=== PATIENT | female | born 1950 | race Caucasian/White ===

== ENCOUNTER 2023-06-01 16:39 | Emergency (ER) | payer MEDICARE, SELFPAY ==
[2023-06-01 16:40] VITALS: BP 101/60; PULSE 58; RESP 16; TEMP 36.3; O2SAT 100; BMI 22.3
[2023-06-01] MEDS: 0.9% Normal Saline (1000mL) 1,000 ML 1000 ML IV (17:50)
[2023-06-01] MEDS: Ondansetron 4 MG/2 ML Vial IV (17:50)
[2023-06-01 17:52] LABS: Absolute Lymphocyte Count 0.53 X10^3/uL (0.83-4.51); Absolute Neutrophil Count 3.1 X10^3/uL (2.0-7.7); Basophil# 0.01 X10^3/uL; Basophil% 0.2 % (0-1); Hematocrit 34.2 % (37-47); Hemoglobin 10.6 g/dL (12.0-15.0); Lymphocyte # 0.53 X10^3/ul (0.83-4.51); Lymphocyte % 12.7 % (19-41); Mean Corpuscular Hgb 27.1 pg (27.0-32.0); Mean Corpuscular Volume 87.5 fL (81-99); Mean Platelet Vol. 10.2 fl (6.2-12.0); Monocyte# 0.51 X10^3/uL; Monocyte% 12.2 % (0-10); NRBC Flagged by Analyzer 0 % (0-5); Neutrophil # 3.11 X10^3/uL (2.7-7.7); Neutrophil % 74.4 % (47-70); POSITIVE DIFFERENTIAL YES; Platelet Count 150 K/mm3 (150-450); RBC Distribution Width CV 15.6 % (11.6-14.6); RBC Distribution Width SD 49.9 fl (35.1-43.9); Red Blood Count 3.91 M/mm3 (4.2-5.4); White Blood Count 4.2 K/mm3 (4.4-11.0)
[2023-06-01 18:02] LABS: Differential Indicated SCAN CRITERIA MET
--- NOTE | 2023-06-01 18:07 | EX.ED.DYSGE1 ---
HPI History of Present Illness Chief Complaint: General Illness Narrative Narrative: Patient presents with nausea vomiting and some epigastric discomfort. This patient does have a history of metastatic ovarian cancer. He was diagnosed and surgery done about 4 years ago. She was on chemotherapy and then maintenance therapy. When the maintenance was stopped the cancer came back about a year later. She has now been on chemotherapy again and the last was about 3 weeks ago. She has not had a history of nausea and vomiting with chemo. She was feeling well until about 11:00 this afternoon. She ate some lunch. She then vomited. Initially it was some food since then she has vomited about 4 more times it has just been liquid. No blood. No diarrhea. She has some epigastric discomfort with this. She had an episode of this about a week or so ago but it was only 1 episode. Her and her also state that she occasionally gets things like this where she will get epigastric discomfort which she describes as indigestion she will vomit once and then symptoms go away. The difference is that she has vomited multiple times with this. She has not had any fever and that something that they check and watch for. She has no chest pain or trouble breathing. She has no urinary symptoms. No back or flank pain. No history of pancreatitis.. Patient has had total hysterectomy but has not had appendectomy or cholecystectomy by history. [facility] Medical History Breast cancer Ovarian cancer Home Medications atorvastatin 10 mg tablet 10 mg PO DAILY 06/01/23 [History Last Taken Unknown] ramipril 10 mg capsule 10 mg PO DAILY 06/01/23 [History Last Taken Unknown] Allergy/AdvReac Type Severity Reaction Status Date / Time Penicillins Allergy Mild Hives Verified 06/01/23 16:43 Sulfa (Sulfonamide Allergy Mild Hives Verified 06/01/23 16:43 Antibiotics) Family History Mother Cancer Father Rheumatoid arthritis Surgical History H/O mastectomy History of radical hysterectomy Social History household members: spouse housing: house Smoking Status: Never smoker ROS ROS ED ROS Narrative A complete review of systems was performed and is negative except as documented in the history of present illness. Some specific details below. Constitutional: No recent fevers or chills. She does not overall feel ill. EYE: No visual complaints or pain. ENT: No difficulty swallowing. No swelling. No pain. She is not having GERD symptoms. CV: No chest pain or palpitations. Respiratory: No dyspnea. No hemoptysis. No difficulty taking breaths. GI: Please see history of present illness. : No frequency dysuria or hematuria. Musculoskeletal: No recent trauma. No pains. Skin: No rash. Nondiaphoretic. Neuro: No weakness or numbness. Endocrine: No polyuria or polydipsia. EXAM Physical Exam Narrative Exam Narrative: CONSTITUTIONAL: Patient is nontoxic in appearance. The patient looks comfortable. HEENT: No notable trauma. Mucous membranes are minimally dry. No thrush. EYES: No conjunctival injection. No proptosis. No icterus. CARDIOVASCULAR: Regular rate. Regular rhythm. No notable murmur. No JVD. RESPIRATORY: No respiratory distress. Breathing is unlabored. No wheezes. No rhonchi. No rales. No pain with a deep breath. GASTROINTESTINAL: Question just mildly distended. Bowel sounds are normal. Very mild epigastric tenderness. Little bit of tenderness in the lower abdomen and possible fullness but she states it hurts a little bit more pressing in the upper abdomen. No guarding. No rebound. No palpable mass. No bruit. GENITOURINARY: No tenderness over the bladder. No CVA tenderness. MUSCULOSKELETAL: Atraumatic. No peripheral edema. No cord. No tenderness along the deep venous system. No asymmetry. NEUROLOGICAL: Patient is alert and appropriate. No focal deficit noted. SKIN: No noted rashes. No diaphoresis. PSYCHIATRIC: Patient is calm. Mood is appropriate. Const Vital Signs: 06/01/23 16:40 06/01/23 17:03 06/01/23 20:51 Temperature 97.3 F L Temperature Source Temporal Pulse Rate 58 L 75 Respiratory Rate 16 16 Respiratory Pattern Normal Blood Pressure 101/60 Blood Pressure Mean 73 Pulse Ox 100 97 Oxygen Delivery Method Room Air Room Air MDM MDM MDM Narrative Medical decision making narrative: My independent interpretation CT of her abdomen shows distended stomach and what looks to be volvulus. This is consistent with final read. Patient has NG placed. She is given Zosyn. Since his CBC shows mildly low white count hemoglobin but normal platelets. Electrolytes show slight high BUN and creatinine. She is given IV fluids here. Glucose is minimally up at 120. Liver function test showed just slight elevations of ALT and alkaline phosphatas. lipase is normal. Urinalysis shows no sign of infection. Our surgeon came down talk with the patient. Patient would prefer to go to [facility] where her surgeons and care have been. I was able to talk to Dr. Rivera on for colorectal surgeon who is excepted the patient. We did discuss the need to somewhat expedite this. Otherwise if we cannot get her up there soon we may have to do surgery here. I went to call them again and we had just gotten a bed for the patient. We are checking to see how long and transport will be. New My independent interpretation of the patient's x-ray done after NG tube shows good placement and final reading is similar. Lab Data Attestation: I reviewed the patient's lab results. Labs: Laboratory Results - last 24 hr 06/01/23 06/01/23 17:43 19:04 WBC 4.2 L RBC 3.91 L Hgb 10.6 L Hct 34.2 L MCV 87.5 MCH 27.1 MCHC 31.0 L RDW Std Deviation 49.9 H RDW Coeff of [place]y 15.6 H Plt Count 150 MPV 10.2 Immature Gran % (Auto) 0.500 Neut % (Auto) 74.4 H Lymph % (Auto) 12.7 L [place] % (Auto) 12.2 H Eos % (Auto) 0.0 Baso % (Auto) 0.2 Absolute Neuts (auto) 3.1 Absolute Lymphs (auto) 0.53 L Nucleated RBC % 0 Differential Comment SEE COMMENT Diff Path Review May foll Platelet Estimate ADEQUATE RBC Morphology N CHROM Anisocytosis RARE Ovalocytes RARE Sodium 137 Potassium 4.3 Chloride 107 Carbon Dioxide 23.0 Anion Gap 7 BUN 37 H Creatinine 1.08 H Estim Creat Clear Calc 39.46 Est GFR (MDRD) Af Amer 64 Est GFR (MDRD) Non-Af 53 L BUN/Creatinine Ratio 34.3 H Glucose 120 H Calcium 9.6 Total Bilirubin 0.60 AST 33 ALT 166 H Alkaline Phosphatase 135 H Total Protein 7.9 Albumin 3.9 Globulin 4.0 Albumin/Globulin Ratio 1.0 Lipase 30 Urine Color Yellow Urine Clarity Sl. Cloudy Urine pH 5.0 Ur Specific [place] 1.020 Urine Protein 30 H Urine Glucose (UA) Normal Urine Ketones 50 H Urine Occult Blood Negative Urine Nitrite Negative Urine Bilirubin 1 H Urine Urobilinogen Normal Ur Leukocyte Esterase 25 H Urine RBC 0 SEEN Urine WBC 0-5 SEEN Ur Squamous Epith Cells 0 SEEN Urine Bacteria 0 SEEN Hyaline Casts 10-25 SEEN Urine Mucus 0 SEEN Radiography Diagnostic Testing: Clinical Impression(s) from Imaging Studies Abdomen/Pelvis CT 06/01/23 18:30 IMPRESSION: Cecal volvulus. Surgical consultation recommended. Electronically Signed: Dwight Wolfe MD at 19:13 EST Reading Location ID and State: [address] [place] [address] Tel , Service support , ADDENDUM: 06/01/231951 IMPRESSION: Cecal volvulus. Surgical consultation recommended. N.B. : The above Results were Read Back by Dwight Wolfe MD to Ryan Rodriguez MD, and understanding confirmed on 06/01/2023 19:45:42 (ET). Electronically Signed: Dwight Wolfe MD at 19:13 EST Reading Location ID and State: [address] [place] [address] Tel , Service support , KUB X-Ray 06/01/23 20:23 IMPRESSION: Enteric tube in the stomach. Electronically Signed: Dwight Wolfe MD at 20:52 EST Reading Location ID and State: [address] [place] [address] Tel , Service support , Discharge Plan Triage Chief Complaint: General Illness ED Provider: Ryan Rodriguez Dx/Rx/DC Orders Clinical Impression: Cecal volvulus, Hx of ovarian cancer, Nausea & vomiting Prescriptions: No Action ramipril 10 mg capsule 10 mg PO DAILY atorvastatin 10 mg tablet 10 mg PO DAILY Primary Care Provider: Shay Cardoza Referrals: Shay Cardoza MD [Primary Care Provider] - Disposition Disposition: Acute Care Hospital Discharge Location: [facility]
[2023-06-01 18:08] LABS: AST(SGOT) 33 U/L (15-37); Alanine Aminotransfer ALT/SGPT 166 U/L (13-56); Albumin, Serum 3.9 g/dL (3.2-5.0); Alkaline Phosphatase 135 U/L (45-117); Anion Gap 7 (5-15); BUN 37 mg/dL (7-18); BUN/Creat Ratio 34.3 RATIO (10-20); Calcium,Total 9.6 mg/dL (8.5-10.1); Chloride 107 mmol/L (98-107); Creatinine, Serum 1.08 mg/dL (0.55-1.02); EST Glomerular Filtration Rate 53 mL/min (>60); Est Glom Filt Rate - Afr Amer 64 mL/min (>60); Estimated Creatinine Clearance 39.46 ml/min; Glucose 120 mg/dL (74-106); Lipase 30 U/L (13-75); Potassium 4.3 mmol/L (3.5-5.1); Protein, Total 7.9 g/dL (6.4-8.2); Sodium Level 137 mmol/L (136-145)
[2023-06-01 18:28] LABS: Anisocytosis RARE; Ovalocyte RARE; Platelet Estimate ADEQUATE (ADEQ); Red Cell Morphology N CHROM NORMAL (NORM C&C)
--- NOTE | 2023-06-01 18:30 | CT_ITS ---
We are attempting to reach an attending provider to discuss findings. An addendum with communication details will be sent when the communication is complete. STUDY: CT ABDOMEN AND PELVIS WITH CONTRAST REASON FOR EXAM: Female, 73 years old. pain, ovarian cancer Hx RADIATION DOSAGE (If Supplied By Facility): CTDIvol = ( 8.82 ) mGy, DLP = ( 412.75 ) mGycm TECHNIQUE: Transaxial images were obtained from the dome of the diaphragm to the symphysis pubis without oral contrast. IV 100mL Isovue-300 was administered. Sagittal and coronal images were reconstructed. Individualized dose optimization techniques were used for this CT. COMPARISON: None. FINDINGS: The visualized lung bases are unremarkable. The visualized portions of the heart are within normal limits. Normal liver. Gallbladder appears distended. No radiodense gallstones are gallbladder wall thickening. Normal spleen. Normal pancreas. Normal bilateral adrenal glands. Normal right kidney. Normal left kidney. Normal visualized stomach. Normal small intestine. Cecal volvulus. Marked distention of the cecum measuring 8.3 cm in diameter. Appendix is not identified. Normal abdominal aorta. Normal inferior vena cava. Normal retroperitoneum. Normal urinary bladder. Normal abdominal wall. Grade 1 spondylolisthesis L4-5. Vacuum disc phenomena L5-S1. CT/Abdomen/Pelvis W IV Cont ONLY IMPRESSION: Cecal volvulus. Surgical consultation recommended. Electronically Signed: Dwight Wolfe MD at 19:13 EST ,
[2023-06-01 19:09] LABS: Bacteria 0 SEEN /hpf (None Seen); Mucous, Urine 0 SEEN /hpf (<or=2+); Red Blood Cells-Urine 0 SEEN /hpf (0-5); Squamous Epithelial Cells - UA 0 SEEN /hpf (5-10)
[2023-06-01 19:10] LABS: Color, Urine Yellow (Yellow); Glucose, Dipstick Normal (Normal); Ketone-Dipstick 50 mg/dl (Negative); Leukocyte Esterase-Dipstick 25 /ul (Negative); Nitrite-Dipstick Negative (Negative); Occult Blood-Urine Negative /ul (Negative); Protein-Dipstick 30 mg/dl (Negative); Urine Clarity Sl. Cloudy (Clear); Urine Urobilinogen Normal (Normal)
[2023-06-01] MEDS: Morphine 4 MG/ML Syringe IV (19:12)
[2023-06-01 19:13] LABS: Urine Bilirubin Dipstick 1 mg/dL (Negative)
[2023-06-01 19:21] LABS: Hyaline Cast 10-25 SEEN /lpf (0-5); White Blood Cells 0-5 SEEN /hpf (0-5)
[2023-06-01] MEDS: Oxymetazoline 0.05% 1 SPRAY SPRAY.BTL 2 SPRAY NASAL (20:14)
--- NOTE | 2023-06-01 20:14 | CON.PCM.SX_ITS ---
Assessment & Plan Assessment/Plan (1) Cecal volvulus: PLAN: I saw and examined the patient. CT scan revealed a cecal volvulus. The patient has very complicated as she is currently undergoing chemotherapy for recurrent ovarian cancer. She was told she will be on chemotherapy the rest of her life. The patient does have a distended stomach on CT scan and they are placing an NG tube and starting antibiotics. I am attempting to transfer her back to [facility] where she has the rest of her care. She would be a difficult surgery especially if there were adhesions to the pelvis. I also explained that I would unlikely reconnect her as she is actively getting chemotherapy and she may require an ileostomy bag. I also explained that she would be at increased risk of wound complication and infection due to her im munosuppression. Patient is requesting transfer to [facility] and I concur. I will try to arrange for ER to ER transfer but I did explain that she would have to have surgical removal of this area. Patient understands and all questions were answered. If transfer is not able to be done in a timely fashion I would have to take her for exploratory laparotomy with right hemicolectomy here. I explained that I would likely place retention sutures and perform ileostomy due to her immunosuppression. Evan Maradiaga MD Pager: [facility] [address] [place] [address], [address] [place] [address] Office: HPI Consult Data Date of Consult: 06/01/23 HPI Narrative HPI Narrative: ROB HOGUE, is a 73 F who presents with right lower quadrant pain. Patient s tarted vomiting this morning and has had several episodes of vomiting. The patient's pain is reported on the right side. The patient is currently undergoing chemotherapy for recurrent ovarian cancer. Her last treatment was 3 weeks ago. She sees her oncologist on and her surgeon on Wednesday of this week at [facility]. [facility] Medical History Breast cancer Ovarian cancer Home Medications atorvastatin 10 mg tablet 10 mg PO DAILY 06/01/23 [History Last Taken Unknown] ramipril 10 mg capsule 10 mg PO DAILY 06/01/23 [History Last Taken Unknown] Allergy/AdvReac Type Severity Reaction Status Date / Time Penicillins Allergy Mild Hives Verified 06/01/23 16:43 Sulfa (Sulfonamide Allergy Mild Hives Verified 06/01/23 16:43 Antibiotics) Family History Mother Cancer Father Rheumatoid arthritis Surgical History H/O mastectomy History of radical hysterectomy Social History household members: spouse housing: house Smoking Status: Never smoker ROS Constitutional Constitutional: Reports anorexia; Denies chills or fatigue Eyes Eyes: Denies change in vision ENT HEENT: Denies abnormal hearing Cardiovascular Cardiovascular: Denies chest pain Respiratory/Chest Respiratory/Chest: Denies cough or dyspnea Gastrointestinal Gastrointestinal: Reports abdominal pain, nausea and vomiting; Denies coffee ground emesis or rectal bleeding Genitourinary Genitourinary: Denies change in urinary stream Musculoskeletal Musculoskeletal: Denies abnormal gait Integumentary Integumentary: Denies new lesions Neurologic Neurologic: Denies abnormal gait Psychiatric Psychiatric: Denies anxiety Endocrine Endocrinology: Denies heat intolerance Physical Exam Const alert and oriented x3 HEENT normocephalic Eyes PERRL Lymph Lymphatic: no lymphadenopathy noted Resp normal respiratory effort Cardio Rate: regular rate Rhythm: regular rhythm GI soft to palpation Inspection: abdominal distention Palpation: tender RLQ and RUQ Extremity normal to inspection Lab / Micro Data 06/01/23 17:43 06/01/23 17:43 Labs: Laboratory Results - last 24 hr 06/01/23 17:43: WBC 4.2 L, RBC 3.91 L, Hgb 10.6 L, Hct 34.2 L, MCV 87.5, MCH 27.1, MCHC 31.0 L, RDW Std Deviation 49.9 H, RDW Coeff of Corky 15.6 H, Plt Count 150, MPV 10.2, Immature Gran % (Auto) 0.500, Neut % (Auto) 74.4 H, Lymph % (Auto) 12.7 L, [place] % (Auto) 12.2 H, Eos % (Auto) 0.0, Baso % (Auto) 0.2, Absolute Neuts (auto) 3.1, Absolute Lymphs (auto) 0.53 L, Nucleated RBC % 0, Differential Comment SEE COMMENT, Diff Path Review May foll, Platelet Estimate ADEQUATE, RBC Morphology N CHROM, Anisocytosis RARE, Ovalocytes RARE, Sodium 137, Potassium 4.3, Chloride 107, Carbon Dioxide 23.0, Anion Gap 7, BUN 37 H, Creatinine 1.08 H, Estim Creat Clear Calc 39.46, Est GFR (MDRD) Af Amer 64, Est GFR (MDRD) Non-Af 53 L, BUN/Creatinine Ratio 34.3 H, Glucose 120 H, Calcium 9.6, Total Bilirubin 0.60, AST 33, ALT 166 H, Alkaline Phosphatase 135 H, Total Protein 7.9, Albumin 3.9, Globulin 4.0, Albumin/Globulin Ratio 1.0, Lipase 30 06/01/23 19:04: Urine Color Yellow, Urine Clarity Sl. Cloudy, Urine pH 5.0, Ur Specific [place] 1.020, Urine Protein 30 H, Urine Glucose (UA) Normal, Urine Ketones 50 H, Urine Occult Blood Negative, Urine Nitrite Negative, Urine Bilirubin 1 H, Urine Urobilinogen Normal, Ur Leukocyte Esterase 25 H, Urine RBC 0 SEEN, Urine WBC 0-5 SEEN, Ur Squamous Epith Cells 0 SEEN, Urine Bacteria 0 SEEN, Hyaline Casts 10-25 SEEN, Urine Mucus 0 SEEN Imagaing Radiology Impression Abdomen/Pelvis CT 06/01/23 18:30 IMPRESSION: Cecal volvulus. Surgical consultation recommended. Electronically Signed: Dwight Wolfe MD at 19:13 EST Reading Location ID and State: [facility] / [place] Tel , Service support , ADDENDUM: 06/01/231951 IMPRESSION: Cecal volvulus. Surgical consultation recommended. N.B. : The above Results were Read Back by Dwight Wolfe MD to Ryan Rodriguez MD, and understanding confirmed on 06/01/2023 19:45:42 (ET). Electronically Signed: Dwight Wolfe MD at 19:13 EST ,
--- NOTE | 2023-06-01 20:23 | RAD_ITS ---
STUDY: X-RAY - ABDOMEN/PELVIS REASON FOR EXAM: Female, 73 years old. ng tube -- KUB with both diaphragms for NG/OG Verification TECHNIQUE: Single AP view of the abdomen / pelvis. COMPARISON: None. FINDINGS: Normal visualized lung bases. Gas-filled loops of bowel. Lower abdomen not included within the [id number]. No free air. Tube in the stomach. The visualized liver, spleen and kidneys are grossly normal in size and morphology. Normal soft tissue structures. Normal visualized osseous structures. RAD/Abdomen Single View (Portable) IMPRESSION: Enteric tube in the stomach. Electronically Signed: Dwight Wolfe MD at 20:52 EST ,
[2023-06-01] MEDS: Piperacil/Tazobactam 4.5 GM in 0.9% Normal Saline (100mL MB+) 100 ML IV (20:50)
[2023-06-01 20:51] VITALS: PULSE 75; RESP 16; O2SAT 97
[2023-06-01 22:00] VITALS: PULSE 65; RESP 12; O2SAT 98
[2023-06-02 01:26] VITALS: BP 135/86; PULSE 72; RESP 17; O2SAT 99
--- NOTE | 2023-06-02 02:14 | NURSING ---
ORIGINALLY SET UP TRANSPORT WITH [facility] AND THEY OUTSOURCED THE RIDE TO [facility] WITH A 2AM ETA P/U. AT 0205 [facility] CALLED AND STATED THEY HAD TO CANCEL OUR TRIP DUE TO ISSUES WITH ONE OF THEIR EMT'S. I CALLED [facility] BACK AND SET UP TRANSPORT AND WAS GIVEN A 7AM ETA FOR [facility].
[2023-06-02 02:26] VITALS: BP 126/78; PULSE 67; RESP 15; O2SAT 96
[2023-06-02 06:00] VITALS: BP 125/68; PULSE 71; RESP 15; O2SAT 95
[2023-06-02 07:24] VITALS: BP 125/68; PULSE 71; RESP 15; TEMP 36.6; O2SAT 95
[2023-06-03 08:45] LABS: Pathologist Review Reviewed
== END 2023-06-02 07:52 | disposition short-term general hospital (02) ==
PROVIDERS: Emergency Provider Emergency Medicine; PCP Family Medicine; Visit Provider Emergency Medicine
DX: K56.2 Volvulus (principal); C56.9 Malignant neoplasm of unspecified ovary; R11.2 Nausea with vomiting, unspecified; Z79.899 Other long term (current) drug therapy
CPT/HCPCS: 36591; 74018; 74177; 80053; 81001; 83690; 85025; 96361; 96365; 96375; 99283; J7030; J7050; Q9967; A4216; J2405

== ENCOUNTER 2024-11-03 09:17 | Outpatient (CLI) | payer MEDICARE, OTHER, SELFPAY ==
[2024-11-03 09:45] VITALS: BP 106/57; PULSE 69; RESP 16; TEMP 36.5; O2SAT 100; BMI 18.1
[2024-11-03 10:15] VITALS: BP 107/54; PULSE 65; RESP 16; TEMP 36.8
[2024-11-03 11:19] VITALS: BP 107/59; PULSE 65; RESP 16; TEMP 36.6; O2SAT 100
== END 2024-11-03 23:59 | disposition home or self-care (01) ==
PROVIDERS: PCP Family Medicine; Referring Provider Internal Medicine Hematology & Oncology; Visit Provider Internal Medicine Hematology & Oncology
DX: D50.0 Iron deficiency anemia secondary to blood loss (chronic) (principal)
CPT/HCPCS: 36430; 86850; 86900; 86901; 86920; 86922; P9016; A4216

== ENCOUNTER 2024-11-28 11:03 | Outpatient (CLI) | payer MEDICARE, OTHER, SELFPAY ==
[2024-11-28 11:29] VITALS: BP 115/60; PULSE 74; RESP 16; TEMP 36.1; O2SAT 100; BMI 18.1
[2024-11-28 11:53] VITALS: BP 107/67; PULSE 65; RESP 16; TEMP 36.2; O2SAT 99
[2024-11-28 12:53] VITALS: BP 111/57; PULSE 61; RESP 16; TEMP 36.1; O2SAT 98
[2024-11-28 13:40] VITALS: BP 115/59; PULSE 65; RESP 16; TEMP 36.1; O2SAT 98
== END 2024-11-28 23:59 | disposition home or self-care (01) ==
PROVIDERS: PCP Family Medicine; Referring Provider Internal Medicine Hematology & Oncology; Visit Provider Internal Medicine Hematology & Oncology
DX: D50.0 Iron deficiency anemia secondary to blood loss (chronic) (principal)
CPT/HCPCS: 36430; 86850; 86900; 86901; P9016

== ENCOUNTER 2025-01-07 15:10 | Emergency (ER) | payer MEDICARE, OTHER, SELFPAY ==
[2025-01-07 15:11] VITALS: BP 123/54; PULSE 56; RESP 16; TEMP 36; O2SAT 100; BMI 18.8
--- NOTE | 2025-01-07 15:20 | CT_ITS ---
PROCEDURE: ABDOMEN/PELVIS W IV CONT ONLY 01/07/2025 REASON FOR EXAM: ABDOMINAL PAIN AND VOMITING TECHNIQUE: ABDOMEN/PELVIS W IV CONT ONLY Coronal and Sagittal reconstruction series were provided. CONTRAST: Isovue 370 VOLUME: 75 mL One or more dose reduction techniques were used (e.g., Automated exposure control, adjustment of the mA and/or kV according to patient size, use of iterative reconstruction technique. RADIATION DOSE SUMMARY: CTDlvol: 6.4 mGy DLP: 331 mGycm COMPARISON: CT abdomen and pelvis 06/01/2023 FINDINGS: Lung bases: Unremarkable Liver: Unremarkable Gallbladder: No radiodense stones. There is trace pericholecystic fluid. Spleen: Unremarkable Pancreas: Normal size without evidence of mass surrounding inflammation or ductal dilation. Adrenals: Bilateral thickening without discrete nodularity Kidneys: No hydronephrosis or stone. Subcentimeter hypodensities in both kidneys are too small to characterize. Bladder: Circumferential wall thickening Reproductive Organs: Prior hysterectomy. Adnexal regions are unremarkable. Bowel: Postoperative changes of the colon. There are loops of bowel in the lower abdomen measuring up to 4.0 cm in diameter and containing fecalized contents, favored to represent small bowel loops. There is wall thickening of the near entirety of the collapsed bowel loops. Lymph nodes: No suspicious lymph node enlargement. Vasculature: Moderate diffuse atherosclerotic calcifications are noted. Peritoneum / Retroperitoneum: No definite extraluminal or free air. Free fluid is present throughout the abdomen and pelvis Bones: Grade 1 anterolisthesis of L4 on L5, unchanged. Multilevel degenerative changes of the spine. Soft tissues: Postoperative changes of the midline abdominal wall CT/Abdomen/Pelvis W IV Cont ONLY IMPRESSION: 1. Dilated loops of bowel in the lower abdomen, favored to represent small bow el, and worrisome for small bowel obstruction. Recommend Surgical consultation. 2. Free fluid throughout the abdomen and pelvis, which may be reactive and/or malignant. 3. Trace pericholecystic fluid is likely related to extension of ascites as th ere are no radiodense stones or significant gallbladder wall thickening. The critical information above was relayed directly by me by telephone to Ben Hayes on 01/07/2025 at 5:17 pm with readback verification. Reading Location: [id number]
--- NOTE | 2025-01-07 15:21 | EKG12_ITS ---
Test Reason : GENERAL Blood Pressure : */* mmHG Vent. Rate : 75 BPM Atrial Rate : 75 BPM P-R Int : 112 ms QRS Dur : 78 ms QT Int : 386 ms P-R-T Axes : -19 47 63 degrees QTcB Int : 431 ms Normal sinus rhythm Normal ECG Confirmed by Pablo Fong ([id number]), book or script editor BRANDON ESPANA ([id number]) on 01/09/2025 1:12:42 PM Referred By: Ben Hayes Confirmed By: Pablo Fong
--- NOTE | 2025-01-07 15:22 | EDS_ITS ---
HPI History of Present Illness Chief Complaint: Nausea/Vomiting Detail of Chief Complaint: Abdominal pain and vomiting Informant: patient and spouse/S.O. Narrative Narrative: Patient presents with abdominal pain in the epigastric region that started this morning. Patient's had 4 episodes of emesis that was green to yellow in color. She denies any blood in the emesis. She denies blood in her stool or black tarry stool. Patient currently being treated for colon cancer with daily oral chemotherapy. Patient has history a year ago of a bowel obstruction that really resolved with conservative measures and did not require any surgical intervention. Patient states that she has not had any type of surgical intervention for her colon cancer. She denies urinary symptoms. She denies fever. Patient also with prior history of ovarian cancer and history of breast cancer [facility] Medical History Breast cancer Ovarian cancer Home Medications ?Medication ?Instructions ?Recorded ?Last Taken ?Type olaparib 150 mg tablet (Lynparza) 300 mg PO BID Unknown History sennosides 8.6 mg-docusate sodium 2 tab-cap PO QDAY MI N constipation 11/03/24 Unknown History 50 mg tablet (Senexon-S) omeprazole 40 mg capsule,delayed 40 mg PO DAILY Unknown History release Allergy/AdvReac Type Severity Reaction Status Date / Time Penicillins Allergy Mild Hives Verified 11/28/24 11:28 Sulfa (Sulfonamide Allergy Mild Hives Verified 11/28/24 11:28 Antibiotics) Family History Mother Cancer Father Rheumatoid arthritis Surgical History H/O mastectomy History of radical hysterectomy Social History household members: spouse housing: house Smoking Status: Never smoker ROS ROS ED Review of Systems ROS Unobtainable: other Constitutional Constitutional ED: Reports lethargy; Denies chills, fever(s), sweats or weight loss Eyes Eyes: Denies blurry vision, change in vision or diplopia ENT ENT ED: Denies rhinorrhea or sore throat Cardiovascular Cardiovascular: Denies chest pain, orthopnea or racing heartbeat Respiratory/Chest Respiratory/Chest: Denies cough, dyspnea, dyspnea on exertion, orthopnea or sputum Gastrointestinal Gastrointestinal: Reports abdominal pain, nausea and vomiting; Denies diarrhea Genitourinary Genitourinary ED: Denies dysuria, hematuria or urinary frequency Musculoskeletal Musculoskeletal: Denies arthralgias, back pain, myalgias or neck pain Integumentary Denies abscess, Abrasions or rash Neurologic Neurologic: Denies headache(s) or weakness Psychiatric Psychiatric: Denies anxiety, depression or suicidal thoughts Endocrine Endocrinology: Denies polydipsia, polyphagia or polyuria Hematologic/Lymphatic Hematologic/Lymphatic: Denies easy bleeding, easy bruising or lymphadenopathy Allergic/Immunologic Allergic/Immunologic ED: Denies mouth swelling, tongue swelling or urticaria EXAM Physical Exam Const Vital Signs: 01/07/25 15:11 Temperature 96.8 F L Temperature Source Temporal Pulse Rate 56 L Respiratory Rate 16 Blood Pressure 123/54 H Blood Pressure Mean 77 Pulse Ox 100 Oxygen Delivery Method Room Air Positive well nourished and well developed General Appearance ED: well developed and NAD HEENT Reports TM's clear and moist mucous membranes normocephalic and atraumatic; Negative for trauma or tenderness Tympanic Membrane ED: Yes TM's clear Eyes PERRL and EOMs intact bilaterally General Eye ED: Negative for pale conjunctiva or scleral icterus Neck no lymphadenopathy, supple and no JVD General: Negative for tenderness Chest Wall inspection of chest normal and palpation of chest normal Chest: Negative for tenderness Resp normal respiratory effort and clear to auscultation bilaterally Effort and Inspection: Negative for respiratory distress or pain with movement Auscultation: Negative for rhonchi, wheezes or diminished lung sounds Cardio regular rate, regular rhythm, S1 normal heart sound, S2 normal heart sound and no murmurs Peripheral Pulses: pulses 2+ throughout GI soft to palpation, non-distended and no masses; Negative for normal to inspection, nondistended, normoactive bowel sounds GI Narrative: Tenderness to palpation over the epigastric region with some guarding. There is no rebound or rigidity. Slightly diminished bowel sounds Back/Spine no CVA tenderness and no thoracic nor lumbar tenderness Extremity normal to inspection General Extremety ED: Negative for edema General Extremity: Negative for edema Neuro oriented x3, CN's II-XII intact bilaterally, no sensory deficits noted and gait normal Sensorium / Orientation: awake, alert, oriented to person, oriented to place and oriented to time Motor Exam: strength 5/5 throughout and strength abnormal Psych mental status grossly normal Skin no rashes or lesions noted and no wounds MDM MDM MDM Narrative Medical decision making narrative: Patient presents with abdominal pain and vomiting. 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 Patient states that a few months ago she was admitted to [facility] with a small bowel obstruction that resolved with conservative measures. IV line established. Patient was medicated with Zofran. She did not want thing for pain initially. EKG obtained on arrival showed a sinus rhythm with rate of 75 bpm with no acute ST segment changes. CBC with differential shows a white count of 6.3 with hemoglobin 11.2 and platelet count of 128. Chemistry is unremarkable. She had a lactate of less than 1. AST was 34 and ALT 36 with alk phos of 119. Urinalysis unremarkable. CT scan of the abdomen pelvis with IV contrast showed a small bowel obstruction with dilated loops of bowel in the lower abdomen. There was free fluid throughout the abdomen. This may be reactive or malignant. Patient also had trace pericholecystic fluid likely related to extension of ascites as there is no radiodense stones or significant gallbladder wall thickening. I discussed results with patient and her and they would like to be transferred to [facility]. I discussed case with [facility] general surgery who accepted transfer of patient to their facility. They are not sure when they will have a bed available. They were in agreement with placing an NG tube which was done to low intermittent suction. I also spoke with Dr. Cardozo who is on-call for general surgery for our facility. He was made aware of patient's presence in the emergency department and that her requested that she be transferred to [facility] and she has been accepted. It is unclear when they will have a bed available. If she should decompensate or need admission here until transfer to tertiary care center that he would be aware. Lab Data Attestation: I reviewed the patient's lab results. Labs: Laboratory Results - last 24 hr 01/07/25 01/07/25 15:31 15:39 WBC 6.3 RBC 3.77 L Hgb 11.2 L Hct 35.1 L MCV 93.1 MCH 29.7 MCHC 31.9 L RDW Std Deviation 64.5 H RDW Coeff of Corky 18.8 H Plt Count 128 L MPV 10.2 Immature Gran % (Auto) 0.500 Neut % (Auto) 83.7 H Lymph % (Auto) 9.8 L Harlan % (Auto) 5.5 Eos % (Auto) 0.2 Baso % (Auto) 0.3 Absolute Neuts (auto) 5.3 Absolute Lymphs (auto) 0.62 L Nucleated RBC % 0 Sodium 139 Potassium 3.9 Chloride 104 Carbon Dioxide 23.4 Anion Gap 11 BUN 22 H Creatinine 0.70 Estim Creat Clear Calc 47.77 L Est GFR (MDRD) Non-Af 90 BUN/Creatinine Ratio 31.2 H Glucose 120 H Lactic Acid < 1.0 Calcium 9.4 Total Bilirubin 0.55 AST 34 H ALT 36 H Alkaline Phosphatase 119 H Troponin T High Sens 12 Total Protein 7.2 Albumin 4.0 Globulin 3.2 Albumin/Globulin Ratio 1.3 Lipase 23 Urine Color Yellow Urine Clarity Clear Urine pH 7.0 Ur Specific [place] 1.010 Urine Protein 15 H Urine Glucose (UA) Normal Urine Ketones Negative Urine Occult Blood Negative Urine Nitrite Negative Urine Bilirubin Negative Urine Urobilinogen Normal Ur Leukocyte Esterase Negative Urine RBC 0 SEEN Urine WBC 0-5 SEEN Ur Squamous Epith Cells 0-5 SEEN Urine Bacteria 0 SEEN Hyaline Casts 0-5 SEEN Urine Mucus 1+ Radiography Diagnostic Testing: Clinical Impression(s) from Imaging Studies Abdomen/Pelvis CT 01/07/25 15:20 IMPRESSION: 1. Dilated loops of bowel in the lower abdomen, favored to represent small bowel, and worrisome for small bowel obstruction. Recommend Surgical consultation. 2. Free fluid throughout the abdomen and pelvis, which may be reactive and/or malignant. 3. Trace pericholecystic fluid is likely related to extension of ascites as there are no radiodense stones or significant gallbladder wall thickening. The critical information above was relayed directly by me by telephone to Ben Hayes on 01/07/2025 at 5:17 pm with readback verification. Reading Location: [id number] Discharge Plan Triage Chief Complaint: Nausea/Vomiting ED Provider: Ben Hayes Dx/Rx/DC Orders Clinical Impression: Abdominal pain, Small bowel obstruction Prescriptions: No Action sennosides-docusate sodium [Senexon-S] 8.6-50 mg tablet 2 tab-cap PO QDAY PRN (Reason: constipation) Lynparza 150 mg tablet 300 mg PO BID omeprazole 40 mg capsule,delayed release(DR/EC) 40 mg PO DAILY Primary Care Provider: Shay Cardoza Referrals: Shay Cardoza MD [Primary Care Provider] - Print Language: Portuguese Disposition Disposition: DC/Tx to Another Type of HCF
[2025-01-07] MEDS: 0.9% Normal Saline (1000mL) 1,000 ML 125 ML IV (15:38)
[2025-01-07 15:46] LABS: Hematocrit 35.1 % (37-47); Hemoglobin 11.2 g/dL (12.0-15.0); Immature Granulocytes Count 0.030 X10^3/uL (0.0-0.0); Mean Corp Hgb Conc 31.9 g/dL (32-36); Mean Corpuscular Volume 93.1 fL (81-99); Mean Platelet Vol. 10.2 fl (6.2-12.0); NRBC Flagged by Analyzer 0 % (0-5); Platelet Count 128 K/mm3 (150-450); RBC Distribution Width CV 18.8 % (11.6-14.6); RBC Distribution Width SD 64.5 fl (35.1-43.9); Red Blood Count 3.77 M/mm3 (4.2-5.4); White Blood Count 6.3 K/mm3 (4.4-11.0)
--- OUTSIDE RECORDS SUMMARY | 2025-01-07 16:01 | XMS RPT_ITS | CCD ---
Author Organization [facility] Care Team Providers Care Larriman Name Role Phone Shay Cardoza MD Primary Care Provider Justus SOSA, Doreen Unavailable Unavailable Shay Cardoza MD Primary Care Provider Justus SOSA, Doreen Unavailable Unavailable Laura Alfonso RN Unavailable Js Cruz DO Unavailable Fang Cote MD Unavailable Justus SOSA, Doreen Unavailable Unavailable Laura Alfonso RN Unavailable Dr. Shay Cardoza Primary Care Provider Dr. Cristofer Rodriguez Emergency Provider Dr. Saqib Maradiaga Attending Provider Shay Cardoza MD Primary Care Provider Champ Nichols Unavailable Shay Cardoza MD Primary Care Provider Vesna Decker RN Unavailable Unavailaniceto Ravi APRN.Karishma AMAYA Unavailable Bianca Duncan PA-C Unavailable Prachi Cline RN Unavailable Prachi Cline RN Unavailable KAREN VICENTE Admitting Unavailable KAREN VICENTE Attending Unavailable SHAY CARDOZA Primary Care Unavailable ALBERTO COBOS Attending Unavailable WU MOE Referring Unavailable SHAY CARDOZA Primary Care Unavailable MAIK AC Admitting Unavailable MAIK AC Attending Unavailable NANI, SHAY A Primary Care Unavailable YOUNG, CORINNE A Admitting Unavailable YOUNG, CORINNE A Attending Unavailable NANI, SHAY A Primary Care Unavailable YOUNG, CORINNE A Admitting Unavailable YOUNG, CORINNE A Attending Unavailable NANI, SHAY A Primary Care Unavailable YOUNG, CORINNE A Admitting Unavailable YOUNG, CORINNE A Attending Unavailable NANI, SHAY A Primary Care Unavailable NITZ, KAREN Admitting Unavailable NITZ, KAREN Attending Unavailable NANI, SHAY A Primary Care Unavailable NANI, SHAY A Primary Care Unavailable ANTHONY MCLAIN Attending Unavailable NITZ, KAREN Admitting Unavailable NITZ, KAREN Attending Unavailable NANI, SHAY A Primary Care Unavailable Rocael MAYFIELD, Fang Huff Unavailable Raffy SOSA, Marian Unavailable CRISTOFER GUEVARA Attending Unavailable ANUP RAE Admitting Unavailable NANI, SHAY A Primary Care Unavailable FANG COTE Attending Unavailable FANG COTE Consulting Unavailable NANI, SHAY A Primary Care Unavailable SAQIB TAPIA Admitting Unavailable FANG COTE Attending Unavailable NANI, SHAY A Primary Care Unavailable Nani MAYFIELD, Dr. Day Primary Care Provider Eve TERAN, Dr. Benitez Attending Provider Eve TERAN, Dr. Benitez Referring Provider Raffy SOSA, Marian Unavailable Hamidaoble CERTIFIED ORTHOTIST/PEDORTHIST.JOSE LUIS, Karishma Unavailable Bianca Duncan PA-C Unavailable Breonna CERTIFIED ORTHOTIST/PEDORTHIST.JOSE LUIS, Karishma Unavailable Dakota BOUCHER Bianca Unavailable Js Cruz Attending Unavailable Js Cruz Referring Unavailable Shay Cardoza Primary Care Unavailable Js Cruz Referring Unavailable Shay Cardoza Primary Care Unavailable Js Cruz Attending Unavailable SHAY CARDOZA A Primary Care Unavailable MODESTO LAIRD Referring Unavailabl e NANI, SHAY A Primary Care Unavailable MODESTO LAIRD Referring Unavailabl e NANI, SHAY A Primary Care Unavailable MASCI, JS A Attending Unavailable NANI, SHAY A Primary Care Unavailable NANI, SHAY A Primary Care Unavailable MASCI, JS A Referring Unavailable NANI, SHAY A Primary Care Unavailable MASCI, JS A Referring Unavailable NANI, SHAY A Primary Care Unavailable NANI, SHAY A Attending Unavailable NANI, SHAY A Primary Care Unavailable MASCI, JS A Referring Unavailable NANI, SHAY A Primary Care Unavailable MASCI, JS A Referring Unavailable NANI, SHAY A Primary Care Unavailable NANI, SHAY A Primary Care Unavailable MASCI, JS A Referring Unavailable NANI, SHAY A Primary Care Unavailable MASCI, JS A Referring Unavailable NANI, SHAY A Primary Care Unavailable MASCI, JS A Referring Unavailable NANI, SHAY A Primary Care Unavailable MASCI, JS A Referring Unavailable MASCI, JS A Attending Unavailable NANI, SHAY A Primary Care Unavailable MASCI, JS A Referring Unavailable NANI, SHAY A Primary Care Unavailable MASCI, JS A Referring Unavailable NANI, SHAY A Primary Care Unavailable MASCI, JS A Referring Unavailable NANI, SHAY A Primary Care Unavailable MASCI, JS A Referring Unavailable NANI, SHAY A Primary Care Unavailable MASCI, JS A Referring Unavailable NANI, SHAY A Primary Care Unavailable MASCI, JS A Referring Unavailable NANI, SHAY A Primary Care Unavailable KARISHMA FRANZ Referring Unavailable NANI, SHAY A Primary Care Unavailable MASCI, JS A Referring Unavailable MASCI, JS A Attending Unavailable NANI, SHAY A Primary Care Unavailable MASCI, JS A Referring Unavailable NANI, SHAY A Primary Care Unavailable MASCI, JS A Referring Unavailable NANI, SHAY A Primary Care Unavailable MASCI, JS A Referring Unavailable NANI, SHAY A Primary Care Unavailable MASCI, JS A Referring Unavailable NANI, SHAY A Primary Care Unavailable MASCI, JS A Referring Unavailable NANI, SHAY A Primary Care Unavailable MASCI, JS A Referring Unavailable NANI, SHAY A Primary Care Unavailable MASCI, JS A Referring Unavailable NANI, SHAY A Primary Care Unavailable MASCI, JS A Referring Unavailable AMY HERNANDEZ Attending Unavailable NANI, SHAY A Primary Care Unavailable MASCI, JS A Referring Unavailable NANI, SHAY A Primary Care Unavailable MASCI, JS A Referring Unavailable MASCI, JS A Attending Unavailable NANI, SHAY A Primary Care Unavailable MASCI, JS A Referring Unavailable NANI, SHAY A Primary Care Unavailable MASCI, JS A Referring Unavailable NANI, SHAY A Primary Care Unavailable MASCI, JS A Referring Unavailable NANI, SHAY A Primary Care Unavailable MASCI, JS A Referring Unavailable WU MOE Attending Unavailable NANI, SHAY A Primary Care Unavailable NANI, SHAY A Primary Care Unavailable NANI, SHAY A Primary Care Unavailable NANI, SHAY A Primary Care Unavailable NANI, SHAY A Primary Care Unavailable NANI, SHAY A Primary Care Unavailable FANG COTE Referring Unavailable FANG COTE Attending Unavailable NANI, SHAY A Primary Care Unavailable MASCI, JS A Referring Unavailable NANI, SHAY A Primary Care Unavailable MASCI, JS A Referring Unavailable NANI, SHAY A Primary Care Unavailable MASCI, JS A Referring Unavailable KASI WELCH Attending Unavailable MASCI, JS A Referring Unavailable NANI, SHAY A Primary Care Unavailable MASCI, JS A Referring Unavailable NANI, SHAY A Primary Care Unavailable NANI, SHAY A Primary Care Unavailable MASCI, JS A Referring Unavailable NANI, SHAY A Primary Care Unavailable MASCI, JS A Referring Unavailable NANI, SHAY A Primary Care Unavailable MASCI, JS A Referring Unavailable NANI, SHAY A Primary Care Unavailable NANI, SHAY A Primary Care Unavailable NANI, SHAY A Primary Care Unavailable KASI WELCH Referring Unavailable NANI, SHAY A Primary Care Unavailable KASI WELCH Referring Unavailable NANI, SHAY A Primary Care Unavailable MASCI, JS A Referring Unavailable NANI, SHAY A Primary Care Unavailable MASCI, JS A Referring Unavailable NANI, SHAY A Primary Care Unavailable MASCI, JS A Referring Unavailable NANI, SHAY A Primary Care Unavailable MASCI, JS A Referring Unavailable MASCI, JS A Attending Unavailable NANI, SHAY A Primary Care Unavailable MASCI, JS A Referring Unavailable MASCI, JS A Attending Unavailable NANI, SHAY A Primary Care Unavailable NANI, SHAY A Attending Unavailable NANI, SHAY A Primary Care Unavailable MASCI, JS A Referring Unavailable NANI, SHAY A Primary Care Unavailable MASCI, JS A Referring Unavailable NANI, SHAY A Primary Care Unavailable NANI, SHAY A Primary Care Unavailable NANI, SHAY A Primary Care Unavailable NANI, SHAY A Primary Care Unavailable MASCI, JS A Referring Unavailable NANI, SHAY A Primary Care Unavailable MASCI, JS A Referring Unavailable NANI, SHAY A Primary Care Unavailable MASCI, JS A Referring Unavailable NANI, SHAY A Primary Care Unavailable MASCI, JS A Referring Unavailable NANI, SHAY A Primary Care Unavailable MASCI, JS A Referring Unavailable NANI, SHAY A Primary Care Unavailable FANG COTE Attending Unavailable NANI, SHAY A Primary Care Unavailable KASI WELCH Referring Unavailable NANI, SHAY A Primary Care Unavailable MASCI, JS A Referring Unavailable NANI, SHAY A Primary Care Unavailable MASCI, JS A Referring Unavailable MASCI, JS A Attending Unavailable NANI, SHAY A Primary Care Unavailable MASCI, JS A Referring Unavailable NANI, SHAY A Primary Care Unavailable MASCI, JS A Referring Unavailable NANI, SHAY A Primary Care Unavailable MASCI, JS A Referring Unavailable NANI, SHAY A Primary Care Unavailable MASCI, JS A Referring Unavailable MASCI, JS A Attending Unavailable NANI, SHAY A Primary Care Unavailable MASCI, JS A Referring Unavailable NANI, SHAY A Primary Care Unavailable MASCI, JS A Referring Unavailable NANI, SHAY A Primary Care Unavailable MASCI, JS A Referring Unavailable NANI, SHAY A Primary Care Unavailable MASCI, JS A Referring Unavailable NANI, SHAY A Primary Care Unavailable MASCI, JS A Referring Unavailable WU MOE Attending Unavailable NANI, SHAY A Primary Care Unavailable MASCI, JS A Referring Unavailable NANI, SHAY A Primary Care Unavailable MASCI, JS A Referring Unavailable NANI, SHAY A Primary Care Unavailable MASCI, JS A Attending Unavailable NANI, SHAY A Primary Care Unavailable MASCI, JS A Referring Unavailable NANI, SHAY A Primary Care Unavailable MASCI, JS A Referring Unavailable Allergies Allergy Classification Reported Allergen(s) Allergy Type Date of Onset Reaction(s) Facility Penicillins (antibiotic) (3 sources) Penicillins Drug Allergy 5 [facility] Work Phone: Sulfonamides (antibiotic) (3 sources) Sulfonamides (Antibiotic) Drug Allergy 5 [facility] (20 sources) Penicillins; Translations: [PENICILLINS] Drug Allergy 5 [facility] Work Phone: (20 sources) Sulfonamides (Antibiotic); Translations: [SULFA (SULFONAMIDE ANTIBIOTICS)] Drug Allergy [address] [facility] Work Phone: (20 sources) Penicillins Drug Allergy [address] [facility] Work Phone: (4 sources) Penicillins Allergy to substance 3 [facility] (4 sources) Sulfonamides (Antibiotic) Allergy to substance 3 [facility] (20 sources) Penicillins Drug Allergy 5 [facility] Work Phone: (1 source) Penicillins Drug allergy (disorder) 5 [facility] (1 source) Sulfonamides (Antibiotic) Drug allergy (disorder) 5 [facility] Medications Current Medications Medication Drug Class(es) Dates Sig (Normalized) Sig (Original) betamethasone 0.5 mg/ml / clotrimazole 10 mg/ml topical cream (2 sources) Azole Antifungal, Corticosteroid Start: 10-01-2021 End: 10-31-2021 clotrimazole-betam ethasone (LOTRISONE) cream Indications: Vulvar itching Apply 1 application to affected area once daily. Apply to affected area once daily. After about a week, please decrease use to 2-3 times/week and then eventually once a week. 15 g 0 10/01/2021 10/31/2021 Active Comment on above: Apply 1 application to affected area once daily. Apply to affected area once daily. After about a week, please decrease use to 2-3 times/week and then eventually once a week. bisacodyl 10 mg rectal suppository (20 sources) Stimulant Laxative Start: 10-14-2024 bisacodyl (DULCOLAX) 10 mg supp 1 suppository by RECTAL route once daily as needed for constipation. 5 suppository 2 10/14/2024 Active ciprofloxacin 500 mg oral tablet (5 sources) Quinolone Antimicrobial Start: 12-03-2022 End: 12-10-2022 take 1 tablet by mouth twice daily ciprofloxacin HCl (CIPRO) 500 mg tablet Indications: Suprapubic pain, acute , Abnormal finding on urinalysis Take 1 tablet by mouth twice daily for 7 days. 14 tablet 0 12/03/2022 12/10/2022 Active Comment on above: Take 1 tablet by casey th twice daily for 7 days. docusate sodium 50 mg / sennosides, intermediate 8.6 mg oral tablet (20 sources) Start: 11-03-2024 Sennosides-Docusat e Sodium (Senexon-S) 8.6-50 mg tablet Active 2 NMA PO daily as needed for constipation November 03, 2024 12:00am Start: 08-14-2024 End: 10-14-2024 take 1 tablet by mouth twice daily senna-docusate (SENNA-S) 8.6-50 mg per tablet Take 1 tablet by mouth two times a day. 180 tablet 08/14/2024 10/14/2024 Discontinued take 1 tablet by casey th once daily as needed for constipation senna-docusate (SENNA-S) 8.6-50 mg per tablet Take 1 tablet by mouth once daily as needed for constipation. 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) , Carcinomatosis (HCC) , Malignant ascites (HCC) For CT ABD/PEL W IVCON Routine order Administer, As Directed One Time Only, via Oral, Rectal, both Oral and Rectal, Enteric Tube, Stoma or Indwelling Catheter, Enteric Contrast as designated per enteric contrast guidelines 1 each 11/23/2024 Active Start: 08-28-2024 End: 08-29-2024 enteric contrast (will be pr ovided with radiology test) 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) , Malignant neoplasm of both ovaries (HCC) For CT CHESTABD/PEL W IVCON Routine order Administer, As Directed One Time Only, via Oral, Rectal, both Oral and Rectal, Enteric Tube, Stoma or Indwelling Catheter, Enteric Contrast as designated per enteric contrast guidelines 1 Each 08/28/2024 08/29/2024 Active Start: 07-26-2024 End: 07-27-2024 enteric contrast (will be pr ovided with radiology test) Indications: Malignant neoplasm of both ovaries (HCC) , 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) For CT CHESTABD/PEL W IVCON Routine order Administer, As Directed One Time Only, via Oral, Rectal, both Oral and Rectal, Enteric Tube, Stoma or Indwelling Catheter, Enteric Contrast as designated per enteric contrast guidelines 1 Each 07/26/2024 07/27/2024 Start: 06-07-2024 End: 06-08-2024 enteric contrast (will be pr ovided with radiology test) Indications: Malignant neoplasm of both ovaries (HCC) , Carcinomatosis (HCC) For CT CHESTABD/PEL W IVCON Routine order Administer, As Directed One Time Only, via Oral, Rectal, both Oral and Rectal, Enteric Tube, Stoma or Indwelling Catheter, Enteric Contrast as designated per enteric contrast guidelines 1 Each 06/07/2024 06/08/2024 Active Start: 02-29-2024 End: 03-01-2024 enteric contrast (will be pr ovided with radiology test) 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) , Malignant neoplasm of both ovaries (HCC) For CT CHESTABD/PEL W IVCON Routine order Administer, As Directed One Time Only, via Oral, Rectal, both Oral and Rectal, Enteric Tube, Stoma or Indwelling Catheter, Enteric Contrast as designated per enteric contrast guidelines 1 Each 02/29/2024 03/01/2024 Start: 02-29-2024 End: 03-01-2024 enteric contrast (will be pr ovided with radiology test) 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) , Malignant neoplasm of both ovaries (HCC) For CT CHESTABD/PEL W IVCON Routine order Administer, As Directed One Time Only, via Oral, Rectal, both Oral and Rectal, Enteric Tube, Stoma or Indwelling Catheter, Enteric Contrast as designated per enteric contrast guidelines 1 Each 02/29/2024 03/01/2024 Active Start: 01-17-2024 End: 01-18-2024 enteric contrast (will be pr ovided with radiology test) Indications: Malignant neoplasm of both ovaries (HCC) , 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) For CT CHESTABD/PEL W IVCON Routine order Administer, As Directed One Time Only, via Oral, Rectal, both Oral and Rectal, Enteric Tube, Stoma or Indwelling Catheter, Enteric Contrast as designated per enteric contrast guidelines 1 Each 0 01/17/2024 01/18/2024 Active Start: 11-12-2023 End: 02-24-2024 enteric contrast (will be pr ovided with radiology test) Indications: Malignant neoplasm of both ovaries (HCC) , 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) , Carcinomatosis (HCC) For CT ABD/PEL W IVCON Routine order Administer, As Directed One Time Only, via Oral, Rectal, both Oral and Rectal, Enteric Tube, Stoma or Indwelling Catheter, Enteric Contrast as designated per enteric contrast guidelines 1 Each 11/12/2023 02/24/2024 Discontinued (Course of therapy completed) Start: 11-12-[address] (will be provided with radiology test) Indications: Malignant neoplasm of both ovaries (HCC) , 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) , Carcinomatosis (HCC) For CT ABD/PEL W IVCON Routine order Administer, As Directed One Time Only, via Oral, Rectal, both Oral and Rectal, Enteric Tube, Stoma or Indwelling Catheter, Enteric Contrast as designated per enteric contrast guidelines 1 Each 11/12/2023 Active Start: 11-12-[address] (will be provided with radiology test) Indications: Malignant neoplasm of both ovaries (HCC) , 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) , Carcinomatosis (HCC) For CT ABD/PEL W IVCON Routine order Administer, As Directed One Time Only, via Oral, Rectal, both Oral and Rectal, Enteric Tube, Stoma or Indwelling Catheter, Enteric Contrast as designated per enteric contrast guidelines 1 Each 0 11/12/2023 Active Start: 09-08-2023 End: 09-09-2023 enteric contrast (will be pr ovided with radiology test) Indications: Malignant neoplasm of both ovaries (HCC) , Carcinomatosis (HCC) For CT CHESTABD/PEL W IVCON Routine order Administer, As Directed One Time Only, via Oral, Rectal, both Oral and Rectal, Enteric Tube, Stoma or Indwelling Catheter, Enteric Contrast as designated per enteric contrast guidelines 1 Each 0 09/08/2023 09/09/2023 Start: 09-08-2023 End: 09-09-2023 enteric contrast (will be pr ovided with radiology test) Indications: Malignant neoplasm of both ovaries (HCC) , Carcinomatosis (HCC) For CT CHESTABD/PEL W IVCON Routine order Administer, As Directed One Time Only, via Oral, Rectal, both Oral and Rectal, Enteric Tube, Stoma or Indwelling Catheter, Enteric Contrast as designated per enteric contrast guidelines 1 Each 0 09/08/2023 09/09/2023 Active Start: 05-07-2023 End: 09-08-2023 enteric contrast (will be pr ovided with radiology test) Indications: Malignant neoplasm of both ovaries (HCC) , 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) For CT ABD/PEL W IVCON Routine order Administer, As Directed One Time Only, via Oral, Rectal, both Oral and Rectal, Enteric Tube, Stoma or Indwelling Catheter, Enteric Contrast as designated per enteric contrast guidelines 1 Each 0 05/07/2023 09/08/2023 Discontinued Start: 05-07-[address] (will be provided with radiology test) Indications: Malignant neoplasm of both ovaries (HCC) , 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) For CT ABD/PEL W IVCON Routine order Administer, As Directed One Time Only, via Oral, Rectal, both Oral and Rectal, Enteric Tube, Stoma or Indwelling Catheter, Enteric Contrast as designated per enteric contrast guidelines 1 Each 0 05/07/2023 Active Start: 09-18-2022 End: 09-19-2022 enteric contrast (will be pr ovided with radiology test) Indications: Malignant neoplasm of both ovaries (HCC) For CT CHESTABD/PEL W IVCON Routine order Administer, As Directed One Time Only, via Oral, Rectal, both Oral and Rectal, Enteric Tube, Stoma or Indwelling Catheter, Enteric Contrast as designated per enteric contrast guidelines 1 Each 0 09/18/2022 09/19/2022 Start: 09-18-2022 End: 09-19-2022 enteric contrast (will be pr ovided with radiology test) Indications: Malignant neoplasm of both ovaries (HCC) For CT CHESTABD/PEL W IVCON Routine order Administer, As Directed One Time Only, via Oral, Rectal, both Oral and Rectal, Enteric Tube, Stoma or Indwelling Catheter, Enteric Contrast as designated per enteric contrast guidelines 1 Each 0 09/18/2022 09/19/2022 Active Start: 08-04-2022 End: 08-05-2022 enteric contrast (will be pr ovided with radiology test) Indications: Malignant neoplasm of both ovaries (HCC) , Omental metastasis (HCC) For CT CHESTABD/PEL W IVCON Routine order Administer, As Directed One Time Only, via Oral, Rectal, both Oral and Rectal, Enteric Tube, Stoma or Indwelling Catheter, Enteric Contrast as designated per enteric contrast guidelines 1 Each 0 08/04/2022 08/05/2022 Start: 08-04-2022 End: 08-05-2022 enteric contrast (will be pr ovided with radiology test) Indications: Malignant neoplasm of both ovaries (HCC) , Omental metastasis (HCC) For CT CHESTABD/PEL W IVCON Routine order Administer, As Directed One Time Only, via Oral, Rectal, both Oral and Rectal, Enteric Tube, Stoma or Indwelling Catheter, Enteric Contrast as designated per enteric contrast guidelines 1 Each 0 08/04/2022 08/05/2022 Active Start: 06-26-2022 End: 02-12-2023 enteric contrast (will be pr ovided with radiology test) Indications: Fallopian tube carcinoma, left (HCC) For CT CHESTABD/PEL W IVCON Routine order Administer, As Directed One Time Only, via Oral, Rectal, both Oral and Rectal, Enteric Tube, Stoma or Indwelling Catheter, Enteric Contrast as designated per enteric contrast guidelines 1 Each 0 06/26/2022 02/12/2023 Discontinued Start: 06-26-[address] (will be provided with radiology test) Indications: Fallopian tube carcinoma, left (HCC) For CT CHESTABD/PEL W IVCON Routine order Administer, As Directed One Time Only, via Oral, Rectal, both Oral and Rectal, Enteric Tube, Stoma or Indwelling Catheter, Enteric Contrast as designated per enteric contrast guidelines 1 Each 0 06/26/2022 Active Start: 04-15-2022 End: 02-12-2023 enteric contrast (will be pr ovided with radiology test) Indications: Malignant neoplasm of both ovaries (HCC) , Suprapubic pain, acute For CT CHESTABD/PEL W IVCON Routine order Administer, As Directed One Time Only, via Oral, Rectal, both Oral and Rectal, Enteric Tube, Stoma or Indwelling Catheter, Enteric Contrast as designated per enteric contrast guidelines 1 Each 0 04/15/2022 02/12/2023 Discontinued Start: 04-15-[address] (will be provided with radiology test) Indications: Malignant neoplasm of both ovaries (HCC) , Suprapubic pain, acute For CT CHESTABD/PEL W IVCON Routine order Administer, As Directed One Time Only, via Oral, Rectal, both Oral and Rectal, Enteric Tube, Stoma or Indwelling Catheter, Enteric Contrast as designated per enteric contrast guidelines 1 Each 0 04/15/2022 Active Start: 03-27-2021 End: 01-29-2022 enteric contrast (will be pr ovided with radiology test) Indications: Malignant neoplasm of uterine adnexa (HCC) For CT CHESTABD/PEL W IVCON Routine order Administer, As Directed One Time Only, via Oral, Rectal, both Oral and Rectal, Enteric Tube, Stoma or Indwelling Catheter, Enteric Contrast as designated per enteric contrast guidelines 1 Each 0 03/27/2021 01/29/2022 Discontinued (Course of therapy completed) Start: 03-27-[address] (will be provided with radiology test) Indications: Malignant neoplasm of uterine adnexa (HCC) For CT CHESTABD/PEL W IVCON Routine order Administer, As Directed One Time Only, via Oral, Rectal, both Oral and Rectal, Enteric Tube, Stoma or Indwelling Catheter, Enteric Contrast as designated per enteric contrast guidelines 1 Each 0 03/27/2021 Active Start: 12-18-2020 End: 01-29-2022 enteric contrast (will be pr ovided with radiology test) For CT CHESTABD/PEL W IVCON Routine order Administer, As Directed One Time Only, via Oral, Rectal, both Oral and Rectal, Enteric Tube, Stoma or Indwelling Catheter, Enteric Contrast as designated per enteric contrast guidelines 1 Each 0 12/18/2020 01/29/2022 Discontinued (Course of therapy completed) Start: 12-18-[address] (will be provided with radiology test) For CT CHESTABD/PEL W IVCON Routine order Administer, As Directed One Time Only, via Oral, Rectal, both Oral and Rectal, Enteric Tube, Stoma or Indwelling Catheter, Enteric Contrast as designated per enteric contrast guidelines 1 Each 0 12/18/2020 Active Comment on above: For CT CHESTABD/PEL W IVCON Routine order Administer, As Directed One Time Only, via Oral, Rectal, both Oral and Rectal, Enteric Tube, Stoma or Indwelling Catheter, Enteric Contrast as designated per enteric contrast guidelines For CT ABD/PEL W IVC ON Routine order Administer, As Directed One Time Only, via Oral, Rectal, both Oral and Rectal, Enteric Tube, Stoma or Indwelling Catheter, Enteric Contrast as designated per enteric contrast guidelines iv contrast (will be provided with radiology test) (20 sources) Start: 11-23-2024 iv contrast (will be provided with radiology test) Indications: Malignant neoplasm of both ovaries (HCC) , 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 Discontinue saline lock post exam. If Pt. has a central line or IVAD, may access for administration according to line specific nursing protocol. Once exam is complete flush line and de-access according to line specific nursing protocol in the CT contrast administration guidelines link. 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 Discontinue saline lock post exam. If Pt. has a central line or IVAD, may access for administration according to line specific nursing protocol. Once exam is complete flush line and de-access according to line specific nursing protocol in the CT contrast administration guidelines link. 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 Discontinue saline lock post exam. If Pt. has a central line or IVAD, may access for administration according to line specific nursing protocol. Once exam is complete flush line and de-access according to line specific nursing protocol in the CT contrast administration guidelines link. 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 Discontinue saline lock post exam. If Pt. has a central line or IVAD, may access for administration according to line specific nursing protocol. Once exam is complete flush line and de-access according to line specific nursing protocol in the CT contrast administration guidelines link. 1 Each 07/26/2024 07/27/2024 Start: 06-07-2024 End: 06-08-2024 iv contrast (will be provide d with radiology test) Indications: Malignant neoplasm of both ovaries (HCC) , Carcinomatosis (HCC) CT Chest ABD/PEL-Inject, intravenously, once for 1 dose.No IV access, insert saline lock prior to the beginning of sedation, infusion, injection of imaging exam. Discontinue saline lock post exam. If Pt. has a central line or IVAD, may access for administration according to line specific nursing protocol. Once exam is complete flush line and de-access according to line specific nursing protocol in the CT contrast administration guidelines link. 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 Discontinue saline lock post exam. If Pt. has a central line or IVAD, may access for administration according to line specific nursing protocol. Once exam is complete flush line and de-access according to line specific nursing protocol in the CT contrast administration guidelines link. 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 Discontinue saline lock post exam. If Pt. has a central line or IVAD, may access for administration according to line specific nursing protocol. Once exam is complete flush line and de-access according to line specific nursing protocol in the CT contrast administration guidelines link. 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 Discontinue saline lock post exam. If Pt. has a central line or IVAD, may access for administration according to line specific nursing protocol. Once exam is complete flush line and de-access according to line specific nursing protocol in the CT contrast administration guidelines link. 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 Discontinue saline lock post exam. If Pt. has a central line or IVAD, may access for administration according to line specific nursing protocol. Once exam is complete flush line and de-access according to line specific nursing protocol in the CT contrast administration guidelines link. 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 Discontinue saline lock post exam. If Pt. has a central line or IVAD, may access for administration according to line specific nursing protocol. Once exam is complete flush line and de-access according to line specific nursing protocol in the CT contrast administration guidelines link. 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 Discontinue saline lock post exam. If Pt. has a central line or IVAD, may access for administration according to line specific nursing protocol. Once exam is complete flush line and de-access according to line specific nursing protocol in the CT contrast administration guidelines link. 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 Discontinue saline lock post exam. If Pt. has a central line or IVAD, may access for administration according to line specific nursing protocol. Once exam is complete flush line and de-access according to line specific nursing protocol in the CT contrast administration guidelines link. 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 Discontinue saline lock post exam. If Pt. has a central line or IVAD, may access for administration according to line specific nursing protocol. Once exam is complete flush line and de-access according to line specific nursing protocol in the CT contrast administration guidelines link. 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 Discontinue saline lock post exam. If Pt. has a central line or IVAD, may access for administration according to line specific nursing protocol. Once exam is complete flush line and de-access according to line specific nursing protocol in the CT contrast administration guidelines link. 1 Each 0 11/12/2023 Active Start: 09-08-2023 End: 09-09-2023 iv contrast (will be provide d with radiology test) Indications: Malignant neoplasm of both ovaries (HCC) , Carcinomatosis (HCC) CT Chest ABD/PEL-Inject, intravenously, once for 1 dose.No IV access, insert saline lock prior to the beginning of sedation, infusion, injection of imaging exam. Discontinue saline lock post exam. If Pt. has a central line or IVAD, may access for administration according to line specific nursing protocol. Once exam is complete flush line and de-access according to line specific nursing protocol in the CT contrast administration guidelines link. 1 Each 0 09/08/2023 09/09/2023 Start: 09-08-2023 End: 09-09-2023 iv contrast (will be provide d with radiology test) Indications: Malignant neoplasm of both ovaries (HCC) , Carcinomatosis (HCC) CT Chest ABD/PEL-Inject, intravenously, once for 1 dose.No IV access, insert saline lock prior to the beginning of sedation, infusion, injection of imaging exam. Discontinue saline lock post exam. If Pt. has a central line or IVAD, may access for administration according to line specific nursing protocol. Once exam is complete flush line and de-access according to line specific nursing protocol in the CT contrast administration guidelines link. 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 Discontinue saline lock post exam. If Pt. has a central line or IVAD, may access for administration according to line specific nursing protocol. Once exam is complete flush line and de-access according to line specific nursing protocol in the CT contrast administration guidelines link. 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 Discontinue saline lock post exam. If Pt. has a central line or IVAD, may access for administration according to line specific nursing protocol. Once exam is complete flush line and de-access according to line specific nursing protocol in the CT contrast administration guidelines link. 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 Discontinue saline lock post exam. If Pt. has a central line or IVAD, may access for administration according to line specific nursing protocol. Once exam is complete flush line and de-access according to line specific nursing protocol in the CT contrast administration guidelines link. 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 Discontinue saline lock post exam. If Pt. has a central line or IVAD, may access for administration according to line specific nursing protocol. Once exam is complete flush line and de-access according to line specific nursing protocol in the CT contrast administration guidelines link. 1 Each 0 05/07/2023 Active Start: 09-18-2022 End: 09-19-2022 iv contrast (will be provide d with radiology test) Indications: Malignant neoplasm of both ovaries (HCC) CT Chest ABD/PEL-Inject, intravenously, once for 1 dose.No IV access, insert saline lock prior to the beginning of sedation, infusion, injection of imaging exam. Discontinue saline lock post exam. If Pt. has a central line or IVAD, may access for administration according to line specific nursing protocol. Once exam is complete flush line and de-access according to line specific nursing protocol in the CT contrast administration guidelines link. 1 Each 0 09/18/2022 09/19/2022 Start: 09-18-2022 End: 09-19-2022 iv contrast (will be provide d with radiology test) Indications: Malignant neoplasm of both ovaries (HCC) CT Chest ABD/PEL-Inject, intravenously, once for 1 dose.No IV access, insert saline lock prior to the beginning of sedation, infusion, injection of imaging exam. Discontinue saline lock post exam. If Pt. has a central line or IVAD, may access for administration according to line specific nursing protocol. Once exam is complete flush line and de-access according to line specific nursing protocol in the CT contrast administration guidelines link. 1 Each 0 09/18/2022 09/19/2022 Active Start: 08-04-2022 End: 08-05-2022 iv contrast (will be provide d with radiology test) Indications: Malignant neoplasm of both ovaries (HCC) , Omental metastasis (HCC) CT Chest ABD/PEL-Inject, intravenously, once for 1 dose.No IV access, insert saline lock prior to the beginning of sedation, infusion, injection of imaging exam. Discontinue saline lock post exam. If Pt. has a central line or IVAD, may access for administration according to line specific nursing protocol. Once exam is complete flush line and de-access according to line specific nursing protocol in the CT contrast administration guidelines link. 1 Each 0 08/04/2022 08/05/2022 Start: 08-04-2022 End: 08-05-2022 iv contrast (will be provide d with radiology test) Indications: Malignant neoplasm of both ovaries (HCC) , Omental metastasis (HCC) CT Chest ABD/PEL-Inject, intravenously, once for 1 dose.No IV access, insert saline lock prior to the beginning of sedation, infusion, injection of imaging exam. Discontinue saline lock post exam. If Pt. has a central line or IVAD, may access for administration according to line specific nursing protocol. Once exam is complete flush line and de-access according to line specific nursing protocol in the CT contrast administration guidelines link. 1 Each 0 08/04/2022 08/05/2022 Active Start: 07-01-2022 End: 07-02-2022 iv contrast (will be provide d with radiology test) MRI Female Pelvis Inject, intravenously, once for 1 dose. No IV access, insert saline lock prior to the beginning of sedation, infusion, injection of imaging exam. Discontinue saline lock post exam. If Pt has a central line or IVAD, may access for administration according to line specific nursing protocol. Once exam is complete flush line and de-access according to line specific nursing protocol in the MR contrast administration guidelines link. 1 Each 0 07/01/2022 07/02/2022 Start: 07-01-2022 End: 07-02-2022 iv contrast (will be provide d with radiology test) MRI Female Pelvis Inject, intravenously, once for 1 dose. No IV access, insert saline lock prior to the beginning of sedation, infusion, injection of imaging exam. Discontinue saline lock post exam. If Pt has a central line or IVAD, may access for administration according to line specific nursing protocol. Once exam is complete flush line and de-access according to line specific nursing protocol in the MR contrast administration guidelines link. 1 Each 0 07/01/2022 07/02/2022 Active Start: 06-26-2022 End: 02-12-2023 iv contrast (will be provide d with radiology test) Indications: Fallopian tube carcinoma, left (HCC) CT Chest ABD/PEL-Inject, intravenously, once for 1 dose.No IV access, insert saline lock prior to the beginning of sedation, infusion, injection of imaging exam. Discontinue saline lock post exam. If Pt. has a central line or IVAD, may access for administration according to line specific nursing protocol. Once exam is complete flush line and de-access according to line specific nursing protocol in the CT contrast administration guidelines link. 1 Each 0 06/26/2022 02/12/2023 Discontinued Start: 06-26-2022 iv contrast (w ill be provided with radiology test) Indications: Fallopian tube carcinoma, left (HCC) CT Chest ABD/PEL-Inject, intravenously, once for 1 dose.No IV access, insert saline lock prior to the beginning of sedation, infusion, injection of imaging exam. Discontinue saline lock post exam. If Pt. has a central line or IVAD, may access for administration according to line specific nursing protocol. Once exam is complete flush line and de-access according to line specific nursing protocol in the CT contrast administration guidelines link. 1 Each 0 06/26/2022 Active Start: 04-15-2022 End: 02-12-2023 iv contrast (will be provide d with radiology test) Indications: Malignant neoplasm of both ovaries (HCC) , Suprapubic pain, acute CT Chest ABD/PEL-Inject, intravenously, once for 1 dose.No IV access, insert saline lock prior to the beginning of sedation, infusion, injection of imaging exam. Discontinue saline lock post exam. If Pt. has a central line or IVAD, may access for administration according to line specific nursing protocol. Once exam is complete flush line and de-access according to line specific nursing protocol in the CT contrast administration guidelines link. 1 Each 0 04/15/2022 02/12/2023 Discontinued Start: 04-15-2022 iv contrast (w ill be provided with radiology test) Indications: Malignant neoplasm of both ovaries (HCC) , Suprapubic pain, acute CT Chest ABD/PEL-Inject, intravenously, once for 1 dose.No IV access, insert saline lock prior to the beginning of sedation, infusion, injection of imaging exam. Discontinue saline lock post exam. If Pt. has a central line or IVAD, may access for administration according to line specific nursing protocol. Once exam is complete flush line and de-access according to line specific nursing protocol in the CT contrast administration guidelines link. 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 Discontinue saline lock post exam. If Pt. has a central line or IVAD, may access for administration according to line specific nursing protocol. Once exam is complete flush line and de-access according to line specific nursing protocol in the CT contrast administration guidelines link. 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 Discontinue saline lock post exam. If Pt. has a central line or IVAD, may access for administration according to line specific nursing protocol. Once exam is complete flush line and de-access according to line specific nursing protocol in the CT contrast administration guidelines link. 1 Each 0 03/27/2021 Active Start: 12-18-2020 End: 01-29-2022 iv contrast (will be provide d with radiology test) CT Chest ABD/PEL-Inject, intravenously, once for 1 dose.No IV access, insert saline lock prior to the beginning of sedation, infusion, injection of imaging exam. Discontinue saline lock post exam. If Pt. has a central line or IVAD, may access for administration according to line specific nursing protocol. Once exam is complete flush line and de-access according to line specific nursing protocol in the CT contrast administration guidelines link. 1 Each 0 12/18/2020 01/29/2022 Discontinued (Course of therapy completed) Start: 12-18-2020 iv contrast (w ill be provided with radiology test) CT Chest ABD/PEL-Inject, intravenously, once for 1 dose.No IV access, insert saline lock prior to the beginning of sedation, infusion, injection of imaging exam. Discontinue saline lock post exam. If Pt. has a central line or IVAD, may access for administration according to line specific nursing protocol. Once exam is complete flush line and de-access according to line specific nursing protocol in the CT contrast administration guidelines link. 1 Each 0 12/18/2020 Active Comment on above: CT Chest ABD/PEL-Inj ect, intravenously, once for 1 dose.No IV access, insert saline lock prior to the beginning of sedation, infusion, injection of imaging exam. Discontinue saline lock post exam. If Pt. has a central line or IVAD, may access for administration according to line specific nursing protocol. Once exam is complete flush line and de-access according to line specific nursing protocol in the CT contrast administration guidelines link. MRI Female Pelvis In ject, intravenously, once for 1 dose. No IV access, insert saline lock prior to the beginning of sedation, infusion, injection of imaging exam. Discontinue saline lock post exam. If Pt has a central line or IVAD, may access for administration according to line specific nursing protocol. Once exam is complete flush line and de-access according to line specific nursing protocol in the MR contrast administration guidelines link. CT ABD/PEL -Inject, intravenously, once for 1 dose.No IV access, insert saline lock prior to the beginning of sedation, infusion, injection of imaging exam. Discontinue saline lock post exam. If Pt. has a central line or IVAD, may access for administration according to line specific nursing protocol. Once exam is complete flush line and de-access according to line specific nursing protocol in the CT contrast administration guidelines link. CT Chest W -Inject, intravenously, once for 1 dose.No IV access, insert saline lock prior to the beginning of sedation, infusion, injection of imaging exam. Discontinue saline lock post exam. If Pt. has a central line or IVAD, may access for administration according to line specific nursing protocol. Once exam is complete flush line and de-access according to line specific nursing protocol in the CT contrast administration guidelines link. lidocaine 25 mg/ml / prilocaine 25 mg/ml topical cream (3 sources) Antiarrhythmic, Amide Local Anesthetic Start: 5 End: lidocaine-priloca ine (EMLA) 2.5-2.5 % cream Apply to affected area two times a day as needed (rectal pain) for up to 7 days. 5 g 08/14/2024 08/21/2024 Active olaparib 150 mg oral tablet (20 sources) Poly(ADP-Ribose) Polymerase Inhibitor Start: take 2 tablets by mouth once daily olaparib (LYNPARZA) 150 mg tablet Indications: Fallopian tube carcinoma, left (HCC) , BRCA2 gene mutation positive Take 2 tablets (300 mg) by mouth once daily. 60 tablet 11/30/2024 Active Start: 11-03-2024 take 1 tablet by casey th twice daily Olaparib (Lynparza) 150 mg tablet Active 300 mg PO TWICE A DAY November 03, 2024 12:00am Start: 08-01-2024 End: 08-01-2025 take 2 tablets by mouth twice daily olaparib (LYNPARZA) 150 mg tablet Indications: Fallopian tube carcinoma, left (HCC) , BRCA2 gene mutation positive Take 2 tablets (300 mg) by mouth two times a day. 120 tablet 11 08/01/2024 11/30/2024 Discontinued (Adjust Sig - Block E-Cancel) omeprazole 40 mg delayed release oral capsule (20 sources) Proton Pump Inhibitor Start: 11-09-2024 take 1 capsule by mouth once daily omeprazole (PRILOSEC) 40 mg capsule Indications: GERD without esophagitis Take 1 capsule by mouth once daily. 30 capsule 5 11/09/2024 Active Start: 07-20-2024 End: 10-13-2024 take 1 capsule by mouth once daily omeprazole (PRILOSEC) 40 mg capsule Take 1 capsule by mouth once daily. 30 capsule 5 07/20/2024 10/13/2024 Discontinued oxyCODONE hydrochloride 5 mg oral tablet (2 sources) Opioid Agonist Start: 07-20-2023 End: 07-27-2023 take 1 tablet by mouth every four hours as needed for pain oxyCODONE IR (ROXICODONE) 5 mg immediate release tablet Indications: Post-op pain Take 1 tablet by mouth every 4 hours as needed for pain for up to 10 doses. 10 tablet 0 07/20/2023 07/27/2023 Active Comment on above: Take 1 tablet by casey th every 4 hours as needed for pain for up to 10 doses. 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 30 tablet 2 08/29/2024 Active Simethicone (19 sources) simethicone (GAS -X ORAL) Take 1 capsule by mouth as needed. Active 125 ml sodium chloride 9 mg/ml prefilled syringe (20 sources) Start: 12-11-2022 End: 05-13-2024 sodium chloride 0.9 % (flush) 10 mL (BD POSIFLUSH) Completed/Discontinued Medications Medication Drug Class(es) Dates Sig (Normalized) Sig (Original) acetaminophen 325 mg oral tablet (20 sources) Start: 12-07-2023 End: 12-07-2023 acetaminophen 650 mg tab(s) (TYLENOL) Start: 11-17-2023 End: 11-17-2023 acetaminophen 650 mg tab(s) (TYLENOL) Start: 10-26-2023 End: 10-26-2023 acetaminophen 650 mg tab(s) (TYLENOL) Start: 07-20-2023 take 2 tablets by mo ut every eight hours acetaminophen (TYLENOL) 500 mg tablet Take 2 tablets by mouth every 8 hours. 30 tablet 07/20/2023 Active Comment on above: Take 2 tablets by mo ut every 8 hours. acetaminophen 325 mg / HYDROcodone bitartrate 5 mg oral tablet (20 sources) Opioid Agonist Start: 07-23-19 End: 07-28-19 take 1-2 tablets by mouth every six hours as needed for pain HYDROcodone-acetaminop hen (NORCO) 5-325 mg per tablet Indications: Carcinomatosis (HCC) , Malignant neoplasm of both ovaries (HCC) Take 1-2 tablets by mouth every 6 hours as needed for pain for up to 5 days. 40 tablet 0 07/23/2022 07/28/2022 Comment on above: Take 1-2 tablets by mouth every 6 hours as needed for pain for up to 5 days. Take 1-2 tablets by mouth every 6 hours as needed for pain. apixaban 2.5 mg oral tablet (5 sources) Factor Xa Inhibitor Start: 07-20-19 End: 08-11-19 take 1 tablet by mouth twice daily apixaban (ELIQUIS) 2.5 mg tab(s) Take 1 tablet by mouth two times a day for 22 days. 44 tablet 0 07/20/2023 07/30/2023 Discontinued Comment on above: Take 1 tablet by casey two times a day for 22 days. atorvastatin 10 mg oral tablet (20 sources) HMG-CoA Reductase Inhibitor Start: 07-31-19 End: 11-04-19 take 1 tablet by mouth once daily Atorvastatin 10 mg tablet Discontinued 10 mg PO DAILY June 01, 2023 1:00am November 03, 2024 9:36am Comment on above: Take 1 tablet by casey once daily. bevacizumab-awwb 576 mg in NaCl 0.9% 133.04 mL (MVASI) (9 sources) Start: 07-20-19 End: 07-20-19 576 mg (10 mg/kg/dose 57.6 kg Treatment plan Recorded weight), INTRAVENOUS, Administer over 30 Minutes, ONCE, 1 dose, On Wed07/20/24 at 1130, Approx Total Volume: Exp: 07/21/24 @ 11:15 (room temp) - DO NOT SHAKE Refrigerate Start: 07-06-2024 End: 07-06-2024 576 mg (10 mg/kg/dose 57.6 k g Treatment plan Recorded weight), INTRAVENOUS, Administer over 30 Minutes, ONCE, 1 dose, On Wed07/06/24 at 1000, Approx Total Volume: exp 1800 07/06/24 (room temp) - DO NOT SHAKE Refrigerate Start: 06-23-2024 End: 06-23-2024 576 mg (10 mg/kg/dose 57.6 k g Treatment plan Recorded weight), INTRAVENOUS, Administer over 30 Minutes, ONCE, 1 dose, On Wed06/23/24 at 0900, Approx Total Volume: . exp immediate use (room temp) -- DO NOT SHAKE Refrigerate Start: 06-08-2024 End: 06-08-2024 576 mg (10 mg/kg/dose 57.6 k g Treatment plan Recorded weight), INTRAVENOUS, Administer over 30 Minutes, ONCE, 1 dose, On Wed06/08/24 at 0900, Approx Total Volume - IMMEDIATE USE at room [facility] - DO NOT SHAKE Refrigerate Start: 05-25-2024 End: 05-25-2024 576 mg (10 mg/kg/dose 57.6 k g Treatment plan Recorded weight), INTRAVENOUS, Administer over 30 Minutes, ONCE, 1 dose, On Wed05/25/24 at 1330, Approx Total Volume - IMMEDIATE USE at room [facility] -- DO NOT SHAKE Refrigerate Start: 05-10-2024 End: 05-10-2024 576 mg (10 mg/kg/dose 57.6 k g Treatment plan Recorded weight), INTRAVENOUS, Administer over 30 Minutes, ONCE, 1 dose, On Wed05/10/24 at 1100, Approx Total Volume - IMMEDIATE USE at room [facility] - DO NOT SHAKE Refrigerate Start: 04-20-2024 End: 04-20-2024 576 mg (10 mg/kg/dose 57.6 k g Treatment plan Recorded weight), INTRAVENOUS, Administer over 30 Minutes, ONCE, 1 dose, On Wed04/20/24 at 1000, Approx Total Volume: exp 1800 04/20/24 (room temp) -- DO NOT SHAKE Refrigerate Start: 03-30-2024 End: 03-30-2024 576 mg (10 mg/kg/dose 57.6 k g Treatment plan Recorded weight), INTRAVENOUS, Administer over 30 Minutes, ONCE, 1 dose, On Wed03/30/24 at 0830, Approx Total Volume: exp 1400 04/08/24 (refrigerated) -- DO NOT SHAKE Refrigerate Start: 03-16-2024 End: 03-16-2024 576 mg (10 mg/kg/dose 57.6 k g Treatment plan Recorded weight), INTRAVENOUS, Administer over 30 Minutes, ONCE, 1 dose, On Wed03/16/24 at 1400, Approx Total Volume: exp 2200 03/16/24 (room temp) -- DO NOT SHAKE Refrigerate bevacizumab-bvzr 576 mg in N aCl 0.9% 133.04 mL (ZIRABEV) (3 sources) Start: 03-02-2024 End: 03-02-2024 576 mg (10 mg/kg/dose 57.6 k g Treatment plan Recorded weight), INTRAVENOUS, Administer over 30 Minutes, ONCE, 1 dose, On Wed03/02/24 at 1400, Approx Total Volume - IMMEDIATE USE at room temp - Do Not Shake Refrigerate - EXP: (8 HR) Start: 02-16-2024 End: 02-16-2024 576 mg (10 mg/kg/dose 57.6 k g Treatment plan Recorded weight), INTRAVENOUS, Administer over 30 Minutes, ONCE, 1 dose, On Wed02/16/24 at 1000, Approx Total Volume - IMMEDIATE USE at room temp - Do Not Shake Refrigerate - EXP: (8 HR) Start: 02-04-2024 End: 02-04-2024 bevacizumab-bvzr 576 mg in N aCl 0.9% 133.04 mL (ZIRABEV) carboxymethyl/glycerin/poly8 0 (REFRESH DIGITAL OPHTHALMIC) (20 sources) End: 03-01-2024 carboxymethyl/glycerin/poly8 0 (REFRESH DIGITAL OPHTHALMIC) Use 1 Drop in eyes as needed. 03/01/2024 Discontinued carboxymethyl/gl ycerin/poly80 (REFRESH DIGITAL OPHTHALMIC) Use 1 Drop in eyes as needed. Active carboxymethyl/gl ycerin/poly80 (REFRESH DIGITAL OPHTHALMIC) Use 1 Drop in eyes as needed. 0 Active celecoxib 200 mg oral capsule (20 sources) Nonsteroidal Anti-inflammatory Drug Start: 11-13-2022 End: 02-12-2023 take 1 capsule by mouth once daily celecoxib (CELEBREX) 200 mg capsule Take 1 capsule by mouth once daily. 14 capsule 0 11/13/2022 02/12/2023 Discontinued Comment on above: Take 1 capsule by [facility] once daily. cephalexin 500 mg oral capsule (4 sources) Cephalosporin Antibacterial End: 03-01-2024 take 1 capsule by mouth three times daily cephALEXin (KEFLEX) 500 mg capsule Take 500 mg by mouth three times a day. 03/01/2024 dexamethasone 4 mg oral tablet (20 sources) Corticosteroid Start: 07-10-2022 End: 08-28-2022 dexAMETHasone (DECADRON) 4 mg tablet Take 5 tablets 12 and 6 hours prior to chemotherapy treatment. 10 tablet 5 07/10/2022 08/28/2022 Discontinued Comment on above: Take 5 tablets 12 an d 6 hours prior to chemotherapy treatment. dexAMETHasone 10 mg in NaCl 0.9% 50 mL (DECADRON) (3 sources) Start: 12-07-2023 End: 12-07-2023 dexAMETHasone 10 mg in NaCl 0.9% 50 mL (DECADRON) Start: 11-17-2023 End: 11-17-2023 dexAMETHasone 10 mg in NaCl 0.9% 50 mL (DECADRON) Start: 10-26-2023 End: 10-26-2023 dexAMETHasone 10 mg in NaCl 0.9% 50 mL (DECADRON) dicyclomine hydrochloride 10 mg oral capsule (7 sources) Anticholinergic Start: 02-08-2024 End: 03-01-2024 take 1 capsule by mouth three times daily dicyclomine (BENTYL) 10 mg capsule Take 1 capsule by mouth three times a day. 90 capsule 2 02/08/2024 03/01/2024 Discontinued difluprednate 0.5 mg/ml ophthalmic suspension (20 sources) Start: 11-01-2023 End: 03-01-2024 take 1 drop(s) into the eye(s) four times daily difluprednate (DUREZOL) 0.05 % ophthalmic suspension INSTILL 1 DROP INTO EACH EYE 4 TIMES DAILY 11/01/2023 03/01/2024 Discontinued diphenhydrAMINE (4 sources) Histamine-1 Receptor Antagonist Start: 12-07-2023 End: 12-07-2023 diphenhydrAMINE 50 mg injection (BENADRYL) Start: 11-17-2023 End: 11-17-2023 diphenhydrAMINE 50 mg inject ion (BENADRYL) Start: 11-17-2023 End: 11-17-2023 diphenhydrAMINE 50 mg inject ion (BENADRYL) Start: 10-26-2023 End: 10-26-2023 diphenhydrAMINE 50 mg inject ion (BENADRYL) iphjwocehzCGHME-ikxxcm-qyenc bridget (BMX 1:1:1) 1:1:1 liqd (20 sources) Start: 02-02-2023 End: 09-27-2023 take 10 mL by mouth every four hours as needed leupbzsabnUPAVX-yeztzs-lpqpmlxht (BMX 1:1:1) 1:1:1 liqd Take 10 mL by mouth every 4 hours as needed. 300 mL 5 02/02/2023 09/27/2023 Discontinued Start: 02-02-2023 take 10 mL by mouth every four hours as needed qpbnmxhxfjAJOYQ-lemtxd-sbkrzdzba (BMX 1: 1:1) 1:1:1 liqd Take 10 mL by mouth every 4 hours as needed. 300 mL 5 02/02/2023 Active Comment on above: Take 10 mL by mouth every 4 hours as needed. Docusate (20 sources) docusate sodium (COLACE ORAL) Take by mouth. Suspended docusate sodium (COLACE ORAL) Take by mouth. Active take 1 tablet by casey th once daily as needed docusate sodium (COLACE ORAL) Take 1 tablet by mouth once daily as needed. Active take 1 tablet by casey th once daily as needed docusate sodium (COLACE ORAL) Take 1 tablet by mouth once daily as needed. 0 Active take 1 tablet by mouth once martin y docusate sodium (COLACE ORAL) Take 1 tablet by mouth once daily. 0 Active Comment on above: Take 1 tablet by casey th once daily. Take 1 tablet by casey th once daily as needed. DULoxetine 30 mg delayed release oral capsule (20 sources) Serotonin and Norepinephrine Reuptake Inhibitor Start: take 1 capsule by mouth once daily DULoxetine (CYMBALTA) 30 mg capsule Take 1 capsule by mouth once daily. 30 capsule 2 05/07/2023 Active Start: 10-09-2022 End: 02-12-2023 take 1 capsule by mouth once daily DULoxetine (CYMBALTA) 30 mg capsule TAKE 1 CAPSULE BY MOUTH ONCE DAILY 30 capsule 2 11/03/2022 02/12/2023 Discontinued Comment on above: Take 1 capsule by mo [facility] once daily. TAKE 1 CAPSULE BY [facility] ONCE DAILY erythromycin 0.005 mg/mg ophthalmic ointment (20 sources) Macrolide, Macrolide Antimicrobial Start: 10-15-2023 End: 03-01-2024 erythromycin (ROMYCIN) 5 mg/gram (0.5 %) ophthalmic ointment Use 1 application in both eyes daily at bedtime. 10/15/2023 03/01/2024 Discontinued Start: 10-15-2023 erythromycin ( ROMYCIN) 5 mg/gram (0.5 %) ophthalmic ointment daily at bedtime. 0 10/15/2023 Active gemcitabine 1,540 mg in NaCl 0.9% 315.502 mL (GEMZAR) (2 sources) Start: 08-10-2024 End: 08-10-2024 1,540 mg (1,000 mg/m2 1.54 m 2 Treatment Plan BSA from Recorded weight), INTRAVENOUS, Administer over 30 Minutes, ONCE, 1 dose, On Tiffany 08/10/24 at 1030, exp 1600 08/11/24 (room temp) Hazardous Chemotherapy Drug: Use appropriate PPE. Antineoplastic Irritant. Start: 08-03-2024 End: 08-03-2024 1,540 mg (1,000 mg/m2 1.54 m 2 Treatment Plan BSA from Recorded weight), INTRAVENOUS, Administer over 30 Minutes, ONCE, 1 dose, On Tiffany 08/03/24 at 0900, exp 1500 08/04/24 (room temp) Hazardous Chemotherapy Drug: Use appropriate PPE. Antineoplastic Irritant. heparin (20 sources) Unfractionated Heparin, Anti-coagulant Start: 07-02-2022 End: 04-09-2023 heparin 100 unit/mL injectio n NURSING USE ONLY: USE FOR IMPLANTED VASCULAR ACCESS DEVICE (IVAD) FLUSH. AMBULATORY/OUTPATIENT: PLEASE REORDER UPON HOSPITAL DISCHARGE May access implanted vascular access device (IVAD) as needed for treatment. Before de-accessing port, flush with 10-20ml normal saline and follow with 5 mL heparin (100 units/mL) (if no heparin allergy). De-access port on treatment completion. 5 mL 0 07/02/2022 04/09/2023 Discontinued Start: 07-02-2022 heparin 100 un it/mL injection NURSING USE ONLY: USE FOR IMPLANTED VASCULAR ACCESS DEVICE (IVAD) FLUSH. AMBULATORY/OUTPATIENT: PLEASE REORDER UPON HOSPITAL DISCHARGE May access implanted vascular access device (IVAD) as needed for treatment. Before de-accessing port, flush with 10-20ml normal saline and follow with 5 mL heparin (100 units/mL) (if no heparin allergy). De-access port on treatment completion. 5 mL 0 07/02/2022 Active Start: 12-15-2019 End: 01-29-2022 heparin 100 unit/mL injectio n NURSING USE ONLY: USE FOR IMPLANTED VASCULAR ACCESS DEVICE (IVAD) FLUSH. AMBULATORY/OUTPATIENT: PLEASE REORDER UPON HOSPITAL DISCHARGE May access implanted vascular access device (IVAD) as needed for treatment. Before de-accessing port, flush with 10-20ml normal saline and follow with 5 mL heparin (100 units/mL) (if no heparin allergy). De-access port on treatment completion. 5 mL 11 12/15/2019 01/29/2022 Discontinued Start: 12-15-2019 heparin 100 un it/mL injection NURSING USE ONLY: USE FOR IMPLANTED VASCULAR ACCESS DEVICE (IVAD) FLUSH. AMBULATORY/OUTPATIENT: PLEASE REORDER UPON HOSPITAL DISCHARGE May access implanted vascular access device (IVAD) as needed for treatment. Before de-accessing port, flush with 10-20ml normal saline and follow with 5 mL heparin (100 units/mL) (if no heparin allergy). De-access port on treatment completion. 5 mL 11 12/15/2019 Active Comment on above: NURSING USE ONLY: USE FOR IMPLANTED VASCULAR ACCESS DEVICE (IVAD) FLUSH. AMBULATORY/OUTPATIENT: PLEASE REORDER UPON HOSPITAL DISCHARGE May access implanted vascular access device (IVAD) as needed for treatment. Before de-accessing port, flush with 10-20ml normal saline and follow with 5 mL heparin (100 units/mL) (if no heparin allergy). De-access port on treatment completion. 10 ml iron sucrose 20 mg/ml injection (3 sources) Parenteral Iron Replacement Start: 11-14-2024 End: 11-14-2024 200 mg, INTRAVENOUS, ONCE, 1 dose, On Wed11/14/24 at 1000, Please conduct a 30 minute post dose observation. Start: 11-02-2024 End: 11-02-2024 200 mg, INTRAVENOUS, ONCE, 1 dose, On Tiffany 11/02/24 at 1100, Please conduct a 30 minute post dose observation. Start: 10-31-2024 End: 10-31-2024 200 mg, INTRAVENOUS, ONCE, 1 dose, On 10/31/24 at 1000, Please conduct a 30 minute post dose observation. LORazepam 0.5 mg oral tablet (10 sources) Benzodiazepine Start: 08-31-2022 End: 09-30-2022 take 1 tablet by mouth twice daily as needed for anxiety LORazepam (ATIVAN) 0.5 mg Indications: Malignant neoplasm of both ovaries (HCC) , Omental metastasis , Carcinomatosis (HCC) Take 1 tablet by mouth twice daily as needed for up to 30 days. for anxiety. 60 tablet 0 08/31/2022 09/30/2022 Comment on above: Take 1 tablet by mouth twice daily as ne eded for up to 30 days. for anxiety. Mineral Oil (20 sources) Start: 10-14-2024 End: 11-23-2024 take 15 mL by mouth once daily as needed for constipation mineral oil liquid Take 15 mL by mouth once daily as needed for constipation. 473 mL 10/14/2024 11/23/2024 Discontinued Start: 10-14-2024 take 15 mL by mouth once daily as needed for constipation mineral oil liquid Take 15 mL by mouth once daily as needed for constipation. 473 mL 10/14/2024 Active mirvetuximab soravtansine-gy nx 326.4 mg in D5W 315 mL (ELAHERE) (3 sources) Start: 12-07-2023 End: 12-07-2023 mirvetuximab soravtansine-gy nx 326.4 mg in D5W 315 mL (ELAHERE) Start: 11-17-2023 End: 11-17-2023 mirvetuximab soravtansine-gy nx 326.4 mg in D5W 315 mL (ELAHERE) Start: 10-26-2023 End: 10-26-2023 mirvetuximab soravtansine-gy nx 326.4 mg in D5W 315 mL (ELAHERE) 2 ml ondansetron 2 mg/ml injection (20 sources) Serotonin-3 Receptor Antagonist Start: 08-10-2024 End: 08-10-2024 8 mg, INTRAVENOUS, ONCE, 1 dose, On Wed08/10/24 at 1000 Start: 08-03-2024 End: 08-03-2024 8 mg, INTRAVENOUS, ONCE, 1 d ose, On Wed08/03/24 at 0830 Start: 07-20-2024 End: 07-20-2024 8 mg, INTRAVENOUS, ONCE, 1 d ose, On Wed07/20/24 at 1130 Start: 07-06-2024 End: 07-06-2024 8 mg, INTRAVENOUS, ONCE, 1 d ose, On Wed07/06/24 at 1000 Start: 06-23-2024 End: 06-23-2024 8 mg, INTRAVENOUS, ONCE, 1 d ose, On Wed06/23/24 at 0900 Start: 06-08-2024 End: 06-08-2024 8 mg, INTRAVENOUS, ONCE, 1 d ose, On Wed06/08/24 at 0900 Start: 05-25-2024 End: 05-25-2024 8 mg, INTRAVENOUS, ONCE, 1 d ose, On Wed05/25/24 at 1330 Start: 05-10-2024 End: 05-10-2024 8 mg, INTRAVENOUS, ONCE, 1 d ose, On Wed05/10/24 at 1100 Start: 04-26-2024 End: 04-26-2024 8 mg, INTRAVENOUS, ONCE, 1 d ose, On Wed04/26/24 at 1130 Start: 04-20-2024 End: 04-20-2024 8 mg, INTRAVENOUS, ONCE, 1 d ose, On Wed04/20/24 at 1000 Start: 04-06-2024 End: 04-06-2024 8 mg, INTRAVENOUS, ONCE, 1 d ose, On Wed04/06/24 at 0830 Start: 03-30-2024 End: 03-30-2024 8 mg, INTRAVENOUS, ONCE, 1 d ose, On Wed03/30/24 at 0830 Start: 03-16-2024 End: 03-16-2024 8 mg, INTRAVENOUS, ONCE, 1 d ose, On Wed03/16/24 at 1400 Start: 03-09-2024 End: 03-09-2024 8 mg, INTRAVENOUS, ONCE, 1 d ose, On Wed03/09/24 at 1330 Start: 03-02-2024 End: 03-02-2024 8 mg, INTRAVENOUS, ONCE, 1 d ose, On Wed03/02/24 at 1400 Start: 02-16-2024 End: 02-16-2024 8 mg, INTRAVENOUS, ONCE, 1 d ose, On Wed02/16/24 at 1000 Start: 02-10-2024 End: 02-10-2024 8 mg, INTRAVENOUS, ONCE, 1 d ose, On Wed02/10/24 at 1330 Start: 02-04-2024 End: 02-04-2024 ondansetron (PF) 8 mg inject ion (ZOFRAN) Start: 01-31-2024 take 1 tablet by casey th every eight hours as needed ondansetron (ZOFRAN) 8 mg tablet Take 1 tablet by mouth every 8 hours as needed for nausea/vomiting. 30 tablet 2 01/31/2024 Active 5 ml palonosetron 0.05 mg/ml injection (3 sources) Serotonin-3 Receptor Antagonist Start: 12-07-2023 End: 12-07-2023 palonosetron 0.25 mg injection (ALOXI) Start: 11-17-2023 End: 11-17-2023 palonosetron 0.25 mg injecti on (ALOXI) Start: 10-26-2023 End: 10-26-2023 palonosetron 0.25 mg injecti on (ALOXI) phenol 14 mg/ml mucosal spray (20 sources) Start: 10-13-2024 End: 11-23-2024 phenol (CHLORASEPTIC THROAT SPRAY) 1.4% spray Use 1 spray as instructed every 2 hours as needed. 177 mL 2 10/13/2024 11/23/2024 Discontinued polyethylene glycol 3350 90063 mg powder for oral solution (5 sources) Osmotic Laxative Start: 07-20-2023 End: 07-30-2023 polyethylene glycol 3350 17 gram packet Take 1 Packet by mouth once daily as needed for constipation. Dissolve dose in 4 - 8 ounces of liquid and take as directed. 10 Each 0 07/20/2023 07/30/2023 Discontinued Comment on above: Take 1 Packet by casey th once daily as needed for constipation. Dissolve dose in 4 - 8 ounces of liquid and take as directed. polyethylene glycol 3350 [id number] mg / potassium chloride 2970 mg / sodium bicarbonate 6740 mg / sodium chloride 5860 mg / sodium sulfate 59455 mg powder for oral solution (1 source) Osmotic Laxative Start: 07-26-2024 End: 07-26-2024 peg 3350-Electrolytes (GOLYTELY) 236-22.74-6.74 -5.86 gram suspension Indications: Hemorrhoids, unspecified hemorrhoid type , Rectal bleeding , Dysphagia, unspecified type Take 4,000 mL by mouth one time only for 1 dose. Refer to printed prep instructions from your provider. 4000 mL 07/26/2024 07/26/2024 polyethylene glycol 400 4 mg/ml / propylene glycol 3 mg/ml ophthalmic solution (20 sources) Start: 09-09-2023 End: 12-27-2023 PEG 400-propylene glycol (SYSTANE) 0.4-0.3 % ophthalmic solution Use 1-2 Drops in both eyes as directed. Instill 10 min after steroid drops, 1-2 drops in each eye at least four times daily and as needed for dry eyes for the duration of therapy and for 30 days after the last dose of mirvetuximab. 30 mL 5 09/09/2023 12/27/2023 Discontinued Comment on above: Use 1-2 Drops in bot h eyes as directed. Instill 10 min after steroid drops, 1-2 drops in each eye at least four times daily and as needed for dry eyes for the duration of therapy and for 30 days after the last dose of mirvetuximab. Potassium (3 sources) Start: 11-03-2024 End: 11-28-2024 take 1 tablet by mouth once daily Potassium 20 mg tablet,chewable Discontinued 20 mg PO DAILY November 03, 2024 12:00am November 28, 2024 11:28am Start: 11-03-2024 take 1 tablet by casey once daily Potassium 20 mg tablet,chewable Active 20 mg PO DAILY November 03, 2024 12:00am potassium chloride 10 meq extended release oral tablet (20 sources) Start: 10-23-2024 End: 11-23-2024 take 1 tablet by mouth once daily potassium chloride (K-TAB) 10 mEq tablet Indications: Malignant neoplasm of both ovaries (HCC) Take 1 tablet by mouth once daily. 30 tablet 2 11/09/2024 11/23/2024 Discontinued prednisoLONE acetate 10 mg/ml ophthalmic suspension (18 sources) Corticosteroid Start: 10-15-2023 End: 12-27-2023 prednisoLONE acetate (PRED FORTE) 1 % ophthalmic suspension INSTILL 1 DROP INTO BOTH EYES 4 TIMES DAILY EXCEPT DAY BEFORE CHEMO START 6 DROPS DAILY FOR 8 DAYS, THEN RESUME 4 TIMES DAILY AFTER. 0 10/15/2023 12/27/2023 Discontinued promethazine hydrochloride 25 mg oral tablet (20 sources) Phenothiazine Start: 07-15-2022 End: 08-26-2023 take 1 tablet by mouth every six hours as needed promethazine (PHENERGAN) 25 mg tablet Take 1 tablet by mouth every 6 hours as needed. FOR NAUSEA 30 tablet 2 07/15/2022 08/26/2023 Discontinued (Course of therapy completed) Comment on above: Take 1 tablet by [facility] every 6 hours as needed. FOR NAUSEA ramipril 10 mg oral capsule (20 sources) Angiotensin Converting Enzyme Inhibitor Start: 07-31-2021 End: 11-03-2024 take 1 capsule by mouth once daily Ramipril 10 mg capsule Discontinued 10 mg PO DAILY June 01, 2023 1:00am November 03, 2024 9:36am Comment on above: Take 1 capsule by mo [facility] once daily. Surgical Lubricant Jelly gel (20 sources) Start: 07-01-2022 End: 12-27-2023 Surgical Lubricant Jelly gel For MRI Female Pelvis, MRI department to provide. Administer intra-vaginal Surgilube immediately prior the MRI procedure (total amount to patient toleranace). 5 g 0 07/01/2022 12/27/2023 Discontinued Start: 07-01-2022 Surgical Lubri cant Jelly gel For MRI Female Pelvis, MRI department to provide. Administer intra-vaginal Surgilube immediately prior the MRI procedure (total amount to patient toleranace). 5 g 0 07/01/2022 Active Comment on above: For MRI Female Pelvi s, MRI department to provide. Administer intra-vaginal Surgilube immediately prior the MRI procedure (total amount to patient toleranace). topotecan 4 mg in NaCl 0.9% 62 mL (HYCAMTIN) (2 sources) Start: 04-26-2024 End: 04-26-2024 4 mg (rounded from 4.025 mg = 2.5 mg/m2 1.61 m2 Treatment Plan BSA from Recorded weight), INTRAVENOUS, Administer over 30 Minutes, ONCE, 1 dose, On 04/26/24 at 1130, Approx Total Volume - Expires: 04/27/24 @ 1130 Hazardous Chemotherapy Drug: Use appropriate PPE. Antineoplastic Irritant. Protect from Light. Start: 04-20-2024 End: 04-20-2024 4 mg (rounded from 4.025 mg = 2.5 mg/m2 1.61 m2 Treatment Plan BSA from Recorded weight), INTRAVENOUS, Administer over 30 Minutes, ONCE, 1 dose, On Tiffany 04/20/24 at 1000, Approx Total Volume: exp 1000 04/21/24 (room temp) Hazardous Chemotherapy Drug: Use appropriate PPE. Antineoplastic Irritant. Protect from Light. topotecan 4.83 mg in NaCl 0. 9% 62.83 mL (HYCAMTIN) (11 sources) Start: 07-20-2024 End: 07-20-2024 4.83 mg (3 mg/m2 1.61 m2 Treatment Plan BSA from Recorded weight), INTRAVENOUS, Administer over 30 Minutes, ONCE, 1 dose, On Tiffany 07/20/24 at 1130, Approx Total Volume: exp 1100 07/21/24 (room temp) Hazardous Chemotherapy Drug: Use appropriate PPE. Antineoplastic Irritant. Protect from Light. Start: 07-06-2024 End: 07-06-2024 4.83 mg (3 mg/m2 1.61 m2 Calixto atment Plan BSA from Recorded weight), INTRAVENOUS, Administer over 30 Minutes, ONCE, 1 dose, On Tiffany 07/06/24 at 1000, Approx Total Volume: exp 1000 07/07/24 (room temp) Hazardous Chemotherapy Drug: Use appropriate PPE. Antineoplastic Irritant. Protect from Light. Start: 06-23-2024 End: 06-23-2024 4.83 mg (3 mg/m2 1.61 m2 Calixto atment Plan BSA from Recorded weight), INTRAVENOUS, Administer over 30 Minutes, ONCE, 1 dose, On Wed06/23/24 at 0900, Approx Total Volume: exp 1600 06/23/24 (room temp) Hazardous Chemotherapy Drug: Use appropriate PPE. Antineoplastic Irritant. Protect from Light. Start: 06-08-2024 End: 06-08-2024 4.83 mg (3 mg/m2 1.61 m2 Calixto atment Plan BSA from Recorded weight), INTRAVENOUS, Administer over 30 Minutes, ONCE, 1 dose, On Tiffany 06/08/24 at 0900, Approx Total Volume - Expires: 06/09/24 @ 0900 Hazardous Chemotherapy Drug: Use appropriate PPE. Antineoplastic Irritant. Protect from Light. Start: 05-25-2024 End: 05-25-2024 4.83 mg (3 mg/m2 1.61 m2 Calixto atment Plan BSA from Recorded weight), INTRAVENOUS, Administer over 30 Minutes, ONCE, 1 dose, On Tiffany 05/25/24 at 1330, Approx Total Volume - Expires: 05/26/24 @ 1340 Hazardous Chemotherapy Drug: Use appropriate PPE. Antineoplastic Irritant. Protect from Light. Start: 05-10-2024 End: 05-10-2024 4.83 mg (3 mg/m2 1.61 m2 Calixto atment Plan BSA from Recorded weight), INTRAVENOUS, Administer over 30 Minutes, ONCE, 1 dose, On 05/10/24 at 1100, Approx Total Volume - Expires: 05/11/24 @ 1100 Hazardous Chemotherapy Drug: Use appropriate PPE. Antineoplastic Irritant. Protect from Light. Start: 04-06-2024 End: 04-06-2024 4.83 mg (3 mg/m2 1.61 m2 Calixto atment Plan BSA from Recorded weight), INTRAVENOUS, Administer over 30 Minutes, ONCE, 1 dose, On Tiffany 04/06/24 at 0830, Approx Total Volume: exp 0900 04/07/24 (room temp) Hazardous Chemotherapy Drug: Use appropriate PPE. Antineoplastic Irritant. Protect from Light. Start: 03-30-2024 End: 03-30-2024 4.83 mg (3 mg/m2 1.61 m2 Calixto atment Plan BSA from Recorded weight), INTRAVENOUS, Administer over 30 Minutes, ONCE, 1 dose, On Tiffany 03/30/24 at 0830, Approx Total Volume:exp 03/30/24 @ (room temp) Hazardous Chemotherapy Drug: Use appropriate PPE. Antineoplastic Irritant. Protect from Light. Start: 03-16-2024 End: 03-16-2024 4.83 mg (3 mg/m2 1.61 m2 Calixto atment Plan BSA from Recorded weight), INTRAVENOUS, Administer over 30 Minutes, ONCE, 1 dose, On Tiffany 03/16/24 at 1400, Approx Total Volume: exp 1400 03/17/24 (refrigerated) Hazardous Chemotherapy Drug: Use appropriate PPE. Antineoplastic Irritant. Protect from Light. Start: 03-09-2024 End: 03-09-2024 4.83 mg (3 mg/m2 1.61 m2 Calixto atment Plan BSA from Recorded weight), INTRAVENOUS, Administer over 30 Minutes, ONCE, 1 dose, On Tiffany 03/09/24 at 1330, Approx Total Volume:exp 1400 03/10/24 (refrigerated) Hazardous Chemotherapy Drug: Use appropriate PPE. Antineoplastic Irritant. Protect from Light. Start: 03-02-2024 End: 03-02-2024 4.83 mg (3 mg/m2 1.61 m2 Calixto atment Plan BSA from Recorded weight), INTRAVENOUS, Administer over 30 Minutes, ONCE, 1 dose, On Tiffany 03/02/24 at 1400, Approx Total Volume - Expires: 03/03/24 @ 1355 Hazardous Chemotherapy Drug: Use appropriate PPE. Antineoplastic Irritant. Protect from Light. topotecan 6.44 mg in NaCl 0. 9% 64.44 mL (HYCAMTIN) (3 sources) Start: 02-16-2024 End: 02-16-2024 6.44 mg (4 mg/m2 1.61 m2 Treatment Plan BSA from Recorded weight), INTRAVENOUS, Administer over 30 Minutes, ONCE, 1 dose, On Wed02/16/24 at 1000, Approx Total Volume - Expires: 02/17/24 @ 1000 Hazardous Chemotherapy Drug: Use appropriate PPE. Antineoplastic Irritant. Protect from Light. Start: 02-10-2024 End: 02-10-2024 6.44 mg (4 mg/m2 1.61 m2 Calixto atment Plan BSA from Recorded weight), INTRAVENOUS, Administer over 30 Minutes, ONCE, 1 dose, On Tiffany 02/10/24 at 1330, Approx Total Volume: exp 1400 02/11/24 (refrigerated) Hazardous Chemotherapy Drug: Use appropriate PPE. Antineoplastic Irritant. Protect from Light. Start: 02-04-2024 End: 02-04-2024 topotecan 6.44 mg in NaCl 0. 9% 64.44 mL (HYCAMTIN) triamcinolone acetonide 1 mg/ml topical lotion (20 sources) Corticosteroid Start: 02-05-2023 End: 02-03-2024 triamcinolone (KENALOG) 0.1 % lotion Indications: Malignant neoplasm of both ovaries (HCC) , Hand foot syndrome Apply to affected area twice daily. 60 mL 2 02/05/2023 09/27/2023 Discontinued Comment on above: Apply to affected ar ea twice daily. Problems Active Problems Problem Classification Problem Date Documented Da te Episodic/Chronic Abdominal pain (10 sources) Suprapubic pain; Translations: [Pelvic and perineal pain] Episodic Acute and unspecified renal failure (9 sources) Acute renal failure syndrome; Translations: [Acute kidney failure, unspecified] Onset: 4 07-16-2023 Episodic Anxiety disorders (20 sources) Panic attack; Translations: [Panic disorder [episodic paroxysmal anxiety]] Onset: 3 09-18-2014 Chronic Biliary tract disease (1 source) Other specified diseases of gallbladder; Translations: [Thickening of wall of gallbladder with pericholecystic fluid] Onset: 5 Episodic Cancer of breast (20 sources) Malignant neoplasm of upper-outer quadrant of female breast; Translations: [Malignant neoplasm of upper-outer quadrant of unspecified female breast] Onset: 8 06-16-2021 Chronic Cancer of breast (1 source) History of malignant neoplasm of breast; Translations: [Personal history of malignant neoplasm of breast] Episodic Cancer of other female genital organs (20 sources) Carcinoma of fallopian tube ; 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] Onset: 4 Chronic Cancer of ovary (20 sources) Malignant tumor of ovary; Translations: [Malignant neoplasm of both ovaries] Onset: 9 01-05-2019 Chronic Cancer of ovary (5 sources) History of malignant neoplasm of ovary; Translations: [Personal history of malignant neoplasm of ovary] Episodic Cancer of prostate (2 sources) Malignant tumor of prostate; Translations: [Malignant neoplasm of prostate] Chronic Complications of surgical procedures or medical care (1 source) Drug-induced hypotension; Translations: [Hypotension due to drugs] 07-30-2023 Episodic Deficiency and other anemia (20 sources) Iron deficiency anemia due to blood loss; Translations: [Iron deficiency anemia secondary to blood loss (chronic)] Onset: 4 09-02-2023 Chronic Deficiency and other anemia (3 sources) Iron deficiency anemia secondary to blood loss (chronic); Translations: [Iron deficiency anemia due to chronic blood loss] Onset: 4 Chronic Deficiency and other anemia (6 sources) Microcytic anemia; Translations: [Iron deficiency anemia, unspecified] 09-08-2024 Episodic Deficiency and other anemia (1 source) Iron deficiency anemia, unspecified; Translations: [Microcytic anemia] Onset: 5 Episodic Diseases of white blood cells (1 source) Decreased white blood cell count, unspecified; Translations: [Leukopenia, unspecified type] Onset: 5 Chronic Disorders of lipid metabolism (20 sources) Mixed hyperlipidemia; Translations: [Mixed hyperlipidemia] Onset: 5 04-04-2015 Chronic Disorders of teeth and jaw (1 source) Jaw pain; Translations: [Jaw pain] Episodic Esophageal disorders (20 sources) Gastroesophageal reflux disease without esophagitis; Translations: [Gastro-esophageal reflux disease without esophagitis] Onset: 1 07-24-2020 Chronic Essential hypertension (20 sources) Essential hypertension; Translations: [Essential (primary) hypertension] Onset: 5 04-04-2015 Chronic Fluid and electrolyte disorders (9 sources) Hyponatremia; Translations: [Hypo-osmolality and hyponatremia] Onset: 4 07-16-2023 Episodic Gastrointestinal hemorrhage (18 sources) Blood-tinged feces; Translations: [Melena] Onset: 4 07-16-2023 Episodic Genitourinary symptoms and ill-defined conditions (4 sources) Urge incontinence of urine; Translations: [Urge incontinence] Chronic Genitourinary symptoms and ill-defined conditions (2 sources) Finding of sensation of bladder; Translations: [Other symptoms and signs involving the genitourinary system] Episodic Inflammation; infection of eye (except that caused by tuberculosis or sexually transmitteddisease) (3 sources) Keratitis; Translations: [Unspecified keratitis] 10-20-2023 Episodic Intestinal obstruction without hernia (20 sources) Cecal volvulus; Translations: [Volvulus] Onset: 3 Resolved: 5 06-01-2023 Episodic Malaise and fatigue (7 sources) Fatigue due to chemotherapy; Translations: [Other fatigue] Onset: 5 Episodic Malignant neoplasm without specification of site (20 sources) Carcinomatosis; Translations: [Disseminated malignant neoplasm, unspecified] Onset: 9 01-05-2019 Chronic Menopausal disorders (1 source) Menopausal and postmenopausal disorders; Translations: [Unspecified menopausal and perimenopausal disorder] Chronic Miscellaneous mental health disorders (20 sources) Primary insomnia; Translations: [Primary insomnia] Onset: 2 Chronic Neoplasms of unspecified nature or uncertain behavior (7 sources) Neoplasm of fallopian tube; Translations: [Neoplasm of unspecified behavior of other genitourinary organ] Episodic Nonmalignant breast conditions (1 source) Fibrocystic change of right breast; Translations: [Diffuse cystic mastopathy of right breast] Chronic Nutritional deficiencies (20 sources) Vitamin D deficiency; Translations: [Vitamin D deficiency, unspecified] Onset: 5 Chronic Osteoarthritis (20 sources) Arthritis of right knee; Translations: [Unilateral primary osteoarthritis, right knee] Onset: 2 07-23-2016 Chronic Other aftercare (4 sources) History of malignant neoplasm of female genital organ; Translations: [Encounter for follow-up examination after completed treatment for malignant neoplasm] Episodic Other aftercare (1 source) H/O: malignant neoplasm; Translations: [Encounter for follow-up examination after completed treatment for malignant neoplasm] Episodic Other aftercare (2 sources) Drug therapy finding; Translations: [Encounter for therapeutic drug level monitoring] 05-07-2023 Episodic Other aftercare (1 source) Postoperative visit; Translations: [Encounter for other specified surgical aftercare] 08-23-2023 Episodic Other connective tissue disease (1 source) Swelling of lower limb; Translations: [Other specified soft tissue disorders] 07-30-2023 Episodic Other diseases of kidney and ureters (20 sources) Hydronephrosis; Translations: [Unspecified hydronephrosis] Onset: 5 10-06-2024 Episodic Other female genital disorders (1 source) Pruritus of vagina; Translations: [Other specified noninflammatory disorders of vagina] 09-07-2023 Episodic Other gastrointestinal disorders (20 sources) Malabsorption - iron; Translations: [Intestinal malabsorption, unspecified] Onset: 4 09-02-2023 Chronic Other gastrointestinal disorders (1 source) Intestinal malabsorption, unspecified; Translations: [Iron malabsorption (HCC)] Onset: 4 Chronic Other gastrointestinal disorders (2 sources) Ascites; Translations: [Other ascites] 06-30-2024 Episodic Other gastrointestinal disorders (7 sources) Dysphagia; Translations: [Dysphagia, unspecified] 07-30-2024 Episodic Other gastrointestinal disorders (1 source) Dysphagia, unspecified; Translations: [Dysphagia, unspecified type] Onset: 5 Episodic Other inflammatory condition of skin (1 source) Pruritus of vulva; Translations: [Pruritus vulvae] Episodic Other lower respiratory disease (3 sources) Pneumonitis; Translations: [Other disorders of lung] 12-10-2023 Episodic Other nervous system disorders (20 sources) Neuropathy caused by chemical substance; Translations: [Drug-induced polyneuropathy] Onset: 0 01-08-2020 Chronic Other nervous system disorders (2 sources) Drug-induced polyneuropathy; 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)] Onset: 0 Chronic Other non-traumatic joint disorders (2 sources) Pain in right knee; Translations: [Other acute pain] Episodic Other nutritional; endocrine; and metabolic disorders (20 sources) Metabolic syndrome X; Translations: [Metabolic syndrome] Onset: 8 09-18-2014 Chronic Other upper respiratory disease (2 sources) Bleeding from nose; Translations: [Epistaxis] Episodic Residual codes; unclassified (17 sources) BRCA2 gene mutation positive; Translations: [Genetic susceptibility to malignant neoplasm of breast] Episodic Residual codes; unclassified (1 source) Family history of breast cancer; Translations: [Family history of malignant neoplasm of breast] Episodic Residual codes; unclassified (1 source) Early satiety; Translations: [Early satiety] 07-15-2024 Episodic Residual codes; unclassified (1 source) Bilateral lower limb edema; Translations: [Localized edema] 10-23-2024 Episodic Residual codes; unclassified (1 source) Genetic susceptibility to malignant neoplasm of breast; Translations: [BRCA2 gene mutation positive] Onset: 5 Episodic Residual codes; unclassified (1 source) Genetic susceptibility to other malignant neoplasm; Translations: [BRCA2 gene mutation positive] Onset: 5 Episodic Residual codes; unclassified (1 source) Localized edema; Translations: [Bilateral lower extremity edema] Onset: 5 Episodic Secondary malignancies (20 sources) Secondary malignant neoplasm of omentum; Translations: [Secondary malignant neoplasm of retroperitoneum and peritoneum] Onset: 9 01-05-2019 Chronic Secondary malignancies (20 sources) Malignant ascites; Translations: [Malignant ascites] Onset: 5 06-28-2024 Chronic Secondary malignancies (2 sources) Secondary malignant neoplasm of retroperitoneum and peritoneum; 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)] Onset: 3 Chronic Secondary malignancies (3 sources) Malignant ascites; Translations: [Malignant ascites] Onset: 5 Chronic Unclassified (20 sources) Active living will ; Translations: [Living will on file] Onset: 2 01-29-2022 Unclassified (2 sources) Malignant neoplasm of both ovaries (HCC); Translations: [Malignant neoplasm of both ovaries (HCC)] Onset: 3 Past or Other Problems Problem Classification Problem Date Documented Da te Episodic/Chronic Administrative/social admission (20 sources) Advance directive discussed with patient; Translations: [Other specified counseling] Onset: 3 Episodic Coagulation and hemorrhagic disorders (20 sources) Platelet count below reference range; Translations: [Thrombocytopenia, unspecified] Onset: 2 Resolved: 4 Chronic Deficiency and other anemia (20 sources) Anemia; Translations: [Anemia, unspecified] Onset: 9 01-05-2019 Episodic Deficiency and other anemia (2 sources) Anemia, unspecified; Translations: [Chronic anemia] Onset: 9 Episodic Diabetes mellitus without complication (20 sources) Impaired fasting glycemia; Translations: [Impaired fasting glucose] Onset: 8 Resolved: 5 09-18-2014 Episodic E Codes: Adverse effects of medical drugs (3 sources) Adverse effect of antineoplastic and immunosuppressive drugs, initial encounter; 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)] Onset: 0 Episodic Hemorrhoids (20 sources) Internal hemorrhoids; Translations: [Other hemorrhoids] Onset: 5 09-18-2014 Episodic Immunizations and screening for infectious disease (20 sources) Anti-nuclear factor positive; Translations: [Other specified abnormal immunological findings in serum] Onset: 7 07-01-2017 Episodic Nausea and vomiting (20 sources) Nausea and vomiting; Translations: [Nausea with vomiting, unspecified] Onset: 5 Resolved: 5 06-01-2023 Episodic Noninfectious gastroenteritis (20 sources) Stercoral colitis; Translations: [Other specified noninfective gastroenteritis and colitis] Onset: 5 Resolved: 5 08-14-2024 Episodic Other aftercare (20 sources) Patient encounter status; Translations: [Other program/music director (current) drug therapy] Onset: 1 07-24-2020 Episodic Other bone disease and musculoskeletal deformities (20 sources) Osteopenia; Translations: [Other specified disorders of bone density and structure, unspecified site] Onset: 3 07-23-2016 Episodic Other circulatory disease (20 sources) Non-neoplastic nevus; Translations: [Nevus, non-neoplastic] Onset: 7 07-23-2016 Episodic Other connective tissue disease (20 sources) Cramp in lower limb; Translations: [Cramp and spasm] Onset: 0 01-08-2020 Episodic Other connective tissue disease (20 sources) Triggering of digit; Translations: [Trigger finger, left ring finger] Onset: 1 01-27-2021 Episodic Other connective tissue disease (20 sources) Swelling of upper arm ; Translations: [Other specified soft tissue disorders] Onset: 4 Resolved: 4 07-15-2023 Episodic Other gastrointestinal disorders (20 sources) Constipation; Translations: [Constipation, unspecified] Onset: 5 Resolved: 5 04-04-2015 Episodic Other gastrointestinal disorders (1 source) Constipation, unspecified; Translations: [Constipation, unspecified constipation type] Onset: 5 Episodic Other nervous system disorders (20 sources) Numbness of hand; Translations: [Anesthesia of skin] Onset: 0 01-08-2020 Episodic Other screening for suspected conditions (not mental disorders or infectious disease) (20 sources) Mammography abnormal; Translations: [Other abnormal and inconclusive findings on diagnostic imaging of breast] Onset: 8 Resolved: 5 09-18-2014 Episodic Other skin disorders (20 sources) Disorder of skin pigmentation; Translations: [Disorder of pigmentation, unspecified] Onset: 7 09-18-2014 Episodic Other skin disorders (20 sources) Seborrheic keratosis; Translations: [Other seborrheic keratosis] Onset: 7 07-23-2016 Episodic Other skin disorders (20 sources) Actinic keratosis; Translations: [Actinic keratosis] Onset: 7 07-23-2016 Episodic Other skin disorders (20 sources) Acne; Translations: [Other acne] Onset: 8 Resolved: 5 07-23-2016 Episodic Residual codes; unclassified (20 sources) History of left mastectomy; Translations: [Acquired absence of left breast and nipple] Onset: 8 07-07-2018 Episodic Residual codes; unclassified (20 sources) Flushing; Translations: [Flushing] Onset: 0 01-08-2020 Episodic Residual codes; unclassified (12 sources) Active living will ; Translations: [Other specified health status] Onset: 2 07-31-2021 Episodic Residual codes; unclassified (20 sources) Postoperative state; Translations: [Other specified postprocedural states] Onset: 4 Resolved: 4 07-15-2023 Episodic Residual codes; unclassified (20 sources) History of colectomy; Translations: [Acquired absence of other specified parts of digestive tract] Onset: 4 08-06-2023 Episodic Residual codes; unclassified (20 sources) At risk of delirium; Translations: [Other specified personal risk factors, not elsewhere classified] Onset: 5 Resolved: 5 08-14-2024 Episodic Residual codes; unclassified (1 source) Acquired absence of other specified parts of digestive tract; Translations: [S/P colectomy] Onset: 4 Episodic Screening and history of mental health and substance abuse codes (1 source) Encounter for screening for depression; Translations: [Screening for depression] Onset: 5 Episodic Results Test Name Value Interpretation Reference Range Facility CA 125on 01-01-2025 Cancer Ag 125 Qn 111 [arb'U]/mL High NINF - 39 U/mL [facility] Comment on above: CA 125 test methodol ogy used is the Electrochemiluminescence Immunoassay by [facility]. Results obtained with different methods or kits cannot be used interchangeably. The reference interval is based on the 95th percentile of 240 apparently healthy premenopausal and postmenopausal women. At a cutoff value of 65 U/mL, the test sensitivity to distinguish ovarian carcinoma (FIGO stage I to IV) versus benign gynecological disease is 79%, with a specificity of 82%. Reference: Cancer Antigen 125 (CA 125 II) [package insert V 1.0 [place]]. [facility], [place], [place] (March 2015) CBC W Auto Differential pane l (Bld)on 01-01-2025 Basophils (Bld) [#/Vol] [facility] Basophils/100 WBC (Bld) 0.4 % [facility] Differential cell count method Nom (Bld) Auto [facility] Eosinophils (Bld) [#/Vol] 0.07 10*3/uL [facility] Eosinophils/100 WBC (Bld) 1.4 % [facility] Erythrocyte distribution width (RBC) [Ratio] 20.2 % High 11.5 - 15.0 % [facility] Hematocrit (Bld) [Volume fraction] 34.2 % Low 36.0 - 46.0 % [facility] Hemoglobin (Bld) [Mass/Vol] 10.8 g/dL Low 11.5 - 15.5 g/dL [facility] Immature granulocytes (Bld) [#/Vol] [facility] Immature granulocytes/100 WBC (Bld) 0.4 % [facility] Interpretation and review of laboratory results Abnormal [facility] Lymphocytes (Bld) [#/Vol] 1.24 10*3/uL [facility] Lymphocytes/100 WBC (Bld) 24.5 % [facility] MCH (RBC) [Entitic mass] 29.6 pg 26.0 - 34.[address] [facility] MCHC (RBC) [Mass/Vol] 31.6 g/dL 30.5 - 36.0 g/dL [facility] MCV (RBC) [Entitic vol] 93.7 fL 80.0 - 100.[address] [facility] Monocytes (Bld) [#/Vol] 0.44 10*3/uL [facility] Monocytes/100 WBC (Bld) 8.7 % [facility] Neutrophils (Bld) [#/Vol] 3.28 10*3/uL [facility] Neutrophils/100 WBC (Bld) 64.6 % [facility] Nucleated RBC (Bld) [#/Vol] [facility] Nucleated RBC/100 WBC (Bld) [Ratio] 0 % /[address] [facility] Platelet mean volume (Bld) [Entitic vol] 9.6 fL 9.0 - 12.[address] [facility] Platelets (Bld) [#/Vol] 120 10*3/uL Low [facility] RBC (Bld) [#/Vol] 3.65 10*6/uL Low 3.90 - 5.2 0 m/uL [facility] WBC (Bld) [#/Vol] 5.07 10*3/uL [facility] Cancer Ag 125 Qnon Interpretation and review of laboratory results Abnormal [facility] CBC W Auto Differential pane l (Bld)on 12-25-2024 Basophils (Bld) [#/Vol] 0.03 10*3/uL [facility] Basophils/100 WBC (Bld) 0.4 % [facility] Differential cell count method Nom (Bld) Auto [facility] Eosinophils (Bld) [#/Vol] 0.06 10*3/uL [facility] Eosinophils/100 WBC (Bld) 0.9 % [facility] Erythrocyte distribution width (RBC) [Ratio] 22.1 % High 11.5 - 15.0 % [facility] Hematocrit (Bld) [Volume fraction] 31.4 % Low 36.0 - 46.0 % [facility] Hemoglobin (Bld) [Mass/Vol] 10 g/dL Low 11.5 - 15.5 g/dL [facility] Immature granulocytes (Bld) [#/Vol] 0.06 10*3/uL [facility] Immature granulocytes/100 WBC (Bld) 0.9 % [facility] Interpretation and review of laboratory results Abnormal [facility] Lymphocytes (Bld) [#/Vol] 1.32 10*3/uL [facility] Lymphocytes/100 WBC (Bld) 18.9 % [facility] MCH (RBC) [Entitic mass] 29.3 pg 26.0 - 34.[address] [facility] MCHC (RBC) [Mass/Vol] 31.8 g/dL 30.5 - 36.0 g/dL [facility] MCV (RBC) [Entitic vol] 92.1 fL 80.0 - 100.[address] [facility] Monocytes (Bld) [#/Vol] 0.51 10*3/uL [facility] Monocytes/100 WBC (Bld) 7.3 % [facility] Neutrophils (Bld) [#/Vol] 4.99 10*3/uL [facility] Neutrophils/100 WBC (Bld) 71.6 % [facility] Nucleated RBC (Bld) [#/Vol] [facility] Nucleated RBC/100 WBC (Bld) [Ratio] 0 % /[address] [facility] Platelet mean volume (Bld) [Entitic vol] 9.5 fL 9.0 - 12.[address] [facility] Platelets (Bld) [#/Vol] 103 10*3/uL Low [facility] RBC (Bld) [#/Vol] 3.41 10*6/uL Low 3.90 - 5.2 0 m/uL [facility] WBC (Bld) [#/Vol] 6.97 10*3/uL [facility] CBC W Auto Differential pane l (Bld)on 12-18-2024 Basophils (Bld) [#/Vol] [facility] Basophils/100 WBC (Bld) 0.4 % [facility] Differential cell count method Nom (Bld) Auto [facility] Eosinophils (Bld) [#/Vol] 0.04 10*3/uL [facility] Eosinophils/100 WBC (Bld) 0.8 % [facility] Erythrocyte distribution width (RBC) [Ratio] 23.7 % High 11.5 - 15.0 % [facility] Hematocrit (Bld) [Volume fraction] 33.2 % Low 36.0 - 46.0 % [facility] Hemoglobin (Bld) [Mass/Vol] 10.3 g/dL Low 11.5 - 15.5 g/dL [facility] Immature granulocytes (Bld) [#/Vol] 0.04 10*3/[facility] Immature granulocytes/100 WBC (Bld) 0.8 % [facility] Interpretation and review of laboratory results Abnormal [facility] Lymphocytes (Bld) [#/Vol] 1.24 10*3/uL [facility] Lymphocytes/100 WBC (Bld) 23.3 % [facility] MCH (RBC) [Entitic mass] 29 pg 26.0 - 34.[address] [facility] MCHC (RBC) [Mass/Vol] 31 g/dL 30.5 - 36.0 g/dL [facility] MCV (RBC) [Entitic vol] 93.5 fL 80.0 - 100.[address] [facility] Monocytes (Bld) [#/Vol] 0.49 10*3/uL [facility] Monocytes/100 WBC (Bld) 9.2 % [facility] Neutrophils (Bld) [#/Vol] 3.49 10*3/uL [facility] Neutrophils/100 WBC (Bld) 65.5 % [facility] Nucleated RBC (Bld) [#/Vol] [facility] Nucleated RBC/100 WBC (Bld) [Ratio] [facility] Platelet mean volume (Bld) [Entitic vol] 10.1 fL 9.0 - 12.[address] [facility] Platelets (Bld) [#/Vol] 154 10*3/uL [facility] RBC (Bld) [#/Vol] 3.55 10*6/uL Low 3.90 - 5.2 0 m/uL [facility] WBC (Bld) [#/Vol] 5.32 10*3/uL [facility] CBC W Auto Differential pane l (Bld)on 12-14-2024 Basophils (Bld) [#/Vol] NINF [facility] Basophils/100 WBC (Bld) 0.4 % [facility] Differential cell count method Nom (Bld) Auto [facility] Eosinophils (Bld) [#/Vol] 0.03 10*3/uL [facility] Eosinophils/100 WBC (Bld) 0.6 % [facility] Erythrocyte distribution width (RBC) [Ratio] 24.7 % High 11.5 - 15.0 % [facility] Hematocrit (Bld) [Volume fraction] 31.1 % Low 36.0 - 46.0 % [facility] Hemoglobin (Bld) [Mass/Vol] 10.1 g/dL Low 11.5 - 15.5 g/dL [facility] Immature granulocytes (Bld) [#/Vol] 0.05 10*3/uL [facility] Immature granulocytes/100 WBC (Bld) 0.9 % [facility] Interpretation and review of laboratory results Abnormal [facility] Lymphocytes (Bld) [#/Vol] 1.18 10*3/uL [facility] Lymphocytes/100 WBC (Bld) 22.1 % [facility] MCH (RBC) [Entitic mass] 29.3 pg 26.0 - 34.[address] [facility] MCHC (RBC) [Mass/Vol] 32.5 g/dL 30.5 - 36.0 g/dL [facility] MCV (RBC) [Entitic vol] 90.1 fL 80.0 - 100.[address] [facility] Monocytes (Bld) [#/Vol] 0.54 10*3/uL [facility] Monocytes/100 WBC (Bld) 10.1 % [facility] Neutrophils (Bld) [#/Vol] 3.52 10*3/uL [facility] Neutrophils/100 WBC (Bld) 65.9 % [facility] Nucleated RBC (Bld) [#/Vol] [facility] Nucleated RBC/100 WBC (Bld) [Ratio] 0 % /[address] [facility] Platelet mean volume (Bld) [Entitic vol] 9.7 fL 9.0 - 12.[address] [facility] Platelets (Bld) [#/Vol] 151 10*3/uL [facility] RBC (Bld) [#/Vol] 3.45 10*6/uL Low 3.90 - 5.2 0 m/uL [facility] WBC (Bld) [#/Vol] 5.34 10*3/uL [facility] CBC W Auto Differential pane l (Bld)on 12-11-2024 Basophils (Bld) [#/Vol] 0.05 10*3/uL [facility] Basophils/100 WBC (Bld) 0.9 % [facility] Differential cell count method Nom (Bld) Auto [facility] Eosinophils (Bld) [#/Vol] 0.06 10*3/uL [facility] Eosinophils/100 WBC (Bld) 1.1 % [facility] Erythrocyte distribution width (RBC) [Ratio] 24.9 % High 11.5 - 15.0 % [facility] Hematocrit (Bld) [Volume fraction] 31.6 % Low 36.0 - 46.0 % [facility] Hemoglobin (Bld) [Mass/Vol] 10 g/dL Low 11.5 - 15.5 g/dL [facility] Immature granulocytes (Bld) [#/Vol] 0.04 10*3/uL [facility] Immature granulocytes/100 WBC (Bld) 0.7 % [facility] Interpretation and review of laboratory results Abnormal [facility] Lymphocytes (Bld) [#/Vol] 1.14 10*3/uL [facility] Lymphocytes/100 WBC (Bld) 20.6 % [facility] MCH (RBC) [Entitic mass] 28.7 pg 26.0 - 34.[address] [facility] MCHC (RBC) [Mass/Vol] 31.6 g/dL 30.5 - 36.0 g/dL [facility] MCV (RBC) [Entitic vol] 90.5 fL 80.0 - 100.[address] [facility] Monocytes (Bld) [#/Vol] 0.45 10*3/uL [facility] Monocytes/100 WBC (Bld) 8.1 % [facility] Neutrophils (Bld) [#/Vol] 3.79 10*3/uL [facility] Neutrophils/100 WBC (Bld) 68.6 % [facility] Nucleated RBC (Bld) [#/Vol] [facility] Nucleated RBC/100 WBC (Bld) [Ratio] 0 % /[address] [facility] Platelet mean volume (Bld) [Entitic vol] 9.7 fL 9.0 - 12.[address] [facility] Platelets (Bld) [#/Vol] 169 10*3/uL [facility] RBC (Bld) [#/Vol] 3.49 10*6/uL Low 3.90 - 5.2 0 m/uL [facility] WBC (Bld) [#/Vol] 5.53 10*3/uL [facility] CBC W Auto Differential pane l (Bld)on 12-04-2024 Basophils (Bld) [#/Vol] 0.03 10*3/uL [facility] Basophils/100 WBC (Bld) 0.9 % [facility] Differential cell count method Nom (Bld) Auto [facility] Eosinophils (Bld) [#/Vol] 0.04 10*3/uL [facility] Eosinophils/100 WBC (Bld) 1.1 % [facility] Erythrocyte distribution width (RBC) [Ratio] 24.7 % High 11.5 - 15.0 % [facility] Hematocrit (Bld) [Volume fraction] 29.1 % Low 36.0 - 46.0 % [facility] Hemoglobin (Bld) [Mass/Vol] 9.4 g/dL Low 11.5 - 15.5 g/dL [facility] Immature granulocytes (Bld) [#/Vol] 0.05 10*3/uL [facility] Immature granulocytes/100 WBC (Bld) 1.4 % [facility] Interpretation and review of laboratory results Abnormal [facility] Lymphocytes (Bld) [#/Vol] 1.07 10*3/uL [facility] Lymphocytes/100 WBC (Bld) 30.7 % [facility] MCH (RBC) [Entitic mass] 28.7 pg 26.0 - 34.[address] [facility] MCHC (RBC) [Mass/Vol] 32.3 g/dL 30.5 - 36.0 g/dL [facility] MCV (RBC) [Entitic vol] 88.7 fL 80.0 - 100.[address] [facility] Monocytes (Bld) [#/Vol] 0.47 10*3/uL [facility] Monocytes/100 WBC (Bld) 13.5 % [facility] Neutrophils (Bld) [#/Vol] 1.82 10*3/uL [facility] Neutrophils/100 WBC (Bld) 52.4 % [facility] Nucleated RBC (Bld) [#/Vol] [facility] Nucleated RBC/100 WBC (Bld) [Ratio] 0 % /[address] [facility] Platelet mean volume (Bld) [Entitic vol] 9.2 fL 9.0 - 12.[address] [facility] Platelets (Bld) [#/Vol] 139 10*3/uL Low [facility] RBC (Bld) [#/Vol] 3.28 10*6/uL Low 3.90 - 5.2 0 m/uL [facility] WBC (Bld) [#/Vol] 3.48 10*3/uL Low [facility] CBC W Auto Differential pane l (Bld)on 11-30-2024 Anisocytosis Ql (Bld) [facility] Basophils (Bld) [#/Vol] 0.04 10*3/uL [facility] Basophils/100 WBC (Bld) 2 % [facility] Dacrocytes LM Ql (Bld) Few Cl [facility] Differential cell count method Nom (Bld) Manual [facility] Eosinophils (Bld) [#/Vol] 0 10*3/uL [facility] Eosinophils/100 WBC (Bld) 0 % [facility] Erythrocyte distribution width (RBC) [Ratio] 23.9 % High 11.5 - 15.0 % [facility] Hematocrit (Bld) [Volume fraction] 28 % Low 36.0 - 46.0 % [facility] Hemoglobin (Bld) [Mass/Vol] 9 g/dL Low 11.5 - 15.5 g/dL [facility] Interpretation and review of laboratory results Abnormal [facility] Lymphocytes (Bld) [#/Vol] 0.82 10*3/uL Low [facility] Lymphocytes/100 WBC (Bld) 42 % [facility] MCH (RBC) [Entitic mass] 27.8 pg 26.0 - 34.[address] [facility] MCHC (RBC) [Mass/Vol] 32.1 g/dL 30.5 - 36.0 g/dL [facility] MCV (RBC) [Entitic vol] 86.4 fL 80.0 - 100.[address] [facility] Monocytes (Bld) [#/Vol] 0.25 10*3/uL [facility] Monocytes/100 WBC (Bld) 13 % [facility] Neutrophils (Bld) [#/Vol] 0.84 10*3/uL Low [facility] Neutrophils/100 WBC (Bld) 43 % [facility] Nucleated RBC (Bld) [#/Vol] 0.02 10*3/uL High NINF [facility] Nucleated RBC/100 WBC (Bld) [Ratio] 1 % /[address] [facility] Ovalocytes LM Ql (Bld) Few Cl [facility] Platelet mean volume (Bld) [Entitic vol] 9.9 fL 9.0 - 12.[address] [facility] Platelets (Bld) [#/Vol] 120 10*3/uL Low [facility] Platelets Estimate (Bld) [#/Vol] Decreased [facility] RBC (Bld) [#/Vol] 3.24 10*6/uL Low 3.90 - 5.2 0 m/uL [facility] RBC Fragments Few Abnormal None Seen [facility] Red Cell Morph Reviewed: see result s of individual morphologies [facility] WBC (Bld) [#/Vol] 1.96 10*3/uL Low [facility] Comment on above: No clot detected. This is an appended report. These results have been appended to a previously verified report. [facility] BRCon 11-27-2024 Normal [facility] Comment on above: Result Comment: [id number] OP RC TRANSFUSED 11/28/24 1129 Performed By: #### B , BTS #### [facility] [address] [place], [place], [id number] [place] 125on 11-27-2024 Cancer Ag 125 Qn 202 [arb'U]/mL High NINF - 39 U/mL [facility] Comment on above: [place] 125 test methodol ogy used is the Electrochemiluminescence Immunoassay by [employer]. Results obtained with different methods or kits cannot be used interchangeably. The reference interval is based on the 95th percentile of 240 apparently healthy premenopausal and postmenopausal women. At a cutoff value of 65 U/mL, the test sensitivity to distinguish ovarian carcinoma (FIGO stage I to IV) versus benign gynecological disease is 79%, with a specificity of 82%. Reference: Cancer Antigen 125 (CA 125 II) [package insert V 1.0 [place]]. [employer], [place], [place] (March 2015) CBC W Auto Differential pane l (Bld)on 11-27-2024 Basophils (Bld) [#/Vol] [facility] Basophils/100 WBC (Bld) 0.3 % [facility] Differential cell count method Nom (Bld) Auto [facility] Eosinophils (Bld) [#/Vol] 0.03 10*3/uL [facility] Eosinophils/100 WBC (Bld) 1 % [facility] Erythrocyte distribution width (RBC) [Ratio] 25.1 % High 11.5 - 15.0 % [facility] Hematocrit (Bld) [Volume fraction] 23.6 % Low 36.0 - 46.0 % [facility] Hemoglobin (Bld) [Mass/Vol] 7.4 g/dL Low 11.5 - 15.5 g/dL [facility] Immature granulocytes (Bld) [#/Vol] [facility] Immature granulocytes/100 WBC (Bld) 0.7 % [facility] Interpretation and review of laboratory results Abnormal [facility] Lymphocytes (Bld) [#/Vol] 0.75 10*3/uL Low [facility] Lymphocytes/100 WBC (Bld) 25 % [facility] MCH (RBC) [Entitic mass] 26.7 pg 26.0 - 34.[address] [facility] MCHC (RBC) [Mass/Vol] 31.4 g/dL 30.5 - 36.0 g/dL [facility] MCV (RBC) [Entitic vol] 85.2 fL 80.0 - 100.[address] [facility] Monocytes (Bld) [#/Vol] 0.19 10*3/uL [facility] Monocytes/100 WBC (Bld) 6.3 % [facility] Neutrophils (Bld) [#/Vol] 2 10*3/uL [facility] Neutrophils/100 WBC (Bld) 66.7 % [facility] Nucleated RBC (Bld) [#/Vol] [facility] Nucleated RBC/100 WBC (Bld) [Ratio] 0 % /[address] [facility] Platelet mean volume (Bld) [Entitic vol] 9.6 fL 9.0 - 12.[address] [facility] Platelets (Bld) [#/Vol] 100 10*3/uL Low [facility] Comment on above: No clot detected. RBC (Bld) [#/Vol] 2.77 10*6/uL Low 3.90 - 5.2 0 m/uL [facility] WBC (Bld) [#/Vol] 3 10*3/uL Low [facility] Cancer Ag 125 Qnon Interpretation and review of laboratory results Abnormal [facility] Type AND Screenon 11-27-2024 ABO and Rh group Nom (Bld) Blood group O Rh(D) positive Normal [facility] Comment on above: Order Comment: PRETR ANSFUSION HGB = 7.4 HCT = 23.6 PERFORMED AT [facility] N [id number] N Y A Performed By: #### B , BTS #### [facility] [address] [place], [place], [id number] CBC W Auto Differential pane l (Bld)on 11-23-2024 Basophils (Bld) [#/Vol] 0.03 10*3/uL [facility] Basophils/100 WBC (Bld) 1.2 % [facility] Differential cell count method Nom (Bld) Auto [facility] Eosinophils (Bld) [#/Vol] [facility] Eosinophils/100 WBC (Bld) 0.4 % [facility] Erythrocyte distribution width (RBC) [Ratio] 24.7 % High 11.5 - 15.0 % [facility] Hematocrit (Bld) [Volume fraction] 23.8 % Low 36.0 - 46.0 % [facility] Hemoglobin (Bld) [Mass/Vol] 7.6 g/dL Low 11.5 - 15.5 g/dL [facility] Immature granulocytes (Bld) [#/Vol] 0.03 10*3/uL [facility] Immature granulocytes/100 WBC (Bld) 1.2 % [facility] Interpretation and review of laboratory results Abnormal [facility] Lymphocytes (Bld) [#/Vol] 0.66 10*3/uL Low [facility] Lymphocytes/100 WBC (Bld) 26.6 % [facility] MCH (RBC) [Entitic mass] 27.3 pg 26.0 - 34.[address] [facility] MCHC (RBC) [Mass/Vol] 31.9 g/dL 30.5 - 36.0 g/dL [facility] MCV (RBC) [Entitic vol] 85.6 fL 80.0 - 100.[address] [facility] Monocytes (Bld) [#/Vol] 0.13 10*3/uL [facility] Monocytes/100 WBC (Bld) 5.2 % [facility] Neutrophils (Bld) [#/Vol] 1.62 10*3/uL [facility] Neutrophils/100 WBC (Bld) 65.4 % [facility] Nucleated RBC (Bld) [#/Vol] [facility] Nucleated RBC/100 WBC (Bld) [Ratio] 0 % /[address] [facility] Platelet mean volume (Bld) [Entitic vol] 8.5 fL Low 9.0 - 12.[address] [facility] Platelets (Bld) [#/Vol] 114 10*3/uL Low [facility] RBC (Bld) [#/Vol] 2.78 10*6/uL Low 3.90 - 5.2 0 m/uL [facility] WBC (Bld) [#/Vol] 2.48 10*3/uL Low [facility] CBC W Auto Differential pane l (Bld)on 11-16-2024 Basophils (Bld) [#/Vol] 0.03 10*3/uL [facility] Basophils/100 WBC (Bld) 0.6 % [facility] Differential cell count method Nom (Bld) Auto [facility] Eosinophils (Bld) [#/Vol] 0.03 10*3/uL [facility] Eosinophils/100 WBC (Bld) 0.6 % [facility] Erythrocyte distribution width (RBC) [Ratio] 24.7 % High 11.5 - 15.0 % [facility] Hematocrit (Bld) [Volume fraction] 27.1 % Low 36.0 - 46.0 % [facility] Hemoglobin (Bld) [Mass/Vol] 8.6 g/dL Low 11.5 - 15.5 g/dL [facility] Immature granulocytes (Bld) [#/Vol] 0.03 10*3/uL [facility] Immature granulocytes/100 WBC (Bld) 0.6 % [facility] Interpretation and review of laboratory results Abnormal [facility] Lymphocytes (Bld) [#/Vol] 0.94 10*3/uL Low [facility] Lymphocytes/100 WBC (Bld) 18.6 % [facility] MCH (RBC) [Entitic mass] 27 pg 26.0 - 34.[address] [facility] MCHC (RBC) [Mass/Vol] 31.7 g/dL 30.5 - 36.0 g/dL [facility] MCV (RBC) [Entitic vol] 85 fL 80.0 - 100.[address] [facility] Monocytes (Bld) [#/Vol] 0.55 10*3/uL NINF [facility] Monocytes/100 WBC (Bld) 10.9 % [facility] Neutrophils (Bld) [#/Vol] 3.47 10*3/uL [facility] Neutrophils/100 WBC (Bld) 68.7 % [facility] Nucleated RBC (Bld) [#/Vol] NINF [facility] Nucleated RBC/100 WBC (Bld) [Ratio] 0 % /[address] [facility] Platelet mean volume (Bld) [Entitic vol] 9.2 fL 9.0 - 12.[address] [facility] Platelets (Bld) [#/Vol] 179 10*3/uL [facility] RBC (Bld) [#/Vol] 3.19 10*6/uL Low 3.90 - 5.2 0 m/uL [facility] WBC (Bld) [#/Vol] 5.05 10*3/uL [facility] Comprehensive metabolic 2000 panelOrdered By: Tiffany Caceres on 11-16-2024 Albumin [Mass/Vol] 3.6 g/dL Low 3.9 - 4.9 g/dL [facility] ALP [Catalytic activity/Vol] 70 U/L 34 - 123 U/L [facility] ALT [Catalytic activity/Vol] 9 U/L 7 - 38 U/L [facility] Anion gap [Moles/Vol] 12 mmol/L 8 - 15 mmol/L [facility] AST [Catalytic activity/Vol] 15 U/L 13 - 35 U/L [facility] Bilirubin [Mass/Vol] 0.5 mg/dL 0.2 - 1 .3 mg/dL [facility] Calcium [Mass/Vol] 8.9 mg/dL 8.5 - 10. 2 mg/dL [facility] Chloride [Moles/Vol] 101 mmol/L 98 - 10 7 mmol/L [facility] CO2 [Moles/Vol] 22 mmol/L 22 - 30 mmol/L [facility] Creatinine [Mass/Vol] 0.7 mg/dL 0.58 - 0.96 mg/dL [facility] GFR/1.73 sq M.predicted among non-blacks MDRD (S/P/Bld) [Vol rate/Area] 90 mL/min/{1.73_m2} - PINF [facility] Comment on above: Estimated Glomerular Filtration Rate (eGFR) is calculated using the 2020 CKD-EPI creatinine equation. This equation utilizes serum creatinine, sex, and age as parameters. The creatinine assay has traceable calibration to isotope dilution-mass spectrometry. Refer to KDIGO guidelines for clinical interpretation. In patients with unstable renal function, e.g. those with acute kidney injury, the eGFR may not accurately reflect actual GFR. Glucose [Mass/Vol] 121 mg/dL High 74 - 99 mg/dL [facility] Comment on above: The [place] [employer] (ADA) provides guidance for cutoff values for fasting glucose and random glucose. The ADA defines fasting as no caloric intake for at least 8 hours. Fasting plasma glucose results between 100 to 125 mg/dL indicate increased risk for diabetes (prediabetes). Fasting plasma glucose results greater than or equal to 126 mg/dL meet the criteria for diagnosis of diabetes. In the absence of unequivocal hyperglycemia, results should be confirmed by repeat testing. In a patient with classic symptoms of hyperglycemia or hyperglycemic crisis, random plasma glucose results greater than or equal to 200 mg/dL meet the criteria for diagnosis of diabetes. Reference: Standards of Medical Care in Diabetes 2016, [place] [employer]. Diabetes Care. 2016.39(Suppl 1). Interpretation and review of laboratory results Abnormal [facility] Potassium [Moles/Vol] 3.8 mmol/L 3.7 - 5.1 mmol/L [facility] Protein [Mass/Vol] 6.6 g/dL 6.3 - 8.0 g/dL [facility] Sodium [Moles/Vol] 135 mmol/L Low 136 - 144 mmol/L [facility] Urea nitrogen [Mass/Vol] 16 mg/dL 7 - 21 mg/dL [facility] CBC W Auto Differential pane l (Bld)on 11-06-2024 Basophils (Bld) [#/Vol] NINF [facility] Basophils/100 WBC (Bld) 0.6 % [facility] Differential cell count method Nom (Bld) Auto [facility] Eosinophils (Bld) [#/Vol] 0.06 10*3/uL [facility] Eosinophils/100 WBC (Bld) 1.8 % [facility] Erythrocyte distribution width (RBC) [Ratio] 22.6 % High 11.5 - 15.0 % [facility] Hematocrit (Bld) [Volume fraction] 27.9 % Low 36.0 - 46.0 % [facility] Hemoglobin (Bld) [Mass/Vol] 8.8 g/dL Low 11.5 - 15.5 g/dL [facility] Immature granulocytes (Bld) [#/Vol] [facility] Immature granulocytes/100 WBC (Bld) 0.3 % [facility] Interpretation and review of laboratory results Abnormal [facility] Lymphocytes (Bld) [#/Vol] 1 10*3/uL [facility] Lymphocytes/100 WBC (Bld) 29.2 % [facility] MCH (RBC) [Entitic mass] 26 pg 26.0 - 34.[address] [facility] MCHC (RBC) [Mass/Vol] 31.5 g/dL 30.5 - 36.0 g/dL [facility] MCV (RBC) [Entitic vol] 82.5 fL 80.0 - 100.[address] [facility] Monocytes (Bld) [#/Vol] 0.27 10*3/uL [facility] Monocytes/100 WBC (Bld) 7.9 % [facility] Neutrophils (Bld) [#/Vol] 2.06 10*3/uL [facility] Neutrophils/100 WBC (Bld) 60.2 % [facility] Nucleated RBC (Bld) [#/Vol] [facility] Nucleated RBC/100 WBC (Bld) [Ratio] 0 % /[address] [facility] Platelet mean volume (Bld) [Entitic vol] 9 fL 9.0 - 12.[address] [facility] Platelets (Bld) [#/Vol] 139 10*3/uL Low [facility] RBC (Bld) [#/Vol] 3.38 10*6/uL Low 3.90 - 5.2 0 m/uL [facility] WBC (Bld) [#/Vol] 3.42 10*3/uL Low [facility] BRCon 11-02-2024 RC Normal [facility] Comment on above: Result Comment: [id number] OP RC TRANSFUSED 11/03/24 0949 Performed By: #### B , [facility] #### [facility] [address] [place], [address] CBC W Auto Differential pane l (Bld)on 11-02-2024 Basophils (Bld) [#/Vol] [facility] Basophils/100 WBC (Bld) 0.6 % [facility] Differential cell count method Nom (Bld) Auto [facility] Eosinophils (Bld) [#/Vol] 0.04 10*3/uL [facility] Eosinophils/100 WBC (Bld) 1.3 % [facility] Erythrocyte distribution width (RBC) [Ratio] 22.6 % High 11.5 - 15.0 % [facility] Hematocrit (Bld) [Volume fraction] 22.9 % Low 36.0 - 46.0 % [facility] Hemoglobin (Bld) [Mass/Vol] 7 g/dL Low 11.5 - 15.5 g/dL [facility] Immature granulocytes (Bld) [#/Vol] [facility] Immature granulocytes/100 WBC (Bld) 0.6 % [facility] Interpretation and review of laboratory results Abnormal [facility] Lymphocytes (Bld) [#/Vol] 0.75 10*3/uL Low [facility] Lymphocytes/100 WBC (Bld) 24.4 % [facility] MCH (RBC) [Entitic mass] 24.9 pg Low 26.0 - 34.[address] [facility] MCHC (RBC) [Mass/Vol] 30.6 g/dL 30.5 - 36.0 g/dL [facility] MCV (RBC) [Entitic vol] 81.5 fL 80.0 - 100.[address] [facility] Monocytes (Bld) [#/Vol] 0.22 10*3/uL [facility] Monocytes/100 WBC (Bld) 7.1 % [facility] Neutrophils (Bld) [#/Vol] 2.03 10*3/uL [facility] Neutrophils/100 WBC (Bld) 66 % [facility] Nucleated RBC (Bld) [#/Vol] [facility] Nucleated RBC/100 WBC (Bld) [Ratio] 0 % /[address] [facility] Platelet mean volume (Bld) [Entitic vol] 10.1 fL 9.0 - 12.[address] [facility] Platelets (Bld) [#/Vol] 170 10*3/uL [facility] RBC (Bld) [#/Vol] 2.81 10*6/uL Low 3.90 - 5.2 0 m/uL [facility] WBC (Bld) [#/Vol] 3.08 10*3/uL Low [facility] Type AND Screenon 11-02-2024 Ab SCREEN GEL Negative Normal [facility] Comment on above: Order Comment: PRETR ANSFUSION HGB = 7.0 HCT = 22.9 PERFORMED AT [facility] N 11/03/2024 @0930 N Y A Performed By: #### B , [facility] #### [facility] [address] [place], [address] [facility]WENCES[facility] Heather) -- JORGESAVANA ([id number]) 1950 F Date Time Provider Department 10/31/24 [place]ANG [facility]OTE During your visit today, we recorded the following information about you: Godwin Mirza, SHEILA 10/31/2024 10:42 AM Signed Attempted to call Savana, regarding population health navigation outreach telephone encounter. Per Alexa Laird CNP, Savana does not need an appointment unless she desires one. No answer, left message to return call if she feels she needs to schedule. Godwin Mirza RN Allergies As of Date: 10/31/2024 Noted Allergy Reaction PENICILLINS 06/08/2005 2 - Rash SULFA (SULFONAMIDE ANTIBIOTICS) 06/08/2005 16 - Unknown Date Reviewed: 10/27/2024 Reviewed by: Brandon Sutherland MA - Fully Assessed Reason for Visit: Appointment [[id number]] Prescriptions as of 10/31/2024 - potassium chloride (K-TAB) 10 mEq tablet Take 1 tablet by mouth once daily. - bisacodyl (DULCOLAX) 10 mg supp 1 suppository by RECTAL route once daily as needed for constipation. - mineral oil liquid Take 15 mL by mouth once daily as needed for constipation. - phenol (CHLORASEPTIC THROAT SPRAY) 1.4% spray Use 1 spray as instructed every 2 hours as needed. - prochlorperazine (COMPAZINE) 10 mg tablet Take 1 tablet by mouth every 6 hours as needed (For chemotherapy induced nausea and vomiting.). - olaparib (LYNPARZA) 150 mg tablet Take 2 tablets (300 mg) by mouth two times a day. - ondansetron (ZOFRAN) 8 mg tablet Take 1 tablet by mouth every 8 hours as needed for nausea/vomiting. - acetaminophen (TYLENOL) 500 mg tablet Take 2 tablets by mouth every 8 hours. Facility-Administered Medications as of 10/31/2024 - NaCl 0.9% iv infusion - diphenhydrAMINE 50 mg injection (BENADRYL) - hydrocortisone sodium succinate (PF) 100 mg injection (Solu-CORTEF) - EPINEPHrine HCl (PF) 1 mg/mL (1 mL) 0.3 mg injection Problem List As Of Date 10/31/2024 Noted Resolved Internal hemorrhoids without mention of complic* SOLAR LENGINES///DYSCHROMIA OTHER [L81.9] 02/18/2007 Other seborrheic keratosis [L82.1] 02/18/2007 [place] ANGIOMA///NEVUS, NON-NEOPLASTIC [I78.1] 02/18/2007 Actinic keratosis [L57.0] 04/12/2007 Abnormal mammogram, unspecified [R92.8] 10/25/2007 09/18/2014 BREAST CANCER UPPER OUTER(Left, 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] 11/01/2007 Impaired fasting glucose [R73.01] 11/21/2007 10/06/2024 Dysmetabolic syndrome X [E88.810] 12/28/2007 Other acne [L70.8] 05/29/2008 10/06/2024 Arthritis of knee, right [M17.11] 06/16/2012 Panic attacks [F41.0] 07/18/2012 Osteopenia [M85.80] 12/28/2012 Visit for routine employee relations consultant exam [Z01.419] 04/04/2015 10/06/2024 Essential hypertension [I10] 04/04/2015 Mixed hyperlipidemia [E78.2] 04/04/2015 Constipation [K59.00] 04/04/2015 10/06/2024 Well adult exam [Z00.00] 12/13/2015 07/13/2019 DEANDRE positive [R76.8] 07/25/2016 Osteoarthritis of multiple joints [M15.9] 07/27/2016 Medicare annual wellness visit, subsequent [Z00*07/01/2017 History of left mastectomy [Z90.12] 05/05/2018 Carcinomatosis (HCC) [C80.0] 10/06/2018 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]10/26/2018 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 Anemia [D64.9] 11/07/2018 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] 07/14/2023 Post-operative state [Z98.890] 07/15/2023 03/01/2024 Swelling of upper arm [M79.89] 07/15/2023 03/01/2024 S/P colectomy [Z90.49] 08/06/2023 Iron deficiency anemia due to chronic blood los*09/02/2023 Iron malabsorption [K90.9] 09/02/2023 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 Differential cell count method Nom (Bld) Auto [facility] Eosinophils (Bld) [#/Vol] [facility] Eosinophils/100 WBC (Bld) 0.4 % [facility] Erythrocyte distribution width (RBC) [Ratio] 21.8 % High 11.5 - 15.0 % [facility] Hematocrit (Bld) [Volume fraction] 24.5 % Low 36.0 - 46.0 % [facility] Hemoglobin (Bld) [Mass/Vol] 7.6 g/dL Low 11.5 - 15.5 g/dL [facility] Immature granulocytes (Bld) [#/Vol] [facility] Immature granulocytes/100 WBC (Bld) 0.4 % [facility] Interpretation and review of laboratory results Abnormal [facility] Lymphocytes (Bld) [#/Vol] 0.89 10*3/uL Low [facility] Lymphocytes/100 WBC (Bld) 19.3 % [facility] MCH (RBC) [Entitic mass] 24.8 pg Low 26.0 - 34.[address] [facility] MCHC (RBC) [Mass/Vol] 31 g/dL 30.5 - 36.0 g/dL [facility] MCV (RBC) [Entitic vol] 79.8 fL Low 80.0 - 100.[address] [facility] Monocytes (Bld) [#/Vol] 0.36 10*3/uL NINF [facility] Monocytes/100 WBC (Bld) 7.8 % [facility] Neutrophils (Bld) [#/Vol] 3.3 10*3/uL [facility] Neutrophils/100 WBC (Bld) 71.7 % [facility] Nucleated RBC (Bld) [#/Vol] NINF [facility] Nucleated RBC/100 WBC (Bld) [Ratio] 0 % /[address] [facility] Platelet mean volume (Bld) [Entitic vol] 9.8 fL 9.0 - 12.[address] [facility] Platelets (Bld) [#/Vol] 202 10*3/uL [facility] RBC (Bld) [#/Vol] 3.07 10*6/uL Low 3.90 - 5.2 0 m/uL [facility] WBC (Bld) [#/Vol] 4.61 10*3/uL [facility] Comprehensive metabolic 2000 panelOrdered By: Janet Vick on 10-27-2024 Albumin [Mass/Vol] 3.1 g/dL Low 3.9 - 4.9 g/dL [facility] ALP [Catalytic activity/Vol] 63 U/L 34 - 123 U/L [facility] ALT [Catalytic activity/Vol] 9 U/L 7 - 38 U/L [facility] Anion gap [Moles/Vol] 9 mmol/L 8 - 15 mmol/L [facility] AST [Catalytic activity/Vol] 15 U/L 13 - 35 U/L [facility] Bilirubin [Mass/Vol] 0.5 mg/dL 0.2 - 1 .3 mg/dL [facility] Calcium [Mass/Vol] 9 mg/dL 8.5 - 10. 2 mg/dL [facility] Chloride [Moles/Vol] 101 mmol/L 98 - 10 7 mmol/L [facility] CO2 [Moles/Vol] 24 mmol/L 22 - 30 mmol/L [facility] Creatinine [Mass/Vol] 0.73 mg/dL 0.58 - 0.96 mg/dL [facility] GFR/1.73 sq M.predicted among non-blacks MDRD (S/P/Bld) [Vol rate/Area] 86 mL/min/{1.73_m2} - PINF [facility] Comment on above: Estimated Glomerular Filtration Rate (eGFR) is calculated using the 2020 CKD-EPI creatinine equation. This equation utilizes serum creatinine, sex, and age as parameters. The creatinine assay has traceable calibration to isotope dilution-mass spectrometry. Refer to KDIGO guidelines for clinical interpretation. In patients with unstable renal function, e.g. those with acute kidney injury, the eGFR may not accurately reflect actual GFR. Glucose [Mass/Vol] 109 mg/dL High 74 - 99 mg/dL [facility] Comment on above: The [place] Di[employer] Association (ADA) provides guidance for cutoff values for fasting glucose and random glucose. The ADA defines fasting as no caloric intake for at least 8 hours. Fasting plasma glucose results between 100 to 125 mg/dL indicate increased risk for diabetes (prediabetes). Fasting plasma glucose results greater than or equal to 126 mg/dL meet the criteria for diagnosis of diabetes. In the absence of unequivocal hyperglycemia, results should be confirmed by repeat testing. In a patient with classic symptoms of hyperglycemia or hyperglycemic crisis, random plasma glucose results greater than or equal to 200 mg/dL meet the criteria for diagnosis of diabetes. Reference: Standards of Medical Care in Diabetes 2016, [place] [employer]. Diabetes Care. 2016.39(Suppl 1). Interpretation and review of laboratory results Abnormal [facility] Potassium [Moles/Vol] 4.1 mmol/L 3.7 - 5.1 mmol/L [facility] Protein [Mass/Vol] 6.3 g/dL 6.3 - 8.0 g/dL [facility] Sodium [Moles/Vol] 134 mmol/L Low 136 - 144 mmol/L [facility] Urea nitrogen [Mass/Vol] 13 mg/dL 7 - 21 mg/dL [facility] MAGNESIUMon 10-27-2024 Magnesium [Mass/Vol] 1.7 mg/dL 1.7 - 2 .3 mg/dL [facility] Magnesium [Mass/Vol]on 10-27 Interpretation and review of laboratory results Normal [facility] No Panel Informationon 10-27 [facility] US Lower extremity vein - bi lateralon 10-24-2024 IMPRESSION: Negative study for proximal DVT in the left and right lower extremities. Negative study for calf DVT in the left and right lower extremities. Negative study for superficial thrombophlebitis in the imaged segments of the left and right lower extremities. Security Ambassador: PSCB Transcribe Date/Time: Oct 24 2024 5:49A Dictated by : TITUS RAMIREZ MD This examination was interpreted and the report reviewed and electronically signed by: TITUS RAMIREZ MD on Oct 24 2024 5:50AM [facility] DIVISION OF RADIOLOGY * * *Final Report* * * DATE OF EXAM: Oct 23 2024 12:32PM WRU 1005 - US DVT LOWER OLGA / PROCEDURE REASON: multiple diagnoses * * * * Physician Interpretation * * * * EXAMINATION: RIGHT AND LEFT LOWER EXTREMITY DEEP VENOUS ULTRASOUND WITH DOPPLER IMAGING CLINICAL HISTORY: Lower extremity edema TECHNIQUE: Grayscale with compression maneuvers, color Doppler and spectral Doppler imaging of the right and left proximal deep veins was performed. Grayscale with compression maneuvers of the right and left peroneal and posterior tibial veins was performed. The right and left great and small saphenous veins were evaluated at their insertion to the deep system. Images were obtained and stored in a permanent archive and interpreted remotely. MQ: USLEB_1 COMPARISON: None RESULT: RIGHT LOWER EXTREMITY PROXIMAL DEEP VEINS Distal External Iliac, Common Femoral and Proximal Profunda Veins: Compression: Normal Doppler: Normal, spontaneous respirophasic flow. Normal response to augmentation. Femoral vein: Compression: Normal Doppler: Normal, spontaneous respirophasic flow. Normal response to augmentation. Popliteal vein: Compression: Normal Doppler: Normal, spontaneous respirophasic flow. Normal response to augmentation. CALF DEEP VEINS Peroneal veins: Normal compression. Posterior tibial veins: Normal compression. Gastrocnemius and Soleal veins: Not imaged. SUPERFICIAL VEINS Great saphenous: Patent and compressible at insertion into common femoral vein; not otherwise assessed. Small Saphenous: Patent and compressible in the proximal calf, not otherwise assessed. LEFT LOWER EXTREMITY PROXIMAL DEEP VEINS Distal External Iliac, Common Femoral and Proximal Profunda Veins: Compression: Normal Doppler: Normal, spontaneous respirophasic flow. Normal response to augmentation. Femoral vein: Compression: Normal Doppler: Normal, spontaneous respirophasic flow. Normal response to augmentation. Popliteal vein: Compression: Normal Doppler: Normal, spontaneous respirophasic flow. Normal response to augmentation. CALF DEEP VEINS Peroneal veins: Normal compression. Posterior tibial veins: Normal compression. Gastrocnemius and Soleal veins: Not imaged. SUPERFICIAL VEINS Great saphenous: Patent and compressible at insertion into common femoral vein; not otherwise assessed. Small Saphenous: Patent and compressible in the proximal calf, not otherwise assessed. DIVISION OF RADIOLOGY Provider, [facility] - 10/24/2024 * * *Final Report* * * DATE OF EXAM: Oct 23 2024 12:32PM WRU 1005 - US DVT LOWER OLGA / PROCEDURE REASON: multiple diagnoses * * * * Physician Interpretation * * * * EXAMINATION: RIGHT AND LEFT LOWER EXTREMITY DEEP VENOUS ULTRASOUND WITH DOPPLER IMAGING CLINICAL HISTORY: Lower extremity edema TECHNIQUE: Grayscale with compression maneuvers, color Doppler and spectral Doppler imaging of the right and left proximal deep veins was performed. Grayscale with compression maneuvers of the right and left peroneal and posterior tibial veins was performed. The right and left great and small saphenous veins were evaluated at their insertion to the deep system. Images were obtained and stored in a permanent archive and interpreted remotely. MQ: USLEB_1 COMPARISON: None RESULT: RIGHT LOWER EXTREMITY PROXIMAL DEEP VEINS Distal External Iliac, Common Femoral and Proximal Profunda Veins: Compression: Normal Doppler: Normal, spontaneous respirophasic flow. Normal response to augmentation. Femoral vein: Compression: Normal Doppler: Normal, spontaneous respirophasic flow. Normal response to augmentation. Popliteal vein: Compression: Normal Doppler: Normal, spontaneous respirophasic flow. Normal response to augmentation. CALF DEEP VEINS Peroneal veins: Normal compression. Posterior tibial veins: Normal compression. Gastrocnemius and Soleal veins: Not imaged. SUPERFICIAL VEINS Great saphenous: Patent and compressible at insertion into common femoral vein; not otherwise assessed. Small Saphenous: Patent and compressible in the proximal calf, not otherwise assessed. LEFT LOWER EXTREMITY PROXIMAL DEEP VEINS Distal External Iliac, Common Femoral and Proximal Profunda Veins: Compression: Normal Doppler: Normal, spontaneous respirophasic flow. Normal response to augmentation. Femoral vein: Compression: Normal Doppler: Normal, spontaneous respirophasic flow. Normal response to augmentation. Popliteal vein: Compression: Normal Doppler: Normal, spontaneous respirophasic flow. Normal response to augmentation. CALF DEEP VEINS Peroneal veins: Normal compression. Posterior tibial veins: Normal compression. Gastrocnemius and Soleal veins: Not imaged. SUPERFICIAL VEINS Great saphenous: Patent and compressible at insertion into common femoral vein; not otherwise assessed. Small Saphenous: Patent and compressible in the proximal calf, not otherwise assessed. IMPRESSION IMPRESSION: Negative study for proximal DVT in the left and right lower extremities. Negative study for calf DVT in the left and right lower extremities. Negative study for superficial thrombophlebitis in the imaged segments of the left and right lower extremities. Security Ambassador: SUMMER Transcribe Date/Time: Oct 24 2024 5:49A Dictated by : TITUS RAMIREZ MD This examination was interpreted and the report reviewed and electronically signed by: TITUS RAMIREZ MD on Oct 24 2024 5:50AM EST [facility] US Lower extremity vein - bi lateralOrdered By: Stanislaw Provider on 10-24-2024 [facility] Comprehensive metabolic 2000 panelOrdered By: Tiffany Caceres on 10-23-2024 Albumin [Mass/Vol] 3 g/dL Low 3.9 - 4.9 g/dL [facility] ALP [Catalytic activity/Vol] 66 U/L 34 - 123 U/L [facility] ALT [Catalytic activity/Vol] 10 U/L 7 - 38 U/L [facility] Anion gap [Moles/Vol] 8 mmol/L 8 - 15 mmol/L [facility] AST [Catalytic activity/Vol] 14 U/L 13 - 35 U/L [facility] Bilirubin [Mass/Vol] 0.4 mg/dL 0.2 - 1 .3 mg/dL [facility] Calcium [Mass/Vol] 8.6 mg/dL 8.5 - 10. 2 mg/dL [facility] Chloride [Moles/Vol] 102 mmol/L 98 - 10 7 mmol/L [facility] CO2 [Moles/Vol] 24 mmol/L 22 - 30 mmol/L [facility] Creatinine [Mass/Vol] 0.57 mg/dL Low 0.58 - 0.96 mg/dL [facility] GFR/1.73 sq M.predicted among non-blacks MDRD (S/P/Bld) [Vol rate/Area] 95 mL/min/{1.73_m2} - PINF [facility] Comment on above: Estimated Glomerular Filtration Rate (eGFR) is calculated using the 2020 CKD-EPI creatinine equation. This equation utilizes serum creatinine, sex, and age as parameters. The creatinine assay has traceable calibration to isotope dilution-mass spectrometry. Refer to KDIGO guidelines for clinical interpretation. In patients with unstable renal function, e.g. those with acute kidney injury, the eGFR may not accurately reflect actual GFR. Glucose [Mass/Vol] 118 mg/dL High 74 - 99 mg/dL [facility] Comment on above: The [place] Diab[employer] Association (ADA) provides guidance for cutoff values for fasting glucose and random glucose. The ADA defines fasting as no caloric intake for at least 8 hours. Fasting plasma glucose results between 100 to 125 mg/dL indicate increased risk for diabetes (prediabetes). Fasting plasma glucose results greater than or equal to 126 mg/dL meet the criteria for diagnosis of diabetes. In the absence of unequivocal hyperglycemia, results should be confirmed by repeat testing. In a patient with classic symptoms of hyperglycemia or hyperglycemic crisis, random plasma glucose results greater than or equal to 200 mg/dL meet the criteria for diagnosis of diabetes. Reference: Standards of Medical Care in Diabetes 2016, [place] [employer]. Diabetes Care. 2016.39(Suppl 1). Interpretation and review of laboratory results Abnormal [facility] Potassium [Moles/Vol] 3.5 mmol/L Low 3.7 - 5.1 mmol/L [facility] Protein [Mass/Vol] 6.1 g/dL Low 6.3 - 8.0 g/dL [facility] Sodium [Moles/Vol] 134 mmol/L Low 136 - 144 mmol/L [facility] Urea nitrogen [Mass/Vol] 11 mg/dL 7 - 21 mg/dL [facility] US Lower extremity vein - bi lateralon 10-23-2024 Radiology Study observation (narrative) [facility] Brittani 10-20-2024 TANESHA Telephone (LOGAN Romero) -- SAVANA PATEL ([id number]) 1950 F Date Time Provider Department 10/20/24 FANG COTE During your visit today, we recorded the following information about you: Godwin Mirza RN 10/20/2024 4:12 PM Signed Called and spoke with Savana, reviewed DVT US scheduled at [facility] on Monday 10/23 at 11:30 am. Savana verbalized understanding, repeated back date, time and location. Encouraged her to call office with any further questions or concerns. Godwin Mirza RN Allergies As of Date: 10/20/2024 Noted Allergy Reaction PENICILLINS 06/08/2005 2 - Rash SULFA (SULFONAMIDE ANTIBIOTICS) 06/08/2005 16 - Unknown Date Reviewed: 10/13/2024 Reviewed by: Marian Marks, SHEILA - Fully Assessed Reason for Visit: Appointment [186] Prescriptions as of 10/20/2024 - bisacodyl (DULCOLAX) 10 mg supp 1 suppository by RECTAL route once daily as needed for constipation. - mineral oil liquid Take 15 mL by mouth once daily as needed for constipation. - phenol (CHLORASEPTIC THROAT SPRAY) 1.4% spray Use 1 spray as instructed every 2 hours as needed. - prochlorperazine (COMPAZINE) 10 mg tablet Take 1 tablet by mouth every 6 hours as needed (For chemotherapy induced nausea and vomiting.). - olaparib (LYNPARZA) 150 mg tablet Take 2 tablets (300 mg) by mouth two times a day. - ondansetron (ZOFRAN) 8 mg tablet Take 1 tablet by mouth every 8 hours as needed for nausea/vomiting. - acetaminophen (TYLENOL) 500 mg tablet Take 2 tablets by mouth every 8 hours. 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] 11/01/2007 Impaired fasting glucose [R73.01] 11/21/2007 10/06/2024 Dysmetabolic syndrome X [E88.810] 12/28/2007 Other acne [L70.8] 05/29/2008 10/06/2024 Arthritis of knee, right [M17.11] 06/16/2012 Panic attacks [F41.0] 07/18/2012 Osteopenia [M85.80] 12/28/2012 Visit for routine employee relations consultant exam [Z01.419] 04/04/2015 10/06/2024 Essential hypertension [I10] 04/04/2015 Mixed hyperlipidemia [E78.2] 04/04/2015 Constipation [K59.00] 04/04/2015 10/06/2024 Well adult exam [Z00.00] 12/13/2015 07/13/2019 DEANDRE positive [R76.8] 07/25/2016 Osteoarthritis of multiple joints [M15.9] 07/27/2016 Medicare annual wellness visit, subsequent [Z00*07/01/2017 History of left mastectomy [Z90.12] 05/05/2018 Carcinomatosis (HCC) [C80.0] 10/06/2018 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]10/26/2018 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 Anemia [D64.9] 11/07/2018 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] 07/14/2023 Post-operative state [Z98.890] 07/15/2023 03/01/2024 Swelling of upper arm [M79.89] 07/15/2023 03/01/2024 S/P colectomy [Z90.49] 08/06/2023 Iron deficiency anemia due to chronic blood los*09/02/2023 Iron malabsorption [K90.9] 09/02/2023 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] 08/14/2024 08/14/2024 At risk for delirium [Z91.89] 08/14/2024 08/14/2024 SBO (small bowel obstruction) (HCC) [K56.609] 10/06/2024 10/14/2024 Nausea AND vomiting [R11.2] 10/06/2024 10/14/2024 Small bowel obstruction (HCC) [K56.609] 10/06/2024 Hydronephrosis [N13.30] 10/06/2024 Severe protein-calorie malnutrition (HCC) [E43] 10/06/2024 Malignant ascites (HCC) [R18.0] 10/14/2024 Encounter Status:Closed by GODWIN MIRZA on 10/20/24 Normal [facility] Basic metabolic 2000 panelon 10-14-2024 Anion gap [Moles/Vol] 10 mmol/L [facility] Comment on above: Order Comment: Speci men Type: BLOOD SPECIMENOrdering Facility: [facility] Address: [address] [place] [address] Performed By: #### 2 4321-2, 68867-2 ####[facility] LABORATORYCLIA [id number] [place] [address] [place] Calcium [Mass/Vol] 9.1 mg/dL Normal 8.5-10.2 [facility] Comment on above: Order Comment: Speci men Type: BLOOD SPECIMENOrdering Facility: [facility] Address: [address] [place] [address] Performed By: #### 2 4321-2, ####[facility] LABORATORYCLIA [id number] [place] [address] [place] Chloride [Moles/Vol] 102 mmol/L Normal 98-107 [facility] Comment on above: Order Comment: Speci men Type: BLOOD SPECIMENOrdering Facility: [facility] Address: [address] [place] [address] Performed By: #### 2 432-2, ####[facility] LABORATORYCLIA [id number] [address] STATES OF [facility] CO2 [Moles/Vol] 25 mmol/L Normal 22-30 [facility] Comment on above: Order Comment: Speci men Type: BLOOD SPECIMENOrdering Facility: [facility] Address: [address] [place] [address] Performed By: #### 2 4322, ####[facility] LABORATORYCLIA [id number] [address] [place] Creatinine [Mass/Vol] 0.62 mg/dL Normal 0.58-0.96 [facility] Comment on above: Order Comment: Speci men Type: BLOOD SPECIMENOrdering Facility: [facility] Address: [address] [place] [address] Performed By: #### 2 432-2, ####[facility] LABORATORYCLIA [id number] [address] Creatinine and Glomerular filtration rate.predicted panel (S/P/Bld) 93 mL/min/1.73m??? Normal >=60 [facility] Comment on above: Order Comment: Speci men Type: BLOOD SPECIMENOrdering Facility: [facility] Address: [address] [place] [address] Result Comment: Myranda mated Glomerular Filtration Rate (eGFR) is calculated using the 2020 CKD-EPI creatinine equation. This equation utilizes serum creatinine, sex, and age as parameters. The creatinine assay has traceable calibration to isotope dilution-mass spectrometry. Refer to KDIGO guidelines for clinical interpretation. In patients with unstable renal function, e.g. those with acute kidney injury, the eGFR may not accurately reflect actual GFR. Performed By: #### 2 432-, ####[facility] LABORATORYCLIA [id number] [place] [address] [place] Glucose [Mass/Vol] 78 mg/dL Normal 74-99 [facility] Comment on above: Order Comment: Pete tilley Type: BLOOD SPECIMENOrdering Facility: [facility] Address: [address] [place] [address] Result Comment: The [place] [employer] Association (ADA) provides guidance for cutoff values for fasting glucose and random glucose. The ADA defines fasting as no caloric intake for at least 8 hours. Fasting plasma glucose results between 100 to 125 mg/dL indicate increased risk for diabetes (prediabetes). Fasting plasma glucose results greater than or equal to 126 mg/dL meet the criteria for diagnosis of diabetes. In the absence of unequivocal hyperglycemia, results should be confirmed by repeat testing. In a patient with classic symptoms of hyperglycemia or hyperglycemic crisis, random plasma glucose results greater than or equal to 200 mg/dL meet the criteria for diagnosis of diabetes. Reference: Standards of Medical Care in Diabetes 2016, [place] [employer]. Diabetes Care. 2016.39(Suppl 1). Performed By: #### 2 432-, ####[facility] LABORATORYCLIA [id number] [place] [id number] [place] Potassium [Moles/Vol] 3.8 mmol/L Normal 3.7-5.1 [facility] Comment on above: Order Comment: Pete tilley Type: BLOOD SPECIMENOrdering Facility: [facility] Address: [address] [id number] Performed By: #### 2 4320-2, ####[facility] LABORATORYCLIA [id number] [place] [address] [place] Sodium [Moles/Vol] 137 mmol/L Normal 136-144 [facility] Comment on above: Order Comment: Speci men Type: BLOOD SPECIMENOrdering Facility: [facility] Address: [address] [place] [address] Performed By: #### 2 4322, ####[facility] LABORATORYCLIA [id number] [place] [id number] [place] Urea nitrogen [Mass/Vol] 18 mg/dL Normal 7-21 [facility] Comment on above: Order Comment: Speci men Type: BLOOD SPECIMENOrdering Facility: [facility] Address: [address] [place] [address] Performed By: #### 2 2, ####[facility] LABORATORYCLIA [id number] [address] STATES OF [facility] CBC panel Auto (Bld)on 10-14 Erythrocyte distribution width (RBC) [Ratio] 21.9 % High 11.5-15.0 [facility] Comment on above: Order Comment: Speci men Type: BLOOD SPECIMENOrdering Facility: [facility] Address: [address] [place] [address] Performed By: #### 5 8410-2 ####[facility] LABORATORYCLIA [id number] [address] [place] Hematocrit (Bld) [Volume fraction] 26.3 % Low 36.0-46.0 [facility] Comment on above: Order Comment: Speci men Type: BLOOD SPECIMENOrdering Facility: [facility] Address: [address] [place] [address] Performed By: #### 5 8410-2 ####[facility] LABORATORYCLIA [id number] [address] [place] Hemoglobin (Bld) [Mass/Vol] 8.2 g/dL Low 11.5-15.5 [facility] Comment on above: Order Comment: Speci men Type: BLOOD SPECIMENOrdering Facility: [facility] Address: [address] [place] [address] Performed By: #### 5 8410-2 ####[facility] LABORATORYCLIA [id number] [address] MCH (RBC) [Entitic mass] 25.6 pg Low 26.0-34.0 [facility] Comment on above: Order Comment: Speci men Type: BLOOD SPECIMENOrdering Facility: [facility] Address: [address] [place] [address] Performed By: #### 5 8410-2 ####[facility] LABORATORYCLIA [id number] [address] MCHC (RBC) [Mass/Vol] 31.2 g/dL Normal 30.5-36.0 [facility] Comment on above: Order Comment: Speci men Type: BLOOD SPECIMENOrdering Facility: [facility] Address: [address] [place] [address] Performed By: #### 5 8410-2 ####[facility]ORATORYCLIA [id number] [address] MCV (RBC) [Entitic vol] 82.2 fL Normal 80.0-100.0 [facility] Comment on above: Order Comment: Speci men Type: BLOOD SPECIMENOrdering Facility: [facility] Address: [address] [place] [address] Performed By: #### 5 8410-2 ####[facility] LABORATORYCLIA [id number] [address] Nucleated RBC (Bld) [#/Vol] 10*3/uL Normal <0.01 [facility] Comment on above: Order Comment: Speci men Type: BLOOD SPECIMENOrdering Facility: [facility] Address: [address] [place] [address] Performed By: #### 5 8410-2 ####[facility] LABORATORYCLIA [id number] [address] [place] Platelet mean volume (Bld) [Entitic vol] 10.3 fL Normal 9.0-12.7 [facility] Comment on above: Order Comment: Speci men Type: BLOOD SPECIMENOrdering Facility: [facility] Address: [address] [place] [address] Performed By: #### 5 8410-2 ####[facility]ORATORYCLIA [id number] [address] [place] Platelets (Bld) [#/Vol] 192 10*3/uL Normal 150-400 [facility] Comment on above: Order Comment: Speci men Type: BLOOD SPECIMENOrdering Facility: [facility] Address: [address] [place] [address] Performed By: #### 5 8410-2 ####[facility] LABORATORYCLIA [id number] [address] STATES [facility] RBC (Bld) [#/Vol] 3.20 10*6/uL Low 3.90-5.20 [facility] Comment on above: Order Comment: Speci men Type: BLOOD SPECIMENOrdering Facility: [facility] Address: [address] [place] [address] Performed By: #### 5 8410-2 ####[facility] LABORATORYCLIA [id number] [address] [place] WBC (Bld) [#/Vol] 6.48 10*3/uL Normal 3.70-11.00 [facility] Comment on above: Order Comment: Speci men Type: BLOOD SPECIMENOrdering Facility: [facility] Address: [address] [place] [address] Performed By: #### 5 8410-2 ####[facility] LABORATORYCLIA [id number] [address] CNDSon 10-14-2024 CNDS HNO ID: [id number] Author: FANG COTE MD Service: Gynecology Oncology Author Type: Resident Type: Discharge Summary Filed: 10/14/2024 11:56 Note Text: -- Attestation signed by Fang Cote MD at 10/14/2024 11:56 AM I evaluated the patient and personally participated in the braun components. I agree with the resident's findings and plan as documented and have discussed the case and management of the patient's care with the resident. Signature: Fang Cote MD Service Date: 10/14/2024 Service Time: 11:56 AM -- DISCHARGE SUMMARY PATIENT NAME: Savana Patel ADMISSION DATE: 10/05/2024 DISCHARGE DATE: 10/14/2024 ATTENDING PHYSICIAN: Fang Cote MD Code Status: DNR-CCA, DNI Highest Readmission Risk Score: 18 The 30 day readmissions risk score is derived from an internally validated risk model which evaluates patient level characteristics, utilization history, medication orders and lab results up until the day of discharge. Patients with a score of 39 or above are considered highest risk for readmission. Specific patient level drivers will be listed at the bottom of the summary. CONSULTING TEAMS DURING HOSPITALIZATION: Nutrition Treatment Team: Attending Provider: Fang Cote MD REASON FOR HOSPITALIZATION: Malignant small bowel obstruction DIAGNOSIS: Principal Problem: Small bowel obstruction (HCC) (POA: Yes) Active Problems: Carcinoma of fallopian tube, unspecified laterality (HCC) (POA: Yes) Hydronephrosis (POA: Yes) Severe protein-calorie malnutrition (HCC) (POA: Yes) Resolved Problems: SBO (small bowel obstruction) (HCC) (POA: Yes) Nausea AND vomiting (POA: Yes) OPERATIONS DURING HOSPITALIZATION: None PROCEDURES DURING HOSPITALIZATION: No procedures performed HOSPITAL COURSE: Savana Patel is a 74 year old with 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 The patient was having increasing nausea and emesis and was managed medically. She started a course of Decadron on 10/11 which significantly improved her symptoms and her diet was then slowly advanced. She did not require an NG tube during her admission. The patient's symptoms improved and she was able to tolerate a regular diet by the time of discharge. Nutrition was consulted during her admission as well. She was discharged home on 10/14 with plans for outpatient follow up with Dr. Cote. She will restart her Lynparza after cleared in the office to do so after discharge. Transitions of Care Critical Issues: SPECIALIST FOLLOW-UP: [facility] LABS AND PROCEDURES PENDING AT DISCHARGE: No pending results. PATIENT CONDITION AT DISCHARGE: Stable DISCHARGE DISPOSITION: Pending, Home with Self Alf with Self Care WOUND/SURGICAL SITE CARE: None DIET: Mechanical soft diet: Includes liquids and minced and soft consistency solids ACTIVITY: Resume pre-hospital activity ALLERGIES Allergen Reactions Penicillins Rash Sulfa (Sulfonamide * Unknown DISCHARGE MEDICATION: Medication List START taking these medications bisacodyl 10 mg Supp Commonly known as: DULCOLAX 1 suppository by RECTAL route once daily as needed for constipation. mineral oil liquid Take 15 mL by mouth once daily as needed for constipation. phenol 1.4 % Spra Commonly known as: CHLORASEPTIC Use 1 spray as instructed every 2 hours as needed. CONTINUE taking these medications acetaminophen 500 mg tablet Commonly known as: TYLENOL Take 2 tablets by mouth every 8 hours. olaparib 150 mg tablet Commonly known as: LYNPARZA Take 2 tablets (300 mg) by mouth two times a day. ondansetron 8 mg tablet Commonly known as: ZOFRAN Take 1 tablet by mouth every 8 hours as needed for nausea/vomiting. prochlorperazine 10 mg tablet Commonly known as: COMPAZINE Take 1 tablet by mouth every 6 hours as needed (For chemotherapy induced nausea and vomiting.). STOP taking these medications COLACE ORAL omeprazole 40 mg capsule Commonly known as: PriLOSEC senna-docusate 8.6-50 mg per tablet Commonly known as: SENNA-S Where to Get Your Medications These medications were sent to [facility] [address] [place] [address] - [address] [place] [address] - [phone] [place] [address] bisacodyl 10 mg Supp mineral oil liquid phenol 1.4 % Spra FUTURE APPOINTMENTS: Future Appointments Date Time Provider Department Center 2025 7:20 AM Shay Cardoza MD [facility] The patient's risk for 30-day readmission is determined using the following contributing factors: Predictive Model Details 12% (Low) Factor Value Calculated 10/14/2024 05:19 20% Hospital [facility] [place] 54[facility] ONCOLOGY [facility] RE (more content not included)... Normal [facility] Magnesium SerPl-mCncon 10-14 Magnesium [Mass/Vol] 1.9 mg/dL Normal 1.7-2.3 [facility] Comment on above: Order Comment: Speci men Type: BLOOD SPECIMENOrdering Facility: [facility] Address: [address] [place] [address] Performed By: #### 2 4321-2, ####[facility] LABORATORYCLIA [id number] [place] [address] [place] Basic metabolic 2000 panelon 10-13-2024 Anion gap [Moles/Vol] 11 mmol/L Normal 8-15 [facility] Comment on above: Order Comment: Speci men Type: BLOOD SPECIMENOrdering Facility: [facility] Address: [address] [place] [address] Performed By: #### 2 4321-2, ####[facility]ORATORYCLIA [id number] [place] [address] [place] Calcium [Mass/Vol] 9.1 mg/dL Normal 8.5-10.2 [facility] Comment on above: Order Comment: Speci men Type: BLOOD SPECIMENOrdering Facility: [facility] Address: [address] [place] [address] Performed By: #### 2 4321-2, ####[facility]ORATORYCLIA [id number] [place] [address] [place] Chloride [Moles/Vol] 103 mmol/L Normal 98-107 [facility] Comment on above: Order Comment: Speci men Type: BLOOD SPECIMENOrdering Facility: [facility] Address: [address] [place] [address] Performed By: #### 2 4320-07, ####[facility] LABORATORYCLIA [id number] [place] [id number] [facility] CO2 [Moles/Vol] 25 mmol/L Normal 22-30 [facility] Comment on above: Order Comment: Speci men Type: BLOOD SPECIMENOrdering Facility: [facility] Address: [address] [place] [address] Performed By: #### 2 4320-07, ####[facility]ORATORYCLIA [id number] [address] Creatinine [Mass/Vol] 0.62 mg/dL Normal 0.58-0.96 [facility] Comment on above: Order Comment: Speci men Type: BLOOD SPECIMENOrdering Facility: [facility] Address: [address] [place] [address] Performed By: #### 2 4320-07, ####[facility]ORATORYCLIA [id number] [address] Creatinine and Glomerular filtration rate.predicted panel (S/P/Bld) 93 mL/min/1.73m??? Normal >=60 [facility] Comment on above: Order Comment: Speci men Type: BLOOD SPECIMENOrdering Facility: [facility] Address: [address] [place] [address] Result Comment: Myranda mated Glomerular Filtration Rate (eGFR) is calculated using the 2020 CKD-EPI creatinine equation. This equation utilizes serum creatinine, sex, and age as parameters. The creatinine assay has traceable calibration to isotope dilution-mass spectrometry. Refer to KDIGO guidelines for clinical interpretation. In patients with unstable renal function, e.g. those with acute kidney injury, the eGFR may not accurately reflect actual GFR. Performed By: #### 2 43206-22, ####[facility]ORATORYCLIA [id number] [place] [address] [place] Glucose [Mass/Vol] 99 mg/dL Normal 74-99 [facility] Comment on above: Order Comment: Speci men Type: BLOOD SPECIMENOrdering Facility: [facility] Address: [address] [place] [address] Result Comment: The [place] Diabetes Association (ADA) provides guidance for cutoff values for fasting glucose and random glucose. The ADA defines fasting as no caloric intake for at least 8 hours. Fasting plasma glucose results between 100 to 125 mg/dL indicate increased risk for diabetes (prediabetes). Fasting plasma glucose results greater than or equal to 126 mg/dL meet the criteria for diagnosis of diabetes. In the absence of unequivocal hyperglycemia, results should be confirmed by repeat testing. In a patient with classic symptoms of hyperglycemia or hyperglycemic crisis, random plasma glucose results greater than or equal to 200 mg/dL meet the criteria for diagnosis of diabetes. Reference: Standards of Medical Care in Diabetes 2016, [place] [employer]. Diabetes Care. 2016.39(Suppl 1). Performed By: #### 2 4320-07, ####[facility] LABORATORYCLIA [id number] [place] [address] [place] Potassium [Moles/Vol] 4.1 mmol/L Normal 3.7-5.1 [facility] Comment on above: Order Comment: Speci men Type: BLOOD SPECIMENOrdering Facility: [facility] Address: [address] [place] [address] Performed By: #### 2 4320-07, ####[facility] LABORATORYCLIA [id number] [place] [id number] [place] Sodium [Moles/Vol] 139 mmol/L Normal 136-144 [facility] Comment on above: Order Comment: Speci men Type: BLOOD SPECIMENOrdering Facility: [facility] Address: [address] [place] [address] Performed By: #### 2 4320-07, 80565-4 ####[facility] LABORATORYCLIA [id number] [place] [id number] [place] Urea nitrogen [Mass/Vol] 22 mg/dL High 7-21 [facility] Comment on above: Order Comment: Speci men Type: BLOOD SPECIMENOrdering Facility: [facility] Address: [address] [place] [address] Performed By: #### 2 4321-2, ####[facility] LABORATORYCLIA [id number] [place] [id number] [place] CBC panel Auto (Bld)on 10-13 Erythrocyte distribution width (RBC) [Ratio] 21.4 % High 11.5-15.0 [facility] Comment on above: Order Comment: Speci men Type: BLOOD SPECIMENOrdering Facility: [facility] Address: [address] [place] [address] Performed By: #### 5 8410-2 ####[facility] LABORATORYCLIA [id number] [address] [place] Hematocrit (Bld) [Volume fraction] 23.7 % Low 36.0-46.0 [facility] Comment on above: Order Comment: Speci men Type: BLOOD SPECIMENOrdering Facility: [facility] Address: [address] [place] [address] Performed By: #### 5 8410-2 ####[facility] LABORATORYCLIA [id number] [address] [place] Hemoglobin (Bld) [Mass/Vol] 7.2 g/dL Low 11.5-15.5 [facility] Comment on above: Order Comment: Speci men Type: BLOOD SPECIMENOrdering Facility: [facility] Address: [address] [place] [address] Performed By: #### 5 8410-2 ####[facility] LABORATORYCLIA [id number] [address] [place] MCH (RBC) [Entitic mass] 25.7 pg Low 26.0-34.0 [facility] Comment on above: Order Comment: Speci men Type: BLOOD SPECIMENOrdering Facility: [facility] Address: [address] [place] [address] Performed By: #### 5 8410-2 ####[facility] LABORATORYCLIA [id number] [address] STATES OF [facility] MCHC (RBC) [Mass/Vol] 30.4 g/dL Low 30.5-36.0 [facility] Comment on above: Order Comment: Speci men Type: BLOOD SPECIMENOrdering Facility: [facility] Address: [address] [place] [address] Performed By: #### 5 8410-2 ####[facility] LABORATORYCLIA [id number] [address] [place] MCV (RBC) [Entitic vol] 84.6 fL Normal 80.0-100.0 [facility] Comment on above: Order Comment: Speci men Type: BLOOD SPECIMENOrdering Facility: [facility] Address: [address] [place] [address] Performed By: #### 5 8410-2 ####[facility] LABORATORYCLIA [id number] [address] STATES [facility] Nucleated RBC (Bld) [#/Vol] 10*3/uL Normal <0.01 [facility] Comment on above: Order Comment: Speci men Type: BLOOD SPECIMENOrdering Facility: [facility] Address: [address] [place] [address] Performed By: #### 5 8410-2 ####[facility] LABORATORYCLIA [id number] [address] [place] Platelet mean volume (Bld) [Entitic vol] 10.1 fL Normal 9.0-12.7 [facility] Comment on above: Order Comment: Speci men Type: BLOOD SPECIMENOrdering Facility: [facility] Address: [address] [place] [address] Performed By: #### 5 8410-2 ####[facility] LABORATORYCLIA [id number] [address] [place] Platelets (Bld) [#/Vol] 172 10*3/uL Normal 150-400 [facility] Comment on above: Order Comment: Speci men Type: BLOOD SPECIMENOrdering Facility: [facility] Address: [address] [place] [address] Performed By: #### 5 8410-2 ####[facility] LABORATORYCLIA [id number] [place] [address] [place] RBC (Bld) [#/Vol] 2.80 10*6/uL Low 3.90-5.20 [facility] Comment on above: Order Comment: Speci men Type: BLOOD SPECIMENOrdering Facility: [facility] Address: [address] [place] [address] Performed By: #### 5 8410-2 ####[facility] LABORATORYCLIA [id number] [address] WBC (Bld) [#/Vol] 6.17 10*3/uL Normal 3.70-11.00 [facility] Comment on above: Order Comment: Speci men Type: BLOOD SPECIMENOrdering Facility: [facility] Address: [address] [place] [address] Performed By: #### 5 8410-2 ####[facility] LABORATORYCLIA [id number] [address] [place] Magnesium SerPl-mCncon 10-13 Magnesium [Mass/Vol] 1.6 mg/dL Low 1.7-2.3 [facility] Comment on above: Order Comment: Speci men Type: BLOOD SPECIMENOrdering Facility: [facility] Address: [address] [place] [address] Performed By: #### 2 4321-2, 83814-5 ####[facility] LABORATORYCLIA [id number] [address] [place] NURSING PROGon 10-13-2024 NURSING PROG HNO ID: [id number] Author: MARIAN MARKS, RN Service: Nursing Author Type: Registered Nurse Type: Nursing Progress Note Filed: 10/13/2024 13:31 Note Text: Patient tolerated Full Liquid diet. She was supposed to receive Gastro Intestinal diet. Dr. Cote here to visit patient and her . No complaints of abdominal pain or nausea at this time. Written by Marian Marks RN [facility] NUTRITIONon 10-13-2024 NUTRITION HNO ID: [id number] Author: AISHWARYA DAILEY RD Service: Nutrition Therapy Author Type: Registered Dietitian Type: Nutrition Filed: 10/13/2024 11:29 Note Text: NUTRITION THERAPY PROGRESS NOTE SERVICE DATE: 10/13/2024 SERVICE TIME: Start Time: 1014 Nutrition Assessment: Recommended Malnutrition Diagnosis: Severe Protein-Calorie Malnutrition (10/06/24 1046 : Snehal Duarte RD) Care Plan: Follow for diet advancement to goal Supplements: Ensure Clear (continue), [employer] [place] 1.0 (upon diet advancement to FLD) Monitor and Evaluation: Meet greater than 75% of estimated needs, Monitor bowel function, Monitor labs, I/Os, vital signs, weight Interval History: LOS day 7. Having soft BMs now, endorses gas. Tolerating clear liquids. Intake History: Current Nutrition Intake: Less than 50% estimated energy needs Current Intake Over time: Greater than or equal to 7 days Dosing Weight: 51.3 kg (113 lb 1.5 oz) Dosing Weight Type: Current weight Estimated kilocalorie needs: 9548-4416 Calorie Calculation Method: (35-40 kcal/kg) Estimated protein needs (grams): 67-87 Grams protein determined by: 1.3 - 1.7 g/kg Diet Orders (From admission, onward) Start Ordered 10/12/24 1545 DIET LIQUID START NOW Question: Liquid Diet Answer: CLEAR LIQUID 10/12/24 1533 10/10/24 1400 DIET SUPPLEMENTS START NOW Question Answer Comment Supplement 1 ENSURE CLEAR APPLE Supplement 1 Frequency BREAKFAST Supplement 1 Frequency DINNER Supplement 2 ENSURE CLEAR MIXED PHELPS Supplement 2 Frequency LUNCH 10/10/24 1358 Anthropometrics: Height: 162.6 cm (5' 4.02) Weight: 51.3 kg (113 lb) Body mass index is 19.39 kg/m?. Lines, Drains, and Airways None MNT Billing: $ Reassessment: 1 unit Time Spent (mins): 9 SIGNATURE: Aishwarya Dailey RD PATIENT NAME: Savana Patel DATE: October 13, 2024 TIME: 10:14 AM Normal [facility] Basic metabolic 2000 panelon 10-12-2024 Anion gap [Moles/Vol] 13 mmol/L Normal 8-15 [facility] Comment on above: Order Comment: Speci men Type: BLOOD SPECIMENOrdering Facility: [facility] Address: [address] [place] [address] Performed By: #### 1 9123-9, 74318-0 ####[facility] LABORATORYCLIA [id number] [place] [address] [place] Calcium [Mass/Vol] 9.1 mg/dL Normal 8.5-10.2 [facility] Comment on above: Order Comment: Speci men Type: BLOOD SPECIMENOrdering Facility: [facility] Address: [address] [place] [address] Performed By: #### 1 9123-9, 47641-7 ####[facility] LABORATORYCLIA [id number] [place] [address] [place] Chloride [Moles/Vol] 102 mmol/L Normal 98-107 [facility] Comment on above: Order Comment: Speci men Type: BLOOD SPECIMENOrdering Facility: [facility] Address: [address] [place] [address] Performed By: #### 1 9123-9, 32133-1 ####[facility] LABORATORYCLIA [id number] [place] [address] [place] CO2 [Moles/Vol] 24 mmol/L Normal 22-30 [facility] Comment on above: Order Comment: Speci men Type: BLOOD SPECIMENOrdering Facility: [facility] Address: [address] [place] [address] Performed By: #### 1 9123-9, 08715-7 ####[facility] LABORATORYCLIA [id number] [place] [address] [place] Creatinine [Mass/Vol] 0.64 mg/dL Normal 0.58-0.96 [facility] Comment on above: Order Comment: Pete tilley Type: BLOOD SPECIMENOrdering Facility: [facility] Address: [address] [place] [address] Performed By: #### 1 9123-9, 58635-5 ####[facility] LABORATORYCLIA [id number] [address] [place] Creatinine and Glomerular filtration rate.predicted panel (S/P/Bld) 92 mL/min/1.73m??? Normal >=60 [facility] Comment on above: Order Comment: Pete tilley Type: BLOOD SPECIMENOrdering Facility: [facility] Address: [address] [place] [address] Result Comment: Myranda mated Glomerular Filtration Rate (eGFR) is calculated using the 2020 CKD-EPI creatinine equation. This equation utilizes serum creatinine, sex, and age as parameters. The creatinine assay has traceable calibration to isotope dilution-mass spectrometry. Refer to KDIGO guidelines for clinical interpretation. In patients with unstable renal function, e.g. those with acute kidney injury, the eGFR may not accurately reflect actual GFR. Performed By: #### 1 9123-9, 66172-6 ####[facility] LABORATORYCLIA [id number] [place] [address] [place] Glucose [Mass/Vol] 117 mg/dL High 74-99 [facility] Comment on above: Order Comment: Pete tilley Type: BLOOD SPECIMENOrdering Facility: [facility] Address: [address] [place] [address] Result Comment: The [place] Diabetes [employer] (ADA) provides guidance for cutoff values for fasting glucose and random glucose. The ADA defines fasting as no caloric intake for at least 8 hours. Fasting plasma glucose results between 100 to 125 mg/dL indicate increased risk for diabetes (prediabetes). Fasting plasma glucose results greater than or equal to 126 mg/dL meet the criteria for diagnosis of diabetes. In the absence of unequivocal hyperglycemia, results should be confirmed by repeat testing. In a patient with classic symptoms of hyperglycemia or hyperglycemic crisis, random plasma glucose results greater than or equal to 200 mg/dL meet the criteria for diagnosis of diabetes. Reference: Standards of Medical Care in Diabetes 2016, [place] [employer]. Diabetes Care. 2016.39(Suppl 1). Performed By: #### 1 9123-9, 31016-8 ####[facility] LABORATORYCLIA [id number] [address] STATES OF [facility] Potassium [Moles/Vol] 4.0 mmol/L Normal 3.7-5.1 [facility] Comment on above: Order Comment: Speci men Type: BLOOD SPECIMENOrdering Facility: [facility] Address: [address] [place] [address] Performed By: #### 1 9123-9, 30607-4 ####[facility]ORATORYCLIA [id number] [address] STATES OF [facility] Sodium [Moles/Vol] 139 mmol/L Normal 136-144 [facility] Comment on above: Order Comment: Speci men Type: BLOOD SPECIMENOrdering Facility: [facility] Address: [address] [place] [address] Performed By: #### 1 9123-9, 31307-6 ####[facility] LABORATORYCLIA [id number] [address] STATES [facility] Urea nitrogen [Mass/Vol] 22 mg/dL High 7-21 [facility] Comment on above: Order Comment: Speci men Type: BLOOD SPECIMENOrdering Facility: [facility] Address: [address] [place] [address] Performed By: #### 1 9123-9, 00413-9 ####[facility] LABORATORYCLIA [id number] [address] [place] CBC panel Auto (Bld)on 10-12 Erythrocyte distribution width (RBC) [Ratio] 22.0 % High 11.5-15.0 [facility] Comment on above: Order Comment: Speci men Type: BLOOD SPECIMENOrdering Facility: [facility] Address: [address] [place] [address] Performed By: #### 5 8410-2 ####[facility] LABORATORYCLIA [id number] [place] [address] Hematocrit (Bld) [Volume fraction] 24.8 % Low 36.0-46.0 [facility] Comment on above: Order Comment: Speci men Type: BLOOD SPECIMENOrdering Facility: [facility] Address: [address] [place] [address] Performed By: #### 5 8410-2 ####[facility] LABORATORYCLIA [id number] [address] STATES OF [facility] Hemoglobin (Bld) [Mass/Vol] 7.7 g/dL Low 11.5-15.5 [facility] Comment on above: Order Comment: Speci men Type: BLOOD SPECIMENOrdering Facility: [facility] Address: [address] [place] [address] Performed By: #### 5 8410-2 ####[facility] LABORATORYCLIA [id number] [address] STATES [place] [facility] MCH (RBC) [Entitic mass] 25.8 pg Low 26.0-34.0 [facility] Comment on above: Order Comment: Speci men Type: BLOOD SPECIMENOrdering Facility: [facility] Address: [address] [place] [address] Performed By: #### 5 8410-2 ####[facility] LABORATORYCLIA [id number] [address] [place] MCHC (RBC) [Mass/Vol] 31.0 g/dL Normal 30.5-36.0 [facility] Comment on above: Order Comment: Speci men Type: BLOOD SPECIMENOrdering Facility: [facility] Address: [address] [place] [address] Performed By: #### 5 8410-2 ####[facility] LABORATORYCLIA [id number] [address] MCV (RBC) [Entitic vol] 83.2 fL Normal 80.0-100.0 [facility] Comment on above: Order Comment: Speci men Type: BLOOD SPECIMENOrdering Facility: [facility] Address: [address] [place] [address] Performed By: #### 5 8410-2 ####[facility] LABORATORYCLIA [id number] [place] [address] [place] Nucleated RBC (Bld) [#/Vol] 10*3/uL Normal <0.01 [facility] Comment on above: Order Comment: Speci men Type: BLOOD SPECIMENOrdering Facility: [facility] Address: [address] [place] [address] Performed By: #### 5 8410-2 ####[facility]ORATORYCLIA [id number] [address] [place] Platelet mean volume (Bld) [Entitic vol] 10.7 fL Normal 9.0-12.7 [facility] Comment on above: Order Comment: Speci men Type: BLOOD SPECIMENOrdering Facility: [facility] Address: [address] [place] [address] Performed By: #### 5 8410-2 ####[facility]ORATORYCLIA [id number] [address] [place] Platelets (Bld) [#/Vol] 159 10*3/uL Normal 150-400 [facility] Comment on above: Order Comment: Speci men Type: BLOOD SPECIMENOrdering Facility: [facility] Address: [address] [place] [address] Performed By: #### 5 8410-2 ####[facility]ORATORYCLIA [id number] [address] [place] RBC (Bld) [#/Vol] 2.98 10*6/uL Low 3.90-5.20 [facility] Comment on above: Order Comment: Speci men Type: BLOOD SPECIMENOrdering Facility: [facility] Address: [address] [place] [address] Performed By: #### 5 8410-2 ####[facility]ORATORYCLIA [id number] [place] [address] [place] WBC (Bld) [#/Vol] 6.32 10*3/uL Normal 3.70-11.00 [facility] Comment on above: Order Comment: Speci men Type: BLOOD SPECIMENOrdering Facility: [facility] Address: [address] [place] [address] Performed By: #### 5 8410-2 ####[facility]ORATORYCLIA [id number] [address] [place] Magnesium SerPl-mCncon 10-12 Magnesium [Mass/Vol] 1.8 mg/dL Normal 1.7-2.3 [facility] Comment on above: Order Comment: Speci men Type: BLOOD SPECIMENOrdering Facility: [facility] Address: [address] [place] [address] Performed By: #### 1 9123-9, 65251-7 ####[facility] LABORATORYCLIA [id number] [address] [place] XR ABDOMEN 1V SUPINEon 10-12 XR ABDOMEN 1V SUPINE * * *Final Report* * * DATE OF EXAM: Oct 12 2024 2:28PM [id number] [id number] - XR ABDOMEN 1V SUPINE / PROCEDURE REASON: Bowel obstruction suspected * * * * Physician Interpretation * * * * XR ABDOMEN 1V SUPINE10/12/2024 2:28 PM CLINICAL HISTORY: Bowel obstruction suspected COMPARISON: Small bowel series 10/10/2024 TECHNIQUE: XR ABDOMEN 1V SUPINE RESULT: Contrast seen within the colon and rectum, progressed from prior exam. Multiple gas-filled loops of bowel present. Degenerative change. IMPRESSION: Contrast in the colon and rectum. Multiple gas loops in the pelvis without definitive dilation. Security Ambassador: PSCB Transcribe Date/Time: Oct 12 2024 3:23P Dictated by : JOSE BARNHART MD This examination was interpreted and the report reviewed and electronically signed by: JOSE BARNHART MD on Oct 12 2024 3:27PM EST [id number] Normal [facility] Basic metabolic 2000 panelon 10-11-2024 Anion gap [Moles/Vol] 19 mmol/L High 8-15 [facility] Comment on above: Order Comment: Speci men Type: BLOOD SPECIMENOrdering Facility: [facility] Address: [address] [place] [address] Performed By: #### 1 91239, 12457-9 ####[facility] LABORATORYCLIA [id number] [place] [address] [place] Calcium [Mass/Vol] 9.4 mg/dL Normal 8.5-10.2 [facility] Comment on above: Order Comment: Speci men Type: BLOOD SPECIMENOrdering Facility: [facility] Address: [address] [place] [address] Performed By: #### 1 91239, ####[facility] LABORATORYCLIA [id number] [place] [address] [place] Chloride [Moles/Vol] 94 mmol/L Low 98-107 [facility] Comment on above: Order Comment: Speci men Type: BLOOD SPECIMENOrdering Facility: [facility] Address: [address] [place] [address] Performed By: #### 1 9123-02, ####[facility]ORATORYCLIA [id number] [address] [place] CO2 [Moles/Vol] 25 mmol/L Normal 22-30 [facility] Comment on above: Order Comment: Speci men Type: BLOOD SPECIMENOrdering Facility: [facility] Address: [address] [place] [address] Performed By: #### 1 239, ####[facility] LABORATORYCLIA [id number] [address] [place] Creatinine [Mass/Vol] 0.69 mg/dL Normal 0.58-0.96 [facility] Comment on above: Order Comment: Speci men Type: BLOOD SPECIMENOrdering Facility: [facility] Address: [address] [place] [address] Performed By: #### 1 91239, 86429-3 ####[facility] LABORATORYCLIA [id number] [address] [place] Creatinine and Glomerular filtration rate.predicted panel (S/P/Bld) 91 mL/min/1.73m??? Normal >=60 [facility] Comment on above: Order Comment: Pete tilley Type: BLOOD SPECIMENOrdering Facility: [facility] Address: [address] [place] [address] Result Comment: Myranda mated Glomerular Filtration Rate (eGFR) is calculated using the 2020 CKD-EPI creatinine equation. This equation utilizes serum creatinine, sex, and age as parameters. The creatinine assay has traceable calibration to isotope dilution-mass spectrometry. Refer to KDIGO guidelines for clinical interpretation. In patients with unstable renal function, e.g. those with acute kidney injury, the eGFR may not accurately reflect actual GFR. Performed By: #### 1 9123-9, 42848-9 ####[facility]ORATORYCLIA [id number] [place] [address] [place] Glucose [Mass/Vol] 122 mg/dL High 74-99 [facility] Comment on above: Order Comment: Pete tilley Type: BLOOD SPECIMENOrdering Facility: [facility] Address: [address] [place] [address] Result Comment: The [place] [employer] (ADA) provides guidance for cutoff values for fasting glucose and random glucose. The ADA defines fasting as no caloric intake for at least 8 hours. Fasting plasma glucose results between 100 to 125 mg/dL indicate increased risk for diabetes (prediabetes). Fasting plasma glucose results greater than or equal to 126 mg/dL meet the criteria for diagnosis of diabetes. In the absence of unequivocal hyperglycemia, results should be confirmed by repeat testing. In a patient with classic symptoms of hyperglycemia or hyperglycemic crisis, random plasma glucose results greater than or equal to 200 mg/dL meet the criteria for diagnosis of diabetes. Reference: Standards of Medical Care in Diabetes 2016, [place] [employer]. Diabetes Care. 2016.39(Suppl 1). Performed By: #### 1 9123-9, 66252-7 ####[facility] LABORATORYCLIA [id number] [place] [address] [place] Potassium [Moles/Vol] 3.7 mmol/L Normal 3.7-5.1 [facility] Comment on above: Order Comment: Pete tilley Type: BLOOD SPECIMENOrdering Facility: [facility] Address: [address] [place] [address] Performed By: #### 1 9123-9, 92777-4 ####[facility] LABORATORYCLIA [id number] [address] Sodium [Moles/Vol] 138 mmol/L Normal 136-144 [facility] Comment on above: Order Comment: Speci men Type: BLOOD SPECIMENOrdering Facility: [facility] Address: [address] [place] [address] Performed By: #### 1 9123-9, 00745-2 ####[facility] LABORATORYCLIA [id number] [address] Urea nitrogen [Mass/Vol] 21 mg/dL Normal 7-21 [facility] Comment on above: Order Comment: Speci men Type: BLOOD SPECIMENOrdering Facility: [facility] Address: [address] [place] [address] Performed By: #### 1 9123-9, ####[facility] LABORATORYCLIA [id number] [address] CBC panel Auto (Bld)on 10-11 Erythrocyte distribution width (RBC) [Ratio] 22.4 % High 11.5-15.0 [facility] Comment on above: Order Comment: Speci men Type: BLOOD SPECIMENOrdering Facility: [facility] Address: [address] [place] [address] Performed By: #### 5 8410-2 ####[facility] LABORATORYCLIA [id number] [address] Hematocrit (Bld) [Volume fraction] 27.3 % Low 36.0-46.0 [facility] Comment on above: Order Comment: Speci men Type: BLOOD SPECIMENOrdering Facility: [facility] Address: [address] [place] [address] Performed By: #### 5 8410-2 ####[facility] LABORATORYCLIA [id number] [address] Hemoglobin (Bld) [Mass/Vol] 8.5 g/dL Low 11.5-15.5 [facility] Comment on above: Order Comment: Speci men Type: BLOOD SPECIMENOrdering Facility: [facility] Address: [address] [place] [address] Performed By: #### 5 8410-2 ####[facility] LABORATORYCLIA [id number] [address] MCH (RBC) [Entitic mass] 26.2 pg Normal 26.0-34.0 [facility] Comment on above: Order Comment: Speci men Type: BLOOD SPECIMENOrdering Facility: [facility] Address: [address] [place] [address] Performed By: #### 5 8410-2 ####[facility] LABORATORYCLIA [id number] [address] MCHC (RBC) [Mass/Vol] 31.1 g/dL Normal 30.5-36.0 [facility] Comment on above: Order Comment: Speci men Type: BLOOD SPECIMENOrdering Facility: [facility] Address: [address] [place] [address] Performed By: #### 5 8410-2 ####[facility] LABORATORYCLIA [id number] [address] MCV (RBC) [Entitic vol] 84.3 fL Normal 80.0-100.0 [facility] Comment on above: Order Comment: Speci men Type: BLOOD SPECIMENOrdering Facility: [facility] Address: [address] [place] [address] Performed By: #### 5 8410-2 ####[facility] LABORATORYCLIA [id number] [address] Nucleated RBC (Bld) [#/Vol] 10*3/uL Normal <0.01 [facility] Comment on above: Order Comment: Speci men Type: BLOOD SPECIMENOrdering Facility: [facility] Address: [address] [place] [address] Performed By: #### 5 8410-2 ####[facility] LABORATORYCLIA [id number] [address] [place] [facility] Platelet mean volume (Bld) [Entitic vol] 10.1 fL Normal 9.0-12.7 [facility] Comment on above: Order Comment: Speci men Type: BLOOD SPECIMENOrdering Facility: [facility] Address: [address] [place] [address] Performed By: #### 5 8410-2 ####[facility] LABORATORYCLIA [id number] [address] [place] Platelets (Bld) [#/Vol] 190 10*3/uL Normal 150-400 [facility] Comment on above: Order Comment: Speci men Type: BLOOD SPECIMENOrdering Facility: [facility] Address: [address] [place] [address] Performed By: #### 5 8410-2 ####[facility] LABORATORYCLIA [id number] [address] [place] RBC (Bld) [#/Vol] 3.24 10*6/uL Low 3.90-5.20 [facility] Comment on above: Order Comment: Speci men Type: BLOOD SPECIMENOrdering Facility: [facility] Address: [address] [place] [address] Performed By: #### 5 8410-2 ####[facility] LABORATORYCLIA [id number] [address] [place] WBC (Bld) [#/Vol] 7.47 10*3/uL Normal 3.70-11.00 [facility] Comment on above: Order Comment: Speci men Type: BLOOD SPECIMENOrdering Facility: [facility] Address: [address] [place] [address] Performed By: #### 5 8410-2 ####[facility] LABORATORYCLIA [id number] [address] [place] Magnesium [facility] Magnesium [Mass/Vol] 1.8 mg/dL Normal 1.7-2.3 [facility] Comment on above: Order Comment: Pete tilley Type: BLOOD SPECIMENOrdering Facility: [facility] Address: [address] [place] [id number] Performed By: #### 1 9123-9, 32485-0 ####[facility] LABORATORYCLIA [id number] [place] [address] [place] NURSING PROGon 10-11-2024 NURSING PROG HNO ID: [id number] Author: MARIAN FUENTES, SHEILA Service: Nursing Author Type: Registered Nurse Type: Nursing Progress Note Filed: 10/11/2024 19:35 Note Text: -- Summary: transfer to 5400 -- Pt came to 5400 from 5200 at 1915 pt safe and oriented to her room. Normal [facility] Basic metabolic 2000 panelon 10-10-2024 Anion gap [Moles/Vol] 13 mmol/L Normal 8-15 [facility] Comment on above: Order Comment: Pete tilley Type: BLOOD SPECIMENOrdering Facility: [facility] Address: [address] [place] [id number] Performed By: #### 2 4321-2, 48655-1 ####[facility] LABORATORYCLIA [id number] [place] [id number] [place] Calcium [Mass/Vol] 8.6 mg/dL Normal 8.5-10.2 [facility] Comment on above: Order Comment: Speci men Type: BLOOD SPECIMENOrdering Facility: [facility] Address: [address] [place] [address] Performed By: #### 2 4321-2, ####[facility] LABORATORYCLIA [id number] [place] [address] [place] Chloride [Moles/Vol] 99 mmol/L Normal 98-107 [facility] Comment on above: Order Comment: Speci men Type: BLOOD SPECIMENOrdering Facility: [facility] Address: [address] [place] [address] Performed By: #### 2 4321-2, ####[facility] LABORATORYCLIA [id number] [place] [address] [place] CO2 [Moles/Vol] 24 mmol/L Normal 22-30 [facility] Comment on above: Order Comment: Speci men Type: BLOOD SPECIMENOrdering Facility: [facility] Address: [address] [place] [address] Performed By: #### 2 4322, ####[facility] LABORATORYCLIA [id number] [address] STATES OF [facility] Creatinine [Mass/Vol] 0.69 mg/dL Normal 0.58-0.96 [facility] Comment on above: Order Comment: Speci men Type: BLOOD SPECIMENOrdering Facility: [facility] Address: [address] [place] [address] Performed By: #### 2 2, ####[facility] LABORATORYCLIA [id number] [address] Creatinine and Glomerular filtration rate.predicted panel (S/P/Bld) 91 mL/min/1.73m??? Normal >=60 [facility] Comment on above: Order Comment: Speci men Type: BLOOD SPECIMENOrdering Facility: [facility] Address: [address] [place] [address] Result Comment: Myranda mated Glomerular Filtration Rate (eGFR) is calculated using the 2021 CKD-EPI creatinine equation. This equation utilizes serum creatinine, sex, and age as parameters. The creatinine assay has traceable calibration to isotope dilution-mass spectrometry. Refer to KDIGO guidelines for clinical interpretation. In patients with unstable renal function, e.g. those with acute kidney injury, the eGFR may not accurately reflect actual GFR. Performed By: #### 2 43206-22, ####[facility] LABORATORYCLIA [id number] [place] [address] [place] Glucose [Mass/Vol] 73 mg/dL Low 74-99 [facility] Comment on above: Order Comment: Pete tilley Type: BLOOD SPECIMENOrdering Facility: [facility] Address: [address] [place] [address] Result Comment: The [place] [employer] (ADA) provides guidance for cutoff values for fasting glucose and random glucose. The ADA defines fasting as no caloric intake for at least 8 hours. Fasting plasma glucose results between 100 to 125 mg/dL indicate increased risk for diabetes (prediabetes). Fasting plasma glucose results greater than or equal to 126 mg/dL meet the criteria for diagnosis of diabetes. In the absence of unequivocal hyperglycemia, results should be confirmed by repeat testing. In a patient with classic symptoms of hyperglycemia or hyperglycemic crisis, random plasma glucose results greater than or equal to 200 mg/dL meet the criteria for diagnosis of diabetes. Reference: Standards of Medical Care in Diabetes 2016, [place] [employer]. Diabetes Care. 2016.39(Suppl 1). Performed By: #### 2 4320-07, ####[facility] LABORATORYCLIA [id number] [place] [id number] [place] [place] Potassium [Moles/Vol] 3.8 mmol/L Normal 3.7-5.1 [facility] Comment on above: Order Comment: Pete tilley Type: BLOOD SPECIMENOrdering Facility: [facility] Address: [address] [place] [address] Performed By: #### 2 4320-07, ####[facility] LABORATORYCLIA [id number] [place] [address] [place] Sodium [Moles/Vol] 136 mmol/L Normal 136-144 [facility] Comment on above: Order Comment: Speci men Type: BLOOD SPECIMENOrdering Facility: [facility] Address: [address] [place] [address] Performed By: #### 2 4321-2, ####[facility] LABORATORYCLIA [id number] [address] STATES OF [facility] Urea nitrogen [Mass/Vol] 21 mg/dL Normal 7-21 [facility] Comment on above: Order Comment: Speci men Type: BLOOD SPECIMENOrdering Facility: [facility] Address: [address] [place] [address] Performed By: #### 2 4321-2, ####[facility] LABORATORYCLIA [id number] [address] CBC panel Auto (Bld)on 10-10 Erythrocyte distribution width (RBC) [Ratio] 22.2 % High 11.5-15.0 [facility] Comment on above: Order Comment: Speci men Type: BLOOD SPECIMENOrdering Facility: [facility] Address: [address] [place] [address] Performed By: #### 5 8410-2 ####[facility] LABORATORYCLIA [id number] [address] [place] [facility] Hematocrit (Bld) [Volume fraction] 24.9 % Low 36.0-46.0 [facility] Comment on above: Order Comment: Speci men Type: BLOOD SPECIMENOrdering Facility: [facility] Address: [address] [place] [address] Performed By: #### 5 8410-2 ####[facility] LABORATORYCLIA [id number] [address] [place] [facility] Hemoglobin (Bld) [Mass/Vol] 7.5 g/dL Low 11.5-15.5 [facility] Comment on above: Order Comment: Speci men Type: BLOOD SPECIMENOrdering Facility: [facility] Address: [address] [place] [address] Performed By: #### 5 8410-2 ####[facility] LABORATORYCLIA [id number] [address] MCH (RBC) [Entitic mass] 25.7 pg Low 26.0-34.0 [facility] Comment on above: Order Comment: Speci men Type: BLOOD SPECIMENOrdering Facility: [facility] Address: [address] [place] [address] Performed By: #### 5 8410-2 ####[facility] LABORATORYCLIA [id number] [address] MCHC (RBC) [Mass/Vol] 30.1 g/dL Low 30.5-36.0 [facility] Comment on above: Order Comment: Speci men Type: BLOOD SPECIMENOrdering Facility: [facility] Address: [address] [place] [address] Performed By: #### 5 8410-2 ####[facility] LABORATORYCLIA [id number] [address] MCV (RBC) [Entitic vol] 85.3 fL Normal 80.0-100.0 [facility] Comment on above: Order Comment: Speci men Type: BLOOD SPECIMENOrdering Facility: [facility] Address: [address] [place] [address] Performed By: #### 5 8410-2 ####[facility] LABORATORYCLIA [id number] [address] Nucleated RBC (Bld) [#/Vol] 10*3/uL Normal <0.01 [facility] Comment on above: Order Comment: Speci men Type: BLOOD SPECIMENOrdering Facility: [facility] Address: [address] [place] [address] Performed By: #### 5 8410-2 ####[facility] LABORATORYCLIA [id number] [address] Platelet mean volume (Bld) [Entitic vol] 9.7 fL Normal 9.0-12.7 [facility] Comment on above: Order Comment: Speci men Type: BLOOD SPECIMENOrdering Facility: [facility] Address: [address] [place] [address] Performed By: #### 5 8410-2 ####[facility] LABORATORYCLIA [id number] [address] [place] [facility] Platelets (Bld) [#/Vol] 141 10*3/uL Low 150-400 [facility] Comment on above: Order Comment: Speci men Type: BLOOD SPECIMENOrdering Facility: [facility] Address: [address] [place] [address] Performed By: #### 5 8410-2 ####[facility] LABORATORYCLIA [id number] [place] [address] [place] RBC (Bld) [#/Vol] 2.92 10*6/uL Low 3.90-5.20 [facility] Comment on above: Order Comment: Speci men Type: BLOOD SPECIMENOrdering Facility: [facility] Address: [address] [place] [address] Performed By: #### 5 8410-2 ####[facility] LABORATORYCLIA [id number] [address] [place] WBC (Bld) [#/Vol] 5.64 10*3/uL Normal 3.70-11.00 [facility] Comment on above: Order Comment: Speci men Type: BLOOD SPECIMENOrdering Facility: [facility] Address: [address] [place] [address] Performed By: #### 5 8410-2 ####[facility] LABORATORYCLIA [id number] [address] [place] Magnesium SerPl-mCncon 10-10 Magnesium [Mass/Vol] 1.7 mg/dL Normal 1.7-2.3 [facility] Comment on above: Order Comment: Speci men Type: BLOOD SPECIMENOrdering Facility: [facility] Address: [address] [place] [address] Performed By: #### 2 4321-2, 01911-6 ####[facility] LABORATORYCLIA [id number] [address] [place] NUTRITIONon 10-10-2024 NUTRITION HNO ID: [id number] Author: SNEHAL DUARTE RD Service: Nutrition Therapy Author Type: Registered Dietitian Type: Nutrition Filed: 10/10/2024 13:56 Note Text: NUTRITION THERAPY PROGRESS NOTE SERVICE DATE: 10/10/2024 SERVICE TIME: Start Time: 1032 Nutrition Assessment: Recommended Malnutrition Diagnosis: Severe Protein-Calorie Malnutrition (10/06/24 1046 : Snehal Duarte RD) Care Plan: Follow for diet advancement to goal (started on clear liquids for lunch today) Supplements: Ensure Clear (TID, when diet advances wants [employer] [place] or vanilla) Medications: Anti-emetics, Appetite stimulants, Laxative Orders written and provider collaborated with: fang cote MD (regarding prolonged NPO status and possible need for PN if unable to advance diet) Monitor and Evaluation: Meet greater than 75% of estimated needs, Monitor fluid/electrolyte balance, Monitor bowel function, Monitor labs, I/Os, vital signs, weight Interval History: patient LOS day 4, 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 She is still not passing gas or having bowel movements. Has only had 1 meal of clear liquid on 10/09, otherwise has been NPO. On LR at 75 ml/hr. Possible small bowel follow through today. GI Symptoms: Vomiting, Nausea, Anorexia Stool Amount: Decreased (no BM or gas x 5 days) Intake History: Current Nutrition Intake: 0-25% estimated energy needs (NPO x 5 days, had 1 meals of clear liquid on 10/08. she had a few sips of proth and a frozen ice and threw up after.) Dosing Weight: 51.3 kg (113 lb 1.5 oz) Dosing Weight Type: Current weight Estimated kilocalorie needs: 5222-5217 Calorie Calculation Method: (35-40 kcal/kg) Estimated protein needs (grams): 67-87 Grams protein determined by: 1.3 - 1.7 g/kg Diet Orders (From admission, onward) Start Ordered 10/09/24 0700 DIET NPO START NOW 10/09/24 0654 Anthropometrics: Height: 162.6 cm (5' 4.02) Weight: 51.3 kg (113 lb) Body mass index is 19.39 kg/m?. MNT Billing: $ Routine Care : 1 unit Time Spent (mins): 3 SIGNATURE: Snehal Duarte RD PATIENT NAME: Savana Patel DATE: October 10, 2024 TIME: 1032AM Normal [facility] XR SMALL BOWEL SERIESon 09-20 XR SMALL BOWEL SERIES * * *Final Report* * * DATE OF EXAM: Oct 10 2024 6:48PM [id number] - XR SMALL BOWEL SERIES / PROCEDURE REASON: Ileus vs Obstruction * * * * Physician Interpretation * * * * SMALL BOWEL SERIES HISTORY: Vomiting TECHNIQUE: Small bowel series was performed with sequential overhead films after approximately 300 mL Omnipaque 300 COMPARISON: 10/08/2024 RESULT: Tunnel Heading Inspector image shows dilated small bowel loops up to 4.8 cm. Surgical clips within the right pelvis. Osseous degenerative changes. Transit time to the colon was approximately 90 minutes. By 4 hours, contrast is seen within the rectum. There are dilated small bowel loops up to 4.6 cm. There is some clumping of small bowel loops within the lower abdomen/pelvis. IMPRESSION: Contrast reaches the colon by 90 minutes and is present within the rectum by 4 hours. Dilated small bowel loops, consider partial obstruction Security Ambassador: SUMMER Transcribe Date/Time: Oct 11 2024 8:14A Dictated by : LEV NEGRON MD This examination was interpreted and the report reviewed and electronically signed by: LEV NEGRON MD on Oct 11 2024 8:18AM EST [id number] Normal [facility] Basic metabolic 2000 panelon 10-09-2024 Anion gap [Moles/Vol] 14 mmol/L Normal 8-15 [facility] Comment on above: Order Comment: Speci men Type: BLOOD SPECIMENOrdering Facility: [facility] Address: [address] [place] [address] Performed By: #### 2 4321-2, 65340-8 ####[facility] LABORATORYCLIA [id number] [place] [address] [place] Calcium [Mass/Vol] 9.6 mg/dL Normal 8.5-10.2 [facility] Comment on above: Order Comment: Speci men Type: BLOOD SPECIMENOrdering Facility: [facility] Address: [address] [place] [address] Performed By: #### 2 4321-2, ####[facility] LABORATORYCLIA [id number] [place] [address] [place] Chloride [Moles/Vol] 95 mmol/L Low 98-107 [facility] Comment on above: Order Comment: Speci men Type: BLOOD SPECIMENOrdering Facility: [facility] Address: [address] [place] [address] Performed By: #### 2 4321-2, ####[facility] LABORATORYCLIA [id number] [address] [place] CO2 [Moles/Vol] 26 mmol/L Normal 22-30 [facility] Comment on above: Order Comment: Speci men Type: BLOOD SPECIMENOrdering Facility: [facility] Address: [address] [place] [address] Performed By: #### 2 432-2, ####[facility] LABORATORYCLIA [id number] [address] [place] Creatinine [Mass/Vol] 0.70 mg/dL Normal 0.58-0.96 [facility] Comment on above: Order Comment: Speci men Type: BLOOD SPECIMENOrdering Facility: [facility] Address: [address] [place] [address] Performed By: #### 2 4321-2, ####[facility] LABORATORYCLIA [id number] [address] Creatinine and Glomerular filtration rate.predicted panel (S/P/Bld) 90 mL/min/1.73m??? Normal >=60 [facility] Comment on above: Order Comment: Speci men Type: BLOOD SPECIMENOrdering Facility: [facility] Address: [address] [place] [address] Result Comment: Myranda mated Glomerular Filtration Rate (eGFR) is calculated using the 2020 CKD-EPI creatinine equation. This equation utilizes serum creatinine, sex, and age as parameters. The creatinine assay has traceable calibration to isotope dilution-mass spectrometry. Refer to KDIGO guidelines for clinical interpretation. In patients with unstable renal function, e.g. those with acute kidney injury, the eGFR may not accurately reflect actual GFR. Performed By: #### 2 432-, ####[facility] LABORATORYCLIA [id number] [place] [address] [place] Glucose [Mass/Vol] 104 mg/dL High 74-99 [facility] Comment on above: Order Comment: Pete tilley Type: BLOOD SPECIMENOrdering Facility: [facility] Address: [address] [place] [address] Result Comment: The [place] [employer] (ADA) provides guidance for cutoff values for fasting glucose and random glucose. The ADA defines fasting as no caloric intake for at least 8 hours. Fasting plasma glucose results between 100 to 125 mg/dL indicate increased risk for diabetes (prediabetes). Fasting plasma glucose results greater than or equal to 126 mg/dL meet the criteria for diagnosis of diabetes. In the absence of unequivocal hyperglycemia, results should be confirmed by repeat testing. In a patient with classic symptoms of hyperglycemia or hyperglycemic crisis, random plasma glucose results greater than or equal to 200 mg/dL meet the criteria for diagnosis of diabetes. Reference: Standards of Medical Care in Diabetes 2016, [place] [employer]. Diabetes Care. 2016.39(Suppl 1). Performed By: #### 2 4320-07, ####[facility] LABORATORYIA [id number] [place] [address] [place] Potassium [Moles/Vol] 4.0 mmol/L Normal 3.7-5.1 [facility] Comment on above: Order Comment: Pete tilley Type: BLOOD SPECIMENOrdering Facility: [facility] Address: [address] [place] [id number] Performed By: #### 2 432-, ####[facility] LABORATORYCLIA [id number] [place] [address] [place] Sodium [Moles/Vol] 135 mmol/L Low 136-144 [facility] Comment on above: Order Comment: Speci men Type: BLOOD SPECIMENOrdering Facility: [facility] Address: [address] [place] [address] Performed By: #### 2 4321-2, 11629-2 ####[facility] LABORATORYCLIA [id number] [place] [address] [place] Urea nitrogen [Mass/Vol] 21 mg/dL Normal 01-08 [facility] Comment on above: Order Comment: Speci men Type: BLOOD SPECIMENOrdering Facility: [facility] Address: [address] [place] [address] Performed By: #### 2 4321-2, ####[facility] LABORATORYCLIA [id number] [address] [place] CBC panel Auto (Bld)on 10-09 Erythrocyte distribution width (RBC) [Ratio] 22.2 % High 11.5-15.0 [facility] Comment on above: Order Comment: Speci men Type: BLOOD SPECIMENOrdering Facility: [facility] Address: [address] [place] [address] Performed By: #### 5 8410-2 ####[facility] LABORATORYCLIA [id number] [address] [place] Hematocrit (Bld) [Volume fraction] 28.7 % Low 36.0-46.0 [facility] Comment on above: Order Comment: Speci men Type: BLOOD SPECIMENOrdering Facility: [facility] Address: [address] [place] [address] Performed By: #### 5 8410-2 ####[facility] LABORATORYCLIA [id number] [address] [place] Hemoglobin (Bld) [Mass/Vol] 8.9 g/dL Low 11.5-15.5 [facility] Comment on above: Order Comment: Speci men Type: BLOOD SPECIMENOrdering Facility: [facility] Address: [address] [place] [address] Performed By: #### 5 8410-2 ####[facility] LABORATORYCLIA [id number] [address] MCH (RBC) [Entitic mass] 25.9 pg Low 26.0-34.0 [facility] Comment on above: Order Comment: Speci men Type: BLOOD SPECIMENOrdering Facility: [facility] Address: [address] [place] [address] Performed By: #### 5 8410-2 ####[facility] LABORATORYCLIA [id number] [address] MCHC (RBC) [Mass/Vol] 31.0 g/dL Normal 30.5-36.0 [facility] Comment on above: Order Comment: Speci men Type: BLOOD SPECIMENOrdering Facility: [facility] Address: [address] [place] [address] Performed By: #### 5 8410-2 ####[facility] LABORATORYCLIA [id number] [address] MCV (RBC) [Entitic vol] 83.4 fL Normal 80.0-100.0 [facility] Comment on above: Order Comment: Speci men Type: BLOOD SPECIMENOrdering Facility: [facility] Address: [address] [place] [address] Performed By: #### 5 8410-2 ####[facility] LABORATORYCLIA [id number] [address] Nucleated RBC (Bld) [#/Vol] 10*3/uL Normal <0.01 [facility] Comment on above: Order Comment: Speci men Type: BLOOD SPECIMENOrdering Facility: [facility] Address: [address] [place] [address] Performed By: #### 5 8410-2 ####[facility] LABORATORYCLIA [id number] [address] [place] Platelet mean volume (Bld) [Entitic vol] 10.5 fL Normal 9.0-12.7 [facility] Comment on above: Order Comment: Speci men Type: BLOOD SPECIMENOrdering Facility: [facility] Address: [address] [place] [address] Performed By: #### 5 8410-2 ####[facility] LABORATORYCLIA [id number] [address] [place] Platelets (Bld) [#/Vol] 220 10*3/uL Normal 150-400 [facility] Comment on above: Order Comment: Speci men Type: BLOOD SPECIMENOrdering Facility: [facility] Address: [address] [place] [address] Performed By: #### 5 8410-2 ####[facility] LABORATORYCLIA [id number] [place] [address] [place] RBC (Bld) [#/Vol] 3.44 10*6/uL Low 3.90-5.20 [facility] Comment on above: Order Comment: Speci men Type: BLOOD SPECIMENOrdering Facility: [facility] Address: [address] [place] [address] Performed By: #### 5 8410-2 ####[facility] LABORATORYCLIA [id number] [address] [place] WBC (Bld) [#/Vol] 5.64 10*3/uL Normal 3.70-11.00 [facility] Comment on above: Order Comment: Speci men Type: BLOOD SPECIMENOrdering Facility: [facility] Address: [address] [place] [address] Performed By: #### 5 8410-2 ####[facility] LABORATORYCLIA [id number] [address] [place] Magnesium SerPl-mCncon 10-09 Magnesium [Mass/Vol] 1.7 mg/dL Normal 1.7-2.3 [facility] Comment on above: Order Comment: Speci men Type: BLOOD SPECIMENOrdering Facility: [facility] Address: [address] [place] [address] Performed By: #### 2 4320-2, ####[facility] LABORATORYCLIA [id number] [place] [address] [place] Basic metabolic 2000 panelon 10-08-2024 Anion gap [Moles/Vol] 15 mmol/L Normal 8-15 [facility] Comment on above: Order Comment: Speci men Type: BLOOD SPECIMENOrdering Facility: [facility] Address: [address] [place] [address] Performed By: #### 2 4320-2, ####[facility] LABORATORYCLIA [id number] [place] [address] [place] Calcium [Mass/Vol] 9.4 mg/dL Normal 8.5-10.2 [facility] Comment on above: Order Comment: Speci men Type: BLOOD SPECIMENOrdering Facility: [facility] Address: [address] [place] [address] Performed By: #### 2 4320-07, ####[facility] LABORATORYCLIA [id number] [place] [address] [place] Chloride [Moles/Vol] 95 mmol/L Low 98-107 [facility] Comment on above: Order Comment: Speci men Type: BLOOD SPECIMENOrdering Facility: [facility] Address: [address] [place] [address] Performed By: #### 2 2, ####[facility] LABORATORYCLIA [id number] [place] [address] [place] CO2 [Moles/Vol] 23 mmol/L Normal 22-30 [facility] Comment on above: Order Comment: Speci men Type: BLOOD SPECIMENOrdering Facility: [facility] Address: [address] [place] [address] Performed By: #### 2 2, ####[facility] LABORATORYCLIA [id number] [place] [address] [place] Creatinine [Mass/Vol] 0.76 mg/dL Normal 0.58-0.96 [facility] Comment on above: Order Comment: Pete tilley Type: BLOOD SPECIMENOrdering Facility: [facility] Address: [address] [place] [address] Performed By: #### 2 4321-2, ####[facility] FOR[facility] WAYNECLIA [id number] [place] [id number] [place] Creatinine and Glomerular filtration rate.predicted panel (S/P/Bld) 82 mL/min/1.73m??? Normal >=60 [facility] Comment on above: Order Comment: Pete tilley Type: BLOOD SPECIMENOrdering Facility: [facility] Address: [address] [place] [address] Result Comment: Myranda mated Glomerular Filtration Rate (eGFR) is calculated using the 2020 CKD-EPI creatinine equation. This equation utilizes serum creatinine, sex, and age as parameters. The creatinine assay has traceable calibration to isotope dilution-mass spectrometry. Refer to KDIGO guidelines for clinical interpretation. In patients with unstable renal function, e.g. those with acute kidney injury, the eGFR may not accurately reflect actual GFR. Performed By: #### 2 4321-2, 95286-7 ####[facility] LABORATORYIA [id number] [place] [address] [place] Glucose [Mass/Vol] 78 mg/dL Normal 74-99 [facility] Comment on above: Order Comment: Pete tilley Type: BLOOD SPECIMENOrdering Facility: [facility] Address: [address] [place] [address] Result Comment: The [place] [employer] (ADA) provides guidance for cutoff values for fasting glucose and random glucose. The ADA defines fasting as no caloric intake for at least 8 hours. Fasting plasma glucose results between 100 to 125 mg/dL indicate increased risk for diabetes (prediabetes). Fasting plasma glucose results greater than or equal to 126 mg/dL meet the criteria for diagnosis of diabetes. In the absence of unequivocal hyperglycemia, results should be confirmed by repeat testing. In a patient with classic symptoms of hyperglycemia or hyperglycemic crisis, random plasma glucose results greater than or equal to 200 mg/dL meet the criteria for diagnosis of diabetes. Reference: Standards of Medical Care in Diabetes 2016, [place] [employer]. Diabetes Care. 2016.39(Suppl 1). Performed By: #### 2 4321-2, ####[facility] LABORATORYCLIA [id number] [address] STATES OF [facility] Potassium [Moles/Vol] 4.0 mmol/L Normal 3.7-5.1 [facility] Comment on above: Order Comment: Speci men Type: BLOOD SPECIMENOrdering Facility: [facility] Address: [address] [place] [address] Performed By: #### 2 432-2, ####[facility] LABORATORYCLIA [id number] [address] STATES OF [facility] Sodium [Moles/Vol] 133 mmol/L Low 136-144 [facility] Comment on above: Order Comment: Speci men Type: BLOOD SPECIMENOrdering Facility: [facility] Address: [address] [place] [address] Performed By: #### 2 2, ####[facility] LABORATORYCLIA [id number] [address] STATES [facility] Urea nitrogen [Mass/Vol] 17 mg/dL Normal 7-21 [facility] Comment on above: Order Comment: Speci men Type: BLOOD SPECIMENOrdering Facility: [facility] Address: [address] [place] [address] Performed By: #### 2 4320-2, ####[facility] LABORATORYCLIA [id number] [address] CBC panel Auto (Bld)on 10-08 Erythrocyte distribution width (RBC) [Ratio] 22.4 % High 11.5-15.0 [facility] Comment on above: Order Comment: Speci men Type: BLOOD SPECIMENOrdering Facility: [facility] Address: [address] [place] [address] Performed By: #### 5 8410-2 ####[facility] LABORATORYCLIA [id number] [address] [address] Hematocrit (Bld) [Volume fraction] 26.7 % Low 36.0-46.0 [facility] Comment on above: Order Comment: Speci men Type: BLOOD SPECIMENOrdering Facility: [facility] Address: [address] [place] [address] Performed By: #### 5 8410-2 ####[facility] LABORATORYCLIA [id number] [address] STATES OF [facility] Hemoglobin (Bld) [Mass/Vol] 8.4 g/dL Low 11.5-15.5 [facility] Comment on above: Order Comment: Speci men Type: BLOOD SPECIMENOrdering Facility: [facility] Address: [address] [place] [address] Performed By: #### 5 8410-2 ####[facility] LABORATORYCLIA [id number] [address] STATES OF [facility] MCH (RBC) [Entitic mass] 26.4 pg Normal 26.0-34.0 [facility] Comment on above: Order Comment: Speci men Type: BLOOD SPECIMENOrdering Facility: [facility] Address: [address] [place] [address] Performed By: #### 5 8410-2 ####[facility] LABORATORYCLIA [id number] [address] OF [facility] MCHC (RBC) [Mass/Vol] 31.5 g/dL Normal 30.5-36.0 [facility] Comment on above: Order Comment: Speci men Type: BLOOD SPECIMENOrdering Facility: [facility] Address: [address] [place] [address] Performed By: #### 5 8410-2 ####[facility] LABORATORYCLIA [id number] [address] STATES [facility] MCV (RBC) [Entitic vol] 84.0 fL Normal 80.0-100.0 [facility] Comment on above: Order Comment: Speci men Type: BLOOD SPECIMENOrdering Facility: [facility] Address: [address] [place] [address] Performed By: #### 5 8410-2 ####[facility] LABORATORYCLIA [id number] [place] [address] [place] Nucleated RBC (Bld) [#/Vol] 10*3/uL Normal <0.01 [facility] Comment on above: Order Comment: Speci men Type: BLOOD SPECIMENOrdering Facility: [facility] Address: [address] [place] [address] Performed By: #### 5 8410-2 ####[facility] LABORATORYCLIA [id number] [address] [place] Platelet mean volume (Bld) [Entitic vol] 9.8 fL Normal 9.0-12.7 [facility] Comment on above: Order Comment: Speci men Type: BLOOD SPECIMENOrdering Facility: [facility] Address: [address] [place] [address] Performed By: #### 5 8410-2 ####[facility] LABORATORYCLIA [id number] [address] [place] Platelets (Bld) [#/Vol] 166 10*3/uL Normal 150-400 [facility] Comment on above: Order Comment: Speci men Type: BLOOD SPECIMENOrdering Facility: [facility] Address: [address] [place] [address] Performed By: #### 5 8410-2 ####[facility] LABORATORYCLIA [id number] [place] [address] [place] RBC (Bld) [#/Vol] 3.18 10*6/uL Low 3.90-5.20 [facility] Comment on above: Order Comment: Speci men Type: BLOOD SPECIMENOrdering Facility: [facility] Address: [address] [place] [address] Performed By: #### 5 8410-2 ####[facility] LABORATORYCLIA [id number] [address] [place] WBC (Bld) [#/Vol] 6.09 10*3/uL Normal 3.70-11.00 [facility] Comment on above: Order Comment: Speci men Type: BLOOD SPECIMENOrdering Facility: [facility] Address: [address] [place] [address] Performed By: #### 5 8410-2 ####[facility] LABORATORYCLIA [id number] [place] [address] [place] Magnesium SerPl-mCncon 10-08 Magnesium [Mass/Vol] 1.7 mg/dL Normal 1.7-2.3 [facility] Comment on above: Order Comment: Speci men Type: BLOOD SPECIMENOrdering Facility: [facility] Address: [address] [place] [address] Performed By: #### 2 4321-2, 46769-3 ####[facility] LABORATORYCLIA [id number] [address] [place] XR ABDOMEN 1V SUPINEon 10-08 XR ABDOMEN 1V SUPINE * * *Final Report* * * DATE OF EXAM: Oct 08 2024 11:20AM AKX [id number] - XR ABDOMEN 1V SUPINE / PROCEDURE REASON: Bowel obstruction suspected * * * * Physician Interpretation * * * * EXAM TITLE: XR ABDOMEN 1V SUPINE DATE: 10/08/2024 COMPARISON: 11/08/2018, CT study dated 10/05/2024 CLINICAL INDICATION/HISTORY: Abdominal pain, nausea, history of serous fallopian tube carcinoma TECHNIQUE: KUB FINDINGS: No bowel dilatation. Difficult to evaluate for free air on this supine exam. There are surgical clips and jessica within the pelvis. No obvious masses or unusual calcifications are present. No acute bony abnormality. IMPRESSION:Nonspecific abdomen. Security Ambassador: SUMMER Transcribe Date/Time: Oct 08 2024 11:30A Dictated by : LUBNA MAYER MD This examination was interpreted and the report reviewed and electronically signed by: LUBNA MAYER MD on Oct 08 2024 11:36AM EST [id number] Normal [facility] Basic metabolic 2000 panelon 10-07-2024 Anion gap [Moles/Vol] 14 mmol/L Normal 8-15 [facility] Comment on above: Order Comment: Speci men Type: BLOOD SPECIMENOrdering Facility: [facility] Address: [address] [place] [address] Performed By: #### 2 4320-2, ####[facility]ORATORYCLIA [id number] [place] [address] [place] Calcium [Mass/Vol] 9.6 mg/dL Normal 8.5-10.2 [facility] Comment on above: Order Comment: Speci men Type: BLOOD SPECIMENOrdering Facility: [facility] Address: [address] [place] [address] Performed By: #### 2 2, ####[facility] LABORATORYCLIA [id number] [place] [address] [place] Chloride [Moles/Vol] 96 mmol/L Low 98-107 [facility] Comment on above: Order Comment: Speci men Type: BLOOD SPECIMENOrdering Facility: [facility] Address: [address] [place] [address] Performed By: #### 2 4320-07, ####[facility] LABORATORYCLIA [id number] [place] [address] [place] CO2 [Moles/Vol] 24 mmol/L Normal 22-30 [facility] Comment on above: Order Comment: Speci men Type: BLOOD SPECIMENOrdering Facility: [facility] Address: [address] [place] [address] Performed By: #### 2 2, ####[facility] LABORATORYCLIA [id number] [address] [place] Creatinine [Mass/Vol] 0.76 mg/dL Normal 0.58-0.96 [facility] Comment on above: Order Comment: Speci men Type: BLOOD SPECIMENOrdering Facility: [facility] Address: [address] [place] [address] Performed By: #### 2 2, ####[facility] LABORATORYCLIA [id number] [address] [place] Creatinine and Glomerular filtration rate.predicted panel (S/P/Bld) 82 mL/min/1.73m??? Normal >=60 [facility] Comment on above: Order Comment: Pete tilley Type: BLOOD SPECIMENOrdering Facility: [facility] Address: [address] [place] [address] Result Comment: Myranda mated Glomerular Filtration Rate (eGFR) is calculated using the 2020 CKD-EPI creatinine equation. This equation utilizes serum creatinine, sex, and age as parameters. The creatinine assay has traceable calibration to isotope dilution-mass spectrometry. Refer to KDIGO guidelines for clinical interpretation. In patients with unstable renal function, e.g. those with acute kidney injury, the eGFR may not accurately reflect actual GFR. Performed By: #### 2 4321-2, 29899-5 ####[facility] LABORATORYCLIA [id number] [place] [address] [place] Glucose [Mass/Vol] 84 mg/dL Normal 74-99 [facility] Comment on above: Order Comment: Pete tilley Type: BLOOD SPECIMENOrdering Facility: [facility] Address: [address] [place] [address] Result Comment: The [place] [employer] (ADA) provides guidance for cutoff values for fasting glucose and random glucose. The ADA defines fasting as no caloric intake for at least 8 hours. Fasting plasma glucose results between 100 to 125 mg/dL indicate increased risk for diabetes (prediabetes). Fasting plasma glucose results greater than or equal to 126 mg/dL meet the criteria for diagnosis of diabetes. In the absence of unequivocal hyperglycemia, results should be confirmed by repeat testing. In a patient with classic symptoms of hyperglycemia or hyperglycemic crisis, random plasma glucose results greater than or equal to 200 mg/dL meet the criteria for diagnosis of diabetes. Reference: Standards of Medical Care in Diabetes 2016, [place] [employer]. Diabetes Care. 2016.39(Suppl 1). Performed By: #### 2 4321-2, 43002-1 ####[facility] LABORATORYCLIA [id number] [place] [address] [place] Potassium [Moles/Vol] 3.9 mmol/L Normal 3.7-5.1 [facility] Comment on above: Order Comment: Pete tilley Type: BLOOD SPECIMENOrdering Facility: [facility] Address: [address] [place] [address] Performed By: #### 2 4321-2, ####[facility] LABORATORYCLIA [id number] [address] Sodium [Moles/Vol] 134 mmol/L Low 136-144 [facility] Comment on above: Order Comment: Speci men Type: BLOOD SPECIMENOrdering Facility: [facility] Address: [address] [place] [address] Performed By: #### 2 432-2, ####[facility] LABORATORYCLIA [id number] [address] Urea nitrogen [Mass/Vol] 13 mg/dL Normal 7-21 [facility] Comment on above: Order Comment: Speci men Type: BLOOD SPECIMENOrdering Facility: [facility] Address: [address] [place] [address] Performed By: #### 2 4320-2, ####[facility] LABORATORYCLIA [id number] [address] CBC panel Auto (Bld)on 10-07 Erythrocyte distribution width (RBC) [Ratio] 22.4 % High 11.5-15.0 [facility] Comment on above: Order Comment: Speci men Type: BLOOD SPECIMENOrdering Facility: [facility] Address: [address] [place] [address] Performed By: #### 5 8410-2 ####[facility] LABORATORYCLIA [id number] [address] Hematocrit (Bld) [Volume fraction] 25.7 % Low 36.0-46.0 [facility] Comment on above: Order Comment: Speci men Type: BLOOD SPECIMENOrdering Facility: [facility] Address: [address] [place] [address] Performed By: #### 5 8410-2 ####[facility] LABORATORYCLIA [id number] [address] Hemoglobin (Bld) [Mass/Vol] 8.0 g/dL Low 11.5-15.5 [facility] Comment on above: Order Comment: Speci men Type: BLOOD SPECIMENOrdering Facility: [facility] Address: [address] [place] [address] Performed By: #### 5 8410-2 ####[facility] LABORATORYCLIA [id number] [address] MCH (RBC) [Entitic mass] 25.9 pg Low 26.0-34.0 [facility] Comment on above: Order Comment: Speci men Type: BLOOD SPECIMENOrdering Facility: [facility] Address: [address] [place] [address] Performed By: #### 5 8410-2 ####[facility] LABORATORYCLIA [id number] [address] MCHC (RBC) [Mass/Vol] 31.1 g/dL Normal 30.5-36.0 [facility] Comment on above: Order Comment: Speci men Type: BLOOD SPECIMENOrdering Facility: [facility] Address: [address] [place] [address] Performed By: #### 5 8410-2 ####[facility] LABORATORYCLIA [id number] [address] MCV (RBC) [Entitic vol] 83.2 fL Normal 80.0-100.0 [facility] Comment on above: Order Comment: Speci men Type: BLOOD SPECIMENOrdering Facility: [facility] Address: [address] [place] [address] Performed By: #### 5 8410-2 ####[facility] LABORATORYCLIA [id number] [address] Nucleated RBC (Bld) [#/Vol] 10*3/uL Normal <0.01 [facility] Comment on above: Order Comment: Speci men Type: BLOOD SPECIMENOrdering Facility: [facility] Address: [address] [place] [address] Performed By: #### 5 8410-2 ####[facility] LABORATORYCLIA [id number] [address] [place] Platelet mean volume (Bld) [Entitic vol] 10.2 fL Normal 9.0-12.7 [facility] Comment on above: Order Comment: Speci men Type: BLOOD SPECIMENOrdering Facility: [facility] Address: [address] [place] [address] Performed By: #### 5 8410-2 ####[facility] LABORATORYCLIA [id number] [address] [place] Platelets (Bld) [#/Vol] 160 10*3/uL Normal 150-400 [facility] Comment on above: Order Comment: Speci men Type: BLOOD SPECIMENOrdering Facility: [facility] Address: [address] [place] [address] Performed By: #### 5 8410-2 ####[facility] LABORATORYCLIA [id number] [place] [address] [place] RBC (Bld) [#/Vol] 3.09 10*6/uL Low 3.90-5.20 [facility] Comment on above: Order Comment: Speci men Type: BLOOD SPECIMENOrdering Facility: [facility] Address: [address] [place] [address] Performed By: #### 5 8410-2 ####[facility] LABORATORYCLIA [id number] [place] [address] [place] WBC (Bld) [#/Vol] 4.86 10*3/uL Normal 3.70-11.00 [facility] Comment on above: Order Comment: Speci men Type: BLOOD SPECIMENOrdering Facility: [facility] Address: [address] [place] [address] Performed By: #### 5 8410-2 ####[facility] LABORATORYCLIA [id number] [address] [place] Magnesium [facility] Magnesium [Mass/Vol] 1.7 mg/dL Normal 1.7-2.3 [facility] Comment on above: Order Comment: Speci men Type: BLOOD SPECIMENOrdering Facility: [facility] Address: [address] [place] [address] Performed By: #### 2 432-2, ####[facility] LABORATORYCLIA [id number] [place] [address] [place] ALLIED HEALTHon 10-06-2024 ALLIED HEALTH HNO ID: [id number] Author: OCRINA DORMAN Chaplain Service: Spiritual Care Author Type: Supervisor Telephone Answering Service Type: Allied Health Filed: 10/06/2024 20:46 Note Text: SPIRITUAL CARE PROGRESS NOTE SERVICE DATE: 10/06/2024 SERVICE TIME: 8:00 PM 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 PT was sleeping at the time of arrival. To contact the Spiritual Care Department: Please call [phone]. SIGNATURE: Chaplain Waleska PATIENT NAME: Savana Patel DATE: October 06, 2024 TIME: 8:46 PM PAGER/CONTACT #: [phone] Normal [facility] Basic metabolic 2000 panelon 10-06-2024 Anion gap [Moles/Vol] 13 mmol/L Normal 8-15 [facility] Comment on above: Order Comment: Speci men Type: BLOOD SPECIMENOrdering Facility: [facility] Address: [address] [place] [address] Performed By: #### 2 4320-07, ####[facility] LABORATORYCLIA [id number] [place] [id number] [place] Calcium [Mass/Vol] 9.6 mg/dL Normal 8.5-10.2 [facility] Comment on above: Order Comment: Speci men Type: BLOOD SPECIMENOrdering Facility: [facility] Address: [address] [place], [place] [address] Performed By: #### 2 432-, ####[facility] LABORATORYCLIA [id number] [place] [address] [place] Chloride [Moles/Vol] 98 mmol/L Normal 98-107 [facility] Comment on above: Order Comment: Speci men Type: BLOOD SPECIMENOrdering Facility: [facility] Address: [address] [place] [address] Performed By: #### 2 4322, ####[facility] LABORATORYCLIA [id number] [address] OF [facility] CO2 [Moles/Vol] 24 mmol/L Normal 22-30 [facility] Comment on above: Order Comment: Speci men Type: BLOOD SPECIMENOrdering Facility: [facility] Address: [address] [place] [address] Performed By: #### 2 43206-22, ####[facility] LABORATORYCLIA [id number] [address] Creatinine [Mass/Vol] 0.74 mg/dL Normal 0.58-0.96 [facility] Comment on above: Order Comment: Speci men Type: BLOOD SPECIMENOrdering Facility: [facility] Address: [address] [place] [address] Performed By: #### 2 4320-07, ####[facility] LABORATORYCLIA [id number] [address] Creatinine and Glomerular filtration rate.predicted panel (S/P/Bld) 84 mL/min/1.73m??? Normal >=60 [facility] Comment on above: Order Comment: Speci men Type: BLOOD SPECIMENOrdering Facility: [facility] Address: [address] [place] [address] Result Comment: Myranda mated Glomerular Filtration Rate (eGFR) is calculated using the 2020 CKD-EPI creatinine equation. This equation utilizes serum creatinine, sex, and age as parameters. The creatinine assay has traceable calibration to isotope dilution-mass spectrometry. Refer to KDIGO guidelines for clinical interpretation. In patients with unstable renal function, e.g. those with acute kidney injury, the eGFR may not accurately reflect actual GFR. Performed By: #### 2 4321 ####[facility] LABORATORYCLIA [id number] [place] [address] [place] Glucose [Mass/Vol] 103 mg/dL High 74-99 [facility] Comment on above: Order Comment: Pete tilley Type: BLOOD SPECIMENOrdering Facility: [facility] Address: [address] [place] [address] Result Comment: The [place] Diabetes [employer] (ADA) provides guidance for cutoff values for fasting glucose and random glucose. The ADA defines fasting as no caloric intake for at least 8 hours. Fasting plasma glucose results between 100 to 125 mg/dL indicate increased risk for diabetes (prediabetes). Fasting plasma glucose results greater than or equal to 126 mg/dL meet the criteria for diagnosis of diabetes. In the absence of unequivocal hyperglycemia, results should be confirmed by repeat testing. In a patient with classic symptoms of hyperglycemia or hyperglycemic crisis, random plasma glucose results greater than or equal to 200 mg/dL meet the criteria for diagnosis of diabetes. Reference: Standards of Medical Care in Diabetes 2016, [place] [employer]. Diabetes Care. 2016.39(Suppl 1). Performed By: #### 2 ####[facility] LABORATORYCLIA [id number] [place] [address] [place] Potassium [Moles/Vol] 4.0 mmol/L Normal 3.7-5.1 [facility] Comment on above: Order Comment: Pete tilley Type: BLOOD SPECIMENOrdering Facility: [facility] Address: [address] [place] [address] Performed By: #### 2 ####[facility] LABORATORYCLIA [id number] [place] [id number] [place] Sodium [Moles/Vol] 135 mmol/L Low 136-144 [facility] Comment on above: Order Comment: Pete tilley Type: BLOOD SPECIMENOrdering Facility: [facility] Address: [address] [place], [place] [address] Performed By: #### 2 ####[facility] LABORATORYCLIA [id number] [place] [address] [place] Urea nitrogen [Mass/Vol] 13 mg/dL Normal 7-21 [facility] Comment on above: Order Comment: Speci men Type: BLOOD SPECIMENOrdering Facility: [facility] Address: [address] [place] [address] Performed By: #### 2 4321-2, 83694-4 ####[facility] LABORATORYCLIA [id number] [place] [address] [place] CBC W Auto Differential pane l (Bld)on 10-06-2024 Basophils (Bld) [#/Vol] 10*3/uL Normal <0.11 [facility] Comment on above: Order Comment: Speci men Type: BLOOD SPECIMENOrdering Facility: [facility] Address: [address] [place] [address] Performed By: #### 5 7021-8 ####[facility] LABORATORYCLIA [id number] [address] [place] Basophils/100 WBC (Bld) 0.4 % Normal [facility] Comment on above: Order Comment: Speci men Type: BLOOD SPECIMENOrdering Facility: [facility] Address: [address] [place] [address] Performed By: #### 5 7021-8 ####[facility] LABORATORYCLIA [id number] [address] STATES [facility] Differential cell count method Nom (Bld) Auto Normal [facility] Comment on above: Order Comment: Speci men Type: BLOOD SPECIMENOrdering Facility: [facility] Address: [address] [place] [address] Performed By: #### 5 7021-8 ####[facility] LABORATORYCLIA [id number] [place] [address] [place] Eosinophils (Bld) [#/Vol] 10*3/uL Normal <0.46 [facility] Comment on above: Order Comment: Speci men Type: BLOOD SPECIMENOrdering Facility: [facility] Address: [address] [place] [address] Performed By: #### 5 7021-8 ####[facility]ORATORYCLIA [id number] [address] [place] Eosinophils/100 WBC (Bld) 0.4 % Normal [facility] Comment on above: Order Comment: Speci men Type: BLOOD SPECIMENOrdering Facility: [facility] Address: [address] [place] [address] Performed By: #### 5 7021-8 ####[facility]ORATORYCLIA [id number] [address] [place] Erythrocyte distribution width (RBC) [Ratio] 22.1 % High 11.5-15.0 [facility] Comment on above: Order Comment: Speci men Type: BLOOD SPECIMENOrdering Facility: [facility] Address: [address] [place] [address] Performed By: #### 5 7021-8 ####[facility] LABORATORYCLIA [id number] [address] [place] Hematocrit (Bld) [Volume fraction] 26.9 % Low 36.0-46.0 [facility] Comment on above: Order Comment: Speci men Type: BLOOD SPECIMENOrdering Facility: [facility] Address: [address] [place] [address] Performed By: #### 5 7021-8 ####[facility] LABORATORYCLIA [id number] [address] [place] Hemoglobin (Bld) [Mass/Vol] 8.3 g/dL Low 11.5-15.5 [facility] Comment on above: Order Comment: Speci men Type: BLOOD SPECIMENOrdering Facility: [facility] Address: [address] [place] [address] Performed By: #### 5 7021-8 ####[facility] LABORATORYCLIA [id number] [address] Immature granulocytes (Bld) [#/Vol] 10*3/uL Normal <0.10 [facility] Comment on above: Order Comment: Speci men Type: BLOOD SPECIMENOrdering Facility: [facility] Address: [address] [place] [address] Performed By: #### 5 7021-8 ####[facility] LABORATORYCLIA [id number] [address] Immature granulocytes/100 WBC (Bld) 0.4 % Normal [facility] Comment on above: Order Comment: Speci men Type: BLOOD SPECIMENOrdering Facility: [facility] Address: [address] [place] [address] Performed By: #### 5 7021-8 ####[facility] LABORATORYCLIA [id number] [address] [place] Lymphocytes (Bld) [#/Vol] 0.57 10*3/uL Low 1.00-4.00 [facility] Comment on above: Order Comment: Speci men Type: BLOOD SPECIMENOrdering Facility: [facility] Address: [address] [place] [address] Performed By: #### 5 7021-8 ####[facility] LABORATORYCLIA [id number] [address] Lymphocytes/100 WBC (Bld) 11.4 % Normal [facility] Comment on above: Order Comment: Speci men Type: BLOOD SPECIMENOrdering Facility: [facility] Address: [address] [place] [address] Performed By: #### 5 7021-8 ####[facility] LABORATORYCLIA [id number] [address] [place] MCH (RBC) [Entitic mass] 25.9 pg Low 26.0-34.0 [facility] Comment on above: Order Comment: Speci men Type: BLOOD SPECIMENOrdering Facility: [facility] Address: [address] [place] [address] Performed By: #### 5 7021-8 ####[facility] LABORATORYCLIA [id number] [address] [place] MCHC (RBC) [Mass/Vol] 30.9 g/dL Normal 30.5-36.0 [facility] Comment on above: Order Comment: Speci men Type: BLOOD SPECIMENOrdering Facility: [facility] Address: [address] [place] [address] Performed By: #### 5 7021-8 ####[facility] LABORATORYCLIA [id number] [address] [place] MCV (RBC) [Entitic vol] 84.1 fL Normal 80.0-100.0 [facility] Comment on above: Order Comment: Speci men Type: BLOOD SPECIMENOrdering Facility: [facility] Address: [address] [place] [address] Performed By: #### 5 7021-8 ####[facility] LABORATORYCLIA [id number] [address] [place] Monocytes (Bld) [#/Vol] 0.39 10*3/uL Normal <0.87 [facility] Comment on above: Order Comment: Speci men Type: BLOOD SPECIMENOrdering Facility: [facility] Address: [address] [place] [address] Performed By: #### 5 7021-8 ####[facility] LABORATORYCLIA [id number] [address] Monocytes/100 WBC (Bld) 7.8 % Normal [facility] Comment on above: Order Comment: Speci men Type: BLOOD SPECIMENOrdering Facility: [facility] Address: [address] [place] [address] Performed By: #### 5 7021-8 ####[facility] LABORATORYCLIA [id number] [place] [address] [place] Neutrophils (Bld) [#/Vol] 3.97 10*3/uL Normal 1.45-7.50 [facility] Comment on above: Order Comment: Speci men Type: BLOOD SPECIMENOrdering Facility: [facility] Address: [address] [place] [address] Performed By: #### 5 7021-8 ####[facility] LABORATORYCLIA [id number] [address] [place] Neutrophils/100 WBC (Bld) 79.6 % Normal [facility] Comment on above: Order Comment: Speci men Type: BLOOD SPECIMENOrdering Facility: [facility] Address: [address] [place] [address] Performed By: #### 5 7021-8 ####[facility] LABORATORYCLIA [id number] [address] [place] Nucleated RBC (Bld) [#/Vol] 10*3/uL Normal <0.01 [facility] Comment on above: Order Comment: Speci men Type: BLOOD SPECIMENOrdering Facility: [facility] Address: [address] [place] [address] Performed By: #### 5 7021-8 ####[facility] LABORATORYCLIA [id number] [address] Nucleated RBC/100 WBC (Bld) [Ratio] 0.0 /100 WBC Normal [facility] Comment on above: Order Comment: Speci men Type: BLOOD SPECIMENOrdering Facility: [facility] Address: [address] [place] [address] Performed By: #### 5 7021-8 ####[facility] LABORATORYCLIA [id number] [address] Platelet mean volume (Bld) [Entitic vol] 9.6 fL Normal 9.0-12.7 [facility] Comment on above: Order Comment: Speci men Type: BLOOD SPECIMENOrdering Facility: [facility] Address: [address] [place] [address] Performed By: #### 5 7021-8 ####[facility] LABORATORYCLIA [id number] [address] [place] Platelets (Bld) [#/Vol] 159 10*3/uL Normal 150-400 [facility] Comment on above: Order Comment: Speci men Type: BLOOD SPECIMENOrdering Facility: [facility] Address: [address] [place] [address] Performed By: #### 5 7021-8 ####[facility] LABORATORYCLIA [id number] [address] [place] RBC (Bld) [#/Vol] 3.20 10*6/uL Low 3.90-5.20 [facility] Comment on above: Order Comment: Speci men Type: BLOOD SPECIMENOrdering Facility: [facility] Address: [address] [place] [address] Performed By: #### 5 7021-8 ####[facility] LABORATORYCLIA [id number] [address] STATES OF [facility] WBC (Bld) [#/Vol] 4.99 10*3/uL Normal 3.70-11.00 [facility] Comment on above: Order Comment: Speci men Type: BLOOD SPECIMENOrdering Facility: [facility] Address: [address] [place] [address] Performed By: #### 5 7021-8 ####[facility] LABORATORYCLIA [id number] [address] CBC panel Auto (Bld)on 10-06 Erythrocyte distribution width (RBC) [Ratio] 22.2 % High 11.5-15.0 [facility] Comment on above: Order Comment: Speci men Type: BLOOD SPECIMENOrdering Facility: [facility] Address: [address] [place] [address] Performed By: #### 5 8410-2 ####[facility] LABORATORYCLIA [id number] [address] [place] Hematocrit (Bld) [Volume fraction] 26.3 % Low 36.0-46.0 [facility] Comment on above: Order Comment: Speci men Type: BLOOD SPECIMENOrdering Facility: [facility] Address: [address] [place] [address] Performed By: #### 5 8410-2 ####[facility] LABORATORYCLIA [id number] [address] Hemoglobin (Bld) [Mass/Vol] 8.1 g/dL Low 11.5-15.5 [facility] Comment on above: Order Comment: Speci men Type: BLOOD SPECIMENOrdering Facility: [facility] Address: [address] [place] [address] Performed By: #### 5 8410-2 ####[facility] LABORATORYCLIA [id number] [address] MCH (RBC) [Entitic mass] 26.5 pg Normal 26.0-34.0 [facility] Comment on above: Order Comment: Speci men Type: BLOOD SPECIMENOrdering Facility: [facility] Address: [address] [place] [address] Performed By: #### 5 8410-2 ####[facility] LABORATORYCLIA [id number] [address] MCHC (RBC) [Mass/Vol] 30.8 g/dL Normal 30.5-36.0 [facility] Comment on above: Order Comment: Speci men Type: BLOOD SPECIMENOrdering Facility: [facility] Address: [address] [place] [address] Performed By: #### 5 8410-2 ####[facility] LABORATORYCLIA [id number] [address] MCV (RBC) [Entitic vol] 85.9 fL Normal 80.0-100.0 [facility] Comment on above: Order Comment: Speci men Type: BLOOD SPECIMENOrdering Facility: [facility] Address: [address] [place] [address] Performed By: #### 5 8410-2 ####[facility] LABORATORYCLIA [id number] [address] Nucleated RBC (Bld) [#/Vol] 10*3/uL Normal <0.01 [facility] Comment on above: Order Comment: Speci men Type: BLOOD SPECIMENOrdering Facility: [facility] Address: [address] [place] [address] Performed By: #### 5 8410-2 ####[facility] LABORATORYCLIA [id number] [address] Platelet mean volume (Bld) [Entitic vol] 9.6 fL Normal 9.0-12.7 [facility] Comment on above: Order Comment: Speci men Type: BLOOD SPECIMENOrdering Facility: [facility] Address: [address] [place] [address] Performed By: #### 5 8410-2 ####[facility] LABORATORYCLIA [id number] [address] [place] Platelets (Bld) [#/Vol] 157 10*3/uL Normal 150-400 [facility] Comment on above: Order Comment: Speci men Type: BLOOD SPECIMENOrdering Facility: [facility] Address: [address] [place] [address] Performed By: #### 5 8410-2 ####[facility] LABORATORYCLIA [id number] [address] STATES [facility] RBC (Bld) [#/Vol] 3.06 10*6/uL Low 3.90-5.20 [facility] Comment on above: Order Comment: Speci men Type: BLOOD SPECIMENOrdering Facility: [facility] Address: [address] [place] [address] Performed By: #### 5 8410-2 ####[facility] LABORATORYCLIA [id number] [address] [place] WBC (Bld) [#/Vol] 4.99 10*3/uL Normal 3.70-11.00 [facility] Comment on above: Order Comment: Speci men Type: BLOOD SPECIMENOrdering Facility: [facility] Address: [address] [place] [address] Performed By: #### 5 8410-2 ####[facility] LABORATORYCLIA [id number] [address] HISTORY PHYSICALon HISTORY PHYSICAL HNO ID: [id number] Author: CORINNE NEWTON MD Service: Gynecology Oncology Author Type: Physician Type: H&P Filed: 10/06/2024 10:27 Note Text: GYNECOLOGY ONCOCOLOGY HISTORY AND PHYSICAL SERVICE DATE: 10/06/2024 SERVICE TIME: 1:12 AM Subjective HISTORY OF THE PRESENT ILLNESS Ms. 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 Savana reports new onset epigastric pain that began the morning of 10/05. The pain stayed in the same area and was associated with sudden onset vomiting which continued intermittently throughout the day. She was told by her hematology oncology provider to present to ED as there was concern for possible GB disease. She was found to have a likely small bowel obstruction on CT. Since admission Savana reports she has not had an episode of vomiting since about midnight today. She reports the pain is currently a 3/10 but she is unsure whether it is just pain or if she is just very hungry. She reports an increase in belching during this time as well. The last time she passed gas was the prior evening and had a bowel movement earlier this evening. The last she ate was around 2 pm the afternoon of and had just a piece of toast but was unable to keep that down. She denies urinary symptoms or difficulty with urination. She lives at home with her currently. ONCOLOGIC HISTORY: 10/06/2018: Exploratory laparotomy, total abdominal hysterectomy, bilateral salpingooophorectomy, and bladder and posterior culdesac peritoneum resected en bloc, omentectomy 11/11/2018 - 02/03/2019: PACLITAXEL 80 D1,8,15 CARBOPLATIN 6 D1 - Q21D s/p 4 cycles. *neutropenia/thrombocytope ben causing treatment delay. Neulasta OnPro added; switch to Q21D dosing of Taxol with cycles 5 AND 6 02/23/2019 - 03/17/2019: PACLITAXEL 135 D1 CARBOPLATIN 6 D1 - Q21D s/p 2 cycles. 06/30/2019 - 06/20/2021: olaparib (LYNPARZA) 150 mg tablet; 300 mg BID. 07/20/2022- 3Carboplatin/Taxo l and filgrastim x6 cycles Avastin given with C3 12/17/2022- 05/10/2023: Doxil, x6 cycles (12/17/2022- 05/10/2023) Decreased to 30mg/m2 with C3 due to PPE 07/14/2023 Exploratory laparotomy, tumor debulking of abdominal lesion is less than 5 cm, right ureterolysis. 06/28/2024: Recurrent fallopian tube cancer with current regimen being topotecan and bevacizumab. Completed 6 cycles of therapy. 09/05/2024: Recurrent fall tube cancer. [place] refractory. Currently had begun treatment with Olaparib. She had previously tolerated this well and had a progression free interval of approximately 1 year. She has not had any durable responses with doxil, mirvetuximab, topotecan with bevacizumab and most recently gemcitabine. She is requiring paracentesis, 2 or 3 times a month. HISTORY: PAST MEDICAL HISTORY Diagnosis Date Actinic keratosis 04/12/2007 Advance directive discussed with patient 08/24/2022 Discussed 08/2022: Up to date DEANDRE positive 07/25/2016 Rheum felt just Arthritis. 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 B[place]ON ANGIOMA///NEVUS, NON-NEOPLASTIC 02/18/2007 Constipation 04/04/2015 Dysmetabolic syndrome X 12/28/2007 Essential hypertension 04/04/2015 GERD without esophagitis 07/24/2020 Hemorrhage of gastrointestinal tract, unspecified History of left mastectomy 05/05/2018 Impaired fasting glucose 11/21/2007 Internal hemorrhoids without mention of complication Iron deficiency anemia due to chronic blood loss 09/02/2023 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 Leg cramps 01/08/2020 Living will on file 07/31/2021 DPA: Javier ( ) Malignant neoplasm of both ovaries (HCC) 10/26/2018 Mixed hyperlipidemia 04/04/2015 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 multiple joints 07/27/2016 Osteopenia 12/28/2012 Other acne 05/29/2008 Other seborrheic keratosis 02/18/2007 Panic attacks 07/18/2012 Primary insomnia 01/29/2022 S/P colectomy 08/06/2023 SOLAR LENGINES///DYSCHROMIA OTHER 02/18/2007 Thrombocytopenia 01/29/2022 chronic Trigger ring finger of left hand 07/24/2020 Trigger ring finger of right hand 07/24/2020 PAST SURGICAL HISTORY Procedure Laterality Date BX BREAST PERC VACUUM/ROTN 10/26/2007 LEFT COLONOSCOPY FLX DX W/COLLJ SPEC WHEN PFRMD 07/20/2005 COLONOSCOPY FLX DX W/COLLJ SPEC WHEN PFRMD 05/01/2016 normal - 10 year follow up LAPAROSCOPIC HEMICOLECTOMY Right 06/2023 LIG/TRNSXJ FLP TUBE ABDL/VAG APPR UNI/BI Tubal ligation MAST RAD W/PECTORAL MUSCLES AXILLARY LYMPH NODES 11/2007 Left PAST SURGICAL HISTORY OF BACK SURGERY PAST SURGICAL HISTORY OF (more content not included)... Normal [facility] Magnesium SerPl-mCncon 10-06 Magnesium [Mass/Vol] 1.8 mg/dL Normal 1.7-2.3 [facility] Comment on above: Order Comment: Speci men Type: BLOOD SPECIMENOrdering Facility: [facility] Address: [address] [place] [address] Performed By: #### 2 4321-2, 89678-9 ####[facility] LABORATORYCLIA [id number] [address] STATES OF [facility] NUTRITIONon 10-06-2024 NUTRITION HNO ID: [id number] Author: SNEHAL DUARTE RD Service: Nutrition Therapy Author Type: Registered Dietitian Type: Nutrition Filed: 10/06/2024 14:19 Note Text: INITIAL ASSESSMENT SERVICE DATE: 10/06/2024 SERVICE TIME: Start Time: 1046 Nutrition Assessment: Recommended Malnutrition Diagnosis: Severe Protein-Calorie Malnutrition In the context of: Acute Illness or Injury Based on: Insufficient Energy Intake, Subcutaneous Fat Loss, Muscle Loss Nutrition Diagnosis: Problem: Increased nutrient needs Related to: Catabolic illness As evidenced by: Weight loss, Depletion of fat/muscle stores, Patient/family self-report Care Plan: Follow for diet advancement to goal Supplements: [employer] 1.4 (shelby/vanilla BID once diet advances.) Medications: Anti-emetics Monitor and Evaluation: Meet greater than 75% of estimated needs, Monitor fluid/electrolyte balance, Monitor bowel function, Monitor labs, I/Os, vital signs, weight HPI: patient is a 74 y/o female, LOS <1, with PMH of stage III serous fallopian tube carcinoma, and admitted with small bowel obstruction and hydronephrosis, started on IVF, possible NG if N/V worsen. Currently is NPO Intake History: Nutrition Intake Prior to Admission: Less than 75% estimated energy needs (r/t chemo and GERD) greater than or equal to 1 month Current Nutrition Intake: NPO Current Intake Over time: (1 day) Dosing Weight: 51.3 kg (113 lb 1.5 oz) Dosing Weight Type: Current weight Estimated kilocalorie needs: 1479-6555 Calorie Calculation Method: (35-40 kcal/kg) Estimated protein needs (grams): 67-87 Grams protein determined by: 1.3 - 1.7 g/kg Diet Orders (From admission, onward) Start Ordered 10/06/24214 DIET NPO START NOW Question: NPO Restrictions Answer: EXCEPT MEDS 10/06/24 0204 Anthropometrics: Height: 162.6 cm (5' 4.02) Weight: 51.3 kg (113 lb) Usual Weight: (120-125 lbs) Usual Weight Obtained From: Chart Review Body mass index is 19.39 kg/m?. Weight change percentage over time: 5% x 3 months, 8.8% x 6 months Weight Change: Potentially clinically significant but does not meet criteria to support malnutrition diagnosis Date: Wt: 10/05/2024 51.3 kg (113 lb) 09/20/2024 51.3 kg (113 lb) 09/08/2024 51.5 kg (113 lb 8 oz) 09/08/2024 51.3 kg (113 lb) 08/03/2024 53.8 kg (118 lb 8 oz) 08/01/2024 52.4 kg (115 lb 8 oz) 08/01/2024 52.4 kg (115 lb 8 oz) 07/20/2024 55.1 kg (121 lb 8 oz) 07/07/2024 54 kg (119 lb) 07/04/2024 54.2 kg (119 lb 8 oz) 07/04/2024 54.2 kg (119 lb 8 oz) 06/28/2024 55.8 kg (123 lb) 06/28/2024 56.2 kg (123 lb 14.4 oz) 06/23/2024 57.2 kg (126 lb) 05/03/2024 56.7 kg (125 lb) 04/26/2024 55.8 kg (123 lb) 04/20/2024 56.2 kg (124 lb) 04/13/2024 56.2 kg (124 lb) 03/29/2024 56.2 kg (124 lb) 03/29/2024 56.2 kg (124 lb) 03/16/2024 57.4 kg (126 lb 8 oz) 03/09/2024 57.4 kg (126 lb 8 oz) 12/06/2023 55.1 kg (121 lb 8 oz) 12/06/2023 55.1 kg (121 lb 8 oz) 11/17/2023 56.5 kg (124 lb 8 oz) 11/12/2023 54.9 kg (121 lb) 11/12/2023 54.9 kg (121 lb) 10/20/2023 54.9 kg (121 lb) 09/29/2023 55.1 kg (121 lb 8 oz)] Physical Exam: Subcutaneous fat loss: Subcutaneous Fat Loss Assessed Orbital: Sightly dark circles, somewhat hollow look (Mild) Upper Arm (Triceps): Some depth to pinch, not ample fat (Mod) Muscle loss: Muscle Loss Assessed Clavicle: More prominent bone, less prominent muscle (Mod) Acromion: Acromion process slightly protrudes (Mod) Interosseous (Hand): Slight depression of muscle (Mild) Edema/Ascites: Lower extremities Lower Extremity: Non-pitting GI Symptoms: Anorexia, Nausea Functional Status: Regressed Potential Signs of Inflammation: Chronic condition, Hyperglycemia cancer, HTN, HLD MNT Billing: $ Routine Care : 1 unit Time Spent (mins): 6 SIGNATURE: Snehal Duarte RD PATIENT NAME: aSvana Patel DATE: October 06, 2024 TIME: 1046 AM Normal [facility] ALLIED HEALTHon 10-05-2024 ALLIED HEALTH HNO ID: [id number] Author: IMAN JOHN Tech Service: Radiology Author Type: Automation Sales Manager Type: Allied Health Filed: 10/05/2024 19:26 Note Text: Radiology Service Progress Note DATE OF SERVICE: October 05, 2024 TIME: 7:26 PM PATIENT IDENTITY VERIFICATION COMPLETED USING TWO (2) STANDARD IDENTIFIERS: Name and Date of confirmed by patient verbally and Name and Date of confirmed by identification band. FALL SCREENING: Has the patient had 2 falls in the last year or 1 fall with injury or currently using an Ambulatory Assistive Device (Walker, Cane, Wheelchair, Crutches, etc.)? Emergency Room Patient: Screened in ED PATIENT GENDER DATA: Assigned female at . status: : No status: NO. PATIENT RELEVANT IMPLANT DATA REVIEWED: Not Applicable PATIENT PRESENTS WITH AN IMPLANTABLE OR ATTACHED FRETTED STRING INSTRUMENT REPAIRER: No ALLERGIES: Reviewed and unchanged CONTRAST ALLERGY: NO. EXAM: CT -CONTRAST INDUCED NEPHROPATHY RISK FACTORS: Patient age > 60 years CREATININE: Creatinine Date Value Ref Range Status 10/05/2024 0.79 0.58 - 0.96 mg/dL Final 09/29/2024 0.84 0.58 - 0.96 mg/dL Final 09/22/2024 0.91 0.58 - 0.96 mg/dL Final Estimated Glomerular Filtration Rate Date Value Ref Range Status 10/05/2024 78 >=60 mL/min/1.73m? Final Comment: Estimated Glomerular Filtration Rate (eGFR) is calculated using the 2020 CKD-EPI creatinine equation. This equation utilizes serum creatinine, sex, and age as parameters. The creatinine assay has traceable calibration to isotope dilution-mass spectrometry. Refer to KDIGO guidelines for clinical interpretation. In patients with unstable renal function, e.g. those with acute kidney injury, the eGFR may not accurately reflect actual GFR. eGFR- Date Value Ref Range Status 07/07/2021 Test reordered by [facility]. Corrected Comment: SEE LOLIS [id number] Account Credited 07/07/2021 >60 Final P.O.C.T. RESULTS: POC done: Yes, See Lab Tab October 05, 2024 TREATMENT: N/A PERIPHERAL IV DATA: Inpatient - refer to LDA documentation RADIOLOGY DEPARTMENT: CT; Exam(s) Completed: Abdomen/Pelvis SIGNATURE: Pradip Kidd PATIENT NAME: Savana Patel DATE: October 05, 2024 TIME: 7:26 PM Normal [facility] CBC panel Auto (Bld)on 10-05 Erythrocyte distribution width (RBC) [Ratio] 22.8 % High 11.5-15.0 [facility] Comment on above: Order Comment: Speci men Type: BLOOD SPECIMENOrdering Facility: [facility] Address: [address] [place] [address] Performed By: #### 5 8410-2 ####[facility] LABORATORYCLIA [id number] [address] Hematocrit (Bld) [Volume fraction] 40.4 % Normal 36.0-46.0 [facility] Comment on above: Order Comment: Speci men Type: BLOOD SPECIMENOrdering Facility: [facility] Address: [address] [place] [address] Performed By: #### 5 8410-2 ####[facility] LABORATORYCLIA [id number] [address] Hemoglobin (Bld) [Mass/Vol] 12.6 g/dL Normal 11.5-15.5 [facility] Comment on above: Order Comment: Speci men Type: BLOOD SPECIMENOrdering Facility: [facility] Address: [address] [place] [address] Performed By: #### 5 8410-2 ####[facility] LABORATORYCLIA [id number] [address] STATES OF [facility] MCH (RBC) [Entitic mass] 25.7 pg Low 26.0-34.0 [facility] Comment on above: Order Comment: Speci men Type: BLOOD SPECIMENOrdering Facility: [facility] Address: [address] [place] [address] Performed By: #### 5 8410-2 ####[facility] LABORATORYCLIA [id number] [address] MCHC (RBC) [Mass/Vol] 31.2 g/dL Normal 30.5-36.0 [facility] Comment on above: Order Comment: Speci men Type: BLOOD SPECIMENOrdering Facility: [facility] Address: [address] [place] [address] Performed By: #### 5 8410-2 ####[facility] LABORATORYCLIA [id number] [address] MCV (RBC) [Entitic vol] 82.4 fL Normal 80.0-100.0 [facility] Comment on above: Order Comment: Speci men Type: BLOOD SPECIMENOrdering Facility: [facility] Address: [address] [place] [address] Performed By: #### 5 8410-2 ####[facility] LABORATORYCLIA [id number] [address] Nucleated RBC (Bld) [#/Vol] 10*3/uL Normal <0.01 [facility] Comment on above: Order Comment: Speci men Type: BLOOD SPECIMENOrdering Facility: [facility] Address: [address] [place] [address] Performed By: #### 5 8410-2 ####[facility] LABORATORYCLIA [id number] [address] Platelet mean volume (Bld) [Entitic vol] 10.5 fL Normal 9.0-12.7 [facility] Comment on above: Order Comment: Speci men Type: BLOOD SPECIMENOrdering Facility: [facility] Address: [address] [place] [address] Performed By: #### 5 8410-2 ####[facility] LABORATORYCLIA [id number] [address] Platelets (Bld) [#/Vol] 123 10*3/uL Low 150-400 [facility] Comment on above: Order Comment: Speci men Type: BLOOD SPECIMENOrdering Facility: [facility] Address: [address] [place] [address] Performed By: #### 5 8410-2 ####[facility] LABORATORYCLIA [id number] [address] [place] RBC (Bld) [#/Vol] 4.90 10*6/uL Normal 3.90-5.20 [facility] Comment on above: Order Comment: Speci men Type: BLOOD SPECIMENOrdering Facility: [facility] Address: [address] [place] [address] Performed By: #### 5 8410-2 ####[facility] LABORATORYCLIA [id number] [place] [address] [place] WBC (Bld) [#/Vol] 3.11 10*3/uL Low 3.70-11.00 [facility] Comment on above: Order Comment: Speci men Type: BLOOD SPECIMENOrdering Facility: [facility] Address: [address] [place] [address] Performed By: #### 5 8410-2 ####[facility] LABORATORYCLIA [id number] [place] [address] [place] CT ABD/PEL W IVCONon 025 CT ABD/PEL W IVCON * * *Final Report* * * DATE OF EXAM: Oct 05 2024 7:30PM [facility] 0530 - CT ABD/PEL W IVCON / PROCEDURE REASON: Abdominal pain, acute, nonlocalized * * * * Physician Interpretation * * * * EXAMINATION: CT ABDOMEN AND PELVIS WITH IV CONTRAST CLINICAL HISTORY: Abdominal pain nausea vomiting TECHNIQUE: CT of the abdomen and pelvis was performed using standard technique, scanning from just above the dome of the diaphragm to the symphysis pubis. MQ: CTAP_3 Contrast: IV: 100 ml of Omnipaque 350 : ml of CT Radiation dose: Integrated Dose-length product (DLP) for this visit = 256 mGy*cm. CT Dose Reduction Employed: Automated exposure control(AEC) and iterative recon COMPARISON: CT abdomen pelvis 08/30/2024 RESULT: Liver: No mass. Biliary: No bile duct dilation. Gallbladder is unremarkable. Spleen: No mass. No splenomegaly. Pancreas: No mass or duct dilation. Adrenals: No mass. Kidneys: Bilateral hydronephrosis. Renal cysts. GI tract: The bowel loops are clumped in the pelvis. There are multiple dilated small bowel loops up to 3.5 cm diameter. Lymph nodes: No abdominal or pelvic lymphadenopathy. Mesentery/Peritoneum: Mild ascites. There is again enhancement of the ascites. Patient has history of peritoneal carcinomatosis. Retroperitoneum: No mass. Vasculature: Aorta is nonaneurysmal. Pelvis: No mass, ascites or fluid collection. Bones/Soft Tissues: No acute osseous findings. Lower thorax: Noncontributory. Localizer images: No additional findings. IMPRESSION: Early small bowel obstruction suspected. Multiple clumped bowel loops in the pelvis which could also be causing bilateral hydronephrosis. Mild ascites. Security Ambassador: PSCB Transcribe Date/Time: Oct 05 2024 8:21P Dictated by : SNEHAL THORNE MD This examination was interpreted and the report reviewed and electronically signed by: SNEHAL THORNE MD on Oct 05 2024 8:44PM EST [id number] Normal [facility] Comprehensive metabolic 2000 panelon 10-05-2024 Albumin [Mass/Vol] 3.9 g/dL Normal 3.9-4.9 [facility] Comment on above: Order Comment: Speci men Type: BLOOD SPECIMENOrdering Facility: [facility] Address: [address] [place] [address] Performed By: #### 2 4323-8, 3040-3 ####[facility] LABORATORYCLIA [id number] [place] [address] [place] ALP [Catalytic activity/Vol] 75 U/L Normal 34-123 [facility] Comment on above: Order Comment: Speci men Type: BLOOD SPECIMENOrdering Facility: [facility] Address: [address] [place] [address] Performed By: #### 2 4323-8, 0-3 ####[facility] LABORATORYCLIA [id number] [address] [place] ALT With P-5'-P [Catalytic activity/Vol] 9 U/L Normal 7-38 [facility] Comment on above: Order Comment: Speci men Type: BLOOD SPECIMENOrdering Facility: [facility] Address: [address] [place] [address] Performed By: #### 2 4323-8, 3040-3 ####[facility] LABORATORYCLIA [id number] [place] [address] [place] Anion gap [Moles/Vol] 13 mmol/L Normal 8-15 [facility] Comment on above: Order Comment: Speci men Type: BLOOD SPECIMENOrdering Facility: [facility] Address: [address] [place] [address] Performed By: #### 2 4323-8, 3040-3 ####[facility] LABORATORYCLIA [id number] [place] [id number] [place] AST With P-5'-P [Catalytic activity/Vol] 22 U/L Normal 13-35 [facility] Comment on above: Order Comment: Speci men Type: BLOOD SPECIMENOrdering Facility: [facility] Address: [address] [place] [address] Performed By: #### 2 4323-8, 0-3 ####[facility] LABORATORYCLIA [id number] [place] [address] [place] Bilirubin [Mass/Vol] 0.5 mg/dL Normal 0.2-1.3 [facility] Comment on above: Order Comment: Speci men Type: BLOOD SPECIMENOrdering Facility: [facility] Address: [address] [place] [address] Performed By: #### 2 4323-8, 3040-3 ####[facility] LABORATORYCLIA [id number] [place] [address] [place] Calcium [Mass/Vol] 9.8 mg/dL Normal 8.5-10.2 [facility] Comment on above: Order Comment: Speci men Type: BLOOD SPECIMENOrdering Facility: [facility] Address: [address] [place] [address] Performed By: #### 2 4323-8, 3040-3 ####[facility] LABORATORYCLIA [id number] [place] [address] [place] Chloride [Moles/Vol] 101 mmol/L Normal 98-107 [facility] Comment on above: Order Comment: Speci men Type: BLOOD SPECIMENOrdering Facility: [facility] Address: [address] [place] [address] Performed By: #### 2 4323-8, 0-3 ####[facility] LABORATORYCLIA [id number] [address] STATES OF [facility] CO2 [Moles/Vol] 23 mmol/L Normal 22-30 [facility] Comment on above: Order Comment: Speci men Type: BLOOD SPECIMENOrdering Facility: [facility] Address: [address] [place] [address] Performed By: #### 2 4323-8, 3039-3 ####[facility] LABORATORYCLIA [id number] [address] OF [facility] Creatinine [Mass/Vol] 0.79 mg/dL Normal 0.58-0.96 [facility] Comment on above: Order Comment: Speci men Type: BLOOD SPECIMENOrdering Facility: [facility] Address: [address] [place] [address] Performed By: #### 2 4323-8, 3 ####[facility] LABORATORYCLIA [id number] [address] Creatinine and Glomerular filtration rate.predicted panel (S/P/Bld) 78 mL/min/1.73m??? Normal >=60 [facility] Comment on above: Order Comment: Speci men Type: BLOOD SPECIMENOrdering Facility: [facility] Address: [address] [place] [address] Result Comment: Myranda mated Glomerular Filtration Rate (eGFR) is calculated using the 2020 CKD-EPI creatinine equation. This equation utilizes serum creatinine, sex, and age as parameters. The creatinine assay has traceable calibration to isotope dilution-mass spectrometry. Refer to KDIGO guidelines for clinical interpretation. In patients with unstable renal function, e.g. those with acute kidney injury, the eGFR may not accurately reflect actual GFR. Performed By: #### 2 4323-8, 0-3 ####[facility] LABORATORYCLIA [id number] [place] [id number] [place] Glucose [Mass/Vol] 104 mg/dL High 74-99 [facility] Comment on above: Order Comment: Speci men Type: BLOOD SPECIMENOrdering Facility: [facility] Address: [address] [place] [address] Result Comment: The [place] Diabetes Association (ADA) provides guidance for cutoff values for fasting glucose and random glucose. The ADA defines fasting as no caloric intake for at least 8 hours. Fasting plasma glucose results between 100 to 125 mg/dL indicate increased risk for diabetes (prediabetes). Fasting plasma glucose results greater than or equal to 126 mg/dL meet the criteria for diagnosis of diabetes. In the absence of unequivocal hyperglycemia, results should be confirmed by repeat testing. In a patient with classic symptoms of hyperglycemia or hyperglycemic crisis, random plasma glucose results greater than or equal to 200 mg/dL meet the criteria for diagnosis of diabetes. Reference: Standards of Medical Care in Diabetes 2016, [place] [employer] Association. Diabetes Care. 2016.39(Suppl 1). Performed By: #### 2 4323-8, 0-3 ####[facility] LABORATORYCLIA [id number] [place] [address] [place] Potassium [Moles/Vol] 4.1 mmol/L Normal 3.7-5.1 [facility] Comment on above: Order Comment: Pete treva Type: BLOOD SPECIMENOrdering Facility: [facility] Address: [address] [place] [address] Performed By: #### 2 4323-8, 0-3 ####[facility] LABORATORYCLIA [id number] [place] [address] [place] Protein [Mass/Vol] 7.2 g/dL Normal 6.3-8.0 [facility] Comment on above: Order Comment: Christianoi treva Type: BLOOD SPECIMENOrdering Facility: [facility] Address: [address] [place] [address] Performed By: #### 2 4323-8, 3040-3 ####[facility] LABORATORYCLIA [id number] [place] [address] [place] Sodium [Moles/Vol] 137 mmol/L Normal 136-144 [facility] Comment on above: Order Comment: Speci men Type: BLOOD SPECIMENOrdering Facility: [facility] Address: [address] [place], [place] [id number] Performed By: #### 2 4323-8, 3040-3 ####[facility] LABORATORYCLIA [id number] [place] [address] [facility] Urea nitrogen [Mass/Vol] 17 mg/dL Normal 7-21 [facility] Comment on above: Order Comment: Speci men Type: BLOOD SPECIMENOrdering Facility: [facility] Address: [address] [place] [address] Performed By: #### 2 4323-8, 3040-3 ####[facility] LABORATORYCLIA [id number] [place] [id number] [facility] ECG COMPLETEon 10-05-2024 ECG COMPLETE Ventricular Rate : 6 6 BPM Atrial Rate : 66 BPM P-R Interval : 116 ms QRS Duration : 80 ms Q-T Interval : 422 ms QTC Calculation(Bazett) : 442 ms Calculated P [place] : 47 degrees Calculated R [place] : 62 degrees Calculated T [place] : 70 degrees NORMAL SINUS RHYTHM NORMAL ECG NO PREVIOUS ECGS AVAILABLE Confirmed by IMAN BOUDREAUX MD ([id number]) on 10/12/2024 4:50:00 PM NAME : SAVANA PATEL PID : [id number] : 1950 Gender : Female Race : ORD : [id number] Procedure Date : Oct 05 2024 17:44:52 Edit Date : Oct 12 2024 16:50:04 Diagnosis: NORMAL SINUS RHYTHM NORMAL ECG NO PREVIOUS ECGS AVAILABLE Confirmed by IMAN BOUDREAUX MD ([id number]) on 10/12/2024 4:50:00 PM Test Reason : Chest Pain Location : 4 : AKED EM Overread By : IMAN BOUDREAUX MD Edited By : IMAN BOUDREAUX MD Referred By : , Acquired by : VENTURA HODGSON [facility] ED NOTEon 10-05-2024 ED NOTE HNO ID: [id number] Author: VENTURA HODGSON, RN Service: Emergency Medicine Author Type: Registered Nurse Type: ED Notes Filed: 10/05/2024 17:16 Note Text: CT notified Normal [facility] ED NOTE HNO ID: [id number] Author: VENTURA HODGSON, SHEILA Service: Emergency Medicine Author Type: Registered Nurse Type: ED Notes Filed: 10/05/2024 16:49 Note Text: US at bedside Normal [facility] ED NOTE HNO ID: [id number] Author: VENTURA HODGSON RN Service: Emergency Medicine Author Type: Registered Nurse Type: ED Notes Filed: 10/05/2024 16:44 Note Text: US notified Normal [facility] ED NOTE HNO ID: [id number] Author: ROLANDO MADDOX RN Service: ? Author Type: Registered Nurse Type: ED Notes Filed: 10/05/2024 15:28 Note Text: Bed: 21-ED Expected date: Expected time: Means of arrival: Comments: Triage when clean [facility] ED PROV NOTEon 10-05-2024 ED PROV NOTE HNO ID: [id number] Author: IMAN MERINO MD Service: Emergency Medicine Author Type: Physician Type: ED Provider Notes Filed: 10/05/2024 17:46 Note Text: Attending Physician Attestation Note: Braun findings confirmed. I saw the patient in coordination with the resident physician. I personally interviewed and examined the patient. I discussed the patient with the resident physician. I reviewed the resident physician's note. I was present for braun portions of and personally supervised any/all procedures. I agree with the resident physician's findings and medical decision making unless otherwise documented. Patient is a 74-year-old female who has has history significant for DCIS, left mastectomy in 2007, history of hyperlipidemia, hypertension, osteoarthritis currently undergoing oral chemotherapy for metastatic ovarian cancer referred to the emergency department for assessment by her oncologist for upper abdominal pain History provided by patient, family member at the bedside. Reports acute onset of abdominal pain today. States that she woke up this morning had severe epigastric pain which she describes as cramping, similar to sharp gas pains. Had severe nausea, episodes of nonbloody emesis. Was unable to tolerate p.o. due to severity of pain and nausea. Did have a bowel movement this morning that was soft, formed. Still passing gas No fevers or chills. No chest pain cough or shortness of breath. Is on oral chemotherapy and there was concern that maybe this agent was causing biliary issues so she was referred here for ED assessment 10 point review of systems completed with pertinent positives and negatives as per history of present illness, otherwise negative. Physical exam Patient is chronically ill but not acutely toxic. Vital signs are stable and she is afebrile hemodynamically stable and afebrile Heart RRR w/o murmurs; Distal pulses intact Lungs CTAB Abd soft, ND. TTP to epigatric and RUQ. Noted also to LUQ, less severe. No rebound or guarding. No peritoneal signs. No CVA TTP Patient moves all 4 extremities spontaneously and without deficit MDM Patient is a 74-year-old female with history as above presenting with complaints of abdominal pain. History and exam as above. Medical record reviewed. Additional encounters reviewed: Phone encounter with oncology from earlier today, last heme-onc visit from September 08, 2024 HPI obtained from patient, family member at the bedside, medical Triage EKG was obtained and reviewed by myself. Sinus rhythm noted, ventricular 66 bpm. Intervals within normal limits. No acute ST or T wave changes indicative of ischemia, no significant dysrhythmia Triage Vitals reviewed: Triage vitals are stable blood pressure 159/72 on triage, heart rate of 67. Afebrile temp of 36.6 DDx considered : This time for possible gastritis, GERD, biliary colic, possible acute cholecystitis but also consider possible pancreatitis. Did consider possible side effect of her oral chemotherapy agent. Will check basic lab assessment, ultrasound right upper quadrant as well as CT imaging as she does have known metastatic ovarian cancer with metastases to the omentum. Treated symptomatically in the emergency department with morphine, Zofran Iman Merino MD This note was created using [employer] dictation software. Every attempt was made to proofread, however you may find errors regardless of how insignificant they may be. They are purely unintentional and if there are any concerns regarding this dictation, please do not hesitate to call the dictating provider for clarification. IMAN MERINO 10/05/24 7331 Normal [facility] ED PROV NOTE HNO ID: [id number] Author: IMAN MERINO MD Service: Emergency Medicine Author Type: Resident Type: ED Provider Notes Filed: 10/09/2024 07:44 Note Text: -- Attestation signed by Iman Merino MD at 10/09/2024 7:44 AM Attending Physician Attestation Note: Braun findings confirmed. I saw the patient in coordination with the resident physician. I personally interviewed and examined the patient. I discussed the patient with the resident physician. I reviewed the resident physician's note. I was present for braun portions of and personally supervised any/all procedures. I agree with the resident physician's findings and medical decision making unless otherwise documented. Iman Merino MD Signature: Iman Merino MD Date: 10/09/2024 Time: 7:44 AM -- ED Provider Note Patient Name: Savana Patel : 1950 SERVICE DATE: 10/05/24 History Patient presents with: Sent By Md: Pt sent by oncologist for evaluation of epigastric pain +nANDv -sob Patient is a 74-year-old female presenting to the emergency department for upper abdominal pain. Patient has a past medical history of breast cancer status post right mastectomy, ovarian cancer, carcinomatosis, GERD, anemia on oral chemotherapy. Patient states she has never had radiation but did have IV chemotherapy about 2 months ago. She states that this morning around 5 AM she developed sudden onset upper abdominal pain. She reports nausea with multiple episodes of nonbloody emesis. Denies any fevers or chills. Denies chest pain or shortness of breath. Denies any change in her bowels. States she had a normal bowel movement this morning. Denies any dysuria or hematuria. Her oncologist recommended that she come in to be evaluated for possible gallbladder problem. PAST MEDICAL HISTORY Diagnosis Date Advance directive discussed with patient 08/24/2022 Discussed 08/2022: Up to date DEANDRE positive 07/25/2016 Rheum felt just Arthritis. 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, NON-NEOPLASTIC 02/18/2007 Constipation 04/04/2015 Dysmetabolic syndrome X 12/28/2007 Essential hypertension 04/04/2015 GERD without esophagitis 07/24/2020 Hemorrhage of gastrointestinal tract, unspecified History of left mastectomy 05/05/2018 Internal hemorrhoids without mention of complication Iron deficiency anemia due to chronic blood loss 09/02/2023 Iron malabsorption (HCC) 09/02/2023 Leg cramps 01/08/2020 Living will on file 07/31/2021 DPA: Javier ( ) Malignant neoplasm of both ovaries (HCC) 10/26/2018 Mixed hyperlipidemia 04/04/2015 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 multiple joints 07/27/2016 Osteopenia 12/28/2012 Other seborrheic keratosis 02/18/2007 Panic attacks 07/18/2012 Primary insomnia 01/29/2022 S/P colectomy 08/06/2023 SOLAR LENGINES///DYSCHROMIA OTHER 02/18/2007 Thrombocytopenia 01/29/2022 chronic Trigger ring finger of left hand 07/24/2020 Trigger ring finger of right hand 07/24/2020 PAST SURGICAL HISTORY Procedure Laterality Date BX BREAST PERC VACUUM/ROTN 10/26/2007 LEFT COLONOSCOPY FLX DX W/COLLJ SPEC WHEN PFRMD 07/20/2005 COLONOSCOPY FLX DX W/COLLJ SPEC WHEN PFRMD 05/01/2016 normal - 10 year follow up LAPAROSCOPIC HEMICOLECTOMY Right 06/2023 LIG/TRNSXJ FLP TUBE ABDL/VAG APPR UNI/BI Tubal ligation MAST RAD W/PECTORAL MUSCLES AXILLARY LYMPH NODES 11/2007 Left PAST SURGICAL HISTORY OF BACK SURGERY PAST SURGICAL HISTORY OF 10/06/2018 Exploratory laparotomy, total abdominal hysterectomy, bilateral salpingooophorectomy, and bladder and posterior culdesac peritoneum resected en bloc, omentectomy PLCMT LOCALZTN CLIP,PERC,DURING BREAST BX 10/26/2007 LEFT S PORT-A-CATH 21-1501 11/09/2018 TONSILLECTOMY PRIMARY/SECONDARY Tonsillectomy FAMILY HISTORY Problem Relation Age of Onset Ovarian cancer Mother dx 50s Arthritis Father No Known Problems Maternal Grandmother No Known Problems Maternal Grandfather No Known Problems Paternal Grandmother No Known Problems Paternal Grandfather Cancer Maternal Aunt 7 aunts with breast or ovarian cancer. details unknown Social History Tobacco Use Smoking status: Never Passive exposure: Never Smokeless tobacco: Never Vaping Use Vaping status: Never Used Substance and Sexual Activity Alcohol use: Never Drug use: Never Sexual activity: Not Currently Partners: Male ALLERGIES Aller (more content not included)... [facility] ED Triage Noteon 10-05-2024 ED Triage Note HNO ID: [id number] Author: KAIDEN ANDREA APRN.CNP Service: Emergency Medicine Author Type: Nurse Practitioner Type: ED Triage Notes Filed: 10/05/2024 15:27 Note Text: ED TRIAGE PROVIDER NOTE Patient Name: Savana Patel Service Date: 10/05/24 BRIEF HPI: This is a 74 year old female who presents to the ED with: Midepigastric to right upper abdominal pain. Started this morning. Patient is a active oncology patient last IV chemo was approximately 2 months ago. Has been started on a new oral chemo pill 1 month ago. Doctor has high concern for her gallbladder they are unsure if this is a possible side effect of her oral agent as she has been asked multiple times if she has issues with her gallbladder or any pain. After waking up this morning raised and alert. Nausea but no vomiting. Does not change when eating or drinking. No fever or chills. No chest pain or shortness of breath. BRIEF EXAM: NAD Awake and Alert Non labored breathing Midepigastric abdominal tenderness INITIAL WORKUP AND DECISION MAKING: Orders Placed This Encounter No orders of the defined types were placed in this encounter. SIGNATURE: Kaiden Andrea APRN.REGIONAL WILDLIFE AGENT [facility] HIGH SENSITIVITY TROPONIN To n 10-05-2024 Troponin T.cardiac High sensitivity method [Mass/Vol] 16 ng/L High <12 [facility] Comment on above: Order Comment: Speci men Type: BLOOD SPECIMENOrdering Facility: [facility] Address: [address] [place] [address] Performed By: #### H STNT ####[facility] LABORATORYCLIA [id number] [address] HIGH SENSITIVITY TROPONIN T (INITIAL)on 10-05-2024 Troponin T.cardiac High sensitivity method [Mass/Vol] 17 ng/L High <12 [facility] Comment on above: Order Comment: Speci men Type: BLOOD SPECIMENOrdering Facility: [facility] Address: [address] [place] [address] Performed By: #### L [id number] ####[facility] LABORATORYCLIA [id number] [address] HIGH SENSITIVITY TROPONIN T (SECOND)on 10-05-2024 Troponin T.cardiac High sensitivity method [Mass/Vol] 17 ng/L High <12 [facility] Comment on above: Order Comment: Speci men Type: BLOOD SPECIMENOrdering Facility: [facility] Address: [address] [place] [address] Performed By: #### L [id number] ####[facility] LABORATORYCLIA [id number] [address] [place] Lipase SerPl-cCncon 10-06-19 25 Lipase [Catalytic activity/Vol] 21 U/L Normal 16-61 [facility] Comment on above: Order Comment: Speci men Type: BLOOD SPECIMENOrdering Facility: [facility] Address: [address] [place] [address] Performed By: #### 2 4323-8, 3040-3 ####[facility] LABORATORYCLIA [id number] [place] [address] [place] US ABD RIGHT UPPER QUADRANTo n 10-05-2024 US ABD RIGHT UPPER QUADRANT * * *Final Report* * * DATE OF EXAM: Oct 05 2024 5:50PM [facility] 1032 - US ABD RIGHT UPPER QUADRANT / PROCEDURE REASON: Cholelithiasis * * * * Physician Interpretation * * * * EXAMINATION: RIGHT UPPER QUADRANT and Spleen ULTRASOUND CLINICAL HISTORY: Cholelithiasis right upper quadrant pain TECHNIQUE: Sonography of the right upper quadrant was performed. Images were obtained and stored in a permanent archive. MQ: URUQ_2 COMPARISON: CT abdomen pelvis 08/30/2024 RESULT: Pancreas: Normal sonographic appearance. Portions obscured: Body and tail Liver: Echotexture: Normal, homogeneous. Echogenicity: Normal Surface contour: Smooth Lesions: None. Biliary: No intrahepatic biliary duct dilation. CBD: 0.4 at the hilum. Gallbladder: Wall is 5 mm. Krause's sign is negative. Gallbladder sludge. Mild bilateral hydronephrosis. Ascites: Mild. Spleen: 10 cm in length. IMPRESSION: Gallbladder wall thickening with negative Krause sign. Findings may be related to fluid overload/cirrhosis. Correlate clinically for cholecystitis. Bilateral mild hydronephrosis. Consider follow-up CT abdomen pelvis. Security Ambassador: SUMMER Transcribe Date/Time: Oct 05 2024 6:20P Dictated by : SNEHAL THORNE MD This examination was interpreted and the report reviewed and electronically signed by: SNEHAL THORNE MD on Oct 05 2024 6:26PM EST [id number] Normal [facility] US ABD SPLEEN -NBon 10-06-19 US ABD SPLEEN -NB * * *Final Report* * * DATE OF EXAM: Oct 05 2024 5:50PM [facility] 1232 - US ABD SPLEEN -NB / PROCEDURE REASON: Cholelithiasis * * * * Physician Interpretation * * * * EXAMINATION: RIGHT UPPER QUADRANT and Spleen ULTRASOUND CLINICAL HISTORY: Cholelithiasis right upper quadrant pain TECHNIQUE: Sonography of the right upper quadrant was performed. Images were obtained and stored in a permanent archive. MQ: URUQ_2 COMPARISON: CT abdomen pelvis 08/30/2024 RESULT: Pancreas: Normal sonographic appearance. Portions obscured: Body and tail Liver: Echotexture: Normal, homogeneous. Echogenicity: Normal Surface contour: Smooth Lesions: None. Biliary: No intrahepatic biliary duct dilation. CBD: 0.4 at the hilum. Gallbladder: Wall is 5 mm. Krause's sign is negative. Gallbladder sludge. Mild bilateral hydronephrosis. Ascites: Mild. Spleen: 10 cm in length. IMPRESSION: Gallbladder wall thickening with negative Krause sign. Findings may be related to fluid overload/cirrhosis. Correlate clinically for cholecystitis. Bilateral mild hydronephrosis. Consider follow-up CT abdomen pelvis. Security Ambassador: SUMMER Transcribe Date/Time: Oct 05 2024 6:20P Dictated by : SNEHAL THORNE MD This examination was interpreted and the report reviewed and electronically signed by: SNEHAL THORNE MD on Oct 05 2024 6:26PM EST [id number] Normal [facility] Urinalysis complete panel (U )on 10-05-2024 Bilirubin Ql (U) Negative Normal Negative [facility] Comment on above: Order Comment: Speci men Type: URINE SPECIMENOrdering Facility: [facility] Address: [address] [place] [address] Performed By: #### 2 4356-8 ####[facility] LABORATORYCLIA [id number] [address] [place] Clarity (Unsp spec) Clear Normal Clear [facility] Comment on above: Order Comment: Speci men Type: URINE SPECIMENOrdering Facility: [facility] Address: [address] [place] [address] Performed By: #### 2 4356-8 ####[facility] LABORATORYCLIA [id number] [place] [address] [place] Color (U) Yellow Normal yellow [facility] Comment on above: Order Comment: Speci men Type: URINE SPECIMENOrdering Facility: [facility] Address: [address] [place] [address] Performed By: #### 2 4356-8 ####[facility] LABORATORYCLIA [id number] [place] [address] [place] Epithelial cells LM.HPF (Urine sed) [#/Area] Few Normal [facility] Comment on above: Order Comment: Speci men Type: URINE SPECIMENOrdering Facility: [facility] Address: [address] [place] [address] Result Comment: Few Performed By: #### 2 4356-8 ####[facility] LABORATORYCLIA [id number] [address] Glucose Test strip (U) [Mass/Vol] Negative Normal Trace, Negative [facility] Comment on above: Order Comment: Speci men Type: URINE SPECIMENOrdering Facility: [facility] Address: [address] [place] [address] Performed By: #### 2 4356-8 ####[facility] LABORATORYCLIA [id number] [address] [place] [facility] Hemoglobin Ql (U) Negative Normal Negative, Trace [facility] Comment on above: Order Comment: Speci men Type: URINE SPECIMENOrdering Facility: [facility] Address: [address] [place] [address] Performed By: #### 2 4356-8 ####[facility] LABORATORYCLIA [id number] [address] OF [facility] Hyaline casts (Urine sed) [#/Area] 4-10 /LPF Abnormal 0 /LPF [facility] Comment on above: Order Comment: Speci men Type: URINE SPECIMENOrdering Facility: [facility] Address: [address] [place] [address] Performed By: #### 2 4356-8 ####[facility] LABORATORYCLIA [id number] [address] OF [facility] Ketones Ql (U) 1+ Abnormal Negative, Trace [facility] Comment on above: Order Comment: Speci men Type: URINE SPECIMENOrdering Facility: [facility] Address: [address] [place] [address] Performed By: #### 2 4356-8 ####[facility] LABORATORYCLIA [id number] [address] Leukocyte esterase Test strip Ql (U) Negative Normal Negative, 25 Yury/uL [facility] Comment on above: Order Comment: Speci men Type: URINE SPECIMENOrdering Facility: [facility] Address: [address] [place] [address] Performed By: #### 2 4356-8 ####[facility] LABORATORYCLIA [id number] [place] [address] [place] [facility] Nitrite Ql (U) Negative Normal Negative [facility] Comment on above: Order Comment: Speci men Type: URINE SPECIMENOrdering Facility: [facility] Address: [address] [place] [address] Performed By: #### 2 4356-8 ####[facility] LABORATORYCLIA [id number] [address] [place] pH (U) 6.0 [pH] Normal 5.0-8.0 [facility] Comment on above: Order Comment: Speci men Type: URINE SPECIMENOrdering Facility: [facility] Address: [address] [place] [address] Performed By: #### 2 4356-8 ####[facility] LABORATORYCLIA [id number] [address] [place] Protein (U) [Mass/Vol] 1+ Abnormal Trace , Negative [facility] Comment on above: Order Comment: Speci men Type: URINE SPECIMENOrdering Facility: [facility] Address: [address] [place] [address] Performed By: #### 2 4356-8 ####[facility] LABORATORYCLIA [id number] [address] [place] RBC LM.HPF (Urine sed) [#/Area] 0-3 /HPF Normal 0-3 /HPF [facility] Comment on above: Order Comment: Speci men Type: URINE SPECIMENOrdering Facility: [facility] Address: [address] [place] [address] Performed By: #### 2 4356-8 ####[facility] LABORATORYCLIA [id number] [address] [place] Specific gravity (U) [Rel density] 1.025 Normal 1.005-1.030 [facility] Comment on above: Order Comment: Speci men Type: URINE SPECIMENOrdering Facility: [facility] Address: [address] [place] [address] Performed By: #### 2 4356-8 ####[facility] LABORATORYCLIA [id number] [place] [id number] [place] [facility] Urobilinogen Ql (U) Normal Normal Normal [facility] Comment on above: Order Comment: Speci men Type: URINE SPECIMENOrdering Facility: [facility] Address: [address] [place] [address] Performed By: #### 2 4356-8 ####[facility] LABORATORYCLIA [id number] [place] [id number] [place] WBC LM.HPF (Urine sed) [#/Area] 0-5 /HPF Normal 0-5 /HPF [facility] Comment on above: Order Comment: Speci men Type: URINE SPECIMENOrdering Facility: [facility] Address: [address] [place] [address] Performed By: #### 2 4356-8 ####[facility] LABORATORYCLIA [id number] [address] [place] US ASCITES SURVEYon 10-05-19 US ASCITES SURVEY * * *Final Report* * * DATE OF EXAM: Oct 04 2024 9:31AM [facility] 1016 - US ASCITES SURVEY / PROCEDURE REASON: multiple diagnoses * * * * Physician Interpretation * * * * Ultrasound US ASCITES SURVEY HISTORY: 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 Comparison: None RESULT: Findings: Very minimal fluid is noted in the abdomen and pelvis IMPRESSION: Minimal fluid noted in the abdomen and pelvis. Therefore no paracentesis was performed Security Ambassador: PSCB Transcribe Date/Time: Oct 05 2024 4:58P Dictated by : GINA ACOSTA DO This examination was interpreted and the report reviewed and electronically signed by: GINA ACOSTA DO on Oct 05 2024 4:59PM EST [id number] [facility] CBC W Auto Differential pane l (Bld)on 09-29-2024 Basophils (Bld) [#/Vol] [facility] Basophils/100 WBC (Bld) 0.5 % [facility] Differential cell count method Nom (Bld) Auto [facility] Eosinophils (Bld) [#/Vol] 0.05 10*3/uL [facility] Eosinophils/100 WBC (Bld) 1.3 % [facility] Erythrocyte distribution width (RBC) [Ratio] 21.1 % High 11.5 - 15.0 % [facility] Hematocrit (Bld) [Volume fraction] 25.6 % Low 36.0 - 46.0 % [facility] Hemoglobin (Bld) [Mass/Vol] 8.1 g/dL Low 11.5 - 15.5 g/dL [facility] Immature granulocytes (Bld) [#/Vol] [facility] Immature granulocytes/100 WBC (Bld) 0.3 % [facility] Interpretation and review of laboratory results Abnormal [facility] Lymphocytes (Bld) [#/Vol] 0.87 10*3/uL Low [facility] Lymphocytes/100 WBC (Bld) 22.5 % [facility] MCH (RBC) [Entitic mass] 25.5 pg Low 26.0 - 34.[address] [facility] MCHC (RBC) [Mass/Vol] 31.6 g/dL 30.5 - 36.0 g/dL [facility] MCV (RBC) [Entitic vol] 80.5 fL 80.0 - 100.[address] [facility] Monocytes (Bld) [#/Vol] 0.31 10*3/uL [facility] Monocytes/100 WBC (Bld) 8 % [facility] Neutrophils (Bld) [#/Vol] 2.61 10*3/uL [facility] Neutrophils/100 WBC (Bld) 67.4 % [facility] Nucleated RBC (Bld) [#/Vol] [facility] Nucleated RBC/100 WBC (Bld) [Ratio] 0 % /[address] [facility] Platelet mean volume (Bld) [Entitic vol] 9.4 fL 9.0 - 12.[address] [facility] Platelets (Bld) [#/Vol] 161 10*3/uL [facility] RBC (Bld) [#/Vol] 3.18 10*6/uL Low 3.90 - 5.2 0 m/uL [facility] WBC (Bld) [#/Vol] 3.87 10*3/uL [facility] Comprehensive metabolic 2000 panelOrdered By: Tiffany Caceres on 09-29-2024 Albumin [Mass/Vol] 3.8 g/dL Low 3.9 - 4.9 g/dL [facility] ALP [Catalytic activity/Vol] 81 U/L 34 - 123 U/L [facility] ALT [Catalytic activity/Vol] 9 U/L 7 - 38 U/L [facility] Anion gap [Moles/Vol] 7 mmol/L Low 8 - 15 mmol/L [facility] AST [Catalytic activity/Vol] 18 U/L 13 - 35 U/L [facility] Bilirubin [Mass/Vol] 0.4 mg/dL 0.2 - 1 .3 mg/dL [facility] Calcium [Mass/Vol] 9.6 mg/dL 8.5 - 10. 2 mg/dL [facility] Chloride [Moles/Vol] 103 mmol/L 98 - 10 7 mmol/L [facility] CO2 [Moles/Vol] 26 mmol/L 22 - 30 mmol/L [facility] Creatinine [Mass/Vol] 0.84 mg/dL 0.58 - 0.96 mg/dL [facility] GFR/1.73 sq M.predicted among non-blacks MDRD (S/P/Bld) [Vol rate/Area] 73 mL/min/{1.73_m2} - PINF [facility] Comment on above: Estimated Glomerular Filtration Rate (eGFR) is calculated using the 2020 CKD-EPI creatinine equation. This equation utilizes serum creatinine, sex, and age as parameters. The creatinine assay has traceable calibration to isotope dilution-mass spectrometry. Refer to KDIGO guidelines for clinical interpretation. In patients with unstable renal function, e.g. those with acute kidney injury, the eGFR may not accurately reflect actual GFR. Glucose [Mass/Vol] 96 mg/dL 74 - 99 mg/dL [facility] Comment on above: The [place] Diab[employer] s Association (ADA) provides guidance for cutoff values for fasting glucose and random glucose. The ADA defines fasting as no caloric intake for at least 8 hours. Fasting plasma glucose results between 100 to 125 mg/dL indicate increased risk for diabetes (prediabetes). Fasting plasma glucose results greater than or equal to 126 mg/dL meet the criteria for diagnosis of diabetes. In the absence of unequivocal hyperglycemia, results should be confirmed by repeat testing. In a patient with classic symptoms of hyperglycemia or hyperglycemic crisis, random plasma glucose results greater than or equal to 200 mg/dL meet the criteria for diagnosis of diabetes. Reference: Standards of Medical Care in Diabetes 2016, [place] [employer]. Diabetes Care. 2016.39(Suppl 1). Interpretation and review of laboratory results Abnormal [facility] Potassium [Moles/Vol] 4.2 mmol/L 3.7 - 5.1 mmol/L [facility] Protein [Mass/Vol] 7.1 g/dL 6.3 - 8.0 g/dL [facility] Sodium [Moles/Vol] 136 mmol/L 136 - 144 mmol/L [facility] Urea nitrogen [Mass/Vol] 17 mg/dL 7 - 21 mg/dL [facility] CA 125on 09-22-2024 Cancer Ag 125 Qn 2861 [arb'U]/mL High NINF - 3 9 U/mL [facility] Comment on above: CA 125 test methodol ogy used is the Electrochemiluminescence Immunoassay by [employer]. Results obtained with different methods or kits cannot be used interchangeably. The reference interval is based on the 95th percentile of 240 apparently healthy premenopausal and postmenopausal women. At a cutoff value of 65 U/mL, the test sensitivity to distinguish ovarian carcinoma (FIGO stage I to IV) versus benign gynecological disease is 79%, with a specificity of 82%. Reference: Cancer Antigen 125 (CA 125 II) [package insert V 1.0 [place]]. [employer] [facility], [place], [place] (March 2015) CBC W Auto Differential pane l (Bld)on 09-22-2024 Basophils (Bld) [#/Vol] 0.03 10*3/uL [facility] Basophils/100 WBC (Bld) 0.6 % [facility] Differential cell count method Nom (Bld) Auto [facility] Eosinophils (Bld) [#/Vol] 0.06 10*3/uL [facility] Eosinophils/100 WBC (Bld) 1.3 % [facility] Erythrocyte distribution width (RBC) [Ratio] 20.1 % High 11.5 - 15.0 % [facility] Hematocrit (Bld) [Volume fraction] 27.8 % Low 36.0 - 46.0 % [facility] Hemoglobin (Bld) [Mass/Vol] 8.7 g/dL Low 11.5 - 15.5 g/dL [facility] Immature granulocytes (Bld) [#/Vol] NINF [facility] Immature granulocytes/100 WBC (Bld) 0.2 % [facility] Interpretation and review of laboratory results Abnormal [facility] Lymphocytes (Bld) [#/Vol] 0.96 10*3/uL Low [facility] Lymphocytes/100 WBC (Bld) 20.1 % [facility] MCH (RBC) [Entitic mass] 25 pg Low 26.0 - 34.[address] [facility] MCHC (RBC) [Mass/Vol] 31.3 g/dL 30.5 - 36.0 g/dL [facility] MCV (RBC) [Entitic vol] 79.9 fL Low 80.0 - 100.[address] [facility] Monocytes (Bld) [#/Vol] 0.33 10*3/uL NINF [facility] Monocytes/100 WBC (Bld) 6.9 % [facility] Neutrophils (Bld) [#/Vol] 3.39 10*3/uL [facility] Neutrophils/100 WBC (Bld) 70.9 % [facility] Nucleated RBC (Bld) [#/Vol] [facility] Nucleated RBC/100 WBC (Bld) [Ratio] 0 % /[address] [facility] Platelet mean volume (Bld) [Entitic vol] 9.8 fL 9.0 - 12.[address] [facility] Platelets (Bld) [#/Vol] 170 10*3/uL [facility] RBC (Bld) [#/Vol] 3.48 10*6/uL Low 3.90 - 5.2 0 m/uL [facility] WBC (Bld) [#/Vol] 4.78 10*3/uL [facility] Cancer Ag 125 Qnon Interpretation and review of laboratory results Abnormal [facility] Comprehensive metabolic 2000 panelOrdered By: Janet Vick on 09-22-2024 Albumin [Mass/Vol] 3.9 g/dL 3.9 - 4.9 g/dL [facility] ALP [Catalytic activity/Vol] 91 U/L 34 - 123 U/L [facility] ALT [Catalytic activity/Vol] 11 U/L 7 - 38 U/L [facility] Anion gap [Moles/Vol] 8 mmol/L 8 - 15 mmol/L [facility] AST [Catalytic activity/Vol] 22 U/L 13 - 35 U/L [facility] Bilirubin [Mass/Vol] 0.5 mg/dL 0.2 - 1 .3 mg/dL [facility] Calcium [Mass/Vol] 9.7 mg/dL 8.5 - 10. 2 mg/dL [facility] Chloride [Moles/Vol] 102 mmol/L 98 - 10 7 mmol/L [facility] CO2 [Moles/Vol] 26 mmol/L 22 - 30 mmol/L [facility] Creatinine [Mass/Vol] 0.91 mg/dL 0.58 - 0.96 mg/dL [facility] GFR/1.73 sq M.predicted among non-blacks MDRD (S/P/Bld) [Vol rate/Area] 66 mL/min/{1.73_m2} - PINF [facility] Comment on above: Estimated Glomerular Filtration Rate (eGFR) is calculated using the 2020 CKD-EPI creatinine equation. This equation utilizes serum creatinine, sex, and age as parameters. The creatinine assay has traceable calibration to isotope dilution-mass spectrometry. Refer to KDIGO guidelines for clinical interpretation. In patients with unstable renal function, e.g. those with acute kidney injury, the eGFR may not accurately reflect actual GFR. Glucose [Mass/Vol] 108 mg/dL High 74 - 99 mg/dL [facility] Comment on above: The [place] Diab[employer] Association (ADA) provides guidance for cutoff values for fasting glucose and random glucose. The ADA defines fasting as no caloric intake for at least 8 hours. Fasting plasma glucose results between 100 to 125 mg/dL indicate increased risk for diabetes (prediabetes). Fasting plasma glucose results greater than or equal to 126 mg/dL meet the criteria for diagnosis of diabetes. In the absence of unequivocal hyperglycemia, results should be confirmed by repeat testing. In a patient with classic symptoms of hyperglycemia or hyperglycemic crisis, random plasma glucose results greater than or equal to 200 mg/dL meet the criteria for diagnosis of diabetes. Reference: Standards of Medical Care in Diabetes 2016, [place] [employer]. Diabetes Care. 2016.39(Suppl 1). Interpretation and review of laboratory results Abnormal [facility] Potassium [Moles/Vol] 4.1 mmol/L 3.7 - 5.1 mmol/L [facility] Protein [Mass/Vol] 7.4 g/dL 6.3 - 8.0 g/dL [facility] Sodium [Moles/Vol] 136 mmol/L 136 - 144 mmol/L 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 Images were stored in a permanent archive. RESULT: There is moderate amount of fluid within the right lower quadrant. No significant amount of fluid noted in the remaining quadrants. IMPRESSION: There is moderate amount of fluid within the right lower quadrant. No significant amount of fluid noted in the remaining quadrants. Security Ambassador: PSCB Transcribe Date/Time: Sep 22 2024 6:25A Dictated by : VLADISLAV SALAZAR MD This examination was interpreted and the report reviewed and electronically signed by: VLADISLAV SALAZAR MD on Sep 22 2024 6:26AM EST [id number] [facility] CBC W Auto Differential pane l (Bld)on 09-15-2024 Basophils (Bld) [#/Vol] 0.03 10*3/uL [facility] Basophils/100 WBC (Bld) 0.5 % [facility] Differential cell count method Nom (Bld) Auto [facility] Eosinophils (Bld) [#/Vol] 0.06 10*3/uL [facility] Eosinophils/100 WBC (Bld) 1 % [facility] Erythrocyte distribution width (RBC) [Ratio] 19.4 % High 11.5 - 15.0 % [facility] Hematocrit (Bld) [Volume fraction] 27.9 % Low 36.0 - 46.0 % [facility] Hemoglobin (Bld) [Mass/Vol] 8.7 g/dL Low 11.5 - 15.5 g/dL [facility] Immature granulocytes (Bld) [#/Vol] NINF [facility] Immature granulocytes/100 WBC (Bld) 0.3 % [facility] Interpretation and review of laboratory results Abnormal [facility] Lymphocytes (Bld) [#/Vol] 0.88 10*3/uL Low [facility] Lymphocytes/100 WBC (Bld) 15.1 % [facility] MCH (RBC) [Entitic mass] 25.1 pg Low 26.0 - 34.[address] [facility] MCHC (RBC) [Mass/Vol] 31.2 g/dL 30.5 - 36.0 g/dL [facility] MCV (RBC) [Entitic vol] 80.6 fL 80.0 - 100.[address] [facility] Monocytes (Bld) [#/Vol] 0.38 10*3/uL NINF [facility] Monocytes/100 WBC (Bld) 6.5 % [facility] Neutrophils (Bld) [#/Vol] 4.46 10*3/uL [facility] Neutrophils/100 WBC (Bld) 76.6 % [facility] Nucleated RBC (Bld) [#/Vol] NINF [facility] Nucleated RBC/100 WBC (Bld) [Ratio] 0 % /[address] [facility] Platelet mean volume (Bld) [Entitic vol] 9.8 fL 9.0 - 12.[address] [facility] Platelets (Bld) [#/Vol] 173 10*3/uL [facility] RBC (Bld) [#/Vol] 3.46 10*6/uL Low 3.90 - 5.2 0 m/uL [facility] WBC (Bld) [#/Vol] 5.83 10*3/uL [facility] Comprehensive metabolic 2000 panelOrdered By: Janet Vick on 09-15-2024 Albumin [Mass/Vol] 3.6 g/dL Low 3.9 - 4.9 g/dL [facility] ALP [Catalytic activity/Vol] 84 U/L 34 - 123 U/L [facility] ALT [Catalytic activity/Vol] 9 U/L 7 - 38 U/L [facility] Anion gap [Moles/Vol] 10 mmol/L 8 - 15 mmol/L [facility] AST [Catalytic activity/Vol] 21 U/L 13 - 35 U/L [facility] Bilirubin [Mass/Vol] 0.4 mg/dL 0.2 - 1 .3 mg/dL [facility] Calcium [Mass/Vol] 9.6 mg/dL 8.5 - 10. 2 mg/dL [facility] Chloride [Moles/Vol] 101 mmol/L 98 - 10 7 mmol/L [facility] CO2 [Moles/Vol] 24 mmol/L 22 - 30 mmol/L [facility] Creatinine [Mass/Vol] 0.79 mg/dL 0.58 - 0.96 mg/dL [facility] GFR/1.73 sq M.predicted among non-blacks MDRD (S/P/Bld) [Vol rate/Area] 78 mL/min/{1.73_m2} - PINF [facility] Comment on above: Estimated Glomerular Filtration Rate (eGFR) is calculated using the 2020 CKD-EPI creatinine equation. This equation utilizes serum creatinine, sex, and age as parameters. The creatinine assay has traceable calibration to isotope dilution-mass spectrometry. Refer to KDIGO guidelines for clinical interpretation. In patients with unstable renal function, e.g. those with acute kidney injury, the eGFR may not accurately reflect actual GFR. Glucose [Mass/Vol] 97 mg/dL 74 - 99 mg/dL [facility] Comment on above: The [place] Diab[employer] s Association (ADA) provides guidance for cutoff values for fasting glucose and random glucose. The ADA defines fasting as no caloric intake for at least 8 hours. Fasting plasma glucose results between 100 to 125 mg/dL indicate increased risk for diabetes (prediabetes). Fasting plasma glucose results greater than or equal to 126 mg/dL meet the criteria for diagnosis of diabetes. In the absence of unequivocal hyperglycemia, results should be confirmed by repeat testing. In a patient with classic symptoms of hyperglycemia or hyperglycemic crisis, random plasma glucose results greater than or equal to 200 mg/dL meet the criteria for diagnosis of diabetes. Reference: Standards of Medical Care in Diabetes 2016, [place] [employer]. Diabetes Care. 2016.39(Suppl 1). Interpretation and review of laboratory results Abnormal [facility] Potassium [Moles/Vol] 4.1 mmol/L 3.7 - 5.1 mmol/L [facility] Protein [Mass/Vol] 7.2 g/dL 6.3 - 8.0 g/dL [facility] Sodium [Moles/Vol] 135 mmol/L Low 136 - 144 mmol/L [facility] Urea nitrogen [Mass/Vol] 16 mg/dL 7 - 21 mg/dL [facility] Brittani 09-09-2024 JOSE LUISN Telephone (NICHOLE) -- JORGESAVANA Kolb ([id number]) 1950 F Date Time Provider Department 09/09/24 JS CRUZ During your visit today, we recorded the following information about you: Js Cruz DO 09/09/2024 12:30 PM Signed Add lab filed under this encounter to be drawn when next here. DO Sudheer Galdamez Brandy 09/10/2024 9:29 AM Signed Labs have been added to lab appt for this week 09/15 Rosa Willard Pss Allergies As of Date: 09/09/2024 Noted Allergy Reaction PENICILLINS 06/08/2005 2 - Rash SULFA (SULFONAMIDE ANTIBIOTICS) 06/08/2005 16 - Unknown Date Reviewed: 09/08/2024 Reviewed by: Js Cruz DO - Fully Assessed Reason for Visit: Follow Up [171] Primary Visit Diagnosis:Microcytic anemia [D50.9] Order(s):SOLUBLE TRANS RECEPTOR [SQSTRANS] Order #: [id number] FUTURE Prescriptions as of 09/10/2024 - prochlorperazine (COMPAZINE) 10 mg tablet Take 1 tablet by mouth every 6 hours as needed (For chemotherapy induced nausea and vomiting.). - senna-docusate (SENNA-S) 8.6-50 mg per tablet Take 1 tablet by mouth two times a day. - olaparib (LYNPARZA) 150 mg tablet Take 2 tablets (300 mg) by mouth two times a day. - omeprazole (PRILOSEC) 40 mg capsule Take 1 capsule by mouth once daily. - ondansetron (ZOFRAN) 8 mg tablet Take 1 tablet by mouth every 8 hours as needed for nausea/vomiting. - acetaminophen (TYLENOL) 500 mg tablet Take 2 tablets by mouth every 8 hours. 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] 11/01/2007 Impaired fasting glucose [R73.01] 11/21/2007 Dysmetabolic syndrome X [E88.810] 12/28/2007 Other acne [L70.8] 05/29/2008 Arthritis of knee, right [M17.11] 06/16/2012 Panic attacks [F41.0] 07/18/2012 Osteopenia [M85.80] 12/28/2012 Visit for routine employee relations consultant exam [Z01.419] 04/04/2015 Essential hypertension [I10] 04/04/2015 Mixed hyperlipidemia [E78.2] 04/04/2015 Constipation [K59.00] 04/04/2015 Well adult exam [Z00.00] 12/13/2015 07/13/2019 DEANDRE positive [R76.8] 07/25/2016 Osteoarthritis of multiple joints [M15.9] 07/27/2016 Medicare annual wellness visit, subsequent [Z00*07/01/2017 History of left mastectomy [Z90.12] 05/05/2018 Carcinomatosis (HCC) [C80.0] 10/06/2018 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]10/26/2018 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 Anemia [D64.9] 11/07/2018 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, 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 Leg cramps [R25.2] 01/08/2020 Hot flashes [R23.2] 01/08/2020 Bilateral hand numbness [R20.0] 01/08/2020 Trigger ring finger of left hand [M65.342] 07/24/2020 Trigger middle finger of right hand [M65.331] 07/24/2020 GERD without esophagitis [K21.9] 07/24/2020 Medication management [Z79.899] 07/24/2020 Living will on file [CKW5180] 07/31/2021 Thrombocytopenia (HCC) [D69.6] 01/29/2022 07/30/2023 Primary insomnia [F51.01] 01/29/2022 Advance directive discussed with patient [Z71.8*08/24/2022 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] 06/02/2023 08/26/2023 Carcinoma of fallopian tube, 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 Differential cell count method Nom (Bld) Auto [facility] Eosinophils (Bld) [#/Vol] 0.04 10*3/uL [facility] Eosinophils/100 WBC (Bld) 0.7 % [facility] Erythrocyte distribution width (RBC) [Ratio] 18.9 % High 11.5 - 15.0 % [facility] Hematocrit (Bld) [Volume fraction] 30.3 % Low 36.0 - 46.0 % [facility] Hemoglobin (Bld) [Mass/Vol] 9.3 g/dL Low 11.5 - 15.5 g/dL [facility] Immature granulocytes (Bld) [#/Vol] NINF [facility] Immature granulocytes/100 WBC (Bld) 0.4 % [facility] Interpretation and review of laboratory results Abnormal [facility] Lymphocytes (Bld) [#/Vol] 0.94 10*3/uL Low [facility] Lymphocytes/100 WBC (Bld) 16.8 % [facility] MCH (RBC) [Entitic mass] 24.9 pg Low 26.0 - 34.[address] [facility] MCHC (RBC) [Mass/Vol] 30.7 g/dL 30.5 - 36.0 g/dL [facility] MCV (RBC) [Entitic vol] 81 fL 80.0 - 100.[address] [facility] Monocytes (Bld) [#/Vol] 0.41 10*3/uL NINF [facility] Monocytes/100 WBC (Bld) 7.3 % [facility] Neutrophils (Bld) [#/Vol] 4.17 10*3/uL [facility] Neutrophils/100 WBC (Bld) 74.4 % [facility] Nucleated RBC (Bld) [#/Vol] NINF [facility] Nucleated RBC/100 WBC (Bld) [Ratio] 0 % /[address] [facility] Platelet mean volume (Bld) [Entitic vol] 9.9 fL 9.0 - 12.[address] [facility] Platelets (Bld) [#/Vol] 180 10*3/uL [facility] RBC (Bld) [#/Vol] 3.74 10*6/uL Low 3.90 - 5.2 0 m/uL [facility] WBC (Bld) [#/Vol] 5.6 10*3/uL [facility] Comprehensive metabolic 2000 panelon 09-08-2024 Albumin [Mass/Vol] 3.7 g/dL Low 3.9 - 4.9 g/dL [facility] ALP [Catalytic activity/Vol] 80 U/L 34 - 123 U/L [facility] ALT [Catalytic activity/Vol] 9 U/L 7 - 38 U/L [facility] Anion gap [Moles/Vol] 10 mmol/L 8 - 15 mmol/L [facility] AST [Catalytic activity/Vol] 21 U/L 13 - 35 U/L [facility] Bilirubin [Mass/Vol] 0.4 mg/dL 0.2 - 1 .3 mg/dL [facility] Calcium [Mass/Vol] 9.3 mg/dL 8.5 - 10. 2 mg/dL [facility] Chloride [Moles/Vol] 100 mmol/L 98 - 10 7 mmol/L [facility] CO2 [Moles/Vol] 25 mmol/L 22 - 30 mmol/L [facility] Creatinine [Mass/Vol] 0.9 mg/dL 0.58 - 0.96 mg/dL [facility] GFR/1.73 sq M.predicted among non-blacks MDRD (S/P/Bld) [Vol rate/Area] 67 mL/min/{1.73_m2} - PINF [facility] Comment on above: Estimated Glomerular Filtration Rate (eGFR) is calculated using the 2020 CKD-EPI creatinine equation. This equation utilizes serum creatinine, sex, and age as parameters. The creatinine assay has traceable calibration to isotope dilution-mass spectrometry. Refer to KDIGO guidelines for clinical interpretation. In patients with unstable renal function, e.g. those with acute kidney injury, the eGFR may not accurately reflect actual GFR. Glucose [Mass/Vol] 115 mg/dL High 74 - 99 mg/dL [facility] Comment on above: The [place] Di[employer] Association (ADA) provides guidance for cutoff values for fasting glucose and random glucose. The ADA defines fasting as no caloric intake for at least 8 hours. Fasting plasma glucose results between 100 to 125 mg/dL indicate increased risk for diabetes (prediabetes). Fasting plasma glucose results greater than or equal to 126 mg/dL meet the criteria for diagnosis of diabetes. In the absence of unequivocal hyperglycemia, results should be confirmed by repeat testing. In a patient with classic symptoms of hyperglycemia or hyperglycemic crisis, random plasma glucose results greater than or equal to 200 mg/dL meet the criteria for diagnosis of diabetes. Reference: Standards of Medical Care in Diabetes 2016, [place] [employer]. Diabetes Care. 2016.39(Suppl 1). Interpretation and review of laboratory results Abnormal [facility] Potassium [Moles/Vol] 3.9 mmol/L 3.7 - 5.1 mmol/L [facility] Protein [Mass/Vol] 7.1 g/dL 6.3 - 8.0 g/dL [facility] Sodium [Moles/Vol] 135 mmol/L Low 136 - 144 mmol/L [facility] Urea nitrogen [Mass/Vol] 22 mg/dL High 7 - 21 mg/dL [facility] PT panel Coag (PPP)on 2024 INR Coag (PPP) [Relative time] 1.1 {INR} Normal 0.9-1.3 [facility] Comment on above: Order Comment: Pete tilley Type: BLOOD SPECIMENOrdering Facility: [facility] Address: [address] [id number] Result Comment: Ivanna min K Antagonist (VKA) Therapeutic Range: INR 2 to 3 (Target INR of 2.5) Note: For patients treated with VKA drugs, such as warfarin, the [place] [employer] 2012 Guideline recommends a therapeutic INR range of 2 to 3 (target INR of 2.5). This recommendation includes high-risk patients with antiphospholipid syndrome with previous arterial or venous thromboembolism, current-generation mechanical or bioprosthetic aortic heart valve replacement. Note: Patients with mechanical aortic valve replacement and additional risk factors for thromboembolic events (atrial fibrillation, previous thromboembolism, LV dysfunction, hypercoagulable conditions) or an older generation mechanical AVR (i.e., ball in-Cage) or any mechanical MVR should have a INR therapeutic range of 2.5 to 3.5 (target INR of 3). Karthik BAHENA, et al. Chest 2012, 141:7S-47S Leigh RA, et al. [facility] 2017, 70: 252-289 Performed By: #### 3 4528-0 ####[facility]ORATORYCLIA [id number] [place] [address] [place] PT Coag (PPP) [Time] 11.5 s Normal 9.7-13.0 [facility] Comment on above: Order Comment: Pete tilley Type: BLOOD SPECIMENOrdering Facility: [facility] Address: [address] [place] [address] Performed By: #### 3 4528-0 ####[facility]ORATORYCLIA [id number] [place] [address] [place] US ASCITES SURVEYon 09-07-19 US ASCITES SURVEY * * *Final Report* * * DATE OF EXAM: Sep 06 2024 11:04AM CÉSAR 1016 - US ASCITES SURVEY / PROCEDURE REASON: Appointment * * * * Physician Interpretation * * * * HISTORY: 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 COMPARISON: 08/30/2024 RESULT: As above IMPRESSION: As detailed Security Ambassador: [facility] Transcribe Date/Time: Sep 06 2024 1:12P Dictated by : MAIK AC MD This examination was interpreted and the report reviewed and electronically signed by: MAIK AC MD on Sep 06 2024 1:14PM EST [id number] [facility] CBC W Auto Differential pane l (Bld)on 08-30-2024 Basophils (Bld) [#/Vol] 0.03 10*3/uL [facility] Basophils/100 WBC (Bld) 0.6 % [facility] Differential cell count method Nom (Bld) Auto [facility] Eosinophils (Bld) [#/Vol] 0.04 10*3/uL [facility] Eosinophils/100 WBC (Bld) 0.9 % [facility] Erythrocyte distribution width (RBC) [Ratio] 19.5 % High 11.5 - 15.0 % [facility] Hematocrit (Bld) [Volume fraction] 31.6 % Low 36.0 - 46.0 % [facility] Hemoglobin (Bld) [Mass/Vol] 9.5 g/dL Low 11.5 - 15.5 g/dL [facility] Immature granulocytes (Bld) [#/Vol] [facility] Immature granulocytes/100 WBC (Bld) 0.4 % [facility] Interpretation and review of laboratory results Abnormal [facility] Lymphocytes (Bld) [#/Vol] 1.25 10*3/uL [facility] Lymphocytes/100 WBC (Bld) 26.7 % [facility] MCH (RBC) [Entitic mass] 24.8 pg Low 26.0 - 34.[address] [facility] MCHC (RBC) [Mass/Vol] 30.1 g/dL Low 30.5 - 36.0 g/dL [facility] MCV (RBC) [Entitic vol] 82.5 fL 80.0 - 100.[address] [facility] Monocytes (Bld) [#/Vol] 0.59 10*3/uL NINF [facility] Monocytes/100 WBC (Bld) 12.6 % [facility] Neutrophils (Bld) [#/Vol] 2.76 10*3/uL [facility] Neutrophils/100 WBC (Bld) 58.8 % [facility] Nucleated RBC (Bld) [#/Vol] NINF [facility] Nucleated RBC/100 WBC (Bld) [Ratio] 0 % /[address] [facility] Platelet mean volume (Bld) [Entitic vol] 9 fL 9.0 - 12.[address] [facility] Platelets (Bld) [#/Vol] 294 10*3/uL [facility] RBC (Bld) [#/Vol] 3.83 10*6/uL Low 3.90 - 5.2 0 m/uL [facility] WBC (Bld) [#/Vol] 4.69 10*3/uL [facility] CT Abdomen and Pelvis W cont rast Chiquis 08-30-2024 IMPRESSION: 1. Interval decrease in stone burden in the rectosigmoid colon though moderate stool burden persists. 2. Stable top normal in caliber loops of proximal small bowel. 3. No substantial interval change in the moderate volume abdominal ascites with peritoneal enhancement most compatible with peritoneal carcinomatosis. 4. No substantial interval change in mildly prominent mesenteric lymph nodes. Security Ambassador: [facility] Transcribe Date/Time: Aug 30 2024 12:37P Dictated by : TITUS RAMIREZ MD This examination was interpreted and the report reviewed and electronically signed by: TITUS RAMIREZ MD on Aug 30 2024 12:45PM [facility] DIVISION OF RADIOLOGY * * *Final Report* * * DATE OF EXAM: Aug 30 2024 12:14PM [facility] 0530 - CT ABD/PEL W IVCON / PROCEDURE REASON: multiple diagnoses * * * * Physician Interpretation * * * * EXAMINATION: CT ABDOMEN AND PELVIS WITH IV CONTRAST CLINICAL HISTORY: Head peritoneal carcinomatosis presenting for follow-up evaluation. TECHNIQUE: CT of the abdomen and pelvis was performed using standard technique, scanning from just above the dome of the diaphragm to the symphysis pubis. MQ: CTAP_3 Contrast: Central IV: 100 ml of Omnipaque 350 Oral: 10 ml of Omni 240 10-25ml diluted with water CT Radiation dose: Integrated Dose-length product (DLP) for this visit = 527 mGy*cm. CT Dose Reduction Employed: Automated exposure control(AEC) and iterative recon COMPARISON: CT abdomen pelvis dated 08/13/2024 RESULT: Liver: No mass. Biliary: Gallbladder present without evidence of radiopaque stones. Stable pericholecystic free fluid versus mild gallbladder wall edema. Spleen: No mass. No splenomegaly. Pancreas: No mass or duct dilation. Adrenals: No mass. Kidneys: Symmetric nephrograms with no evidence of hydronephrosis. A couple of stable subcentimeter hypodense bilateral too small to characterize renal lesions. GI tract: Stable top normal in caliber proximal small bowel loops. Status post right hemicolectomy. Persistent moderate stool burden in the rectosigmoid colon though slightly decreased when compared with prior study. Lymph nodes: At no substantial interval change in mildly enlarged mesenteric lymph nodes. Mesentery/Peritoneum: After no significant interval change in moderate volume ascites with associated peritoneal enhancement most compatible with peritoneal carcinomatosis. Retroperitoneum: No mass. Vasculature: Abdominal aorta normal in caliber with scattered atherosclerotic calcifications Pelvis: The bladder incompletely distended. Status post hysterectomy. No CT evidence of suspicious adnexal mass. Bones/Soft Tissues: Degenerative changes. No CT evidence of destructive osseous lesion. Lower thorax: A chest CT performed will be reported separately. Localizer images: No additional findings. DIVISION OF RADIOLOGY Provider, [facility] - 08/30/2024 * * *Final Report* * * DATE OF EXAM: Aug 30 2024 12:14PM [facility] 0530 - CT ABD/PEL W IVCON / PROCEDURE REASON: multiple diagnoses * * * * Physician Interpretation * * * * EXAMINATION: CT ABDOMEN AND PELVIS WITH IV CONTRAST CLINICAL HISTORY: Head peritoneal carcinomatosis presenting for follow-up evaluation. TECHNIQUE: CT of the abdomen and pelvis was performed using standard technique, scanning from just above the dome of the diaphragm to the symphysis pubis. MQ: CTAP_3 Contrast: Central IV: 100 ml of Omnipaque 350 Oral: 10 ml of Omni 240 10-25ml diluted with water CT Radiation dose: Integrated Dose-length product (DLP) for this visit = 527 mGy*cm. CT Dose Reduction Employed: Automated exposure control(AEC) and iterative recon COMPARISON: CT abdomen pelvis dated 08/13/2024 RESULT: Liver: No mass. Biliary: Gallbladder present without evidence of radiopaque stones. Stable pericholecystic free fluid versus mild gallbladder wall edema. Spleen: No mass. No splenomegaly. Pancreas: No mass or duct dilation. Adrenals: No mass. Kidneys: Symmetric nephrograms with no evidence of hydronephrosis. A couple of stable subcentimeter hypodense bilateral too small to characterize renal lesions. GI tract: Stable top normal in caliber proximal small bowel loops. Status post right hemicolectomy. Persistent moderate stool burden in the rectosigmoid colon though slightly decreased when compared with prior study. Lymph nodes: At no substantial interval change in mildly enlarged mesenteric lymph nodes. Mesentery/Peritoneum: After no significant interval change in moderate volume ascites with associated peritoneal enhancement most compatible with peritoneal carcinomatosis. Retroperitoneum: No mass. Vasculature: Abdominal aorta normal in caliber with scattered atherosclerotic calcifications Pelvis: The bladder incompletely distended. Status post hysterectomy. No CT evidence of suspicious adnexal mass. Bones/Soft Tissues: Degenerative changes. No CT evidence of destructive osseous lesion. Lower thorax: A chest CT performed will be reported separately. Localizer images: No additional findings. IMPRESSION IMPRESSION: 1. Interval decrease in stone burden in the rectosigmoid colon though moderate stool burden persists. 2. Stable top normal in caliber loops of proximal small bowel. 3. No substantial interval change in the moderate volume abdominal ascites with peritoneal enhancement most compatible with peritoneal carcinomatosis. 4. No substantial interval change in mildly prominent mesenteric lymph nodes. Security Ambassador: [facility] Transcribe Date/Time: Aug 30 2024 12:37P Dictated by : TITUS RAMIREZ MD This examination was interpreted and the report reviewed and electronically signed by: TITUS RAMIREZ MD on Aug 30 2024 12:45PM EST [facility] Radiology Study observation (narrative) [facility] CT Abdomen and Pelvis W cont rast IVOrdered By: [facility] Provider on 08-30-[address] [facility] CT Chest W contrast Chiquis IMPRESSION: 1. Since 07/28/2024, stable appearance of the chest. 2. Stable right upper lobe/right apical reticulonodular changes with associated groundglass opacities. 3. Stable subcentimeter pulmonary nodules. No new or enlarging pulmonary nodules. 4. No suspect intrathoracic lymphadenopathy. Security Ambassador: [facility] Transcribe Date/Time: Aug 30 2024 12:28P Dictated by : TITUS RAMIREZ MD This examination was interpreted and the report reviewed and electronically signed by: TITUS RAMIREZ MD on Aug 30 2024 12:37PM [facility] DIVISION OF RADIOLOGY * * *Final Report* * * DATE OF EXAM: Aug 30 2024 12:14PM [facility] 0539 - CT CHEST W IVCON / PROCEDURE REASON: multiple diagnoses * * * * Physician Interpretation * * * * EXAMINATION: CHEST CT WITH CONTRAST CLINICAL HISTORY: History of peritoneal carcinomatosis. Technique: Spiral CT acquisition of the chest from the thoracic inlet to the upper abdomen following IV contrast. MQ: CTCW_6 Contrast: 100 mL Omnipaque [address] Radiation dose: Integrated Dose-length product (DLP) for this visit = 527 mGy*cm CT Dose Reduction Employed: Automated exposure control(AEC) and iterative recon Comparison: chest CT dated 07/28/2024 RESULT: Limitations: None. Lines, tubes, and devices: Right chest port terminates at the superior cavoatrial junction. Lung parenchyma and airways: There has been no appreciable interval change in the appearance of the lungs. Specifically, there are stable reticulonodular changes with associated mild groundglass opacities in the right apex and subpleural right upper lobe. There is stable mild left apical pleural parenchymal scarring. There are stable less than 6 mm scattered pulmonary nodules within both lungs with insurance claims representative measurements of follicles. Stable 3 mm left fissural-based nodule (10, 54). Stable additional nodular opacities measuring up to 3 mm along the left major fissure (for example series 10, image 66). Stable right nodular fissural based opacity measuring 4 mm (10, 97). Minimal dependent atelectasis. No new or enlarging suspicious pulmonary nodule. Pleural space: No pleural effusion. No pleural thickening. Lower neck, lymph nodes, and mediastinum: The imaged thyroid gland is normal. No lymphadenopathy in the supraclavicular, axillary, mediastinal, or hilar regions. Heart, pericardium, and thoracic vessels: The thoracic aorta and main pulmonary artery are normal in caliber. The cardiac chambers are stable in size. Coronary artery atherosclerotic calcifications are noted, although the study is not optimized for coronary assessment. No pericardial effusion or thickening. Bones and soft tissues: Status post left mastectomy. Abdomen degenerative changes. No CT evidence of destructive osseous lesion. Upper abdomen: See separate dictation of concurrently performed CT of abdomen which will be reported under a separate cover. Localizer images: No additional findings. DIVISION OF RADIOLOGY Provider, [facility] - 08/30/2024 * * *Final Report* * * DATE OF EXAM: Aug 30 2024 12:14PM [facility] 0539 - CT CHEST W IVCON / PROCEDURE REASON: multiple diagnoses * * * * Physician Interpretation * * * * EXAMINATION: CHEST CT WITH CONTRAST CLINICAL HISTORY: History of peritoneal carcinomatosis. Technique: Spiral CT acquisition of the chest from the thoracic inlet to the upper abdomen following IV contrast. MQ: CTCW_6 Contrast: 100 mL Omnipaque [address] Radiation dose: Integrated Dose-length product (DLP) for this visit = 527 mGy*cm CT Dose Reduction Employed: Automated exposure control(AEC) and iterative recon Comparison: chest CT dated 07/28/2024 RESULT: Limitations: None. Lines, tubes, and devices: Right chest port terminates at the superior cavoatrial junction. Lung parenchyma and airways: There has been no appreciable interval change in the appearance of the lungs. Specifically, there are stable reticulonodular changes with associated mild groundglass opacities in the right apex and subpleural right upper lobe. There is stable mild left apical pleural parenchymal scarring. There are stable less than 6 mm scattered pulmonary nodules within both lungs with insurance claims representative measurements of follicles. Stable 3 mm left fissural-based nodule (10, 54). Stable additional nodular opacities measuring up to 3 mm along the left major fissure (for example series 10, image 66). Stable right nodular fissural based opacity measuring 4 mm (10, 97). Minimal dependent atelectasis. No new or enlarging suspicious pulmonary nodule. Pleural space: No pleural effusion. No pleural thickening. Lower neck, lymph nodes, and mediastinum: The imaged thyroid gland is normal. No lymphadenopathy in the supraclavicular, axillary, mediastinal, or hilar regions. Heart, pericardium, and thoracic vessels: The thoracic aorta and main pulmonary artery are normal in caliber. The cardiac chambers are stable in size. Coronary artery atherosclerotic calcifications are noted, although the study is not optimized for coronary assessment. No pericardial effusion or thickening. Bones and soft tissues: Status post left mastectomy. Abdomen degenerative changes. No CT evidence of destructive osseous lesion. Upper abdomen: See separate dictation of concurrently performed CT of abdomen which will be reported under a separate cover. Localizer images: No additional findings. IMPRESSION IMPRESSION: 1. Since 07/28/2024, stable appearance of the chest. 2. Stable right upper lobe/right apical reticulonodular changes with associated groundglass opacities. 3. Stable subcentimeter pulmonary nodules. No new or enlarging pulmonary nodules. 4. No suspect intrathoracic lymphadenopathy. Security Ambassador: SUMMER Transcribe Date/Time: Aug 30 2024 12:28P Dictated by : TITUS RAMIREZ MD This examination was interpreted and the report reviewed and electronically signed by: TITUS RAMIREZ MD on Aug 30 2024 12:37PM EST [facility] Radiology Study observation (narrative) [facility] Comprehensive metabolic 2000 panelOrdered By: Jaent Vick on 08-30-2024 Albumin [Mass/Vol] 3.6 g/dL Low 3.9 - 4.9 g/dL [facility] ALP [Catalytic activity/Vol] 74 U/L 34 - 123 U/L [facility] ALT [Catalytic activity/Vol] 9 U/L 7 - 38 U/L [facility] Anion gap [Moles/Vol] 8 mmol/L 8 - 15 mmol/L [facility] AST [Catalytic activity/Vol] 20 U/L 13 - 35 U/L [facility] Bilirubin [Mass/Vol] 0.4 mg/dL 0.2 - 1 .3 mg/dL [facility] Calcium [Mass/Vol] 9.4 mg/dL 8.5 - 10. 2 mg/dL [facility] Chloride [Moles/Vol] 104 mmol/L 98 - 10 7 mmol/L [facility] CO2 [Moles/Vol] 23 mmol/L 22 - 30 mmol/L [facility] Creatinine [Mass/Vol] 0.78 mg/dL 0.58 - 0.96 mg/dL [facility] GFR/1.73 sq M.predicted among non-blacks MDRD (S/P/Bld) [Vol rate/Area] 79 mL/min/{1.73_m2} - PINF [facility] Comment on above: Estimated Glomerular Filtration Rate (eGFR) is calculated using the 2020 CKD-EPI creatinine equation. This equation utilizes serum creatinine, sex, and age as parameters. The creatinine assay has traceable calibration to isotope dilution-mass spectrometry. Refer to KDIGO guidelines for clinical interpretation. In patients with unstable renal function, e.g. those with acute kidney injury, the eGFR may not accurately reflect actual GFR. Glucose [Mass/Vol] 96 mg/dL 74 - 99 mg/dL [facility] Comment on above: The [place] Diabete s Association (ADA) provides guidance for cutoff values for fasting glucose and random glucose. The ADA defines fasting as no caloric intake for at least 8 hours. Fasting plasma glucose results between 100 to 125 mg/dL indicate increased risk for diabetes (prediabetes). Fasting plasma glucose results greater than or equal to 126 mg/dL meet the criteria for diagnosis of diabetes. In the absence of unequivocal hyperglycemia, results should be confirmed by repeat testing. In a patient with classic symptoms of hyperglycemia or hyperglycemic crisis, random plasma glucose results greater than or equal to 200 mg/dL meet the criteria for diagnosis of diabetes. Reference: Standards of Medical Care in Diabetes 2016, [place] Diabetes Association. Diabetes Care. 2016.39(Suppl 1). Interpretation and review of laboratory results Abnormal [facility] Potassium [Moles/Vol] 4.2 mmol/L 3.7 - 5.1 mmol/L [facility] Protein [Mass/Vol] 7 g/dL 6.3 - 8.0 g/dL [facility] Sodium [Moles/Vol] 135 mmol/L Low 136 - 144 mmol/L [facility] Urea nitrogen [Mass/Vol] 19 mg/dL 7 - 21 mg/dL [facility] BRIEF OP NOTon 08-25-2024 BRIEF OP NOT HNO ID: [id number] Author: CORINNE TEMPLETON APRN.REGIONAL WILDLIFE AGENT Service: Interventional Radiology Author Type: Nurse Practitioner Type: Brief Op Note Filed: 08/25/2024 08:55 Note Text: BRIEF OP NOTE LOG ID: [id number] Surgery/Procedure Date: 08/25/2024 Incision/Procedure Start Time: 8:44 AM Incision Close/Procedure End Time: 8:48 AM Surgeon(s)/Proceduralist(s ) and Loan Associate(s): Corinne Templeton APRN.CNP Procedure(s): paracentesis Anesthesia: local 5 ml lidocaine Findings: RLQ 1300 ml clear yellow fluid; Albumin ordered No Estimated Blood Loss: <3 ml Specimens: No Complications: none Pre-Op/Pre-Procedure Diagnosis: ascites Post-Op/Post-Procedure Diagnosis: same SIGNATURE: Corinne Templeton APRN.CNP PATIENT NAME: Savana Patel DATE: August 25, 2024 TIME: 8:54 AM PAGER/CONTACT #: [facility] ASCITES SURVEYon 08-26-19 US ASCITES SURVEY * * *Final Report* * * DATE OF EXAM: Aug 25 2024 9:04AM CÉSAR 1016 - US ASCITES SURVEY / PROCEDURE REASON: multiple diagnoses * * * * Physician Interpretation * * * * PROCEDURE: US ASCITES SURVEY INDICATION: Ascites TECHNIQUE: Multiple sonographic images of the abdomen/pelvis were obtained and stored in a permanent archive. IMPRESSION: Moderate sized ascites, most prominent in the right upper and lower quadrants Security Ambassador: [facility] Transcribe Date/Time: Aug 25 2024 9:12A Dictated by : ADAMARIS KAERS MD This examination was interpreted and the report reviewed and electronically signed by: ADAMARIS AKERS MD on Aug 25 2024 9:13AM EST [id number] [facility] US PARACENTESIS BIon 025 US PARACENTESIS BI * * *Final Report* * * DATE OF EXAM: Aug 25 2024 9:04AM [facility] 2039 - US PARACENTESIS BI / PROCEDURE REASON: multiple diagnoses * * * * Physician Interpretation * * * * EXAM TITLE: ULTRASOUND GUIDED PARACENTESIS CLINICAL HISTORY: Ascites PROCEDURE DATE: 08/25/2024 COMPARISON: Ascites survey dated 08/25/2024 Procedure Start Time and Sign In Time: 8:44 AM Procedure End Time and Sign Out Time: 8:48 AM TECHNIQUE: Informed consent was obtained from the patient. The patient was placed in a supine position and with ultrasound guidance an appropriate skin entry site in the right abdomen was identified, prepped, and anesthetized. With ultrasound guidance a 5-Albanian Yuey needle and sheath was passed into the peritoneal space and 1300 cc of clear yellow fluid was withdrawn. No specimens were sent for laboratory evaluation. There were no apparent complications. RESULT: Ultrasound revealed a generous amount of ascites containing no debris. IMPRESSION: Technically successful ultrasound guided paracentesis yielded 1300 cc of clear yellow fluid. Security Ambassador: [employer] Transcribe Date/Time: Aug 25 2024 9:18A Dictated by : CORINNE TEMPLETON CNP This examination was interpreted and the report reviewed and electronically signed by: CORINNE TEMPLETON CNP on Aug 25 2024 9:18AM EST [id number] [facility] Basic metabolic 2000 panelon 08-14-2024 Anion gap [Moles/Vol] 10 mmol/L Normal 8-15 [facility] Comment on above: Order Comment: Speci men Type: BLOOD SPECIMENOrdering Facility: [facility] Address: [address] [place] [address] Performed By: #### 2 4321-2 ####[facility] LABORATORYCLIA [id number] [place] [address] [place] Calcium [Mass/Vol] 8.6 mg/dL Normal 8.5-10.2 [facility] Comment on above: Order Comment: Speci men Type: BLOOD SPECIMENOrdering Facility: [facility] Address: [address] [place] [address] Performed By: #### 2 4321-2 ####[facility] LABORATORYCLIA [id number] [place] [address] [place] Chloride [Moles/Vol] 103 mmol/L Normal 98-107 [facility] Comment on above: Order Comment: Speci men Type: BLOOD SPECIMENOrdering Facility: [facility] Address: [address] [place] [address] Performed By: #### 2 4321-2 ####[facility] LABORATORYCLIA [id number] [place] [address] [place] CO2 [Moles/Vol] 21 mmol/L Low 22-30 [facility] Comment on above: Order Comment: Speci men Type: BLOOD SPECIMENOrdering Facility: [facility] Address: [address] [place] [address] Performed By: #### 2 4321-2 ####[facility] WAYNECLIA [id number] [address] Creatinine [Mass/Vol] 0.67 mg/dL Normal 0.58-0.96 [facility] Comment on above: Order Comment: Speci men Type: BLOOD SPECIMENOrdering Facility: [facility] Address: [address] [place] [address] Performed By: #### 2 4321-2 ####[facility] WAYNECLIA [id number] [address] Creatinine and Glomerular filtration rate.predicted panel (S/P/Bld) 91 mL/min/1.73m??? Normal >=60 [facility] Comment on above: Order Comment: Speci men Type: BLOOD SPECIMENOrdering Facility: [facility] Address: [address] [place] [address] Result Comment: Myranda mated Glomerular Filtration Rate (eGFR) is calculated using the 2020 CKD-EPI creatinine equation. This equation utilizes serum creatinine, sex, and age as parameters. The creatinine assay has traceable calibration to isotope dilution-mass spectrometry. Refer to KDIGO guidelines for clinical interpretation. In patients with unstable renal function, e.g. those with acute kidney injury, the eGFR may not accurately reflect actual GFR. Performed By: #### 2 4321-2 ####[facility] LABORATORYCLIA [id number] [address] Glucose [Mass/Vol] 88 mg/dL Normal 74-99 [facility] Comment on above: Order Comment: Speci treva Type: BLOOD SPECIMENOrdering Facility: [facility] Address: [address] [place] [address] Result Comment: The [place] Diabetes Association (ADA) provides guidance for cutoff values for fasting glucose and random glucose. The ADA defines fasting as no caloric intake for at least 8 hours. Fasting plasma glucose results between 100 to 125 mg/dL indicate increased risk for diabetes (prediabetes). Fasting plasma glucose results greater than or equal to 126 mg/dL meet the criteria for diagnosis of diabetes. In the absence of unequivocal hyperglycemia, results should be confirmed by repeat testing. In a patient with classic symptoms of hyperglycemia or hyperglycemic crisis, random plasma glucose results greater than or equal to 200 mg/dL meet the criteria for diagnosis of diabetes. Reference: Standards of Medical Care in Diabetes 2016, [place] Diabetes Association. Diabetes Care. 2016.39(Suppl 1). Performed By: #### 2 4321-2 ####[facility] LABORATORYCLIA [id number] [address] Potassium [Moles/Vol] 3.9 mmol/L Normal 3.7-5.1 [facility] Comment on above: Order Comment: Pete tilley Type: BLOOD SPECIMENOrdering Facility: [facility] Address: [address] [place] [address] Performed By: #### 2 4321-2 ####[facility] LABORATORYCLIA [id number] [address] Sodium [Moles/Vol] 134 mmol/L Low 136-144 [facility] Comment on above: Order Comment: Pete tilley Type: BLOOD SPECIMENOrdering Facility: [facility] Address: [address] [place] [address] Performed By: #### 2 4321-2 ####[facility] LABORATORYCLIA [id number] [address] Urea nitrogen [Mass/Vol] 12 mg/dL Normal 7-21 [facility] Comment on above: Order Comment: Pete tilley Type: BLOOD SPECIMENOrdering Facility: [facility] Address: [address] [place] [address] Performed By: #### 2 4321-2 ####[facility] LABORATORYCLIA [id number] [address] CBC panel Auto (Bld)on 08-14 Erythrocyte distribution width (RBC) [Ratio] 18.1 % High 11.5-15.0 [facility] Comment on above: Order Comment: Pete tilley Type: BLOOD SPECIMENOrdering Facility: [facility] Address: [address] [place] [address] Performed By: #### 5 8410-2 ####[facility] LABORATORYCLIA [id number] [address] Hematocrit (Bld) [Volume fraction] 28.0 % Low 36.0-46.0 [facility] Comment on above: Order Comment: Speci men Type: BLOOD SPECIMENOrdering Facility: [facility] Address: [address] [place] [address] Performed By: #### 5 8410-2 ####[facility] LABORATORYCLIA [id number] [address] [facility] Hemoglobin (Bld) [Mass/Vol] 8.4 g/dL Low 11.5-15.5 [facility] Comment on above: Order Comment: Speci men Type: BLOOD SPECIMENOrdering Facility: [facility] Address: [address] [place] [address] Performed By: #### 5 8410-2 ####[facility] LABORATORYCLIA [id number] [address] MCH (RBC) [Entitic mass] 25.1 pg Low 26.0-34.0 [facility] Comment on above: Order Comment: Speci men Type: BLOOD SPECIMENOrdering Facility: [facility] Address: [address] [place] [address] Performed By: #### 5 8410-2 ####[facility] LABORATORYCLIA [id number] [address] [place] MCHC (RBC) [Mass/Vol] 30.0 g/dL Low 30.5-36.0 [facility] Comment on above: Order Comment: Speci men Type: BLOOD SPECIMENOrdering Facility: [facility] Address: [address] [place] [address] Performed By: #### 5 8410-2 ####[facility] LABORATORYCLIA [id number] [address] MCV (RBC) [Entitic vol] 83.6 fL Normal 80.0-100.0 [facility] Comment on above: Order Comment: Speci men Type: BLOOD SPECIMENOrdering Facility: [facility] Address: [address] [place] [address] Performed By: #### 5 8410-2 ####[facility] LABORATORYCLIA [id number] [address] [place] Nucleated RBC (Bld) [#/Vol] 10*3/uL Normal <0.01 [facility] Comment on above: Order Comment: Speci men Type: BLOOD SPECIMENOrdering Facility: [facility] Address: [address] [place] [address] Performed By: #### 5 8410-2 ####[facility] LABORATORYCLIA [id number] [address] [place] Platelet mean volume (Bld) [Entitic vol] 9.8 fL Normal 9.0-12.7 [facility] Comment on above: Order Comment: Speci men Type: BLOOD SPECIMENOrdering Facility: [facility] Address: [address] [place] [address] Performed By: #### 5 8410-2 ####[facility] LABORATORYCLIA [id number] [address] [place] Platelets (Bld) [#/Vol] 128 10*3/uL Low 150-400 [facility] Comment on above: Order Comment: Speci men Type: BLOOD SPECIMENOrdering Facility: [facility] Address: [address] [place] [address] Performed By: #### 5 8410-2 ####[facility] LABORATORYCLIA [id number] [place] [address] [place] RBC (Bld) [#/Vol] 3.35 10*6/uL Low 3.90-5.20 [facility] Comment on above: Order Comment: Speci men Type: BLOOD SPECIMENOrdering Facility: [facility] Address: [address] [place] [address] Performed By: #### 5 8410-2 ####[facility] LABORATORYCLIA [id number] [place] [address] [facility] WBC (Bld) [#/Vol] 3.96 10*3/uL Normal 3.70-11.00 [facility] Comment on above: Order Comment: Pete tilley Type: BLOOD SPECIMENOrdering Facility: [facility] Address: [facility] [place] [address] Performed By: #### 5 8410-2 ####[facility] LABORATORYCLIA [id number] [place] [address] [facility] CNDSon 08-14-2024 CN HNO ID: [id number] Author: CRISTOFER GUEVARA MD Service: Hospital Medicine Author Type: Resident Type: Discharge Summary Filed: 08/14/2024 17:29 Note Text: -- Attestation signed by Cristofer Guevara MD at 08/14/2024 5:29 PM I saw and evaluated the patient. Discussed with the resident and agree with resident's findings and plan as documented in the resident's note. DC time greater than 30 min -- DISCHARGE SUMMARY PATIENT NAME: Savana Patel ADMISSION DATE: 08/13/2024 DISCHARGE DATE: 08/14/2024 ATTENDING PHYSICIAN: Cristofer Guevara MD Code Status: DNR-CCA, DNI Highest Readmission Risk Score: 14 The 30 day readmissions risk score is derived from an internally validated risk model which evaluates patient level characteristics, utilization history, medication orders and lab results up until the day of discharge. Patients with a score of 39 or above are considered highest risk for readmission. Specific patient level drivers will be listed at the bottom of the summary. CONSULTING TEAMS DURING HOSPITALIZATION: General Surgery Treatment Team: Attending Provider: Cristofer Guevara MD Primary Service: Kalia Han REASON FOR HOSPITALIZATION: Pneumonia DIAGNOSIS: Principal Problem (Resolved): Stercoral colitis (POA: Yes) Active Problems: * No active hospital problems. * Resolved Problems: At risk for delirium (POA: Yes) OPERATIONS DURING HOSPITALIZATION: None PROCEDURES DURING HOSPITALIZATION: CT scan HOSPITAL COURSE: Patient presented from home to [facility] on 08/13/2024, with a chief complaint of constipation. Patient reported being constipated since 08/10/2024 following her new chemotherapy regimen. She reported taking senna 4 times daily as needed without relief. Patient developed nausea, and had 1 episode of emesis, during which she called urbano doctor who recommended ED. Patient had no leukocytosis, was afebrile and hemodynamically stable. Imaging of CT ABD was remarkable for stercoral proctitis and ascites. Patient received 1L NS, and general surgery was consulted; no recommendations for surgical intervention. Following mineral oil enema, patient had large bowel movement. Treatment continued with Fleet enema, senna S twice daily. Following morning, the patient's nausea, vomiting was resolved and she has a healthy appetite. Bedside education provided regarding prevention of constipation with lifestyle changes, gkch-zrh-kaooyce medications and fiber supplementation. Transitions of Care Critical Issues: SPECIALIST FOLLOW-UP: Follow up with PCP regarding constipation, Heme/Onc BRAUN MEDICATION CHANGES: Senna-S increased to BID LABS AND PROCEDURES PENDING AT DISCHARGE: No pending results. PATIENT CONDITION AT DISCHARGE: Stable DISCHARGE DISPOSITION: Home with Self Care INFORMATION PROVIDED TO PATIENT: Written materials regarding lifestyle interventions for prevention of constipation, tewn-kwr-pxnmgen medication recommendations. WOUND/SURGICAL SITE CARE: None DIET: Resume pre-hospital diet Discussed increased water intake, fiber intake ACTIVITY: Resume pre-hospital activity ALLERGIES Allergen Reactions Penicillins Rash Sulfa (Sulfonamide * Unknown DISCHARGE MEDICATION: Medication List START taking these medications lidocaine-prilocaine 2.5-2.5 % cream Commonly known as: EMLA Apply to affected area two times a day as needed (rectal pain) for up to 7 days. CHANGE how you take these medications senna-docusate 8.6-50 mg per tablet Commonly known as: SENNA-S Take 1 tablet by mouth two times a day. What changed: when to take this reasons to take this CONTINUE taking these medications acetaminophen 500 mg tablet Commonly known as: TYLENOL Take 2 tablets by mouth every 8 hours. olaparib 150 mg tablet Commonly known as: LYNPARZA Take 2 tablets (300 mg) by mouth two times a day. omeprazole 40 mg capsule Commonly known as: PriLOSEC Take 1 capsule by mouth once daily. ondansetron 8 mg tablet Commonly known as: ZOFRAN Take 1 tablet by mouth every 8 hours as needed for nausea/vomiting. STOP taking these medications COLACE ORAL Where to Get Your Medications These medications were sent to [facility] [address] [place], [place] [id number] - [address] [place] [phone] [place], [place] [id number] lidocaine-prilocaine 2.5-2.5 % cream senna-docusate 8.6-50 mg per tablet FUTURE APPOINTMENTS: Future Appointments Date Time Provider Department Center 08/17/2024 9:00 AM [facility] [place] 08/30/2024 7:45 AM Wstr, Lab/[place] [facility] [place] 08/30/2024 8:00 AM Kasi Welch APRN.REGIONAL WILDLIFE AGENT [facility] [place] 08/31/2024 8:00 AM [facility] [place] 09/05/2024 8:40 AM Shay Cardoza MD [facility] (more content not included)... [facility] ED NOTEon 08-14-2024 ED NOTE HNO ID: [id number] Author: TAMMIE TINAJERO RN Service: ? Author Type: Registered Nurse Type: ED Notes Filed: 08/14/2024 13:13 Note Text: Patient given food tray [facility] ED NOTE HNO ID: [id number] Author: TAMMIE TINAJERO RN Service: ? Author Type: Registered Nurse Type: ED Notes Filed: 08/14/2024 11:48 Note Text: Patient able to get up and use the bedside commode without difficulty, has small bowel movement [facility] ED NOTE HNO ID: [id number] Author: TAMMIE TINAJERO RN Service: ? Author Type: Registered Nurse Type: ED Notes Filed: 08/14/2024 11:42 Note Text: Spoke with House Resident, Attending to come see patient and discharge. 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 Pt also requesting water and an update on if she is being Discharged. Rn informed [facility] ED NOTE HNO ID: [id number] Author: ALCIDES RAMIREZ Tech Service: Emergency Medicine Author Type: Automation Sales Manager Type: ED Notes Filed: 08/14/2024 09:31 Note Text: [facility] ED NOTE HNO ID: [id number] Author: TAMMIE TINAJERO RN Service: ? Author Type: Registered Nurse Type: ED Notes Filed: 08/14/2024 09:30 Note Text: Patient given food [facility] ED NOTE HNO ID: [id number] Author: TAMMIE TINAJERO RN Service: ? Author Type: Registered Nurse Type: ED Notes Filed: 08/14/2024 08:28 Note Text: Admitting MD at bedside [facility] ED NOTE HNO ID: [id number] Author: TAMMIE TINAJERO RN Service: ? Author Type: Registered Nurse Type: ED Notes Filed: 08/14/2024 07:30 Note Text: Report received from previous RN. Pt on security monitor, pulse ox AND NIBP. [facility] ED NOTE HNO ID: [id number] Author: RAJ HUTCHISON RN Service: ? Author Type: Registered Nurse Type: ED Notes Filed: 08/14/2024 06:12 Note Text: pt had no significant amount of stool output after the enema [facility] ED NOTE HNO ID: [id number] Author: RAJ HUTCHISON, SHEILA Service: ? Author Type: Registered Nurse Type: ED Notes Filed: 08/14/2024 04:50 Note Text: Administration of second enema delayed due to patient feeling nauseous, she requested to wait a little while before the second. [facility] ED NOTE HNO ID: [id number] Author: RAJ HUTCHISON RN Service: ? Author Type: Registered Nurse Type: ED Notes Filed: 08/14/2024 03:16 Note Text: Pt given enema, assisted to bedside commode. Pt had medium sized formed bowel movement. Pt assisted back into bed, states she feels some relief [facility] ED NOTE HNO ID: [id number] Author: MARK OAKES RN Service: ? Author Type: Registered Nurse Type: ED Notes Filed: 08/14/2024 02:04 Note Text: Bed: 17-ED Expected date: Expected time: Means of arrival: Comments: [place] [facility] HISTORY PHYSICALon HISTORY PHYSICAL HNO ID: [id number] Author: ANUP RAE MD Service: Hospital Medicine Author Type: Resident Type: H&P Filed: 08/14/2024 08:35 Note Text: -- Attestation signed by Anup Rae MD at 08/14/2024 8:35 AM Patient was staffed with me overnight but not seen. Please see follow-up documentation for attending assuming care on following day of service. Anup Rae MD -- HMS HANDP PATIENT NAME: Savana Patel DATE OF ADMISSION: August 14, 2024 ADMITTED FOR: Stercoral colitis Subjective HPI Ms. 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 Patient reported being constipated since 08/10/2024 following her new chemotherapy regimen. They reported taking senna 4 times daily as needed without relief. Patient developed nausea, and had 1 episode of brown vomiting at 9 AM, during which they called their doctor who recommended ED. Denied chest pain, shortness of breath, diaphoresis, nausea, vomiting, palpitations, dizziness, lightheadedness, syncope, headache, heartburn, fever, chills, abdominal pain, dark stool, blood per rectum, anxiety, or changes in bowel/urinary habits. ED course: On arrival to the emergency department patient is noted to be afebrile, hemodynamically stable and in no acute distress saturating well on RA. Patient had no leukocytosis, with chronic anemia (8.6). Imaging of CT ABD was remarkable for stercoral proctitis and ascites. RUQ US with indeterminate findings of cholecystitis. Patient received 1L NS, and general surgery was consulted, who recommended aggressive bowel regimen. Review of Systems Constitutional: Positive for unexpected weight change (Weight loss). Negative for appetite change, chills, fatigue and fever. Respiratory: Negative for cough and shortness of breath. Cardiovascular: Negative for chest pain, palpitations and leg swelling. Gastrointestinal: Positive for constipation, nausea and vomiting. Negative for blood in stool, diarrhea and rectal pain. Endocrine: Negative for polydipsia and polyuria. Genitourinary: Negative for difficulty urinating and urgency. Musculoskeletal: Negative for back pain. PAST MEDICAL HISTORY Diagnosis Date Actinic keratosis 04/12/2007 Advance directive discussed with patient 08/24/2022 Discussed 08/2022: Up to date DEANDRE positive 07/25/2016 Rheum felt just Arthritis. 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 [place] ANGIOMA///NEVUS, NON-NEOPLASTIC 02/18/2007 Constipation 04/04/2015 Dysmetabolic syndrome X 12/28/2007 Essential hypertension 04/04/2015 GERD without esophagitis 07/24/2020 Hemorrhage of gastrointestinal tract, unspecified History of left mastectomy 05/05/2018 Impaired fasting glucose 11/21/2007 Internal hemorrhoids without mention of complication Iron deficiency anemia due to chronic blood loss 09/02/2023 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 Leg cramps 01/08/2020 Living will on file 07/31/2021 DPA: Javier ( ) Malignant neoplasm of both ovaries (HCC) 10/26/2018 Mixed hyperlipidemia 04/04/2015 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 multiple joints 07/27/2016 Osteopenia 12/28/2012 Other acne 05/29/2008 Other seborrheic keratosis 02/18/2007 Panic attacks 07/18/2012 Primary insomnia 01/29/2022 S/P colectomy 08/06/2023 SOLAR LENGINES///DYSCHROMIA OTHER 02/18/2007 Thrombocytopenia (HCC) 01/29/2022 chronic Trigger ring finger of left hand 07/24/2020 Trigger ring finger of right hand 07/24/2020 PAST SURGICAL HISTORY Procedure Laterality Date BX BREAST PERC VACUUM/ROTN 10/26/2007 LEFT COLONOSCOPY FLX DX W/COLLJ SPEC WHEN PFRMD 07/20/2005 COLONOSCOPY FLX DX W/COLLJ SPEC WHEN PFRMD 05/01/2016 normal - 10 year follow up LAPAROSCOPIC HEMICOLECTOMY Right 06/2023 LIG/TRNSXJ FLP TUBE ABDL/VAG APPR UNI/BI Tubal ligation MAST RAD W/PECTORAL MUSCLES AXILLARY LYMPH NODES 11/2007 Left PAST SURGICAL HISTORY OF BACK SURGERY PAST SURGICAL HISTORY OF 10/06/2018 Exploratory l (more content not included)... Normal [facility] ALLIED HEALTHon 08-13-2024 ALLIED HEALTH HNO ID: [id number] Author: EDIL CASTELLON Tech Service: Radiology Author Type: Technologist Type: Allied Health Filed: 08/13/2024 18:37 Note Text: Radiology Service Progress Note DATE OF SERVICE: August 13, 2024 TIME: 6:37 PM PATIENT IDENTITY VERIFICATION COMPLETED USING TWO (2) STANDARD IDENTIFIERS: Name and Date of confirmed by patient verbally and Name and Date of confirmed by identification band. FALL SCREENING: Has the patient had 2 falls in the last year or 1 fall with injury or currently using an Ambulatory Assistive Device (Walker, Cane, Wheelchair, Crutches, etc.)? Emergency Room Patient: Screened in ED PATIENT GENDER DATA: Assigned female at . status: : No status: NO. PATIENT RELEVANT IMPLANT DATA REVIEWED: Yes PATIENT PRESENTS WITH AN IMPLANTABLE OR ATTACHED FRETTED STRING INSTRUMENT REPAIRER: No ALLERGIES: Reviewed and unchanged CONTRAST ALLERGY: NO. EXAM: CT -CONTRAST INDUCED NEPHROPATHY RISK FACTORS: Patient age > 60 years CREATININE: Creatinine Date Value Ref Range Status 08/13/2024 0.63 0.58 - 0.96 mg/dL Final 08/01/2024 0.78 0.58 - 0.96 mg/dL Final 07/07/2024 0.86 0.58 - 0.96 mg/dL Final Estimated Glomerular Filtration Rate Date Value Ref Range Status 08/13/2024 93 >=60 mL/min/1.73m? Final Comment: Estimated Glomerular Filtration Rate (eGFR) is calculated using the 2020 CKD-EPI creatinine equation. This equation utilizes serum creatinine, sex, and age as parameters. The creatinine assay has traceable calibration to isotope dilution-mass spectrometry. Refer to KDIGO guidelines for clinical interpretation. In patients with unstable renal function, e.g. those with acute kidney injury, the eGFR may not accurately reflect actual GFR. eGFR- Date Value Ref Range Status 07/07/2021 Test reordered by [facility]. Corrected Comment: SEE LOLIS [id number] Account Credited 07/07/2021 >60 Final P.O.C.T. RESULTS: POC done: Yes, See Lab Tab August 13, 2024 TREATMENT: N/A and No Hydration needed. PERIPHERAL IV DATA: Inpatient - refer to [facility] documentation RADIOLOGY DEPARTMENT: CT; Exam(s) Completed: Abdomen/Pelvis SIGNATURE: Pradip Gamble PATIENT NAME: Savana Patel DATE: August 13, 2024 TIME: 6:37 PM Normal [facility] CBC W Auto Differential pane l (Bld)on 08-13-2024 Basophils (Bld) [#/Vol] 10*3/uL Normal <0.11 [facility] Comment on above: Order Comment: Speci men Type: BLOOD SPECIMENOrdering Facility: [facility] Address: [address] [place] [address] Performed By: #### 5 7021-8 ####[facility] LABORATORYCLIA [id number] [place] [address] [place] Basophils/100 WBC (Bld) 0.2 % Normal [facility] Comment on above: Order Comment: Speci men Type: BLOOD SPECIMENOrdering Facility: [facility] Address: [address] [place] [address] Performed By: #### 5 7021-8 ####[facility] LABORATORYCLIA [id number] [place] [address] [place] Differential cell count method Nom (Bld) Auto Normal [facility] Comment on above: Order Comment: Speci men Type: BLOOD SPECIMENOrdering Facility: [facility] Address: [address] [place] [address] Performed By: #### 5 7021-8 ####[facility] LABORATORYCLIA [id number] [place] [address] [place] Eosinophils (Bld) [#/Vol] 10*3/uL Normal <0.46 [facility] Comment on above: Order Comment: Speci men Type: BLOOD SPECIMENOrdering Facility: [facility] Address: [address] [place] [address] Performed By: #### 5 7021-8 ####[facility] LABORATORYCLIA [id number] [address] [place] Eosinophils/100 WBC (Bld) 0.0 % Normal [facility] Comment on above: Order Comment: Speci men Type: BLOOD SPECIMENOrdering Facility: [facility] Address: [address] [place] [address] Performed By: #### 5 7021-8 ####[facility] LABORATORYCLIA [id number] [address] [place] Erythrocyte distribution width (RBC) [Ratio] 17.8 % High 11.5-15.0 [facility] Comment on above: Order Comment: Speci men Type: BLOOD SPECIMENOrdering Facility: [facility] Address: [address] [place] [address] Performed By: #### 5 7021-8 ####[facility] LABORATORYCLIA [id number] [address] [place] Hematocrit (Bld) [Volume fraction] 28.2 % Low 36.0-46.0 [facility] Comment on above: Order Comment: Speci men Type: BLOOD SPECIMENOrdering Facility: [facility] Address: [address] [place] [address] Performed By: #### 5 7021-8 ####[facility] LABORATORYCLIA [id number] [address] [place] Hemoglobin (Bld) [Mass/Vol] 8.6 g/dL Low 11.5-15.5 [facility] Comment on above: Order Comment: Speci men Type: BLOOD SPECIMENOrdering Facility: [facility] Address: [address] [place] [address] Performed By: #### 5 7021-8 ####[facility] LABORATORYCLIA [id number] [address] [place] Immature granulocytes (Bld) [#/Vol] 10*3/uL Normal <0.10 [facility] Comment on above: Order Comment: Speci men Type: BLOOD SPECIMENOrdering Facility: [facility] Address: [address] [place] [address] Performed By: #### 5 7021-8 ####[facility] LABORATORYCLIA [id number] [address] Immature granulocytes/100 WBC (Bld) 0.4 % Normal [facility] Comment on above: Order Comment: Speci men Type: BLOOD SPECIMENOrdering Facility: [facility] Address: [address] [place] [address] Performed By: #### 5 7021-8 ####[facility] LABORATORYCLIA [id number] [address] [place] Lymphocytes (Bld) [#/Vol] 0.46 10*3/uL Low 1.00-4.00 [facility] Comment on above: Order Comment: Speci men Type: BLOOD SPECIMENOrdering Facility: [facility] Address: [address] [place] [address] Performed By: #### 5 7021-8 ####[facility] LABORATORYCLIA [id number] [address] Lymphocytes/100 WBC (Bld) 8.9 % Normal [facility] Comment on above: Order Comment: Speci men Type: BLOOD SPECIMENOrdering Facility: [facility] Address: [address] [place] [address] Performed By: #### 5 7021-8 ####[facility] LABORATORYCLIA [id number] [address] [place] MCH (RBC) [Entitic mass] 25.3 pg Low 26.0-34.0 [facility] Comment on above: Order Comment: Speci men Type: BLOOD SPECIMENOrdering Facility: [facility] Address: [address] [place] [address] Performed By: #### 5 7021-8 ####[facility] LABORATORYCLIA [id number] [address] OF [facility] MCHC (RBC) [Mass/Vol] 30.5 g/dL Normal 30.5-36.0 [facility] Comment on above: Order Comment: Speci men Type: BLOOD SPECIMENOrdering Facility: [facility] Address: [address] [place] [address] Performed By: #### 5 7021-8 ####[facility] LABORATORYCLIA [id number] [address] [place] MCV (RBC) [Entitic vol] 82.9 fL Normal 80.0-100.0 [facility] Comment on above: Order Comment: Speci men Type: BLOOD SPECIMENOrdering Facility: [facility] Address: [address] [place] [address] Performed By: #### 5 7021-8 ####[facility] LABORATORYCLIA [id number] [address] [place] Monocytes (Bld) [#/Vol] 0.07 10*3/uL Normal <0.87 [facility] Comment on above: Order Comment: Speci men Type: BLOOD SPECIMENOrdering Facility: [facility] Address: [address] [place] [address] Performed By: #### 5 7021-8 ####[facility] LABORATORYCLIA [id number] [address] [place] Monocytes/100 WBC (Bld) 1.4 % Normal [facility] Comment on above: Order Comment: Speci men Type: BLOOD SPECIMENOrdering Facility: [facility] Address: [address] [place] [address] Performed By: #### 5 7021-8 ####[facility] LABORATORYCLIA [id number] [address] [place] Neutrophils (Bld) [#/Vol] 4.62 10*3/uL Normal 1.45-7.50 [facility] Comment on above: Order Comment: Speci men Type: BLOOD SPECIMENOrdering Facility: [facility] Address: [address] [place] [address] Performed By: #### 5 7021-8 ####[facility] LABORATORYCLIA [id number] [address] [place] Neutrophils/100 WBC (Bld) 89.1 % Normal [facility] Comment on above: Order Comment: Speci men Type: BLOOD SPECIMENOrdering Facility: [facility] Address: [address] [place] [address] Performed By: #### 5 7021-8 ####[facility]ORATORYCLIA [id number] [address] [place] Nucleated RBC (Bld) [#/Vol] 10*3/uL Normal <0.01 [facility] Comment on above: Order Comment: Speci men Type: BLOOD SPECIMENOrdering Facility: [facility] Address: [address] [place] [address] Performed By: #### 5 7021-8 ####[facility] LABORATORYCLIA [id number] [address] [place] Nucleated RBC/100 WBC (Bld) [Ratio] 0.0 /100 WBC Normal [facility] Comment on above: Order Comment: Speci men Type: BLOOD SPECIMENOrdering Facility: [facility] Address: [address] [place] [address] Performed By: #### 5 7021-8 ####[facility] LABORATORYCLIA [id number] [address] [place] Platelet mean volume (Bld) [Entitic vol] 10.2 fL Normal 9.0-12.7 [facility] Comment on above: Order Comment: Speci men Type: BLOOD SPECIMENOrdering Facility: [facility] Address: [address] [place] [address] Performed By: #### 5 7021-8 ####[facility] LABORATORYCLIA [id number] [address] [place] Platelets (Bld) [#/Vol] 142 10*3/uL Low 150-400 [facility] Comment on above: Order Comment: Speci men Type: BLOOD SPECIMENOrdering Facility: [facility] Address: [address] [place] [address] Performed By: #### 5 7021-8 ####[facility]ORATORYCLIA [id number] [address] OF [facility] RBC (Bld) [#/Vol] 3.40 10*6/uL Low 3.90-5.20 [facility] Comment on above: Order Comment: Pete tilley Type: BLOOD SPECIMENOrdering Facility: [facility] Address: [address] [place] [address] Performed By: #### 5 7021-8 ####[facility] LABORATORYCLIA [id number] [address] WBC (Bld) [#/Vol] 5.18 10*3/uL Normal 3.70-11.00 [facility] Comment on above: Order Comment: Pete tilley Type: BLOOD SPECIMENOrdering Facility: [facility] Address: [address] [place] [address] Performed By: #### 5 7021-8 ####[facility] LABORATORYCLIA [id number] [address] CONSULTon 08-13-2024 CONSULT HNO ID: [id number] Author: ALBERTO ASHLEY MD Service: General Surgery Author Type: Resident Type: Consults Filed: 08/29/2024 00:40 Note Text: -- Attestation signed by Alberto Ashley MD at 08/29/2024 12:40 AM Attending Note I evaluated the patient and personally participated in the branu components on 08/14/2024 I agree with the resident's findings and plan as documented and have discussed the case and management of the patient's care with the resident. 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 She is currently undergoing chemotherapy (topotecan with bevacizumab, last session 08/10). She is followed by Dr. Js Cruz, Hematology/Oncology. She presents for constipation that started since her last chemotherapy session on 08/10. She reports decreased stool output. Initially she had passage of a few small, hard balls of stool, but after administering an enema earlier today, she has had output of yellowish liquid stool. After administering the enema, she also had an episode of emesis that was dark brown in appearance, but she has otherwise not had nausea or vomiting. She has been tolerating PO intake without issue. She denies abdominal pain at rest or post-prandial pain. She denies fevers, chills, sweats, SOB, chest pain/pressure, palpitations. She had a colonoscopy two weeks ago with a successful prep that was normal. FUNCTIONAL STATUS: Independent PAST MEDICAL HISTORY Diagnosis Date Actinic keratosis 04/12/2007 Advance directive discussed with patient 08/24/2022 Discussed 08/2022: Up to date DEANDRE positive 07/25/2016 Rheum felt just Arthritis. 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 B[place] ANGIOMA///NEVUS, NON-NEOPLASTIC 02/18/2007 Constipation 04/04/2015 Dysmetabolic syndrome X 12/28/2007 Essential hypertension 04/04/2015 GERD without esophagitis 07/24/2020 Hemorrhage of gastrointestinal tract, unspecified History of left mastectomy 05/05/2018 Impaired fasting glucose 11/21/2007 Internal hemorrhoids without mention of complication Iron deficiency anemia due to chronic blood loss 09/02/2023 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 Leg cramps 01/08/2020 Living will on file 07/31/2021 DPA: Javier ( ) Malignant neoplasm of both ovaries (HCC) 10/26/2018 Mixed hyperlipidemia 04/04/2015 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 multiple joints 07/27/2016 Osteopenia 12/28/2012 Other acne 05/29/2008 Other seborrheic keratosis 02/18/2007 Panic attacks 07/18/2012 Primary insomnia 01/29/2022 S/P colectomy 08/06/2023 SOLAR LENGINES///DYSCHROMIA OTHER 02/18/2007 Thrombocytopenia (HCC) 01/29/2022 chronic Trigger ring finger of left hand 07/24/2020 Trigger ring finger of right hand 07/24/2020 PAST SURGICAL HISTORY Procedure Laterality Date BX BREAST PERC VACUUM/ROTN 10/26/2007 LEFT COLONOSCOPY FLX DX W/COLLJ SPEC WHEN PFRMD 07/20/2005 COLONOSCOPY FLX DX W/COLLJ SPEC WHEN PFRMD 05/01/2016 normal - 10 year follow up LAPAROSCOPIC HEMICOLECTOMY Right 06/2023 LIG/TRNSXJ FLP TUBE ABDL/VAG APPR UNI/BI Tubal ligation MAST RAD W/PECTORAL MUSCLES AXILLARY LYMPH NODES 11/2007 Left PAST SURGICAL HISTORY OF BACK SURGERY PAST SURGICAL HISTORY OF 10/06/2018 Exploratory laparotomy, total abdominal hysterectomy, bilateral salpingooophorectomy, and bladder and posterior culdesac peritoneum resected en bloc, omentectomy PLCMT LOCALZTN CLIP,PERC,DURING BREAST BX 10/26/2007 LEFT S PORT-A-CATH [id number] 11/09/2018 TONSILLECTOMY PRIMARY/SECONDARY Tonsillectomy FAMILY HISTORY Problem Relation Age of Onset Ovarian cancer Mother dx 50s Arthritis Father No Known Problems Maternal Grandmother No Known Problems Maternal Grandfather No Known Problems Paternal Grandmother No Known Problems Paternal Grandfather Cancer Maternal Aunt 7 aunts with breast or ovarian cancer. details unknown Social History Tobacco Use Smoking status: Never Passive exposure: Never Smokeless tobacco: Never Va (more content not included)... Normal [facility] CT ABD/PEL W IVCONon 025 CT ABD/PEL W IVCON * * *Final Report* * * DATE OF EXAM: Aug 13 2024 6:40PM [facility] 0530 - CT ABD/PEL W IVCON / PROCEDURE REASON: Bowel obstruction suspected * * * * Physician Interpretation * * * * EXAMINATION: CT ABDOMEN AND PELVIS WITH IV CONTRAST CLINICAL HISTORY: Vomiting; history of breast cancer with metastases; abdominal pain TECHNIQUE: CT of the abdomen and pelvis was performed using standard technique, scanning from just above the dome of the diaphragm to the symphysis pubis. MQ: CTAP_3 Contrast: IV: 100 ml of Omnipaque 350 CT Radiation dose: Integrated Dose-length product (DLP) for this visit = 298 mGy*cm. CT Dose Reduction Employed: Automated exposure control(AEC) and iterative recon COMPARISON: 07/28/2024. RESULT: Liver: No mass. Biliary: No bile duct dilation. Pericholecystic fluid an/or concentric gallbladder wall thickening.. Spleen: No mass. No splenomegaly. Pancreas: No mass or duct dilation. Adrenals: Thickening, likely hyperplasia. No nodules. Kidneys: Subcentimeter lesions that are too small to characterize but likely benign. GI tract: No dilation or wall thickening. Prominent rectal stool ball with rectal wall thickening. Postsurgical changes proximal ascending colon. Metallic clips in the anatomic pelvis. Lymph nodes: No abdominal or pelvic lymphadenopathy. Mesentery/Peritoneum: Similar small to moderate volume intraperitoneal ascites.. Retroperitoneum: No mass. Structure described as a left retroperitoneal mass on most recent prior study is not confidently appreciated on the current examination and may have reflected a collapsed small bowel loop on the prior examination. Vasculature: - Abdominal aorta and iliac arteries: Atherosclerotic calcifications without aneurysm. - Celiac and SMA: Patent without stenosis. - Portal venous system (SMV, splenic vein, portal vein and branches): Patent. - Hepatic veins: Patent. Pelvis: No mass, ascites or fluid collection. Unremarkable CT appearance of the urinary bladder. Bones/Soft Tissues: Lumbar spine degenerative changes. Lower thorax: Unremarkable. Localizer images: No additional findings. IMPRESSION: 1. Stercoral proctitis. 2. Similar small to moderate volume intraperitoneal ascites. 3. Pericholecystic fluid and/or gallbladder wall thickening. 4. Structure described as left retroperitoneal mass on most recent prior study is not confidently appreciated and may have reflected a collapsed small bowel loop on the prior examination. Security Ambassador: SUMMER Transcribe Date/Time: Aug 13 2024 8:25P Dictated by : CHIO MORALES MD This examination was interpreted and the report reviewed and electronically signed by: CHIO MORALES MD on Aug 13 2024 8:34PM EST [id number] Normal [facility] Comprehensive metabolic 2000 panelon 08-13-2024 Albumin [Mass/Vol] 3.3 g/dL Low 3.9-4.9 [facility] Comment on above: Order Comment: Speci men Type: BLOOD SPECIMENOrdering Facility: [facility] Address: [address] [place] [address] Performed By: #### 3 040-3, 23060-9 ####[facility] LABORATORYCLIA [id number] [address] [place] ALP [Catalytic activity/Vol] 83 U/L Normal 34-123 [facility] Comment on above: Order Comment: Speci men Type: BLOOD SPECIMENOrdering Facility: [facility] Address: [address] [place] [address] Performed By: #### 3 040-3, 27788-7 ####[facility] LABORATORYCLIA [id number] [place] [address] [place] ALT With P-5'-P [Catalytic activity/Vol] 17 U/L Normal 7-38 [facility] Comment on above: Order Comment: Speci men Type: BLOOD SPECIMENOrdering Facility: [facility] Address: [address] [place] [address] Performed By: #### 3 040-3, 78039-0 ####[facility] LABORATORYCLIA [id number] [address] [place] Anion gap [Moles/Vol] 13 mmol/L Normal 8-15 [facility] Comment on above: Order Comment: Speci men Type: BLOOD SPECIMENOrdering Facility: [facility] Address: [address] [place] [address] Performed By: #### 3 -3, ####[facility] LABORATORYCLIA [id number] [place] [address] [place] AST With P-5'-P [Catalytic activity/Vol] 29 U/L Normal 13-35 [facility] Comment on above: Order Comment: Speci men Type: BLOOD SPECIMENOrdering Facility: [facility] Address: [address] [place] [address] Performed By: #### 3 , ####[facility] LABORATORYCLIA [id number] [place] [address] [place] Bilirubin [Mass/Vol] 0.9 mg/dL Normal 0.2-1.3 [facility] Comment on above: Order Comment: Speci men Type: BLOOD SPECIMENOrdering Facility: [facility] Address: [address] [place] [address] Performed By: #### 3 -, ####[facility] LABORATORYCLIA [id number] [place] [address] [place] Calcium [Mass/Vol] 8.8 mg/dL Normal 8.5-10.2 [facility] Comment on above: Order Comment: Speci men Type: BLOOD SPECIMENOrdering Facility: [facility] Address: [address] [place] [address] Performed By: #### 3 -3, ####[facility] LABORATORYCLIA [id number] [place] [address] [place] Chloride [Moles/Vol] 101 mmol/L Normal 98-107 [facility] Comment on above: Order Comment: Speci men Type: BLOOD SPECIMENOrdering Facility: [facility] Address: [address] [place] [address] Performed By: #### 3 -3, 34687-3 ####[facility] LABORATORYCLIA [id number] [place] [address] [place] [facility] CO2 [Moles/Vol] 22 mmol/L Normal 22-30 [facility] Comment on above: Order Comment: Speci men Type: BLOOD SPECIMENOrdering Facility: [facility] Address: [address] [place] [address] Performed By: #### 3 040-3, 14826-7 ####[facility] LABORATORYCLIA [id number] [address] STATES OF [facility] Creatinine [Mass/Vol] 0.63 mg/dL Normal 0.58-0.96 [facility] Comment on above: Order Comment: Speci men Type: BLOOD SPECIMENOrdering Facility: [facility] Address: [address] [place] [address] Performed By: #### 3 040-3, 04629-9 ####[facility] HOSPITALIA [id number] [address] Creatinine and Glomerular filtration rate.predicted panel (S/P/Bld) 93 mL/min/1.73m??? Normal >=60 [facility] Comment on above: Order Comment: Speci men Type: BLOOD SPECIMENOrdering Facility: [facility] Address: [address] [place] [address] Result Comment: Myranda mated Glomerular Filtration Rate (eGFR) is calculated using the 2020 CKD-EPI creatinine equation. This equation utilizes serum creatinine, sex, and age as parameters. The creatinine assay has traceable calibration to isotope dilution-mass spectrometry. Refer to KDIGO guidelines for clinical interpretation. In patients with unstable renal function, e.g. those with acute kidney injury, the eGFR may not accurately reflect actual GFR. Performed By: #### 3 040-3, 18927-3 ####[facility] LABORATORYCLIA [id number] [address] STATES OF [facility] Glucose [Mass/Vol] 109 mg/dL High 74-99 [facility] Comment on above: Order Comment: Speci men Type: BLOOD SPECIMENOrdering Facility: [facility] Address: [address] [place] [address] Result Comment: The [place] [employer] Association (ADA) provides guidance for cutoff values for fasting glucose and random glucose. The ADA defines fasting as no caloric intake for at least 8 hours. Fasting plasma glucose results between 100 to 125 mg/dL indicate increased risk for diabetes (prediabetes). Fasting plasma glucose results greater than or equal to 126 mg/dL meet the criteria for diagnosis of diabetes. In the absence of unequivocal hyperglycemia, results should be confirmed by repeat testing. In a patient with classic symptoms of hyperglycemia or hyperglycemic crisis, random plasma glucose results greater than or equal to 200 mg/dL meet the criteria for diagnosis of diabetes. Reference: Standards of Medical Care in Diabetes 2016, [place] [employer]. Diabetes Care. 2016.39(Suppl 1). Performed By: #### 3 -, ####[facility] LABORATORYCLIA [id number] [place] [address] [place] Potassium [Moles/Vol] 4.1 mmol/L Normal 3.7-5.1 [facility] Comment on above: Order Comment: Speci men Type: BLOOD SPECIMENOrdering Facility: [facility] Address: [address] [place] [address] Performed By: #### 3 , ####[facility] LABORATORYCLIA [id number] [place] [address] [place] Protein [Mass/Vol] 6.8 g/dL Normal 6.3-8.0 [facility] Comment on above: Order Comment: Speci men Type: BLOOD SPECIMENOrdering Facility: [facility] Address: [address] [place] [address] Performed By: #### 3 , 30165-7 ####[facility] LABORATORYCLIA [id number] [place] [address] [place] Sodium [Moles/Vol] 136 mmol/L Normal 136-144 [facility] Comment on above: Order Comment: Speci men Type: BLOOD SPECIMENOrdering Facility: [facility] Address: [address] [place] [address] Performed By: #### 3 , 10089-8 ####[facility] LABORATORYCLIA [id number] [place] [address] [place] [facility] Urea nitrogen [Mass/Vol] 17 mg/dL Normal 7- [facility] Comment on above: Order Comment: Speci men Type: BLOOD SPECIMENOrdering Facility: [facility] Address: [address] [place] [address] [place] [address] Performed By: #### 3 040-3, 78945-3 ####[facility] LABORATORYCLIA [id number] [place] [id number] [facility] ED NOTEon 08-13-2024 ED NOTE HNO ID: [id number] Author: RAJ HUTCHISON RN Service: ? Author Type: Registered Nurse Type: ED Notes Filed: 08/13/2024 21:16 Note Text: US notified [facility] ED NOTE HNO ID: [id number] Author: RAJ HUTCHISON RN Service: ? Author Type: Registered Nurse Type: ED Notes Filed: 08/13/2024 20:27 Note Text: Pt's brief, bed pad, and gown changed [facility] ED NOTE HNO ID: [id number] Author: RAJ HUTCHISON RN Service: ? Author Type: Registered Nurse Type: ED Notes Filed: 08/13/2024 18:27 Note Text: Pt having stool incontinence. Clean brief put on and bed pad changed. [facility] ED NOTE HNO ID: [id number] Author: RAJ HUTCHISON RN Service: ? Author Type: Registered Nurse Type: ED Notes Filed: 08/13/2024 18:13 Note Text: Clean brief placed on patient [facility] ED NOTE HNO ID: [id number] Author: SALBADOR LEE Tech Service: Emergency Medicine Author Type: Automation Sales Manager Type: ED Notes Filed: 08/13/2024 17:20 Note Text: Pt cleaned/changed, incontinent of stool [facility] ED NOTE HNO ID: [id number] Author: RAJ HUTCHISON RN Service: ? Author Type: Registered Nurse Type: ED Notes Filed: 08/13/2024 16:23 Note Text: CT notified [facility] ED PROV NOTEon 08-13-2024 ED PROV NOTE HNO ID: [id number] Author: HARITHA ROMERO MD Service: Emergency Medicine Author Type: Physician Type: ED Provider Notes Filed: 08/15/2024 22:29 Note Text: ED Provider Note Patient Name: Savana Patel : 1950 SERVICE DATE: 08/13/24 History Patient presents with: Hematemesis: Patient arrives ambulatory to triage with complaint of vomiting dark vomit. Patient has history or breast cancer with mets. +abdominal pain. Per patient last bowel movement was on Wednesday. Last chemo was 74-year-old female with past medical history of metastatic breast cancer (with spread to ovaries, colon s/p partial colectomy) presenting for concerns of nausea, vomiting. Had an isolated episode of nausea, vomiting this morning at 9 AM. States the emesis was brown in color. Called her doctor, who recommended emergency department evaluation. Has additionally been constipated since 08/10/2024. States she gets constipated after her chemotherapy, which was completed on 08/10/2024. Has tried senna S, enema witho associated diffuse abdominal pain which she relates to gas pain. Denies melena, hematochezia. Receives chemo through a port in the right chest, started gemcitabine 2 weeks ago. Denies fever, chills. Denies urinary symptoms. Does a history of cecal volvulus, frequent paracentesis for malignant ascites (last procedure 08/08/2024). Recent history of EGD and colonoscopy as well (last history 07/31/2024). PAST MEDICAL HISTORY Diagnosis Date Actinic keratosis 04/12/2007 Advance directive discussed with patient 08/24/2022 Discussed 08/2022: Up to date DEANDRE positive 07/25/2016 Rheum felt just Arthritis. 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 BOSTON ANGIOMA///NEVUS, NON-NEOPLASTIC 02/18/2007 Constipation 04/04/2015 Dysmetabolic syndrome X 12/28/2007 Essential hypertension 04/04/2015 GERD without esophagitis 07/24/2020 Hemorrhage of gastrointestinal tract, unspecified History of left mastectomy 05/05/2018 Impaired fasting glucose 11/21/2007 Internal hemorrhoids without mention of complication Iron deficiency anemia due to chronic blood loss 09/02/2023 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 Leg cramps 01/08/2020 Living will on file 07/31/2021 DPA: Javier ( ) Malignant neoplasm of both ovaries (HCC) 10/26/2018 Mixed hyperlipidemia 04/04/2015 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 multiple joints 07/27/2016 Osteopenia 12/28/2012 Other acne 05/29/2008 Other seborrheic keratosis 02/18/2007 Panic attacks 07/18/2012 Primary insomnia 01/29/2022 S/P colectomy 08/06/2023 SOLAR LENGINES///DYSCHROMIA OTHER 02/18/2007 Thrombocytopenia (HCC) 01/29/2022 chronic Trigger ring finger of left hand 07/24/2020 Trigger ring finger of right hand 07/24/2020 PAST SURGICAL HISTORY Procedure Laterality Date BX BREAST PERC VACUUM/ROTN 10/26/2007 LEFT COLONOSCOPY FLX DX W/COLLJ SPEC WHEN PFRMD 07/20/2005 COLONOSCOPY FLX DX W/COLLJ SPEC WHEN PFRMD 05/01/2016 normal - 10 year follow up LAPAROSCOPIC HEMICOLECTOMY Right 06/2023 LIG/TRNSXJ FLP TUBE ABDL/VAG APPR UNI/BI Tubal ligation MAST RAD W/PECTORAL MUSCLES AXILLARY LYMPH NODES 11/2007 Left PAST SURGICAL HISTORY OF BACK SURGERY PAST SURGICAL HISTORY OF 10/06/2018 Exploratory laparotomy, total abdominal hysterectomy, bilateral salpingooophorectomy, and bladder and posterior culdesac peritoneum resected en bloc, omentectomy PLCMT LOCALZTN CLIP,PERC,DURING BREAST BX 10/26/2007 LEFT S PORT-A-CATH 21-1501 11/09/2018 TONSILLECTOMY PRIMARY/SECONDARY Tonsillectomy FAMILY HISTORY Problem Relation Age of Onset Ovarian cancer Mother dx 50s Arthritis Father No Known Problems Maternal Grandmother No Known Problems Maternal Grandfather No Known Problems Paternal Grandmother No Known Problems Paternal Grandfather Cancer Maternal Aunt 7 aunts with breast or ovarian cancer. details unknown Social History Tobacco Use Smoking status: Never Passive exposure: Never Smokeless tobacco: Never Vaping Use Vaping status: Never Used Substance and Sexual Activity Alcohol use: Never Drug use: Never Sexual activity: Not Currently Partners: Male ALLERGIES Allergen Reactions Penicillins Rash Sulfa (Sulfonamide * Unknown Review of Systems Constitutional: Negative for chills and fever. Respiratory: Negative for shortness of breath. Cardiovascular: Negative for chest pain. Gastrointestinal: Positive for abdominal pain, nausea and vomiting. Negative for blood in stool. Genitourinary: Negative for decreased urine volume, dysuria and urg (more content not included)... [facility] ED Triage Noteon 08-13-2024 ED Triage Note HNO ID: [id number] Author: VANESSA MOODY PA-C Service: Emergency Medicine Author Type: Physician Loan Associate Type: ED Triage Notes Filed: 08/13/2024 12:58 Note Text: ED TRIAGE PROVIDER NOTE Patient Name: Savana Patel Service Date: 08/13/24 Provider in triage As provider in triage my care is limited to quick assessment and initiation of any orders able to be performed during triage. BRIEF HPI: This is a 74 year old female who presents to the ED sent from physician. Patient with history of breast, ovarian and colon cancer. Currently undergoing chemo with last being on . Having difficulties with constipation and now with vomiting. She denies any abdominal pain. Sent in for concerns with obstruction BRIEF EXAM: Constitutional: NAD HEENT: Normocephalic, atraumatic. Respiratory: No distress Cardiac: RRR, heart sounds normal. Abdomen: No tenderness Musculoskeltal: MCGILL x4. Patient ambulating in triage without difficulty. Neuro: AANDOx3. Skin: Warm and dry. INITIAL WORKUP AND DECISION MAKING: Orders Placed This Encounter CT ABD/PEL W IVCON CBC + DIFF COMP METABOLIC PANEL LIPASE BLD LACTIC ACID,POC(AK) Urinalysis w Microscopic, reflex Culture iv contrast (radiology procedure) SIGNATURE: Vanessa Moody PA-C [facility] Lipase SerPl-cCncon 08-13-19 25 Lipase [Catalytic activity/Vol] 18 U/L Normal 16-61 [facility] Comment on above: Order Comment: Speci men Type: BLOOD SPECIMENOrdering Facility: [facility] Address: [address] [place], [place] [address] [id number] Performed By: #### 3 040-3, 20600-0 ####[facility] LABORATORYCLIA [id number] [place] [address] [place] US ABD RIGHT UPPER QUADRANTo n 08-13-2024 US ABD RIGHT UPPER QUADRANT * * *Final Report* * * DATE OF EXAM: Aug 13 2024 10:30PM [place] 1032 - US ABD RIGHT UPPER QUADRANT / PROCEDURE REASON: Biliary obstruction suspected * * * * Physician Interpretation * * * * EXAMINATION: RIGHT UPPER QUADRANT ULTRASOUND CLINICAL HISTORY: Gallbladder wall thickening seen on prior CT. Biliary obstruction suspected TECHNIQUE: Sonography of the right upper quadrant was performed. Images were obtained and stored in a permanent archive. MQ: [id number] COMPARISON: CT abdomen and pelvis earlier today. RESULT: Pancreas: Unremarkable to the extent visualized Portions obscured: tail Liver: Patent portal vein with hepatopetal flow Echotexture: Coarse Echogenicity: Normal Surface contour: Slight nodular appearance Lesions: None. Biliary: No intrahepatic biliary duct dilation. CBD: 0.4 cm at the hilum. Gallbladder: Normal caliber -Contents: Gallbladder contains stones and sludge. -Wall: Thickened up to 4 mm -Other: There is pericholecystic fluid present. Sonographic Krause sign was reported as negative. Right Kidney: Mild hydronephrosis Ascites: There is ascites present.. IMPRESSION: Gallbladder contains stones and sludge and there is gallbladder wall thickening. There is pericholecystic fluid present although there is ascites present elsewhere in the abdomen and pelvis. Sonographic Krause sign was reported as negative. Findings are indeterminate for cholecystitis. Consider further evaluation with a nuclear medicine hepatobiliary exam. Mild RIGHT hydronephrosis. Coarse liver echogenicity with slight nodular surface contour. There is ascites present. Correlate for possible cirrhosis. Security Ambassador: SUMMER Transcribe Date/Time: Aug 14 2024 1:04A Dictated by : GERA WEBB MD This examination was interpreted and the report reviewed and electronically signed by: GERA WEBB MD on Aug 14 2024 1:14AM EST [id number] [facility] CBC W Auto Differential pane l (Bld)on 08-10-2024 Basophils (Bld) [#/Vol] [facility] Basophils/100 WBC (Bld) 0.3 % [facility] Differential cell count method Nom (Bld) Auto [facility] Eosinophils (Bld) [#/Vol] [facility] Eosinophils/100 WBC (Bld) 0.3 % [facility] Erythrocyte distribution width (RBC) [Ratio] 17.9 % High 11.5 - 15.0 % [facility] Hematocrit (Bld) [Volume fraction] 29.9 % Low 36.0 - 46.0 % [facility] Hemoglobin (Bld) [Mass/Vol] 9.1 g/dL Low 11.5 - 15.5 g/dL [facility] Immature granulocytes (Bld) [#/Vol] [facility] Immature granulocytes/100 WBC (Bld) 0 % [facility] Interpretation and review of laboratory results Abnormal [facility] Lymphocytes (Bld) [#/Vol] 1.04 10*3/uL [facility] Lymphocytes/100 WBC (Bld) 35 % [facility] MCH (RBC) [Entitic mass] 24.9 pg Low 26.0 - 34.[address] [facility] MCHC (RBC) [Mass/Vol] 30.4 g/dL Low 30.5 - 36.0 g/dL [facility] MCV (RBC) [Entitic vol] 81.9 fL 80.0 - 100.[address] [facility] Monocytes (Bld) [#/Vol] 0.47 10*3/uL [facility] Monocytes/100 WBC (Bld) 15.8 % [facility] Neutrophils (Bld) [#/Vol] 1.44 10*3/uL Low [facility] Neutrophils/100 WBC (Bld) 48.6 % [facility] Nucleated RBC (Bld) [#/Vol] [facility] Nucleated RBC/100 WBC (Bld) [Ratio] 0 % /[address] [facility] Platelet mean volume (Bld) [Entitic vol] 9.1 fL 9.0 - 12.[address] [facility] Platelets (Bld) [#/Vol] 151 10*3/uL [facility] RBC (Bld) [#/Vol] 3.65 10*6/uL Low 3.90 - 5.2 0 m/uL [facility] WBC (Bld) [#/Vol] 2.97 10*3/uL Low [facility] BRIEF OP NOTon 08-08-2024 BRIEF OP NOT HNO ID: [id number] Author: CORINNE TEMPLETON APRN.CNP Service: Interventional Radiology Author Type: Nurse Practitioner Type: Brief Op Note Filed: 08/08/2024 10:51 Note Text: BRIEF OP NOTE LOG ID: [id number] Surgery/Procedure Date: 08/08/2024 Incision/Procedure Start Time: 10:39 AM Incision Close/Procedure End Time: 10:42 AM Surgeon(s)/Proceduralist(s ) and Loan Associate(s): Corinne Templeton APRN.CNP Procedure(s): paracentesis Anesthesia: local 5 ml lidocaine Findings: RLQ 1400 ml clear yellow fluid Estimated Blood Loss: <3 ml Specimens: No Complications: none Pre-Op/Pre-Procedure Diagnosis: ascites Post-Op/Post-Procedure Diagnosis: same SIGNATURE: Corinne Templeton APRN.CNP PATIENT NAME: Savana Patel DATE: August 08, 2024 TIME: 10:51 AM PAGER/CONTACT #: [facility] PT panel Coag (PPP)on 2024 INR Coag (PPP) [Relative time] 1.0 {INR} Normal 0.9-1.3 [facility] Comment on above: Order Comment: Speci men Type: BLOOD SPECIMENOrdering Facility: [facility] Address: [address] [place] [address] Result Comment: Ivanna min K Antagonist (VKA) Therapeutic Range: INR 2 to 3 (Target INR of 2.5) Note: For patients treated with VKA drugs, such as warfarin, the [place] [employer] 2012 Guideline recommends a therapeutic INR range of 2 to 3 (target INR of 2.5). This recommendation includes high-risk patients with antiphospholipid syndrome with previous arterial or venous thromboembolism, current-generation mechanical or bioprosthetic aortic heart valve replacement. Note: Patients with mechanical aortic valve replacement and additional risk factors for thromboembolic events (atrial fibrillation, previous thromboembolism, LV dysfunction, hypercoagulable conditions) or an older generation mechanical AVR (i.e., ball in-Cage) or any mechanical MVR should have a INR therapeutic range of 2.5 to 3.5 (target INR of 3). Karthik BAHENA, et al. Chest 2012, 141:7S-47S Leigh PORTILLO, et al. [facility] 2017, 70: 252-289 Performed By: #### 3 4528-0 ####[facility]ORATORYCLIA [id number] [place] [id number] [place] PT Coag (PPP) [Time] 11.0 s Normal 9.7-13.0 [facility] Comment on above: Order Comment: Speci men Type: BLOOD SPECIMENOrdering Facility: [facility] Address: [address] [place] [address] Performed By: #### 3 4528-0 ####[facility]ORATORYCLIA [id number] [place] [address] [place] US ASCITES SURVEYon 08-08-19 25 US ASCITES SURVEY * * *Final Report* * * DATE OF EXAM: Aug 08 2024 11:03AM CÉSAR 1016 - US ASCITES SURVEY / PROCEDURE REASON: Follow Up * * * * Physician Interpretation * * * * HISTORY: Follow Up ascites, abdominal distention and discomfort TECHNIQUE: Four-quadrant abdominal pelvic ultrasound with permanent recorded images COMPARISON: 07/25/2024 RESULT: Images demonstrate mild to moderate generalized ascites. IMPRESSION: Ascites Security Ambassador: PSCB Transcribe Date/Time: Aug 08 2024 11:06A Dictated by : MAIK AC MD This examination was interpreted and the report reviewed and electronically signed by: MAIK AC MD on Aug 08 2024 11:07AM EST [id number] [facility] US PARACENTESIS BIon 025 US PARACENTESIS BI * * *Final Report* * * DATE OF EXAM: Aug 08 2024 11:03AM CÉSAR 203 - US PARACENTESIS BI / PROCEDURE REASON: Follow Up * * * * Physician Interpretation * * * * EXAM TITLE: ULTRASOUND GUIDED PARACENTESIS CLINICAL HISTORY: Ascites PROCEDURE DATE: 08/08/2024 COMPARISON: Ascites survey dated 08/08/2024 Procedure Start Time and Sign In Time: 10:39 AM Procedure End Time and Sign Out Time: 10:42 AM TECHNIQUE: Informed consent was obtained from the patient. The patient was placed in a supine position and with ultrasound guidance an appropriate skin entry site in the right abdomen was identified, prepped, and anesthetized. With ultrasound guidance a 5-Albanian Yuey needle and sheath was passed into the peritoneal space and 1400 cc of clear yellow fluid was withdrawn. No specimens were sent for laboratory evaluation. There were no apparent complications. RESULT: Ultrasound revealed a generous amount of ascites containing no debris. IMPRESSION: Technically successful ultrasound guided paracentesis yielded 1400 cc of clear yellow fluid. Security Ambassador[facility] Transcribe Date/Time: Aug 08 2024 11:06A Dictated by : CORINNE TEMPLETON CNP This examination was interpreted and the report reviewed and electronically signed by: CORINNE TEMPLETON CNP on Aug 08 2024 11:06AM EST [id number] [facility] CBC W Auto Differential pane l (Bld)on 08-01-2024 Basophils (Bld) [#/Vol] [facility] Basophils/100 WBC (Bld) 0.3 % [facility] Differential cell count method Nom (Bld) Auto [facility] Eosinophils (Bld) [#/Vol] 0.03 10*3/uL [facility] Eosinophils/100 WBC (Bld) 0.9 % [facility] Erythrocyte distribution width (RBC) [Ratio] 17.3 % High 11.5 - 15.0 % [facility] Hematocrit (Bld) [Volume fraction] 30.7 % Low 36.0 - 46.0 % [facility] Hemoglobin (Bld) [Mass/Vol] 9.3 g/dL Low 11.5 - 15.5 g/dL [facility] Immature granulocytes (Bld) [#/Vol] [facility] Immature granulocytes/100 WBC (Bld) 0.3 % [facility] Interpretation and review of laboratory results Abnormal [facility] Lymphocytes (Bld) [#/Vol] 0.74 10*3/uL Low [facility] Lymphocytes/100 WBC (Bld) 21.8 % [facility] MCH (RBC) [Entitic mass] 24.8 pg Low 26.0 - 34.[address] [facility] MCHC (RBC) [Mass/Vol] 30.3 g/dL Low 30.5 - 36.0 g/dL [facility] MCV (RBC) [Entitic vol] 81.9 fL 80.0 - 100.[address] [facility] Monocytes (Bld) [#/Vol] 0.31 10*3/uL NINF [facility] Monocytes/100 WBC (Bld) 9.1 % [facility] Neutrophils (Bld) [#/Vol] 2.3 10*3/uL [facility] Neutrophils/100 WBC (Bld) 67.6 % [facility] Nucleated RBC (Bld) [#/Vol] NINF [facility] Nucleated RBC/100 WBC (Bld) [Ratio] 0 % /[address] [facility] Platelet mean volume (Bld) [Entitic vol] 9.3 fL 9.0 - 12.[address] [facility] Platelets (Bld) [#/Vol] 140 10*3/uL Low [facility] RBC (Bld) [#/Vol] 3.75 10*6/uL Low 3.90 - 5.2 0 m/uL [facility] WBC (Bld) [#/Vol] 3.4 10*3/uL Low [facility] Comprehensive metabolic 2000 panelOrdered By: Janet Vick on 08-01-2024 Albumin [Mass/Vol] 3.8 g/dL Low 3.9 - 4.9 g/dL [facility] ALP [Catalytic activity/Vol] 70 U/L 34 - 123 U/L [facility] ALT [Catalytic activity/Vol] 12 U/L 7 - 38 U/L [facility] Anion gap [Moles/Vol] 10 mmol/L 8 - 15 mmol/L [facility] AST [Catalytic activity/Vol] 31 U/L 13 - 35 U/L [facility] Bilirubin [Mass/Vol] 0.4 mg/dL 0.2 - 1 .3 mg/[facility] Calcium [Mass/Vol] 9.5 mg/dL 8.5 - 10. 2 mg/dL [facility] Chloride [Moles/Vol] 102 mmol/L 98 - 10 7 mmol/L [facility] CO2 [Moles/Vol] 27 mmol/L 22 - 30 mmol/L [facility] Creatinine [Mass/Vol] 0.78 mg/dL 0.58 - 0.96 mg/dL [facility] GFR/1.73 sq M.predicted among non-blacks MDRD (S/P/Bld) [Vol rate/Area] 79 mL/min/{1.73_m2} - PINF [facility] Comment on above: Estimated Glomerular Filtration Rate (eGFR) is calculated using the 2020 CKD-EPI creatinine equation. This equation utilizes serum creatinine, sex, and age as parameters. The creatinine assay has traceable calibration to isotope dilution-mass spectrometry. Refer to KDIGO guidelines for clinical interpretation. In patients with unstable renal function, e.g. those with acute kidney injury, the eGFR may not accurately reflect actual GFR. Glucose [Mass/Vol] 101 mg/dL High 74 - 99 mg/dL [facility] Comment on above: The [place] [employer] (ADA) provides guidance for cutoff values for fasting glucose and random glucose. The ADA defines fasting as no caloric intake for at least 8 hours. Fasting plasma glucose results between 100 to 125 mg/dL indicate increased risk for diabetes (prediabetes). Fasting plasma glucose results greater than or equal to 126 mg/dL meet the criteria for diagnosis of diabetes. In the absence of unequivocal hyperglycemia, results should be confirmed by repeat testing. In a patient with classic symptoms of hyperglycemia or hyperglycemic crisis, random plasma glucose results greater than or equal to 200 mg/dL meet the criteria for diagnosis of diabetes. Reference: Standards of Medical Care in Diabetes 2016, [place] [employer]. Diabetes Care. 2016.39(Suppl 1). Interpretation and review of laboratory results Abnormal [facility] Potassium [Moles/Vol] 3.8 mmol/L 3.7 - 5.1 mmol/L [facility] Protein [Mass/Vol] 7 g/dL 6.3 - 8.0 g/dL [facility] Sodium [Moles/Vol] 139 mmol/L 136 - 144 mmol/L [facility] Urea nitrogen [Mass/Vol] 19 mg/dL 7 - 21 mg/dL [facility] ANES POSTPROC EVALon 025 ANES POSTPROC EVAL HNO ID: [id number] Author: ALBERTO COBOS DO Service: Anesthesiology Author Type: Anesthesiologist Type: Anesthesia Postprocedure Evaluation Filed: 07/31/2024 17:28 Note Text: POST ANESTHESIA EVALUATION NOTE : 1950 Procedure Summary Date: 07/31/24 Room / Location: [facility] Anesthesia Start: 1402 Anesthesia Stop: 1443 Procedures: EGD DIAGNOSTIC COLONOSCOPY DIAGNOSTIC Diagnosis: Hemorrhoids, unspecified hemorrhoid type Rectal bleeding Dysphagia, unspecified type (Suspected esophageal reflux) (Hematochezia) Scheduled Providers: Wu Moe MD; Sloan Howe APRN.CRNA; Alberto Cobos DO Responsible Provider: Alberto Cobos DO Anesthesia Type: MAC ASA Status: 3 Anesthesia Type: MAC Last Vitals Vitals Value Taken Time BP 132/66 07/31/24 1500 Temp 07/31/24 1728 Pulse 67 07/31/24 1500 Resp 12 07/31/24 1440 SpO2 99 % 07/31/24 1500 Post Anesthesia Patient Status Patient Evaluation: PACU. PACU/ICU Patient Condition: stable. Anticipated Disposition: phase 2 then home. Neurological Status: aware and responsive. Pulmonary Status: breathing comfortably on room air Airway Control: returned to baseline unsupported. Cardiovascular Status: stable. Pain Management: clinically adequate Postoperative Hydration: acceptable. Intraoperative Events: no significant anesthesia events Post Operative Nausea/Vomiting Status: no significant post operative nausea or vomiting Recommendation: continue current plan of care and further care per PACU/ICU/floor team. Anesthesia Observations No Documentation SIGNATURE: Alberto Cobos DO PATIENT NAME: Savana Patel DATE: July 31, 2024 TIME: 5:28 PM CSN: [id number] [facility] ANES PRE-OPon 07-31-2024 ANES PRE-OP HNO ID: [id number] Author: ALBERTO COBOS DO Service: Anesthesiology Author Type: Anesthesiologist Type: Anesthesia Preprocedure Evaluation Filed: 07/31/2024 12:29 Note Text: ANESTHESIOLOGY DAY OF SURGERY NOTE : 1950 Procedure Information Date/Time: 07/31/24 1400 Scheduled providers: Wu Moe MD; Sloan Howe APRN.CRNA; Alberto Cobos DO Procedures: EGD DIAGNOSTIC COLONOSCOPY DIAGNOSTIC Location: [facility] Estimated body mass index is 20.77 kg/m? as calculated from the following: Height as of 07/26/24: 162.6 cm (5' 4). Weight as of 07/26/24: 54.9 kg (121 lb). Most recent hematocrit and potassium results: Hematocrit 29.9 07/20/2024 Potassium 4.4 07/07/2024 Relevant Problems CARDIO (+) Essential hypertension (+) Hot flashes (+) Internal hemorrhoids without mention of complication GI (+) GERD without esophagitis Other (+) Arthritis of knee, right I - PHYSICAL EVALUATION AIRWAY Patient intubated: No. Tracheostomy tube not present Mallampati: II. TM distance: >3 FB. Neck ROM: full ROM without neurological symptoms. Mouth opening: adequate. Short neck: no. Thick neck: no DENTAL Dental findings: teeth intact. II - ANESTHESIA PLAN ASA Score: 3 Anesthetic Plan: MAC NPO Status: adequate Beta Juan Miguel Monitoring Plan Monitoring plan: standard ASA. Post Procedure Analgesic Plan Postoperative analgesic plan: parenteral or oral opioids. Informed Consent Anesthetic risks, benefits, alternatives, personnel and consent discussed: yes. Patient / Responsible Republican agrees to proceed: yes Patient / Surrogate agrees to blood products: Yes DNR status not reviewed with patient and/or family prior to surgery. Significant changes in the patient condition since the History and Physical, not otherwise documented in primary service progress note: no. Potential Anesthesia issues that may suggest increased risk of complications or contraindication to planned procedure: none. No vitals data found for the desired time range. Outpatient Medications as of 07/31/2024 Medication Sig senna-docusate (SENNA-S) 8.6-50 mg per tablet Take 1 tablet by mouth once daily as needed for constipation. omeprazole (PRILOSEC) 40 mg capsule Take 1 capsule by mouth once daily. ondansetron (ZOFRAN) 8 mg tablet Take 1 tablet by mouth every 8 hours as needed for nausea/vomiting. acetaminophen (TYLENOL) 500 mg tablet Take 2 tablets by mouth every 8 hours. docusate sodium (COLACE ORAL) Take 1 tablet by mouth once daily as needed. No current facility-administered medications on file as of 07/31/2024. I have interviewed and examined the patient. I have reviewed the medical record and/or the pre-anesthesia evaluation, pertinent labs, and test results. This contains updated information obtained within 48 hours of Surgery/Procedure. SIGNATURE: Alberto Cobos DO PATIENT NAME: Savana Patel DATE: July 31, 2024 TIME: 12:27 PM CSN: [id number] [facility] CT Abdomen and Pelvis W cont rast Chiquis 07-31-2024 * * *Final Report* * * DATE OF EXAM: Jul 28 2024 3:08PM [facility] 0530 - CT ABD/PEL W IVCON / PROCEDURE REASON: multiple diagnoses * * * * Physician Interpretation * * * * EXAMINATION: CT CHEST, ABDOMEN AND PELVIS WITH IV CONTRAST CLINICAL HISTORY: Ovarian cancer follow-up TECHNIQUE: CT of the chest, abdomen and pelvis was performed using standard technique, scanning from lower neck to the upper thighs. Contrast: Central IV: 100 ml of Omnipaque 350 Oral: 10 ml of Omni 240 10-25ml diluted with water CT Radiation dose: Integrated Dose-length product (DLP) for this visit = 588 mGy*cm. CT Dose Reduction Employed: Automated exposure control(AEC) and iterative recon COMPARISON: CT chest abdomen and pelvis 06/15/2024 FINDINGS: CHEST LOWER NECK: No significant abnormality. A 6 mm left supraclavicular lymph node (7:19) is unchanged. CHEST WALL SOFT TISSUES: No axillary/subpectoral adenopathy or other gross imaging abnormality seen. Postsurgical changes from prior left mastectomy again noted. The tip of a right chest port terminates at the SVC-atrial junction. MEDIASTINUM AND CORINE: No mediastinal or hilar adenopathy. The esophagus is normal in course and caliber. HEART AND MAJOR VASCULAR STRUCTURES: The aorta and great vessels are normal in caliber, and patent. The central pulmonary arteries are clear. Cardiac chambers grossly within normal limits. LARGE AIRWAYS: Patent. LUNGS: Subpleural reticular and nodular opacities at the lateral periphery of the right upper lobe are again demonstrated and are grossly unchanged from prior exam. Few subcentimeter nodular densities along the posterior pleural surfaces are stable and may reflect subpleural lymph nodes. A small cluster of nodular consolidations along the posterior periphery of the left upper lobe (10:57) is unchanged. A 2 mm of the left upper lobe abutting the major fissure (10:62) is stable, as is a small focal consolidation seen more laterally along the left major fissure (10:74). No suspicious nodule otherwise seen. PLEURA: No visible pleural abnormality. BONY THORACIC STRUCTURES: No suspicious osseous lesion. ABDOMEN HEPATOBILIARY: The liver and gallbladder are normal in appearance with no focal mass seen. No biliary ductal dilatation. SPLEEN, PANCREAS, ADRENAL GLANDS: Within normal limits. KIDNEYS, URETERS, BLADDER: Symmetric parenchymal enhancement with no hydronephrosis. Scattered low-density lesions throughout the kidneys are too small to accurately characterize by CT. No gross abnormality seen along the expected course of the ureters. The bladder is not well seen. UTERUS, ADNEXA: There has been prior hysterectomy and salpingo-oophorectomy. No convincing adnexal mass seen. BOWEL: Postsurgical changes from prior right hemicolectomy again noted . No rk evidence of obstruction is seen, however, few scattered upper abdominal small bowel loops are dilated to 3 cm. These eventually taper down to compressed loops of bowel in the deep pelvis (8:107), however, no rk transition point seen. PERITONEAL/EXTRAPERITONEAL SPACE: Ascites persists, though mildly decreased in volume compared to prior exam. A masslike soft tissue structure within the left retroperitoneum (8:90) appears new from prior exam. This finding is intimate with a few small bowel loops inferiorly, and few foci of gas are noted at the anterior aspect of its superior portion. Soft tissue deposits within the peritoneum have increased in size. For example: --A 12 mm deposited along Gerota's fascia on the right (8:78) previously seen measured 7 mm --Subtle nodularity and enhancement along the left paracolic gutter (8:61) is increased LYMPH NODES: Multiple prominent mesenteric lymph nodes are again noted, some of which are mildly increased in size. For example: --A central mesenteric node (8:44) measures 11 x 8 mm (previously 8 x 7 mm) --An adjacent node more superiorly measures 6 mm in short axis dimension (previously 4 mm) --Another adjacent node more inferiorly and to the left measures 12 x 5 mm (previously 11 x 4 mm) VASCULAR: Grossly unremarkable. ABDOMINAL WALL: Small fat-containing left inguinal hernia. MUSCULOSKELETAL: No suspicious osseous lesion. Grade 1 spondylolisthesis of L4 and L5. DIVISION OF RADIOLOGY Provider, Stanislaw Ring [facility] - 07/31/2024 * * *Final Report* * * DATE OF EXAM: Jul 28 2024 3:08PM [facility] 0530 - CT ABD/PEL W IVCON / PROCEDURE REASON: multiple diagnoses * * * * Physician Interpretation * * * * EXAMINATION: CT CHEST, ABDOMEN AND PELVIS WITH IV CONTRAST CLINICAL HISTORY: Ovarian cancer follow-up TECHNIQUE: CT of the chest, abdomen and pelvis was performed using standard technique, scanning from lower neck to the upper thighs. Contrast: Central IV: 100 ml of Omnipaque 350 Oral: 10 ml of Omni 240 10-25ml diluted with water CT Radiation dose: Integrated Dose-length product (DLP) for this visit = 588 mGy*cm. CT Dose Reduction Employed: Automated exposure control(AEC) and iterative recon COMPARISON: CT chest abdomen and pelvis 06/15/2024 FINDINGS: CHEST LOWER NECK: No significant abnormality. A 6 mm left supraclavicular lymph node (7:19) is unchanged. CHEST WALL SOFT TISSUES: No axillary/subpectoral adenopathy or other gross imaging abnormality seen. Postsurgical changes from prior left mastectomy again noted. The tip of a right chest port terminates at the SVC-atrial junction. MEDIASTINUM AND CORINE: No mediastinal or hilar adenopathy. The esophagus is normal in course and caliber. HEART AND MAJOR VASCULAR STRUCTURES: The aorta and great vessels are normal in caliber, and patent. The central pulmonary arteries are clear. Cardiac chambers grossly within normal limits. LARGE AIRWAYS: Patent. LUNGS: Subpleural reticular and nodular opacities at the lateral periphery of the right upper lobe are again demonstrated and are grossly unchanged from prior exam. Few subcentimeter nodular densities along the posterior pleural surfaces are stable and may reflect subpleural lymph nodes. A small cluster of nodular consolidations along the posterior periphery of the left upper lobe (10:57) is unchanged. A 2 mm of the left upper lobe abutting the major fissure (10:62) is stable, as is a small focal consolidation seen more laterally along the left major fissure (10:74). No suspicious nodule otherwise seen. PLEURA: No visible pleural abnormality. BONY THORACIC STRUCTURES: No suspicious osseous lesion. ABDOMEN HEPATOBILIARY: The liver and gallbladder are normal in appearance with no focal mass seen. No biliary ductal dilatation. SPLEEN, PANCREAS, ADRENAL GLANDS: Within normal limits. KIDNEYS, URETERS, BLADDER: Symmetric parenchymal enhancement with no hydronephrosis. Scattered low-density lesions throughout the kidneys are too small to accurately characterize by CT. No gross abnormality seen along the expected course of the ureters. The bladder is not well seen. UTERUS, ADNEXA: There has been prior hysterectomy and salpingo-oophorectomy. No convincing adnexal mass seen. BOWEL: Postsurgical changes from prior right hemicolectomy again noted . No rk evidence of obstruction is seen, however, few scattered upper abdominal small bowel loops are dilated to 3 cm. These eventually taper down to compressed loops of bowel in the deep pelvis (8:107), however, no rk transition point seen. PERITONEAL/EXTRAPERITONEAL SPACE: Ascites persists, though mildly decreased in volume compared to prior exam. A masslike soft tissue structure within the left retroperitoneum (8:90) appears new from prior exam. This finding is intimate with a few small bowel loops inferiorly, and few foci of gas are noted at the anterior aspect of its superior portion. Soft tissue deposits within the peritoneum have increased in size. For example: --A 12 mm deposited along Gerota's fascia on the right (8:78) previously seen measured 7 mm --Subtle nodularity and enhancement along the left paracolic gutter (8:61) is increased LYMPH NODES: Multiple prominent mesenteric lymph nodes are again noted, some of which are mildly increased in size. For example: --A central mesenteric node (8:44) measures 11 x 8 mm (previously 8 x 7 mm) --An adjacent node more superiorly measures 6 mm in short axis dimension (previously 4 mm) --Another adjacent node more inferiorly and to the left measures 12 x 5 mm (previously 11 x 4 mm) VASCULAR: Grossly unremarkable. ABDOMINAL WALL: Small fat-containing left inguinal hernia. MUSCULOSKELETAL: No suspicious osseous lesion. Grade 1 spondylolisthesis of L4 and L5. IMPRESSION IMPRESSION: 1. There is persistent ascites throughout the abdomen and pelvis, that is mildly decreased in volume compared to prior exam. However, a masslike soft tissue structure within the left retroperitoneum appears new from prior exam. The inferior portion of this finding is intimate with adjacent small bowel loops, and as such, may reflect collapsed bowel. However, the appearan (more content not included)... [facility] CT Chest W contrast Chiquis * * *Final Report* * * DATE OF EXAM: Jul 28 2024 3:08PM [facility] 0539 - CT CHEST W IVCON / PROCEDURE REASON: multiple diagnoses * * * * Physician Interpretation * * * * EXAMINATION: CT CHEST, ABDOMEN AND PELVIS WITH IV CONTRAST CLINICAL HISTORY: Ovarian cancer follow-up TECHNIQUE: CT of the chest, abdomen and pelvis was performed using standard technique, scanning from lower neck to the upper thighs. Contrast: Central IV: 100 ml of Omnipaque 350 Oral: 10 ml of Omni 240 10-25ml diluted with water CT Radiation dose: Integrated Dose-length product (DLP) for this visit = 588 mGy*cm. CT Dose Reduction Employed: Automated exposure control(AEC) and iterative recon COMPARISON: CT chest abdomen and pelvis 06/15/2024 FINDINGS: CHEST LOWER NECK: No significant abnormality. A 6 mm left supraclavicular lymph node (7:19) is unchanged. CHEST WALL SOFT TISSUES: No axillary/subpectoral adenopathy or other gross imaging abnormality seen. Postsurgical changes from prior left mastectomy again noted. The tip of a right chest port terminates at the SVC-atrial junction. MEDIASTINUM AND CORINE: No mediastinal or hilar adenopathy. The esophagus is normal in course and caliber. HEART AND MAJOR VASCULAR STRUCTURES: The aorta and great vessels are normal in caliber, and patent. The central pulmonary arteries are clear. Cardiac chambers grossly within normal limits. LARGE AIRWAYS: Patent. LUNGS: Subpleural reticular and nodular opacities at the lateral periphery of the right upper lobe are again demonstrated and are grossly unchanged from prior exam. Few subcentimeter nodular densities along the posterior pleural surfaces are stable and may reflect subpleural lymph nodes. A small cluster of nodular consolidations along the posterior periphery of the left upper lobe (10:57) is unchanged. A 2 mm of the left upper lobe abutting the major fissure (10:62) is stable, as is a small focal consolidation seen more laterally along the left major fissure (10:74). No suspicious nodule otherwise seen. PLEURA: No visible pleural abnormality. BONY THORACIC STRUCTURES: No suspicious osseous lesion. ABDOMEN HEPATOBILIARY: The liver and gallbladder are normal in appearance with no focal mass seen. No biliary ductal dilatation. SPLEEN, PANCREAS, ADRENAL GLANDS: Within normal limits. KIDNEYS, URETERS, BLADDER: Symmetric parenchymal enhancement with no hydronephrosis. Scattered low-density lesions throughout the kidneys are too small to accurately characterize by CT. No gross abnormality seen along the expected course of the ureters. The bladder is not well seen. UTERUS, ADNEXA: There has been prior hysterectomy and salpingo-oophorectomy. No convincing adnexal mass seen. BOWEL: Postsurgical changes from prior right hemicolectomy again noted . No rk evidence of obstruction is seen, however, few scattered upper abdominal small bowel loops are dilated to 3 cm. These eventually taper down to compressed loops of bowel in the deep pelvis (8:107), however, no rk transition point seen. PERITONEAL/EXTRAPERITONEAL SPACE: Ascites persists, though mildly decreased in volume compared to prior exam. A masslike soft tissue structure within the left retroperitoneum (8:90) appears new from prior exam. This finding is intimate with a few small bowel loops inferiorly, and few foci of gas are noted at the anterior aspect of its superior portion. Soft tissue deposits within the peritoneum have increased in size. For example: --A 12 mm deposited along Gerota's fascia on the right (8:78) previously seen measured 7 mm --Subtle nodularity and enhancement along the left paracolic gutter (8:61) is increased LYMPH NODES: Multiple prominent mesenteric lymph nodes are again noted, some of which are mildly increased in size. For example: --A central mesenteric node (8:44) measures 11 x 8 mm (previously 8 x 7 mm) --An adjacent node more superiorly measures 6 mm in short axis dimension (previously 4 mm) --Another adjacent node more inferiorly and to the left measures 12 x 5 mm (previously 11 x 4 mm) VASCULAR: Grossly unremarkable. ABDOMINAL WALL: Small fat-containing left inguinal hernia. MUSCULOSKELETAL: No suspicious osseous lesion. Grade 1 spondylolisthesis of L4 and L5. DIVISION OF RADIOLOGY Provider, [facility] - 07/31/2024 * * *Final Report* * * DATE OF EXAM: Jul 28 2024 3:08PM [facility] 0539 - CT CHEST W IVCON / PROCEDURE REASON: multiple diagnoses * * * * Physician Interpretation * * * * EXAMINATION: CT CHEST, ABDOMEN AND PELVIS WITH IV CONTRAST CLINICAL HISTORY: Ovarian cancer follow-up TECHNIQUE: CT of the chest, abdomen and pelvis was performed using standard technique, scanning from lower neck to the upper thighs. Contrast: Central IV: 100 ml of Omnipaque 350 Oral: 10 ml of Omni 240 10-25ml diluted with water CT Radiation dose: Integrated Dose-length product (DLP) for this visit = 588 mGy*cm. CT Dose Reduction Employed: Automated exposure control(AEC) and iterative recon COMPARISON: CT chest abdomen and pelvis 06/15/2024 FINDINGS: CHEST LOWER NECK: No significant abnormality. A 6 mm left supraclavicular lymph node (7:19) is unchanged. CHEST WALL SOFT TISSUES: No axillary/subpectoral adenopathy or other gross imaging abnormality seen. Postsurgical changes from prior left mastectomy again noted. The tip of a right chest port terminates at the SVC-atrial junction. MEDIASTINUM AND CORINE: No mediastinal or hilar adenopathy. The esophagus is normal in course and caliber. HEART AND MAJOR VASCULAR STRUCTURES: The aorta and great vessels are normal in caliber, and patent. The central pulmonary arteries are clear. Cardiac chambers grossly within normal limits. LARGE AIRWAYS: Patent. LUNGS: Subpleural reticular and nodular opacities at the lateral periphery of the right upper lobe are again demonstrated and are grossly unchanged from prior exam. Few subcentimeter nodular densities along the posterior pleural surfaces are stable and may reflect subpleural lymph nodes. A small cluster of nodular consolidations along the posterior periphery of the left upper lobe (10:57) is unchanged. A 2 mm of the left upper lobe abutting the major fissure (10:62) is stable, as is a small focal consolidation seen more laterally along the left major fissure (10:74). No suspicious nodule otherwise seen. PLEURA: No visible pleural abnormality. BONY THORACIC STRUCTURES: No suspicious osseous lesion. ABDOMEN HEPATOBILIARY: The liver and gallbladder are normal in appearance with no focal mass seen. No biliary ductal dilatation. SPLEEN, PANCREAS, ADRENAL GLANDS: Within normal limits. KIDNEYS, URETERS, BLADDER: Symmetric parenchymal enhancement with no hydronephrosis. Scattered low-density lesions throughout the kidneys are too small to accurately characterize by CT. No gross abnormality seen along the expected course of the ureters. The bladder is not well seen. UTERUS, ADNEXA: There has been prior hysterectomy and salpingo-oophorectomy. No convincing adnexal mass seen. BOWEL: Postsurgical changes from prior right hemicolectomy again noted . No rk evidence of obstruction is seen, however, few scattered upper abdominal small bowel loops are dilated to 3 cm. These eventually taper down to compressed loops of bowel in the deep pelvis (8:107), however, no rk transition point seen. PERITONEAL/EXTRAPERITONEAL SPACE: Ascites persists, though mildly decreased in volume compared to prior exam. A masslike soft tissue structure within the left retroperitoneum (8:90) appears new from prior exam. This finding is intimate with a few small bowel loops inferiorly, and few foci of gas are noted at the anterior aspect of its superior portion. Soft tissue deposits within the peritoneum have increased in size. For example: --A 12 mm deposited along Gerota's fascia on the right (8:78) previously seen measured 7 mm --Subtle nodularity and enhancement along the left paracolic gutter (8:61) is increased LYMPH NODES: Multiple prominent mesenteric lymph nodes are again noted, some of which are mildly increased in size. For example: --A central mesenteric node (8:44) measures 11 x 8 mm (previously 8 x 7 mm) --An adjacent node more superiorly measures 6 mm in short axis dimension (previously 4 mm) --Another adjacent node more inferiorly and to the left measures 12 x 5 mm (previously 11 x 4 mm) VASCULAR: Grossly unremarkable. ABDOMINAL WALL: Small fat-containing left inguinal hernia. MUSCULOSKELETAL: No suspicious osseous lesion. Grade 1 spondylolisthesis of L4 and L5. IMPRESSION IMPRESSION: 1. There is persistent ascites throughout the abdomen and pelvis, that is mildly decreased in volume compared to prior exam. However, a masslike soft tissue structure within the left retroperitoneum appears new from prior exam. The inferior portion of this finding is intimate with adjacent small bowel loops, and as such, may reflect collapsed bowel. However, the appearance (more content not included)... [facility] Colonoscopyon 07-31-2024 [facility] Patient Name: Savana Patel Procedure Date: 07/31/2024 2:19 PM Date of : 1950 Admit Type: Outpatient Age: 74 Room: [facility] Gender: Female Note Status: Finalized Attending MD: Wu Moe MD, [id number] Procedure: Colonoscopy Indications: Hematochezia Providers: Wu Moe MD Patient Profile: This is a 74 year old female. Refer to note in patient chart for documentation of history and physical. Last Colonoscopy: date unknown. Unable to locate last colonoscopy report. Referring Physician: Wu Moe MD (Referring MD) Medicines: Monitored Anesthesia Care Complications: No immediate complications. Requesting Provider: Procedure: Pre-Anesthesia Assessment: - Prior to the procedure, a History and Physical was performed, and patient medications and allergies were reviewed. The patient is competent. The risks and benefits of the procedure and the sedation options and risks were discussed with the patient. All questions were answered and informed consent was obtained. Patient identification and proposed procedure were verified by the physician, the nurse and the equal opportunity officer in the procedure room. Prophylactic Antibiotics: The patient does not require prophylactic antibiotics. Prior Anticoagulants: The patient has taken no anticoagulant or antiplatelet agents. ASA Grade Assessment: III - A patient with severe systemic disease. After reviewing the risks and benefits, the patient was deemed in satisfactory condition to undergo the procedure. The anesthesia plan was to use monitored anesthesia care (MAC). Immediately prior to administration of medications, the patient was re-assessed for adequacy to receive sedatives. The heart rate, respiratory rate, oxygen saturations, blood pressure, adequacy of pulmonary ventilation, and response to care were monitored throughout the procedure. The physical status of the patient was re-assessed after the procedure. After I obtained informed consent, the scope was passed under direct vision. Throughout the procedure, the patient's blood pressure, pulse, and oxygen saturations were monitored continuously. The Colonoscope was introduced through the anus and advanced to the ileocolonic anastomosis. The colonoscopy was performed without difficulty. The patient tolerated the procedure well. The terminal ileum and the rectum were photographed. The quality of the bowel preparation was good. Scope Withdrawal Time: 0 hours 5 minutes 5 seconds Moderate Sedation: MAC anesthesia was administered by the anesthesia team. Total Procedure Duration: 0 hours 9 minutes 14 seconds Findings: The perianal and digital rectal examinations were normal. There was evidence of a prior end-to-side ileo-colonic anastomosis in the proximal ascending colon. This was patent and was characterized by healthy appearing mucosa. The anastomosis was traversed. The terminal ileum appeared normal. The colon (entire examined portion) appeared normal. Hemorrhoids were found during retroflexion. The hemorrhoids were moderate. Impression: - Patent end-to-side ileo-colonic anastomosis, characterized by healthy appearing mucosa. - The examined portion of the ileum was normal. - The entire examined colon is normal. - Hemorrhoids. - No specimens collected. Recommendation: - Discharge patient to home. - Resume previous diet. - Continue present medications. - Repeat colonoscopy. - Telephone my office for pathology results in 1 week. - Patient has a contact number available for emergencies. The signs and symptoms of potential delayed complications were discussed with the patient. Return to normal activities tomorrow. Written discharge instructions were provided to the patient. Procedure Code(s): --- Professional --- 22627, Colonoscopy, flexible; diagnostic, including collection of specimen(s) by brushing or washing, when performed (separate procedure) CPT copyright 2020 [employer]. All rights reserved. The codes documented in this report are preliminary and upon medical doctor md review may be revised to meet current compliance requirements. Attending Participation: I personally performed the entire procedure. Scope In: 2:20:20 PM Scope Out: 2:29:34 PM MD Wu Arcos MD 07/31/2024 2:42:34 PM This report has been signed electronically by Wu Moe MD Number of Addenda: 0 Note Initiated On: 07/31/2024 2:19 PM Estimated Blood Loss: Estimated blood loss: none. [facility] EGD Study observation Bi yates 07-31-2024 [facility] Patient Name: Savana Patel Procedure Date: 07/31/2024 1:51 PM Date of : 1950 Admit Type: Outpatient Age: 74 Room: [facility] Gender: Female Note Status: Finalized Attending MD: Wu Moe MD, [id number] Procedure: Upper GI endoscopy Indications: Suspected esophageal reflux Providers: Wu Moe MD Patient Profile: This is a 74 year old female. Refer to note in patient chart for documentation of history and physical. Referring Physician: Wu Moe MD (Referring MD) Medicines: Monitored Anesthesia Care Complications: No immediate complications. Requesting Provider: Procedure: Pre-Anesthesia Assessment: - Prior to the procedure, a History and Physical was performed, and patient medications and allergies were reviewed. The patient is competent. The risks and benefits of the procedure and the sedation options and risks were discussed with the patient. All questions were answered and informed consent was obtained. Patient identification and proposed procedure were verified by the physician, the nurse and the equal opportunity officer in the procedure room. Prophylactic Antibiotics: The patient does not require prophylactic antibiotics. Prior Anticoagulants: The patient has taken no anticoagulant or antiplatelet agents. ASA Grade Assessment: III - A patient with severe systemic disease. After reviewing the risks and benefits, the patient was deemed in satisfactory condition to undergo the procedure. The anesthesia plan was to use monitored anesthesia care (MAC). Immediately prior to administration of medications, the patient was re-assessed for adequacy to receive sedatives. The heart rate, respiratory rate, oxygen saturations, blood pressure, adequacy of pulmonary ventilation, and response to care were monitored throughout the procedure. The physical status of the patient was re-assessed after the procedure. After obtaining informed consent, the endoscope was passed under direct vision. Throughout the procedure, the patient's blood pressure, pulse, and oxygen saturations were monitored continuously. The Endoscope was introduced through the mouth, and advanced to the jejunum. The upper GI endoscopy was accomplished without difficulty. The patient tolerated the procedure well. Moderate Sedation: MAC anesthesia was administered by the anesthesia team. Total Procedure Duration: 0 hours 5 minutes 20 seconds Findings: The examined jejunum was normal. The examined duodenum was normal. Scattered mild inflammation characterized by erosions and erythema was found in the entire examined stomach. A small hiatal hernia was present. Moderate esophagitis with no bleeding was found in the lower third of the esophagus. Biopsies were taken with a cold forceps for histology. Impression: - Normal examined jejunum. - Normal examined duodenum. - Gastritis, characterized by erosions and erythema. - Small hiatal hernia. - Moderate reflux esophagitis with no bleeding. Biopsied. Recommendation: - Discharge patient to home. - Resume previous diet. - Continue present medications. - Telephone my office for pathology results in 1 week. Procedure Code(s): --- Professional --- 23202, Esophagogastroduodenoscopy , flexible, transoral; with biopsy, single or multiple CPT copyright 2020 [employer]. All rights reserved. The codes documented in this report are preliminary and upon medical doctor md review may be revised to meet current compliance requirements. Attending Participation: I personally performed the entire procedure. Scope In: 2:11:06 PM Scope Out: 2:16:26 PM MD Wu Arcos MD 07/31/2024 2:35:56 PM Thi (more content not included)... [facility] Radiology Study observation (narrative) [facility] Flexible sigmoidoscopy study on 07-31-2024 [facility] Patient Name: Savana Patel Procedure Date: 07/31/2024 2:19 PM Date of : 1950 Admit Type: Outpatient Age: 74 Room: [facility] Gender: Female Note Status: Finalized Attending MD: Wu Moe MD, [id number] Procedure: Colonoscopy Indications: Hematochezia Providers: Wu Moe MD Patient Profile: This is a 74 year old female. Refer to note in patient chart for documentation of history and physical. Last Colonoscopy: date unknown. Unable to locate last colonoscopy report. Referring Physician: Wu Moe MD (Referring MD) Medicines: Monitored Anesthesia Care Complications: No immediate complications. Requesting Provider: Procedure: Pre-Anesthesia Assessment: - Prior to the procedure, a History and Physical was performed, and patient medications and allergies were reviewed. The patient is competent. The risks and benefits of the procedure and the sedation options and risks were discussed with the patient. All questions were answered and informed consent was obtained. Patient identification and proposed procedure were verified by the physician, the nurse and the equal opportunity officer in the procedure room. Prophylactic Antibiotics: The patient does not require prophylactic antibiotics. Prior Anticoagulants: The patient has taken no anticoagulant or antiplatelet agents. ASA Grade Assessment: III - A patient with severe systemic disease. After reviewing the risks and benefits, the patient was deemed in satisfactory condition to undergo the procedure. The anesthesia plan was to use monitored anesthesia care (MAC). Immediately prior to administration of medications, the patient was re-assessed for adequacy to receive sedatives. The heart rate, respiratory rate, oxygen saturations, blood pressure, adequacy of pulmonary ventilation, and response to care were monitored throughout the procedure. The physical status of the patient was re-assessed after the procedure. After I obtained informed consent, the scope was passed under direct vision. Throughout the procedure, the patient's blood pressure, pulse, and oxygen saturations were monitored continuously. The Colonoscope was introduced through the anus and advanced to the ileocolonic anastomosis. The colonoscopy was performed without difficulty. The patient tolerated the procedure well. The terminal ileum and the rectum were photographed. The quality of the bowel preparation was good. Scope Withdrawal Time: 0 hours 5 minutes 5 seconds Moderate Sedation: MAC anesthesia was administered by the anesthesia team. Total Procedure Duration: 0 hours 9 minutes 14 seconds Findings: The perianal and digital rectal examinations were normal. There was evidence of a prior end-to-side ileo-colonic anastomosis in the proximal ascending colon. This was patent and was characterized by healthy appearing mucosa. The anastomosis was traversed. The terminal ileum appeared normal. The colon (entire examined portion) appeared normal. Hemorrhoids were found during retroflexion. The hemorrhoids were moderate. Impression: - Patent end-to-side ileo-colonic anastomosis, characterized by healthy appearing mucosa. - The examined portion of the ileum was normal. - The entire examined colon is normal. - Hemorrhoids. - No specimens collected. Recommendation: - Discharge patient to home. - Resume previous diet. - Continue present medications. - Repeat colonoscopy. - Telephone my office for pathology results in 1 week. - Patient has a contact number available for emergencies. The signs and symptoms of potential (more content not included)... [facility] Radiology Study observation (narrative) [facility] HISTORY PHYSICALon HISTORY PHYSICAL HNO ID: [id number] Author: WU MOE MD Service: General Surgery Author Type: Physician Type: H&P Filed: 07/31/2024 13:51 Note Text: HISTORY AND PHYSICAL Savana Patel 1950 REFERRING PHYSICIAN: Js Cruz DO CHIEF COMPLAINT: Consult HPI: The patient is a 74 year old female referred for endoscopy. Savana notes rectal bleeding for 2 days duration following a paracentesis. The patient receives paracentesis regularly had approximately 1 L of fluid withdrawn. The patient then noted bright red blood per rectum following those movements. She denies melena. The patient has been doing well since that time. [facility]. The patient notes reflux symptoms which worsen as her ascites builds and is improved after paracentesis Savana has undergone prior endoscopy. 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 She then underwent an open right hemicolectomy for cecal volvulus on July 14, 2023. Dr. Craft was able to free up the volvulized cecum and resect a few loops of ileum which were felt to be involved in the malignant process. He performed a stapled reanastomosis. Dr. Cote performed tumor debulking and right ureter tumor lysis at the same procedure. Pathology from that procedure returned as: FINAL DIAGNOSIS A. 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 B. 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 C. 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 - Background small bowel with acute serositis, possibly procedure-related. - Appendix with fibrous obliteration. - Thirteen lymph nodes, negative for malignancy (0/13). D. Fascia, anterior abdominal wall, excision: - Fat necrosis with associated dystrophic calcification, negative for malignancy. The patient is being seen by me today at the request of Dr. Cruz for my opinion and advice regarding rectal bleeding and reflux. PAST MEDICAL HISTORY PAST MEDICAL HISTORY Diagnosis Date Actinic keratosis 04/12/2007 Advance directive discussed with patient 08/24/2022 Discussed 08/2022: Up to date DEANDRE positive 07/25/2016 Rheum felt just Arthritis. 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 Constipation 04/04/2015 Dysmetabolic syndrome X 12/28/2007 Essential hypertension 04/04/2015 GERD without esophagitis 07/24/2020 Hemorrhage of gastrointestinal tract, unspecified History of left mastectomy 05/05/2018 Impaired fasting glucose 11/21/2007 Internal hemorrhoids without mention of complication Iron deficiency anemia due to chronic blood loss 09/02/2023 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 Leg cramps 01/08/2020 Living will on file 07/31/2021 DPA: Javier ( ) Malignant neoplasm of both ovaries (HCC) 10/26/2018 Mixed hyperlipidemia 04/04/2015 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 multiple joints 07/27/2016 Osteopenia 12/28/2012 Other acne 05/29/2008 Other seborrheic keratosis 02/18/2007 Panic attacks 07/18/2012 Primary insomnia 01/29/2022 S/P colectomy 08/06/2023 SOLAR LENGINES///DYSCHROMIA OTHER 02/18/2007 Thrombocytopenia (HCC) 01/29/2022 chronic Trigger ring finger of left hand 07/24/2020 Trigger ring finger of right hand 07/24/2020 PAST SURGICAL HISTORY PAST SURGICAL HISTORY Procedure Laterality Date BX BREAST PERC VACUUM/ROTN 10/26/2007 LEFT COLONOSCOPY FLX DX W/COLLJ SPEC WHEN PFRMD 07/20/2005 COLONOSCOPY FLX DX W/COLLJ SPEC WHEN PFRMD 05/01/2016 normal - 10 year follow up LAPAROSCOPIC HEMICOLECTOMY Right 06/2023 LIG/TRNSXJ FLP TUBE ABDL/VAG APPR UNI/BI Tubal ligation MAST RAD W/PECTORAL MUSCLES AXILLARY LYMPH NODES 11/2007 Left PAST SURGICAL HISTORY OF BACK SURGERY PAST SURGICAL HISTORY OF 10/06/2018 Exploratory laparotomy, total abdominal hysterectomy, bilateral salpingooophorectomy, and bladder and posterior culdesac peritoneum resected en bloc, omentectomy PLCMT LOCALZTN CLIP,PERC,DURING BREAST BX 10/26/2007 LEFT S PORT-A-CATH [id number] 11/09/2018 TONSILLECTOMY PRIMARY/SECONDARY Tonsillectomy CURRENT MEDICATIONS Current Outpatient Medications Medication Sig ondansetron (ZOFRAN) 8 mg tablet Take 1 tablet by mouth every 8 hours as needed for nausea/vomiting. acetaminophen (TYL (more content not included)... [facility] No Panel Informationon 07-31 IMPRESSION: 1. There is persistent ascites throughout the abdomen and pelvis, that is mildly decreased in volume compared to prior exam. However, a masslike soft tissue structure within the left retroperitoneum appears new from prior exam. The inferior portion of this finding is intimate with adjacent small bowel loops, and as such, may reflect collapsed bowel. However, the appearance is more concerning for additional metastatic carcinomatosis. This, along with few soft tissue deposits of the peritoneum that are mildly increased in size, and mild increase in size of multiple mesenteric lymph nodes, as detailed above, is concerning for disease progression. 2. Few scattered upper abdominal small bowel loops are dilated to 3 cm. These eventually taper down to compress loops of bowel into the pelvis. However, no rk transition point is seen. Findings may be artifactual, however, a low-grade obstruction is not excluded. 3. No evidence of metastatic disease in the chest. However, the previously seen subpleural reticular and nodular opacities at the lateral periphery of the right upper lobe are again demonstrated and grossly unchanged from prior exam. These findings remain indeterminate and attention on follow-up imaging is recommended. Security Ambassador: SUMMER Transcribe Date/Time: Jul 31 2024 11:27A Dictated by : JUANITA DICK MD This examination was interpreted and the report reviewed and electronically signed by: JUANITA DICK MD on Jul 31 2024 12:41PM EST DIVISION OF RADIOLOGY No Panel InformationOrdered By: Ccf Provider on 07-31-2024 [facility] Pathology biopsy report Jalil (Tiss)on 07-31-2024 CASE REPORT [facility] Comment on above: Order Comment: Pete tilley Type: TISSUE SPECIMENOrdering Facility: [facility] Address: [address] [place] [address] Result Comment: [facility]urg [facility] Pathology Report Case: [id number] Authorizing Provider: Wu Moe MD Collected: 07/31/2024 02:13 PM [facility] Received: 07/31/2024 02:55 PM Pathologist: James Milian MD Specimens: A) - Stomach, Antrum, Biopsy B) - Esophagus, Distal, Biopsy Performed By: #### 6 [id number] ####[facility] [id number] [address] FINAL DIAGNOSIS [facility] Comment on above: Order Comment: Pete tilley Type: TISSUE SPECIMENOrdering Facility: [facility] Address: [address] [place] [address] Result Comment: A. G astric antrum, biopsy: - Oxyntic and antral mucosa with no significant diagnostic alteration. - No morphologic evidence of Helicobacter pylori organisms. B. Distal esophagus, biopsy: - Reactive squamous mucosa with no significant inflammation. - No evidence of eosinophilia. at 1632 EST Performed By: #### 6 [id number] ####[facility] LABIA [id number] [address] OF [facility] FINAL PERFORMING LAB [facility] Comment on above: Order Comment: Speci men Type: TISSUE SPECIMENOrdering Facility: [facility] Address: [address] [place] [address] Result Comment: Diag nostic interpretation performed at: [facility], [address] [place] [address] CLIA# [id number] Gum Worker: Vladimir Almaguer MD Performed By: #### 6 [id number] ####[facility] LABCLIA [id number] [address] [place] [facility] [facility] Comment on above: Order Comment: Speci men Type: TISSUE SPECIMENOrdering Facility: [facility] Address: [address] [place] [address] Result Comment: A. S tomach, Antrum, Biopsy Received in formalin are two pieces of garcia garcia-white soft tissue aggregating to 0.4 x 0.3 x 0.1 cm. Totally submitted in one cassette. B. Esophagus, Distal, Biopsy Received in formalin are two pieces of garcia-white soft tissue aggregating to 0.5 x 0.3 x 0.1 cm. Totally submitted in one cassette. [facility] July 31, 2024 9:55 PM [place] [address] Performed By: #### 6 6121-5 ####[facility] LABCLIA [id number] [place] [address] [place] Upper GI endoscopy 025 Upper GI endoscopy [facility] Patient Name: Savana Patel Procedure Date: 07/31/2024 1:51 PM Date of : 1950 Admit Type: Outpatient Age: 74 Room: [facility] Gender: Female Note Status: Finalized Attending MD: Wu Moe MD, [id number] Procedure: Upper GI endoscopy Indications: Suspected esophageal reflux Providers: Wu Moe MD Patient Profile: This is a 74 year old female. Refer to note in patient chart for documentation of history and physical. Referring Physician: Wu Moe MD (Referring MD) Medicines: Monitored Anesthesia Care Complications: No immediate complications. Requesting Provider: Procedure: Pre-Anesthesia Assessment: - Prior to the procedure, a History and Physical was performed, and patient medications and allergies were reviewed. The patient is competent. The risks and benefits of the procedure and the sedation options and risks were discussed with the patient. All questions were answered and informed consent was obtained. Patient identification and proposed procedure were verified by the physician, the nurse and the equal opportunity officer in the procedure room. Prophylactic Antibiotics: The patient does not require prophylactic antibiotics. Prior Anticoagulants: The patient has taken no anticoagulant or antiplatelet agents. ASA Grade Assessment: III - A patient with severe systemic disease. After reviewing the risks and benefits, the patient was deemed in satisfactory condition to undergo the procedure. The anesthesia plan was to use monitored anesthesia care (MAC). Immediately prior to administration of medications, the patient was re-assessed for adequacy to receive sedatives. The heart rate, respiratory rate, oxygen saturations, blood pressure, adequacy of pulmonary ventilation, and response to care were monitored throughout the procedure. The physical status of the patient was re-assessed after the procedure. After obtaining informed consent, the endoscope was passed under direct vision. Throughout the procedure, the patient's blood pressure, pulse, and oxygen saturations were monitored continuously. The Endoscope was introduced through the mouth, and advanced to the jejunum. The upper GI endoscopy was accomplished without difficulty. The patient tolerated the procedure well. Moderate Sedation: MAC anesthesia was administered by the anesthesia team. Total Procedure Duration: 0 hours 5 minutes 20 seconds Findings: The examined jejunum was normal. The examined duodenum was normal. Scattered mild inflammation characterized by erosions and erythema was found in the entire examined stomach. A small hiatal hernia was present. Moderate esophagitis with no bleeding was found in the lower third of the esophagus. Biopsies were taken with a cold forceps for histology. Impression: - Normal examined jejunum. - Normal examined duodenum. - Gastritis, characterized by erosions and erythema. - Small hiatal hernia. - Moderate reflux esophagitis with no bleeding. Biopsied. Recommendation: - Discharge patient to home. - Resume previous diet. - Continue present medications. - Telephone my office for pathology results in 1 week. Procedure Code(s): --- Professional --- 18700, Esophagogastroduodenoscopy , flexible, transoral; with biopsy, single or multiple CPT copyright 2020 [employer]. All rights reserved. The codes documented in this report are preliminary and upon medical doctor md review may be revised to meet current compliance requirements. Attending Participation: I personally performed the entire procedure. Scope In: 2:11:06 PM Scope Out: 2:16:26 PM MD Wu Arcos MD 07/31/2024 2:35:56 PM This report has been signed electronically by Wu Moe MD Number of Addenda: 0 Note Initiated On: 07/31/2024 1:51 PM Estimated Blood Loss: Estimated blood loss: none. [facility] CT Abdomen and Pelvis W cont rast Chiquis 07-28-2024 Radiology Study observation (narrative) [facility] CT Chest W contrast Chiquis Radiology Study observation (narrative) [facility] BRIEF OP NOTon 07-25-2024 BRIEF OP NOT HNO ID: [id number] Author: CORINNE TEMPLETON APRN.CNP Service: Interventional Radiology Author Type: Nurse Practitioner Type: Brief Op Note Filed: 07/25/2024 10:25 Note Text: BRIEF OP NOTE LOG ID: [id number] Surgery/Procedure Date: 07/25/2024 Incision/Procedure Start Time: 10:14 AM Incision Close/Procedure End Time: 10:20 AM Surgeon(s)/Proceduralist(s ) and Loan Associate(s): Corinne Templeton APRN.CNP Procedure(s): paracentesis Anesthesia: local 5 ml lidocaine Findings: RLQ 1500 ml clear yellow fluid Estimated Blood Loss: <3 ml Specimens: No Complications: none Pre-Op/Pre-Procedure Diagnosis: ascites Post-Op/Post-Procedure Diagnosis: same SIGNATURE: Corinne Templeton APRN.CNP PATIENT NAME: Savana Patel DATE: July 25, 2024 TIME: 10:25 AM PAGER/CONTACT #: [facility] US ASCITES SURVEYon 07-25-19 US ASCITES SURVEY * * *Final Report* * * DATE OF EXAM: Jul 25 2024 10:35AM CÉSAR 1016 - US ASCITES SURVEY / PROCEDURE REASON: Established Patient * * * * Physician Interpretation * * * * PROCEDURE: US ASCITES SURVEY INDICATION: Ascites TECHNIQUE: Multiple sonographic images of the abdomen/pelvis were obtained and stored in a permanent archive. IMPRESSION: Large volume ascites throughout the abdomen and pelvis Security Ambassador: [facility] Transcribe Date/Time: Jul 25 2024 3:33P Dictated by : ADAMARIS AKERS MD This examination was interpreted and the report reviewed and electronically signed by: ADAMARIS AKERS MD on Jul 25 2024 3:33PM EST [id number] [facility] US PARACENTESIS BIon 025 US PARACENTESIS BI * * *Final Report* * * DATE OF EXAM: Jul 25 2024 10:35AM MDU 2038 - US PARACENTESIS BI / PROCEDURE REASON: Established Patient * * * * Physician Interpretation * * * * EXAM TITLE: ULTRASOUND GUIDED PARACENTESIS CLINICAL HISTORY: Ascites PROCEDURE DATE: 07/25/2024 COMPARISON: Ascites survey dated 07/25/2024 Procedure Start Time and Sign In Time: 10:14 AM Procedure End Time and Sign Out Time: 10:20 AM TECHNIQUE: Informed consent was obtained from the patient. The patient was placed in a supine position and with ultrasound guidance an appropriate skin entry site in the right abdomen was identified, prepped, and anesthetized. With ultrasound guidance a 5-Albanian Yuey needle and sheath was passed into the peritoneal space and 1500 cc of clear yellow fluid was withdrawn. No specimens were sent for laboratory evaluation. There were no apparent complications. RESULT: Ultrasound revealed a generous amount of ascites containing no debris. IMPRESSION: Technically successful ultrasound guided paracentesis yielded 1500 cc of clear yellow fluid. Security Ambassador: [facility] Transcribe Date/Time: Jul 25 2024 10:42A Dictated by : CORINNE TEMPLETON CNP This examination was interpreted and the report reviewed and electronically signed by: CORINNE TEMPLETON CNP on Jul 25 2024 10:42AM EST [id number] [facility] CBC W Auto Differential pane l (Bld)on 07-20-2024 Basophils (Bld) [#/Vol] NINF [facility] Basophils/100 WBC (Bld) 0.5 % [facility] Differential cell count method Nom (Bld) Auto [facility] Eosinophils (Bld) [#/Vol] NINF [facility] Eosinophils/100 WBC (Bld) 0.5 % [facility] Erythrocyte distribution width (RBC) [Ratio] 17.4 % High 11.5 - 15.0 % [facility] Hematocrit (Bld) [Volume fraction] 29.9 % Low 36.0 - 46.0 % [facility] Hemoglobin (Bld) [Mass/Vol] 9.3 g/dL Low 11.5 - 15.5 g/dL [facility] Immature granulocytes (Bld) [#/Vol] NINF [facility] Immature granulocytes/100 WBC (Bld) 0.2 % [facility] Interpretation and review of laboratory results Abnormal [facility] Lymphocytes (Bld) [#/Vol] 1.15 10*3/uL [facility] Lymphocytes/100 WBC (Bld) 25.9 % [facility] MCH (RBC) [Entitic mass] 25.6 pg Low 26.0 - 34.[address] [facility] MCHC (RBC) [Mass/Vol] 31.1 g/dL 30.5 - 36.0 g/dL [facility] MCV (RBC) [Entitic vol] 82.4 fL 80.0 - 100.[address] [facility] Monocytes (Bld) [#/Vol] 0.42 10*3/uL [facility] Monocytes/100 WBC (Bld) 9.5 % [facility] Neutrophils (Bld) [#/Vol] 2.82 10*3/uL [facility] Neutrophils/100 WBC (Bld) 63.4 % [facility] Nucleated RBC (Bld) [#/Vol] NINF [facility] Nucleated RBC/100 WBC (Bld) [Ratio] 0.0 % /[address] [facility] Platelet mean volume (Bld) [Entitic vol] 10.3 fL 9.0 - 12.[address] [facility] Platelets (Bld) [#/Vol] 189 10*3/uL [facility] RBC (Bld) [#/Vol] 3.63 10*6/uL Low 3.90 - 5.2 0 m/uL [facility] WBC (Bld) [#/Vol] 4.44 10*3/uL [facility] CBC W Auto Differential pane l (Bld)on 07-07-2024 Basophils (Bld) [#/Vol] 10*3/uL Normal <0.11 [facility] Comment on above: Order Comment: Speci men Type: BLOOD SPECIMENOrdering Facility: [facility] Address: [address] [place] [address] Performed By: #### 5 7021-8 ####GOMEZ LABORATORYCLIA [id number] [place] [address] [place] Basophils/100 WBC (Bld) 0.2 % [facility] Comment on above: Order Comment: Speci men Type: BLOOD SPECIMENOrdering Facility: [facility] Address: [address] [place] [address] Performed By: #### 5 7021-8 ####GOMEZ LABORATORYCLIA [id number] [place] [address] [place] Differential cell count method Nom (Bld) Auto [facility] Comment on above: Order Comment: Speci men Type: BLOOD SPECIMENOrdering Facility: [facility] Address: [address] [place] [address] Performed By: #### 5 7021-8 ####GOMEZ LABORATORYCLIA [id number] [place] [address] [place] Eosinophils (Bld) [#/Vol] 10*3/uL Normal <0.46 [facility] Comment on above: Order Comment: Speci men Type: BLOOD SPECIMENOrdering Facility: [facility] Address: [address] [place] [address] Performed By: #### 5 7021-8 ####GOMEZ LABORATORYCLIA [id number] [place] [address] [place] Eosinophils/100 WBC (Bld) 0.5 % [facility] Comment on above: Order Comment: Speci men Type: BLOOD SPECIMENOrdering Facility: [facility] Address: [address] [place] [address] Performed By: #### 5 7021-8 ####GOMEZ LABORATORYCLIA [id number] [place] [address] [place] Erythrocyte distribution width (RBC) [Ratio] 17.1 % High 11.5-15.0 [facility] Comment on above: Order Comment: Speci men Type: BLOOD SPECIMENOrdering Facility: [facility] Address: [address] [place] [address] Performed By: #### 5 7021-8 ####GOMEZ LABORATORYCLIA [id number] [place] [address] [place] Hematocrit (Bld) [Volume fraction] 29.6 % Low 36.0-46.0 [facility] Comment on above: Order Comment: Speci men Type: BLOOD SPECIMENOrdering Facility: [facility] Address: [address] [place] [address] Performed By: #### 5 7021-8 ####GOMEZ LABORATORYCLIA [id number] [place] [address] [place] Hemoglobin (Bld) [Mass/Vol] 9.1 g/dL Low 11.5-15.5 [facility] Comment on above: Order Comment: Speci men Type: BLOOD SPECIMENOrdering Facility: [facility] Address: [address] [place] [address] Performed By: #### 5 7021-8 ####GOMEZ LABORATORYCLIA [id number] [place] [address] [place] Immature granulocytes (Bld) [#/Vol] 10*3/uL Normal <0.10 [facility] Comment on above: Order Comment: Speci men Type: BLOOD SPECIMENOrdering Facility: [facility] Address: [address] [place] [address] Performed By: #### 5 7021-8 ####GOMEZ LABORATORYCLIA [id number] [place] [address] [place] Immature granulocytes/100 WBC (Bld) 0.2 % [facility] Comment on above: Order Comment: Speci men Type: BLOOD SPECIMENOrdering Facility: [facility] Address: [address] [place] [address] Performed By: #### 5 7021-8 ####GOMEZ LABORATORYCLIA [id number] [place] [address] [place] Lymphocytes (Bld) [#/Vol] 0.91 10*3/uL Low 1.00-4.00 [facility] Comment on above: Order Comment: Speci men Type: BLOOD SPECIMENOrdering Facility: [facility] Address: [address] [place] [address] Performed By: #### 5 7021-8 ####GOMEZ LABORATORYCLIA [id number] [address] Lymphocytes/100 WBC (Bld) 22.2 % [facility] Comment on above: Order Comment: Speci men Type: BLOOD SPECIMENOrdering Facility: [facility] Address: [address] [place] [address] Performed By: #### 5 7021-8 ####GOMEZ LABORATORYCLIA [id number] [address] [place] MCH (RBC) [Entitic mass] 26.0 pg Normal 26.0-34.0 [facility] Comment on above: Order Comment: Speci men Type: BLOOD SPECIMENOrdering Facility: [facility] Address: [address] [place] [address] Performed By: #### 5 7021-8 ####GOMEZ LABORATORYCLIA [id number] [address] [place] MCHC (RBC) [Mass/Vol] 30.7 g/dL Normal 30.5-36.0 [facility] Comment on above: Order Comment: Speci men Type: BLOOD SPECIMENOrdering Facility: [facility] Address: [address] [place] [address] Performed By: #### 5 7021-8 ####GOMEZ LABORATORYCLIA [id number] [address] MCV (RBC) [Entitic vol] 84.6 fL Normal 80.0-100.0 [facility] Comment on above: Order Comment: Speci men Type: BLOOD SPECIMENOrdering Facility: [facility] Address: [address] [place] [address] Performed By: #### 5 7021-8 ####GOMEZ LABORATORYCLIA [id number] [address] Monocytes (Bld) [#/Vol] 0.35 10*3/uL Normal <0.87 [facility] Comment on above: Order Comment: Speci men Type: BLOOD SPECIMENOrdering Facility: [facility] Address: [address] [place] [address] Performed By: #### 5 7021-8 ####GOMEZ LABORATORYCLIA [id number] [place] [address] [place] Monocytes/100 WBC (Bld) 8.5 % [facility] Comment on above: Order Comment: Speci men Type: BLOOD SPECIMENOrdering Facility: [facility] Address: [address] [place] [address] Performed By: #### 5 7021-8 ####GOMEZ LABORATORYCLIA [id number] [place] [address] [place] Neutrophils (Bld) [#/Vol] 2.80 10*3/uL Normal 1.45-7.50 [facility] Comment on above: Order Comment: Speci men Type: BLOOD SPECIMENOrdering Facility: [facility] Address: [address] [place] [address] Performed By: #### 5 7021-8 ####GOMEZ LABORATORYCLIA [id number] [place] [address] [place] Neutrophils/100 WBC (Bld) 68.4 % [facility] Comment on above: Order Comment: Speci men Type: BLOOD SPECIMENOrdering Facility: [facility] Address: [address] [place] [address] Performed By: #### 5 7021-8 ####GOMEZ LABORATORYCLIA [id number] [place] [address] [place] Nucleated RBC (Bld) [#/Vol] 10*3/uL Normal <0.01 [facility] Comment on above: Order Comment: Speci men Type: BLOOD SPECIMENOrdering Facility: [facility] Address: [address] [place] [address] Performed By: #### 5 7021-8 ####GOMEZ LABORATORYCLIA [id number] [place] [address] [place] Nucleated RBC/100 WBC (Bld) [Ratio] 0.0 /100 WBC [facility] Comment on above: Order Comment: Speci men Type: BLOOD SPECIMENOrdering Facility: [facility] Address: [facility] [place] [address] Performed By: #### 5 7021-8 ####GOMEZ LABORATORYCLIA [id number] [address] Platelet mean volume (Bld) [Entitic vol] 10.0 fL Normal 9.0-12.7 [facility] Comment on above: Order Comment: Speci men Type: BLOOD SPECIMENOrdering Facility: [facility] Address: [address] [place] [address] Performed By: #### 5 7021-8 ####GOMEZ LABORATORYCLIA [id number] [address] [place] Platelets (Bld) [#/Vol] 166 10*3/uL Normal 150-400 [facility] Comment on above: Order Comment: Speci men Type: BLOOD SPECIMENOrdering Facility: [facility] Address: [address] [place] [address] Performed By: #### 5 7021-8 ####GOMEZ LABORATORYCLIA [id number] [address] [place] RBC (Bld) [#/Vol] 3.50 10*6/uL Low 3.90-5.20 [facility] Comment on above: Order Comment: Speci men Type: BLOOD SPECIMENOrdering Facility: [facility] Address: [facility] [place] [address] Performed By: #### 5 7021-8 ####GOMEZ LABORATORYCLIA [id number] [address] WBC (Bld) [#/Vol] 4.10 10*3/uL Normal 3.70-11.00 [facility] Comment on above: Order Comment: Speci men Type: BLOOD SPECIMENOrdering Facility: [facility] Address: [address] [place] [address] [place] [address] Performed By: #### 5 7021-8 ####GOMEZ LABORATORYCLIA [id number] [address] Comprehensive metabolic 2000 panelon 07-07-2024 Albumin [Mass/Vol] 3.7 g/dL Low 3.9-4.9 [facility] Comment on above: Order Comment: Speci men Type: BLOOD SPECIMENOrdering Facility: [facility] Address: [address] [place] [address] Performed By: #### 3 040-3, 08108-3 ####GOMEZ LABORATORYCLIA [id number] [address] [place] [facility] ALP [Catalytic activity/Vol] 80 U/L Normal 34-123 [facility] Comment on above: Order Comment: Speci men Type: BLOOD SPECIMENOrdering Facility: [facility] Address: [address] [place] [address] [place] [address] Performed By: #### 3 040-3, ####GOMEZ LABORATORYCLIA [id number] [address] ALT [Catalytic activity/Vol] 13 U/L Normal 7-38 [facility] Comment on above: Order Comment: Speci men Type: BLOOD SPECIMENOrdering Facility: [facility] Address: [address] [place] [address] [place] [address] Performed By: #### 3 040-3, 93698-7 ####GOMEZ LABORATORYCLIA [id number] [address] [place] [facility] Anion gap [Moles/Vol] 11 mmol/L Normal 8-15 [facility] Comment on above: Order Comment: Speci men Type: BLOOD SPECIMENOrdering Facility: [facility] Address: [address] [place] [address] [place] [address] Performed By: #### 3 040-3, 28900-0 ####GOMEZ LABORATORYCLIA [id number] [address] [place] AST [Catalytic activity/Vol] 24 U/L Normal 13-35 [facility] Comment on above: Order Comment: Speci men Type: BLOOD SPECIMENOrdering Facility: [facility] Address: [address] [place] [address] Performed By: #### 3 040-3, 83565-4 ####GOMEZ LABORATORYCLIA [id number] [place] [address] [place] Bilirubin [Mass/Vol] 0.5 mg/dL Normal 0.2-1.3 [facility] Comment on above: Order Comment: Speci men Type: BLOOD SPECIMENOrdering Facility: [facility] Address: [address] [place] [address] Performed By: #### 3 040-3, ####GOMEZ LABORATORYCLIA [id number] [place] [address] [place] Calcium [Mass/Vol] 9.3 mg/dL Normal 8.5-10.2 [facility] Comment on above: Order Comment: Speci men Type: BLOOD SPECIMENOrdering Facility: [facility] Address: [facility] [place] [address] Performed By: #### 3 3, ####GOMEZ LABORATORYCLIA [id number] [place] [address] [place] Chloride [Moles/Vol] 103 mmol/L Normal 98-107 [facility] Comment on above: Order Comment: Speci men Type: BLOOD SPECIMENOrdering Facility: [facility] Address: [address] [place] [address] Performed By: #### 3 3, ####GOMEZ LABORATORYCLIA [id number] [place] [address] [place] CO2 [Moles/Vol] 24 mmol/L Normal 22-30 [facility] Comment on above: Order Comment: Speci men Type: BLOOD SPECIMENOrdering Facility: [facility] Address: [address] [place] [address] Performed By: #### 3 040-3, ####GOMEZ LABORATORYCLIA [id number] [place] [address] [place] Creatinine [Mass/Vol] 0.86 mg/dL Normal 0.58-0.96 [facility] Comment on above: Order Comment: Speci men Type: BLOOD SPECIMENOrdering Facility: [facility] Address: [address] [place] [address] Performed By: #### 3 -3, 55779-3 ####GOMEZ LABORATORYCLIA [id number] [place] [id number] [place] Creatinine and Glomerular filtration rate.predicted panel (S/P/Bld) 71 mL/min/1.73m??? Normal >=60 [facility] Comment on above: Order Comment: Pete tilley Type: BLOOD SPECIMENOrdering Facility: [facility] Address: [address] [place] [address] Result Comment: Myranda mated Glomerular Filtration Rate (eGFR) is calculated using the 2020 CKD-EPI creatinine equation. This equation utilizes serum creatinine, sex, and age as parameters. The creatinine assay has traceable calibration to isotope dilution-mass spectrometry. Refer to KDIGO guidelines for clinical interpretation. In patients with unstable renal function, e.g. those with acute kidney injury, the eGFR may not accurately reflect actual GFR. Performed By: #### 3 040-3, 86606-7 ####GOMEZ LABORATORYCLIA [id number] [place] [id number] [place] Glucose [Mass/Vol] 83 mg/dL Normal 74-99 [facility] Comment on above: Order Comment: Pete tilley Type: BLOOD SPECIMENOrdering Facility: [facility] Address: [address] [place] [address] Result Comment: The [place] [employer] (ADA) provides guidance for cutoff values for fasting glucose and random glucose. The ADA defines fasting as no caloric intake for at least 8 hours. Fasting plasma glucose results between 100 to 125 mg/dL indicate increased risk for diabetes (prediabetes). Fasting plasma glucose results greater than or equal to 126 mg/dL meet the criteria for diagnosis of diabetes. In the absence of unequivocal hyperglycemia, results should be confirmed by repeat testing. In a patient with classic symptoms of hyperglycemia or hyperglycemic crisis, random plasma glucose results greater than or equal to 200 mg/dL meet the criteria for diagnosis of diabetes. Reference: Standards of Medical Care in Diabetes 2016, [place] [employer]. Diabetes Care. 2016.39(Suppl 1). Performed By: #### 3 040-3, 60928-6 ####GOMEZ LABORATORYCLIA [id number] [place] [address] [place] Potassium [Moles/Vol] 4.4 mmol/L Normal 3.7-5.1 [facility] Comment on above: Order Comment: Speci men Type: BLOOD SPECIMENOrdering Facility: [facility] Address: [address] [place] [address] Performed By: #### 3 040-3, 16182-8 ####GOMEZ LABORATORYCLIA [id number] [address] [place] [facility] Protein [Mass/Vol] 7.0 g/dL Normal 6.3-8.0 [facility] Comment on above: Order Comment: Speci men Type: BLOOD SPECIMENOrdering Facility: [facility] Address: [address] [place] [address] Performed By: #### 3 040-3, 93150-9 ####GOMEZ LABORATORYCLIA [id number] [address] Sodium [Moles/Vol] 138 mmol/L Normal 136-144 [facility] Comment on above: Order Comment: Speci men Type: BLOOD SPECIMENOrdering Facility: [facility] Address: [address] [place] [address] Performed By: #### 3 040-3, 29577-6 ####GOMEZ LABORATORYCLIA [id number] [address] [facility] Urea nitrogen [Mass/Vol] 21 mg/dL Normal 7-21 [facility] Comment on above: Order Comment: Speci men Type: BLOOD SPECIMENOrdering Facility: [facility] Address: [address] [place] [address] Performed By: #### 3 040-3, 97190-4 ####GOMEZ LABORATORYCLIA [id number] [place] [id number] [facility] [place] ED NOTEon 07-07-2024 ED NOTE HNO ID: [id number] Author: JAIME MANCUSO RN Service: ? Author Type: Registered Nurse Type: ED Notes Filed: 07/07/2024 12:28 Note Text: The patient verbalizes understanding of discharge instructions. No additional questions or concerns at this time. Patient Vital signs stable, no acute distress noted. Patient ambulatory out of ED. Prescription(S) x 0 given. [facility] ED NOTE HNO ID: [id number] Author: PATSY ZENDEJAS, SHEILA Service: Nursing Author Type: Registered Nurse Type: ED Notes Filed: 07/07/2024 10:41 Note Text: Assumed care of patient at this time. [facility] ED PROV NOTEon 07-07-2024 ED PROV NOTE HNO ID: [id number] Author: ANTHONY MCLAIN MD Service: ? Author Type: Physician Type: ED Provider Notes Filed: 07/07/2024 12:04 Note Text: ED Provider Note Patient Name: Savana Patel : 1950 SERVICE DATE: 07/07/24 History Patient presents with: Rectal Bleeding: BRBPR, x 2 days. Had Paracentesis on Wednesday. Patient presenting for evaluation secondary to rectal bleeding. Patient has a underlying history of multiple different types of cancer, is currently receiving chemotherapy received chemotherapy yesterday as well as a paracentesis were little over 1 L of was withdrawn from her abdomen. Patient states that she had a couple episodes of bright red bleeding with having bowel movements. She reports that she had a moderate amount of blood 1 time when she had a bowel movement, the next time she had a bowel movement she let go some blood and then had normal stool. She denies that she has melena. She denies any pain. She does have a history of hemorrhoids that are nontender. She is not anticoagulated. She had a normal bowel movement this morning without any bleeding. PAST MEDICAL HISTORY Diagnosis Date Actinic keratosis 04/12/2007 Advance directive discussed with patient 08/24/2022 Discussed 08/2022: Up to date DEANDRE positive 07/25/2016 Rheum felt just Arthritis. 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) 07/13/2019 [place] ANGIOMA///NEVUS, NON-NEOPLASTIC 02/18/2007 Constipation 04/04/2015 Dysmetabolic syndrome X 12/28/2007 Essential hypertension 04/04/2015 GERD without esophagitis 07/24/2020 Hemorrhage of gastrointestinal tract, unspecified History of left mastectomy 05/05/2018 Impaired fasting glucose 11/21/2007 Internal hemorrhoids without mention of complication Iron deficiency anemia due to chronic blood loss 09/02/2023 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 Leg cramps 01/08/2020 Living will on file 07/31/2021 DPA: Javier ( ) Malignant neoplasm of both ovaries (HCC) 10/26/2018 Mixed hyperlipidemia 04/04/2015 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 multiple joints 07/27/2016 Osteopenia 12/28/2012 Other acne 05/29/2008 Other seborrheic keratosis 02/18/2007 Panic attacks 07/18/2012 Primary insomnia 01/29/2022 S/P colectomy 08/06/2023 SOLAR LENGINES///DYSCHROMIA OTHER 02/18/2007 Thrombocytopenia (HCC) 01/29/2022 chronic Trigger ring finger of left hand 07/24/2020 Trigger ring finger of right hand 07/24/2020 PAST SURGICAL HISTORY Procedure Laterality Date BX BREAST PERC VACUUM/ROTN 10/26/2007 LEFT COLONOSCOPY FLX DX W/COLLJ SPEC WHEN PFRMD 07/20/2005 COLONOSCOPY FLX DX W/COLLJ SPEC WHEN PFRMD 05/01/2016 normal - 10 year follow up LAPAROSCOPIC HEMICOLECTOMY Right 06/2023 LIG/TRNSXJ FLP TUBE ABDL/VAG APPR UNI/BI Tubal ligation MAST RAD W/PECTORAL MUSCLES AXILLARY LYMPH NODES 11/2007 Left PAST SURGICAL HISTORY OF BACK SURGERY PAST SURGICAL HISTORY OF 10/06/2018 Exploratory laparotomy, total abdominal hysterectomy, bilateral salpingooophorectomy, and bladder and posterior culdesac peritoneum resected en bloc, omentectomy PLCMT LOCALZTN CLIP,PERC,DURING BREAST BX 10/26/2007 LEFT S PORT-A-CATH [id number] 11/09/2018 TONSILLECTOMY PRIMARY/SECONDARY Tonsillectomy FAMILY HISTORY Problem Relation Age of Onset Ovarian cancer Mother dx 50s Arthritis Father Cancer Maternal Aunt 7 aunts with breast or ovarian cancer. details unknown Social History Tobacco Use Smoking status: Never Passive exposure: Never Smokeless tobacco: Never Vaping Use Vaping status: Never Used Substance and Sexual Activity Alcohol use: Never Drug use: Never Sexual activity: Not Currently Partners: Male ALLERGIES Allergen Reactions Penicillins Rash Sulfa (Sulfonamide * Unknown Review of Systems Respiratory: Negative for shortness of breath. Gastrointestinal: Positive for blood in stool. Negative for abdominal pain and rectal pain. Neurological: Negative for syncope and light-headedness. Physical Exam Vitals [07/07/24 1033] BP Pulse Temp Temp src Resp SpO2 Weight Height 129/60 69 36.5 ?C (97.7 ?F) Temporal 16 98 % 54 kg (119 lb) -- Physical Exam Vitals and nursing note reviewed. Exam conducted with a machinery mover present. Constitutional: General: She is not in acute distress. Appearance: Normal appearance. She is well-developed. HENT: Head: Normocephalic and atraumatic. Nose: Nose normal. Mouth/Throat: Mouth: Mucous membranes are moist. Eyes: Conjunctiva/sclera: Conjunctivae normal. Pupils: Pupils are equal, round, and reactive to light. Cardiovascular: (more content not included)... [facility] Lipase SerPl-cCncon 07-07-19 25 Lipase [Catalytic activity/Vol] 32 U/L Normal 16-61 [facility] Comment on above: Order Comment: Speci men Type: BLOOD SPECIMENOrdering Facility: [facility] Address: [address] [place] [address] Performed By: #### 3 040-3, 50752-9 ####[facility] LABORATORYCLIA [id number] [place] [address] [place] OCCULT BLD EXAM-DIAGon 07-07 OCCULT BLD EXAM-DIAG Positive Abnormal [facility] Comment on above: Performed By: #### O BDX ####[facility]ORATORYCLIA [id number] [place] [address] [place] PT panel Coag (PPP)on 2024 INR Coag (PPP) [Relative time] 1.0 {INR} Normal 0.9-1.3 [facility] Comment on above: Order Comment: Speci men Type: BLOOD SPECIMENOrdering Facility: [facility] Address: [address] [place] [address] Result Comment: Ivanna min K Antagonist (VKA) Therapeutic Range: INR 2 to 3 (Target INR of 2.5) Note: For patients treated with VKA drugs, such as warfarin, the [place] [employer] 2012 Guideline recommends a therapeutic INR range of 2 to 3 (target INR of 2.5). This recommendation includes high-risk patients with antiphospholipid syndrome with previous arterial or venous thromboembolism, current-generation mechanical or bioprosthetic aortic heart valve replacement. Note: Patients with mechanical aortic valve replacement and additional risk factors for thromboembolic events (atrial fibrillation, previous thromboembolism, LV dysfunction, hypercoagulable conditions) or an older generation mechanical AVR (i.e., ball in-Cage) or any mechanical MVR should have a INR therapeutic range of 2.5 to 3.5 (target INR of 3). Karthik GH, et al. Chest 2012, 141:7S-47S Leigh PORTILLO et al. [facility] 2017, 70: 252-289 Performed By: #### 3 4528-0 ####[facility]ORATORYCLIA [id number] [place] [address] [place] PT Coag (PPP) [Time] 10.5 s Normal 9.7-13.0 [facility] Comment on above: Order Comment: Speci men Type: BLOOD SPECIMENOrdering Facility: [facility] Address: [address] [place] [address] Performed By: #### 3 4528-0 ####[facility]ORATORYCLIA [id number] [address] [place] CBC W Auto Differential pane l (Bld)on 07-04-2024 Basophils (Bld) [#/Vol] [facility] Basophils/100 WBC (Bld) 0.3 % [facility] Differential cell count method Nom (Bld) Auto [facility] Eosinophils (Bld) [#/Vol] 0.03 10*3/uL [facility] Eosinophils/100 WBC (Bld) 0.8 % [facility] Erythrocyte distribution width (RBC) [Ratio] 16.9 % High 11.5 - 15.0 % [facility] Hematocrit (Bld) [Volume fraction] 31.7 % Low 36.0 - 46.0 % [facility] Hemoglobin (Bld) [Mass/Vol] 9.9 g/dL Low 11.5 - 15.5 g/dL [facility] Immature granulocytes (Bld) [#/Vol] NINF [facility] Immature granulocytes/100 WBC (Bld) 0.6 % [facility] Interpretation and review of laboratory results Abnormal [facility] Lymphocytes (Bld) [#/Vol] 0.91 10*3/uL Low [facility] Lymphocytes/100 WBC (Bld) 25.4 % [facility] MCH (RBC) [Entitic mass] 26.2 pg 26.0 - 34.[address] [facility] MCHC (RBC) [Mass/Vol] 31.2 g/dL 30.5 - 36.0 g/dL [facility] MCV (RBC) [Entitic vol] 83.9 fL 80.0 - 100.[address] [facility] Monocytes (Bld) [#/Vol] 0.49 10*3/uL [facility] Monocytes/100 WBC (Bld) 13.7 % [facility] Neutrophils (Bld) [#/Vol] 2.12 10*3/uL [facility] Neutrophils/100 WBC (Bld) 59.2 % [facility] Nucleated RBC (Bld) [#/Vol] NINF [facility] Nucleated RBC/100 WBC (Bld) [Ratio] 0.0 % /[address] [facility] Platelet mean volume (Bld) [Entitic vol] 9.4 fL 9.0 - 12.[address] [facility] Platelets (Bld) [#/Vol] 118 10*3/uL Low [facility] RBC (Bld) [#/Vol] 3.78 10*6/uL Low 3.90 - 5.2 0 m/uL [facility] WBC (Bld) [#/Vol] 3.58 10*3/uL Low [facility] Comprehensive metabolic 2000 panelOrdered By: Janet Vick on 07-04-2024 Albumin [Mass/Vol] 3.8 g/dL Low 3.9 - 4.9 g/dL [facility] ALP [Catalytic activity/Vol] 81 U/L 34 - 123 U/L [facility] ALT [Catalytic activity/Vol] 9 U/L 7 - 38 U/L [facility] Anion gap [Moles/Vol] 9 mmol/L 8 - 15 mmol/L [facility] AST [Catalytic activity/Vol] 19 U/L 13 - 35 U/L [facility] Bilirubin [Mass/Vol] 0.4 mg/dL 0.2 - 1 .3 mg/dL [facility] Calcium [Mass/Vol] 9.5 mg/dL 8.5 - 10. 2 mg/dL [facility] Chloride [Moles/Vol] 101 mmol/L 98 - 10 7 mmol/L [facility] CO2 [Moles/Vol] 26 mmol/L 22 - 30 mmol/L [facility] Creatinine [Mass/Vol] 0.87 mg/dL 0.58 - 0.96 mg/dL [facility] GFR/1.73 sq M.predicted among non-blacks MDRD (S/P/Bld) [Vol rate/Area] 70 mL/min/{1.73_m2} - PINF [facility] Comment on above: Estimated Glomerular Filtration Rate (eGFR) is calculated using the 2020 CKD-EPI creatinine equation. This equation utilizes serum creatinine, sex, and age as parameters. The creatinine assay has traceable calibration to isotope dilution-mass spectrometry. Refer to KDIGO guidelines for clinical interpretation. In patients with unstable renal function, e.g. those with acute kidney injury, the eGFR may not accurately reflect actual GFR. Glucose [Mass/Vol] 112 mg/dL High 74 - 99 mg/dL [facility] Comment on above: The [place] Diab[employer] s Association (ADA) provides guidance for cutoff values for fasting glucose and random glucose. The ADA defines fasting as no caloric intake for at least 8 hours. Fasting plasma glucose results between 100 to 125 mg/dL indicate increased risk for diabetes (prediabetes). Fasting plasma glucose results greater than or equal to 126 mg/dL meet the criteria for diagnosis of diabetes. In the absence of unequivocal hyperglycemia, results should be confirmed by repeat testing. In a patient with classic symptoms of hyperglycemia or hyperglycemic crisis, random plasma glucose results greater than or equal to 200 mg/dL meet the criteria for diagnosis of diabetes. Reference: Standards of Medical Care in Diabetes 2016, [place] [employer]. Diabetes Care. 2016.39(Suppl 1). Interpretation and review of laboratory results Abnormal [facility] Potassium [Moles/Vol] 4.3 mmol/L 3.7 - 5.1 mmol/L [facility] Protein [Mass/Vol] 7.2 g/dL 6.3 - 8.0 g/dL [facility] Sodium [Moles/Vol] 136 mmol/L 136 - 144 mmol/L [facility] Urea nitrogen [Mass/Vol] 22 mg/dL High 7 - 21 mg/dL [facility] Guidance for paracentesis of Peritoneumon 07-03-2024 IMPRESSION: 1.6 L of fluid was removed. Security Ambassador: SUMMER Transcribe Date/Time: Jul 03 2024 12:59P Dictated by : MAIK AC MD This examination was interpreted and the report reviewed and electronically signed by: MAIK AC MD on Jul 03 2024 1:00PM [facility] * * *Final Report* * * DATE OF EXAM: Jul 03 2024 9:39AM [facility] [place] [facility] 2038 - US PARACENTESIS BI / PROCEDURE REASON: Follow Up * * * * Physician Interpretation * * * * HISTORY: Malignant ascites TECHNIQUE: Pre-procedure Sign-in: Safety Checklist Performed: Yes. The team confirmed the correct patient, correct site, site marking, correct procedure, and correct position. Timeout Time: 900 Sign-out: Communication performed: Yes. 10 mL 1% lidocaine was infused for local anesthesia. COMPARISON: 06/15/2024 CT abdomen pelvis RESULT: Fluid was tapped in the mid right flank under ultrasound guidance with a HomeSphereesis catheter. 1.6 L of clear straw-colored fluid was removed. Real-time scanning afterwards showed little remaining fluid [facility] Provider, Stanislaw beckham [place] - 07/03/2024 * * *Final Report* * * DATE OF EXAM: Jul 03 2024 9:39AM [facility] [place] - US PARACENTESIS BI / PROCEDURE REASON: Follow Up * * * * Physician Interpretation * * * * HISTORY: Malignant ascites TECHNIQUE: Pre-procedure Sign-in: Safety Checklist Performed: Yes. The team confirmed the correct patient, correct site, site marking, correct procedure, and correct position. Timeout Time: 900 Sign-out: Communication performed: Yes. 10 mL 1% lidocaine was infused for local anesthesia. COMPARISON: 06/15/2024 CT abdomen pelvis RESULT: Fluid was tapped in the mid right flank under ultrasound guidance with a HomeSphereesis catheter. 1.6 L of clear straw-colored fluid was removed. Real-time scanning afterwards showed little remaining fluid IMPRESSION IMPRESSION: 1.6 L of fluid was removed. Security Ambassador: [facility] Transcribe Date/Time: Jul 03 2024 12:59P Dictated by : MAIK AC MD This examination was interpreted and the report reviewed and electronically signed by: MAIK AC MD on Jul 03 2024 1:00PM EST [facility] Radiology Study observation (narrative) [facility] Guidance for paracentesis of PeritoneumOrdered By: Ccf Provider on 07-03-2024 [facility] US ASCITES SURVEYon 07-03-19 25 US ASCITES SURVEY * * *Final Report* * * DATE OF EXAM: Jul 03 2024 9:39AM [facility] 1016 - ASCITES SURVEY / PROCEDURE REASON: Follow Up * * * * Physician Interpretation * * * * HISTORY: Ascites, carcinoma of the ovary TECHNIQUE: Four-quadrant abdominal pelvic ultrasound with permanent recorded images COMPARISON: 06/15/2024 CT abdomen pelvis RESULT: Images demonstrate moderate generalized ascites. IMPRESSION: Ascites Security Ambassador: [facility] Transcribe Date/Time: Jul 03 2024 10:32A Dictated by : MAIK AC MD This examination was interpreted and the report reviewed and electronically signed by: MAIK AC MD on Jul 03 2024 10:33AM EST [id number] [facility] US Abdomenon 07-03-2024 IMPRESSION: Ascites Security Ambassador: [facility] Transcribe Date/Time: Jul 03 2024 10:32A Dictated by : MAIK AC MD This examination was interpreted and the report reviewed and electronically signed by: MAIK AC MD on Jul 03 2024 10:33AM EST [facility] * * *Final Report* * * DATE OF EXAM: Jul 03 2024 9:39AM [facility] - ASCITES SURVEY / PROCEDURE REASON: Follow Up * * * * Physician Interpretation * * * * HISTORY: Ascites, carcinoma of the ovary TECHNIQUE: Four-quadrant abdominal pelvic ultrasound with permanent recorded images COMPARISON: 06/15/2024 CT abdomen pelvis RESULT: Images demonstrate moderate generalized ascites. [facility] Provider, Stanislaw [facility] - 07/03/2024 * * *Final Report* * * DATE OF EXAM: Jul 03 2024 9:39AM [facility] - US ASCITES SURVEY / PROCEDURE REASON: Follow Up * * * * Physician Interpretation * * * * HISTORY: Ascites, carcinoma of the ovary TECHNIQUE: Four-quadrant abdominal pelvic ultrasound with permanent recorded images COMPARISON: 06/15/2024 CT abdomen pelvis RESULT: Images demonstrate moderate generalized ascites. IMPRESSION IMPRESSION: Ascites Security Ambassador: [facility] Transcribe Date/Time: Jul 03 2024 10:32A Dictated by : MAIK CA MD This examination was interpreted and the report reviewed and electronically signed by: MAIK AC MD on Jul 03 2024 10:33AM EST [facility] Radiology Study observation (narrative) [facility] US PARACENTESIS BIon 025 US PARACENTESIS BI * * *Final Report* * * DATE OF EXAM: Jul 03 2024 9:39AM [facility] 2038 - US PARACENTESIS BI / PROCEDURE REASON: Follow Up * * * * Physician Interpretation * * * * HISTORY: Malignant ascites TECHNIQUE: Pre-procedure Sign-in: Safety Checklist Performed: Yes. The team confirmed the correct patient, correct site, site marking, correct procedure, and correct position. Timeout Time: 900 Sign-out: Communication performed: Yes. 10 mL 1% lidocaine was infused for local anesthesia. COMPARISON: 06/15/2024 CT abdomen pelvis RESULT: Fluid was tapped in the mid right flank under ultrasound guidance with a [employer] [place] centesis catheter. 1.6 L of clear straw-colored fluid was removed. Real-time scanning afterwards showed little remaining fluid IMPRESSION: 1.6 L of fluid was removed. Security Ambassador: [facility] Transcribe Date/Time: Jul 03 2024 12:59P Dictated by : MAIK AC MD This examination was interpreted and the report reviewed and electronically signed by: MAIK AC MD on Jul 03 2024 1:00PM EST [id number] [facility] REFERRAL FOR ADDITIONAL BIOM ARKER AND MOLECULAR TESTINGOrdered By: Latoya Keyes on 06-30-[address] [facility] Comment on above: Request has been rec eived for evaluation and the results will be issued separately. [facility] CBC panel Auto (Bld)on 06-28 Erythrocyte distribution width (RBC) [Ratio] 16.9 % High 11.5 - 15.0 % [facility] Hematocrit (Bld) [Volume fraction] 28.2 % Low 36.0 - 46.0 % [facility] Hemoglobin (Bld) [Mass/Vol] 8.9 g/dL Low 11.5 - 15.5 g/dL [facility] Interpretation and review of laboratory results Abnormal [facility] MCH (RBC) [Entitic mass] 26.9 pg 26.0 - 34.[address] [facility] MCHC (RBC) [Mass/Vol] 31.6 g/dL 30.5 - 36.0 g/dL [facility] MCV (RBC) [Entitic vol] 85.2 fL 80.0 - 100.[address] [facility] Nucleated RBC (Bld) [#/Vol] NINF [facility] Platelet mean volume (Bld) [Entitic vol] 9.5 fL 9.0 - 12.[address] [facility] Platelets (Bld) [#/Vol] 182 10*3/uL [facility] RBC (Bld) [#/Vol] 3.31 10*6/uL Low 3.90 - 5.2 0 m/uL [facility] WBC (Bld) [#/Vol] 3.74 10*3/uL [facility] CNPNon 06-28-2024 JOSE LUISN Telephone (MEXR) -- SAVANA PATEL ([id number]) 1950 F Date Time Provider Department 06/28/24 REI TEJEDA During your visit today, we recorded the following information about you: Allergies As of Date: 06/28/2024 Noted Allergy Reaction PENICILLINS 06/08/2005 2 - Rash SULFA (SULFONAMIDE ANTIBIOTICS) 06/08/2005 16 - Unknown Date Reviewed: 06/28/2024 Reviewed by: Jennifer Patel OCCA - Fully Assessed Prescriptions as of 06/28/2024 - ondansetron (ZOFRAN) 8 mg tablet Take 1 tablet by mouth every 8 hours as needed for nausea/vomiting. - acetaminophen (TYLENOL) 500 mg tablet Take 2 tablets by mouth every 8 hours. - docusate sodium (COLACE ORAL) Take 1 tablet by mouth once daily as needed. Problem List As Of Date 06/28/2024 Noted Resolved Internal hemorrhoids without mention of complic* SOLAR LENGINES///DYSCHROMIA OTHER [L81.9] 02/18/2007 Other seborrheic keratosis [L82.1] 02/18/2007 [place] ANGIOMA///NEVUS, NON-NEOPLASTIC [I78.1] 02/18/2007 Actinic keratosis [L57.0] 04/12/2007 Abnormal mammogram, unspecified [R92.8] 10/25/2007 09/18/2014 BREAST CANCER UPPER OUTER(Left, 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] 11/01/2007 Impaired fasting glucose [R73.01] 11/21/2007 Dysmetabolic syndrome X [E88.810] 12/28/2007 Other acne [L70.8] 05/29/2008 Arthritis of knee, right [M17.11] 06/16/2012 Panic attacks [F41.0] 07/18/2012 Osteopenia [M85.80] 12/28/2012 Visit for routine employee relations consultant exam [Z01.419] 04/04/2015 Essential hypertension [I10] 04/04/2015 Mixed hyperlipidemia [E78.2] 04/04/2015 Constipation [K59.00] 04/04/2015 Well adult exam [Z00.00] 12/13/2015 07/13/2019 DEANDRE positive [R76.8] 07/25/2016 Osteoarthritis of multiple joints [M15.9] 07/27/2016 Medicare annual wellness visit, subsequent [Z00*07/01/2017 History of left mastectomy [Z90.12] 05/05/2018 Carcinomatosis (HCC) [C80.0] 10/06/2018 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]10/26/2018 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 Anemia [D64.9] 11/07/2018 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, 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 Leg cramps [R25.2] 01/08/2020 Hot flashes [R23.2] 01/08/2020 Bilateral hand numbness [R20.0] 01/08/2020 Trigger ring finger of left hand [M65.342] 07/24/2020 Trigger middle finger of right hand [M65.331] 07/24/2020 GERD without esophagitis [K21.9] 07/24/2020 Medication management [Z79.899] 07/24/2020 Living will on file [APY6039] 07/31/2021 Thrombocytopenia (HCC) [D69.6] 01/29/2022 07/30/2023 Primary insomnia [F51.01] 01/29/2022 Advance directive discussed with patient [Z71.8*08/24/2022 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 Comment on above: Vitamin K Antagonist (VKA) Therapeutic Range: INR 2 to 3 (Target INR of 2.5) Note: For patients treated with VKA drugs, such as warfarin, the [place] [employer] 2012 Guideline recommends a therapeutic INR range of 2 to 3 (target INR of 2.5). This recommendation includes high-risk patients with antiphospholipid syndrome with previous arterial or venous thromboembolism, current-generation mechanical or bioprosthetic aortic heart valve replacement. Note: Patients with mechanical aortic valve replacement and additional risk factors for thromboembolic events (atrial fibrillation, previous thromboembolism, LV dysfunction, hypercoagulable conditions) or an older generation mechanical AVR (i.e., ball in-Cage) or any mechanical MVR should have a INR therapeutic range of 2.5 to 3.5 (target INR of 3). Karthik BAHENA, et al. Chest 2012, 141:7S-47S Leigh PORTILLO et al. [facility] 2017, 70: 252-289 Interpretation and review of laboratory results Normal [facility] PT Coag (PPP) [Time] 10.2 s [facility] CBC W Auto Differential pane l (Bld)on 06-23-2024 Basophils (Bld) [#/Vol] [facility] Basophils/100 WBC (Bld) 0.2 % [facility] Differential cell count method Nom (Bld) Auto [facility] Eosinophils (Bld) [#/Vol] 0.04 10*3/uL [facility] Eosinophils/100 WBC (Bld) 0.9 % [facility] Erythrocyte distribution width (RBC) [Ratio] 17.4 % High 11.5 - 15.0 % [facility] Hematocrit (Bld) [Volume fraction] 31.4 % Low 36.0 - 46.0 % [facility] Hemoglobin (Bld) [Mass/Vol] 9.6 g/dL Low 11.5 - 15.5 g/dL [facility] Immature granulocytes (Bld) [#/Vol] [facility] Immature granulocytes/100 WBC (Bld) 0.2 % [facility] Interpretation and review of laboratory results Abnormal [facility] Lymphocytes (Bld) [#/Vol] 1.10 10*3/uL [facility] Lymphocytes/100 WBC (Bld) 24.5 % [facility] MCH (RBC) [Entitic mass] 26.0 pg 26.0 - 34.[address] [facility] MCHC (RBC) [Mass/Vol] 30.6 g/dL 30.5 - 36.0 g/dL [facility] MCV (RBC) [Entitic vol] 85.1 fL 80.0 - 100.[address] [facility] Monocytes (Bld) [#/Vol] 0.40 10*3/uL [facility] Monocytes/100 WBC (Bld) 8.9 % [facility] Neutrophils (Bld) [#/Vol] 2.93 10*3/uL [facility] Neutrophils/100 WBC (Bld) 65.3 % [facility] Nucleated RBC (Bld) [#/Vol] NINF [facility] Nucleated RBC/100 WBC (Bld) [Ratio] 0.0 % /[address] [facility] Platelet mean volume (Bld) [Entitic vol] 10.5 fL 9.0 - 12.[address] [facility] Platelets (Bld) [#/Vol] 176 10*3/uL [facility] RBC (Bld) [#/Vol] 3.69 10*6/uL Low 3.90 - 5.2 0 m/uL [facility] WBC (Bld) [#/Vol] 4.49 10*3/uL [facility] UA DIP, URINE (POC)on 2024 BILIRUBIN UA (POCT) Negative Negative [facility] CLARITY UA (POCT) [facility] COLOR UA (POCT) Yellow [facility] GLUCOSE UA (POCT) Negative Negative mg/dL [facility] Hemoglobin Ql (U) Negative Negative [facility] Interpretation and review of laboratory results Abnormal [facility] KETONE UA (POCT) Negative Negative mg/dL [facility] LEUKOCYTES UA (POCT) Negative Negative [facility] NITRITE UA (POCT) Negative Negative [facility] PH UA (POCT) 6.0 4.5 - 8.0 [facility] Protein Ql (U) 30 mg/dL Abnormal Negative [facility] SPECIFIC GRAVITY UA (POCT) 1.025 1.005 - 1.030 [facility] UROBILINOGEN UA (POCT) 0.2 Delmis l E.U./dL [facility] Location:[facility], [address] , [place], [address] [facility] POINT OF CARE [facility] UA DIP, URINE (POC)on 2023 BILIRUBIN UA (POCT) Negative Negative [facility] CLARITY UA (POCT) [facility] COLOR UA (POCT) Yellow [facility] GLUCOSE UA (POCT) Negative Negative mg/dL [facility] Hemoglobin Ql (U) Negative Negative [facility] Interpretation and review of laboratory results Abnormal [facility] KETONE UA (POCT) Trace Negative mg/dL [facility] LEUKOCYTES UA (POCT) Negative Negative [facility] NITRITE [facility]A (POCT) Negative Negative [facility] PH UA (POCT) 6.0 4.5 - 8.0 [facility] Protein Ql (U) 30 mg/dL Abnormal Negative [facility] SPECIFIC GRAVITY UA (POCT) 1.025 1.005 - 1.030 [facility] UROBILINOGEN UA (POCT) 0.2 Delmis l E.U./dL [facility] Location:[facility], [address] [facility], [place], [place], [id number] [place] [address] [facility] CBC W Auto Differential pane l (Bld)on 06-07-2024 Basophils (Bld) [#/Vol] [facility] Basophils/100 WBC (Bld) 0.5 % [facility] Differential cell count method Nom (Bld) Auto [facility] Eosinophils (Bld) [#/Vol] 0.04 10*3/uL [facility] Eosinophils/100 WBC (Bld) 1.0 % [facility] Erythrocyte distribution width (RBC) [Ratio] 17.5 % High 11.5 - 15.0 % [facility] Hematocrit (Bld) [Volume fraction] 29.8 % Low 36.0 - 46.0 % [facility] Hemoglobin (Bld) [Mass/Vol] 9.2 g/dL Low 11.5 - 15.5 g/dL [facility] Immature granulocytes (Bld) [#/Vol] [facility] Immature granulocytes/100 WBC (Bld) 0.3 % [facility] Interpretation and review of laboratory results Abnormal [facility] Lymphocytes (Bld) [#/Vol] 0.97 10*3/uL Low [facility] Lymphocytes/100 WBC (Bld) 24.6 % [facility] MCH (RBC) [Entitic mass] 26.4 pg 26.0 - 34.[address] [facility] MCHC (RBC) [Mass/Vol] 30.9 g/dL 30.5 - 36.0 g/dL [facility] MCV (RBC) [Entitic vol] 85.6 fL 80.0 - 100.[address] [facility] Monocytes (Bld) [#/Vol] 0.37 10*3/uL NINF [facility] Monocytes/100 WBC (Bld) 9.4 % [facility] Neutrophils (Bld) [#/Vol] 2.54 10*3/uL [facility] Neutrophils/100 WBC (Bld) 64.2 % [facility] Nucleated RBC (Bld) [#/Vol] NINF [facility] Nucleated RBC/100 WBC (Bld) [Ratio] 0.0 % /[address] [facility] Platelet mean volume (Bld) [Entitic vol] 10.2 fL 9.0 - 12.[address] [facility] Platelets (Bld) [#/Vol] 135 10*3/uL Low [facility] RBC (Bld) [#/Vol] 3.48 10*6/uL Low 3.90 - 5.2 0 m/uL [facility] WBC (Bld) [#/Vol] 3.95 10*3/uL [facility] Comprehensive metabolic 2000 panelOrdered By: Janet Vick on 06-07-2024 Albumin [Mass/Vol] 4.2 g/dL 3.9 - 4.9 g/dL [facility] ALP [Catalytic activity/Vol] 89 U/L 34 - 123 U/L [facility] ALT [Catalytic activity/Vol] 12 U/L 7 - 38 U/L [facility] Anion gap [Moles/Vol] 8 mmol/L 8 - 15 mmol/L [facility] AST [Catalytic activity/Vol] 22 U/L 13 - 35 U/L [facility] Bilirubin [Mass/Vol] 0.3 mg/dL 0.2 - 1 .3 mg/dL [facility] Calcium [Mass/Vol] 9.6 mg/dL 8.5 - 10. 2 mg/dL [facility] Chloride [Moles/Vol] 103 mmol/L 98 - 10 7 mmol/L [facility] CO2 [Moles/Vol] 26 mmol/L 22 - 30 mmol/L [facility] Creatinine [Mass/Vol] 0.73 mg/dL 0.58 - 0.96 mg/dL [facility] GFR/1.73 sq M.predicted among non-blacks MDRD (S/P/Bld) [Vol rate/Area] 86 mL/min/{1.73_m2} [facility] Comment on above: Estimated Glomerular Filtration Rate (eGFR) is calculated using the 2020 CKD-EPI creatinine equation. This equation utilizes serum creatinine, sex, and age as parameters. The creatinine assay has traceable calibration to isotope dilution-mass spectrometry. Refer to KDIGO guidelines for clinical interpretation. In patients with unstable renal function, e.g. those with acute kidney injury, the eGFR may not accurately reflect actual GFR. Glucose [Mass/Vol] 94 mg/dL 74 - 99 mg/dL [facility] Comment on above: The [place] [employer] (ADA) provides guidance for cutoff values for fasting glucose and random glucose. The ADA defines fasting as no caloric intake for at least 8 hours. Fasting plasma glucose results between 100 to 125 mg/dL indicate increased risk for diabetes (prediabetes). Fasting plasma glucose results greater than or equal to 126 mg/dL meet the criteria for diagnosis of diabetes. In the absence of unequivocal hyperglycemia, results should be confirmed by repeat testing. In a patient with classic symptoms of hyperglycemia or hyperglycemic crisis, random plasma glucose results greater than or equal to 200 mg/dL meet the criteria for diagnosis of diabetes. Reference: Standards of Medical Care in Diabetes 2016, [place] [employer]. Diabetes Care. 2016.39(Suppl 1). Interpretation and review of laboratory results Normal [facility] Potassium [Moles/Vol] 4.3 mmol/L 3.7 - 5.1 mmol/L [facility] Protein [Mass/Vol] 7.4 g/dL 6.3 - 8.0 g/dL [facility] Sodium [Moles/Vol] 137 mmol/L 136 - 144 mmol/L [facility] Urea nitrogen [Mass/Vol] 18 mg/dL 7 - 21 mg/dL [facility] CBC W Auto Differential pane l (Bld)on 05-25-2024 Basophils (Bld) [#/Vol] [facility] Basophils/100 WBC (Bld) 0.4 % [facility] Differential cell count method Nom (Bld) Auto [facility] Eosinophils (Bld) [#/Vol] 0.03 10*3/uL [facility] Eosinophils/100 WBC (Bld) 0.6 % [facility] Erythrocyte distribution width (RBC) [Ratio] 18.4 % High 11.5 - 15.0 % [facility] Hematocrit (Bld) [Volume fraction] 29.1 % Low 36.0 - 46.0 % [facility] Hemoglobin (Bld) [Mass/Vol] 9.0 g/dL Low 11.5 - 15.5 g/dL [facility] Immature granulocytes (Bld) [#/Vol] NINF [facility] Immature granulocytes/100 WBC (Bld) 0.0 % [facility] Interpretation and review of laboratory results Abnormal [facility] Lymphocytes (Bld) [#/Vol] 1.24 10*3/uL [facility] Lymphocytes/100 WBC (Bld) 25.7 % [facility] MCH (RBC) [Entitic mass] 26.5 pg 26.0 - 34.[address] [facility] MCHC (RBC) [Mass/Vol] 30.9 g/dL 30.5 - 36.0 g/dL [facility] MCV (RBC) [Entitic vol] 85.8 fL 80.0 - 100.[address] [facility] Monocytes (Bld) [#/Vol] 0.51 10*3/uL NINF [facility] Monocytes/100 WBC (Bld) 10.6 % [facility] Neutrophils (Bld) [#/Vol] 3.03 10*3/uL [facility] Neutrophils/100 WBC (Bld) 62.7 % [facility] Nucleated RBC (Bld) [#/Vol] NINF [facility] Nucleated RBC/100 WBC (Bld) [Ratio] 0.0 % /[address] [facility] Platelet mean volume (Bld) [Entitic vol] 10.9 fL 9.0 - 12.[address] [facility] Platelets (Bld) [#/Vol] 163 10*3/uL [facility] RBC (Bld) [#/Vol] 3.39 10*6/uL Low 3.90 - 5.2 0 m/uL [facility] WBC (Bld) [#/Vol] 4.83 10*3/uL [facility] UA DIP, URINE (POC)on 2023 BILIRUBIN UA (POCT) Negative Negative [facility] CLARITY UA (POCT) Clear [facility] COLOR UA (POCT) Yellow [facility] GLUCOSE UA (POCT) Negative Negative mg/dL [facility] Hemoglobin Ql (U) Negative Negative [facility] Interpretation and review of laboratory results Abnormal [facility] KETONE UA (POCT) 15 mg/dL Abnormal Negative [facility] LEUKOCYTES UA (POCT) Negative Negative [facility] NITRITE [facility]A (POCT) [facility] PH UA (POCT) 6.0 4.5 - 8.0 [facility] Protein Ql (U) 30 mg/dL Abnormal Negative [facility] SPECIFIC GRAVITY UA (POCT) 1.025 1.005 - 1.030 [facility] UROBILINOGEN UA (POCT) 0.2 Delmis l E.U./dL [facility] Location:[facility], [address] [facility], [place], [place], [id number] [place] [address] [facility] CBC W Auto Differential pane l (Bld)on 05-09-2024 Basophils (Bld) [#/Vol] [facility] Basophils/100 WBC (Bld) 0.3 % [facility] Differential cell count method Nom (Bld) Auto [facility] Eosinophils (Bld) [#/Vol] 0.03 10*3/uL [facility] Eosinophils/100 WBC (Bld) 0.8 % [facility] Erythrocyte distribution width (RBC) [Ratio] 18.7 % High 11.5 - 15.0 % [facility] Hematocrit (Bld) [Volume fraction] 30.4 % Low 36.0 - 46.0 % [facility] Hemoglobin (Bld) [Mass/Vol] 9.4 g/dL Low 11.5 - 15.5 g/dL [facility] Immature granulocytes (Bld) [#/Vol] [facility] Immature granulocytes/100 WBC (Bld) 0.3 % [facility] Interpretation and review of laboratory results Abnormal [facility] Lymphocytes (Bld) [#/Vol] 1.09 10*3/uL [facility] Lymphocytes/100 WBC (Bld) 28.8 % [facility] MCH (RBC) [Entitic mass] 26.6 pg 26.0 - 34.[address] [facility] MCHC (RBC) [Mass/Vol] 30.9 g/dL 30.5 - 36.0 g/dL [facility] MCV (RBC) [Entitic vol] 86.1 fL 80.0 - 100.[address] [facility] Monocytes (Bld) [#/Vol] 0.46 10*3/uL [facility] Monocytes/100 WBC (Bld) 12.2 % [facility] Neutrophils (Bld) [#/Vol] 2.18 10*3/uL [facility] Neutrophils/100 WBC (Bld) 57.6 % [facility] Nucleated RBC (Bld) [#/Vol] NINF [facility] Nucleated RBC/100 WBC (Bld) [Ratio] 0.0 % /[address] [facility] Platelet mean volume (Bld) [Entitic vol] 10.5 fL 9.0 - 12.[address] [facility] Platelets (Bld) [#/Vol] 151 10*3/uL [facility] RBC (Bld) [#/Vol] 3.53 10*6/uL Low 3.90 - 5.2 0 m/uL [facility] WBC (Bld) [#/Vol] 3.78 10*3/uL [facility] Comprehensive metabolic 2000 panelOrdered By: Janet Vick on 05-09-2024 Albumin [Mass/Vol] 4.2 g/dL 3.9 - 4.9 g/dL [facility] ALP [Catalytic activity/Vol] 84 U/L 34 - 123 U/L [facility] ALT [Catalytic activity/Vol] 13 U/L 7 - 38 U/L [facility] Anion gap [Moles/Vol] 10 mmol/L 8 - 15 mmol/L [facility] AST [Catalytic activity/Vol] 23 U/L 13 - 35 U/L [facility] Bilirubin [Mass/Vol] 0.5 mg/dL 0.2 - 1 .3 mg/dL [facility] Calcium [Mass/Vol] 9.8 mg/dL 8.5 - 10. 2 mg/dL [facility] Chloride [Moles/Vol] 104 mmol/L 98 - 10 7 mmol/L [facility] CO2 [Moles/Vol] 24 mmol/L 22 - 30 mmol/L [facility] Creatinine [Mass/Vol] 0.86 mg/dL 0.58 - 0.96 mg/dL [facility] GFR/1.73 sq M.predicted among non-blacks MDRD (S/P/Bld) [Vol rate/Area] 71 mL/min/{1.73_m2} - PINF [facility] Comment on above: Estimated Glomerular Filtration Rate (eGFR) is calculated using the 2020 CKD-EPI creatinine equation. This equation utilizes serum creatinine, sex, and age as parameters. The creatinine assay has traceable calibration to isotope dilution-mass spectrometry. Refer to KDIGO guidelines for clinical interpretation. In patients with unstable renal function, e.g. those with acute kidney injury, the eGFR may not accurately reflect actual GFR. Glucose [Mass/Vol] 94 mg/dL 74 - 99 mg/dL [facility] Comment on above: The [place] [employer] (ADA) provides guidance for cutoff values for fasting glucose and random glucose. The ADA defines fasting as no caloric intake for at least 8 hours. Fasting plasma glucose results between 100 to 125 mg/dL indicate increased risk for diabetes (prediabetes). Fasting plasma glucose results greater than or equal to 126 mg/dL meet the criteria for diagnosis of diabetes. In the absence of unequivocal hyperglycemia, results should be confirmed by repeat testing. In a patient with classic symptoms of hyperglycemia or hyperglycemic crisis, random plasma glucose results greater than or equal to 200 mg/dL meet the criteria for diagnosis of diabetes. Reference: Standards of Medical Care in Diabetes 2016, [place] [employer]. Diabetes Care. 2016.39(Suppl 1). Interpretation and review of laboratory results Abnormal [facility] Potassium [Moles/Vol] 4.3 mmol/L 3.7 - 5.1 mmol/L [facility] Protein [Mass/Vol] 7.5 g/dL 6.3 - 8.0 g/dL [facility] Sodium [Moles/Vol] 138 mmol/L 136 - 144 mmol/L [facility] Urea nitrogen [Mass/Vol] 25 mg/dL High 7 - 21 mg/dL [facility] CBC W Auto Differential pane l (Bld)on 05-03-2024 Basophils (Bld) [#/Vol] [facility] Basophils/100 WBC (Bld) 0.6 % [facility] Differential cell count method Nom (Bld) Auto [facility] Eosinophils (Bld) [#/Vol] [facility] Eosinophils/100 WBC (Bld) 0.6 % [facility] Erythrocyte distribution width (RBC) [Ratio] 18.0 % High 11.5 - 15.0 % [facility] Hematocrit (Bld) [Volume fraction] 28.5 % Low 36.0 - 46.0 % [facility] Hemoglobin (Bld) [Mass/Vol] 8.9 g/dL Low 11.5 - 15.5 g/dL [facility] Immature granulocytes (Bld) [#/Vol] [facility] Immature granulocytes/100 WBC (Bld) 0.3 % [facility] Interpretation and review of laboratory results Abnormal [facility] Lymphocytes (Bld) [#/Vol] 1.13 10*3/uL [facility] Lymphocytes/100 WBC (Bld) 34.2 % [facility] MCH (RBC) [Entitic mass] 26.6 pg 26.0 - 34.[address] [facility] MCHC (RBC) [Mass/Vol] 31.2 g/dL 30.5 - 36.0 g/dL [facility] MCV (RBC) [Entitic vol] 85.3 fL 80.0 - 100.[address] [facility] Monocytes (Bld) [#/Vol] 0.28 10*3/uL [facility] Monocytes/100 WBC (Bld) 8.5 % [facility] Neutrophils (Bld) [#/Vol] 1.84 10*3/uL [facility] Neutrophils/100 WBC (Bld) 55.8 % [facility] Nucleated RBC (Bld) [#/Vol] [facility] Nucleated RBC/100 WBC (Bld) [Ratio] 0.0 % /[address] [facility] Platelet mean volume (Bld) [Entitic vol] 9.4 fL 9.0 - 12.[address] [facility] Platelets (Bld) [#/Vol] 77 10*3/uL Low [facility] Comment on above: No clot detected. RBC (Bld) [#/Vol] 3.34 10*6/uL Low 3.90 - 5.2 0 m/uL [facility] WBC (Bld) [#/Vol] 3.30 10*3/uL Low [facility] CBC W Auto Differential pane l (Bld)on 04-26-2024 Basophils (Bld) [#/Vol] [facility] Basophils/100 WBC (Bld) 0.7 % [facility] Differential cell count method Nom (Bld) Auto [facility] Eosinophils (Bld) [#/Vol] 0.05 10*3/uL [facility] Eosinophils/100 WBC (Bld) 1.8 % [facility] Erythrocyte distribution width (RBC) [Ratio] 17.9 % High 11.5 - 15.0 % [facility] Hematocrit (Bld) [Volume fraction] 30.3 % Low 36.0 - 46.0 % [facility] Hemoglobin (Bld) [Mass/Vol] 9.5 g/dL Low 11.5 - 15.5 g/dL [facility] Immature granulocytes (Bld) [#/Vol] NINF [facility] Immature granulocytes/100 WBC (Bld) 0.4 % [facility] Interpretation and review of laboratory results Abnormal [facility] Lymphocytes (Bld) [#/Vol] 1.14 10*3/uL [facility] Lymphocytes/100 WBC (Bld) 40.7 % [facility] MCH (RBC) [Entitic mass] 26.8 pg 26.0 - 34.[address] [facility] MCHC (RBC) [Mass/Vol] 31.4 g/dL 30.5 - 36.0 g/dL [facility] MCV (RBC) [Entitic vol] 85.6 fL 80.0 - 100.[address] [facility] Monocytes (Bld) [#/Vol] 0.34 10*3/uL NINF [facility] Monocytes/100 WBC (Bld) 12.1 % [facility] Neutrophils (Bld) [#/Vol] 1.24 10*3/uL Low [facility] Neutrophils/100 WBC (Bld) 44.3 % [facility] Nucleated RBC (Bld) [#/Vol] NINF [facility] Nucleated RBC/100 WBC (Bld) [Ratio] 0.0 % /[address] [facility] Platelet mean volume (Bld) [Entitic vol] 9.6 fL 9.0 - 12.[address] [facility] Platelets (Bld) [#/Vol] 175 10*3/uL [facility] RBC (Bld) [#/Vol] 3.54 10*6/uL Low 3.90 - 5.2 0 m/uL [facility] WBC (Bld) [#/Vol] 2.80 10*3/uL Low [facility] Comprehensive metabolic 2000 panelOrdered By: Janet Vick on 04-26-2024 Albumin [Mass/Vol] 4.1 g/dL 3.9 - 4.9 g/dL [facility] ALP [Catalytic activity/Vol] 83 U/L 34 - 123 U/L [facility] ALT [Catalytic activity/Vol] 11 U/L 7 - 38 U/L [facility] Anion gap [Moles/Vol] 10 mmol/L 8 - 15 mmol/L [facility] AST [Catalytic activity/Vol] 22 U/L 13 - 35 U/L [facility] Bilirubin [Mass/Vol] 0.5 mg/dL 0.2 - 1 .3 mg/dL [facility] Calcium [Mass/Vol] 9.5 mg/dL 8.5 - 10. 2 mg/dL [facility] Chloride [Moles/Vol] 103 mmol/L 98 - 10 7 mmol/L [facility] CO2 [Moles/Vol] 25 mmol/L 22 - 30 mmol/L [facility] Creatinine [Mass/Vol] 0.81 mg/dL 0.58 - 0.96 mg/dL [facility] GFR/1.73 sq M.predicted among non-blacks MDRD (S/P/Bld) [Vol rate/Area] 76 mL/min/{1.73_m2} - PINF [facility] Comment on above: Estimated Glomerular Filtration Rate (eGFR) is calculated using the 2020 CKD-EPI creatinine equation. This equation utilizes serum creatinine, sex, and age as parameters. The creatinine assay has traceable calibration to isotope dilution-mass spectrometry. Refer to KDIGO guidelines for clinical interpretation. In patients with unstable renal function, e.g. those with acute kidney injury, the eGFR may not accurately reflect actual GFR. Glucose [Mass/Vol] 117 mg/dL High 74 - 99 mg/dL [facility] Comment on above: The [place] [employer] (ADA) provides guidance for cutoff values for fasting glucose and random glucose. The ADA defines fasting as no caloric intake for at least 8 hours. Fasting plasma glucose results between 100 to 125 mg/dL indicate increased risk for diabetes (prediabetes). Fasting plasma glucose results greater than or equal to 126 mg/dL meet the criteria for diagnosis of diabetes. In the absence of unequivocal hyperglycemia, results should be confirmed by repeat testing. In a patient with classic symptoms of hyperglycemia or hyperglycemic crisis, random plasma glucose results greater than or equal to 200 mg/dL meet the criteria for diagnosis of diabetes. Reference: Standards of Medical Care in Diabetes 2016, [place] [employer]. Diabetes Care. 2016.39(Suppl 1). Interpretation and review of laboratory results Abnormal [facility] Potassium [Moles/Vol] 4.3 mmol/L 3.7 - 5.1 mmol/L [facility] Protein [Mass/Vol] 7.3 g/dL 6.3 - 8.0 g/dL [facility] Sodium [Moles/Vol] 138 mmol/L 136 - 144 mmol/L [facility] Urea nitrogen [Mass/Vol] 19 mg/dL 7 - 21 mg/dL [facility] UA DIP, URINE (POC)on 2023 BILIRUBIN UA (POCT) Small Abnormal Negative [facility] CLARITY UA (POCT) Clear [facility] COLOR UA (POCT) Yellow [facility] GLUCOSE UA (POCT) Negative Negative mg/dL [facility] Hem[facility]l (U) [facility] Interpretation and review of laboratory results Abnormal [facility] KETONE UA (POCT) Trace Negative mg/dL [facility] LEUKOCYTES UA (POCT) Negative Negative [facility] NITRITE UA (POCT) Negative Negative [facility] PH UA (POCT) 6.0 4.5 - 8.0 [facility] Protein Ql (U) 100 mg/dL Abnormal Negative [facility] SPECIFIC GRAVITY UA (POCT) 1.020 1.005 - 1.030 [facility] UROBILINOGEN UA (POCT) 0.2 Delmis l E.U./dL [facility] Location:[facility], [address] [facility], [place], [place], [id number] [place] [address] [facility] CBC W Auto Differential pane l (Bld)on 04-20-2024 Basophils (Bld) [#/Vol] [facility] Basophils/100 WBC (Bld) 0.4 % [facility] Differential cell count method Nom (Bld) Auto [facility] Eosinophils (Bld) [#/Vol] 0.04 10*3/uL [facility] Eosinophils/100 WBC (Bld) 0.9 % [facility] Erythrocyte distribution width (RBC) [Ratio] 18.8 % High 11.5 - 15.0 % [facility] Hematocrit (Bld) [Volume fraction] 32.2 % Low 36.0 - 46.0 % [facility] Hemoglobin (Bld) [Mass/Vol] 10.0 g/dL Low 11.5 - 15.5 g/dL [facility] Immature granulocytes (Bld) [#/Vol] NINF [facility] Immature granulocytes/100 WBC (Bld) 0.2 % [facility] Interpretation and review of laboratory results Abnormal [facility] Lymphocytes (Bld) [#/Vol] 1.07 10*3/uL [facility] Lymphocytes/100 WBC (Bld) 23.6 % [facility] MCH (RBC) [Entitic mass] 26.5 pg 26.0 - 34.[address] [facility] MCHC (RBC) [Mass/Vol] 31.1 g/dL 30.5 - 36.0 g/dL [facility] MCV (RBC) [Entitic vol] 85.4 fL 80.0 - 100.[address] [facility] Monocytes (Bld) [#/Vol] 0.45 10*3/uL [facility] Monocytes/100 WBC (Bld) 9.9 % [facility] Neutrophils (Bld) [#/Vol] 2.95 10*3/uL [facility] Neutrophils/100 WBC (Bld) 65.0 % [facility] Nucleated RBC (Bld) [#/Vol] NINF [facility] Nucleated RBC/100 WBC (Bld) [Ratio] 0.0 % /[address] [facility] Platelet mean volume (Bld) [Entitic vol] 9.8 fL 9.0 - 12.[address] [facility] Platelets (Bld) [#/Vol] 165 10*3/uL [facility] RBC (Bld) [#/Vol] 3.77 10*6/uL Low 3.90 - 5.2 0 m/uL [facility] WBC (Bld) [#/Vol] 4.54 10*3/uL [facility] Comprehensive metabolic 2000 panelOrdered By: Janet Vick on 04-20-2024 Albumin [Mass/Vol] 4.1 g/dL 3.9 - 4.9 g/dL [facility] ALP [Catalytic activity/Vol] 85 U/L 34 - 123 U/L [facility] ALT [Catalytic activity/Vol] 16 U/L 7 - 38 U/L [facility] Anion gap [Moles/Vol] 13 mmol/L 8 - 15 mmol/L [facility] AST [Catalytic activity/Vol] 23 U/L 13 - 35 U/L [facility] Bilirubin [Mass/Vol] 0.5 mg/dL 0.2 - 1 .3 mg/dL [facility] Calcium [Mass/Vol] 9.5 mg/dL 8.5 - 10. 2 mg/dL [facility] Chloride [Moles/Vol] 103 mmol/L 98 - 10 7 mmol/L [facility] CO2 [Moles/Vol] 24 mmol/L 22 - 30 mmol/L [facility] Creatinine [Mass/Vol] 0.75 mg/dL 0.58 - 0.96 mg/dL [facility] GFR/1.73 sq M.predicted among non-blacks MDRD (S/P/Bld) [Vol rate/Area] 83 mL/min/{1.73_m2} - PINF [facility] Comment on above: Estimated Glomerular Filtration Rate (eGFR) is calculated using the 2020 CKD-EPI creatinine equation. This equation utilizes serum creatinine, sex, and age as parameters. The creatinine assay has traceable calibration to isotope dilution-mass spectrometry. Refer to KDIGO guidelines for clinical interpretation. In patients with unstable renal function, e.g. those with acute kidney injury, the eGFR may not accurately reflect actual GFR. Glucose [Mass/Vol] 99 mg/dL 74 - 99 mg/dL [facility] Comment on above: The [place] [employer] (ADA) provides guidance for cutoff values for fasting glucose and random glucose. The ADA defines fasting as no caloric intake for at least 8 hours. Fasting plasma glucose results between 100 to 125 mg/dL indicate increased risk for diabetes (prediabetes). Fasting plasma glucose results greater than or equal to 126 mg/dL meet the criteria for diagnosis of diabetes. In the absence of unequivocal hyperglycemia, results should be confirmed by repeat testing. In a patient with classic symptoms of hyperglycemia or hyperglycemic crisis, random plasma glucose results greater than or equal to 200 mg/dL meet the criteria for diagnosis of diabetes. Reference: Standards of Medical Care in Diabetes 2016, [place] [employer]. Diabetes Care. 2016.39(Suppl 1). Interpretation and review of laboratory results Abnormal [facility] Potassium [Moles/Vol] 4.3 mmol/L 3.7 - 5.1 mmol/L [facility] Protein [Mass/Vol] 7.3 g/dL 6.3 - 8.0 g/dL [facility] Sodium [Moles/Vol] 140 mmol/L 136 - 144 mmol/L [facility] Urea nitrogen [Mass/Vol] 23 mg/dL High 7 - 21 mg/dL [facility] CBC W Auto Differential pane l (Bld)on 04-06-2024 Basophils (Bld) [#/Vol] [facility] Basophils/100 WBC (Bld) 0.5 % [facility] Differential cell count method Nom (Bld) Auto [facility] Eosinophils (Bld) [#/Vol] 0.07 10*3/uL [facility] Eosinophils/100 WBC (Bld) 1.7 % [facility] Erythrocyte distribution width (RBC) [Ratio] 17.4 % High 11.5 - 15.0 % [facility] Hematocrit (Bld) [Volume fraction] 30.1 % Low 36.0 - 46.0 % [facility] Hemoglobin (Bld) [Mass/Vol] 9.6 g/dL Low 11.5 - 15.5 g/dL [facility] Immature granulocytes (Bld) [#/Vol] 0.03 10*3/uL [facility] Immature granulocytes/100 WBC (Bld) 0.7 % [facility] Interpretation and review of laboratory results Abnormal [facility] Lymphocytes (Bld) [#/Vol] 1.29 10*3/uL [facility] Lymphocytes/100 WBC (Bld) 32.0 % [facility] MCH (RBC) [Entitic mass] 26.7 pg 26.0 - 34.[address] [facility] MCHC (RBC) [Mass/Vol] 31.9 g/dL 30.5 - 36.0 g/dL [facility] MCV (RBC) [Entitic vol] 83.6 fL 80.0 - 100.[address] [facility] Monocytes (Bld) [#/Vol] 0.46 10*3/uL [facility] Monocytes/100 WBC (Bld) 11.4 % [facility] Neutrophils (Bld) [#/Vol] 2.16 10*3/uL [facility] Neutrophils/100 WBC (Bld) 53.7 % [facility] Nucleated RBC (Bld) [#/Vol] [facility] Nucleated RBC/100 WBC (Bld) [Ratio] 0.0 % /[address] [facility] Platelet mean volume (Bld) [Entitic vol] 9.2 fL 9.0 - 12.[address] [facility] Platelets (Bld) [#/Vol] 180 10*3/uL [facility] RBC (Bld) [#/Vol] 3.60 10*6/uL Low 3.90 - 5.2 0 m/uL [facility] WBC (Bld) [#/Vol] 4.03 10*3/uL [facility] UA DIP, URINE (POC)on 2023 BILIRUBIN UA (POCT) Negative Negative [facility] CLARITY UA (POCT) Clear [facility] COLOR UA (POCT) Yellow [facility] GLUCOSE UA (POCT) Negative Negative mg/dL [facility] Hemoglobin Ql (U) Negative Negative [facility] Interpretation and review of laboratory results Abnormal [facility] KETONE UA (POCT) Negative Negative mg/dL [facility] LEUKOCYTES UA (POCT) Trace Abnormal Negative [facility] NITRITE UA (POCT) Negative Negative [facility] PH UA (POCT) 6.0 4.5 - 8.0 [facility] Protein Ql (U) Trace Abnormal Negative mg/dL [facility] SPECIFIC GRAVITY UA (POCT) >=1.030 1.005 - 1.030 [facility] UROBILINOGEN UA (POCT) 0.2 Delmis l E.U./dL [facility] Location:[facility], [address] [facility], [place], [place], [id number] [place] [address] [facility] CBC W Auto Differential pane l (Bld)on 03-29-2024 Basophils (Bld) [#/Vol] NINF [facility] Basophils/100 WBC (Bld) 0.2 % [facility] Differential cell count method Nom (Bld) Auto [facility] Eosinophils (Bld) [#/Vol] 0.05 10*3/uL NINF [facility] Eosinophils/100 WBC (Bld) 1.2 % [facility] Erythrocyte distribution width (RBC) [Ratio] 18.1 % High 11.5 - 15.0 % [facility] Hematocrit (Bld) [Volume fraction] 31.4 % Low 36.0 - 46.0 % [facility] Hemoglobin (Bld) [Mass/Vol] 10.0 g/dL Low 11.5 - 15.5 g/dL [facility] Immature granulocytes (Bld) [#/Vol] NINF [facility] Immature granulocytes/100 WBC (Bld) 0.2 % [facility] Interpretation and review of laboratory results Abnormal [facility] Lymphocytes (Bld) [#/Vol] 1.22 10*3/uL [facility] Lymphocytes/100 WBC (Bld) 28.4 % [facility] MCH (RBC) [Entitic mass] 26.5 pg 26.0 - 34.[address] [facility] MCHC (RBC) [Mass/Vol] 31.8 g/dL 30.5 - 36.0 g/dL [facility] MCV (RBC) [Entitic vol] 83.1 fL 80.0 - 100.[address] [facility] Monocytes (Bld) [#/Vol] 0.54 10*3/uL [facility] Monocytes/100 WBC (Bld) 12.6 % [facility] Neutrophils (Bld) [#/Vol] 2.47 10*3/uL [facility] Neutrophils/100 WBC (Bld) 57.4 % [facility] Nucleated RBC (Bld) [#/Vol] NINF [facility] Nucleated RBC/100 WBC (Bld) [Ratio] 0.0 % /[address] [facility] Platelet mean volume (Bld) [Entitic vol] 9.7 fL 9.0 - 12.[address] [facility] Platelets (Bld) [#/Vol] 175 10*3/uL [facility] RBC (Bld) [#/Vol] 3.78 10*6/uL Low 3.90 - 5.2 0 m/uL [facility] WBC (Bld) [#/Vol] 4.30 10*3/uL [facility] Comprehensive metabolic 2000 panelOrdered By: Rafia Webber on 03-29-2024 Albumin [Mass/Vol] 4.3 g/dL 3.9 - 4.9 g/dL [facility] ALP [Catalytic activity/Vol] 82 U/L 34 - 123 U/L [facility] ALT [Catalytic activity/Vol] 12 U/L 7 - 38 U/L [facility] Anion gap [Moles/Vol] 11 mmol/L 8 - 15 mmol/L [facility] AST [Catalytic activity/Vol] 22 U/L 13 - 35 U/L [facility] Bilirubin [Mass/Vol] 0.5 mg/dL 0.2 - 1 .3 mg/dL [facility] Calcium [Mass/Vol] 9.8 mg/dL 8.5 - 10. 2 mg/dL [facility] Chloride [Moles/Vol] 104 mmol/L 98 - 10 7 mmol/L [facility] CO2 [Moles/Vol] 24 mmol/L 22 - 30 mmol/L [facility] Creatinine [Mass/Vol] 0.90 mg/dL 0.58 - 0.96 mg/dL [facility] GFR/1.73 sq M.predicted among non-blacks MDRD (S/P/Bld) [Vol rate/Area] 67 mL/min/{1.73_m2} - PINF [facility] Comment on above: Estimated Glomerular Filtration Rate (eGFR) is calculated using the 2020 CKD-EPI creatinine equation. This equation utilizes serum creatinine, sex, and age as parameters. The creatinine assay has traceable calibration to isotope dilution-mass spectrometry. Refer to KDIGO guidelines for clinical interpretation. In patients with unstable renal function, e.g. those with acute kidney injury, the eGFR may not accurately reflect actual GFR. Glucose [Mass/Vol] 93 mg/dL 74 - 99 mg/dL [facility] Comment on above: The [place] [employer] (ADA) provides guidance for cutoff values for fasting glucose and random glucose. The ADA defines fasting as no caloric intake for at least 8 hours. Fasting plasma glucose results between 100 to 125 mg/dL indicate increased risk for diabetes (prediabetes). Fasting plasma glucose results greater than or equal to 126 mg/dL meet the criteria for diagnosis of diabetes. In the absence of unequivocal hyperglycemia, results should be confirmed by repeat testing. In a patient with classic symptoms of hyperglycemia or hyperglycemic crisis, random plasma glucose results greater than or equal to 200 mg/dL meet the criteria for diagnosis of diabetes. Reference: Standards of Medical Care in Diabetes 2016, [place] [employer]. Diabetes Care. 2016.39(Suppl 1). Interpretation and review of laboratory results Abnormal [facility] Potassium [Moles/Vol] 4.3 mmol/L 3.7 - 5.1 mmol/L [facility] Protein [Mass/Vol] 7.5 g/dL 6.3 - 8.0 g/dL [facility] Sodium [Moles/Vol] 139 mmol/L 136 - 144 mmol/L [facility] Urea nitrogen [Mass/Vol] 25 mg/dL High 7 - 21 mg/dL [facility] CBC W Auto Differential pane l (Bld)on 03-16-2024 Basophils (Bld) [#/Vol] [facility] Basophils/100 WBC (Bld) 0.5 % [facility] Differential cell count method Nom (Bld) Auto [facility] Eosinophils (Bld) [#/Vol] 0.03 10*3/uL [facility] Eosinophils/100 WBC (Bld) 0.8 % [facility] Erythrocyte distribution width (RBC) [Ratio] 16.2 % High 11.5 - 15.0 % [facility] Hematocrit (Bld) [Volume fraction] 28.7 % Low 36.0 - 46.0 % [facility] Hemoglobin (Bld) [Mass/Vol] 9.2 g/dL Low 11.5 - 15.5 g/dL [facility] Immature granulocytes (Bld) [#/Vol] 0.05 10*3/uL [facility] Immature granulocytes/100 WBC (Bld) 1.3 % [facility] Interpretation and review of laboratory results Abnormal [facility] Lymphocytes (Bld) [#/Vol] 1.10 10*3/uL [facility] Lymphocytes/100 WBC (Bld) 27.6 % [facility] MCH (RBC) [Entitic mass] 26.4 pg 26.0 - 34.[address] [facility] MCHC (RBC) [Mass/Vol] 32.1 g/dL 30.5 - 36.0 g/dL [facility] MCV (RBC) [Entitic vol] 82.5 fL 80.0 - 100.[address] [facility] Monocytes (Bld) [#/Vol] 0.36 10*3/uL [facility] Monocytes/100 WBC (Bld) 9.0 % [facility] Neutrophils (Bld) [#/Vol] 2.43 10*3/uL [facility] Neutrophils/100 WBC (Bld) 60.8 % [facility] Nucleated RBC (Bld) [#/Vol] [facility] Nucleated RBC/100 WBC (Bld) [Ratio] 0.0 % /[address] [facility] Platelet mean volume (Bld) [Entitic vol] 10.6 fL 9.0 - 12.[address] [facility] Platelets (Bld) [#/Vol] 102 10*3/uL Low [facility] RBC (Bld) [#/Vol] 3.48 10*6/uL Low 3.90 - 5.2 0 m/uL [facility] WBC (Bld) [#/Vol] 3.99 10*3/uL [facility] CBC W Auto Differential pane l (Bld)on 03-09-2024 Basophils (Bld) [#/Vol] [facility] Basophils/100 WBC (Bld) 0.6 % [facility] Differential cell count method Nom (Bld) Auto [facility] Eosinophils (Bld) [#/Vol] [facility] Eosinophils/100 WBC (Bld) 0.6 % [facility] Erythrocyte distribution width (RBC) [Ratio] 15.7 % High 11.5 - 15.0 % [facility] Hematocrit (Bld) [Volume fraction] 29.8 % Low 36.0 - 46.0 % [facility] Hemoglobin (Bld) [Mass/Vol] 9.4 g/dL Low 11.5 - 15.5 g/dL [facility] Immature granulocytes (Bld) [#/Vol] 0.03 10*3/uL [facility] Immature granulocytes/100 WBC (Bld) 0.8 % [facility] Interpretation and review of laboratory results Abnormal [facility] Lymphocytes (Bld) [#/Vol] 1.34 10*3/uL [facility] Lymphocytes/100 WBC (Bld) 37.3 % [facility] MCH (RBC) [Entitic mass] 26.3 pg 26.0 - 34.[address] [facility] MCHC (RBC) [Mass/Vol] 31.5 g/dL 30.5 - 36.0 g/dL [facility] MCV (RBC) [Entitic vol] 83.2 fL 80.0 - 100.[address] [facility] Monocytes (Bld) [#/Vol] 0.44 10*3/uL [facility] Monocytes/100 WBC (Bld) 12.3 % [facility] Neutrophils (Bld) [#/Vol] 1.74 10*3/uL [facility] Neutrophils/100 WBC (Bld) 48.4 % [facility] Nucleated RBC (Bld) [#/Vol] [facility] Nucleated RBC/100 WBC (Bld) [Ratio] 0.0 % /[address] [facility] Platelet mean volume (Bld) [Entitic vol] 9.3 fL 9.0 - 12.[address] [facility] Platelets (Bld) [#/Vol] 230 10*3/uL [facility] RBC (Bld) [#/Vol] 3.58 10*6/uL Low 3.90 - 5.2 0 m/uL [facility] WBC (Bld) [#/Vol] 3.59 10*3/uL [facility] CBC W Auto Differential pane l (Bld)on 03-02-2024 Basophils (Bld) [#/Vol] [facility] Basophils/100 WBC (Bld) 0.3 % [facility] Differential cell count method Nom (Bld) Auto [facility] Eosinophils (Bld) [#/Vol] [facility] Eosinophils/100 WBC (Bld) 0.7 % [facility] Erythrocyte distribution width (RBC) [Ratio] 15.7 % High 11.5 - 15.0 % [facility] Hematocrit (Bld) [Volume fraction] 29.5 % Low 36.0 - 46.0 % [facility] Hemoglobin (Bld) [Mass/Vol] 9.4 g/dL Low 11.5 - 15.5 g/dL [facility] Immature granulocytes (Bld) [#/Vol] 0.03 10*3/uL [facility] Immature granulocytes/100 WBC (Bld) 1.0 % [facility] Interpretation and review of laboratory results Abnormal [facility] Lymphocytes (Bld) [#/Vol] 1.18 10*3/uL [facility] Lymphocytes/100 WBC (Bld) 38.8 % [facility] MCH (RBC) [Entitic mass] 26.2 pg 26.0 - 34.[address] [facility] MCHC (RBC) [Mass/Vol] 31.9 g/dL 30.5 - 36.0 g/dL [facility] MCV (RBC) [Entitic vol] 82.2 fL 80.0 - 100.[address] [facility] Monocytes (Bld) [#/Vol] 0.52 10*3/uL [facility] Monocytes/100 WBC (Bld) 17.1 % [facility] Neutrophils (Bld) [#/Vol] 1.28 10*3/uL Low [facility] Neutrophils/100 WBC (Bld) 42.1 % [facility] Nucleated RBC (Bld) [#/Vol] [facility] Nucleated RBC/100 WBC (Bld) [Ratio] 0.0 % /[address] [facility] Platelet mean volume (Bld) [Entitic vol] 9.0 fL 9.0 - 12.[address] [facility] Platelets (Bld) [#/Vol] 310 10*3/uL [facility] RBC (Bld) [#/Vol] 3.59 10*6/uL Low 3.90 - 5.2 0 m/uL [facility] WBC (Bld) [#/Vol] 3.04 10*3/uL Low [facility] CA 125 BLDon 02-29-2024 Cancer Ag 125 Qn 4551 [arb'U]/mL High [facility] - 3 9 U/mL [facility] Comment on above: CA 125 test methodol ogy used is the Electrochemiluminescence Immunoassay by [employer]. Results obtained with different methods or kits cannot be used interchangeably. The reference interval is based on the 95th percentile of 240 apparently healthy premenopausal and postmenopausal women. At a cutoff value of 65 U/mL, the test sensitivity to distinguish ovarian carcinoma (FIGO stage I to IV) versus benign gynecological disease is 79%, with a specificity of 82%. Reference: Cancer Antigen 125 (CA 125 II) [package insert V 1.0 [place]]. [employer], [place], [place] (March 2015) CBC W Auto Differential pane l (Bld)on 02-29-2024 Basophils (Bld) [#/Vol] [facility] Basophils/100 WBC (Bld) 0.4 % [facility] Differential cell count method Nom (Bld) Auto [facility] Eosinophils (Bld) [#/Vol] 0.03 10*3/uL [facility] Eosinophils/100 WBC (Bld) 1.1 % [facility] Erythrocyte distribution width (RBC) [Ratio] 15.3 % High 11.5 - 15.0 % [facility] Hematocrit (Bld) [Volume fraction] 30.2 % Low 36.0 - 46.0 % [facility] Hemoglobin (Bld) [Mass/Vol] 9.8 g/dL Low 11.5 - 15.5 g/dL [facility] Immature granulocytes (Bld) [#/Vol] NINF [facility] Immature granulocytes/100 WBC (Bld) 0.7 % [facility] Interpretation and review of laboratory results Abnormal [facility] Lymphocytes (Bld) [#/Vol] 1.17 10*3/uL [facility] Lymphocytes/100 WBC (Bld) 41.8 % [facility] MCH (RBC) [Entitic mass] 26.8 pg 26.0 - 34.[address] [facility] MCHC (RBC) [Mass/Vol] 32.5 g/dL 30.5 - 36.0 g/dL [facility] MCV (RBC) [Entitic vol] 82.5 fL 80.0 - 100.[address] [facility] Monocytes (Bld) [#/Vol] 0.53 10*3/uL NINF [facility] Monocytes/100 WBC (Bld) 18.9 % [facility] Neutrophils (Bld) [#/Vol] 1.04 10*3/uL Low [facility] Neutrophils/100 WBC (Bld) 37.1 % [facility] Nucleated RBC (Bld) [#/Vol] NINF [facility] Nucleated RBC/100 WBC (Bld) [Ratio] 0.0 % /[address] [facility] Platelet mean volume (Bld) [Entitic vol] 9.3 fL 9.0 - 12.[address] [facility] Platelets (Bld) [#/Vol] 260 10*3/uL [facility] RBC (Bld) [#/Vol] 3.66 10*6/uL Low 3.90 - 5.2 0 m/uL [facility] WBC (Bld) [#/Vol] 2.80 10*3/uL Low [facility] Cancer Ag 125 Qnon 4 Interpretation and review of laboratory results Abnormal [facility] Comprehensive metabolic 2000 panelOrdered By: Janet Vick on 02-29-2024 Albumin [Mass/Vol] 4.0 g/dL 3.9 - 4.9 g/dL [facility] ALP [Catalytic activity/Vol] 88 U/L 34 - 123 U/L [facility] ALT [Catalytic activity/Vol] 13 U/L 7 - 38 U/L [facility] Anion gap [Moles/Vol] 12 mmol/L 8 - 15 mmol/L [facility] AST [Catalytic activity/Vol] 24 U/L 13 - 35 U/L [facility] Bilirubin [Mass/Vol] 0.3 mg/dL 0.2 - 1 .3 mg/dL [facility] Calcium [Mass/Vol] 9.5 mg/dL 8.5 - 10. 2 mg/dL [facility] Chloride [Moles/Vol] 104 mmol/L 98 - 10 7 mmol/L [facility] CO2 [Moles/Vol] 20 mmol/L Low 22 - 30 mmol/L [facility] Creatinine [Mass/Vol] 0.73 mg/dL 0.58 - 0.96 mg/dL [facility] GFR/1.73 sq M.predicted among non-blacks MDRD (S/P/Bld) [Vol rate/Area] 86 mL/min/{1.73_m2} - PINF [facility] Comment on above: Estimated Glomerular Filtration Rate (eGFR) is calculated using the 2020 CKD-EPI creatinine equation. This equation utilizes serum creatinine, sex, and age as parameters. The creatinine assay has traceable calibration to isotope dilution-mass spectrometry. Refer to KDIGO guidelines for clinical interpretation. In patients with unstable renal function, e.g. those with acute kidney injury, the eGFR may not accurately reflect actual GFR. Glucose [Mass/Vol] 91 mg/dL 74 - 99 mg/dL [facility] Comment on above: The [place] [employer] (ADA) provides guidance for cutoff values for fasting glucose and random glucose. The ADA defines fasting as no caloric intake for at least 8 hours. Fasting plasma glucose results between 100 to 125 mg/dL indicate increased risk for diabetes (prediabetes). Fasting plasma glucose results greater than or equal to 126 mg/dL meet the criteria for diagnosis of diabetes. In the absence of unequivocal hyperglycemia, results should be confirmed by repeat testing. In a patient with classic symptoms of hyperglycemia or hyperglycemic crisis, random plasma glucose results greater than or equal to 200 mg/dL meet the criteria for diagnosis of diabetes. Reference: Standards of Medical Care in Diabetes 2016, [place] [employer]. Diabetes Care. 2016.39(Suppl 1). Interpretation and review of laboratory results Abnormal [facility] Potassium [Moles/Vol] 4.3 mmol/L 3.7 - 5.1 mmol/L [facility] Protein [Mass/Vol] 7.1 g/dL 6.3 - 8.0 g/dL [facility] Sodium [Moles/Vol] 136 mmol/L 136 - 144 mmol/L [facility] Urea nitrogen [Mass/Vol] 19 mg/dL 7 - 21 mg/dL [facility] UA DIP, URINE (POC)on 2023 BILIRUBIN UA (POCT) Negative Negative [facility] CLARITY [facility]POCT) [facility] COLOR UA (POCT) Yellow [facility] GLUCOSE UA (POCT) Negative Negative mg/dL [facility] Hemoglobin Ql (U) Negative Negative [facility] Interpretation and review of laboratory results Abnormal [facility] KETONE UA (POCT) Negative Negative mg/dL [facility] LEUKOCYTES UA (POCT) Negative Negative [facility] NIT[facility]ITE UA (POCT) Negative Negative [facility] PH UA (POCT) 6.5 4.5 - 8.0 [facility] Protein Ql (U) Trace Abnormal Negative mg/dL [facility] SPECIFIC GRAVITY UA (POCT) 1.020 1.005 - 1.030 [facility] UROBILINOGEN UA (POCT) 0.2 Delmis l E.U./dL [facility] Location:[facility], [address], [place], [id number] [place] [address] [facility] CBC W Auto Differential pane l (Bld)on 02-16-2024 Basophils (Bld) [#/Vol] NINF [facility] Basophils/100 WBC (Bld) 0.5 % [facility] Differential cell count method Nom (Bld) Auto [facility] Eosinophils (Bld) [#/Vol] NINF [facility] Eosinophils/100 WBC (Bld) 0.5 % [facility] Erythrocyte distribution width (RBC) [Ratio] 14.2 % 11.5 - 15.0 % [facility] Hematocrit (Bld) [Volume fraction] 30.8 % Low 36.0 - 46.0 % [facility] Hemoglobin (Bld) [Mass/Vol] 9.9 g/dL Low 11.5 - 15.5 g/dL [facility] Immature granulocytes (Bld) [#/Vol] [facility] Immature granulocytes/100 WBC (Bld) 0.5 % [facility] Interpretation and review of laboratory results Abnormal [facility] Lymphocytes (Bld) [#/Vol] 0.84 10*3/uL Low [facility] Lymphocytes/100 WBC (Bld) 40.4 % [facility] MCH (RBC) [Entitic mass] 27.0 pg 26.0 - 34.[address] [facility] MCHC (RBC) [Mass/Vol] 32.1 g/dL 30.5 - 36.0 g/dL [facility] MCV (RBC) [Entitic vol] 83.9 fL 80.0 - 100.[address] [facility] Monocytes (Bld) [#/Vol] 0.07 10*3/uL [facility] Monocytes/100 WBC (Bld) 3.4 % [facility] Neutrophils (Bld) [#/Vol] 1.14 10*3/uL Low [facility] Neutrophils/100 WBC (Bld) 54.7 % [facility] Nucleated RBC (Bld) [#/Vol] [facility] Nucleated RBC/100 WBC (Bld) [Ratio] 0.0 % /[address] [facility] Platelet mean volume (Bld) [Entitic vol] 9.2 fL 9.0 - 12.[address] [facility] Platelets (Bld) [#/Vol] 75 10*3/uL Low [facility] Comment on above: No clot detected. RBC (Bld) [#/Vol] 3.67 10*6/uL Low 3.90 - 5.2 0 m/uL [facility] WBC (Bld) [#/Vol] 2.08 10*3/uL Low [facility] CBC W Auto Differential pane l (Bld)on 02-10-2024 Basophils (Bld) [#/Vol] [facility] Basophils/100 WBC (Bld) 0.3 % [facility] Differential cell count method Nom (Bld) Auto [facility] Eosinophils (Bld) [#/Vol] 0.03 10*3/uL [facility] Eosinophils/100 WBC (Bld) 0.9 % [facility] Erythrocyte distribution width (RBC) [Ratio] 14.5 % 11.5 - 15.0 % [facility] Hematocrit (Bld) [Volume fraction] 32.4 % Low 36.0 - 46.0 % [facility] Hemoglobin (Bld) [Mass/Vol] 10.2 g/dL Low 11.5 - 15.5 g/dL [facility] Immature granulocytes (Bld) [#/Vol] NINF [facility] Immature granulocytes/100 WBC (Bld) 0.3 % [facility] Interpretation and review of laboratory results Abnormal [facility] Lymphocytes (Bld) [#/Vol] 0.90 10*3/uL Low [facility] Lymphocytes/100 WBC (Bld) 26.6 % [facility] MCH (RBC) [Entitic mass] 26.4 pg 26.0 - 34.[address] [facility] MCHC (RBC) [Mass/Vol] 31.5 g/dL 30.5 - 36.0 g/dL [facility] MCV (RBC) [Entitic vol] 83.9 fL 80.0 - 100.[address] [facility] Monocytes (Bld) [#/Vol] 0.30 10*3/uL [facility] Monocytes/100 WBC (Bld) 8.9 % [facility] Neutrophils (Bld) [#/Vol] 2.13 10*3/uL [facility] Neutrophils/100 WBC (Bld) 63.0 % [facility] Nucleated RBC (Bld) [#/Vol] [facility] Nucleated RBC/100 WBC (Bld) [Ratio] 0.0 % /[address] [facility] Platelet mean volume (Bld) [Entitic vol] 8.6 fL Low 9.0 - 12.[address] [facility] Platelets (Bld) [#/Vol] 120 10*3/uL Low [facility] RBC (Bld) [#/Vol] 3.86 10*6/uL Low 3.90 - 5.2 0 m/uL [facility] WBC (Bld) [#/Vol] 3.38 10*3/uL Low [facility] CBC W Auto Differential pane l (Bld)on 02-04-2024 Basophils (Bld) [#/Vol] [facility] Basophils/100 WBC (Bld) 0.4 % [facility] Differential cell count method Nom (Bld) Auto [facility] Eosinophils (Bld) [#/Vol] 0.03 10*3/uL [facility] Eosinophils/100 WBC (Bld) 0.5 % [facility] Erythrocyte distribution width (RBC) [Ratio] 15.2 % High 11.5 - 15.0 % [facility] Hematocrit (Bld) [Volume fraction] 36.7 % 36.0 - 46.0 % [facility] Hemoglobin (Bld) [Mass/Vol] 11.7 g/dL 11.5 - 15.5 g/dL [facility] Immature granulocytes (Bld) [#/Vol] 0.03 10*3/uL [facility] Immature granulocytes/100 WBC (Bld) 0.5 % [facility] Interpretation and review of laboratory results Abnormal [facility] Lymphocytes (Bld) [#/Vol] 0.98 10*3/uL Low [facility] Lymphocytes/100 WBC (Bld) 17.7 % [facility] MCH (RBC) [Entitic mass] 26.9 pg 26.0 - 34.[address] [facility] MCHC (RBC) [Mass/Vol] 31.9 g/dL 30.5 - 36.0 g/dL [facility] MCV (RBC) [Entitic vol] 84.4 fL 80.0 - 100.[address] [facility] Monocytes (Bld) [#/Vol] 0.56 10*3/uL [facility] Monocytes/100 WBC (Bld) 10.1 % [facility] Neutrophils (Bld) [#/Vol] 3.93 10*3/uL [facility] Neutrophils/100 WBC (Bld) 70.8 % [facility] Nucleated RBC (Bld) [#/Vol] [facility] Nucleated RBC/100 WBC (Bld) [Ratio] 0.0 % /[address] [facility] Platelet mean volume (Bld) [Entitic vol] 9.1 fL 9.0 - 12.[address] [facility] Platelets (Bld) [#/Vol] 157 10*3/uL [facility] RBC (Bld) [#/Vol] 4.35 10*6/uL 3.90 - 5.2 0 m/uL [facility] WBC (Bld) [#/Vol] 5.55 10*3/uL [facility] Comprehensive metabolic 2000 panelOrdered By: Tiffany Caceres on 02-04-2024 Albumin [Mass/Vol] 3.9 g/dL 3.9 - 4.9 g/dL [facility] ALP [Catalytic activity/Vol] 89 U/L 34 - 123 U/L [facility] ALT [Catalytic activity/Vol] 32 U/L 7 - 38 U/L [facility] Anion gap [Moles/Vol] 8 mmol/L 8 - 15 mmol/L [facility] AST [Catalytic activity/Vol] 40 U/L High 13 - 35 U/L [facility] Bilirubin [Mass/Vol] 0.5 mg/dL 0.2 - 1 .3 mg/dL [facility] Calcium [Mass/Vol] 9.6 mg/dL 8.5 - 10. 2 mg/dL [facility] Chloride [Moles/Vol] 105 mmol/L 98 - 10 7 mmol/L [facility] CO2 [Moles/Vol] 24 mmol/L 22 - 30 mmol/L [facility] Creatinine [Mass/Vol] 0.67 mg/dL 0.58 - 0.96 mg/dL [facility] GFR/1.73 sq M.predicted among non-blacks MDRD (S/P/Bld) [Vol rate/Area] 92 mL/min/{1.73_m2} - PINF [facility] Comment on above: Estimated Glomerular Filtration Rate (eGFR) is calculated using the 2020 CKD-EPI creatinine equation. This equation utilizes serum creatinine, sex, and age as parameters. The creatinine assay has traceable calibration to isotope dilution-mass spectrometry. Refer to KDIGO guidelines for clinical interpretation. In patients with unstable renal function, e.g. those with acute kidney injury, the eGFR may not accurately reflect actual GFR. Glucose [Mass/Vol] 98 mg/dL 74 - 99 mg/dL [facility] Comment on above: The [place] [employer] (ADA) provides guidance for cutoff values for fasting glucose and random glucose. The ADA defines fasting as no caloric intake for at least 8 hours. Fasting plasma glucose results between 100 to 125 mg/dL indicate increased risk for diabetes (prediabetes). Fasting plasma glucose results greater than or equal to 126 mg/dL meet the criteria for diagnosis of diabetes. In the absence of unequivocal hyperglycemia, results should be confirmed by repeat testing. In a patient with classic symptoms of hyperglycemia or hyperglycemic crisis, random plasma glucose results greater than or equal to 200 mg/dL meet the criteria for diagnosis of diabetes. Reference: Standards of Medical Care in Diabetes 2016, [place] [employer]. Diabetes Care. 2016.39(Suppl 1). Interpretation and review of laboratory results Abnormal [facility] Potassium [Moles/Vol] 4.1 mmol/L 3.7 - 5.1 mmol/L [facility] Protein [Mass/Vol] 6.9 g/dL 6.3 - 8.0 g/dL [facility] Sodium [Moles/Vol] 137 mmol/L 136 - 144 mmol/L [facility] Urea nitrogen [Mass/Vol] 20 mg/dL 7 - 21 mg/dL [facility] UA DIP, URINE (POC)on 2023 BILIRUBIN UA (POCT) Negative Negative [facility] CLARITY UA (POCT) Clear [facility] COLOR UA (POCT) Yellow [facility] GLUCOSE UA (POCT) Negative Negative mg/dL [facility] Hemoglobin Ql (U) Trace-intact Abnormal Negative [facility] Interpretation and review of laboratory results Abnormal [facility] KETONE UA (POCT) Negative Negative mg/dL [facility] LEUKOCYTES UA (POCT) [facility] NITRITE UA (POCT) Negative Negative [facility] PH UA (POCT) 5.0 4.5 - 8.0 [facility] Protein Ql (U) Negative Negative mg/dL [facility] SPECIFIC GRAVITY UA (POCT) 1.025 1.005 - 1.030 [facility] UROBILINOGEN UA (POCT) 0.2 Delmis l E.U./dL [facility] Location:[facility], [address] [facility], [place], [place], [id number] [place] [address] [facility] CBC W Auto Differential pane l (Bld)on 01-24-2024 Basophils (Bld) [#/Vol] 0.03 10*3/uL [facility] Basophils/100 WBC (Bld) 0.5 % [facility] Differential cell count method Nom (Bld) Auto [facility] Eosinophils (Bld) [#/Vol] 0.06 10*3/[facility] Eosinophils/100 WBC (Bld) 1.1 % [facility] Erythrocyte distribution width (RBC) [Ratio] 15.6 % High 11.5 - 15.0 % [facility] Hematocrit (Bld) [Volume fraction] 40.0 % 36.0 - 46.0 % [facility] Hemoglobin (Bld) [Mass/Vol] 12.7 g/dL 11.5 - 15.5 g/dL [facility] Immature granulocytes (Bld) [#/Vol] NINF [facility] Immature granulocytes/100 WBC (Bld) 0.4 % [facility] Interpretation and review of laboratory results Abnormal [facility] Lymphocytes (Bld) [#/Vol] 1.28 10*3/uL [facility] Lymphocytes/100 WBC (Bld) 22.7 % [facility] MCH (RBC) [Entitic mass] 26.5 pg 26.0 - 34.[address] [facility] MCHC (RBC) [Mass/Vol] 31.8 g/dL 30.5 - 36.0 g/dL [facility] MCV (RBC) [Entitic vol] 83.3 fL 80.0 - 100.[address] [facility] Monocytes (Bld) [#/Vol] 0.43 10*3/uL [facility] Monocytes/100 WBC (Bld) 7.6 % [facility] Neutrophils (Bld) [#/Vol] 3.81 10*3/uL [facility] Neutrophils/100 WBC (Bld) 67.7 % [facility] Nucleated RBC (Bld) [#/Vol] [facility] Nucleated RBC/100 WBC (Bld) [Ratio] 0.0 % /[address] [facility] Platelet mean volume (Bld) [Entitic vol] 9.3 fL 9.0 - 12.[address] [facility] Platelets (Bld) [#/Vol] 144 10*3/uL Low [facility] RBC (Bld) [#/Vol] 4.80 10*6/uL 3.90 - 5.2 0 m/uL [facility] WBC (Bld) [#/Vol] 5.63 10*3/uL [facility] Comprehensive metabolic 2000 panelOrdered By: Janet Vick on 01-24-2024 Albumin [Mass/Vol] 4.4 g/dL 3.9 - 4.9 g/dL [facility] ALP [Catalytic activity/Vol] 87 U/L 34 - 123 U/L [facility] ALT [Catalytic activity/Vol] 27 U/L 7 - 38 U/L [facility] Anion gap [Moles/Vol] 10 mmol/L 8 - 15 mmol/L [facility] AST [Catalytic activity/Vol] 34 U/L 13 - 35 U/L [facility] Bilirubin [Mass/Vol] 0.9 mg/dL 0.2 - 1 .3 mg/dL [facility] Calcium [Mass/Vol] 9.9 mg/dL 8.5 - 10. 2 mg/dL [facility] Chloride [Moles/Vol] 103 mmol/L 98 - 10 7 mmol/L [facility] CO2 [Moles/Vol] 25 mmol/L 22 - 30 mmol/L [facility] Creatinine [Mass/Vol] 0.70 mg/dL 0.58 - 0.96 mg/dL [facility] GFR/1.73 sq M.predicted among non-blacks MDRD (S/P/Bld) [Vol rate/Area] 91 mL/min/{1.73_m2} - PINF [facility] Comment on above: Estimated Glomerular Filtration Rate (eGFR) is calculated using the 2020 CKD-EPI creatinine equation. This equation utilizes serum creatinine, sex, and age as parameters. The creatinine assay has traceable calibration to isotope dilution-mass spectrometry. Refer to KDIGO guidelines for clinical interpretation. In patients with unstable renal function, e.g. those with acute kidney injury, the eGFR may not accurately reflect actual GFR. Glucose [Mass/Vol] 89 mg/dL 74 - 99 mg/dL [facility] Comment on above: The [place] [employer] (ADA) provides guidance for cutoff values for fasting glucose and random glucose. The ADA defines fasting as no caloric intake for at least 8 hours. Fasting plasma glucose results between 100 to 125 mg/dL indicate increased risk for diabetes (prediabetes). Fasting plasma glucose results greater than or equal to 126 mg/dL meet the criteria for diagnosis of diabetes. In the absence of unequivocal hyperglycemia, results should be confirmed by repeat testing. In a patient with classic symptoms of hyperglycemia or hyperglycemic crisis, random plasma glucose results greater than or equal to 200 mg/dL meet the criteria for diagnosis of diabetes. Reference: Standards of Medical Care in Diabetes 2016, [place] [employer]. Diabetes Care. 2016.39(Suppl 1). Interpretation and review of laboratory results Abnormal [facility] Potassium [Moles/Vol] 4.3 mmol/L 3.7 - 5.1 mmol/L [facility] Protein [Mass/Vol] 7.2 g/dL 6.3 - 8.0 g/dL [facility] Sodium [Moles/Vol] 138 mmol/L 136 - 144 mmol/L [facility] Urea nitrogen [Mass/Vol] 22 mg/dL High 7 - 21 mg/dL [facility] CBC W Auto Differential pane l (Bld)on 01-17-2024 Basophils (Bld) [#/Vol] 0.03 10*3/uL [facility] Basophils/100 WBC (Bld) 0.5 % [facility] Differential cell count method Nom (Bld) Auto [facility] Eosinophils (Bld) [#/Vol] 0.07 10*3/uL [facility] Eosinophils/100 WBC (Bld) 1.2 % [facility] Erythrocyte distribution width (RBC) [Ratio] 15.6 % High 11.5 - 15.0 % [facility] Hematocrit (Bld) [Volume fraction] 40.4 % 36.0 - 46.0 % [facility] Hemoglobin (Bld) [Mass/Vol] 13.1 g/dL 11.5 - 15.5 g/dL [facility] Immature granulocytes (Bld) [#/Vol] [facility] Immature granulocytes/100 WBC (Bld) 0.3 % [facility] Interpretation and review of laboratory results Abnormal [facility] Lymphocytes (Bld) [#/Vol] 1.27 10*3/uL [facility] Lymphocytes/100 WBC (Bld) 22.0 % [facility] MCH (RBC) [Entitic mass] 26.7 pg 26.0 - 34.[address] [facility] MCHC (RBC) [Mass/Vol] 32.4 g/dL 30.5 - 36.0 g/dL [facility] MCV (RBC) [Entitic vol] 82.3 fL 80.0 - 100.[address] [facility] Monocytes (Bld) [#/Vol] 0.43 10*3/uL [facility] Monocytes/100 WBC (Bld) 7.5 % [facility] Neutrophils (Bld) [#/Vol] 3.94 10*3/uL [facility] Neutrophils/100 WBC (Bld) 68.5 % [facility] Nucleated RBC (Bld) [#/Vol] NINF [facility] Nucleated RBC/100 WBC (Bld) [Ratio] 0.0 % /[address] [facility] Platelet mean volume (Bld) [Entitic vol] 9.0 fL 9.0 - 12.[address] [facility] Platelets (Bld) [#/Vol] 141 10*3/uL Low [facility] RBC (Bld) [#/Vol] 4.91 10*6/uL 3.90 - 5.2 0 m/uL [facility] WBC (Bld) [#/Vol] 5.76 10*3/uL [facility] Comprehensive metabolic 2000 panelOrdered By: Janet Vick on 01-17-2024 Albumin [Mass/Vol] 3.9 g/dL 3.9 - 4.9 g/dL [facility] ALP [Catalytic activity/Vol] 88 U/L 34 - 123 U/L [facility] ALT [Catalytic activity/Vol] 25 U/L 7 - 38 U/L [facility] Anion gap [Moles/Vol] 11 mmol/L 8 - 15 mmol/L [facility] AST [Catalytic activity/Vol] 33 U/L 13 - 35 U/L [facility] Bilirubin [Mass/Vol] 1.2 mg/dL 0.2 - 1 .3 mg/dL [facility] Calcium [Mass/Vol] 9.1 mg/dL 8.5 - 10. 2 mg/dL [facility] Chloride [Moles/Vol] 101 mmol/L 98 - 10 7 mmol/L [facility] CO2 [Moles/Vol] 28 mmol/L 22 - 30 mmol/L [facility] Creatinine [Mass/Vol] 0.80 mg/dL 0.58 - 0.96 mg/dL [facility] GFR/1.73 sq M.predicted among non-blacks MDRD (S/P/Bld) [Vol rate/Area] 77 mL/min/{1.73_m2} - PINF [facility] Comment on above: Estimated Glomerular Filtration Rate (eGFR) is calculated using the 2020 CKD-EPI creatinine equation. This equation utilizes serum creatinine, sex, and age as parameters. The creatinine assay has traceable calibration to isotope dilution-mass spectrometry. Refer to KDIGO guidelines for clinical interpretation. In patients with unstable renal function, e.g. those with acute kidney injury, the eGFR may not accurately reflect actual GFR. Glucose [Mass/Vol] 100 mg/dL High 74 - 99 mg/dL [facility] Comment on above: The [place] [employer] (ADA) provides guidance for cutoff values for fasting glucose and random glucose. The ADA defines fasting as no caloric intake for at least 8 hours. Fasting plasma glucose results between 100 to 125 mg/dL indicate increased risk for diabetes (prediabetes). Fasting plasma glucose results greater than or equal to 126 mg/dL meet the criteria for diagnosis of diabetes. In the absence of unequivocal hyperglycemia, results should be confirmed by repeat testing. In a patient with classic symptoms of hyperglycemia or hyperglycemic crisis, random plasma glucose results greater than or equal to 200 mg/dL meet the criteria for diagnosis of diabetes. Reference: Standards of Medical Care in Diabetes 2016, [place] [employer]. Diabetes Care. 2016.39(Suppl 1). Interpretation and review of laboratory results Abnormal [facility] Potassium [Moles/Vol] 4.1 mmol/L 3.7 - 5.1 mmol/L [facility] Protein [Mass/Vol] 7.3 g/dL 6.3 - 8.0 g/dL [facility] Sodium [Moles/Vol] 140 mmol/L 136 - 144 mmol/L [facility] Urea nitrogen [Mass/Vol] 26 mg/dL High 7 - 21 mg/dL [facility] CBC W Auto Differential pane l (Bld)on 12-27-2023 Basophils (Bld) [#/Vol] [facility] Basophils/100 WBC (Bld) 0.4 % [facility] Differential cell count method Nom (Bld) Auto [facility] Eosinophils (Bld) [#/Vol] 0.16 10*3/uL [facility] Eosinophils/100 WBC (Bld) 3.2 % [facility] Erythrocyte distribution width (RBC) [Ratio] 16.4 % High 11.5 - 15.0 % [facility] Hematocrit (Bld) [Volume fraction] 39.9 % 36.0 - 46.0 % [facility] Hemoglobin (Bld) [Mass/Vol] 12.9 g/dL 11.5 - 15.5 g/dL [facility] Immature granulocytes (Bld) [#/Vol] [facility] Immature granulocytes/100 WBC (Bld) 0.4 % [facility] Interpretation and review of laboratory results Abnormal [facility] Lymphocytes (Bld) [#/Vol] 1.10 10*3/uL [facility] Lymphocytes/100 WBC (Bld) 22.1 % [facility] MCH (RBC) [Entitic mass] 26.4 pg 26.0 - 34.[address] [facility] MCHC (RBC) [Mass/Vol] 32.3 g/dL 30.5 - 36.0 g/dL [facility] MCV (RBC) [Entitic vol] 81.8 fL 80.0 - 100.[address] [facility] Monocytes (Bld) [#/Vol] 0.47 10*3/uL NINF [facility] Monocytes/100 WBC (Bld) 9.5 % [facility] Neutrophils (Bld) [#/Vol] 3.20 10*3/uL [facility] Neutrophils/100 WBC (Bld) 64.4 % [facility] Nucleated RBC (Bld) [#/Vol] NINF [facility] Nucleated RBC/100 WBC (Bld) [Ratio] 0.0 % /[address] [facility] Platelet mean volume (Bld) [Entitic vol] 9.2 fL 9.0 - 12.[address] [facility] Platelets (Bld) [#/Vol] 137 10*3/uL Low [facility] RBC (Bld) [#/Vol] 4.88 10*6/uL 3.90 - 5.2 0 m/uL [facility] WBC (Bld) [#/Vol] 4.97 10*3/uL [facility] Comprehensive metabolic 2000 panelOrdered By: Janet Vick on 12-27-2023 Albumin [Mass/Vol] 4.2 g/dL 3.9 - 4.9 g/dL [facility] ALP [Catalytic activity/Vol] 93 U/L 34 - 123 U/L [facility] ALT [Catalytic activity/Vol] 26 U/L 7 - 38 U/L [facility] Anion gap [Moles/Vol] 10 mmol/L 8 - 15 mmol/L [facility] AST [Catalytic activity/Vol] 32 U/L 13 - 35 U/L [facility] Bilirubin [Mass/Vol] 0.4 mg/dL 0.2 - 1 .3 mg/dL [facility] Calcium [Mass/Vol] 9.9 mg/dL 8.5 - 10. 2 mg/dL [facility] Chloride [Moles/Vol] 103 mmol/L 98 - 10 7 mmol/L [facility] CO2 [Moles/Vol] 27 mmol/L 22 - 30 mmol/L [facility] Creatinine [Mass/Vol] 0.91 mg/dL 0.58 - 0.96 mg/dL [facility] GFR/1.73 sq M.predicted among non-blacks MDRD (S/P/Bld) [Vol rate/Area] 66 mL/min/{1.73_m2} - PINF [facility] Comment on above: Estimated Glomerular Filtration Rate (eGFR) is calculated using the 2020 CKD-EPI creatinine equation. This equation utilizes serum creatinine, sex, and age as parameters. The creatinine assay has traceable calibration to isotope dilution-mass spectrometry. Refer to KDIGO guidelines for clinical interpretation. In patients with unstable renal function, e.g. those with acute kidney injury, the eGFR may not accurately reflect actual GFR. Glucose [Mass/Vol] 97 mg/dL 74 - 99 mg/dL [facility] Comment on above: The [place] [employer] (ADA) provides guidance for cutoff values for fasting glucose and random glucose. The ADA defines fasting as no caloric intake for at least 8 hours. Fasting plasma glucose results between 100 to 125 mg/dL indicate increased risk for diabetes (prediabetes). Fasting plasma glucose results greater than or equal to 126 mg/dL meet the criteria for diagnosis of diabetes. In the absence of unequivocal hyperglycemia, results should be confirmed by repeat testing. In a patient with classic symptoms of hyperglycemia or hyperglycemic crisis, random plasma glucose results greater than or equal to 200 mg/dL meet the criteria for diagnosis of diabetes. Reference: Standards of Medical Care in Diabetes 2016, [place] [employer]. Diabetes Care. 2016.39(Suppl 1). Interpretation and review of laboratory results Abnormal [facility] Potassium [Moles/Vol] 4.0 mmol/L 3.7 - 5.1 mmol/L [facility] Protein [Mass/Vol] 7.3 g/dL 6.3 - 8.0 g/dL [facility] Sodium [Moles/Vol] 140 mmol/L 136 - 144 mmol/L [facility] Urea nitrogen [Mass/Vol] 22 mg/dL High 7 - 21 mg/dL [facility] CT Chest WO contraston 12-20 IMPRESSION: Interval worsening of nodular groundglass opacities in the bilateral lungs. No thoracic lymphadenopathy. Security Ambassador: PSCB Transcribe Date/Time: Dec 21 2023 10:02A Dictated by : FAUSTINA MOSQUERA MD This examination was interpreted and the report reviewed and electronically signed by: FAUSTINA MOSQUERA MD on Dec 21 2023 10:20AM [facility] DIVISION OF RADIOLOGY * * *Final Report* * * DATE OF EXAM: Dec 21 2023 9:12AM [id number] - CT CHEST WO IVCON / PROCEDURE REASON: multiple diagnoses * * * * Physician Interpretation * * * * EXAMINATION: CHEST CT WITHOUT CONTRAST CLINICAL HISTORY: Pneumonia. Technique: Spiral CT acquisition of the chest from the thoracic inlet to the upper abdomen without contrast. MQ: CTCWO_6 CT Radiation dose: Integrated Dose-length product (DLP) for this visit = 149 mGy*cm CT Dose Reduction Employed: Automated exposure control(AEC) and iterative recon Comparison: CT chest on 12/02/2023 RESULT: Limitations: None. Lines, tubes, and devices: Interval retraction of right chest port catheter, with tip extending into the superior SVC. Lung parenchyma and airways: The central airways are patent. Noted is interval worsening of nodular groundglass opacities in the right lung. Similar lesions are visualized along the posterior aspect of the left upper lobe and left lower lobe. There are foci of atelectasis in the bilateral lungs. No mass lesion identified. Pleural space: No pleural effusions or pneumothorax. Lower neck, lymph nodes, and mediastinum: The imaged thyroid gland is normal. No lymphadenopathy in the supraclavicular, axillary, mediastinal, or hilar regions. Heart, pericardium, and thoracic vessels: Stable cardiac chambers, thoracic aorta and central pulmonary arteries. There are punctate calcifications in the coronary circulations. No pericardial effusion/thickening. Bones and soft tissues: The left breast is absent. There are degenerative changes in the spine. No destructive bone lesions appreciated. Upper abdomen: Limited study through the upper abdomen demonstrates no interval changes. Localizer images: No additional findings. DIVISION OF RADIOLOGY Provider, Psychiatric María Elena Hurd - 12/21/2023 * * *Final Report* * * DATE OF EXAM: Dec 21 2023 9:12AM [facility] [id number] - CT CHEST WO IVCON / PROCEDURE REASON: multiple diagnoses * * * * Physician Interpretation * * * * EXAMINATION: CHEST CT WITHOUT CONTRAST CLINICAL HISTORY: Pneumonia. Technique: Spiral CT acquisition of the chest from the thoracic inlet to the upper abdomen without contrast. MQ: CTCWO_6 CT Radiation dose: Integrated Dose-length product (DLP) for this visit = 149 mGy*cm CT Dose Reduction Employed: Automated exposure control(AEC) and iterative recon Comparison: CT chest on 12/02/2023 RESULT: Limitations: None. Lines, tubes, and devices: Interval retraction of right chest port catheter, with tip extending into the superior SVC. Lung parenchyma and airways: The central airways are patent. Noted is interval worsening of nodular groundglass opacities in the right lung. Similar lesions are visualized along the posterior aspect of the left upper lobe and left lower lobe. There are foci of atelectasis in the bilateral lungs. No mass lesion identified. Pleural space: No pleural effusions or pneumothorax. Lower neck, lymph nodes, and mediastinum: The imaged thyroid gland is normal. No lymphadenopathy in the supraclavicular, axillary, mediastinal, or hilar regions. Heart, pericardium, and thoracic vessels: Stable cardiac chambers, thoracic aorta and central pulmonary arteries. There are punctate calcifications in the coronary circulations. No pericardial effusion/thickening. Bones and soft tissues: The left breast is absent. There are degenerative changes in the spine. No destructive bone lesions appreciated. Upper abdomen: Limited study through the upper abdomen demonstrates no interval changes. Localizer images: No additional findings. IMPRESSION IMPRESSION: Interval worsening of nodular groundglass opacities in the bilateral lungs. No thoracic lymphadenopathy. Security Ambassador: PSCB Transcribe Date/Time: Dec 21 2023 10:02A Dictated by : FAUSTINA MOSQUERA MD This examination was interpreted and the report reviewed and electronically signed by: FAUSTINA MOSQUERA MD on Dec 21 2023 10:20AM EST [facility] Radiology Study observation (narrative) [facility] CT Chest WO contrastOrdered By: [facility] Provider on 12-21-2023 [facility] CA 125 BLDon 12-06-2023 Cancer Ag 125 Qn 22 [arb'U]/mL NINF - 39 U/mL [facility] Comment on above: CA 125 test methodol ogy used is the Electrochemiluminescence Immunoassay by [employer] 71lbs. Results obtained with different methods or kits cannot be used interchangeably. The reference interval is based on the 95th percentile of 240 apparently healthy premenopausal and postmenopausal women. At a cutoff value of 65 U/mL, the test sensitivity to distinguish ovarian carcinoma (FIGO stage I to IV) versus benign gynecological disease is 79%, with a specificity of 82%. Reference: Cancer Antigen 125 (CA 125 II) [package insert V 1.0 [place]]. Effie 70lbs, [place], [place] (March 2015) CBC W Auto Differential pane l (Bld)on 12-06-2023 Basophils (Bld) [#/Vol] 0.03 10*3/[facility]L [facility] Basophils/100 WBC (Bld) 0.6 % [facility] Differential cell count method Nom (Bld) Auto [facility] Eosinophils (Bld) [#/Vol] 0.17 10*3/uL [facility] Eosinophils/100 WBC (Bld) 3.2 % [facility] Erythrocyte distribution width (RBC) [Ratio] 17.0 % High 11.5 - 15.0 % [facility] Hematocrit (Bld) [Volume fraction] 42.5 % 36.0 - 46.0 % [facility] Hemoglobin (Bld) [Mass/Vol] 13.6 g/dL 11.5 - 15.5 g/dL [facility] Immature granulocytes (Bld) [#/Vol] [facility] Immature granulocytes/100 WBC (Bld) 0.4 % [facility] Interpretation and review of laboratory results Abnormal [facility] Lymphocytes (Bld) [#/Vol] 1.22 10*3/uL [facility] Lymphocytes/100 WBC (Bld) 23.2 % [facility] MCH (RBC) [Entitic mass] 26.3 pg 26.0 - 34.[address] [facility] MCHC (RBC) [Mass/Vol] 32.0 g/dL 30.5 - 36.0 g/dL [facility] MCV (RBC) [Entitic vol] 82.2 fL 80.0 - 100.[address] [facility] Monocytes (Bld) [#/Vol] 0.51 10*3/uL [facility] Monocytes/100 WBC (Bld) 9.7 % [facility] Neutrophils (Bld) [#/Vol] 3.31 10*3/uL [facility] Neutrophils/100 WBC (Bld) 62.9 % [facility] Nucleated RBC (Bld) [#/Vol] NINF [facility] Nucleated RBC/100 WBC (Bld) [Ratio] 0.0 % /[address] [facility] Platelet mean volume (Bld) [Entitic vol] 9.1 fL 9.0 - 12.[address] [facility] Platelets (Bld) [#/Vol] 129 10*3/uL Low [facility] RBC (Bld) [#/Vol] 5.17 10*6/uL 3.90 - 5.2 0 m/uL [facility] WBC (Bld) [#/Vol] 5.26 10*3/uL [facility] Cancer Ag 125 Qnon 4 Interpretation and review of laboratory results Normal [facility] Comprehensive metabolic 2000 panelOrdered By: Janet Vick on 12-06-2023 Albumin [Mass/Vol] 4.2 g/dL 3.9 - 4.9 g/dL [facility] ALP [Catalytic activity/Vol] 89 U/L 34 - 123 U/L [facility] ALT [Catalytic activity/Vol] 29 U/L 7 - 38 U/L [facility] Anion gap [Moles/Vol] 10 mmol/L 8 - 15 mmol/L [facility] AST [Catalytic activity/Vol] 33 U/L 13 - 35 U/L [facility] Bilirubin [Mass/Vol] 0.3 mg/dL 0.2 - 1 .3 mg/dL [facility] Calcium [Mass/Vol] 9.8 mg/dL 8.5 - 10. 2 mg/dL [facility] Chloride [Moles/Vol] 103 mmol/L 98 - 10 7 mmol/L [facility] CO2 [Moles/Vol] 26 mmol/L 22 - 30 mmol/L [facility] Creatinine [Mass/Vol] 0.80 mg/dL 0.58 - 0.96 mg/dL [facility] GFR/1.73 sq M.predicted among non-blacks MDRD (S/P/Bld) [Vol rate/Area] 77 mL/min/{1.73_m2} - PINF [facility] Comment on above: Estimated Glomerular Filtration Rate (eGFR) is calculated using the 2020 CKD-EPI creatinine equation. This equation utilizes serum creatinine, sex, and age as parameters. The creatinine assay has traceable calibration to isotope dilution-mass spectrometry. Refer to KDIGO guidelines for clinical interpretation. In patients with unstable renal function, e.g. those with acute kidney injury, the eGFR may not accurately reflect actual GFR. Glucose [Mass/Vol] 97 mg/dL 74 - 99 mg/dL [facility] Comment on above: The [place] [employer] (ADA) provides guidance for cutoff values for fasting glucose and random glucose. The ADA defines fasting as no caloric intake for at least 8 hours. Fasting plasma glucose results between 100 to 125 mg/dL indicate increased risk for diabetes (prediabetes). Fasting plasma glucose results greater than or equal to 126 mg/dL meet the criteria for diagnosis of diabetes. In the absence of unequivocal hyperglycemia, results should be confirmed by repeat testing. In a patient with classic symptoms of hyperglycemia or hyperglycemic crisis, random plasma glucose results greater than or equal to 200 mg/dL meet the criteria for diagnosis of diabetes. Reference: Standards of Medical Care in Diabetes 2016, [place] [employer]. Diabetes Care. 2016.39(Suppl 1). Interpretation and review of laboratory results Abnormal [facility] Potassium [Moles/Vol] 4.3 mmol/L 3.7 - 5.1 mmol/L [facility] Protein [Mass/Vol] 7.4 g/dL 6.3 - 8.0 g/dL [facility] Sodium [Moles/Vol] 139 mmol/L 136 - 144 mmol/L [facility] Urea nitrogen [Mass/Vol] 23 mg/dL High 7 - 21 mg/dL [facility] CBC W Auto Differential pane l (Bld)on 11-17-2023 Basophils (Bld) [#/Vol] 0.03 10*3/uL [facility] Basophils/100 WBC (Bld) 0.6 % [facility] Differential cell count method Nom (Bld) Auto [facility] Eosinophils (Bld) [#/Vol] 0.06 10*3/uL [facility] Eosinophils/100 WBC (Bld) 1.2 % [facility] Erythrocyte distribution width (RBC) [Ratio] 17.2 % High 11.5 - 15.0 % [facility] Hematocrit (Bld) [Volume fraction] 42.2 % 36.0 - 46.0 % [facility] Hemoglobin (Bld) [Mass/Vol] 13.4 g/dL 11.5 - 15.5 g/dL [facility] Immature granulocytes (Bld) [#/Vol] NINF [facility] Immature granulocytes/100 WBC (Bld) 0.2 % [facility] Interpretation and review of laboratory results Abnormal [facility] Lymphocytes (Bld) [#/Vol] 1.30 10*3/uL [facility] Lymphocytes/100 WBC (Bld) 25.1 % [facility] MCH (RBC) [Entitic mass] 26.4 pg 26.0 - 34.[address] [facility] MCHC (RBC) [Mass/Vol] 31.8 g/dL 30.5 - 36.0 g/dL [facility] MCV (RBC) [Entitic vol] 83.1 fL 80.0 - 100.[address] [facility] Monocytes (Bld) [#/Vol] 0.42 10*3/uL [facility] Monocytes/100 WBC (Bld) 8.1 % [facility] Neutrophils (Bld) [#/Vol] 3.35 10*3/uL [facility] Neutrophils/100 WBC (Bld) 64.8 % [facility] Nucleated RBC (Bld) [#/Vol] NINF [facility] Nucleated RBC/100 WBC (Bld) [Ratio] 0.0 % /[address] [facility] Platelet mean volume (Bld) [Entitic vol] 9.7 fL 9.0 - 12.[address] [facility] Platelets (Bld) [#/Vol] 144 10*3/uL Low [facility] RBC (Bld) [#/Vol] 5.08 10*6/uL 3.90 - 5.2 0 m/uL [facility] WBC (Bld) [#/Vol] 5.17 10*3/uL [facility] Comprehensive metabolic 2000 panelOrdered By: Tiffany Caceres on 11-17-2023 Albumin [Mass/Vol] 4.5 g/dL 3.9 - 4.9 g/dL [facility] ALP [Catalytic activity/Vol] 92 U/L 34 - 123 U/L [facility] ALT [Catalytic activity/Vol] 29 U/L 7 - 38 U/L [facility] Anion gap [Moles/Vol] 8 mmol/L Low 9 - 18 mmol/L [facility] AST [Catalytic activity/Vol] 30 U/L 13 - 35 U/L [facility] Bilirubin [Mass/Vol] 0.4 mg/dL 0.2 - 1 .3 mg/dL [facility] Calcium [Mass/Vol] 10.3 mg/dL High 8.5 - 10. 2 mg/dL [facility] Chloride [Moles/Vol] 102 mmol/L 97 - 10 5 mmol/L [facility] CO2 [Moles/Vol] 29 mmol/L 22 - 30 mmol/L [facility] Creatinine [Mass/Vol] 0.84 mg/dL 0.58 - 0.96 mg/dL [facility] GFR/1.73 sq M.predicted among non-blacks MDRD (S/P/Bld) [Vol rate/Area] 73 mL/min/{1.73_m2} - PINF [facility] Comment on above: Estimated Glomerular Filtration Rate (eGFR) is calculated using the 2020 CKD-EPI creatinine equation. This equation utilizes serum creatinine, sex, and age as parameters. The creatinine assay has traceable calibration to isotope dilution-mass spectrometry. Refer to KDIGO guidelines for clinical interpretation. In patients with unstable renal function, e.g. those with acute kidney injury, the eGFR may not accurately reflect actual GFR. Glucose [Mass/Vol] 118 mg/dL High 74 - 99 mg/dL [facility] Comment on above: The [place] [employer] (ADA) provides guidance for cutoff values for fasting glucose and random glucose. The ADA defines fasting as no caloric intake for at least 8 hours. Fasting plasma glucose results between 100 to 125 mg/dL indicate increased risk for diabetes (prediabetes). Fasting plasma glucose results greater than or equal to 126 mg/dL meet the criteria for diagnosis of diabetes. In the absence of unequivocal hyperglycemia, results should be confirmed by repeat testing. In a patient with classic symptoms of hyperglycemia or hyperglycemic crisis, random plasma glucose results greater than or equal to 200 mg/dL meet the criteria for diagnosis of diabetes. Reference: Standards of Medical Care in Diabetes 2016, [place] [employer]. Diabetes Care. 2016.39(Suppl 1). Interpretation and review of laboratory results Abnormal [facility] Potassium [Moles/Vol] 4.0 mmol/L 3.7 - 5.1 mmol/L [facility] Protein [Mass/Vol] 7.7 g/dL 6.3 - 8.0 g/dL [facility] Sodium [Moles/Vol] 139 mmol/L 136 - 144 mmol/L [facility] Urea nitrogen [Mass/Vol] 21 mg/dL 7 - 21 mg/dL [facility] CBC W Auto Differential pane l (Bld)on 11-12-2023 Basophils (Bld) [#/Vol] [facility] Basophils/100 WBC (Bld) 0.4 % [facility] Differential cell count method Nom (Bld) Auto [facility] Eosinophils (Bld) [#/Vol] 0.06 10*3/uL [facility] Eosinophils/100 WBC (Bld) 1.1 % [facility] Erythrocyte distribution width (RBC) [Ratio] 17.0 % High 11.5 - 15.0 % [facility] Hematocrit (Bld) [Volume fraction] 40.8 % 36.0 - 46.0 % [facility] Hemoglobin (Bld) [Mass/Vol] 12.9 g/dL 11.5 - 15.5 g/dL [facility] Immature granulocytes (Bld) [#/Vol] [facility] Immature granulocytes/100 WBC (Bld) 0.2 % [facility] Interpretation and review of laboratory results Abnormal [facility] Lymphocytes (Bld) [#/Vol] 1.48 10*3/uL [facility] Lymphocytes/100 WBC (Bld) 27.9 % [facility] MCH (RBC) [Entitic mass] 26.4 pg 26.0 - 34.[address] [facility] MCHC (RBC) [Mass/Vol] 31.6 g/dL 30.5 - 36.0 g/dL [facility] MCV (RBC) [Entitic vol] 83.6 fL 80.0 - 100.[address] [facility] Monocytes (Bld) [#/Vol] 0.48 10*3/uL [facility] Monocytes/100 WBC (Bld) 9.1 % [facility] Neutrophils (Bld) [#/Vol] 3.25 10*3/uL [facility] Neutrophils/100 WBC (Bld) 61.3 % [facility] Nucleated RBC (Bld) [#/Vol] [facility] Nucleated RBC/100 WBC (Bld) [Ratio] 0.0 % /[address] [facility] Platelet mean volume (Bld) [Entitic vol] 9.3 fL 9.0 - 12.[address] [facility] Platelets (Bld) [#/Vol] 131 10*3/uL Low [facility] RBC (Bld) [#/Vol] 4.88 10*6/uL 3.90 - 5.2 0 m/uL [facility] WBC (Bld) [#/Vol] 5.30 10*3/uL [facility] Comprehensive metabolic 2000 panelOrdered By: Rafia Webber on 11-12-2023 Albumin [Mass/Vol] 4.3 g/dL 3.9 - 4.9 g/dL [facility] ALP [Catalytic activity/Vol] 91 U/L 34 - 123 U/L [facility] ALT [Catalytic activity/Vol] 32 U/L 7 - 38 U/L [facility] Anion gap [Moles/Vol] 7 mmol/L Low 9 - 18 mmol/L [facility] AST [Catalytic activity/Vol] 33 U/L 13 - 35 U/L [facility] Bilirubin [Mass/Vol] 0.4 mg/dL 0.2 - 1 .3 mg/dL [facility] Calcium [Mass/Vol] 10.3 mg/dL High 8.5 - 10. 2 mg/dL [facility] Chloride [Moles/Vol] 103 mmol/L 97 - 10 5 mmol/L [facility] CO2 [Moles/Vol] 29 mmol/L 22 - 30 mmol/L [facility] Creatinine [Mass/Vol] 0.94 mg/dL 0.58 - 0.96 mg/dL [facility] GFR/1.73 sq M.predicted among non-blacks MDRD (S/P/Bld) [Vol rate/Area] 64 mL/min/{1.73_m2} - PINF [facility] Comment on above: Estimated Glomerular Filtration Rate (eGFR) is calculated using the 2020 CKD-EPI creatinine equation. This equation utilizes serum creatinine, sex, and age as parameters. The creatinine assay has traceable calibration to isotope dilution-mass spectrometry. Refer to KDIGO guidelines for clinical interpretation. In patients with unstable renal function, e.g. those with acute kidney injury, the eGFR may not accurately reflect actual GFR. Glucose [Mass/Vol] 97 mg/dL 74 - 99 mg/dL [facility] Comment on above: The [place] [employer] (ADA) provides guidance for cutoff values for fasting glucose and random glucose. The ADA defines fasting as no caloric intake for at least 8 hours. Fasting plasma glucose results between 100 to 125 mg/dL indicate increased risk for diabetes (prediabetes). Fasting plasma glucose results greater than or equal to 126 mg/dL meet the criteria for diagnosis of diabetes. In the absence of unequivocal hyperglycemia, results should be confirmed by repeat testing. In a patient with classic symptoms of hyperglycemia or hyperglycemic crisis, random plasma glucose results greater than or equal to 200 mg/dL meet the criteria for diagnosis of diabetes. Reference: Standards of Medical Care in Diabetes 2016, [place] [employer]. Diabetes Care. 2016.39(Suppl 1). Interpretation and review of laboratory results Abnormal [facility] Potassium [Moles/Vol] 4.0 mmol/L 3.7 - 5.1 mmol/L [facility] Protein [Mass/Vol] 7.4 g/dL 6.3 - 8.0 g/dL [facility] Sodium [Moles/Vol] 139 mmol/L 136 - 144 mmol/L [facility] Urea nitrogen [Mass/Vol] 28 mg/dL High 7 - 21 mg/dL [facility] CBC W Auto Differential pane l (Bld)on 10-26-2023 Basophils (Bld) [#/Vol] [facility] Basophils/100 WBC (Bld) 0.2 % [facility] Differential cell count method Nom (Bld) Auto [facility] Eosinophils (Bld) [#/Vol] [facility] Eosinophils/100 WBC (Bld) 0.4 % [facility] Erythrocyte distribution width (RBC) [Ratio] 17.0 % High 11.5 - 15.0 % [facility] Hematocrit (Bld) [Volume fraction] 40.2 % 36.0 - 46.0 % [facility] Hemoglobin (Bld) [Mass/Vol] 12.5 g/dL 11.5 - 15.5 g/dL [facility] Immature granulocytes (Bld) [#/Vol] [facility] Immature granulocytes/100 WBC (Bld) 0.4 % [facility] Interpretation and review of laboratory results Abnormal [facility] Lymphocytes (Bld) [#/Vol] 1.24 10*3/uL [facility] Lymphocytes/100 WBC (Bld) 26.8 % [facility] MCH (RBC) [Entitic mass] 26.2 pg 26.0 - 34.[address] [facility] MCHC (RBC) [Mass/Vol] 31.1 g/dL 30.5 - 36.0 g/dL [facility] MCV (RBC) [Entitic vol] 84.3 fL 80.0 - 100.[address] [facility] Monocytes (Bld) [#/Vol] 0.34 10*3/uL [facility] Monocytes/100 WBC (Bld) 7.4 % [facility] Neutrophils (Bld) [#/Vol] 2.99 10*3/uL [facility] Neutrophils/100 WBC (Bld) 64.8 % [facility] Nucleated RBC (Bld) [#/Vol] [facility] Nucleated RBC/100 WBC (Bld) [Ratio] 0.0 % /[address] [facility] Platelet mean volume (Bld) [Entitic vol] 9.4 fL 9.0 - 12.[address] [facility] Platelets (Bld) [#/Vol] 128 10*3/uL Low [facility] RBC (Bld) [#/Vol] 4.77 10*6/uL 3.90 - 5.2 0 m/uL [facility] WBC (Bld) [#/Vol] 4.62 10*3/uL [facility] CBC W Auto Differential pane l (Bld)on 10-20-2023 Basophils (Bld) [#/Vol] [facility] Basophils/100 WBC (Bld) 0.5 % [facility] Differential cell count method Nom (Bld) Auto [facility] Eosinophils (Bld) [#/Vol] [facility] Eosinophils/100 WBC (Bld) 0.5 % [facility] Erythrocyte distribution width (RBC) [Ratio] 17.1 % High 11.5 - 15.0 % [facility] Hematocrit (Bld) [Volume fraction] 38.6 % 36.0 - 46.0 % [facility] Hemoglobin (Bld) [Mass/Vol] 12.0 g/dL 11.5 - 15.5 g/dL [facility] Immature granulocytes (Bld) [#/Vol] [facility] Immature granulocytes/100 WBC (Bld) 0.5 % [facility] Interpretation and review of laboratory results Abnormal [facility] Lymphocytes (Bld) [#/Vol] 1.20 10*3/uL [facility] Lymphocytes/100 WBC (Bld) 28.8 % [facility] MCH (RBC) [Entitic mass] 26.5 pg 26.0 - 34.[address] [facility] MCHC (RBC) [Mass/Vol] 31.1 g/dL 30.5 - 36.0 g/dL [facility] MCV (RBC) [Entitic vol] 85.2 fL 80.0 - 100.[address] [facility] Monocytes (Bld) [#/Vol] 0.42 10*3/uL NINF [facility] Monocytes/100 WBC (Bld) 10.1 % [facility] Neutrophils (Bld) [#/Vol] 2.49 10*3/uL [facility] Neutrophils/100 WBC (Bld) 59.6 % [facility] Nucleated RBC (Bld) [#/Vol] NINF [facility] Nucleated RBC/100 WBC (Bld) [Ratio] 0.0 % /[address] [facility] Platelet mean volume (Bld) [Entitic vol] 9.7 fL 9.0 - 12.[address] [facility] Platelets (Bld) [#/Vol] 131 10*3/uL Low [facility] RBC (Bld) [#/Vol] 4.53 10*6/uL 3.90 - 5.2 0 m/uL [facility] WBC (Bld) [#/Vol] 4.17 10*3/uL [facility] Comprehensive metabolic 2000 panelOrdered By: Tiffany Caceres on 10-20-2023 Albumin [Mass/Vol] 4.3 g/dL 3.9 - 4.9 g/dL [facility] ALP [Catalytic activity/Vol] 85 U/L 34 - 123 U/L [facility] ALT [Catalytic activity/Vol] 21 U/L 7 - 38 U/L [facility] Anion gap [Moles/Vol] 4 mmol/L Low 9 - 18 mmol/L [facility] AST [Catalytic activity/Vol] 22 U/L 13 - 35 U/L [facility] Bilirubin [Mass/Vol] 0.4 mg/dL 0.2 - 1 .3 mg/dL [facility] Calcium [Mass/Vol] 9.9 mg/dL 8.5 - 10. 2 mg/dL [facility] Chloride [Moles/Vol] 107 mmol/L High 97 - 10 5 mmol/L [facility] CO2 [Moles/Vol] 29 mmol/L 22 - 30 mmol/L [facility] Creatinine [Mass/Vol] 0.92 mg/dL 0.58 - 0.96 mg/dL [facility] GFR/1.73 sq M.predicted among non-blacks MDRD (S/P/Bld) [Vol rate/Area] 65 mL/min/{1.73_m2} - PINF [facility] Comment on above: Estimated Glomerular Filtration Rate (eGFR) is calculated using the 2020 CKD-EPI creatinine equation. This equation utilizes serum creatinine, sex, and age as parameters. The creatinine assay has traceable calibration to isotope dilution-mass spectrometry. Refer to KDIGO guidelines for clinical interpretation. In patients with unstable renal function, e.g. those with acute kidney injury, the eGFR may not accurately reflect actual GFR. Glucose [Mass/Vol] 91 mg/dL 74 - 99 mg/dL [facility] Comment on above: The [place] [employer] (ADA) provides guidance for cutoff values for fasting glucose and random glucose. The ADA defines fasting as no caloric intake for at least 8 hours. Fasting plasma glucose results between 100 to 125 mg/dL indicate increased risk for diabetes (prediabetes). Fasting plasma glucose results greater than or equal to 126 mg/dL meet the criteria for diagnosis of diabetes. In the absence of unequivocal hyperglycemia, results should be confirmed by repeat testing. In a patient with classic symptoms of hyperglycemia or hyperglycemic crisis, random plasma glucose results greater than or equal to 200 mg/dL meet the criteria for diagnosis of diabetes. Reference: Standards of Medical Care in Diabetes 2016, [place] [employer]. Diabetes Care. 2016.39(Suppl 1). Interpretation and review of laboratory results Abnormal [facility] Potassium [Moles/Vol] 4.1 mmol/L 3.7 - 5.1 mmol/L [facility] Protein [Mass/Vol] 7.1 g/dL 6.3 - 8.0 g/dL [facility] Sodium [Moles/Vol] 140 mmol/L 136 - 144 mmol/L [facility] Urea nitrogen [Mass/Vol] 22 mg/dL High 7 - 21 mg/dL [facility] CA 125 BLDon 09-23-2023 Cancer Ag 125 Qn 117 [arb'U]/mL High <39 [facility] CBC W Auto Differential pane l (Bld)on 09-23-2023 Basophils (Bld) [#/Vol] <0.11 k/uL [facility] Basophils/100 WBC (Bld) 0.5 % [facility] Differential cell count method Nom (Bld) Auto [facility] Eosinophils (Bld) [#/Vol] <0.46 k/uL [facility] Eosinophils/100 WBC (Bld) 0.5 % [facility] Erythrocyte distribution width (RBC) [Ratio] 16.1 % High 11.5 - 15.0 % [facility] Hematocrit (Bld) [Volume fraction] 32.7 % Low 36.0 - 46.0 % [facility] Hemoglobin (Bld) [Mass/Vol] 10.3 g/dL Low 11.5 - 15.5 g/dL [facility] Immature granulocytes (Bld) [#/Vol] <0.10 k/uL [facility] Immature granulocytes/100 WBC (Bld) 0.2 % [facility] Lymphocytes (Bld) [#/Vol] 1.08 10*3/uL 1.00 - 4.00 k/uL [facility] Lymphocytes/100 WBC (Bld) 24.3 % [facility] MCH (RBC) [Entitic mass] 26.4 pg 26.0 - 34.[address] [facility] MCHC (RBC) [Mass/Vol] 31.5 g/dL 30.5 - 36.0 g/dL [facility] MCV (RBC) [Entitic vol] 83.8 fL 80.0 - 100.[address] [facility] Monocytes (Bld) [#/Vol] 0.35 10*3/uL <0.87 k/uL [facility] Monocytes/100 WBC (Bld) 7.9 % [facility] Neutrophils (Bld) [#/Vol] 2.96 10*3/uL 1.45 - 7.50 k/uL [facility] Neutrophils/100 WBC (Bld) 66.6 % [facility] Nucleated RBC (Bld) [#/Vol] <0.01 k/uL [facility] Nucleated RBC/100 WBC (Bld) [Ratio] 0.0 /[address] [facility] Platelet mean volume (Bld) [Entitic vol] 10.4 fL 9.0 - 12.[address] [facility] Platelets (Bld) [#/Vol] 163 10*3/uL 150 - 400 k/uL [facility] RBC (Bld) [#/Vol] 3.90 10*6/uL 3.90 - 5.2 0 m/uL [facility] WBC (Bld) [#/Vol] 4.44 10*3/uL 3.70 - 11.00 k/uL [facility] Comprehensive metabolic 2000 panelon 09-23-2023 Albumin [Mass/Vol] 4.4 g/dL 3.9 - 4.9 g/dL [facility] ALP [Catalytic activity/Vol] 73 U/L 34 - 123 U/L [facility] ALT [Catalytic activity/Vol] 14 U/L 7 - 38 U/L [facility] Anion gap [Moles/Vol] 8 mmol/L Low 9 - 18 mmol/L [facility] AST [Catalytic activity/Vol] 21 U/L 13 - 35 U/L [facility] Bilirubin [Mass/Vol] 0.5 mg/dL 0.2 - 1 .3 mg/dL [facility] Calcium [Mass/Vol] 10.0 mg/dL 8.5 - 10. 2 mg/dL [facility] Chloride [Moles/Vol] 105 mmol/L 97 - 10 5 mmol/L [facility] CO2 [Moles/Vol] 28 mmol/L 22 - 30 mmol/L [facility] Creatinine [Mass/Vol] 0.82 mg/dL 0.58 - 0.96 mg/dL [facility] Estimated Glomerular Filtration Rate 75 mL/min/1.73m >=60 mL/min/1.[address] [facility] Glucose [Mass/Vol] 105 mg/dL High 74 - 99 mg/dL [facility] Potassium [Moles/Vol] 4.1 mmol/L 3.7 - 5.1 mmol/L [facility] Protein [Mass/Vol] 7.2 g/dL 6.3 - 8.0 g/dL [facility] Sodium [Moles/Vol] 141 mmol/L 136 - 144 mmol/L [facility] Urea nitrogen [Mass/Vol] 21 mg/dL 7 - 21 mg/dL [facility] FERRITIN BLDon 09-23-2023 Ferritin [Mass/Vol] 561.0 ng/mL High 14.7 - 205.1 ng/mL [facility] Iron and Iron binding capaci ty panelon 09-23-2023 Iron [Mass/Vol] 61 ug/dL 41 - 186 ug/dL [facility] Iron binding capacity [Mass/Vol] 320 ug/dL 232 - 386 ug/dL [facility] Iron/TIBC [Molar ratio] 19.1 % 15.0 - 57.0 % [facility] RETIC COUNTon 09-23-2023 Reticulocytes (Bld) [#/Vol] 0.65346 10*3/uL 0.018 - 0.100 M/uL [facility] Reticulocytes (Bld) [#/Vol]o n 09-23-2023 Reticulocytes/100 RBC (Bld) 1.6 % 0.4 - 2.0 % [facility] Direct antiglobulin test.nalini y specific reagent Ql (RBC)on 09-01-2023 DAGT, Polyspecific AHG Negative Cl [facility] FERRITIN BLDon 09-01-2023 Ferritin [Mass/Vol] 33.5 ng/mL 14.7 - 205.1 ng/mL [facility] FOLATE SERUMon 09-01-2023 Folate [Mass/Vol] 6.9 ng/mL >4.7 ng/mL [facility] HAPTOGLOBIN BLDon 09-01-2023 Haptoglobin [Mass/Vol] 92 mg/dL 31 - 238 mg/dL [facility] Iron and Iron binding capaci ty panelon 09-01-2023 Iron [Mass/Vol] 29 ug/dL Low 41 - 186 ug/dL [facility] Iron binding capacity [Mass/Vol] 370 ug/dL 232 - 386 ug/dL [facility] Iron/TIBC [Molar ratio] 7.8 % Low 15.0 - 57.0 % [facility] LD LACTATE DEHYDROon 024 LDH [Catalytic activity/Vol] 182 U/L 135 - 214 U/L [facility] RETIC COUNTon 09-01-2023 Reticulocytes (Bld) [#/Vol] 0.52041 10*3/uL 0.018 - 0.100 M/uL [facility] Reticulocytes (Bld) [#/Vol]o n 09-01-2023 Reticulocytes/100 RBC (Bld) 1.9 % 0.4 - 2.0 % [facility] VITAMIN B12 BLOODon 09-01-19 Cobalamin (Vitamin B12) [Mass/Vol] 375 pg/mL 232 - 1,245 pg/mL [facility] CA 125 BLDon 08-26-2023 Cancer Ag 125 Qn 49 [arb'U]/mL High <39 U/mL [facility] CBC W Auto Differential pane l (Bld)on 08-26-2023 Basophils (Bld) [#/Vol] <0.11 k/uL [facility] Basophils/100 WBC (Bld) 0.2 % [facility] Differential cell count method Nom (Bld) Auto [facility] Eosinophils (Bld) [#/Vol] 0.05 10*3/uL <0.46 k/uL [facility] Eosinophils/100 WBC (Bld) 1.2 % [facility] Erythrocyte distribution width (RBC) [Ratio] 15.0 % 11.5 - 15.0 % [facility] Hematocrit (Bld) [Volume fraction] 27.8 % Low 36.0 - 46.0 % [facility] Hemoglobin (Bld) [Mass/Vol] 8.6 g/dL Low 11.5 - 15.5 g/dL [facility] Immature granulocytes (Bld) [#/Vol] <0.10 k/uL [facility] Immature granulocytes/100 WBC (Bld) 0.2 % [facility] Lymphocytes (Bld) [#/Vol] 1.23 10*3/uL 1.00 - 4.00 k/uL [facility] Lymphocytes/100 WBC (Bld) 29.9 % [facility] MCH (RBC) [Entitic mass] 26.7 pg 26.0 - 34.[address] [facility] MCHC (RBC) [Mass/Vol] 30.9 g/dL 30.5 - 36.0 g/dL [facility] MCV (RBC) [Entitic vol] 86.3 fL 80.0 - 100.[address] [facility] Monocytes (Bld) [#/Vol] 0.32 10*3/uL <0.87 k/uL [facility] Monocytes/100 WBC (Bld) 7.8 % [facility] Neutrophils (Bld) [#/Vol] 2.49 10*3/uL 1.45 - 7.50 k/uL [facility] Neutrophils/100 WBC (Bld) 60.7 % [facility] Nucleated RBC (Bld) [#/Vol] <0.01 k/uL [facility] Nucleated RBC/100 WBC (Bld) [Ratio] 0.0 /[address] [facility] Platelet mean volume (Bld) [Entitic vol] 10.2 fL 9.0 - 12.[address] [facility] Platelets (Bld) [#/Vol] 163 10*3/uL 150 - 400 k/uL [facility] RBC (Bld) [#/Vol] 3.22 10*6/uL Low 3.90 - 5.2 0 m/uL [facility] WBC (Bld) [#/Vol] 4.11 10*3/uL 3.70 - 11.00 k/uL [facility] Comprehensive metabolic 2000 panelon 08-26-2023 Albumin [Mass/Vol] 4.4 g/dL 3.9 - 4.9 g/dL [facility] ALP [Catalytic activity/Vol] 65 U/L 34 - 123 U/L [facility] ALT [Catalytic activity/Vol] 14 U/L 7 - 38 U/L [facility] Anion gap [Moles/Vol] 8 mmol/L Low 9 - 18 mmol/L [facility] AST [Catalytic activity/Vol] 20 U/L 13 - 35 U/L [facility] Bilirubin [Mass/Vol] 0.7 mg/dL 0.2 - 1 .3 mg/dL [facility] Calcium [Mass/Vol] 9.6 mg/dL 8.5 - 10. 2 mg/dL [facility] Chloride [Moles/Vol] 107 mmol/L High 97 - 10 5 mmol/L [facility] CO2 [Moles/Vol] 24 mmol/L 22 - 30 mmol/L [facility] Creatinine [Mass/Vol] 0.82 mg/dL 0.58 - 0.96 mg/dL [facility] Estimated Glomerular Filtration Rate 75 mL/min/1.73m >=60 mL/min/1.[address] [facility] Glucose [Mass/Vol] 91 mg/dL 74 - 99 mg/dL [facility] Potassium [Moles/Vol] 4.2 mmol/L 3.7 - 5.1 mmol/L [facility] Protein [Mass/Vol] 7.1 g/dL 6.3 - 8.0 g/dL [facility] Sodium [Moles/Vol] 139 mmol/L 136 - 144 mmol/L [facility] Urea nitrogen [Mass/Vol] 21 mg/dL 7 - 21 mg/dL [facility] HbA1c (Bld)on 08-26-2023 Average glucose Estimated from glycated hemoglobin (Bld) [Mass/Vol] 82 mg/dL [facility] HbA1c (Bld) [Mass fraction] 4.5 % 4.3 - 5.6 % [facility] Laboratory - Chemistry and C hemistry - challengeon 08-26-2023 Cholesterol [Mass/Vol] 169 mg/dL <200 mg/dL [facility] No Panel Informationon 08-25 HDL Cholesterol, Nonfasting 46 mg/dL >39 mg/dL [facility] LDL Cholesterol, Nonfasting 100 mg/dL High <100 mg/dL [facility] LDL/HDL Ratio, Nonfasting 2.17 mg/dL <2.54 mg/dL [facility] Non HDL Cholesterol, Nonfasting 123 mg/dL <130 mg/dL [facility] Total Chol/HDL Ratio, Nonfasting 3.67 mg/dL <5.10 mg/dL [facility] Triglycerides, Nonfasting 113 mg/dL <150 mg/dL [facility] VLDL Cholesterol, Nonfasting 23 mg/dL <30 mg/dL [facility] Urinalysis complete panel (U )on 08-26-2023 Bacteria LM.HPF (Urine sed) [#/Area] Negative Negative /HPF [facility] Bilirubin Ql (U) Negative Negative [facility] Clarity (Unsp spec) Clear Clear [facility] Color (U) Yellow Yellow [facility] Epithelial cells LM.HPF (Urine sed) [#/Area] None Seen [facility] Glucose Test strip (U) [Mass/Vol] Negative Negative [facility] Hemoglobin Ql (U) Negative Negative [facility] Hyaline casts (Urine sed) [#/Area] 0 /[LPF] 0 /LPF [facility] Ketones Ql (U) Negative Negative [facility] Leukocyte esterase Test strip Ql (U) Trace Abnormal Negative [facility] Nitrite Ql (U) Negative Negative [facility] pH (U) 6.5 [pH] [facility] Protein (U) [Mass/Vol] Trace Abnormal Negative [facility] RBC LM.HPF (Urine sed) [#/Area] 0-2 /HPF 0-2 /HPF [facility] Specific gravity (U) [Rel density] 1.023 1.005 - 1.030 [facility] Urobilinogen Ql (U) 1.0 EU/dL 0.2-1.0 EU/dL [facility] WBC LM.HPF (Urine sed) [#/Area] 0-5 /HPF 0-5 /HPF [facility] CBC W Auto Differential pane l (Bld)on 07-30-2023 Basophils (Bld) [#/Vol] <0.11 k/uL [facility] Basophils/100 WBC (Bld) 0.5 % [facility] Differential cell count method Nom (Bld) Auto [facility] Eosinophils (Bld) [#/Vol] <0.46 k/uL [facility] Eosinophils/100 WBC (Bld) 0.5 % [facility] Erythrocyte distribution width (RBC) [Ratio] 15.2 % High 11.5 - 15.0 % [facility] Hematocrit (Bld) [Volume fraction] 28.3 % Low 36.0 - 46.0 % [facility] Hemoglobin (Bld) [Mass/Vol] 9.1 g/dL Low 11.5 - 15.5 g/dL [facility] Immature granulocytes (Bld) [#/Vol] 0.03 10*3/uL <0.10 k/uL [facility] Immature granulocytes/100 WBC (Bld) 0.7 % [facility] Lymphocytes (Bld) [#/Vol] 0.72 10*3/uL Low 1.00 - 4.00 k/uL [facility] Lymphocytes/100 WBC (Bld) 16.4 % [facility] MCH (RBC) [Entitic mass] 28.3 pg 26.0 - 34.[address] [facility] MCHC (RBC) [Mass/Vol] 32.2 g/dL 30.5 - 36.0 g/dL [facility] MCV (RBC) [Entitic vol] 88.2 fL 80.0 - 100.[address] [facility] Monocytes (Bld) [#/Vol] 0.43 10*3/uL <0.87 k/uL [facility] Monocytes/100 WBC (Bld) 9.8 % [facility] Neutrophils (Bld) [#/Vol] 3.16 10*3/uL 1.45 - 7.50 k/uL [facility] Neutrophils/100 WBC (Bld) 72.1 % [facility] Nucleated RBC (Bld) [#/Vol] <0.01 k/uL [facility] Nucleated RBC/100 WBC (Bld) [Ratio] 0.0 /[address] [facility] Platelet mean volume (Bld) [Entitic vol] 9.3 fL 9.0 - 12.[address] [facility] Platelets (Bld) [#/Vol] 233 10*3/uL 150 - 400 k/uL [facility] RBC (Bld) [#/Vol] 3.21 10*6/uL Low 3.90 - 5.2 0 m/uL [facility] WBC (Bld) [#/Vol] 4.38 10*3/uL 3.70 - 11.00 k/uL [facility] Comprehensive metabolic 2000 panelon 07-30-2023 Albumin [Mass/Vol] 3.8 g/dL Low 3.9 - 4.9 g/dL [facility] ALP [Catalytic activity/Vol] 73 U/L 34 - 123 U/L [facility] ALT [Catalytic activity/Vol] 15 U/L 7 - 38 U/L [facility] Anion gap [Moles/Vol] 10 mmol/L 9 - 18 mmol/L [facility] AST [Catalytic activity/Vol] 17 U/L 13 - 35 U/L [facility] Bilirubin [Mass/Vol] 0.4 mg/dL 0.2 - 1 .3 mg/dL [facility] Calcium [Mass/Vol] 9.4 mg/dL 8.5 - 10. 2 mg/dL [facility] Chloride [Moles/Vol] 101 mmol/L 97 - 10 5 mmol/L [facility] CO2 [Moles/Vol] 24 mmol/L 22 - 30 mmol/L [facility] Creatinine [Mass/Vol] 0.90 mg/dL 0.58 - 0.96 mg/dL [facility] Estimated Glomerular Filtration Rate 67 mL/min/1.73m >=60 mL/min/1.[address] [facility] Glucose [Mass/Vol] 112 mg/dL High 74 - 99 mg/dL [facility] Potassium [Moles/Vol] 4.1 mmol/L 3.7 - 5.1 mmol/L [facility] Protein [Mass/Vol] 6.4 g/dL 6.3 - 8.0 g/dL [facility] Sodium [Moles/Vol] 135 mmol/L Low 136 - 144 mmol/L [facility] Urea nitrogen [Mass/Vol] 21 mg/dL 7 - 21 mg/dL [facility] US Lower extremity veinon [facility] Absolute lymphocyte countOrd ered By: Cristofer Rodriguez on 06-01-2023 Lymphocytes Auto (Unsp spec) [#/Vol] 0.53 10*3/uL 0.83-4.51 [facility] Basophil percentageOrdered B y: Cristofer Rodriguez on 06-01-2023 Basophil percentage 0-5 SEEN /hpf 0-5 [facility] Basophils/100 WBC (Bld) 0.2 % 0-1 [facility] Bilirubin [Mass/Vol] 0.60 mg/dL 0.20-1.00 [facility] Comment on above: For patients on eltr ombopag therapy, use of Dimension [place] TBIL is not recommended. Chloride [Moles/Vol] 107 mmol/L 98-107 [facility] Eosinophils/100 WBC (Bld) 0.0 % 0-5 [facility] Glucose [Mass/Vol] 120 mg/dL 74-106 [facility] Comment on above: Fasting Glucose resu lt from 100 to 125 mg/dL suggests IMPAIRED HOMEOSTASIS per A.D.A. criteria. Neutrophils (Bld) [#/Vol] 3.1 10*3/uL 2.0-7.7 [facility] Neutrophils/100 WBC (Bld) 74.4 % 47-70 [facility] Potassium [Moles/Vol] 4.3 mmol/L 3.5-5.1 [facility] Protein [Mass/Vol] 7.9 g/dL 6.4-8.2 [facility] Sodium [Moles/Vol] 137 mmol/L 136-145 [facility] WBC (Bld) [#/Vol] 4.2 10*3/uL 4.4-11.0 [facility] Bilirubin Test strip Ql (U)O rdered By: Cristofer Rodriguez on 06-01-2023 Bilirubin Ql (U) 1 mg/dL Negative [facility] Comment on above: COLOR OF URINE MAY A FFECT DIPSTICK RESULTS. Blood erythrocytes count (nu mber/volume)Ordered By: Cristofer Rodriguez on 06-01-2023 RBC (Bld) [#/Vol] 3.91 10*6/uL 4.2-5.4 [facility] Blood hemoglobin measurement (mass/volume)Ordered By: Cristofer Rodriguez on 06-01-2023 Hemoglobin (Bld) [Mass/Vol] 10.6 g/dL 12.0-15.0 [facility] Blood lymphocytes/100 leukoc ytesOrdered By: Cristofer Rodriguez on 06-01-2023 Lymphocytes/100 WBC (Bld) 12.7 % 19-41 [facility] Blood manual differential co mment interpretation (narrative result)Ordered By: Cristofer Rodriguez on 06-01-2023 Manual differential comment Jalil (Bld) [Interp] SEE COMMENT [facility] Comment on above: LYMPHOPENIA NOTED Blood monocytes/100 leukocyt esOrdered By: Cristofer Rodriguez on 06-01-2023 Monocytes/100 WBC (Bld) 12.2 % 0-10 [facility] Blood platelet adequacy dete ction by light microscopyOrdered By: Cristofer Rodriguez on 06-01-2023 Platelets LM Ql (Bld) ADEQUATE ADEQ [facility] Blood platelet mean volumeOr dered By: Cristofer Rodriguez on 06-01-2023 Platelet mean volume (Bld) [Entitic vol] 10.2 fL 6.2-12.0 [facility] Determination of erythrocyte mean corpuscular volume (MCV)Ordered By: Cristofer Rodriguez on 06-01-2023 MCV (RBC) [Entitic vol] 87.5 fL 81-99 [facility] Hematocrit Auto (Bld) [Volum e fraction]Ordered By: Cristofer Rodriguez on 06-01-2023 Hematocrit (Bld) [Volume fraction] 34.2 % 37-47 [facility] Hyaline casts LM.LPF (Urine sed) [#/Area]Ordered By: Cristofer Rodriguez on 06-01-2023 Hyaline casts (Urine sed) [#/Area] 10 /[LPF] 0-5 [facility] Ketones Test strip Ql (U)Ord ered By: Cristofer Rodriguez on 06-01-2023 Ketones Ql (U) 50 mg/dl Negative [facility] Laboratory - Chemistry and C hemistry - challengeOrdered By: Cristofer Rodriguez on 06-01-2023 ALP [Catalytic activity/Vol] 135 U/L 45-117 [facility] ALT [Catalytic activity/Vol] 166 U/L 13-56 [facility] CO2 [Moles/Vol] 23.0 mmol/L 21.0-32.0 [facility] Globulin (S) [Mass/Vol] 4.0 g/dL 2.2-4.2 [facility] Lipase [Catalytic activity/Vol] 30 U/L 13-75 [facility] Comment on above: Please note:LIPASE r evised reference range effective 22. New Lipase methodology. Expected to produce lower values than the previous assay method. NEW Reference Range: 13 - 75 U/L Urea nitrogen/Creatinine [Mass ratio] 34.3 mg/mg 10-20 [facility] - Hematology and Cell countsOrdered By: Cristofer Rodriguez on 06-01-2023 Anisocytosis Ql (Bld) RARE [facility] Erythrocyte distribution width (RBC) [Entitic vol] 49.9 fL 35.1-43.9 [facility] Erythrocyte distribution width (RBC) [Ratio] 15.6 % 11.6-14.6 [facility] Immature granulocytes/100 WBC (Bld) 0.500 % 0.0-0.9 [facility] Comment on above: IG% - Immature Granu locytes (promyelocytes, myelocytes and metamyelocytes) > 1% indicates that a LEFT SHIFT is Present. MCH (RBC) [Entitic mass] 27.1 pg 27.0-32.0 [facility] Nucleated RBC/100 WBC (Bld) [Ratio] 0 % 0-5 [facility] MCHC Auto (RBC) [Mass/Vol]Or dered By: Cristofer Rodriguez on 06-01-2023 MCHC (RBC) [Mass/Vol] 31.0 g/dL 32-36 [facility] Mucus LM Ql (Urine sed)Order ed By: Cristofer Rodriguez on 06-01-2023 Mucus Ql (Urine sed) 0 SEEN /hpf [facility] Nitrite Test strip Ql (U)Ord ered By: Cristofer Rodriguez on 06-01-2023 Nitrite Ql (U) Negative Negative [facility] No Panel InformationOrdered By: Cristofer Rodriguez on 06-01-2023 Estimated Creatinine Clearance Calc 39.46 ml/min [facility] Estimated GFR (MDRD) Amer 64 mL/min >60 [facility] Comment on above: GFR Calc Estimated GFR (MDRD) Non-Af Amer 53 mL/min >60 [facility] Comment on above: Non- GFR Calc Ovalocyte detectionOrdered B y: Cristofer Rodriguez on 06-01-2023 Ovalocytes LM Ql (Bld) RARE [facility] Platelets bldOrdered By: Pet er Michael on 06-01-2023 Platelets (Bld) [#/Vol] 150 10*3/uL 150-450 [facility] Protein Test strip Ql (U)Ord ered By: Cristofer Rodriguez on 06-01-2023 Protein Ql (U) 30 mg/dl Negative [facility] RBC morphologyOrdered By: Kermit Kennedy on 06-01-2023 RBC morphology finding Nom (Bld) N CHROM NORMAL NORM C&C [facility] Review by pathologistOrdered By: Cristofer Rodriguez on 06-01-2023 Pathologist review Jalil (Unsp spec) [Interp] May foll [facility] Serum or plasma albumin suzanne urement (mass/volume)Ordered By: Cristofer Rodriguez on 06-01-2023 Albumin [Mass/Vol] 3.9 g/dL 3.2-5.0 [facility] Serum or plasma albumin/glob ulin mass ratioOrdered By: Cristofer Rodriguez on 06-01-2023 Albumin/Globulin [Mass ratio] 1.0 {ratio} 0.9-2.4 [facility] Serum or plasma calcium suzanne urement (mass/volume)Ordered By: Cristofer Rodriguez on 06-01-2023 Calcium [Mass/Vol] 9.6 mg/dL 8.5-10.1 [facility] Serum or plasma creatinine m easurement (mass/volume)Ordered By: Cristofer Rodriguez on 06-01-2023 Creatinine [Mass/Vol] 1.08 mg/dL 0.55-1.02 [facility] Comment on above: The validity of the calculated GFR & GFRAA in patients over 70 years has not been determined. Clinical correlation is essential. Serum or plasma urea nitroge n measurement (mass/volume)Ordered By: Cristofer Rodriguez on 06-01-2023 Urea nitrogen [Mass/Vol] 37 mg/dL 7-18 [facility] Squamous epithelial cells de tection in urine sediment by light microscopyOrdered By: Cristofer Rodriguez on 06-01-2023 Epithelial cells.squamous LM Ql (Urine sed) 0 SEEN /hpf 5-10 [facility] Thin prep Papanicolaou smear with manual screeningOrdered By: Cristofer Rodriguez on 06-01-2023 Thin prep Papanicolaou smear with manual screening 33 U/L 15-37 [facility] Thin prep Papanicolaou smear with manual screening 7 5-15 [facility] Urine blood detectionOrdered By: Cristofer Rodriguez on 06-01-2023 RBC Ql (U) Negative Negative [facility] RBC Ql (U) 0 SEEN /hpf 0-5 [facility] Urine clarityOrdered By: Bonifacio Rodriguez on 06-01-2023 Clarity (U) Sl. Cloudy Clear [facility] Urine color determinationOrd ered By: Cristofer Rodriguez on 06-01-2023 Color (U) Yellow Yellow [facility] Urine glucose detectionOrder ed By: Cristofer Rodriguez on 06-01-2023 Glucose Ql (U) Normal mg/dl Normal [facility] Urine leukocyte esterase det ection by dipstickOrdered By: Cristofer Rodriguez on 06-01-2023 Leukocyte esterase Test strip Ql (U) 25 /ul Negative [facility] Urine pHOrdered By: Cristofer baltazar on 06-01-2023 pH (U) 5.0 [pH] 5.0 - 8.0 [facility] Urine sediment bacteria coun t by microscopy (number/high power field)Ordered By: Cristofer Rodriguez on 06-01-2023 Bacteria LM.HPF (Urine sed) [#/Area] 0 /[HPF] None Seen [facility] Urine specific gravity measu rementOrdered By: Cristofer Rodriguez on 06-01-2023 Specific gravity (U) [Rel density] 1.020 1.002-1.030 [facility] Urobilinogen Auto test strip Ql (U)Ordered By: Cristofer Rodriguez on 06-01-2023 Urobilinogen Ql (U) Normal mg/dl Normal [facility] ECHOon 05-11-2023 [facility] CBC W Auto Differential pane l (Bld)on 05-10-2023 Basophils (Bld) [#/Vol] <0.11 k/uL [facility] Basophils/100 WBC (Bld) 0.4 % [facility] Differential cell count method Nom (Bld) Auto [facility] Eosinophils (Bld) [#/Vol] <0.46 k/uL [facility] Eosinophils/100 WBC (Bld) 0.4 % [facility] Erythrocyte distribution width (RBC) [Ratio] 15.6 % High 11.5 - 15.0 % [facility] Hematocrit (Bld) [Volume fraction] 32.5 % Low 36.0 - 46.0 % [facility] Hemoglobin (Bld) [Mass/Vol] 10.4 g/dL Low 11.5 - 15.5 g/dL [facility] Immature granulocytes (Bld) [#/Vol] <0.10 k/uL [facility] Immature granulocytes/100 WBC (Bld) 0.4 % [facility] Lymphocytes (Bld) [#/Vol] 0.82 10*3/uL Low 1.00 - 4.00 k/uL [facility] Lymphocytes/100 WBC (Bld) 17.8 % [facility] MCH (RBC) [Entitic mass] 27.7 pg 26.0 - 34.[address] [facility] MCHC (RBC) [Mass/Vol] 32.0 g/dL 30.5 - 36.0 g/dL [facility] MCV (RBC) [Entitic vol] 86.4 fL 80.0 - 100.[address] [facility] Monocytes (Bld) [#/Vol] 0.54 10*3/uL <0.87 k/uL [facility] Monocytes/100 WBC (Bld) 11.7 % [facility] Neutrophils (Bld) [#/Vol] 3.18 10*3/uL 1.45 - 7.50 k/uL [facility] Neutrophils/100 WBC (Bld) 69.3 % [facility] Nucleated RBC (Bld) [#/Vol] <0.01 k/uL [facility] Nucleated RBC/100 WBC (Bld) [Ratio] 0.0 /[address] [facility] Platelet mean volume (Bld) [Entitic vol] 9.4 fL 9.0 - 12.[address] [facility] Platelets (Bld) [#/Vol] 128 10*3/uL Low 150 - 400 k/uL [facility] RBC (Bld) [#/Vol] 3.76 10*6/uL Low 3.90 - 5.2 0 m/uL [facility] WBC (Bld) [#/Vol] 4.60 10*3/uL 3.70 - 11.00 k/uL [facility] CBC W Auto Differential pane l (Bld)on 05-07-2023 Basophils (Bld) [#/Vol] <0.11 k/uL [facility] Basophils/100 WBC (Bld) 0.7 % [facility] Differential cell count method Nom (Bld) Auto [facility] Eosinophils (Bld) [#/Vol] 0.03 10*3/uL <0.46 k/uL [facility] Eosinophils/100 WBC (Bld) 1.0 % [facility] Erythrocyte distribution width (RBC) [Ratio] 15.5 % High 11.5 - 15.0 % [facility] Hematocrit (Bld) [Volume fraction] 32.2 % Low 36.0 - 46.0 % [facility] Hemoglobin (Bld) [Mass/Vol] 10.3 g/dL Low 11.5 - 15.5 g/dL [facility] Immature granulocytes (Bld) [#/Vol] <0.10 k/uL [facility] Immature granulocytes/100 WBC (Bld) 0.3 % [facility] Lymphocytes (Bld) [#/Vol] 0.98 10*3/uL Low 1.00 - 4.00 k/uL [facility] Lymphocytes/100 WBC (Bld) 34.0 % [facility] MCH (RBC) [Entitic mass] 27.6 pg 26.0 - 34.[address] [facility] MCHC (RBC) [Mass/Vol] 32.0 g/dL 30.5 - 36.0 g/dL [facility] MCV (RBC) [Entitic vol] 86.3 fL 80.0 - 100.[address] [facility] Monocytes (Bld) [#/Vol] 0.43 10*3/uL <0.87 k/uL [facility] Monocytes/100 WBC (Bld) 14.9 % [facility] Neutrophils (Bld) [#/Vol] 1.41 10*3/uL Low 1.45 - 7.50 k/uL [facility] Neutrophils/100 WBC (Bld) 49.1 % [facility] Nucleated RBC (Bld) [#/Vol] <0.01 k/uL [facility] Nucleated RBC/100 WBC (Bld) [Ratio] 0.0 /[address] [facility] Platelet mean volume (Bld) [Entitic vol] 10.2 fL 9.0 - 12.[address] [facility] Platelets (Bld) [#/Vol] 134 10*3/uL Low 150 - 400 k/uL [facility] RBC (Bld) [#/Vol] 3.73 10*6/uL Low 3.90 - 5.2 0 m/uL [facility] WBC (Bld) [#/Vol] 2.88 10*3/uL Low 3.70 - 11.00 k/uL [facility] Comprehensive metabolic 2000 panelon 05-07-2023 Albumin [Mass/Vol] 4.4 g/dL 3.9 - 4.9 g/dL [facility] ALP [Catalytic activity/Vol] 75 U/L 34 - 123 U/L [facility] ALT [Catalytic activity/Vol] 20 U/L 7 - 38 U/L [facility] Anion gap [Moles/Vol] 9 mmol/L 9 - 18 mmol/L [facility] AST [Catalytic activity/Vol] 21 U/L 13 - 35 U/L [facility] Bilirubin [Mass/Vol] 0.4 mg/dL 0.2 - 1 .3 mg/dL [facility] Calcium [Mass/Vol] 9.7 mg/dL 8.5 - 10. 2 mg/dL [facility] Chloride [Moles/Vol] 102 mmol/L 97 - 10 5 mmol/L [facility] CO2 [Moles/Vol] 27 mmol/L 22 - 30 mmol/L [facility] Creatinine [Mass/Vol] 0.83 mg/dL 0.58 - 0.96 mg/dL [facility] Estimated Glomerular Filtration Rate 74 mL/min/1.73m >=60 mL/min/1.[address] [facility] Glucose [Mass/Vol] 97 mg/dL 74 - 99 mg/dL [facility] Potassium [Moles/Vol] 4.2 mmol/L 3.7 - 5.1 mmol/L [facility] Protein [Mass/Vol] 7.2 g/dL 6.3 - 8.0 g/dL [facility] Sodium [Moles/Vol] 138 mmol/L 136 - 144 mmol/L [facility] Urea nitrogen [Mass/Vol] 28 mg/dL High 7 - 21 mg/dL [facility] MAGNESIUM BLDon 05-07-2023 Magnesium [Mass/Vol] 2.1 mg/dL 1.7 - 2 .3 mg/dL [facility] CBC W Auto Differential pane l (Bld)on 04-09-2023 Basophils (Bld) [#/Vol] <0.11 k/uL [facility] Basophils/100 WBC (Bld) 0.6 % [facility] Differential cell count method Nom (Bld) Auto [facility] Eosinophils (Bld) [#/Vol] <0.46 k/uL [facility] Eosinophils/100 WBC (Bld) 0.6 % [facility] Erythrocyte distribution width (RBC) [Ratio] 16.7 % High 11.5 - 15.0 % [facility] Hematocrit (Bld) [Volume fraction] 31.8 % Low 36.0 - 46.0 % [facility] Hemoglobin (Bld) [Mass/Vol] 10.0 g/dL Low 11.5 - 15.5 g/dL [facility] Immature granulocytes (Bld) [#/Vol] <0.10 k/uL [facility] Immature granulocytes/100 WBC (Bld) 0.3 % [facility] Lymphocytes (Bld) [#/Vol] 1.09 10*3/uL 1.00 - 4.00 k/uL [facility] Lymphocytes/100 WBC (Bld) 31.0 % [facility] MCH (RBC) [Entitic mass] 27.2 pg 26.0 - 34.[address] [facility] MCHC (RBC) [Mass/Vol] 31.4 g/dL 30.5 - 36.0 g/dL [facility] MCV (RBC) [Entitic vol] 86.4 fL 80.0 - 100.[address] [facility] Monocytes (Bld) [#/Vol] 0.57 10*3/uL <0.87 k/uL [facility] Monocytes/100 WBC (Bld) 16.2 % [facility] Neutrophils (Bld) [#/Vol] 1.81 10*3/uL 1.45 - 7.50 k/uL [facility] Neutrophils/100 WBC (Bld) 51.3 % [facility] Nucleated RBC (Bld) [#/Vol] <0.01 k/uL [facility] Nucleated RBC/100 WBC (Bld) [Ratio] 0.0 /[address] [facility] Platelet mean volume (Bld) [Entitic vol] 10.0 fL 9.0 - 12.[address] [facility] Platelets (Bld) [#/Vol] 140 10*3/uL Low 150 - 400 k/uL [facility] RBC (Bld) [#/Vol] 3.68 10*6/uL Low 3.90 - 5.2 0 m/uL [facility] WBC (Bld) [#/Vol] 3.52 10*3/uL Low 3.70 - 11.00 k/uL [facility] Comprehensive metabolic 2000 panelon 04-09-2023 Albumin [Mass/Vol] 4.3 g/dL 3.9 - 4.9 g/dL [facility] ALP [Catalytic activity/Vol] 70 U/L 34 - 123 U/L [facility] ALT [Catalytic activity/Vol] 17 U/L 7 - 38 U/L [facility] Anion gap [Moles/Vol] 9 mmol/L 9 - 18 mmol/L [facility] AST [Catalytic activity/Vol] 21 U/L 13 - 35 U/L [facility] Bilirubin [Mass/Vol] 0.4 mg/dL 0.2 - 1 .3 mg/dL [facility] Calcium [Mass/Vol] 9.3 mg/dL 8.5 - 10. 2 mg/dL [facility] Chloride [Moles/Vol] 103 mmol/L 97 - 10 5 mmol/L [facility] CO2 [Moles/Vol] 23 mmol/L 22 - 30 mmol/L [facility] Creatinine [Mass/Vol] 0.79 mg/dL 0.58 - 0.96 mg/dL [facility] Estimated Glomerular Filtration Rate 79 mL/min/1.73m >=60 mL/min/1.[address] [facility] Glucose [Mass/Vol] 99 mg/dL 74 - 99 mg/dL [facility] Potassium [Moles/Vol] 4.3 mmol/L 3.7 - 5.1 mmol/L [facility] Protein [Mass/Vol] 6.6 g/dL 6.3 - 8.0 g/dL [facility] Sodium [Moles/Vol] 135 mmol/L Low 136 - 144 mmol/L [facility] Urea nitrogen [Mass/Vol] 23 mg/dL High 7 - 21 mg/dL [facility] MAGNESIUM BLDon 04-09-2023 Magnesium [Mass/Vol] 2.1 mg/dL 1.7 - 2 .3 mg/dL [facility] CBC W Auto Differential pane l (Bld)on 03-12-2023 Basophils (Bld) [#/Vol] 0.03 10*3/uL <0.11 k/uL [facility] Basophils/100 WBC (Bld) 0.7 % [facility] Differential cell count method Nom (Bld) Auto [facility] Eosinophils (Bld) [#/Vol] 0.03 10*3/uL <0.46 k/uL [facility] Eosinophils/100 WBC (Bld) 0.7 % [facility] Erythrocyte distribution width (RBC) [Ratio] 17.2 % High 11.5 - 15.0 % [facility] Hematocrit (Bld) [Volume fraction] 32.5 % Low 36.0 - 46.0 % [facility] Hemoglobin (Bld) [Mass/Vol] 10.5 g/dL Low 11.5 - 15.5 g/dL [facility] Immature granulocytes (Bld) [#/Vol] <0.10 k/uL [facility] Immature granulocytes/100 WBC (Bld) 0.5 % [facility] Lymphocytes (Bld) [#/Vol] 1.00 10*3/uL 1.00 - 4.00 k/uL [facility] Lymphocytes/100 WBC (Bld) 22.9 % [facility] MCH (RBC) [Entitic mass] 27.1 pg 26.0 - 34.[address] [facility] MCHC (RBC) [Mass/Vol] 32.3 g/dL 30.5 - 36.0 g/dL [facility] MCV (RBC) [Entitic vol] 83.8 fL 80.0 - 100.[address] [facility] Monocytes (Bld) [#/Vol] 0.46 10*3/uL <0.87 k/uL [facility] Monocytes/100 WBC (Bld) 10.5 % [facility] Neutrophils (Bld) [#/Vol] 2.83 10*3/uL 1.45 - 7.50 k/uL [facility] Neutrophils/100 WBC (Bld) 64.7 % [facility] Nucleated RBC (Bld) [#/Vol] <0.01 k/uL [facility] Nucleated RBC/100 WBC (Bld) [Ratio] 0.0 /[address] [facility] Platelet mean volume (Bld) [Entitic vol] 9.8 fL 9.0 - 12.[address] [facility] Platelets (Bld) [#/Vol] 154 10*3/uL 150 - 400 k/uL [facility] RBC (Bld) [#/Vol] 3.88 10*6/uL Low 3.90 - 5.2 0 m/uL [facility] WBC (Bld) [#/Vol] 4.37 10*3/uL 3.70 - 11.00 k/uL [facility] Comprehensive metabolic 2000 panelon 03-12-2023 Albumin [Mass/Vol] 4.3 g/dL 3.9 - 4.9 g/dL [facility] ALP [Catalytic activity/Vol] 70 U/L 34 - 123 U/L [facility] ALT [Catalytic activity/Vol] 19 U/L 7 - 38 U/L [facility] Anion gap [Moles/Vol] 10 mmol/L 9 - 18 mmol/L [facility] AST [Catalytic activity/Vol] 21 U/L 13 - 35 U/L [facility] Bilirubin [Mass/Vol] 0.3 mg/dL 0.2 - 1 .3 mg/dL [facility] Calcium [Mass/Vol] 9.5 mg/dL 8.5 - 10. 2 mg/dL [facility] Chloride [Moles/Vol] 103 mmol/L 97 - 10 5 mmol/L [facility] CO2 [Moles/Vol] 26 mmol/L 22 - 30 mmol/L [facility] Creatinine [Mass/Vol] 0.78 mg/dL 0.58 - 0.96 mg/dL [facility] Estimated Glomerular Filtration Rate 80 mL/min/1.73m >=60 mL/min/1.[address] [facility] Glucose [Mass/Vol] 99 mg/dL 74 - 99 mg/dL [facility] Potassium [Moles/Vol] 4.4 mmol/L 3.7 - 5.1 mmol/L [facility] Protein [Mass/Vol] 7.2 g/dL 6.3 - 8.0 g/dL [facility] Sodium [Moles/Vol] 139 mmol/L 136 - 144 mmol/L [facility] Urea nitrogen [Mass/Vol] 26 mg/dL High 7 - 21 mg/dL [facility] MAGNESIUM BLDon 03-12-2023 Magnesium [Mass/Vol] 2.1 mg/dL 1.7 - 2 .3 mg/dL [facility] Comprehensive metabolic 2000 panelon 03-04-2023 Albumin [Mass/Vol] 4.1 g/dL 3.9 - 4.9 g/dL [facility] ALP [Catalytic activity/Vol] 74 U/L 34 - 123 U/L [facility] ALT [Catalytic activity/Vol] 17 U/L 7 - 38 U/L [facility] Anion gap [Moles/Vol] 11 mmol/L 9 - 18 mmol/L [facility] AST [Catalytic activity/Vol] 18 U/L 13 - 35 U/L [facility] Bilirubin [Mass/Vol] 0.5 mg/dL 0.2 - 1 .3 mg/dL [facility] Calcium [Mass/Vol] 9.3 mg/dL 8.5 - 10. 2 mg/dL [facility] Chloride [Moles/Vol] 101 mmol/L 97 - 10 5 mmol/L [facility] CO2 [Moles/Vol] 23 mmol/L 22 - 30 mmol/L [facility] Creatinine [Mass/Vol] 0.76 mg/dL 0.58 - 0.96 mg/dL [facility] Estimated Glomerular Filtration Rate 83 mL/min/1.73m >=60 mL/min/1.[address] [facility] Glucose [Mass/Vol] 85 mg/dL 74 - 99 mg/dL [facility] Potassium [Moles/Vol] 4.6 mmol/L 3.7 - 5.1 mmol/L [facility] Protein [Mass/Vol] 7.2 g/dL 6.3 - 8.0 g/dL [facility] Sodium [Moles/Vol] 135 mmol/L Low 136 - 144 mmol/L [facility] Urea nitrogen [Mass/Vol] 21 mg/dL 7 - 21 mg/dL [facility] No Panel Informationon 03-04 [facility] CBC W Auto Differential pane l (Bld)on 02-12-2023 Basophils (Bld) [#/Vol] 0.03 10*3/uL <0.11 k/uL [facility] Basophils/100 WBC (Bld) 0.8 % [facility] Differential cell count method Nom (Bld) Auto [facility] Eosinophils (Bld) [#/Vol] <0.46 k/uL [facility] Eosinophils/100 WBC (Bld) 0.6 % [facility] Erythrocyte distribution width (RBC) [Ratio] 16.0 % High 11.5 - 15.0 % [facility] Hematocrit (Bld) [Volume fraction] 32.9 % Low 36.0 - 46.0 % [facility] Hemoglobin (Bld) [Mass/Vol] 10.5 g/dL Low 11.5 - 15.5 g/dL [facility] Immature granulocytes (Bld) [#/Vol] <0.10 k/uL [facility] Immature granulocytes/100 WBC (Bld) 0.6 % [facility] Lymphocytes (Bld) [#/Vol] 1.10 10*3/uL 1.00 - 4.00 k/uL [facility] Lymphocytes/100 WBC (Bld) 30.6 % [facility] MCH (RBC) [Entitic mass] 26.6 pg 26.0 - 34.[address] [facility] MCHC (RBC) [Mass/Vol] 31.9 g/dL 30.5 - 36.0 g/dL [facility] MCV (RBC) [Entitic vol] 83.5 fL 80.0 - 100.[address] [facility] Monocytes (Bld) [#/Vol] 0.57 10*3/uL <0.87 k/uL [facility] Monocytes/100 WBC (Bld) 15.8 % [facility] Neutrophils (Bld) [#/Vol] 1.86 10*3/uL 1.45 - 7.50 k/uL [facility] Neutrophils/100 WBC (Bld) 51.6 % [facility] Nucleated RBC (Bld) [#/Vol] <0.01 k/uL [facility] Nucleated RBC/100 WBC (Bld) [Ratio] 0.0 /[address] [facility] Platelet mean volume (Bld) [Entitic vol] 9.3 fL 9.0 - 12.[address] [facility] Platelets (Bld) [#/Vol] 142 10*3/uL Low 150 - 400 k/uL [facility] RBC (Bld) [#/Vol] 3.94 10*6/uL 3.90 - 5.2 0 m/uL [facility] WBC (Bld) [#/Vol] 3.60 10*3/uL Low 3.70 - 11.00 k/uL [facility] Comprehensive metabolic 2000 panelon 02-12-2023 Albumin [Mass/Vol] 4.6 g/dL 3.9 - 4.9 g/dL [facility] ALP [Catalytic activity/Vol] 66 U/L 34 - 123 U/L [facility] ALT [Catalytic activity/Vol] 18 U/L 7 - 38 U/L [facility] Anion gap [Moles/Vol] 11 mmol/L 9 - 18 mmol/L [facility] AST [Catalytic activity/Vol] 21 U/L 13 - 35 U/L [facility] Bilirubin [Mass/Vol] 0.4 mg/dL 0.2 - 1 .3 mg/dL [facility] Calcium [Mass/Vol] 10.1 mg/dL 8.5 - 10. 2 mg/dL [facility] Chloride [Moles/Vol] 102 mmol/L 97 - 10 5 mmol/L [facility] CO2 [Moles/Vol] 26 mmol/L 22 - 30 mmol/L [facility] Creatinine [Mass/Vol] 0.85 mg/dL 0.58 - 0.96 mg/dL [facility] Estimated Glomerular Filtration Rate 72 mL/min/1.73m >=60 mL/min/1.[address] [facility] Glucose [Mass/Vol] 101 mg/dL High 74 - 99 mg/dL [facility] Potassium [Moles/Vol] 4.4 mmol/L 3.7 - 5.1 mmol/L [facility] Protein [Mass/Vol] 7.6 g/dL 6.3 - 8.0 g/dL [facility] Sodium [Moles/Vol] 139 mmol/L 136 - 144 mmol/L [facility] Urea nitrogen [Mass/Vol] 29 mg/dL High 7 - 21 mg/dL [facility] MAGNESIUM BLDon 02-12-2023 Magnesium [Mass/Vol] 2.2 mg/dL 1.7 - 2 .3 mg/dL [facility] CBC W Auto Differential pane l (Bld)on 01-14-2023 Basophils (Bld) [#/Vol] <0.11 k/uL [facility] Basophils/100 WBC (Bld) 0.5 % [facility] Differential cell count method Nom (Bld) Auto [facility] Eosinophils (Bld) [#/Vol] <0.46 k/uL [facility] Eosinophils/100 WBC (Bld) 0.3 % [facility] Erythrocyte distribution width (RBC) [Ratio] 15.0 % 11.5 - 15.0 % [facility] Hematocrit (Bld) [Volume fraction] 33.2 % Low 36.0 - 46.0 % [facility] Hemoglobin (Bld) [Mass/Vol] 10.4 g/dL Low 11.5 - 15.5 g/dL [facility] Immature granulocytes (Bld) [#/Vol] <0.10 k/uL [facility] Immature granulocytes/100 WBC (Bld) 0.5 % [facility] Lymphocytes (Bld) [#/Vol] 1.57 10*3/uL 1.00 - 4.00 k/uL [facility] Lymphocytes/100 WBC (Bld) 41.9 % [facility] MCH (RBC) [Entitic mass] 26.7 pg 26.0 - 34.[address] [facility] MCHC (RBC) [Mass/Vol] 31.3 g/dL 30.5 - 36.0 g/dL [facility] MCV (RBC) [Entitic vol] 85.3 fL 80.0 - 100.[address] [facility] Monocytes (Bld) [#/Vol] 0.56 10*3/uL <0.87 k/uL [facility] Monocytes/100 WBC (Bld) 14.9 % [facility] Neutrophils (Bld) [#/Vol] 1.57 10*3/uL 1.45 - 7.50 k/uL [facility] Neutrophils/100 WBC (Bld) 41.9 % [facility] Nucleated RBC (Bld) [#/Vol] <0.01 k/uL [facility] Nucleated RBC/100 WBC (Bld) [Ratio] 0.0 /[address] [facility] Platelet mean volume (Bld) [Entitic vol] 9.3 fL 9.0 - 12.[address] [facility] Platelets (Bld) [#/Vol] 179 10*3/uL 150 - 400 k/uL [facility] RBC (Bld) [#/Vol] 3.89 10*6/uL Low 3.90 - 5.2 0 m/uL [facility] WBC (Bld) [#/Vol] 3.75 10*3/uL 3.70 - 11.00 k/uL [facility] Comprehensive metabolic 2000 panelon 01-14-2023 Albumin [Mass/Vol] 4.5 g/dL 3.9 - 4.9 g/dL [facility] ALP [Catalytic activity/Vol] 77 U/L 34 - 123 U/L [facility] ALT [Catalytic activity/Vol] 15 U/L 7 - 38 U/L [facility] Anion gap [Moles/Vol] 11 mmol/L 9 - 18 mmol/L [facility] AST [Catalytic activity/Vol] 19 U/L 13 - 35 U/L [facility] Bilirubin [Mass/Vol] 0.3 mg/dL 0.2 - 1 .3 mg/dL [facility] Calcium [Mass/Vol] 9.7 mg/dL 8.5 - 10. 2 mg/dL [facility] Chloride [Moles/Vol] 103 mmol/L 97 - 10 5 mmol/L [facility] CO2 [Moles/Vol] 22 mmol/L 22 - 30 mmol/L [facility] Creatinine [Mass/Vol] 0.78 mg/dL 0.58 - 0.96 mg/dL [facility] Estimated Glomerular Filtration Rate 80 mL/min/1.73m >=60 mL/min/1.[address] [facility] Glucose [Mass/Vol] 115 mg/dL High 74 - 99 mg/dL [facility] Potassium [Moles/Vol] 4.5 mmol/L 3.7 - 5.1 mmol/L [facility] Protein [Mass/Vol] 7.7 g/dL 6.3 - 8.0 g/dL [facility] Sodium [Moles/Vol] 136 mmol/L 136 - 144 mmol/L [facility] Urea nitrogen [Mass/Vol] 28 mg/dL High 7 - 21 mg/dL [facility] MAGNESIUM [facility] 01-14-2023 Magnesium [Mass/Vol] 2.0 mg/dL 1.7 - 2 .3 mg/dL [facility] CA 125 [facility] 11-23-2022 Cancer Ag 125 Qn 11 [arb'U]/mL <39 U/mL [facility] CBC W Auto Differential pane l (Bld)on 11-23-2022 Basophils (Bld) [#/Vol] 0.03 10*3/uL <0.11 k/uL [facility] Basophils/100 WBC (Bld) 0.4 % [facility] Differential cell count method Nom (Bld) Auto [facility] Eosinophils (Bld) [#/Vol] 0.06 10*3/uL <0.46 k/uL [facility] Eosinophils/100 WBC (Bld) 0.8 % [facility] Erythrocyte distribution width (RBC) [Ratio] 15.9 % High 11.5 - 15.0 % [facility] Hematocrit (Bld) [Volume fraction] 33.8 % Low 36.0 - 46.0 % [facility] Hemoglobin (Bld) [Mass/Vol] 10.7 g/dL Low 11.5 - 15.5 g/dL [facility] Immature granulocytes (Bld) [#/Vol] <0.10 k/uL [facility] Immature granulocytes/100 WBC (Bld) 0.3 % [facility] Lymphocytes (Bld) [#/Vol] 1.28 10*3/uL 1.00 - 4.00 k/uL [facility] Lymphocytes/100 WBC (Bld) 18.0 % [facility] MCH (RBC) [Entitic mass] 27.2 pg 26.0 - 34.[address] [facility] MCHC (RBC) [Mass/Vol] 31.7 g/dL 30.5 - 36.0 g/dL [facility] MCV (RBC) [Entitic vol] 85.8 fL 80.0 - 100.[address] [facility] Monocytes (Bld) [#/Vol] 0.64 10*3/uL <0.87 k/uL [facility] Monocytes/100 WBC (Bld) 9.0 % [facility] Neutrophils (Bld) [#/Vol] 5.07 10*3/uL 1.45 - 7.50 k/uL [facility] Neutrophils/100 WBC (Bld) 71.5 % [facility] Nucleated RBC (Bld) [#/Vol] <0.01 k/uL [facility] Nucleated RBC/100 WBC (Bld) [Ratio] 0.0 /[address] [facility] Platelet mean volume (Bld) [Entitic vol] 9.5 fL 9.0 - 12.[address] [facility] Platelets (Bld) [#/Vol] 148 10*3/uL Low 150 - 400 k/uL [facility] RBC (Bld) [#/Vol] 3.94 10*6/uL 3.90 - 5.2 0 m/uL [facility] WBC (Bld) [#/Vol] 7.10 10*3/uL 3.70 - 11.00 k/uL [facility] Comprehensive metabolic 2000 panelon 11-23-2022 Albumin [Mass/Vol] 4.3 g/dL 3.9 - 4.9 g/dL [facility] ALP [Catalytic activity/Vol] 95 U/L 34 - 123 U/L [facility] ALT [Catalytic activity/Vol] 14 U/L 7 - 38 U/L [facility] Anion gap [Moles/Vol] 8 mmol/L Low 9 - 18 mmol/L [facility] AST [Catalytic activity/Vol] 18 U/L 13 - 35 U/L [facility] Bilirubin [Mass/Vol] 0.2 mg/dL 0.2 - 1 .3 mg/dL [facility] Calcium [Mass/Vol] 9.5 mg/dL 8.5 - 10. 2 mg/dL [facility] Chloride [Moles/Vol] 105 mmol/L 97 - 10 5 mmol/L [facility] CO2 [Moles/Vol] 24 mmol/L 22 - 30 mmol/L [facility] Creatinine [Mass/Vol] 0.74 mg/dL 0.58 - 0.96 mg/dL [facility] Estimated Glomerular Filtration Rate 86 mL/min/1.73m >=60 mL/min/1.[address] [facility] Glucose [Mass/Vol] 94 mg/dL 74 - 99 mg/dL [facility] Potassium [Moles/Vol] 4.4 mmol/L 3.7 - 5.1 mmol/L [facility] Protein [Mass/Vol] 7.5 g/dL 6.3 - 8.0 g/dL [facility] Sodium [Moles/Vol] 137 mmol/L 136 - 144 mmol/L [facility] Urea nitrogen [Mass/Vol] 23 mg/dL High 7 - 21 mg/dL [facility] MAGNESIUM BLDon 11-23-2022 Magnesium [Mass/Vol] 2.2 mg/dL 1.7 - 2 .3 mg/dL [facility] No Panel Informationon 11-23 [facility] CBC W Auto Differential pane l (Bld)on 11-17-2022 Basophils (Bld) [#/Vol] 0.03 10*3/uL <0.11 k/uL [facility] Basophils/100 WBC (Bld) 0.3 % [facility] Differential cell count method Nom (Bld) Auto [facility] Eosinophils (Bld) [#/Vol] 0.06 10*3/uL <0.46 k/uL [facility] Eosinophils/100 WBC (Bld) 0.5 % [facility] Erythrocyte distribution width (RBC) [Ratio] 16.0 % High 11.5 - 15.0 % [facility] Hematocrit (Bld) [Volume fraction] 33.1 % Low 36.0 - 46.0 % [facility] Hemoglobin (Bld) [Mass/Vol] 10.5 g/dL Low 11.5 - 15.5 g/dL [facility] Immature granulocytes (Bld) [#/Vol] 0.05 10*3/uL <0.10 k/uL [facility] Immature granulocytes/100 WBC (Bld) 0.5 % [facility] Lymphocytes (Bld) [#/Vol] 1.55 10*3/uL 1.00 - 4.00 k/uL [facility] Lymphocytes/100 WBC (Bld) 14.0 % [facility] MCH (RBC) [Entitic mass] 27.0 pg 26.0 - 34.[address] [facility] MCHC (RBC) [Mass/Vol] 31.7 g/dL 30.5 - 36.0 g/dL [facility] MCV (RBC) [Entitic vol] 85.1 fL 80.0 - 100.[address] [facility] Monocytes (Bld) [#/Vol] 0.91 10*3/uL High <0.87 k/uL [facility] Monocytes/100 WBC (Bld) 8.2 % [facility] Neutrophils (Bld) [#/Vol] 8.50 10*3/uL High 1.45 - 7.50 k/uL [facility] Neutrophils/100 WBC (Bld) 76.5 % [facility] Nucleated RBC (Bld) [#/Vol] <0.01 k/uL [facility] Nucleated RBC/100 WBC (Bld) [Ratio] 0.0 /[address] [facility] Platelet mean volume (Bld) [Entitic vol] 10.0 fL 9.0 - 12.[address] [facility] Platelets (Bld) [#/Vol] 146 10*3/uL Low 150 - 400 k/uL [facility] RBC (Bld) [#/Vol] 3.89 10*6/uL Low 3.90 - 5.2 0 m/uL [facility] WBC (Bld) [#/Vol] 11.10 10*3/uL High 3.70 - 11.00 k/uL [facility] CBC W Auto Differential pane l (Bld)on 10-30-2022 Basophils (Bld) [#/Vol] 0.06 10*3/uL <0.11 k/uL [facility] Basophils/100 WBC (Bld) 0.6 % [facility] Differential cell count method Nom (Bld) Auto [facility] Eosinophils (Bld) [#/Vol] 0.04 10*3/uL <0.46 k/uL [facility] Eosinophils/100 WBC (Bld) 0.4 % [facility] Erythrocyte distribution width (RBC) [Ratio] 17.3 % High 11.5 - 15.0 % [facility] Hematocrit (Bld) [Volume fraction] 33.5 % Low 36.0 - 46.0 % [facility] Hemoglobin (Bld) [Mass/Vol] 10.9 g/dL Low 11.5 - 15.5 g/dL [facility] Immature granulocytes (Bld) [#/Vol] 0.04 10*3/uL <0.10 k/uL [facility] Immature granulocytes/100 WBC (Bld) 0.4 % [facility] Lymphocytes (Bld) [#/Vol] 1.42 10*3/uL 1.00 - 4.00 k/uL [facility] Lymphocytes/100 WBC (Bld) 13.6 % [facility] MCH (RBC) [Entitic mass] 27.5 pg 26.0 - 34.[address] [facility] MCHC (RBC) [Mass/Vol] 32.5 g/dL 30.5 - 36.0 g/dL [facility] MCV (RBC) [Entitic vol] 84.6 fL 80.0 - 100.[address] [facility] Monocytes (Bld) [#/Vol] 1.05 10*3/uL High <0.87 k/uL [facility] Monocytes/100 WBC (Bld) 10.1 % [facility] Neutrophils (Bld) [#/Vol] 7.80 10*3/uL High 1.45 - 7.50 k/uL [facility] Neutrophils/100 WBC (Bld) 74.9 % [facility] Nucleated RBC (Bld) [#/Vol] <0.01 k/uL [facility] Nucleated RBC/100 WBC (Bld) [Ratio] 0.0 /[address] [facility] Platelet mean volume (Bld) [Entitic vol] 10.0 fL 9.0 - 12.[address] [facility] Platelets (Bld) [#/Vol] 132 10*3/uL Low 150 - 400 k/uL [facility] RBC (Bld) [#/Vol] 3.96 10*6/uL 3.90 - 5.2 0 m/uL [facility] WBC (Bld) [#/Vol] 10.41 10*3/uL 3.70 - 11.00 k/uL [facility] Comprehensive metabolic 2000 panelon 10-30-2022 Albumin [Mass/Vol] 4.5 g/dL 3.9 - 4.9 g/dL [facility] ALP [Catalytic activity/Vol] 121 U/L 34 - 123 U/L [facility] ALT [Catalytic activity/Vol] 17 U/L 7 - 38 U/L [facility] Anion gap [Moles/Vol] 9 mmol/L 9 - 18 mmol/L [facility] AST [Catalytic activity/Vol] 20 U/L 13 - 35 U/L [facility] Bilirubin [Mass/Vol] 0.3 mg/dL 0.2 - 1 .3 mg/dL [facility] Calcium [Mass/Vol] 9.2 mg/dL 8.5 - 10. 2 mg/dL [facility] Chloride [Moles/Vol] 102 mmol/L 97 - 10 5 mmol/L [facility] CO2 [Moles/Vol] 26 mmol/L 22 - 30 mmol/L [facility] Creatinine [Mass/Vol] 0.80 mg/dL 0.58 - 0.96 mg/dL [facility] Estimated Glomerular Filtration Rate 78 mL/min/1.73m >=60 mL/min/1.[address] [facility] Glucose [Mass/Vol] 110 mg/dL High 74 - 99 mg/dL [facility] Potassium [Moles/Vol] 4.5 mmol/L 3.7 - 5.1 mmol/L [facility] Protein [Mass/Vol] 7.6 g/dL 6.3 - 8.0 g/dL [facility] Sodium [Moles/Vol] 137 mmol/L 136 - 144 mmol/L [facility] Urea nitrogen [Mass/Vol] 33 mg/dL High 7 - 21 mg/dL [facility] MAGNESIUM BLDon 10-30-2022 Magnesium [Mass/Vol] 2.1 mg/dL 1.7 - 2 .3 mg/dL [facility] CBC W Auto Differential pane l (Bld)on 10-09-2022 Basophils (Bld) [#/Vol] 0.04 10*3/uL <0.11 k/uL [facility] Basophils/100 WBC (Bld) 0.5 % [facility] Differential cell count method Nom (Bld) Auto [facility] Eosinophils (Bld) [#/Vol] 0.06 10*3/uL <0.46 k/uL [facility] Eosinophils/100 WBC (Bld) 0.7 % [facility] Erythrocyte distribution width (RBC) [Ratio] 18.0 % High 11.5 - 15.0 % [facility] Hematocrit (Bld) [Volume fraction] 35.8 % Low 36.0 - 46.0 % [facility] Hemoglobin (Bld) [Mass/Vol] 11.6 g/dL 11.5 - 15.5 g/dL [facility] Immature granulocytes (Bld) [#/Vol] 0.03 10*3/uL <0.10 k/uL [facility] Immature granulocytes/100 WBC (Bld) 0.4 % [facility] Lymphocytes (Bld) [#/Vol] 1.16 10*3/uL 1.00 - 4.00 k/uL [facility] Lymphocytes/100 WBC (Bld) 13.9 % [facility] MCH (RBC) [Entitic mass] 27.2 pg 26.0 - 34.[address] [facility] MCHC (RBC) [Mass/Vol] 32.4 g/dL 30.5 - 36.0 g/dL [facility] MCV (RBC) [Entitic vol] 83.8 fL 80.0 - 100.[address] [facility] Monocytes (Bld) [#/Vol] 0.96 10*3/uL High <0.87 k/uL [facility] Monocytes/100 WBC (Bld) 11.5 % [facility] Neutrophils (Bld) [#/Vol] 6.08 10*3/uL 1.45 - 7.50 k/uL [facility] Neutrophils/100 WBC (Bld) 73.0 % [facility] Nucleated RBC (Bld) [#/Vol] <0.01 k/uL [facility] Nucleated RBC/100 WBC (Bld) [Ratio] 0.0 /[address] [facility] Platelet mean volume (Bld) [Entitic vol] 10.5 fL 9.0 - 12.[address] [facility] Platelets (Bld) [#/Vol] 154 10*3/uL 150 - 400 k/uL [facility] RBC (Bld) [#/Vol] 4.27 10*6/uL 3.90 - 5.2 0 m/uL [facility] WBC (Bld) [#/Vol] 8.33 10*3/uL 3.70 - 11.00 k/uL [facility] Comprehensive metabolic 2000 panelon 10-09-2022 Albumin [Mass/Vol] 4.3 g/dL 3.9 - 4.9 g/dL [facility] ALP [Catalytic activity/Vol] 112 U/L 34 - 123 U/L [facility] ALT [Catalytic activity/Vol] 20 U/L 7 - 38 U/L [facility] Anion gap [Moles/Vol] 11 mmol/L 9 - 18 mmol/L [facility] AST [Catalytic activity/Vol] 20 U/L 13 - 35 U/L [facility] Bilirubin [Mass/Vol] 0.4 mg/dL 0.2 - 1 .3 mg/dL [facility] Calcium [Mass/Vol] 9.7 mg/dL 8.5 - 10. 2 mg/dL [facility] Chloride [Moles/Vol] 103 mmol/L 97 - 10 5 mmol/L [facility] CO2 [Moles/Vol] 27 mmol/L 22 - 30 mmol/L [facility] Creatinine [Mass/Vol] 0.86 mg/dL 0.58 - 0.96 mg/dL [facility] Estimated Glomerular Filtration Rate 71 mL/min/1.73m >=60 mL/min/1.[address] [facility] Glucose [Mass/Vol] 100 mg/dL High 74 - 99 mg/dL [facility] Potassium [Moles/Vol] 4.7 mmol/L 3.7 - 5.1 mmol/L [facility] Protein [Mass/Vol] 7.6 g/dL 6.3 - 8.0 g/dL [facility] Sodium [Moles/Vol] 141 mmol/L 136 - 144 mmol/L [facility] Urea nitrogen [Mass/Vol] 25 mg/dL High 7 - 21 mg/dL [facility] MAGNESIUM BLDon 10-09-2022 Magnesium [Mass/Vol] 2.1 mg/dL 1.7 - 2 .3 mg/dL [facility] No Panel Informationon 10-01 [facility] XR KNEE LIMITED 2V AP/LAT LE FTon 09-18-2022 [facility] XR KNEE LIMITED 2V AP/LAT RI GHTon 09-18-2022 [facility] CBC W Auto Differential pane l (Bld)on 08-28-2022 Basophils (Bld) [#/Vol] 0.03 10*3/uL <0.11 k/uL [facility] Basophils/100 WBC (Bld) 0.4 % [facility] Differential cell count method Nom (Bld) Auto [facility] Eosinophils (Bld) [#/Vol] 0.04 10*3/uL <0.46 k/uL [facility] Eosinophils/100 WBC (Bld) 0.5 % [facility] Erythrocyte distribution width (RBC) [Ratio] 17.1 % High 11.5 - 15.0 % [facility] Hematocrit (Bld) [Volume fraction] 34.8 % Low 36.0 - 46.0 % [facility] Hemoglobin (Bld) [Mass/Vol] 11.5 g/dL 11.5 - 15.5 g/dL [facility] Immature granulocytes (Bld) [#/Vol] 0.05 10*3/uL <0.10 k/uL [facility] Immature granulocytes/100 WBC (Bld) 0.6 % [facility] Lymphocytes (Bld) [#/Vol] 1.10 10*3/uL 1.00 - 4.00 k/uL [facility] Lymphocytes/100 WBC (Bld) 13.8 % [facility] [facility] MCH (RBC) [Entitic mass] 27.3 pg 26.0 - 34.[address] [facility] MCHC (RBC) [Mass/Vol] 33.0 g/dL 30.5 - 36.0 g/dL [facility] MCV (RBC) [Entitic vol] 82.5 fL 80.0 - 100.[address] [facility] Monocytes (Bld) [#/Vol] 0.63 10*3/uL <0.87 k/uL [facility] Monocytes/100 WBC (Bld) 7.9 % [facility] Neutrophils (Bld) [#/Vol] 6.12 10*3/uL 1.45 - 7.50 k/uL [facility] Neutrophils/100 WBC (Bld) 76.8 % [facility] Nucleated RBC (Bld) [#/Vol] <0.01 k/uL [facility] Nucleated RBC/100 WBC (Bld) [Ratio] 0.0 /[address] [facility] Platelet mean volume (Bld) [Entitic vol] 9.7 fL 9.0 - 12.[address] [facility] Platelets (Bld) [#/Vol] 138 10*3/uL Low 150 - 400 k/uL [facility] RBC (Bld) [#/Vol] 4.22 10*6/uL 3.90 - 5.2 0 m/uL [facility] WBC (Bld) [#/Vol] 7.97 10*3/uL 3.70 - 11.00 k/uL [facility] Comprehensive metabolic 2000 panelon 08-28-2022 Albumin [Mass/Vol] 4.3 g/dL 3.9 - 4.9 g/dL [facility] ALP [Catalytic activity/Vol] 114 U/L 34 - 123 U/L [facility] ALT [Catalytic activity/Vol] 15 U/L 7 - 38 U/L [facility] Anion gap [Moles/Vol] 7 mmol/L Low 9 - 18 mmol/L [facility] AST [Catalytic activity/Vol] 18 U/L 13 - 35 U/L [facility] Bilirubin [Mass/Vol] 0.4 mg/dL 0.2 - 1 .3 mg/dL [facility] Calcium [Mass/Vol] 9.9 mg/dL 8.5 - 10. 2 mg/dL [facility] Chloride [Moles/Vol] 104 mmol/L 97 - 10 5 mmol/L [facility] CO2 [Moles/Vol] 28 mmol/L 22 - 30 mmol/L [facility] Creatinine [Mass/Vol] 0.74 mg/dL 0.58 - 0.96 mg/dL [facility] Estimated Glomerular Filtration Rate 86 mL/min/1.73m >=60 mL/min/1.[address] [facility] Glucose [Mass/Vol] 106 mg/dL High 74 - 99 mg/dL [facility] Potassium [Moles/Vol] 4.2 mmol/L 3.7 - 5.1 mmol/L [facility] Protein [Mass/Vol] 7.1 g/dL 6.3 - 8.0 g/dL [facility] Sodium [Moles/Vol] 139 mmol/L 136 - 144 mmol/L [facility] Urea nitrogen [Mass/Vol] 26 mg/dL High 7 - 21 mg/dL [facility] MAGNESIUM BLDon 08-28-2022 Magnesium [Mass/Vol] 2.1 mg/dL 1.7 - 2 .3 mg/dL [facility] YAYO SCREENING W TOMOon 08-[address] [facility] [address] ABD/PEL W IVCONon 023 [facility] CBC W Auto Differential pane l (Bld)on 08-04-2022 Basophils (Bld) [#/Vol] 0.07 10*3/uL <0.11 k/uL [facility] Basophils/100 WBC (Bld) 0.6 % [facility] Differential cell count method Nom (Bld) Auto [facility] Eosinophils (Bld) [#/Vol] 0.03 10*3/uL <0.46 k/uL [facility] Eosinophils/100 WBC (Bld) 0.3 % [facility] Erythrocyte distribution width (RBC) [Ratio] 15.4 % High 11.5 - 15.0 % [facility] Hematocrit (Bld) [Volume fraction] 34.9 % Low 36.0 - 46.0 % [facility] Hemoglobin (Bld) [Mass/Vol] 11.4 g/dL Low 11.5 - 15.5 g/dL [facility] Immature granulocytes (Bld) [#/Vol] 0.11 10*3/uL High <0.10 k/uL [facility] Immature granulocytes/100 WBC (Bld) 1.0 % [facility] Lymphocytes (Bld) [#/Vol] 1.45 10*3/uL 1.00 - 4.00 k/uL [facility] Lymphocytes/100 WBC (Bld) 13.0 % [facility] MCH (RBC) [Entitic mass] 26.4 pg 26.0 - 34.[address] [facility] MCHC (RBC) [Mass/Vol] 32.7 g/dL 30.5 - 36.0 g/dL [facility] MCV (RBC) [Entitic vol] 80.8 fL 80.0 - 100.[address] [facility] Monocytes (Bld) [#/Vol] 1.08 10*3/uL High <0.87 k/uL [facility] Monocytes/100 WBC (Bld) 9.7 % [facility] Neutrophils (Bld) [#/Vol] 8.45 10*3/uL High 1.45 - 7.50 k/uL [facility] Neutrophils/100 WBC (Bld) 75.4 % [facility] Nucleated RBC (Bld) [#/Vol] <0.01 k/uL [facility] Nucleated RBC/100 WBC (Bld) [Ratio] 0.0 /[address] [facility] Platelet mean volume (Bld) [Entitic vol] 9.9 fL 9.0 - 12.[address] [facility] Platelets (Bld) [#/Vol] 191 10*3/uL 150 - 400 k/uL [facility] RBC (Bld) [#/Vol] 4.32 10*6/uL 3.90 - 5.2 0 m/uL [facility] WBC (Bld) [#/Vol] 11.19 10*3/uL High 3.70 - 11.00 k/uL [facility] Comprehensive metabolic 2000 panelon 08-04-2022 Albumin [Mass/Vol] 4.3 g/dL 3.9 - 4.9 g/dL [facility] ALP [Catalytic activity/Vol] 93 U/L 34 - 123 U/L [facility] ALT [Catalytic activity/Vol] 11 U/L 7 - 38 U/L [facility] Anion gap [Moles/Vol] 11 mmol/L 9 - 18 mmol/L [facility] AST [Catalytic activity/Vol] 18 U/L 13 - 35 U/L [facility] Bilirubin [Mass/Vol] 0.4 mg/dL 0.2 - 1 .3 mg/dL [facility] Calcium [Mass/Vol] 9.0 mg/dL 8.5 - 10. 2 mg/dL [facility] Chloride [Moles/Vol] 102 mmol/L 97 - 10 5 mmol/L [facility] CO2 [Moles/Vol] 24 mmol/L 22 - 30 mmol/L [facility] Creatinine [Mass/Vol] 0.71 mg/dL 0.58 - 0.96 mg/dL [facility] Estimated Glomerular Filtration Rate 90 mL/min/1.73m >=60 mL/min/1.[address] [facility] Glucose [Mass/Vol] 115 mg/dL High 74 - 99 mg/dL [facility] Potassium [Moles/Vol] 4.4 mmol/L 3.7 - 5.1 mmol/L [facility] Protein [Mass/Vol] 7.0 g/dL 6.3 - 8.0 g/dL [facility] Sodium [Moles/Vol] 137 mmol/L 136 - 144 mmol/L [facility] Urea nitrogen [Mass/Vol] 23 mg/dL High 7 - 21 mg/dL [facility] MAGNESIUM [facility] 08-04-2022 Magnesium [Mass/Vol] 2.0 mg/dL 1.7 - 2 .3 mg/dL [facility] CA 125 [facility] 07-20-2022 Cancer Ag 125 Qn 483 [arb'U]/mL High <39 U/mL [facility] CBC W Auto Differential pane l (Bld)on 07-20-2022 Basophils (Bld) [#/Vol] <0.11 k/uL [facility] Basophils/100 WBC (Bld) 0.0 % [facility] Differential cell count method Nom (Bld) Auto [facility] Eosinophils (Bld) [#/Vol] <0.46 k/uL [facility] Eosinophils/100 WBC (Bld) 0.0 % [facility] Erythrocyte distribution width (RBC) [Ratio] 14.5 % 11.5 - 15.0 % [facility] Hematocrit (Bld) [Volume fraction] 36.4 % 36.0 - 46.0 % [facility] Hemoglobin (Bld) [Mass/Vol] 12.1 g/dL 11.5 - 15.5 g/dL [facility] Immature granulocytes (Bld) [#/Vol] <0.10 k/uL [facility] Immature granulocytes/100 WBC (Bld) 0.2 % [facility] Lymphocytes (Bld) [#/Vol] 0.60 10*3/uL Low 1.00 - 4.00 k/uL [facility] Lymphocytes/100 WBC (Bld) 11.1 % [facility] MCH (RBC) [Entitic mass] 26.7 pg 26.0 - 34.[address] [facility] MCHC (RBC) [Mass/Vol] 33.2 g/dL 30.5 - 36.0 g/dL [facility] MCV (RBC) [Entitic vol] 80.2 fL 80.0 - 100.[address] [facility] Monocytes (Bld) [#/Vol] <0.87 k/uL [facility] Monocytes/100 WBC (Bld) 0.4 % [facility] Neutrophils (Bld) [#/Vol] 4.77 10*3/uL 1.45 - 7.50 k/uL [facility] Neutrophils/100 WBC (Bld) 88.3 % [facility] Nucleated RBC (Bld) [#/Vol] <0.01 k/uL [facility] Nucleated RBC/100 WBC (Bld) [Ratio] 0.0 /[address] [facility] Platelet mean volume (Bld) [Entitic vol] 9.4 fL 9.0 - 12.[address] [facility] Platelets (Bld) [#/Vol] 148 10*3/uL Low 150 - 400 k/uL [facility] RBC (Bld) [#/Vol] 4.54 10*6/uL 3.90 - 5.2 0 m/uL [facility] WBC (Bld) [#/Vol] 5.40 10*3/uL 3.70 - 11.00 k/uL [facility] Comprehensive metabolic 2000 panelon 07-20-2022 Albumin [Mass/Vol] 4.6 g/dL 3.9 - 4.9 g/dL [facility] ALP [Catalytic activity/Vol] 83 U/L 34 - 123 U/L [facility] ALT [Catalytic activity/Vol] 14 U/L 7 - 38 U/L [facility] Anion gap [Moles/Vol] 12 mmol/L 9 - 18 mmol/L [facility] AST [Catalytic activity/Vol] 22 U/L 13 - 35 U/L [facility] Bilirubin [Mass/Vol] 0.6 mg/dL 0.2 - 1 .3 mg/dL [facility] Calcium [Mass/Vol] 9.4 mg/dL 8.5 - 10. 2 mg/dL [facility] Chloride [Moles/Vol] 101 mmol/L 97 - 10 5 mmol/L [facility] CO2 [Moles/Vol] 23 mmol/L 22 - 30 mmol/L [facility] Creatinine [Mass/Vol] 0.73 mg/dL 0.58 - 0.96 mg/dL [facility] Estimated Glomerular Filtration Rate 87 mL/min/1.73m >=60 mL/min/1.[address] [facility] Glucose [Mass/Vol] 216 mg/dL High 74 - 99 mg/dL [facility] Potassium [Moles/Vol] 4.2 mmol/L 3.7 - 5.1 mmol/L [facility] Protein [Mass/Vol] 7.6 g/dL 6.3 - 8.0 g/dL [facility] Sodium [Moles/Vol] 136 mmol/L 136 - 144 mmol/L [facility] Urea nitrogen [Mass/Vol] 34 mg/dL High 7 - 21 mg/dL [facility] MAGNESIUM Don 07-20-2022 Magnesium [Mass/Vol] 2.2 mg/dL 1.7 - 2 .3 mg/dL [facility] CREATININE Don 06-29-2022 Creatinine [Mass/Vol] 0.77 mg/dL 0.58 - 0.96 mg/dL [facility] Estimated Glomerular Filtration Rate 82 mL/min/1.73m >=60 mL/min/1.[address] [facility] No Panel Informationon 06-[address] [facility] [address] ABD/PEL W IVCONon 022 [facility] CBC W Auto Differential pane l (Bld)on 04-13-2022 Basophils (Bld) [#/Vol] <0.11 k/uL [facility] Basophils/100 WBC (Bld) 0.3 % [facility] Differential cell count method Nom (Bld) Auto [facility] Eosinophils (Bld) [#/Vol] 0.04 10*3/uL <0.46 k/uL [facility] Eosinophils/100 WBC (Bld) 0.7 % [facility] Erythrocyte distribution width (RBC) [Ratio] 14.7 % 11.5 - 15.0 % [facility] Hematocrit (Bld) [Volume fraction] 37.6 % 36.0 - 46.0 % [facility] Hemoglobin (Bld) [Mass/Vol] 12.0 g/dL 11.5 - 15.5 g/dL [facility] Immature granulocytes (Bld) [#/Vol] <0.10 k/uL [facility] Immature granulocytes/100 WBC (Bld) 0.2 % [facility] Lymphocytes (Bld) [#/Vol] 1.44 10*3/uL 1.00 - 4.00 k/uL [facility] Lymphocytes/100 WBC (Bld) 24.9 % [facility] MCH (RBC) [Entitic mass] 26.8 pg 26.0 - 34.[address] [facility] MCHC (RBC) [Mass/Vol] 31.9 g/dL 30.5 - 36.0 g/dL [facility] MCV (RBC) [Entitic vol] 84.1 fL 80.0 - 100.[address] [facility] Monocytes (Bld) [#/Vol] 0.56 10*3/uL <0.87 k/uL [facility] Monocytes/100 WBC (Bld) 9.7 % [facility] Neutrophils (Bld) [#/Vol] 3.71 10*3/uL 1.45 - 7.50 k/uL [facility] Neutrophils/100 WBC (Bld) 64.2 % [facility] Nucleated RBC (Bld) [#/Vol] <0.01 k/uL [facility] Nucleated RBC/100 WBC (Bld) [Ratio] 0.0 /[address] [facility] Platelet mean volume (Bld) [Entitic vol] 9.9 fL 9.0 - 12.[address] [facility] Platelets (Bld) [#/Vol] 143 10*3/uL Low 150 - 400 k/uL [facility] RBC (Bld) [#/Vol] 4.47 10*6/uL 3.90 - 5.2 0 m/uL [facility] WBC (Bld) [#/Vol] 5.78 10*3/uL 3.70 - 11.00 k/uL [facility] Comprehensive metabolic 2000 panelon 04-13-2022 Albumin [Mass/Vol] 4.7 g/dL 3.9 - 4.9 g/dL [facility] ALP [Catalytic activity/Vol] 87 U/L 34 - 123 U/L [facility] ALT [Catalytic activity/Vol] 14 U/L 7 - 38 U/L [facility] Anion gap [Moles/Vol] 9 mmol/L 9 - 18 mmol/L [facility] AST [Catalytic activity/Vol] 19 U/L 13 - 35 U/L [facility] Bilirubin [Mass/Vol] 0.5 mg/dL 0.2 - 1 .3 mg/dL [facility] Calcium [Mass/Vol] 9.8 mg/dL 8.5 - 10. 2 mg/dL [facility] Chloride [Moles/Vol] 103 mmol/L 97 - 10 5 mmol/L [facility] CO2 [Moles/Vol] 26 mmol/L 22 - 30 mmol/L [facility] Creatinine [Mass/Vol] 0.79 mg/dL 0.58 - 0.96 mg/dL [facility] Estimated Glomerular Filtration Rate 79 mL/min/1.73m >=60 mL/min/1.[address] [facility] Glucose [Mass/Vol] 103 mg/dL High 74 - 99 mg/dL [facility] Potassium [Moles/Vol] 4.2 mmol/L 3.7 - 5.1 mmol/L [facility] Protein [Mass/Vol] 7.2 g/dL 6.3 - 8.0 g/dL [facility] Sodium [Moles/Vol] 138 mmol/L 136 - 144 mmol/L [facility] Urea nitrogen [Mass/Vol] 27 mg/dL High 7 - 21 mg/dL [facility] CBC W Auto Differential pane l (Bld)on 03-23-2022 Abs Immature Gran <0.10 k/uL [facility] Basophils (Bld) [#/Vol] <0.11 k/uL [facility] Basophils/100 WBC (Bld) 0.3 % [facility] Differential cell count method Nom (Bld) Auto [facility] Eosinophils (Bld) [#/Vol] 0.04 10*3/uL <0.46 k/uL [facility] Eosinophils/100 WBC (Bld) 0.7 % [facility] Erythrocyte distribution width (RBC) [Ratio] 14.5 % 11.5 - 15.0 % [facility] Hematocrit (Bld) [Volume fraction] 38.2 % 36.0 - 46.0 % [facility] Hemoglobin (Bld) [Mass/Vol] 12.4 g/dL 11.5 - 15.5 g/dL [facility] Immature Gran % 0.3 % [facility] Lymphocytes (Bld) [#/Vol] 1.42 10*3/uL 1.00 - 4.00 k/uL [facility] Lymphocytes/100 WBC (Bld) 23.8 % [facility] MCH (RBC) [Entitic mass] 27.2 pg 26.0 - 34.[address] [facility] MCHC (RBC) [Mass/Vol] 32.5 g/dL 30.5 - 36.0 g/dL [facility] MCV (RBC) [Entitic vol] 83.8 fL 80.0 - 100.[address] [facility] Monocytes (Bld) [#/Vol] 0.55 10*3/uL <0.87 k/uL [facility] Monocytes/100 WBC (Bld) 9.2 % [facility] Neutrophils (Bld) [#/Vol] 3.92 10*3/uL 1.45 - 7.50 k/uL [facility] Neutrophils/100 WBC (Bld) 65.7 % [facility] Nucleated RBC (Bld) [#/Vol] <0.01 k/uL [facility] Nucleated RBC/100 WBC (Bld) [Ratio] 0.0 /[address] [facility] Platelet mean volume (Bld) [Entitic vol] 9.6 fL 9.0 - 12.[address] [facility] Platelets (Bld) [#/Vol] 139 10*3/uL Low 150 - 400 k/uL [facility] RBC (Bld) [#/Vol] 4.56 10*6/uL 3.90 - 5.2 0 m/uL [facility] WBC (Bld) [#/Vol] 5.97 10*3/uL 3.70 - 11.00 k/uL [facility] CBC W Auto Differential pane l (Bld)on 02-24-2022 Abs Immature Gran 0.03 k/uL <0.10 k/uL [facility] Basophils (Bld) [#/Vol] <0.11 k/uL [facility] Basophils/100 WBC (Bld) 0.3 % [facility] Differential cell count method Nom (Bld) Auto [facility] Eosinophils (Bld) [#/Vol] 0.05 10*3/uL <0.46 k/uL [facility] Eosinophils/100 WBC (Bld) 0.9 % [facility] Erythrocyte distribution width (RBC) [Ratio] 14.9 % 11.5 - 15.0 % [facility] Hematocrit (Bld) [Volume fraction] 37.8 % 36.0 - 46.0 % [facility] Hemoglobin (Bld) [Mass/Vol] 12.2 g/dL 11.5 - 15.5 g/dL [facility] Immature Gran % 0.5 % [facility] Lymphocytes (Bld) [#/Vol] 1.51 10*3/uL 1.00 - 4.00 k/uL [facility] Lymphocytes/100 WBC (Bld) 26.2 % [facility] MCH (RBC) [Entitic mass] 26.9 pg 26.0 - 34.[address] [facility] MCHC (RBC) [Mass/Vol] 32.3 g/dL 30.5 - 36.0 g/dL [facility] MCV (RBC) [Entitic vol] 83.4 fL 80.0 - 100.[address] [facility] Monocytes (Bld) [#/Vol] 0.59 10*3/uL <0.87 k/uL [facility] Monocytes/100 WBC (Bld) 10.2 % [facility] Neutrophils (Bld) [#/Vol] 3.56 10*3/uL 1.45 - 7.50 k/uL [facility] Neutrophils/100 WBC (Bld) 61.9 % [facility] Nucleated RBC (Bld) [#/Vol] <0.01 k/uL [facility] Nucleated RBC/100 WBC (Bld) [Ratio] 0.0 /[address] [facility] Platelet mean volume (Bld) [Entitic vol] 10.0 fL 9.0 - 12.[address] [facility] Platelets (Bld) [#/Vol] 139 10*3/uL Low 150 - 400 k/uL [facility] RBC (Bld) [#/Vol] 4.53 10*6/uL 3.90 - 5.2 0 m/uL [facility] WBC (Bld) [#/Vol] 5.76 10*3/uL 3.70 - 11.00 k/uL [facility] CBC W Auto Differential pane l (Bld)on 01-19-2022 Abs Immature Gran <0.03 <0.10 k/[facility]L [facility] Basophils (Bld) [#/Vol] 0.03 10*3/uL <0.11 k/uL [facility] Basophils/100 WBC (Bld) 0.6 % [facility] Differential cell count method Nom (Bld) Auto [facility] Eosinophils (Bld) [#/Vol] 0.05 10*3/uL <0.46 k/uL [facility] Eosinophils/100 WBC (Bld) 0.9 % [facility] Erythrocyte distribution width (RBC) [Ratio] 15.1 % High 11.5 - 15.0 % [facility] Hematocrit (Bld) [Volume fraction] 37.7 % 36.0 - 46.0 % [facility] Hemoglobin (Bld) [Mass/Vol] 12.1 g/dL 11.5 - 15.5 g/dL [facility] Immature Gran % 0.2 % [facility] Lymphocytes (Bld) [#/Vol] 1.35 10*3/uL 1.00 - 4.00 k/uL [facility] Lymphocytes/100 WBC (Bld) 25.1 % [facility] MCH (RBC) [Entitic mass] 26.8 pg 26.0 - 34.[address] [facility] MCHC (RBC) [Mass/Vol] 32.1 g/dL 30.5 - 36.0 g/dL [facility] MCV (RBC) [Entitic vol] 83.6 fL 80.0 - 100.[address] [facility] Monocytes (Bld) [#/Vol] 0.52 10*3/uL <0.87 k/uL [facility] Monocytes/100 WBC (Bld) 9.7 % [facility] Neutrophils (Bld) [#/Vol] 3.41 10*3/uL 1.45 - 7.50 k/uL [facility] Neutrophils/100 WBC (Bld) 63.5 % [facility] Nucleated RBC (Bld) [#/Vol] 10*3/uL <0.01 k/uL [facility] Nucleated RBC/100 WBC (Bld) [Ratio] 0.0 /[address] [facility] Platelet mean volume (Bld) [Entitic vol] 10.0 fL 9.0 - 12.[address] [facility] Platelets (Bld) [#/Vol] 137 10*3/uL Low 150 - 400 k/uL [facility] RBC (Bld) [#/Vol] 4.51 10*6/uL 3.90 - 5.2 0 m/uL [facility] WBC (Bld) [#/Vol] 5.37 10*3/uL 3.70 - 11.00 k/uL [facility] Comprehensive metabolic 2000 panelon 01-19-2022 Albumin [Mass/Vol] 4.6 g/dL 3.9 - 4.9 g/dL [facility] ALP [Catalytic activity/Vol] 83 U/L 34 - 123 U/L [facility] ALT [Catalytic activity/Vol] 11 U/L 7 - 38 U/L [facility] Anion gap [Moles/Vol] 12 mmol/L 9 - 18 mmol/L [facility] AST [Catalytic activity/Vol] 20 U/L 13 - 35 U/L [facility] Bilirubin [Mass/Vol] 0.8 mg/dL 0.2 - 1 .3 mg/dL [facility] Calcium [Mass/Vol] 9.4 mg/dL 8.5 - 10. 2 mg/dL [facility] Chloride [Moles/Vol] 101 mmol/L 97 - 10 5 mmol/L [facility] CO2 [Moles/Vol] 24 mmol/L 22 - 30 mmol/L [facility] Creatinine [Mass/Vol] 0.76 mg/dL 0.58 - 0.96 mg/dL [facility] Estimated Glomerular Filtration Rate 83 mL/min/1.73m >=60 mL/min/1.[address] [facility] Glucose [Mass/Vol] 89 mg/dL 74 - 99 mg/dL [facility] Potassium [Moles/Vol] 4.3 mmol/L 3.7 - 5.1 mmol/L [facility] Protein [Mass/Vol] 7.3 g/dL 6.3 - 8.0 g/dL [facility] Sodium [Moles/Vol] 137 mmol/L 136 - 144 mmol/L [facility] Urea nitrogen [Mass/Vol] 26 mg/dL High 7 - 21 mg/dL [facility] MRI BREAST WO/W IVCON BILATo n 12-31-2021 [facility] CBC W Auto Differential pane l (Bld)on 11-24-2021 Abs Immature Gran <0.03 <0.10 k/uL [facility] Basophils (Bld) [#/Vol] 10*3/uL <0.11 k/uL [facility] Basophils/100 WBC (Bld) 0.2 % [facility] Differential cell count method Nom (Bld) Auto [facility] Eosinophils (Bld) [#/Vol] 0.05 10*3/uL <0.46 k/uL [facility] Eosinophils/100 WBC (Bld) 1.0 % [facility] Erythrocyte distribution width (RBC) [Ratio] 15.7 % High 11.5 - 15.0 % [facility] Hematocrit (Bld) [Volume fraction] 37.3 % 36.0 - 46.0 % [facility] Hemoglobin (Bld) [Mass/Vol] 12.0 g/dL 11.5 - 15.5 g/dL [facility] Immature Gran % 0.2 % [facility] Lymphocytes (Bld) [#/Vol] 1.47 10*3/uL 1.00 - 4.00 k/uL [facility] Lymphocytes/100 WBC (Bld) 30.2 % [facility] MCH (RBC) [Entitic mass] 26.6 pg 26.0 - 34.[address] [facility] MCHC (RBC) [Mass/Vol] 32.2 g/dL 30.5 - 36.0 g/dL [facility] MCV (RBC) [Entitic vol] 82.7 fL 80.0 - 100.[address] [facility] Monocytes (Bld) [#/Vol] 0.48 10*3/uL <0.87 k/uL [facility] Monocytes/100 WBC (Bld) 9.9 % [facility] Neutrophils (Bld) [#/Vol] 2.85 10*3/uL 1.45 - 7.50 k/uL [facility] Neutrophils/100 WBC (Bld) 58.5 % [facility] Nucleated RBC (Bld) [#/Vol] 10*3/uL <0.01 k/uL [facility] Nucleated RBC/100 WBC (Bld) [Ratio] 0.0 /[address] [facility] Platelet mean volume (Bld) [Entitic vol] 9.9 fL 9.0 - 12.[address] [facility] Platelets (Bld) [#/Vol] 132 10*3/uL Low 150 - 400 k/uL [facility] RBC (Bld) [#/Vol] 4.51 10*6/uL 3.90 - 5.2 0 m/uL [facility] WBC (Bld) [#/Vol] 4.87 10*3/uL 3.70 - 11.00 k/uL [facility] CBC W Auto Differential pane l (Bld)on 10-27-2021 Abs Immature Gran <0.03 <0.10 k/uL [facility] Basophils (Bld) [#/Vol] 0.03 10*3/uL <0.11 k/uL [facility] Basophils/100 WBC (Bld) 0.5 % [facility] Differential cell count method Nom (Bld) Auto [facility] Eosinophils (Bld) [#/Vol] 0.04 10*3/uL <0.46 k/uL [facility] Eosinophils/100 WBC (Bld) 0.7 % [facility] Erythrocyte distribution width (RBC) [Ratio] 14.9 % 11.5 - 15.0 % [facility] Hematocrit (Bld) [Volume fraction] 39.0 % 36.0 - 46.0 % [facility] Hemoglobin (Bld) [Mass/Vol] 12.4 g/dL 11.5 - 15.5 g/dL [facility] Immature Gran % 0.4 % [facility] Lymphocytes (Bld) [#/Vol] 1.67 10*3/uL 1.00 - 4.00 k/uL [facility] Lymphocytes/100 WBC (Bld) 29.5 % [facility] MCH (RBC) [Entitic mass] 26.8 pg 26.0 - 34.[address] [facility] MCHC (RBC) [Mass/Vol] 31.8 g/dL 30.5 - 36.0 g/dL [facility] MCV (RBC) [Entitic vol] 84.4 fL 80.0 - 100.[address] [facility] Monocytes (Bld) [#/Vol] 0.62 10*3/uL <0.87 k/uL [facility] Monocytes/100 WBC (Bld) 11.0 % [facility] Neutrophils (Bld) [#/Vol] 3.28 10*3/uL 1.45 - 7.50 k/uL [facility] Neutrophils/100 WBC (Bld) 57.9 % [facility] Nucleated RBC (Bld) [#/Vol] 10*3/uL <0.01 k/uL [facility] Nucleated RBC/100 WBC (Bld) [Ratio] 0.0 /[address] [facility] Platelet mean volume (Bld) [Entitic vol] 9.8 fL 9.0 - 12.[address] [facility] Platelets (Bld) [#/Vol] 139 10*3/uL Low 150 - 400 k/uL [facility] RBC (Bld) [#/Vol] 4.62 10*6/uL 3.90 - 5.2 0 m/uL [facility] WBC (Bld) [#/Vol] 5.66 10*3/uL 3.70 - 11.00 k/uL [facility] CBC W Auto Differential pane l (Bld)on 09-29-2021 Abs Immature Gran <0.03 <0.10 k/uL [facility] Basophils (Bld) [#/Vol] 10*3/uL <0.11 k/uL [facility] Basophils/100 WBC (Bld) 0.4 % [facility] Differential cell count method Nom (Bld) Auto [facility] Eosinophils (Bld) [#/Vol] 0.03 10*3/uL <0.46 k/uL [facility] Eosinophils/100 WBC (Bld) 0.6 % [facility] Erythrocyte distribution width (RBC) [Ratio] 14.2 % 11.5 - 15.0 % [facility] Hematocrit (Bld) [Volume fraction] 37.7 % 36.0 - 46.0 % [facility] Hemoglobin (Bld) [Mass/Vol] 12.1 g/dL 11.5 - 15.5 g/dL [facility] Immature Gran % 0.4 % [facility] Lymphocytes (Bld) [#/Vol] 1.44 10*3/uL 1.00 - 4.00 k/uL [facility] Lymphocytes/100 WBC (Bld) 27.1 % [facility] MCH (RBC) [Entitic mass] 28.1 pg 26.0 - 34.[address] [facility] MCHC (RBC) [Mass/Vol] 32.1 g/dL 30.5 - 36.0 g/dL [facility] MCV (RBC) [Entitic vol] 87.7 fL 80.0 - 100.[address] [facility] Monocytes (Bld) [#/Vol] 0.50 10*3/uL <0.87 k/uL [facility] Monocytes/100 WBC (Bld) 9.4 % [facility] Neutrophils (Bld) [#/Vol] 3.30 10*3/uL 1.45 - 7.50 k/uL [facility] Neutrophils/100 WBC (Bld) 62.1 % [facility] Nucleated RBC (Bld) [#/Vol] 10*3/uL <0.01 k/uL [facility] Nucleated RBC/100 WBC (Bld) [Ratio] 0.0 /[address] [facility] Platelet mean volume (Bld) [Entitic vol] 9.9 fL 9.0 - 12.[address] [facility] Platelets (Bld) [#/Vol] 129 10*3/uL Low 150 - 400 k/uL [facility] RBC (Bld) [#/Vol] 4.30 10*6/uL 3.90 - 5.2 0 m/uL [facility] WBC (Bld) [#/Vol] 5.31 10*3/uL 3.70 - 11.00 k/uL [facility] CNPNon 01-02-2020 CNPN Telephone (GENSF) -- SAVANA PATEL ([id number]) 1950 F Date Time Provider Department 01/02/20 DON FONG) FREDI During your visit today, we recorded the following information about you: Don Fong RN 01/03/2020 4:19 PM Signed Spoke to pt re: MRI was negative. Pt verbalized understanding. Allergies As of Date: 01/02/2020 Noted Allergy Reaction PENICILLINS 06/08/2005 2 - Rash SULFA (SULFONAMIDE ANTIBIOTICS) 06/08/2005 16 - Unknown Date Reviewed: 01/01/2020 Reviewed by: Rita ([facility]) Pradip Braden - Fully Assessed Reason for Visit: Results [95] Prescriptions as of 01/02/2020 Sig: HEPARIN, PORCINE (PF) 100 UNI* NURSING USE ONLY: USE FOR I* SODIUM CHLORIDE 0.9% FLUSH NURSING USE ONLY: USED FOR * HEPARIN, PORCINE (PF) 100 UNI* NURSING USE ONLY: USE FOR I* PANTOPRAZOLE 20 MG TABLET,DEL* Take 1 tablet by mouth once d* IV CONTRAST (RADIOLOGY PROCED* CT Chest ABD/PEL-Inject, intr* ENTERIC CONTRAST (RADIOLOGY P* For CT CHESTABD/PEL W IVCON R* ATORVASTATIN 10 MG TABLET Take 1 tablet by mouth once d* RAMIPRIL 10 MG CAPSULE Take 1 capsule by mouth once * ONDANSETRON HCL 8 MG TABLET Take 1 tablet by mouth every * Patient not taking: Reported on 01/01/2020 DOCUSATE SODIUM 100 MG CAPSULE Take 1 capsule by mouth once * OLAPARIB 150 MG TABLET TAKE 2 TABLETS (300 MG) BY MO* Problem List As Of Date 01/02/2020 Noted Resolved Internal hemorrhoids without mention of complic* SOLAR LENGINES///DYSCHROMIA OTHER [L81.9] 02/18/2007 Other seborrheic keratosis [L82.1] 02/18/2007 [place] ANGIOMA///NEVUS, NON-NEOPLASTIC [I78.1] 02/18/2007 Actinic keratosis [L57.0] 04/12/2007 Abnormal mammogram, unspecified [R92.8] 10/25/2007 09/18/2014 BREAST CANCER UPPER OUTER(Left, 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 Impaired fasting glucose [R73.01] 11/21/2007 Dysmetabolic syndrome X [E88.81] 12/28/2007 Other acne [L70.8] 05/29/2008 Arthritis of knee, right [M17.11] 06/16/2012 Panic attacks [F41.0] 07/18/2012 Osteopenia [M85.80] 12/28/2012 Visit for routine employee relations consultant exam [Z01.419] 04/04/2015 More... Essential hypertension [I10] 04/04/2015 More... Mixed hyperlipidemia [E78.2] 04/04/2015 More... Constipation [K59.00] 04/04/2015 More... Well adult exam [Z00.00] 12/13/2015 07/13/2019 More... DEANDRE positive [R76.8] 07/25/2016 More... Osteoarthritis of multiple joints [M15.9] 07/27/2016 More... Medicare annual wellness visit, subsequent [Z00*07/01/2017 More... 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 Shay Cardoza MD Work Phone: [facility] 11-28-2024 13:40-0400 Diastolic blood pressure 59 mm[Hg] Dr. Shay Cardoza MD Work Phone: [facility] 11-28-2024 13:40-0400 Heart rate 65 /min Dr. Shay Cardoza MD Work Phone: [facility] 11-28-2024 13:40-0400 Respiratory rate 16 /min Dr. Shay Cardoza MD Work Phone: [facility] 11-28-2024 13:40-0400 SaO2% (BldA) [Mass fraction] 98 % Dr. Shay Cardoza MD Work Phone: [facility] 11-28-2024 13:40-0400 Systolic blood pressure 115 mm[Hg] Dr. Shay Cardoza MD Work Phone: [facility] 11-28-2024 11:29-0400 Body height 162.[address] Shay Cardoza MD Work Phone: [facility] 11-28-2024 11:29-0400 Body mass index (BMI) [Ratio] 18.1 kg/m2 Dr. Shay Cardoza MD Work Phone: [facility] 11-28-2024 11:29-0400 Body weight 48.[address] Shay Cardoza MD Work Phone: [facility] 11-23-2024 11:05-0400 Body mass index (BMI) [Ratio] 18.19 kg/m2 Js Masci DO Work Phone: [facility] 11-23-2024 11:05-0400 Body temperature 98.1 [degF] Js Masci DO Work Phone: [facility] 11-23-2024 11:05-0400 Body weight 48.1 kg Js Masci DO Work Phone: [facility] 11-23-2024 11:05-0400 Diastolic blood pressure 77 mm[Hg] Js Masci DO Work Phone: [facility] 11-23-2024 11:05-0400 Heart rate 67 /min Js Masci DO Work Phone: [facility] 11-23-2024 11:05-0400 SaO2% (BldA) [Mass fraction] 100 % Js Masci DO Work Phone: [facility] 11-23-2024 11:05-0400 Systolic blood pressure 119 mm[Hg] Js Masci DO Work Phone: [facility] 11-14-2024 09:00-0400 Body temperature 98.6 [degF] Treatment Wstr Work Phone: [facility] 11-14-2024 09:00-0400 Diastolic blood pressure 63 mm[Hg] Treatment Wstr Work Phone: [facility] 11-14-2024 09:00-0400 Heart rate 64 /min Treatment Wstr Work Phone: [facility] 11-14-2024 09:00-0400 SaO2% (BldA) [Mass fraction] 99 % Treatment Wstr Work Phone: [facility] 11-14-2024 09:00-0400 Systolic blood pressure 144 mm[Hg] Treatment Wstr Work Phone: 4(066)674-121292 [place] [address] 11-03-2024 11:19-0400 Body temperature 98 [degF] Dr. Shay Cardoza MD Work Phone: 4(451)431-372319 [place] [address] 11-03-2024 11:19-0400 Diastolic blood pressure 59 mm[Hg] Dr. Shay Cardoza MD Work Phone: 8(975)954-204919 [place] [address] 11-03-2024 11:19-0400 Heart rate 65 /min Dr. Shay Cardoza MD Work Phone: 1(433)981-016519 [place] [address] 11-03-2024 11:19-0400 Respiratory rate 16 /min Dr. Shay Cardoza MD Work Phone: 7(409)448-380219 [place] [address] 11-03-2024 11:19-0400 SaO2% (BldA) [Mass fraction] 100 % Dr. Shay Cardoza MD Work Phone: 6(222)812-953719 [place] [address] 11-03-2024 11:19-0400 Systolic blood pressure 107 mm[Hg] Dr. Shay Cardoza MD Work Phone: 0(051)382-829719 [place] [address] 11-03-2024 09:45-0400 Body height 162.[address] Shay Cardoza MD Work Phone: 1(811)604-409719 [place] [address] 11-03-2024 09:45-0400 Body mass index (BMI) [Ratio] 18.1 kg/m2 Dr. Shay Cardoza MD Work Phone: 2(533)646-966219 [place] [address] 11-03-2024 09:45-0400 Body weight 48.[address] Shay Cardoza MD Work Phone: [facility] 11-02-2024 10:47-0400 Body temperature 98.49 [degF] Treatment Wstr Work Phone: [facility] 11-02-2024 10:47-0400 Diastolic blood pressure 68 mm[Hg] Treatment Wstr Work Phone: [facility] 11-02-2024 10:47-0400 Heart rate 68 /min Treatment Wstr Work Phone: [facility] 11-02-2024 10:47-0400 SaO2% (BldA) [Mass fraction] 99 % Treatment Wstr Work Phone: [facility] 11-02-2024 10:47-0400 Systolic blood pressure 112 mm[Hg] Treatment Wstr Work Phone: [facility] 10-31-2024 09:55-0400 Body temperature 98.91 [degF] Treatment Wstr Work Phone: [facility] 10-31-2024 09:55-0400 Diastolic blood pressure 72 mm[Hg] Treatment Wstr Work Phone: [facility] 10-31-2024 09:55-0400 Heart rate 74 /min Treatment Wstr Work Phone: [facility] 10-31-2024 09:55-0400 SaO2% (BldA) [Mass fraction] 96 % Treatment Wstr Work Phone: [facility] 10-31-2024 09:55-0400 Systolic blood pressure 116 mm[Hg] Treatment Wstr Work Phone: [facility] 10-27-2024 10:26-0400 Body mass index (BMI) [Ratio] 18.19 kg/m2 Js Cruz DO Work Phone: [facility] 10-27-2024 10:26-0400 Body temperature 98.91 [degF] Js Cruz DO Work Phone: [facility] 10-27-2024 10:26-0400 Body weight 48.08 kg Js Masci DO Work Phone: [facility] 10-27-2024 [id number] Diastolic blood pressure 57 mm[Hg] Js Masci DO Work Phone: [facility] 10-27-2024 [id number] Heart rate 82 /min Js Masci DO Work Phone: [facility] 10-27-2024 10:26040 SaO2% (BldA) [Mass fraction] 100 % Js Masci DO Work Phone: [facility] 10-27-2024 [id number]:[id number] Systolic blood pressure 106 mm[Hg] Js Masci DO Work Phone: [facility] 10-27-2024 10:13-0400 Body mass index (BMI) [Ratio] 18.19 kg/m2 [facility] Work Phone: [facility] 10-27-2024 [id number]:[id number] Body weight 48.08 kg [facility] Work Phone: [facility] 09-08-2024 11:07-0400 Body mass index (BMI) [Ratio] 19.1 kg/m2 Js Masci DO Work Phone: [facility] 09-08-2024 11:[id number] Body temperature 97.11 [degF] Js Masci DO Work Phone: [facility] 09-08-2024 [id number] Body weight 51.26 kg Js Masci DO Work Phone: [facility] 09-08-2024 11:07-0400 Diastolic blood pressure 67 mm[Hg] Js Masci DO Work Phone: [facility] 09-08-2024 11:07-0400 Heart rate 64 /min Js Masci DO Work Phone: [facility] 09-08-2024 11:07-0400 SaO2% (BldA) [Mass fraction] 100 % Js Masci DO Work Phone: [facility] 09-08-2024 11:07-0400 Systolic blood pressure 123 mm[Hg] Js Crzu DO Work Phone: [facility] 09-08-2024 10:57-0400 Body mass index (BMI) [Ratio] 19.18 kg/m2 [facility] Work Phone: [facility] 09-08-2024 10:57-0400 Body weight 51.48 kg [facility] Work Phone: [facility] 09-05-2024 09:10-0400 Diastolic blood pressure 64 mm[Hg] Shay Cardoza MD Work Phone: [facility] 09-05-2024 09:10-0400 Systolic blood pressure 126 mm[Hg] Shay Cardoza MD Work Phone: [facility] 09-05-2024 08:36-0400 Body height 163.8 cm Shay Cardoza MD Work Phone: [facility] 09-05-2024 08:36-0400 Body mass index (BMI) [Ratio] 19.27 kg/m2 Shay Cardoza MD Work Phone: [facility] 09-05-2024 08:36-0400 Body weight 51.71 kg Shay Cardoza MD Work Phone: [facility] 09-05-2024 08:36-0400 Heart rate 70 /min Shay Cardoza MD Work Phone: [facility] 09-05-2024 08:36-0400 Respiratory rate 18 /min Shay Cardoza MD Work Phone: [facility] 08-10-2024 09:36-0500 Body mass index (BMI) [Ratio] 19.74 kg/m2 Treatment Wstr Work Phone: [facility] 08-10-2024 09:36-0500 Body temperature 97.7 [degF] Treatment Wstr Work Phone: [facility] 08-10-2024 09:36-0500 Body weight 52.16 kg Treatment Wstr Work Phone: [facility] 08-10-2024 09:36-0500 Diastolic blood pressure 65 mm[Hg] Treatment Wstr Work Phone: [facility] 08-10-2024 09:36-0500 Heart rate 70 /min Treatment Wstr Work Phone: [facility] 08-10-2024 09:36-0500 SaO2% (BldA) [Mass fraction] 100 % Treatment Wstr Work Phone: [facility] 08-10-2024 09:36-0500 Systolic blood pressure 121 mm[Hg] Treatment Wstr Work Phone: [facility] 08-03-2024 08:10-0500 Body mass index (BMI) [Ratio] 20.34 kg/m2 Treatment Wstr Work Phone: [facility] 08-03-2024 08:10-0500 Body temperature 97.7 [degF] Treatment Wstr Work Phone: [facility] 08-03-2024 08:10-0500 Body weight 53.75 kg Treatment Wstr Work Phone: [facility] 08-03-2024 08:10-0500 Diastolic blood pressure 73 mm[Hg] Treatment Wstr Work Phone: [facility] 08-03-2024 08:10-0500 Heart rate 65 /min Treatment Wstr Work Phone: [facility] 08-03-2024 08:10-0500 SaO2% (BldA) [Mass fraction] 98 % Treatment Wstr Work Phone: [facility] 08-03-2024 08:10-0500 Systolic blood pressure 129 mm[Hg] Treatment Wstr Work Phone: [facility] 08-01-2024 09:04-0500 Body mass index (BMI) [Ratio] 19.83 kg/m2 Js Cruz DO Work Phone: [facility] 08-01-2024 09:04-0500 Body temperature 97.5 [degF] Js Cruz DO Work Phone: [facility] 08-01-2024 09:04-0500 Body weight 52.39 kg Js Stephaniei DO Work Phone: [facility] 08-01-2024 09:04-0500 Diastolic blood pressure 72 mm[Hg] Js Masci DO Work Phone: [facility] 08-01-2024 09:04-0500 Heart rate 67 /min Js Masci DO Work Phone: [facility] 08-01-2024 09:04-0500 SaO2% (BldA) [Mass fraction] 99 % Js Browni DO Work Phone: [facility] 08-01-2024 09:04-0500 Systolic blood pressure 123 mm[Hg] Js Browni DO Work Phone: [facility] 08-01-2024 08:54-0500 Body mass index (BMI) [Ratio] 19.83 kg/m2 [facility] Work Phone: [facility] 08-01-2024 08:54-0500 Body weight 52.39 kg [facility] Work Phone: [facility] 07-31-2024 15:00-0500 Diastolic blood pressure 66 mm[Hg] Wu Moe MD Work Phone: [facility] 07-31-2024 15:00-0500 Heart rate 67 /min Wu Moe MD Work Phone: [facility] 07-31-2024 15:00-0500 SaO2% (BldA) [Mass fraction] 99 % Wu Moe MD Work Phone: [facility] 07-31-2024 15:00-0500 Systolic blood pressure 132 mm[Hg] Wu Moe MD Work Phone: [facility] 07-31-2024 14:40-0500 Respiratory rate 12 /min Wu Moe MD Work Phone: [facility] 07-31-2024 12:49-0500 Body height 162.6 cm Wu Moe MD Work Phone: [facility] 07-31-2024 12:49-0500 Body mass index (BMI) [Ratio] 20.77 kg/m2 Wu Moe MD Work Phone: [facility] 07-31-2024 12:49-0500 Body temperature 97.7 [degF] Wu Moe MD Work Phone: [facility] 07-31-2024 12:49-0500 Body weight 54.88 kg Wu Moe MD Work Phone: [facility] 07-26-2024 13:42-0500 Body height 162.6 cm Wu Moe MD Work Phone: [facility] 07-26-2024 13:42-0500 Body mass index (BMI) [Ratio] 20.77 kg/m2 Wu Moe MD Work Phone: [facility] 07-26-2024 13:42-0500 Body weight 54.88 kg Wu Moe MD Work Phone: [facility] 07-26-2024 13:42-0500 Diastolic blood pressure 84 mm[Hg] Wu Moe MD Work Phone: [facility] 07-26-2024 13:42-0500 Heart rate 72 /min Wu Moe MD Work Phone: [facility] 07-26-2024 13:42-0500 Respiratory rate 14 /min Wu Moe MD Work Phone: [facility] 07-26-2024 13:42-0500 SaO2% (BldA) [Mass fraction] 100 % Wu Moe MD Work Phone: [facility] 07-26-2024 13:42-0500 Systolic blood pressure 126 mm[Hg] Wu Moe MD Work Phone: [facility] 07-20-2024 10:47-0500 Body mass index (BMI) [Ratio] 20.86 kg/m2 Treatment Wstr Work Phone: [facility] 07-20-2024 10:47-0500 Body temperature 98.29 [degF] Treatment Wstr Work Phone: [facility] 07-20-2024 10:47-0500 Body weight 55.11 kg Treatment Wstr Work Phone: [facility] 07-20-2024 10:47-0500 Diastolic blood pressure 76 mm[Hg] Treatment Wstr Work Phone: [facility] 07-20-2024 10:47-0500 Heart rate 64 /min Treatment Wstr Work Phone: [facility] 07-20-2024 10:47-0500 SaO2% (BldA) [Mass fraction] 98 % Treatment Wstr Work Phone: [facility] 07-20-2024 10:47-0500 Systolic blood pressure 134 mm[Hg] Treatment Wstr Work Phone: [facility] 07-06-2024 09:48-0500 Body temperature 98.6 [degF] Treatment Wstr Work Phone: [facility] 07-06-2024 09:48-0500 Diastolic blood pressure 66 mm[Hg] Treatment Wstr Work Phone: [facility] 07-06-2024 09:48-0500 Heart rate 72 /min Treatment Wstr Work Phone: [facility] 07-06-2024 09:48-0500 Respiratory rate 22 /min Treatment Wstr Work Phone: [facility] 07-06-2024 09:48-0500 SaO2% (BldA) [Mass fraction] 98 % Treatment Wstr Work Phone: [facility] 07-06-2024 09:48-0500 Systolic blood pressure 127 mm[Hg] Treatment Wstr Work Phone: [facility] 07-04-2024 09:10-0500 Body mass index (BMI) [Ratio] 20.51 kg/m2 [facility] Work Phone: [facility] 07-04-2024 09:10-0500 Body temperature 98.8 [degF] Js Cruz DO Work Phone: [facility] 07-04-2024 09:10-0500 Body weight 54.2 kg [facility] Work Phone: [facility] 07-04-2024 09:10-0500 Diastolic blood pressure 70 mm[Hg] Js Masci DO Work Phone: [facility] 07-04-2024 09:10-0500 Heart rate 73 /min Js Masci DO Work Phone: [facility] 07-04-2024 09:10-0500 SaO2% (BldA) [Mass fraction] 99 % Js Masci DO Work Phone: [facility] 07-04-2024 09:10-0500 Systolic blood pressure 125 mm[Hg] Js Masci DO Work Phone: [facility] 06-28-2024 09:51-0500 Body height 163.8 cm Fang Cote MD Work Phone: [facility] 06-28-2024 09:51-0500 Body mass index (BMI) [Ratio] 20.94 kg/m2 Fang Cote MD Work Phone: [facility] 06-28-2024 09:51-0500 Body temperature 99.5 [degF] Fang Cote MD Work Phone: [facility] 06-28-2024 09:51-0500 Body weight 56.2 kg Fang Cote MD Work Phone: [facility] 06-28-2024 09:51-0500 Diastolic blood pressure 55 mm[Hg] Fang Cote MD Work Phone: [facility] 06-28-2024 09:51-0500 Heart rate 70 /min Fang Cote MD Work Phone: [facility] 06-28-2024 09:51-0500 SaO2% (BldA) [Mass fraction] 100 % Fang Cote MD Work Phone: [facility] 06-28-2024 09:51-0500 Systolic blood pressure 132 mm[Hg] Fang Cote MD Work Phone: [facility] 06-23-2024 08:21-0500 Body mass index (BMI) [Ratio] 21.25 kg/m2 Treatment Wstr Work Phone: [facility] 06-23-2024 08:21-0500 Body temperature 97.11 [degF] Treatment Wstr Work Phone: [facility] 06-23-2024 08:21-0500 Body weight 57.15 kg Treatment Wstr Work Phone: [facility] 06-23-2024 08:21-0500 Diastolic blood pressure 80 mm[Hg] Treatment Wstr Work Phone: [facility] 06-23-2024 08:21-0500 Heart rate 74 /min Treatment Wstr Work Phone: [facility] 06-23-2024 08:21-0500 Systolic blood pressure 146 mm[Hg] Treatment Wstr Work Phone: [facility] 06-08-2024 08:00-0500 Body mass index (BMI) [Ratio] 20.91 kg/m2 Treatment Wstr Work Phone: [facility] 06-08-2024 08:00-0500 Body temperature 97.7 [degF] Treatment Wstr Work Phone: [facility] 06-08-2024 08:00-0500 Body weight 56.25 kg Treatment Wstr Work Phone: [facility] 06-08-2024 08:00-0500 Diastolic blood pressure 67 mm[Hg] Treatment Wstr Work Phone: [facility] 06-08-2024 08:00-0500 Heart rate 71 /min Treatment Wstr Work Phone: [facility] 06-08-2024 08:00-0500 Respiratory rate 18 /min Treatment Wstr Work Phone: [facility] 06-08-2024 08:00-0500 SaO2% (BldA) [Mass fraction] 100 % Treatment Wstr Work Phone: [facility] 06-08-2024 08:00-0500 Systolic blood pressure 133 mm[Hg] Treatment Wstr Work Phone: [facility] 06-07-2024 08:41-0500 Body mass index (BMI) [Ratio] 20.88 kg/m2 [place] Welch CERTIFIED ORTHOTIST/PEDORTHIST.REGIONAL WILDLIFE AGENT Work Phone: [facility] 06-07-2024 08:41-0500 Body temperature 98.8 [degF] Kasi Welch CERTIFIED ORTHOTIST/PEDORTHIST.REGIONAL WILDLIFE AGENT Work Phone: [facility] 06-07-2024 08:41-0500 Body weight 56.16 kg Kasi Welch CERTIFIED ORTHOTIST/PEDORTHIST.REGIONAL WILDLIFE AGENT Work Phone: [facility] 06-07-2024 08:41-0500 Diastolic blood pressure 79 mm[Hg] Kasi Welch CERTIFIED ORTHOTIST/PEDORTHIST.REGIONAL WILDLIFE AGENT Work Phone: [facility] 06-07-2024 08:41-0500 Heart rate 62 /min Kasi Welch CERTIFIED ORTHOTIST/PEDORTHIST.REGIONAL WILDLIFE AGENT Work Phone: [facility] 06-07-2024 08:41-0500 SaO2% (BldA) [Mass fraction] 99 % Kasi Welch CERTIFIED ORTHOTIST/PEDORTHIST.REGIONAL WILDLIFE AGENT Work Phone: [facility] 06-07-2024 08:41-0500 Systolic blood pressure 151 mm[Hg] Kasi Welch CERTIFIED ORTHOTIST/PEDORTHIST.REGIONAL WILDLIFE AGENT Work Phone: [facility] 06-07-2024 08:12-0500 Body mass index (BMI) [Ratio] 20.83 kg/m2 [facility] Work Phone: [facility] 06-07-2024 08:12-0500 Body weight 56.02 kg [facility] Work Phone: [facility] 05-25-2024 13:03-0500 Body mass index (BMI) [Ratio] 20.74 kg/m2 Treatment Wstr Work Phone: [facility] 05-25-2024 13:03-0500 Body temperature 98.49 [degF] Treatment Wstr Work Phone: [facility] 05-25-2024 13:03-0500 Body weight 55.79 kg Treatment Wstr Work Phone: [facility] 05-25-2024 13:03-0500 Diastolic blood pressure 80 mm[Hg] Treatment Wstr Work Phone: [facility] 05-25-2024 13:03-0500 Heart rate 66 /min Treatment Wstr Work Phone: [facility] 05-25-2024 13:03-0500 Respiratory rate 18 /min Treatment Wstr Work Phone: [facility] 05-25-2024 13:03-0500 SaO2% (BldA) [Mass fraction] 99 % Treatment Wstr Work Phone: [facility] 05-25-2024 13:03-0500 Systolic blood pressure 134 mm[Hg] Treatment Wstr Work Phone: [facility] 05-10-2024 10:54-0500 Body temperature 97.39 [degF] Treatment Wstr Work Phone: [facility] 05-10-2024 10:54-0500 Diastolic blood pressure 78 mm[Hg] Treatment Wstr Work Phone: [facility] 05-10-2024 10:54-0500 Heart rate 66 /min Treatment Wstr Work Phone: [facility] 05-10-2024 10:54-0500 SaO2% (BldA) [Mass fraction] 99 % Treatment Wstr Work Phone: [facility] 05-10-2024 10:54-0500 Systolic blood pressure 129 mm[Hg] Treatment Wstr Work Phone: [facility] 05-09-2024 08:12-0500 Body mass index (BMI) [Ratio] 20.58 kg/m2 Amy Hernandez Work Phone: [facility] 05-09-2024 08:12-0500 Body temperature 97.5 [degF] Amy Hernandez Work Phone: [facility] 05-09-2024 08:12-0500 Body weight 55.34 kg Amy Hernandez Work Phone: [facility] 05-09-2024 08:12-0500 Diastolic blood pressure 76 mm[Hg] Amy Hernandez Work Phone: [facility] 05-09-2024 08:12-0500 Heart rate 64 /min Amyradha Hernandez Work Phone: [facility] 05-09-2024 08:12-0500 SaO2% (BldA) [Mass fraction] 100 % Amy Hernandez Work Phone: [facility] 05-09-2024 08:12-0500 Systolic blood pressure 121 mm[Hg] Amy Hernandez Work Phone: [facility] 05-09-2024 08:05-0500 Body mass index (BMI) [Ratio] 20.58 kg/m2 Lab[facility] Work Phone: [facility] 05-09-2024 08:05-0500 Body weight 55.34 kg Lab[facility] Work Phone: [facility] 05-03-2024 09:10-0500 Body mass index (BMI) [Ratio] 21.08 kg/m2 Treatment Wstr Work Phone: [facility] 05-03-2024 09:10-0500 Body temperature 97 [degF] Treatment Wstr Work Phone: [facility] 05-03-2024 09:10-0500 Body weight 56.7 kg Treatment Wstr Work Phone: [facility] 05-03-2024 09:10-0500 Diastolic blood pressure 73 mm[Hg] Treatment Wstr Work Phone: [facility] 05-03-2024 09:10-0500 Heart rate 62 /min Treatment Wstr Work Phone: [facility] 05-03-2024 09:10-0500 Respiratory rate 22 /min Treatment Wstr Work Phone: [facility] 05-03-2024 09:10-0500 Systolic blood pressure 164 mm[Hg] Treatment Wstr Work Phone: [facility] 04-26-2024 10:32-0500 Body mass index (BMI) [Ratio] 20.74 kg/m2 Treatment Wstr Work Phone: [facility] 04-26-2024 10:32-0500 Body temperature 97.5 [degF] Treatment Wstr Work Phone: [facility] 04-26-2024 10:32-0500 Body weight 55.79 kg Treatment Wstr Work Phone: [facility] 04-26-2024 10:32-0500 Diastolic blood pressure 71 mm[Hg] Treatment Wstr Work Phone: [facility] 04-26-2024 10:32-0500 Heart rate 67 /min Treatment Wstr Work Phone: [facility] 04-26-2024 10:32-0500 SaO2% (BldA) [Mass fraction] 99 % Treatment Wstr Work Phone: [facility] 04-26-2024 10:32-0500 Systolic blood pressure 128 mm[Hg] Treatment Wstr Work Phone: [facility] 04-20-2024 10:00-0400 Body mass index (BMI) [Ratio] 20.91 kg/m2 Treatment Wstr Work Phone: [facility] 04-20-2024 10:00-0400 Body weight 56.25 kg Treatment Wstr Work Phone: [facility] 04-20-2024 10:00-0400 Diastolic blood pressure 57 mm[Hg] Treatment Wstr Work Phone: [facility] 04-20-2024 10:00-0400 Heart rate 64 /min Treatment Wstr Work Phone: [facility] 04-20-2024 10:00-0400 Respiratory rate 20 /min Treatment Wstr Work Phone: [facility] 04-20-2024 10:00-0400 SaO2% (BldA) [Mass fraction] 98 % Treatment Wstr Work Phone: [facility] 04-20-2024 10:00-0400 Systolic blood pressure 151 mm[Hg] Treatment Wstr Work Phone: [facility] 04-06-2024 08:00-0400 Body temperature 97.81 [degF] Treatment Wstr Work Phone: [facility] 04-06-2024 08:00-0400 Diastolic blood pressure 81 mm[Hg] Treatment Wstr Work Phone: [facility] 04-06-2024 08:00-0400 Heart rate 66 /min Treatment Wstr Work Phone: [facility] 04-06-2024 08:00-0400 Systolic blood pressure 144 mm[Hg] Treatment Wstr Work Phone: [facility] 03-30-2024 08:02-0400 Body temperature 97.2 [degF] Treatment Wstr Work Phone: [facility] 03-30-2024 08:02-0400 Diastolic blood pressure 75 mm[Hg] Treatment Wstr Work Phone: [facility] 03-30-2024 08:02-0400 Heart rate 67 /min Treatment Wstr Work Phone: [facility] 03-30-2024 08:02-0400 SaO2% (BldA) [Mass fraction] 94 % Treatment Wstr Work Phone: [facility] 03-30-2024 08:02-0400 Systolic blood pressure 137 mm[Hg] Treatment Wstr Work Phone: [facility] 03-29-2024 10:20-0400 Body mass index (BMI) [Ratio] 20.91 kg/m2 Lab/Port Wstr Work Phone: [facility] 03-29-2024 10:20-0400 Body temperature 97.7 [degF] Js Masci DO Work Phone: [facility] 03-29-2024 10:20-0400 Body weight 56.25 kg Lab/Port Wstr Work Phone: [facility] 03-29-2024 10:20-0400 Diastolic blood pressure 59 mm[Hg] Js Browni DO Work Phone: [facility] 03-29-2024 10:20-0400 Heart rate 73 /min Js Browni DO Work Phone: [facility] 03-29-2024 10:20-0400 SaO2% (BldA) [Mass fraction] 99 % Js Browni DO Work Phone: [facility] 03-29-2024 10:20-0400 Systolic blood pressure 142 mm[Hg] Js Browni DO Work Phone: [facility] 03-16-2024 13:12-0400 Body mass index (BMI) [Ratio] 21.33 kg/m2 Treatment Wstr Work Phone: [facility] 03-16-2024 13:12-0400 Body temperature 97.59 [degF] Treatment Wstr Work Phone: [facility] 03-16-2024 13:12-0400 Body weight 57.38 kg Treatment Wstr Work Phone: [facility] 03-16-2024 13:12-0400 Diastolic blood pressure 70 mm[Hg] Treatment Wstr Work Phone: [facility] 03-16-2024 13:12-0400 Heart rate 72 /min Treatment Wstr Work Phone: [facility] 03-16-2024 13:12-0400 Respiratory rate 22 /min Treatment Wstr Work Phone: [facility] 03-16-2024 13:12-0400 Systolic blood pressure 125 mm[Hg] Treatment Wstr Work Phone: [facility] 03-09-2024 13:05-0400 Body mass index (BMI) [Ratio] 21.33 kg/m2 Treatment Wstr Work Phone: [facility] 03-09-2024 13:05-0400 Body temperature 98.2 [degF] Treatment Wstr Work Phone: [facility] 03-09-2024 13:05-0400 Body weight 57.38 kg Treatment Wstr Work Phone: [facility] 03-09-2024 13:05-0400 Diastolic blood pressure 69 mm[Hg] Treatment Wstr Work Phone: [facility] 03-09-2024 13:05-0400 Heart rate 65 /min Treatment Wstr Work Phone: [facility] 03-09-2024 13:05-0400 Respiratory rate 18 /min Treatment Wstr Work Phone: [facility] 03-09-2024 13:05-0400 SaO2% (BldA) [Mass fraction] 98 % Treatment Wstr Work Phone: [facility] 03-09-2024 13:05-0400 Systolic blood pressure 121 mm[Hg] Treatment Wstr Work Phone: [facility] 03-02-2024 13:10-0400 Body temperature 97.81 [degF] Treatment Wstr Work Phone: [facility] 03-02-2024 13:10-0400 Diastolic blood pressure 72 mm[Hg] Treatment Wstr Work Phone: [facility] 03-02-2024 13:10-0400 Heart rate 65 /min Treatment Wstr Work Phone: [facility] 03-02-2024 13:10-0400 Respiratory rate 18 /min Treatment Wstr Work Phone: [facility] 03-02-2024 13:10-0400 SaO2% (BldA) [Mass fraction] 98 % Treatment Wstr Work Phone: [facility] 03-02-2024 13:10-0400 Systolic blood pressure 128 mm[Hg] Treatment Wstr Work Phone: [facility] 03-01-2024 09:32-0400 Body mass index (BMI) [Ratio] 21.25 kg/m2 Shay Cardoza MD Work Phone: [facility] 03-01-2024 09:32-0400 Body temperature 97.7 [degF] Shay Cardoza MD Work Phone: [facility] 03-01-2024 09:32-0400 Body weight 57.15 kg Shay Cardoza MD Work Phone: [facility] 03-01-2024 09:32-0400 Diastolic blood pressure 62 mm[Hg] Shay Cardoza MD Work Phone: [facility] 03-01-2024 09:32-0400 Heart rate 60 /min Shay Cardoza MD Work Phone: [facility] 03-01-2024 09:32-0400 Respiratory rate 18 /min Shay Cardoza MD Work Phone: [facility] 03-01-2024 09:32-0400 SaO2% (BldA) [Mass fraction] 100 % Shay Cardoza MD Work Phone: [facility] 03-01-2024 09:32-0400 Systolic blood pressure 130 mm[Hg] Shay Cardoza MD Work Phone: [facility] 02-29-2024 11:21-0400 Body mass index (BMI) [Ratio] 20.91 kg/m2 Js Masci DO Work Phone: [facility] 02-29-2024 11:21-0400 Body temperature 97.9 [degF] Js Masci DO Work Phone: [facility] 02-29-2024 11:21-0400 Body weight 56.25 kg Js Masci DO Work Phone: [facility] 02-29-2024 11:21-0400 Diastolic blood pressure 75 mm[Hg] Js Masci DO Work Phone: [facility] 02-29-2024 11:21-0400 Heart rate 59 /min Js Masci DO Work Phone: [facility] 02-29-2024 11:21-0400 SaO2% (BldA) [Mass fraction] 98 % Js Cruz DO Work Phone: [facility] 02-29-2024 11:21-0400 Systolic blood pressure 130 mm[Hg] Js Cruz DO Work Phone: [facility] 02-16-2024 09:04-0400 Body mass index (BMI) [Ratio] 21.33 kg/m2 Treatment Wstr Work Phone: [facility] 02-16-2024 09:04-0400 Body temperature 98.29 [degF] Treatment Wstr Work Phone: [facility] 02-16-2024 09:04-0400 Body weight 57.38 kg Treatment Wstr Work Phone: [facility] 02-16-2024 09:04-0400 Diastolic blood pressure 68 mm[Hg] Treatment Wstr Work Phone: [facility] 02-16-2024 09:04-0400 Heart rate 63 /min Treatment Wstr Work Phone: [facility] 02-16-2024 09:04-0400 SaO2% (BldA) [Mass fraction] 99 % Treatment Wstr Work Phone: [facility] 02-16-2024 09:04-0400 Systolic blood pressure 127 mm[Hg] Treatment Wstr Work Phone: [facility] 02-10-2024 13:08-0400 Body mass index (BMI) [Ratio] 21.5 kg/m2 Treatment Wstr Work Phone: [facility] 02-10-2024 13:08-0400 Body temperature 97.39 [degF] Treatment Wstr Work Phone: [facility] 02-10-2024 13:08-0400 Body weight 57.83 kg Treatment Wstr Work Phone: [facility] 02-10-2024 13:08-0400 Diastolic blood pressure 65 mm[Hg] Treatment Wstr Work Phone: [facility] 02-10-2024 13:08-0400 Heart rate 74 /min Treatment Wstr Work Phone: [facility] 02-10-2024 13:08-0400 Respiratory rate 20 /min Treatment Wstr Work Phone: [facility] 02-10-2024 13:08-0400 Systolic blood pressure 113 mm[Hg] Treatment Wstr Work Phone: [facility] 02-04-2024 07:52-0400 Body height 164 cm Treatment Wstr Work Phone: [facility] 02-04-2024 07:52-0400 Body mass index (BMI) [Ratio] 21.92 kg/m2 Treatment Wstr Work Phone: [facility] 02-04-2024 07:52-0400 Body temperature 97.5 [degF] Treatment Wstr Work Phone: [facility] 02-04-2024 07:52-0400 Body weight 58.97 kg Treatment Wstr Work Phone: [facility] 02-04-2024 07:52-0400 Diastolic blood pressure 70 mm[Hg] Treatment Wstr Work Phone: [facility] 02-04-2024 07:52-0400 Heart rate 65 /min Treatment Wstr Work Phone: [facility] 02-04-2024 07:52-0400 Respiratory rate 18 /min Treatment Wstr Work Phone: [facility] 02-04-2024 07:52-0400 Systolic blood pressure 127 mm[Hg] Treatment Wstr Work Phone: [facility] 01-28-2024 14:49-0400 Body mass index (BMI) [Ratio] 21.8 kg/m2 Js Cruz DO Work Phone: [facility] 01-28-2024 14:49-0400 Body temperature 97.7 [degF] Js Cruz DO Work Phone: [facility] 01-28-2024 14:49-0400 Body weight 57.61 kg Js Masci DO Work Phone: [facility] 01-28-2024 14:49-0400 Diastolic blood pressure 68 mm[Hg] Js Masci DO Work Phone: [facility] 01-28-2024 14:49-0400 Heart rate 66 /min Js Masci DO Work Phone: [facility] 01-28-2024 14:49-0400 SaO2% (BldA) [Mass fraction] 98 % Js Masci DO Work Phone: [facility] 01-28-2024 14:49-0400 Systolic blood pressure 116 mm[Hg] Js Masci DO Work Phone: [facility] 01-17-2024 09:11-0400 Body mass index (BMI) [Ratio] 21.37 kg/m2 Js Masci DO Work Phone: [facility] 01-17-2024 09:11-0400 Body temperature 97.7 [degF] Js Masci DO Work Phone: [facility] 01-17-2024 09:11-0400 Body weight 56.47 kg Js Masci DO Work Phone: [facility] 01-17-2024 09:11-0400 Diastolic blood pressure 63 mm[Hg] Js Masci DO Work Phone: [facility] 01-17-2024 09:11-0400 Heart rate 70 /min Js Masci DO Work Phone: [facility] 01-17-2024 09:11-0400 SaO2% (BldA) [Mass fraction] 98 % Js Masci DO Work Phone: [facility] 01-17-2024 09:11-0400 Systolic blood pressure 106 mm[Hg] Js Masci DO Work Phone: [facility] 12-27-2023 08:21-0400 Body mass index (BMI) [Ratio] 20.98 kg/m2 Kasi Welch APRN.[employer] Work Phone: [facility] 12-27-2023 08:21-0400 Body temperature 97.3 [degF] Kasi Marquezenter CERTIFIED ORTHOTIST/PEDORTHIST.[employer] Work Phone: [facility] 12-27-2023 08:21-0400 Body weight 55.43 kg Kasi Marquezenter CERTIFIED ORTHOTIST/PEDORTHIST.[employer] Work Phone: [facility] 12-27-2023 08:21-0400 Diastolic blood pressure 70 mm[Hg] Kasi Welch CERTIFIED ORTHOTIST/PEDORTHIST.[employer] Work Phone: [facility] 12-27-2023 08:21-0400 Heart rate 65 /min Kasi Marquezenter CERTIFIED ORTHOTIST/PEDORTHIST.[employer] Work Phone: [facility] 12-27-2023 08:21-0400 SaO2% (BldA) [Mass fraction] 97 % Kasi Marquezenter CERTIFIED ORTHOTIST/PEDORTHIST.[employer] Work Phone: [facility] 12-27-2023 08:21-0400 Systolic blood pressure 124 mm[Hg] Kasi Marquezenter CERTIFIED ORTHOTIST/PEDORTHIST.[employer] Work Phone: [facility] 12-27-2023 08:08-0400 Body mass index (BMI) [Ratio] 21.03 kg/m2 Lab/Port Wstr Work Phone: [facility] 12-27-2023 08:08-0400 Body weight 55.57 kg Lab/Port Wstr Work Phone: [facility] 12-09-2023 09:19-0400 Body height 162.6 cm Fang Cote MD Work Phone: [facility] 12-09-2023 09:19-0400 Body mass index (BMI) [Ratio] 21.1 kg/m2 Fang Cote MD Work Phone: [facility] 12-09-2023 09:19-0400 Body temperature 97.59 [degF] Fang Cote MD Work Phone: [facility] 12-09-2023 09:19-0400 Body weight 55.75 kg Fang Cote MD Work Phone: [facility] 12-09-2023 09:19-0400 Diastolic blood pressure 69 mm[Hg] Fang Cote MD Work Phone: [facility] 12-09-2023 09:19-0400 Heart rate 65 /min Fang Cote MD Work Phone: [facility] 12-09-2023 09:19-0400 SaO2% (BldA) [Mass fraction] 98 % Fang Cote MD Work Phone: [facility] 12-09-2023 09:19-0400 Systolic blood pressure 138 mm[Hg] Fang Cote MD Work Phone: [facility] 12-07-2023 08:39-0400 Body temperature 97.59 [degF] Treatment Wstr Work Phone: [facility] 12-07-2023 08:39-0400 Diastolic blood pressure 70 mm[Hg] Treatment Wstr Work Phone: [facility] 12-07-2023 08:39-0400 Heart rate 65 /min Treatment Wstr Work Phone: [facility] 12-07-2023 08:39-0400 Respiratory rate 16 /min Treatment Wstr Work Phone: [facility] 12-07-2023 08:39-0400 SaO2% (BldA) [Mass fraction] 97 % Treatment Wstr Work Phone: [facility] 12-07-2023 08:39-0400 Systolic blood pressure 125 mm[Hg] Treatment Wstr Work Phone: [facility] 12-06-2023 10:44-0400 Body mass index (BMI) [Ratio] 20.86 kg/m2 Js Cruz DO Work Phone: [facility] 12-06-2023 10:44-0400 Body temperature 98.49 [degF] Js Cruz DO Work Phone: [facility] 12-06-2023 10:44-0400 Body weight 55.11 kg Js Browni DO Work Phone: [facility] 12-06-2023 10:44-0400 Diastolic blood pressure 64 mm[Hg] Js Browni DO Work Phone: [facility] 12-06-2023 10:44-0400 Heart rate 83 /min Js Browni DO Work Phone: [facility] 12-06-2023 10:44-0400 SaO2% (BldA) [Mass fraction] 97 % Js Stephaniei DO Work Phone: [facility] 12-06-2023 10:44-0400 Systolic blood pressure 95 mm[Hg] Js Browni DO Work Phone: [facility] 12-06-2023 10:39-0400 Body mass index (BMI) [Ratio] 20.86 kg/m2 Lab/Port Wstr Work Phone: [facility] 12-06-2023 10:39-0400 Body weight 55.11 kg Lab/Port Wstr Work Phone: [facility] 11-17-2023 13:23-0400 Diastolic blood pressure 60 mm[Hg] Treatment Wstr Work Phone: [facility] 11-17-2023 13:23-0400 Heart rate 64 /min Treatment Wstr Work Phone: [facility] 11-17-2023 13:23-0400 Respiratory rate 16 /min Treatment Wstr Work Phone: [facility] 11-17-2023 13:23-0400 SaO2% (BldA) [Mass fraction] 100 % Treatment Wstr Work Phone: [facility] 11-17-2023 13:23-0400 Systolic blood pressure 120 mm[Hg] Treatment Wstr Work Phone: [facility] 11-17-2023 10:45-0400 Body mass index (BMI) [Ratio] 21.37 kg/m2 Treatment Wstr Work Phone: [facility] 11-17-2023 10:45-0400 Body temperature 98.4 [degF] Treatment Wstr Work Phone: [facility] 11-17-2023 10:45-0400 Body weight 56.47 kg Treatment Wstr Work Phone: [facility] 11-12-2023 09:12-0400 Body mass index (BMI) [Ratio] 20.77 kg/m2 Lab/Port Wstr Work Phone: [facility] 11-12-2023 09:12-0400 Body temperature 98.01 [degF] Js Masci DO Work Phone: [facility] 11-12-2023 09:12-0400 Body weight 54.88 kg Lab/Port Wstr Work Phone: [facility] 11-12-2023 09:12-0400 Diastolic blood pressure 69 mm[Hg] Js Masci DO Work Phone: [facility] 11-12-2023 09:12-0400 Heart rate 70 /min Js Masci DO Work Phone: [facility] 11-12-2023 09:12-0400 SaO2% (BldA) [Mass fraction] 98 % Js Masci DO Work Phone: [facility] 11-12-2023 09:12-0400 Systolic blood pressure 124 mm[Hg] Js Masci DO Work Phone: [facility] 10-26-2023 09:41-0400 Body temperature 97.3 [degF] Treatment Wstr Work Phone: [facility] 10-26-2023 09:41-0400 Diastolic blood pressure 74 mm[Hg] Treatment Wstr Work Phone: [facility] 10-26-2023 09:41-0400 Heart rate 69 /min Treatment Wstr Work Phone: [facility] 10-26-2023 09:41-0400 SaO2% (BldA) [Mass fraction] 100 % Treatment Wstr Work Phone: [facility] 10-26-2023 09:41-0400 Systolic blood pressure 105 mm[Hg] Treatment Wstr Work Phone: [facility] 10-20-2023 08:54-0400 Body mass index (BMI) [Ratio] 20.77 kg/m2 Js Browni DO Work Phone: [facility] 10-20-2023 08:54-0400 Body temperature 97.59 [degF] Js Browni DO Work Phone: [facility] 10-20-2023 08:54-0400 Body weight 54.88 kg Js Browni DO Work Phone: [facility] 10-20-2023 08:54-0400 Diastolic blood pressure 71 mm[Hg] Js Browni DO Work Phone: [facility] 10-20-2023 08:54-0400 Heart rate 66 /min Js Browni DO Work Phone: [facility] 10-20-2023 08:54-0400 SaO2% (BldA) [Mass fraction] 100 % Js Cruz DO Work Phone: [facility] 10-20-2023 08:54-0400 Systolic blood pressure 128 mm[Hg] Js Browni DO Work Phone: [facility] 09-29-2023 08:49-0400 Body temperature 97.81 [degF] Treatment Wstr Work Phone: [facility] 09-29-2023 08:49-0400 Body weight 55.11 kg Treatment Wstr Work Phone: [facility] 09-29-2023 08:49-0400 Diastolic blood pressure 62 mm[Hg] Treatment Wstr Work Phone: [facility] 09-29-2023 08:49-0400 Heart rate 63 /min Treatment Wstr Work Phone: [facility] 09-29-2023 08:49-0400 SaO2% (BldA) [Mass fraction] 99 % Treatment Wstr Work Phone: [facility] 09-29-2023 08:49-0400 Systolic blood pressure 119 mm[Hg] Treatment Wstr Work Phone: [facility] 09-27-2023 14:29-0400 Body temperature 98.4 [degF] Js Cruz DO Work Phone: [facility] 09-27-2023 14:29-0400 Body weight 55.57 kg Js Browni DO Work Phone: [facility] 09-27-2023 14:29-0400 Diastolic blood pressure 73 mm[Hg] Js Browni DO Work Phone: [facility] 09-27-2023 14:29-0400 Heart rate 68 /min Js Browni DO Work Phone: [facility] 09-27-2023 14:29-0400 SaO2% (BldA) [Mass fraction] 99 % Js Cruz DO Work Phone: [facility] 09-27-2023 14:29-0400 Systolic blood pressure 118 mm[Hg] Js Cruz DO Work Phone: [facility] 09-23-2023 09:44-0400 Body temperature 97.59 [degF] Treatment Wstr Work Phone: [facility] 09-23-2023 09:44-0400 Diastolic blood pressure 76 mm[Hg] Treatment Wstr Work Phone: [facility] 09-23-2023 09:44-0400 Heart rate 72 /min Treatment Wstr Work Phone: [facility] 09-23-2023 09:44-0400 Respiratory rate 16 /min Treatment Wstr Work Phone: [facility] 09-23-2023 09:44-0400 SaO2% (BldA) [Mass fraction] 98 % Treatment Wstr Work Phone: [facility] 09-23-2023 09:44-0400 Systolic blood pressure 133 mm[Hg] Treatment Wstr Work Phone: [facility] 09-21-2023 13:00-0400 Body temperature 98.1 [degF] Treatment Wstr Work Phone: [facility] 09-21-2023 13:00-0400 Diastolic blood pressure 63 mm[Hg] Treatment Wstr Work Phone: [facility] 09-21-2023 13:00-0400 Heart rate 69 /min Treatment Wstr Work Phone: [facility] 09-21-2023 13:00-0400 SaO2% (BldA) [Mass fraction] 99 % Treatment Wstr Work Phone: [facility] 09-21-2023 13:00-0400 Systolic blood pressure 133 mm[Hg] Treatment Wstr Work Phone: [facility] 09-13-2023 08:00-0400 Body temperature 98.49 [degF] Treatment Wstr Work Phone: [facility] 09-13-2023 08:00-0400 Diastolic blood pressure 68 mm[Hg] Treatment Wstr Work Phone: [facility] 09-13-2023 08:00-0400 Heart rate 69 /min Treatment Wstr Work Phone: [facility] 09-13-2023 08:00-0400 SaO2% (BldA) [Mass fraction] 100 % Treatment Wstr Work Phone: [facility] 09-13-2023 08:00-0400 Systolic blood pressure 120 mm[Hg] Treatment Wstr Work Phone: [facility] 09-10-2023 13:02-0400 Body temperature 98.4 [degF] Treatment Wstr Work Phone: [facility] 09-10-2023 13:02-0400 Diastolic blood pressure 97 mm[Hg] Treatment Wstr Work Phone: [facility] 09-10-2023 13:02-0400 Heart rate 67 /min Treatment Wstr Work Phone: [facility] 09-10-2023 13:02-0400 SaO2% (BldA) [Mass fraction] 100 % Treatment Wstr Work Phone: [facility] 09-10-2023 13:02-0400 Systolic blood pressure 120 mm[Hg] Treatment Wstr Work Phone: [facility] 09-08-2023 11:29-0400 Body temperature 98.4 [degF] Js Stephaniei DO Work Phone: [facility] 09-08-2023 11:29-0400 Body weight 54.43 kg Js Masci DO Work Phone: [facility] 09-08-2023 11:29-0400 Diastolic blood pressure 67 mm[Hg] Js Masci DO Work Phone: [facility] 09-08-2023 11:29-0400 Heart rate 70 /min Js Stephaniei DO Work Phone: [facility] 09-08-2023 11:29-0400 SaO2% (BldA) [Mass fraction] 100 % Js Stephaniei DO Work Phone: [facility] 09-08-2023 11:29-0400 Systolic blood pressure 109 mm[Hg] Js Masci DO Work Phone: [facility] 08-26-2023 09:18-0500 Body height 162.6 cm Shay Cardoza MD Work Phone: [facility] 08-26-2023 09:18-0500 Body weight 54.43 kg Shay Cardoza MD Work Phone: [facility] 08-26-2023 09:18-0500 Diastolic blood pressure 64 mm[Hg] Shay Cardoza MD Work Phone: [facility] 08-26-2023 09:18-0500 Heart rate 63 /min Shay Cardoza MD Work Phone: [facility] 08-26-2023 09:18-0500 SaO2% (BldA) [Mass fraction] 99 % Shay Cardoza MD Work Phone: [facility] 08-26-2023 09:18-0500 Systolic blood pressure 122 mm[Hg] Shay Cardoza MD Work Phone: [facility] 08-13-2023 13:13-0500 Body height 162.6 cm Fang Cote MD Work Phone: [facility] 08-13-2023 13:13-0500 Body temperature 98.91 [degF] Fang Cote MD Work Phone: [facility] 08-13-2023 13:13-0500 Body weight 55.02 kg Fang Cote MD Work Phone: [facility] 08-13-2023 13:13-0500 Diastolic blood pressure 67 mm[Hg] Fang Cote MD Work Phone: [facility] 08-13-2023 13:13-0500 Heart rate 74 /min Fang Cote MD Work Phone: [facility] 08-13-2023 13:13-0500 SaO2% (BldA) [Mass fraction] 99 % Fang Cote MD Work Phone: [facility] 08-13-2023 13:13-0500 Systolic blood pressure 107 mm[Hg] Fang Cote MD Work Phone: [facility] 08-11-2023 13:36-0500 Body height 162.6 cm Felix Craft MD Work Phone: [facility] 08-11-2023 13:36-0500 Body weight 53.98 kg Felix Craft MD Work Phone: [facility] 07-30-2023 09:23-0500 Body temperature 98.4 [degF] Js Cruz DO Work Phone: [facility] 07-30-2023 09:23-0500 Body weight 55.57 kg Js Cruz DO Work Phone: [facility] 07-30-2023 09:23-0500 Diastolic blood pressure 59 mm[Hg] sJ Cruz DO Work Phone: [facility] 07-30-2023 09:23-0500 Heart rate 78 /min Js Cruz DO Work Phone: [facility] 07-30-2023 09:23-0500 SaO2% (BldA) [Mass fraction] 97 % Js Cruz DO Work Phone: [facility] 07-30-2023 09:23-0500 Systolic blood pressure 96 mm[Hg] Js Cruz DO Work Phone: [facility] 07-02-2023 08:29-0500 Body height 162.6 cm Fang Cote MD Work Phone: [facility] 07-02-2023 08:29-0500 Body temperature 98.91 [degF] Fang Cote MD Work Phone: [facility] 07-02-2023 08:29-0500 Body weight 59.38 kg Fang Cote MD Work Phone: [facility] 07-02-2023 08:29-0500 Diastolic blood pressure 54 mm[Hg] Fang Cote MD Work Phone: [facility] 07-02-2023 08:29-0500 Heart rate 63 /min Fang Cote MD Work Phone: [facility] 07-02-2023 08:29-0500 SaO2% (BldA) [Mass fraction] 98 % Fang Cote MD Work Phone: [facility] 07-02-2023 08:29-0500 Systolic blood pressure 108 mm[Hg] Fang Cote MD Work Phone: [facility] 06-02-2023 07:24-0500 Body temperature 97.9 [degF] Dr. Shay Cardoza Work Phone: [facility] 06-02-2023 07:24-0500 Diastolic blood pressure 68 mm[Hg] Dr. Shay Cardoza Work Phone: [facility] 06-02-2023 07:24-0500 Heart rate 71 /min Dr. Shay Cardoza Work Phone: [facility] 06-02-2023 07:24-0500 Respiratory rate 15 /min Dr. Shay Cardoza Work Phone: [facility] 06-02-2023 07:24-0500 SaO2% (BldA) [Mass fraction] 95 % Dr. Shay Cardoza Work Phone: [facility] 06-02-2023 07:24-0500 Systolic blood pressure 125 mm[Hg] Dr. Shay Cardoza Work Phone: [facility] 06-01-2023 16:40-0500 Body height 162.[address] Shay Cardoza Work Phone: [facility] 06-01-2023 16:40-0500 Body mass index (BMI) [Ratio] 22.3 kg/m2 Dr. Shay Cardoza Work Phone: [facility] 06-01-2023 16:40-0500 Body weight 58.[address] Shay Cardoza Work Phone: [facility] 05-10-2023 08:56-0500 Body temperature 97.9 [degF] Treatment Wstr Work Phone: [facility] 05-10-2023 08:56-0500 Diastolic blood pressure 70 mm[Hg] Treatment Wstr Work Phone: [facility] 05-10-2023 08:56-0500 Heart rate 53 /min Treatment Wstr Work Phone: [facility] 05-10-2023 08:56-0500 Systolic blood pressure 119 mm[Hg] Treatment Wstr Work Phone: [facility] 05-07-2023 09:01-0500 Body temperature 97.2 [degF] Js Cruz DO Work Phone: [facility] 05-07-2023 09:01-0500 Body weight 61.01 kg Js Cruz DO Work Phone: [facility] 05-07-2023 09:01-0500 Diastolic blood pressure 66 mm[Hg] Js Masci DO Work Phone: [facility] 05-07-2023 09:01-0500 Heart rate 74 /min Js Masci DO Work Phone: [facility] 05-07-2023 09:01-0500 SaO2% (BldA) [Mass fraction] 99 % Js Masci DO Work Phone: [facility] 05-07-2023 09:01-0500 Systolic blood pressure 113 mm[Hg] Js Masci DO Work Phone: [facility] 05-07-2023 08:41-0500 Body weight 61.01 kg Lab/Port Wstr Work Phone: [facility] 04-12-2023 08:37-0400 Body temperature 98.4 [degF] Treatment Wstr Work Phone: [facility] 04-12-2023 08:37-0400 Diastolic blood pressure 69 mm[Hg] Treatment Wstr Work Phone: [facility] 04-12-2023 08:37-0400 Heart rate 64 /min Treatment Wstr Work Phone: [facility] 04-12-2023 08:37-0400 Respiratory rate 22 /min Treatment Wstr Work Phone: [facility] 04-12-2023 08:37-0400 Systolic blood pressure 122 mm[Hg] Treatment Wstr Work Phone: [facility] 03-12-2023 08:55-0400 Body temperature 97 [degF] Js Masci DO Work Phone: [facility] 03-12-2023 08:55-0400 Body weight 61.01 kg Lab/Port Wstr Work Phone: [facility] 03-12-2023 08:55-0400 Diastolic blood pressure 61 mm[Hg] Js Masci DO Work Phone: [facility] 03-12-2023 08:55-0400 Heart rate 65 /min Js Masci DO Work Phone: [facility] 03-12-2023 08:55-0400 SaO2% (BldA) [Mass fraction] 99 % Js Cruz DO Work Phone: [facility] 03-12-2023 08:55-0400 Systolic blood pressure 103 mm[Hg] Js Cruz DO Work Phone: [facility] 03-04-2023 09:00-0400 Body height 162.6 cm Lab/Port Wstr Work Phone: [facility] 03-04-2023 09:00-0400 Body weight 60.78 kg Lab/Port Wstr Work Phone: [facility] 02-24-2023 08:45-0400 Body weight 59.88 kg Shay Cardoza MD Work Phone: [facility] 02-24-2023 08:45-0400 Diastolic blood pressure 64 mm[Hg] Shay Cardoza MD Work Phone: [facility] 02-24-2023 08:45-0400 Heart rate 64 /min Shay Cardoza MD Work Phone: [facility] 02-24-2023 08:45-0400 Respiratory rate 16 /min Shay Cardoza MD Work Phone: [facility] 02-24-2023 08:45-0400 Systolic blood pressure 114 mm[Hg] Shay Cardoza MD Work Phone: [facility] 02-15-2023 08:40-0400 Body temperature 97.9 [degF] Treatment Wstr Work Phone: [facility] 02-15-2023 08:40-0400 Diastolic blood pressure 67 mm[Hg] Treatment Wstr Work Phone: [facility] 02-15-2023 08:40-0400 Heart rate 94 /min Treatment Wstr Work Phone: [facility] 02-15-2023 08:40-0400 Respiratory rate 16 /min Treatment Wstr Work Phone: [facility] 02-15-2023 08:40-0400 SaO2% (BldA) [Mass fraction] 98 % Treatment Wstr Work Phone: [facility] 02-15-2023 08:40-0400 Systolic blood pressure 129 mm[Hg] Treatment Wstr Work Phone: [facility] 02-12-2023 09:06-0400 Body weight 60.55 kg Lab/Port Wstr Work Phone: [facility] 01-15-2023 13:01-0400 Body temperature 97.11 [degF] Treatment Wstr Work Phone: [facility] 01-15-2023 13:01-0400 Diastolic blood pressure 66 mm[Hg] Treatment Wstr Work Phone: [facility] 01-15-2023 13:01-0400 Heart rate 68 /min Treatment Wstr Work Phone: [facility] 01-15-2023 13:01-0400 Systolic blood pressure 121 mm[Hg] Treatment Wstr Work Phone: [facility] 01-14-2023 11:25-0400 Body temperature 97.2 [degF] Js Masci DO Work Phone: [facility] 01-14-2023 11:25-0400 Body weight 60.33 kg Js Masci DO Work Phone: [facility] 01-14-2023 11:25-0400 Diastolic blood pressure 72 mm[Hg] Js Masci DO Work Phone: [facility] 01-14-2023 11:25-0400 Heart rate 69 /min Js Masci DO Work Phone: [facility] 01-14-2023 11:25-0400 SaO2% (BldA) [Mass fraction] 98 % Js Masci DO Work Phone: [facility] 01-14-2023 11:25-0400 Systolic blood pressure 116 mm[Hg] Js Masci DO Work Phone: [facility] 12-17-2022 07:41-0400 Body temperature 97.2 [degF] Treatment Wstr Work Phone: [facility] 12-17-2022 07:41-0400 Diastolic blood pressure 63 mm[Hg] Treatment Wstr Work Phone: [facility] 12-17-2022 07:41-0400 Heart rate 64 /min Treatment Wstr Work Phone: [facility] 12-17-2022 07:41-0400 Systolic blood pressure 127 mm[Hg] Treatment Wstr Work Phone: [facility] 12-07-2022 14:17-0400 Body height 162.6 cm Js Masci DO Work Phone: [facility] 12-07-2022 14:17-0400 Body temperature 97.2 [degF] Js Masci DO Work Phone: [facility] 12-07-2022 14:17-0400 Body weight 60.69 kg Js Masci DO Work Phone: [facility] 12-07-2022 14:17-0400 Diastolic blood pressure 62 mm[Hg] Js Masci DO Work Phone: [facility] 12-07-2022 14:17-0400 Heart rate 70 /min Js Masci DO Work Phone: [facility] 12-07-2022 14:17-0400 Respiratory rate 14 /min Js Masci DO Work Phone: [facility] 12-07-2022 14:17-0400 SaO2% (BldA) [Mass fraction] 97 % Js Masci DO Work Phone: [facility] 12-07-2022 14:17-0400 Systolic blood pressure 118 mm[Hg] Js Masci DO Work Phone: [facility] 11-27-2022 13:48-0400 Body weight 59.88 kg Fang Cote MD Work Phone: [facility] 11-27-2022 13:48-0400 Diastolic blood pressure 62 mm[Hg] Fang Cote MD Work Phone: [facility] 11-27-2022 13:48-0400 Heart rate 69 /min Fang Cote MD Work Phone: [facility] 11-27-2022 13:48-0400 SaO2% (BldA) [Mass fraction] 99 % Fang Cote MD Work Phone: [facility] 11-27-2022 13:48-0400 Systolic blood pressure 132 mm[Hg] Fang Cote MD Work Phone: [facility] 11-13-2022 15:34-0400 Body temperature 99.5 [degF] Shay Cardoza MD Work Phone: [facility] 11-13-2022 15:34-0400 Body weight 60.33 kg Shay Cardoza MD Work Phone: [facility] 11-13-2022 15:34-0400 Diastolic blood pressure 64 mm[Hg] Shay Cardoza MD Work Phone: [facility] 11-13-2022 15:34-0400 Heart rate 96 /min Shay Cardoza MD Work Phone: [facility] 11-13-2022 15:34-0400 Respiratory rate 18 /min Shay Cardoza MD Work Phone: [facility] 11-13-2022 15:34-0400 SaO2% (BldA) [Mass fraction] 97 % Shay Cardoza MD Work Phone: [facility] 11-13-2022 15:34-0400 Systolic blood pressure 118 mm[Hg] Shay Cardoza MD Work Phone: [facility] 11-03-2022 13:57-0400 Body temperature 97.5 [degF] Injection Wstr Work Phone: [facility] 11-03-2022 13:57-0400 Body weight 62.14 kg Injection Wstr Work Phone: [facility] 11-03-2022 13:57-0400 Diastolic blood pressure 58 mm[Hg] Injection Wstr Work Phone: [facility] 11-03-2022 13:57-0400 Heart rate 76 /min Injection Wstr Work Phone: [facility] 11-03-2022 13:57-0400 Systolic blood pressure 118 mm[Hg] Injection Wstr Work Phone: [facility] 11-02-2022 07:00-0400 Body temperature 97.59 [degF] Treatment Wstr Work Phone: [facility] 11-02-2022 07:00-0400 Diastolic blood pressure 68 mm[Hg] Treatment Wstr Work Phone: [facility] 11-02-2022 07:00-0400 Heart rate 73 /min Treatment Wstr Work Phone: [facility] 11-02-2022 07:00-0400 Systolic blood pressure 99 mm[Hg] Treatment Wstr Work Phone: [facility] 10-30-2022 09:33-0400 Body weight 60.33 kg Lab/Port Wstr Work Phone: [facility] 10-13-2022 14:14-0400 Body temperature 99.19 [degF] Injection Wstr Work Phone: [facility] 10-13-2022 14:14-0400 Body weight 62.14 kg Injection Wstr Work Phone: [facility] 10-13-2022 14:14-0400 Diastolic blood pressure 63 mm[Hg] Injection Wstr Work Phone: [facility] 10-13-2022 14:14-0400 Heart rate 69 /min Injection Wstr Work Phone: [facility] 10-13-2022 14:14-0400 Systolic blood pressure 115 mm[Hg] Injection Wstr Work Phone: [facility] 10-12-2022 08:07-0400 Body temperature 99.19 [degF] Treatment Wstr Work Phone: [facility] 10-12-2022 08:07-0400 Diastolic blood pressure 63 mm[Hg] Treatment Wstr Work Phone: [facility] 10-12-2022 08:07-0400 Heart rate 68 /min Treatment Wstr Work Phone: [facility] 10-12-2022 08:07-0400 Respiratory rate 22 /min Treatment Wstr Work Phone: [facility] 10-12-2022 08:07-0400 Systolic blood pressure 127 mm[Hg] Treatment Wstr Work Phone: [facility] 10-09-2022 09:49-0400 Body temperature 98.2 [degF] Js Masci DO Work Phone: [facility] 10-09-2022 09:49-0400 Body weight 60.55 kg Js Masci DO Work Phone: [facility] 10-09-2022 09:49-0400 Diastolic blood pressure 66 mm[Hg] Js Masci DO Work Phone: [facility] 10-09-2022 09:49-0400 Heart rate 75 /min Js Masci DO Work Phone: [facility] 10-09-2022 09:49-0400 Systolic blood pressure 118 mm[Hg] Js Masci DO Work Phone: [facility] 09-22-2022 13:59-0400 Body temperature 97.39 [degF] Injection Wstr Work Phone: [facility] 09-22-2022 13:59-0400 Body weight 62.14 kg Injection Wstr Work Phone: [facility] 09-22-2022 13:59-0400 Diastolic blood pressure 59 mm[Hg] Injection Wstr Work Phone: [facility] 09-22-2022 13:59-0400 Heart rate 75 /min Injection Wstr Work Phone: [facility] 09-22-2022 13:59-0400 Systolic blood pressure 109 mm[Hg] Injection Wstr Work Phone: [facility] 09-18-2022 09:31-0400 Body temperature 98.4 [degF] Js Masci DO Work Phone: [facility] 09-18-2022 09:31-0400 Body weight 61.69 kg Js Masci DO Work Phone: [facility] 09-18-2022 09:31-0400 Diastolic blood pressure 64 mm[Hg] Js Masci DO Work Phone: [facility] 09-18-2022 09:31-0400 Heart rate 70 /min Js Masci DO Work Phone: [facility] 09-18-2022 09:31-0400 Systolic blood pressure 132 mm[Hg] Js Masci DO Work Phone: [facility] 08-31-2022 12:38-0400 Diastolic blood pressure 57 mm[Hg] Treatment Wstr Work Phone: [facility] 08-31-2022 12:38-0400 Heart rate 79 /min Treatment Wstr Work Phone: [facility] 08-31-2022 12:38-0400 Systolic blood pressure 117 mm[Hg] Treatment Wstr Work Phone: [facility] 08-31-2022 07:48-0400 Body temperature 96.69 [degF] Treatment Wstr Work Phone: [facility] 08-28-2022 08:09-0500 Body temperature 99.1 [degF] Js Masci DO Work Phone: [facility] 08-28-2022 08:09-0500 Body weight 61.24 kg Js Masci DO Work Phone: [facility] 08-28-2022 08:09-0500 Diastolic blood pressure 63 mm[Hg] Js Masci DO Work Phone: [facility] 08-28-2022 08:09-0500 Heart rate 70 /min Js Masci DO Work Phone: [facility] 08-28-2022 08:09-0500 SaO2% (BldA) [Mass fraction] 95 % Js Cruz DO Work Phone: [facility] 08-28-2022 08:09-0500 Systolic blood pressure 108 mm[Hg] Js Cruz DO Work Phone: [facility] 08-28-2022 07:59-0500 Body weight 61.24 kg Lab/Port Wstr Work Phone: [facility] 08-25-2022 14:36-0500 Body height 162.6 cm Fang Cote MD Work Phone: [facility] 08-25-2022 14:36-0500 Body temperature 99.1 [degF] Fang Cote MD Work Phone: [facility] 08-25-2022 14:36-0500 Body weight 61.6 kg Fang Cote MD Work Phone: [facility] 08-25-2022 14:36-0500 Diastolic blood pressure 75 mm[Hg] Fang Cote MD Work Phone: [facility] 08-25-2022 14:36-0500 Heart rate 81 /min Fang Cote MD Work Phone: [facility] 08-25-2022 14:36-0500 SaO2% (BldA) [Mass fraction] 97 % Fang Cote MD Work Phone: [facility] 08-25-2022 14:36-0500 Systolic blood pressure 125 mm[Hg] Fang Cote MD Work Phone: [facility] 08-24-2022 14:48-0500 Body height 162.6 cm Shay Cardoza MD Work Phone: [facility] 08-24-2022 14:48-0500 Body weight 60.33 kg Shay Cardoza MD Work Phone: [facility] 08-24-2022 14:48-0500 Diastolic blood pressure 70 mm[Hg] Shay Cardoza MD Work Phone: [facility] 08-24-2022 14:48-0500 Heart rate 76 /min Shay Cardoza MD Work Phone: [facility] 08-24-2022 14:48-0500 Respiratory rate 18 /min Shay Cardoza MD Work Phone: [facility] 08-24-2022 14:48-0500 Systolic blood pressure 136 mm[Hg] Shay Cardoza MD Work Phone: [facility] 08-11-2022 15:11-0500 Body temperature 98.4 [degF] Injection Wstr Work Phone: [facility] 08-11-2022 15:11-0500 Body weight 62.14 kg Injection Wstr Work Phone: [facility] 08-11-2022 15:11-0500 Diastolic blood pressure 65 mm[Hg] Injection Wstr Work Phone: [facility] 08-11-2022 15:11-0500 Heart rate 70 /min Injection Wstr Work Phone: [facility] 08-11-2022 15:11-0500 Systolic blood pressure 122 mm[Hg] Injection Wstr Work Phone: [facility] 08-10-2022 09:40-0500 Body temperature 98.2 [degF] Treatment Wstr Work Phone: [facility] 08-10-2022 09:40-0500 Diastolic blood pressure 71 mm[Hg] Treatment Wstr Work Phone: [facility] 08-10-2022 09:40-0500 Heart rate 70 /min Treatment Wstr Work Phone: [facility] 08-10-2022 09:40-0500 Respiratory rate 20 /min Treatment Wstr Work Phone: [facility] 08-10-2022 09:40-0500 Systolic blood pressure 123 mm[Hg] Treatment Wstr Work Phone: [facility] 08-04-2022 09:23-0500 Body temperature 98.1 [degF] Kasi Welch CERTIFIED ORTHOTIST/PEDORTHIST.REGIONAL [employer]ILDLIFE AGENT Work Phone: [facility] 08-04-2022 09:23-0500 Body weight 60.78 kg Lab/Port Wstr Work Phone: [facility] 08-04-2022 09:23-0500 Diastolic blood pressure 62 mm[Hg] Kasi Welch CERTIFIED ORTHOTIST/PEDORTHIST.[employer]ION[employer]IL[employer] AGENT Work Phone: [facility] 08-04-2022 09:23-0500 Heart rate 70 /min Kasi Welch CERTIFIED ORTHOTIST/PEDORTHIST.[employer]IL[employer] AGENT Work Phone: [facility] 08-04-2022 09:23-0500 SaO2% (BldA) [Mass fraction] 98 % Kasi Welch CERTIFIED ORTHOTIST/PEDORTHIST.[employer]IL[employer] AGENT Work Phone: [facility] 08-04-2022 09:23-0500 Systolic blood pressure 101 mm[Hg] Kasi Welch CERTIFIED ORTHOTIST/PEDORTHIST.[employer]IL[employer]IFE AGENT Work Phone: [facility] 07-21-2022 14:56-0500 Body temperature 97.5 [degF] Injection Wstr Work Phone: [facility] 07-20-2022 07:45-0500 Body temperature 96.8 [degF] Treatment Wstr Work Phone: [facility] 07-20-2022 07:45-0500 Body weight 61.92 kg Treatment Wstr Work Phone: [facility] 07-20-2022 07:45-0500 Diastolic blood pressure 54 mm[Hg] Treatment Wstr Work Phone: [facility] 07-20-2022 07:45-0500 Heart rate 82 /min Treatment Wstr Work Phone: [facility] 07-20-2022 07:45-0500 Systolic blood pressure 124 mm[Hg] Treatment Wstr Work Phone: [facility] 07-10-2022 10:12-0500 Body height 163 cm Js Cruz DO Work Phone: [facility] 07-10-2022 10:12-0500 Body temperature 97.5 [degF] Js Cruz DO Work Phone: [facility] 07-10-2022 10:12-0500 Body weight 61.92 kg Js Masci DO Work Phone: [facility] 07-10-2022 10:12-0500 Diastolic blood pressure 66 mm[Hg] Js Masci DO Work Phone: [facility] 07-10-2022 10:12-0500 Heart rate 56 /min Js Masci DO Work Phone: [facility] 07-10-2022 10:12-0500 Systolic blood pressure 122 mm[Hg] Js Masci DO Work Phone: [facility] 06-26-2022 10:57-0500 Body temperature 97.81 [degF] Fang Cote MD Work Phone: [facility] 06-26-2022 10:57-0500 Body weight 60.78 kg Fang Cote MD Work Phone: [facility] 06-26-2022 10:57-0500 Diastolic blood pressure 66 mm[Hg] Fang Cote MD Work Phone: [facility] 06-26-2022 10:57-0500 Heart rate 70 /min Fang Cote MD Work Phone: [facility] 06-26-2022 10:57-0500 SaO2% (BldA) [Mass fraction] 98 % Fang Cote MD Work Phone: [facility] 06-26-2022 10:57-0500 Systolic blood pressure 116 mm[Hg] Fang Cote MD Work Phone: [facility] 03-25-2022 10:06-0400 Body temperature 97.39 [degF] Fang Cote MD Work Phone: [facility] 03-25-2022 10:06-0400 Body weight 60.33 kg Fang Cote MD Work Phone: [facility] 03-25-2022 10:06-0400 Diastolic blood pressure 64 mm[Hg] Fang Cote MD Work Phone: [facility] 03-25-2022 10:06-0400 Heart rate 64 /min Fang Cote MD Work Phone: [facility] 03-25-2022 10:06-0400 SaO2% (BldA) [Mass fraction] 98 % Fang Cote MD Work Phone: [facility] 03-25-2022 10:06-0400 Systolic blood pressure 121 mm[Hg] Fagn Cote MD Work Phone: [facility] 01-29-2022 08:43-0400 Body weight 60.33 kg Shay Cardoza MD Work Phone: [facility] 01-29-2022 08:43-0400 Diastolic blood pressure 70 mm[Hg] Shay Cardoza MD Work Phone: [facility] 01-29-2022 08:43-0400 Heart rate 60 /min Shay Cardoza MD Work Phone: [facility] 01-29-2022 08:43-0400 Respiratory rate 16 /min Shay Cardoza MD Work Phone: [facility] 01-29-2022 08:43-0400 Systolic blood pressure 116 mm[Hg] Shay Cardoza MD Work Phone: [facility] 12-31-2021 10:19-0400 Body temperature 97.11 [degF] Karishma Franz APRN.[employer] AGENT Work Phone: [facility] 12-31-2021 10:19-0400 Body weight 61.24 kg Karishma Franz APRN.[employer] AGENT Work Phone: [facility] 12-31-2021 10:19-0400 Diastolic blood pressure 54 mm[Hg] Karishma Franz APRN.REGION[employer]DL[employer] AGENT Work Phone: [facility] 12-31-2021 10:19-0400 Heart rate 58 /min Karishma Franz APRN.REGION[employer]DL[employer] AGENT Work Phone: [facility] 12-31-2021 10:19-0400 SaO2% (BldA) [Mass fraction] 100 % Karishma Franz APRN.REGION[employer]DL[employer] AGENT Work Phone: [facility] 12-31-2021 10:19-0400 Systolic blood pressure 109 mm[Hg] Karishma Franz APRN.REGION[employer]ILDL[employer] AGENT Work Phone: [facility] 10-01-2021 11:14-0400 Body height 165.1 cm Fang Cote MD Work Phone: [facility] 10-01-2021 11:14-0400 Body temperature 96.8 [degF] Fang Cote MD Work Phone: [facility] 10-01-2021 11:14-0400 Body weight 61.69 kg Fang Cote MD Work Phone: [facility] 10-01-2021 11:14-0400 Diastolic blood pressure 54 mm[Hg] Fang Cote MD Work Phone: [facility] 10-01-2021 11:14-0400 Heart rate 59 /min Fang Cote MD Work Phone: [facility] 10-01-2021 11:14-0400 SaO2% (BldA) [Mass fraction] 99 % Fang Cote MD Work Phone: [facility] 10-01-2021 11:14-0400 Systolic blood pressure 115 mm[Hg] Fang Cote MD Work Phone: [facility] Encounters Encounter Date Encounter Type Care Provider Facility Start: 01-03-2025 End: 01-03-2025 ambulatory Lab/Port [facility] Work Phone: Hematology/Oncology Comment on above: Malignant neoplasm o f both ovaries (HCC) (Primary Dx) Start: 01-03-2025 End: 01-03-2025 Subsequent hospital visit by physician Ct [facility] Cat Scan Comment on above: Malignant neoplasm o f both ovaries (HCC) [C56.3] Start: 01-02-2025 End: 01-02-2025 Telephone encounter Js Cruz DO Work Phone: Hematology/Oncology Comment on above: Patient Question Start: 01-01-2025 End: 01-01-2025 ambulatory 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); Carcinomatosis (HCC); Anemia, unspecified type Start: 12-06-2024 End: 12-06-2024 Chart abstracting Shay Cardoza MD Work Phone: [facility] Comment on above: Outside Diabetic Eye Exam Start: 12-04-2024 End: 12-04-2024 Telephone encounter Js Cruz DO Work Phone: Hematology/Oncology Comment on above: Results Start: 12-04-2024 End: 12-04-2024 ambulatory Lab/Port [facility] Work Phone: Hematology/Oncology Comment on above: Malignant neoplasm o f both ovaries (HCC); 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 Shay Cardoza MD Work Phone: [facility] Work Phone: Start: 11-28-2024 End: 11-28-[address] Js Cruz DO -Medical Out Work Phone: Start: 11-27-2024 End: 11-27-2024 Telephone encounter Js Cruz DO Work Phone: Hematology/Oncology Comment on above: Transfusion Start: 11-27-2024 End: 11-27-[address] Shay Cardoza MD Work Phone: [facility] Work Phone: Start: 11-27-2024 End: 11-27-[address] 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); Carcinomatosis (HCC); Malignant ascites (HCC); Anemia, unspecified type Start: 11-23-2024 End: 11-23-2024 ambulatory Lab/Port [facility] Work Phone: Hematology/Oncology Comment on above: Malignant neoplasm o f both ovaries (HCC); Carcinomatosis (HCC); Chemotherapy-induced neuropathy (HCC); 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); Anemia, unspecified type Start: 11-17-2024 End: 11-17-2024 Telephone encounter Regla RAMEY Hematology/Oncology Comment on above: Social Work Services Patient Question Start: 11-16-2024 End: 11-16-2024 ambulatory Lab/Port [facility] Work Phone: Hematology/Oncology Comment on above: Malignant neoplasm o f both ovaries (HCC); 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); Carcinomatosis (HCC); Anemia, unspecified type Start: 11-14-2024 End: 11-14-2024 ambulatory Treatment Rm 17 [facility] Work Phone: Hematology/Oncology Comment on above: Iron deficiency anem ia due to chronic blood loss (Primary Dx); Iron malabsorption (HCC) Start: 11-09-2024 End: 11-09-2024 ambulatory JS CRUZ Facility:[facility] Start: 11-07-2024 End: 11-07-2024 ambulatory JS CRUZ Facility:[facility] Start: 11-06-2024 End: 11-06-2024 ambulatory Lab/Port [facility] Work Phone: Hematology/Oncology Comment on above: Malignant neoplasm o f both ovaries (HCC); 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 Js Cruz DO -Medical Out Work Phone: Start: 11-03-2024 End: 11-03-[address] 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); Carcinomatosis (HCC); Anemia, unspecified type Start: 10-31-2024 End: 10-31-2024 Telephone encounter Fang Cote MD Work Phone: [facility] Gynecology Oncology Comment on above: Appointment Start: 10-31-2024 End: 10-31-2024 ambulatory Treatment Rm 17 Zain [facility] Work Phone: Hematology/Oncology Comment on above: Iron deficiency anem ia due to chronic blood loss (Primary Dx); Iron malabsorption (HCC) Start: 10-30-2024 End: 10-30-2024 ambulatory Marian Akbar RN Work Phone: Pipe Supervisor Management Start: 10-30-2024 End: 10-30-2024 Telephone encounter Js Cruz DO Work Phone: Hematology/Oncology Comment on above: Medication Question Bi-weekly phone cont act (Recurring) for Transitional Care Management Start: 10-29-2024 End: 10-30-2024 Telephone encounter Js Cruz DO Work Phone: Hematology/Oncology Comment on above: Results Start: 10-27-2024 End: 10-27-2024 Telephone encounter Js Cruz DO Work Phone: Hematology/Oncology Comment on above: Results; Follow Up Start: 10-27-2024 End: 10-27-2024 Office outpatient visit 25 minutes Js Cruz DO Work Phone: Hematology/Oncology Comment on above: Malignant neoplasm o f both ovaries (HCC) (Primary Dx); Carcinomatosis (HCC); Malignant ascites (HCC); Anemia, unspecified type Start: 10-27-2024 End: 10-27-2024 ambulatory Lab/Port [facility] Work Phone: Hematology/Oncology Comment on above: Malignant neoplasm o f both ovaries (HCC); 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); Carcinomatosis (HCC); Chemotherapy-induced neuropathy (HCC); Malignant ascites (HCC); Microcytic anemia Start: 10-26-2024 End: 10-26-2024 Orders Only Js Cruz DO Work Phone: Hematology/Oncology Comment on above: Malignant neoplasm o f both ovaries (HCC) (Primary Dx); 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); Carcinomatosis (HCC); Malignant ascites (HCC); Microcytic anemia Start: 10-24-2024 End: 12-24-2024 Follow-up encounter Modesto Laird APRN.CNP Work Phone: [facility] Start: 10-23-2024 End: 10-24-2024 Telephone encounter Js Cruz DO Work Phone: Hematology/Oncology Comment on above: Results Patient Question Start: 10-23-2024 End: 10-23-2024 Subsequent hospital visit by physician [facility] Work Phone: Radiology Comment on above: Bilateral lower extr emity edema [R60.0] Start: 10-23-2024 End: 10-23-2024 ambulatory Lab/Port [facility] Work Phone: Hematology/Oncology Comment on above: Malignant neoplasm o f both ovaries (HCC); 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); Carcinomatosis (HCC) Start: 10-20-2024 End: 10-20-2024 Telephone encounter Fang Cote MD Work Phone: [facility] Comment on above: Appointment Start: 10-17-2024 End: 10-20-2024 Telephone encounter Doreen Jerome RN Hematology/Oncology Comment on above: 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 (Hospital Discharge ) Patient Update Start: 10-16-2024 End: 10-16-2024 ambulatory Codi Avalos RN Work Phone: Pipe Supervisor Management Comment on above: Primary Care Coordin ator- Other (Chart Review ) Start: 10-10-2024 End: 10-10-2024 Telephone encounter Doreen Jerome RN Hematology/Oncology Comment on above: Appointment (Hospita l Admission ) Start: 10-06-2024 End: 10-06-2024 ambulatory Sharee Funes RN NURSE IMPERSONATOR CHARACTER Comment on above: Information; Patient Update Transition Of Care ( Hospital reach in call) Start: 10-05-2024 End: 10-14-2024 Evaluation and management of inpatient FANG COTE Facility:[facility] Start: 10-05-2024 End: 10-06-2024 Telephone encounter Js Cruz DO Work Phone: Hematology/Oncology Comment on above: Patient Update Start: 10-04-2024 End: 10-04-2024 ambulatory KAREN VICENTE [facility] Start: 09-29-2024 End: 09-29-2024 Telephone encounter Js Cruz DO Work Phone: Hematology/Oncology Comment on above: Results Start: 09-29-2024 End: 09-29-2024 ambulatory Lab/Port [facility] Work Phone: Hematology/Oncology Comment on above: Malignant neoplasm o f both ovaries (HCC); 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); Carcinomatosis (HCC) Start: 09-22-2024 End: 09-25-2024 Telephone encounter Js Cruz DO Work Phone: Hematology/Oncology Comment on above: Results Start: 09-22-2024 End: 09-22-2024 ambulatory Lab/Port [facility] Work Phone: Hematology/Oncology Comment on above: Malignant neoplasm o f both ovaries (HCC) (Primary Dx); 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); Carcinomatosis (HCC); Essential hypertension; Mixed hyperlipidemia; Chemotherapy-induced neuropathy (HCC) Start: 09-21-2024 End: 09-21-2024 Telephone encounter Doreen Jerome RN Hematology/Oncology Comment on above: 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 (Symptoms ) Start: 09-20-2024 End: 09-20-2024 ambulatory KAREN [facility] Facility[facility] Start: 09-15-2024 End: 09-15-2024 ambulatory Lab/Port [facility] Work Phone: Hematology/Oncology Comment on above: Malignant neoplasm o f both ovaries (HCC); 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); Carcinomatosis (HCC); Chemotherapy-induced neuropathy (HCC); Microcytic anemia Start: 09-11-2024 End: 09-11-2024 Telephone encounter Doreen Jerome RN Hematology/Oncology Comment on above: 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 (Oral Anti-Cancer Agents Follow-up ) Start: 09-09-2024 End: 09-10-2024 Telephone encounter Js Cruz DO Work Phone: NE Provider Adult Comment on above: Follow Up Start: 09-08-2024 End: 09-08-2024 Office outpatient visit 25 minutes Js Cruz DO Work Phone: Hematology/Oncology Comment on above: Malignant neoplasm o f both ovaries (HCC) (Primary Dx); 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); Carcinomatosis (HCC); Malignant ascites; Chemotherapy-induced neuropathy (HCC); Microcytic anemia Start: 09-08-2024 End: 09-08-2024 ambulatory Lab/Port [facility] Work Phone: Hematology/Oncology Comment on above: Malignant neoplasm o f both ovaries (HCC); 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); Carcinomatosis (HCC); Microcytic anemia Start: 09-07-2024 End: 09-08-2024 Patient Outreach Beatrice Francis RN Pipe Supervisor Management Comment on above: Weekly phone contact (Recurring) for Transitional Care Management 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 (Symptoms ) Start: 09-06-2024 End: 09-06-2024 ambulatory KAREN NITJatin [facility] Start: 09-05-2024 End: 11-20-2024 Telephone encounter Shay Cardoza MD Work Phone: [facility] Comment on above: Orders Start: 09-05-2024 End: 09-05-2024 Telemedicine consultation with patient Fang Cote MD Work Phone: [facility] Gynecology Oncology Start: 09-05-2024 End: 09-05-2024 ambulatory Fang Cote MD Work Phone: [facility] Gynecology Oncology Comment on above: Malignant ascites (P rimary Dx); Chemotherapy-induced neuropathy (HCC); BRCA2 gene mutation positive; Chemotherapy-induced fatigue; 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) Start: 09-05-2024 End: 09-05-2024 Patient encounter procedure Shay Cardoza MD Work Phone: [facility] Comment on above: Medicare annual [facility] [place] [facility] visit, subsequent (Primary Dx); Essential hypertension; Mixed hyperlipidemia; Impaired fasting glucose; GERD without esophagitis; Iron deficiency anemia due to chronic blood loss; Iron malabsorption; Panic attacks; Anemia, unspecified type; Malignant neoplasm of upper-outer quadrant of right breast in female, estrogen receptor positive (HCC); Carcinoma of fallopian tube, unspecified laterality (HCC); Carcinomatosis (HCC); Chemotherapy-induced neuropathy (HCC); 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); Malignant neoplasm of both ovaries (HCC); Primary insomnia; Constipation, unspecified constipation type; Advance directive discussed with patient; Screening for depression Start: 08-31-2024 End: 08-31-2024 ambulatory Prachi Cline RN Work Phone: Pipe Supervisor Management Start: 08-31-2024 End: 09-01-2024 Telephone encounter Doreen Jerome RN Hematology/Oncology Comment on above: 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 (Received lynparza ) Start: 08-31-2024 End: 08-31-2024 Telephone follow-up Prachi Cline RN Work Phone: Pipe Supervisor Management Comment on above: Transition Of Care ( TCM follow up) Weekly phone contact (Recurring) for Transitional Care Management Start: 08-30-2024 End: 08-30-2024 ambulatory Lab/Port [facility] Work Phone: Hematology/Oncology Comment on above: Malignant neoplasm o f both ovaries (HCC); 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); Carcinomatosis (HCC); Impaired fasting glucose; Essential hypertension; Mixed hyperlipidemia; Chemotherapy-induced neuropathy (HCC) Start: 08-30-2024 End: 08-30-2024 Subsequent hospital visit by physician Christi [facility] (I-Stat) Work Phone: Cat Scan Comment on above: Malignant neoplasm m etastatic to omentum (HCC) [C78.6] Start: 08-29-2024 End: 08-29-2024 Telephone encounter Doreen Jerome RN Hematology/Oncology Comment on above: 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 (Oral Anti-Cancer Agents ) Start: 08-25-2024 End: 09-04-2024 Telephone encounter Js Cruz DO Work Phone: Hematology/Oncology Comment on above: Appointment; Care Co ordinator - Other Start: 08-25-2024 End: 08-25-2024 ambulatory CORINNE TEMPLETON [facility] Start: 08-24-2024 End: 08-24-2024 ambulatory Prachi Cline RN Work Phone: Pipe Supervisor Management Start: 08-24-2024 End: 08-24-2024 Telephone follow-up Prachi Cline RN Work Phone: Pipe Supervisor Management Comment on above: Transition Of Care ( TCM follow up) Weekly phone contact (Recurring) for Transitional Care Management Start: 08-23-2024 End: 08-23-2024 Telephone encounter Regla RAMEY Hematology/Oncology Comment on above: Christiano Patient Ass majo Start: 08-16-2024 End: 08-16-2024 Telephone encounter Js Cruz DO Work Phone: Hematology/Oncology Comment on above: Medication Problem Start: 08-15-2024 End: 08-15-2024 Patient Outreach Prachi Cline RN Work Phone: Pipe Supervisor Management Comment on above: Transition Of Care ( TCM Initial Outreach) Initial phone contact for Transitional Care Management 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 (Hospital Discharge ) Start: 08-13-2024 End: 08-14-2024 Evaluation and management of inpatient CRISTOFER GUEVARA Facility:[facility] Start: 08-10-2024 End: 08-10-2024 ambulatory Treatment Rm 9 [facility] Work Phone: Hematology/Oncology Comment on above: Carcinomatosis (HCC) (Primary Dx); Malignant neoplasm of both ovaries (HCC); 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) Start: 08-09-2024 End: 08-09-2024 Admission to same day surgery center Wu Moe MD Work Phone: General Surgery Comment on above: Rectal bleeding (Hawa camren Dx); Dysphagia, unspecified type Start: 08-09-2024 End: 08-09-2024 ambulatory SHAY CARDOZA Facility:[facility] Start: 08-09-2024 End: 08-09-2024 Telemedicine consultation with patient Wu Moe MD Work Phone: General Surgery Start: 08-08-2024 End: 08-08-2024 Telephone encounter Js Cruz DO Work Phone: Hematology/Oncology Comment on above: Patient Question Start: 08-08-2024 End: 08-08-2024 ambulatory CORINNE TEMPLETON Facility[facility] Start: 08-04-2024 End: 08-04-2024 Telephone encounter Doreen Jerome RN Hematology/Oncology Comment on above: 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 (C1D1 Post Treatment Call (gemzar)) Start: 08-03-2024 End: 08-03-2024 ambulatory Treatment Rm 3 Zain [facility] Work Phone: Hematology/Oncology Comment on above: Carcinomatosis (HCC) (Primary Dx); 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); Malignant neoplasm of both ovaries (HCC) Start: 08-02-2024 End: 08-02-2024 ambulatory Gildardo Stevenson [facility] Start: 08-02-2024 End: 08-02-2024 [facility] Comment on above: SPP Oral Oncology/he matology - Treatment Referral (Lynparza 150 mg); Insurance Authorization ([place] Pending) Start: 08-02-2024 End: 08-02-2024 Telephone encounter Doreen Jerome RN Hematology/Oncology Comment on above: 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 (Chemotherapy Education ) Start: 08-01-2024 End: 08-01-2024 Telephone encounter Js Cruz DO Work Phone: Hematology/Oncology Comment on above: avs 08/01 Start: 08-01-2024 End: 08-01-2024 Office outpatient visit 25 minutes Js Cruz DO Work Phone: Hematology/Oncology Comment on above: Malignant neoplasm o f both ovaries (HCC) (Primary Dx); 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); Carcinomatosis (HCC); Malignant ascites; Chemotherapy-induced neuropathy (HCC); Fallopian tube carcinoma, left (HCC); BRCA2 gene mutation positive Start: 08-01-2024 End: 08-01-2024 ambulatory Lab/Port [facility] Work Phone: Hematology/Oncology Comment on above: Malignant neoplasm o f both ovaries (HCC); 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); Carcinomatosis (HCC); Chemotherapy-induced neuropathy (HCC) Start: 07-31-2024 ambulatory ALBERTO COBOS Facili [facility] Start: 07-31-2024 End: 07-31-2024 Subsequent hospital visit by physician Wu Moe MD Work Phone: [facility] Comment on above: Hemorrhoids, unspeci fied hemorrhoid type [K64.9] Start: 07-30-2024 End: 07-30-2024 ambulatory Tosha Story RN NURSE IMPERSONATOR CHARACTER Comment on above: Information Start: 07-30-2024 End: 07-30-2024 Patient encounter procedure Tosha Story RN NURSE IMPERSONATOR CHARACTER Comment on above: Clinical Update Start: 07-28-2024 End: 07-28-2024 ambulatory SHAY Aniceto NANI Facility:[facility] Start: 07-28-2024 End: 07-28-2024 Subsequent hospital visit by physician Christi [facility] (I-Stat) Work Phone: Cat Scan Comment on above: Malignant neoplasm o f both ovaries (HCC) [C56.3] Start: 07-28-2024 End: 07-28-2024 ambulatory Lab/Port [facility] Work Phone: Hematology/Oncology Comment on above: Encounter for immuno therapy (Primary Dx); Malignant neoplasm of both ovaries (HCC) Start: 07-26-2024 End: 07-26-2024 ambulatory SHAY CARDOZA Facility:[facility] Start: 07-26-2024 End: 07-26-2024 Patient encounter procedure Wu Moe MD Work Phone: General Surgery Comment on above: Rectal bleeding (Hawa carmen Dx); Hemorrhoids, unspecified hemorrhoid type; Dysphagia, unspecified type Start: 07-25-2024 End: 07-31-2024 Telephone encounter Js Cruz DO Work Phone: Hematology/Oncology Comment on above: Appointment Start: 07-25-2024 End: 07-25-2024 ambulatory CORINNE TEMPLETON Facility[facility] Start: 07-20-2024 End: 07-20-2024 Chart abstracting Lala Maldonado RN Hematology/Oncology Comment on above: Research ([id number] Consent) Start: 07-20-2024 End: 07-20-2024 Telephone encounter Js Cruz DO Work Phone: Hematology/Oncology Comment on above: Patient Update Start: 07-20-2024 End: 07-20-2024 ambulatory Treatment Rm 6 Z[facility] Work Phone: Hematology/Oncology Comment on above: Carcinomatosis (HCC) (Primary Dx); Malignant neoplasm of both ovaries (HCC); 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) Start: 07-18-2024 End: 07-18-2024 ambulatory Kaylyn Peguero RN [facility] Comment on above: You are scheduled fo r a paracentesis at [facility] on Wednesday07/25/24 at 10:00 am Start: 07-18-2024 End: 07-18-2024 E-mail encounter from caregiver Kaylyn Peguero RN [facility] Start: 07-07-2024 End: 07-07-2024 Telephone encounter Js Cruz DO Work Phone: Hematology/Oncology Comment on above: Patient Update Start: 07-07-2024 End: 07-07-2024 Emergency department patient visit SHAY CARDOZA Facility[facility] Start: 07-06-2024 End: 07-06-2024 Telephone encounter Doreen Jerome RN Hematology/Oncology Comment on above: 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 (Results ) Start: 07-06-2024 End: 07-06-2024 ambulatory Treatment Rm 9 Z[facility] Work Phone: Hematology/Oncology Comment on above: Carcinomatosis (HCC) (Primary Dx); 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); Malignant neoplasm of both ovaries (HCC) Start: 07-04-2024 End: 07-05-2024 Telephone encounter Js Cruz DO Work Phone: Hematology/Oncology Comment on above: avs 07/04 Start: 07-04-2024 End: 07-04-2024 Office outpatient visit 25 minutes Js Cruz DO Work Phone: Hematology/Oncology Comment on above: Malignant neoplasm o f both ovaries (HCC) (Primary Dx); 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); Carcinomatosis (HCC); Chemotherapy-induced neuropathy (HCC); Other ascites; Malignant ascites Start: 07-04-2024 End: 07-04-2024 ambulatory Lab/Port [facility] Work Phone: Hematology/Oncology Comment on above: Malignant neoplasm o f both ovaries (HCC); 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); Carcinomatosis (HCC); Chemotherapy-induced neuropathy (HCC) Start: 07-03-2024 End: 07-03-2024 ambulatory MAIK AC [facility] Start: 06-30-2024 End: 06-30-2024 Telephone encounter Js Cruz DO Work Phone: Hematology/Oncology Comment on above: Follow Up Start: 06-28-2024 End: 06-28-2024 Telephone encounter Rei Tejeda RN [facility] Comment on above: Neoplasm of fallopia n tube (Primary Dx) Start: 06-28-2024 End: 06-28-2024 ambulatory Lab/Port [facility] Work Phone: Hematology/Oncology Comment on above: Malignant ascites Malignant ascites (P rimary Dx); Malignant neoplasm of both ovaries (HCC); Chemotherapy-induced neuropathy (HCC); Early satiety Start: 06-28-2024 End: 06-28-2024 Patient encounter procedure Fang Cote MD Work Phone: Gynecology Oncology Start: 06-23-2024 End: 06-23-2024 ambulatory Treatment Rm 5 Zain [facility] Work Phone: Hematology/Oncology Comment on above: Carcinomatosis (HCC) (Primary Dx); Malignant neoplasm of both ovaries (HCC); 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) Start: 06-22-2024 End: 06-22-2024 Telephone encounter Js Cruz DO Work Phone: Hematology/Oncology Comment on above: Results Start: 06-15-2024 End: 06-15-2024 Subsequent hospital visit by physician Ct Prep [facility] Cat Scan Comment on above: Malignant neoplasm o f both ovaries (HCC) [C56.3] Start: 06-15-2024 End: 06-15-2024 ambulatory Lab/Port [facility] Work Phone: Hematology/Oncology Comment on above: Carcinomatosis (HCC) (Primary Dx) Start: 06-08-2024 End: 06-08-2024 ambulatory Treatment Rm 3 Zain [facility] Work Phone: Hematology/Oncology Comment on above: Carcinomatosis (HCC) (Primary Dx); 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); Malignant neoplasm of both ovaries (HCC) Start: 06-07-2024 End: 06-07-2024 Patient encounter procedure Kasi Welch REGIONAL WILDLIFE AGENT Work Phone: Hematology/Oncology Start: 06-07-2024 End: 06-07-2024 ambulatory Lab/Port [facility] Work Phone: Hematology/Oncology Comment on above: Malignant neoplasm o f both ovaries (HCC); 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); Carcinomatosis (HCC); Chemotherapy-induced neuropathy (HCC) Malignant neoplasm o f both ovaries (HCC) (Primary Dx); Carcinomatosis (HCC) Start: 05-25-2024 End: 05-25-2024 ambulatory Treatment Rm 8 [facility] Work Phone: Hematology/Oncology Comment on above: Carcinomatosis (HCC) (Primary Dx); Malignant neoplasm of both ovaries (HCC); 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 Hannon er Start: 05-16-2024 End: 05-16-2024 Telephone encounter Doreen Jerome RN Hematology/Oncology Comment on above: 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 (Schedule ) Start: 05-12-2024 End: 05-12-2024 Chart abstracting Shay Cardoza MD Work Phone: [facility] Comment on above: Outside Diabetic Eye Exam Start: 05-11-2024 End: 05-11-2024 ambulatory aFng Cote MD Work Phone: Gynecology Oncology Comment on above: BRCA2 gene mutation positive (Primary Dx); Neoplasm of fallopian tube; Chemotherapy-induced neuropathy (HCC) Start: 05-11-2024 End: 05-11-2024 Telemedicine consultation with patient Fang Cote MD Work Phone: Gynecology Oncology Start: 05-11-2024 End: 05-11-2024 ambulatory SHAY CARDOZA Facility:[facility] Start: 05-10-2024 End: 05-10-2024 ambulatory Treatment Rm 6 Zain [facility] [employer] Work Phone: Hematology/Oncology Comment on above: Carcinomatosis (HCC) (Primary Dx); 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); Malignant neoplasm of both ovaries (HCC) Start: 05-09-2024 End: 05-09-2024 Patient encounter procedure Amy Hernandez Work Phone: Hematology/Oncology Start: 05-09-2024 End: 05-09-2024 ambulatory Lab/Port [facility] [employer] Work Phone: Hematology/Oncology Comment on above: Malignant neoplasm o f both ovaries (HCC); 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); Carcinomatosis (HCC) Malignant neoplasm o f both ovaries (HCC) (Primary Dx); Carcinomatosis (HCC) Start: 05-03-2024 End: 05-03-2024 ambulatory Treatment Rm 8 [facility] [employer] Work Phone: Hematology/Oncology Comment on above: Malignant neoplasm o f both ovaries (HCC); 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); Carcinomatosis (HCC) Start: 04-27-2024 End: 04-27-2024 Telephone encounter Fang Cote MD Work Phone: Gynecology Oncology Comment on above: Appointment Start: 04-26-2024 End: 04-26-2024 ambulatory Treatment Rm 12 Zain [facility] [employer] Work Phone: Hematology/Oncology Comment on above: Carcinomatosis (HCC) (Primary Dx); Malignant neoplasm of both ovaries (HCC); 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) Start: 04-25-2024 End: 04-25-2024 Telephone encounter Js Cruz DO Work Phone: Hematology/Oncology Comment on above: Patient Question Start: 04-20-2024 End: 04-20-2024 ambulatory Treatment Rm 2 Zain [facility] Work Phone: Hematology/Oncology Comment on above: Carcinomatosis (HCC) (Primary Dx); Malignant neoplasm of both ovaries (HCC); 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) Start: 04-13-2024 ambulatory SHAY Dougherty ty:[facility] Start: 04-06-2024 End: 04-06-2024 ambulatory Treatment Rm 4 Zain [facility] Work Phone: Hematology/Oncology Comment on above: Malignant neoplasm o f both ovaries (HCC) (Primary Dx); 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); Carcinomatosis (HCC) Start: 03-30-2024 End: 03-30-2024 ambulatory Treatment Rm 3 Zain [facility] Work Phone: Hematology/Oncology Comment on above: Carcinomatosis (HCC) (Primary Dx); 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); Malignant neoplasm of both ovaries (HCC) Start: 03-29-2024 End: 03-29-2024 Patient encounter procedure Js Cruz DO Work Phone: Hematology/Oncology Start: 03-29-2024 End: 03-29-2024 ambulatory Lab/Port [facility] Work Phone: Hematology/Oncology Comment on above: Malignant neoplasm m etastatic to omentum (HCC) (Primary Dx); Malignant neoplasm of both ovaries (HCC); Carcinomatosis (HCC) Malignant neoplasm o f both ovaries (HCC) (Primary Dx); Carcinomatosis (HCC); Chemotherapy-induced neuropathy (HCC) Start: 03-22-2024 End: 03-22-2024 ambulatory Lab/Port [facility] Work Phone: Hematology/Oncology Comment on above: Malignant neoplasm o f both ovaries (HCC) (Primary Dx) Start: 03-22-2024 End: 03-22-2024 Subsequent hospital visit by physician Ct Prep [facility] Cat Scan Comment on above: Malignant neoplasm m etastatic to omentum (HCC) [C78.6] Start: 03-16-2024 End: 03-16-2024 ambulatory Treatment 3 [facility] [employer] Work Phone: Hematology/Oncology Comment on above: Carcinomatosis (HCC) (Primary Dx); Malignant neoplasm of both ovaries (HCC); 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) Start: 03-09-2024 End: 03-09-2024 ambulatory Treatment Rm 3 [facility] Work Phone: Hematology/Oncology Comment on above: Carcinomatosis (HCC) (Primary Dx); Malignant neoplasm of both ovaries (HCC); 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) Start: 03-02-2024 End: 03-02-2024 ambulatory Treatment 3 [facility] [employer] Work Phone: Hematology/Oncology Comment on above: Malignant neoplasm o f both ovaries (HCC) (Primary Dx); 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); Carcinomatosis (HCC) Start: 03-01-2024 End: 03-01-2024 ambulatory SHAY CARDOZA Facility:[facility] Start: 03-01-2024 End: 03-01-2024 Patient encounter procedure Shay Cardoza MD Work Phone: [facility] Comment on above: Essential hypertensi on (Primary Dx); Mixed hyperlipidemia; Impaired fasting glucose; GERD without esophagitis; Panic attacks Start: 02-29-2024 End: 02-29-2024 Patient encounter procedure Js Cruz DO Work Phone: Hematology/Oncology Start: 02-29-2024 End: 02-29-2024 ambulatory Lab/Port [facility] Work Phone: Hematology/Oncology Comment on above: Malignant neoplasm o f both ovaries (HCC); 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); Carcinomatosis (HCC) Malignant neoplasm m etastatic to omentum (HCC) (Primary Dx); Malignant neoplasm of both ovaries (HCC); Chemotherapy-induced neuropathy (HCC) Start: 02-24-2024 End: 02-24-2024 Telephone encounter Js Cruz DO Work Phone: Hematology/Oncology Comment on above: Medication Question Start: 02-16-2024 End: 02-16-2024 ambulatory Treatment Rm 8 [facility] [employer] Work Phone: Hematology/Oncology Comment on above: Carcinomatosis (HCC) (Primary Dx); Malignant neoplasm of both ovaries (HCC); 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) Start: 02-10-2024 End: 02-10-2024 ambulatory Treatment Rm 3 [facility] [employer] Work Phone: Hematology/Oncology Comment on above: Carcinomatosis (HCC) (Primary Dx); Malignant neoplasm of both ovaries (HCC); 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) Start: 02-07-2024 End: 02-09-2024 Telephone encounter Doreen Jerome RN Hematology/Oncology Comment on above: 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 (C1D1 Post Treatment Call (Avastin/Topotecan) ) Start: 02-04-2024 End: 02-04-2024 ambulatory Treatment Rm 2 [facility] [employer] Work Phone: Hematology/Oncology Comment on above: Carcinomatosis (HCC) (Primary Dx); Malignant neoplasm of both ovaries (HCC); 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) Start: 01-31-2024 Telephone encounter Js guzman DO Work Phone: Hematology/Oncology Comment on above: Patient Update Start: 01-28-2024 End: 01-28-2024 ambulatory Js Cruz DO Work Phone: Hematology/Oncology Comment on above: Malignant neoplasm o f both ovaries (HCC) (Primary Dx); Carcinomatosis (HCC); Chemotherapy-induced neuropathy (HCC) Start: 01-28-2024 End: 01-28-2024 Patient encounter procedure Js Cruz DO Work Phone: Hematology/Oncology Start: 01-28-2024 Telephone encounter Doreen Jerome RN He matology/Oncology Comment on above: 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 (Change in treatment ) Start: 01-24-2024 End: 01-24-2024 ambulatory Lab/Port [facility] [employer] Work Phone: Hematology/Oncology Comment on above: Malignant neoplasm o f both ovaries (HCC); 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); Carcinomatosis (HCC) Start: 01-24-2024 End: 01-24-2024 Subsequent hospital visit by physician Christi [facility] ([facility]) Work Phone: Cat Scan Comment on above: Malignant neoplasm o f both ovaries (HCC) [C56.3] Start: 01-20-2024 Telephone encounter Js guzman DO Work Phone: Hematology/Oncology Comment on above: Appointment Start: 01-17-2024 End: 01-17-2024 Patient encounter procedure Js Cruz DO Work Phone: Hematology/Oncology Start: 01-17-2024 End: 01-17-2024 ambulatory Lab/Port [facility] Work Phone: Hematology/Oncology Comment on above: Malignant neoplasm o f both ovaries (HCC); 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); Carcinomatosis (HCC) Malignant neoplasm o f both ovaries (HCC) (Primary Dx) Malignant neoplasm o f both ovaries (HCC) (Primary Dx); 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); Chemotherapy-induced neuropathy (HCC); Essential hypertension; Carcinomatosis (HCC); Keratitis Start: 01-13-2024 Chart abstracting Shay meehan MD Work Phone: [facility] Comment on above: Outside Diabetic Eye Exam Start: 01-02-2024 Telephone encounter Js guzman DO Work Phone: Hematology/Oncology Comment on above: Results Start: 12-27-2023 End: 12-27-2023 Patient encounter procedure Kasi Welch APRN.[employer] Work Phone: Hematology/Oncology Start: 12-27-2023 End: 12-27-2023 ambulatory Lab/[place] [facility] Work Phone: Hematology/Oncology Comment on above: Malignant neoplasm o f both ovaries (HCC); 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); Carcinomatosis (HCC) Malignant neoplasm o f both ovaries (HCC) (Primary Dx); 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); Carcinomatosis (HCC); Pneumonitis Start: 12-21-2023 End: 12-21-2023 Subsequent hospital visit by physician [facility] [employer] ([facility]) Work Phone: Cat Scan Comment on above: Pneumonitis [J98.4] Start: 12-09-2023 Telephone encounter Js guzman DO Work Phone: Hematology/Oncology Comment on above: Results Start: 12-09-2023 End: 12-09-2023 ambulatory Fang Cote MD Work Phone: Gynecology Oncology Comment on above: BRCA2 gene mutation positive (Primary Dx); Chemotherapy-induced neuropathy (HCC) ; Chemotherapy-induced fatigue; Neoplasm of fallopian tube Start: 12-09-2023 End: 12-09-2023 Patient encounter procedure Fang Cote MD Work Phone: Gynecology Oncology Start: 12-07-2023 End: 12-07-2023 ambulatory Treatment 8 [facility] [employer] Work Phone: Hematology/Oncology Comment on above: Carcinomatosis (HCC) (Primary Dx); Malignant neoplasm of both ovaries (HCC); 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) Start: 12-06-2023 End: 12-06-2023 Office outpatient visit 25 minutes Js Cruz DO Work Phone: Hematology/Oncology Comment on above: Malignant neoplasm o f both ovaries (HCC) (Primary Dx); 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); Carcinomatosis (HCC); Iron deficiency anemia due to chronic blood loss; Essential hypertension; Thrombocytopenia (HCC); Chemotherapy-induced neuropathy (HCC); Keratitis Start: 12-06-2023 End: 12-06-2023 ambulatory Lab/Port [facility] [employer] Work Phone: Hematology/Oncology Comment on above: Malignant neoplasm o f both ovaries (HCC); 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); Carcinomatosis (HCC) Start: 12-02-2023 End: 12-02-2023 ambulatory Lab/Port [facility] [employer] Work Phone: Hematology/Oncology Comment on above: Malignant neoplasm o f both ovaries (HCC) (Primary Dx) Start: 12-02-2023 End: 12-02-2023 Subsequent hospital visit by physician Ct Prep [facility] Cat Scan Comment on above: Malignant neoplasm o f both ovaries (HCC) [C56.3] Start: 11-17-2023 End: 11-17-2023 ambulatory Treatment Rm 6 [facility] Work Phone: Hematology/Oncology Comment on above: Carcinomatosis (HCC) (Primary Dx); Malignant neoplasm of both ovaries (HCC); 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) Start: 11-12-2023 End: 11-12-2023 Office outpatient visit 25 minutes Js Cruz DO Work Phone: Hematology/Oncology Comment on above: Malignant neoplasm o f both ovaries (HCC) (Primary Dx); 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); Carcinomatosis (HCC) Start: 11-12-2023 End: 11-12-2023 ambulatory Lab/Port [facility] Work Phone: Hematology/Oncology Comment on above: Malignant neoplasm o f both ovaries (HCC) (Primary Dx); 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); Carcinomatosis (HCC) Start: 11-01-2023 Telephone encounter Js guzman DO Work Phone: Hematology/Oncology Comment on above: Orders Start: 10-26-2023 Telephone encounter Doreen Jerome RN He matology/Oncology Start: 10-26-2023 End: 10-26-2023 ambulatory Treatment Rm 11 [facility] Work Phone: Hematology/Oncology Comment on above: Carcinomatosis (HCC) (Primary Dx); Malignant neoplasm of both ovaries (HCC); 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) Start: 10-20-2023 End: 10-20-2023 Office outpatient visit 25 minutes Js Cruz DO Work Phone: Hematology/Oncology Comment on above: Malignant neoplasm o f both ovaries (HCC) (Primary Dx); Carcinomatosis (HCC); Iron deficiency anemia due to chronic blood loss; Essential hypertension; Thrombocytopenia (HCC); Chemotherapy-induced neuropathy (HCC); Keratitis Start: 10-20-2023 End: 10-20-2023 ambulatory Lab/Port [facility] Work Phone: Hematology/Oncology Comment on above: Malignant neoplasm o f both ovaries (HCC); 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); Carcinomatosis (HCC) Start: 10-06-2023 Telephone encounter Doreen Jerome RN He matology/Oncology Comment on above: 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 (Toxicity Check) Start: 09-30-2023 Telephone encounter Doreen Jerome RN He matology/Oncology Comment on above: 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 (C1D1 Post Treatment Call (Elahere) ) Start: 09-29-2023 Telephone encounter Laura blevins RN Work Phone: Hematology/Oncology Comment on above: Care Coordination (F ollow Up Note ) Start: 09-29-2023 End: 09-29-2023 ambulatory Treatment Rm 10 [facility] Work Phone: Hematology/Oncology Comment on above: Malignant neoplasm o f both ovaries (HCC) (Primary Dx); 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); Carcinomatosis (HCC) Start: 09-27-2023 End: 09-27-2023 Patient encounter procedure Js Cruz DO Work Phone: [facility] Start: 09-27-2023 End: 09-27-2023 ambulatory Js Cruz DO Work Phone: Hematology/Oncology Comment on above: Malignant neoplasm o f both ovaries (HCC) (Primary Dx) Encounter for educat ion (Primary Dx); Malignant neoplasm of both ovaries (HCC) Start: 09-24-2023 Telephone encounter Js guzman DO Work Phone: Hematology/Oncology Comment on above: Appointment Start: 09-23-2023 Telephone encounter Laura blevins RN Work Phone: Hematology/Oncology Comment on above: Care Coordination (Q uestions) Start: 09-23-2023 End: 09-23-2023 ambulatory Treatment Rm 13 [facility] Work Phone: Hematology/Oncology Comment on above: Iron deficiency anem ia due to chronic blood loss (Primary Dx); Iron malabsorption; Malignant neoplasm of both ovaries (HCC); 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 neoplasm o f both ovaries (HCC) (Primary Dx); Iron deficiency anemia due to chronic blood loss; Iron malabsorption Start: 09-22-2023 End: 09-22-2023 Subsequent hospital visit by physician Ct Prep [facility] Cat Scan Comment on above: Malignant neoplasm o f both ovaries (HCC) [C56.3] Start: 09-21-2023 End: 09-21-2023 ambulatory Treatment 13 [facility] [employer] Work Phone: Hematology/Oncology Comment on above: Iron deficiency anem ia due to chronic blood loss (Primary Dx); Iron malabsorption Start: 09-16-2023 Telephone encounter Doreen Jerome RN He matology/Oncology Comment on above: Appointment (Chemo e ducation ) Start: 09-13-2023 End: 09-13-2023 ambulatory Treatment 13 [facility] [employer] Work Phone: Hematology/Oncology Comment on above: Iron deficiency anem ia due to chronic blood loss (Primary Dx); Iron malabsorption Start: 09-12-2023 Telephone encounter Js guzman DO Work Phone: Hematology/Oncology Comment on above: Results Start: 09-10-2023 End: 09-10-2023 ambulatory Treatment 13 [facility] [employer] Work Phone: Hematology/Oncology Comment on above: Iron deficiency anem ia due to chronic blood loss (Primary Dx); Iron malabsorption Start: 09-08-2023 Telephone encounter Doreen Lombardo matology/Oncology Comment on above: 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 (Change in treatment ) AVS 09/08/23, chemo s tart Start: 09-08-2023 End: 09-08-2023 ambulatory Js Cruz DO Work Phone: Hematology/Oncology Comment on above: Malignant neoplasm o f both ovaries (HCC) (Primary Dx); Carcinomatosis (HCC); Iron deficiency anemia due to chronic blood loss Start: 09-08-2023 End: 09-08-2023 Patient encounter procedure Js Cruz DO Work Phone: [facility] Start: 09-07-2023 Telephone encounter Kaley Melendez howard WORTHY Work Phone: Gynecology Oncology Comment on above: Patient Question; Re turning Patient's Call Start: 09-06-2023 Telephone encounter Js guzman DO Work Phone: Hematology/Oncology Comment on above: Appointment Start: 09-02-2023 End: 09-03-2023 ambulatory Fang Cote MD Work Phone: Gynecology Oncology Comment on above: 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 Start: 09-02-2023 Telephone encounter Js guzman DO Work Phone: Hematology/Oncology Start: 09-01-2023 End: 09-01-2023 ambulatory Lab/[place] [facility] Work Phone: Hematology/Oncology Comment on above: Anemia, unspecified type Start: 08-31-2023 Telephone encounter Js guzman DO Work Phone: Hematology/Oncology Comment on above: Results; Follow Up Start: 08-27-2023 Telephone encounter Shay Cardoza MD Work Phone: [facility] Comment on above: Results Start: 08-26-2023 End: 08-26-2023 ambulatory Lab/[place] [facility] Work Phone: Hematology/Oncology Comment on above: Malignant neoplasm o f both ovaries (HCC) (Primary Dx); 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); Carcinomatosis (HCC); Malignant neoplasm of both ovaries (HCC); Malignant neoplasm of upper-outer quadrant of right breast in female, estrogen receptor positive (HCC); Anemia, unspecified type; Carcinoma of fallopian tube, unspecified laterality (HCC); Advance directive discussed with patient Start: 08-20-2023 Telephone encounter Js guzman DO Work Phone: Hematology/Oncology Comment on above: Appointment Start: 08-13-2023 End: 08-14-2023 ambulatory Fang Cote MD Work Phone: Gynecology Oncology Comment on above: 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 Start: 08-11-2023 End: 08-11-2023 Patient encounter procedure Felix Craft MD Work Phone: Colorectal Surgery Comment on above: Cecal volvulus (HCC) (Primary Dx) Start: 08-04-2023 End: 08-04-[address] Work Phone: [facility] Start: 08-04-2023 End: 08-04-2023 Nutrition therapy Meme Arenas RD Work Phone: Nutrition Therapy Comment on above: Nutrition Telephone Start: 07-30-2023 End: 07-30-2023 Patient encounter procedure Js Cruz DO Work Phone: [facility] Start: 07-30-2023 End: 07-30-2023 ambulatory Lab/[place] [facility] Work Phone: Hematology/Oncology Comment on above: Malignant neoplasm o f both ovaries (HCC); 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); Carcinomatosis (HCC) Malignant neoplasm o f both ovaries (HCC) (Primary Dx); Leg swelling; Hypotension due to drugs Start: 07-29-2023 Orders Only Js Apple Work Phone: Hematology/Oncology Comment on above: Malignant neoplasm o f both ovaries (HCC) (Primary Dx); 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); Carcinomatosis (HCC) Start: 07-23-2023 Telephone encounter Js guzman DO Work Phone: Hematology/Oncology Comment on above: Appointment Start: 07-22-2023 Telephone encounter Rupa Murillo MD Work Phone: Gynecology Start: 07-02-2023 End: 07-02-2023 ambulatory Fang Cote MD Work Phone: Gynecology Oncology Comment on above: 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 Judd Cardoza Work Phone: [facility] Start: 06-01-2023 End: 06-02-2023 Emergency department patient visit Dr. Shay Cardoza Work Phone: [facility] Work Phone: Start: 06-01-2023 Telephone encounter Doreen Jerome RN He matology/Oncology Start: 05-27-2023 End: 05-27-2023 [facility] Work Phone: [facility]Oncology Comment on above: Malignant neoplasm o f both ovaries (HCC) (Primary Dx) Start: 05-27-2023 End: 05-27-2023 Subsequent hospital visit by physician Christi [facility] ([facility]) Work Phone: Cat Scan Comment on above: Malignant neoplasm o f both ovaries (HCC) [C56.3] Start: 05-19-2023 End: 05-19-2023 ambulatory Immunization Clinic Nurse Shine Work Phone: [facility] Start: 05-11-2023 End: 05-11-2023 Patient encounter procedure Echocardiogram [facility] Work Phone: Cardiology Comment on above: Malignant neoplasm o f both ovaries (HCC); Encounter for monitoring cardiotoxic drug therapy Start: 05-10-2023 End: 05-10-2023 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); Encounter for monitoring cardiotoxic drug therapy; Thrombocytopenia (HCC); Carcinomatosis (HCC); Chemotherapy-induced neuropathy (HCC) Start: 04-13-2023 Telephone encounter Shay Cardoza MD Work Phone: [facility] Comment on above: Patient Question Start: 04-12-2023 End: 04-12-2023 ambulatory Treatment Rm 9 [facility] Work Phone: Hematology/Oncology Comment on above: Malignant neoplasm o f both ovaries (HCC) (Primary Dx); 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); Carcinomatosis (HCC) Start: 04-09-2023 End: 04-09-2023 ambulatory Lab/[facility] Work Phone: Hematology/Oncology Comment on above: Malignant neoplasm o f both ovaries (HCC) Start: 03-12-2023 End: 03-12-2023 Patient encounter procedure Js Cruz DO Work Phone: [facility] Start: 03-12-2023 End: 03-12-2023 ambulatory Lab/[place] [facility] Work Phone: Hematology/Oncology Comment on above: Malignant neoplasm o f both ovaries (HCC) Malignant neoplasm o f both ovaries (HCC) (Primary Dx); 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); Carcinomatosis (HCC) Start: 03-04-2023 Telephone encounter Shay Cardoza MD Work Phone: [facility] Comment on above: Results Start: 03-04-2023 End: 03-04-2023 ambulatory Lab/[facility] Work Phone: Hematology/Oncology Comment on above: Essential hypertensi on; Mixed hyperlipidemia; Impaired fasting glucose Start: 03-04-2023 End: 03-04-2023 Subsequent hospital visit by physician [facility] ([facility]) Work Phone: Cat Scan Comment on above: Malignant neoplasm o f both ovaries (HCC) [C56.3] Start: 03-03-2023 Telephone encounter Js guzman DO Work Phone: Hematology/Oncology Comment on above: Patient Update Start: 02-24-2023 Telephone encounter Shay Cardoza MD Work Phone: [facility] Comment on above: Patient Update Start: 02-24-2023 End: 02-24-2023 Patient encounter procedure Shay Cardoza MD Work Phone: [facility] Comment on above: Essential hypertensi on (Primary Dx); Mixed hyperlipidemia; Impaired fasting glucose; GERD without esophagitis; Panic attacks; Anemia, unspecified type; Malignant neoplasm of upper-outer quadrant of right breast in female, estrogen receptor positive (HCC); Carcinomatosis (HCC); Chemotherapy-induced neuropathy (HCC); 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); Malignant neoplasm of both ovaries (HCC); Primary insomnia; Thrombocytopenia (HCC); Osteoarthritis of multiple joints, unspecified osteoarthritis type Start: 02-15-2023 End: 02-15-2023 ambulatory Treatment Rm 12 [facility] Work Phone: Hematology/Oncology Comment on above: Malignant neoplasm o f both ovaries (HCC) (Primary Dx); 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); Carcinomatosis (HCC) Start: 02-12-2023 End: 02-12-2023 ambulatory Lab/[facility] Work Phone: Hematology/Oncology Comment on above: Malignant neoplasm o f both ovaries (HCC) Start: 02-04-2023 Telephone encounter Js guzman DO Work Phone: Hematology/Oncology Comment on above: Patient Question Start: 01-26-2023 Refill Shay lopez MD Work Phone: [facility] Comment on above: Refill Request Start: 01-15-2023 End: 01-15-2023 ambulatory Treatment Rm 7 [facility] Work Phone: Hematology/Oncology Comment on above: Malignant neoplasm o f both ovaries (HCC) (Primary Dx); 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); Carcinomatosis (HCC) Start: 01-14-2023 End: 01-14-2023 Patient encounter procedure Js Cruz DO Work Phone: [facility] Start: 01-14-2023 End: 01-14-2023 ambulatory Lab/[facility] Work Phone: Hematology/Oncology Comment on above: Malignant neoplasm o f prostate (HCC) (Primary Dx); Malignant neoplasm of both ovaries (HCC) Malignant neoplasm o f both ovaries (HCC) (Primary Dx); Carcinomatosis (HCC); Chemotherapy-induced neuropathy (HCC) Start: 01-06-2023 Telephone encounter Js guzman DO Work Phone: Hematology/Oncology Comment on above: Patient Question Start: 01-01-2023 Telephone encounter Shay Cardoza MD Work Phone: [facility] Comment on above: Question Start: 12-21-2022 Telephone encounter Parish cervantes MD Work Phone: Hematology/Oncology Comment on above: Appointment Reschedu led Start: 12-18-2022 Telephone encounter Laura blevins RN Work Phone: Hematology/Oncology Comment on above: Care Coordination (C YCLE 1/DAY 1 POST TREATMENT CALL ) Start: 12-17-2022 End: 12-17-2022 ambulatory Treatment Rm 1 [facility] Work Phone: Hematology/Oncology Comment on above: Malignant neoplasm o f prostate (HCC) (Primary Dx); Malignant neoplasm of both ovaries (HCC); 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); Carcinomatosis (HCC) Start: 12-16-2022 End: 12-16-2022 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: Hematology/Oncology Comment on above: Encounter for educat ion (Primary Dx) Start: 12-11-2022 Telephone encounter Js guzman DO Work Phone: Hematology/Oncology Comment on above: Clinical Update Start: 12-11-2022 End: 12-12-2022 ambulatory Fang Cote MD Work Phone: Gynecology Oncology Comment on above: Neoplasm of fallopia n tube (Primary Dx); BRCA2 gene mutation positive; Chemotherapy-induced neuropathy (HCC); Chemotherapy-induced fatigue Start: 12-11-2022 End: 12-12-2022 Telemedicine consultation with patient Fang Cote MD Work Phone: 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); Carcinomatosis (HCC) Start: 12-07-2022 End: 12-07-2022 Patient encounter procedure Js Cruz DO Work Phone: [facility] Start: 12-07-2022 Chart abstracting Shay meehan MD Work Phone: [facility] [place] Comment on above: Consult (Opthalmolog y ) Start: 12-07-2022 Telephone encounter Js guzman DO Work Phone: Hematology/Oncology Comment on above: AVS 12/07/2022 Start: 12-03-2022 Orders Only Kaley Lambrini justine CERTIFIED ORTHOTIST/PEDORTHIST.REGIONAL WILDLIFE AGENT Work Phone: Gynecology Oncology Comment on above: Suprapubic pain, acu te (Primary Dx); Abnormal finding on urinalysis Results Start: 11-27-2022 End: 11-27-2022 ambulatory Fang Cote MD Work Phone: Gynecology Oncology Comment on above: Fallopian tube carci noma, left (HCC) (Primary Dx); Chemotherapy-induced neuropathy (HCC); BRCA2 gene mutation positive; Chemotherapy-induced fatigue; Urge incontinence of urine Start: 11-27-2022 End: 11-27-2022 Patient encounter procedure Fang Cote MD Work Phone: [facility] Start: 11-23-2022 End: 11-23-2022 Subsequent hospital visit by physician Ct [facility] (I-Stat) Work Phone: Cat Scan Comment on above: Malignant neoplasm o f both ovaries (HCC) [C56.3] Start: 11-23-2022 End: 11-23-2022 ambulatory Lab/Port Zain [facility] Work Phone: Hematology/Oncology Comment on above: Malignant neoplasm o f both ovaries (HCC) (Primary Dx); Carcinomatosis (HCC) Start: 11-19-2022 Orders Only Js Apple Work Phone: Hematology/Oncology Comment on above: Malignant neoplasm o f both ovaries (HCC) (Primary Dx); Carcinomatosis (HCC) Start: 11-17-2022 Telephone encounter Shay Cardoza MD Work Phone: [facility] Comment on above: Results Start: 11-17-2022 End: 11-17-2022 ambulatory Lab/Port Zain [facility] Work Phone: Hematology/Oncology Comment on above: Bleeding from the no se; Thrombocytopenia (HCC) Start: 11-13-2022 End: 11-13-2022 Patient encounter procedure Shay Cardoza MD Work Phone: [facility] Comment on above: Bleeding from the no se (Primary Dx); Jaw pain; Thrombocytopenia (HCC) Start: 11-03-2022 End: 11-03-2022 ambulatory Injection Zain [facility] Work Phone: Hematology/Oncology Comment on above: Malignant neoplasm o f both ovaries (HCC) (Primary Dx); 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); Carcinomatosis (HCC) Start: 11-02-2022 End: 11-02-2022 ambulatory Treatment Rm 2 Zain [facility] Work Phone: Hematology/Oncology Comment on above: Malignant neoplasm o f both ovaries (HCC) (Primary Dx); 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); Carcinomatosis (HCC) Start: 10-30-2022 End: 10-30-2022 ambulatory Lab/Port Z[facility] Work Phone: Hematology/Oncology Comment on above: Malignant neoplasm o f both ovaries (HCC) (Primary Dx); Impaired fasting glucose; Essential hypertension; Mixed hyperlipidemia Start: 10-13-2022 End: 10-13-2022 ambulatory Injection Zain [facility] Work Phone: Hematology/Oncology Comment on above: Malignant neoplasm o f both ovaries (HCC) (Primary Dx); 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); Carcinomatosis (HCC) Start: 10-12-2022 End: 10-12-2022 ambulatory Treatment Rm 3 Zain [facility] Work Phone: Hematology/Oncology Comment on above: Malignant neoplasm o f both ovaries (HCC) (Primary Dx); 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); Carcinomatosis (HCC) Start: 10-09-2022 End: 10-09-2022 Patient encounter procedure Js Cruz DO Work Phone: [facility] Start: 10-09-2022 End: 10-09-2022 ambulatory Lab/Port Z[facility] Work Phone: Hematology/Oncology Comment on above: Malignant neoplasm o f both ovaries (HCC) Malignant neoplasm o f both ovaries (HCC) (Primary Dx); Carcinomatosis (HCC); Chemotherapy-induced neuropathy (HCC) Start: 10-01-2022 End: 10-01-2022 ambulatory Lab/Port Zain [facility] Work Phone: Hematology/Oncology Comment on above: Malignant neoplasm o f both ovaries (HCC) (Primary Dx) Start: 10-01-2022 End: 10-01-2022 Subsequent hospital visit by physician Ct Prep [facility] Cat Scan Comment on above: Malignant neoplasm o f both ovaries (HCC) [C56.3] Start: 09-22-2022 End: 09-22-2022 ambulatory Injection Zain [facility] Work Phone: Hematology/Oncology Comment on above: Malignant neoplasm o f both ovaries (HCC) (Primary Dx); Omental metastasis; Carcinomatosis (HCC) Start: 09-18-2022 End: 09-18-2022 Subsequent hospital visit by physician Xr [facility] [place] [facility] Work Phone: Radiology Comment on above: Acute pain of both k nees [M25.561, M25.562] Start: 09-18-2022 End: 09-18-2022 ambulatory Js Cruz DO Work Phone: Hematology/Oncology Comment on above: Malignant neoplasm o f both ovaries (HCC) (Primary Dx); Acute pain of both knees Start: 09-18-2022 End: 09-18-2022 Patient encounter procedure Js Cruz DO Work Phone: [facility] Start: 09-17-2022 Telephone encounter Js guzman DO Work Phone: Hematology/Oncology Comment on above: Patient Question; Or ders Start: 09-08-2022 Telephone encounter Doreen Lombardo matology/Oncology Comment on above: 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 (Follow-up ) Start: 09-02-2022 End: 09-02-2022 ambulatory Fang Cote MD Work Phone: [facility] Gynecology Oncology Comment on above: Fallopian tube carci noma, left (HCC) (Primary Dx); BRCA2 gene mutation positive; Chemotherapy-induced neuropathy (HCC) Start: 09-02-2022 End: 09-02-2022 Telemedicine consultation with patient Fang Cote MD Work Phone: [facility] Start: 09-01-2022 End: 09-01-2022 ambulatory Injection [facility] Work Phone: Hematology/Oncology Comment on above: Malignant neoplasm o f both ovaries (HCC) (Primary Dx); Omental metastasis (HCC); Carcinomatosis (HCC) Start: 09-01-2022 Telephone encounter Doreen Lombardo matology/Oncology Comment on above: 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 (C1D1 Post Treatment Call (Avastin)) Start: 08-31-2022 Telephone encounter Corinne Santana RN Gynecology Oncology Comment on above: Returning Patient's Call Start: 08-31-2022 End: 08-31-2022 ambulatory Treatment Rm 1 [facility] Work Phone: Hematology/Oncology Comment on above: Malignant neoplasm o f both ovaries (HCC) (Primary Dx); Omental metastasis (HCC); Carcinomatosis (HCC) Start: 08-28-2022 Documentation procedure Mammography Coordinator [facility] Start: 08-28-2022 Letter encounter Mammography Coordin ator [facility] Start: 08-28-2022 End: 08-28-2022 Patient encounter procedure Js Cruz DO Work Phone: [facility] Start: 08-28-2022 End: 08-28-2022 ambulatory Lab/Port Z[facility] Work Phone: Hematology/Oncology Comment on above: Malignant neoplasm o f both ovaries (HCC) Malignant neoplasm o f both ovaries (HCC) (Primary Dx) Start: 08-28-2022 End: 08-28-2022 Subsequent hospital visit by physician Screen Mammo [facility] Mammogram Comment on above: Encounter for screen ing mammogram for malignant neoplasm of breast [Z12.31] Start: 08-25-2022 End: 08-25-2022 Follow-up encounter Fang Cote MD Work Phone: [facility] Gynecology Oncology Comment on above: Fallopian tube carci noma, left (HCC) (Primary Dx); BRCA2 gene mutation positive; Encounter for follow-up surveillance of cancer of female genital tract organ; Chemotherapy-induced neuropathy (HCC); Urge incontinence of urine Start: 08-25-2022 End: 08-25-2022 Patient encounter procedure Fang Cote MD Work Phone: [facility] Start: 08-24-2022 End: 08-24-2022 Patient encounter procedure Shay Cardoza MD Work Phone: [facility] [place] Comment on above: Medicare annual well ness visit, subsequent (Primary Dx); Essential hypertension; Mixed hyperlipidemia; GERD without esophagitis; Impaired fasting glucose; Panic attacks; Malignant neoplasm of upper-outer quadrant of right breast in female, estrogen receptor positive (HCC); Malignant neoplasm of both ovaries (HCC); Carcinomatosis (HCC); Omental metastasis (HCC); Anemia, unspecified type; Chemotherapy-induced neuropathy (HCC); Thrombocytopenia (HCC); Primary insomnia; Advance directive discussed with patient Start: 08-21-2022 End: 08-21-2022 ambulatory Lab/Port Z[facility] Work Phone: Hematology/Oncology Comment on above: Malignant neoplasm o f both ovaries (HCC) (Primary Dx) Start: 08-21-2022 End: 08-21-2022 Subsequent hospital visit by physician Ct [facility] (I-Stat) Work Phone: Cat Scan Comment on above: Malignant neoplasm o f both ovaries (HCC) [C56.3] Start: 08-14-2022 Telephone encounter Shay Cardoza MD Work Phone: [facility] [place] Comment on above: Patient Question; Pa tient Update Start: 08-11-2022 End: 08-11-2022 ambulatory Injection Zain [facility] Work Phone: Hematology/Oncology Comment on above: Malignant neoplasm o f both ovaries (HCC) (Primary Dx); Omental metastasis (HCC); Carcinomatosis (HCC) Start: 08-10-2022 End: 08-10-2022 ambulatory Treatment Rm 12 Zain [facility] Work Phone: Hematology/Oncology Comment on above: Malignant neoplasm o f both ovaries (HCC) (Primary Dx); Omental metastasis (HCC); Carcinomatosis (HCC) Start: 08-05-2022 Telephone encounter Js guzman DO Work Phone: Hematology/Oncology Comment on above: Medication Problem Start: 08-04-2022 End: 08-04-2022 Patient encounter procedure Kasi Welch CERTIFIED ORTHOTIST/PEDORTHIST.REGIONAL WILDLIFE AGENT Work Phone: [facility] [place] Start: 08-04-2022 End: 08-04-2022 ambulatory Lab/Port Z[facility] Work Phone: Hematology/Oncology Comment on above: Malignant neoplasm o f both ovaries (HCC) (Primary Dx); Essential hypertension; Mixed hyperlipidemia; Impaired fasting glucose Malignant neoplasm o f both ovaries (HCC) (Primary Dx); Omental metastasis (HCC) Start: 07-28-2022 Telephone encounter Laura blevins RN Work Phone: Hematology/Oncology Comment on above: Care Coordination (T oxicity Check) Patient Question Start: 07-23-2022 Refill Js Apple Work Phone: Hematology/Oncology Comment on above: Refill Request Patient Update (Hand /finger pain); Patient Question (Symptoms) Start: 07-21-2022 End: 07-21-2022 ambulatory Injection Zain [facility] Work Phone: Hematology/Oncology Comment on above: Malignant neoplasm o f both ovaries (HCC) (Primary Dx); Omental metastasis (HCC); Carcinomatosis (HCC) Start: 07-21-2022 Telephone encounter Laura blevins RN Work Phone: Hematology/Oncology Comment on above: Care Coordination (C YCLE 1/DAY 1 POST TREATMENT CALL ) Start: 07-20-2022 End: 07-20-2022 ambulatory Treatment Rm 1 Zain [facility] Work Phone: Hematology/Oncology Comment on above: Malignant neoplasm o f both ovaries (HCC) (Primary Dx); Omental metastasis (HCC); Carcinomatosis (HCC) Start: 07-15-2022 Telephone encounter Laura blevins RN Work Phone: Hematology/Oncology Comment on above: Medication Request ( Antiemetic ) Start: 07-15-2022 End: 07-15-2022 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: Hematology/Oncology Comment on above: Encounter for educat ion (Primary Dx); Fallopian tube carcinoma, left (HCC) Start: 07-10-2022 Telephone encounter Laura blevins RN Work Phone: Hematology/Oncology Comment on above: Care Coordination (C hange in Treatment ) Start: 07-10-2022 End: 07-10-2022 ambulatory Js Cruz DO Work Phone: Hematology/Oncology Comment on above: Vitamin D deficiency (Primary Dx); Encounter for screening mammogram for malignant neoplasm of breast Start: 07-10-2022 End: 07-10-2022 Patient encounter procedure Js Cruz DO Work Phone: [facility] Start: 07-08-2022 End: 07-08-2022 ambulatory Fang Cote MD Work Phone: [facility] Gynecology Oncology Comment on above: Fallopian tube carci noma, left (HCC) (Primary Dx); BRCA2 gene mutation positive Start: 07-08-2022 End: 07-08-2022 Telemedicine consultation with patient Fang Cote MD Work Phone: [facility] Start: 07-02-2022 End: 07-02-2022 Orders Only Earl Aniceto Dao DO Work Phone: [facility] Comment on above: Fallopian tube carci noma, 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] Start: 07-01-2022 End: 07-01-2022 Orders Only Kaley Junior CERTIFIED ORTHOTIST/PEDORTHIST.REGIONAL WILDLIFE AGENT Work Phone: Gynecology Oncology Comment on above: Fallopian tube carci noma, left (HCC) (Primary Dx); Suprapubic pain, acute Need for vaccination (Primary Dx) 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 Fallopian tube carci noma, left (HCC) (Primary Dx); BRCA2 gene mutation positive; Encounter for follow-up surveillance of cancer of female genital tract organ; Thrombocytopenia (HCC); Chemotherapy-induced neuropathy (HCC) Start: 06-30-2022 Telephone encounter Corinne Santana RN Gynecology Oncology Comment on above: Returning Patient's Call Start: 06-29-2022 Telephone encounter Kaley lawrence CERTIFIED ORTHOTIST/PEDORTHIST.REGIONAL WILDLIFE AGENT Work Phone: Gynecology Oncology Comment on above: Results Start: 06-29-2022 End: 06-29-2022 Subsequent hospital visit by physician Ct Prep [facility] Cat Scan Comment on above: Fallopian tube carci noma, 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] Start: 06-26-2022 End: 06-26-2022 ambulatory Fang Cote MD Work Phone: Gynecology Oncology Comment on above: Fallopian tube carci noma, left (HCC) (Primary Dx); BRCA2 gene mutation positive; Neoplasm of fallopian tube; Abdominal pain, suprapubic Start: 06-26-2022 End: 06-26-2022 Patient encounter procedure Fang Cote MD Work Phone: [facility] Start: 06-23-2022 Telephone encounter Kaley lawrence CERTIFIED ORTHOTIST/PEDORTHIST.REGIONAL WILDLIFE AGENT Work Phone: Gynecology Oncology Comment on above: Results Start: 05-25-2022 End: 05-25-2022 ambulatory Lab/Port Zain [facility] Work Phone: Hematology/Oncology Comment on above: Malignant neoplasm o f upper-outer quadrant of right breast in female, estrogen receptor positive (HCC) (Primary Dx) Start: 04-22-2022 End: 04-22-2022 Follow-up encounter Fang Cote MD Work Phone: [facility] Gynecology Oncology Comment on above: Encounter for follow -up surveillance of cancer of female genital tract organ (Primary Dx); BRCA2 gene mutation positive; Fallopian tube carcinoma, left (HCC); Suprapubic pain, acute Start: 04-22-2022 End: 04-22-2022 Telemedicine consultation with patient Fang Cote MD Work Phone: [facility] Start: 04-21-2022 End: 04-21-2022 ambulatory Lab/Port Z[facility] Work Phone: Hematology/Oncology Comment on above: Malignant neoplasm o f upper-outer quadrant of right breast in female, estrogen receptor positive (HCC) (Primary Dx) Start: 04-21-2022 End: 04-21-2022 Subsequent hospital visit by physician Ct Prep [facility] Cat Scan Comment on above: Malignant neoplasm o f both ovaries (HCC) [C56.3] Start: 04-15-2022 End: 04-15-2022 ambulatory Mi Nurse Work Phone: [facility] [place] Comment on above: Malignant neoplasm o f both ovaries (HCC) (Primary Dx); Suprapubic pain, acute Start: 04-13-2022 Telephone encounter Shay Cardoza MD Work Phone: [facility] [place] Comment on above: Vaccine question Start: 04-13-2022 End: 04-13-2022 ambulatory Lab/Port [facility] Work Phone: Hematology/Oncology Comment on above: Suprapubic pain, acu te; Malignant neoplasm of both ovaries (HCC) Start: 04-09-2022 Telephone encounter Kaley lawrence APRN.REGIONAL WILDLIFE AGENT Work Phone: Gynecology Oncology Comment on above: Lab Orders Start: 04-09-2022 End: 04-09-2022 ambulatory Kaley Junior CERTIFIED ORTHOTIST/PEDORTHIST.REGIONAL WILDLIFE AGENT Work Phone: Gynecology Oncology Comment on above: Malignant neoplasm o f both ovaries (HCC) (Primary Dx); Urge incontinence of urine; Suprapubic pain, acute Start: 04-09-2022 End: 04-09-2022 Telemedicine consultation with patient Kaley Junior APRN.REGIONAL WILDLIFE AGENT Work Phone: [facility] Start: 04-08-2022 Telephone encounter Corinne Santana RN Gynecology Oncology Comment on above: Returning Patient's Call Start: 04-06-2022 Telephone encounter Corinne Santana nuclear control room operator Oncology Comment on above: Returning Patient's Call Sensation of pressur e in bladder area (Primary Dx); Urge incontinence of urine Start: 03-25-2022 End: 03-25-2022 Follow-up encounter Fang Cote MD Work Phone: Gynecology Oncology Comment on above: Malignant neoplasm o f both ovaries (HCC) (Primary Dx); Encounter for follow-up surveillance of cancer of female genital tract organ Start: 03-25-2022 End: 03-25-2022 Patient encounter procedure Fang Cote MD Work Phone: [facility] Start: 03-23-2022 End: 03-23-2022 ambulatory Lab/Port Zain [facility] Work Phone: Hematology/Oncology Comment on above: Malignant neoplasm o f both ovaries (HCC) Start: 02-24-2022 End: 02-24-2022 ambulatory Lab/Port Z[facility] Work Phone: Hematology/Oncology Comment on above: Malignant neoplasm o f both ovaries (HCC) (Primary Dx) Start: 01-29-2022 End: 01-29-2022 Patient encounter procedure Shay Cardoza MD Work Phone: [facility] Comment on above: Essential hypertensi on (Primary Dx); Mixed hyperlipidemia; Impaired fasting glucose; GERD without esophagitis; Panic attacks; Living will on file; Anemia, unspecified type; Malignant neoplasm of upper-outer quadrant of right breast in female, estrogen receptor positive (HCC); Carcinomatosis (HCC); Chemotherapy-induced neuropathy (HCC); Malignant neoplasm of both ovaries (HCC); Omental metastasis (HCC); Thrombocytopenia (HCC); Primary insomnia; Hot flashes Start: 01-19-2022 End: 01-19-2022 ambulatory Lab/Port Zain [facility] Work Phone: Hematology/Oncology Comment on above: Malignant neoplasm o f both ovaries (HCC) (Primary Dx); Essential hypertension; Mixed hyperlipidemia; Impaired fasting glucose Start: 12-31-2021 End: 12-31-2021 Visit (SP) Office Karishma Franz APRN.REGIONAL WILDLIFE AGENT Work Phone: Gynecology Oncology Comment on above: History of ovarian c ancer (Primary Dx); Osteopenia, unspecified location; Unspecified menopausal and perimenopausal disorder ; Encounter for screening for osteoporosis Start: 12-31-2021 End: 12-31-2021 Subsequent hospital visit by physician Mri Main A10 (Large Bore/1.5t) Work Phone: MRI A10 Comment on above: Fibrocystic change o f breast, right [N60.11] Start: 11-24-2021 End: 11-24-2021 ambulatory Lab/Port Zain [facility] Work Phone: Hematology/Oncology Comment on above: Malignant neoplasm o f both ovaries (HCC) Start: 11-10-2021 Telephone encounter Shay Cardoza MD Work Phone: [facility] Comment on above: Patient Question Start: 10-27-2021 End: 10-27-2021 ambulatory Lab/Port Zain [facility] Work Phone: Hematology/Oncology Comment on above: Malignant neoplasm o f both ovaries (HCC) (Primary Dx) Start: 10-01-2021 End: 10-01-2021 Follow-up encounter Fang Cote MD Work Phone: Gynecology Oncology Comment on above: Malignant neoplasm o f both ovaries (HCC) (Primary Dx); Vulvar itching; Encounter for follow-up surveillance of cancer of female genital tract organ Start: 10-01-2021 End: 10-01-2021 Patient encounter procedure Fang Cote MD Work Phone: [facility] Start: 09-29-2021 End: 09-29-2021 ambulatory Lab/Port Zain [facility] Work Phone: Hematology/Oncology Comment on above: Malignant neoplasm o f both ovaries (HCC) Start: 09-26-2021 Orders Only Js Cruz D O Work Phone: Hematology/Oncology Start: 07-31-2021 Patient encounter procedure Js Stephaniei DO Work Phone: [facility] Work Phone: Start: 07-23-2016 Patient encounter status Js Stephaniei DO Work Phone: [facility] Work Phone: Start: 12-13-2015 End: 07-13-2019 Patient encounter status Lab/Port Wstr Work Phone: [facility] Work Phone: Start: 04-04-2015 End: 10-06-2024 Patient encounter status Sharee Funes RN [facility] Procedures Date Procedure Procedure Detail Performing Clinician Start: 01-01-2025 Blood count complete auto&auto difrntl wbc Js Moreland Masci DO Work Phone: Start: 01-01-2025 Immunoassay tumor antigen quantitative ca 125 Js A Masci DO Work Phone: Start: 12-25-2024 Blood count complete auto&auto difrntl wbc Js Moreland Masci DO Work Phone: Start: 12-18-2024 Blood count complete auto&auto difrntl wbc Js A Masci DO Work Phone: Start: 12-14-2024 Blood count complete auto&auto difrntl wbc Js Moreland Masci DO Work Phone: Start: 12-11-2024 Blood count complete auto&auto difrntl wbc Js A Masci DO Work Phone: Start: 12-04-2024 Blood count complete auto&auto difrntl wbc Js Moreland Masci DO Work Phone: Start: 11-30-2024 Blood count complete auto&auto difrntl wbc Js Moreland Masci DO Work Phone: Start: 11-27-2024 Blood count complete auto&auto difrntl wbc Js Moreland Masci DO Work Phone: Start: 11-27-2024 Immunoassay tumor antigen quantitative ca 125 Js Moreland Masci DO Work Phone: Start: 11-23-2024 Blood count complete auto&auto difrntl wbc Js Moreland Masci DO Work Phone: Start: 11-16-2024 Blood count complete auto&auto difrntl wbc Js Moreland Masci DO Work Phone: Start: 11-06-2024 Blood count complete auto&auto difrntl wbc Js Moreland Masci DO Work Phone: Start: 11-02-2024 Blood count complete auto&auto difrntl wbc Js Moreland Masci DO Work Phone: Start: 10-27-2024 Blood count complete auto&auto difrntl wbc Js Moreland Masci DO Work Phone: Start: 10-23-2024 Dup-scan xtr veins complete bilateral study Modesto Laird CERTIFIED ORTHOTIST/PEDORTHIST.REGIONAL WILDLIFE AGENT Work Phone: Start: 10-23-2024 Comprehensive metabolic panel Js Moreland Mas ci DO Work Phone: Start: 09-29-2024 Blood count complete auto&auto difrntl wbc Js Moreland Masci DO Work Phone: Start: 09-22-2024 Blood count complete auto&auto difrntl wbc Js Moreland Masci DO Work Phone: Start: 09-22-2024 Immunoassay tumor antigen quantitative ca 125 Js Moreland Masci DO Work Phone: Start: 09-15-2024 Blood count complete auto&auto difrntl wbc Js A Masci DO Work Phone: Start: 09-08-2024 Blood count complete auto&auto difrntl wbc Js Cruz DO Work Phone: Start: 09-05-2024 Adult depression screening assessment Shay Cardoza MD Work Phone: Start: 08-30-2024 Ct abdomen & pelvis w/contrast material Js Cruz DO Work Phone: Start: 08-30-2024 Ct thorax w/contrast material Js guzman DO Work Phone: Start: 08-30-2024 Blood count complete auto&auto difrntl wbc Js Cruz DO Work Phone: Start: 08-30-2024 Lipid 1996 panel - Serum or Plasma Ct (I -Stat) Work Phone: Start: 08-10-2024 Blood count complete auto&auto difrntl wbc Js Cruz DO Work Phone: Start: 08-01-2024 Blood count complete auto&auto difrntl wbc Js Cruz DO Work Phone: Start: 07-31-2024 Colonoscopy flx dx w/collj spec when pfrmd Wu Moe MD Work Phone: Start: 07-31-2024 Esophagogastroduodenoscopy transoral diagnostic Wu Moe MD Work Phone: Start: 07-31-2024 Colonoscopy Wu Moe MD Work Phone: Start: 07-20-2024 Blood count complete auto&auto difrntl wbc Js Cruz DO Work Phone: Start: 07-04-2024 Blood count complete auto&auto difrntl wbc Js Cruz DO Work Phone: Start: 07-03-2024 Abdom paracentesis dx/ther w/imaging guidance Karishma Franz APRN.CNP Work Phone: Start: 07-03-2024 Us abdominal real time w/image limited [facility] Start: 06-30-2024 Gen seq analys lennie org/hemtolmphoid basil 51/> gen Js Moreland Masci DO Work Phone: Start: 06-28-2024 Blood count complete automated Karishma Franz APRN.[employer]IONAL [employer]ILDLIFE AGENT Work Phone: Start: 06-23-2024 Urnls dip stick/tablet rgnt auto w/o microscopy Js Moreland Masci DO Work Phone: Start: 06-23-2024 Blood count complete auto&auto difrntl wbc Js Moreland Masci DO Work Phone: Start: 06-08-2024 Urnls dip stick/tablet rgnt auto w/o microscopy [facility] Start: 06-07-2024 Blood count complete auto&auto difrntl wbc Js Moreland Masci DO Work Phone: Start: 05-25-2024 Urnls dip stick/tablet rgnt auto w/o microscopy [facility] Start: 05-25-2024 Blood count complete auto&auto difrntl wbc Js Moreland Masci DO Work Phone: Start: 05-09-2024 Blood count complete auto&auto difrntl wbc Js Moreland Masci DO Work Phone: Start: 05-03-2024 Blood count complete auto&auto difrntl wbc Js Moreland Masci DO Work Phone: Start: 04-26-2024 Blood count complete auto&auto difrntl wbc Js Moreland Masci DO Work Phone: Start: 04-26-2024 Urnls dip stick/tablet rgnt auto w/o microscopy [facility] Start: 04-20-2024 Blood count complete auto&auto difrntl wbc Js Moreland Masci DO Work Phone: Start: 04-06-2024 Blood count complete auto&auto difrntl wbc Js Moreland Masci DO Work Phone: Start: 03-30-2024 Urnls dip stick/tablet rgnt auto w/o microscopy Js Moreland Masci DO Work Phone: Start: 03-29-2024 Blood count complete auto&auto difrntl wbc Js Moreland Masci DO Work Phone: Start: 03-16-2024 Blood count complete auto&auto difrntl wbc Js Moreland Masci DO Work Phone: Start: 03-09-2024 Blood count complete auto&auto difrntl wbc Js Moreland Masci DO Work Phone: Start: 03-02-2024 Blood count complete auto&auto difrntl wbc Js Moreland Masci DO Work Phone: Start: 02-29-2024 Urnls dip stick/tablet rgnt auto w/o microscopy Js Moreland Masci DO Work Phone: Start: 02-29-2024 Blood count complete auto&auto difrntl wbc Js Moreland Masci DO Work Phone: Start: 02-29-2024 Immunoassay tumor antigen quantitative ca 125 Js Moreland Masci DO Work Phone: Start: 02-16-2024 Blood count complete auto&auto difrntl wbc Js Moreland Masci DO Work Phone: Start: 02-10-2024 Blood count complete auto&auto difrntl wbc Js Moreland Masci DO Work Phone: Start: 02-04-2024 Blood count complete auto&auto difrntl wbc Js Moreland Masci DO Work Phone: Start: 02-04-2024 Urnls dip stick/tablet rgnt auto w/o microscopy [facility] Start: 01-24-2024 Blood count complete auto&auto difrntl wbc Js Moreland Masci DO Work Phone: Start: 01-17-2024 Blood count complete auto&auto difrntl wbc Js Moerland Masci DO Work Phone: Start: 12-27-2023 Blood count complete auto&auto difrntl wbc Js Moreland Masci DO Work Phone: Start: 12-21-2023 Ct thorax w/o contrast material Js Khoury asci DO Work Phone: Start: 12-06-2023 Blood count complete auto&auto difrntl wbc Js Moreland Masci DO Work Phone: Start: 12-06-2023 Immunoassay tumor antigen quantitative ca 125 Js Moreland Masci DO Work Phone: Start: 11-17-2023 Blood count complete auto&auto difrntl wbc Js Moreland Masci DO Work Phone: Start: 11-12-2023 Blood count complete auto&auto difrntl wbc Js Moreland Masci DO Work Phone: Start: 10-26-2023 Blood count complete auto&auto difrntl wbc Js Moreland Masci DO Work Phone: Start: 10-20-2023 Blood count complete auto&auto difrntl wbc Js Moreland Masci DO Work Phone: Start: 09-23-2023 Blood count complete auto&auto difrntl wbc Js Moreland Masci DO Work Phone: Start: 09-23-2023 Immunoassay tumor antigen quantitative ca 125 Js Moreland Masci DO Work Phone: Start: 09-01-2023 Antihuman globulin direct each antiserum Js Moreland Masci DO Work Phone: Start: 09-01-2023 Assay of ferritin Js Moreland Masci DO Work Phone: Start: 09-01-2023 PATHOLOGIST INTERPRETATION WITH CBC AND DIFF Js Moreland Masci DO Work Phone: Start: 08-26-2023 Blood count complete auto&auto difrntl wbc Js Moreland Masci DO Work Phone: Start: 08-26-2023 Immunoassay tumor antigen quantitative ca 125 Js Moreland Masci DO Work Phone: Start: 08-26-2023 Urnls dip stick/tablet reagent auto microscopy Shay Cardoza MD Work Phone: Start: 08-26-2023 Lipid 1996 panel - Serum or Plasma Lab/P ort Wstr Work Phone: Start: 07-30-2023 Blood count complete auto&auto difrntl wbc Js Moreland Masci DO Work Phone: Start: 07-07-2023 Colonoscopy Fang Cote MD Work Phone: Start: 06-01-2023 Plain X-ray abdomen Dr. Shay Cardoza Work Phone: Start: 06-01-2023 Computed tomography of abdomen and pelvis with intravenous contrast Dr. Shay Cardoza Work Phone: Start: 05-19-2023 PFIZER-BIONTECH COVID-19 VACCINE (2022- SEASON) AGE 12+ YR Cyrus Nance DO Work Phone: Start: 05-11-2023 Echo tthrc r-t 2d w/wom-mode compl spec&colr d Js Moreland Masci DO Work Phone: Start: 05-10-2023 Blood count complete auto&auto difrntl wbc Js Moreland Masci DO Work Phone: Start: 05-07-2023 Blood count complete auto&auto difrntl wbc Js Moreland Masci DO Work Phone: Start: 04-09-2023 Blood count complete auto&auto difrntl wbc Js Moreland Masci DO Work Phone: Start: 03-12-2023 Blood count complete auto&auto difrntl wbc Js Moreland Masci DO Work Phone: Start: 03-04-2023 Ct abdomen & pelvis w/contrast material [place] Welch CERTIFIED ORTHOTIST/PEDORTHIST.REGIONAL WILDLIFE AGENT Work Phone: Start: 03-04-2023 Ct thorax w/contrast material Kasi Carp john CERTIFIED ORTHOTIST/PEDORTHIST.REGIONAL WILDLIFE AGENT Work Phone: Start: 03-04-2023 Comprehensive metabolic panel Shay Cardoza MD Work Phone: Start: 03-04-2023 Lipid 1996 panel - Serum or Plasma Franky Cardoza MD Work Phone: Start: 02-12-2023 Blood count complete auto&auto difrntl wbc Js Moreland Masci DO Work Phone: Start: 01-14-2023 Blood count complete auto&auto difrntl wbc Js Moreland Masci DO Work Phone: Start: 11-23-2022 Ct abdomen & pelvis w/contrast material Js Moreland Masci DO Work Phone: Start: 11-23-2022 Ct thorax w/contrast material Js Cervantes ci DO Work Phone: Start: 11-23-2022 Blood count complete auto&auto difrntl wbc Js Moreland Masci DO Work Phone: Start: 11-23-2022 Immunoassay tumor antigen quantitative ca 125 Js Moreland Masci DO Work Phone: Start: 11-17-2022 Blood count complete auto&auto difrntl wbc Shay Cardoza MD Work Phone: Start: 10-30-2022 Blood count complete auto&auto difrntl wbc Js Moreland Masci DO Work Phone: Start: 10-30-2022 Comprehensive metabolic panel Js Cervantes ci DO Work Phone: Start: 10-09-2022 Blood count complete auto&auto difrntl wbc Js Moreland Masci DO Work Phone: Start: 10-01-2022 Ct abdomen & pelvis w/contrast material Js Moreland Masci DO Work Phone: Start: 10-01-2022 Ct thorax w/contrast material Js Cervantes ci DO Work Phone: Start: 09-18-2022 End: 09-18-2022 Radiologic examination knee 1/2 views Js Moreland Masci DO Work Phone: Start: 08-28-2022 Blood count complete auto&auto difrntl wbc Js Moreland Masci DO Work Phone: Start: 08-28-2022 YAYO SCREENING W SERAFIN Js Moreland Masci DO Work Phone: Start: 08-28-2022 Mammography Lab/Port Wstr Work Phone: Start: 08-21-2022 Ct abdomen & pelvis w/contrast material Kasi Welch CERTIFIED ORTHOTIST/PEDORTHIST.REGION[employer] WILDLIFE AGENT Work Phone: Start: 08-04-2022 Blood count complete auto&auto difrntl wbc Js Cruz DO Work Phone: Start: 08-04-2022 Lipid 1996 panel - Serum or Plasma Js Cruz DO Work Phone: Start: 07-20-2022 Blood count complete auto&auto difrntl wbc Js Cruz DO Work Phone: Start: 07-20-2022 Immunoassay tumor antigen quantitative ca 125 Js Cruz DO Work Phone: Start: 07-01-2022 PFIZER-BIONTTink COVID-19 BIVALENT BOOSTER VACCINE, AGE 12+ YR Shay Cardoza MD Work Phone: Start: 06-29-2022 Ct abdomen & pelvis w/contrast material Opal Hair MD Work Phone: Start: 06-29-2022 Ct thorax w/contrast material Opal osullivan MD Work Phone: Start: 04-21-2022 Ct abdomen & pelvis w/contrast material Kaley Lambrinides CERTIFIED ORTHOTIST/PEDORTHIST.REGIONAL WILDLIFE AGENT Work Phone: Start: 04-15-2022 INFLUENZA SEASONAL QUADRIVALENT HIGH DOSE AGE 65+ Bianca Duncan PA-C Work Phone: Start: 04-13-2022 Blood count complete auto&auto difrntl wbc Kaley Lambrinides CERTIFIED ORTHOTIST/PEDORTHIST.REGIONAL WILDLIFE AGENT Work Phone: Start: 03-23-2022 Blood count complete auto&auto difrntl wbc Sakina Juarez CERTIFIED ORTHOTIST/PEDORTHIST.REGIONAL WILDLIFE AGENT Work Phone: Start: 02-24-2022 Blood count complete auto&auto difrntl wbc Sakina Juarez CERTIFIED ORTHOTIST/PEDORTHIST.REGIONAL WILDLIFE AGENT Work Phone: Start: 01-19-2022 Blood count complete auto&auto difrntl wbc Karishma Franz CERTIFIED ORTHOTIST/PEDORTHIST.REGIONAL WILDLIFE AGENT Work Phone: Start: 12-31-2021 Mri breast without&with contrast w/cad bilateral Jose Costello PA-C Work Phone: Start: 11-24-2021 Blood count complete auto&auto difrntl wbc Sakina Khoury Larry CERTIFIED ORTHOTIST/PEDORTHIST.REGIONAL WILDLIFE AGENT Work Phone: Start: 10-27-2021 Blood count complete auto&auto difrntl wbc Sakina Khoury Larry CERTIFIED ORTHOTIST/PEDORTHIST.REGIONAL WILDLIFE AGENT Work Phone: Start: 09-29-2021 Blood count complete auto&auto difrntl wbc Sakina Khoury Larry CERTIFIED ORTHOTIST/PEDORTHIST.REGIONAL WILDLIFE AGENT Work Phone: Start: 07-04-2021 Mammography Js Brownriana TERAN Work Phone: Start: 05-01-2016 Colonoscopy Js Cruz Work Phone: Plan of Treatment Date Care Activity Detail Author Start: 07-31-2034 Screening for malignant neoplasm of colon [facility] Start: 07-07-2033 Screening for malignant neoplasm of colon [facility] Start: 08-30-2029 Lipid panel Lipid Screening [facility] Start: 08-25-2028 Lipid panel Lipid Screening [facility] Start: 03-04-2028 Lipid 1996 panel - Serum or Plasma Lipid Screening [facility] Start: 03-04-2028 Lipid panel Lipid Screening [facility] Start: 11-17-2027 Diabetes Screening Diabetes Screening [facility] Start: 10-28-2027 Diabetes Screening Diabetes Screening [facility] Start: 10-24-2027 Diabetes Screening Diabetes Screening [facility] Start: 10-15-2027 Diabetes Screening Diabetes Screening [facility] Start: 10-12-2027 Diabetes Screening Diabetes Screening [facility] Start: 10-07-2027 Diabetes Screening Diabetes Screening [facility] Start: 09-30-2027 Diabetes Screening Diabetes Screening [facility] Start: 09-23-2027 Diabetes Screening Diabetes Screening [facility] Start: 09-16-2027 Diabetes Screening Diabetes Screening [facility] Start: 09-09-2027 Diabetes Screening Diabetes Screening [facility] Start: 08-31-2027 Diabetes Screening Diabetes Screening [facility] Start: 08-14-2027 Diabetes Screening Diabetes Screening [facility] Start: 08-04-2027 Lipid 1996 panel - Serum or Plasma Lipid Screening [facility] Start: 08-04-2027 LIPID SCREEN LIPID SCREEN [facility] Start: 08-01-2027 Diabetes Screening Diabetes Screening [facility] Start: 07-07-2027 Diabetes Screening Diabetes Screening [facility] Start: 07-04-2027 Diabetes Screening Diabetes Screening [facility] Start: 06-07-2027 Diabetes Screening Diabetes Screening [facility] Start: 05-09-2027 Diabetes Screening Diabetes Screening [facility] Start: 04-26-2027 Diabetes Screening Diabetes Screening [facility] Start: 04-20-2027 Diabetes Screening Diabetes Screening [facility] Start: 03-29-2027 Diabetes Screening Diabetes Screening [facility] Start: 02-28-2027 Diabetes Screening Diabetes Screening [facility] Start: 02-03-2027 Diabetes Screening Diabetes Screening [facility] Start: 01-23-2027 Diabetes Screening Diabetes Screening [facility] Start: 01-19-2027 LIPID SCREEN LIPID SCREEN [facility] Start: 01-16-2027 Diabetes Screening Diabetes Screening [facility] Start: 12-26-2026 Diabetes Screening Diabetes Screening [facility] Start: 12-05-2026 Diabetes Screening Diabetes Screening [facility] Start: 11-16-2026 Diabetes Screening Diabetes Screening [facility] Start: 11-11-2026 Diabetes Screening Diabetes Screening [facility] Start: 10-19-2026 Diabetes Screening Diabetes Screening [facility] Start: 09-22-2026 Diabetes Screening Diabetes Screening [facility] Start: 08-25-2026 Diabetes Screening Diabetes Screening [facility] Start: 07-30-2026 Diabetes Screening Diabetes Screening [facility] Start: 07-19-2026 Diabetes Screening Diabetes Screening [facility] Start: 07-07-2026 LIPID SCREEN LIPID SCREEN [facility] Start: 07-02-2026 Diabetes Screening Diabetes Screening [facility] Start: 06-03-2026 Diabetes Screening Diabetes Screening [facility] Start: 05-07-2026 Diabetes Screening Diabetes Screening [facility] Start: 05-01-2026 Colonoscopy COLONOSCOPY [facility] Start: 05-01-2026 COLORECTAL CANCER SCREENING COLORECTAL CANCER SCREENING [facility] Start: 05-01-2026 Screening for malignant neoplasm of colon [facility] Start: 04-09-2026 Diabetes Screening Diabetes Screening [facility] Start: 03-12-2026 Diabetes Screening Diabetes Screening [facility] Start: 03-04-2026 Diabetes Screening Diabetes Screening [facility] Start: 02-12-2026 DIABETES SCREEN DIABETES SCREEN [facility] Start: 02-12-2026 Diabetes Screening Diabetes Screening [facility] Start: 01-14-2026 DIABETES SCREEN DIABETES SCREEN [facility] Start: 12-07-2025 DIABETES SCREEN DIABETES SCREEN [facility] Start: 11-23-2025 BP Controlled (<130/80) BP Controlled (<130/80) [facility] Start: 11-23-2025 DIABETES SCREEN DIABETES SCREEN [facility] Start: 10-30-2025 DIABETES SCREEN DIABETES SCREEN [facility] Start: 10-27-2025 BP Controlled (<130/80) BP Controlled (<130/80) [facility] Start: 10-09-2025 DIABETES SCREEN DIABETES SCREEN [facility] Start: 09-18-2025 DIABETES SCREEN DIABETES SCREEN [facility] Start: 09-08-2025 BP Controlled (<130/80) BP Controlled (<130/80) [facility] Start: 09-06-2025 Covid-19 Vaccine () Covid-19 Vaccine () [facility] Comment on above: Postponed from 02/20/2024 (Declined at t his time) Start: 09-05-2025 Annual PCP Team Chronic Disease Visit Annual PCP Team Chronic Disease Visit [facility] Start: 09-05-2025 BP Controlled (<130/80) BP Controlled (<130/80) [facility] in Start: 09-05-2025 Depression Screening Depression Screening [facility] Start: 09-05-2025 Medicare Annual Wellness Visit Medicare Annual Wellness Visit [facility] Start: 08-28-2025 DIABETES SCREEN DIABETES SCREEN [facility] Start: 08-04-2025 DIABETES SCREEN DIABETES SCREEN [facility] Start: 08-01-2025 BP Controlled (<130/80) BP Controlled (<130/80) [facility] Start: 07-20-2025 DIABETES SCREEN DIABETES SCREEN [facility] Start: 07-04-2025 BP Controlled (<130/80) BP Controlled (<130/80) [facility] Start: 05-09-2025 BP Controlled (<130/80) BP Controlled (<130/80) [facility] in Start: 04-13-2025 DIABETES SCREEN DIABETES SCREEN [facility] Start: 2025 End: 2025 Patient encounter procedure 2025 7:20 AM EDT Office Visit Family Kyle Levy [address] [place] [address] Shay Cardoza MD [address] [facility] [place] [address] 6 month follow up [facility] Kyle Levy Comment on above: 6 month follow up Start: 03-01-2025 Annual PCP Team Chronic Disease Visit Annual PCP Team Chronic Disease Visit [facility] Start: 01-27-2025 BP Controlled (<130/80) BP Controlled (<130/80) [facility] Start: 01-19-2025 DIABETES SCREEN DIABETES SCREEN [facility] Start: 01-16-2025 BP Controlled (<130/80) BP Controlled (<130/80) [facility] in Start: 01-16-2025 End: 01-16-2025 ambulatory Hematology/Oncology Comment on above: QMO(SO)CA 125(PORT)* OV/EARLY LABS Start: 01-11-2025 End: 01-11-2025 ambulatory 01/11/2025 10:00 AM [facility] Infusion Center Hematology/Oncology [address] [place] [address] Wstr, Lab/Port [facility] [address] [place] [address] QMON/THUR(SO)CBC(?TX)(POR T)*THUR APT Hematology/Oncology Comment on above: QMON/THUR(SO)CBC(?TX)(PORT)*THUR APT Start: 01-08-2025 End: 01-08-2025 ambulatory 01/08/2025 10:15 AM T Infusion Center Hematology/Oncology [address] [place] [address] Wstr, Lab/Port [facility] [address] [place] [address] QMON/THUR(SO)CBC(?TX)(POR T)*THUR APT Hematology/Oncology Comment on above: QMON/THUR(SO)CBC(?TX)(PORT)*THUR APT Start: 01-04-2025 End: 01-04-2025 ambulatory 01/04/2025 10:15 AM EDT Infusion Center Hematology/Oncology [address] [place] [address] Wstr, Lab/Port [facility] [address] [place] [address] QMON/THUR(SO)CBC(?TX)(POR T)*THUR APT Hematology/Oncology Comment on above: QMON/THUR(SO)CBC(?TX)(PORT)*THUR APT Start: 01-03-2025 End: 01-03-2025 ambulatory 01/03/2025 10:30 AM EDT Infusion Center Hematology/Oncology [address] [place] [address] Wstr, Lab/Port [facility] [address] [place] [address] PORT ACCESS FOR IMAGING Hematology/Oncology Comment on above: PORT ACCESS FOR IMAGING Start: 01-03-2025 End: 01-03-2025 Patient encounter procedure Cat Scan Comment on above: 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] Start: 01-01-2025 End: 01-01-2025 ambulatory 01/01/2025 10:00 AM EDT Infusion Center Hematology/Oncology [address] [place] [address] Wstr, Lab/Port [facility] [address] [place] [address] QMON/THUR(SO)CBC(?TX)(POR T)*THUR APT Hematology/Oncology Comment on above: QMON/THUR(SO)CBC(?TX)(PORT)*THUR APT Start: 12-28-2024 End: 12-28-2024 ambulatory 12/28/2024 10:45 AM EDT Infusion Center Hematology/Oncology [address] [place] [address] Wstr, Lab/Port [facility] [address] [place] [address] QMON/THUR(SO)CBC(?TX)(POR T)*THUR APT Hematology/Oncology Comment on above: QMON/THUR(SO)CBC(?TX)(PORT)*THUR APT Start: 12-26-2024 BP Controlled (<130/80) BP Controlled (<130/80) [facility] Start: 12-25-2024 End: 12-25-2024 ambulatory 12/25/2024 10:00 AM EDT Infusion Center Hematology/Oncology [address] [place] [address] Wstr, Lab/Port [facility] [address] [place] [address] QMON/THUR(SO)CBC(?TX)(POR T)*THUR APT Hematology/Oncology Comment on above: QMON/THUR(SO)CBC(?TX)(PORT)*THUR APT Start: 12-21-2024 End: 12-21-2024 ambulatory Hematology/Oncology Comment on above: QWK CBC(?TX)(PORT)* THUR APPT (SO)CBC(?TX)(PORT)* THUR APPT QMON/THUR(SO)CBC(?TX )(PORT)*THUR APT Start: 12-18-2024 End: 12-18-2024 ambulatory 12/18/2024 10:30 AM EDT Infusion Center Hematology/Oncology [address] [place] [address] Wstr, Lab/Port [facility] [address] [place] [address] QMON/THUR(SO)CBC(?TX)(POR T)*THUR APT Hematology/Oncology Comment on above: QMON/THUR(SO)CBC(?TX)(PORT)*THUR APT Start: 12-14-2024 End: 12-14-2024 ambulatory Hematology/Oncology Comment on above: QWK CBC(?TX)(PORT)* THUR APPT (SO)CBC(?TX)(PORT)* THUR APPT QMON/THUR(SO)CBC(?TX )(PORT)*THUR APT Start: 12-11-2024 End: 12-11-2024 ambulatory 12/11/2024 10:15 AM EDT Infusion Center Hematology/Oncology [address] [place] [address] Wstr, Lab/Port [facility] [address] [place] [address] QMON/THUR(SO)CBC(?TX)(POR T)*THUR APT Hematology/Oncology Comment on above: QMON/THUR(SO)CBC(?TX)(PORT)*THUR APT Start: 12-07-2024 End: 12-07-2024 ambulatory Hematology/Oncology Comment on above: QWK CBC(?TX)(PORT)* THUR APPT (SO)CBC(?TX)(PORT)* THUR APPT QMON/THUR(SO)CBC(?TX )(PORT)*THUR APT Start: 12-07-2024 End: 12-07-2024 ambulatory 12/07/2024 8:30 AM EDT Infusion Center Hematology/Oncology [address] [place] [address] (SO)CBC(PORT)/D15 GEMZAR/AUTH EXP ?* Hematology/Oncology Comment on above: (SO)CBC(PORT)/D15 GEMZAR/AUTH EXP ?* Start: 12-05-2024 BP Controlled (<130/80) BP Controlled (<130/80) [facility] Start: 12-04-2024 End: 12-04-2024 ambulatory 12/04/2024 10:15 AM EDT Infusion Center Hematology/Oncology [address] [place] [address] Wstr, Lab/Port [facility] [address] [place] [address] QMON/THUR(SO)CBC(?TX)(POR T)*THUR APT Hematology/Oncology Comment on above: QMON/THUR(SO)CBC(?TX)(PORT)*THUR APT Start: 11-30-2024 End: 11-30-2024 ambulatory Hematology/Oncology Comment on above: QWK CBC(?TX)(PORT)* THUR APPT (SO)CBC(?TX)(PORT)* THUR APPT QMON/THUR(SO)CBC(?TX )(PORT)*THUR APT Start: 11-30-2024 End: 11-30-2024 ambulatory 11/30/2024 8:30 AM EDT Infusion Center Hematology/Oncology [address] [place] [address] (SO)CBC(PORT)/D8 GEMZAR/AUTH EXP ?* Hematology/Oncology Comment on above: (SO)CBC(PORT)/D8 GEMZAR/AUTH EXP ?* Start: 11-28-2024 Administration of blood product [facility] Start: 11-28-2024 [facility] Start: 11-27-2024 End: 11-27-2024 ambulatory 11/27/2024 10:15 AM EDT Infusion Center Hematology/Oncology [address] [place] [address] Wstr, Lab/Port [facility] [address] [place] [address] QMON/THUR(SO)CBC(?TX)(POR T)*THUR APT Hematology/Oncology Comment on above: QMON/THUR(SO)CBC(?TX)(PORT)*THUR APT Start: 11-27-2024 Leukocyte reduced red blood cells [facility] Start: 11-27-2024 [facility] Start: 11-23-2024 End: 11-23-2024 ambulatory Hematology/Oncology Comment on above: QMO GEMZAR-D1(PORT)LAB&OV 11/22/AUTH EXP ? * QWK CBC(?TX)(PORT)* THUR APPT OV(PORT)/LABS 11/16* (SO)CBC(?TX)(PORT)* THUR APPT Start: 11-22-2024 End: 11-22-2024 ambulatory Hematology/Oncology Comment on above: (SO)CBC/CMP(S)/CA125(PORT)/OV TODAY* OV(PORT) LAB TODAY/C HEMO 6/* [facility] Start: 11-16-2024 End: 11-16-2024 ambulatory Hematology/Oncology Comment on above: QWK CBC(?TX)CMP/CA 125(PORT)* THUR APPT (SO)CBC(?TX)/CMP(S)/ CA 125(PORT)* THUR APPT Start: 11-14-2024 End: 11-14-2024 ambulatory 11/14/2024 10:00 AM EDT Infusion Center Hematology/Oncology [address] [place], [place] [id number] 2ND Hematology/Oncology Comment on above: 2ND Start: 11-11-2024 BP Controlled (<130/80) BP Controlled (<130/80) [facility] Start: 11-09-2024 End: 11-09-2024 ambulatory Hematology/Oncology Comment on above: (SO)CBC(PORT)/D15 GEMZAR/AUTH EXP ?* 2ND Start: 11-08-2024 End: 11-08-2024 ambulatory 11/08/2024 10:30 AM EDT [facility] Gynecology Oncology [address] [place], [place] [id number] Fang Cote MD [address] [place] [address] call patient/discuss plan [facility] Comment on above: call patient/discuss plan Start: 11-07-2024 End: 11-07-2024 ambulatory 11/07/2024 10:00 AM EDT Infusion Center Hematology/Oncology [address] [place], [place] [id number] 2ND Hematology/Oncology Comment on above: 2ND Start: 11-07-2024 End: 11-07-2024 Abdom paracentesis dx/ther w/imaging guidance ABDOMINAL PARACENTESIS W/ IMAGING GUIDANCE 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) 11/07/2024 9:00 AM EDT [facility] Start: 11-07-2024 End: 11-07-2024 Admission to same day surgery center 11/07/2024 9:00 AM EDT - 11/07/2024 10:00 AM EDT [facility] Radiology [address] [place] [address] Karen Vicente, HECTOR.REGIONAL WILDLIFE AGENT [address] [place], [place] [phone] ABDOMINAL PARACENTESIS W/ IMAGING GUIDANCE [facility] Comment on above: ABDOMINAL PARACENTESIS W/ IMAGING GUIDAN CE Start: 11-07-2024 Subsequent hospital visit by physician 11/07/2024 9:00 AM EDT Hospital Encounter [facility] [address] [place] [address] Karen Vicente, CERTIFIED ORTHOTIST/PEDORTHIST.REGIONAL WILDLIFE AGENT [address] [address], [place] [phone] 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], 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 [address] Wstr, Lab/Port [facility] [address] [place] [address] (SO)CBC(?TX)(PORT)* Hematology/Oncology Comment on above: (SO)CBC(?TX)(PORT)* Start: 11-03-2024 Administration of blood product [facility] Start: 11-03-2024 [facility] Start: 11-02-2024 End: 11-02-2024 ambulatory 11/02/2024 10:30 AM EDT Infusion Center Hematology/Oncology [address] [place] [address] Wstr, Lab/Port [facility] [address] [place] [address] CBC(?TX)PORT Hematology/Oncology Comment on above: CBC(?TX)PORT Start: 11-02-2024 End: 11-02-2024 ambulatory Hematology/Oncology Comment on above: (SO)CBC(PORT)/D8 GEMZAR/AUTH EXP ?* 2ND Start: 10-31-2024 End: 10-31-2024 ambulatory 10/31/2024 10:00 AM [facility] Infusion Center Hematology/Oncology [address] [place] [address] 2ND Hematology/Oncology Comment on above: 2ND Start: 10-27-2024 End: 01-26-2025 Comprehensive metabolic 2000 panel - Serum or Plasma COMPREHENSIVE METABOLIC PANEL Lab STAT 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 Comment on above: Expected: 10/27/2024, Expires: Start: 10-27-2024 End: 10-27-2024 ambulatory Hematology/Oncology Comment on above: CBC/CMP/Mg/CA125(PORT) OV/EARLY LABS(PORT) CBC/CMP(S)/Mg(S)/CA1 25(PORT) Start: 10-26-2024 End: 10-26-2024 ambulatory 10/26/2024 8:30 AM T Infusion Center Hematology/Oncology [address] [place] [address] QMO GEMZAR-D1(PORT)LAB&OV 10/25/AUTH EXP 11/01/24* Hematology/Oncology Comment on above: QMO GEMZAR-D1(PORT)LAB&OV 10/25/AUTH EXP * Start: 10-25-2024 End: 10-25-2024 ambulatory Hematology/Oncology Comment on above: (SO)CBC/CMP(S)/CA125(PORT)/OV TODAY* OV(PORT) LAB TODAY/C HEMO 10/26* MASCI Start: 10-23-2024 End: 10-23-2024 Patient encounter procedure 10/23/2024 11:30 AM EDT Appointment Radiology [address] [place] [address] Bilateral lower extremity edema [R60.0] Radiology Comment on above: Bilateral lower extremity edema [R60.0] Start: 10-19-2024 BP Controlled (<130/80) BP Controlled (<130/80) [facility] Start: 10-12-2024 End: 10-12-2024 ambulatory Hematology/Oncology Comment on above: (SO)CBC/D15 AVASTIN/HYCAMTIN(PORT)/MDCR* (SO)CBC(PORT)/D15 GE MZAR/AUTH EXP 11/01/24* Start: 10-10-2024 End: 10-10-2024 ambulatory 10/10/2024 9:50 AM EDT Visit (SP) Office Hematology/Oncology [address] [place] [address] Js Cruz DO [address] [place] [address] 1MO OV(PORT)/EARLY LABS* Hematology/Oncology Comment on above: 1MO OV(PORT)/EARLY LABS* Start: 10-10-2024 End: 10-10-2024 ambulatory 10/10/2024 8:45 AM EDT Infusion Center Hematology/Oncology [address] [place] [address] Wstr, Lab/Port [place] [address] [place] [address] (SO)CBC/CMP(S)/SOLUBLE TRANSFERRIN/CA 125(PORT)* Hematology/Oncology Comment on above: (SO)CBC/CMP(S)/SOLUBLE TRANSFERRIN/CA 12 5(PORT)* Start: 10-05-2024 End: 10-05-2024 ambulatory Hematology/Oncology Comment on above: (SO)CBC/CMP(S)CA 125(PORT)* 1MO OV/EARLY LABS* (SO)CBC/CMP(S)/SOLUB LE TRANSFERRIN/CA 125(PORT)* Start: 10-05-2024 End: 10-05-2024 ambulatory 10/05/2024 8:30 AM EDT Infusion Center Hematology/Oncology [address] [place], [place] [address] (SO)CBC(PORT)/D8 GEMZAR/AUTH EXP 11/01/24* Hematology/Oncology Comment on above: (SO)CBC(PORT)/D8 GEMZAR/AUTH EXP 11/01/24 * Start: 10-04-2024 End: 10-04-2024 Abdom paracentesis dx/ther w/imaging guidance ABDOMINAL PARACENTESIS W/ IMAGING GUIDANCE 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) 10/04/2024 9:00 AM EDT [facility] Start: 10-04-2024 End: 10-04-2024 Admission to same day surgery center 10/04/2024 9:00 AM EDT - 10/04/2024 10:00 AM EDT [facility] [address] [place] [address] Karen Vicente, CERTIFIED ORTHOTIST/PEDORTHIST.REGIONAL WILDLIFE AGENT [address], [place] [phone] ABDOMINAL PARACENTESIS W/ IMAGING GUIDANCE [facility] Comment on above: ABDOMINAL PARACENTESIS W/ IMAGING GUIDAN CE Start: 10-04-2024 Subsequent hospital visit by physician 10/04/2024 9:00 AM EDT Hospital Encounter [facility] [address] [place] [address] Karen Vicente, CERTIFIED ORTHOTIST/PEDORTHIST.REGIONAL WILDLIFE AGENT [address] [address], [place] [phone] 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] [facility] Comment on above: 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] Start: 09-29-2024 End: 12-29-2024 Transferrin receptor.soluble [Mass/volume] in Serum or Plasma SOLUBLE TRANS RECEPTOR Lab Routine Iron deficiency anemia due to chronic blood loss Expected: 09/29/2024, Expires: 12/29/2024 [facility] Work Phone: Comment on above: Expected: 09/29/2024, Expires: Start: 09-29-2024 End: 09-29-2024 ambulatory 09/29/2024 10:30 AM EDT Infusion Center Hematology/Oncology [address] [place], [place] [phone] Wstr, Lab/Port [place] [address] [place], [place] [phone] (SO)CBC/CMP(S)(PORT)* Hematology/Oncology Comment on above: (SO)CBC/CMP(S)(PORT)* Start: 09-28-2024 End: 09-28-2024 ambulatory Hematology/Oncology Comment on above: QMO AVASTIN/HYCAMTIN(PORT)/LAB & OV 09/26/ MDCR* QMO GEMZAR-D1(PORT)L AB&OV 09/27/AUTH EXP 11/01/24* Start: 09-27-2024 End: 09-27-2024 ambulatory Hematology/Oncology Comment on above: (SO)CBC/CMP(S)/CA125(PORT)/OV TODAY* OV(PORT) LAB TODAY/C HEMO 09/28* MASCI Start: 09-26-2024 BP Controlled (<130/80) BP Controlled (<130/80) [facility] Start: 09-26-2024 End: 09-26-2024 ambulatory Hematology/Oncology Comment on above: (SO)CBC/CMP(S)/CA125(PORT)/OV TODAY* OV(PORT)/LABS EARLY/ CHEMO 09/28* MASCI Start: 09-22-2024 End: 09-22-2024 ambulatory 09/22/2024 10:30 AM EDT Infusion Center Hematology/Oncology [address] [place] [address] Wstr, Lab/Port [facility] [address] [place] [address] (SO)CBC/CMP(S)(PORT)* Hematology/Oncology Comment on above: (SO)CBC/CMP(S)(PORT)* Start: 09-20-2024 End: 09-20-2024 Abdom paracentesis dx/ther w/imaging guidance ABDOMINAL PARACENTESIS W/ IMAGING GUIDANCE 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 Start: 09-20-2024 End: 09-20-2024 Admission to same day surgery center 09/20/2024 9:00 AM EDT - 09/20/2024 10:00 AM EDT [facility] [address] [place] [address] Karen Vicente, CERTIFIED ORTHOTIST/PEDORTHIST.REGIONAL WILDLIFE AGENT [address] [address], [place] [phone] ABDOMINAL PARACENTESIS W/ IMAGING GUIDANCE [facility] Comment on above: ABDOMINAL PARACENTESIS W/ IMAGING KIRSTENAN CARYL Start: 09-20-2024 Subsequent hospital visit by physician 09/20/2024 9:00 AM EDT Hospital Encounter [facility] [address] [place] [address] Karen Vicente, CERTIFIED ORTHOTIST/PEDORTHIST.REGIONAL WILDLIFE AGENT [address] [address], [place] [phone] 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], 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] [facility] Comment on above: 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], 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] Start: 09-15-2024 End: 09-15-2024 ambulatory Hematology/Oncology Comment on above: (SO)CBC/CMP(S)(PORT)* (SO)CBC/CMP(S)/SOLUB LE TRANS RECEPTOR(PORT)* Start: 09-14-2024 End: 09-14-2024 ambulatory Hematology/Oncology Comment on above: (SO)CBC/D15 AVASTIN/HYCAMTIN(PORT)/MDCR* CBC(PORT) Q28 DAY15 GEMCITABINE/AUTH EXP 11/01/24* CBC(PORT)D15 GEMZAR/ AUTH EXP 11/01/24* (SO)CBC(PORT)/D15 GE MZAR/AUTH EXP 11/01/24* Start: 09-13-2024 End: 09-13-2024 Follow-up encounter 09/13/2024 10:30 AM EDT Visit (SP) Office Gynecology Oncology [address] [place], [place] [phone] Fang Cote MD [address] [place], [place] [phone] Follow up visit Gynecology Oncology Comment on above: Follow up visit Start: 09-09-2024 End: 12-09-2024 Transferrin receptor.soluble [Mass/volume] in Serum or Plasma SOLUBLE TRANS RECEPTOR Lab Routine Microcytic anemia Expected: 09/09/2024, Expires: 12/09/2024 [facility] Work Phone: Comment on above: Expected: 09/09/2024, Expires: Start: 09-08-2024 End: 12-08-2024 Ferritin [Mass/volume] in Serum or Plasma [facility] Work Phone: Comment on above: Expected: 09/08/2024, Expires: Start: 09-08-2024 End: 12-08-2024 Iron and Iron binding capacity panel - Serum or Plasma [facility] Comment on above: Expected: 09/08/2024, Expires: Start: 09-08-2024 End: 09-08-2024 ambulatory Hematology/Oncology Comment on above: OV-CT scan & lab 08/30* OV(PORT)LAB EARLY/CT 08/30* Start: 09-08-2024 End: 09-08-2024 ambulatory Hematology/Oncology Comment on above: CBC(PORT)Q28 DAY8 GEMCITABINE (PORT) /AU TH EXP 11/01/24* CBC(PORT)D8 GEMZAR/A UTH EXP 11/01/24* (SO)CBC(PORT)/D8 GEM LAYNE/AUTH EXP 11/01/24* CBC/CMP(PORT)OV TODA Y* (SO)CBC/CMP(S)(PORT) OV TODAY* Start: 09-07-2024 BP Controlled (<130/80) BP Controlled (<130/80) [facility] Start: 09-07-2024 End: 09-07-2024 ambulatory 09/07/2024 8:00 AM EDT [facility] Hematology/Oncology [address], [place] [phone] (SO)CBC(PORT)/D8 GEMZAR/AUTH EXP 11/01/24* Hematology/Oncology Comment on above: (SO)CBC(PORT)/D8 GEMZAR/AUTH EXP 11/01/24 * Start: 09-06-2024 End: 09-06-2024 Abdom paracentesis dx/ther w/imaging guidance ABDOMINAL PARACENTESIS W/ IMAGING GUIDANCE 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 Start: 09-06-2024 End: 09-06-2024 Admission to same day surgery center 09/06/2024 9:00 AM EDT - 09/06/2024 10:00 AM EDT [facility] [address] [place] [address] Karen Vicente, CERTIFIED ORTHOTIST/PEDORTHIST.REGIONAL WILDLIFE AGENT [address] [place], [place] [phone] ABDOMINAL PARACENTESIS W/ IMAGING GUIDANCE [facility] Comment on above: ABDOMINAL PARACENTESIS W/ IMAGING GUIDAN CE Start: 09-06-2024 Subsequent hospital visit by physician 09/06/2024 9:00 AM EDT Hospital Encounter [facility] [address] [place] [address] Karen Vicente, CERTIFIED ORTHOTIST/PEDORTHIST.REGIONAL WILDLIFE AGENT [address] [address], [place] [phone] 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], 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] [facility] Comment on above: 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], 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] Start: 09-05-2024 End: 09-05-2024 ambulatory 09/05/2024 11:00 AM EDT [facility] Gynecology Oncology [address] [place] [address] Fang Cote MD [address] [place] [address] results/ call the pt [facility] Gynecology Oncology Comment on above: results/ call the pt Start: 09-05-2024 End: 09-05-2024 Patient encounter procedure [facility] Comment on above: medicare wellness Start: 08-31-2024 End: 08-31-2024 ambulatory Hematology/Oncology Comment on above: QMO AVASTIN/HYCAMTIN(PORT)/LAB & OV 08/29 /MDCR* Q28 D1 GEMCITABINE(P ORT)/AUTH EXP 11/01/24* QMO GEMZAR-D1(PORT)L AB&OV 08/30/AUTH EXP 11/01/24* Start: 08-30-2024 End: 08-30-2024 Patient encounter procedure Cat Scan Comment on above: 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 Start: 08-25-2024 BP Controlled (<130/80) BP Controlled (<130/80) [facility] Start: 08-25-2024 Covid-19 Vaccine () Covid-19 Vaccine ( season) [facility] Comment on above: Postponed from 07/14/2023 (Declined at t his time) Start: 08-25-2024 RSV Vaccine (1 - 1-dose 60+ series) RSV Vaccine (1 - 1-dose 60+ series) [facility] Comment on above: Postponed from 2009 (Insurance Cov erage) Start: 08-25-2024 RSV Vaccine (1 - 1-dose 75+ series) RSV Vaccine (1 - 1-dose 75+ series) [facility] Comment on above: Postponed from 2024 (Insurance Cov erage) Start: 08-25-2024 Shingrix Vaccine (1 of 2) Shingrix Vaccine (1 of 2) [facility] Comment on above: Postponed from 11/07/2013 (Insurance Cov erage) Start: 08-25-2024 Urine microalbumin profile DTaP,Tdap,Td Vaccine (2 - Td or Tdap) 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) 08/25/2024 8:30 AM EST [facility] IR Start: 08-25-2024 End: 08-25-2024 Admission to same day surgery center 08/25/2024 8:30 AM EST - 08/25/2024 9:30 AM EST [facility] Radiology [address] [place] [address] Corinne Templeton, CERTIFIED ORTHOTIST/PEDORTHIST.REGIONAL WILDLIFE AGENT [address] [place] [address] ABDOMINAL PARACENTESIS W/ IMAGING GUIDANCE [facility] Comment on above: ABDOMINAL PARACENTESIS W/ IMAGING BETTY HUTSON Start: 08-25-2024 Subsequent hospital visit by physician 08/25/2024 8:30 AM EST Hospital Encounter [facility] [address] [place] [address] Corinne Templeton, CERTIFIED ORTHOTIST/PEDORTHIST.REGIONAL WILDLIFE AGENT [address] [place] [address] 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], 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 Comment on above: Expected: 08/18/2024, Expires: Start: 08-18-2024 End: 11-17-2024 LIPID PANEL, NONFASTING LIPID PANEL, NONFASTING Lab Routine Essential hypertension Mixed hyperlipidemia Expected: 08/18/2024, Expires: 11/17/2024 [facility] Comment on above: Expected: 08/18/2024, Expires: Start: 08-18-2024 End: 11-17-2024 Urinalysis complete panel - Urine URINALYSIS, WITH MICROSCOPIC Lab Routine Essential hypertension Mixed hyperlipidemia Expected: 08/18/2024, Expires: 11/17/2024 [facility] Comment on above: Expected: 08/18/2024, Expires: Start: 08-17-2024 End: 08-17-2024 ambulatory Hematology/Oncology Comment on above: (SO)CBC/D15 AVASTIN/HYCAMTIN(PORT)/MDCR* CBC(PORT) Q28 DAY15 GEMCITABINE/AUTH EXP 11/01/24* CBC(PORT)D15 GEMZAR/ AUTH EXP 11/01/24* (SO)CBC(PORT)/D15 GE MZAR/AUTH EXP 11/01/24* Start: 08-13-2024 BP Controlled (<130/80) BP Controlled (<130/80) [facility] Start: 08-10-2024 End: 08-10-2024 ambulatory Hematology/Oncology Comment on above: CBC(PORT)Q28 DAY8 GEMCITABINE (PORT) /AU TH EXP 11/01/24* CBC(PORT)D8 GEMZAR / AUTH EXP 11/01/24* (SO)CBC(PORT)/D8 GEM LAYNE/AUTH EXP 11/01/24* Start: 08-09-2024 End: 08-09-2024 Patient encounter procedure 08/09/2024 10:45 AM EST Office Visit General Surgery [address] [place], [place] [phone] Wu Moe MD [address] [facility] [address] [place], [place] [phone] per [address] Moe Plebebax catheter come in at 1045 General Surgery Comment on above: per Dr Moe Plebebax catheter come in a t 1045 Start: 08-08-2024 End: 08-08-2024 Abdom paracentesis dx/ther w/imaging guidance [facility] Start: 08-08-2024 End: 08-08-2024 Admission to same day surgery center 08/08/2024 10:00 AM EST - 08/08/2024 11:00 AM EST [facility] [address] [place] [address] Corinne Templeton APRN.REGIONAL WILDLIFE AGENT [address] [address], [place] [phone] ABDOMINAL PARACENTESIS W/ IMAGING GUIDANCE [facility] Comment on above: ABDOMINAL PARACENTESIS W/ IMAGING BETTY HUTSON Start: 08-08-2024 Subsequent hospital visit by physician 08/08/2024 10:00 AM EST Hospital Encounter [facility] [address] [place] [address] Corinne Templeton APRN.REGIONAL WILDLIFE AGENT [address] [place] [address] 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] , 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] [facility] Comment on above: 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] , 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] Start: 08-03-2024 End: 08-03-2024 ambulatory Hematology/Oncology Comment on above: QMO AVASTIN/HYCAMTIN(PORT)/LAB & OV 08/01 /MDCR* CBC/CMP/CA-125(PORT) START Q28 D1 GEMCITABINE/AUTH EXP 11/01/24* CBC/CMP/CA-125(PORT) START Q28 D1 GEMZAR/AUTH EXP 11/01/24* (SO)CBC/CMP(S)/CA125 (PORT)/START Q28 D1 GEMZAR/AUTH EXP 11/01/24* Start: 08-01-2024 End: 08-01-2024 ambulatory Hematology/Oncology Comment on above: (SO)CBC/CMP(S)/CA125(PORT)/OV TODAY* OV(PORT)/LABS EARLY/ CHEMO 08/03* MASCI Start: 07-31-2024 End: 07-31-2024 Patient encounter procedure 07/31/2024 2:00 PM EST Appointment [facility] [address] [place] [address] Wu Moe MD [address] [facility] [place] [address] Vonda Pedersen MD [address] [place] [address] Sloan Howe APRN.ADVISORY INTERN [address] [place] [address] [facility] Start: 07-31-2024 Subsequent hospital visit by physician 07/31/2024 12:12 PM EST Hospital Encounter [facility] [address] [place] [address] Wu Moe MD [address] [facility] [place], [place] [id number] Sloan Howe APRN.ADVISORY INTERN [address] [place], [place] [phone] [place] [address] Hemorrhoids, unspecified hemorrhoid type [K64.9] [facility] Comment on above: Hemorrhoids, unspecified hemorrhoid type [K64.9] Start: 07-30-2024 BP Controlled (<130/80) BP Controlled (<130/80) [place] in Start: 07-28-2024 End: 07-28-2024 Anesthesia consultation 07/28/2024 11:59 PM EST Anesthesia Event [facility] [address] [place] [address] Sloan Howe, HECTOR.ADVISORY INTERN [address] [place] [address] [facility] Start: 07-26-2024 End: 07-26-2024 Patient encounter procedure 07/26/2024 1:45 PM EST Office Visit General Surgery [address] [place], [place] [phone] Wu Moe MD [address] [place], [place] [phone] Hemorrhoids, unspecified hemorrhoid type [K64.9] General Surgery Comment on above: Hemorrhoids, unspecified hemorrhoid type [K64.9] Start: 07-25-2024 End: 07-25-2024 Abdom paracentesis dx/ther w/imaging guidance ABDOMINAL PARACENTESIS W/ IMAGING GUIDANCE Malignant ascites 07/25/2024 10:00 AM EST [facility] IR Start: 07-25-2024 End: 07-25-2024 Admission to same day surgery center 07/25/2024 10:00 AM EST - 07/25/2024 11:00 AM EST [facility] [address] [place] [address] Corinne Templeton, CERTIFIED ORTHOTIST/PEDORTHIST.REGIONAL WILDLIFE AGENT [address], [place] [phone] ABDOMINAL PARACENTESIS W/ IMAGING GUIDANCE [facility] Comment on above: ABDOMINAL PARACENTESIS W/ IMAGING GUIDAN CE Start: 07-25-2024 Subsequent hospital visit by physician 07/25/2024 10:00 AM EST Hospital Encounter [facility] [address] [place] [address] Corinne Templeton, CERTIFIED ORTHOTIST/PEDORTHIST.REGIONAL WILDLIFE AGENT [address] [place] [address] Malignant ascites [R18.0] [facility] Comment on above: Malignant ascites [R18.0] Start: 07-20-2024 End: 07-20-2024 ambulatory 07/20/2024 11:00 AM [facility] Infusion Center Hematology/Oncology [address] [place] [address] (SO)CBC/D15 AVASTIN/HYCAMTIN(PORT)/ CR* Hematology/Oncology Comment on above: (SO)CBC/D15 AVASTIN/HYCAMTIN(PORT)/MDCR* Start: 07-13-2024 End: 07-13-2024 ambulatory 07/13/2024 8:30 AM EST Infusion Center Hematology/Oncology [address] [place] [address] (SO)CBC/D8 HYCAMTIN(PORT)/MDCR* Hematology/Oncology Comment on above: (SO)CBC/D8 HYCAMTIN(PORT)/MDCR* Start: 07-07-2024 DIABETES SCREEN DIABETES SCREEN [facility] Start: 07-06-2024 End: 07-06-2024 ambulatory 07/06/2024 10:00 AM EST Infusion Center Hematology/Oncology [address] [place] [address] QMO AVASTIN/HYCAMTIN(PORT)/LA B & OV 07/04/MDCR* Hematology/Oncology Comment on above: QMO AVASTIN/HYCAMTIN(PORT)/LAB & OV 07/04 /MDCR* Start: 07-04-2024 End: 07-04-2024 ambulatory Hematology/Oncology Comment on above: (SO)CBC/CMP(S)/CA125(PORT)/OV TODAY* OV(PORT)/LABS EARLY/ CHEMO 07/06* MASCI Start: 07-03-2024 End: 07-03-2024 Abdom paracentesis dx/ther w/imaging guidance ABDOMINAL PARACENTESIS W/ IMAGING GUIDANCE Malignant ascites 07/03/2024 9:00 AM EST [facility] IR Start: 07-03-2024 End: 07-03-2024 Admission to same day surgery center 07/03/2024 9:00 AM EST - 07/03/2024 10:00 AM [facility] [address] [place] [address] [place] [address], [place] [id number] ABDOMINAL PARACENTESIS W/ IMAGING GUIDANCE [facility] Comment on above: ABDOMINAL PARACENTESIS W/ IMAGING GUIDAN CE Start: 07-03-2024 Subsequent hospital visit by physician 07/03/2024 9:00 AM [facility] Hospital Encounter [facility] [address] [place] [address] [place] [id number], [address] [address] Malignant ascites [R18.0] [facility] Comment on above: Malignant ascites [R18.0] Start: 07-02-2024 BP Controlled (<130/80) BP Controlled (<130/80) [facility] in Start: 06-29-2024 End: 06-29-2024 ambulatory 06/29/2024 9:00 AM EST Infusion Center Hematology/Oncology [address] [place], [place] [address] (SO)CBC/D15 AVASTIN/HYCAMTIN(PORT)/ CR* Hematology/Oncology Comment on above: (SO)CBC/D15 AVASTIN/HYCAMTIN(PORT)/MDCR* Start: 06-28-2024 End: 06-28-2024 Follow-up encounter 06/28/2024 10:00 AM EST Visit (SP) Office Gynecology Oncology [address] [place] [address] Fang Cote MD [address] [place], [place] [id number] Follow up visit Gynecology Oncology Comment on above: Follow up visit Start: 06-23-2024 End: 06-23-2024 ambulatory 06/23/2024 9:00 AM EST Infusion Center Hematology/Oncology [address] [place], [place] [id number] (SO)CBC/D15 AVASTIN/HYCAMTIN(PORT)/ CR* Hematology/Oncology Comment on above: (SO)CBC/D15 AVASTIN/HYCAMTIN(PORT)/MDCR* Start: 06-22-2024 End: 06-22-2024 ambulatory 06/22/2024 9:00 AM EST [facility] Hematology/Oncology [address] [place], [place] [id number] (SO)CBC/D8 HYCAMTIN(PORT)/MDCR* Hematology/Oncology Comment on above: (SO)CBC/D8 HYCAMTIN(PORT)/MDCR* Start: 06-21-2024 Advance Directive Discussion Advance Directive Discussion [facility] Start: 06-16-2024 End: 06-16-2024 ambulatory Hematology/Oncology Comment on above: QMO AVASTIN/HYCAMTIN(PORT)/LAB & OV 05/22 6/MDCR* (SO)CBC/D8 HYCAMTIN( PORT)/MDCR* Start: 06-15-2024 End: 06-15-2024 ambulatory Hematology/Oncology Comment on above: (SO)CBC/CMP(S)/CA125(PORT)/OV TODAY* OV(PORT)/LABS EARLY/ CHEMO 06/16* [facility] Start: 06-15-2024 End: 06-15-2024 Patient encounter procedure Cat Scan Comment on above: CT ABD PELVIS CHEST Start: 06-08-2024 Annual PCP Team Chronic Disease Visit Annual PCP Team Chronic Disease Visit [facility] Start: 06-08-2024 End: 06-08-2024 ambulatory Hematology/Oncology Comment on above: (SO)CBC/D15 AVASTIN/HYCAMTIN(PORT)/MDCR* QMO AVASTIN/HYCAMTIN (PORT)/LAB & OV 06/07/MDCR* Start: 06-07-2024 End: 06-07-2024 ambulatory Hematology/Oncology Comment on above: (SO)CBC/CMP(S)/CA125(PORT)/OV TODAY* OV(PORT)/LABS EARLY/ CHEMO 06/08* [facility] Start: 06-01-2024 End: 06-01-2024 ambulatory Hematology/Oncology Comment on above: (SO)CBC/D8 HYCAMTIN(PORT)/MDCR* (SO)CBC/D15 AVASTIN/ HYCAMTIN(PORT)/MDCR* Start: 05-25-2024 End: 05-25-2024 ambulatory Hematology/Oncology Comment on above: QMO AVASTIN/HYCAMTIN(PORT)/LAB & OV 05/23 /MDCR* (SO)CBC/D8 HYCAMTIN( PORT)/MDCR* (SO)CBC/D15 AVASTIN/ HYCAMTIN(PORT)/MDCR* Start: 05-23-2024 End: 05-23-2024 ambulatory Hematology/Oncology Comment on above: (SO)CBC/CMP(S)/CA125(PORT)/OV TODAY* OV(PORT)/LABS EARLY/ CHEMO 05/25* [facility]CI Start: 05-19-2024 End: 05-19-2024 ambulatory 05/19/2024 9:00 AM [facility] Hematology/Oncology [address] [place] [address] (SO)CBC/D15 AVASTIN/HYCAMTIN(PORT)/MD CR* Hematology/Oncology Comment on above: (SO)CBC/D15 AVASTIN/HYCAMTIN(PORT)/MDCR* Start: 05-17-2024 End: 05-17-2024 ambulatory Hematology/Oncology Comment on above: QMO AVASTIN/HYCAMTIN(PORT)/LAB & OV 04/22 6/MDCR* (SO)CBC/D8 HYCAMTIN( PORT)/MDCR* Start: 05-16-2024 End: 05-16-2024 ambulatory Hematology/Oncology Comment on above: (SO)CBC/CMP(S)/CA125(PORT)/OV TODAY* OV(PORT)/LABS EARLY/ CHEMO 05/17* [facility]CI Start: 05-11-2024 End: 05-11-2024 Follow-up encounter 05/11/2024 2:30 PM [facility] Oncology [address] [place], [place] [id number] Fang Cote MD [address] [place] [address] Televisit - Follow up Gynecology Oncology Comment on above: Televisit - Follow up Start: 05-11-2024 End: 05-11-2024 ambulatory 05/11/2024 1:30 PM EST [facility]fusion [facility] Hematology/Oncology [address] [place] [address] (SO)CBC/D15 AVASTIN/HYCAMTIN(PORT)/ CR* Hematology/Oncology Comment on above: (SO)CBC/D15 AVASTIN/HYCAMTIN(PORT)/MDCR* Start: 05-10-2024 End: 05-10-2024 ambulatory 05/10/2024 11:00 AM EST [facility]fusion [facility] Hematology/Oncology [address] [place] [address] QMO AVASTIN/HYCAMTIN(PORT)/LA B & OV 05/09/MDCR* Hematology/Oncology Comment on above: QMO AVASTIN/HYCAMTIN(PORT)/LAB & OV 04/21 9/MDCR* Start: 05-09-2024 End: 05-09-2024 ambulatory Hematology/Oncology Comment on above: (SO)CBC/CMP(S)/CA125(PORT)/OV TODAY* OV(PORT)/LABS EARLY/ CHEMO 11/20* [facility] Start: 05-07-2024 BP Controlled (<130/80) BP Controlled (<130/80) [facility] in Start: 05-05-2024 End: 05-05-2024 ambulatory 05/05/2024 1:30 PM EST [facility]fusion [facility] Hematology/Oncology [address] [place] [address] (SO)CBC/D8 HYCAMTIN(PORT)/MDCR* Hematology/Oncology Comment on above: (SO)CBC/D8 HYCAMTIN(PORT)/MDCR* Start: 05-05-2024 End: 05-05-2024 ambulatory 05/05/2024 9:30 AM EST [facility]fusion [facility] Hematology/Oncology [address] [place] [address] (SO)CBC/D8 HYCAMTIN(PORT)/MDCR* Hematology/Oncology Comment on above: (SO)CBC/D8 HYCAMTIN(PORT)/MDCR* Start: 05-04-2024 End: 05-04-2024 Follow-up encounter 05/04/2024 11:10 AM EST Visit (SP) Office Gynecology Oncology [address] [place] [address] Fang Cote MD [address] [place], [place] [id number] FOLLOW UP - CT 12/01 Gynecology Oncology Comment on above: FOLLOW UP - CT 12/01 Start: 05-03-2024 End: 05-03-2024 ambulatory Hematology/Oncology Comment on above: QMO AVASTIN/HYCAMTIN(PORT)/LAB & OV 04/21 2/MDCR* (SO)CBC/D15 AVASTIN/ HYCAMTIN(PORT)/MDCR* Start: 05-02-2024 End: 05-02-2024 ambulatory Hematology/Oncology Comment on above: (SO)CBC/CMP(S)/CA125(PORT)/OV TODAY* OV(PORT)/LABS EARLY/ CHEMO 05/03* [facility] Start: 04-27-2024 End: 04-27-2024 ambulatory 04/27/2024 1:30 PM EST Infusion [facility] Hematology/Oncology [address] [place] [address] QMO AVASTIN/HYCAMTIN(PORT)/LA B & OV 04/25/MDCR* Hematology/Oncology Comment on above: QMO AVASTIN/HYCAMTIN(PORT)/LAB & OV 04/25 /MDCR* Start: 04-26-2024 End: 04-26-2024 ambulatory 04/26/2024 10:30 AM EST Infusion Center Hematology/Oncology [address] [place] [address] (SO)CBC/D8 HYCAMTIN(PORT)/MDCR* Hematology/Oncology Comment on above: (SO)CBC/D8 HYCAMTIN(PORT)/MDCR* Start: 04-25-2024 End: 04-25-2024 ambulatory Hematology/Oncology Comment on above: (SO)CBC/CMP(S)/CA125(PORT)/OV TODAY* OV(PORT)/LABS EARLY/ CHEMO 04/27* [facility] Start: 04-13-2024 End: 04-13-2024 ambulatory Hematology/Oncology Comment on above: CBC/D15 AVASTIN/HYCAMTIN(PORT)/MDCR* (SO)CBC/D15 AVASTIN/ HYCAMTIN(PORT)/MDCR* Start: 04-09-2024 BP Controlled (<130/80) BP Controlled (<130/80) [facility] Start: 04-06-2024 End: 04-06-2024 ambulatory Hematology/Oncology Comment on above: CBC/D8 HYCAMTIN(PORT)/MDCR* (SO)CBC/D8 HYCAMTIN( PORT)/MDCR* Start: 03-30-2024 End: 03-30-2024 ambulatory 03/30/2024 8:30 AM EDT Infusion Center Hematology/Oncology [address] [place] [address] QMO AVASTIN/HYCAMTIN(PORT)/LA B & OV 03/29/MDCR* Hematology/Oncology Comment on above: QMO AVASTIN/HYCAMTIN(PORT)/LAB & OV 03/29 /MDCR* Start: 03-29-2024 End: 03-29-2024 ambulatory Hematology/Oncology Comment on above: CBC/CMP/CA125(PORT)/OV TODAY* OV(PORT)/LABS EARLY/ CHEMO 03/30* [facility]CI (SO)CBC/CMP(S)/CA125 (PORT)/OV TODAY* Start: 03-22-2024 End: 03-22-2024 ambulatory 03/22/2024 8:30 AM EDT Infusion Center Hematology/Oncology [address] [place] [address] Wstr, Lab/Port [facility] [address] [place] [address]* Hematology/Oncology Comment on above: PORT ACCESS FOR CT* Start: 03-22-2024 End: 03-22-2024 Patient encounter procedure Cat Scan Comment on above: 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 Start: 03-12-2024 BP Controlled (<130/80) BP Controlled (<130/80) [facility] Start: 03-09-2024 End: 03-09-2024 ambulatory Hematology/Oncology Comment on above: CBC/D8 HYCAMTIN(PORT)/MDCR* (SO)CBC/D8 HYCAMTIN( PORT)/MDCR* Start: 03-02-2024 End: 03-02-2024 ambulatory 03/02/2024 1:30 PM EDT Infusion Center Hematology/Oncology [address] [place] [address] QMO AVASTIN/HYCAMTIN(PORT)/LA B & OV 02/28/MDCR* Hematology/Oncology Comment on above: QMO AVASTIN/HYCAMTIN(PORT)/LAB & OV 02/28 /MDCR* Start: 03-01-2024 End: 03-01-2024 Patient encounter procedure 03/01/2024 9:20 AM EDT Office Visit [facility] Kyle Shine [address] [place] [address] Shay Cardoza MD [address] [place] [address] 6 month follow up [facility] Shafferoster Comment on above: 6 month follow up Start: 02-29-2024 End: 02-29-2024 ambulatory Hematology/Oncology Comment on above: CBC/CMP/CA125(PORT)/OV TODAY* OV(PORT)/LABS EARLY/ CHEMO 03/02* [facility]CI (SO)CBC/CMP(S)/CA125 (PORT)/OV TODAY* Start: 02-28-2024 End: 02-28-2024 ambulatory Hematology/Oncology Comment on above: (SO)CBC/CMP(S)LABS(PORT)/OV TODAY* OV(PORT)/LABS&CHEMO TODAY* MASCI Q3WK ELAHERE(PORT)/L AB & OV EARLY/MDCR* - TX ON WED DUE TO TRANS (SO)CBC/CMP(S)/CA125 (PORT)/OV TODAY* Start: 02-25-2024 ANNUAL PCP TEAM CHRONIC DISEASE VISIT ANNUAL PCP TEAM CHRONIC DISEASE VISIT [facility] Start: 02-25-2024 BP CONTROLLED (<130/80) BP CONTROLLED (<130/80) [facility] Start: 02-20-2024 Covid-19 Vaccine ( season) Covid-19 Vaccine () [facility] Start: 02-20-2024 Covid-19 Vaccine ( season) Covid-19 Vaccine () [facility] Start: 02-16-2024 End: 02-16-2024 ambulatory Hematology/Oncology Comment on above: CBC/D15 AVASTIN/HYCAMTIN(PORT)/MDCR* (SO)CBC/D15 AVASTIN/ HYCAMTIN(PORT)/MDCR* Start: 02-13-2024 BP CONTROLLED (<130/80) BP CONTROLLED (<130/80) [facility] in Start: 02-10-2024 End: 02-10-2024 ambulatory Hematology/Oncology Comment on above: CBC/D8 HYCAMTIN(PORT)/MDCR* (SO)CBC/D8 HYCAMTIN( PORT)/MDCR* Start: 02-07-2024 End: 02-07-2024 ambulatory Hematology/Oncology Comment on above: CBC/?LABS(PORT)/OV TODAY* OV(PORT)/LABS&CHEMO TODAY* MASCI Q3WK ELAHERE(PORT)/L AB & OV EARLY/MDCR* - TX ON MON DUE TO TRANS (SO)CBC/CMP(S)LABS(P ORT)/OV TODAY* (SO)CBC/CMP(S)/CA125 (PORT)/OV TODAY* Start: 02-04-2024 End: 02-04-2024 ambulatory 02/04/2024 8:00 AM EDT Infusion Center Hematology/Oncology [address] [place] [address] CBC/CMP(S)/CA125/START QMO AVASTIN/HYCAMTIN(PORT)/MD CR* Hematology/Oncology Comment on above: CBC/CMP(S)/CA125/START QMO AVASTIN/HYCAM TIN(PORT)/MDCR* Start: 02-02-2024 End: 02-02-2024 ambulatory 02/02/2024 8:30 AM EDT Infusion Center Hematology/Oncology [address] [place] [address] Wstr, Lab/Port [facility] [address] [place] [address]* Hematology/Oncology Comment on above: PORT ACCESS FOR CT* Start: 02-02-2024 End: 02-02-2024 Patient encounter procedure Cat Scan Comment on above: 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]; 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] Start: 01-28-2024 End: 01-28-2024 ambulatory 01/28/2024 2:50 PM EDT Visit (SP) Office Hematology/Oncology [address] [place] [address] Js Cruz DO [address] [place] [address] OV(PORT)/LABS&CT 01/23* [facility] Hematology/Oncology Comment on above: OV(PORT)/LABS&CT 01/23* [facility] Start: 01-24-2024 End: 01-24-2024 ambulatory 01/24/2024 10:15 AM EDT Infusion Center Hematology/Oncology [address] [place] [address] Wstr, Lab/Port [facility] [address] [place] [address] (SO)CBC/CMP(S)/CA125(PORT )/KEEP ACCESSED FOR CT* Hematology/Oncology Comment on above: (SO)CBC/CMP(S)/CA125(PORT)/KEEP ACCESSED FOR CT* Start: 01-24-2024 End: 01-24-2024 Patient encounter procedure Cat Scan Comment on above: 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]; 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] Start: 01-17-2024 End: 01-17-2024 ambulatory Hematology/Oncology Comment on above: CBC/?LABS(PORT)/OV TODAY* OV(PORT)/LABS&CHEMO TODAY* MASCI Q3WK ELAHERE(PORT)/L AB & OV EARLY/MDCR* - TX ON WED DUE TO TRANS (SO)CBC/CMP(S)LABS(P ORT)/OV TODAY* Start: 01-15-2024 BP CONTROLLED (<130/80) BP CONTROLLED (<130/80) [facility] Start: 12-27-2023 End: 12-27-2023 ambulatory Hematology/Oncology Comment on above: CBC/?LABS(PORT)/OV TODAY* OV(PORT)/LABS EARLY/ CHEMO 12/06* - ok per pm Q3WK ELAHERE(PORT)/L AB & OV 11/30/MDCR* - TX ON MONDAYS - TRANSPORTATION OV(PORT)/LABS&CHEMO TODAY* MASCI Q3WK ELAHERE(PORT)/L AB & OV EARLY/MDCR* - TX ON WED DUE TO TRANS OV(PORT)/LABS&CHEMO TODAY/CT 12/20* [facility] Start: 12-21-2023 End: 12-21-2023 Patient encounter procedure 12/21/2023 8:40 AM EDT Appointment Cat Scan [address] [place] [address] Pneumonitis [J98.4]; Carcinoma of fallopian tube, 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]; 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] Cat Scan Comment on above: Pneumonitis [J98.4]; Carcinoma of fallop bi tube, 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]; 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] Start: 12-12-2023 BP CONTROLLED (<130/80) BP CONTROLLED (<130/80) [facility] in Start: 12-09-2023 End: 12-09-2023 Follow-up encounter 12/09/2023 9:40 AM EDT Visit (SP) Office Gynecology Oncology [address] [place] [address] Fang Cote MD [address] [place] [address] FOLLOW UP - CT 12/01 Gynecology Oncology Comment on above: FOLLOW UP - CT 12/01 Start: 12-08-2023 BP CONTROLLED (<130/80) BP CONTROLLED (<130/80) [facility] in Start: 12-07-2023 End: 12-07-2023 ambulatory Hematology/Oncology Comment on above: Q3WK ELAHERE(PORT)/LAB & OV 11/30/MDCR* - TX ON MONDAYS - TRANSPORTATION Q3WK ELAHERE(PORT)/L AB & OV 11/30/MDCR* - TX ON WED DUE TO TRANS Q3WK ELAHERE(PORT)/L AB & OV 12/05/MDCR* Start: 12-06-2023 End: 12-06-2023 ambulatory Hematology/Oncology Comment on above: CBC/?LABS(PORT)/OV TODAY* OV(PORT)/LABS EARLY/ CHEMO 12/06* - ok per pm Start: 12-02-2023 End: 12-02-2023 ambulatory 12/02/2023 8:15 AM EDT Infusion Center Hematology/Oncology [address] [place] [address] Wstr, Lab/Port [facility] [address] [place] [address]* Hematology/Oncology Comment on above: PORT ACCESS FOR CT* Start: 12-02-2023 End: 12-02-2023 Patient encounter procedure Cat Scan Comment on above: 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]; 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 Start: 11-14-2023 BP CONTROLLED (<130/80) BP CONTROLLED (<130/80) [facility] in Start: 11-12-2023 End: 11-12-2023 ambulatory Hematology/Oncology Comment on above: CBC/?LABS(PORT)/OV TODAY* OV(PORT)/LABS EARLY/ CHEMO 11/10*() Start: 10-31-2023 BP CONTROLLED (<130/80) BP CONTROLLED (<130/80) [facility] in Start: 10-26-2023 End: 10-26-2023 ambulatory 10/26/2023 10:00 AM EDT Infusion Center Hematology/Oncology [address] [place] [address] Q3WK ELAHERE(PORT)/LAB & OV 10/19/MDCR* Hematology/Oncology Comment on above: Q3WK ELAHERE(PORT)/LAB & OV 10/19/MDCR* Start: 10-10-2023 BP CONTROLLED (<130/80) BP CONTROLLED (<130/80) [facility] Start: 09-23-2023 End: 12-23-2023 CBC W Auto Differential panel - Blood CBC + DIFF Lab STAT Malignant neoplasm of both ovaries (HCC) Iron deficiency anemia due to chronic blood loss Iron malabsorption Expected: 09/23/2023, Expires: 12/23/2023 [facility] Work Phone: Comment on above: Expected: 09/23/2023, Expires: Start: 09-23-2023 End: 12-23-2023 Ferritin [Mass/volume] in Serum or Plasma FERRITIN BLD Lab Routine Malignant neoplasm of both ovaries (HCC) Iron deficiency anemia due to chronic blood loss Iron malabsorption Expected: 09/23/2023, Expires: 12/23/2023 [facility] Work Phone: Comment on above: Expected: 09/23/2023, Expires: Start: 09-23-2023 End: 12-23-2023 Iron and Iron binding capacity panel - Serum or Plasma IRON + TIBC Lab Routine Malignant neoplasm of both ovaries (HCC) Iron deficiency anemia due to chronic blood loss Iron malabsorption Expected: 09/23/2023, Expires: 12/23/2023 [facility] Work Phone: Comment on above: Expected: 09/23/2023, Expires: Start: 09-23-2023 End: 12-23-2023 RETIC COUNT RETIC COUNT Lab Routine Malignant neoplasm of both ovaries (HCC) Iron deficiency anemia due to chronic blood loss Iron malabsorption Expected: 09/23/2023, Expires: 12/23/2023 [facility] Work Phone: Comment on above: Expected: 09/23/2023, Expires: Start: 08-31-2023 End: 11-30-2023 CBC W Ordered Manual Differential panel - Blood PATHOLOGIST INTERPRETATION WITH CBC AND DIFF Lab Routine Anemia, unspecified type Expected: 08/31/2023, Expires: 11/30/2023 [facility] Work Phone: Comment on above: Expected: 08/31/2023, Expires: Start: 08-31-2023 End: 11-30-2023 Cobalamin (Vitamin B12) [Mass/volume] in Serum or Plasma VITAMIN B12 BLOOD Lab Routine Anemia, unspecified type Expected: 08/31/2023, Expires: 11/30/2023 [facility] Work Phone: Comment on above: Expected: 08/31/2023, Expires: Start: 08-31-2023 End: 11-30-2023 Direct antiglobulin test.poly specific reagent [Presence] on Red Blood Cells FLASH DIRECT Blood Bank Routine Anemia, unspecified type Expected: 08/31/2023, Expires: 11/30/2023 [facility] Work Phone: Comment on above: Expected: 08/31/2023, Expires: Start: 08-31-2023 End: 11-30-2023 Ferritin [Mass/volume] in Serum or Plasma FERRITIN BLD Lab Routine Anemia, unspecified type Expected: 08/31/2023, Expires: 11/30/2023 [facility] Work Phone: Comment on above: Expected: 08/31/2023, Expires: Start: 08-31-2023 End: 11-30-2023 Folate [Mass/volume] in Serum or Plasma FOLATE SERUM Lab Routine Anemia, unspecified type Expected: 08/31/2023, Expires: 11/30/2023 [facility] Work Phone: Comment on above: Expected: 08/31/2023, Expires: Start: 08-31-2023 End: 11-30-2023 Haptoglobin [Mass/volume] in Serum or Plasma HAPTOGLOBIN BLD Lab Routine Anemia, unspecified type Expected: 08/31/2023, Expires: 11/30/2023 [facility] Work Phone: Comment on above: Expected: 08/31/2023, Expires: Start: 08-31-2023 End: 11-30-2023 Iron and Iron binding capacity panel - Serum or Plasma IRON + TIBC Lab Routine Anemia, unspecified type Expected: 08/31/2023, Expires: 11/30/2023 [facility] Work Phone: Comment on above: Expected: 08/31/2023, Expires: 4 Start: 08-31-2023 End: 11-30-2023 Lactate dehydrogenase [Enzymatic activity/volume] in Serum or Plasma LD LACTATE DEHYDRO Lab Routine Anemia, unspecified type Expected: 08/31/2023, Expires: 11/30/2023 [facility] Work Phone: Comment on above: Expected: 08/31/2023, Expires: Start: 08-31-2023 End: 11-30-2023 RETIC COUNT RETIC COUNT Lab Routine Anemia, unspecified type Expected: 08/31/2023, Expires: 11/30/2023 [facility] Work Phone: Comment on above: Expected: 08/31/2023, Expires: 4 Start: 08-29-2023 BP CONTROLLED (<130/80) BP CONTROLLED (<130/80) [facility] Start: 08-29-[address] [facility] Start: 08-29-2023 Screening for malignant neoplasm of breast Mammogram Screening [facility] Start: 08-25-2023 ANNUAL PCP TEAM CHRONIC DISEASE VISIT ANNUAL PCP TEAM CHRONIC DISEASE VISIT [facility] Start: 08-25-2023 SHINGRIX VACCINE (1 of 2) SHINGRIX VACCINE (1 of 2) [facility] Comment on above: Postponed from 11/07/2013 (Declined at t his time) Start: 08-25-[address] [facility] Comment on above: Postponed from 11/29/2020 (Insurance Cov erage) Start: 08-13-2023 End: 11-12-2023 CARIS NH TUMOR SEEK HYBRID [facility] Work Phone: Comment on above: Expected: 08/13/2023, Expires: 4 Start: 08-04-2023 BP CONTROLLED (<130/80) BP CONTROLLED (<130/80) [facility] Start: 07-14-2023 Covid-19 Vaccine () Covid-19 Vaccine () [facility] Start: 07-10-2023 BP CONTROLLED (<130/80) BP CONTROLLED (<130/80) [facility] Start: 06-26-2023 BP CONTROLLED (<130/80) BP CONTROLLED (<130/80) [facility] Start: 06-21-2023 Advance Directive Discussion Advance Directive Discussion [facility] Start: 06-21-2023 Behavioral Health Screening Behavioral Health Screening [facility] Start: 06-21-2023 Depression Assessment Depression Assessment [facility] Start: 06-02-2023 [facility] Start: 03-25-2023 BP CONTROLLED (<130/80) BP CONTROLLED (<130/80) [facility] Start: 02-24-2023 End: 04-26-2023 Hemoglobin A1c in Blood HGB A1C Lab Routine Impaired fasting glucose Expected: 02/24/2023, Expires: 04/26/2023 [facility] Work Phone: Comment on above: Expected: 02/24/2023, Expires: 3 Start: 02-24-2023 End: 04-26-2023 LIPID PANEL, NONFASTING LIPID PANEL, NONFASTING Lab Routine Mixed hyperlipidemia Expected: 02/24/2023, Expires: 04/26/2023 [facility] Work Phone: Comment on above: Expected: 02/24/2023, Expires: 3 Start: 02-19-2023 Covid-19 Vaccine () Covid-19 Vaccine () [facility] Start: 02-12-2023 End: 04-14-2023 Comprehensive metabolic 2000 panel - Serum or Plasma COMP METABOLIC PANEL Lab Routine Essential hypertension Mixed hyperlipidemia Impaired fasting glucose Expected: 02/12/2023, Expires: 04/14/2023 [facility] Work Phone: Comment on above: Expected: 02/12/2023, Expires: 3 Start: 02-12-2023 End: 04-14-2023 Hemoglobin A1c in Blood HGB A1C Lab Routine Impaired fasting glucose Expected: 02/12/2023, Expires: 04/14/2023 [facility] Work Phone: Comment on above: Expected: 02/12/2023, Expires: 3 Start: 02-12-2023 End: 04-14-2023 LIPID PANEL, NONFASTING LIPID PANEL, NONFASTING Lab Routine Essential hypertension Mixed hyperlipidemia Expected: 02/12/2023, Expires: 04/14/2023 [facility] Work Phone: Comment on above: Expected: 02/12/2023, Expires: 3 Start: 01-29-2023 ANNUAL PCP TEAM CHRONIC DISEASE VISIT ANNUAL PCP TEAM CHRONIC DISEASE VISIT [facility] Start: 01-29-2023 BP CONTROLLED (<130/80) BP CONTROLLED (<130/80) [facility] Start: 12-31-2022 BP CONTROLLED (<130/80) BP CONTROLLED (<130/80) [facility] Start: 11-23-2022 End: 01-23-2023 CREATININE BLD CREATININE BLD Lab STAT Malignant neoplasm of both ovaries (HCC) Carcinomatosis (HCC) Expected: 11/23/2022, Expires: 01/23/2023 [facility] Work Phone: Comment on above: Expected: 11/23/2022, Expires: 3 Start: 11-13-2022 End: 01-13-2023 CBC W Auto Differential panel - Blood CBC + DIFF Lab STAT Bleeding from the nose Thrombocytopenia (HCC) Expected: 11/13/2022, Expires: 01/13/2023 [facility] Work Phone: Comment on above: Expected: 11/13/2022, Expires: 3 Start: 10-01-2022 BP CONTROLLED (<130/80) BP CONTROLLED (<130/80) [facility] Start: 08-26-2022 COVID-19 VACCINE (5 - Pfizer risk series) COVID-19 VACCINE (5 - Pfizer risk series) [facility] Start: 07-31-2022 ANNUAL PCP TEAM CHRONIC DISEASE VISIT ANNUAL PCP TEAM CHRONIC DISEASE VISIT [facility] Start: 07-31-2022 BP CONTROLLED (<130/80) BP CONTROLLED (<130/80) [facility] Start: 07-31-2022 SHINGRIX VACCINE (1 of 2) SHINGRIX VACCINE (1 of 2) [facility] Comment on above: Postponed from 11/07/2013 (Insurance Cov erage) Start: 07-31-2022 SHINGRIX VACCINE (2 of 3) SHINGRIX VACCINE (2 of 3) [facility] Comment on above: Postponed from 11/07/2013 (Insurance Cov erage) Start: 07-17-2022 End: 09-16-2022 Comprehensive metabolic 2000 panel - Serum or Plasma COMP METABOLIC PANEL Lab Routine Essential hypertension Mixed hyperlipidemia Impaired fasting glucose Expected: 07/17/2022, Expires: 09/16/2022 [facility] Work Phone: Comment on above: Expected: 07/17/2022, Expires: 3 Start: 07-17-2022 End: 09-16-2022 Hemoglobin A1c in Blood HGB A1C Lab Routine Impaired fasting glucose Expected: 07/17/2022, Expires: 09/16/2022 [facility] Work Phone: Comment on above: Expected: 07/17/2022, Expires: 3 Start: 07-17-2022 End: 09-16-2022 LIPID PANEL, NONFASTING LIPID PANEL, NONFASTING Lab Routine Essential hypertension Mixed hyperlipidemia Expected: 07/17/2022, Expires: 09/16/2022 [facility] Work Phone: Comment on above: Expected: 07/17/2022, Expires: 3 Start: 07-17-2022 End: 09-16-2022 Urinalysis complete panel - Urine URINALYSIS, WITH MICROSCOPIC Lab Routine Essential hypertension Mixed hyperlipidemia Expected: 07/17/2022, Expires: 09/16/2022 [facility] Work Phone: Comment on above: Expected: 07/17/2022, Expires: 3 Start: 07-10-2022 End: 09-09-2022 25-hydroxyvitamin D3 [Mass/volume] in Serum or Plasma [facility] Work Phone: Comment on above: Expected: 07/10/2022, Expires: Start: 07-04-[address] [facility] Start: 07-02-2022 End: 07-31-2023 Mri pelvis w/o & w/contrast material [facility] Work Phone: Comment on above: Expected: 07/02/2022 (Approximate), Expi res: 07/31/2023 1 Occurrences starti ng 07/02/2022 until 07/02/2022 Start: 06-25-2022 End: 08-25-2022 Cancer Ag 125 [Units/volume] in Serum or Plasma CA 125 BLD Lab Routine Malignant neoplasm of both ovaries (HCC) Expected: 06/25/2022 (Approximate), Expires: 08/25/2022 [facility] Work Phone: Comment on above: Expected: 06/25/2022 (Approximate), Expi res: 08/25/2022 Start: 06-21-2022 ADVANCE DIRECTIVE DISCUSSION ADVANCE DIRECTIVE DISCUSSION [facility] Start: 06-21-2022 DEPRESSION ASSESSMENT DEPRESSION ASSESSMENT [facility] Start: 04-15-2022 End: 05-16-2023 Ct abdomen & pelvis w/contrast material CT ABD/PEL W IVCON Radiology Routine Malignant neoplasm of both ovaries (HCC) Suprapubic pain, acute Expected: 04/15/2022 (Approximate), Expires: 05/16/2023 [facility] Work Phone: Comment on above: Expected: 04/15/2022 (Approximate), Expi res: 05/16/2023 Start: 04-09-2022 End: 06-09-2022 Cancer Ag 125 [Units/volume] in Serum or Plasma CA 125 BLD Lab Routine Malignant neoplasm of both ovaries (HCC) Expected: 04/09/2022 (Approximate), Expires: 06/09/2022 [facility] Work Phone: Comment on above: Expected: 04/09/2022 (Approximate), Expi res: 06/09/2022 Start: 04-09-2022 End: 06-09-2022 CBC W Auto Differential panel - Blood CBC + DIFF Lab Routine Suprapubic pain, acute Expected: 04/09/2022 (Approximate), Expires: 06/09/2022 [facility] Work Phone: Comment on above: Expected: 04/09/2022 (Approximate), Expi res: 06/09/2022 Start: 04-09-2022 End: 06-09-2022 Comprehensive metabolic 2000 panel - Serum or Plasma COMP METABOLIC PANEL Lab Routine Suprapubic pain, acute Expected: 04/09/2022 (Approximate), Expires: 06/09/2022 [facility] Work Phone: Comment on above: Expected: 04/09/2022 (Approximate), Expi res: 06/09/2022 Start: 04-06-2022 End: 06-06-2022 Bacteria identified in Urine by Culture URINE CULTURE Microbiology Routine Sensation of pressure in bladder area Urge incontinence of urine Expected: 04/06/2022 (Approximate), Expires: 06/06/2022 [facility] Work Phone: Comment on above: Expected: 04/06/2022 (Approximate), Expi res: 06/06/2022 Start: 04-06-2022 End: 06-06-2022 Urinalysis complete panel - Urine URINALYSIS, WITH MICROSCOPIC Lab Routine Sensation of pressure in bladder area Urge incontinence of urine Expected: 04/06/2022 (Approximate), Expires: 06/06/2022 [facility] Work Phone: Comment on above: Expected: 04/06/2022 (Approximate), Expi res: 06/06/2022 Start: 01-27-2022 Urine microalbumin profile DTAP,TDAP,TD (2 - Td or Tdap) [facility] Comment on above: Postponed from 11/29/2020 (Declined at t his time) Start: 12-29-2021 End: 02-28-2022 CA 125 BLD CA 125 BLD Lab Routine Malignant neoplasm of both ovaries (HCC) Expected: 12/29/2021 (Approximate), Expires: 02/28/2022 [facility] Work Phone: Comment on above: Expected: 12/29/2021 (Approximate), Expi res: 02/28/2022 Start: 11-12-2021 COVID-19 VACCINE (4 - Booster for Pfizer series) COVID-19 VACCINE (4 - Booster for Pfizer series) [facility] Start: 09-09-2021 COVID-19 VACCINE (4 - Booster for Pfizer series) COVID-19 VACCINE (4 - Booster for Pfizer series) [facility] Start: 06-21-2021 ADVANCE DIRECTIVE DISCUSSION ADVANCE DIRECTIVE DISCUSSION [facility] Start: 06-21-2021 DEPRESSION ASSESSMENT DEPRESSION ASSESSMENT [facility] Start: 11-29-[address] [facility] Start: 02-11-2018 Screening for malignant neoplasm of cervix Cervical Cancer Screening [facility] Start: 04-13-2017 FECAL OCCULT BLOOD FECAL OCCULT BLOOD [facility] Start: 04-13-2017 Screening for malignant neoplasm of colon Fecal Occult Blood [facility] Start: 11-07-2013 SHINGRIX VACCINE (1 of 2) SHINGRIX VACCINE (1 of 2) [facility] Start: 2009 RSV Vaccine (1 - 1-dose 60+ series) RSV Vaccine (1 - 1-dose 60+ series) [facility] Start: 1994 COLOGUARD (FIT-DNA) COLOGUARD (FIT-DNA) [facility] Start: [address] [facility] Start: 1994 Screening for malignant neoplasm of colon [facility] Start: [address] [facility] Start: 1967 BP CONTROLLED (<130/80) BP CONTROLLED (<130/80) [facility] in Start: 1967 Depression Screening Depression Screening [facility] CA 125 BLD CA 125 BLD Lab R outine Malignant neoplasm of both ovaries (HCC) 09/29/2021 8:04 AM EDT [facility] Work Phone: CA 125 BLD CA 125 BLD Lab R outine Malignant neoplasm of both ovaries (HCC) 10/27/2021 8:04 AM EDT [facility] Work Phone: CA 125 BLD CA 125 BLD Lab R outine Malignant neoplasm of both ovaries (HCC) 11/24/2021 8:[address] [facility] Work Phone: Cancer Ag 125 [Units/volume] in Serum or Plasma CA 125 BLD Lab Routine Malignant neoplasm of both ovaries (HCC) 01/19/2022 8:[address] [facility] Work Phone: Cancer Ag 125 [Units/volume] in Serum or Plasma CA 125 BLD Lab Routine Malignant neoplasm of both ovaries (HCC) 02/24/2022 8:[address] [facility] Work Phone: Cancer Ag 125 [Units/volume] in Serum or Plasma CA 125 BLD Lab Routine Malignant neoplasm of both ovaries (HCC) 03/23/2022 8:[address] [facility] Work Phone: Cancer Ag 125 [Units/volume] in Serum or Plasma CA 125 BLD Lab Routine Malignant neoplasm of both ovaries (HCC) 04/13/2022 10:[address] [facility] Work Phone: Cancer Ag 125 [Units/volume] in Serum or Plasma CA 125 BLD Lab Routine Malignant neoplasm of both ovaries (HCC) 08/04/2022 9:14 AM [facility] Work Phone: Cancer Ag 125 [Units/volume] in Serum or Plasma CA 125 BLD Lab Routine Malignant neoplasm of both ovaries (HCC) 08/28/2022 8:00 AM [facility] Work Phone: Cancer Ag 125 [Units/volume] in Serum or Plasma CA 125 BLD Lab Routine Malignant neoplasm of both ovaries (HCC) 10/09/2022 9:[address] [facility] Work Phone: Cancer Ag 125 [Units/volume] in Serum or Plasma CA 125 BLD Lab Routine Malignant neoplasm of both ovaries (HCC) 10/30/2022 10:[address] [facility] Work Phone: Cancer Ag 125 [Units/volume] in Serum or Plasma CA 125 BLD Lab Routine Malignant neoplasm of both ovaries (HCC) 01/14/2023 11:[address] [facility] Work Phone: Cancer Ag 125 [Units/volume] in Serum or Plasma CA 125 BLD Lab Routine Malignant neoplasm of both ovaries (HCC) 02/12/2023 9:[address] [facility] Work Phone: Cancer Ag 125 [Units/volume] in Serum or Plasma CA 125 BLD Lab Routine Malignant neoplasm of both ovaries (HCC) 03/12/2023 8:[address] [facility] Work Phone: Cancer Ag 125 [Units/volume] in Serum or Plasma CA 125 BLD Lab Routine Malignant neoplasm of both ovaries (HCC) 04/09/2023 10:[address] [facility] Work Phone: Cancer Ag 125 [Units/volume] in Serum or Plasma CA 125 BLD Lab Routine Malignant neoplasm of both ovaries (HCC) 05/07/2023 8:43 AM [facility] Work Phone: End: 07-28-2024 Cancer Ag 125 [Units/volume] in Serum or Plasma CA 125 BLD Lab Routine 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) 11/12/2023 8:[address] [facility] Work Phone: Cancer Ag 125 [Units/volume] in Serum or Plasma CA 125 BLD Lab Routine 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) 12/27/2023 8:[address] [facility] Work Phone: Cancer Ag 125 [Units/volume] in Serum or Plasma CA 125 BLD Lab Routine 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) 01/17/2024 9:[address] [facility] Work Phone: Cancer Ag 125 [Units/volume] in Serum or Plasma CA 125 BLD Lab Routine 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) 01/24/2024 9:[address] [facility] Work Phone: Cancer Ag 125 [Units/volume] in Serum or Plasma CA 125 BLD Lab Routine 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) 04/20/2024 9:[address] [facility] Work Phone: Cancer Ag 125 [Units/volume] in Serum or Plasma CA 125 Lab Routine 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) 05/09/2024 8:08 AM [facility] Work Phone: Cancer Ag 125 [Units/volume] in Serum or Plasma CA 125 Lab Routine Malignant neoplasm of both ovaries (HCC) Carcinomatosis (HCC) Chemotherapy-induced neuropathy (HCC) 06/07/2024 8:13 AM [employer] [facility] Work Phone: Cancer Ag 125 [Units/volume] in Serum or Plasma CA 125 Lab Routine Malignant neoplasm of both ovaries (HCC) Carcinomatosis (HCC) Chemotherapy-induced neuropathy (HCC) 07/04/2024 8:56 AM [facility] Work Phone: Cancer Ag 125 [Units/volume] in Serum or Plasma CA 125 Lab Routine Malignant neoplasm of both ovaries (HCC) Carcinomatosis (HCC) Chemotherapy-induced neuropathy (HCC) 08/01/2024 9:02 AM [facility] Work Phone: Cancer Ag 125 [Units/volume] in Serum or Plasma CA 125 Lab Routine Malignant neoplasm of both ovaries (HCC) Carcinomatosis (HCC) Chemotherapy-induced neuropathy (HCC) 08/30/2024 9:[address] [facility] Work Phone: Cancer Ag 125 [Units/volume] in Serum or Plasma CA 125 Lab Routine Malignant neoplasm of both ovaries (HCC) Carcinomatosis (HCC) Chemotherapy-induced neuropathy (HCC) 09/15/2024 10:[address] [facility] Work Phone: Cancer Ag 125 [Units/volume] in Serum or Plasma CA 125 Lab Routine Malignant neoplasm of both ovaries (HCC) Carcinomatosis (HCC) Chemotherapy-induced neuropathy (HCC) 10/27/2024 10:[address] [facility] Work Phone: Cancer Ag 125 [Units/volume] in Serum or Plasma CA 125 Lab Routine Malignant neoplasm of both ovaries (HCC) Carcinomatosis (HCC) Chemotherapy-induced neuropathy (HCC) 11/23/2024 10:[address] [facility] Work Phone: End: 07-28-2024 CBC W Auto Differential panel - Blood CBC + DIFF Lab STAT 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) Once per month for 12 Occurrences starting 07/29/2023 until 07/28/2024 [facility] Work Phone: Comment on above: Once per month for 12 Occurrences starti ng 07/29/2023 until 07/28/2024 CBC W Ordered Manual Differential panel - Blood PATHOLOGIST INTERPRETATION WITH CBC AND DIFF Lab Routine Anemia, unspecified type 09/01/2023 2:[address] [facility] Work Phone: Chronic hepatitis differentiation between hepatitis B and C virus panel - Serum or Plasma HEP REMOTE PANEL BL Lab Routine Malignant neoplasm of prostate (HCC) 12/17/2022 7:45 AM EDT [facility] Work Phone: End: 07-28-2024 Comprehensive metabolic 2000 panel - Serum or Plasma COMP METABOLIC PANEL Lab STAT 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) Once per month for 12 Occurrences starting 07/29/2023 until 07/28/2024 [facility] Work Phone: Comment on above: Once per month for 12 Occurrences starti ng 07/29/2023 until 07/28/2024 End: 09-03-2023 Ct abdomen & pelvis w/contrast material CT ABD/PEL W IVCON Radiology Routine 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 (HCC) 1 Occurrences starting 08/04/2022 until 09/03/2023 [facility] Work Phone: Comment on above: 1 Occurrences starting 08/04/2022 until 09/03/2023 End: 10-18-2023 Ct abdomen & pelvis w/contrast material CT ABD/PEL W IVCON Radiology Routine Malignant neoplasm of both ovaries (HCC) 1 Occurrences starting 09/18/2022 until 10/18/2023 [facility] Work Phone: Comment on above: 1 Occurrences starting 09/18/2022 until 10/18/2023 End: 06-06-2024 Ct abdomen & pelvis w/contrast material CT ABD/PEL W IVCON Radiology Routine 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) 1 Occurrences starting 05/07/2023 until 06/06/2024 [facility] Work Phone: Comment on above: 1 Occurrences starting 05/07/2023 until 06/06/2024 Ct abdomen & pelvis w/contrast material CT ABD/PEL W IVCON Radiology Routine 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) 05/27/2023 9:35 AM EST [facility] Work Phone: End: 10-07-2024 CT Abdomen and Pelvis W contrast IV CT ABD/PEL W IVCON Radiology Routine Malignant neoplasm of both ovaries (HCC) Carcinomatosis (HCC) 1 Occurrences starting 09/08/2023 until 10/07/2024 [facility] Work Phone: Comment on above: 1 Occurrences starting 09/08/2023 until 10/07/2024 CT Abdomen and Pelvi s W contrast IV CT ABD/PEL W IVCON Radiology Routine Malignant neoplasm of both ovaries (HCC) Carcinomatosis (HCC) 09/22/2023 9:[address] [facility] Work Phone: End: 12-12-2024 CT Abdomen and Pelvis W contrast IV CT ABD/PEL W IVCON Radiology Routine 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) 1 Occurrences starting 01/17/2024 until 02/15/2025 [facility] Work Phone: Comment on above: 1 Occurrences starting 01/17/2024 until 02/15/2025 CT Abdomen and Pelvi s W contrast IV CT ABD/PEL W IVCON Radiology Routine 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) 01/24/2024 11:[address] [facility] Work Phone: End: 03-30-2025 CT Abdomen and Pelvis W contrast IV CT ABD/PEL W IVCON Radiology Routine 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) 1 Occurrences starting 02/29/2024 until 03/30/2025 [facility] Work Phone: Comment on above: 1 Occurrences starting 02/29/2024 until 03/30/2025 CT Abdomen and Pelvi s W contrast IV CT ABD/PEL W IVCON Radiology Routine 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) 03/22/2024 10:19 AM EDT [facility] Work Phone: End: 07-07-2025 CT Abdomen and Pelvis W contrast IV CT ABD/PEL W IVCON Radiology Routine Malignant neoplasm of both ovaries (HCC) Carcinomatosis (HCC) 1 Occurrences starting 06/07/2024 until 07/07/2025 [facility] Work Phone: Comment on above: 1 Occurrences starting 06/07/2024 until 07/07/2025 CT Abdomen and Pelvi s W contrast IV CT ABD/PEL W IVCON Radiology Routine Malignant neoplasm of both ovaries (HCC) Carcinomatosis (HCC) 06/15/2024 10:16 AM EST [facility] Work Phone: CT Abdomen and Pelvi s W contrast IV CT ABD/PEL W IVCON Radiology Routine 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) 07/28/2024 3:08 PM EST [facility] Work Phone: End: 09-27-2025 CT Abdomen and Pelvis W contrast IV CT ABD/PEL W IVCON Radiology STAT 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) Malignant ascites (HCC) 01/03/2025 11:45 AM [facility] End: 10-07-2024 CT Chest W contrast IV CT CHEST W IVCON Radiology Routine Malignant neoplasm of both ovaries (HCC) Carcinomatosis (HCC) 1 Occurrences starting 09/08/2023 until 10/07/2024 [facility] Work Phone: Comment on above: 1 Occurrences starting 09/08/2023 until 10/07/2024 CT Chest W contrast IV CT CHEST W IVCON Radiology Routine Malignant neoplasm of both ovaries (HCC) Carcinomatosis (HCC) 09/22/2023 9:[address] [facility] Work Phone: End: 12-11-2024 CT Chest W contrast IV CT CHEST W IVCON Radiology Routine 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) 1 Occurrences starting 11/12/2023 until 12/11/2024 [facility] Work Phone: Comment on above: 1 Occurrences starting 11/12/2023 until 12/11/2024 CT Chest W contrast IV CT CHEST W IVCON Radiology Routine 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 End: 07-07-2025 CT Chest W contrast IV CT CHEST W IVCON Radiology Routine Malignant neoplasm of both ovaries (HCC) Carcinomatosis (HCC) 1 Occurrences starting 06/07/2024 until 07/07/2025 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) Malignant ascites (HCC) 01/03/2025 11:[address] [facility] Work Phone: End: 10-18-2023 CT CHEST W IVCON CT CHEST W IVCON Radiology Routine Malignant neoplasm of both ovaries (HCC) 1 Occurrences starting 09/18/2022 until 10/18/2023 [facility] Work Phone: Comment on above: 1 Occurrences starting 09/18/2022 until 10/18/2023 End: 06-05-2024 CT CHEST W IVCON CT CHEST W IVCON Radiology Routine 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) 1 Occurrences starting 05/07/2023 until 06/05/2024 [facility] Work Phone: Comment on above: 1 Occurrences starting 05/07/2023 until 06/05/2024 CT CHEST W IVCON CT CHEST W IVCO N Radiology Routine 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 Comment on above: Ordered: 06/30/2024 End: 01-30-2023 Dxa bone density study 1/> sites axial skel DXA-AXIAL SKELETON Radiology Routine Osteopenia, unspecified location Unspecified menopausal and perimenopausal disorder 1 Occurrences starting 12/31/2021 until 01/30/2023 [facility] Work Phone: Comment on above: 1 Occurrences starting 12/31/2021 until 01/30/2023 End: 05-07-2024 Echocardiography ECHO Cardiology Routine Malignant neoplasm of both ovaries (HCC) Encounter for monitoring cardiotoxic drug therapy 1 Occurrences starting 05/07/2023 until 05/07/2024 [facility] Work Phone: Comment on above: 1 Occurrences starting 05/07/2023 until 05/07/2024 End: 07-26-2025 EGD DIAGNOSTIC EGD DIAGNOSTIC Endoscopy Routine Hemorrhoids, unspecified hemorrhoid type Rectal bleeding Dysphagia, unspecified type 1 Occurrences starting 07/26/2024 until 07/26/2025 [facility] Work Phone: Comment on above: 1 Occurrences starting 07/26/2024 until 07/26/2025 End: 07-26-2025 Flexible sigmoidoscopy study COLONOSCOPY DIAGNOSTIC Endoscopy Routine Hemorrhoids, unspecified hemorrhoid type Rectal bleeding Dysphagia, unspecified type 1 Occurrences starting 07/26/2024 until 07/26/2025 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) Once per week for 52 Occurrences starting 07/26/2024 until 07/26/2025 [facility] Work Phone: Comment on above: Once per week for 52 Occurrences startin g 07/26/2024 until 07/26/2025 Guidance for paracen tesis of Peritoneum IMAGING GUIDED PARACENTESIS Radiology STAT Carcinoma of fallopian tube, 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 Comment on above: Once per week for 52 Occurrences startin g 07/27/2024 until 08/26/2025 Hemoglobin A1c in Blood HGB A1C Lab Routine Impaired fasting glucose 01/19/2022 8:[address] [facility] Work Phone: Hemoglobin A1c in Blood HGB A1C Lab Routine Impaired fasting glucose 08/04/2022 9:14 AM [facility] Work Phone: Hemoglobin A1c in Blood HGB A1C Lab Routine Impaired fasting glucose 03/04/2023 9:[address] [facility] Work Phone: Hemoglobin A1c in Blood HGB A1C Lab Routine Impaired fasting glucose 08/26/2023 10:27 AM [facility] Work Phone: Hemoglobin A1c in Blood HEMOGLOB IN A1C Lab Routine Impaired fasting glucose 08/30/2024 9:[address] [facility] Work Phone: Hepatitis B virus co re Ab [Presence] in Serum HEP B CORE AB TOTAL Lab Routine Malignant neoplasm of prostate (HCC) 12/17/2022 7:[address] [facility] Work Phone: Hepatitis B virus telles rface Ab [Presence] in Serum HEP B SURF AB Lab Routine Malignant neoplasm of prostate (HCC) 12/17/2022 7:[address] [facility] Work Phone: Hepatitis B virus telles rface Ag [Presence] in Serum HEP B SURF AG SCRN Lab Routine Malignant neoplasm of prostate (HCC) 12/17/2022 7:[address] [facility] Work Phone: Hepatitis C virus Ab [Presence] in Serum HEPATITIS C ANTIBODY IA WITH CONFIRMATION Lab Routine Malignant neoplasm of prostate (HCC) 12/17/2022 7:[address] [facility] Work Phone: LIPID PANEL, NONFASTING LIPID PA JASWINDER, NONFASTING Lab Routine Essential hypertension Mixed hyperlipidemia 01/19/2022 8:[address] [facility] Work Phone: LIPID PANEL, NONFASTING LIPID PA JASWINDER, NONFASTING Lab Routine Essential hypertension Mixed hyperlipidemia 08/04/2022 9:14 AM EST [facility] Work Phone: LIPID PANEL, NONFASTING LIPID PA JASWINDER, NONFASTING Lab Routine Mixed hyperlipidemia 03/04/2023 9:11 AM EDT [facility] Work Phone: LIPID PANEL, NONFASTING LIPID PA JASWINDER, NONFASTING Lab Routine Essential hypertension Mixed hyperlipidemia 08/30/2024 9:[address] [facility] End: 08-09-2023 YAYO SCREENING W SERAFIN YAYO SCREENING W SERAFIN Radiology Routine Encounter for screening mammogram for malignant neoplasm of breast 1 Occurrences starting 07/10/2022 until 08/09/2023 [facility] Work Phone: Comment on above: 1 Occurrences starting 07/10/2022 until 08/09/2023 OCCULT BLD EXAM-DIAG OCCULT BLD EXAM-DIAG Microbiology Routine Iron deficiency anemia due to chronic blood loss Ordered: 09/02/2023 [facility] Work Phone: Comment on above: Ordered: 09/02/2023 PATHOLOGIST INTERPRETATION CBC/DIFF PATHOLOGIST INTERPRETATION CBC/DIFF Lab Routine Anemia, unspecified type 09/01/2023 2:06 PM EDT [facility] Work Phone: Patient referral [facility] Work Phone: Protein [Mass/time] in 24 hour Urine PROTEIN, 24 HOUR URINE Lab Routine 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) Ordered: 05/25/2024 [facility] Work Phone: Comment on above: Ordered: 05/25/2024 End: 10-18-2023 XR KNEE LIMITED 2V AP/LAT LEFT XR KNEE LIMITED 2V AP/LAT LEFT Radiology Routine Acute pain of both knees 1 Occurrences starting 09/18/2022 until 10/18/2023 [facility] Work Phone: Comment on above: 1 Occurrences starting 09/18/2022 until 10/18/2023 XR KNEE LIMITED 2V A P/LAT LEFT XR KNEE LIMITED 2V AP/LAT LEFT Radiology Routine Acute pain of both knees 09/18/2022 11:11 AM EDT [facility] Work Phone: End: 10-18-2023 XR KNEE LIMITED 2V AP/LAT RIGHT XR KNEE LIMITED 2V AP/LAT RIGHT Radiology Routine Acute pain of both knees 1 Occurrences starting 09/18/2022 until 10/18/2023 [facility] Work Phone: Comment on above: 1 Occurrences starting 09/18/2022 until 10/18/2023 XR KNEE LIMITED 2V A P/LAT RIGHT XR KNEE LIMITED 2V AP/LAT RIGHT Radiology Routine Acute pain of both knees 09/18/2022 11:10 AM EDT [facility] Work Phone: [facility] Immunizations Immunization Date Immunization Notes Care Provider Christelle england 05-19-2023 COVID-19 vaccine, ag e 12+ yr, season (PFIZER-BIONTECH) Immunization [place] Work Phone: [facility] Work Phone: 04-24-2023 influenza (HD-IIV4) vaccine, age 65+ yr, high dose, quadrivalent, PF (FLUZONE HIGH-DOSE) [facility] Work Phone: 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 Work Phone: 04-15-2022 influenza, high-dose , quadrivalent vaccine (FLUZONE HIGH DOSE QUADRIVALENT) Mi Nurse Work Phone: [facility] Work Phone: 12-30-2017 pneumococcal polysaccharide vaccine, 23 valent Js Cruz DO Work Phone: [facility] 08-13-2016 pneumococcal conjuga te vaccine, 13 valent Js Cruz DO Work Phone: [facility] Work Phone: 09-12-2013 zoster vaccine, live Js elder DO Work Phone: [facility] Work Phone: 11-29-2010 tetanus toxoid, redu mariah diphtheria toxoid, and acellular pertussis vaccine, adsorbed Js Cruz DO Work Phone: [facility] Work Phone: 07-17-2002 tetanus and diphther ia toxoids, adsorbed, preservative free, for adult use (2 Lf of tetanus toxoid and 2 Lf of diphtheria toxoid) Js Cruz DO Work Phone: [facility] Payers Date Payer Category Payer Self-pay 2014 Medicare MEDICARE MEDICAR E A AND B [id number] 2014-Present [phone] [address] [address] [place] [address] Medicare [id number] 2014 Medicare [id number] 2014 Private Health Insurance [employer] A ETNA MEDICARE SUPPLEMENT [id number] 2014-Present [phone] [address] [address] [place] [address] Indemnity [id number] 2014 Private Health Insurance [id number] 2014 Medicare [id number] 2014 Private Health Insurance [facility] [id number] 2007 Unknown MMO/PRINCIPAL FI NANCIAL [facility] [id number] Unknown [id number] Unknown [id number] Social History Date Type Detail Facility Start: 01-29-2022 End: 07-02-2023 Tobacco smoking status NHIS Never smoked tobacco [facility] Start: 07-31-2021 End: 06-07-2024 Alcohol intake Current non-drinker of alcohol (finding) [facility] Start: 1950 Sex Assigned At Not on file [facility] Start: 08-22-2021 End: 04-21-2022 Exposure to SARS-CoV-2 (event) Not sure [facility] Start: 01-29-2022 End: 07-02-2023 Tobacco use and exposure Smokeless tobacco non-user [facility] Start: 03-30-2022 End: 04-09-2022 Exposure to SARS-CoV-2 (event) Unable to assess [facility] Start: 05-26-2020 End: 12-07-2022 History of Social function [facility] Work Phone: Start: 05-26-2020 End: 12-07-[address] [facility] Work Phone: Adult Depression Screening Assessment 0 [facility] Work Phone: Start: 06-01-2023 Tobacco smoking stat us NHIS Unknown if ever smoked [facility] Start: 1950 Sex Assigned At Female W [facility] (I/We) worried wheth er (my/our) food would run out before (I/we) got money to buy more. Never true [facility] Work Phone: In the past 12 month s, was there a time when you were not able to pay the mortgage or rent on time? No [facility] Work Phone: Start: 06-28-2024 End: 11-23-2024 Alcoholic beverage intake Lifetime non-drinker (finding) [facility] How hard is it for y ou to pay for the very basics like food, housing, medical care, and heating Somewhat hard [facility] Work Phone: How often to you hav e a drink containing alcohol? Never [facility] NEGATED: Highlighted rowStart: DIPAKF History of tobacco use Passive smoker [facility] Medical Equipment Procedure Code Equipment Code Equipment Origin al Text Equipment Identifier Dates Port [employer] M ri 8fr Plastic Polyurethane Implantable Infusion - [id number] Start: 11-09-2018 Functional Status Date Assessment Result Facility 10-14-2024 Are you deaf, or do you have serious difficulty hearing No 10/14/2024 11:36 AM Kaylyn Desouza RN No [facility] 10-14-2024 Are you blind, or do you have serious difficulty seeing, even when wearing glasses No 10/14/2024 11:36 AM Kaylyn Desouza RN [facility] 10-14-2024 Do you have serious difficulty walking or climbing stairs No 10/14/2024 11:36 AM Kaylyn Desouza RN [facility] 10-14-2024 Do you have difficul ty dressing or bathing No 10/14/2024 11:36 AM Kaylyn Desouza RN [facility] 10-14-2024 Because of a physica l, mental, or emotional condition, do you have difficulty doing errands alone such as visiting a physician's office or shopping No 10/14/2024 11:36 AM Kaylyn Desouza RN [facility] 09-05-2024 Total score [AUDIT-C] 0 09/06/19 8:28 AM Gladis Hilton MA [facility] 07-20-2023 Are you deaf, or do you have serious difficulty hearing No 07/20/2023 1:22 PM Alma Rosa Alonso, SHEILA No [facility] 07-20-2023 Are you blind, or do you have serious difficulty seeing, even when wearing glasses No 07/20/2023 1:22 PM Alma Rosa Alonso, SHEILA No [facility] 07-20-2023 Do you have serious difficulty walking or climbing stairs No 07/20/2023 1:22 PM Alma Rosa Alonso, SHEILA No [facility] 07-20-2023 Do you have difficul ty dressing or bathing No 07/20/2023 1:22 PM Alma Rosa Alonso, SHEILA No [facility] 07-20-2023 Because of a physica l, mental, or emotional condition, do you have difficulty doing errands alone such as visiting a physician's office or shopping No 07/20/2023 1:22 PM Alma Rosa Alonso, SHEILA No [facility] Mental Status Date Assessment Result Facility 11-03-2024 Cognitive function Voice/Name [facility] Work Phone: 10-14-2024 Because of a physica l, mental, or emotional condition, do you have serious difficulty concentrating, remembering, or making decisions No 10/14/2024 11:36 AM COLBYT Kaylyn Ordaz RN No [facility] 07-20-2023 Because of a physica l, mental, or emotional condition, do you have serious difficulty concentrating, remembering, or making decisions No 07/20/2023 1:22 PM Alma Rosa Alonso RN No [facility] 06-01-2023 Cognitive function Level Of Cons ciousness Awake;Alert;Appropriate;Fol lows Commands [facility] Work Phone: Clinical Notes 12-13-2015 to 01-03-2025 Reef Rita Bynum, (R) - 01/03/2025 11:00 AM Lilia Beach RN - 01/03/2025 10:14 AM EDTTelephone Johana - Kristan Marina LPN - 01/02/2025 9:36 AM EDTPatient Instructions Note Date & Type Note Facility 01-03-2025 History of Presen t illness Narrative Radiology Service Progress Note PATIENT NAME: Savana Patel DATE OF SERVICE: January 03, 2025 TIME: 2:57 PM PATIENT IDENTITY VERIFICATION COMPLETED USING TWO (2) IDENTIFIERS: Name and Date of confirmed by patient verbally. FALL SCREENING: Has the patient had 2 falls in the last year or 1 fall with injury or currently using an Ambulatory Assistive Device (Walker, Cane, Wheelchair, Crutches, etc.)? No PATIENT GENDER DATA: Assigned female at . status: : No status: NO. PATIENT RELEVANT IMPLANT DATA REVIEWED: Yes PATIENT PRESENTS WITH AN IMPLANTABLE OR ATTACHED FRETTED STRING INSTRUMENT REPAIRER: No RADIOLOGY DEPARTMENT: CT; Exam(s) Completed: Chest Abdomen Pelvis PERIPHERAL IV DATA: power port accessed by hemoc SIGNED BY: RT Laurie(R) January 03, 2025 2:57 PM documented in this encounter [facility] 01-03-2025 History of Presen t illness Narrative Patient is here for IVAD port flush per Nursing [facility] protocol. IVAD is located in right upper chest. Site cleansed with Chloraprep IVAD accessed with a #20 gauge 3/4 non-coring Gripper needle Blood Return: Good Flushed with: 20 ml Normal Saline AFter CT scan Non-coring needle removed. Paper tape applied to puncture site. Port site negative for redness, edema or tenderness. Patient tolerated procedure well. documented in this encounter [facility] 01-02-2025 Telephone encounter Note Spoke with pt. Informed yes she can take her Lynparza as directed before the ct. Kristan Marina LPN [facility] 01-02-2025 Miscellaneous Notes Spoke with pt. Informed yes she can take her Lynparza as directed before the ct. Kristan Marina LPN Patient called asking if she is able to take Lynparza while having CT tomorrow. Please advise patient. documented in this encounter [facility] 01-02-2025 Telephone encounter Note Patient called asking if she is able to take Lynparza while having CT tomorrow. Please advise patient. [facility] Work Phone: 12-19-2024 Telephone encounter Note Pt. Notified lab draws are reduced to once weekly, now every Wednesday only. Kristan Marina LPN [facility] 12-19-2024 Miscellaneous Notes Pt. Notified lab draws are reduced to once weekly, now every Wednesday only. Kristan Marina LPN Cancelled blood work going forward Rupal Marshall Yes, can change to once weekly going forward. Js Cruz DO Pt. States the last time her HGB was up she didn't need to have the 2nd draw on . Wondering if she can skip this week? Kristan Marina LPN documented in this encounter [facility] 12-19-2024 Telephone encounter Note Cancelled blood work going forward Rupal Marshall [facility] 12-19-2024 Telephone encounter Note Yes, can change to once weekly going forward. Js Cruz DO [facility] 12-19-2024 Telephone encounter Note Pt. States the last time her HGB was up she didn't need to have the 2nd draw on . Wondering if she can skip this week? Kristan Marina LPN [facility] 12-19-2024 Telephone encounter Note Pt. Notified to continue Lynparza as directed. Voiced understanding. Kristan Marina LPN [facility] 12-19-2024 Miscellaneous Notes Pt. Notified to continue Lynparza as directed. Voiced understanding. Kristan Marina LPN ----- Message from Js Cruz DO sent at 12/18/2024 5:20 PM EDT ----- Hemoglobin trending better. Continue current dose of Lynparza and recheck blood counts as scheduled. Hemoglobin trending better. Continue current dose of Lynparza and recheck blood counts as scheduled. documented in this encounter [facility] 12-19-2024 Telephone encounter Note ----- Message from Js Cruz DO sent at 12/18/2024 5:20 PM EDT ----- Hemoglobin trending better. Continue current dose of Lynparza and recheck blood counts as scheduled. [facility] 12-18-2024 Progress note Formatting of t his note might be different from the original. Hemoglobin trending better. Continue current dose of Lynparza and recheck blood counts as scheduled. [facility] 12-18-2024 History of Presen t illness Narrative Patient is here for IVAD port flush/blood draw per Nursing [facility] protocol. IVAD is located in right upper chest. Site cleansed with Chloraprep IVAD accessed with a #20 gauge 3/4 non-coring Gripper needle Flush with 5cc's Normal Saline. Blood Return: Good. 10 cc's blood aspirated and discarded. Blood drawn for CBC. Flushed with: 20 ml Normal Saline. Non-coring needle removed. Paper tape applied to puncture site. Site negative for redness, edema or tenderness. Patient tolerated procedure well. documented in this encounter [facility] 12-06-2024 History of Presen t illness Narrative Scan on 12/01/2024 3:26 PM by Provider, CITLALY Banerjee: Consultation - Ophthalmology documented in this encounter [facility] 12-04-2024 Telephone encounter Note Patient is aware and verbalized understanding. Beatrice Chu LPN [facility] 12-04-2024 Miscellaneous Notes Patient is aware and verbalized understanding. Beatrice Chu LPN Continue Lynparza 2 tablets once daily recheck CBC in a week. Js Cruz DO documented in this encounter [facility] 12-04-2024 Telephone encounter Note Continue Lynparza 2 tablets once daily recheck CBC in a week. Js Cruz DO [facility] 11-30-2024 Telephone encounter Note Pt. Notified to decrease her lynparza to 2 tablets once daily.recheck labs next week. Pt. Voiced understanding. Kristan Marina LPN [facility] 11-30-2024 Miscellaneous Notes Pt. Notified to decrease her lynparza to 2 tablets once daily.recheck labs next week. Pt. Voiced understanding. Kristan Marina LPN Can let her know anemia is better but WBC count lower. Decrease Lynparza to 2 tablets once daily and recheck CBC in a week. Js Cruz DO documented in this encounter [facility] 11-30-2024 Telephone encounter Note Can let her know anemia is better but WBC count lower. Decrease Lynparza to 2 tablets once daily and recheck CBC in a week. Js Cruz DO [facility] 11-27-2024 Telephone encounter Note Patient scheduled for 1 unit of PRBC 11/28/2024 @ 11:15, [facility]. Orders faxed. Patient and lab aware. She was also instructed to decrease her Lynparza to 2 tablets in the AM and 1 tablet in the PM. Beatrice Chu LPN [facility] 11-27-2024 Miscellaneous Notes Patient scheduled for 1 unit of PRBC 11/28/2024 @ 11:15, [facility]. Orders faxed. Patient and lab aware. She was also instructed to decrease her Lynparza to 2 tablets in the AM and 1 tablet in the PM. Beatrice Chu LPN documented in this encounter [facility] 11-27-2024 History of Presen t illness Narrative Patient is here for IVAD port flush/blood draw per Nursing [facility] protocol. IVAD is located in right upper chest. Site cleansed with Chloraprep IVAD accessed with a #20 gauge 3/4 non-coring Gripper needle Flush with 5cc's Normal Saline. Blood Return: Good. 10 cc's blood aspirated and discarded. Blood drawn for CBC and CMP. Flushed with: 20 ml Normal Saline. Non-coring needle removed. Paper tape applied to puncture site. Site negative for redness, edema or tenderness. Patient tolerated procedure well. documented in this encounter 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 Initially underwent pelvic ultrasound on 09/01/2018. Uterus appeared normal. The endometrial stripe was 2.3 mm. Right and left ovaries appeared normal. However there was a large amount of free fluid in the pelvic cul-de-sac. CT A/P 09/08/2018: Liver: No mass. Homogeneous texture. Biliary: No ductal dilatation is seen. Gallbladder is unremarkable. Spleen: Spleen is unremarkable. Pancreas: No mass or duct dilation. Adrenals: Adrenal glands are unremarkable. Kidneys: No mass, calculus or hydronephrosis is seen. GI tract: No bowel dilatation is seen. No evidence of obstruction. Lymph nodes: No evidence of adenopathy. Mesentery/Peritoneum: There is increased soft tissue density best seen in the coronal views extending from the lower abdomen into the pelvic area. This could represent peritoneal involvement with tumor. This is seen on coronal image 37 and axial images 99 through 122. It extends across the anterior aspect of the pelvic area seen on axial image 124. Vasculature: No evidence of dilatation of the abdominal aorta. CT PELVIS: Pelvis: There is a large amount of free fluid or loculated fluid in the pelvis suggesting that there could be an enhancing rim surrounding this fluid is seen on image 127 and measures 10.6 x 6.1 cm. Bones/Soft Tissues: No significant findings identified. Lower thorax: Unremarkable. CA125 was 1153 U/mL. Had employee relations consultant onc evaluation and CT chest unremarkable. Underwent exploratory laparotomy, optimal tumor bulking, total abdominal hysterectomy, bilateral salpingo-oophorectomy, resection of bladder cul-de-sac and pelvic peritoneal disease along with resection of omental caking with super colic omentectomy on 10/06/2018. Pathology: FINAL DIAGNOSIS 1. 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 2. 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 3. Uterus, cervix, bilateral ovaries and fallopian tubes, and bladder/pelvic peritoneum, hysterectomy and excision (C) Left fallopian tube - High grade serous carcinoma (see comment and synoptic report). Right fallopian tube - Positive for involvement by high grade serous carcinoma. Bilateral ovaries - Positive for involvement by high grade serous carcinoma. Uterine serosa - Positive for involvement by high grade serous carcinoma. Bladder/pelvic peritoneum - Positive for involvement by high grade serous carcinoma. Endometrium - Inactive endometrium. Myometrium - Negative for malignancy. Cervix - Negative for malignancy. SYNOPTIC REPORT OF BRAUN PATHOLOGIC FINDINGS UTERUS, CERVIX, BILATERAL TUBES AND OVARIES, BLADDER, AND PELVIC PERITONEUM: Procedure: Total hysterectomy and bilateral salpingo-oophorectomy Omentectomy Peritoneal biopsies Specimen Integrity: Left fallopian tube serosa intact Primary Tumor Site: Left fallopian tube Ovarian Surface Involvement: Present Specify laterality (if applicable): Bilateral Fallopian Tube Surface Involvement: Present Specify laterality (if applicable): Bilateral Tumor Size: Greatest dimension: 1.6 cm Histologic Type: Serous carcinoma Histologic Grade: Not applicable Two-tier grading System: High grade Implants: Not applicable/not sampled Involvement of other tissues/organs: Right ovary Left ovary Right fallopian tube Pelvic peritoneum Omentum Other organs/tissues (specify): Uterine serosa Largest extrapelvic peritoneal focus, macroscopic (greater than 2 cm) Peritoneal Ascitic Fluid, Not submitted/unknown Treatment Effect: No known presurgical therapy Regional Lymph Nodes: No nodes submitted or found Pathologic Stage Classification (pTNM, AJCC 8th ed) TNM Descriptors: Not applicable Primary Tumor (pT): pT3c: Macroscopic peritoneal metastasis beyond pelvis more than 2 cm in greatest dimension with or without metastasis to the retroperitoneal lymph nodes (includes extension to capsule of liver and spleen without parenchymal involvement of either organ) Regional Lymph Nodes (pN): pNX: Cannot be assessed Distant Metastasis (pM): Not applicable/Not confirmed pathologically in this case Previous therapy: 1) 11/11/2018 - 02/03/2019: PACLITAXEL 80 D1,8,15 CARBOPLATIN 6 D1 - Q21D s/p 4 cycles. *neutropenia/thrombocytopenia causing treatment delay. Neulasta OnPro added; switch to Q21D dosing of Taxol with cycles 5 & 6 02/23/2019 - 03/17/2019: PACLITAXEL 135 D1 CARBOPLATIN 6 D1 - Q21D s/p 2 cycles. 2) 06/30/2019 - 06/20/2021: olaparib (LYNPARZA) 150 mg tablet; 300 mg BID. CTs 06/29/2022: Mesentery/Peritoneum: * New 0.4 cm anterior mesenteric fat nodule (8:57) * Confluent infiltrative soft tissue in RIGHT false pelvis surrounding the terminal ileum and ascending colon (cecum deep in pelvis) and probably affecting the sigmoid colon; difficult to precisely measure as it envelops bowel but including bowel measures approximately 4.5 x 2.9 cm (8:101); process extends to the RIGHT psoas muscle * Several small subtle anterior mesenteric fat nodules * No free abdominal fluid MRI pelvis 07/02/2022: Similar imaging findings since CT 06/29/2022, redemonstrating pelvic peritoneal/serosal carcinomatosis involving segments of bowel predominantly in the right anterior pelvis, with confluent soft tissue encasing the proximal ascending colon and causing relative upstream dilation of the low-lying cecum suggesting developing colonic obstruction. No small bowel dilation. No pelvic lymphadenopathy. 3) Carboplatin/paclitaxel x6 cycles. Completed 11/02/2022. Stable disease. 4) Doxil tolerated very well. PD 05/27/2023. 5) Elahere. PD. CTs 05/27/2023 demonstrated progression of disease with an increase in size of irregular soft tissue density in the right pelvis as well as increasing thickening of the wall of the cecum. Presented to the ED at [facility] about a week later. CT scan demonstrated possible cecal volvulus. She was transferred to [facility]. Managed nonsurgically with NG decompression. NG was removed on her second hospital day and her diet was advanced to clear liquids and then the following day advance to full liquids then to gastrointestinal soft diet on day 3. She was discharged home with plans for outpatient follow-up and colectomy with possible cytoreduction. Underwent open right hemicolectomy on 07/14/2023. Initially Dr. Dawson performed laparotomy and excised several lower pelvic lesions. Dr. Jes maldonado performed the right hemicolectomy. He observed kinking of the cecum, proximal ascending colon and some of the distal ileum coming together causing narrowing of the pedicle around which the colon was volvulized. Pathology: FINAL DIAGNOSIS A. 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 B. 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 C. 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 - Background small bowel with acute serositis, possibly procedure-related. - Appendix with fibrous obliteration. - Thirteen lymph nodes, negative for malignancy (0/13). D. Fascia, anterior abdominal wall, excision: - Fat necrosis with associated dystrophic calcification, negative for malignancy. 6) Topotecan with bevacizumab. Current therapy: 1) Olaparib. Presents for ongoing oncologic management. Interim history: Completed a course of parenteral iron on 11/14. I feel better. No longer shaky on legs. No black/bloody stools. Appetite, good. Would like to increase her diet. No abdominal pain. Taking Senna and GasX regularly. Much less gas since stopping potassium. Stable fingertip neuropathy. PMH, medications and allergies personally reviewed by me today. Any changes documented in appropriate section. ROS: Constitutional: Denies episodes of fever and night sweats. Neuro: Denies MACHADO. HEENT: No recent change in voice, vision or hearing. Resp: No cough, wheeze or hemoptysis. CVS: Denies exertional chest pain, PND, orthopnea and LE edema. GI: See above. : Denies dysuria or gross hematuria. Endo: Denies hot flashes. Musculoskeletal: Denies bone, back, joint and muscular pain. Derm: Denies rash. Denies jaundice and diffuse pruritis. Heme: Denies unusual bleeding and unexplained bruising. Psych: Normal mood. PHYSICAL EXAM: Vitals: Blood pressure 119/77, pulse 67, temperature 36.7 C (98.1 F), weight 48.1 kg (106 lb 0.7 oz), SpO2 100%. Pale but well-appearing and in no acute distress. EYES: Sclerae are anicteric bilaterally. LYMPHATIC: No palpable cervical or supraclavicular adenopathy. RESPIRATORY: Resonant to percussion all throughout. CARDIOVASCULAR: Rhythm is regular. ABDOMEN: The abdomen is non-distended. No fluid wave. SKIN: No jaundice or rash. NGS/biomarkers/auto haulaway driver mutation analyses: BRCA2 mutation (tested 04/2019). Baseline CA125 1153 U/mL. FOLR1 IHC results--100% of cells stained +2-3+4 ASSESSMENT/PLAN: (C56.3) Malignant neoplasm of both ovaries (HCC) (primary encounter diagnosis) (C80.0) Carcinomatosis (HCC) (R18.0) Malignant ascites (G62.0, T45.1X5A) Chemotherapy-induced neuropathy (HCC) Anemia. Assessment: -Anemia from chronic disease and Lynparza. -Tolerating Lynparza to 300 mg twice daily symptomatically well. - Anemia responded initially to parenteral iron. - Discussed plan to continue monitoring and transfuse as necessary. - Discussed plan as outlined below. Plan: -Continue Lynparza 300 mg BID. -Weekly CBC/possible transfusion. -OV in about a month. -Continue every 2-week ultrasound with possible paracentesis. -Monitor CA125. -CTs in about a month. Portions of this documentation were copied and pasted from my previous office visit note dated 10/27/2024 in order to provide a cohesive continuity of the history. The note has been reviewed and edited and updated as necessary. Js Cruz DO documented in this encounter [facility] 11-17-2024 Telephone encounter Note Care Coordination Triage Note [facility] Situation: Patient reports Other gas pains Background: On Lynparza, resumed 10/23. On 10/31 started BID dosing. Patient started potassium on 10/24. Assessment: GENERALIZED PAIN Where is the pain? In the pit of my stomach a little bit above the belly button and the gas pains just shoot from way down low and up my side. Gas pains have subsided since taking gas-x. Patient stated her abdomen feels sore. When did you first notice the pain? 11/16 How intense is the pain right now (scale of 1-10)? -01/28 How do you describe the pain: sharp Is the pain constant or intermittent? Intermittent What makes it better? Gas-x, heating pad helps sometimes if it gets into my back What makes it worse? No Have you had this pain before? no What are you taking anything for the pain? Took gas-x, Zofran, and Lynparza. Today: hasn't taken anything today Are you doing anything else to help with the pain other than medications? No Episode of emesis last night yellowish-brownish, took a nausea pill which helped. Patient denies feeling nauseous today. Patient stated she has missed a couple of days of Prilosec, missed last night. Denies feeling heartburn or reflux symptoms. Last BM was yesterday morning; loose/solid and a lot of gas. Has taken 4 senna for constipation. Abdomen-- a little bit hard, it's not rock solid. Patient feels her abdomen looks a little bloated or distended nothing major Fever/chills: no Appetite: fair- limited on what she can eat Fluid intake: adequate Recommendations: Per RNCC, spoke to Amy. Discontinue potassium. Take omeprazole daily. If no improvement in symptoms, contact after hour rene or Dr. Cote's office for further guidance. Patient stated understanding. Doreen Jerome RN November 17, 2024 3:[address] [facility] 11-17-2024 Miscellaneous Notes Care Coordination Triage Note [facility] Situation: Patient reports Other gas pains Background: On Lynparza, resumed 10/23. On 10/31 started BID dosing. Patient started potassium on 10/24. Assessment: GENERALIZED PAIN Where is the pain? In the pit of my stomach a little bit above the belly button and the gas pains just shoot from way down low and up my side. Gas pains have subsided since taking gas-x. Patient stated her abdomen feels sore. When did you first notice the pain? 11/16 How intense is the pain right now (scale of 1-10)? -01/28 How do you describe the pain: sharp Is the pain constant or intermittent? Intermittent What makes it better? Gas-x, heating pad helps sometimes if it gets into my back What makes it worse? No Have you had this pain before? no What are you taking anything for the pain? Took gas-x, Zofran, and Lynparza. Today: hasn't taken anything today Are you doing anything else to help with the pain other than medications? No Episode of emesis last night yellowish-brownish, took a nausea pill which helped. Patient denies feeling nauseous today. Patient stated she has missed a couple of days of Prilosec, missed last night. Denies feeling heartburn or reflux symptoms. Last BM was yesterday morning; loose/solid and a lot of gas. Has taken 4 senna for constipation. Abdomen-- a little bit hard, it's not rock solid. Patient feels her abdomen looks a little bloated or distended nothing major Fever/chills: no Appetite: fair- limited on what she can eat Fluid intake: adequate Recommendations: Per RNCC, spoke to Amy. Discontinue potassium. Take omeprazole daily. If no improvement in symptoms, contact after hour number or Dr. Cote's office for further guidance. Patient stated understanding. Doreen Jerome RN November 17, 2024 3:12 PM States the gas pains are getting worse. Gas pain that started yesterday. Took Gas-X this morning. Says it helped a little bit Asks if it could be from her lynparza or potassium but has been on for several months. Notes yesterday she had abd distention. She says she did not eat anything unusual yesterday and in fact she is on a strict diet and does not deviate. She states she typically has normal BM's, but has not had one since yesterday morning. She says pain yesterday was an 8 and today rates her pain. She states she did vomit last night. Denies fevers. Denies any new medications. Rut Mcintyre LPN Left VM to return call to discuss symptoms. Rut Mcintyre LPN Patient called stating she has been having gas/indigestion which causes vomiting at night. She did not take potassium today. She is questioning if it is due to potassium or lynparza. documented in this encounter [facility] 11-17-2024 Telephone encounter Note SOCIAL WORK FOLLOW UP NOTE: [facility] Date of service: November 17, 2024 Fax received this date from [employer], who provides pt's Lynparza, requesting an updated medicaiton list and pt allergies. Form completed and faxed back to [employer] this date. Sent to internal scanning. MALA Mcguire [facility] 11-17-2024 Miscellaneous Notes SOCIAL WORK FOLLOW UP NOTE: [facility]ER CENTER Date of service: November 17, 2024 Fax received this date from [employer], who provides pt's Lynparza, requesting an updated medicaiton list and pt allergies. Form completed and faxed back to company this date. Sent to internal scanning. MALA Mcguire documented in this encounter [facility] 11-17-2024 Telephone encounter Note States the gas pains are getting worse. Gas pain that started yesterday. Took Gas-X this morning. Says it helped a little bit Asks if it could be from her lynparza or potassium but has been on for several months. Notes yesterday she had abd distention. She says she did not eat anything unusual yesterday and in fact she is on a strict diet and does not deviate. She states she typically has normal BM's, but has not had one since yesterday morning. She says pain yesterday was an 8 and today rates her pain. She states she did vomit last night. Denies fevers. Denies any new medications. Rut Mcintyre LPN [facility] 11-17-2024 Telephone encounter Note Left VM to return call to discuss symptoms. Rut Mcintyre LPN [facility] 11-17-2024 Telephone encounter Note Patient called stating she has been having gas/indigestion which causes vomiting at night. She did not take potassium today. She is questioning if it is due to potassium or lynparza. [facility] Work Phone: 11-16-2024 History of Presen t illness Narrative Patient is here for IVAD port flush/blood draw per [facility] protocol. IVAD is located in right upper chest. Site cleansed with Chloraprep IVAD accessed with a #20 gauge 3/4 non-coring Gripper needle Flush with 5cc's Normal Saline. Blood Return: Good. 10 cc's blood aspirated and discarded. Blood drawn for CBC and CMP. Flushed with: 20 ml Normal Saline. Non-coring needle removed. Paper tape applied to puncture site. Site negative for redness, edema or tenderness. Patient tolerated procedure well. documented in this encounter [facility] 11-02-2024 Telephone encounter Note Pt. Scheduled for transfusion 1 unit packed cells @ [facility] 11/03@ 9:30 am. Pt. And lab notified, orders faxed. Kristan Marina LPN [facility] 11-02-2024 Miscellaneous Notes Pt. Scheduled for transfusion 1 unit packed cells @ [facility] 16@ 9:30 am. Pt. And lab notified, orders faxed. Kristan aMrina LPN documented in this encounter [facility] 11-02-2024 Telephone encounter Note Scheduled with patient [facility] Work Phone: 11-02-2024 Miscellaneous Notes Scheduled with patient PSS- please contact patient to schedule a lab/port appointment for 11/06/2024 for a CBC(?TX). Beatrice Chu LPN documented in this encounter [facility] 11-02-2024 Telephone encounter Note PSS- please contact patient to schedule a lab/port appointment for 11/06/2024 for a CBC(?TX). Beatrice Chu LPN [facility] 10-31-2024 Telephone encounter Note Attempted to call Savana, regarding population health navigation outreach telephone encounter. Per Alexa Laird CNP, Savana does not need an appointment unless she desires one. No answer, left message to return call if she feels she needs to schedule. Godwin Mirza RN [facility] Work Phone: 10-31-2024 Miscellaneous Notes Attempted to call Savana, regarding population health navigation outreach telephone encounter. Per Alexa Laird CNP, Savana does not need an appointment unless she desires one. No answer, left message to return call if she feels she needs to schedule. Godwin Mirza RN documented in this encounter [facility] 10-30-2024 Telephone encounter Note Patient's notified. Beatrice Chu LPN [facility] 10-30-2024 Miscellaneous Notes Patient's notified. Beatrice Chu LPN No, best that she stays on a soft diet for now. Patient's asking about increasing diet back to normal. States patient is on a soft diet, would like to know if she can resume eating salads, raw vegetables etc? Beatrice Chu LPN Spouse called requesting to speak to Beatrice when able. Patient is aware to increase Lynparza back to 2 tablets (300 mg) twice a day. Beatrice Chu LPN Patient stated she was to contact office this morning regarding a possible dosage change in Lynparza that would start today. Please advise patient. documented in this encounter [facility] 10-30-2024 Telephone encounter Note No, best that she stays on a soft diet for now. [facility] 10-30-2024 History of Presen t illness Narrative POPULATION HEALTH NAVIGATION OUTREACH Action/MARK Cote office- please contact patient to schedule appt. Patient is requesting appt and unable to schedule as provider appts are locked. See nurse message below Reason for Outreach Community Monitoring/Network Navigator Pools & Phone Line: [facility] Care Gaps due: Follow-up Appointment Patient Contacted: Unable or unnecessary to reach patient: Message sent to specialty office Navigation Signature: Corinne Nationon [facility] Navigator October 30, 2024 11:46 AM Transitional Care Management (TCM) Follow-Up Note PCP Update / Actionable Items Navigation Team Update / Actionable Items Pt requesting assistance getting an appt with Dr Cote Decontamination Technician/onc-she states they don't return her calls for an appt. Her number is [phone] if you can help. Thank you. Patient Source: In-Network Discharge Follow-up outreach: TCM enrolled patient Outreach Summary: Spoke with patient, states back on her chemo, no pain, no sob, no fever/chills, still tired, doing better. Contact: Contact made with patient: Yes Spoke to: Patient Validation: Validated the person spoken to is actively involved in the patient's care. The patient was identified by Name and Date of . I'd like to get an update on how you're doing since our last phone call. Is now a good time to talk? Yes Symptoms: Are you feeling about the same, better or worse since leaving the hospital? Better Weekly Outreach: 2nd Outreach Medications: Do you have any questions about taking your medications, including which medications you should be on, or do you need refills on your medications? No Patient Questions / Concerns: Do you have any questions related to your discharge? No Appointment / TCM Follow-Up: Have you had a follow-up visit with your Primary Care Provider or Specialist since you were discharged? No Do you need any assistance with scheduling or changing your follow-up appointments? Patient declines appointment SDOH: Has Food and Housing been addressed in [employer] in the past 3 months? Yes EDUCATION--: Patient and family educated on issues/questions related to reason for admission, transition of care topics, and follow-up needed upon discharge. Marian Akbar RN October 30, 2024 11:13 AM documented in this encounter [facility] 10-30-2024 Telephone encounter Note Patient's asking about increasing diet back to normal. States patient is on a soft diet, would like to know if she can resume eating salads, raw vegetables etc? Beatrice Chu LPN [facility] 10-30-2024 Telephone encounter Note Spouse called requesting to speak to Beatrice when able. T [facility] Work Phone: 10-30-2024 Telephone encounter Note Patient is aware to increase Lynparza back to 2 tablets (300 mg) twice a day. Beatrice Chu LPN [facility] 10-30-2024 Telephone encounter Note Patient stated she was to contact office this morning regarding a possible dosage change in Lynparza that would start today. Please advise patient. [facility] 10-29-2024 Telephone encounter Note Can let her know CA125 has declined significantly suggesting the Lynparza is working very well. The anemia is mostly from iron deficiency which should respond very well to iron sucrose. Js Cruz DO [facility] 10-29-2024 Miscellaneous Notes Can let her know CA125 has declined significantly suggesting the Lynparza is working very well. The anemia is mostly from iron deficiency which should respond very well to iron sucrose. Js Cruz DO documented in this encounter [facility] 10-27-2024 Telephone encounter Note Scheduled with patient Start email sent [facility] Work Phone: 10-27-2024 Miscellaneous Notes Scheduled with patient Start email sent When she was here before her hospitalization, lab work indicated iron deficiency. Let's schedule her for 5 doses of iron sucrose. That should help her feel a lot better. Js Cruz DO documented in this encounter [facility] 10-27-2024 Telephone encounter Note When she was here before her hospitalization, lab work indicated iron deficiency. Let's schedule her for 5 doses of iron sucrose. That should help her feel a lot better. Js Cruz DO 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 Initially underwent pelvic ultrasound on 09/01/2018. Uterus appeared normal. The endometrial stripe was 2.3 mm. Right and left ovaries appeared normal. However there was a large amount of free fluid in the pelvic cul-de-sac. CT A/P 09/08/2018: Liver: No mass. Homogeneous texture. Biliary: No ductal dilatation is seen. Gallbladder is unremarkable. Spleen: Spleen is unremarkable. Pancreas: No mass or duct dilation. Adrenals: Adrenal glands are unremarkable. Kidneys: No mass, calculus or hydronephrosis is seen. GI tract: No bowel dilatation is seen. No evidence of obstruction. Lymph nodes: No evidence of adenopathy. Mesentery/Peritoneum: There is increased soft tissue density best seen in the coronal views extending from the lower abdomen into the pelvic area. This could represent peritoneal involvement with tumor. This is seen on coronal image 37 and axial images 99 through 122. It extends across the anterior aspect of the pelvic area seen on axial image 124. Vasculature: No evidence of dilatation of the abdominal aorta. CT PELVIS: Pelvis: There is a large amount of free fluid or loculated fluid in the pelvis suggesting that there could be an enhancing rim surrounding this fluid is seen on image 127 and measures 10.6 x 6.1 cm. Bones/Soft Tissues: No significant findings identified. Lower thorax: Unremarkable. CA125 was 1153 U/mL. Had employee relations consultant onc evaluation and CT chest unremarkable. Underwent exploratory laparotomy, optimal tumor bulking, total abdominal hysterectomy, bilateral salpingo-oophorectomy, resection of bladder cul-de-sac and pelvic peritoneal disease along with resection of omental caking with super colic omentectomy on 10/06/2018. Pathology: FINAL DIAGNOSIS 1. 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 2. 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 3. Uterus, cervix, bilateral ovaries and fallopian tubes, and bladder/pelvic peritoneum, hysterectomy and excision (C) Left fallopian tube - High grade serous carcinoma (see comment and synoptic report). Right fallopian tube - Positive for involvement by high grade serous carcinoma. Bilateral ovaries - Positive for involvement by high grade serous carcinoma. Uterine serosa - Positive for involvement by high grade serous carcinoma. Bladder/pelvic peritoneum - Positive for involvement by high grade serous carcinoma. Endometrium - Inactive endometrium. Myometrium - Negative for malignancy. Cervix - Negative for malignancy. SYNOPTIC REPORT OF BRAUN PATHOLOGIC FINDINGS UTERUS, CERVIX, BILATERAL TUBES AND OVARIES, BLADDER, AND PELVIC PERITONEUM: Procedure: Total hysterectomy and bilateral salpingo-oophorectomy Omentectomy Peritoneal biopsies Specimen Integrity: Left fallopian tube serosa intact Primary Tumor Site: Left fallopian tube Ovarian Surface Involvement: Present Specify laterality (if applicable): Bilateral Fallopian Tube Surface Involvement: Present Specify laterality (if applicable): Bilateral Tumor Size: Greatest dimension: 1.6 cm Histologic Type: Serous carcinoma Histologic Grade: Not applicable Two-tier grading System: High grade Implants: Not applicable/not sampled Involvement of other tissues/organs: Right ovary Left ovary Right fallopian tube Pelvic peritoneum Omentum Other organs/tissues (specify): Uterine serosa Largest extrapelvic peritoneal focus, macroscopic (greater than 2 cm) Peritoneal Ascitic Fluid, Not submitted/unknown Treatment Effect: No known presurgical therapy Regional Lymph Nodes: No nodes submitted or found Pathologic Stage Classification (pTNM, AJCC 8th ed) TNM Descriptors: Not applicable Primary Tumor (pT): pT3c: Macroscopic peritoneal metastasis beyond pelvis more than 2 cm in greatest dimension with or without metastasis to the retroperitoneal lymph nodes (includes extension to capsule of liver and spleen without parenchymal involvement of either organ) Regional Lymph Nodes (pN): pNX: Cannot be assessed Distant Metastasis (pM): Not applicable/Not confirmed pathologically in this case Previous therapy: 1) 11/11/2018 - 02/03/2019: PACLITAXEL 80 D1,8,15 CARBOPLATIN 6 D1 - Q21D s/p 4 cycles. *neutropenia/thrombocytopenia causing treatment delay. Neulasta OnPro added; switch to Q21D dosing of Taxol with cycles 5 & 6 02/23/2019 - 03/17/2019: PACLITAXEL 135 D1 CARBOPLATIN 6 D1 - Q21D s/p 2 cycles. 2) 06/30/2019 - 06/20/2021: olaparib (LYNPARZA) 150 mg tablet; 300 mg BID. CTs 06/29/2022: Mesentery/Peritoneum: * New 0.4 cm anterior mesenteric fat nodule (8:57) * Confluent infiltrative soft tissue in RIGHT false pelvis surrounding the terminal ileum and ascending colon (cecum deep in pelvis) and probably affecting the sigmoid colon; difficult to precisely measure as it envelops bowel but including bowel measures approximately 4.5 x 2.9 cm (8:101); process extends to the RIGHT psoas muscle * Several small subtle anterior mesenteric fat nodules * No free abdominal fluid MRI pelvis 07/02/2022: Similar imaging findings since CT 06/29/2022, redemonstrating pelvic peritoneal/serosal carcinomatosis involving segments of bowel predominantly in the right anterior pelvis, with confluent soft tissue encasing the proximal ascending colon and causing relative upstream dilation of the low-lying cecum suggesting developing colonic obstruction. No small bowel dilation. No pelvic lymphadenopathy. 3) Carboplatin/paclitaxel x6 cycles. Completed 11/02/2022. Stable disease. 4) Doxil tolerated very well. PD 05/27/2023. 5) Elahere. PD. CTs 05/27/2023 demonstrated progression of disease with an increase in size of irregular soft tissue density in the right pelvis as well as increasing thickening of the wall of the cecum. Presented to the ED at [facility] about a week later. CT scan demonstrated possible cecal volvulus. She was transferred to [facility]. Managed nonsurgically with NG decompression. NG was removed on her second hospital day and her diet was advanced to clear liquids and then the following day advance to full liquids then to gastrointestinal soft diet on day 3. She was discharged home with plans for outpatient follow-up and colectomy with possible cytoreduction. Underwent open right hemicolectomy on 07/14/2023. Initially Dr. Dawson performed laparotomy and excised several lower pelvic lesions. Dr. Jes maldonado performed the right hemicolectomy. He observed kinking of the cecum, proximal ascending colon and some of the distal ileum coming together causing narrowing of the pedicle around which the colon was volvulized. Pathology: FINAL DIAGNOSIS A. 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 B. 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 C. 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 - Background small bowel with acute serositis, possibly procedure-related. - Appendix with fibrous obliteration. - Thirteen lymph nodes, negative for malignancy (0/13). D. Fascia, anterior abdominal wall, excision: - Fat necrosis with associated dystrophic calcification, negative for malignancy. 6) Topotecan with bevacizumab. Current therapy: 1) Olaparib. Presents for ongoing oncologic management. Interim history: Admitted for small bowel obstruction. Records reviewed. Did not require NG tube. Responded well to to dexamethasone. She is maintaining a soft diet. No significant abdominal pain. Bowels have been moving with her current regimen. She restarted Lynparza 2 tablets in the evening. Stable fingertip neuropathy. PMH, medications and allergies personally reviewed by me today. Any changes documented in appropriate section. ROS: Constitutional: Denies episodes of fever and night sweats. Neuro: Denies MACHADO. HEENT: No recent change in voice, vision or hearing. Resp: No cough, wheeze or hemoptysis. CVS: Denies exertional chest pain, PND, orthopnea and LE edema. GI: See above. : Denies dysuria or gross hematuria. Endo: Denies hot flashes. Denies polyuria and polydipsia. Denies heat and cold intolerance. Musculoskeletal: Denies bone, back, joint and muscular pain. Derm: Denies rash. Denies jaundice and diffuse pruritis. Heme: Denies unusual bleeding and unexplained bruising. Psych: Normal mood. PHYSICAL EXAM: Vitals: Blood pressure 106/57, pulse 82, temperature 37.2 C (98.9 F), temperature source Temporal, weight 48.1 kg (106 lb), SpO2 100%. Pale but well-appearing and in no acute distress. EYES: Sclerae are anicteric bilaterally. LYMPHATIC: No palpable cervical or supraclavicular adenopathy. RESPIRATORY: Resonant to percussion all throughout. CARDIOVASCULAR: Rhythm is regular. ABDOMEN: The abdomen is slightly distended. No overt fluid wave. No hyperactive bowel sounds. SKIN: No jaundice or rash. NGS/biomarkers/auto haulaway driver mutation analyses: BRCA2 mutation (tested 04/2019). Baseline CA125 1153 U/mL. FOLR1 IHC results--100% of cells stained +2-3+4 ASSESSMENT/PLAN: (C56.3) Malignant neoplasm of both ovaries (HCC) (primary encounter diagnosis) (C80.0) Carcinomatosis (HCC) (R18.0) Malignant ascites (G62.0, T45.1X5A) Chemotherapy-induced neuropathy (HCC) Anemia. Assessment: -Anemia from chronic disease and Lynparza. -She will increase Lynparza to 300 mg twice daily after a week at 300 mg daily in the evening. - Discussed plan to continue monitoring and transfuse as necessary. - Otherwise discussed plan as outlined below. Plan: -Continue Lynparza 3 mg daily with dose increase as above. -Weekly CBC/possible transfusion. -OV in about a month. -Continue every 2-week ultrasound with possible paracentesis. -Monitor CA125. -CTs in about 2 months. Portions of this documentation were copied and pasted from my previous office visit note dated 09/08/2024 in order to provide a cohesive continuity of the history. The note has been reviewed and edited and updated as necessary. Js Cruz DO documented in this encounter [facility] 10-27-2024 History of Presen t illness Narrative Patient is here for IVAD port flush/blood draw. IVAD is located in right upper chest. Site cleansed with Chloraprep IVAD accessed with a #20 gauge 3/4 non-coring Gripper needle Flush with 5cc's Normal Saline. Blood Return: Good. 10 cc's blood aspirated and discarded. Blood drawn for CBC, CMP, and CEA. Flushed with: 20 ml Normal Saline. Non-coring needle removed. Paper tape applied to puncture site. Site negative for redness, edema or tenderness. Patient tolerated procedure well. Lilia Stevens RN documented in this encounter [facility] 10-24-2024 Telephone encounter Note Patient had a good weekend. Swelling is better. No DVT's on ultrasound. Eating better, no nausea, passing gas. She saw Dr Cruz yesterday. He had her start 2 pills lynpara last night to take x 1 week and then check in if she is doing well she will increase back to 2 pills bid. This was the same instructions Dr Cote had. She sees Dr Cruz on Wednesday. Verbalized understanding and appreciated the phone call back Modesto Laird APRN.JOSE LUIS [facility] Work Phone: 10-24-2024 Miscellaneous Notes Patient had a good weekend. Swelling is better. No DVT's on ultrasound. Eating better, no nausea, passing gas. She saw Dr Cruz yesterday. He had her start 2 pills lynpara last night to take x 1 week and then check in if she is doing well she will increase back to 2 pills bid. This was the same instructions Dr Cote had. She sees Dr Cruz on Wednesday. Verbalized understanding and appreciated the phone call back Modetso Laird APRN.JOSE LUIS Patient contacts office stating when she had 2 good days to call the dr office to see when to start taking Lynparza. So patient reporting she did have 2 good days and wants to know when to start taking it. Patient would also like to know what symptoms to look out for when she does start taking medication documented in this encounter [facility] 10-23-2024 Telephone encounter Note Spoke with pt. Informed her potassium is running low, pt. Advised to start potassium supplement, rx sent to pharmacy. Pt. Voiced understanding. Kristan Marina LPN [facility] 10-23-2024 Miscellaneous Notes Spoke with pt. Informed her potassium is running low, pt. Advised to start potassium supplement, rx sent to pharmacy. Pt. Voiced understanding. Kristan Marina LPN Her potassium is running somewhat low. Advise her to start prescription replacement. documented in this encounter [facility] 10-23-2024 Telephone encounter Note Her potassium is running somewhat low. Advise her to start prescription replacement. [facility] 10-23-2024 History of Presen t illness Narrative Radiology Service Progress Note PATIENT NAME: Savana Patel DATE OF SERVICE: October 23, 2024 TIME: 2:21 PM PATIENT IDENTITY VERIFICATION COMPLETED USING TWO (2) IDENTIFIERS: Name and Date of confirmed by patient verbally. FALL SCREENING: Has the patient had 2 falls in the last year or 1 fall with injury or currently using an Ambulatory Assistive Device (Walker, Cane, Wheelchair, Crutches, etc.)? No PATIENT GENDER DATA: Assigned female at . status: : No status: NO. PATIENT RELEVANT IMPLANT DATA REVIEWED: Not Applicable PATIENT PRESENTS WITH AN IMPLANTABLE OR ATTACHED FRETTED STRING INSTRUMENT REPAIRER: No RADIOLOGY DEPARTMENT: Ultrasound PERIPHERAL IV DATA: Not applicable SIGNED BY: Dinorah Hall RDMS RVT October 23, 2024 2:21 PM documented in this encounter [facility] 10-23-2024 Telephone encounter Note Patient contacts office stating when she had 2 good days to call the dr office to see when to start taking Lynparza. So patient reporting she did have 2 good days and wants to know when to start taking it. Patient would also like to know what symptoms to look out for when she does start taking medication [facility] 10-20-2024 Telephone encounter Note Called and spoke with Savana, reviewed DVT US scheduled at [facility] on Monday 10/23 at 11:30 am. Savana verbalized understanding, repeated back date, time and location. Encouraged her to call office with any further questions or concerns. Godwin Mirza, SHEILA [facility] Work Phone: 10-20-2024 Miscellaneous Notes Called and spoke with Savana reviewed DVT US scheduled at [facility] on Monday 10/23 at 11:30 am. Savana verbalized understanding, repeated back date, time and location. Encouraged her to call office with any further questions or concerns. Godwin Mirza, RN documented in this encounter [facility] 10-17-2024 Telephone encounter Note Spoke with Dr Cote. He wants her to have 2 good days in a row with no nausea, eating, passing gas before restarting the lynparza. When she restarts he wants to start with 2 pills at beditme for 1 week and then check in to see how she is feeling. If she is feeling well then will go back to 2pills bid. Called patient with instructions. Instructions given to patient and . From update on she is feeling, as previously described stated she is having a hard time getting her strength back. Patient stated she was struggling with diarrhea and nausea/vomiting but this has resolved. Patient stated the day after she got home she had 1 episode of emesis and then she developed diarrhea. Patient has been holding Senna-S. Patient stated she had a solid BM this morning but it was a tiny BM which makes her think she should resume Senna-S. Patient has been taking Zofran prior to eating d/t nausea. Patient stated she was able to lay down and sleep without anything coming up in my throat last night. Patient stated she sits in her recliner for most of the day and I want to sleep a lot. Patient was having abdominal discomfort but this has resolved since taking Gas-X. Patient also has bilateral lower extremity swelling that started yesterday. Swelling is equal in both feet, ankles, and not quite up to my calf. Patient denies pain, redness, the skin being warm to touch, fever, chills, or SOB. Patient will start elevating her legs today,not ready to start yet. To call us in week if still not feeling like she is improving. Advise elevation legs and compression stockings if swelling in legs doesn't improve. Verbalized understanding. Modesto Laird APRN.JOSE LUIS [facility] Work Phone: 10-17-2024 Miscellaneous Notes Spoke with Dr Cote. He wants her to have 2 good days in a row with no nausea, eating, passing gas before restarting the lynparza. When she restarts he wants to start with 2 pills at beditme for 1 week and then check in to see how she is feeling. If she is feeling well then will go back to 2pills bid. Called patient with instructions. Instructions given to patient and . From update on she is feeling, as previously described stated she is having a hard time getting her strength back. Patient stated she was struggling with diarrhea and nausea/vomiting but this has resolved. Patient stated the day after she got home she had 1 episode of emesis and then she developed diarrhea. Patient has been holding Senna-S. Patient stated she had a solid BM this morning but it was a tiny BM which makes her think she should resume Senna-S. Patient has been taking Zofran prior to eating d/t nausea. Patient stated she was able to lay down and sleep without anything coming up in my throat last night. Patient stated she sits in her recliner for most of the day and I want to sleep a lot. Patient was having abdominal discomfort but this has resolved since taking Gas-X. Patient also has bilateral lower extremity swelling that started yesterday. Swelling is equal in both feet, ankles, and not quite up to my calf. Patient denies pain, redness, the skin being warm to touch, fever, chills, or SOB. Patient will start elevating her legs today,not ready to start yet. To call us in week if still not feeling like she is improving. Advise elevation legs and compression stockings if swelling in legs doesn't improve. Verbalized understanding. 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 Admitting Diagnosis: Malignant small bowel obstruction Discharge Summary/SBAR reviewed: Yes Handoff Discussed with Transitional Sales Trainer: N/A Psychosocial Risk Factors: None If patient discharged to SNF/Rehab Facility, phone call completed to reinforce discharge instructions and follow up: N/A Call Disposition: Per AVS, patient is to follow-up with Dr. Cote after discharge, however, no appointment has been scheduled. Lynparza is currently on hold per notes. Called and spoke to patient. Patient stated she is having a hard time getting her strength back. Patient stated she was struggling with diarrhea and nausea/vomiting but this has resolved. Patient stated the day after she got home she had 1 episode of emesis and then she developed diarrhea. Patient has been holding Senna-S. Patient stated she had a solid BM this morning but it was a tiny BM which makes her think she should resume Senna-S. Patient has been taking Zofran prior to eating d/t nausea. Patient stated she was able to lay down and sleep without anything coming up in my throat last night. Patient stated she sits in her recliner for most of the day and I want to sleep a lot. Patient was having abdominal discomfort but this has resolved since taking Gas-X. Patient also has bilateral lower extremity swelling that started yesterday. Swelling is equal in both feet, ankles, and not quite up to my calf. Patient denies pain, redness, the skin being warm to touch, fever, chills, or SOB. Patient will start elevating her legs today. Patient stated she was instructed to give Dr. Cote's office a call to give them an update and to discuss when to resume lynparza. Patient called but has not heard back from his office yet. Patient aware this nurse will give Dr. Cruz and Dr. Cote's office an update. EDEMA When did you first notice the edema or swelling? Yesterday Where is the swelling located? Both legs, feet and ankles not quite up to my calf Do you have any pain, tenderness, fever, redness, warmth associated with the swelling? Denies pain, tenderness, redness, or the skin being warm to touch. Denies fever/chills. Any shortness of breath? No Have you had any recent injury or trauma to the affected area? No Any recent surgery or travel? No Discussed elevating her legs above the heart. Patient is waiting to hear back from Dr. Cote's office to schedule an OV. Per AVS, patient is to follow-up with Dr. Cote after discharge. Patient's stated patient is supposed to call/give Dr. Cote's office an update on how she is feeling to discuss when she can resume Lynparza. Doreen Jerome RN documented in this encounter 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 Admitting Diagnosis: Malignant small bowel obstruction Discharge Summary/SBAR reviewed: Yes Handoff Discussed with Transitional Sales Trainer: N/A Psychosocial Risk Factors: None If patient discharged to SNF/Rehab Facility, phone call completed to reinforce discharge instructions and follow up: N/A Call Disposition: Per AVS, patient is to follow-up with Dr. Cote after discharge, however, no appointment has been scheduled. Lynparza is currently on hold per notes. Called and spoke to patient. Patient stated she is having a hard time getting her strength back. Patient stated she was struggling with diarrhea and nausea/vomiting but this has resolved. Patient stated the day after she got home she had 1 episode of emesis and then she developed diarrhea. Patient has been holding Senna-S. Patient stated she had a solid BM this morning but it was a tiny BM which makes her think she should resume Senna-S. Patient has been taking Zofran prior to eating d/t nausea. Patient stated she was able to lay down and sleep without anything coming up in my throat last night. Patient stated she sits in her recliner for most of the day and I want to sleep a lot. Patient was having abdominal discomfort but this has resolved since taking Gas-X. Patient also has bilateral lower extremity swelling that started yesterday. Swelling is equal in both feet, ankles, and not quite up to my calf. Patient denies pain, redness, the skin being warm to touch, fever, chills, or SOB. Patient will start elevating her legs today. Patient stated she was instructed to give Dr. Cote's office a call to give them an update and to discuss when to resume lynparza. Patient called but has not heard back from his office yet. Patient aware this nurse will give Dr. Cruz and Dr. Cote's office an update. EDEMA When did you first notice the edema or swelling? Yesterday Where is the swelling located? Both legs, feet and ankles not quite up to my calf Do you have any pain, tenderness, fever, redness, warmth associated with the swelling? Denies pain, tenderness, redness, or the skin being warm to touch. Denies fever/chills. Any shortness of breath? No Have you had any recent injury or trauma to the affected area? No Any recent surgery or travel? No Discussed elevating her legs above the heart. Patient is waiting to hear back from Dr. Cote's office to schedule an OV. Per AVS, patient is to follow-up with Dr. Cote after discharge. Patient's stated patient is supposed to call/give Dr. Cote's office an update on how she is feeling to discuss when she can resume Lynparza. Doreen Jerome, RN T [facility] 10-17-2024 Telephone encounter Note Telephone call from patients stating her feet and ankles are swelling and she did vomit one time on 10/15. Pt stats she is taking gas-x and then 10/16 patient stating she was having loose bowels as well. Patient would appreciate a phone call back . [facility] 10-17-2024 Miscellaneous Notes Telephone call from patients stating her feet and ankles are swelling and she did vomit one time on 10/15. Pt stats she is taking gas-x and then 10/16 patient stating she was having loose bowels as well. Patient would appreciate a phone call back . documented in this encounter [facility] 10-16-2024 History of Presen t illness Narrative Value Based Care Coordination Chart Review Provider Action / FYI: Upon review of patient chart, the patient is excluded from Chronic Disease Management Patient is not a candidate for CDM at this time and placed in the following status: Deferred chemo Action taken: No action needed . Codi Avalos RN October 16, 2024 3:41 PM documented in this encounter [facility] 10-14-2024 Note HNO ID: [id number] Author: FANG COTE MD Service: Gynecology Oncology Author Type: Resident Type: Progress Notes Filed: 10/14/2024 11:55 Note Text: Attestation signed by Fang Cote MD at 10/14/2024 11:55 AM I evaluated the patient and personally participated in the braun components. I agree with the resident's findings and plan with the following revisions and/or additions: Seen and examined with resident. Feeling OK but anxious about future GI problems. Passing gas, No nausea and no vomiting for over 48 hrs. ate breakfast OK. Abd softer than 22 days ago, and bowel sounds not obstructive. OK for discharge. Call office Wednesday with updateon how she is feeling and decision on when to resume olaparib can be made. Diet recommendations discussed with her. Does not need laxatives. Stool softener ok. Signature: Fang Cote MD Service Date: 10/14/2024 Service Time: 11:52 AM GYNECOLOGY ONCOLOGY PROGRESS NOTE [facility] Decontamination Technician Onc Service Pager: For questions or concerns regarding: -Gynecology Oncology patients admitted to Dr. Clay/Soo/Rocael, please page #[phone] SERVICE DATE: October 14, 2024 SERVICE TIME: 7:24 AM Hospital Day: 9 Subjective Interval History: Overnight Savana Patel reports sleeping comfortably and feeling well. She reports passing flatulence and BM overnight. She states she is tolerating her soft diet without n/v. Patient was seen ambulating in the hallway without difficulty. Patient denies fevers, chills, chest pain, SOB, abdominal pain, nausea, vomiting, or any additional complaints at this time. Onc Hx: 10/06/2018: Exploratory laparotomy, total abdominal hysterectomy, bilateral salpingooophorectomy, and bladder and posterior culdesac peritoneum resected en bloc, omentectomy 11/11/2018 - 02/03/2019: PACLITAXEL 80 D1,8,15 CARBOPLATIN 6 D1 - Q21D s/p 4 cycles. *neutropenia/thrombocytopenia causing treatment delay. Neulasta OnPro added; switch to Q21D dosing of Taxol with cycles 5 AND 6 02/23/2019 - 03/17/2019: PACLITAXEL 135 D1 CARBOPLATIN 6 D1 - Q21D s/p 2 cycles. 06/30/2019 - 06/20/2021: olaparib (LYNPARZA) 150 mg tablet; 300 mg BID. 07/20/2022- 3Carboplatin/Taxol and filgrastim x6 cycles Avastin given with C3 12/17/2022- 05/10/2023: Doxil, x6 cycles (12/17/2022- 05/10/2023) Decreased to 30mg/m2 with C3 due to PPE 07/14/2023 Exploratory laparotomy, tumor debulking of abdominal lesion is less than 5 cm, right ureterolysis. 06/28/2024: Recurrent fallopian tube cancer with current regimen being topotecan and bevacizumab. Completed 6 cycles of therapy. 09/05/2024: Recurrent fall tube cancer. [place] refractory. Currently had begun treatment with Olaparib. She had previously tolerated this well and had a progression free interval of approximately 1 year. She has not had any durable responses with doxil, mirvetuximab, topotecan with bevacizumab and most recently gemcitabine. She is requiring paracentesis, 2 or 3 times a month. Objective LAST VITALS: Pulse BP Resp O2 Sat Temp Pain 65 123/64 16 100 % 37 ?C (98.6 ?F) 0 PHYSICAL EXAM: General: Alert and oriented, resting comfortably in bed HEENT: Membranes moist Chest: Normal work of breathing on room air Heart: Regular rate Abdomen: Soft, non-tender to palpation, non-distended, no palpable masses Extremities: Warm to touch, no rashes, no edema Relevant labs: Latest Ref Rng AND Units 10/14/2024 10/13/2024 10/12/2024 CBC WBC 3.70 - 11.00 k/uL 6.48 6.17 6.32 RBC 3.90 - 5.20 m/uL 3.20 2.80 2.98 Hemoglobin 11.5 - 15.5 g/dL 8.2 7.2 7.7 Hematocrit 36.0 - 46.0 % 26.3 23.7 24.8 MCV 80.0 - 100.0 fL 82.2 84.6 83.2 MCH 26.0 - 34.0 pg 25.6 25.7 25.8 MCHC 30.5 - 36.0 g/dL 31.2 30.4 31.0 RDW-CV 11.5 - 15.0 % 21.9 21.4 22.0 Platelet Count 150 - 400 k/uL 192 172 159 MPV 9.0 - 12.7 fL 10.3 10.1 10.7 Latest Ref Rng AND Units 10/14/2024 10/13/2024 10/12/2024 CMP Sodium 136 - 144 mmol/L 137 139 139 Potassium 3.7 - 5.1 mmol/L 3.8 4.1 4.0 Chloride 98 - 107 mmol/L 102 103 102 CO2 22 - 30 mmol/L 25 24 Glucose 74 - 99 mg/dL 78 99 117 BUN 7 - 21 mg/dL 18 22 22 Creatinine 0.58 - 0.96 mg/dL 0.62 0.62 0.64 EGFR >=60 mL/min/1.73m? 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 [facility] 10-13-2024 Note HNO ID: [id number] Author: DMITRI VALLADARES RPh Service: Pharmacy Author Type: Pharmacist Type: Plan of Care Filed: 10/13/2024 15:28 Note Text: DISCHARGE MEDICATION REVIEW BY PHARMACY Patient Name: Savana Patel Account #: Data Unavailable Admission Date: 10/05/2024 Date of Contact: October 13, 2024 Time of Contact: 3:28 PM Medication list was reviewed by a Pharmacist for drug interactions or drug related problems:Yes Below is a summary of pharmacist recommendations discussed with LIP: No recommendations at this time from discharge medication list. Dmitri Valladares RPh Pager: Loly parker 10/13/2024 3:28 PM Medication List START taking these medications phenol 1.4 % Spra Commonly known as: CHLORASEPTIC Use 1 spray as instructed every 2 hours as needed. CONTINUE taking these medications acetaminophen 500 mg tablet Commonly known as: TYLENOL Take 2 tablets by mouth every 8 hours. COLACE ORAL olaparib 150 mg tablet Commonly known as: LYNPARZA Take 2 tablets (300 mg) by mouth two times a day. ondansetron 8 mg tablet Commonly known as: ZOFRAN Take 1 tablet by mouth every 8 hours as needed for nausea/vomiting. prochlorperazine 10 mg tablet Commonly known as: COMPAZINE Take 1 tablet by mouth every 6 hours as needed (For chemotherapy induced nausea and vomiting.). senna-docusate 8.6-50 mg per tablet Commonly known as: SENNA-S Take 1 tablet by mouth two times a day. STOP taking these medications omeprazole 40 mg capsule Commonly known as: PriLOSEC Where to Get Your Medications These medications were sent to [facility] [address] [place] [id number] - [address] [place] [address] - [id number] [place] [id number] phenol 1.4 % Spra [facility] 10-13-2024 Note HNO ID: [id number] Author: LEELEE RASHID RN Service: Care Management Author Type: Registered Nurse Type: Care Mgt Progress Note Filed: 10/13/2024 13:05 Note Text: CARE MANAGEMENT PROGRESS NOTE SERVICE DATE: 10/13/2024 SERVICE TIME: 1305 LOS: 7 days IMM Follow Up Copy Given: Yes Copy given to:: Patient Method: In Person Plan to return home with self-care and continued family support, once medically cleared. Will have transport. SIGNATURE: Leelee Rashid RN PATIENT NAME: Savana Patel DATE: October 13, 2024 TIME: 1:05 PM [facility] 10-13-2024 Note HNO ID: [id number] Author: STANLEY WALTON MD Service: Gynecology Oncology Author Type: Resident Type: Progress Notes Filed: 10/13/2024 06:57 Note Text: GYNECOLOGY ONCOLOGY PROGRESS NOTE [facility] Decontamination Technician Onc Service Pager: For questions or concerns regarding: -Gynecology Oncology patients admitted to Dr. Clay/Soo/Rocael, please page #[phone] SERVICE DATE: October 13, 2024 SERVICE TIME: 6:48 AM Subjective Savana Patel is seen brushing her teeth in bed this morning. She states that she has been up to the bathroom all night long with bowel movements, and that they were mostly soft but the most recent was more formed. Passing lots of flatus, no nausea or vomiting. No abdominal pain, chest pain, shortness of breath. Is hoping for a further advance in diet today. Onc Hx: 10/06/2018: Exploratory laparotomy, total abdominal hysterectomy, bilateral salpingooophorectomy, and bladder and posterior culdesac peritoneum resected en bloc, omentectomy 11/11/2018 - 02/03/2019: PACLITAXEL 80 D1,8,15 CARBOPLATIN 6 D1 - Q21D s/p 4 cycles. *neutropenia/thrombocytopenia causing treatment delay. Neulasta OnPro added; switch to Q21D dosing of Taxol with cycles 5 AND 6 02/23/2019 - 03/17/2019: PACLITAXEL 135 D1 CARBOPLATIN 6 D1 - Q21D s/p 2 cycles. 06/30/2019 - 06/20/2021: olaparib (LYNPARZA) 150 mg tablet; 300 mg BID. 07/20/2022- 3Carboplatin/Taxol and filgrastim x6 cycles Avastin given with C3 12/17/2022- 05/10/2023: Doxil, x6 cycles (12/17/2022- 05/10/2023) Decreased to 30mg/m2 with C3 due to PPE 07/14/2023 Exploratory laparotomy, tumor debulking of abdominal lesion is less than 5 cm, right ureterolysis. 06/28/2024: Recurrent fallopian tube cancer with current regimen being topotecan and bevacizumab. Completed 6 cycles of therapy. 09/05/2024: Recurrent fall tube cancer. [place] refractory. Currently had begun treatment with Olaparib. She had previously tolerated this well and had a progression free interval of approximately 1 year. She has not had any durable responses with doxil, mirvetuximab, topotecan with bevacizumab and most recently gemcitabine. She is requiring paracentesis, 2 or 3 times a month. Objective LAST VITALS: Date 10/12/24 0700 - 10/13/24 0659 10/13/24 0700 - 10/14/24 0659 Shift 7174-0464 1129-0491 1515-7404 24 Hour Total 1028-3434 6597-4969 9760-6427 24 Hour Total INTAKE PO 240 240 PO 240 240 Shift Total 240 240 OUTPUT Urine Urine Not Saved. 1 x 1 x # of BMs Number of BMs 1 x 1 x Shift Total Weight (kg) 51.3 51.3 51.3 51.3 51.3 51.3 51.3 51.3 Pulse BP Resp O2 Sat Temp Pain 69 125/62 20 99 % 36.6 ?C (97.8 ?F) 0 PHYSICAL EXAM: General: Alert and oriented, resting comfortably in bed HEENT: Membranes moist Chest: Normal work of breathing on room air Heart: Regular rate Abdomen: Soft, non-tender to palpation, non-distended, no palpable masses Extremities: Warm to touch, no rashes, no edema Relevant labs: Latest Ref Rng AND Units 10/13/2024 10/12/2024 10/11/2024 CBC WBC 3.70 - 11.00 k/uL 6.17 6.32 7.47 RBC 3.90 - 5.20 m/uL 2.80 2.98 3.24 Hemoglobin 11.5 - 15.5 g/dL 7.2 7.7 8.5 Hematocrit 36.0 - 46.0 % 23.7 24.8 27.3 MCV 80.0 - 100.0 fL 84.6 83.2 84.3 MCH 26.0 - 34.0 pg 25.7 25.8 26.2 MCHC 30.5 - 36.0 g/dL 30.4 31.0 31.1 RDW-CV 11.5 - 15.0 % 21.4 22.0 22.4 Platelet Count 150 - 400 k/uL 172 159 190 MPV 9.0 - 12.7 fL 10.1 10.7 10.1 Latest Ref Rng AND Units 10/13/2024 10/12/2024 10/11/2024 CMP Sodium 136 - 144 mmol/L 139 139 138 Potassium 3.7 - 5.1 mmol/L 4.1 4.0 3.7 Chloride 98 - 107 mmol/L 103 102 94 CO2 22 - 30 mmol/L 25 24 25 Glucose 74 - 99 mg/dL 99 117 122 BUN 7 - 21 mg/dL 22 22 21 Creatinine 0.58 - 0.96 mg/dL 0.62 0.64 0.69 EGFR >=60 mL/min/1.73m? 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 Multiple clumped bowel loops in the pelvis which could also be causing bilateral hydronephrosis. Mild ascites. - 10/08 KUB: No bowel dilatation. - 10/11 SBFT: Contrast reaches the colon by 90 minutes and is present within the rectum by 4 hours. Dilated small bowel loops, consider partial obstruction - 10/12 KUB: Contrast in the colon and rectum. Multiple gas loops in the pelvis without definitive dilation. - Decadron BID started 10/11 - Currently CLD with LR 75cc/hr - Endorsing multiple soft BMs overnight - No nausea or vomiting - (more content not included)... [facility] 10-12-2024 Note HNO ID: [id number] Author: LEELEE RASHID RN Service: Care Management Author Type: Registered Nurse Type: Care Mgt Progress Note Filed: 10/12/2024 14:18 Note Text: CARE MANAGEMENT PROGRESS NOTE SERVICE DATE: 10/12/2024 SERVICE TIME: 1417 LOS: 6 days Plan to return home with self-care and continued family support, once medically cleared. Will have transport. SIGNATURE: Leelee Rashid RN PATIENT NAME: Savana Paetl DATE: October 12, 2024 TIME: 2:17 PM [facility] 10-12-2024 Note HNO ID: [id number] Author: CORINNE NEWTON MD Service: Gynecology Oncology Author Type: Physician Type: Progress Notes Filed: 10/12/2024 13:01 Note Text: GYNECOLOGY ONCOLOGY PROGRESS NOTE [facility] Decontamination Technician Onc Service Pager: For questions or concerns regarding: -Gynecology Oncology patients admitted to Dr. Caly/Soo/Rocael, please page #[phone] SERVICE DATE: October 12, 2024 SERVICE TIME: 6:47 AM Subjective Savana Patel states that she is feeling very well this morning. She is very happy that she was able to move rooms yesterday evening and got her first night of good sleep since her admission to the hospital. She reports that she had three soft bowel movements overnight and no nausea or vomiting. She states that she is not passing any flatus at this time. Denies any abdominal pain, chest pain, shortness of breath. Is hoping to be able to advance her diet at some time today. Onc Hx: 10/06/2018: Exploratory laparotomy, total abdominal hysterectomy, bilateral salpingooophorectomy, and bladder and posterior culdesac peritoneum resected en bloc, omentectomy 11/11/2018 - 02/03/2019: PACLITAXEL 80 D1,8,15 CARBOPLATIN 6 D1 - Q21D s/p 4 cycles. *neutropenia/thrombocytopenia causing treatment delay. Neulasta OnPro added; switch to Q21D dosing of Taxol with cycles 5 AND 6 02/23/2019 - 03/17/2019: PACLITAXEL 135 D1 CARBOPLATIN 6 D1 - Q21D s/p 2 cycles. 06/30/2019 - 06/20/2021: olaparib (LYNPARZA) 150 mg tablet; 300 mg BID. 07/20/2022- 3Carboplatin/Taxol and filgrastim x6 cycles Avastin given with C3 12/17/2022- 05/10/2023: Doxil, x6 cycles (12/17/2022- 05/10/2023) Decreased to 30mg/m2 with C3 due to PPE 07/14/2023 Exploratory laparotomy, tumor debulking of abdominal lesion is less than 5 cm, right ureterolysis. 06/28/2024: Recurrent fallopian tube cancer with current regimen being topotecan and bevacizumab. Completed 6 cycles of therapy. 09/05/2024: Recurrent fall tube cancer. [place] refractory. Currently had begun treatment with Olaparib. She had previously tolerated this well and had a progression free interval of approximately 1 year. She has not had any durable responses with doxil, mirvetuximab, topotecan with bevacizumab and most recently gemcitabine. She is requiring paracentesis, 2 or 3 times a month. Objective LAST VITALS: Date 10/11/24 0700 - 10/12/24 0659 10/12/24 0700 - 10/13/24 0659 Shift 5720-5842 7477-7624 4457-6692 24 Hour Total 7837-3882 8055-9879 0731-1241 24 Hour Total INTAKE Shift Total OUTPUT Urine Urine Not Saved. 1 x 1 x 1 x 3 x # of BMs Number of BMs 1 x 1 x 1 x 3 x Shift Total Weight (kg) 51.3 51.3 51.3 51.3 51.3 51.3 51.3 51.3 Pulse BP Resp O2 Sat Temp Pain 68 115/55 18 98 % 36.6 ?C (97.8 ?F) 0 PHYSICAL EXAM: General: Alert and oriented, standing comfortably in restroom HEENT: Membranes moist Chest: Normal work of breathing on room air Heart: Regular rate Abdomen: Soft, non-tender to palpation, mildly distended. Thickened abdominal wall still noted Extremities: Warm to touch, no rashes, no edema Relevant labs: Latest Ref Rng AND Units 10/12/2024 10/11/2024 10/10/2024 CBC WBC 3.70 - 11.00 k/uL 6.32 7.47 5.64 RBC 3.90 - 5.20 m/uL 2.98 3.24 2.92 Hemoglobin 11.5 - 15.5 g/dL 7.7 8.5 7.5 Hematocrit 36.0 - 46.0 % 24.8 27.3 24.9 MCV 80.0 - 100.0 fL 83.2 84.3 85.3 MCH 26.0 - 34.0 pg 25.8 26.2 25.7 MCHC 30.5 - 36.0 g/dL 31.0 31.1 30.1 RDW-CV 11.5 - 15.0 % 22.0 22.4 22.2 Platelet Count 150 - 400 k/uL 159 190 141 MPV 9.0 - 12.7 fL 10.7 10.1 9.7 Latest Ref Rng AND Units 10/12/2024 10/11/2024 10/10/2024 CMP Sodium 136 - 144 mmol/L 139 138 136 Potassium 3.7 - 5.1 mmol/L 4.0 3.7 3.8 Chloride 98 - 107 mmol/L 102 94 99 CO2 22 - 30 mmol/L 24 25 24 Glucose 74 - 99 mg/dL 117 122 73 BUN 7 - 21 mg/dL 22 21 21 Creatinine 0.58 - 0.96 mg/dL 0.64 0.69 0.69 EGFR >=60 mL/min/1.73m? 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 - 10/05 CT AP: Early small bowel obstruction suspected. Multiple clumped bowel loops in the pelvis which could also be causing bilateral hydronephrosis. Mild ascites. - 10/11 SBFT: Contrast reaches the colon by 90 minutes and is present within the rectum by 4 hours. Dilated small bowel loops, consider partial obstruction - Decadron BID started 10/11 - Currently NPO with LR 75cc/hr - Endorsing 3 soft BMs overnight - No nausea or (more content not included)... [facility] 10-11-2024 Note HNO ID: [id number] Author: FELIX AMARO DO Service: Gynecology Oncology Author Type: Resident Type: Progress Notes Filed: 10/11/2024 16:01 Note Text: At bedside with patient and patient's this afternoon. Patient reports she is feeling well after her initial course of steroids initiated today. She denies any additional episodes of emesis since this morning. Patient states she has not had any additional bowel movements since this morning and has not passed flatulence today. Denies nausea or pain at this time. Discussed plan to continue with steroids and bowel rest. If no improvement or worsening tomorrow morning will consider NG tube placement. Dr. Clay updated. Felix Amaro DO 4:00 PM [facility] 10-11-2024 Note HNO ID: [id number] Author: CORINNE NEWTON MD Service: Gynecology Oncology Author Type: Physician Type: Progress Notes Filed: 10/11/2024 10:22 Note Text: GYNECOLOGY ONCOLOGY PROGRESS NOTE [facility] Decontamination Technician Onc Service Pager: For questions or concerns regarding: -Gynecology Oncology patients admitted to Dr. 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 This morning she reports she had a rough night. She did have a soft BM overnight, but reports since then she had an episode of emesis. At time of resident rounds, she also had a second episode of vomiting for 1L of dark yellow-brown fluid. She denies abdominal pain, chest pain, SOB. Onc Hx: 10/06/2018: Exploratory laparotomy, total abdominal hysterectomy, bilateral salpingooophorectomy, and bladder and posterior culdesac peritoneum resected en bloc, omentectomy 11/11/2018 - 02/03/2019: PACLITAXEL 80 D1,8,15 CARBOPLATIN 6 D1 - Q21D s/p 4 cycles. *neutropenia/thrombocytopenia causing treatment delay. Neulasta OnPro added; switch to Q21D dosing of Taxol with cycles 5 AND 6 02/23/2019 - 03/17/2019: PACLITAXEL 135 D1 CARBOPLATIN 6 D1 - Q21D s/p 2 cycles. 06/30/2019 - 06/20/2021: olaparib (LYNPARZA) 150 mg tablet; 300 mg BID. 07/20/2022- 3Carboplatin/Taxol and filgrastim x6 cycles Avastin given with C3 12/17/2022- 05/10/2023: Doxil, x6 cycles (12/17/2022- 05/10/2023) Decreased to 30mg/m2 with C3 due to PPE 07/14/2023 Exploratory laparotomy, tumor debulking of abdominal lesion is less than 5 cm, right ureterolysis. 06/28/2024: Recurrent fallopian tube cancer with current regimen being topotecan and bevacizumab. Completed 6 cycles of therapy. 09/05/2024: Recurrent fall tube cancer. [place] refractory. Currently had begun treatment with Olaparib. She had previously tolerated this well and had a progression free interval of approximately 1 year. She has not had any durable responses with doxil, mirvetuximab, topotecan with bevacizumab and most recently gemcitabine. She is requiring paracentesis, 2 or 3 times a month. Objective LAST VITALS: Date 10/10/24 0700 - 10/11/24 0659 10/11/24 0700 - 10/12/24 0659 Shift 9360-4271 0254-2443 6846-8731 24 Hour Total 4264-9566 6151-4736 3915-7923 24 Hour Total INTAKE PO 75 75 PO 75 75 Shift Total 75 75 OUTPUT Urine Urine Not Saved. 1 x 1 x Emesis 600 600 Emesis (ml) 600 600 # of BMs Number of BMs 1 x 1 x Shift Total 600 600 Weight (kg) 51.3 51.3 51.3 51.3 51.3 51.3 51.3 51.3 Pulse BP Resp O2 Sat Temp Pain 83 130/68 16 94 % 37.2 ?C (98.9 ?F) 0 PHYSICAL EXAM: General: Alert and oriented HEENT: Membranes moist Chest: Normal work of breathing on room air Heart: Regular rate Abdomen: Soft, non-tender to palpation, mild distension throughout. Diffuse thickening of abdominal wall from umbilicus to lower abdomen. Extremities: Warm to touch, no rashes, no edema Relevant labs: Latest Ref Rng AND Units 10/11/2024 10/10/2024 10/09/2024 CBC WBC 3.70 - 11.00 k/uL 7.47 5.64 5.64 RBC 3.90 - 5.20 m/uL 3.24 2.92 3.44 Hemoglobin 11.5 - 15.5 g/dL 8.5 7.5 8.9 Hematocrit 36.0 - 46.0 % 27.3 24.9 28.7 MCV 80.0 - 100.0 fL 84.3 85.3 83.4 MCH 26.0 - 34.0 pg 26.2 25.7 25.9 MCHC 30.5 - 36.0 g/dL 31.1 30.1 31.0 RDW-CV 11.5 - 15.0 % 22.4 22.2 22.2 Platelet Count 150 - 400 k/uL 190 141 220 MPV 9.0 - 12.7 fL 10.1 9.7 10.5 Latest Ref Rng AND Units 10/11/2024 10/10/2024 10/09/2024 CMP Sodium 136 - 144 mmol/L 138 136 135 Potassium 3.7 - 5.1 mmol/L 3.7 3.8 4.0 Chloride 98 - 107 mmol/L 94 99 95 CO2 22 - 30 mmol/L 25 24 26 Glucose 74 - 99 mg/dL 122 73 104 BUN 7 - 21 mg/dL 21 21 21 Creatinine 0.58 - 0.96 mg/dL 0.69 0.69 0.70 EGFR >=60 mL/min/1.73m? 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 - 10/05 CT AP: Early small bowel obstruction suspected. Multiple clumped bowel loops in the pelvis which could also be causing bilateral hydronephrosis. Mild ascites. - Previously on CLD, however now having vomiting thus NPO with LR 75 mL/hr running - Did have one soft BM overnight as well - Abdominal exam unchanged from prior this AM - Reglan TID, Protonix BID, Duclolax prn, Compazine prn - 10/11 SBFT in process - Consider NGT today Carcinoma of fallopian tube, unspecified laterality (HCC) - BRCA2 associated stage IIIC recurrent (more content not included)... [facility] 10-11-2024 Note HNO ID: [id number] Author: ROBERTA WALLER DO Service: Obstetrics Author Type: Resident Type: Progress Notes Filed: 10/11/2024 02:41 Note Text: Notified by RN that patient had 600 cc of emesis recently after diet changed to clear liquids earlier yesterday. He denies she is feeling nauseous at this time and vitals are stable. Plan to change diet to NPO and start maintenance fluids. RN to give prn compazine at this time. If emesis continues, plan for possible NG tube placement. Roberta Waller DO FLIGHT DYNAMICIST PGY-2 Pager [phone] October 11, 2024 2:41 AM [facility] 10-10-2024 Telephone encounter Note Patient's appointments are cancelled Rupal Marshall [facility] 10-10-2024 Miscellaneous Notes Patient's appointments are cancelled Rupal Marshall Patient is currently admitted in the hospital. Please cancel today's lab/OV. Thank you. Doreen Jerome RN documented in this encounter [facility] 10-10-2024 Telephone encounter Note Patient is currently admitted in the hospital. Please cancel today's lab/OV. Thank you. Doreen Jerome RN [facility] 10-10-2024 Note HNO ID: [id number] Author: STANLEY WALTON MD Service: Gynecology Oncology Author Type: Resident Type: Progress Notes Filed: 10/10/2024 06:46 Note Text: GYNECOLOGY ONCOLOGY PROGRESS NOTE [facility] Decontamination Technician Onc Service Pager: For questions or concerns regarding: -Gynecology Oncology patients admitted to Dr. Clay/Soo/Rocael, please page #[phone] SERVICE DATE: October 10, 2024 SERVICE TIME: 6:44 AM Subjective Savana Patel was standing in the restroom getting ready this morning, ambulating without concerns. States that her stomach is grumbling, but it has been grumbling since she was admitted. No nausea or vomiting overnight. She is still not passing any gas or bowel movements. No chest pain, shortness of breath, or abdominal pain. Onc Hx: 10/06/2018: Exploratory laparotomy, total abdominal hysterectomy, bilateral salpingooophorectomy, and bladder and posterior culdesac peritoneum resected en bloc, omentectomy 11/11/2018 - 02/03/2019: PACLITAXEL 80 D1,8,15 CARBOPLATIN 6 D1 - Q21D s/p 4 cycles. *neutropenia/thrombocytopenia causing treatment delay. Neulasta OnPro added; switch to Q21D dosing of Taxol with cycles 5 AND 6 02/23/2019 - 03/17/2019: PACLITAXEL 135 D1 CARBOPLATIN 6 D1 - Q21D s/p 2 cycles. 06/30/2019 - 06/20/2021: olaparib (LYNPARZA) 150 mg tablet; 300 mg BID. 07/20/2022- 3Carboplatin/Taxol and filgrastim x6 cycles Avastin given with C3 12/17/2022- 05/10/2023: Doxil, x6 cycles (12/17/2022- 05/10/2023) Decreased to 30mg/m2 with C3 due to PPE 07/14/2023 Exploratory laparotomy, tumor debulking of abdominal lesion is less than 5 cm, right ureterolysis. 06/28/2024: Recurrent fallopian tube cancer with current regimen being topotecan and bevacizumab. Completed 6 cycles of therapy. 09/05/2024: Recurrent fall tube cancer. [place] refractory. Currently had begun treatment with Olaparib. She had previously tolerated this well and had a progression free interval of approximately 1 year. She has not had any durable responses with doxil, mirvetuximab, topotecan with bevacizumab and most recently gemcitabine. She is requiring paracentesis, 2 or 3 times a month. Objective LAST VITALS: Date 10/09/24 0700 - 10/10/24 0659 10/10/24 0700 - 10/11/24 0659 Shift 3586-6341 3970-7985 2718-1049 24 Hour Total 7595-5227 9345-6359 0844-9220 24 Hour Total INTAKE Shift Total OUTPUT Urine 100 200 300 Void (ml) 100 200 300 Shift Total 100 200 300 Weight (kg) 51.3 51.3 51.3 51.3 51.3 51.3 51.3 51.3 Pulse BP Resp O2 Sat Temp Pain 70 133/62 18 94 % 37.5 ?C (99.5 ?F) 0 PHYSICAL EXAM: General: Alert and oriented, standing at bathroomsink HEENT: Membranes moist Chest: Normal work of breathing on room air Heart: Regular rate Abdomen: Soft, non-tender to palpation, full exam limited as patient standing Extremities: Warm to touch, no rashes, no edema Relevant labs: Latest Ref Rng AND Units 10/10/2024 10/09/2024 10/08/2024 CBC WBC 3.70 - 11.00 k/uL 5.64 5.64 6.09 RBC 3.90 - 5.20 m/uL 2.92 3.44 3.18 Hemoglobin 11.5 - 15.5 g/dL 7.5 8.9 8.4 Hematocrit 36.0 - 46.0 % 24.9 28.7 26.7 MCV 80.0 - 100.0 fL 85.3 83.4 84.0 MCH 26.0 - 34.0 pg 25.7 25.9 26.4 MCHC 30.5 - 36.0 g/dL 30.1 31.0 31.5 RDW-CV 11.5 - 15.0 % 22.2 22.2 22.4 Platelet Count 150 - 400 k/uL 141 220 166 MPV 9.0 - 12.7 fL 9.7 10.5 9.8 Latest Ref Rng AND Units 10/10/2024 10/09/2024 10/08/2024 CMP Sodium 136 - 144 mmol/L 136 135 133 Potassium 3.7 - 5.1 mmol/L 3.8 4.0 4.0 Chloride 98 - 107 mmol/L 99 95 95 CO2 22 - 30 mmol/L 24 26 23 Glucose 74 - 99 mg/dL 73 104 78 BUN 7 - 21 mg/dL 21 17 Creatinine 0.58 - 0.96 mg/dL 0.69 0.70 0.76 EGFR >=60 mL/min/1.73m? 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 Last flatus/BM 10/05. 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 Cote's notes - Currently on Olaparib for treatment - will hold for now - Heparin TID for DVT ppx - Daily CBC, BMP, and Mag Nausea AND vomiting - 2/2 to SBO - Scheduled Reglan + compazine PRN - see SBO for plan Hydronephrosis - CT AP 10/05: Multiple clumped bowel loop (more content not included)... [facility] 10-09-2024 Note HNO ID: [id number] Author: CORINNE NEWTON MD Service: Gynecology Oncology Author Type: Physician Type: Progress Notes Filed: 10/09/2024 21:07 Note Text: Documentation Query Please clarify the patient's nutritional status Provider Response: Severe Protein Calorie Malnutrition based on the assessment, plan, and treatment This document will become part of the patient's medical record. [facility] 10-09-2024 Note HNO ID: [id number] Author: KELLI HUBER, SHEILA Service: Care Management Author Type: Registered Nurse Type: Care Mgt Progress Note Filed: 10/09/2024 14:11 Note Text: CARE MANAGEMENT PROGRESS NOTE SERVICE DATE: 10/09/2024 SERVICE TIME: 1:00 PM LOS: 3 days Post-Acute Discharge Planning Patient Goal(s): Increase strength, General wellness, Be able to go home, Less pain [place] Explained: Anticipated # of Days Until Discharge: 2 Needs Prior to Discharge: Needs Prior to Discharge: To Be Determined (possible NG, possible urology consult) IMM Follow Up Copy Given: Yes Copy given to:: Patient Method: In Person (verbalized understanding) Post-Acute Discharge Plan: Chart reviewed. Continue monitoring for new discharge needs. Patient currently with intermittent N/V but awaiting progression of bowel function and diet toleration. No needs anticipated at this time. Spouse will be available for transport back home. CM will continue to follow clinical course for further transitional, discharge or POC needs. SIGNATURE: Kelli Huber RN PATIENT NAME: Savana Patel DATE: October 09, 2024 TIME: 1:00 PM [facility] 10-09-2024 Note HNO ID: [id number] Author: RENUKA PATEL DO Service: Gynecology Oncology Author Type: Resident Type: Progress Notes Filed: 10/09/2024 10:33 Note Text: Patient seen and examined by Dr. Cote this morning. Exam as follows: Abd: No gaseous distention. Diffuse non-tender thickening just above umbilicus extending to lower pelvis. No peritonitis or rebound. BS present and NOT obstructive in quality. No fluid wave. Extremities: Warm, non-tender, no edema. PLAN: - Continue LR 75/hr - NPO until passing flatus. Once passing flatus, can advance to CLD. - If further emesis, will place NGT - Consider SBFT study 10/10 - Nutrition consulted Renuka Patel DO Obstetrics and Gynecology PGY-4 [facility] 10-09-2024 Note HNO ID: [id number] Author: RENUKA PATEL DO Service: Gynecology Oncology Author Type: Resident Type: Progress Notes Filed: 10/09/2024 06:56 Note Text: GYNECOLOGY ONCOLOGY PROGRESS NOTE [facility] General Decontamination Technician Onc Service Pager: For questions or concerns regarding: -Gynecology Oncology patients admitted to Dr. 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 This morning Savana is in the restroom and states I just vomited. She has mild nausea currently. She denies passing any flatus overnight. She denies abdominal pain. ONCOLOGIC HISTORY: 10/06/2018: Exploratory laparotomy, total abdominal hysterectomy, bilateral salpingooophorectomy, and bladder and posterior culdesac peritoneum resected en bloc, omentectomy 11/11/2018 - 02/03/2019: PACLITAXEL 80 D1,8,15 CARBOPLATIN 6 D1 - Q21D s/p 4 cycles. *neutropenia/thrombocytopenia causing treatment delay. Neulasta OnPro added; switch to Q21D dosing of Taxol with cycles 5 AND 6 02/23/2019 - 03/17/2019: PACLITAXEL 135 D1 CARBOPLATIN 6 D1 - Q21D s/p 2 cycles. 06/30/2019 - 06/20/2021: olaparib (LYNPARZA) 150 mg tablet; 300 mg BID. 07/20/2022- 3Carboplatin/Taxol and filgrastim x6 cycles Avastin given with C3 12/17/2022- 05/10/2023: Doxil, x6 cycles (12/17/2022- 05/10/2023) Decreased to 30mg/m2 with C3 due to PPE 07/14/2023 Exploratory laparotomy, tumor debulking of abdominal lesion is less than 5 cm, right ureterolysis. 06/28/2024: Recurrent fallopian tube cancer with current regimen being topotecan and bevacizumab. Completed 6 cycles of therapy. 09/05/2024: Recurrent fall tube cancer. [place] refractory. Currently had begun treatment with Olaparib. She had previously tolerated this well and had a progression free interval of approximately 1 year. She has not had any durable responses with doxil, mirvetuximab, topotecan with bevacizumab and most recently gemcitabine. She is requiring paracentesis, 2 or 3 times a month. Objective LAST VITALS: Date 10/08/24 0700 - 10/09/24 0659 10/09/24 0700 - 10/10/24 0659 Shift 9988-1757 5321-9679 7652-0985 24 Hour Total 9083-5442 3006-0537 2012-3247 24 Hour Total INTAKE PO 220 220 PO 220 220 IV 1000 1000 Volume (mL) (lactated ringers iv infusion) 1000 1000 Shift Total 9203 902 5560 OUTPUT Urine Urine Not Saved. 2 x 1 x 1 x 4 x Emesis 300 300 Emesis (ml) 300 300 # of BMs Number of BMs 1 x 1 x Shift Total 300 300 Weight (kg) 51.3 51.3 51.3 51.3 51.3 51.3 51.3 51.3 Pulse BP Resp O2 Sat Temp Pain 77 149/74 18 97 % 37.2 ?C (98.9 ?F) 0 PHYSICAL EXAM: GENERAL: In no apparent distress. Standing at bathroom sink with compact mirror. Remainder of exam limited as patient in restroom Relevant labs: Latest Ref Rng AND Units 10/09/2024 10/08/2024 10/07/2024 CBC WBC 3.70 - 11.00 k/uL 5.64 6.09 4.86 RBC 3.90 - 5.20 m/uL 3.44 3.18 3.09 Hemoglobin 11.5 - 15.5 g/dL 8.9 8.4 8.0 Hematocrit 36.0 - 46.0 % 28.7 26.7 25.7 MCV 80.0 - 100.0 fL 83.4 84.0 83.2 MCH 26.0 - 34.0 pg 25.9 26.4 25.9 MCHC 30.5 - 36.0 g/dL 31.0 31.5 31.1 RDW-CV 11.5 - 15.0 % 22.2 22.4 22.4 Platelet Count 150 - 400 k/uL 220 166 160 MPV 9.0 - 12.7 fL 10.5 9.8 10.2 Latest Ref Rng AND Units 10/09/2024 10/08/2024 10/07/2024 CMP Sodium 136 - 144 mmol/L 135 133 134 Potassium 3.7 - 5.1 mmol/L 4.0 4.0 3.9 Chloride 98 - 107 mmol/L 95 95 96 CO2 22 - 30 mmol/L 26 23 24 Glucose 74 - 99 mg/dL 104 78 84 BUN 7 - 21 mg/dL 21 17 13 Creatinine 0.58 - 0.96 mg/dL 0.70 0.76 0.76 EGFR >=60 mL/min/1.73m? 90 82 82 Calcium 8.5 - 10.2 mg/dL 9.6 9.4 9.6 IMAGIN/20 KUB: No bowel dilatation. Unable to assess for free air. 10/05 CT AP: Early small bowel obstruction suspected. Multiple clumped bowel loops in the pelvis which could also be causing bilateral hydronephrosis. Mild ascites. 10/05 US RUQ/Spleen: Gallbladder wall thickening with negative Krause sign. Findings may be related to fluid overload/cirrhosis. Correlate clinically for cholecystitis. 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 Last flatus/BM 10/05. - CLD however making NPO and restarting LR 75/hr in setting of N/V this AM - Recent episode of vomiting - will give dose of Compazine prn now - last needed 09/26 - Not passing flatus - Consider NGT this AM (more content not included)... [facility] 10-08-2024 Note HNO ID: [id number] Author: CORINNE NEWTON MD Service: Gynecology Oncology Author Type: Physician Type: Progress Notes Filed: 10/08/2024 14:09 Note Text: GYNECOLOGY ONCOLOGY PROGRESS NOTE [facility] Decontamination Technician Onc Service Pager: For questions or concerns regarding: -Gynecology Oncology patients admitted to Dr. Clay/Soo/Rocael, please page #[phone] SERVICE DATE: October 08, 2024 SERVICE TIME: 6:50 AM Subjective Interval History: Overnight Savana Patel notes passing no flatus or BM. No vomiting or nausea. Does note feeling some reflux sensation and intermittent gas pains. No chest pain, SOB, leg pain. Ambulating without difficulty, voiding independently. Objective LAST VITALS: Date 10/07/24 0700 - 10/08/24 0659 10/08/24 07 - 10/09/24 0659 Shift 4185-8003 2782-2229 9639-0581 24 Hour Total 5959-8776 9651-4746 0723-3140 24 Hour Total INTAKE PO 0 0 PO 0 0 Supplements (mL) 0 0 IV 900 900 Volume (mL) (lactated ringers iv infusion) 900 900 Shift Total 0 900 900 OUTPUT Urine Urine Not Saved. 1 x 1 x 2 x Shift Total Weight (kg) 51.3 51.3 51.3 51.3 51.3 51.3 51.3 51.3 Pulse BP Resp O2 Sat Temp Pain 71 148/67 16 98 % 36.9 ?C (98.5 ?F) 0 PHYSICAL EXAM: GENERAL: In no apparent distress. Oriented x3 and appropriate. Comfortable. CARDIOVASCULAR: Regular rate and rhythm. PULMONARY: Lungs clear to all bernabe. ABDOMEN: soft, nontender, mildly distended without rebound or guarding, bowel sounds hypoactive Relevant labs: Latest Ref Rng AND Units 10/08/2024 10/07/2024 10/06/2024 CBC WBC 3.70 - 11.00 k/uL 6.09 4.86 4.99 RBC 3.90 - 5.20 m/uL 3.18 3.09 3.06 Hemoglobin 11.5 - 15.5 g/dL 8.4 8.0 8.1 Hematocrit 36.0 - 46.0 % 26.7 25.7 26.3 MCV 80.0 - 100.0 fL 84.0 83.2 85.9 MCH 26.0 - 34.0 pg 26.4 25.9 26.5 MCHC 30.5 - 36.0 g/dL 31.5 31.1 30.8 RDW-CV 11.5 - 15.0 % 22.4 22.4 22.2 Platelet Count 150 - 400 k/uL 166 160 157 MPV 9.0 - 12.7 fL 9.8 10.2 9.6 Latest Ref Rng AND Units 10/08/2024 10/07/2024 10/06/2024 CMP Sodium 136 - 144 mmol/L 133 134 135 Potassium 3.7 - 5.1 mmol/L 4.0 3.9 4.0 Chloride 98 - 107 mmol/L 95 96 98 CO2 22 - 30 mmol/L 23 24 24 Glucose 74 - 99 mg/dL 78 84 103 BUN 7 - 21 mg/dL 17 13 13 Creatinine 0.58 - 0.96 mg/dL 0.76 0.76 0.74 EGFR >=60 mL/min/1.73m? 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 Last flatus/BM 10/05. - Continue malignant SBO protocol with scheduled zofran, NPO status, maintenance IVF - continue to monitor BM/flatus. Can advance diet to CLD pending course today. 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 Cote's notes - Currently on Olaparib for treatment - will hold for now - Heparin TID for DVT ppx - daily CBC w/ diff, BMP and Mag Nausea AND vomiting - 2/2 to SBO - Scheduled Reglan + compazine PRN - see SBO for plan Hydronephrosis - CT AP 10/05: Multiple clumped bowel loops in the pelvis which could also be causing bilateral hydronephrosis. - urinating without difficulty - cr within normal limits on admission, will trend BMP daily - consider urology consult if needed Note not finalized until Attending attestation. Plan subject to change during/after daily rounds. SIGNATURE: 6:50 AM PATIENT NAME: Savana Patel DATE: October 08, 2024 TIME: 6:50 AM Decontamination Technician Onc Service Pager: For questions or concerns regarding: -Gynecology Oncology patients admitted to Dr. Clay/Soo/Rocael, please page #[phone] Attending Note I personally saw and examined the patient. I reviewed the resident's note. I agree with the resident's assessment and plan unless otherwise noted. Small flatus and BM today. Less distention, no nausea. Abdomen mildly distended, NTTP, hypoactive bowel sounds. KUB and labs reviewed 74 yo with recurrent plat resistant ovarian cancer with early/partial SBO. Okay for clears, continue PPI, Reglan. KUB no distention. Seems to be resolving. Regarding mild b/l hydro, no flank pain, normal WBC, Cr. Consider repeat imaging with US, may be from mild pressure from ascites and gas in bowel. Voiding well. Signature: Corinne Newton MD Date: 10/08/2024 Time: 2:07 PM [facility] 10-07-2024 Note HNO ID: [id number] Author: CORINNE NEWTON MD Service: Gynecology Oncology Author Type: Physician Type: Progress Notes Filed: 10/07/2024 17:50 Note Text: GYNECOLOGY ONCOLOGY PROGRESS NOTE [facility] Decontamination Technician Onc Service Pager: For questions or concerns regarding: -Gynecology Oncology patients admitted to Dr. Clay/Soo/Rocael, please page #[phone] SERVICE DATE: October 07, 2024 SERVICE TIME: 6:41 AM Subjective Interval History: Overnight Savana Patel passing small flatus after the suppository. Large improvement in abdominal pain and discomfort. No vomiting or nausea. No chest pain, SOB, leg pain. Objective LAST VITALS: Date 10/06/24 0700 - 10/07/24 0659 10/07/24 0700 - 10/08/24 0659 Shift 2220-7525 8073-0112 1661-7795 24 Hour Total 3851-0033 0951-3184 6409-9780 24 Hour Total INTAKE PO 0 0 0 PO 0 0 0 Supplements (mL) 0 0 0 Shift Total 0 0 0 OUTPUT Urine 1 1 Void (ml) 1 1 Urine Not Saved. 1 x 1 x Emesis 200 200 Emesis (ml) 200 200 Shift Total 200 1 201 Weight (kg) 51.3 51.3 51.3 51.3 51.3 51.3 51.3 51.3 Pulse BP Resp O2 Sat Temp Pain 68 153/64 17 100 % 36.9 ?C (98.5 ?F) 4 PHYSICAL EXAM: GENERAL: In no apparent distress. Oriented x3 and appropriate. Comfortable. CARDIOVASCULAR: Regular rate and rhythm. PULMONARY: Lungs clear to all bernabe. ABDOMEN: soft, nontender, mildly distended without rebound or guarding Relevant labs: Latest Ref Rng AND Units 10/07/2024 10/06/2024 10/06/2024 CBC WBC 3.70 - 11.00 k/uL 4.86 4.99 4.99 RBC 3.90 - 5.20 m/uL 3.09 3.06 3.20 Hemoglobin 11.5 - 15.5 g/dL 8.0 8.1 8.3 Hematocrit 36.0 - 46.0 % 25.7 26.3 26.9 MCV 80.0 - 100.0 fL 83.2 85.9 84.1 MCH 26.0 - 34.0 pg 25.9 26.5 25.9 MCHC 30.5 - 36.0 g/dL 31.1 30.8 30.9 RDW-CV 11.5 - 15.0 % 22.4 22.2 22.1 Platelet Count 150 - 400 k/uL 160 157 159 MPV 9.0 - 12.7 fL 10.2 9.6 9.6 Baso% % 0.4 Abs Neut (ANC) 1.45 - 7.50 k/uL 3.97 Abs Lymph 1.00 - 4.00 k/uL 0.57 Abs [place] <0.87 k/uL 0.39 Abs Eosin <0.46 k/uL <0.03 Abs Baso <0.11 k/uL <0.03 NRBC /100 WBC 0.0 Latest Ref Rng AND Units 10/07/2024 10/06/2024 10/05/2024 CMP Sodium 136 - 144 mmol/L 134 135 137 Potassium 3.7 - 5.1 mmol/L 3.9 4.0 4.1 Chloride 98 - 107 mmol/L 96 98 101 CO2 22 - 30 mmol/L 24 24 23 Glucose 74 - 99 mg/dL 84 103 104 BUN 7 - 21 mg/dL 13 13 17 Creatinine 0.58 - 0.96 mg/dL 0.76 0.74 0.79 EGFR >=60 mL/min/1.73m? 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 Last flatus/BM 10/05. - Continue malignant SBO protocol with scheduled zofran, NPO status, maintenance IVF - continue to monitor BM/flatus. Can advance diet to CLD pending course today. 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 Cote's notes - Currently on Olaparib for treatment - will hold for now - Heparin TID for DVT ppx - daily CBC w/ diff, BMP and Mag Nausea AND vomiting - 2/2 to SBO - Scheduled Reglan + compazine PRN - see SBO for plan Hydronephrosis - CT AP 10/05: Multiple clumped bowel loops in the pelvis which could also be causing bilateral hydronephrosis. - urinating without difficulty - cr within normal limits on admission, will trend BMP daily - consider urology consult if needed Note not finalized until Attending attestation. Plan subject to change during/after daily rounds. SIGNATURE: Beatrice Castillo DO PATIENT NAME: Savana Patel DATE: October 07, 2024 TIME: 6:41 AM Decontamination Technician Onc Service Pager: For questions or concerns regarding: -Gynecology Oncology patients admitted to Dr. Clay/Soo/Rocael, please page #[phone] Attending Note I personally saw and examined the patient. I reviewed the resident's note. I agree with the resident's assessment and plan unless otherwise noted. 74 yo recurrent plat resistant ovarian cancer with SBO. Minimal distention, + BS, NTTP. No N/V, no pain. Continue NPO, IVF, reglan. NG tube if any new symptoms, change in exam. Signature: Corinne Newton MD Date: 10/07/2024 Time: 5:49 PM [facility] 10-06-2024 Note HNO ID: [id number] Author: MEGGAN ANGULO RN Service: Nursing Author Type: Registered Nurse Type: Nursing Progress Note Filed: 10/06/2024 17:58 Note Text: Patient reported to RN that she is passing gas. [facility] 10-06-2024 History of Presen t illness Narrative Transitional Care Management (TCM) Inpatient Outreach N/A - No specialty updates needed Summary: Patient admitted to: [facility] Patient admitted on: (Not on file) Admitted for: SBO Contact made with patient: Rebeca Shelton, II am a Registered Nurse and I am calling from the [facility] on behalf of your primary care provider. I am sorry that I missed you today, but your care is important to us, and we would like to touch base with you. Please check your My Chart for a message related to your current hospital stay., Thank you and have a great day. Outreach ended. Kelli Aguilera RN October 06, 2024 documented in this encounter [facility] 10-06-2024 Note HNO ID: [id number] Author: KELLI HUBER RN Service: Care Management Author Type: Registered Nurse Type: Care Mgt Initial Assessment Filed: 10/06/2024 09:32 Note Text: CARE MANAGEMENT: ASSESSMENT AND DISCHARGE PLAN SERVICE DATE: October 06, 2024 SERVICE TIME: 9:29 AM PCP: Shay Cardoza MD Primary Contact: Extended Emergency Contact Information Primary Emergency Contact: Javier Patel Address: [address] [place] [address] Mobile Relation: Spouse Secondary Emergency Contact: Corina Lyman Mobile Relation: Friend Admission Status: Inpatient Insurance Provider: MEDICARE A AND B Discharge Planning requested by: Per Department Practice Potential Transition Plans To Be Determined Advance Directives Current Advance Directive: Health Care Power of Fruit Press Operator, Living Will In Chart: Yes Up To Date and Valid: Yes Current Living Arrangements and Support Lives with: Spouse/significant other Type of Residence: Mobile Home Does the patient have to climb stairs at home?: stairs outside the home Support: Family members How do you manage to accomplish the following: Independent: Ambulation, Bathe/Shower, Dress, Meals/Meal Prep, Going to the bathroom, Medication Management Needs Assistance: Transportation to appointments/community Current Services/Equipment Current Post-Acute Service(s): None Discharge Planning Patient Goal(s): Increase strength, General wellness, Be able to go home, Less pain [place] Explained: [place] Given: No Reason Not Given: No placements necessary Are you interested in bedside delivery of your medications? No Discharge Planning Participant(s): Family, Patient Patient/Family Comments: Caregiver Assessment: Caregiver is ready, willing and able to meet the patient's needs as recommended by the inter-professional team: Yes Name of Caregiver: Spouse Javier Transport at Discharge: Transportation Arrangements: Car Destination: Home Needs Prior to Discharge: Needs Prior to Discharge: To Be Determined (possible NG, possible urology consult) Post-Acute Discharge Plan: Patient was admitted on 10/05 with a small bowel obstruction. No surgical interventions as of yet. +insurance Medicare A/B +PCP Dr Cardoza +Rx with [facility] in [facility] i Chart reviewed, spoke to patient and spouse at bedside. Pleasant and cooperative. Patient in from home with family members. Patient lives in a mobile home and states she was independent [employer]. There are four stairs to gain entry into the single-story dwelling. Patient's spouse is available if help is needed. Plan for continued work-up. PT/OT sessions is need arises. Otherwise, anticipate DC back home. No social or safety needs when asked. Patient's spouse will be available to transport home at DC. Current CM needs addressed. No new needs identified at this time. CM will continue to follow clinical course for further transitional, discharge or POC needs. SIGNATURE: Kelli Huber RN PATIENT NAME: Savana Patel DATE: October 06, 2024 TIME: 9:29 AM [facility] 10-06-2024 Telephone encounter Note Noted. Thank you. Patient is currently admitted at [facility]. Doreen Jerome RN [facility] 10-06-2024 Miscellaneous Notes Noted. Thank you. Patient is currently admitted at [facility]. Doreen Jerome RN Patient called back stating they spoke with Doreen and are on the way to [facility] ED now. Pt. called back and states pt. Is worse , he hadn't heard anything , she continues to vomit ,so he is taking her to [place] [facility] for evaluation. Kristan Mraina LPN Last OV 09/08/2024. On Lynparza. Patient states since she woke up this morning she's had severe epigastric cramping/pain (like sharp gas pains), nausea and yellow brown emesis.Unable to eat or drink. Had a BM this morning, normal. Denies fever, SOB, sore throat, congestion or any sick contacts. Voiding normally- no urinary symptoms. Beatrice Chu LPN documented in this encounter [facility] 10-06-2024 Note HNO ID: [id number] Author: OXANA BAPTISTE RN Service: Nursing Author Type: Registered Nurse Type: Nursing Progress Note Filed: 10/06/2024 04:21 Note Text: Notified dr. Kwok that hemoglobin drop from 12.6 to 8.3. [facility] 10-06-2024 Note HNO ID: [id number] Author: SAQIB TAPIA MD Service: General Surgery Author Type: Resident Type: Plan of Care Filed: 10/06/2024 15:02 Note Text: Attestation signed by Saqib Tapia MD at 10/06/2024 3:02 PM I discussed patient, including all pertinent findings, with resident. The patient was not examined by the attending. I reviewed the resident's note and I agreed with the resident's assessment and plan unless otherwise noted. 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 Pt later stated that she was sent to [facility] for management of her malignant SBO because she follows with Dr. Cote. [facility] was contacted and stated that they would like to take over as primary as patient is known to them. Surgical oncology will sign off at this time. Please call or page with any questions or concerns. Cammy Mcginnis DO 10/06/2024 1:[address] [facility] General Surgery Service Pager: For questions or concerns Mon-Fri 6a-5p please page [phone]. After 5pm and on Weekends and Holidays, please page [phone], for ICU page [phone] [facility] 10-06-2024 Telephone encounter Note Reason for Call: Connected to [facility] to speak to . [facility] 10-06-2024 Miscellaneous Notes Reason for Call: Connected to [facility] to speak to . documented in this encounter [facility] 10-05-2024 Telephone encounter Note Patient called back stating they spoke with Doreen and are on the way to [facility] ED now. [facility] Work Phone: 10-05-2024 Telephone encounter Note Pt. called back and states pt. Is worse , he hadn't heard anything , she continues to vomit ,so he is taking her to [facility] for evaluation. Kristan Marina LPN [facility] 10-05-2024 Telephone encounter Note Last OV 09/08/2024. On Lynparza. Patient states since she woke up this morning she's had severe epigastric cramping/pain (like sharp gas pains), nausea and yellow brown emesis.Unable to eat or drink. Had a BM this morning, normal. Denies fever, SOB, sore throat, congestion or any sick contacts. Voiding normally- no urinary symptoms. Beatrice Chu LPN [facility] 10-04-2024 Note HNO ID: [id number] Author: DINORAH PACHECO, SHEILA Service: Nursing Author Type: Registered Nurse Type: Nursing Progress Note Filed: 10/04/2024 09:27 Note Text: Other: no fluid taken off. Pt to go home. [facility] 10-04-2024 Note HNO ID: [id number] Author: DINORAH PACHECO, SHEILA Service: Nursing Author Type: Registered Nurse Type: Nursing Progress Note Filed: 10/04/2024 08:41 Note Text: Other: pt ready for procedure, call light in [facility]24 Telephone encounter Note Patient informed of Dr. Cruz's response, stated understanding. Called the lab and they're unable to add this to today's lab draw. Patient will be coming in for labs/OV on , she would like to have the lab added to that lab appointment. Appointment notes updated. Doreen Jerome RN [facility] 09-29-2024 Miscellaneous Notes Patient informed of Dr. Cruz's response, stated understanding. Called the lab and they're unable to add this to today's lab draw. Patient will be coming in for labs/OV on , she would like to have the lab added to that lab appointment. Appointment notes updated. Doreen Jerome RN Her CBC is okay but hemoglobin a bit lower. Please check labs filed under this encounter when she is able. It will help to determine if there is definitely underlying iron deficiency. If so she will be a candidate for intravenous iron. Js Cruz DO documented in this encounter [facility] 09-29-2024 Telephone encounter Note Her CBC is okay but hemoglobin a bit lower. Please check labs filed under this encounter when she is able. It will help to determine if there is definitely underlying iron deficiency. If so she will be a candidate for intravenous iron. Js Cruz DO [facility] 09-25-2024 Telephone encounter Note Patient notified. Beatrice Chu LPN [facility] 09-25-2024 Miscellaneous Notes Patient notified. Beatrice Chu LPN Can let her know the CA125 appears to be trending lower which is a good thing and suggests the Lynparza may be working well against the cancer. Js Cruz DO documented in this encounter [facility] 09-22-2024 Telephone encounter Note Can let her know the CA125 appears to be trending lower which is a good thing and suggests the Lynparza may be working well against the cancer. Js Cruz DO [facility] 09-22-2024 History of Presen t illness Narrative Patient is here for IVAD port flush/blood draw per [facility] protocol. IVAD is located in right upper chest. Site cleansed with Chloraprep IVAD accessed with a #20 gauge 3/4 non-coring Gripper needle Flush with 5cc's Normal Saline. Blood Return: Good. 10 cc's blood aspirated and discarded. Blood drawn for CBC and CMP. Flushed with: 20 ml Normal Saline. Non-coring needle removed. Paper tape applied to puncture site. Site negative for redness, edema or tenderness. Patient tolerated procedure well. documented in this encounter [facility] 09-21-2024 Telephone encounter Note Care Coordination Triage Note [facility] Situation: Patient reports Other GERD issues Background: Started olaparib 09/04. Assessment: Patient called and left a VM stating she is having issues with GERD and is wondering if she can take omeprazole. Ran a drug interaction report through [employer], no drug interactions noted. Patient will space out omeprazole and Lynparza; she will take omeprazole 30-60 minutes before lunch with a glass of water. Patient will contact this nurse if she continues to have issues. Patient has already elevated the head of the bed and made dietary changes. Recommendations: Per RNCC, patient directed to: Manage at home. Instructions provided. Doreen Jerome RN September 21, 2024 10:[address] [facility] 09-21-2024 Miscellaneous Notes Care Coordination Triage Note [facility] [place] Situation: Patient reports Other GERD issues Background: Started olaparib 09/04. Assessment: Patient called and left a VM stating she is having issues with GERD and is wondering if she can take omeprazole. Ran a drug interaction report through [employer], no drug interactions noted. Patient will space out omeprazole and Lynparza; she will take omeprazole 30-60 minutes before lunch with a glass of water. Patient will contact this nurse if she continues to have issues. Patient has already elevated the head of the bed and made dietary changes. Recommendations: Per RNCC, patient directed to: Manage at home. Instructions provided. Doreen Jerome RN September 21, 2024 10:34 AM documented in this encounter [facility] 09-11-2024 Telephone encounter Note ORAL ANTI-CANCER AGENTS FOLLOW-UP PHONE CALL/VISIT Patient identified by name and date of . YES Patient is on cycle 1, week 2, day 8 of Olaparib for Ovarian Cancer. SYMPTOM ASSESSMENT Headache: No Visual Changes: No Dizziness: No Do you have any periods of confusion? No Mood changes: No Mouth or throat pain: No Appetite: no changes in appetite, appetite fair Taste changes: No Nausea: No Vomiting: No Heartburn: No. Weight gain/loss: No Episodes of palpitations/chest discomfort/pressure/pain No Shortness of breath: No Cough: No Diarrhea: no Constipation: no- taking colace daily which helps prevent constipation. Bladder/Urinary Changes: slight odor that started after taking Lynparza, mostly in the morning. Denies dysuria, hematuria, frequency, or urgency. Pain: No=0 (pain 0 on a scale of 0-10). Fever: No Chills: No Cold sensitivity: No Numbness/weakness: No Edema: No Skin changes: No Itching: No Yellowing of skin or eyes: No Musculoskeletal/joint changes/issues No Bleeding issues: No Activity Level: good Do you need to take naps? Some days I do, some days I don't. Occasional afternoon nap. Does the patient need interventions or same day appointment:No ADDITIONAL FOLLOW UP: The next outreach call is due on: TBD and was scheduled patient instructed to call with any questions or concerns. The following lab tests are due: 09/15 Verified patient is aware of next appointment in the cancer center: Yes. Verified patient verbalized how to correctly refill the oral agent prescription. Yes Does the patient have any financial difficulties affording this medication? No Patient verbalizes understanding of when to seek Medical Attention? YES Patient verbalizes understanding of after-hours and weekend phone number? YES Patient verbalized importance of medication compliance in taking the oral agent as prescribed. Patient instructed to call if unable to comply. Doreen Jerome RN [facility] 09-11-2024 Miscellaneous Notes ORAL ANTI-CANCER AGENTS FOLLOW-UP PHONE CALL/VISIT Patient identified by name and date of . YES Patient is on cycle 1, week 2, day 8 of Olaparib for Ovarian Cancer. SYMPTOM ASSESSMENT Headache: No Visual Changes: No Dizziness: No Do you have any periods of confusion? No Mood changes: No Mouth or throat pain: No Appetite: no changes in appetite, appetite fair Taste changes: No Nausea: No Vomiting: No Heartburn: No. Weight gain/loss: No Episodes of palpitations/chest discomfort/pressure/pain No Shortness of breath: No Cough: No Diarrhea: no Constipation: no- taking colace daily which helps prevent constipation. Bladder/Urinary Changes: slight odor that started after taking Lynparza, mostly in the morning. Denies dysuria, hematuria, frequency, or urgency. Pain: No=0 (pain 0 on a scale of 0-10). Fever: No Chills: No Cold sensitivity: No Numbness/weakness: No Edema: No Skin changes: No Itching: No Yellowing of skin or eyes: No Musculoskeletal/joint changes/issues No Bleeding issues: No Activity Level: good Do you need to take naps? Some days I do, some days I don't. Occasional afternoon nap. Does the patient need interventions or same day appointment:No ADDITIONAL FOLLOW UP: The next outreach call is due on: TBD and was scheduled patient instructed to call with any questions or concerns. The following lab tests are due: 09/15 Verified patient is aware of next appointment in the cancer center: Yes. Verified patient verbalized how to correctly refill the oral agent prescription. Yes Does the patient have any financial difficulties affording this medication? No Patient verbalizes understanding of when to seek Medical Attention? YES Patient verbalizes understanding of after-hours and weekend phone number? YES Patient verbalized importance of medication compliance in taking the oral agent as prescribed. Patient instructed to call if unable to comply. Doreen Jerome RN documented in this encounter [facility] 09-10-2024 Telephone encounter Note Labs have been added to lab appt for this week 09/[address] [facility] 09-10-2024 Miscellaneous Notes Labs have been added to lab appt for this week 09/15 Rosa [facility]ard [facility] Add lab filed under this encounter to be drawn when next here. Js Cruz DO documented in this encounter [facility] 09-09-2024 Telephone encounter Note Add lab filed under this encounter to be drawn when next here. Js Cruz DO [facility] 09-08-2024 Telephone encounter Note [facility] Care Coordination FOLLOW-UP NOTE Patient identified by name and date of . YES Spoke to patient Summary: (Reason for follow-up) Met with patient after her OV. Patient is doing well today with no symptom concerns at this time. This nurse will follow-up as needed. Care Coordination Plan: No further follow up needed at this time Doreen Jerome RN September 08, 2024 [facility] 09-08-2024 [facility] FOLLOW-UP NOTE Patient identified by name and date of . YES Spoke to patient Summary: (Reason for follow-up) Met with patient after her OV. Patient is doing well today with no symptom concerns at this time. This nurse will follow-up as needed. Care Coordination Plan: No further follow up needed at this time Doreen Jerome RN September 08, 2024 Care Coordination Triage Note [facility] [place] Situation: Patient reports Nausea/Vomiting Background: Started Lynparza 09/04/24. Assessment: This morning patient stated she took Lynparza around 5:00 am. Patient stated an hour later, her stomach felt tight and she had a normal BM. Around 6:00 am she felt nauseous and had an episode of emesis. Patient did not see the lynparza tablet in the stomach contents. Patient stated she is feeling better now. Patient denies fever, chills, abdominal pain, diarrhea, or recent bouts of constipation. Patient stated she went out for lunch yesterday and was burping quite a bit afterwards. Patient never started omeprazole. Patient informed she can take omeprazole, would recommend spacing it out from Lynparza by two hours. Patient also informed she can take Tums or Gas-x. Recommendations: Per RNCC, patient directed to: Manage at home. Instructions provided. Patient advised to resume lynparza at her next scheduled time, do not take another dose at this time. Patient informed she can also add compazine an hour before next dose to prevent nausea/vomiting. Patient has not had issues prior to this dose. Patient will call with any other questions/concerns. Doreen Jerome RN September 07, 2024 8:24 AM documented in this encounter 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 Initially underwent pelvic ultrasound on 09/01/2018. Uterus appeared normal. The endometrial stripe was 2.3 mm. Right and left ovaries appeared normal. However there was a large amount of free fluid in the pelvic cul-de-sac. CT A/P 09/08/2018: Liver: No mass. Homogeneous texture. Biliary: No ductal dilatation is seen. Gallbladder is unremarkable. Spleen: Spleen is unremarkable. Pancreas: No mass or duct dilation. Adrenals: Adrenal glands are unremarkable. Kidneys: No mass, calculus or hydronephrosis is seen. GI tract: No bowel dilatation is seen. No evidence of obstruction. Lymph nodes: No evidence of adenopathy. Mesentery/Peritoneum: There is increased soft tissue density best seen in the coronal views extending from the lower abdomen into the pelvic area. This could represent peritoneal involvement with tumor. This is seen on coronal image 37 and axial images 99 through 122. It extends across the anterior aspect of the pelvic area seen on axial image 124. Vasculature: No evidence of dilatation of the abdominal aorta. CT PELVIS: Pelvis: There is a large amount of free fluid or loculated fluid in the pelvis suggesting that there could be an enhancing rim surrounding this fluid is seen on image 127 and measures 10.6 x 6.1 cm. Bones/Soft Tissues: No significant findings identified. Lower thorax: Unremarkable. CA125 was 1153 U/mL. Had employee relations consultant onc evaluation and CT chest unremarkable. Underwent exploratory laparotomy, optimal tumor bulking, total abdominal hysterectomy, bilateral salpingo-oophorectomy, resection of bladder cul-de-sac and pelvic peritoneal disease along with resection of omental caking with super colic omentectomy on 10/06/2018. Pathology: FINAL DIAGNOSIS 1. 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 2. 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 3. Uterus, cervix, bilateral ovaries and fallopian tubes, and bladder/pelvic peritoneum, hysterectomy and excision (C) Left fallopian tube - High grade serous carcinoma (see comment and synoptic report). Right fallopian tube - Positive for involvement by high grade serous carcinoma. Bilateral ovaries - Positive for involvement by high grade serous carcinoma. Uterine serosa - Positive for involvement by high grade serous carcinoma. Bladder/pelvic peritoneum - Positive for involvement by high grade serous carcinoma. Endometrium - Inactive endometrium. Myometrium - Negative for malignancy. Cervix - Negative for malignancy. SYNOPTIC REPORT OF BRAUN PATHOLOGIC FINDINGS UTERUS, CERVIX, BILATERAL TUBES AND OVARIES, BLADDER, AND PELVIC PERITONEUM: Procedure: Total hysterectomy and bilateral salpingo-oophorectomy Omentectomy Peritoneal biopsies Specimen Integrity: Left fallopian tube serosa intact Primary Tumor Site: Left fallopian tube Ovarian Surface Involvement: Present Specify laterality (if applicable): Bilateral Fallopian Tube Surface Involvement: Present Specify laterality (if applicable): Bilateral Tumor Size: Greatest dimension: 1.6 cm Histologic Type: Serous carcinoma Histologic Grade: Not applicable Two-tier grading System: High grade Implants: Not applicable/not sampled Involvement of other tissues/organs: Right ovary Left ovary Right fallopian tube Pelvic peritoneum Omentum Other organs/tissues (specify): Uterine serosa Largest extrapelvic peritoneal focus, macroscopic (greater than 2 cm) Peritoneal Ascitic Fluid, Not submitted/unknown Treatment Effect: No known presurgical therapy Regional Lymph Nodes: No nodes submitted or found Pathologic Stage Classification (pTNM, AJCC 8th ed) TNM Descriptors: Not applicable Primary Tumor (pT): pT3c: Macroscopic peritoneal metastasis beyond pelvis more than 2 cm in greatest dimension with or without metastasis to the retroperitoneal lymph nodes (includes extension to capsule of liver and spleen without parenchymal involvement of either organ) Regional Lymph Nodes (pN): pNX: Cannot be assessed Distant Metastasis (pM): Not applicable/Not confirmed pathologically in this case Previous therapy: 1) 11/11/2018 - 02/03/2019: PACLITAXEL 80 D1,8,15 CARBOPLATIN 6 D1 - Q21D s/p 4 cycles. *neutropenia/thrombocytopenia causing treatment delay. Neulasta OnPro added; switch to Q21D dosing of Taxol with cycles 5 & 6 02/23/2019 - 03/17/2019: PACLITAXEL 135 D1 CARBOPLATIN 6 D1 - Q21D s/p 2 cycles. 2) 06/30/2019 - 06/20/2021: olaparib (LYNPARZA) 150 mg tablet; 300 mg BID. CTs 06/29/2022: Mesentery/Peritoneum: * New 0.4 cm anterior mesenteric fat nodule (8:57) * Confluent infiltrative soft tissue in RIGHT false pelvis surrounding the terminal ileum and ascending colon (cecum deep in pelvis) and probably affecting the sigmoid colon; difficult to precisely measure as it envelops bowel but including bowel measures approximately 4.5 x 2.9 cm (8:101); process extends to the RIGHT psoas muscle * Several small subtle anterior mesenteric fat nodules * No free abdominal fluid MRI pelvis 07/02/2022: Similar imaging findings since CT 06/29/2022, redemonstrating pelvic peritoneal/serosal carcinomatosis involving segments of bowel predominantly in the right anterior pelvis, with confluent soft tissue encasing the proximal ascending colon and causing relative upstream dilation of the low-lying cecum suggesting developing colonic obstruction. No small bowel dilation. No pelvic lymphadenopathy. 3) Carboplatin/paclitaxel x6 cycles. Completed 11/02/2022. Stable disease. 4) Doxil tolerated very well. PD 05/27/2023. 5) El[place]. PD. CTs 05/27/2023 demonstrated progression of disease with an increase in size of irregular soft tissue density in the right pelvis as well as increasing thickening of the wall of the cecum. Presented to the ED at [facility] about a week later. CT scan demonstrated possible cecal volvulus. She was transferred to [facility]. Managed nonsurgically with NG decompression. NG was removed on her second hospital day and her diet was advanced to clear liquids and then the following day advance to full liquids then to gastrointestinal soft diet on day 3. She was discharged home with plans for outpatient follow-up and colectomy with possible cytoreduction. Underwent open right hemicolectomy on 07/14/2023. Initially Dr. Dawson performed laparotomy and excised several lower pelvic lesions. Dr. Jes maldonado performed the right hemicolectomy. He observed kinking of the cecum, proximal ascending colon and some of the distal ileum coming together causing narrowing of the pedicle around which the colon was volvulized. Pathology: FINAL DIAGNOSIS A. 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 B. 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 C. 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 - Background small bowel with acute serositis, possibly procedure-related. - Appendix with fibrous obliteration. - Thirteen lymph nodes, negative for malignancy (0/13). D. Fascia, anterior abdominal wall, excision: - Fat necrosis with associated dystrophic calcification, negative for malignancy. 6) Topotecan with bevacizumab. Current therapy: 1) Olaparib. Presents for ongoing oncologic management. Interim history: Restarted olaparib 09/04. Tolerating well. 1 episode of vomiting yesterday morning. Did not require paracentesis at most recent check. Subjectively she does not feel as much abdominal bloating. Able to lie on her side more comfortably. No abdominal pain. Bowels are now moving on a regular basis with formed stools. She is using senna S. Stable fingertip neuropathy. PMH, medications and allergies personally reviewed by me today. Any changes documented in appropriate section. ROS: Constitutional: Denies episodes of fever and night sweats. Neuro: Denies MACHADO, vertigo, dizziness and imbalance. HEENT: No recent change in voice, vision or hearing. Resp: No cough, wheeze or hemoptysis. CVS: Denies exertional chest pain, PND, orthopnea and LE edema. GI: See above. : Denies dysuria or gross hematuria. Endo: Denies hot flashes. Denies polyuria and polydipsia. Denies heat and cold intolerance. Musculoskeletal: Denies bone, back, joint and muscular pain. Derm: Denies rash. Denies jaundice and diffuse pruritis. Heme: Denies unusual bleeding and unexplained bruising. Psych: Normal mood. PHYSICAL EXAM: Vitals: Blood pressure 123/67, pulse 64, temperature 36.2 C (97.1 F), temperature source Temporal, weight 51.3 kg (113 lb), SpO2 100%. Well-appearing and in no acute distress. EYES: Sclerae are anicteric bilaterally. LYMPHATIC: No palpable cervical or supraclavicular adenopathy. RESPIRATORY: Resonant to percussion all throughout. CARDIOVASCULAR: Rhythm is regular. ABDOMEN: The abdomen is slightly distended. No overt fluid wave. Some fullness in the left lower quadrant but no significant tenderness. SKIN: No jaundice or rash. NGS/biomarkers/auto haulaway driver mutation analyses: BRCA2 mutation (tested 04/2019). Baseline CA125 1153 U/mL. 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 Assessment: -KPS is 90%. -Tolerating olaparib well. -Microcytic anemia. -We discussed plan to continue drug as long obtaining palliative benefit, stable or partial response and tolerating well. Plan: -Continue Lynparza current dose. -Check iron studies. Discussed potential for parenteral iron pending level. -Weekly CBC/CMP x2 months. -OV in about a month. -Continue every 2-week ultrasound with possible paracentesis. -Monitor CA125. -CTs in about 2 months. Portions of this documentation were copied and pasted from my previous office visit note dated 08/01/2024 in order to provide a cohesive continuity of the history. The note has been reviewed and edited and updated as necessary. Js Cruz DO documented in this encounter [facility] 09-08-2024 Telephone encounter Note Sent my chart message. Gladis Reynoso MA [facility] 09-08-2024 Miscellaneous Notes Sent my chart message. Gladis Reynoso MA Spoke with patient and she doesn't want the COVID. She is going to talk with Javier and she will call us back. She may only get the Prev-20. Gladis Reynoso MA Let patient know Dr. Cruz said she was good to get vaccinations. I want her to come in this week for NV if able and get a Prev-20 and high dose flu. I would like her to come back in in 1-2 weeks for a COVID. documented in this encounter [facility] 09-07-2024 History of Presen t illness Narrative Transitional Care Management (TCM) Follow-Up Note PCP Update / Actionable Items N/A N/A - No specialty updates needed Patient Source: In-Network Discharge Follow-up outreach: TCM enrolled patient Outreach Summary: Follow Up: Spoke to patient, she is doing good with the initial problem of Stercoral Colitis and has it under control, she kindly declines anymore calls about this since she has so much going on with Hematology/Oncology Contact: Contact made with patient: Yes Spoke to: Patient Validation: Validated the person spoken to is actively involved in the patient's care. The patient was identified by Name and Date of . I'd like to get an update on how you're doing since our last phone call. Is now a good time to talk? Yes Symptoms: Are you feeling about the same, better or worse since leaving the hospital? Better Weekly Outreach: Additional Outreach Medications: Do you have any questions about taking your medications, including which medications you should be on, or do you need refills on your medications? No Patient Questions / Concerns: Do you have any questions related to your discharge? No Appointment / TCM Follow-Up: Have you had a follow-up visit with your Primary Care Provider or Specialist since you were discharged? Yes Do you need any assistance with scheduling or changing your follow-up appointments? Patient already has an appointment scheduled EDUCATION: N/A Beatrice Francis RN September 07, 2024 11:01 AM documented in this encounter [facility] 09-07-2024 Telephone encounter Note Care Coordination Triage Note Cancer [place] Situation: Patient reports Nausea/Vomiting Background: Started Lynparza 09/04/24. Assessment: This morning patient stated she took Lynparza around 5:00 am. Patient stated an hour later, her stomach felt tight and she had a normal BM. Around 6:00 am she felt nauseous and had an episode of emesis. Patient did not see the lynparza tablet in the stomach contents. Patient stated she is feeling better now. Patient denies fever, chills, abdominal pain, diarrhea, or recent bouts of constipation. Patient stated she went out for lunch yesterday and was burping quite a bit afterwards. Patient never started omeprazole. Patient informed she can take omeprazole, would recommend spacing it out from Lynparza by two hours. Patient also informed she can take Tums or Gas-x. Recommendations: Per RNCC, patient directed to: Manage at home. Instructions provided. Patient advised to resume lynparza at her next scheduled time, do not take another dose at this time. Patient informed she can also add compazine an hour before next dose to prevent nausea/vomiting. Patient has not had issues prior to this dose. Patient will call with any other questions/concerns. Doreen Jerome RN September 07, 2024 8:[address] [facility] 09-05-2024 Telephone encounter Note Spoke with patient and she doesn't want the COVID. She is going to talk with Javier and she will call us back. She may only get the Prev-20. Gladis Reynoso MA [facility] 09-05-2024 Telephone encounter Note Let patient know Dr. Cruz said she was good to get vaccinations. I want her to come in this week for [place] if able and get a Prev-20 and high dose flu. I would like her to come back in in 1-2 weeks [address] [facility] 09-05-2024 History of Presen t illness Narrative Images from the original note were not included. TELEPHONE VISIT PROGRESS NOTE Patient has consented to this telephone encounter, not originating from a related Evaluation & Management service provided within the previous 7 days. NOTE: Cannot be used if an Evaluation & Management service or procedure is planned within the next 24 hours. Gynecologic Oncology Telephone Visit Follow up visit Date of service: 09/05/2024 Persons Present: patient Chief Complaint/Reason: Savana Patel presents over telephone call to discuss CT results. HPI: Ms. 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 Last Office Visit: 06/28/2024 ONCOLOGY HISTORY 1) 10/06/2018: Exploratory laparotomy, total abdominal hysterectomy, bilateral salpingooophorectomy, and bladder and posterior culdesac peritoneum resected en bloc, omentectomy 2) 11/11/2018 - 02/03/2019: PACLITAXEL 80 D1,8,15 CARBOPLATIN 6 D1 - Q21D s/p 4 cycles. *neutropenia/thrombocytopenia causing treatment delay. Neulasta OnPro added; switch to Q21D dosing of Taxol with cycles 5 & 6 02/23/2019 - 03/17/2019: PACLITAXEL 135 D1 CARBOPLATIN 6 D1 - Q21D s/p 2 cycles. 3) 06/30/2019 - 06/20/2021: olaparib (LYNPARZA) 150 mg tablet; 300 mg BID. 07/07/2022 POWER BARKER/ONC TUMOR BOARD Decontamination Technician/Onc Tumor Board Encounter Note Date of Tumor Board Presentation: 07/07/2022 Treating Physicians: Fang Cote MD Age: [age] year old Disease site: Ovary- High-grade serous adenocarcinoma Stage(at tumor board presentation)- Ovarian: Recurrent Care Path Discussion: No Clinical Trial Discussion: No If yes, what clinical trial should be considered? 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 [facility] [place] [address] Type of Tumor Board Review: Recurrence Attendance/Disciplines: POWER BARKER ONC, RAD ONC, Radiology, Pathology, and Genetics Management Options: - Consider treatment holiday - Consider doxil - Consider TTI-162 This abstract and interpretation of the conversation at tumor board has been completed by Rupa Mosquera MD. These are the general recommendations/discussion provided at tumor board conference. The definitive recommendations/discussion will be made by the primary health care team and patient after full discussion as appropriate. 5). Doxil, x6 cycles (12/17/2022- 05/10/2023) Decreased to 30mg/m2 with C3 due to PPE 6) 07/14/2023 Exploratory laparotomy, tumor debulking of abdominal lesion is less than 5 cm, right ureterolysis. Co-surgeon with Venancio for right hemicolectomy and anastomosis PATHOLOGY FINAL DIAGNOSIS A. 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 B. 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 C. 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 - Background small bowel with acute serositis, possibly procedure-related. - Appendix with fibrous obliteration. - Thirteen lymph nodes, negative for malignancy (0/13). D. Fascia, anterior abdominal wall, excision: - Fat necrosis with associated dystrophic calcification, negative for malignancy. Cytology Non-Decontamination Technician FINAL DIAGNOSIS A - PELVIC WASHING Positive for malignant cells. Adenocarcinoma, compatible with patient's known Mullerian primary; see comment Diagnosis Comment Tumor cells are scant and immunoreactive to PAX-8 and Claudin-4 (weak). They are negative for D2-40. The overall cytomorphology in combination with the immunoprofile, concurrent surgical pathology findings and clinico-imaging findings support the intepretation above. 09/22/2023 CT Chest IMPRESSION: No suspicious pulmonary nodules. No new thoracic lymphadenopathy. 09/22/2023 CT ABD/PEL IMPRESSION: 1. There is new mild right-sided hydronephrosis. There is some fat extending along the mid to distal ureter. There is an additional fat stranding in the right lower quadrant in the location of a previously described implant. Fat stranding and may be related to recent surgery, however the presence of small implants cannot be excluded. 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 Patient's laboratory accession # is [id number]. (View full doc under 05/02/19 telephone encounter) CARIS/ NEOMathZeeOMICS: INTERVAL HISTORY: Dr. Cruz changed alma chemo to Gemcitabine on August 03 as a single agent treatment and she has received 2 cycles of gemcitabine most recently on August 10. Her Ca 125 has been rising with most recent value on August 28 of 2509. Since her last visit to see me on June 28, she has had at least 4 outpatient paracentesis performed. Her ascites confirmed presence of malignant cells. Dr. Cruz has decided to give no further Gemcitabine and to begin Olaparib. Dr. Cruz has decided to offer her retreatment with Olaparib. She had previously been treated with this in 2019 through May 2021 and she began the Olaparib yesterday. On July 31, she had an upper and lower GI procedure done as a result of rectal bleedings following a paracentesis. This showed no concerning lesions in the stomach or esophagus. No evidence of cancer involving the colon or the colonic anastomoses. RESULTS: 08/30/2024 CT ABD/PEL W IVCON IMPRESSION: 1. Interval decrease in stone burden in the rectosigmoid colon though moderate stool burden persists. 2. Stable top normal in caliber loops of proximal small bowel. 3. No substantial interval change in the moderate volume abdominal ascites with peritoneal enhancement most compatible with peritoneal carcinomatosis. 4. No substantial interval change in mildly prominent mesenteric lymph nodes. RESULT: Liver: No mass. Biliary: Gallbladder present without evidence of radiopaque stones. Stable pericholecystic free fluid versus mild gallbladder wall edema. Spleen: No mass. No splenomegaly. Pancreas: No mass or duct dilation. Adrenals: No mass. Kidneys: Symmetric nephrograms with no evidence of hydronephrosis. A couple of stable subcentimeter hypodense bilateral too small to characterize renal lesions. GI tract: Stable top normal in caliber proximal small bowel loops. Status post right hemicolectomy. Persistent moderate stool burden in the rectosigmoid colon though slightly decreased when compared with prior study. Lymph nodes: At no substantial interval change in mildly enlarged mesenteric lymph nodes. Mesentery/Peritoneum: After no significant interval change in moderate volume ascites with associated peritoneal enhancement most compatible with peritoneal carcinomatosis. Retroperitoneum: No mass. Vasculature: Abdominal aorta normal in caliber with scattered atherosclerotic calcifications Pelvis: The bladder incompletely distended. Status post hysterectomy. No CT evidence of suspicious adnexal mass. Bones/Soft Tissues: Degenerative changes. No CT evidence of destructive osseous lesion. Lower thorax: A chest CT performed will be reported separately. Localizer images: No additional findings. 08/30/2024 - CT CHEST W IVCON IMPRESSION: 1. Since 07/28/2024, stable appearance of the chest. 2. Stable right upper lobe/right apical reticulonodular changes with associated groundglass opacities. 3. Stable subcentimeter pulmonary nodules. No new or enlarging pulmonary nodules. 4. No suspect intrathoracic lymphadenopathy. RESULT: Limitations: None. Lines, tubes, and devices: Right chest port terminates at the superior cavoatrial junction. Lung parenchyma and airways: There has been no appreciable interval change in the appearance of the lungs. Specifically, there are stable reticulonodular changes with associated mild groundglass opacities in the right apex and subpleural right upper lobe. There is stable mild left apical pleural parenchymal scarring. There are stable less than 6 mm scattered pulmonary nodules within both lungs with insurance claims representative measurements of follicles. Stable 3 mm left fissural-based nodule (10, 54). Stable additional nodular opacities measuring up to 3 mm along the left major fissure (for example series 10, image 66). Stable right nodular fissural based opacity measuring 4 mm (10, 97). Minimal dependent atelectasis. No new or enlarging suspicious pulmonary nodule. Pleural space: No pleural effusion. No pleural thickening. Lower neck, lymph nodes, and mediastinum: The imaged thyroid gland is normal. No lymphadenopathy in the supraclavicular, axillary, mediastinal, or hilar regions. Heart, pericardium, and thoracic vessels: The thoracic aorta and main pulmonary artery are normal in caliber. The cardiac chambers are stable in size. Coronary artery atherosclerotic calcifications are noted, although the study is not optimized for coronary assessment. No pericardial effusion or thickening. Bones and soft tissues: Status post left mastectomy. Abdomen degenerative changes. No CT evidence of destructive osseous lesion. Upper abdomen: See separate dictation of concurrently performed CT of abdomen which will be reported under a separate cover. Localizer images: No additional findings. Data Reviewed: Most recent labs and imaging results. CA 125 (U/mL) Date Value 08/30/2024 2,509 08/01/2024 2,059 07/04/2024 2,540 06/07/2024 1,626 05/09/2024 1,206 04/20/2024 1,255 03/29/2024 1,608 02/29/2024 4,551 01/24/2024 2,495 01/17/2024 1,616 12/27/2023 101 12/06/2023 22 11/12/2023 17 10/20/2023 41 09/23/2023 117 08/26/2023 49 07/30/2023 36 07/02/2023 16 05/07/2023 13 04/09/2023 11 03/12/2023 11 02/12/2023 11 01/14/2023 10 12/07/2022 10 11/23/2022 11 10/30/2022 11 10/09/2022 12 09/18/2022 15 08/28/2022 30 08/04/2022 181 07/20/2022 483 06/18/2022 125 04/13/2022 14 03/23/2022 12 02/24/2022 10 01/19/2022 10 12/23/2021 10 11/24/2021 11 10/27/2021 11 09/29/2021 10 09/01/2021 9 07/07/2021 8 06/09/2021 9 05/12/2021 8 04/14/2021 8 02/19/2021 9 12/09/2020 9 10/23/2020 9 09/27/2020 8 08/23/2020 8 07/26/2020 8 06/28/2020 8 03/28/2020 8 02/01/2020 8 01/01/2020 8 10/20/2019 8 09/22/2019 7 08/25/2019 8 07/28/2019 8 07/20/2019 8 07/14/2019 9 07/07/2019 8 06/20/2019 9 03/27/2019 7 09/12/2018 1,153 Assessment & Plan: 09/10/2020 - Dr. 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 Interval testing since last visit discussed, CA125 reviewed and within normal limits. Patient is up-to-date with health maintenance including mammogram, colonoscopy and advanced directives. Reviewed issues of survivorship including sexual health after cancer treatment, mental health and support systems. Importance of cancer surveillance and early detection of recurrence reinforced. 10/28/2020- Heather Lutz NP (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 Advised her value is stable. Last CT scan was in March 2020. Will order CT of the chest abdomen and pelvis for reevaluation while on PARPi therapy. Patient would like to establish with Dr. Cote, will move her appointment with from 12/[address] Dawson on 12/[address] scans the week before. Continue monthly labs while on PARPi therapy Patient verbalized an understanding and agreed with the plan. Instructed to call if she has any questions or concerns. 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 Patient expressed concern about receiving the COVID vaccine while taking Olaparib. I advised the patient to continue with the COVID vaccine and discussed findings that supported my recommendation with her. Patient is receptive to recommendation. I answered all of the patient's and patient's 's questions and addressed their concerns. Plan to RTC in March [address] before and in June 2021. Continue with monthly CBC, and CA 125 prior to office visit with me in [place]. Patient verbalized an understanding and agreed with the plan. 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 I reviewed the most recent CT results with the patient which showed no acute pathology, no suspicious pulmonary nodules, no thoracic lymphadenopathy in the chest, and no acute pathology, and no mass or lymphadenopathy in the abdomen and pelvis. Ms. Patel received the 2nd COVID vaccine in January, and reports experiencing hot flashes since that time. I believe that this might be due to the Lynparza. Ms. Patel also complains of leg cramps that onset at night. I recommend taking multivitamins daily, as well as eating a diet rich in Potassium. Ms. Patel will continue taking Lynparza until the last day in May. Plan to RTC on June 25, [address], CBC, and CA [address] results show no new evidence of disease, we will discuss stopping her PARP. We will discuss the cancer surveillance timeline at the next visit. 07/04/2021 Stop lynparza. Ok to stop protonix in 2-3 weeks after stopping lynparza. I recommend leaving port for one year. Discuss in one year. Discussed no scans needed unless concerning s/s of recurrence. CA 125 prior to each office visit. 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 Discussed she may have some improvement but hard to say at this point. Recommend KN95 with omicron variant. Discussed covid testing guidelines. Follow up in 3 months 10/01/2021 Impression: History of Ovarian Cancer, most recently had completed Olaparib . CA 125 is 10, stable, but she is worried because it has increased by 1 point. Discussed the significance of small changes in CA 125 and anxiety which often accompany's this. Plan: CA 125 and clinical examination in December. Vulvar dryness and itching. Will prescribe Lotrisone cream. Said she had this in past and it helped her. She will call office if symptoms of itching, and dryness don't resolve in the next couple of weeks. 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 CA 125 is stable. Some bladder symptoms at times. Intermittent. Discussed pelvic floor PT. Will trial melatonin for insomnia and some assistance with constipation. BMD ordered for osteopenia screening. 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 No clinical evidence of disease. She has been off her PARP for approximately 9 months. Repeat CA 125 in 3 months. If CA 125 value is >15, (the roberto value,) will check CT scan as well. Reviewed signs and symptoms of recurrence and told to call with persisting concerns. Follow up in clinic in June for continued surveillance. 04/22/2022 She is feeling a bit better. I reviewed the recent labs she had. Nothing actionable. No clinical evidence of diverticulitis or UTI. She has had a flu shot. I advise getting the covid bivalent booster. CA 125 again in June a couple days before she sees me. She is in agreement with these plans. 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 Recently her CA 125 has jumped from 14 (04/13/22) to 125 (06/18/22). PLAN CT Chest & Abd/Pel to be done in [place] early next week. Contact clinic if CT is scheduled for later than Wednesday to reschedule virtual visit. Follow up Wednesday07/01/[address] to review results of CT scan and discuss her care plan. 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 Would be considered koyuk sensitive. Cancer appears to be involving distal ileum, and possibly sigmoid colon and right psoas. There may be sub-centimeter lesions elsewhere in the abdominal cavity. These findings were reviewed in detail with . Options for management include secondary debulking, possibly with HIPEC, followed with chemotherapy vs chemotherapy alone. To better assess whether secondary debulking would be appropriate, a pelvic MRI will be checked with focus on the possible involvement of the psoas muscle and surrounding blood vessels. If secondary debulking not advised, a CT guided biopsy of the recurrence will be considered as this sample can be sent for somatic tumor testing which can guide future treatment decisions. PLAN Review her case at the next Decontamination Technician/Onc Tumor Conference. MRI to be done in [place], aim for later this week. Follow up Wednesday07/08/22 to review Tumor Board discussion and MRI results. We will confirm the care plan at this time. 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 Her case was discussed in Tumor Board on 07/07/22. 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 If Bevacizumab is started, beginning with cycle number 3 of chemotherapy, consider single agent Bevacizumab following several cycles of carboplatin, Paclitaxel, and Bevacizumab Side effects of treatment plan reviewed, questions answered to patient's satisfaction. She is agreeable with this plan. Symptoms concerning for worsening disease reviewed. Instructed to contact this clinic if she has any questions. PLAN She wishes to receive her chemotherapy in [place] with Dr.Paul Eve DO. A copy of this note will be forwarded to him today. I will reach out to to fascilitate an appointment [phone] Follow up with me at the [facility] 2 weeks after her second cycle of chemotherapy, with a CT prior to that appointment. Will decide if Bevacizumab should be added at this time. 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 She is s/p cycle two of chemotherapy with Carboplatin and Paclitaxel. No unexpected toxicity. Improvement of disease burden on CT Discussed potential addition of Bevacizumab to current chemotherapy plan. Given indication of persistent tethering of cancer to right colon on CT, Bevacizumab is not iadvised at this time. PLAN Continue chemotherapy with carbo/taxol under 's supervision. Repeat CT after cycle 6, Dr.Masci will place order for this. Follow up in this office after cycle 6, to review the CT and discuss maintenance therapy options. 08/31/22 Telephone Call with Corinne Santana RN Spoke with pt who reports that she was given chemo today at [facility] and was accidentally given michael along with her carbo/taxol which she was not supposed to receive per her OV with Eve on 08/28. Pt is still very anxious r/t the error and is calling to be certain the [facility] is aware of the situation. Pt is questioning whether she should expect her bowel to perforate due to this mistake. Explained that this is a known but relatively rare side effect. There is no certainty it will or will not happen. Reviewed S&S of acute abd that would require immediate medical attention. Ensured that pt has on-call employee relations consultant phone number. Pt states she was also given the on-call onc number at [facility]. Also explained that the med error will be reported and go through the proper channels to ensure proper review. Pt remains anxious and requests to speak directly to [facility]. Pt was offered a televisit on 09/02 at 0900 which she accepted. The appt will be scheduled. Pt is appreciative of conversation and information discussed. 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 She is s/p cycle three of chemotherapy with Carboplatin and Paclitaxel. Bevacizumab was given with cycle 3, which was not planned based on CT findings). Presently no concerning symptoms related to bevacizmab administration. Explained that bevacizumab is an approriate agent in her type of cancer, and though not planned to have been given, holding this agent prior to last cycle of chemotherapy was a judgement call. We reviewed serious but uncommon side effect of bowel perforation or peritonitis. Reviewed other side effects of bevacizumab. Reviewed alternative names of bevacizumab including the version she received, Zirabev. Addressed her anxiety surrounding the unplanned dose of bevacizumb given. PLAN Repeat CT after cycle 4 of chemotherapy (taxol and carboplatin) Will readdress potential role for bevacizumab in treatment upon review of future scans Follow up as planned in the office to discuss scans & care plan. 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 Most recent CT imaging showing stable disease burden. 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 Discussed option of continuing with current therapy with understanding that future chemotherapy will not likely result in significant reduction in tumor burden, but stable disease for some time is possible, though with high chance of worsening chemotherapy associated toxicity.. Other treatment options discussed included chemo holiday vs clinical trial vs potential surgery. PLAN Will aim to present ' case at Tumor Board at next available presentation. Follow up via telephone visit to discuss Tumor Board's recommendations & determine her care plan. Ok to go for eye exam Order placed for urine culture to be completed at [facility]. Signs and symptoms of worsening disease reviewed. Contact this office with any questions or concerns prior to that appointment. 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 Chemo toxicity reported; grade 2 neuropathy in hands, fatigue also reported. Post-treatment CT imaging showed stable disease burden, CA 125 stable. Discussed results of Decontamination Technician/Onc Tumor Board. Recommendation is continued chemotherapy with Doxil, single agent, 40 mg/m2 IV every 4 weeks. No growth factor with cycle 1, reassess need for growth factor pending marrow toxicity. Benefits, risks, side effects, and treatment schedule of Doxil discussed. Total number of cycles required cannot be determined at this time, plan for at least 6. Questions answered to patient's satisfaction. PLAN She wishes to receive her chemotherapy under the direction of ; a copy of this note will be shared with him. CT scans to be repeated following 3 treatments. Return to clinic following cycle 3 to review her imaging results and discuss her treatment. Contact this office with any questions or concerns prior to then. 03/09/2023 Recurrent fallopian tube carcinoma. Germline BRCA2 mutation. Last [place] based regimen completed October 2022. Presently on doxil. Dose reduced to 30 mg/m2 for cycle 3 due to PPE. Following 3 cycles of treatment, disease remains stable. She is tolerateing Doxil better than carbo and taxol. Manageable PPE and mucocitis of the mouth. PLAN Repeat CT scan prior to cycle #7 at current dose of Doxil. I provided information regarding chilling of her hands the day before, of and after Doxil treatment. She is also using medicated mouthwash to prevent mouth sores. Regarding perineum advised her to apply Vaseline and may also use small amount of steroid ointment if Vaseline is not sufficient. I will see her in May to review CT scan prior to receiving cycle of treatment. 07/02/2023 Recurrent fallopian tube carcinoma. Germline BRCA2 mutation. Recent cecal volvulus. Last [place] based regimen completed October 2022. Last chemo with doxil was several weeks ago. CBC ok for treatment. Patient scheduled for a laparotomy, removal of right colon, possible ileostomy, removal of other areas of cancer seen in the abdomen and pelvis on 07/14/2023. Consent signed in clinic today. EKG earlier today normal. Briefly reviewed pre-operative instructions and post-operative restrictions. Instructed to stop PO intake on the 23rd after midnight. Informed patient she will receive further details during pre-op visit with a nurse and by anesthesiology. Answered patient's questions. 08/13/2023 Recurrent fallopian tube cancer with recent surgery to resect a cecal volvulus associated with her cancer. Last doxil received 04/2023, her cancer is considered to have progressed on doxil and likely [place] refractory. Given pathology results, she will need additional chemotherapy. We will evaluate her for a clincal trial and if not eligible will consider other standard agents. Ordering FOLR1 testing on tumor; informed patient of drug used if FOLR1 positive. If FOLR1 negative, consider pembrolizumab, oral cytoxan and bevacizumab. Options: Barring participation on a clinical trial, she would like to resume chemo closer to home as she has been doing. I will review results and treatment options over video virtual visit in a couple weeks. Advised stopping Colace for a couple of days, can resume if starts experiencing constipation. Can try OTC nystatin for vaginal pruritus. 12/09/2023 Recurrent fallopian tube cancer, FOLR1 positive, s/p cycle 4 of mirvetuximab under direction of Hem/Onc Dr. Cruz. Grade 1 neuropathy, heading to grade 2. Most troublesome toxicity has been that of her eyes. Reviewed length of treatment based on toxicity to treatment and disease status. Answered patient's questions. I have advised Ms Patel discuss reducing dose to 5 mg/kg/dose and/or extending the interval between treatment with Dr. Cruz. CA 125 slightly higher than last value 3 weeks ago. No evidence of worsening disease per CT abd/pel and exam today. CT chest report not released yet, advised her to have Dr. Cruz review these results with her once posted. I recommend a repeat CT scan [address] scan. Return to see me in early April, shortly after CT. 05/11/2024 Progression of disease while on mirvetuximab soravtansine based on rapid rise in CA 125 and new ascites on CT 01/24/24. Dr Cruz discussed the finding with Ms Patel and decision was made to change therapy to topotecan and bevacizumab. Topotecan day 1 and 8 (3 mg/M2) , michael day 1 (10 mg/kg) She has completed 5 cycles of therapy (last given 05/10/2021). CA 125 has decreased from 4552 (2 mo ago) to 1206. Last CT was done prior to cycle 3 of topotecan and bevacizumab. No measurable tumors are apparent. Ascites only. Advise CT a couple weeks after cycle 6 (approx late May) If ascites is not improving, consider a paracentesis to check for malignant cells. I would like to see her in late May/early June.for in person cancer assessment. 06/28/2024 Recurrent fallopian tube cancer with current regimen being topotecan and bevacizumab. Completed 6 cycles of therapy. Ca 125 remains elevated over the last 3 months. Early satiety and reflux. Ascites does not appear to be responding to treatment well. Advised CT scan following cycle #8 of chemotherapy. Would advise a paracentesis done in the next week or 2. Fluid can be sent for cytology. If her symptoms improve with paracentesis and there is not rapid accumulation of fluid, can remain on current chemotherapy with assessment on CT scan after cycles #8. Possible benefit of an abdominal PleurX catheter was discussed in todays visit. These impressions will be discussed with Dr Cruz, her treating medical oncologist. 09/05/2024 Recurrent fall tube cancer. [place] refractory. Currently had begun treatment with Olaparib. She had previously tolerated this well and had a progression free interval of approximately 1 year. She has not had any durable responses with doxil, mirvetuximab, topotecan with bevacizumab and most recently gemcitabine. She is requiring paracentesis, 2 or 3 times a month. Overall, feeling well. I've advised she have a another CT scan in 2 months as part of assessing response to olaparib treatment. If she is unable to tolerate olaparib, I have advised her to contact the office where I can talk with her in more detail about clinical trial options. A Pleurx catheter may be appropriate at some point and we discussed reasoning behind that. Total Time Spent: 11-20 minutes Documentation from clinic notes of previous visit on 06/28/2024 was copied and pasted, documentation has been reviewed and edited as necessary and is current for today. ATTESTATION Scribe Attestation: By signing my name below, I, Carine Pichardo, attest that this documentation has been prepared under the direction and in the presence of Fang Cote MD. Electronically Signed: Chasity Betancourt. September 05, 2024 11:49 AM. Provider Attestation: I, Dr. Fang Cote, personally performed the services described in this documentation. All medical record entries made by the scribe were at my direction and in my presence. I have reviewed the chart and discharge instructions (if applicable) and agree that the record reflects my personal performance and is accurate and complete. Electronically Signed: Fang Cote MD. September 17, 2024 12:50 PM documented in this encounter [facility] 09-05-2024 Note HNO ID: [id number] Author: FANG COTE MD Service: ? Author Type: Physician Type: Progress Notes Filed: 09/17/2024 12:53 Note Text: TELEPHONE VISIT PROGRESS NOTE Patient has consented to this telephone encounter, not originating from a related Evaluation AND Management service provided within the previous 7 days. NOTE: Cannot be used if an Evaluation AND Management service or procedure is planned within the next 24 hours. Gynecologic Oncology Telephone Visit Follow up visit Date of service: 09/05/2024 Persons Present: patient Chief Complaint/Reason: Savana Patel presents over telephone call to discuss CT results. HPI: Ms. 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 Last Office Visit: 06/28/2024 ONCOLOGY HISTORY 1) 10/06/2018: Exploratory laparotomy, total abdominal hysterectomy, bilateral salpingooophorectomy, and bladder and posterior culdesac peritoneum resected en bloc, omentectomy 2) 11/11/2018 - 02/03/2019: PACLITAXEL 80 D1,8,15 CARBOPLATIN 6 D1 - Q21D s/p 4 cycles. *neutropenia/thrombocytopenia causing treatment delay. Neulasta OnPro added; switch to Q21D dosing of Taxol with cycles 5 AND 6 02/23/2019 - 03/17/2019: PACLITAXEL 135 D1 CARBOPLATIN 6 D1 - Q21D s/p 2 cycles. 3) 06/30/2019 - 06/20/2021: olaparib (LYNPARZA) 150 mg tablet; 300 mg BID. 07/07/2022 POWER BARKER/ONC TUMOR BOARD Decontamination Technician/Onc Tumor Board Encounter Note Date of Tumor Board Presentation: 07/07/2022 Treating Physicians: Fang Cote MD Age: [age] year old Disease site: Ovary- High-grade serous adenocarcinoma Stage(at tumor board presentation)- Ovarian: Recurrent Care Path Discussion: No Clinical Trial Discussion: No If yes, what clinical trial should be considered? 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 GOG [id number] Type of Tumor Board Review: Recurrence Attendance/Disciplines: POWER BARKER ONC, RAD ONC, Radiology, Pathology, and Genetics Management Options: - Consider treatment holiday - Consider doxil - Consider TTI-162 This abstract and interpretation of the conversation at tumor board has been completed by Rupa Mosquera MD. These are the general recommendations/discussion provided at tumor board conference. The definitive recommendations/discussion will be made by the primary health care team and patient after full discussion as appropriate. 5). Doxil, x6 cycles (12/17/2022- 05/10/2023) Decreased to 30mg/m2 with C3 due to PPE 6) 07/14/2023 Exploratory laparotomy, tumor debulking of abdominal lesion is less than 5 cm, right ureterolysis. Co-surgeon with Venancio for right hemicolectomy and anastomosis PATHOLOGY FINAL DIAGNOSIS A. 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 B. 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 C. 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 - Background small bowel with acute serositis, possibly procedure-related. - Appendix with fibrous obliteration. - Thirteen lymph nodes, negative for malignancy (0/13). D. Fascia, anterior abdominal wall, excision: - Fat necrosis with associated dystrophic calcification, negative for malignancy. Cytology Non-Decontamination Technician FINAL DIAGNOSIS A - PELVIC WASHING Positive for malignant cells. Adenocarcinoma, compatible with patient's known Mullerian primary; see comment Diagnosis Comment Tumor cells are scant and immunoreactive to PAX-8 and Claudin-4 (weak). They are negative for D2-40. The overall cytomorphology in combination with the immunoprofile, concurrent surgical pathology findings and clinico-imaging findings support the intepretation above. 09/22/2023 CT Chest IMPRESSION: No suspicious pulmonary nodules. No new thoracic lymphadenopathy. 09/22/2023 CT ABD/PEL IMPRESSION: 1. There is new mild right-sided hydronephrosis. There is some fat extending along the mid to distal ureter. There is an additional fat stranding in the right lower quadrant in the location of a previously described implant. Fat stranding and may be related to recent surgery, however the presence of small implants cannot be excluded. 7 (more content not included)... [facility] 09-05-2024 Instructions Shay Cardoza MD - 09/05/2024 8:44 AM EDT For bowel regime: take two Senna-S in the AM and then a colace mid day and before bed. Keep up on your water intake. You can take two fiber gummies before bed at night. Made by Ivanna teixeira. Screening schedule The following prevention plan is recommended: Depression Screening Never done Shingrix Vaccine(1 of 2) due on 11/07/2013 Cervical Cancer Screening due on 02/11/2018 DTaP,Tdap,Td Vaccine(2 - Td or Tdap) due on 11/29/2020 Covid-19 Vaccine( season) due on 02/20/2024 RSV Vaccine(1 - 1-dose 75+ series) Never done Advance Directive Discussion due on 06/21/2024 WHAT YOU CAN DO TO PREVENT FALLS Many falls can be prevented. By making some changes, you can lower your chances of falling. Four things YOU can do to prevent falls for you* and your caregiver 1. Begin a regular exercise program Exercise is one of the most important ways to lower your chances of falling. It makes you stronger and helps you feel better. Exercises that improve balance and coordination (like Altaf Chi) are the most helpful. Lack of exercise leads to weakness and increases your chances of falling. Ask your doctor or health care provider about the best type of exercise program for you. 2. Have your health care provider review your medicines Have your doctor or pharmacist review all the medicines you take, even [id number] medicines. As you get older, the way medicines work in your body can change. Some medicines, or combinations of medicines, can make you sleepy or dizzy and can cause you to fall. 3. Have your vision checked Have your eyes checked by an eye doctor at least once a year. You may be wearing the wrong glasses or have a condition like glaucoma or cataracts that limits your vision. Poor vision can increase your chances of falling. 4. Make your home safer About half of all falls happen at home. To make your home safer: Remove things you can trip over (like papers, books, clothes, and shoes) from stairs and places where you walk. Remove small throw rugs or use double-sided tape to keep the rugs from slipping. Keep items you use often in cabinets you can reach easily without using a step stool. Have grab bars put in next to your toilet and in the tub or shower. Use non-slip mats in the bathtub and on shower floors. Improve the lighting in your home. As you get older, you need brighter lights to see well. Hang light-weight curtains or shades to reduce glare. Have handrails and lights put in on all staircases. Wear shoes both inside and outside the house. Avoid going barefoot or wearing slippers. For more information, contact: Centers for Disease Control and Prevention www.cdc.gov/injury * This information may not apply if you have certain medical conditions. documented in this encounter [facility] 09-05-2024 History of Presen t illness Narrative Images from the original note were not included. Savana Patel is a 74 year old female here for a Medicare wellness visit. Medicare Health Risk Assessment General Health Good Exercise: Minutes/Day 20 min Exercise: Days/Week daily Alcohol: Daily Use Never Alcohol: Drinks/Day Patient does not drink Alcohol: 6 or more drinks Never Feel off balance No Concerns: Teeth/Dentures no Concerns: Sexual function no Troubled by feelings None of the above Frequency: Eating healthy diet Nearly every day ADLs requiring help None of the above Safety precautions in home/vehicle No Smoke, vape, chews tobacco No Difficulty hearing Yes Difficulty seeing No Current Providers Specialists: I have reviewed specialist-related care of the patient in the medical record. Current care team: Patient Care Team: Shay Cardoza MD as PCP - General (Family Medicine) Doreen Jerome RN as Specialty Sales Trainer (Oncology) Js Cruz DO (Hematology/Oncology) Fang Cote MD (Gynecology) [employer] (Ophthalmology) Vesna Decker RN as Specialty Sales Trainer (Decontamination Technician Oncology) Karishma Ravi APRN.JOSE LUIS as Cushion Spring Assembler (Family Medicine) Bianca Duncan PA-C as Cushion Spring Assembler (Family Medicine) Prachi Cline, SHEILA as Primary Care Synthetic Plasterer Medical/Family history review Reviewed and updated problem list, medical/surgical/family/social history, medications, and allergies. Opioid use review Opioid Medications (last 90 days) No data to display Anxiety/Depression screening PHQ-2 Score: 0 (Lower risk for depression) Recommendation: no further intervention at this time Cognitive screening Score: 4 Cognitive screening reviewed and No further action needed (score 3-5). Functional Observation Was the patient's Timed Up & Go test unsteady or >= 12 seconds? No Advance Care Planning Surrogate decision maker documented and/or advance directives scanned in chart Measurements BP 140/80 Pulse 70 Resp 18 Ht 163.8 cm (5' 4.5) Wt 51.7 kg (114 lb) BMI 19.27 kg/m Vision Screening: Follows with optometry/ophthalmology Assessment/Plan Medicare annual wellness visit, subsequent (Z00.00) - Counseled on healthy diet and regular exercise - Fall avoidance information provided - Personalized prevention plan provided See HPI Chief Complaint Patient presents with: Medicare Wellness Exam HPI Savana Patel is a 74 year old female who presents here today for Chronic Medical Conditions. and Medicare Annual Visit. Patient with Hx of HTN, impaired fasting blood sugar, hyperlipidemia, ovarian Ca with mets to the omentum, YESIKA with panic attacks, anemia as well as those reviewed and addressed below and in ROS Patient sees Hematology/oncology Has recently been told her ovarian cancer is stage 4. They have stopped Chemo at this point. Her cell count was also recently low. Past medical history, appointments, medications, allergies reviewed. Previous Medical History PAST MEDICAL HISTORY Diagnosis Date Actinic keratosis 04/12/2007 Advance directive discussed with patient 08/24/2022 Discussed 08/2022: Up to date DEANDRE positive 07/25/2016 Rheum felt just Arthritis. 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 [place] ANGIOMA///NEVUS, NON-NEOPLASTIC 02/18/2007 Constipation 04/04/2015 Dysmetabolic syndrome X 12/28/2007 Essential hypertension 04/04/2015 GERD without esophagitis 07/24/2020 Hemorrhage of gastrointestinal tract, unspecified History of left mastectomy 05/05/2018 Impaired fasting glucose 11/21/2007 Internal hemorrhoids without mention of complication Iron deficiency anemia due to chronic blood loss 09/02/2023 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 Leg cramps 01/08/2020 Living will on file 07/31/2021 DPA: Javier ( ) Malignant neoplasm of both ovaries (HCC) 10/26/2018 Mixed hyperlipidemia 04/04/2015 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 multiple joints 07/27/2016 Osteopenia 12/28/2012 Other acne 05/29/2008 Other seborrheic keratosis 02/18/2007 Panic attacks 07/18/2012 Primary insomnia 01/29/2022 S/P colectomy 08/06/2023 SOLAR LENGINES///DYSCHROMIA OTHER 02/18/2007 Thrombocytopenia (HCC) 01/29/2022 chronic Trigger ring finger of left hand 07/24/2020 Trigger ring finger of right hand 07/24/2020 Previous Surgical History PAST SURGICAL HISTORY Procedure Laterality Date BX BREAST PERC VACUUM/ROTN 10/26/2007 LEFT COLONOSCOPY FLX DX W/COLLJ SPEC WHEN PFRMD 07/20/2005 COLONOSCOPY FLX DX W/COLLJ SPEC WHEN PFRMD 05/01/2016 normal - 10 year follow up LAPAROSCOPIC HEMICOLECTOMY Right 06/2023 LIG/TRNSXJ FLP TUBE ABDL/VAG APPR UNI/BI Tubal ligation MAST RAD W/PECTORAL MUSCLES AXILLARY LYMPH NODES 11/2007 Left PAST SURGICAL HISTORY OF BACK SURGERY PAST SURGICAL HISTORY OF 10/06/2018 Exploratory laparotomy, total abdominal hysterectomy, bilateral salpingooophorectomy, and bladder and posterior culdesac peritoneum resected en bloc, omentectomy PLCMT LOCALZTN CLIP,PERC,DURING BREAST BX 10/26/2007 LEFT S PORT-A-CATH [id number] 11/09/2018 TONSILLECTOMY PRIMARY/SECONDARY <AGE 12 Tonsillectomy Family History FAMILY HISTORY Problem Relation Age of Onset Ovarian cancer Mother dx 50s Arthritis Father No Known Problems Maternal Grandmother No Known Problems Maternal Grandfather No Known Problems Paternal Grandmother No Known Problems Paternal Grandfather Cancer Maternal Aunt 7 aunts with breast or ovarian cancer. details unknown Patient Allergies ALLERGIES Allergen Reactions Penicillins Rash Sulfa (Sulfonamide * Unknown Current Medications Current Outpatient Medications on File Prior to Visit Medication Sig prochlorperazine (COMPAZINE) 10 mg tablet Take 1 tablet by mouth every 6 hours as needed (For chemotherapy induced nausea and vomiting.). senna-docusate (SENNA-S) 8.6-50 mg per tablet Take 1 tablet by mouth two times a day. olaparib (LYNPARZA) 150 mg tablet Take 2 tablets (300 mg) by mouth two times a day. omeprazole (PRILOSEC) 40 mg capsule Take 1 capsule by mouth once daily. ondansetron (ZOFRAN) 8 mg tablet Take 1 tablet by mouth every 8 hours as needed for nausea/vomiting. acetaminophen (TYLENOL) 500 mg tablet Take 2 tablets by mouth every 8 hours. No current facility-administered medications on file prior to visit. Social History Social History Tobacco Use Smoking status: Never Passive exposure: Never Smokeless tobacco: Never Vaping Use Vaping status: Never Used Substance Use Topics Alcohol use: Never Drug use: Never Review of Symptoms REVIEW OF SYSTEMS GENERAL: No weight loss, malaise or fevers HEENT: Negative for frequent or significant headaches, No changes in hearing or vision, no nose bleeds or other nasal problems NECK: Negative for lumps, goiter, pain and significant neck swelling RESPIRATORY: Negative for cough, hemoptysis, wheezing, COPD, dyspnea or shortness of breath CARDIOVASCULAR: Negative for chest pain, leg swelling, hypertension, CHF or palpitations GI: No nausea, vomiting, or diarrhea, No frequent heartburn or reflux symptoms, and no blood. Has been having issues with constipation. : No history of dysuria, frequency or incontinence MUSCULOSKELETAL: Negative for joint pain or swelling, back pain or muscle pain SKIN: Negative for lesions, rash, and itching PSYCH: Negative for sleep disturbance, mood disorder and recent psychosocial stressors HEMATOLOGY/LYMPHOLOGY: Negative for prolonged bleeding, bruising easily or swollen nodes ENDOCRINE: Negative for heat intolerance, polyuria, polydipsia and goiter. Feels cold easier with the weight loss. NEURO: No history of headaches, syncope, paralysis, seizures or tremors EXAM: BP 140/80 Pulse 70 Resp 18 Ht 163.8 cm (5' 4.5) Wt 51.7 kg (114 lb) BMI 19.27 kg/m BP 126/64 Pulse 70 Resp 18 Ht 163.8 cm (5' 4.5) Wt 51.7 kg (114 lb) BMI 19.27 kg/m Last 6 Encounter Wt Readings: Date: Wt: 09/05/2024 51.7 kg (114 lb) 08/13/2024 52.2 kg (115 lb) 08/10/2024 52.2 kg (115 lb) 08/03/2024 53.8 kg (118 lb 8 oz) 08/01/2024 52.4 kg (115 lb 8 oz) 08/01/2024 52.4 kg (115 lb 8 oz) General Appearance: Well appearing, alert, in no acute distress, well-hydrated, well nourished.. Skin: Skin color, texture, turgor normal, no suspicious rashes or lesions. Head: Normocephalic, no masses, lesions, tenderness or abnormalities. Eyes: Anicteric sclera. Pupils are equally round and reactive to light. Extraocular movements are intact. . Ears: External ears, TM's normal, canals clear. Nose/Sinuses: Nares normal, septum midline, mucosa normal, no drainage or sinus tenderness. Oropharynx: Lips, mucosa, and tongue normal, teeth and gums normal, oropharynx normal. Neck: Supple, no adenopathy; thyroid symmetric, normal size, no bruits. Lungs: Lungs clear to auscultation. No wheezing, rhonchi, rales.. Heart: RRR without murmur, gallop, or rubs. No ectopy. Abdomen: Normal abdominal exam, Abdomen soft, non-tender. Bowel sounds normal. No masses, organomegaly. Extremities: No deformities, edema, skin discoloration, Good capillary refill. . Musculoskeletal: Muscular strength intact, No joint swelling, deformity, or tenderness. Peripheral Pulses: Normal. Neurologic: Gait normal. Sensation to light touch and crainal nerves 2-12 intact.. Health Maintenance List Depression Screening Never done Shingrix Vaccine(1 of 2) due on 11/07/2013 Cervical Cancer Screening due on 02/11/2018 DTaP,Tdap,Td Vaccine(2 - Td or Tdap) due on 11/29/2020 Covid-19 Vaccine( season) due on 02/20/2024 RSV Vaccine(1 - 1-dose 75+ series) Never done Advance Directive Discussion due on 06/21/2024 Annual PCP Team Chronic Disease Visit due on 03/01/2025 BP Controlled (<130/80) due on 08/01/2025 Diabetes Screening due on 08/31/2027 Lipid Screening due on 08/30/2029 Colorectal Cancer Screening due on 07/31/2034 Bone Density Screening Completed Hepatitis C Screening Completed Pneumococcal Vaccine: 50+ Completed Mammogram Screening Discontinued Influenza Vaccine Discontinued Data reviewed Latest Ref Rng 08/26/2023 07/20/2024 08/30/2024 WBC 3.70 - 11.00 k/uL 4.44 4.69 RBC 3.90 - 5.20 m/uL 3.63 (L) 3.83 (L) Hemoglobin 11.5 - 15.5 g/dL 9.3 (L) 9.5 (L) Hematocrit 36.0 - 46.0 % 29.9 (L) 31.6 (L) MCV 80.0 - 100.0 fL 82.4 82.5 MCH 26.0 - 34.0 pg 25.6 (L) 24.8 (L) MCHC 30.5 - 36.0 g/dL 31.1 30.1 (L) RDW-CV 11.5 - 15.0 % 17.4 (H) 19.5 (H) Platelet Count 150 - 400 k/uL 189 294 MPV 9.0 - 12.7 fL 10.3 9.0 Neut% % 63.4 58.8 Abs Neut (ANC) 1.45 - 7.50 k/uL 2.82 2.76 Lymph% % 25.9 26.7 Abs Lymph 1.00 - 4.00 k/uL 1.15 1.25 [place]% % 9.5 12.6 Abs [place] <0.87 k/uL 0.42 0.59 Eosin% % 0.5 0.9 Abs Eosin <0.46 k/uL <0.03 0.04 Baso% % 0.5 0.6 Abs Baso <0.11 k/uL <0.03 0.03 Immature Gran % % 0.2 0.4 IMMATURE GRANS (ABS) <0.10 k/uL <0.03 <0.03 NRBC /100 WBC 0.0 0.0 Absolute nRBC <0.01 k/uL <0.01 <0.01 DTYPE Auto Auto Color Yellow Yellow Clarity Clear Clear Glucose, Urine Negative Negative Bilirubin, Urine Negative Negative Ketones, Urine Negative Negative Specific [place], Ur 1.005 - 1.030 1.023 Hemoglobin/Blood,Ur Negative Negative pH, Urine <8.5 6.5 Protein, Urine Negative Trace ! Urobilinogen 0.2-1.0 EU/dL 1.0 EU/dL Nitrites Negative Negative Leukest Negative Trace ! WBC, Urine 0-5 /HPF 0-5 /HPF RBC, Urine 0-2 /HPF 0-2 /HPF Bacteria Negative /HPF Negative Epithelial Cells /HPF None Seen Hyaline Cast 0 /LPF 0 /LPF Protein, Total 6.3 - 8.0 g/dL 7.0 Albumin 3.9 - 4.9 g/dL 3.6 (L) Calcium 8.5 - 10.2 mg/dL 9.4 Bilirubin, Total 0.2 - 1.3 mg/dL 0.4 Alkaline Phosphatase 34 - 123 U/L 74 AST 13 - 35 U/L 20 ALT 7 - 38 U/L 9 Glucose 74 - 99 mg/dL 96 BUN 7 - 21 mg/dL 19 Creatinine 0.58 - 0.96 mg/dL 0.78 Sodium 136 - 144 mmol/L 135 (L) Potassium 3.7 - 5.1 mmol/L 4.2 Chloride 98 - 107 mmol/L 104 CO2 22 - 30 mmol/L 23 Anion Gap 8 - 15 mmol/L 8 eGFR >=60 mL/min/1.73m 79 Total Cholesterol, Nonfasting <200 mg/dL 169 194 Triglycerides, Nonfasting <150 mg/dL 113 87 HDL Cholesterol, Nonfasting >39 mg/dL 46 41 LDL Cholesterol, Nonfasting <100 mg/dL 100 (H) 136 (H) Non HDL Cholesterol, Nonfasting <130 mg/dL 123 153 (H) VLDL Cholesterol, Nonfasting <30 mg/dL 23 17 Total Chol/HDL Ratio, Nonfasting <5.10 mg/dL 3.67 4.73 LDL/HDL Ratio, Nonfasting <2.54 mg/dL 2.17 3.32 (H) Hemoglobin A1C 4.3 - 5.6 % 4.5 5.2 Estimated Average Glucose mg/dL 82 103 Latest Ref Rng 06/23/2024 GLUCOSE UA (POCT) Negative mg/dL Negative BILIRUBIN UA (POCT) Negative Negative KETONE UA (POCT) Negative mg/dL Negative SPECIFIC GRAVITY UA (POCT) 1.005 - 1.030 1.025 HEMOGLOBIN/BLOOD UA (POCT) Negative Negative PH UA (POCT) 4.5 - 8.0 6.0 PROTEIN UA (POCT) Negative mg/dL 30 ! UROBILINOGEN UA (POCT) Normal E.U./dL 0.2 NITRITE UA (POCT) Negative Negative LEUKOCYTES UA (POCT) Negative Negative COLOR UA (POCT) Yellow CLARITY UA (POCT) Clear A/P ASSESSMENT/PLAN: 1. Medicare annual wellness visit, subsequent - ICD9: V70.0, ICD10: Z00.00 (primary diagnosis) - Counseled on healthy diet and regular exercise - Follow up for annual exam in one year 2. Essential hypertension - ICD9: 401.9, ICD10: I10 - Controlled - Recommend home blood pressure monitoring, to bring results to next visit - Encouraged sodium restriction, DASH or Mediterranean diet - Recommend regular aerobic exercise - off of meds at this time and BP good control. Will monitor. 3. Mixed hyperlipidemia - ICD9: 272.2, ICD10: E78.2 - Controlled - Counseled on healthy diet and regular exercise 4. Impaired fasting glucose - ICD9: 790.21, ICD10: R73.01 - A1c controlled. No changes. 5. GERD without esophagitis - ICD9: 530.81, ICD10: K21.9 - has omeprazole to take as needed. 6. Iron deficiency anemia due to chronic blood loss - ICD9: 280.0, ICD10: D50.0 - manage per oncology 7. 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 Panic attacks - ICD9: 300.01, ICD10: F41.0 - stable not needing meds. 9. Anemia, unspecified type - ICD9: 285.9, ICD10: D64.9 - as per #6 10. Malignant neoplasm of upper-outer quadrant of right breast in female, estrogen receptor positive (HCC) - ICD9: 174.4, V86.0, ICD10: C50.411, Z17.0 - as per #6 11. Carcinoma of fallopian tube, unspecified laterality (HCC) - ICD9: 183.2, ICD10: C57.00 - as per #6 12. Carcinomatosis (HCC) - ICD9: 199.0, ICD10: C80.0 - as per #6 13. 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 14. 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 Malignant neoplasm of both ovaries (HCC) - ICD9: 183.0, ICD10: C56.3 - as per #6 16. Primary insomnia - ICD9: 307.42, ICD10: F51.01 - currently doing ok and not needing meds. 17. Constipation, unspecified constipation type - ICD9: 564.00, ICD10: K59.00 - discussed a plan with her senna-S Two in and AM and then a colace in the afternoon and evening. Also advised on fiber gummies before bed and increased water. 18. Advance directive discussed with patient - ICD9: V65.49, ICD10: Z71.89 - up to date 19. Screening for depression - ICD9: V79.0, ICD10: Z13.31 - DEPRESSION SCREENING F/u 6 months routine. I spent a total of 40 minutes on the date of the service which included preparing to see the patient, [id number] patient care, completing clinical documentation, performing a medically appropriate examination, counseling and educating the patient/family/caregiver and ordering medications, tests, or procedures. Shay Cardoza MD documented in this encounter [facility] 08-31-2024 History of Presen t illness Narrative Transitional Care Management (TCM) Follow-Up Note PCP Update / Actionable Items N/A - No specialty updates needed Patient Source: In-Network Discharge Follow-up outreach: TCM enrolled patient Outreach Summary: She has been feeling okay, better. Contact: Contact made with patient: Yes Spoke to: Patient Validation: Validated the person spoken to is actively involved in the patient's care. The patient was identified by Name and Date of . I'd like to get an update on how you're doing since our last phone call. Is now a good time to talk? Yes Symptoms: Are you feeling about the same, better or worse since leaving the hospital? Better Weekly Outreach: 2nd Outreach Medications: Do you have any questions about taking your medications, including which medications you should be on, or do you need refills on your medications? No Patient Questions / Concerns: Do you have any questions related to your discharge? No Appointment / TCM Follow-Up: Have you had a follow-up visit with your Primary Care Provider or Specialist since you were discharged? Yes Do you need any assistance with scheduling or changing your follow-up appointments? Patient already has an appointment scheduled SDOH: Has Food and Housing been addressed in [employer] in the past 3 months? Yes EDUCATION--: N/A Prachi Cline RN August 31, 2024 4:25 PM documented in this encounter [facility] 08-31-2024 Telephone encounter Note Lab/port scheduled [facility] Work Phone: 08-31-2024 Miscellaneous Notes Lab/port scheduled Per Dr. Cruz, okay to start. CBC/CMP in a week then at OV 09/08. Patient stated she is going to [place] tomorrow so she would prefer to start on Wednesday. Patient started/will start taking olaparib on 09/04/24. PSS- please schedule CBC/CMP at 11:00 am on 09/08. (Port schedule) Thank you. Doreen Jerome RN Patient called and left a VM stating she received lynparza today. Please advise when patient can start and the follow-up plan. Thank you. Doreen Jerome RN documented in this encounter [facility] 08-31-2024 Telephone encounter Note Called pt back to offer f/u scan review with Dr. Cote since she got CTs 08/30. Pt agreeable to schedule. [facility] 08-31-2024 Miscellaneous Notes Called pt back to offer f/u scan review with Dr. Cote since she got CTs 08/30. Pt agreeable to schedule. Spoke with Dr. Cote. Called pt to inform that Dr. Cote is aware that chemo has been changed. Will not be able to see her 09/13. He is happy to have a VV 4/ or see him in office 09/27 and see in office after CTs ordered by Dr. Cruz. Pt does not have CTs scheduled as her gem had been delayed, but will see Kasi AMAYA this week and determine when those will be. Per Dr. Cruz's note pt to have CTs after 2 cycles of gemcitibine/lynparza. After pt has CTs, pt to have scan review with Dr. Cote. Pt verbalized understanding that her 09/[address] Cote was cancelled. documented in this encounter [facility] 03-13-2025 Telephone encounter Note Per Dr. Cruz, okay to start. CBC/CMP in a week then at OV 09/08. Patient stated she is going to [place] tomorrow so she would prefer to start on Wednesday. Patient started/will start taking olaparib on 09/04/24. PSS- please schedule CBC/CMP at 11:00 am on 09/08. (Port schedule) Thank you. Doreen Jerome RN [facility] 08-31-2024 Telephone encounter Note Patient called and left a VM stating she received lynparza today. Please advise when patient can start and the follow-up plan. Thank you. Doreen Jerome RN [facility] 08-30-2024 History of Presen t illness Narrative Radiology Service Progress Note PATIENT NAME: Savana Patel DATE OF SERVICE: August 30, 2024 TIME: 1:58 PM PATIENT IDENTITY VERIFICATION COMPLETED USING TWO (2) IDENTIFIERS: Name and Date of confirmed by patient verbally. FALL SCREENING: Has the patient had 2 falls in the last year or 1 fall with injury or currently using an Ambulatory Assistive Device (Walker, Cane, Wheelchair, Crutches, etc.)? No PATIENT GENDER DATA: Assigned female at . status: : No status: NO. PATIENT RELEVANT IMPLANT DATA REVIEWED: Yes PATIENT PRESENTS WITH AN IMPLANTABLE OR ATTACHED FRETTED STRING INSTRUMENT REPAIRER: No RADIOLOGY DEPARTMENT: CT; Exam(s) Completed: Chest Abdomen Pelvis PERIPHERAL IV DATA: power port accessed by Xierkang SIGNED BY: RT Laurie(R) August 30, 2024 1:58 PM documented in this encounter [facility] 08-29-2024 Telephone encounter Note ORAL ANTI-CANCER AGENTS EDUCATION patient called today for oral medication education of lynparza for Ovarian Cancer Anticipated/Scheduled start date: TBD READINESS TO LEARN Cognitive Ability: Alert and oriented Motivation to Learn: Interested Family Support: High - Very involved in pt care Instruction Provided to: Patient Patient learns best by: Multiple Methods Factors affecting learning: None Physical limitation affecting learning: None BRAUN ASSESSMENT: 1.) Verified that patient knows that the oral agents are for cancer and are taken by mouth. Yes 2.) Medication review completed during visit. Yes 3.) Patient is able to swallow pills. Yes 4.) Patient is able to read the drug label/information. Yes 5.) Patient is able to open the medication bottles and packages. Yes 6.) Has patient taken other pills for cancer? YES, please explain: has taken Lynparza 7.) Is patient experiencing any symptoms that would affect their ability to keep down pills, for example nausea or vomiting? No 8.) Verified that patient understands prescription delivery, benefit investigation and refill process. Yes DRUG-SPECIFIC EDUCATION: 1.) Verified patient knows the drug name. Yes 2.) Verified patient understands the dose and schedule of oral anti cancer agent. Yes 3.) Verified patient knows what to do if a medication dose is missed. Yes 4.) Verified patient understands where to store the drug. Yes 5.) Verified patient understands potential side effects and how to manage them. Yes 6.)Verified patient understands handling precautions of oral anti cancer agent. Yes 7.) Verified patient was given written instructions and understands when and whom to call with questions. Yes 8.) Verified patient understands where and how to return drug. Yes 9.) Verified patient received drug specific adult education handout and neutropenic wallet card Yes EVALUATE: The patient demonstrated an understanding of all the above education using the teach-back method. Yes Instructed to call us with any questions, concerns, and/or unresolved symptoms. Will continue to follow up and provide reinforcement of teaching topics as needed. Doreen Jerome RN T [facility] 08-29-2024 Miscellaneous Notes ORAL ANTI-CANCER AGENTS EDUCATION patient called today for oral medication education of lynparza for Ovarian Cancer Anticipated/Scheduled start date: TBD READINESS TO LEARN Cognitive Ability: Alert and oriented Motivation to Learn: Interested Family Support: High - Very involved in pt care Instruction Provided to: Patient Patient learns best by: Multiple Methods Factors affecting learning: None Physical limitation affecting learning: None BRAUN ASSESSMENT: 1.) Verified that patient knows that the oral agents are for cancer and are taken by mouth. Yes 2.) Medication review completed during visit. Yes 3.) Patient is able to swallow pills. Yes 4.) Patient is able to read the drug label/information. Yes 5.) Patient is able to open the medication bottles and packages. Yes 6.) Has patient taken other pills for cancer? YES, please explain: has taken Lynparza 7.) Is patient experiencing any symptoms that would affect their ability to keep down pills, for example nausea or vomiting? No 8.) Verified that patient understands prescription delivery, benefit investigation and refill process. Yes DRUG-SPECIFIC EDUCATION: 1.) Verified patient knows the drug name. Yes 2.) Verified patient understands the dose and schedule of oral anti cancer agent. Yes 3.) Verified patient knows what to do if a medication dose is missed. Yes 4.) Verified patient understands where to store the drug. Yes 5.) Verified patient understands potential side effects and how to manage them. Yes 6.)Verified patient understands handling precautions of oral anti cancer agent. Yes 7.) Verified patient was given written instructions and understands when and whom to call with questions. Yes 8.) Verified patient understands where and how to return drug. Yes 9.) Verified patient received drug specific adult education handout and neutropenic wallet card Yes EVALUATE: The patient demonstrated an understanding of all the above education using the teach-back method. Yes Instructed to call us with any questions, concerns, and/or unresolved symptoms. Will continue to follow up and provide reinforcement of teaching topics as needed. Doreen Jerome RN documented in this encounter [facility] 08-28-2024 Telephone encounter Note Questions answered. Rtu Mcintyre LPN [facility] 08-28-2024 Miscellaneous Notes Questions answered. Rut Mcintyre LPN Patient has been scheduled for the below requested appointments but had many questions and was transferred to the nurse to see if she could answer Savana's questions Rosa Willard Pss PSS- Schedule stat CT's with same day labs CBC/CMP/CA 125 then OV several days after CTs. Beatrice Chu LPN OV several days after CTs. Js Cruz DO Cancel lab apt 08/30 and OV and tx apt on 08/31. Schedule stat CT with same day labs CBC/CMP/CA [address] Cruz- does pt need OV here as well as follow up with Dr Cote? Rut Mcintyre LPN Gemcitabine is going to be discontinued. My intention is to treat with Lynparza alone. Lets go ahead and schedule for another set of CT scans. Will need CT chest, abdomen pelvis. Please pend orders for STAT. CBC/CMP/CA 125 when she is here for CT scans. Js Cruz DO Patient is scheduled to see Kasi on 08/30/2024 and have Gemzar on 08/31/2024. Patient has been approved for free Lynparza (separate note sent to [facility]). Patient to contact office when she receives Lynparza. Patient is aware CT's will be determined after OV with Kasi. Beatrice Chu LPN From phone note 08/25/2024 (Dr. Cote)- Spoke with Dr. Cote. Called pt to inform that Dr. Coet is aware that chemo has been changed. Will not be able to see her 09/13. He is happy to have a VV 09/20 or see him in office 09/27 and see in office after CTs ordered by Dr. Cruz. Pt does not have CTs scheduled as her gem had been delayed, but will see Kasi AMAYA this week and determine when those will be. Per Dr. Cruz's note pt to have CTs after 2 cycles of gemcitibine/lynparza. After pt has CTs, pt to have scan review with Dr. Cote. Pt verbalized understanding that her 09/[address] Cote was cancelled. Patient called stating that her appointment with Dr. Cote was canceled for 09/13. She states [facility] called her and stated she was to have CT scans every so often and she has not been scheduled. Patient is asking us to look into this and contact her when able. documented in this encounter [facility] 08-28-2024 Telephone encounter Note Patient has been scheduled for the below requested appointments but had many questions and was transferred to the nurse to see if she could answer Savana's questions Rosa Willard Pss [facility] 08-28-2024 Telephone encounter Note PSS- Schedule stat CT's with same day labs CBC/CMP/CA 125 then OV several days after CTs. Beatrice Chu LPN [facility] 08-28-2024 Telephone encounter Note OV several days after CTs. Js Cruz DO [facility] 08-28-2024 Telephone encounter Note Cancel lab apt 08/30 and OV and tx apt on 08/31. Schedule stat CT with same day labs CBC/CMP/CA [address] Cruz- does pt need OV here as well as follow up with Dr Cote? Rut Mcintyre LPN [facility] 08-25-2024 Telephone encounter Note Gemcitabine is going to be discontinued. My intention is to treat with Lynparza alone. Lets go ahead and schedule for another set of CT scans. Will need CT chest, abdomen pelvis. Please pend orders for STAT. CBC/CMP/CA 125 when she is here for CT scans. Js Cruz DO [facility] 08-25-2024 Telephone encounter Note Patient is scheduled to see Kasi on 08/30/2024 and have Gemzar on 08/31/2024. Patient has been approved for free Lynparza (separate note sent to [facility]). Patient to contact office when she receives Lynparza. Patient is aware CT's will be determined after OV with Kasi. Beatrice Chu LPN [facility] 08-25-2024 Telephone encounter Note From phone note 08/25/2024 (Dr. Cote)- Spoke with Dr. Cote. Called pt to inform that Dr. Cote is aware that chemo has been changed. Will not be able to see her 09/13. He is happy to have a VV 4/2 or see him in office 4/9 and see in office after CTs ordered by Dr. Cruz. Pt does not have CTs scheduled as her gem had been delayed, but will see Kasi AMAYA this week and determine when those will be. Per Dr. Cruz's note pt to have CTs after 2 cycles of gemcitibine/lynparza. After pt has CTs, pt to have scan review with Dr. Cote. Pt verbalized understanding that her 09/[address] Cote was cancelled. [facility] 08-25-2024 Telephone encounter Note Patient called stating that her appointment with Dr. Cote was canceled for 09/13. She states [facility] called her and stated she was to have CT scans every so often and she has not been scheduled. Patient is asking us to look into this and contact her when able. [facility] Work Phone: 08-25-2024 Telephone encounter Note Spoke with Dr. Cote. Called pt to inform that Dr. Cote is aware that chemo has been changed. Will not be able to see her 09/13. He is happy to have a VV 4/2 or see him in office 4/9 and see in office after CTs ordered by Dr. Cruz. Pt does not have CTs scheduled as her gem had been delayed, but will see Kasi AMAYA this week and determine when those will be. Per Dr. Cruz's note pt to have CTs after 2 cycles of gemcitibine/lynparza. After pt has CTs, pt to have scan review with Dr. Cote. Pt verbalized understanding that her 09/[address] Cote was cancelled. [facility] 08-24-2024 History of Presen t illness Narrative Transitional Care Management (TCM) Follow-Up Note PCP Update / Actionable Items N/A - No specialty updates needed Patient Source: In-Network Discharge Follow-up outreach: TCM enrolled patient Outreach Summary: She has been feeling good. Denies nausea or vomiting Contact: Contact made with patient: Yes Spoke to: Patient Validation: Validated the person spoken to is actively involved in the patient's care. The patient was identified by Name and Date of . I'd like to get an update on how you're doing since our last phone call. Is now a good time to talk? Yes Symptoms: Are you feeling about the same, better or worse since leaving the hospital? Good Weekly Outreach: 1st Outreach Medications: Do you have any questions about taking your medications, including which medications you should be on, or do you need refills on your medications? No Patient Questions / Concerns: Do you have any questions related to your discharge? No Appointment / TCM Follow-Up: Have you had a follow-up visit with your Primary Care Provider or Specialist since you were discharged? No Do you need any assistance with scheduling or changing your follow-up appointments? Patient already has an appointment scheduled EDUCATION: N/A Prachi Cline RN August 24, 2024 11:40 AM documented in this encounter [facility] 08-23-2024 Telephone encounter Note SOCIAL WORK FOLLOW UP NOTE: [facility] Date of service: August 23, 2024 Savana Patel is being seen for a follow up social work visit. Today's visit includes: spouse and patient TOPICS ADDRESSED: finances - Forms received back from pt for [employer] assistance re-enrollment. SW completed HCP form and reviewed with physician and obtained his signature. SW successfully faxed this date and sent to internal scanning. PLAN: Assist with financial support applications and Continue follow up as needed F/U APPOINTMENT: PRN Assigned SW listed in Care Team tab: Yes KAROLINE Mcguire-Lester [facility] 08-23-2024 Miscellaneous Notes SOCIAL WORK FOLLOW UP NOTE: [facility] Date of service: August 23, 2024 Savana Patel is being seen for a follow up social work visit. Today's visit includes: spouse and patient TOPICS ADDRESSED: finances - Forms received back from pt for Lynparza assistance re-enrollment. SW completed HCP form and reviewed with physician and obtained his signature. SW successfully faxed this date and sent to internal scanning. PLAN: Assist with financial support applications and Continue follow up as needed F/U APPOINTMENT: PRN Assigned SW listed in Care Team tab: Yes MALA Mcguire documented in this encounter [facility] 08-16-2024 Telephone encounter Note Patient informed that Dr. Cruz is aware. We received a message from [facility] that they are going to try to enroll her in the free drug program for lynparza. Patient stated understanding. Doreen Jerome RN [facility] 08-16-2024 Miscellaneous Notes Patient informed that Dr. Cruz is aware. We received a message from [facility] that they are going to try to enroll her in the free drug program for lynparza. Patient stated understanding. Doreen Jerome RN Patient called stating that insurance company denied Lynparza. documented in this encounter [facility] 08-16-2024 Telephone encounter Note Patient called stating that insurance company denied Lynparza. [facility] Work Phone: 08-15-2024 Telephone encounter Note Canceled treatment for this week. Spoke with patient and gave her # for IR in [place] [facility] Work Phone: 08-15-2024 Miscellaneous Notes Canceled treatment for this week. Spoke with patient and gave her # for IR in [place] Spoke to Dr. Cruz. Cancel treatment this week. Resume with next cycle. Patient informed. PSS- Patient is asking if we can help her schedule an image guided paracentesis for next week in [place]. Patient has a standing order. Please contact patient to schedule or if you could give her the number to call, that would be great. Thank you. 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 YES Patient with symptom issues: No Pain: rectum is sore Is patient followed by Palliative Medicine? No Palliative Medicine follow up: N/A Any new barriers to care identified? No Any new referrals needed? No Social Work Follow-Up visit scheduled? No Taking senna-s, 2 tablets BID. Having BM's. Does the patient need interventions no or same day appointment: No MEDICATION ADHERENCE Patient discharged with prescriptions? Yes, senna-s. Discharge prescriptions filled: Yes Patient understands when to take prescriptions: Yes FOLLOW UP Patient scheduled for follow-up appointment within 5 business days of discharge? No, Other: does not need follow-up Patient reminded of follow-up appointment with [facility] provider Discussed: patient would like to cancel treatment this week. PATIENT EDUCATION / REINFORCEMENT Patient verbalizes understanding of when to seek Medical Attention? YES Patient verbalizes understanding of after hours and weekend phone number? YES Doreen Jerome RN Patient states she was at [facility] over the weekend and states she has treatment this week. She doesn't feel like she is up to having treatment and is asking if we can move out a week. Please advise patient. documented in this encounter [facility] 08-15-2024 Telephone encounter Note Spoke to Dr. Cruz. Cancel treatment this week. Resume with next cycle. Patient informed. PSS- Patient is asking if we can help her schedule an image guided paracentesis for next week in [place]. Patient has a standing order. Please contact patient to schedule or if you could give her the number to call, that would be great. Thank you. Doreen Jerome RN 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 YES Patient with symptom issues: No Pain: rectum is sore Is patient followed by Palliative Medicine? No Palliative Medicine follow up: N/A Any new barriers to care identified? No Any new referrals needed? No Social Work Follow-Up visit scheduled? No Taking senna-s, 2 tablets BID. Having BM's. Does the patient need interventions no or same day appointment: No MEDICATION ADHERENCE Patient discharged with prescriptions? Yes, senna-s. Discharge prescriptions filled: Yes Patient understands when to take prescriptions: Yes FOLLOW UP Patient scheduled for follow-up appointment within 5 business days of discharge? No, Other: does not need follow-up Patient reminded of follow-up appointment with [facility] provider Discussed: patient would like to cancel treatment this week. PATIENT EDUCATION / REINFORCEMENT Patient verbalizes understanding of when to seek Medical Attention? YES Patient verbalizes understanding of after hours and weekend phone number? YES Doreen Jerome RN [facility] 08-15-2024 Telephone encounter Note Patient states she was at [facility] over the weekend and states she has treatment this week. She doesn't feel like she is up to having treatment and is asking if we can move out a week. Please advise patient. [facility] 08-15-2024 History of Presen t illness Narrative Transition Care Management (TCM) Initial Outreach PCP Update / Actionable Items HRTIC TCM Home Visit Referral Source of Stratification: [facility] Admission Status: Discharged Readmission Risk Score: 14 Patient meets program referral criteria: No Patient does not qualify for High Risk TCM Home Visit program due to: Readmission Risk Score does not meet criteria Disposition: Patient does not qualify for HRTIC, will provide TCM outreach follow-up for 30-days Patient Source: In-Network Discharge Initial outreach: TCM discharge report Outreach Summary: Overall she is feeling okay, better. Denies nausea or vomiting Denies bleeding She has had 2-3 BM's since being home Denies SOB or chest pain Onc 08/30 PCP 09/05- declines sooner Patient discharged from [facility] Discharge date: 08/14/24 Admitted for: Hematemesis Readmission Risk: 14 Value-Based Contract: ACO Contact: Contact made with patient: Yes Hi, my name is Prachi Cline RN and I am calling from the [facility] on behalf of your Primary Care Provider, Shay Cardoza MD. I understand you were recently in the hospital, so I am calling to check in with you to ensure you are feeling well now that you are home. May I ask you a few questions related to your hospital stay and well-being? Yes Spoke to: Patient Validation: Validated the person spoken to is actively involved in the patient's care. The patient was identified by Name and Date of . Symptoms: Are you feeling about the same, better or worse since leaving the hospital? Better Medications: Do you have any questions about taking your medications, including which medications you should be on, or do you need refills on your medications? No Medication Review: Full medication review completed Discharge Instructions: Your Discharge Instructions / After Visit Summary (AVS) are important in guiding you through the recovery process. Do you have any questions related to your discharge instructions? No Home Care: Were you discharged with home care? No Equipment: Do you have all the necessary equipment and supplies needed at your home? Yes Social: Your mental health is as important to us as your physical health. Would you mind answering a few questions on this topic? Yes On the Storyboard review: Food Insecurity, Transportation, Depression, Housing, and Financial Strain: Complete any SDOHs, listed above, if not addressed in the past 3 months. If all SDOHs, listed above, have been addressed within the last 3 months, confirm responses and update any SDOHs that have changed. Action Taken: No needs verbalized. No action required. Declines social work consult Follow-Up Appointment: [Appointment / TCM Follow-up within 14 days] I would like to help you schedule a hospital follow-up virtual or telephone visit with your PCP. This is a great way for you to connect with your provider to ensure you have safely transitioned home. If you are agreeable, I will send your request to a medical office scheduler who will contact and assist you with that appointment. This will give you an opportunity to ask any questions or address any concerns you may have with your PCP. Inform the patient that if they have any questions or concerns prior to that appointment, to call their PCP's office right away. Appointment Action: No action required, patient declines appointment. Education details: Patient and family educated on issues/questions related to reason for admission, transition of care topics, and follow-up needed upon discharge. Prachi Cline RN August 15, 2024 9:26 AM documented in this encounter [facility] 08-14-2024 Note HNO ID: [id number] Author: GARIMA WHITE RPh Service: Pharmacy Author Type: Pharmacist Type: Plan of Care Filed: 08/14/2024 16:10 Note Text: DISCHARGE MEDICATION REVIEW BY PHARMACY Patient Name: Savana Patel Account #: Data Unavailable Admission Date: 08/13/2024 Date of Contact: August 14, 2024 Time of Contact: 4:10 PM Medication list was reviewed by a Pharmacist for drug interactions or drug related problems:Yes Below is a summary of pharmacist recommendations discussed with LIP: No recommendations at this time from discharge medication list. Garima White PharmD, [facility] Pager: [phone] 08/14/2024 4:10 PM Medication List START taking these medications lidocaine-prilocaine 2.5-2.5 % cream Commonly known as: EMLA Apply to affected area two times a day as needed (rectal pain) for up to 7 days. CHANGE how you take these medications senna-docusate 8.6-50 mg per tablet Commonly known as: SENNA-S Take 1 tablet by mouth two times a day. What changed: when to take this reasons to take this CONTINUE taking these medications acetaminophen 500 mg tablet Commonly known as: TYLENOL Take 2 tablets by mouth every 8 hours. olaparib 150 mg tablet Commonly known as: LYNPARZA Take 2 tablets (300 mg) by mouth two times a day. omeprazole 40 mg capsule Commonly known as: PriLOSEC Take 1 capsule by mouth once daily. ondansetron 8 mg tablet Commonly known as: ZOFRAN Take 1 tablet by mouth every 8 hours as needed for nausea/vomiting. STOP taking these medications COLACE ORAL Where to Get Your Medications These medications were sent to [facility] [address] [place], [place] [id number] - [address] [place] [address] - [phone] [place] [id number] lidocaine-prilocaine 2.5-2.5 % cream senna-docusate 8.6-50 mg per tablet [facility] 08-14-2024 Note HNO ID: [id number] Author: KANDI DUNN RN Service: Care Management Author Type: Registered Nurse Type: Care Mgt Progress Note Filed: 08/15/2024 15:13 Note Text: CARE MANAGEMENT UTILIZATION REVIEW COMMITTEE PROVIDER LIABLE (Admission Status Discrepancy Review) Admission Date: 08/13/2024 Patient's Initial Order is: Inpatient Date Received: August 15, 2024 Date Reviewed: August 15, 2024 Under the authority of the Utilization Management Committee, the Physician Advisor, Dr. Anthony Chawla, has reviewed the medical record of the above patient. The following recommendation has been made by the Physician Advisor, based upon the current available medical information as of the date of this determination. The patient is appropriate for: Observation Rationale for this decision: Lack of medical necessity for inpatient admission and less than 2 midnight stay SIGNATURE: Kandi Dunn RN PATIENT NAME: Savana Patel DATE: August 15, 2024 TIME: 3:13 PM Disclaimer: The information in this determination is to be used for utilization management purposes only. The information and recommendation is made pursuant to Medicare Hospital Conditions of Participation (442 CFR Part 482) and is neither a judgment nor an assessment with regard to the appropriateness or quality of the clinical care. Nothing in this document may be used to limit clinical services provided to the above named patient. This form should be used as one part of the process utilized to ensure compliance with [facility] policy regarding Inpatient Admission and Observation Services. The definitions of Inpatient and Observation used in making the determination above are those provided in Medicare Benefit Policy Manual Chapter 1, Section 1 and 10, Chapter 6, Section 20, and the Medicare Claims Processing Manual Chapter 1, Section 50.3 and Chapter 4, Section 290. This recommendation should be considered as only one factor in determining the patient's final level of service along with other pertinent documentation such as the treating physician's order as documented evidence of concurrence. [facility] 08-14-2024 Note HNO ID: [id number] Author: CRISTOFER GUEVARA MD Service: Hospital Medicine Author Type: Resident Type: Progress Notes Filed: 08/14/2024 17:29 Note Text: Attestation signed by Cristofer Guevara MD at 08/14/2024 5:29 PM I saw and evaluated the patient. Discussed with the resident and agree with resident's findings and plan as documented in the resident's note. [facility] PROGRESS NOTE PATIENT NAME: Savana Patel ADMITTED FOR: LOS: 0 days Subjective HPI Ms. 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 Patient reported being constipated since 08/10/2024 following her new chemotherapy regimen. They reported taking senna 4 times daily as needed without relief. Patient developed nausea, and had 1 episode of brown vomiting at 9 AM, during which they called their doctor who recommended ED. Denied chest pain, shortness of breath, diaphoresis, nausea, vomiting, palpitations, dizziness, lightheadedness, syncope, headache, heartburn, fever, chills, abdominal pain, dark stool, blood per rectum, anxiety, or changes in bowel/urinary habits INTERVAL EVENTS Patient with medium sized formed bowel movement overnight following initial enema. No stool output following second enema thus far. Patient seen at bedside in no acute distress. She states she had one, large, formed bowel movement overnight following her first enema. No further bowel movements. RN states those charted overnight were mostly small amounts of liquid. The patient denies abdominal pain, nausea, vomiting, lightheadedness, melena, hematochezia. She reports good appetite and would like to eat. Has been tolerating sips of water well. Today's pertinent results include: WBC 3 (5) Hgb 8.4, stable Objective OBJECTIVE BP 134/72 Pulse 79 Temp 36.8 ?C (98.2 ?F) (Oral) Resp 15 Wt 52.2 kg (115 lb) SpO2 99% BMI 19.74 kg/m? Temp (24hrs), Av.8 ?C (98.2 ?F), Min:36.8 ?C (98.2 ?F), Max:36.8 ?C (98.2 ?F) Body mass index is 19.74 kg/m?., Hemoglobin A1C (%) Date Value 08/26/2023 4.5 07/07/2021 5.5 No intake or output data in the 24 hours ending 08/14/24 0946 Physical Exam Constitutional: General: She is not in acute distress. Appearance: Normal appearance. She is ill-appearing (chronically). HENT: Mouth/Throat: Mouth: Mucous membranes are dry. Pharynx: Oropharynx is clear. Eyes: General: No scleral icterus. Extraocular Movements: Extraocular movements intact. Conjunctiva/sclera: Conjunctivae normal. Pupils: Pupils are equal, round, and reactive to light. Cardiovascular: Rate and Rhythm: Normal rate and regular rhythm. Pulses: Normal pulses. Heart sounds: Normal heart sounds. No murmur heard. No friction rub. Pulmonary: Effort: Pulmonary effort is normal. No respiratory distress. Breath sounds: Normal breath sounds. No wheezing or rales. Abdominal: General: Bowel sounds are normal. There is distension (mild, no fluid wave appreciated). Palpations: Abdomen is soft. There is no mass. Tenderness: There is no abdominal tenderness. There is no guarding or rebound. Musculoskeletal: Right lower leg: No edema. Left lower leg: No edema. Skin: General: Skin is warm and dry. Capillary Refill: Capillary refill takes less than 2 seconds. Neurological: Mental Status: She is alert and oriented to person, place, and time. Psychiatric: Mood and Affect: Mood normal. Thought Content: Thought content normal. LABORATORY: CBC: Recent Labs 08/14/24 0523 08/13/24 1527 08/10/24 0941 WBC 3.96 5.18 2.97* HB 8.4* 8.6* 9.1* HCT 28.0* 28.2* 29.9* PLT 128* 142* 151 MCV 83.6 82.9 81.9 RDWCV 18.1* 17.8* 17.9* NEUTP -- 89.1 48.6 ABSNEUT -- 4.62 1.44* LYMPHP -- 8.9 35.0 MONOP -- 1.4 15.8 EODINP -- 0.0 0.3 COAG: Recent Labs 08/08/24 0948 INR 1.0 CMP: Recent Labs 08/14/24 0703 08/13/24 1527 GLUC 88 109* NA 134* 136 K 3.9 4.1 CHLOR 103 101 CO2 21* 22 ANION 10 13 BUN 12 17 CREAT 0.67 0.63 ALB -- 3.3* TBILI -- 0.9 ALKPHOS -- 83 AST -- 29 ALT -- 17 TPROT -- 6.8 URINALYSIS:No results for input(s): PH, SPGR, UGLUC, UBILI, UKET, UHB, UPROT, UROBIL, UWBC, SSA in the last 168 hours. Invalid input(s): NITR Cardiac:No results for input(s): CKTEST, CKMB, CKMBP, TROPONIN, BNP in (more content not included)... [facility] 08-13-2024 Note SARS-COV-2 (AGENT OF COVID-19) RNA: Not detected INFLUENZA A RNA: Not detected INFLUENZA B RNA: Not detected RESPIRATORY SYNCYTIAL VIRUS (RSV) RNA: Not detected [facility] Comment on above: Performed By: #### 9 [id number] ####[facility] LABORATORYCLIA [id number] [place] [address] [place] 08-09-2024 History of Presen t illness Narrative FOLLOW UP VISIT - ENDOSCOPY NAME: Savana Kolb [facility] NO.: [id number] DATE OF SERVICE: 08/09/2024 : 1950 REFERRING PHYSICIAN: Shay aCrdoza MD Savana is a patient I am following for rectal bleeding with a complex. The patient is a 74 year old female referred for endoscopy. Savana notes rectal bleeding for 2 days duration following a paracentesis. The patient receives paracentesis regularly had approximately 1 L of fluid withdrawn. The patient then noted bright red blood per rectum following those movements. She denies melena. The patient has been doing well since that time. [facility] 07, 2024. The patient notes reflux symptoms which worsen as her ascites builds and is improved after paracentesis Savana has undergone prior endoscopy. 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 She then underwent an open right hemicolectomy for cecal volvulus on July 14, 2023. Dr. Craft was able to free up the volvulized cecum and resect a few loops of ileum which were felt to be involved in the malignant process. He performed a stapled reanastomosis. Dr. Cote performed tumor debulking and right ureter tumor lysis at the same procedure. Pathology from that procedure returned as: FINAL DIAGNOSIS A. 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 B. 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 C. 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 - Background small bowel with acute serositis, possibly procedure-related. - Appendix with fibrous obliteration. - Thirteen lymph nodes, negative for malignancy (0/13). D. Fascia, anterior abdominal wall, excision: - Fat necrosis with associated dystrophic calcification, negative for malignancy. The patient is being seen by me today at the request of Dr. Cruz for my opinion and advice regarding rectal bleeding and reflux. I performed upper and lower endoscopy on July 31, 2024. The patient was found to have: Upper Endoscopy Impression: - Normal examined jejunum. - Normal examined duodenum. - Gastritis, characterized by erosions and erythema. - Small hiatal hernia. - Moderate reflux esophagitis with no bleeding. Biopsied. Lower Endoscopy Impression: - Patent end-to-side ileo-colonic anastomosis, characterized by healthy appearing mucosa. - The examined portion of the ileum was normal. - The entire examined colon is normal. - Hemorrhoids. - No specimens collected. Pathology demonstrated: FINAL DIAGNOSIS A. Gastric antrum, biopsy: - Oxyntic and antral mucosa with no significant diagnostic alteration. - No morphologic evidence of Helicobacter pylori organisms. B. Distal esophagus, biopsy: - Reactive squamous mucosa with no significant inflammation. - No evidence of eosinophilia. Elect The patient notes no complaints since the procedure. VITALS: There were no vitals taken for this visit. Initially scheduled for an office visit but due to cold weather I contacted her via the phone and she was able to have her questions answered via the phone call. Assessment IMPRESSION: No bleeding-likely hemorrhoidal bleeding, reflux, clinically gastritis and distal esophagitis with a hiatal hernia. PLAN: If the patient notes any problems or changes in bowel function, the patient should contact me immediately. Otherwise I recommend follow up endoscopy as needed. Patient was started on Prilosec and she notes improvement in her reflux symptoms. I discussed with you the findings of your colonoscopy. Since there were no worrisome abnormalities, I recommend you undergo repeat endoscopic screening every 10 years. This is the current recommendation for colon cancer screening. If you note bleeding, change in bowel habits, or other suspicious colon related symptoms before that time, those symptoms should be evaluated as necessary. I did discuss with her was likely some degree of external compression consistent with her pelvic tumors but no signs of tumor invading into the bowel and no signs of bleeding from the anastomosis therefore I felt that most likely her issues are related to hemorrhoidal disease. We discussed maneuvers to avoid constipation. The patient also noted that she is having paracenteses approximately every 2 weeks and most recently she had about 1.2 L removed. I discussed with her that Dr. Cruz is aware of this and we discussed the option or the possibilities of a Pleurx catheter placed in the abdomen but that usually we would not do it till she had large volumes or more frequent paracenteses and I discussed that Dr. Cruz is very aware and knows when to refer patients to me for this procedure. Diagnoses: (K62.5) Rectal bleeding (primary encounter diagnosis) (R13.10) Dysphagia, unspecified type Return to Clinic: The patient is instructed to follow-up with me as needed. Wu Moe MD documented in this encounter [facility] 08-08-2024 Telephone encounter Note Patient notified. Beatrice Chu LPN [facility] 08-08-2024 Miscellaneous Notes Patient notified. Beatrice Chu LPN I agree. Best to get it checked out soon as able. Js Cruz DO Last treatment 08/03/2024. Patient c/o toothache to bottom right side of mouth that began over the weekend. She contacted her dentist and would like to go in today for an appointment and xrays. Beatrice Chu LPN Patient is having a tooth issue and is asking about scheduling dental appointment. She is asking if she is able to due to her chemo. Please advise. Patient would like to make an appointment today if able. documented in this encounter [facility] 08-08-2024 Telephone encounter Note I agree. Best to get it checked out soon as able. Js Cruz DO [facility] 08-08-2024 Telephone encounter Note Last treatment 08/03/2024. Patient c/o toothache to bottom right side of mouth that began over the weekend. She contacted her dentist and would like to go in today for an appointment and xrays. Beatrice Chu LPN [facility] 08-08-2024 Telephone encounter Note Patient is having a tooth issue and is asking about scheduling dental appointment. She is asking if she is able to due to her chemo. Please advise. Patient would like to make an appointment today if able. [facility] Work Phone: 08-04-2024 Telephone encounter Note CYCLE 1/DAY 1 POST TREATMENT CALL Today's date: August 04, 2024 Treatment Regimen: gemzar C1D1 Date: 08/03/24 Called patient to follow-up on symptom management. Spoke with patient SYMPTOM ASSESSMENT Neuro: Headache: took tylenol. Patient was encouraged to take tylenol for headache, call if she has no improvement in symptoms. Dizziness: denies Visual changes: denies CV/Resp: None GI/: Appetite: no changes in appetite, appetite fair Denies N/V/D Integument: None Activity: Patient reported no changes in energy level, energy level fair Pain: No=0 (pain 0 on a scale of 0-10). Fever: Yes 99.5 F 6:45 am. 98 F 7:00 am Chills: Yes chilling yesterday. Improved today. Any new referrals needed? No Reinforced CURRENT treatment education based on current and anticipated symptoms. Discussed port/line care and patient verbalizes understanding: Yes Patient instructed to contact office or after hours Hematology/Oncology fellow for: temperature >= 100.4; questions or concerns. Patient verbalized understanding of when to seek medical attention and after hours number protocol. Doreen Jerome RN [facility] 08-04-2024 Miscellaneous Notes CYCLE 1/DAY 1 POST TREATMENT CALL Today's date: August 04, 2024 Treatment Regimen: gemzar C1D1 Date: 08/03/24 Called patient to follow-up on symptom management. Spoke with patient SYMPTOM ASSESSMENT Neuro: Headache: took tylenol. Patient was encouraged to take tylenol for headache, call if she has no improvement in symptoms. Dizziness: denies Visual changes: denies CV/Resp: None GI/: Appetite: no changes in appetite, appetite fair Denies N/V/D Integument: None Activity: Patient reported no changes in energy level, energy level fair Pain: No=0 (pain 0 on a scale of 0-10). Fever: Yes 99.5 F 6:45 am. 98 F 7:00 am Chills: Yes chilling yesterday. Improved today. Any new referrals needed? No Reinforced CURRENT treatment education based on current and anticipated symptoms. Discussed port/line care and patient verbalizes understanding: Yes Patient instructed to contact office or after hours Hematology/Oncology fellow for: temperature >= 100.4; questions or concerns. Patient verbalized understanding of when to seek medical attention and after hours number protocol. Doreen Jerome RN documented in this encounter [facility] 08-03-2024 History of Presen t illness Narrative Assessment unchanged from 08/01/[address] Cruz documented in this encounter [facility] 08-02-2024 History of Presen t illness Narrative [facility] received prescription(s) for Lynparza from Dr. Cruz's office. Benefits investigation was conducted, indicating that a prior authorization is required by patient's insurance plan with [facility]. Encounter will be updated once prior authorization has been submitted by [facility]. Godwin Mcnamara CPhT [facility], Oncology P: / F: documented in this encounter 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 Anticipated/Scheduled start date: 08/03/24 READINESS TO LEARN: COGNITIVE ABILITY: Alert and oriented MOTIVATION TO LEARN: Interested FAMILY SUPPORT: High - Very involved in pt care INSTRUCTION PROVIDED TO: Patient and Spouse INSTRUCTION PROVIDED BY: Nurse Coordinator PATIENT LEARNS BEST BY: Multiple Methods FACTORS AFFECTING LEARNING: None PHYSICAL LIMITATIONS AFFECTING LEARNING: None LEARNING RESPONSE METHOD OF INSTRUCTION: Individual instruction Written instruction/Handouts Verbal instruction PATIENT/FAMILY RESPONSE: Verbalizes understanding of: CHEMOTHERAPY-Regimen, toxicity and side effects FOLLOW UP PLAN: Patient instructed to call with any further issues Recommend - Recommend continued instruction and follow up as directed Follow up phone call. Contact information given. SUPPLEMENTAL MATERIAL: Written material was provided at this visit with the following information: - Chemotherapy education was provided by a pharmacist NO - Side effect management information was provided/discussed including but not limited to: arthralgia, bowel habit changes, fatigue, hair loss, nausea/vomitting, rash YES - Provided important phone numbers and contacts during and after hours. YES - Provided information on symptoms that require immediate assistance. YES - Provided Chemotherapy when to call handouts YES - Preventing infection. YES - Treatment schedule and confirmation of appointment times. YES - Available support groups. YES - The importance of contraception during the course of chemotherapy YES - Neutropenic fever protocol discussed with patient, which included the importance of reporting any fever of 100.4F (38.0C) or greater to the healthcare team as noted on the provided wallet card and/or magnet. YES Time Spent: 30 minutes REFERRAL (RECOMMENDATION): N/A Doreen Jerome RN 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 Anticipated/Scheduled start date: 08/03/24 READINESS TO LEARN: COGNITIVE ABILITY: Alert and oriented MOTIVATION TO LEARN: Interested FAMILY SUPPORT: High - Very involved in pt care INSTRUCTION PROVIDED TO: Patient and Spouse INSTRUCTION PROVIDED BY: Nurse Coordinator PATIENT LEARNS BEST BY: Multiple Methods FACTORS AFFECTING LEARNING: None PHYSICAL LIMITATIONS AFFECTING LEARNING: None LEARNING RESPONSE METHOD OF INSTRUCTION: Individual instruction Written instruction/Handouts Verbal instruction PATIENT/FAMILY RESPONSE: Verbalizes understanding of: CHEMOTHERAPY-Regimen, toxicity and side effects FOLLOW UP PLAN: Patient instructed to call with any further issues Recommend - Recommend continued instruction and follow up as directed Follow up phone call. Contact information given. SUPPLEMENTAL MATERIAL: Written material was provided at this visit with the following information: - Chemotherapy education was provided by a pharmacist NO - Side effect management information was provided/discussed including but not limited to: arthralgia, bowel habit changes, fatigue, hair loss, nausea/vomitting, rash YES - Provided important phone numbers and contacts during and after hours. YES - Provided information on symptoms that require immediate assistance. YES - Provided Chemotherapy when to call handouts YES - Preventing infection. YES - Treatment schedule and confirmation of appointment times. YES - Available support groups. YES - The importance of contraception during the course of chemotherapy YES - Neutropenic fever protocol discussed with patient, which included the importance of reporting any fever of 100.4F (38.0C) or greater to the healthcare team as noted on the provided wallet card and/or magnet. YES Time Spent: 30 minutes REFERRAL (RECOMMENDATION): N/A Doreen Jerome RN documented in this encounter [facility] 08-01-2024 Telephone encounter Note Scheduled chemo treatments Rupal Marshall [facility] 08-01-2024 Miscellaneous Notes Scheduled chemo treatments Rupal Marshall Cancel current tx, of Topotecan Start Gemcitabine YOUSUF day 1,8,15 every 28 days D1 CBC/CMP/CA-125 straightback D8,D15 CBC only Cycle 2 OV with COMPENSATION EXPERT D1 CBC/CMP/CA-125 D8,D15 CBC only documented in this encounter [facility] 08-01-2024 Telephone encounter Note Cancel current tx, of Topotecan Start Gemcitabine YOUSUF day 1,8,15 every 28 days D1 CBC/CMP/CA-125 straightback D8,D15 CBC only Cycle 2 OV with COMPENSATION EXPERT D1 CBC/CMP/CA-125 D8,D[address] 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 Initially underwent pelvic ultrasound on 09/01/2018. Uterus appeared normal. The endometrial stripe was 2.3 mm. Right and left ovaries appeared normal. However there was a large amount of free fluid in the pelvic cul-de-sac. CT A/P 09/08/2018: Liver: No mass. Homogeneous texture. Biliary: No ductal dilatation is seen. Gallbladder is unremarkable. Spleen: Spleen is unremarkable. Pancreas: No mass or duct dilation. Adrenals: Adrenal glands are unremarkable. Kidneys: No mass, calculus or hydronephrosis is seen. GI tract: No bowel dilatation is seen. No evidence of obstruction. Lymph nodes: No evidence of adenopathy. Mesentery/Peritoneum: There is increased soft tissue density best seen in the coronal views extending from the lower abdomen into the pelvic area. This could represent peritoneal involvement with tumor. This is seen on coronal image 37 and axial images 99 through 122. It extends across the anterior aspect of the pelvic area seen on axial image 124. Vasculature: No evidence of dilatation of the abdominal aorta. CT PELVIS: Pelvis: There is a large amount of free fluid or loculated fluid in the pelvis suggesting that there could be an enhancing rim surrounding this fluid is seen on image 127 and measures 10.6 x 6.1 cm. Bones/Soft Tissues: No significant findings identified. Lower thorax: Unremarkable. CA125 was 1153 U/mL. Had employee relations consultant onc evaluation and CT chest unremarkable. Underwent exploratory laparotomy, optimal tumor bulking, total abdominal hysterectomy, bilateral salpingo-oophorectomy, resection of bladder cul-de-sac and pelvic peritoneal disease along with resection of omental caking with super colic omentectomy on 10/06/2018. Pathology: FINAL DIAGNOSIS 1. 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 2. 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 3. Uterus, cervix, bilateral ovaries and fallopian tubes, and bladder/pelvic peritoneum, hysterectomy and excision (C) Left fallopian tube - High grade serous carcinoma (see comment and synoptic report). Right fallopian tube - Positive for involvement by high grade serous carcinoma. Bilateral ovaries - Positive for involvement by high grade serous carcinoma. Uterine serosa - Positive for involvement by high grade serous carcinoma. Bladder/pelvic peritoneum - Positive for involvement by high grade serous carcinoma. Endometrium - Inactive endometrium. Myometrium - Negative for malignancy. Cervix - Negative for malignancy. SYNOPTIC REPORT OF BRAUN PATHOLOGIC FINDINGS UTERUS, CERVIX, BILATERAL TUBES AND OVARIES, BLADDER, AND PELVIC PERITONEUM: Procedure: Total hysterectomy and bilateral salpingo-oophorectomy Omentectomy Peritoneal biopsies Specimen Integrity: Left fallopian tube serosa intact Primary Tumor Site: Left fallopian tube Ovarian Surface Involvement: Present Specify laterality (if applicable): Bilateral Fallopian Tube Surface Involvement: Present Specify laterality (if applicable): Bilateral Tumor Size: Greatest dimension: 1.6 cm Histologic Type: Serous carcinoma Histologic Grade: Not applicable Two-tier grading System: High grade Implants: Not applicable/not sampled Involvement of other tissues/organs: Right ovary Left ovary Right fallopian tube Pelvic peritoneum Omentum Other organs/tissues (specify): Uterine serosa Largest extrapelvic peritoneal focus, macroscopic (greater than 2 cm) Peritoneal Ascitic Fluid, Not submitted/unknown Treatment Effect: No known presurgical therapy Regional Lymph Nodes: No nodes submitted or found Pathologic Stage Classification (pTNM, AJCC 8th ed) TNM Descriptors: Not applicable Primary Tumor (pT): pT3c: Macroscopic peritoneal metastasis beyond pelvis more than 2 cm in greatest dimension with or without metastasis to the retroperitoneal lymph nodes (includes extension to capsule of liver and spleen without parenchymal involvement of either organ) Regional Lymph Nodes (pN): pNX: Cannot be assessed Distant Metastasis (pM): Not applicable/Not confirmed pathologically in this case Previous therapy: 1) 11/11/2018 - 02/03/2019: PACLITAXEL 80 D1,8,15 CARBOPLATIN 6 D1 - Q21D s/p 4 cycles. *neutropenia/thrombocytopenia causing treatment delay. Neulasta OnPro added; switch to Q21D dosing of Taxol with cycles 5 & 6 02/23/2019 - 03/17/2019: PACLITAXEL 135 D1 CARBOPLATIN 6 D1 - Q21D s/p 2 cycles. 2) 06/30/2019 - 06/20/2021: olaparib (LYNPARZA) 150 mg tablet; 300 mg BID. CTs 06/29/2022: Mesentery/Peritoneum: * New 0.4 cm anterior mesenteric fat nodule (8:57) * Confluent infiltrative soft tissue in RIGHT false pelvis surrounding the terminal ileum and ascending colon (cecum deep in pelvis) and probably affecting the sigmoid colon; difficult to precisely measure as it envelops bowel but including bowel measures approximately 4.5 x 2.9 cm (8:101); process extends to the RIGHT psoas muscle * Several small subtle anterior mesenteric fat nodules * No free abdominal fluid MRI pelvis 07/02/2022: Similar imaging findings since CT 06/29/2022, redemonstrating pelvic peritoneal/serosal carcinomatosis involving segments of bowel predominantly in the right anterior pelvis, with confluent soft tissue encasing the proximal ascending colon and causing relative upstream dilation of the low-lying cecum suggesting developing colonic obstruction. No small bowel dilation. No pelvic lymphadenopathy. 3) Carboplatin/paclitaxel x6 cycles. Completed 11/02/2022. Stable disease. 4) Doxil tolerated very well. PD 05/27/2023. 5) Elahere. PD. CTs 05/27/2023 demonstrated progression of disease with an increase in size of irregular soft tissue density in the right pelvis as well as increasing thickening of the wall of the cecum. Presented to the ED at [facility] about a week later. CT scan demonstrated possible cecal volvulus. She was transferred to [facility]. Managed nonsurgically with NG decompression. NG was removed on her second hospital day and her diet was advanced to clear liquids and then the following day advance to full liquids then to gastrointestinal soft diet on day 3. She was discharged home with plans for outpatient follow-up and colectomy with possible cytoreduction. Underwent open right hemicolectomy on 07/14/2023. Initially Dr. Dawson performed laparotomy and excised several lower pelvic lesions. Dr. Summa via performed the right hemicolectomy. He observed kinking of the cecum, proximal ascending colon and some of the distal ileum coming together causing narrowing of the pedicle around which the colon was volvulized. Pathology: FINAL DIAGNOSIS A. 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 B. 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 C. 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 - Background small bowel with acute serositis, possibly procedure-related. - Appendix with fibrous obliteration. - Thirteen lymph nodes, negative for malignancy (0/13). D. Fascia, anterior abdominal wall, excision: - Fat necrosis with associated dystrophic calcification, negative for malignancy. Current therapy: 1) Topotecan with bevacizumab. Presents for ongoing oncologic management. Interim history: Tolerating topotecan and bevacizumab very well overall. Underwent a 1.6 L paracentesis yesterday. [place] much better afterwards. Less early satiety. No nausea. Bowels moving regularly. No abdominal pain per se. Mild progression of fingertip neuropathy. PMH, medications and allergies personally reviewed by me today. Any changes documented in appropriate section. ROS: Constitutional: Denies episodes of fever and night sweats. Neuro: Denies MACHADO, vertigo, dizziness and imbalance. HEENT: No recent change in voice, vision or hearing. Resp: No cough, wheeze or hemoptysis. CVS: Denies exertional chest pain, PND, orthopnea and LE edema. GI: See above. : Denies dysuria or gross hematuria. Endo: Denies hot flashes. Denies polyuria and polydipsia. Denies heat and cold intolerance. Musculoskeletal: Denies bone, back, joint and muscular pain. Derm: Denies rash. Denies jaundice and diffuse pruritis. Heme: Denies unusual bleeding and unexplained bruising. Psych: Normal mood. PHYSICAL EXAM: Vitals: Blood pressure 123/72, pulse 67, temperature 36.4 C (97.5 F), temperature source Temporal, weight 52.4 kg (115 lb 8 oz), SpO2 99%. Well-appearing and in no acute distress. EYES: Sclerae are anicteric bilaterally. No conjunctival injection. LYMPHATIC: No palpable cervical or supraclavicular adenopathy. RESPIRATORY: Inspiratory breath sounds are of normal intensity in all bernabe. There are no crackles, wheezes or rales. CARDIOVASCULAR: Rhythm is regular. ABDOMEN: The abdomen is slightly distended. Paracentesis site right abdomen no bleeding or bruising. No appreciable fluid wave. Extremities: No swelling of the LEs. SKIN: No jaundice or rash. 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 -BRCA2 mutation (tested 04/2019). -Baseline CA125 1153 U/mL. -s/p right hemicolectomy with some tumor sampling/debulking. -FOLR1 IHC results--100% of cells stained +2-3+4 -Blood pressure under good control. -Tolerating topotecan with bevacizumab very well. -She developed worsening ascites that was symptomatic. Now status post paracentesis. -Reviewed CT scans and images with her and her . Progressive disease. -I recommended gemcitabine for the time being but she previously sleeved Lynparza as maintenance for 2 years after stopping that, it was a year until she had recurrence/progression of disease. Therefore disease may still be responsive to PARP inhibitor. Discussed this plan. Will send Rx for Lynparza but in the meantime start gemcitabine as she requires ongoing therapy and it may take several weeks at a minimum to receive Lynparza. -I discussed the rationale, logistics, potential risks (including but not limited to fatigue, cytopenias, nausea vomiting, diarrhea, HUS, pneumonitis, rash, infections and the small potential for as a consequence of severe toxicity/complications of therapy), benefits and alternatives, as well as the personnel involved in the administration of gemcitabine. I answered her questions in detail and she verbalized understanding and agreed with the recommended therapy. Please see the electronic consent document for details of doses and schedule. Plan: -Begin gemcitabine this week. -CBC/CMP/CA125/straight-backed for cycle 1. -CBC days 8 and 15. -Monitor CA125 each cycle. -CTs following 2 cycles. -Scheduled for routine ultrasound and paracentesis if needed. -Rx for Lynparza. Portions of this documentation were copied and pasted from my previous office visit note dated 07/04/2024 in order to provide a cohesive continuity of the history. The note has been reviewed and edited and updated as necessary. Js Cruz DO documented in this encounter [facility] 07-31-2024 Attending History and physical note UPDATED PROCEDURAL SEDATION HISTORY AND PHYSICAL EXAMINATION SERVICE DATE: 07/31/2024 SERVICE TIME: 2:07 PM PHYSICAL EXAM MUST BE COMPLETED ON ADMISSION PROCEDURE: Procedure Indications: The History and Physical (completed in the past 30 days) has been reviewed and the patient has been examined. The contents accurately reflect the patient's condition with the following additions or revisions since the H&P was completed. ASA Class: ASA Class: Patient with severe systemic disease Examination indicates no changes. AIRWAY: Airway Visualization of Uvula: Yes Mouth opening greater than 2 fingerbreadths: Yes Neck Full Range of Motion: Yes LUNGS: Lungs clear to auscultation CARDIAC: Regular rhythm,Regular rate Provisional Diagnosis/Treatment Plan: GI bleeding, reflux - EGD and Colonoscopy Sedation Goal: Moderate This H&P can be found in the attached. SIGNATURE: Wu Moe MD PATIENT NAME: Savana Patel DATE: July 31, 2024 TIME: 2:07 PM Source Note - Wu Moe MD - 07/31/2024 2:00 PM EST HISTORY AND PHYSICAL Savana Patel 1950 REFERRING PHYSICIAN: Js Cruz DO CHIEF COMPLAINT: Consult HPI: The patient is a 74 year old female referred for endoscopy. Savana notes rectal bleeding for 2 days duration following a paracentesis. The patient receives paracentesis regularly had approximately 1 L of fluid withdrawn. The patient then noted bright red blood per rectum following those movements. She denies melena. The patient has been doing well since that time. [facility] on July 07, 2024. The patient notes reflux symptoms which worsen as her ascites builds and is improved after paracentesis Savana has undergone prior endoscopy. 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 She then underwent an open right hemicolectomy for cecal volvulus on July 14, 2023. Dr. Craft was able to free up the volvulized cecum and resect a few loops of ileum which were felt to be involved in the malignant process. He performed a stapled reanastomosis. Dr. Cote performed tumor debulking and right ureter tumor lysis at the same procedure. Pathology from that procedure returned as: FINAL DIAGNOSIS A. 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 B. 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 C. 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 - Background small bowel with acute serositis, possibly procedure-related. - Appendix with fibrous obliteration. - Thirteen lymph nodes, negative for malignancy (0/13). D. Fascia, anterior abdominal wall, excision: - Fat necrosis with associated dystrophic calcification, negative for malignancy. The patient is being seen by me today at the request of Dr. Cruz for my opinion and advice regarding rectal bleeding and reflux. PAST MEDICAL HISTORY PAST MEDICAL HISTORY Diagnosis Date Actinic keratosis 04/12/2007 Advance directive discussed with patient 08/24/2022 Discussed 08/2022: Up to date DEANDRE positive 07/25/2016 Rheum felt just Arthritis. 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) 07/13/2019 B[place] ANGIOMA///NEVUS, NON-NEOPLASTIC 02/18/2007 Constipation 04/04/2015 Dysmetabolic syndrome X 12/28/2007 Essential hypertension 04/04/2015 GERD without esophagitis 07/24/2020 Hemorrhage of gastrointestinal tract, unspecified History of left mastectomy 05/05/2018 Impaired fasting glucose 11/21/2007 Internal hemorrhoids without mention of complication Iron deficiency anemia due to chronic blood loss 09/02/2023 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 Leg cramps 01/08/2020 Living will on file 07/31/2021 DPA: Javier ( ) Malignant neoplasm of both ovaries (HCC) 10/26/2018 Mixed hyperlipidemia 04/04/2015 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 multiple joints 07/27/2016 Osteopenia 12/28/2012 Other acne 05/29/2008 Other seborrheic keratosis 02/18/2007 Panic attacks 07/18/2012 Primary insomnia 01/29/2022 S/P colectomy 08/06/2023 SOLAR LENGINES///DYSCHROMIA OTHER 02/18/2007 Thrombocytopenia (HCC) 01/29/2022 chronic Trigger ring finger of left hand 07/24/2020 Trigger ring finger of right hand 07/24/2020 PAST SURGICAL HISTORY PAST SURGICAL HISTORY Procedure Laterality Date BX BREAST PERC VACUUM/ROTN 10/26/2007 LEFT COLONOSCOPY FLX DX W/COLLJ SPEC WHEN PFRMD 07/20/2005 COLONOSCOPY FLX DX W/COLLJ SPEC WHEN PFRMD 05/01/2016 normal - 10 year follow up LAPAROSCOPIC HEMICOLECTOMY Right 06/2023 LIG/TRNSXJ FLP TUBE ABDL/VAG APPR UNI/BI Tubal ligation MAST RAD W/PECTORAL MUSCLES AXILLARY LYMPH NODES 11/2007 Left PAST SURGICAL HISTORY OF BACK SURGERY PAST SURGICAL HISTORY OF 10/06/2018 Exploratory laparotomy, total abdominal hysterectomy, bilateral salpingooophorectomy, and bladder and posterior culdesac peritoneum resected en bloc, omentectomy PLCMT LOCALZTN CLIP,PERC,DURING BREAST BX 10/26/2007 LEFT S PORT-A-CATH [id number] 11/09/2018 TONSILLECTOMY PRIMARY/SECONDARY Tonsillectomy CURRENT MEDICATIONS Current Outpatient Medications Medication Sig ondansetron (ZOFRAN) 8 mg tablet Take 1 tablet by mouth every 8 hours as needed for nausea/vomiting. acetaminophen (TYLENOL) 500 mg tablet Take 2 tablets by mouth every 8 hours. docusate sodium (COLACE ORAL) Take 1 tablet by mouth once daily as needed. senna-docusate (SENNA-S) 8.6-50 mg per tablet Take 1 tablet by mouth once daily as needed for constipation. omeprazole (PRILOSEC) 40 mg capsule Take 1 capsule by mouth once daily. No current facility-administered medications for this visit. ALLERGIES: Penicillins and Sulfa (Sulfonamide Antibiotics) PERSONAL HISTORY: SOCIAL HISTORY Social History Tobacco Use Smoking status: Never Passive exposure: Never Smokeless tobacco: Never Vaping Use Vaping status: Never Used Substance Use Topics Alcohol use: Never Drug use: Never FAMILY HISTORY: FAMILY HISTORY FAMILY HISTORY Problem Relation Age of Onset Ovarian cancer Mother dx 50s Arthritis Father No Known Problems Maternal Grandmother No Known Problems Maternal Grandfather No Known Problems Paternal Grandmother No Known Problems Paternal Grandfather Cancer Maternal Aunt 7 aunts with breast or ovarian cancer. details unknown REVIEW OF SYMPTOMS: The review of systems data was entered by the nurse and reviewed by me There are no exam notes on file for this visit. PHYSICAL EXAMINATION: General: The patient is 74 year old female, well nourished, well hydrated in no acute distress. The patient is oriented to time, place, and person. VITALS: Blood pressure 126/84, pulse 72, resp. rate 14, height 162.6 cm (5' 4), weight 54.9 kg (121 lb), SpO2 100%. Body mass index is 20.77 kg/m . HEENT: Normal cephalic, ataumatic, pupils are equally round, sclera are anicteric, mucous membranes are moist, oropharynx is clear. Neck has no masses, asymmetry or lymphadenopathy. Thyroid is unremarkable. Respiratory: Clear to auscultation and percussion. Normal respiratory excursion and pattern. Cardiac: Examination is regular rate and rhythm. Abdominal exam: Soft, nontender, with no palpable masses. No hepatosplenomegaly. No palpable hernias. Rectal exam: exam deferred Extremities: no clubbing, cyanosis or edema. No adenopathy. Other: LABORATORY VALUES: As Noted RADIOLOGIC STUDIES: As Noted Assessment IMPRESSION: Rectal bleeding, reflux PLAN: I plan to perform upper and lower endoscopy. We discussed the risks and benefits of the planned endoscopy. I have informed the patient that complications can occur including failure to complete the endoscopy and perforation. The patient had the opportunity to ask questions concerning the planned endoscopy. My staff has also explained the procedure to the patient in understandable terms and has given the patient printed material concerning the procedure. The patient freely consents to surgery. I plan to use golytely bowel preparation for endoscopy. The patient does not have to drink the complete jug if she is turning clear I plan for monitored anesthetic care. Diagnoses: (K62.5) Rectal bleeding (primary encounter diagnosis) (K64.9) Hemorrhoids, unspecified hemorrhoid type (R13.10) Dysphagia, unspecified type My findings have been communicated to Dr. Cruz via shared medical record. This note will be forwarded to Dr. Shay Cardoza MD. Return to Clinic: The patient is instructed to follow-up with me after the testing has been completed. Wu Moe MD [facility] 07-31-2024 History and physical note HISTORY AND PHYSICAL Savana Patel 1950 REFERRING PHYSICIAN: Js Cruz DO CHIEF COMPLAINT: Consult HPI: The patient is a 74 year old female referred for endoscopy. Savana notes rectal bleeding for 2 days duration following a paracentesis. The patient receives paracentesis regularly had approximately 1 L of fluid withdrawn. The patient then noted bright red blood per rectum following those movements. She denies melena. The patient has been doing well since that time. She presented [facility] department on July 07, 2024. The patient notes reflux symptoms which worsen as her ascites builds and is improved after paracentesis Savana has undergone prior endoscopy. 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 She then underwent an open right hemicolectomy for cecal volvulus on July 14, 2023. Dr. Craft was able to free up the volvulized cecum and resect a few loops of ileum which were felt to be involved in the malignant process. He performed a stapled reanastomosis. Dr. Cote performed tumor debulking and right ureter tumor lysis at the same procedure. Pathology from that procedure returned as: FINAL DIAGNOSIS A. 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 B. 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 C. 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 - Background small bowel with acute serositis, possibly procedure-related. - Appendix with fibrous obliteration. - Thirteen lymph nodes, negative for malignancy (0/13). D. Fascia, anterior abdominal wall, excision: - Fat necrosis with associated dystrophic calcification, negative for malignancy. The patient is being seen by me today at the request of Dr. Cruz for my opinion and advice regarding rectal bleeding and reflux. PAST MEDICAL HISTORY PAST MEDICAL HISTORY Diagnosis Date Actinic keratosis 04/12/2007 Advance directive discussed with patient 08/24/2022 Discussed 08/2022: Up to date DEANDRE positive 07/25/2016 Rheum felt just Arthritis. 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 [place] ANGIOMA///NEVUS, NON-NEOPLASTIC 02/18/2007 Constipation 04/04/2015 Dysmetabolic syndrome X 12/28/2007 Essential hypertension 04/04/2015 GERD without esophagitis 07/24/2020 Hemorrhage of gastrointestinal tract, unspecified History of left mastectomy 05/05/2018 Impaired fasting glucose 11/21/2007 Internal hemorrhoids without mention of complication Iron deficiency anemia due to chronic blood loss 09/02/2023 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 Leg cramps 01/08/2020 Living will on file 07/31/2021 DPA: Javier ( ) Malignant neoplasm of both ovaries (HCC) 10/26/2018 Mixed hyperlipidemia 04/04/2015 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 multiple joints 07/27/2016 Osteopenia 12/28/2012 Other acne 05/29/2008 Other seborrheic keratosis 02/18/2007 Panic attacks 07/18/2012 Primary insomnia 01/29/2022 S/P colectomy 08/06/2023 SOLAR LENGINES///DYSCHROMIA OTHER 02/18/2007 Thrombocytopenia (HCC) 01/29/2022 chronic Trigger ring finger of left hand 07/24/2020 Trigger ring finger of right hand 07/24/2020 PAST SURGICAL HISTORY PAST SURGICAL HISTORY Procedure Laterality Date BX BREAST PERC VACUUM/ROTN 10/26/2007 LEFT COLONOSCOPY FLX DX W/COLLJ SPEC WHEN PFRMD 07/20/2005 COLONOSCOPY FLX DX W/COLLJ SPEC WHEN PFRMD 05/01/2016 normal - 10 year follow up LAPAROSCOPIC HEMICOLECTOMY Right 06/2023 LIG/TRNSXJ FLP TUBE ABDL/VAG APPR UNI/BI Tubal ligation MAST RAD W/PECTORAL MUSCLES AXILLARY LYMPH NODES 11/2007 Left PAST SURGICAL HISTORY OF BACK SURGERY PAST SURGICAL HISTORY OF 10/06/2018 Exploratory laparotomy, total abdominal hysterectomy, bilateral salpingooophorectomy, and bladder and posterior culdesac peritoneum resected en bloc, omentectomy PLCMT LOCALZTN CLIP,PERC,DURING BREAST BX 10/26/2007 LEFT S PORT-A-CATH [id number] 11/09/2018 TONSILLECTOMY PRIMARY/SECONDARY Tonsillectomy CURRENT MEDICATIONS Current Outpatient Medications Medication Sig ondansetron (ZOFRAN) 8 mg tablet Take 1 tablet by mouth every 8 hours as needed for nausea/vomiting. acetaminophen (TYLENOL) 500 mg tablet Take 2 tablets by mouth every 8 hours. docusate sodium (COLACE ORAL) Take 1 tablet by mouth once daily as needed. senna-docusate (SENNA-S) 8.6-50 mg per tablet Take 1 tablet by mouth once daily as needed for constipation. omeprazole (PRILOSEC) 40 mg capsule Take 1 capsule by mouth once daily. No current facility-administered medications for this visit. ALLERGIES: Penicillins and Sulfa (Sulfonamide Antibiotics) PERSONAL HISTORY: SOCIAL HISTORY Social History Tobacco Use Smoking status: Never Passive exposure: Never Smokeless tobacco: Never Vaping Use Vaping status: Never Used Substance Use Topics Alcohol use: Never Drug use: Never FAMILY HISTORY: FAMILY HISTORY FAMILY HISTORY Problem Relation Age of Onset Ovarian cancer Mother dx 50s Arthritis Father No Known Problems Maternal Grandmother No Known Problems Maternal Grandfather No Known Problems Paternal Grandmother No Known Problems Paternal Grandfather Cancer Maternal Aunt 7 aunts with breast or ovarian cancer. details unknown REVIEW OF SYMPTOMS: The review of systems data was entered by the nurse and reviewed by me There are no exam notes on file for this visit. PHYSICAL EXAMINATION: General: The patient is 74 year old female, well nourished, well hydrated in no acute distress. The patient is oriented to time, place, and person. VITALS: Blood pressure 126/84, pulse 72, resp. rate 14, height 162.6 cm (5' 4), weight 54.9 kg (121 lb), SpO2 100%. Body mass index is 20.77 kg/m . HEENT: Normal cephalic, ataumatic, pupils are equally round, sclera are anicteric, mucous membranes are moist, oropharynx is clear. Neck has no masses, asymmetry or lymphadenopathy. Thyroid is unremarkable. Respiratory: Clear to auscultation and percussion. Normal respiratory excursion and pattern. Cardiac: Examination is regular rate and rhythm. Abdominal exam: Soft, nontender, with no palpable masses. No hepatosplenomegaly. No palpable hernias. Rectal exam: exam deferred Extremities: no clubbing, cyanosis or edema. No adenopathy. Other: LABORATORY VALUES: As Noted RADIOLOGIC STUDIES: As Noted Assessment IMPRESSION: Rectal bleeding, reflux PLAN: I plan to perform upper and lower endoscopy. We discussed the risks and benefits of the planned endoscopy. I have informed the patient that complications can occur including failure to complete the endoscopy and perforation. The patient had the opportunity to ask questions concerning the planned endoscopy. My staff has also explained the procedure to the patient in understandable terms and has given the patient printed material concerning the procedure. The patient freely consents to surgery. I plan to use golytely bowel preparation for endoscopy. The patient does not have to drink the complete jug if she is turning clear I plan for monitored anesthetic care. Diagnoses: (K62.5) Rectal bleeding (primary encounter diagnosis) (K64.9) Hemorrhoids, unspecified hemorrhoid type (R13.10) Dysphagia, unspecified type My findings have been communicated to Dr. Cruz via shared medical record. This note will be forwarded to Dr. Shay Cardoza MD. Return to Clinic: The patient is instructed to follow-up with me after the testing has been completed. Wu Moe MD [facility] 07-31-2024 History and physical note UPDATED PROCEDURAL SEDATION HISTORY AND PHYSICAL EXAMINATION SERVICE DATE: 07/31/2024 SERVICE TIME: 2:07 PM PHYSICAL EXAM MUST BE COMPLETED ON ADMISSION PROCEDURE: Procedure Indications: The History and Physical (completed in the past 30 days) has been reviewed and the patient has been examined. The contents accurately reflect the patient's condition with the following additions or revisions since the H&P was completed. ASA Class: ASA Class: Patient with severe systemic disease Examination indicates no changes. AIRWAY: Airway Visualization of Uvula: Yes Mouth opening greater than 2 fingerbreadths: Yes Neck Full Range of Motion: Yes LUNGS: Lungs clear to auscultation CARDIAC: Regular rhythm,Regular rate Provisional Diagnosis/Treatment Plan: GI bleeding, reflux - EGD and Colonoscopy Sedation Goal: Moderate This H&P can be found in the attached. SIGNATURE: Wu Moe MD PATIENT NAME: Savana Patel DATE: July 31, 2024 TIME: 2:07 PM Source Note - Wu Moe MD - 07/31/2024 2:00 PM EST HISTORY AND PHYSICAL Savana Patel 1950 REFERRING PHYSICIAN: Js Cruz DO CHIEF COMPLAINT: Consult HPI: The patient is a 74 year old female referred for endoscopy. Savana notes rectal bleeding for 2 days duration following a paracentesis. The patient receives paracentesis regularly had approximately 1 L of fluid withdrawn. The patient then noted bright red blood per rectum following those movements. She denies melena. The patient has been doing well since that time. She presented to the [facility] emergency department on July 07, 2024. The patient notes reflux symptoms which worsen as her ascites builds and is improved after paracentesis Savana has undergone prior endoscopy. 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 She then underwent an open right hemicolectomy for cecal volvulus on July 14, 2023. Dr. Craft was able to free up the volvulized cecum and resect a few loops of ileum which were felt to be involved in the malignant process. He performed a stapled reanastomosis. Dr. Cote performed tumor debulking and right ureter tumor lysis at the same procedure. Pathology from that procedure returned as: FINAL DIAGNOSIS A. 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 B. 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 C. 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 - Background small bowel with acute serositis, possibly procedure-related. - Appendix with fibrous obliteration. - Thirteen lymph nodes, negative for malignancy (0/13). D. Fascia, anterior abdominal wall, excision: - Fat necrosis with associated dystrophic calcification, negative for malignancy. The patient is being seen by me today at the request of Dr. Cruz for my opinion and advice regarding rectal bleeding and reflux. PAST MEDICAL HISTORY PAST MEDICAL HISTORY Diagnosis Date Actinic keratosis 04/12/2007 Advance directive discussed with patient 08/24/2022 Discussed 08/2022: Up to date DEANDRE positive 07/25/2016 Rheum felt just Arthritis. 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 [place] ANGIOMA///NEVUS, NON-NEOPLASTIC 02/18/2007 Constipation 04/04/2015 Dysmetabolic syndrome X 12/28/2007 Essential hypertension 04/04/2015 GERD without esophagitis 07/24/2020 Hemorrhage of gastrointestinal tract, unspecified History of left mastectomy 05/05/2018 Impaired fasting glucose 11/21/2007 Internal hemorrhoids without mention of complication Iron deficiency anemia due to chronic blood loss 09/02/2023 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 Leg cramps 01/08/2020 Living will on file 07/31/2021 DPA: Javier ( ) Malignant neoplasm of both ovaries (HCC) 10/26/2018 Mixed hyperlipidemia 04/04/2015 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 multiple joints 07/27/2016 Osteopenia 12/28/2012 Other acne 05/29/2008 Other seborrheic keratosis 02/18/2007 Panic attacks 07/18/2012 Primary insomnia 01/29/2022 S/P colectomy 08/06/2023 SOLAR LENGINES///DYSCHROMIA OTHER 02/18/2007 Thrombocytopenia (HCC) 01/29/2022 chronic Trigger ring finger of left hand 07/24/2020 Trigger ring finger of right hand 07/24/2020 PAST SURGICAL HISTORY PAST SURGICAL HISTORY Procedure Laterality Date BX BREAST PERC VACUUM/ROTN 10/26/2007 LEFT COLONOSCOPY FLX DX W/COLLJ SPEC WHEN PFRMD 07/20/2005 COLONOSCOPY FLX DX W/COLLJ SPEC WHEN PFRMD 05/01/2016 normal - 10 year follow up LAPAROSCOPIC HEMICOLECTOMY Right 06/2023 LIG/TRNSXJ FLP TUBE ABDL/VAG APPR UNI/BI Tubal ligation MAST RAD W/PECTORAL MUSCLES AXILLARY LYMPH NODES 11/2007 Left PAST SURGICAL HISTORY OF BACK SURGERY PAST SURGICAL HISTORY OF 10/06/2018 Exploratory laparotomy, total abdominal hysterectomy, bilateral salpingooophorectomy, and bladder and posterior culdesac peritoneum resected en bloc, omentectomy PLCMT LOCALZTN CLIP,PERC,DURING BREAST BX 10/26/2007 LEFT S PORT-A-CATH [id number] 11/09/2018 TONSILLECTOMY PRIMARY/SECONDARY <AGE 12 Tonsillectomy CURRENT MEDICATIONS Current Outpatient Medications Medication Sig ondansetron (ZOFRAN) 8 mg tablet Take 1 tablet by mouth every 8 hours as needed for nausea/vomiting. acetaminophen (TYLENOL) 500 mg tablet Take 2 tablets by mouth every 8 hours. docusate sodium (COLACE ORAL) Take 1 tablet by mouth once daily as needed. senna-docusate (SENNA-S) 8.6-50 mg per tablet Take 1 tablet by mouth once daily as needed for constipation. omeprazole (PRILOSEC) 40 mg capsule Take 1 capsule by mouth once daily. No current facility-administered medications for this visit. ALLERGIES: Penicillins and Sulfa (Sulfonamide Antibiotics) PERSONAL HISTORY: SOCIAL HISTORY Social History Tobacco Use Smoking status: Never Passive exposure: Never Smokeless tobacco: Never Vaping Use Vaping status: Never Used Substance Use Topics Alcohol use: Never Drug use: Never FAMILY HISTORY: FAMILY HISTORY FAMILY HISTORY Problem Relation Age of Onset Ovarian cancer Mother dx 50s Arthritis Father No Known Problems Maternal Grandmother No Known Problems Maternal Grandfather No Known Problems Paternal Grandmother No Known Problems Paternal Grandfather Cancer Maternal Aunt 7 aunts with breast or ovarian cancer. details unknown REVIEW OF SYMPTOMS: The review of systems data was entered by the nurse and reviewed by me There are no exam notes on file for this visit. PHYSICAL EXAMINATION: General: The patient is 74 year old female, well nourished, well hydrated in no acute distress. The patient is oriented to time, place, and person. VITALS: Blood pressure 126/84, pulse 72, resp. rate 14, height 162.6 cm (5' 4), weight 54.9 kg (121 lb), SpO2 100%. Body mass index is 20.77 kg/m . HEENT: Normal cephalic, ataumatic, pupils are equally round, sclera are anicteric, mucous membranes are moist, oropharynx is clear. Neck has no masses, asymmetry or lymphadenopathy. Thyroid is unremarkable. Respiratory: Clear to auscultation and percussion. Normal respiratory excursion and pattern. Cardiac: Examination is regular rate and rhythm. Abdominal exam: Soft, nontender, with no palpable masses. No hepatosplenomegaly. No palpable hernias. Rectal exam: exam deferred Extremities: no clubbing, cyanosis or edema. No adenopathy. Other: LABORATORY VALUES: As Noted RADIOLOGIC STUDIES: As Noted Assessment IMPRESSION: Rectal bleeding, reflux PLAN: I plan to perform upper and lower endoscopy. We discussed the risks and benefits of the planned endoscopy. I have informed the patient that complications can occur including failure to complete the endoscopy and perforation. The patient had the opportunity to ask questions concerning the planned endoscopy. My staff has also explained the procedure to the patient in understandable terms and has given the patient printed material concerning the procedure. The patient freely consents to surgery. I plan to use golytely bowel preparation for endoscopy. The patient does not have to drink the complete jug if she is turning clear I plan for monitored anesthetic care. Diagnoses: (K62.5) Rectal bleeding (primary encounter diagnosis) (K64.9) Hemorrhoids, unspecified hemorrhoid type (R13.10) Dysphagia, unspecified type My findings have been communicated to Dr. Cruz via shared medical record. This note will be forwarded to Dr. Shay Cardoza MD. Return to Clinic: The patient is instructed to follow-up with me after the testing has been completed. Wu Moe MD HISTORY AND PHYSICAL Savana Patel 1950 REFERRING PHYSICIAN: Js Cruz DO CHIEF COMPLAINT: Consult HPI: The patient is a 74 year old female referred for endoscopy. Savana notes rectal bleeding for 2 days duration following a paracentesis. The patient receives paracentesis regularly had approximately 1 L of fluid withdrawn. The patient then noted bright red blood per rectum following those movements. She denies melena. The patient has been doing well since that time. She presented to [facility] emergency department on July 07, 2024. The patient notes reflux symptoms which worsen as her ascites builds and is improved after paracentesis Savana has undergone prior endoscopy. 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 She then underwent an open right hemicolectomy for cecal volvulus on July 14, 2023. Dr. Craft was able to free up the volvulized cecum and resect a few loops of ileum which were felt to be involved in the malignant process. He performed a stapled reanastomosis. Dr. Cote performed tumor debulking and right ureter tumor lysis at the same procedure. Pathology from that procedure returned as: FINAL DIAGNOSIS A. 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 B. 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 C. 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 - Background small bowel with acute serositis, possibly procedure-related. - Appendix with fibrous obliteration. - Thirteen lymph nodes, negative for malignancy (0/13). D. Fascia, anterior abdominal wall, excision: - Fat necrosis with associated dystrophic calcification, negative for malignancy. The patient is being seen by me today at the request of Dr. Cruz for my opinion and advice regarding rectal bleeding and reflux. PAST MEDICAL HISTORY PAST MEDICAL HISTORY Diagnosis Date Actinic keratosis 04/12/2007 Advance directive discussed with patient 08/24/2022 Discussed 08/2022: Up to date DEANDRE positive 07/25/2016 Rheum felt just Arthritis. 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, NON-NEOPLASTIC 02/18/2007 Constipation 04/04/2015 Dysmetabolic syndrome X 12/28/2007 Essential hypertension 04/04/2015 GERD without esophagitis 07/24/2020 Hemorrhage of gastrointestinal tract, unspecified History of left mastectomy 05/05/2018 Impaired fasting glucose 11/21/2007 Internal hemorrhoids without mention of complication Iron deficiency anemia due to chronic blood loss 09/02/2023 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 Leg cramps 01/08/2020 Living will on file 07/31/2021 DPA: Javier ( ) Malignant neoplasm of both ovaries (HCC) 10/26/2018 Mixed hyperlipidemia 04/04/2015 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 multiple joints 07/27/2016 Osteopenia 12/28/2012 Other acne 05/29/2008 Other seborrheic keratosis 02/18/2007 Panic attacks 07/18/2012 Primary insomnia 01/29/2022 S/P colectomy 08/06/2023 SOLAR LENGINES///DYSCHROMIA OTHER 02/18/2007 Thrombocytopenia (HCC) 01/29/2022 chronic Trigger ring finger of left hand 07/24/2020 Trigger ring finger of right hand 07/24/2020 PAST SURGICAL HISTORY PAST SURGICAL HISTORY Procedure Laterality Date BX BREAST PERC VACUUM/ROTN 10/26/2007 LEFT COLONOSCOPY FLX DX W/COLLJ SPEC WHEN PFRMD 07/20/2005 COLONOSCOPY FLX DX W/COLLJ SPEC WHEN PFRMD 05/01/2016 normal - 10 year follow up LAPAROSCOPIC HEMICOLECTOMY Right 06/2023 LIG/TRNSXJ FLP TUBE ABDL/VAG APPR UNI/BI Tubal ligation MAST RAD W/PECTORAL MUSCLES AXILLARY LYMPH NODES 11/2007 Left PAST SURGICAL HISTORY OF BACK SURGERY PAST SURGICAL HISTORY OF 10/06/2018 Exploratory laparotomy, total abdominal hysterectomy, bilateral salpingooophorectomy, and bladder and posterior culdesac peritoneum resected en bloc, omentectomy [facility] LOCALZTN CLIP,PERC,DURING BREAST BX 10/26/2007 LEFT S PORT-A-CATH [id number] 11/09/2018 TONSILLECTOMY PRIMARY/SECONDARY <AGE 11 Tonsillectomy CURRENT MEDICATIONS Current Outpatient Medications Medication Sig ondansetron (ZOFRAN) 8 mg tablet Take 1 tablet by mouth every 8 hours as needed for nausea/vomiting. acetaminophen (TYLENOL) 500 mg tablet Take 2 tablets by mouth every 8 hours. docusate sodium (COLACE ORAL) Take 1 tablet by mouth once daily as needed. senna-docusate (SENNA-S) 8.6-50 mg per tablet Take 1 tablet by mouth once daily as needed for constipation. omeprazole (PRILOSEC) 40 mg capsule Take 1 capsule by mouth once daily. No current facility-administered medications for this visit. ALLERGIES: Penicillins and Sulfa (Sulfonamide Antibiotics) PERSONAL HISTORY: SOCIAL HISTORY Social History Tobacco Use Smoking status: Never Passive exposure: Never Smokeless tobacco: Never Vaping Use Vaping status: Never Used Substance Use Topics Alcohol use: Never Drug use: Never FAMILY HISTORY: FAMILY HISTORY FAMILY HISTORY Problem Relation Age of Onset Ovarian cancer Mother dx 50s Arthritis Father No Known Problems Maternal Grandmother No Known Problems Maternal Grandfather No Known Problems Paternal Grandmother No Known Problems Paternal Grandfather Cancer Maternal Aunt 7 aunts with breast or ovarian cancer. details unknown REVIEW OF SYMPTOMS: The review of systems data was entered by the nurse and reviewed by me There are no exam notes on file for this visit. PHYSICAL EXAMINATION: General: The patient is 74 year old female, well nourished, well hydrated in no acute distress. The patient is oriented to time, place, and person. VITALS: Blood pressure 126/84, pulse 72, resp. rate 14, height 162.6 cm (5' 4), weight 54.9 kg (121 lb), SpO2 100%. Body mass index is 20.77 kg/m . HEENT: Normal cephalic, ataumatic, pupils are equally round, sclera are anicteric, mucous membranes are moist, oropharynx is clear. Neck has no masses, asymmetry or lymphadenopathy. Thyroid is unremarkable. Respiratory: Clear to auscultation and percussion. Normal respiratory excursion and pattern. Cardiac: Examination is regular rate and rhythm. Abdominal exam: Soft, nontender, with no palpable masses. No hepatosplenomegaly. No palpable hernias. Rectal exam: exam deferred Extremities: no clubbing, cyanosis or edema. No adenopathy. Other: LABORATORY VALUES: As Noted RADIOLOGIC STUDIES: As Noted Assessment IMPRESSION: Rectal bleeding, reflux PLAN: I plan to perform upper and lower endoscopy. We discussed the risks and benefits of the planned endoscopy. I have informed the patient that complications can occur including failure to complete the endoscopy and perforation. The patient had the opportunity to ask questions concerning the planned endoscopy. My staff has also explained the procedure to the patient in understandable terms and has given the patient printed material concerning the procedure. The patient freely consents to surgery. I plan to use golytely bowel preparation for endoscopy. The patient does not have to drink the complete jug if she is turning clear I plan for monitored anesthetic care. Diagnoses: (K62.5) Rectal bleeding (primary encounter diagnosis) (K64.9) Hemorrhoids, unspecified hemorrhoid type (R13.10) Dysphagia, unspecified type My findings have been communicated to Dr. Cruz via shared medical record. This note will be forwarded to Dr. Shay Cardoza MD. Return to Clinic: The patient is instructed to follow-up with me after the testing has been completed. Wu Moe MD documented in this encounter [facility] 07-31-2024 Telephone encounter Note Paracentesis scheduled at [place]. Patient just wanted to schedule one at this time. Beatrice Chu LPN [facility] 07-31-2024 Miscellaneous Notes Paracentesis scheduled at [place]. Patient just wanted to schedule one at this time. Beatrice Chu LPN Still waiting to be scheduled for weekly paracentesis at [place]. Beatrice Chu LPN Spoke with patient and scheduled CT for today 07/28 Rupal Marshall Patient called and left a VM asking if she can get CT scans today? Please contact patient to schedule. Thank you. Doreen Jerome RN Patient is scheduled for an EGD and colonoscopy on Wednesday. Patient stated she has to go to [place] tomorrow; this nurse suggested that perhaps she could get the CT's done in [place] if she is already going to be up there but she declined. Patient is nervous about scheduling on Wednesday however this nurse suggested that she have the CT's done on Wednesday and we move her OV to a different day. PSS- please contact patient to schedule CT's with patient. Patient informed she needs to get the CT's done but she would like to get the EGD/colonoscopy done first. If there are openings on Wednesday and she is agreeable to having scans this day, we could move her OV to Wednesday? (I'm working on an email for people to move next week) Thank you. Doreen Jerome RN Dr. Moe's OV note is not completed yet. Beatrice Chu LPN Spoke with patient to scheduled CT. [facility] has 2 openings 07/28 but patient isn't sure if she should schedule due to her appointment with Dr. Moe on 07/26. Patient is requesting to view his notes from OV before she proceeds with scheduling. Please advise Rupal Marshall PSS- Needs CT C/A/P with contrast prior to OV next week. Also needs weekly paracentesis scheduled at [place] [facility]. Beatrice Chu LPN He doesn't need every other week CTs. I updated orders and filed. Js Cruz DO Pended CT QOW and paracentesis weekly.-secure chat started PSS please assist in scheduling ([place]). Rut Mcintyre LPN Please schedule for weekly standing potential paracentesis. Needs CT C/A/P with contrast prior to OV next week. Please pend stat orders. Js Cruz DO Patient calls in today stating she had a paracentesis today and is asking moving forward how often she should be scheduling them. Do you want her to have a PRN order? Has f/u next week with you. Rut Mcintyre LPN Patient called stating she had fluids drawn today at [place]. She states she will need another appointment. She asks if she is to make the next one or if the office does. Please advise documented in this encounter [facility] 07-30-2024 Telephone encounter Note calling with request for clear liquid diet information denies any new or worsening symptoms of which a provider is not aware: Yes. Instructed on a clear liquid diet with no red or purple items. [facility] 07-30-2024 Miscellaneous Notes calling with request for clear liquid diet information denies any new or worsening symptoms of which a provider is not aware: Yes. Instructed on a clear liquid diet with no red or purple items. documented in this encounter [facility] 07-30-2024 Telephone encounter Note calling, patient started her Golytely prep early, has made it through about half. Vomited prep at 1515 and has only used the bathroom once. Stool is not clear. Patient is no longer feeling nauseous. Reviewed office visit note from 07/26/24 and reviewed prep guidelines and instructions. Patient was drinking 1 glass every 10 minutes instead of every 15 minutes. Advised that since prep was started early, to wait at least 15 minutes in between glasses of prep. Recommended Patient to restart prep in 30-60 minutes. Call back NOC with any further concerns. agreeable with plan and verbalized understanding. [facility] 07-30-2024 Miscellaneous Notes calling, patient started her Golytely prep early, has made it through about half. Vomited prep at 1515 and has only used the bathroom once. Stool is not clear. Patient is no longer feeling nauseous. Reviewed office visit note from 07/26/24 and reviewed prep guidelines and instructions. Patient was drinking 1 glass every 10 minutes instead of every 15 minutes. Advised that since prep was started early, to wait at least 15 minutes in between glasses of prep. Recommended Patient to restart prep in 30-60 minutes. Call back NOC with any further concerns. agreeable with plan and verbalized understanding. documented in this encounter [facility] 07-30-2024 History of Presen t illness Narrative HISTORY AND PHYSICAL Savana Patel 1950 REFERRING PHYSICIAN: Js Cruz DO CHIEF COMPLAINT: Consult HPI: The patient is a 74 year old female referred for endoscopy. Savana notes rectal bleeding for 2 days duration following a paracentesis. The patient receives paracentesis regularly had approximately 1 L of fluid withdrawn. The patient then noted bright red blood per rectum following those movements. She denies melena. The patient has been doing well since that time. [facility] department on July 07, 2024. The patient notes reflux symptoms which worsen as her ascites builds and is improved after paracentesis Savana has undergone prior endoscopy. 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 She then underwent an open right hemicolectomy for cecal volvulus on July 14, 2023. Dr. Craft was able to free up the volvulized cecum and resect a few loops of ileum which were felt to be involved in the malignant process. He performed a stapled reanastomosis. Dr. Cote performed tumor debulking and right ureter tumor lysis at the same procedure. Pathology from that procedure returned as: FINAL DIAGNOSIS A. 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 B. 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 C. 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 - Background small bowel with acute serositis, possibly procedure-related. - Appendix with fibrous obliteration. - Thirteen lymph nodes, negative for malignancy (0/13). D. Fascia, anterior abdominal wall, excision: - Fat necrosis with associated dystrophic calcification, negative for malignancy. The patient is being seen by me today at the request of Dr. Cruz for my opinion and advice regarding rectal bleeding and reflux. PAST MEDICAL HISTORY Diagnosis Date Actinic keratosis 04/12/2007 Advance directive discussed with patient 08/24/2022 Discussed 08/2022: Up to date DEANDRE positive 07/25/2016 Rheum felt just Arthritis. 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 [place] ANGIOMA///NEVUS, NON-NEOPLASTIC 02/18/2007 Constipation 04/04/2015 Dysmetabolic syndrome X 12/28/2007 Essential hypertension 04/04/2015 GERD without esophagitis 07/24/2020 Hemorrhage of gastrointestinal tract, unspecified History of left mastectomy 05/05/2018 Impaired fasting glucose 11/21/2007 Internal hemorrhoids without mention of complication Iron deficiency anemia due to chronic blood loss 09/02/2023 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 Leg cramps 01/08/2020 Living will on file 07/31/2021 DPA: Javier ( ) Malignant neoplasm of both ovaries (HCC) 10/26/2018 Mixed hyperlipidemia 04/04/2015 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 multiple joints 07/27/2016 Osteopenia 12/28/2012 Other acne 05/29/2008 Other seborrheic keratosis 02/18/2007 Panic attacks 07/18/2012 Primary insomnia 01/29/2022 S/P colectomy 08/06/2023 SOLAR LENGINES///DYSCHROMIA OTHER 02/18/2007 Thrombocytopenia (HCC) 01/29/2022 chronic Trigger ring finger of left hand 07/24/2020 Trigger ring finger of right hand 07/24/2020 PAST SURGICAL HISTORY Procedure Laterality Date BX BREAST PERC VACUUM/ROTN 10/26/2007 LEFT COLONOSCOPY FLX DX W/COLLJ SPEC WHEN PFRMD 07/20/2005 COLONOSCOPY FLX DX W/COLLJ SPEC WHEN PFRMD 05/01/2016 normal - 10 year follow up LAPAROSCOPIC HEMICOLECTOMY Right 06/2023 LIG/TRNSXJ FLP TUBE ABDL/VAG APPR UNI/BI Tubal ligation MAST RAD W/PECTORAL MUSCLES AXILLARY LYMPH NODES 11/2007 Left PAST SURGICAL HISTORY OF BACK SURGERY PAST SURGICAL HISTORY OF 10/06/2018 Exploratory laparotomy, total abdominal hysterectomy, bilateral salpingooophorectomy, and bladder and posterior culdesac peritoneum resected en bloc, omentectomy [facility] LOCALZTN CLIP,PERC,DURING BREAST BX 10/26/2007 LEFT S PORT-A-CATH [id number] 11/09/2018 TONSILLECTOMY PRIMARY/SECONDARY <AGE 11 Tonsillectomy Current Outpatient Medications Medication Sig ondansetron (ZOFRAN) 8 mg tablet Take 1 tablet by mouth every 8 hours as needed for nausea/vomiting. acetaminophen (TYLENOL) 500 mg tablet Take 2 tablets by mouth every 8 hours. docusate sodium (COLACE ORAL) Take 1 tablet by mouth once daily as needed. senna-docusate (SENNA-S) 8.6-50 mg per tablet Take 1 tablet by mouth once daily as needed for constipation. omeprazole (PRILOSEC) 40 mg capsule Take 1 capsule by mouth once daily. No current facility-administered medications for this visit. ALLERGIES: Penicillins and Sulfa (Sulfonamide Antibiotics) PERSONAL HISTORY: Social History Tobacco Use Smoking status: Never Passive exposure: Never Smokeless tobacco: Never Vaping Use Vaping status: Never Used Substance Use Topics Alcohol use: Never Drug use: Never FAMILY HISTORY: FAMILY HISTORY Problem Relation Age of Onset Ovarian cancer Mother dx 50s Arthritis Father No Known Problems Maternal Grandmother No Known Problems Maternal Grandfather No Known Problems Paternal Grandmother No Known Problems Paternal Grandfather Cancer Maternal Aunt 7 aunts with breast or ovarian cancer. details unknown REVIEW OF SYMPTOMS: The review of systems data was entered by the nurse and reviewed by me There are no exam notes on file for this visit. PHYSICAL EXAMINATION: General: The patient is 74 year old female, well nourished, well hydrated in no acute distress. The patient is oriented to time, place, and person. VITALS: Blood pressure 126/84, pulse 72, resp. rate 14, height 162.6 cm (5' 4), weight 54.9 kg (121 lb), SpO2 100%. Body mass index is 20.77 kg/m . HEENT: Normal cephalic, ataumatic, pupils are equally round, sclera are anicteric, mucous membranes are moist, oropharynx is clear. Neck has no masses, asymmetry or lymphadenopathy. Thyroid is unremarkable. Respiratory: Clear to auscultation and percussion. Normal respiratory excursion and pattern. Cardiac: Examination is regular rate and rhythm. Abdominal exam: Soft, nontender, with no palpable masses. No hepatosplenomegaly. No palpable hernias. Rectal exam: exam deferred Extremities: no clubbing, cyanosis or edema. No adenopathy. Other: LABORATORY VALUES: As Noted RADIOLOGIC STUDIES: As Noted Assessment IMPRESSION: Rectal bleeding, reflux PLAN: I plan to perform upper and lower endoscopy. We discussed the risks and benefits of the planned endoscopy. I have informed the patient that complications can occur including failure to complete the endoscopy and perforation. The patient had the opportunity to ask questions concerning the planned endoscopy. My staff has also explained the procedure to the patient in understandable terms and has given the patient printed material concerning the procedure. The patient freely consents to surgery. I plan to use golytely bowel preparation for endoscopy. The patient does not have to drink the complete jug if she is turning clear I plan for monitored anesthetic care. Diagnoses: (K62.5) Rectal bleeding (primary encounter diagnosis) (K64.9) Hemorrhoids, unspecified hemorrhoid type (R13.10) Dysphagia, unspecified type My findings have been communicated to Dr. Cruz via shared medical record. This note will be forwarded to Dr. Shay Cardoza MD. Return to Clinic: The patient is instructed to follow-up with me after the testing has been completed. Wu Moe MD REVIEW OF SYSTEMS: General: The patient denies fatigue, denies weight loss, denies weight gain, denies feeling hot, and denies feelings of cold. Eyes: The patient denies glaucoma, denies eye injury/surgery, does not wear glasses or contacts. Ear/Nose/Throat: The patient notes allergies, denies hayfever, denies ear infections, and denies bloody noses. Cardiovascular: The patient denies chest pain, denies heart disease, denies high blood pressure,denies cardiac stent, denies prior heart attack, denies irregular heart beat, denies high cholesterol, denies poor circulation, denies heart failure, other cardiac issues, denies claudication, denies cold feet, denies peripheral arterial stent. Respiratory: The patient denies tuberculosis, denies pneumonia, denies frequent cough, denies pulmonary embolism, denies shortness of breath, and denies coughing up blood. Gastrointestinal: The patient denies difficulty swallowing, notes acid reflux, denies ulcers, denies vomiting, denies jaundice/hepatitis, denies gallbladder problems, denies black or tarry stools, notes hemorrhoids, denies bleeding from rectum, denies diverticulitis, notes constipation, notes diarrhea, denies loss of stool control, and denies hernias. Kidney/Bladder: The patient denies kidney stones, denies urine infections, and denies bloody urine. Skin: The patient denies a history of skin cancer, denies bleeding/changing moles, and denies a history of skin rash. Neurologic: The patient denies a history of epilepsy/convulsions, denies headaches, denies head/spinal injuries, and denies stroke/TIA. Psychiatric: The patient denies psychiatric medications, denies depression, and denies voices, denies substance abuse. Endocrine: The patient denies thyroid disorders, denies diabetes, and denies hormonal problems. Hematologic: The patient denies a history of bruising, denies bleeding, and denies anemia, denies blood clots. Infections: The patient denies a history of measles and mumps, denies rheumatic fever, and denies sexually transmitted diseases. Musculoskeletal: The patient denies back pain/injury, denies back problems, denies sciatica, denies knee/foot trouble, denies arthritis, or denies gout. When was patient's last Mammogram screening? MRI Breast 12/31/2021 Last Colonoscopy: 07/07/2023 Rita Gold LPN documented in this encounter [facility] 07-28-2024 History of Presen t illness Narrative Radiology Service Progress Note PATIENT NAME: Savana Patel DATE OF SERVICE: July 28, 2024 TIME: 3:57 PM PATIENT IDENTITY VERIFICATION COMPLETED USING TWO (2) IDENTIFIERS: Name and Date of confirmed by patient verbally. FALL SCREENING: Has the patient had 2 falls in the last year or 1 fall with injury or currently using an Ambulatory Assistive Device (Walker, Cane, Wheelchair, Crutches, etc.)? No PATIENT GENDER DATA: Assigned female at . status: : No status: NO. PATIENT RELEVANT IMPLANT DATA REVIEWED: Yes PATIENT PRESENTS WITH AN IMPLANTABLE OR ATTACHED FRETTED STRING INSTRUMENT REPAIRER: No RADIOLOGY DEPARTMENT: CT; Exam(s) Completed: Chest Abdomen Pelvis PERIPHERAL IV DATA: power port accessed by Xierkang SIGNED BY: RT Laurie(R) July 28, 2024 3:57 PM documented in this encounter [facility] 07-28-2024 Telephone encounter Note Still waiting to be scheduled for weekly paracentesis at [place]. Beatrice Chu LPN [facility] 07-28-2024 Telephone encounter Note Spoke with patient and scheduled CT for today 07/[address] [facility] 07-28-2024 Telephone encounter Note Patient called and left a VM asking if she can get CT scans today? Please contact patient to schedule. Thank you. Doreen Jerome RN [facility] 07-27-2024 Telephone encounter Note Patient is scheduled for an EGD and colonoscopy on Wednesday. Patient stated she has to go to [place] tomorrow; this nurse suggested that perhaps she could get the CT's done in [place] if she is already going to be up there but she declined. Patient is nervous about scheduling on Wednesday however this nurse suggested that she have the CT's done on Wednesday and we move her OV to a different day. PSS- please contact patient to schedule CT's with patient. Patient informed she needs to get the CT's done but she would like to get the EGD/colonoscopy done first. If there are openings on Wednesday and she is agreeable to having scans this day, we could move her OV to Wednesday? (I'm working on an email for people to move next week) Thank you. Doreen Jerome RN [facility] 07-27-[address] Moe's OV note is not completed yet. Beatrice Chu LPN [facility] 07-27-2024 Telephone encounter Note Spoke with patient to scheduled CT. [facility] has 2 openings 07/28 but patient isn't sure if she should schedule due to her appointment with Dr. Moe on 07/26. Patient is requesting to view his notes from OV before she proceeds with scheduling. Please advise Rupal Marshall [facility] 07-27-2024 Telephone encounter Note PSS- Needs CT C/A/P with contrast prior to OV next week. Also needs weekly paracentesis scheduled at [facility]. Beatrice Chu LPN [facility] 07-26-2024 Telephone encounter Note He doesn't need every other week CTs. I updated orders and filed. Js Cruz DO [facility] 07-26-2024 Telephone encounter Note Pended CT QOW and paracentesis weekly.-secure chat started PSS please assist in scheduling ([place]). Rut Mcintyre LPN [facility] 07-26-2024 Telephone encounter Note Please schedule for weekly standing potential paracentesis. Needs CT C/A/P with contrast prior to OV next week. Please pend stat orders. Js Cruz DO [facility] 07-26-2024 Instructions Wu Moe MD - 07/26/2024 2:58 PM EST COLONOSCOPY BOWEL PREPARATION INSTRUCTIONS GOLYTELY/NULYTELY/TRILYTE/COLYTE Your doctor has scheduled you for a colonoscopy. To have a successful colonoscopy, you must have a clean colon, that is empty. A clean colon allows your doctor to see the entire colon & diagnose issues like polyps or cancer. For doctors, a clean colon is like driving on a will day; a dirty colon like driving in a storm. It is very important that you follow these instructions exactly, or your colonoscopy might not be as effective, could be canceled, and you may need to do the bowel prep and the colonoscopy again. TRANSPORTATION REQUIREMENTS You are receiving IV sedation. For your safety, a responsible adult escort must accompany you to and from your procedure: Your adult escort MUST be present with you at check-in for your colonoscopy. Your adult escort MUST remain in the endoscopy area until you are discharged. Your adult escort MUST transport you home once you are discharged. You are NOT allowed to operate any form of transportation (i.e. drive a car, bicycle, etc.) or leave the Endoscopy Center ALONE. It is not safe to do so. If you cannot meet these requirements, your procedure will be canceled. MEDICATION REQUIREMENTS For your safety, certain medications will need to be stopped or adjusted before you can have your procedure: BLOOD THINNERS: If you take blood thinners, such as Coumadin (warfarin), Plavix (clopidogrel), Ticlid (ticlopidine hydrochloride), Agrylin (anagrelide), Xarelto (Rivaroxaban), Pradaxa (Dabigatran), Eliquis (Apixaban), or Effient (Prasugrel), contact the physician who is prescribing these medications at least 2 weeks prior to your procedure to discuss any necessary adjustments. DIABETES: If you take medications for diabetes, your dosage may need to be adjusted. If you are being treated for diabetes with insulin, diabetic pills, or other injectable medications do not take your REGULAR dose after midnight on the day of your procedure. If you are taking any other types of insulin such as Lantus, Humalog, NPH (long-acting insulin), or 70/30 insulin, take half your normal dose the day before your procedure. DIABETES/WEIGHT MANAGEMENT: If you take medications for weight-loss, your dosage may need to be adjusted Contact the doctor who prescribes this medication for further instructions. If you take medications for weight-loss like semaglutide (Ozempic, Wegovy, Rybelsus), dulaglutide (Trulicity), liraglutide (Victoza, Saxenda), exenatide (Byetta, Bydureon), or lixisenatide (Adylyxin), stop your medication 1 week prior to your procedure. If you take medications like canagliflozin (Invokana), dapagliflozin (Farxiga, Forxiga), empagliflozin (Jardiance), stop your medication 3 days prior to your procedure. If you take ertugliflozin (Steglatro) stop your medication 4 days prior to your procedure. IRON: If you take iron pills, STOP them 1 week BEFORE your procedure, may resume after. OTHER MEDS: May take all other medications (including aspirin, antibiotics, water pills / diuretics like Lasix or Metolozone, blood pressure meds, etc.) at their usual scheduled time with a sip of water. DIET REQUIREMENTS The day before your colonoscopy, you may have a clear liquid diet (see below). The day of your colonoscopy, you may continue a clear liquid diet until 3 hours before your colonoscopy. Within 3 hours of your colonoscopy, take only any medications (as above) with a sip of water. Clear Liquid Diet Broth (chicken, beef or vegetable broth or bullion. Just the broth, no solids). Water Coffee or Tea (NO milk or creamer), but sugar and sugar substitutes are allowed. Clear liquids including clear, yellow, green, blue (NO red, NO orange, NO purple) Sodas / soft drinks Gatorade or other sports drinks Tyrel-Aid or flavored drinks Plain Jell-O or other gelatins Fruit juice (strained; no-pulp) Popsicles or hard candy BOWEL PREPARATION (GOLYTELY/NULYTELY/TRILYTE/COLYT E) Split Dosing Bowel Prep: This means drinking your bowel prep in two doses. Split dosing helps clean your colon better and makes it less likely that your procedure will be canceled. Fill your prescription for Golytely/Nulytely/Trilyte/Colyte : The afternoon before your colonoscopy, mix the solution and refrigerate. You may add the flavor pack (if present) that came with the bowel preparation. Do not add ice, sugar, or other flavorings to the solution. You will drink your prep in two doses, by several hours. On the evening before your colonoscopy: 1. 6 PM drink one 8-ounce glass every 15 minutes until clear 2. You may continue a clear liquid diet until midnight before your colonoscopy. Bowel prep can work differently from person to person. Some people's bowels move slowly and they may need different instructions. Please see your doctor in office or virtually for personalized bowel prep instructions if you have: Medical condition that needs special accommodations Had a poor bowel prep results or failed bowel prep attempts in the past. Had difficulty with anesthesia during the procedure. FREQUENTLY ASKED QUESTIONS Q: What if I suffer from constipation? A: Recommend taking extra laxatives to resolve your constipation days prior to entering the bowel prep day. Q: What if have had prior poor preps results in past? A: Contact your physician as you will likely need additional bowel prep instructions. Q: What if I have motility issues like Parkinson's, MS (multiple sclerosis), wheelchair dependent, etc.? or on medications that slow bowel emptying (narcotics, gabapentin, anticholinergic medications etc.) A: Contact your physician as you will likely need extra time and additional laxatives to complete your bowel prep. Q: What if I cannot drink large volume of liquid? A: Start your prep 2-3 hours earlier to allow yourself more time to complete the entire prep. Q: What if I can't finish my bowel prep? A: If you cannot finish your entire bowel prep, it is likely that your colonoscopy will need to be rescheduled due to poor prep quality. Q: What if I had bariatric surgery? Do I still have to complete the entire prep? A: Yes, gastric bypass surgery involves the stomach & small bowel. You may need to drink smaller amounts, slower (may need more time to complete your bowel prep). Gastric bypass does not alter the length of your colon so you will need to complete the entire bowel prep, it may just take longer time to complete it. Q: What if I am on dialysis? A: Please consult your practice performance manager prior to scheduling to get instructions pertinent to you. In general, dialysis patients take the Golytely bowel prep and have the procedure same day of their dialysis (colonoscopy in AM, dialysis in PM). Q: How do I know if something is considered as clear liquid diet? A: If you can pour it in a glass and you can see through it, it is considered clear liquid Q: Can I eat nuts, seeds, beans, popcorn, dried fruits, vegetables & fruits that have skin peel? A: No, you will need to not eat these items starting 3 days prior to procedure. Q: Can I take Uber/Lyft/taxi/bus home? A: An adult MUST be present with you at check-in for your colonoscopy and remain in the endoscopy area until you are discharged. You can take Uber home only if this adult escort is with you at check in, remain in the endoscopy area until you are discharged, and takes the Uber with you to home. Q: Can I sleep it off here and drive myself home? A: No, you must have an adult with you at time of procedure check in, remain in the endoscopy center during your procedure, and drive you home. You cannot drive a vehicle after your procedure the rest of the day. documented in this encounter [facility] 07-25-2024 Telephone encounter Note Patient calls in today stating she had a paracentesis today and is asking moving forward how often she should be scheduling them. Do you want her to have a PRN order? Has f/u next week with you. Rut Mcintyre LPN [facility] 07-25-2024 Telephone encounter Note Patient called stating she had fluids drawn today at [place]. She states she will need another appointment. She asks if she is to make the next one or if the office does. Please advise [facility] Work Phone: 07-20-2024 Telephone encounter Note Rx sent. Js Cruz DO [facility] 07-20-2024 Miscellaneous Notes Rx sent. Js Cruz DO Pt notified and voices understanding. Pended a 20 mg omeprazole. Rut Mcintyre LPN She may have more ascites fluid building up but she is scheduled for paracentesis on 07/25. In the meantime I will send prescription for omeprazole. It may help quite a bit if she is able to elevate the head of the bed 4 inches. Js Cruz DO Patient complaining of indigestion for the past 2 weeks especially in the evening and at night. She feels there is no correlation to anything that she eats and states it is a burning in her throat and then she swallows it. She has been experiencing more belching with this to. Not taking any medications at this time and did try Tums with little relief. Please advise. documented in this encounter [facility] 07-20-2024 Telephone encounter Note Pt notified and voices understanding. Pended a 20 mg omeprazole. Rut Mcintyre LPN [facility] 07-20-2024 Telephone encounter Note She may have more ascites fluid building up but she is scheduled for paracentesis on 07/25. In the meantime I will send prescription for omeprazole. It may help quite a bit if she is able to elevate the head of the bed 4 inches. [address] [facility] 07-20-2024 History of Presen t illness Narrative CASE [id number] ([id number]): Tissue and Body Fluid Analysis from Patients with Cancer and Other Risk- Associated Lesions Patient seen in clinic for informed consent of the above mentioned protocol. Patient agrees to participate in the above mentioned research study in regards to previously obtained tissue and CARIS testing. The patient has signed a copy of the informed consent. Patient has contact information for the study team and Dr. Js Cruz D.O. . See consent note in Epic. Patient ineligible for a research blood draw. Lala Maldonado RN documented in this encounter [facility] 07-20-2024 Telephone encounter Note Patient complaining of indigestion for the past 2 weeks especially in the evening and at night. She feels there is no correlation to anything that she eats and states it is a burning in her throat and then she swallows it. She has been experiencing more belching with this to. Not taking any medications at this time and did try Tums with little relief. Please advise. [facility] 07-07-2024 Telephone encounter Note Spoke to patient. Patient informed of Dr. Cruz's response, stated understanding. Doreen Jerome RN [facility] 07-07-2024 Miscellaneous Notes Spoke to patient. Patient informed of Dr. Cruz's response, stated understanding. Doreen Jerome RN [facility]. Js Cruz DO Patient contacted office c/o gushes of blood with BM this morning. -Paracentesis 07/03/2024. -07/05 drop of blood with BM -07/06 little bit of blood with BM -07/07 gushes of blood with BM but not in BM. Patient concerned because she feels this was a lot of blood. Treatment 07/06/2024. Patient states she does have hemorrhoids but does not feel like this is being caused by that. Denies dizziness, lightheadedness, SOB, chest pain, nausea, abdominal bloating and abdominal pain. 07/04 Hgb 9.9 Beatrice Chu LPN documented in this encounter [facility] 07-07-2024 Telephone encounter Note [facility]. Js Cruz DO [facility] 07-07-2024 Telephone encounter Note Patient contacted office c/o gushes of blood with BM this morning. -Paracentesis 07/03/2024. -07/05 drop of blood with BM -07/06 little bit of blood with BM -07/07 gushes of blood with BM but not in BM. Patient concerned because she feels this was a lot of blood. Treatment 07/06/2024. Patient states she does have hemorrhoids but does not feel like this is being caused by that. Denies dizziness, lightheadedness, SOB, chest pain, nausea, abdominal bloating and abdominal pain. 07/04 Hgb 9.[address] [facility] 07-06-2024 Telephone encounter Note Patient informed of Dr. Cruz's response, stated understanding. Doreen Jerome RN [facility] 07-06-2024 Miscellaneous Notes Patient informed of Dr. Cruz's response, stated understanding. Doreen Jerome RN I talked with Dr. Cote previously. Although the effusion is malignant, her CT scans did not suggest obvious progression. CA125 can fluctuate. She is scheduled for another paracentesis in approximately 2 weeks. If she has continued rapid reaccumulation of ascites fluid we will consider changing therapy otherwise were planning CT scan after cycle 8. Js Cruz DO Patient is here today for treatment and is requesting cytology results. CA-125 is also available to review. A - Abdomen, Fluid Positive for malignant cells. Metastatic high-grade serous carcinoma Thank you. Doreen Jerome RN documented in this encounter [facility] 07-06-2024 Telephone encounter Note I talked with Dr. Cote previously. Although the effusion is malignant, her CT scans did not suggest obvious progression. CA125 can fluctuate. She is scheduled for another paracentesis in approximately 2 weeks. If she has continued rapid reaccumulation of ascites fluid we will consider changing therapy otherwise were planning CT scan after cycle 8. Js Cruz DO [facility] 07-06-2024 Telephone encounter Note Patient is here today for treatment and is requesting cytology results. CA-125 is also available to review. A - Abdomen, Fluid Positive for malignant cells. Metastatic high-grade serous carcinoma Thank you. Doreen Jerome RN [facility] 07-06-2024 History of Presen t illness Narrative Pt stated no changes from OV 07/04/23. Latoya Nathan RN documented in this encounter [facility] 07-04-2024 Telephone encounter Note 3 weeks IR paracentesis at [facility] -sent secure chat for scheduling purposes Please file order for scheduling purposes Rupal Marshall [facility] 07-04-2024 Miscellaneous Notes 3 weeks IR paracentesis at [facility] -sent secure chat for scheduling purposes Please file order for scheduling purposes Rupal Marshall documented in this encounter 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 Initially underwent pelvic ultrasound on 09/01/2018. Uterus appeared normal. The endometrial stripe was 2.3 mm. Right and left ovaries appeared normal. However there was a large amount of free fluid in the pelvic cul-de-sac. CT A/P 09/08/2018: Liver: No mass. Homogeneous texture. Biliary: No ductal dilatation is seen. Gallbladder is unremarkable. Spleen: Spleen is unremarkable. Pancreas: No mass or duct dilation. Adrenals: Adrenal glands are unremarkable. Kidneys: No mass, calculus or hydronephrosis is seen. GI tract: No bowel dilatation is seen. No evidence of obstruction. Lymph nodes: No evidence of adenopathy. Mesentery/Peritoneum: There is increased soft tissue density best seen in the coronal views extending from the lower abdomen into the pelvic area. This could represent peritoneal involvement with tumor. This is seen on coronal image 37 and axial images 99 through 122. It extends across the anterior aspect of the pelvic area seen on axial image 124. Vasculature: No evidence of dilatation of the abdominal aorta. CT PELVIS: Pelvis: There is a large amount of free fluid or loculated fluid in the pelvis suggesting that there could be an enhancing rim surrounding this fluid is seen on image 127 and measures 10.6 x 6.1 cm. Bones/Soft Tissues: No significant findings identified. Lower thorax: Unremarkable. CA125 was 1153 U/mL. Had employee relations consultant onc evaluation and CT chest unremarkable. Underwent exploratory laparotomy, optimal tumor bulking, total abdominal hysterectomy, bilateral salpingo-oophorectomy, resection of bladder cul-de-sac and pelvic peritoneal disease along with resection of omental caking with super colic omentectomy on 10/06/2018. Pathology: FINAL DIAGNOSIS 1. 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 2. 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 3. Uterus, cervix, bilateral ovaries and fallopian tubes, and bladder/pelvic peritoneum, hysterectomy and excision (C) Left fallopian tube - High grade serous carcinoma (see comment and synoptic report). Right fallopian tube - Positive for involvement by high grade serous carcinoma. Bilateral ovaries - Positive for involvement by high grade serous carcinoma. Uterine serosa - Positive for involvement by high grade serous carcinoma. Bladder/pelvic peritoneum - Positive for involvement by high grade serous carcinoma. Endometrium - Inactive endometrium. Myometrium - Negative for malignancy. Cervix - Negative for malignancy. SYNOPTIC REPORT OF BRAUN PATHOLOGIC FINDINGS UTERUS, CERVIX, BILATERAL TUBES AND OVARIES, BLADDER, AND PELVIC PERITONEUM: Procedure: Total hysterectomy and bilateral salpingo-oophorectomy Omentectomy Peritoneal biopsies Specimen Integrity: Left fallopian tube serosa intact Primary Tumor Site: Left fallopian tube Ovarian Surface Involvement: Present Specify laterality (if applicable): Bilateral Fallopian Tube Surface Involvement: Present Specify laterality (if applicable): Bilateral Tumor Size: Greatest dimension: 1.6 cm Histologic Type: Serous carcinoma Histologic Grade: Not applicable Two-tier grading System: High grade Implants: Not applicable/not sampled Involvement of other tissues/organs: Right ovary Left ovary Right fallopian tube Pelvic peritoneum Omentum Other organs/tissues (specify): Uterine serosa Largest extrapelvic peritoneal focus, macroscopic (greater than 2 cm) Peritoneal Ascitic Fluid, Not submitted/unknown Treatment Effect: No known presurgical therapy Regional Lymph Nodes: No nodes submitted or found Pathologic Stage Classification (pTNM, AJCC 8th ed) TNM Descriptors: Not applicable Primary Tumor (pT): pT3c: Macroscopic peritoneal metastasis beyond pelvis more than 2 cm in greatest dimension with or without metastasis to the retroperitoneal lymph nodes (includes extension to capsule of liver and spleen without parenchymal involvement of either organ) Regional Lymph Nodes (pN): pNX: Cannot be assessed Distant Metastasis (pM): Not applicable/Not confirmed pathologically in this case Previous therapy: 1) 11/11/2018 - 02/03/2019: PACLITAXEL 80 D1,8,15 CARBOPLATIN 6 D1 - Q21D s/p 4 cycles. *neutropenia/thrombocytopenia causing treatment delay. Neulasta OnPro added; switch to Q21D dosing of Taxol with cycles 5 & 6 02/23/2019 - 03/17/2019: PACLITAXEL 135 D1 CARBOPLATIN 6 D1 - Q21D s/p 2 cycles. 2) 06/30/2019 - 06/20/2021: olaparib (LYNPARZA) 150 mg tablet; 300 mg BID. CTs 06/29/2022: Mesentery/Peritoneum: * New 0.4 cm anterior mesenteric fat nodule (8:57) * Confluent infiltrative soft tissue in RIGHT false pelvis surrounding the terminal ileum and ascending colon (cecum deep in pelvis) and probably affecting the sigmoid colon; difficult to precisely measure as it envelops bowel but including bowel measures approximately 4.5 x 2.9 cm (8:101); process extends to the RIGHT psoas muscle * Several small subtle anterior mesenteric fat nodules * No free abdominal fluid MRI pelvis 07/02/2022: Similar imaging findings since CT 06/29/2022, redemonstrating pelvic peritoneal/serosal carcinomatosis involving segments of bowel predominantly in the right anterior pelvis, with confluent soft tissue encasing the proximal ascending colon and causing relative upstream dilation of the low-lying cecum suggesting developing colonic obstruction. No small bowel dilation. No pelvic lymphadenopathy. 3) Carboplatin/paclitaxel x6 cycles. Completed 11/02/2022. Stable disease. 4) Doxil tolerated very well. PD 05/27/2023. 5) [place]. PD. CTs 05/27/2023 demonstrated progression of disease with an increase in size of irregular soft tissue density in the right pelvis as well as increasing thickening of the wall of the cecum. Presented to the ED at [facility] about a week later. CT scan demonstrated possible cecal volvulus. She was transferred to [facility]. Managed nonsurgically with NG decompression. NG was removed on her second hospital day and her diet was advanced to clear liquids and then the following day advance to full liquids then to gastrointestinal soft diet on day 3. She was discharged home with plans for outpatient follow-up and colectomy with possible cytoreduction. Underwent open right hemicolectomy on 07/14/2023. Initially Dr. Dawson performed laparotomy and excised several lower pelvic lesions. Dr. Jes maldonado performed the right hemicolectomy. He observed kinking of the cecum, proximal ascending colon and some of the distal ileum coming together causing narrowing of the pedicle around which the colon was volvulized. Pathology: FINAL DIAGNOSIS A. 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 B. 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 C. 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 - Background small bowel with acute serositis, possibly procedure-related. - Appendix with fibrous obliteration. - Thirteen lymph nodes, negative for malignancy (0/13). D. Fascia, anterior abdominal wall, excision: - Fat necrosis with associated dystrophic calcification, negative for malignancy. Current therapy: 1) Topotecan with bevacizumab. Presents for ongoing oncologic management. Interim history: Tolerating topotecan and bevacizumab very well overall. Underwent a 1.6 L paracentesis yesterday. [place] much better afterwards. Less early satiety. No nausea. Bowels moving regularly. No abdominal pain per se. Mild progression of fingertip neuropathy. PMH, medications and allergies personally reviewed by me today. Any changes documented in appropriate section. ROS: Constitutional: Denies episodes of fever and night sweats. Neuro: Denies MACHADO, vertigo, dizziness and imbalance. HEENT: No recent change in voice, vision or hearing. Resp: No cough, wheeze or hemoptysis. CVS: Denies exertional chest pain, PND, orthopnea and LE edema. GI: See above. : Denies dysuria or gross hematuria. Endo: Denies hot flashes. Denies polyuria and polydipsia. Denies heat and cold intolerance. Musculoskeletal: Denies bone, back, joint and muscular pain. Derm: Denies rash. Denies jaundice and diffuse pruritis. Heme: Denies unusual bleeding and unexplained bruising. Psych: Normal mood. PHYSICAL EXAM: Vitals: Blood pressure 125/70, pulse 73, temperature 37.1 C (98.8 F), temperature source Temporal, weight 54.2 kg (119 lb 8 oz), SpO2 99%. Well-appearing and in no acute distress. EYES: Sclerae are anicteric bilaterally. No conjunctival injection. LYMPHATIC: No palpable cervical or supraclavicular adenopathy. RESPIRATORY: Inspiratory breath sounds are of normal intensity in all bernabe. There are no crackles, wheezes or rales. CARDIOVASCULAR: Rhythm is regular. ABDOMEN: The abdomen is slightly distended. Paracentesis site right abdomen no bleeding or bruising. No appreciable fluid wave. Extremities: No swelling of the LEs. SKIN: No jaundice or rash. 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 -BRCA2 mutation (tested 04/2019). -Baseline CA125 1153 U/mL. -s/p right hemicolectomy with some tumor sampling/debulking. -FOLR1 IHC results--100% of cells stained +2-3+4 -Blood pressure under good control. -Tolerating topotecan with bevacizumab very well. -She developed worsening ascites that was symptomatic. Now status post paracentesis. Cytology pending. -Mild progression of fingertip neuropathy but not disabling. -On most recent radiographic assessment, she has stable disease. CA125 has been stable. -We discussed continuing current therapy until there is definitive radiographic evidence of progression of disease or rapid reaccumulation of ascites assuming malignant. We also discussed potential for abdominal catheter. Plan: -Okay for cycle #7 topotecan and bevacizumab tomorrow. -Monitor CA125 each cycle. -CTs following 2 more cycles. -We will schedule for another ultrasound-guided paracentesis in about 3 weeks if she feels need for it. If not can be canceled. -We will follow-up with her on the results of today's CA125 as well as the cytology from the paracentesis fluid. Portions of this documentation were copied and pasted from my previous office visit note dated 03/29/2024 in order to provide a cohesive continuity of the history. The note has been reviewed and edited and updated as necessary. Js Cruz DO documented in this encounter [facility] 06-30-2024 Telephone encounter Note Great. Thank you. Order filed. Js Cruz DO [facility] 06-30-2024 Miscellaneous Notes Great. Thank you. Order filed. Js Cruz DO Please file order. Patient is scheduled for Wednesday at [place]. Beatrice Chu LPN Spoke with Dr. Cote. He recommended she have a paracentesis and fluid sent for cytology. I ordered the paracentesis but again cannot find the correct order for cytology. Can you please pend? Let her know and lets arrange this for either [place] or [facility] As soon as able. Js Cruz DO documented in this encounter [facility] 06-30-2024 Telephone encounter Note Please file order. Patient is scheduled for Wednesday at [place]. Beatrice Chu LPN [facility] 06-30-2024 Telephone encounter Note Spoke with Dr. Cote. He recommended she have a paracentesis and fluid sent for cytology. I ordered the paracentesis but again cannot find the correct order for cytology. Can you please pend? Let her know and lets arrange this for either [place] or [facility] As soon as able. Js Cruz DO [facility] 06-28-2024 History of Presen t illness Narrative Images from the original note were not included. Gynecologic Oncology [facility] - [facility] Follow up visit Date of service: 06/28/2024 PROBLEM/CC: Savana Patel presents for follow-up on ovarian cancer. HPI: Ms. 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 Last [facility] Visit: 05/11/2024 ONCOLOGY HISTORY: 1) 10/06/2018: Exploratory laparotomy, total abdominal hysterectomy, bilateral salpingooophorectomy, and bladder and posterior culdesac peritoneum resected en bloc, omentectomy 2) 11/11/2018 - 02/03/2019: PACLITAXEL 80 D1,8,15 CARBOPLATIN 6 D1 - Q21D s/p 4 cycles. *neutropenia/thrombocytopenia causing treatment delay. Neulasta OnPro added; switch to Q21D dosing of Taxol with cycles 5 & 6 02/23/2019 - 03/17/2019: PACLITAXEL 135 D1 CARBOPLATIN 6 D1 - Q21D s/p 2 cycles. 3) 06/30/2019 - 06/20/2021: olaparib (LYNPARZA) 150 mg tablet; 300 mg BID. 07/07/2022 POWER BARKER/ONC TUMOR BOARD Decontamination Technician/Onc Tumor Board Encounter Note Date of Tumor Board Presentation: 07/07/2022 Treating Physicians: Fang Cote MD Age: [age] year old Disease site: Ovary- High-grade serous adenocarcinoma Stage(at tumor board presentation)- Ovarian: Recurrent Care Path Discussion: No Clinical Trial Discussion: No If yes, what clinical trial should be considered? 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 [facility] Type of Tumor Board Review: Recurrence Attendance/Disciplines: POWER BARKER ONC, RAD ONC, Radiology, Pathology, and Genetics Management Options: - Consider treatment holiday - Consider doxil - Consider TTI-162 This abstract and interpretation of the conversation at tumor board has been completed by Rupa Mosquera MD. These are the general recommendations/discussion provided at tumor board conference. The definitive recommendations/discussion will be made by the primary health care team and patient after full discussion as appropriate. 5). Doxil, x6 cycles (12/17/2022- 05/10/2023) Decreased to 30mg/m2 with C3 due to PPE 6) 07/14/2023 Exploratory laparotomy, tumor debulking of abdominal lesion is less than 5 cm, right ureterolysis. Co-surgeon with Venancio for right hemicolectomy and anastomosis PATHOLOGY FINAL DIAGNOSIS A. 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 B. 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 C. 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 - Background small bowel with acute serositis, possibly procedure-related. - Appendix with fibrous obliteration. - Thirteen lymph nodes, negative for malignancy (0/13). D. Fascia, anterior abdominal wall, excision: - Fat necrosis with associated dystrophic calcification, negative for malignancy. Cytology Non-Decontamination Technician FINAL DIAGNOSIS A - PELVIC WASHING Positive for malignant cells. Adenocarcinoma, compatible with patient's known Mullerian primary; see comment Diagnosis Comment Tumor cells are scant and immunoreactive to PAX-8 and Claudin-4 (weak). They are negative for D2-40. The overall cytomorphology in combination with the immunoprofile, concurrent surgical pathology findings and clinico-imaging findings support the intepretation above. 09/22/2023 CT Chest IMPRESSION: No suspicious pulmonary nodules. No new thoracic lymphadenopathy. 09/22/2023 CT ABD/PEL IMPRESSION: 1. There is new mild right-sided hydronephrosis. There is some fat extending along the mid to distal ureter. There is an additional fat stranding in the right lower quadrant in the location of a previously described implant. Fat stranding and may be related to recent surgery, however the presence of small implants cannot be excluded. 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 Patient's laboratory accession # is [id number]. (View full doc under 05/02/19 telephone encounter) CARIS/ NEOGENOMICS: HISTORIES: PAST MEDICAL HISTORY Diagnosis Date Actinic keratosis 04/12/2007 Advance directive discussed with patient 08/24/2022 Discussed 08/2022: Up to date DEANDRE positive 07/25/2016 Rheum felt just Arthritis. 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) 07/13/2019 B[place]ON ANGIOMA///NEVUS, NON-NEOPLASTIC 02/18/2007 Constipation 04/04/2015 Dysmetabolic syndrome X 12/28/2007 Essential hypertension 04/04/2015 GERD without esophagitis 07/24/2020 Hemorrhage of gastrointestinal tract, unspecified History of left mastectomy 05/05/2018 Impaired fasting glucose 11/21/2007 Internal hemorrhoids without mention of complication Iron deficiency anemia due to chronic blood loss 09/02/2023 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 Leg cramps 01/08/2020 Living will on file 07/31/2021 DPA: Javier ( ) Malignant neoplasm of both ovaries (HCC) 10/26/2018 Mixed hyperlipidemia 04/04/2015 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 multiple joints 07/27/2016 Osteopenia 12/28/2012 Other acne 05/29/2008 Other seborrheic keratosis 02/18/2007 Panic attacks 07/18/2012 Primary insomnia 01/29/2022 S/P colectomy 08/06/2023 SOLAR LENGINES///DYSCHROMIA OTHER 02/18/2007 Thrombocytopenia (HCC) 01/29/2022 chronic Trigger ring finger of left hand 07/24/2020 Trigger ring finger of right hand 07/24/2020 PAST SURGICAL HISTORY Procedure Laterality Date BX BREAST PERC VACUUM/ROTN 10/26/2007 LEFT COLONOSCOPY FLX DX W/COLLJ SPEC WHEN PFRMD 07/20/2005 COLONOSCOPY FLX DX W/COLLJ SPEC WHEN PFRMD 05/01/2016 normal - 10 year follow up LAPAROSCOPIC HEMICOLECTOMY Right 06/2023 LIG/TRNSXJ FLP TUBE ABDL/VAG APPR UNI/BI Tubal ligation MAST RAD W/PECTORAL MUSCLES AXILLARY LYMPH NODES 11/2007 Left PAST SURGICAL HISTORY OF BACK SURGERY PAST SURGICAL HISTORY OF 10/06/2018 Exploratory laparotomy, total abdominal hysterectomy, bilateral salpingooophorectomy, and bladder and posterior culdesac peritoneum resected en bloc, omentectomy PLCMT LOCALZTN CLIP,PERC,DURING BREAST BX 10/26/2007 LEFT S PORT-A-CATH [id number] 11/09/2018 TONSILLECTOMY PRIMARY/SECONDARY <AGE 11 Tonsillectomy FAMILY HISTORY Problem Relation Age of Onset Ovarian cancer Mother dx 50s Arthritis Father Cancer Maternal Aunt 7 aunts with breast or ovarian cancer. details unknown Social History Tobacco Use Smoking status: Never Passive exposure: Never Smokeless tobacco: Never Vaping Use Vaping status: Never Used Substance Use Topics Alcohol use: No Drug use: No Marital Status: PAST GYNECOLOGIC HISTORY: OB History T0 L0 SAB0 IAB2 Ectopic0 Multiple0 Live Births0 LMP: No LMP recorded. Patient has had a hysterectomy. HEALTH MAINTENANCE: Last pap: 01/27/2016 negative Last mammogram: 07/04/2021, Breast MRI 12/31/21 - both normal Last colonoscopy: 05/07/2024 - Impression: - There was significant looping of the colon. - Suspected volvulus. - The distal rectum and anal verge are normal on retroflexion view. - No specimens collected. ALLERGIES Allergen Reactions Penicillins Rash Sulfa (Sulfonamide * Unknown ondansetron (ZOFRAN) 8 mg tablet Take 1 tablet by mouth every 8 hours as needed for nausea/vomiting. acetaminophen (TYLENOL) 500 mg tablet Take 2 tablets by mouth every 8 hours. docusate sodium (COLACE ORAL) Take 1 tablet by mouth once daily as needed. INTERVAL HISTORY: Savana Patel reports that she feels well. She presents today with her . Feels well. Discussed CT scans. After her chemotherapy treatment, she experiences a lot of burping. She also experiences some burning in her throat, and tries to relieve it with some water, however she states that it only helps temporarily. No significant changes to her weight. She states that she gets constipated after her chemo treatments, but utilizes Colace. Beginning with cycle #5 of chemotherapy in April 2024, her chemo has been changed to topotecan and bevacizumab given on day 1 and day 15 of a 4 week cycle. Doses of her chemo are noted in the synopsis. No shortness of breath, cough, or chest pain. No abdominal pain, nausea, vomiting, diarrhea, and patient reports constipation with chemo. No dysuria, gross hematuria, urinary frequency, urinary urgency, or incontinence. She denies having pain. Patient reports neuropathy in hands and feet. No fevers or chills. No swelling in extremities. No rashes, skin lesions, blisters or mouth sores. No headaches or vision changes. No tinnitus or changes in hearing. Her ECOG performance status is zero (fully active, able to carry on all pre-disease performance without restriction). GIGI Genao June 28, 2024 9:51 AM PHYSICAL EXAM: (Sensitive examination includes inspection and/or palpation of the breasts, pelvis, and anorectal regions) VITALS: BP 132/55 Pulse 70 Temp 37.5 C (99.5 F) Ht 163.8 cm (5' 4.5) Wt 56.2 kg (123 lb 14.4 oz) SpO2 100% BMI 20.94 kg/m GENERAL: Patient is a well developed, well nourished, no acute distress. Presenting with her . SKIN: Color, texture, turgor normal. No rashes or lesions. No jaundice. HEENT: Normocephalic, atraumatic, mucus membranes moist, and no lesions. NECK: Supple, no adenopathy; thyroid symmetric, normal size, no bruits. LUNGS: Respirations unlabored. Chest clear. HEART: Regular rate and rhythm. No murmer. No JVD. ABDOMEN: Nontender. No palpable masses. No hernia felt. No ascites apparent. PSYCHIATRIC: Alert, cooperative. Normal affect. Normal behavior. LYMPH NODES: No palpable enlarged nodes in neck or groin. NEURO: Normal sensory. Motor intact and symmetric. Gait normal. LOWER EXTREMITIES: Not tender. No ulcers or swelling. Veneer Sander for exam: Shelby Ann RN The sensitive examination was discussed with the Patient or Patient's Authorized Pss Delivery Professional. As applicable, any other physician, advance practice provider, medical student, or other health professional student that will be observing or involved in the sensitive examination for educational or training purposes was discussed with the Patient or Authorized Pss Delivery Professional. The Patient or Authorized Pss Delivery Professional has agreed to proceed with the sensitive examination. RESULTS: CA 125 (U/mL) Date Value 06/07/2024 1,626 05/09/2024 1,206 04/20/2024 1,255 03/29/2024 1,608 02/29/2024 4,551 01/24/2024 2,495 01/17/2024 1,616 12/27/2023 101 12/06/2023 22 11/12/2023 17 10/20/2023 41 09/23/2023 117 08/26/2023 49 07/30/2023 36 07/02/2023 16 05/07/2023 13 04/09/2023 11 03/12/2023 11 02/12/2023 11 01/14/2023 10 12/07/2022 10 11/23/2022 11 10/30/2022 11 10/09/2022 12 09/18/2022 15 08/28/2022 30 08/04/2022 181 07/20/2022 483 06/18/2022 125 04/13/2022 14 03/23/2022 12 02/24/2022 10 01/19/2022 10 12/23/2021 10 11/24/2021 11 10/27/2021 11 09/29/2021 10 09/01/2021 9 07/07/2021 8 06/09/2021 9 05/12/2021 8 04/14/2021 8 02/19/2021 9 12/09/2020 9 10/23/2020 9 09/27/2020 8 08/23/2020 8 07/26/2020 8 06/28/2020 8 03/28/2020 8 02/01/2020 8 01/01/2020 8 10/20/2019 8 09/22/2019 7 08/25/2019 8 07/28/2019 8 07/20/2019 8 07/14/2019 9 07/07/2019 8 06/20/2019 9 03/27/2019 7 09/12/2018 1,153 06/15/2024 CT CHEST W IVCON IMPRESSION: No CT evidence of acute abnormality. Right upper lobe posterior lateral peripheral reticulation and nodular densities. Left lower lobe tiny pulmonary nodule, continued attention on follow-up examination. RESULT: Limitations: None. Lines, tubes, and devices: None. Lung parenchyma and airways: Further slight improvement of the lateral RIGHT upper lobe subpleural reticulation and nodular densities. No concerning consolidation. No suspicious pulmonary nodule. Left lower lobe posterior 3 mm nodule on series 10 image 148, previously 2 mm on 01/24/2024. The central airways are patent. Pleural space: No pleural effusion. No pleural thickening. Lower neck, lymph nodes, and mediastinum: The imaged thyroid gland is normal. No lymphadenopathy in the supraclavicular, axillary, mediastinal, or hilar regions. Heart, pericardium, and thoracic vessels: The thoracic aorta and main pulmonary artery are normal in caliber. The cardiac chambers are normal in size. No coronary artery atherosclerotic calcifications are noted, although the study is not optimized for coronary assessment. No pericardial effusion or thickening. Bones and soft tissues: No destructive bone lesion. Chest wall is unremarkable. Upper abdomen: Same day CT abdomen pelvis reported separately. Localizer images: No additional findings. 06/15/2024 CT ABD/PEL IMPRESSION: Interval further increase in abdominal ascites. RESULT: Liver: No mass. Normal hepatic morphology. Biliary: No bile duct dilation. Gallbladder is unremarkable. Spleen: No mass. Posterior small splenule. No splenomegaly. Pancreas: No mass or duct dilation. Adrenals: No mass. Kidneys: Bilateral renal hypodensities, too small to fully assess but likely benign. GI tract: No dilation or wall thickening. Status post prior bowel resection with surgical suture line in the RIGHT lower quadrant without suspicious nodularity or mass. Lymph nodes: No abdominal or pelvic lymphadenopathy. Mesentery/Peritoneum: Slightly increased moderate ascites. No mass. Stable mesenteric nodule, measured 4 mm on series 8 image 79, previously 4 mm. Retroperitoneum: No mass. Vasculature: - Abdominal aorta and iliac arteries: Atherosclerotic calcifications without aneurysm. - Celiac and SMA: Patent without stenosis. - Portal venous system (SMV, splenic vein, portal vein and branches): Patent. - Hepatic veins: Patent. Pelvis: No mass or fluid collection. Bones/Soft Tissues: Moderate degenerative disease in thoracolumbar spine. No aggressive or concerning osseous lesions. Lower thorax: A chest CT performed will be reported separately. Localizer images: No additional findings. ASSESSMENT & PLAN: 09/10/2020 - Dr. 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 Interval testing since last visit discussed, CA125 reviewed and within normal limits. Patient is up-to-date with health maintenance including mammogram, colonoscopy and advanced directives. Reviewed issues of survivorship including sexual health after cancer treatment, mental health and support systems. Importance of cancer surveillance and early detection of recurrence reinforced. 10/28/2020- Heather Lutz NP (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 Advised her value is stable. Last CT scan was in March 2020. Will order CT of the chest abdomen and pelvis for reevaluation while on PARPi therapy. Patient would like to establish with Dr. Cote, will move her appointment with me from 12/[address] Dawson on 12/[address] scans the week before. Continue monthly labs while on PARPi therapy Patient verbalized an understanding and agreed with the plan. Instructed to call if she has any questions or concerns. 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 Patient expressed concern about receiving the COVID vaccine while taking Olaparib. I advised the patient to continue with the COVID vaccine and discussed findings that supported my recommendation with her. Patient is receptive to recommendation. I answered all of the patient's and patient's 's questions and addressed their concerns. Plan to RTC in March [address] before and in June 2021. Continue with monthly CBC, and CA 125 prior to office visit with me in [place]. Patient verbalized an understanding and agreed with the plan. 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 I reviewed the most recent CT results with the patient which showed no acute pathology, no suspicious pulmonary nodules, no thoracic lymphadenopathy in the chest, and no acute pathology, and no mass or lymphadenopathy in the abdomen and pelvis. Ms. Patel received the 2nd COVID vaccine in January, and reports experiencing hot flashes since that time. I believe that this might be due to the Lynparza. Ms. Patel also complains of leg cramps that onset at night. I recommend taking multivitamins daily, as well as eating a diet rich in Potassium. Ms. Patel will continue taking Lynparza until the last day in May. Plan to RTC on June 25, [address], CBC, and CA [address] results show no new evidence of disease, we will discuss stopping her PARP. We will discuss the cancer surveillance timeline at the next visit. 07/04/2021 Stop lynparza. Ok to stop protonix in 2-3 weeks after stopping lynparza. I recommend leaving [place] for one year. Discuss in one year. Discussed no scans needed unless concerning s/s of recurrence. CA 125 prior to each office visit. 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 Discussed she may have some improvement but hard to say at this point. Recommend KN95 with omicron variant. Discussed covid testing guidelines. Follow up in 3 months 10/01/2021 Impression: History of Ovarian Cancer, most recently had completed Olaparib . CA 125 is 10, stable, but she is worried because it has increased by 1 point. Discussed the significance of small changes in CA 125 and anxiety which often accompany's this. Plan: CA 125 and clinical examination in December. Vulvar dryness and itching. Will prescribe Lotrisone cream. Said she had this in past and it helped her. She will call office if symptoms of itching, and dryness don't resolve in the next couple of weeks. 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 CA 125 is stable. Some bladder symptoms at times. Intermittent. Discussed pelvic floor PT. Will trial melatonin for insomnia and some assistance with constipation. BMD ordered for osteopenia screening. 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 No clinical evidence of disease. She has been off her PARP for approximately 9 months. Repeat CA 125 in 3 months. If CA 125 value is >15, (the roberto value,) will check CT scan as well. Reviewed signs and symptoms of recurrence and told to call with persisting concerns. Follow up in clinic in June for continued surveillance. 04/22/2022 She is feeling a bit better. I reviewed the recent labs she had. Nothing actionable. No clinical evidence of diverticulitis or UTI. She has had a flu shot. I advise getting the covid bivalent booster. CA 125 again in June a couple days before she sees me. She is in agreement with these plans. 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 Recently her CA 125 has jumped from 14 (04/13/22) to 125 (06/18/22). PLAN CT Chest & Abd/Pel to be done in [place] early next week. Contact clinic if CT is scheduled for later than Wednesday to reschedule virtual visit. Follow up Wednesday07/01/22 to review results of CT scan and discuss her care plan. 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 Would be considered [place] sensitive. Cancer appears to be involving distal ileum, and possibly sigmoid colon and right psoas. There may be sub-centimeter lesions elsewhere in the abdominal cavity. These findings were reviewed in detail with . Options for management include secondary debulking, possibly with HIPEC, followed with chemotherapy vs chemotherapy alone. To better assess whether secondary debulking would be appropriate, a pelvic MRI will be checked with focus on the possible involvement of the psoas muscle and surrounding blood vessels. If secondary debulking not advised, a CT guided biopsy of the recurrence will be considered as this sample can be sent for somatic tumor testing which can guide future treatment decisions. PLAN Review her case at the next Decontamination Technician/Onc Tumor Conference. MRI to be done in [facility] for later this week. Follow up Wednesday07/08/22 to review Tumor Board discussion and MRI results. We will confirm the care plan at this time. 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 Her case was discussed in Tumor Board on 07/07/22. 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 If Bevacizumab is started, beginning with cycle number 3 of chemotherapy, consider single agent Bevacizumab following several cycles of carboplatin, Paclitaxel, and Bevacizumab Side effects of treatment plan reviewed, questions answered to patient's satisfaction. She is agreeable with this plan. Symptoms concerning for worsening disease reviewed. Instructed to contact this clinic if she has any questions. PLAN She wishes to receive her chemotherapy in [place] with Dr.Paul Eve DO. A copy of this note will be forwarded to him today. I will reach out to to fascilitate an appointment [phone] Follow up with me at the [facility] 2 weeks after her second cycle of chemotherapy, with a CT prior to that appointment. Will decide if Bevacizumab should be added at this time. 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 She is s/p cycle two of chemotherapy with Carboplatin and Paclitaxel. No unexpected toxicity. Improvement of disease burden on CT Discussed potential addition of Bevacizumab to current chemotherapy plan. Given indication of persistent tethering of cancer to right colon on CT, Bevacizumab is not iadvised at this time. PLAN Continue chemotherapy with carbo/taxol under 's supervision. Repeat CT after cycle 6, will place order for this. Follow up in this office after cycle 6, to review the CT and discuss maintenance therapy options. 08/31/22 Telephone Call with Corinne Santana RN Spoke with pt who reports that she was given chemo today at [facility] and was accidentally given michael along with her carbo/taxol which she was not supposed to receive per her OV with Eve on 08/28. Pt is still very anxious r/t the error and is calling to be certain the [facility] is aware of the situation. Pt is questioning whether she should expect her bowel to perforate due to this mistake. Explained that this is a known but relatively rare side effect. There is no certainty it will or will not happen. Reviewed S&S of acute abd that would require immediate medical attention. Ensured that pt has on-call employee relations consultant phone number. Pt states she was also given the on-call onc number at [facility]. Also explained that the med error will be reported and go through the proper channels to ensure proper review. Pt remains anxious and requests to speak directly to [facility]. Pt was offered a televisit on 09/02 at 0900 which she accepted. The appt will be scheduled. Pt is appreciative of conversation and information discussed. 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 She is s/p cycle three of chemotherapy with Carboplatin and Paclitaxel. Bevacizumab was given with cycle 3, which was not planned based on CT findings). Presently no concerning symptoms related to bevacizmab administration. Explained that bevacizumab is an approriate agent in her type of cancer, and though not planned to have been given, holding this agent prior to last cycle of chemotherapy was a judgement call. We reviewed serious but uncommon side effect of bowel perforation or peritonitis. Reviewed other side effects of bevacizumab. Reviewed alternative names of bevacizumab including the version she received, Zirabev. Addressed her anxiety surrounding the unplanned dose of bevacizumb given. PLAN Repeat CT after cycle 4 of chemotherapy (taxol and carboplatin) Will readdress potential role for bevacizumab in treatment upon review of future scans Follow up as planned in the office to discuss scans & care plan. 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 Most recent CT imaging showing stable disease burden. 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 Discussed option of continuing with current therapy with understanding that future chemotherapy will not likely result in significant reduction in tumor burden, but stable disease for some time is possible, though with high chance of worsening chemotherapy associated toxicity.. Other treatment options discussed included chemo holiday vs clinical trial vs potential surgery. PLAN Will aim to present ' case at Tumor Board at next available presentation. Follow up via telephone visit to discuss Tumor Board's recommendations & determine her care plan. Ok to go for eye exam Order placed for urine culture to be completed at [facility]. Signs and symptoms of worsening disease reviewed. Contact this office with any questions or concerns prior to that appointment. 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 Chemo toxicity reported; grade 2 neuropathy in hands, fatigue also reported. Post-treatment CT imaging showed stable disease burden, CA 125 stable. Discussed results of Decontamination Technician/Onc Tumor Board. Recommendation is continued chemotherapy with Doxil, single agent, 40 mg/m2 IV every 4 weeks. No growth factor with cycle 1, reassess need for growth factor pending marrow toxicity. Benefits, risks, side effects, and treatment schedule of Doxil discussed. Total number of cycles required cannot be determined at this time, plan for at least 6. Questions answered to patient's satisfaction. PLAN She wishes to receive her chemotherapy under the direction of ; a copy of this note will be shared with him. CT scans to be repeated following 3 treatments. Return to clinic following cycle 3 to review her imaging results and discuss her treatment. Contact this office with any questions or concerns prior to then. 03/09/2023 Recurrent fallopian tube carcinoma. Germline BRCA2 mutation. Last koyuk based regimen completed October 2022. Presently on doxil. Dose reduced to 30 mg/m2 for cycle 3 due to PPE. Following 3 cycles of treatment, disease remains stable. She is tolerateing Doxil better than carbo and taxol. Manageable PPE and mucocitis of the mouth. PLAN Repeat CT scan prior to cycle #7 at current dose of Doxil. I provided information regarding chilling of her hands the day before, of and after Doxil treatment. She is also using medicated mouthwash to prevent mouth sores. Regarding perineum advised her to apply Vaseline and may also use small amount of steroid ointment if Vaseline is not sufficient. I will see her in May to review CT scan prior to receiving cycle of treatment. 07/02/2023 Recurrent fallopian tube carcinoma. Germline BRCA2 mutation. Recent cecal volvulus. Last koyuk based regimen completed October 2022. Last chemo with doxil was several weeks ago. CBC ok for treatment. Patient scheduled for a laparotomy, removal of right colon, possible ileostomy, removal of other areas of cancer seen in the abdomen and pelvis on 07/14/2023. Consent signed in clinic today. EKG earlier today normal. Briefly reviewed pre-operative instructions and post-operative restrictions. Instructed to stop PO intake on the 23rd after midnight. Informed patient she will receive further details during pre-op visit with a nurse and by anesthesiology. Answered patient's questions. 08/13/2023 Recurrent fallopian tube cancer with recent surgery to resect a cecal volvulus associated with her cancer. Last doxil received 04/2023, her cancer is considered to have progressed on doxil and likely koyuk refractory. Given pathology results, she will need additional chemotherapy. We will evaluate her for a clincal trial and if not eligible will consider other standard agents. Ordering FOLR1 testing on tumor; informed patient of drug used if FOLR1 positive. If FOLR1 negative, consider pembrolizumab, oral cytoxan and bevacizumab. Options: Barring participation on a clinical trial, she would like to resume chemo closer to home as she has been doing. I will review results and treatment options over video virtual visit in a couple weeks. Advised stopping Colace for a couple of days, can resume if starts experiencing constipation. Can try OTC nystatin for vaginal pruritus. 12/09/2023 Recurrent fallopian tube cancer, FOLR1 positive, s/p cycle 4 of mirvetuximab under direction of Hem/Onc Dr. Cruz. Grade 1 neuropathy, heading to grade 2. Most troublesome toxicity has been that of her eyes. Reviewed length of treatment based on toxicity to treatment and disease status. Answered patient's questions. I have advised Ms Patel discuss reducing dose to 5 mg/kg/dose and/or extending the interval between treatment with Dr. Cruz. CA 125 slightly higher than last value 3 weeks ago. No evidence of worsening disease per CT abd/pel and exam today. CT chest report not released yet, advised her to have Dr. Cruz review these results with her once posted. I recommend a repeat CT scan [address] scan. Return to see me in early April, shortly after CT. 05/11/2024 Progression of disease while on mirvetuximab soravtansine based on rapid rise in CA 125 and new ascites on CT 01/24/24. Dr Cruz discussed the finding with Ms Patel and decision was made to change therapy to topotecan and bevacizumab. Topotecan day 1 and 8 (3 mg/M2) , michael day 1 (10 mg/kg) She has completed 5 cycles of therapy (last given 05/10/2021). CA 125 has decreased from 4552 (2 mo ago) to 1206. Last CT was done prior to cycle 3 of topotecan and bevacizumab. No measurable tumors are apparent. Ascites only. Advise CT a couple weeks after cycle 6 (approx late May) If ascites is not improving, consider a paracentesis to check for malignant cells. I would like to see her in late May/early June.for in person cancer assessment. 06/28/2024 Recurrent fallopian tube cancer with current regimen being topotecan and bevacizumab. Completed 6 cycles of therapy. Ca 125 remains elevated over the last 3 months. Early satiety and reflux. Ascites does not appear to be responding to treatment well. Advised CT scan following cycle #8 of chemotherapy. Would advise a paracentesis done in the next week or 2. Fluid can be sent for cytology. If her symptoms improve with paracentesis and there is not rapid accumulation of fluid, can remain on current chemotherapy with assessment on CT scan after cycles #8. Possible benefit of an abdominal PleurX catheter was discussed in todays visit. These impressions will be discussed with Dr Cruz, her treating medical oncologist. I spent a total of 30 minutes on the date of the service which included preparing to see the patient, [id number] patient care, completing clinical documentation, obtaining and/or reviewing separately obtained history, performing a medically appropriate examination, counseling and educating the patient/family/caregiver, communicating with other HCPs (not separately reported), independently interpreting results (not separately reported), communicating results to the patient/family/caregiver, and care coordination (not separately reported). Documentation from notes of previous visit of 05/11/2024 was copied and pasted, documentation has been reviewed and edited as necessary and is current for today. ATTESTATION Scribe Attestation: By signing my name below, I, Carine Pichardo, attest that this documentation has been prepared under the direction and in the presence of Fang Cote MD. Electronically Signed: Chasity Betancourt. June 28, 2024 11:30 AM. Provider Attestation: I, Dr. Fang Cote, personally performed the services described in this documentation. All medical record entries made by the scribe were at my direction and in my presence. I have reviewed the chart and discharge instructions (if applicable) and agree that the record reflects my personal performance and is accurate and complete. Electronically Signed: Fang Cote MD. July 15, 2024 4:21 PM documented in this encounter [facility] 06-22-2024 Miscellaneous Notes Patient notified. Beatrice Chu LPN Attempted to contact patient, line busy. Beatrice Chu LPN It showed a mild increase in fluid in the abdomen but no other obvious sign of progression of the cancer. CA125 overall has been stable so I recommend continuing current therapy for now. Keep appointment with Dr. Sweeney on the . Js Cruz DO Patient requesting 06/15 CT results documented in this encounter [facility] 06-22-2024 Telephone encounter Note Patient notified. Beatrice Chu LPN [facility] 06-22-2024 Telephone encounter Note Attempted to contact patient, derek jama. Beatrice Chu LPN [facility] 06-22-2024 Telephone encounter Note It showed a mild increase in fluid in the abdomen but no other obvious sign of progression of the cancer. CA125 overall has been stable so I recommend continuing current therapy for now. Keep appointment with Dr. Sweeney on the . Js Cruz DO [facility] 06-22-2024 Telephone encounter Note Patient requesting 06/[address] [facility] Work Phone: 06-15-2024 History of Presen t illness Narrative Radiology Service Progress Note PATIENT NAME: Savana Patel DATE OF SERVICE: June 15, 2024 TIME: 12:31 PM PATIENT IDENTITY VERIFICATION COMPLETED USING TWO (2) IDENTIFIERS: Name and Date of confirmed by patient verbally. FALL SCREENING: Has the patient had 2 falls in the last year or 1 fall with injury or currently using an Ambulatory Assistive Device (Walker, Cane, Wheelchair, Crutches, etc.)? No PATIENT GENDER DATA: Female. status: : No status: NO. PATIENT RELEVANT IMPLANT DATA REVIEWED: Yes PATIENT PRESENTS WITH AN IMPLANTABLE OR ATTACHED FRETTED STRING INSTRUMENT REPAIRER: No RADIOLOGY DEPARTMENT: CT; Exam(s) Completed: Chest Abdomen Pelvis PERIPHERAL IV DATA: power port accessed by Xierkang SIGNED BY: RT Laurie(R) June 15, 2024 12:31 PM documented in this encounter [facility] 06-07-2024 History of Presen t illness Narrative Chief Complaint Patient presents with: Established Patient HPI: Savana Patel is a 74 year old female who presents here today for evaluation for treatment tomorrow. Per Dr. 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 Initially underwent pelvic ultrasound on 09/01/2018. Uterus appeared normal. The endometrial stripe was 2.3 mm. Right and left ovaries appeared normal. However there was a large amount of free fluid in the pelvic cul-de-sac. CT A/P 09/08/2018: Liver: No mass. Homogeneous texture. Biliary: No ductal dilatation is seen. Gallbladder is unremarkable. Spleen: Spleen is unremarkable. Pancreas: No mass or duct dilation. Adrenals: Adrenal glands are unremarkable. Kidneys: No mass, calculus or hydronephrosis is seen. GI tract: No bowel dilatation is seen. No evidence of obstruction. Lymph nodes: No evidence of adenopathy. Mesentery/Peritoneum: There is increased soft tissue density best seen in the coronal views extending from the lower abdomen into the pelvic area. This could represent peritoneal involvement with tumor. This is seen on coronal image 37 and axial images 99 through 122. It extends across the anterior aspect of the pelvic area seen on axial image 124. Vasculature: No evidence of dilatation of the abdominal aorta. CT PELVIS: Pelvis: There is a large amount of free fluid or loculated fluid in the pelvis suggesting that there could be an enhancing rim surrounding this fluid is seen on image 127 and measures 10.6 x 6.1 cm. Bones/Soft Tissues: No significant findings identified. Lower thorax: Unremarkable. CA125 was 1153 U/mL. Had employee relations consultant onc evaluation and CT chest unremarkable. Underwent exploratory laparotomy, optimal tumor bulking, total abdominal hysterectomy, bilateral salpingo-oophorectomy, resection of bladder cul-de-sac and pelvic peritoneal disease along with resection of omental caking with super colic omentectomy on 10/06/2018. Pathology: FINAL DIAGNOSIS 1. 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 2. 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 3. Uterus, cervix, bilateral ovaries and fallopian tubes, and bladder/pelvic peritoneum, hysterectomy and excision (C) Left fallopian tube - High grade serous carcinoma (see comment and synoptic report). Right fallopian tube - Positive for involvement by high grade serous carcinoma. Bilateral ovaries - Positive for involvement by high grade serous carcinoma. Uterine serosa - Positive for involvement by high grade serous carcinoma. Bladder/pelvic peritoneum - Positive for involvement by high grade serous carcinoma. Endometrium - Inactive endometrium. Myometrium - Negative for malignancy. Cervix - Negative for malignancy. SYNOPTIC REPORT OF BRAUN PATHOLOGIC FINDINGS UTERUS, CERVIX, BILATERAL TUBES AND OVARIES, BLADDER, AND PELVIC PERITONEUM: Procedure: Total hysterectomy and bilateral salpingo-oophorectomy Omentectomy Peritoneal biopsies Specimen Integrity: Left fallopian tube serosa intact Primary Tumor Site: Left fallopian tube Ovarian Surface Involvement: Present Specify laterality (if applicable): Bilateral Fallopian Tube Surface Involvement: Present Specify laterality (if applicable): Bilateral Tumor Size: Greatest dimension: 1.6 cm Histologic Type: Serous carcinoma Histologic Grade: Not applicable Two-tier grading System: High grade Implants: Not applicable/not sampled Involvement of other tissues/organs: Right ovary Left ovary Right fallopian tube Pelvic peritoneum Omentum Other organs/tissues (specify): Uterine serosa Largest extrapelvic peritoneal focus, macroscopic (greater than 2 cm) Peritoneal Ascitic Fluid, Not submitted/unknown Treatment Effect: No known presurgical therapy Regional Lymph Nodes: No nodes submitted or found Pathologic Stage Classification (pTNM, AJCC 8th ed) TNM Descriptors: Not applicable Primary Tumor (pT): pT3c: Macroscopic peritoneal metastasis beyond pelvis more than 2 cm in greatest dimension with or without metastasis to the retroperitoneal lymph nodes (includes extension to capsule of liver and spleen without parenchymal involvement of either organ) Regional Lymph Nodes (pN): pNX: Cannot be assessed Distant Metastasis (pM): Not applicable/Not confirmed pathologically in this case Previous therapy: 1) 11/11/2018 - 02/03/2019: PACLITAXEL 80 D1,8,15 CARBOPLATIN 6 D1 - Q21D s/p 4 cycles. *neutropenia/thrombocytopenia causing treatment delay. Neulasta OnPro added; switch to Q21D dosing of Taxol with cycles 5 & 6 02/23/2019 - 03/17/2019: PACLITAXEL 135 D1 CARBOPLATIN 6 D1 - Q21D s/p 2 cycles. 2) 06/30/2019 - 06/20/2021: olaparib (LYNPARZA) 150 mg tablet; 300 mg BID. CTs 06/29/2022: Mesentery/Peritoneum: * New 0.4 cm anterior mesenteric fat nodule (8:57) * Confluent infiltrative soft tissue in RIGHT false pelvis surrounding the terminal ileum and ascending colon (cecum deep in pelvis) and probably affecting the sigmoid colon; difficult to precisely measure as it envelops bowel but including bowel measures approximately 4.5 x 2.9 cm (8:101); process extends to the RIGHT psoas muscle * Several small subtle anterior mesenteric fat nodules * No free abdominal fluid MRI pelvis 07/02/2022: Similar imaging findings since CT 06/29/2022, redemonstrating pelvic peritoneal/serosal carcinomatosis involving segments of bowel predominantly in the right anterior pelvis, with confluent soft tissue encasing the proximal ascending colon and causing relative upstream dilation of the low-lying cecum suggesting developing colonic obstruction. No small bowel dilation. No pelvic lymphadenopathy. 3) Carboplatin/paclitaxel x6 cycles. Completed 11/02/2022. Stable disease. 4) Doxil tolerated very well. PD 05/27/2023. 5) Elahere. PD. CTs 05/27/2023 demonstrated progression of disease with an increase in size of irregular soft tissue density in the right pelvis as well as increasing thickening of the wall of the cecum. Presented to the ED at [facility] about a week later. CT scan demonstrated possible cecal volvulus. She was transferred to [facility]. Managed nonsurgically with NG decompression. NG was removed on her second hospital day and her diet was advanced to clear liquids and then the following day advance to full liquids then to gastrointestinal soft diet on day 3. She was discharged home with plans for outpatient follow-up and colectomy with possible cytoreduction. Underwent open right hemicolectomy on 07/14/2023. Initially Dr. Dawson performed laparotomy and excised several lower pelvic lesions. Dr. Jes maldonado performed the right hemicolectomy. He observed kinking of the cecum, proximal ascending colon and some of the distal ileum coming together causing narrowing of the pedicle around which the colon was volvulized. Pathology: FINAL DIAGNOSIS A. 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 B. 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 C. 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 - Background small bowel with acute serositis, possibly procedure-related. - Appendix with fibrous obliteration. - Thirteen lymph nodes, negative for malignancy (0/). D. Fascia, anterior abdominal wall, excision: - Fat necrosis with associated dystrophic calcification, negative for malignancy. Current therapy: 1) Topotecan with bevacizumab. No new concerns today. Pt. here today with family member. Appetite:Good. Energy level:Pretty good. It down after treatment. Denies fevers. Mouth:denies sores Resp:denies cough or sob Cardiac:denies chest pain/palpitations GI:denies abd pain, n/v, occ. constipation :denies dysuria/hematuria Extrem:denies pain Neuro:+neuropathy to fingers/toes-stable Skin:denies rashes Heme:denies bleeding The ROS is otherwise negative. Past medical history, appointments, medications, allergies reviewed. No changes. EXAM: BP 151/79 Pulse 62 Temp 37.1 C (98.8 F) Wt 56.2 kg (123 lb 12.8 oz) SpO2 99% BMI 20.88 kg/m APPEARANCE Well appearing, alert, in no acute distress, well-hydrated, well nourished. HEART RRR with normal S1 and S2, no murmurs LUNG clear to auscultation LYMPH NODES No cervical lymphadenopathy, No supraclavicular lymphadenopathy, and No axillary lymphadenopathy. ABDOMEN bowel sounds normoactive, soft, non-tender EXTREMITIES No edema NEURO Awake, alert and oriented x 3, Normal gait, and No involuntary motions. SKIN Skin color, texture, turgor normal, no suspicious rashes or lesions LABS: Latest Ref Rng 05/03/2024 05/09/2024 05/25/2024 06/07/2024 WBC 3.70 - 11.00 k/uL 3.30 (L) 3.78 4.83 3.95 RBC 3.90 - 5.20 m/uL 3.34 (L) 3.53 (L) 3.39 (L) 3.48 (L) Hemoglobin 11.5 - 15.5 g/dL 8.9 (L) 9.4 (L) 9.0 (L) 9.2 (L) Hematocrit 36.0 - 46.0 % 28.5 (L) 30.4 (L) 29.1 (L) 29.8 (L) MCV 80.0 - 100.0 fL 85.3 86.1 85.8 85.6 MCH 26.0 - 34.0 pg 26.6 26.6 26.5 26.4 MCHC 30.5 - 36.0 g/dL 31.2 30.9 30.9 30.9 RDW-CV 11.5 - 15.0 % 18.0 (H) 18.7 (H) 18.4 (H) 17.5 (H) Platelet Count 150 - 400 k/uL 77 (L) 151 163 135 (L) MPV 9.0 - 12.7 fL 9.4 10.5 10.9 10.2 Neut% % 55.8 57.6 62.7 64.2 Abs Neut (ANC) 1.45 - 7.50 k/uL 1.84 2.18 3.03 2.54 Lymph% % 34.2 28.8 25.7 24.6 Abs Lymph 1.00 - 4.00 k/uL 1.13 1.09 1.24 0.97 (L) [place]% % 8.5 12.2 10.6 9.4 Abs [place] <0.87 k/uL 0.28 0.46 0.51 0.37 Eosin% % 0.6 0.8 0.6 1.0 Abs Eosin <0.46 k/uL <0.03 0.03 0.03 0.04 Baso% % 0.6 0.3 0.4 0.5 Abs Baso <0.11 k/uL <0.03 <0.03 <0.03 <0.03 Immature Gran % % 0.3 0.3 0.0 0.3 IMMATURE GRANS (ABS) <0.10 k/uL <0.03 <0.03 <0.03 <0.03 NRBC /100 WBC 0.0 0.0 0.0 0.0 Absolute nRBC <0.01 k/uL <0.01 <0.01 <0.01 <0.01 DTYPE Auto Auto Auto Auto CMP/CA125: Pending ASSESSMENT/PLAN: 1. Malignant neoplasm of both ovaries (HCC) - ICD9: 183.0, ICD10: C56.3 (primary diagnosis) 2. Carcinomatosis (HCC) - ICD9: 199.0, ICD10: C80.[address] Cruz's previous note Assessment: -KPS is 90% (due to recent surgery). -BRCA2 mutation (tested 04/2019). -Baseline CA125 1153 U/mL. -s/p right hemicolectomy with some tumor sampling/debulking. -FOLR1 IHC results--100% of cells stained +2-3+4 -Blood pressure under good control--home SBP lower. -Tolerating topotecan with bevacizumab very well. -UA trace proteinuria. -Mild anemia. -Reviewed CT images with her. Increase in ascites but this remains asymptomatic. CA125 can go up initially with new therapy resolution of small nodular abnormalities in the lungs. Overall stable disease. Plan: -Okay for cycle #3 topotecan and bevacizumab tomorrow. -Monitor CA125 each cycle. -CTs following 4 cycles. - Overall tolerating treatment well. - Reviewed CBC with pt. - CMP/CA125 pending. - Monitor CA125. - Follow up with [facility]/Onc. - Increase water intake/colace. - CT chest/abd/pelvis soon. - Proceed as scheduled tomorrow for Topotecan/bevacizumab pending all labs. - Follow up as scheduled otherwise. - Pt. aware to call office with any questions/concerns. The patient indicates understanding of these issues and agrees with the plan. All documentation from previous visit of 03/29/24-Dr. Cruz was copied and pasted, documentation has been reviewed and edited as necessary for today's visit. Kasi Welch APRN.REGIONAL WILDLIFE AGENT documented in this encounter [facility] 06-07-2024 History of Presen t illness Narrative Patient is here for IVAD port flush/blood draw. IVAD is located in right upper chest. Site cleansed with Chloraprep IVAD accessed with a #20 gauge 3/4 non-coring Gripper needle Flush with 5cc's Normal Saline. Blood Return: Good. 10 cc's blood aspirated and discarded. Blood drawn for CBC and CMP. Flushed with: 20 ml Normal Saline. Non-coring needle removed. Paper tape applied to puncture site. Site negative for redness, edema or tenderness. Patient tolerated procedure well. Lilia Stevens RN documented in this encounter [facility] 06-01-2024 Telephone encounter Note Patient calling to schedule Follow up visit with Dr. Cote. Patient schedule for 06/28/24. [facility] 06-01-2024 Miscellaneous Notes Patient calling to schedule Follow up visit with Dr. Cote. Patient schedule for 06/28/24. Called pt as MC msg has not been read from 05/22. No answer. LVM for pt to call back the office regarding scheduling a f/u. documented in this encounter [facility] 06-01-2024 Telephone encounter Note Called pt as MC msg has not been read from 05/22. No answer. LVM for pt to call back the office regarding scheduling a f/u. [facility] 05-16-2024 Telephone encounter Note Spoke with patient, advised below. Patient stated understanding. Schedule adjusted as directed. Jayla Monroy [facility] 05-16-2024 Miscellaneous Notes Spoke with patient, advised below. Patient stated understanding. Schedule adjusted as directed. Jayla Monroy Per Dr. Cruz, patient is going to a D1, D15 Q28 day schedule. Please let patient know and cancel treatment for tomorrow. Please update schedule. Per Dr. Cruz, patient does not need labs tomorrow. Thank you. Doreen Jerome RN documented in this encounter [facility] 05-16-2024 Telephone encounter Note Per Dr. Cruz, patient is going to a D1, D15 Q28 day schedule. Please let patient know and cancel treatment for tomorrow. Please update schedule. Per Dr. Cruz, patient does not need labs tomorrow. Thank you. Doreen Jerome RN [facility] 05-12-2024 History of Presen t illness Narrative Scan on 05/12/2024 11:33 AM by Provider, CITLALY Banerjee: Consultation - Ophthalmology documented in this encounter [facility] 05-11-2024 History of Presen t illness Narrative Images from the original note were not included. VIRTUAL VISIT PROGRESS NOTE This is a virtual visit. It required patient-provider interaction for the medical decision making as documented below. Gynecologic Oncology Virtual Visit Follow up visit Date of service: 05/11/2024 Persons Present: patient CC: Savana Cortes Sykess presents via telephone call to review CT scans following ovarian cancer. 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 Last Office Visit: 12/09/2023 Last [facility] Visit: 09/02/2023 ONCOLOGY HISTORY 1) 10/06/2018: Exploratory laparotomy, total abdominal hysterectomy, bilateral salpingooophorectomy, and bladder and posterior culdesac peritoneum resected en bloc, omentectomy 2) 11/11/2018 - 02/03/2019: PACLITAXEL 80 D1,8,15 CARBOPLATIN 6 D1 - Q21D s/p 4 cycles. *neutropenia/thrombocytopenia causing treatment delay. Neulasta OnPro added; switch to Q21D dosing of Taxol with cycles 5 & 6 02/23/2019 - 03/17/2019: PACLITAXEL 135 D1 CARBOPLATIN 6 D1 - Q21D s/p 2 cycles. 3) 06/30/2019 - 06/20/2021: olaparib (LYNPARZA) 150 mg tablet; 300 mg BID. 07/07/2022 [facility]/ONC TUMOR BOARD Decontamination Technician/Onc Tumor Board Encounter Note Date of Tumor Board Presentation: 07/07/2022 Treating Physicians: Fang Cote MD Age: [age] year old Disease site: Ovary- High-grade serous adenocarcinoma Stage(at tumor board presentation)- Ovarian: Recurrent Care Path Discussion: No Clinical Trial Discussion: No If yes, what clinical trial should be considered? 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 GOG 3049 Type of Tumor Board Review: Recurrence Attendance/Disciplines: [facility] ONC, RAD ONC, Radiology, Pathology, and Genetics Management Options: - Consider treatment holiday - Consider doxil - Consider TTI-162 This abstract and interpretation of the conversation at tumor board has been completed by Rupa Mosquera MD. These are the general recommendations/discussion provided at tumor board conference. The definitive recommendations/discussion will be made by the primary health care team and patient after full discussion as appropriate. 5). Doxil, x6 cycles (12/17/2022- 05/10/2023) Decreased to 30mg/m2 with C3 due to PPE 6) 07/14/2023 Exploratory laparotomy, tumor debulking of abdominal lesion is less than 5 cm, right ureterolysis. Co-surgeon with Venancio for right hemicolectomy and anastomosis PATHOLOGY FINAL DIAGNOSIS A. 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 B. 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 C. 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 - Background small bowel with acute serositis, possibly procedure-related. - Appendix with fibrous obliteration. - Thirteen lymph nodes, negative for malignancy (0/13). D. Fascia, anterior abdominal wall, excision: - Fat necrosis with associated dystrophic calcification, negative for malignancy. Cytology Non-Decontamination Technician FINAL DIAGNOSIS A - PELVIC WASHING Positive for malignant cells. Adenocarcinoma, compatible with patient's known Mullerian primary; see comment Diagnosis Comment Tumor cells are scant and immunoreactive to PAX-8 and Claudin-4 (weak). They are negative for D2-40. The overall cytomorphology in combination with the immunoprofile, concurrent surgical pathology findings and clinico-imaging findings support the intepretation above. 09/22/2023 CT Chest IMPRESSION: No suspicious pulmonary nodules. No new thoracic lymphadenopathy. 09/22/2023 CT ABD/PEL IMPRESSION: 1. There is new mild right-sided hydronephrosis. There is some fat extending along the mid to distal ureter. There is an additional fat stranding in the right lower quadrant in the location of a previously described implant. Fat stranding and may be related to recent surgery, however the presence of small implants cannot be excluded. 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 Patient's laboratory accession # is [id number]. (View full doc under 05/02/19 telephone encounter) CARIS/ NEOGENOMICS: HISTORIES: PAST MEDICAL HISTORY Diagnosis Date Actinic keratosis 04/12/2007 Advance directive discussed with patient 08/24/2022 Discussed 08/2022: Up to date DEANDRE positive 07/25/2016 Rheum felt just Arthritis. 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, NON-NEOPLASTIC 02/18/2007 Constipation 04/04/2015 Dysmetabolic syndrome X 12/28/2007 Essential hypertension 04/04/2015 GERD without esophagitis 07/24/2020 Hemorrhage of gastrointestinal tract, unspecified History of left mastectomy 05/05/2018 Impaired fasting glucose 11/21/2007 Internal hemorrhoids without mention of complication Iron deficiency anemia due to chronic blood loss 09/02/2023 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 Leg cramps 01/08/2020 Living will on file 07/31/2021 DPA: Javier ( ) Malignant neoplasm of both ovaries (HCC) 10/26/2018 Mixed hyperlipidemia 04/04/2015 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 multiple joints 07/27/2016 Osteopenia 12/28/2012 Other acne 05/29/2008 Other seborrheic keratosis 02/18/2007 Panic attacks 07/18/2012 Primary insomnia 01/29/2022 S/P colectomy 08/06/2023 SOLAR LENGINES///DYSCHROMIA OTHER 02/18/2007 Thrombocytopenia (HCC) 01/29/2022 chronic Trigger ring finger of left hand 07/24/2020 Trigger ring finger of right hand 07/24/2020 PAST SURGICAL HISTORY Procedure Laterality Date BX BREAST PERC VACUUM/ROTN 10/26/2007 LEFT COLONOSCOPY FLX DX W/COLLJ SPEC WHEN PFRMD 07/20/2005 COLONOSCOPY FLX DX W/COLLJ SPEC WHEN PFRMD 05/01/2016 normal - 10 year follow up LAPAROSCOPIC HEMICOLECTOMY Right 06/2023 LIG/TRNSXJ FLP TUBE ABDL/VAG APPR UNI/BI Tubal ligation MAST RAD W/PECTORAL MUSCLES AXILLARY LYMPH NODES 11/2007 Left PAST SURGICAL HISTORY OF BACK SURGERY PAST SURGICAL HISTORY OF 10/06/2018 Exploratory laparotomy, total abdominal hysterectomy, bilateral salpingooophorectomy, and bladder and posterior culdesac peritoneum resected en bloc, omentectomy PLCMT LOCALZTN CLIP,PERC,DURING BREAST BX 10/26/2007 LEFT S PORT-A-CATH [id number] 11/09/2018 TONSILLECTOMY PRIMARY/SECONDARY <AGE 11 Tonsillectomy FAMILY HISTORY Problem Relation Age of Onset Ovarian cancer Mother dx 50s Arthritis Father Cancer Maternal Aunt 7 aunts with breast or ovarian cancer. details unknown Social History Tobacco Use Smoking status: Never Passive exposure: Never Smokeless tobacco: Never Vaping Use Vaping status: Never Used Substance Use Topics Alcohol use: No Drug use: No Current Outpatient Medications Medication Sig Dispense Refill ondansetron (ZOFRAN) 8 mg tablet Take 1 tablet by mouth every 8 hours as needed for nausea/vomiting. 30 tablet 2 acetaminophen (TYLENOL) 500 mg tablet Take 2 tablets by mouth every 8 hours. 30 tablet 0 docusate sodium (COLACE ORAL) Take 1 tablet by mouth once daily as needed. Current Facility-Administered Medications Medication Dose Route Frequency Provider Last Rate Last Admin perflutren lipid microspheres 1.3 mL in NaCl (PF) 0.9% 10 mL injection (DEFINITY) INTRAVENOUS DIRECTED PRN Kasi Welch, CERTIFIED ORTHOTIST/PEDORTHIST.REGIONAL WILDLIFE AGENT sodium chloride 0.9 % (flush) 10 mL (BD POSIFLUSH) 10 mL INTRAVENOUS DIRECTED PRN Kasi Wlech, CERTIFIED ORTHOTIST/PEDORTHIST.REGIONAL WILDLIFE AGENT ALLERGIES Allergen Reactions Penicillins Rash Sulfa (Sulfonamide * Unknown INTERVAL HISTORY Savana Patel reports she feels well. She stated that her abdomen pain has been the same since last visit. She reported fatigue, which happens faster as of lately. Her bowels are normal until she gets to chemotherapy, then she reported that she gets constipated. She stated that her neuropathy appears to be getting worse. She noticed that after having her chemotherapy, that her hands feel worse the next day, however by the second day it gets better. She has had no falling. She reported no emesis. RESULTS: Data Reviewed: Most recent labs and imaging results. CA 125 (U/mL) Date Value 05/09/2024 1,206 04/20/2024 1,255 03/29/2024 1,608 02/29/2024 4,551 01/24/2024 2,495 01/17/2024 1,616 12/27/2023 101 12/06/2023 22 11/12/2023 17 10/20/2023 41 09/23/2023 117 08/26/2023 49 07/30/2023 36 07/02/2023 16 05/07/2023 13 04/09/2023 11 03/12/2023 11 02/12/2023 11 01/14/2023 10 12/07/2022 10 11/23/2022 11 10/30/2022 11 10/09/2022 12 09/18/2022 15 08/28/2022 30 08/04/2022 181 07/20/2022 483 06/18/2022 125 04/13/2022 14 03/23/2022 12 02/24/2022 10 01/19/2022 10 12/23/2021 10 11/24/2021 11 10/27/2021 11 09/29/2021 10 09/01/2021 9 07/07/2021 8 06/09/2021 9 05/12/2021 8 04/14/2021 8 02/19/2021 9 12/09/2020 9 10/23/2020 9 09/27/2020 8 08/23/2020 8 07/26/2020 8 06/28/2020 8 03/28/2020 8 02/01/2020 8 01/01/2020 8 10/20/2019 8 09/22/2019 7 08/25/2019 8 07/28/2019 8 07/20/2019 8 07/14/2019 9 07/07/2019 8 06/20/2019 9 03/27/2019 7 09/12/2018 1,153 ASSESSMENT/PLAN 09/10/2020 - Dr. 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 Interval testing since last visit discussed, CA125 reviewed and within normal limits. Patient is up-to-date with health maintenance including mammogram, colonoscopy and advanced directives. Reviewed issues of survivorship including sexual health after cancer treatment, mental health and support systems. Importance of cancer surveillance and early detection of recurrence reinforced. 10/28/2020- Heather Lutz NP (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 Advised her value is stable. Last CT scan was in March 2020. Will order CT of the chest abdomen and pelvis for reevaluation while on PARPi therapy. Patient would like to establish with Dr. Cote, will move her appointment with me from 12/[address] Dawson on 12/[address] scans the week before. Continue monthly labs while on PARPi therapy Patient verbalized an understanding and agreed with the plan. Instructed to call if she has any questions or concerns. 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 Patient expressed concern about receiving the COVID vaccine while taking Olaparib. I advised the patient to continue with the COVID vaccine and discussed findings that supported my recommendation with her. Patient is receptive to recommendation. I answered all of the patient's and patient's 's questions and addressed their concerns. Plan to RTC in March [address] before and in June 2021. Continue with monthly CBC, and CA 125 prior to office visit with me in [place]. Patient verbalized an understanding and agreed with the plan. 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 I reviewed the most recent CT results with the patient which showed no acute pathology, no suspicious pulmonary nodules, no thoracic lymphadenopathy in the chest, and no acute pathology, and no mass or lymphadenopathy in the abdomen and pelvis. Ms. Patel received the 2nd COVID vaccine in January, and reports experiencing hot flashes since that time. I believe that this might be due to the Lynparza. Ms. Patel also complains of leg cramps that onset at night. I recommend taking multivitamins daily, as well as eating a diet rich in Potassium. Ms. Patel will continue taking Lynparza until the last day in May. Plan to RTC on June 25, [address], CBC, and CA [address] results show no new evidence of disease, we will discuss stopping her PARP. We will discuss the cancer surveillance timeline at the next visit. 07/04/2021 Stop lynparza. Ok to stop protonix in 2-3 weeks after stopping lynparza. I recommend leaving port for one year. Discuss in one year. Discussed no scans needed unless concerning s/s of recurrence. CA 125 prior to each office visit. 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 Discussed she may have some improvement but hard to say at this point. Recommend KN95 with omicron variant. Discussed covid testing guidelines. Follow up in 3 months 10/01/2021 Impression: History of Ovarian Cancer, most recently had completed Olaparib . CA 125 is 10, stable, but she is worried because it has increased by 1 point. Discussed the significance of small changes in CA 125 and anxiety which often accompany's this. Plan: CA 125 and clinical examination in December. Vulvar dryness and itching. Will prescribe Lotrisone cream. Said she had this in past and it helped her. She will call office if symptoms of itching, and dryness don't resolve in the next couple of weeks. 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 CA 125 is stable. Some bladder symptoms at times. Intermittent. Discussed pelvic floor PT. Will trial melatonin for insomnia and some assistance with constipation. BMD ordered for osteopenia screening. 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 No clinical evidence of disease. She has been off her PARP for approximately 9 months. Repeat CA 125 in 3 months. If CA 125 value is >15, (the roberto value,) will check CT scan as well. Reviewed signs and symptoms of recurrence and told to call with persisting concerns. Follow up in clinic in June for continued surveillance. 04/22/2022 She is feeling a bit better. I reviewed the recent labs she had. Nothing actionable. No clinical evidence of diverticulitis or UTI. She has had a flu shot. I advise getting the covid bivalent booster. CA 125 again in June a couple days before she sees me. She is in agreement with these plans. 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 Recently her CA 125 has jumped from 14 (04/13/22) to 125 (06/18/22). PLAN CT Chest & Abd/Pel to be done in [place] early next week. Contact clinic if CT is scheduled for later than Wednesday to reschedule virtual visit. Follow up Wednesday07/01/22 to review results of CT scan and discuss her care plan. 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 Would be considered [place] sensitive. Cancer appears to be involving distal ileum, and possibly sigmoid colon and right psoas. There may be sub-centimeter lesions elsewhere in the abdominal cavity. These findings were reviewed in detail with . Options for management include secondary debulking, possibly with HIPEC, followed with chemotherapy vs chemotherapy alone. To better assess whether secondary debulking would be appropriate, a pelvic MRI will be checked with focus on the possible involvement of the psoas muscle and surrounding blood vessels. If secondary debulking not advised, a CT guided biopsy of the recurrence will be considered as this sample can be sent for somatic tumor testing which can guide future treatment decisions. PLAN Review her case at the next Decontamination Technician/Onc Tumor Conference. MRI to be done in [facility] for later this week. Follow up Wednesday07/08/22 to review Tumor Board discussion and MRI results. We will confirm the care plan at this time. 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 Her case was discussed in Tumor Board on 07/07/22. 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 If Bevacizumab is started, beginning with cycle number 3 of chemotherapy, consider single agent Bevacizumab following several cycles of carboplatin, Paclitaxel, and Bevacizumab Side effects of treatment plan reviewed, questions answered to patient's satisfaction. She is agreeable with this plan. Symptoms concerning for worsening disease reviewed. Instructed to contact this clinic if she has any questions. PLAN She wishes to receive her chemotherapy in [place] with Dr.Paul Eev DO. A copy of this note will be forwarded to him today. I will reach out to to fascilitate an appointment [phone] Follow up with me at the [facility] 2 weeks after her second cycle of chemotherapy, with a CT prior to that appointment. Will decide if Bevacizumab should be added at this time. 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 She is s/p cycle two of chemotherapy with Carboplatin and Paclitaxel. No unexpected toxicity. Improvement of disease burden on CT Discussed potential addition of Bevacizumab to current chemotherapy plan. Given indication of persistent tethering of cancer to right colon on CT, Bevacizumab is not iadvised at this time. PLAN Continue chemotherapy with carbo/taxol under 's supervision. Repeat CT after cycle 6, will place order for this. Follow up in this office after cycle 6, to review the CT and discuss maintenance therapy options. 08/31/22 Telephone Call with Corinne Santana RN Spoke with pt who reports that she was given chemo today at [place] infusion and was accidentally given michael along with her carbo/taxol which she was not supposed to receive per her OV with Eve on 08/28. Pt is still very anxious r/t the error and is calling to be certain the [facility] is aware of the situation. Pt is questioning whether she should expect her bowel to perforate due to this mistake. Explained that this is a known but relatively rare side effect. There is no certainty it will or will not happen. Reviewed S&S of acute abd that would require immediate medical attention. Ensured that pt has on-call employee relations consultant phone number. Pt states she was also given the on-call onc number at [facility]. Also explained that the med error will be reported and go through the proper channels to ensure proper review. Pt remains anxious and requests to speak directly to Rocael. Pt was offered a televisit on 09/02 at 0900 which she accepted. The appt will be scheduled. Pt is appreciative of conversation and information discussed. 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 She is s/p cycle three of chemotherapy with Carboplatin and Paclitaxel. Bevacizumab was given with cycle 3, which was not planned based on CT findings). Presently no concerning symptoms related to bevacizmab administration. Explained that bevacizumab is an approriate agent in her type of cancer, and though not planned to have been given, holding this agent prior to last cycle of chemotherapy was a judgement call. We reviewed serious but uncommon side effect of bowel perforation or peritonitis. Reviewed other side effects of bevacizumab. Reviewed alternative names of bevacizumab including the version she received, Zirabev. Addressed her anxiety surrounding the unplanned dose of bevacizumb given. PLAN Repeat CT after cycle 4 of chemotherapy (taxol and carboplatin) Will readdress potential role for bevacizumab in treatment upon review of future scans Follow up as planned in the office to discuss scans & care plan. 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 Most recent CT imaging showing stable disease burden. 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 Discussed option of continuing with current therapy with understanding that future chemotherapy will not likely result in significant reduction in tumor burden, but stable disease for some time is possible, though with high chance of worsening chemotherapy associated toxicity.. Other treatment options discussed included chemo holiday vs clinical trial vs potential surgery. PLAN Will aim to present ' case at Tumor Board at next available presentation. Follow up via telephone visit to discuss Tumor Board's recommendations & determine her care plan. Ok to go for eye exam Order placed for urine culture to be completed at [facility]. Signs and symptoms of worsening disease reviewed. Contact this office with any questions or concerns prior to that appointment. 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 Chemo toxicity reported; grade 2 neuropathy in hands, fatigue also reported. Post-treatment CT imaging showed stable disease burden, CA 125 stable. Discussed results of Decontamination Technician/Onc Tumor Board. Recommendation is continued chemotherapy with Doxil, single agent, 40 mg/m2 IV every 4 weeks. No growth factor with cycle 1, reassess need for growth factor pending marrow toxicity. Benefits, risks, side effects, and treatment schedule of Doxil discussed. Total number of cycles required cannot be determined at this time, plan for at least 6. Questions answered to patient's satisfaction. PLAN She wishes to receive her chemotherapy under the direction of ; a copy of this note will be shared with him. CT scans to be repeated following 3 treatments. Return to clinic following cycle 3 to review her imaging results and discuss her treatment. Contact this office with any questions or concerns prior to then. 03/09/2023 Recurrent fallopian tube carcinoma. Germline BRCA2 mutation. Last koyuk based regimen completed October 2022. Presently on doxil. Dose reduced to 30 mg/m2 for cycle 3 due to PPE. Following 3 cycles of treatment, disease remains stable. She is tolerateing Doxil better than carbo and taxol. Manageable PPE and mucocitis of the mouth. PLAN Repeat CT scan prior to cycle #7 at current dose of Doxil. I provided information regarding chilling of her hands the day before, of and after Doxil treatment. She is also using medicated mouthwash to prevent mouth sores. Regarding perineum advised her to apply Vaseline and may also use small amount of steroid ointment if Vaseline is not sufficient. I will see her in May to review CT scan prior to receiving cycle of treatment. 07/02/2023 Recurrent fallopian tube carcinoma. Germline BRCA2 mutation. Recent cecal volvulus. Last koyuk based regimen completed October 2022. Last chemo with doxil was several weeks ago. CBC ok for treatment. Patient scheduled for a laparotomy, removal of right colon, possible ileostomy, removal of other areas of cancer seen in the abdomen and pelvis on 07/14/2023. Consent signed in clinic today. EKG earlier today normal. Briefly reviewed pre-operative instructions and post-operative restrictions. Instructed to stop PO intake on the 23rd after midnight. Informed patient she will receive further details during pre-op visit with a nurse and by anesthesiology. Answered patient's questions. 08/13/2023 Recurrent fallopian tube cancer with recent surgery to resect a cecal volvulus associated with her cancer. Last doxil received 04/2023, her cancer is considered to have progressed on doxil and likely koy[place] refractory. Given pathology results, she will need additional chemotherapy. We will evaluate her for a clincal trial and if not eligible will consider other standard agents. Ordering FOLR1 testing on tumor; informed patient of drug used if FOLR1 positive. If FOLR1 negative, consider pembrolizumab, oral cytoxan and bevacizumab. Options: Barring participation on a clinical trial, she would like to resume chemo closer to home as she has been doing. I will review results and treatment options over video virtual visit in a couple weeks. Advised stopping Colace for a couple of days, can resume if starts experiencing constipation. Can try OTC nystatin for vaginal pruritus. 12/09/2023 Recurrent fallopian tube cancer, FOLR1 positive, s/p cycle 4 of mirvetuximab under direction of Hem/Onc Dr. Cruz. Grade 1 neuropathy, heading to grade 2. Most troublesome toxicity has been that of her eyes. Reviewed length of treatment based on toxicity to treatment and disease status. Answered patient's questions. I have advised Ms Patel discuss reducing dose to 5 mg/kg/dose and/or extending the interval between treatment with Dr. Cruz. CA 125 slightly higher than last value 3 weeks ago. No evidence of worsening disease per CT abd/pel and exam today. CT chest report not released yet, advised her to have Dr. Cruz review these results with her once posted. I recommend a repeat CT scan [address] scan. Return to see me in early April, shortly after CT. 05/11/2024 Progression of disease while on mirvetuximab soravtansine based on rapid rise in CA 125 and new ascites on CT 01/24/24. Dr Cruz discussed the finding with Ms Patel and decision was made to change therapy to topotecan and bevacizumab. Topotecan day 1 and 8 (3 mg/M2) , michael day 1 (10 mg/kg) She has completed 5 cycles of therapy (last given 05/10/2021). CA 125 has decreased from 4552 (2 mo ago) to 1206. Last CT was done prior to cycle 3 of topotecan and bevacizumab. No measurable tumors are apparent. Ascites only. Advise CT a couple weeks after cycle 6 (approx late May) If ascites is not improving, consider a paracentesis to check for malignant cells. I would like to see her in late May/early June.for in person cancer assessment. Documentation from clinic notes of previous visit on 12/09/2023 was copied and pasted, documentation has been reviewed and edited as necessary and is current for today. Total Time Spent: 5-10 minutes 05/11/2024 ATTESTATION Scribe Attestation: By signing my name below, I, Carine Pichardo, attest that this documentation has been prepared under the direction and in the presence of Fang Cote MD. Electronically Signed: Chasity Betancourt. May 11, 2024 3:11 PM. Provider Attestation: I, Dr. Fang Cote, personally performed the services described in this documentation. All medical record entries made by the scribe were at my direction and in my presence. I have reviewed the chart and discharge instructions (if applicable) and agree that the record reflects my personal performance and is accurate and complete. Electronically Signed: Fang Cote MD. May 21, 2024 5:09 PM documented in this encounter [facility] 05-10-2024 History of Presen t illness Narrative 6.[address] in this encounter [facility] 05-09-2024 History of Presen t illness Narrative Savana Patel 1950 05/09/2024 Diagnosis: 1) Recurrent high grade serous carcinoma of the ovary. 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 Initially underwent pelvic ultrasound on 09/01/2018. Uterus appeared normal. The endometrial stripe was 2.3 mm. Right and left ovaries appeared normal. However there was a large amount of free fluid in the pelvic cul-de-sac. CT A/P 09/08/2018: Liver: No mass. Homogeneous texture. Biliary: No ductal dilatation is seen. Gallbladder is unremarkable. Spleen: Spleen is unremarkable. Pancreas: No mass or duct dilation. Adrenals: Adrenal glands are unremarkable. Kidneys: No mass, calculus or hydronephrosis is seen. GI tract: No bowel dilatation is seen. No evidence of obstruction. Lymph nodes: No evidence of adenopathy. Mesentery/Peritoneum: There is increased soft tissue density best seen in the coronal views extending from the lower abdomen into the pelvic area. This could represent peritoneal involvement with tumor. This is seen on coronal image 37 and axial images 99 through 122. It extends across the anterior aspect of the pelvic area seen on axial image 124. Vasculature: No evidence of dilatation of the abdominal aorta. CT PELVIS: Pelvis: There is a large amount of free fluid or loculated fluid in the pelvis suggesting that there could be an enhancing rim surrounding this fluid is seen on image 127 and measures 10.6 x 6.1 cm. Bones/Soft Tissues: No significant findings identified. Lower thorax: Unremarkable. CA125 was 1153 U/mL. Had employee relations consultant onc evaluation and CT chest unremarkable. Underwent exploratory laparotomy, optimal tumor bulking, total abdominal hysterectomy, bilateral salpingo-oophorectomy, resection of bladder cul-de-sac and pelvic peritoneal disease along with resection of omental caking with super colic omentectomy on 10/06/2018. Pathology: FINAL DIAGNOSIS 1. 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 2. 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 3. Uterus, cervix, bilateral ovaries and fallopian tubes, and bladder/pelvic peritoneum, hysterectomy and excision (C) Left fallopian tube - High grade serous carcinoma (see comment and synoptic report). Right fallopian tube - Positive for involvement by high grade serous carcinoma. Bilateral ovaries - Positive for involvement by high grade serous carcinoma. Uterine serosa - Positive for involvement by high grade serous carcinoma. Bladder/pelvic peritoneum - Positive for involvement by high grade serous carcinoma. Endometrium - Inactive endometrium. Myometrium - Negative for malignancy. Cervix - Negative for malignancy. SYNOPTIC REPORT OF BRAUN PATHOLOGIC FINDINGS UTERUS, CERVIX, BILATERAL TUBES AND OVARIES, BLADDER, AND PELVIC PERITONEUM: Procedure: Total hysterectomy and bilateral salpingo-oophorectomy Omentectomy Peritoneal biopsies Specimen Integrity: Left fallopian tube serosa intact Primary Tumor Site: Left fallopian tube Ovarian Surface Involvement: Present Specify laterality (if applicable): Bilateral Fallopian Tube Surface Involvement: Present Specify laterality (if applicable): Bilateral Tumor Size: Greatest dimension: 1.6 cm Histologic Type: Serous carcinoma Histologic Grade: Not applicable Two-tier grading System: High grade Implants: Not applicable/not sampled Involvement of other tissues/organs: Right ovary Left ovary Right fallopian tube Pelvic peritoneum Omentum Other organs/tissues (specify): Uterine serosa Largest extrapelvic peritoneal focus, macroscopic (greater than 2 cm) Peritoneal Ascitic Fluid, Not submitted/unknown Treatment Effect: No known presurgical therapy Regional Lymph Nodes: No nodes submitted or found Pathologic Stage Classification (pTNM, AJCC 8th ed) TNM Descriptors: Not applicable Primary Tumor (pT): pT3c: Macroscopic peritoneal metastasis beyond pelvis more than 2 cm in greatest dimension with or without metastasis to the retroperitoneal lymph nodes (includes extension to capsule of liver and spleen without parenchymal involvement of either organ) Regional Lymph Nodes (pN): pNX: Cannot be assessed Distant Metastasis (pM): Not applicable/Not confirmed pathologically in this case Previous therapy: 1) 11/11/2018 - 02/03/2019: PACLITAXEL 80 D1,8,15 CARBOPLATIN 6 D1 - Q21D s/p 4 cycles. *neutropenia/thrombocytopenia causing treatment delay. Neulasta OnPro added; switch to Q21D dosing of Taxol with cycles 5 & 6 02/23/2019 - 03/17/2019: PACLITAXEL 135 D1 CARBOPLATIN 6 D1 - Q21D s/p 2 cycles. 2) 06/30/2019 - 06/20/2021: olaparib (LYNPARZA) 150 mg tablet; 300 mg BID. CTs 06/29/2022: Mesentery/Peritoneum: * New 0.4 cm anterior mesenteric fat nodule (8:57) * Confluent infiltrative soft tissue in RIGHT false pelvis surrounding the terminal ileum and ascending colon (cecum deep in pelvis) and probably affecting the sigmoid colon; difficult to precisely measure as it envelops bowel but including bowel measures approximately 4.5 x 2.9 cm (8:101); process extends to the RIGHT psoas muscle * Several small subtle anterior mesenteric fat nodules * No free abdominal fluid MRI pelvis 07/02/2022: Similar imaging findings since CT 06/29/2022, redemonstrating pelvic peritoneal/serosal carcinomatosis involving segments of bowel predominantly in the right anterior pelvis, with confluent soft tissue encasing the proximal ascending colon and causing relative upstream dilation of the low-lying cecum suggesting developing colonic obstruction. No small bowel dilation. No pelvic lymphadenopathy. 3) Carboplatin/paclitaxel x6 cycles. Completed 11/02/2022. Stable disease. 4) Doxil tolerated very well. PD 05/27/2023. 5) Elahere. PD. CTs 05/27/2023 demonstrated progression of disease with an increase in size of irregular soft tissue density in the right pelvis as well as increasing thickening of the wall of the cecum. Presented to the ED at [facility] about a week later. CT scan demonstrated possible cecal volvulus. She was transferred to [facility]. Managed nonsurgically with NG decompression. NG was removed on her second hospital day and her diet was advanced to clear liquids and then the following day advance to full liquids then to gastrointestinal soft diet on day 3. She was discharged home with plans for outpatient follow-up and colectomy with possible cytoreduction. Underwent open right hemicolectomy on 07/14/2023. Initially Dr. Dawson performed laparotomy and excised several lower pelvic lesions. Dr. Jes maldonado performed the right hemicolectomy. He observed kinking of the cecum, proximal ascending colon and some of the distal ileum coming together causing narrowing of the pedicle around which the colon was volvulized. Pathology: FINAL DIAGNOSIS A. 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 B. 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 C. 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 - Background small bowel with acute serositis, possibly procedure-related. - Appendix with fibrous obliteration. - Thirteen lymph nodes, negative for malignancy (0/13). D. Fascia, anterior abdominal wall, excision: - Fat necrosis with associated dystrophic calcification, negative for malignancy. Current therapy: 1) Topotecan with bevacizumab. Presents for ongoing oncologic management. Interim history: Pt presents today with spouse prior to C4D15. She reports feeling well today. Denies new issues. No N/V. Mild constipation occasionally. Appetite and energy level are stable. Denies new aches or pains. No abd bloating. No s/s of bleeding. Denies SOB, CP, palpitations. Neuropathy is stable. PMH, medications and allergies personally reviewed by me today. Any changes documented in appropriate section. ROS: Constitutional: Denies episodes of fever and night sweats. All systems reviewed on 05/09/2024 with pertinent positives and negatives as outlined in the interval history. PHYSICAL EXAM: Physical Exam: BP 121/76 Pulse 64 Temp (Src) 97.5 (Temporal) Wt 122 lb (55.3kg) SpO2 100% Well-appearing and in no acute distress. EYES: Sclerae are anicteric bilaterally. No conjunctival injection. LYMPHATIC: No palpable cervical or supraclavicular adenopathy. RESPIRATORY: Inspiratory breath sounds are of normal intensity in all bernabe. There are no crackles, wheezes or rales. CARDIOVASCULAR: Rhythm is regular. ABDOMEN: The abdomen is soft and nontender throughout. No appreciable fluid wave. No palpable masses Extremities: No swelling of the LEs. SKIN: No jaundice or rash. I have performed the physical exam today (05/09/2024) and have edited the note to correlate with current findings. LABS: Latest Reference Range & Units 04/20/24 09:32 04/26/24 10:40 05/03/24 09:20 05/09/24 08:08 WBC 3.70 - 11.00 k/uL 4.54 2.80 (L) 3.30 (L) 3.78 RBC 3.90 - 5.20 m/uL 3.77 (L) 3.54 (L) 3.34 (L) 3.53 (L) Hemoglobin 11.5 - 15.5 g/dL 10.0 (L) 9.5 (L) 8.9 (L) 9.4 (L) Hematocrit 36.0 - 46.0 % 32.2 (L) 30.3 (L) 28.5 (L) 30.4 (L) Platelet Count 150 - 400 k/uL 165 175 77 (L) 151 MCV 80.0 - 100.0 fL 85.4 85.6 85.3 86.1 MCH 26.0 - 34.0 pg 26.5 26.8 26.6 26.6 MCHC 30.5 - 36.0 g/dL 31.1 31.4 31.2 30.9 MPV 9.0 - 12.7 fL 9.8 9.6 9.4 10.5 RDW-CV 11.5 - 15.0 % 18.8 (H) 17.9 (H) 18.0 (H) 18.7 (H) DTYPE Auto Auto Auto Auto Neut% % 65.0 44.3 55.8 57.6 Abs Neut (ANC) 1.45 - 7.50 k/uL 2.95 1.24 (L) 1.84 2.18 Lymph% % 23.6 40.7 34.2 28.8 Abs Lymph 1.00 - 4.00 k/uL 1.07 1.14 1.13 1.09 [place]% % 9.9 12.1 8.5 12.2 Abs [place] <0.87 k/uL 0.45 0.34 0.28 0.46 Eosin% % 0.9 1.8 0.6 0.8 Abs Eosin <0.46 k/uL 0.04 0.05 <0.03 0.03 Baso% % 0.4 0.7 0.6 0.3 Abs Baso <0.11 k/uL <0.03 <0.03 <0.03 <0.03 Immature Gran % % 0.2 0.4 0.3 0.3 IMMATURE GRANS (ABS) <0.10 k/uL <0.03 <0.03 <0.03 <0.03 NRBC /100 WBC 0.0 0.0 0.0 0.0 Absolute nRBC <0.01 k/uL <0.01 <0.01 <0.01 <0.01 (L): Data is abnormally low (H): Data is abnormally high ASSESSMENT/PLAN: (C56.1, C56.2) Malignant neoplasm of both ovaries (HCC) (primary encounter diagnosis) Assessment: -KPS is 90% (due to recent surgery). -BRCA2 mutation (tested 04/2019). -Baseline CA125 1153 U/mL. -s/p right hemicolectomy with some tumor sampling/debulking. -FOLR1 IHC results--100% of cells stained +2-3+4 -Blood pressure under good control--home SBP WNL -Tolerating topotecan with bevacizumab very well. -UA trace proteinuria. -Mild anemia, stable Plan:. -Okay for cycle #4 topotecan and bevacizumab tomorrow. -Monitor CA125 each cycle, pending today -CTs following 3 cycles. Amy Hernandez, HECTOR.REGIONAL WILDLIFE AGENT I spent a total of 30 minutes on the date of the service which included preparing to see the patient, [id number] patient care, completing clinical documentation, and performing a medically appropriate examination. Portions of this note including HPI, ROS, impression/plan may have been copied forward as to provide important historical information essential in contributing to medical decision making. Documentation has been reviewed and edited as necessary to support clinical decision making for today's visit and to reflect my own independent evaluation of this patient. documented in this encounter [facility] 05-03-2024 History of Presen t illness Narrative Platelet count resulted at 77. Dr. Cruz aware. Orders to Cancel day 15 and restart next cycle in a week rather than wait two weeks. Pt verbalized understanding. PSR to reschedule. Latoya Nathan, SHEILA documented in this encounter [facility] 04-27-2024 Telephone encounter Note Returned pt call. Offered her a virtual visit on 05/03 prior to her chemo. Pt declined. Pt able to do appt on 05/10, however has no template. Offered pt 2:30 pm on 05/11. Pt agreeable, but requests that it is a phone call. Msg sent to scheduling for pt's appt time/date/request. [facility] 04-27-2024 Miscellaneous Notes Returned pt call. Offered her a virtual visit on 05/03 prior to her chemo. Pt declined. Pt able to do appt on 05/10, however has no template. Offered pt 2:30 pm on 05/11. Pt agreeable, but requests that it is a phone call. Msg sent to scheduling for pt's appt time/date/request. Reason for call: TeleVist Provider name: Dr. Cote Additional comments: Patient has double treatment and would like to know if she could have 05/[address] Cote changed to a TeleVisit due to traveling. Patient would like a call back at [phone] documented in this encounter [facility] 04-27-2024 Telephone encounter Note Reason for call: TeleVist Provider name: Dr. Cote Additional comments: Patient has double treatment and would like to know if she could have 05/[address] Cote changed to a TeleVisit due to traveling. Patient would like a call back at [phone] [facility] 04-26-2024 History of Presen t illness Narrative Dr. Cruz notified of ANC=1.24 and urine [id number]. Per Dr. Cruz OK to treat today but wants patient to do a 24 HR urine as well Patient advised to call in if she has a fever of 100.4 or higher. Patient given supplies for 24 hour urine and educated on directions to complete. documented in this encounter [facility] 04-25-2024 Telephone encounter Note Schedule updated [facility] Work Phone: 04-25-2024 Miscellaneous Notes Schedule updated Held D8 for 1030 tomorrow. Patient informed. Unable to update schedule. CC is in account. Once out, I will complete the scheduling. Spoke to Dr. Cruz. Technically last week would've been the start of a new cycle and she should have D8 this week, D15 next week. PSS- Please update schedule and contact patient. Patient aware she does not need an OV next week. Patient informed that Dr. Cruz recommends a dental evaluation. PSS- patient stated her schedule needs to be revised. Patient is scheduled to start her next cycle of chemo next week and is scheduled for two treatments in the same week. Please review/revise patients schedule and then contact her when it is complete. Patient stated she would like to come in to pick up attendant a printout once its available. Thank you. Doreen Jerome RN Care Coordination Triage Note [facility] Situation: Patient reports Bowel symptoms and Mouth pain/Mucositis Background: Ovarian, topotecan/avastin Assessment: Describe the mouth pain or sores: lower teeth, they make my teeth ache, its like a sore on the side of my right jaw. Every now and then you can taste a little bit of blood. Patient stated every time she opens her mouth, it's sore. Patient denies seeing sores in her mouth. stated theres a white lump on the gum, right behind her tooth, the size of a small pea. Patient stated the area where the white lump is, the area is sore when she touches the area or when she opens her mouth. Patient is able to chew without difficulty and she denies a tooth ache or throbbing pain. Has a blood taste in her mouth, feels it could be a metallic taste. Advised switching to plastic silverware. Do you have sores in just your mouth or your throat as well? no Are the sores interfering with eating, drinking or sleeping? no Do you have a white coating on your tongue? no Do you have a temperature over 100.4? no What measures have you taken to alleviate your symptoms? Salt water rinses, discussing baking soda/salt water rinses. Has this happened with prior cycles of treatment? Yes, previous chemo regimen Constipation Symptoms: Patient stated the last chemo treatment made her constipated. Patient started taking MOM which helped her bowels move. Patient stated this lasted a few days. When was your last bowel movement? This morning, normal BM. What is your normal frequency of bowel movements (every day, every 2 days...) every morning. Any blood in the stool or on the toilet tissue? yes on the tissue paper yesterday, denies seeing any blood today. Patient stated she had to strain to have a BM with this last bout of constipation which caused her hemorrhoids to flare. Are you eating and drinking normally? Yes. Drinking 3.5-4 bottles of fluids daily and body armour. What have you taken to try to alleviate your constipation symptoms? MOM -alleviated symptoms. Discussed taking a stool softener or miralax around treatment day to prevent constipation symptoms. Recommendations: Per [facility], will discuss with Dr. Cruz. Doreen Jerome RN April 25, 2024 10:40 AM Patient called stating she has a few issues/concerns she would like to speak with Doreen about today. -mouth sores -constipation -has the type of chemo changed? documented in this encounter [facility] 04-25-2024 Telephone encounter Note Held D8 for 1030 tomorrow. Patient informed. Unable to update schedule. CC is in account. Once out, I will complete the scheduling. [facility] 04-25-2024 Telephone encounter Note Spoke to Dr. Cruz. Technically last week would've been the start of a new cycle and she should have D8 this week, D15 next week. PSS- Please update schedule and contact patient. Patient aware she does not need an OV next week. Patient informed that Dr. Cruz recommends a dental evaluation. [facility] 04-25-2024 Telephone encounter Note PSS- patient stated her schedule needs to be revised. Patient is scheduled to start her next cycle of chemo next week and is scheduled for two treatments in the same week. Please review/revise patients schedule and then contact her when it is complete. Patient stated she would like to come in to pick up attendant a printout once its available. Thank you. Doreen Jerome RN [facility] 04-25-2024 Telephone encounter Note Care Coordination Triage Note [facility] Situation: Patient reports Bowel symptoms and Mouth pain/Mucositis Background: Ovarian, topotecan/avastin Assessment: Describe the mouth pain or sores: lower teeth, they make my teeth ache, its like a sore on the side of my right jaw. Every now and then you can taste a little bit of blood. Patient stated every time she opens her mouth, it's sore. Patient denies seeing sores in her mouth. stated theres a white lump on the gum, right behind her tooth, the size of a small pea. Patient stated the area where the white lump is, the area is sore when she touches the area or when she opens her mouth. Patient is able to chew without difficulty and she denies a tooth ache or throbbing pain. Has a blood taste in her mouth, feels it could be a metallic taste. Advised switching to plastic silverware. Do you have sores in just your mouth or your throat as well? no Are the sores interfering with eating, drinking or sleeping? no Do you have a white coating on your tongue? no Do you have a temperature over 100.4? no What measures have you taken to alleviate your symptoms? Salt water rinses, discussing baking soda/salt water rinses. Has this happened with prior cycles of treatment? Yes, previous chemo regimen Constipation Symptoms: Patient stated the last chemo treatment made her constipated. Patient started taking MOM which helped her bowels move. Patient stated this lasted a few days. When was your last bowel movement? This morning, normal BM. What is your normal frequency of bowel movements (every day, every 2 days...) every morning. Any blood in the stool or on the toilet tissue? yes on the tissue paper yesterday, denies seeing any blood today. Patient stated she had to strain to have a BM with this last bout of constipation which caused her hemorrhoids to flare. Are you eating and drinking normally? Yes. Drinking 3.5-4 bottles of fluids daily and body armour. What have you taken to try to alleviate your constipation symptoms? MOM -alleviated symptoms. Discussed taking a stool softener or miralax around treatment day to prevent constipation symptoms. Recommendations: Per [facility], will discuss with Dr. Cruz. Doreen Jerome RN April 25, 2024 10:40 AM [facility] 04-25-2024 Telephone encounter Note Patient called stating she has a few issues/concerns she would like to speak with Doreen about today. -mouth sores -constipation -has the type of chemo changed? [facility] 03-30-2024 History of Presen t illness Narrative Assessment unchanged from 03/29/[address] Cruz documented in this encounter 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 Initially underwent pelvic ultrasound on 09/01/2018. Uterus appeared normal. The endometrial stripe was 2.3 mm. Right and left ovaries appeared normal. However there was a large amount of free fluid in the pelvic cul-de-sac. CT A/P 09/08/2018: Liver: No mass. Homogeneous texture. Biliary: No ductal dilatation is seen. Gallbladder is unremarkable. Spleen: Spleen is unremarkable. Pancreas: No mass or duct dilation. Adrenals: Adrenal glands are unremarkable. Kidneys: No mass, calculus or hydronephrosis is seen. GI tract: No bowel dilatation is seen. No evidence of obstruction. Lymph nodes: No evidence of adenopathy. Mesentery/Peritoneum: There is increased soft tissue density best seen in the coronal views extending from the lower abdomen into the pelvic area. This could represent peritoneal involvement with tumor. This is seen on coronal image 37 and axial images 99 through 122. It extends across the anterior aspect of the pelvic area seen on axial image 124. Vasculature: No evidence of dilatation of the abdominal aorta. CT PELVIS: Pelvis: There is a large amount of free fluid or loculated fluid in the pelvis suggesting that there could be an enhancing rim surrounding this fluid is seen on image 127 and measures 10.6 x 6.1 cm. Bones/Soft Tissues: No significant findings identified. Lower thorax: Unremarkable. CA125 was 1153 U/mL. Had employee relations consultant onc evaluation and CT chest unremarkable. Underwent exploratory laparotomy, optimal tumor bulking, total abdominal hysterectomy, bilateral salpingo-oophorectomy, resection of bladder cul-de-sac and pelvic peritoneal disease along with resection of omental caking with super colic omentectomy on 10/06/2018. Pathology: FINAL DIAGNOSIS 1. 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 2. 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 3. Uterus, cervix, bilateral ovaries and fallopian tubes, and bladder/pelvic peritoneum, hysterectomy and excision (C) Left fallopian tube - High grade serous carcinoma (see comment and synoptic report). Right fallopian tube - Positive for involvement by high grade serous carcinoma. Bilateral ovaries - Positive for involvement by high grade serous carcinoma. Uterine serosa - Positive for involvement by high grade serous carcinoma. Bladder/pelvic peritoneum - Positive for involvement by high grade serous carcinoma. Endometrium - Inactive endometrium. Myometrium - Negative for malignancy. Cervix - Negative for malignancy. SYNOPTIC REPORT OF BRAUN PATHOLOGIC FINDINGS UTERUS, CERVIX, BILATERAL TUBES AND OVARIES, BLADDER, AND PELVIC PERITONEUM: Procedure: Total hysterectomy and bilateral salpingo-oophorectomy Omentectomy Peritoneal biopsies Specimen Integrity: Left fallopian tube serosa intact Primary Tumor Site: Left fallopian tube Ovarian Surface Involvement: Present Specify laterality (if applicable): Bilateral Fallopian Tube Surface Involvement: Present Specify laterality (if applicable): Bilateral Tumor Size: Greatest dimension: 1.6 cm Histologic Type: Serous carcinoma Histologic Grade: Not applicable Two-tier grading System: High grade Implants: Not applicable/not sampled Involvement of other tissues/organs: Right ovary Left ovary Right fallopian tube Pelvic peritoneum Omentum Other organs/tissues (specify): Uterine serosa Largest extrapelvic peritoneal focus, macroscopic (greater than 2 cm) Peritoneal Ascitic Fluid, Not submitted/unknown Treatment Effect: No known presurgical therapy Regional Lymph Nodes: No nodes submitted or found Pathologic Stage Classification (pTNM, AJCC 8th ed) TNM Descriptors: Not applicable Primary Tumor (pT): pT3c: Macroscopic peritoneal metastasis beyond pelvis more than 2 cm in greatest dimension with or without metastasis to the retroperitoneal lymph nodes (includes extension to capsule of liver and spleen without parenchymal involvement of either organ) Regional Lymph Nodes (pN): pNX: Cannot be assessed Distant Metastasis (pM): Not applicable/Not confirmed pathologically in this case Previous therapy: 1) 11/11/2018 - 02/03/2019: PACLITAXEL 80 D1,8,15 CARBOPLATIN 6 D1 - Q21D s/p 4 cycles. *neutropenia/thrombocytopenia causing treatment delay. Neulasta OnPro added; switch to Q21D dosing of Taxol with cycles 5 & 6 02/23/2019 - 03/17/2019: PACLITAXEL 135 D1 CARBOPLATIN 6 D1 - Q21D s/p 2 cycles. 2) 06/30/2019 - 06/20/2021: olaparib (LYNPARZA) 150 mg tablet; 300 mg BID. CTs 06/29/2022: Mesentery/Peritoneum: * New 0.4 cm anterior mesenteric fat nodule (8:57) * Confluent infiltrative soft tissue in RIGHT false pelvis surrounding the terminal ileum and ascending colon (cecum deep in pelvis) and probably affecting the sigmoid colon; difficult to precisely measure as it envelops bowel but including bowel measures approximately 4.5 x 2.9 cm (8:101); process extends to the RIGHT psoas muscle * Several small subtle anterior mesenteric fat nodules * No free abdominal fluid MRI pelvis 07/02/2022: Similar imaging findings since CT 06/29/2022, redemonstrating pelvic peritoneal/serosal carcinomatosis involving segments of bowel predominantly in the right anterior pelvis, with confluent soft tissue encasing the proximal ascending colon and causing relative upstream dilation of the low-lying cecum suggesting developing colonic obstruction. No small bowel dilation. No pelvic lymphadenopathy. 3) Carboplatin/paclitaxel x6 cycles. Completed 11/02/2022. Stable disease. 4) Doxil tolerated very well. PD 05/27/2023. 5) Elahere. PD. CTs 05/27/2023 demonstrated progression of disease with an increase in size of irregular soft tissue density in the right pelvis as well as increasing thickening of the wall of the cecum. Presented to the ED at [facility] about a week later. CT scan demonstrated possible cecal volvulus. She was transferred to [facility]. Managed nonsurgically with NG decompression. NG was removed on her second hospital day and her diet was advanced to clear liquids and then the following day advance to full liquids then to gastrointestinal soft diet on day 3. She was discharged home with plans for outpatient follow-up and colectomy with possible cytoreduction. Underwent open right hemicolectomy on 07/14/2023. Initially Dr. Dawson performed laparotomy and excised several lower pelvic lesions. Dr. Jes maldonado performed the right hemicolectomy. He observed kinking of the cecum, proximal ascending colon and some of the distal ileum coming together causing narrowing of the pedicle around which the colon was volvulized. Pathology: FINAL DIAGNOSIS A. 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 B. 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 C. 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 - Background small bowel with acute serositis, possibly procedure-related. - Appendix with fibrous obliteration. - Thirteen lymph nodes, negative for malignancy (0/13). D. Fascia, anterior abdominal wall, excision: - Fat necrosis with associated dystrophic calcification, negative for malignancy. Current therapy: 1) Topotecan with bevacizumab. Presents for ongoing oncologic management. Interim history: Mild progression of fingertip neuropathy. No nausea or vomiting. Appetite still doing well. Does not have early satiety. Perhaps mild bloating upper abdomen. Bowels working regularly. No signs of GI bleeding. Vision, pretty much back to normal. No shortness of breath or dry cough. PMH, medications and allergies personally reviewed by me today. Any changes documented in appropriate section. ROS: Constitutional: Denies episodes of fever and night sweats. Neuro: Denies MACHADO, vertigo, dizziness and imbalance. HEENT: No recent change in voice, vision or hearing. Resp: See above. CVS: Denies exertional chest pain, PND, orthopnea and LE edema. GI: Denies dysgeusia. Denies symptoms of stomatitis. : Denies dysuria or gross hematuria. Endo: Denies hot flashes. Denies polyuria and polydipsia. Denies heat and cold intolerance. Musculoskeletal: Denies bone, back, joint and muscular pain. Derm: Denies rash. Denies jaundice and diffuse pruritis. Heme: Denies unusual bleeding and unexplained bruising. Psych: Normal mood. PHYSICAL EXAM: Vitals: Blood pressure 142/59, pulse 73, temperature 36.5 C (97.7 F), temperature source Temporal, weight 56.2 kg (124 lb), SpO2 99%. Well-appearing and in no acute distress. EYES: Sclerae are anicteric bilaterally. No conjunctival injection. LYMPHATIC: No palpable cervical or supraclavicular adenopathy. RESPIRATORY: Inspiratory breath sounds are of normal intensity in all bernabe. There are no crackles, wheezes or rales. CARDIOVASCULAR: Rhythm is regular. ABDOMEN: The abdomen is slightly distended. The abdomen is soft and nontender throughout. No appreciable fluid wave. Extremities: No swelling of the LEs. SKIN: No jaundice or rash. LABS: CBC with diff: WBC 4.30 03/29/2024 RBC 3.78 03/29/2024 Hemoglobin 10.0 03/29/2024 Hematocrit 31.4 03/29/2024 MCV 83.1 03/29/2024 MCH 26.5 03/29/2024 MCHC 31.8 03/29/2024 RDW-CV 18.1 03/29/2024 Platelet Count 175 03/29/2024 MPV 9.7 03/29/2024 Neut% 57.4 03/29/2024 Lymph% 28.4 03/29/2024 [place]% 12.6 03/29/2024 Eosin% 1.2 03/29/2024 Baso% 0.2 03/29/2024 Abs Neut (ANC) 2.47 03/29/2024 Abs Lym 0.94 03/27/2019 Abs [place] 0.54 03/29/2024 Abs Eosin 0.05 03/29/2024 Abs Baso <0.03 03/29/2024 ASSESSMENT/PLAN: (C56.1, C56.2) Malignant neoplasm of both ovaries (HCC) (primary encounter diagnosis) Assessment: -KPS is 90% (due to recent surgery). -BRCA2 mutation (tested 04/2019). -Baseline CA125 1153 U/mL. -s/p right hemicolectomy with some tumor sampling/debulking. -FOLR1 IHC results--100% of cells stained +2-3+4 -Blood pressure under good control--home SBP lower. -Tolerating topotecan with bevacizumab very well. -UA trace proteinuria. -Mild anemia. -Reviewed CT images with her. Increase in ascites but this remains asymptomatic. CA125 can go up initially with new therapy resolution of small nodular abnormalities in the lungs. Overall stable disease. Plan:. -Okay for cycle #3 topotecan and bevacizumab tomorrow. -Monitor CA125 each cycle. -CTs following 4 cycles. Portions of this documentation were copied and pasted from previous office visit notes in order to provide a cohesive continuity of the history. The note has been reviewed and edited and updated as necessary. I spent a total of 20 minutes on the date of the service which included preparing to see the patient, [id number] patient care, completing clinical documentation, obtaining and/or reviewing separately obtained history, performing a medically appropriate examination, counseling and educating the patient/family/caregiver, ordering medications, tests, or procedures, communicating with other HCPs (not separately reported), and communicating results to the patient/family/caregiver. Js Cruz DO documented in this encounter [facility] 03-29-2024 History of Presen t illness Narrative Patient is here for IVAD port flush/blood draw per Nursing [facility] protocol. IVAD is located in right upper chest. Site cleansed with Chloraprep IVAD accessed with a #20 gauge 3/4 non-coring Gripper needle Flush with 5cc's Normal Saline. Blood Return: Good. 10 cc's blood aspirated and discarded. Blood drawn for CBC and CMP. Flushed with: 20 ml Normal Saline. Non-coring needle removed. Paper tape applied to puncture site. Site negative for redness, edema or tenderness. Patient tolerated procedure well. documented in this encounter [facility] 03-22-2024 History of Presen t illness Narrative Radiology Service Progress Note PATIENT NAME: Savana Patel DATE OF SERVICE: March 22, 2024 TIME: 1:57 PM PATIENT IDENTITY VERIFICATION COMPLETED USING TWO (2) IDENTIFIERS: Name and Date of confirmed by patient verbally. FALL SCREENING: Has the patient had 2 falls in the last year or 1 fall with injury or currently using an Ambulatory Assistive Device (Walker, Cane, Wheelchair, Crutches, etc.)? No PATIENT GENDER DATA: Female. status: : No status: NO. PATIENT RELEVANT IMPLANT DATA REVIEWED: Yes PATIENT PRESENTS WITH AN IMPLANTABLE OR ATTACHED FRETTED STRING INSTRUMENT REPAIRER: No RADIOLOGY DEPARTMENT: CT; Exam(s) Completed: Chest Abdomen Pelvis PERIPHERAL IV DATA: power port accessed by hemoc SIGNED BY: RT Laurie(R) March 22, 2024 1:57 PM documented in this encounter [facility] 03-22-2024 History of Presen t illness Narrative Patient is here for IVAD port flush per Nursing [facility] protocol. IVAD is located in left upper chest. Site cleansed with Chloraprep IVAD accessed with a #20 gauge 3/4 non-coring Gripper needle Blood Return: Good Flushed with: 20 ml Normal Saline Non-coring needle left intact for CT. Opsite applied to puncture site. Port site negative for redness, edema or tenderness. Patient tolerated procedure well. documented in this encounter [facility] 03-02-2024 History of Presen t illness Narrative Topotecan dose-reduced by Dr. Cruz today. documented in this encounter [facility] 03-01-2024 Instructions Shay Cardoza MD - 03/01/2024 10:04 AM EDT Try Body armor for fluid intake. Please get labs and urine test done on or after 08/18/2024 prior to your next visit. documented in this encounter [facility] 03-01-2024 History of Presen t illness Narrative Chief Complaint Patient presents with: F/U 6 months HPI Savana Patel is a 73 year old female who presents here today for 6 month follow up. Patient with Hx of HTN, impaired fasting blood sugar, hyperlipidemia, ovarian Ca with mets to the omentum, YESIKA with panic attacks, anemia as well as those reviewed and addressed below and in ROS Patient has been doing ok. Had appt with oncology yesterday. Past medical history, appointments, medications, allergies reviewed. Previous Medical History PAST MEDICAL HISTORY 04/12/2007: Actinic keratosis 08/24/2022: Advance directive discussed with patient Comment: Discussed 08/2022: Up to date 07/25/2016: DEANDRE positive Comment: Rheum felt just Arthritis. 06/16/2012: Arthritis of knee, right 01/08/2020: Bilateral hand numbness 05/02/2019: BRCA2 positive Comment: [id number] ([id number]) 11/01/2007: BREAST CANCER UPPER OUTER(Left, DCIS) Comment: Diagnosed 10/200707/14/2023: Carcinoma of fallopian tube, unspecified laterality (HCC) 10/06/2018: Carcinomatosis (HCC) 06/02/2023: Cecal volvulus (HCC) 07/13/2019: Chemotherapy-induced neuropathy (HCC) 02/18/2007: BOSTON ANGIOMA///NEVUS, NON-NEOPLASTIC 04/04/2015: Constipation 12/28/2007: Dysmetabolic syndrome X 04/04/2015: Essential hypertension 07/24/2020: GERD without esophagitis No date: Hemorrhage of gastrointestinal tract, unspecified 05/05/2018: History of left mastectomy 11/21/2007: Impaired fasting glucose No date: Internal hemorrhoids without mention of complication 09/02/2023: Iron deficiency anemia due to chronic blood loss 01/08/2020: Leg cramps 07/31/2021: Living will on file Comment: DPA: Javier ( ) 10/26/2018: Malignant neoplasm of both ovaries (HCC) 04/04/2015: Mixed hyperlipidemia 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 07/27/2016: Osteoarthritis of multiple joints 12/28/2012: Osteopenia 05/29/2008: Other acne 02/18/2007: Other seborrheic keratosis 07/18/2012: Panic attacks 01/29/2022: Primary insomnia 08/06/2023: S/P colectomy 02/18/2007: SOLAR LENGINES///DYSCHROMIA OTHER 01/29/2022: Thrombocytopenia (HCC) Comment: chronic 07/24/2020: Trigger ring finger of left hand 07/24/2020: Trigger ring finger of right hand Previous Surgical History PAST SURGICAL HISTORY 10/26/2007: BX BREAST PERC VACUUM/ROTN Comment: LEFT 07/20/2005: COLONOSCOPY FLX DX W/COLLJ SPEC WHEN PFRMD 05/01/2016: COLONOSCOPY FLX DX W/COLLJ SPEC WHEN PFRMD Comment: normal - 10 year follow up 06/2023: LAPAROSCOPIC HEMICOLECTOMY; Right No date: LIG/TRNSXJ FLP TUBE ABDL/VAG APPR UNI/BI Comment: Tubal ligation 11/2007: MAST RAD W/PECTORAL MUSCLES AXILLARY LYMPH NODES Comment: Left No date: PAST SURGICAL HISTORY OF Comment: BACK SURGERY 10/06/2018: PAST SURGICAL HISTORY OF Comment: Exploratory laparotomy, total abdominal hysterectomy, bilateral salpingooophorectomy, and bladder and posterior culdesac peritoneum resected en bloc, omentectomy 10/26/2007: [facility] CLIP,PERC,DURING BREAST BX Comment: LEFT 11/09/2018: S PORT-A-CATH [id number] No date: TONSILLECTOMY PRIMARY/SECONDARY <AGE 12 Comment: Tonsillectomy Family History FAMILY HISTORY Problem Relation Age of Onset Ovarian cancer Mother dx 50s Arthritis Father Cancer Maternal Aunt 7 aunts with breast or ovarian cancer. details unknown Patient Allergies ALLERGIES Allergen Reactions Penicillins Rash Sulfa (Sulfonamide * Unknown Current Medications Current Outpatient Medications on File Prior to Visit Medication Sig iv contrast (will be provided with radiology test) CT Chest ABD/PEL-Inject, intravenously, once for 1 dose.No IV access, insert saline lock prior to the beginning of sedation, infusion, injection of imaging exam. Discontinue saline lock post exam. If Pt. has a central line or IVAD, may access for administration according to line specific nursing protocol. Once exam is complete flush line and de-access according to line specific nursing protocol in the CT contrast administration guidelines link. enteric contrast (will be provided with radiology test) For CT CHESTABD/PEL W IVCON Routine order Administer, As Directed One Time Only, via Oral, Rectal, both Oral and Rectal, Enteric Tube, Stoma or Indwelling Catheter, Enteric Contrast as designated per enteric contrast guidelines cephALEXin (KEFLEX) 500 mg capsule Take 500 mg by mouth three times a day. dicyclomine (BENTYL) 10 mg capsule Take 1 capsule by mouth three times a day. (Patient not taking: Reported on 02/29/2024) ondansetron (ZOFRAN) 8 mg tablet Take 1 tablet by mouth every 8 hours as needed for nausea/vomiting. difluprednate (DUREZOL) 0.05 % ophthalmic suspension INSTILL 1 DROP INTO EACH EYE 4 TIMES DAILY (Patient not taking: Reported on 02/29/2024) carboxymethyl/glycerin/poly80 (REFRESH DIGITAL OPHTHALMIC) Use 1 Drop in eyes as needed. (Patient not taking: Reported on 02/29/2024) erythromycin (ROMYCIN) 5 mg/gram (0.5 %) ophthalmic ointment Use 1 application in both eyes daily at bedtime. (Patient not taking: Reported on 02/29/2024) acetaminophen (TYLENOL) 500 mg tablet Take 2 tablets by mouth every 8 hours. docusate sodium (COLACE ORAL) Take 1 tablet by mouth once daily as needed. Current Facility-Administered Medications on File Prior to Visit Medication perflutren lipid microspheres 1.3 mL in NaCl (PF) 0.9% 10 mL injection (DEFINITY) sodium chloride 0.9 % (flush) 10 mL (BD POSIFLUSH) perflutren lipid microspheres 1.3 mL in NaCl (PF) 0.9% 10 mL injection (DEFINITY) sodium chloride 0.9 % (flush) 10 mL (BD POSIFLUSH) Social History Social History Tobacco Use Smoking status: Never Passive exposure: Never Smokeless tobacco: Never Vaping Use Vaping status: Never Used Substance Use Topics Alcohol use: No Drug use: No Review of Symptoms REVIEW OF SYSTEMS GENERAL: No weight loss, malaise or fevers NECK: Negative for lumps, goiter, pain and significant neck swelling RESPIRATORY: Negative for cough, hemoptysis, wheezing, COPD, dyspnea or shortness of breath CARDIOVASCULAR: Negative for chest pain, leg swelling, hypertension, CHF or palpitations GI: No nausea, vomiting, or diarrhea and No heartburn or reflux symptoms Endo: some thirst. Neuro: neg on review. EXAM: BP 130/62 (BP Site: Left Arm, BP Position: Sitting, BP Cuff Size: Regular Adult) Pulse 60 Temp 36.5 C (97.7 F) Resp 18 Wt 57.2 kg (126 lb) SpO2 100% BMI 21.25 kg/m Last 4 Encounter Wt Readings: Date: Wt: 03/01/2024 57.2 kg (126 lb) 02/29/2024 56.2 kg (124 lb) 02/16/2024 57.4 kg (126 lb 8 oz) 02/10/2024 57.8 kg (127 lb 8 oz) General Appearance: Well appearing, alert, in no acute distress, well-hydrated, well nourished.. Neck: Supple, no adenopathy; thyroid symmetric, normal size, no bruits. Lungs: Lungs clear to auscultation. No wheezing, rhonchi, rales.. Heart: RRR without murmur, gallop, or rubs. No ectopy. Abdomen: Normal abdominal exam, Abdomen soft, non-tender. Bowel sounds normal. No masses, organomegaly. Extremities: No deformities, edema, skin discoloration, Good capillary refill. . Peripheral Pulses: Normal. Health Maintenance List Depression Screening Never done BP Controlled (<130/80) Never done Cervical Cancer Screening due on 02/11/2018 Mammogram Screening due on 08/29/2023 Covid-19 Vaccine( season) due on 02/20/2024 DTaP,Tdap,Td Vaccine(2 - Td or Tdap) due on 08/25/2024 RSV Vaccine(1 - 1-dose 60+ series) due on 08/25/2024 Shingrix Vaccine(1 of 2) due on 08/25/2024 Annual PCP Team Chronic Disease Visit due on 08/25/2024 Diabetes Screening due on 02/28/2027 Lipid Screening due on 08/25/2028 Colorectal Cancer Screening due on 07/07/2033 Bone Density Screening Completed Advance Directive Discussion Completed Hepatitis C Screening Completed Pneumococcal Vaccine: 65+ Completed HPV Vaccine Aged Out Influenza Vaccine Discontinued Data reviewed Latest Ref Rng 08/26/2023 02/04/2024 02/16/2024 02/29/2024 WBC 3.70 - 11.00 k/uL 2.08 (L) 2.80 (L) RBC 3.90 - 5.20 m/uL 3.67 (L) 3.66 (L) Hemoglobin 11.5 - 15.5 g/dL 9.9 (L) 9.8 (L) Hematocrit 36.0 - 46.0 % 30.8 (L) 30.2 (L) MCV 80.0 - 100.0 fL 83.9 82.5 MCH 26.0 - 34.0 pg 27.0 26.8 MCHC 30.5 - 36.0 g/dL 32.1 32.5 RDW-CV 11.5 - 15.0 % 14.2 15.3 (H) Platelet Count 150 - 400 k/uL 75 (L) 260 MPV 9.0 - 12.7 fL 9.2 9.3 Neut% % 54.7 37.1 Abs Neut (ANC) 1.45 - 7.50 k/uL 1.14 (L) 1.04 (L) Lymph% % 40.4 41.8 Abs Lymph 1.00 - 4.00 k/uL 0.84 (L) 1.17 [place]% % 3.4 18.9 Abs [place] <0.87 k/uL 0.07 0.53 Eosin% % 0.5 1.1 Abs Eosin <0.46 k/uL <0.03 0.03 Baso% % 0.5 0.4 Abs Baso <0.11 k/uL <0.03 <0.03 Immature Gran % % 0.5 0.7 IMMATURE GRANS (ABS) <0.10 k/uL <0.03 <0.03 NRBC /100 WBC 0.0 0.0 Absolute nRBC <0.01 k/uL <0.01 <0.01 DTYPE Auto Auto Color Yellow Yellow Clarity Clear Clear Glucose, Urine Negative Negative Bilirubin, Urine Negative Negative Ketones, Urine Negative Negative Specific [place], Ur 1.005 - 1.030 1.023 Hemoglobin/Blood,Ur Negative Negative pH, Urine <8.5 6.5 Protein, Urine Negative Trace ! Urobilinogen 0.2-1.0 EU/dL 1.0 EU/dL Nitrites Negative Negative Leukest Negative Trace ! WBC, Urine 0-5 /HPF 0-5 /HPF RBC, Urine 0-2 /HPF 0-2 /HPF Bacteria Negative /HPF Negative Epithelial Cells /HPF None Seen Hyaline Cast 0 /LPF 0 /LPF Protein, Total 6.3 - 8.0 g/dL 6.9 Albumin 3.9 - 4.9 g/dL 3.9 Calcium 8.5 - 10.2 mg/dL 9.6 Bilirubin, Total 0.2 - 1.3 mg/dL 0.5 Alkaline Phosphatase 34 - 123 U/L 89 AST 13 - 35 U/L 40 (H) ALT 7 - 38 U/L 32 Glucose 74 - 99 mg/dL 98 BUN 7 - 21 mg/dL 20 Creatinine 0.58 - 0.96 mg/dL 0.67 Sodium 136 - 144 mmol/L 137 Potassium 3.7 - 5.1 mmol/L 4.1 Chloride 98 - 107 mmol/L 105 CO2 22 - 30 mmol/L 24 Anion Gap 8 - 15 mmol/L 8 eGFR >=60 mL/min/1.73m 92 Total Cholesterol, Nonfasting <200 mg/dL 169 Triglycerides, Nonfasting <150 mg/dL 113 HDL Cholesterol, Nonfasting >39 mg/dL 46 LDL Cholesterol, Nonfasting <100 mg/dL 100 (H) Non HDL Cholesterol, Nonfasting <130 mg/dL 123 VLDL Cholesterol, Nonfasting <30 mg/dL 23 Total Chol/HDL Ratio, Nonfasting <5.10 mg/dL 3.67 LDL/HDL Ratio, Nonfasting <2.54 mg/dL 2.17 Hemoglobin A1C 4.3 - 5.6 % 4.5 Estimated Average Glucose mg/dL 82 A/P ASSESSMENT/PLAN: 1. Essential hypertension - ICD9: 401.9, ICD10: I10 (primary diagnosis) - Controlled - Continue current medications - Recommend home blood pressure monitoring, to bring results to next visit - Encouraged sodium restriction, DASH or Mediterranean diet - Recommend regular aerobic exercise 2. Mixed hyperlipidemia - ICD9: 272.2, ICD10: E78.2 - Controlled - Counseled on healthy diet and regular exercise 3. Impaired fasting glucose - ICD9: 790.21, ICD10: R73.01 - improved with life style changes. 4. GERD without esophagitis - ICD9: 530.81, ICD10: K21.9 - controlled with diet. 5. Panic attacks - ICD9: 300.01, ICD10: F41.0 - has been doing fine. No recent issues. Spirits and mood are good. F/u 6 months extensive. Check CMP, Lipid, UA, A1c prior Shay Cardoza MD documented in this encounter 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 Initially underwent pelvic ultrasound on 09/01/2018. Uterus appeared normal. The endometrial stripe was 2.3 mm. Right and left ovaries appeared normal. However there was a large amount of free fluid in the pelvic cul-de-sac. CT A/P 09/08/2018: Liver: No mass. Homogeneous texture. Biliary: No ductal dilatation is seen. Gallbladder is unremarkable. Spleen: Spleen is unremarkable. Pancreas: No mass or duct dilation. Adrenals: Adrenal glands are unremarkable. Kidneys: No mass, calculus or hydronephrosis is seen. GI tract: No bowel dilatation is seen. No evidence of obstruction. Lymph nodes: No evidence of adenopathy. Mesentery/Peritoneum: There is increased soft tissue density best seen in the coronal views extending from the lower abdomen into the pelvic area. This could represent peritoneal involvement with tumor. This is seen on coronal image 37 and axial images 99 through 122. It extends across the anterior aspect of the pelvic area seen on axial image 124. Vasculature: No evidence of dilatation of the abdominal aorta. CT PELVIS: Pelvis: There is a large amount of free fluid or loculated fluid in the pelvis suggesting that there could be an enhancing rim surrounding this fluid is seen on image 127 and measures 10.6 x 6.1 cm. Bones/Soft Tissues: No significant findings identified. Lower thorax: Unremarkable. CA125 was 1153 U/mL. Had employee relations consultant onc evaluation and CT chest unremarkable. Underwent exploratory laparotomy, optimal tumor bulking, total abdominal hysterectomy, bilateral salpingo-oophorectomy, resection of bladder cul-de-sac and pelvic peritoneal disease along with resection of omental caking with super colic omentectomy on 10/06/2018. Pathology: FINAL DIAGNOSIS 1. 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 2. 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 3. Uterus, cervix, bilateral ovaries and fallopian tubes, and bladder/pelvic peritoneum, hysterectomy and excision (C) Left fallopian tube - High grade serous carcinoma (see comment and synoptic report). Right fallopian tube - Positive for involvement by high grade serous carcinoma. Bilateral ovaries - Positive for involvement by high grade serous carcinoma. Uterine serosa - Positive for involvement by high grade serous carcinoma. Bladder/pelvic peritoneum - Positive for involvement by high grade serous carcinoma. Endometrium - Inactive endometrium. Myometrium - Negative for malignancy. Cervix - Negative for malignancy. SYNOPTIC REPORT OF BRAUN PATHOLOGIC FINDINGS UTERUS, CERVIX, BILATERAL TUBES AND OVARIES, BLADDER, AND PELVIC PERITONEUM: Procedure: Total hysterectomy and bilateral salpingo-oophorectomy Omentectomy Peritoneal biopsies Specimen Integrity: Left fallopian tube serosa intact Primary Tumor Site: Left fallopian tube Ovarian Surface Involvement: Present Specify laterality (if applicable): Bilateral Fallopian Tube Surface Involvement: Present Specify laterality (if applicable): Bilateral Tumor Size: Greatest dimension: 1.6 cm Histologic Type: Serous carcinoma Histologic Grade: Not applicable Two-tier grading System: High grade Implants: Not applicable/not sampled Involvement of other tissues/organs: Right ovary Left ovary Right fallopian tube Pelvic peritoneum Omentum Other organs/tissues (specify): Uterine serosa Largest extrapelvic peritoneal focus, macroscopic (greater than 2 cm) Peritoneal Ascitic Fluid, Not submitted/unknown Treatment Effect: No known presurgical therapy Regional Lymph Nodes: No nodes submitted or found Pathologic Stage Classification (pTNM, AJCC 8th ed) TNM Descriptors: Not applicable Primary Tumor (pT): pT3c: Macroscopic peritoneal metastasis beyond pelvis more than 2 cm in greatest dimension with or without metastasis to the retroperitoneal lymph nodes (includes extension to capsule of liver and spleen without parenchymal involvement of either organ) Regional Lymph Nodes (pN): pNX: Cannot be assessed Distant Metastasis (pM): Not applicable/Not confirmed pathologically in this case Previous therapy: 1) 11/11/2018 - 02/03/2019: PACLITAXEL 80 D1,8,15 CARBOPLATIN 6 D1 - Q21D s/p 4 cycles. *neutropenia/thrombocytopenia causing treatment delay. Neulasta OnPro added; switch to Q21D dosing of Taxol with cycles 5 & 6 02/23/2019 - 03/17/2019: PACLITAXEL 135 D1 CARBOPLATIN 6 D1 - Q21D s/p 2 cycles. 2) 06/30/2019 - 06/20/2021: olaparib (LYNPARZA) 150 mg tablet; 300 mg BID. CTs 06/29/2022: Mesentery/Peritoneum: * New 0.4 cm anterior mesenteric fat nodule (8:57) * Confluent infiltrative soft tissue in RIGHT false pelvis surrounding the terminal ileum and ascending colon (cecum deep in pelvis) and probably affecting the sigmoid colon; difficult to precisely measure as it envelops bowel but including bowel measures approximately 4.5 x 2.9 cm (8:101); process extends to the RIGHT psoas muscle * Several small subtle anterior mesenteric fat nodules * No free abdominal fluid MRI pelvis 07/02/2022: Similar imaging findings since CT 06/29/2022, redemonstrating pelvic peritoneal/serosal carcinomatosis involving segments of bowel predominantly in the right anterior pelvis, with confluent soft tissue encasing the proximal ascending colon and causing relative upstream dilation of the low-lying cecum suggesting developing colonic obstruction. No small bowel dilation. No pelvic lymphadenopathy. 3) Carboplatin/paclitaxel x6 cycles. Completed 11/02/2022. Stable disease. Recommended to retry carbo/paclitaxel with potential addition michael if disease clears the bowel. 4) Doxil tolerated very well. PD 05/27/2023. 5) Elahere. CTs 05/27/2023 demonstrated progression of disease with an increase in size of irregular soft tissue density in the right pelvis as well as increasing thickening of the wall of the cecum. Presented to the ED at [facility] about a week later. CT scan demonstrated possible cecal volvulus. She was transferred to [facility]. Managed nonsurgically with NG decompression. NG was removed on her second hospital day and her diet was advanced to clear liquids and then the following day advance to full liquids then to gastrointestinal soft diet on day 3. She was discharged home with plans for outpatient follow-up and colectomy with possible cytoreduction. Underwent open right hemicolectomy on 07/14/2023. Initially Dr. Dawson performed laparotomy and excised several lower pelvic lesions. Dr. Jes maldonado performed the right hemicolectomy. He observed kinking of the cecum, proximal ascending colon and some of the distal ileum coming together causing narrowing of the pedicle around which the colon was volvulized. Pathology: FINAL DIAGNOSIS A. 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 B. 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 C. 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 - Background small bowel with acute serositis, possibly procedure-related. - Appendix with fibrous obliteration. - Thirteen lymph nodes, negative for malignancy (0/13). D. Fascia, anterior abdominal wall, excision: - Fat necrosis with associated dystrophic calcification, negative for malignancy. Current therapy: 1) topotecan with bevacizumab. Presents for ongoing oncologic management. Interim history: PD on Elahere. Received first cycle of topotecan and Avastin. No worsening of neuropathy. No nausea or vomiting. Appetite doing well. Bowels working regularly. No signs of GI bleeding. Occasional diarrhea if has dairy products. No issues with vision currently. No shortness of breath or dry cough. PMH, medications and allergies personally reviewed by me today. Any changes documented in appropriate section. ROS: Constitutional: Denies episodes of fever and night sweats. Neuro: Denies MACHADO, vertigo, dizziness and imbalance. HEENT: No recent change in voice, vision or hearing. Resp: See above. CVS: Denies exertional chest pain, PND, orthopnea and LE edema. GI: Denies dysgeusia. Denies symptoms of stomatitis. : Denies dysuria or gross hematuria. Endo: Denies hot flashes. Denies polyuria and polydipsia. Denies heat and cold intolerance. Musculoskeletal: Denies bone, back, joint and muscular pain. Derm: Denies rash. Denies jaundice and diffuse pruritis. Heme: Denies unusual bleeding and unexplained bruising. Psych: Normal mood. PHYSICAL EXAM: Vitals: Blood pressure 130/75, pulse (!) 59, temperature 36.6 C (97.9 F), temperature source Temporal, weight 56.5 kg (124 lb 8 oz), SpO2 98%. Well-appearing and in no acute distress. EYES: Sclerae are anicteric bilaterally. No conjunctival injection. LYMPHATIC: No palpable cervical or supraclavicular adenopathy. RESPIRATORY: Inspiratory breath sounds are of normal intensity in all bernabe. There are no crackles, wheezes or rales. CARDIOVASCULAR: Rhythm is regular. ABDOMEN: The abdomen is nondistended. The abdomen is soft and nontender throughout. No mass or fluid wave. Extremities: No swelling of the LEs. SKIN: No jaundice or rash. LABS: ASSESSMENT/PLAN: (C56.1, C56.2) Malignant neoplasm of both ovaries (HCC) (primary encounter diagnosis) Assessment: -KPS is 90% (due to recent surgery). -BRCA2 mutation (tested 04/2019). -Baseline CA125 1153 U/mL. -s/p right hemicolectomy with some tumor sampling/debulking. -FOLR1 IHC results--100% of cells stained +2-3+4 -Blood pressure under excellent control. -Tolerating topotecan with bevacizumab very well. -UA trace proteinuria. -Moderate anemia. -Mild neutropenia. Plan:. -Okay for cycle #2 topotecan and bevacizumab on pending repeat CBC results. -Monitor CA125 each cycle. -CTs following 2 cycles. Portions of this documentation were copied and pasted from previous office visit notes in order to provide a cohesive continuity of the history. The note has been reviewed and edited and updated as necessary. I spent a total of 20 minutes on the date of the service which included preparing to see the patient, [id number] patient care, completing clinical documentation, obtaining and/or reviewing separately obtained history, performing a medically appropriate examination, counseling and educating the patient/family/caregiver, ordering medications, tests, or procedures, communicating with other HCPs (not separately reported), and communicating results to the patient/family/caregiver. Js Cruz DO documented in this encounter [facility] 02-24-2024 Telephone encounter Note Noted. Thank you. Js Cruz DO [facility] 02-24-2024 Miscellaneous Notes Noted. Thank you. Js Cruz DO [facility] Care Coordination FOLLOW-UP NOTE Patient identified by name and date of . YES Spoke to patient Summary: (Reason for follow-up) Follow-up on question Concerns: (New Barriers to care) Patient stated she has an infection in her gums or between her teeth d/t food getting trapped. It started out as soreness then she developed pain that went up past my ears. Patient denies fever or chills. Patient stated she is being treated with keflex for 1 week and she is using a Waterpik. Patient denies the need for surgery or extraction. Patient informed she can take the keflex as directed. She will be seeing Dr. Cruz next week. Patient verbalized when to seek Medical Attention and an understanding of after- hours phone number and process: Yes Care Coordination Plan: No further follow up needed at this time Doreen Jerome RN February 24, 2024 Patient states her dentist prescribed Keflex 500 mg. She is asking if this is okay to take. documented in this encounter [facility] 02-24-2024 Telephone encounter Note Oscar Care Coordination FOLLOW-UP NOTE Patient identified by name and date of . YES Spoke to patient Summary: (Reason for follow-up) Follow-up on question Concerns: (New Barriers to care) Patient stated she has an infection in her gums or between her teeth d/t food getting trapped. It started out as soreness then she developed pain that went up past my ears. Patient denies fever or chills. Patient stated she is being treated with keflex for 1 week and she is using a Waterpik. Patient denies the need for surgery or extraction. Patient informed she can take the keflex as directed. She will be seeing Dr. Cruz next week. Patient verbalized when to seek Medical Attention and an understanding of after- hours phone number and process: Yes Care Coordination Plan: No further follow up needed at this time Doreen Jerome RN February 24, [address]24 [facility] 02-24-2024 Telephone encounter Note Patient states her dentist prescribed Keflex 500 mg. She is asking if this is okay to take. [facility] Work Phone: 02-16-2024 History of Presen t illness Narrative Per Dr.Masci OK to obtain UA once a month. documented in this encounter [facility] 02-09-2024 Telephone encounter Note Patient notified and verbalized understanding. Beatrice Chu LPN [facility] 02-09-2024 Miscellaneous Notes Patient notified and verbalized understanding. Beatrice Chu LPN I sent in the prescription for Bentyl for her to use as needed. Nothing I can think of is for as a premed although she could take Bentyl about an hour before getting chemotherapy. CYCLE 1/DAY 1 POST TREATMENT CALL Today's date: February 08, 2024 Treatment Regimen: Avastin/Topotecan C1D1 Date: 02/04/24 Called patient to follow-up on symptom management. Spoke with patient SYMPTOM ASSESSMENT Neuro: Neuropathy: feels like the neuropathy is worse. Patient stated if she goes to pick up attendant a pen or flip a page she has issues. Or holding a knife she has issues with that. CV/Resp: Denies SOB or cough GI/: Right after treatment she had bloating, belching, and a lot pressure on rectum; resolved. Patient stated my temperature started to rise on Wednesday night so she called the after hour number and spoke to Dr. Cruz who felt it was normal so patient monitored symptoms. Last night patient had belching, nauseated, diarrhea, took Zofran which alleviated the nausea. Uncomfortable laying on back or sides (both) eased up after taking Zofran. Two episodes of diarrhea last night, none today. Resolved without medication. Denies gas or bloating today. Advised gas-x, beano, or Mylanta. Patient stated she will take Mylanta if she has bloating/gas again. Appetite: good, ham/potatoes for lunch, egg salad for dinner. Denies eating something that is different from her usual diet. Integument: None Activity: Good Pain: No=0 (pain 0 on a scale of 0-10). Fever: No temperature was 99 F on Wednesday evening, temperature never went over 100.4 F. Chills: No Blood pressure: 118/65 Pulse: 64 Any new referrals needed? No Reinforced CURRENT treatment education based on current and anticipated symptoms. Discussed port/line care and patient verbalizes understanding: Yes Patient instructed to contact office or after hours Hematology/Oncology fellow for: temperature ? 100.4; questions or concerns. Patient verbalized understanding of when to seek medical attention and after hours number protocol. Doreen Jerome RN CYCLE 1/DAY 1 POST TREATMENT CALL Today's date: February 07, 2024 Treatment Regimen: Avastin/Topotecan C1D1 Date: 02/04/24 Called patient to follow-up on symptom management, no answer, left a VM requesting a call back from patient. Doreen Jerome RN documented in this encounter [facility] 02-08-2024 Telephone encounter Note I sent in the prescription for Bentyl for her to use as needed. Nothing I can think of is for as a premed although she could take Bentyl about an hour before getting chemotherapy. [facility] 02-08-2024 Telephone encounter Note CYCLE 1/DAY 1 POST TREATMENT CALL Today's date: February 08, 2024 Treatment Regimen: Avastin/Topotecan C1D1 Date: 02/04/24 Called patient to follow-up on symptom management. Spoke with patient SYMPTOM ASSESSMENT Neuro: Neuropathy: feels like the neuropathy is worse. Patient stated if she goes to pick up attendant a pen or flip a page she has issues. Or holding a knife she has issues with that. CV/Resp: Denies SOB or cough GI/: Right after treatment she had bloating, belching, and a lot pressure on rectum; resolved. Patient stated my temperature started to rise on Wednesday night so she called the after hour number and spoke to Dr. Cruz who felt it was normal so patient monitored symptoms. Last night patient had belching, nauseated, diarrhea, took Zofran which alleviated the nausea. Uncomfortable laying on back or sides (both) eased up after taking Zofran. Two episodes of diarrhea last night, none today. Resolved without medication. Denies gas or bloating today. Advised gas-x, beano, or Mylanta. Patient stated she will take Mylanta if she has bloating/gas again. Appetite: good, ham/potatoes for lunch, egg salad for dinner. Denies eating something that is different from her usual diet. Integument: None Activity: Good Pain: No=0 (pain 0 on a scale of 0-10). Fever: No temperature was 99 F on Wednesday evening, temperature never went over 100.4 F. Chills: No Blood pressure: 118/65 Pulse: 64 Any new referrals needed? No Reinforced CURRENT treatment education based on current and anticipated symptoms. Discussed port/line care and patient verbalizes understanding: Yes Patient instructed to contact office or after hours Hematology/Oncology fellow for: temperature ? 100.4; questions or concerns. Patient verbalized understanding of when to seek medical attention and after hours number protocol. Doreen Jerome RN [facility] 02-07-2024 Telephone encounter Note CYCLE 1/DAY 1 POST TREATMENT CALL Today's date: February 07, 2024 Treatment Regimen: Avastin/Topotecan C1D1 Date: 02/04/24 Called patient to follow-up on symptom management, no answer, left a VM requesting a call back from patient. Doreen Jerome RN [facility] [facility] History of Presen t illness Narrative Urine protein negative Latoya Nathan RN documented in this encounter [facility] 01-31-2024 Telephone encounter Note The following approved medication requests have been transmitted electronically. Requested Prescriptions Signed Prescriptions Disp Refills ondansetron (ZOFRAN) 8 mg tablet 30 tablet 2 Sig: Take 1 tablet by mouth every 8 hours as needed for nausea/vomiting. Authorizing Provider: JS CRUZ DO [facility] 01-31-2024 Miscellaneous Notes The following approved medication requests have been transmitted electronically. Requested Prescriptions Signed Prescriptions Disp Refills ondansetron (ZOFRAN) 8 mg tablet 30 tablet 2 Sig: Take 1 tablet by mouth every 8 hours as needed for nausea/vomiting. Authorizing Provider: JS CRUZ DO Rx pended. Beatrice Chu LPN Patient is calling to report she has no Zofran at home and would need a script for this sent to [facility] in [place]. documented in this encounter [facility] 01-31-2024 Telephone encounter Note Rx pended. Beatrice Chu LPN [facility] 01-31-2024 Telephone encounter Note Patient is calling to report she has no Zofran at home and would need a script for this sent to [facility] in [place]. [facility] 01-28-2024 Telephone encounter Note ONCOLOGY PATIENT EDUCATION NOTE TOPIC: Chemotherapy, Medications: Topotecan/Avastin patient and spouse here today for education for treatment of Ovarian Cancer Anticipated/Scheduled start date: 02/03 Patient was given a folder with topotecan and avastin information. No need for full chemotherapy education visit, patient had avastin in the past. Reviewed common side effects. Advised patient to call this nurse if she needs a refill on antiemetic. Doreen Jerome RN [facility] 01-28-2024 Miscellaneous Notes ONCOLOGY PATIENT EDUCATION NOTE TOPIC: Chemotherapy, Medications: Topotecan/Avastin patient and spouse here today for education for treatment of Ovarian Cancer Anticipated/Scheduled start date: 02/03 Patient was given a folder with topotecan and avastin information. No need for full chemotherapy education visit, patient had avastin in the past. Reviewed common side effects. Advised patient to call this nurse if she needs a refill on antiemetic. Doreen Jerome RN documented in this encounter 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 Initially underwent pelvic ultrasound on 09/01/2018. Uterus appeared normal. The endometrial stripe was 2.3 mm. Right and left ovaries appeared normal. However there was a large amount of free fluid in the pelvic cul-de-sac. CT A/P 09/08/2018: Liver: No mass. Homogeneous texture. Biliary: No ductal dilatation is seen. Gallbladder is unremarkable. Spleen: Spleen is unremarkable. Pancreas: No mass or duct dilation. Adrenals: Adrenal glands are unremarkable. Kidneys: No mass, calculus or hydronephrosis is seen. GI tract: No bowel dilatation is seen. No evidence of obstruction. Lymph nodes: No evidence of adenopathy. Mesentery/Peritoneum: There is increased soft tissue density best seen in the coronal views extending from the lower abdomen into the pelvic area. This could represent peritoneal involvement with tumor. This is seen on coronal image 37 and axial images 99 through 122. It extends across the anterior aspect of the pelvic area seen on axial image 124. Vasculature: No evidence of dilatation of the abdominal aorta. CT PELVIS: Pelvis: There is a large amount of free fluid or loculated fluid in the pelvis suggesting that there could be an enhancing rim surrounding this fluid is seen on image 127 and measures 10.6 x 6.1 cm. Bones/Soft Tissues: No significant findings identified. Lower thorax: Unremarkable. CA125 was 1153 U/mL. Had employee relations consultant onc evaluation and CT chest unremarkable. Underwent exploratory laparotomy, optimal tumor bulking, total abdominal hysterectomy, bilateral salpingo-oophorectomy, resection of bladder cul-de-sac and pelvic peritoneal disease along with resection of omental caking with super colic omentectomy on 10/06/2018. Pathology: FINAL DIAGNOSIS 1. 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 2. 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 3. Uterus, cervix, bilateral ovaries and fallopian tubes, and bladder/pelvic peritoneum, hysterectomy and excision (C) Left fallopian tube - High grade serous carcinoma (see comment and synoptic report). Right fallopian tube - Positive for involvement by high grade serous carcinoma. Bilateral ovaries - Positive for involvement by high grade serous carcinoma. Uterine serosa - Positive for involvement by high grade serous carcinoma. Bladder/pelvic peritoneum - Positive for involvement by high grade serous carcinoma. Endometrium - Inactive endometrium. Myometrium - Negative for malignancy. Cervix - Negative for malignancy. SYNOPTIC REPORT OF BRAUN PATHOLOGIC FINDINGS UTERUS, CERVIX, BILATERAL TUBES AND OVARIES, BLADDER, AND PELVIC PERITONEUM: Procedure: Total hysterectomy and bilateral salpingo-oophorectomy Omentectomy Peritoneal biopsies Specimen Integrity: Left fallopian tube serosa intact Primary Tumor Site: Left fallopian tube Ovarian Surface Involvement: Present Specify laterality (if applicable): Bilateral Fallopian Tube Surface Involvement: Present Specify laterality (if applicable): Bilateral Tumor Size: Greatest dimension: 1.6 cm Histologic Type: Serous carcinoma Histologic Grade: Not applicable Two-tier grading System: High grade Implants: Not applicable/not sampled Involvement of other tissues/organs: Right ovary Left ovary Right fallopian tube Pelvic peritoneum Omentum Other organs/tissues (specify): Uterine serosa Largest extrapelvic peritoneal focus, macroscopic (greater than 2 cm) Peritoneal Ascitic Fluid, Not submitted/unknown Treatment Effect: No known presurgical therapy Regional Lymph Nodes: No nodes submitted or found Pathologic Stage Classification (pTNM, AJCC 8th ed) TNM Descriptors: Not applicable Primary Tumor (pT): pT3c: Macroscopic peritoneal metastasis beyond pelvis more than 2 cm in greatest dimension with or without metastasis to the retroperitoneal lymph nodes (includes extension to capsule of liver and spleen without parenchymal involvement of either organ) Regional Lymph Nodes (pN): pNX: Cannot be assessed Distant Metastasis (pM): Not applicable/Not confirmed pathologically in this case Previous therapy: 1) 11/11/2018 - 02/03/2019: PACLITAXEL 80 D1,8,15 CARBOPLATIN 6 D1 - Q21D s/p 4 cycles. *neutropenia/thrombocytopenia causing treatment delay. Neulasta OnPro added; switch to Q21D dosing of Taxol with cycles 5 & 6 02/23/2019 - 03/17/2019: PACLITAXEL 135 D1 CARBOPLATIN 6 D1 - Q21D s/p 2 cycles. 2) 06/30/2019 - 06/20/2021: olaparib (LYNPARZA) 150 mg tablet; 300 mg BID. CTs 06/29/2022: Mesentery/Peritoneum: * New 0.4 cm anterior mesenteric fat nodule (8:57) * Confluent infiltrative soft tissue in RIGHT false pelvis surrounding the terminal ileum and ascending colon (cecum deep in pelvis) and probably affecting the sigmoid colon; difficult to precisely measure as it envelops bowel but including bowel measures approximately 4.5 x 2.9 cm (8:101); process extends to the RIGHT psoas muscle * Several small subtle anterior mesenteric fat nodules * No free abdominal fluid MRI pelvis 07/02/2022: Similar imaging findings since CT 06/29/2022, redemonstrating pelvic peritoneal/serosal carcinomatosis involving segments of bowel predominantly in the right anterior pelvis, with confluent soft tissue encasing the proximal ascending colon and causing relative upstream dilation of the low-lying cecum suggesting developing colonic obstruction. No small bowel dilation. No pelvic lymphadenopathy. 3) Carboplatin/paclitaxel x6 cycles. Completed 11/02/2022. Stable disease. Recommended to retry carbo/paclitaxel with potential addition michael if disease clears the bowel. 4) Doxil tolerated very well. PD 05/27/2023. 5) Elahere. Current therapy: CTs 05/27/2023 demonstrated progression of disease with an increase in size of irregular soft tissue density in the right pelvis as well as increasing thickening of the wall of the cecum. Presented to the ED at [facility] about a week later. CT scan demonstrated possible cecal volvulus. She was transferred to [facility]. Managed nonsurgically with NG decompression. NG was removed on her second hospital day and her diet was advanced to clear liquids and then the following day advance to full liquids then to gastrointestinal soft diet on day 3. She was discharged home with plans for outpatient follow-up and colectomy with possible cytoreduction. Underwent open right hemicolectomy on 07/14/2023. Initially Dr. Dawson performed laparotomy and excised several lower pelvic lesions. Dr. Jes maldonado performed the right hemicolectomy. He observed kinking of the cecum, proximal ascending colon and some of the distal ileum coming together causing narrowing of the pedicle around which the colon was volvulized. Pathology: FINAL DIAGNOSIS A. 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 B. 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 C. 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 - Background small bowel with acute serositis, possibly procedure-related. - Appendix with fibrous obliteration. - Thirteen lymph nodes, negative for malignancy (0/13). D. Fascia, anterior abdominal wall, excision: - Fat necrosis with associated dystrophic calcification, negative for malignancy. OV 07/30/2023: Discharged on apixaban 2.5 mg BID for VTE prophylaxis. Had hematochezia at home. 2 RBC transfusions. Apixaban stopped. Can't get strength back. On GI soft/Low residual diet. Has an appetite. No nausea. Abdominal soreness when standing or walking. Now--about 2-3 BMs daily. Soft to loose stools. No blood. Was advised to use Colace. Stopped two days ago b/c ongoing loose stools and urgency. No episodes incontinence. Continues on SALLY inhibitor 10 mg daily. Noticed swelling of right foot last evening. Current therapy: 1) Nadia. Presents for ongoing oncologic management. Interim history: Neuropathy stable. No fatigue. Appetite is normal. No abdominal bloating or pain. Bowels have been moving on a regular basis with formed stools. Doesn't tolerate dairy. No cough or shortness of breath. PMH, medications and allergies personally reviewed by me today. Any changes documented in appropriate section. ROS: Constitutional: Denies episodes of fever and night sweats. Neuro: Denies MACHADO, vertigo, dizziness and imbalance. HEENT: No recent change in voice, vision or hearing. Resp: See above. CVS: Denies exertional chest pain, PND, orthopnea and LE edema. GI: Denies dysgeusia. Denies symptoms of stomatitis. : Denies dysuria or gross hematuria. Endo: Denies hot flashes. Denies polyuria and polydipsia. Denies heat and cold intolerance. Musculoskeletal: Denies bone, back, joint and muscular pain. Derm: Denies rash. Denies jaundice and diffuse pruritis. Heme: Denies unusual bleeding and unexplained bruising. Psych: Normal mood. PHYSICAL EXAM: Vitals: Blood pressure 116/68, pulse 66, temperature 36.5 C (97.7 F), temperature source Temporal, weight 57.6 kg (127 lb), SpO2 98%. Well-appearing and in no acute distress. EYES: Sclerae are anicteric bilaterally. No conjunctival injection. LYMPHATIC: No palpable cervical or supraclavicular adenopathy. RESPIRATORY: Inspiratory breath sounds are of normal intensity in all bernabe. There are no crackles, wheezes or rales. CARDIOVASCULAR: Rhythm is regular. ABDOMEN: The abdomen is nondistended. The abdomen is soft and nontender throughout. No mass or fluid wave. Extremities: No swelling of the LEs. SKIN: No jaundice or rash. LABS: Latest Ref [facility] 01/17/2024 WBC 3.70 - 11.00 k/uL 5.76 RBC 3.90 - 5.20 m/uL 4.91 Hemoglobin 11.5 - 15.5 g/dL 13.1 Hematocrit 36.0 - 46.0 % 40.4 MCV 80.0 - 100.0 fL 82.3 MCH 26.0 - 34.0 pg 26.7 MCHC 30.5 - 36.0 g/dL 32.4 RDW-CV 11.5 - 15.0 % 15.6 (H) Platelet Count 150 - 400 k/uL 141 (L) MPV 9.0 - 12.7 fL 9.0 Neut% % 68.5 Abs Neut (ANC) 1.45 - 7.50 k/uL 3.94 Lymph% % 22.0 Abs Lymph 1.00 - 4.00 k/uL 1.27 [place]% % 7.5 Abs [place] <0.87 k/uL 0.43 Eosin% % 1.2 Abs Eosin <0.46 k/uL 0.07 Baso% % 0.5 Abs Baso <0.11 k/uL 0.03 Immature Gran % % 0.3 IMMATURE GRANS (ABS) <0.10 k/uL <0.03 NRBC /100 WBC 0.0 Absolute nRBC <0.01 k/uL <0.01 DTYPE Auto Protein, Total 6.3 - 8.0 g/dL 7.3 Albumin 3.9 - 4.9 g/dL 3.9 Calcium 8.5 - 10.2 mg/dL 9.1 Bilirubin, Total 0.2 - 1.3 mg/dL 1.2 Alkaline Phosphatase 34 - 123 U/L 88 AST 13 - 35 U/L 33 ALT 7 - 38 U/L 25 Glucose 74 - 99 mg/dL 100 (H) BUN 7 - 21 mg/dL 26 (H) Creatinine 0.58 - 0.96 mg/dL 0.80 Sodium 136 - 144 mmol/L 140 Potassium 3.7 - 5.1 mmol/L 4.1 Chloride 98 - 107 mmol/L 101 CO2 22 - 30 mmol/L 28 Anion Gap 8 - 15 mmol/L 11 eGFR >=60 mL/min/1.73m 77 ASSESSMENT/PLAN: (C56.1, C56.2) Malignant neoplasm of both ovaries (HCC) (primary encounter diagnosis) Assessment: -KPS is 60% (due to recent surgery). -BRCA2 mutation (tested 04/2019). -Baseline CA125 1153 U/mL. -Now status post right hemicolectomy with some tumor sampling/debulking. -No symptoms to suggest cardiomyopathy. -FOLR1 IHC results--100% of cells stained +2-3+4 -Blood pressure under excellent control. -CA125 up last time. -No symptoms of pneumonitis. -Personally reviewed CT images of the lungs with her. Radiology has not interpreted as of yet but the upper right lobe prior groundglass densities appear more coalesced with nodularity. Left lung appears stable. Small amount of ascites. These changes along with marked increase in CA125 suggest progression of disease. Recommended changing treatment to topotecan with bevacizumab. -I discussed the rationale, logistics, potential risks (including but not limited to alopecia, cytopenias, bleeding, cardiovascular events, hypertension, proteinuria, nausea and vomiting, diarrhea, infections and the small potential for as a consequence of severe toxicity/complications of therapy), benefits and alternatives, as well as the personnel involved in the administration of topotecan with bevacizumab. I answered her questions in detail and she verbalized understanding and agreed with the recommended therapy. Please see the electronic consent document for details of doses and schedule. -Will look into trials. Plan:. -Discontinue Elahere. -Begin topotecan and bevacizumab next week. -Monitor CA125 each cycle. -CTs following 2 cycles. Portions of this documentation were copied and pasted from previous office visit notes in order to provide a cohesive continuity of the history. The note has been reviewed and edited and updated as necessary. I spent a total of 30 minutes on the date of the service which included preparing to see the patient, [id number] patient care, completing clinical documentation, obtaining and/or reviewing separately obtained history, performing a medically appropriate examination, counseling and educating the patient/family/caregiver, ordering medications, tests, or procedures, communicating with other HCPs (not separately reported), and communicating results to the patient/family/caregiver. Js Cruz DO documented in this encounter [facility] 01-24-2024 History of Presen t illness Narrative Radiology Service Progress Note DATE OF SERVICE: January 24, 2024 TIME: 3:03 PM PATIENT IDENTITY VERIFICATION COMPLETED USING TWO (2) STANDARD IDENTIFIERS: Name and Date of confirmed by patient verbally. FALL SCREENING: Has the patient had 2 falls in the last year or 1 fall with injury or currently using an Ambulatory Assistive Device (Walker, Cane, Wheelchair, Crutches, etc.)? No PATIENT GENDER DATA: Female. status: : No status: NO. PATIENT RELEVANT IMPLANT DATA REVIEWED: Yes PATIENT PRESENTS WITH AN IMPLANTABLE OR ATTACHED FRETTED STRING INSTRUMENT REPAIRER: No ALLERGIES: Reviewed and unchanged CONTRAST ALLERGY: NO. EXAM: CT -CONTRAST INDUCED NEPHROPATHY RISK FACTORS: Patient age > 60 years CREATININE: Creatinine Date Value Ref Range Status 01/24/2024 0.70 0.58 - 0.96 mg/dL Final 01/17/2024 0.80 0.58 - 0.96 mg/dL Final 12/27/2023 0.91 0.58 - 0.96 mg/dL Final Estimated Glomerular Filtration Rate Date Value Ref Range Status 01/24/2024 91 >=60 mL/min/1.73m Final Comment: Estimated Glomerular Filtration Rate (eGFR) is calculated using the 2020 CKD-EPI creatinine equation. This equation utilizes serum creatinine, sex, and age as parameters. The creatinine assay has traceable calibration to isotope dilution-mass spectrometry. Refer to KDIGO guidelines for clinical interpretation. In patients with unstable renal function, e.g. those with acute kidney injury, the eGFR may not accurately reflect actual GFR. eGFR- Date Value Ref Range Status 07/07/2021 Test reordered by [facility]. Corrected Comment: SEE LOLIS [id number] Account Credited 07/07/2021 >60 Final P.O.C.T. RESULTS: POC done: Yes, See Lab Tab January 24, 2024 TREATMENT: N/A PERIPHERAL IV DATA: power port accessed by hemoc RADIOLOGY DEPARTMENT: CT; Exam(s) Completed: Chest Abdomen Pelvis SIGNATURE: RT Laurie(R) PATIENT NAME: Savana Patel DATE: January 24, 2024 TIME: 3:03 PM documented in this encounter [facility] 01-20-2024 Telephone encounter Note Spoke with patient and scheduled as directed. Jayla Monroy [facility] 01-20-2024 Miscellaneous Notes Spoke with patient and scheduled as directed. Jayla Monroy PSS- please contact patient to move up CT's (currently scheduled for 02/02/2024). Then try to reschedule her OV for a few days after CT's. Patient is expecting the call. Beatrice Chu LPN documented in this encounter [facility] 01-20-2024 Telephone encounter Note PSS- please contact patient to move up CT's (currently scheduled for 02/02/2024). Then try to reschedule her OV for a few days after CT's. Patient is expecting the call. Beatrice Chu LPN 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 Initially underwent pelvic ultrasound on 09/01/2018. Uterus appeared normal. The endometrial stripe was 2.3 mm. Right and left ovaries appeared normal. However there was a large amount of free fluid in the pelvic cul-de-sac. CT A/P 09/08/2018: Liver: No mass. Homogeneous texture. Biliary: No ductal dilatation is seen. Gallbladder is unremarkable. Spleen: Spleen is unremarkable. Pancreas: No mass or duct dilation. Adrenals: Adrenal glands are unremarkable. Kidneys: No mass, calculus or hydronephrosis is seen. GI tract: No bowel dilatation is seen. No evidence of obstruction. Lymph nodes: No evidence of adenopathy. Mesentery/Peritoneum: There is increased soft tissue density best seen in the coronal views extending from the lower abdomen into the pelvic area. This could represent peritoneal involvement with tumor. This is seen on coronal image 37 and axial images 99 through 122. It extends across the anterior aspect of the pelvic area seen on axial image 124. Vasculature: No evidence of dilatation of the abdominal aorta. CT PELVIS: Pelvis: There is a large amount of free fluid or loculated fluid in the pelvis suggesting that there could be an enhancing rim surrounding this fluid is seen on image 127 and measures 10.6 x 6.1 cm. Bones/Soft Tissues: No significant findings identified. Lower thorax: Unremarkable. CA125 was 1153 U/mL. Had employee relations consultant onc evaluation and CT chest unremarkable. Underwent exploratory laparotomy, optimal tumor bulking, total abdominal hysterectomy, bilateral salpingo-oophorectomy, resection of bladder cul-de-sac and pelvic peritoneal disease along with resection of omental caking with super colic omentectomy on 10/06/2018. Pathology: FINAL DIAGNOSIS 1. 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 2. 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 3. Uterus, cervix, bilateral ovaries and fallopian tubes, and bladder/pelvic peritoneum, hysterectomy and excision (C) Left fallopian tube - High grade serous carcinoma (see comment and synoptic report). Right fallopian tube - Positive for involvement by high grade serous carcinoma. Bilateral ovaries - Positive for involvement by high grade serous carcinoma. Uterine serosa - Positive for involvement by high grade serous carcinoma. Bladder/pelvic peritoneum - Positive for involvement by high grade serous carcinoma. Endometrium - Inactive endometrium. Myometrium - Negative for malignancy. Cervix - Negative for malignancy. SYNOPTIC REPORT OF BRAUN PATHOLOGIC FINDINGS UTERUS, CERVIX, BILATERAL TUBES AND OVARIES, BLADDER, AND PELVIC PERITONEUM: Procedure: Total hysterectomy and bilateral salpingo-oophorectomy Omentectomy Peritoneal biopsies Specimen Integrity: Left fallopian tube serosa intact Primary Tumor Site: Left fallopian tube Ovarian Surface Involvement: Present Specify laterality (if applicable): Bilateral Fallopian Tube Surface Involvement: Present Specify laterality (if applicable): Bilateral Tumor Size: Greatest dimension: 1.6 cm Histologic Type: Serous carcinoma Histologic Grade: Not applicable Two-tier grading System: High grade Implants: Not applicable/not sampled Involvement of other tissues/organs: Right ovary Left ovary Right fallopian tube Pelvic peritoneum Omentum Other organs/tissues (specify): Uterine serosa Largest extrapelvic peritoneal focus, macroscopic (greater than 2 cm) Peritoneal Ascitic Fluid, Not submitted/unknown Treatment Effect: No known presurgical therapy Regional Lymph Nodes: No nodes submitted or found Pathologic Stage Classification (pTNM, AJCC 8th ed) TNM Descriptors: Not applicable Primary Tumor (pT): pT3c: Macroscopic peritoneal metastasis beyond pelvis more than 2 cm in greatest dimension with or without metastasis to the retroperitoneal lymph nodes (includes extension to capsule of liver and spleen without parenchymal involvement of either organ) Regional Lymph Nodes (pN): pNX: Cannot be assessed Distant Metastasis (pM): Not applicable/Not confirmed pathologically in this case Previous therapy: 1) 11/11/2018 - 02/03/2019: PACLITAXEL 80 D1,8,15 CARBOPLATIN 6 D1 - Q21D s/p 4 cycles. *neutropenia/thrombocytopenia causing treatment delay. Neulasta OnPro added; switch to Q21D dosing of Taxol with cycles 5 & 6 02/23/2019 - 03/17/2019: PACLITAXEL 135 D1 CARBOPLATIN 6 D1 - Q21D s/p 2 cycles. 2) 06/30/2019 - 06/20/2021: olaparib (LYNPARZA) 150 mg tablet; 300 mg BID. CTs 06/29/2022: Mesentery/Peritoneum: * New 0.4 cm anterior mesenteric fat nodule (8:57) * Confluent infiltrative soft tissue in RIGHT false pelvis surrounding the terminal ileum and ascending colon (cecum deep in pelvis) and probably affecting the sigmoid colon; difficult to precisely measure as it envelops bowel but including bowel measures approximately 4.5 x 2.9 cm (8:101); process extends to the RIGHT psoas muscle * Several small subtle anterior mesenteric fat nodules * No free abdominal fluid MRI pelvis 07/02/2022: Similar imaging findings since CT 06/29/2022, redemonstrating pelvic peritoneal/serosal carcinomatosis involving segments of bowel predominantly in the right anterior pelvis, with confluent soft tissue encasing the proximal ascending colon and causing relative upstream dilation of the low-lying cecum suggesting developing colonic obstruction. No small bowel dilation. No pelvic lymphadenopathy. 3) Carboplatin/paclitaxel x6 cycles. Completed 11/02/2022. Stable disease. Recommended to retry carbo/paclitaxel with potential addition michael if disease clears the bowel. 4) Doxil tolerated very well. PD 05/27/2023. Current therapy: CTs 05/27/2023 demonstrated progression of disease with an increase in size of irregular soft tissue density in the right pelvis as well as increasing thickening of the wall of the cecum. Presented to the ED at [facility] about a week later. CT scan demonstrated possible cecal volvulus. She was transferred to [facility]. Managed nonsurgically with NG decompression. NG was removed on her second hospital day and her diet was advanced to clear liquids and then the following day advance to full liquids then to gastrointestinal soft diet on day 3. She was discharged home with plans for outpatient follow-up and colectomy with possible cytoreduction. Underwent open right hemicolectomy on 07/14/2023. Initially Dr. Dawson performed laparotomy and excised several lower pelvic lesions. Dr. Jes maldonado performed the right hemicolectomy. He observed kinking of the cecum, proximal ascending colon and some of the distal ileum coming together causing narrowing of the pedicle around which the colon was volvulized. Pathology: FINAL DIAGNOSIS A. 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 B. 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 C. 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 - Background small bowel with acute serositis, possibly procedure-related. - Appendix with fibrous obliteration. - Thirteen lymph nodes, negative for malignancy (0/13). D. Fascia, anterior abdominal wall, excision: - Fat necrosis with associated dystrophic calcification, negative for malignancy. OV 07/30/2023: Discharged on apixaban 2.5 mg BID for VTE prophylaxis. Had hematochezia at home. 2 RBC transfusions. Apixaban stopped. Can't get strength back. On GI soft/Low residual diet. Has an appetite. No nausea. Abdominal soreness when standing or walking. Now--about 2-3 BMs daily. Soft to loose stools. No blood. Was advised to use Colace. Stopped two days ago b/c ongoing loose stools and urgency. No episodes incontinence. Continues on SALLY inhibitor 10 mg daily. Noticed swelling of right foot last evening. Current therapy: 1) Elahere. Presents for ongoing oncologic management. Interim history: Continues to tolerate Elahere well. Interval worsening of fingertip neuropathy but still able to write well and turn pages. Distance vision subjectively worse. Sometimes taking off her glasses helps with distance. Can read well. No eye pain or burning. Denies cough, wheezing or shortness of breath. Appetite is normal. No abdominal bloating or pain. Bowels have been moving on a regular basis with formed stools. Doesn't tolerate dairy. PMH, medications and allergies personally reviewed by me today. Any changes documented in appropriate section. ROS: Constitutional: Denies episodes of fever and night sweats. Neuro: Denies MACHADO, vertigo, dizziness and imbalance. HEENT: No recent change in voice, vision or hearing. Resp: See above. CVS: Denies exertional chest pain, PND, orthopnea and LE edema. GI: Denies dysgeusia. Denies symptoms of stomatitis. : Denies dysuria or gross hematuria. Endo: Denies hot flashes. Denies polyuria and polydipsia. Denies heat and cold intolerance. Musculoskeletal: Denies bone, back, joint and muscular pain. Derm: Denies rash. Denies jaundice and diffuse pruritis. Heme: Denies unusual bleeding and unexplained bruising. Psych: Normal mood. PHYSICAL EXAM: Vitals: Blood pressure 106/63, pulse 70, temperature 36.5 C (97.7 F), temperature source Temporal, weight 56.5 kg (124 lb 8 oz), SpO2 98%. Well-appearing and in no acute distress. EYES: Sclerae are anicteric bilaterally. No conjunctival injection. LYMPHATIC: No palpable cervical or supraclavicular adenopathy. RESPIRATORY: Inspiratory breath sounds are of normal intensity in all bernabe. There are no crackles, wheezes or rales. CARDIOVASCULAR: Rhythm is regular. ABDOMEN: The abdomen is nondistended. The abdomen is soft and nontender throughout. No mass or fluid wave. Extremities: No swelling of the LEs. SKIN: No jaundice or rash. LABS: Latest Ref [facility] 01/17/2024 WBC 3.70 - 11.00 k/uL 5.76 RBC 3.90 - 5.20 m/uL 4.91 Hemoglobin 11.5 - 15.5 g/dL 13.1 Hematocrit 36.0 - 46.0 % 40.4 MCV 80.0 - 100.0 fL 82.3 MCH 26.0 - 34.0 pg 26.7 MCHC 30.5 - 36.0 g/dL 32.4 RDW-CV 11.5 - 15.0 % 15.6 (H) Platelet Count 150 - 400 k/uL 141 (L) MPV 9.0 - 12.7 fL 9.0 Neut% % 68.5 Abs Neut (ANC) 1.45 - 7.50 k/uL 3.94 Lymph% % 22.0 Abs Lymph 1.00 - 4.00 k/uL 1.27 [place]% % 7.5 Abs [place] <0.87 k/uL 0.43 Eosin% % 1.2 Abs Eosin <0.46 k/uL 0.07 Baso% % 0.5 Abs Baso <0.11 k/uL 0.03 Immature Gran % % 0.3 IMMATURE GRANS (ABS) <0.10 k/uL <0.03 NRBC /100 WBC 0.0 Absolute nRBC <0.01 k/uL <0.01 DTYPE Auto Protein, Total 6.3 - 8.0 g/dL 7.3 Albumin 3.9 - 4.9 g/dL 3.9 Calcium 8.5 - 10.2 mg/dL 9.1 Bilirubin, Total 0.2 - 1.3 mg/dL 1.2 Alkaline Phosphatase 34 - 123 U/L 88 AST 13 - 35 U/L 33 ALT 7 - 38 U/L 25 Glucose 74 - 99 mg/dL 100 (H) BUN 7 - 21 mg/dL 26 (H) Creatinine 0.58 - 0.96 mg/dL 0.80 Sodium 136 - 144 mmol/L 140 Potassium 3.7 - 5.1 mmol/L 4.1 Chloride 98 - 107 mmol/L 101 CO2 22 - 30 mmol/L 28 Anion Gap 8 - 15 mmol/L 11 eGFR >=60 mL/min/1.73m 77 ASSESSMENT/PLAN: (C56.1, C56.2) Malignant neoplasm of both ovaries (HCC) (primary encounter diagnosis) Assessment: -KPS is 60% (due to recent surgery). -BRCA2 mutation (tested 04/2019). -Baseline CA125 1153 U/mL. -Now status post right hemicolectomy with some tumor sampling/debulking. -No symptoms to suggest cardiomyopathy. -FOLR1 IHC results--100% of cells stained +2-3+4 -Blood pressure under excellent control. -CA125 up last time. -No symptoms of pneumonitis. -Mild worsening neuropathy. Plan:. -Hold this cycle of Elahere. -Repeat CTs and restart Elahere in 3 weeks at oliver reduction pending radiographic findings. -Durezol eyedrops per Dr. Nichols's instructions. -Continue Systane moisturizing drops. Portions of this documentation were copied and pasted from previous office visit notes in order to provide a cohesive continuity of the history. The note has been reviewed and edited and updated as necessary. I spent a total of 15 minutes on the date of the service which included preparing to see the patient, [id number] patient care, completing clinical documentation, obtaining and/or reviewing separately obtained history, performing a medically appropriate examination, counseling and educating the patient/family/caregiver, ordering medications, tests, or procedures, communicating with other HCPs (not separately reported), and communicating results to the patient/family/caregiver. Js Cruz DO documented in this encounter [facility] 01-13-2024 History of Presen t illness Narrative Scan on 01/12/2024 by Provider, CITLALY Banerjee: Consultation - Ophthalmology documented in this encounter [facility] 01-03-2024 Telephone encounter Note Spoke with pt. She has no symptoms. Denies, SOB, cough , or chest pain.Informed to continue to monitor, Dr. Cruz will reassess at her next office visit and we can discuss pros/cons of continuing Elahere at dose reduction. Pt. Voiced understanding. Kristan Marina LPN [facility] 01-03-2024 Miscellaneous Notes Spoke with pt. She has no symptoms. Denies, SOB, cough , or chest pain.Informed to continue to monitor, Dr. Cruz will reassess at her next office visit and we can discuss pros/cons of continuing Elahere at dose reduction. Pt. Voiced understanding. Kristan Marina LPN I reviewed chest CT images. Pneumonitis a little worse but if no symptoms of cough, shortness of breath or chest pain then we will continue to monitor. I will assess at next office visit and we can discuss pros/cons of continuing Elahere at dose reduction. Js Cruz DO documented in this encounter [facility] 01-02-2024 Telephone encounter Note I reviewed chest CT images. Pneumonitis a little worse but if no symptoms of cough, shortness of breath or chest pain then we will continue to monitor. I will assess at next office visit and we can discuss pros/cons of continuing Elahere at dose reduction. Js Cruz DO [facility] 12-27-2023 History of Presen t illness Narrative Chief Complaint Patient presents with: Established Patient HPI: Savana Patel is a 73 year old female who presents here today for follow up CT chest. Per Dr. 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 Initially underwent pelvic ultrasound on 09/01/2018. Uterus appeared normal. The endometrial stripe was 2.3 mm. Right and left ovaries appeared normal. However there was a large amount of free fluid in the pelvic cul-de-sac. CT A/P 09/08/2018: Liver: No mass. Homogeneous texture. Biliary: No ductal dilatation is seen. Gallbladder is unremarkable. Spleen: Spleen is unremarkable. Pancreas: No mass or duct dilation. Adrenals: Adrenal glands are unremarkable. Kidneys: No mass, calculus or hydronephrosis is seen. GI tract: No bowel dilatation is seen. No evidence of obstruction. Lymph nodes: No evidence of adenopathy. Mesentery/Peritoneum: There is increased soft tissue density best seen in the coronal views extending from the lower abdomen into the pelvic area. This could represent peritoneal involvement with tumor. This is seen on coronal image 37 and axial images 99 through 122. It extends across the anterior aspect of the pelvic area seen on axial image 124. Vasculature: No evidence of dilatation of the abdominal aorta. CT PELVIS: Pelvis: There is a large amount of free fluid or loculated fluid in the pelvis suggesting that there could be an enhancing rim surrounding this fluid is seen on image 127 and measures 10.6 x 6.1 cm. Bones/Soft Tissues: No significant findings identified. Lower thorax: Unremarkable. CA125 was 1153 U/mL. Had employee relations consultant onc evaluation and CT chest unremarkable. Underwent exploratory laparotomy, optimal tumor bulking, total abdominal hysterectomy, bilateral salpingo-oophorectomy, resection of bladder cul-de-sac and pelvic peritoneal disease along with resection of omental caking with super colic omentectomy on 10/06/2018. Pathology: FINAL DIAGNOSIS 1. 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 2. 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 3. Uterus, cervix, bilateral ovaries and fallopian tubes, and bladder/pelvic peritoneum, hysterectomy and excision (C) Left fallopian tube - High grade serous carcinoma (see comment and synoptic report). Right fallopian tube - Positive for involvement by high grade serous carcinoma. Bilateral ovaries - Positive for involvement by high grade serous carcinoma. Uterine serosa - Positive for involvement by high grade serous carcinoma. Bladder/pelvic peritoneum - Positive for involvement by high grade serous carcinoma. Endometrium - Inactive endometrium. Myometrium - Negative for malignancy. Cervix - Negative for malignancy. SYNOPTIC REPORT OF BRAUN PATHOLOGIC FINDINGS UTERUS, CERVIX, BILATERAL TUBES AND OVARIES, BLADDER, AND PELVIC PERITONEUM: Procedure: Total hysterectomy and bilateral salpingo-oophorectomy Omentectomy Peritoneal biopsies Specimen Integrity: Left fallopian tube serosa intact Primary Tumor Site: Left fallopian tube Ovarian Surface Involvement: Present Specify laterality (if applicable): Bilateral Fallopian Tube Surface Involvement: Present Specify laterality (if applicable): Bilateral Tumor Size: Greatest dimension: 1.6 cm Histologic Type: Serous carcinoma Histologic Grade: Not applicable Two-tier grading System: High grade Implants: Not applicable/not sampled Involvement of other tissues/organs: Right ovary Left ovary Right fallopian tube Pelvic peritoneum Omentum Other organs/tissues (specify): Uterine serosa Largest extrapelvic peritoneal focus, macroscopic (greater than 2 cm) Peritoneal Ascitic Fluid, Not submitted/unknown Treatment Effect: No known presurgical therapy Regional Lymph Nodes: No nodes submitted or found Pathologic Stage Classification (pTNM, AJCC 8th ed) TNM Descriptors: Not applicable Primary Tumor (pT): pT3c: Macroscopic peritoneal metastasis beyond pelvis more than 2 cm in greatest dimension with or without metastasis to the retroperitoneal lymph nodes (includes extension to capsule of liver and spleen without parenchymal involvement of either organ) Regional Lymph Nodes (pN): pNX: Cannot be assessed Distant Metastasis (pM): Not applicable/Not confirmed pathologically in this case Previous therapy: 1) 11/11/2018 - 02/03/2019: PACLITAXEL 80 D1,8,15 CARBOPLATIN 6 D1 - Q21D s/p 4 cycles. *neutropenia/thrombocytopenia causing treatment delay. Neulasta OnPro added; switch to Q21D dosing of Taxol with cycles 5 & 6 02/23/2019 - 03/17/2019: PACLITAXEL 135 D1 CARBOPLATIN 6 D1 - Q21D s/p 2 cycles. 2) 06/30/2019 - 06/20/2021: olaparib (LYNPARZA) 150 mg tablet; 300 mg BID. CTs 06/29/2022: Mesentery/Peritoneum: * New 0.4 cm anterior mesenteric fat nodule (8:57) * Confluent infiltrative soft tissue in RIGHT false pelvis surrounding the terminal ileum and ascending colon (cecum deep in pelvis) and probably affecting the sigmoid colon; difficult to precisely measure as it envelops bowel but including bowel measures approximately 4.5 x 2.9 cm (8:101); process extends to the RIGHT psoas muscle * Several small subtle anterior mesenteric fat nodules * No free abdominal fluid MRI pelvis 07/02/2022: Similar imaging findings since CT 06/29/2022, redemonstrating pelvic peritoneal/serosal carcinomatosis involving segments of bowel predominantly in the right anterior pelvis, with confluent soft tissue encasing the proximal ascending colon and causing relative upstream dilation of the low-lying cecum suggesting developing colonic obstruction. No small bowel dilation. No pelvic lymphadenopathy. 3) Carboplatin/paclitaxel x6 cycles. Completed 11/02/2022. Stable disease. Recommended to retry carbo/paclitaxel with potential addition michael if disease clears the bowel. 4) Doxil tolerated very well. PD 05/27/2023. Current therapy: CTs 05/27/2023 demonstrated progression of disease with an increase in size of irregular soft tissue density in the right pelvis as well as increasing thickening of the wall of the cecum. Presented to the ED at [facility] about a week later. CT scan demonstrated possible cecal volvulus. She was transferred to [facility]. Managed nonsurgically with NG decompression. NG was removed on her second hospital day and her diet was advanced to clear liquids and then the following day advance to full liquids then to gastrointestinal soft diet on day 3. She was discharged home with plans for outpatient follow-up and colectomy with possible cytoreduction. Underwent open right hemicolectomy on 07/14/2023. Initially Dr. Dawson performed laparotomy and excised several lower pelvic lesions. Dr. Jes maldonado performed the right hemicolectomy. He observed kinking of the cecum, proximal ascending colon and some of the distal ileum coming together causing narrowing of the pedicle around which the colon was volvulized. Pathology: FINAL DIAGNOSIS A. 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 B. 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 C. 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 - Background small bowel with acute serositis, possibly procedure-related. - Appendix with fibrous obliteration. - Thirteen lymph nodes, negative for malignancy (0/13). D. Fascia, anterior abdominal wall, excision: - Fat necrosis with associated dystrophic calcification, negative for malignancy. OV 07/30/2023: Discharged on apixaban 2.5 mg BID for VTE prophylaxis. Had hematochezia at home. 2 RBC transfusions. Apixaban stopped. Can't get strength back. On GI soft/Low residual diet. Has an appetite. No nausea. Abdominal soreness when standing or walking. Now--about 2-3 BMs daily. Soft to loose stools. No blood. Was advised to use Colace. Stopped two days ago b/c ongoing loose stools and urgency. No episodes incontinence. Continues on SALLY inhibitor 10 mg daily. Noticed swelling of right foot last evening. Current therapy: 1) Elahere. Repeat CT chest showed worsening pneumonitis. Pt. denies resp. symptoms. Pt. here today with spouse. Appetite:Good. Denies fevers. Mouth:denies sores Resp:denies cough or sob Cardiac:denies chest pain/palpitations GI:denies abd pain, n/v, moving bowels regularly :denies dysuria/hematuria Extrem:denies pain Endo:denies hot flashes Skin:denies rashes Heme:denies bleeding The ROS is otherwise negative. Past medical history, appointments, medications, allergies reviewed. No changes. EXAM: BP 124/70 Pulse 65 Temp 36.3 C (97.3 F) Wt 55.4 kg (122 lb 3.2 oz) SpO2 97% BMI 20.98 kg/m APPEARANCE Well appearing, alert, in no acute distress, well-hydrated, well nourished. HEART RRR with normal S1 and S2, no murmurs LUNG clear to auscultation LYMPH NODES No cervical lymphadenopathy, No supraclavicular lymphadenopathy, and No axillary lymphadenopathy. ABDOMEN bowel sounds normoactive, soft, non-tender, non-distended EXTREMITIES No edema NEURO Awake, alert and oriented x 3, Normal gait, and No involuntary motions. SKIN Skin color, texture, turgor normal, no suspicious rashes or lesions LABS: Latest Ref Rng 11/17/2023 12/06/2023 12/27/2023 WBC 3.70 - 11.00 k/uL 5.17 5.26 4.97 RBC 3.90 - 5.20 m/uL 5.08 5.17 4.88 Hemoglobin 11.5 - 15.5 g/dL 13.4 13.6 12.9 Hematocrit 36.0 - 46.0 % 42.2 42.5 39.9 MCV 80.0 - 100.0 fL 83.1 82.2 81.8 MCH 26.0 - 34.0 pg 26.4 26.3 26.4 MCHC 30.5 - 36.0 g/dL 31.8 32.0 32.3 RDW-CV 11.5 - 15.0 % 17.2 (H) 17.0 (H) 16.4 (H) Platelet Count 150 - 400 k/uL 144 (L) 129 (L) 137 (L) MPV 9.0 - 12.7 fL 9.7 9.1 9.2 Neut% % 64.8 62.9 64.4 Abs Neut (ANC) 1.45 - 7.50 k/uL 3.35 3.31 3.20 Lymph% % 25.1 23.2 22.1 Abs Lymph 1.00 - 4.00 k/uL 1.30 1.22 1.10 [place]% % 8.1 9.7 9.5 Abs [place] <0.87 k/uL 0.42 0.51 0.47 Eosin% % 1.2 3.2 3.2 Abs Eosin <0.46 k/uL 0.06 0.17 0.16 Baso% % 0.6 0.6 0.4 Abs Baso <0.11 k/uL 0.03 0.03 <0.03 Immature Gran % % 0.2 0.4 0.4 IMMATURE GRANS (ABS) <0.10 k/uL <0.03 <0.03 <0.03 NRBC /100 WBC 0.0 0.0 0.0 Absolute nRBC <0.01 k/uL <0.01 <0.01 <0.01 DTYPE Auto Auto Auto Latest Ref Rng 11/12/2023 11/17/2023 12/06/2023 Protein, Total 6.3 - 8.0 g/dL 7.4 7.7 7.4 Albumin 3.9 - 4.9 g/dL 4.3 4.5 4.2 Calcium 8.5 - 10.2 mg/dL 10.3 (H) 10.3 (H) 9.8 Bilirubin, Total 0.2 - 1.3 mg/dL 0.4 0.4 0.3 Alkaline Phosphatase 34 - 123 U/L 91 92 89 AST 13 - 35 U/L 33 30 33 ALT 7 - 38 U/L 32 29 29 Glucose 74 - 99 mg/dL 97 118 (H) 97 BUN 7 - 21 mg/dL 28 (H) 21 23 (H) Creatinine 0.58 - 0.96 mg/dL 0.94 0.84 0.80 Sodium 136 - 144 mmol/L 139 139 139 Potassium 3.7 - 5.1 mmol/L 4.0 4.0 4.3 Chloride 98 - 107 mmol/L 103 102 103 CO2 22 - 30 mmol/L 29 29 26 Anion Gap 8 - 15 mmol/L 7 (L) 8 (L) 10 eGFR >=60 mL/min/1.73m 64 73 77 CA125: Pending RADIOLOGY: CT chest 12/21/23: IMPRESSION: Interval worsening of nodular groundglass opacities in the bilateral lungs. No thoracic lymphadenopathy. ASSESSMENT/PLAN: 1. Malignant neoplasm of both ovaries (HCC) - ICD9: 183.0, ICD10: C56.3 (primary diagnosis) 2. 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 Carcinomatosis (HCC) - ICD9: 199.0, ICD10: C80.0 4. 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 - Pneumonitis r/t elehere. - Asymptomatic from pneumonitis. - Reviewed CBC/CMP with pt. - Monitor CA125. - Pt. aware to call office with any cough or sob. - Hold elehere-will discuss plan with Dr. Cruz when he returns next week. - Follow up as scheduled pending above. - Pt. aware to call office with any questions/concerns. The patient indicates understanding of these issues and agrees with the plan. All documentation from previous visit of 12/06/23-Dr. Cruz was copied and pasted, documentation has been reviewed and edited as necessary for today's visit. Kasi Welch APRN.JOSE LUIS documented in this encounter [facility] 12-27-2023 History of Presen t illness Narrative Patient is here for IVAD port flush/blood draw. IVAD is located in right upper chest. Site cleansed with Chloraprep IVAD accessed with a #20 gauge 3/4 non-coring Gripper needle Flush with 5cc's Normal Saline. Blood Return: Good. 10 cc's blood aspirated and discarded. Blood drawn for CBC, CMP, and Ca-125. Flushed with: 20 ml Normal Saline and 10 ml Normal Saline. Non-coring needle removed. Paper tape applied to puncture site. Site negative for redness, edema or tenderness. Patient tolerated procedure well. Lilia Rodney, RN documented in this encounter [facility] 12-16-2023 Telephone encounter Note Patient called requesting information about treatment being held/or lessened. Gave information to patient. She has concerns that the CT results will not be back in time for 7/8 appointments. Informed patient we would contact her if that happens. [facility] Work Phone: 12-16-2023 Miscellaneous Notes Patient called requesting information about treatment being held/or lessened. Gave information to patient. She has concerns that the CT results will not be back in time for 7/8 appointments. Informed patient we would contact her if that happens. Scheduled CT as requested with patient. I called and reviewed the results of the CTs with her. Responding disease. Radiographic evidence of possible pneumonitis. She is asymptomatic. Educated her to call us immediately if she develops a dry cough or shortness of breath. Otherwise repeat CT chest as a stat order without contrast 12/20. Kasi--you are going to be seeing her on 12/27. She is receiving Elahere which can cause pneumonitis. Since that she has no symptoms but radiographic evidence of possible pneumonitis, it is grade 1 and treatment can continue. If the CT done on 12/20 shows worsening findings then the dose scheduled after the OV 12/27 should be held. High dose prednisone with taper if symptomatic. If CT stable, okay to proceed with treatment, but dose reduce one level (in package insert) if fingertip neuropathy worse. Js Cruz DO Patient received 12/01 CT results via My Chart and would like someone to call and explain it to her. documented in this encounter [facility] 12-10-2023 Telephone encounter Note Scheduled CT as requested with patient. [facility] 12-10-2023 Telephone encounter Note I called and reviewed the results of the CTs with her. Responding disease. Radiographic evidence of possible pneumonitis. She is asymptomatic. Educated her to call us immediately if she develops a dry cough or shortness of breath. Otherwise repeat CT chest as a stat order without contrast 12/20. Kasi--you are going to be seeing her on 12/27. She is receiving Elahere which can cause pneumonitis. Since that she has no symptoms but radiographic evidence of possible pneumonitis, it is grade 1 and treatment can continue. If the CT done on 12/20 shows worsening findings then the dose scheduled after the OV 12/27 should be held. High dose prednisone with taper if symptomatic. If CT stable, okay to proceed with treatment, but dose reduce one level (in package insert) if fingertip neuropathy worse. Js Cruz DO [facility] 12-09-2023 Telephone encounter Note Patient received 12/01 CT results via My Chart and would like someone to call and explain it to her. [facility] 12-09-2023 History of Presen t illness Narrative Images from the original note were not included. Gynecologic Oncology [facility] Follow up visit Date of service: 12/09/2023 PROBLEM/CC: Savana Patel presents today for ovarian cancer follow up. She has been receiving mirvetuximab with Dr. Cruz. HPI: Ms. 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 Last Distance Health Visit: 09/02/2023 Last Office Visit: 08/13/2023 ONCOLOGY HISTORY: 1) 10/06/2018: Exploratory laparotomy, total abdominal hysterectomy, bilateral salpingooophorectomy, and bladder and posterior culdesac peritoneum resected en bloc, omentectomy 2) 11/11/2018 - 02/03/2019: PACLITAXEL 80 D1,8,15 CARBOPLATIN 6 D1 - Q21D s/p 4 cycles. *neutropenia/thrombocytopenia causing treatment delay. Neulasta OnPro added; switch to Q21D dosing of Taxol with cycles 5 & 6 02/23/2019 - 03/17/2019: PACLITAXEL 135 D1 CARBOPLATIN 6 D1 - Q21D s/p 2 cycles. 3) 06/30/2019 - 06/20/2021: olaparib (LYNPARZA) 150 mg tablet; 300 mg BID. 07/07/2022 POWER BARKER/ONC TUMOR BOARD Decontamination Technician/Onc Tumor Board Encounter Note Date of Tumor Board Presentation: 07/07/2022 Treating Physicians: Fang Cote MD Age: [age] year old Disease site: Ovary- High-grade serous adenocarcinoma Stage(at tumor board presentation)- Ovarian: Recurrent Care Path Discussion: No Clinical Trial Discussion: No If yes, what clinical trial should be considered? 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 GOG 3049 Type of Tumor Board Review: Recurrence Attendance/Disciplines: POWER BARKER ONC, RAD ONC, Radiology, Pathology, and Genetics Management Options: - Consider treatment holiday - Consider doxil - Consider TTI-162 This abstract and interpretation of the conversation at tumor board has been completed by Rupa Mosquera MD. These are the general recommendations/discussion provided at tumor board conference. The definitive recommendations/discussion will be made by the primary health care team and patient after full discussion as appropriate. 5). Doxil, x6 cycles (12/17/2022- 05/10/2023) Decreased to 30mg/m2 with C3 due to PPE 6) 07/14/2023 Exploratory laparotomy, tumor debulking of abdominal lesion is less than 5 cm, right ureterolysis. Co-surgeon with Venancio for right hemicolectomy and anastomosis PATHOLOGY FINAL DIAGNOSIS A. 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 B. 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 C. 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 - Background small bowel with acute serositis, possibly procedure-related. - Appendix with fibrous obliteration. - Thirteen lymph nodes, negative for malignancy (0/13). D. Fascia, anterior abdominal wall, excision: - Fat necrosis with associated dystrophic calcification, negative for malignancy. Cytology Non-Decontamination Technician FINAL DIAGNOSIS A - PELVIC WASHING Positive for malignant cells. Adenocarcinoma, compatible with patient's known Mullerian primary; see comment Diagnosis Comment Tumor cells are scant and immunoreactive to PAX-8 and Claudin-4 (weak). They are negative for D2-40. The overall cytomorphology in combination with the immunoprofile, concurrent surgical pathology findings and clinico-imaging findings support the intepretation above. 09/22/2023 CT Chest IMPRESSION: No suspicious pulmonary nodules. No new thoracic lymphadenopathy. 09/22/2023 CT ABD/PEL IMPRESSION: 1. There is new mild right-sided hydronephrosis. There is some fat extending along the mid to distal ureter. There is an additional fat stranding in the right lower quadrant in the location of a previously described implant. Fat stranding and may be related to recent surgery, however the presence of small implants cannot be excluded. 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 Patient's laboratory accession # is [id number]. (View full doc under 05/02/19 telephone encounter) CARIS/ NEOMathZeeOMICS: RESULTS: CA125: Tumor Markers CA 125 Latest Ref Rng & Units <39 U/mL 11/12/2023 17 10/20/2023 41 09/23/2023 117 08/26/2023 49 07/30/2023 36 07/02/2023 16 05/07/2023 13 04/09/2023 11 03/12/2023 11 02/12/2023 11 01/14/2023 10 12/07/2022 10 11/23/2022 11 10/30/2022 11 10/09/2022 12 09/18/2022 15 08/28/2022 30 08/04/2022 181 07/20/2022 483 06/18/2022 125 04/13/2022 14 03/23/2022 12 02/24/2022 10 01/19/2022 10 12/23/2021 10 11/24/2021 11 10/27/2021 11 09/29/2021 10 09/01/2021 9 07/07/2021 8 12/02/23 CT Chest In process 12/02/23 CT ABD/PEL IMPRESSION: Previously seen right hydronephrosis has resolved. Continued mild pelvic mesenteric stranding. 0.6 cm nodule adjacent to ileocolic anastomosis is unchanged. No abdominal or pelvic fluid or adenopathy. COMPARISON: 09/22/2023 RESULT: Liver: No mass. Biliary: No bile duct dilation. Gallbladder is unremarkable. Spleen: No mass. No splenomegaly. Pancreas: No mass or duct dilation. Adrenals: No mass. Kidneys: No mass, calculus or hydronephrosis. Couple subcentimeter probable cysts. Previously seen right hydronephrosis is no longer present. As previously noted, there is soft tissue stranding adjacent to the upper pelvic ureter without measurable abnormality. GI tract: Right hemicolectomy with ileotransverse colic anastomosis. Small bowel feces proximal to the anastomosis. Lymph nodes: No abdominal or pelvic lymphadenopathy. Mesentery/Peritoneum: 0.6 cm nodule adjacent to ileocolic anastomosis (8:89), unchanged. Mild filtration pericolonic lower abdominal and pelvic mesentery. Retroperitoneum: No mass. Vasculature: - Abdominal aorta and iliac arteries: No aneurysm. Aortoiliac atherosclerotic calcification. - Celiac and SMA: Patent. - Portal venous system: Patent. - Hepatic veins: Patent. Pelvis: No mass, ascites or fluid collection. Hysterectomy. Bones/Soft Tissues: No significant finding. Lower thorax: A chest CT performed will be reported separately. Localizer images: No additional findings. 12/06/2023 CBC + DIFF Component Ref Range & Units 2 d ago (12/06/23) 3 wk ago (11/17/23) 3 wk ago (11/12/23) 1 mo ago (10/26/23) 1 mo ago (10/20/23) 2 mo ago (09/23/23) 3 mo ago (09/01/23) WBC 3.70 - 11.00 k/uL 5.26 5.17 5.30 4.62 4.17 4.44 4.44 RBC 3.90 - 5.20 m/uL 5.17 5.08 4.88 4.77 4.53 3.90 3.09 Low Hemoglobin 11.5 - 15.5 g/dL 13.6 13.4 12.9 12.5 12.0 10.3 Low 8.2 Low Hematocrit 36.0 - 46.0 % 42.5 42.2 40.8 40.2 38.6 32.7 Low 26.6 Low MCV 80.0 - 100.0 fL 82.2 83.1 83.6 84.3 85.2 83.8 86.1 MCH 26.0 - 34.0 pg 26.3 26.4 26.4 26.2 26.5 26.4 26.5 MCHC 30.5 - 36.0 g/dL 32.0 31.8 31.6 31.1 31.1 31.5 30.8 RDW-CV 11.5 - 15.0 % 17.0 High 17.2 High 17.0 High 17.0 High 17.1 High 16.1 High 15.0 Platelet Count 150 - 400 k/uL 129 Low 144 Low 131 Low 128 Low 131 Low 163 CM 170 CM MPV 9.0 - 12.7 fL 9.1 9.7 9.3 9.4 9.7 10.4 10.1 Neutrophils % % 62.9 64.8 61.3 64.8 59.6 66.6 62.4 Abs Neut 1.45 - 7.50 k/uL 3.31 3.35 3.25 2.99 2.49 2.96 2.77 Lymphocytes % % 23.2 25.1 27.9 26.8 28.8 24.3 27.5 Abs Lymph 1.00 - 4.00 k/uL 1.22 1.30 1.48 1.24 1.20 1.08 1.22 Monocytes % % 9.7 8.1 9.1 7.4 10.1 7.9 9.0 Abs [place] <0.87 k/uL 0.51 0.42 0.48 0.34 0.42 0.35 0.40 Eosinophils % % 3.2 1.2 1.1 0.4 0.5 0.5 0.7 Abs Eosin <0.46 k/uL 0.17 0.06 0.06 <0.03 <0.03 <0.03 0.03 Basophils % % 0.6 0.6 0.4 0.2 0.5 0.5 0.2 Abs Baso <0.11 k/uL 0.03 0.03 <0.03 <0.03 <0.03 <0.03 <0.03 Immature Granulocytes % % 0.4 0.2 0.2 0.4 0.5 0.2 0.2 Abs Immature Gran <0.10 k/uL <0.03 <0.03 <0.03 <0.03 <0.03 <0.03 <0.03 NRBC /100 WBC 0.0 0.0 0.0 0.0 0.0 0.0 0.0 Absolute nRBC <0.01 k/uL <0.01 <0.01 <0.01 <0.01 <0.01 <0.01 <0.01 Diff Type Auto Auto Auto Auto Auto Auto Auto 12/06/2023 CMP Component Ref Range & Units 2 d ago (12/06/23) 3 wk ago (11/17/23) 3 wk ago (11/12/23) 1 mo ago (10/20/23) 2 mo ago (09/23/23) 3 mo ago (08/26/23) 4 mo ago (07/30/23) Protein, Total 6.3 - 8.0 g/dL 7.4 7.7 7.4 7.1 7.2 7.1 6.4 Albumin 3.9 - 4.9 g/dL 4.2 4.5 4.3 4.3 4.4 4.4 3.8 Low Calcium, Total 8.5 - 10.2 mg/dL 9.8 10.3 High 10.3 High 9.9 10.0 9.6 9.4 Bilirubin, Total 0.2 - 1.3 mg/dL 0.3 0.4 0.4 0.4 0.5 0.7 0.4 Alkaline Phosphatase 34 - 123 U/L 89 92 91 85 73 65 73 AST 13 - 35 U/L 33 30 33 22 21 20 17 ALT 7 - 38 U/L 29 29 32 21 14 14 15 Glucose 74 - 99 mg/dL 97 118 High CM 97 CM 91 CM 105 High CM 91 CM 112 High CM Comment: The [place] [employer] (ADA) provides guidance for cutoff values for fasting glucose and random glucose. The ADA defines fasting as no caloric intake for at least 8 hours. Fasting plasma glucose results between 100 to 125 mg/dL indicate increased risk for diabetes (prediabetes). Fasting plasma glucose results greater than or equal to 126 mg/dL meet the criteria for diagnosis of diabetes. In the absence of unequivocal hyperglycemia, results should be confirmed by repeat testing. In a patient with classic symptoms of hyperglycemia or hyperglycemic crisis, random plasma glucose results greater than or equal to 200 mg/dL meet the criteria for diagnosis of diabetes. Reference: Standards of Medical Care in Diabetes 2016, [place] [employer]. Diabetes Care. 2016.39(Suppl 1). BUN 7 - 21 mg/dL 23 High 21 28 High 22 High 21 21 21 Creatinine 0.58 - 0.96 mg/dL 0.80 0.84 0.94 0.92 0.82 0.82 0.90 Sodium 136 - 144 mmol/L 139 139 139 140 141 139 135 Low Potassium 3.7 - 5.1 mmol/L 4.3 4.0 4.0 4.1 4.1 4.2 4.1 Chloride 98 - 107 mmol/L 103 102 R 103 R 107 High R 105 R 107 High R 101 R CO2 22 - 30 mmol/L 26 29 29 29 28 24 24 Anion Gap 8 - 15 mmol/L 10 8 Low R 7 Low R 4 Low R 8 Low R 8 Low R 10 R Estimated Glomerular Filtration Rate >=60 mL/min/1.73m 77 73 CM 64 CM 65 CM 75 CM 75 CM 67 CM HISTORIES: PAST MEDICAL HISTORY Diagnosis Date Actinic keratosis 04/12/2007 Advance directive discussed with patient 08/24/2022 Discussed 08/2022: Up to date DEANDRE positive 07/25/2016 Rheum felt just Arthritis. 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 [place] ANGIOMA///NEVUS, NON-NEOPLASTIC 02/18/2007 Constipation 04/04/2015 Dysmetabolic syndrome X 12/28/2007 Essential hypertension 04/04/2015 GERD without esophagitis 07/24/2020 Hemorrhage of gastrointestinal tract, unspecified History of left mastectomy 05/05/2018 Impaired fasting glucose 11/21/2007 Internal hemorrhoids without mention of complication Iron deficiency anemia due to chronic blood loss 09/02/2023 Leg cramps 01/08/2020 Living will on file 07/31/2021 DPA: Javier ( ) Malignant neoplasm of both ovaries (HCC) 10/26/2018 Mixed hyperlipidemia 04/04/2015 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 multiple joints 07/27/2016 Osteopenia 12/28/2012 Other acne 05/29/2008 Other seborrheic keratosis 02/18/2007 Panic attacks 07/18/2012 Primary insomnia 01/29/2022 S/P colectomy 08/06/2023 SOLAR LENGINES///DYSCHROMIA OTHER 02/18/2007 Thrombocytopenia (HCC) 01/29/2022 chronic Trigger ring finger of left hand 07/24/2020 Trigger ring finger of right hand 07/24/2020 PAST SURGICAL HISTORY Procedure Laterality Date BX BREAST PERC VACUUM/ROTN 10/26/2007 LEFT COLONOSCOPY FLX DX W/COLLJ SPEC WHEN PFRMD 07/20/2005 COLONOSCOPY FLX DX W/COLLJ SPEC WHEN PFRMD 05/01/2016 normal - 10 year follow up LAPAROSCOPIC HEMICOLECTOMY Right 06/2023 LIG/TRNSXJ FLP TUBE ABDL/VAG APPR UNI/BI Tubal ligation MAST RAD W/PECTORAL MUSCLES AXILLARY LYMPH NODES 11/2007 Left PAST SURGICAL HISTORY OF BACK SURGERY PAST SURGICAL HISTORY OF 10/06/2018 Exploratory laparotomy, total abdominal hysterectomy, bilateral salpingooophorectomy, and bladder and posterior culdesac peritoneum resected en bloc, omentectomy PLCMT LOCALZTN CLIP,PERC,DURING BREAST BX 10/26/2007 LEFT S PORT-A-CATH [id number] 11/09/2018 TONSILLECTOMY PRIMARY/SECONDARY <AGE 11 Tonsillectomy FAMILY HISTORY Problem Relation Age of Onset Ovarian cancer Mother dx 50s Arthritis Father Cancer Maternal Aunt 7 aunts with breast or ovarian cancer. 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 Patient has had a hysterectomy. HEALTH MAINTENANCE: Last pap: 01/27/2016 negative Last mammogram: 07/04/2021, Breast MRI 12/31/21 - both normal Last colonoscopy: 05/01/2016 INTERVAL HISTORY: Savana Patel reports that she feels well. No shortness of breath, cough, or chest pain. No abdominal pain, nausea, vomiting, diarrhea, or constipation. No dysuria, gross hematuria, urinary frequency, urinary urgency, or incontinence. No pain. No swelling in extremities. No rashes, skin lesions, blisters or mouth sores. No headaches. No tinnitus or changes in hearing. No fevers or chills. She has had no SOB since starting mirvetuximab treatment. Treatment has mostly been affecting her eyes. She feels her finger tip and feet neuropathy is worsening. She has trouble turning pages and gripping objects, no troubles putting in earrings or tying her shoes. Her ECOG performance status is zero (fully active, able to carry on all pre-disease performance without restriction). PHYSICAL EXAM: VITALS: BP 138/69 Pulse 65 Temp 36.4 C (97.6 F) Ht 162.6 cm (5' 4) Wt 55.7 kg (122 lb 14.4 oz) SpO2 98% BMI 21.10 kg/m Roxanna Rose MA December 09, 2023 9:19 AM GENERAL: Patient is a well developed, well nourished, no acute distress. Presenting with her . SKIN: Color, texture, turgor normal. No rashes or lesions. HEENT: Normocephalic, atraumatic, mucus membranes moist, and no lesions. NECK: Supple, no adenopathy; thyroid symmetric, normal size, no bruits. LUNGS: Respirations unlabored. Chest clear. No wheezing. HEART: Regular rate and rhythm. No murmer. No JVD. ABDOMEN: Nontender. No palpable masses. No hernia felt. Liver and spleen not palpably enlarged. No ascites apparent. PELVIC: Vulva normal in appearance and nontender. Vagina no lesions. No pelvic masses. Uterus and cervix surgically absent. PSYCHIATRIC: Alert, cooperative. Normal affect. Normal behavior. LYMPH NODES: No palpable enlarged nodes in neck or groin. NEURO: Normal sensory. Motor intact and symmetric. Gait normal. LOWER EXTREMITIES: Not tender. No ulcers or swelling. Deep tendon reflexes are diminished but present. Veneer Sander for exam: Roxanna Hogan MA ASSESSMENT & PLAN: 09/10/2020 - Dr. 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 Interval testing since last visit discussed, CA125 reviewed and within normal limits. Patient is up-to-date with health maintenance including mammogram, colonoscopy and advanced directives. Reviewed issues of survivorship including sexual health after cancer treatment, mental health and support systems. Importance of cancer surveillance and early detection of recurrence reinforced. 10/28/2020- Heather Lutz NP (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 Advised her value is stable. Last CT scan was in March 2020. Will order CT of the chest abdomen and pelvis for reevaluation while on PARPi therapy. Patient would like to establish with Dr. Cote, will move her appointment with me from 12/[address] Dawson on 12/[address] scans the week before. Continue monthly labs while on PARPi therapy Patient verbalized an understanding and agreed with the plan. Instructed to call if she has any questions or concerns. 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 Patient expressed concern about receiving the COVID vaccine while taking Olaparib. I advised the patient to continue with the COVID vaccine and discussed findings that supported my recommendation with her. Patient is receptive to recommendation. I answered all of the patient's and patient's 's questions and addressed their concerns. Plan to RTC in March [address] before and in June 2021. Continue with monthly CBC, and CA 125 prior to office visit with me in [place]. Patient verbalized an understanding and agreed with the plan. 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 I reviewed the most recent CT results with the patient which showed no acute pathology, no suspicious pulmonary nodules, no thoracic lymphadenopathy in the chest, and no acute pathology, and no mass or lymphadenopathy in the abdomen and pelvis. Ms. Patel received the 2nd COVID vaccine in January, and reports experiencing hot flashes since that time. I believe that this might be due to the Lynparza. Ms. Patel also complains of leg cramps that onset at night. I recommend taking multivitamins daily, as well as eating a diet rich in Potassium. Ms. Patel will continue taking Lynparza until the last day in May. Plan to RTC on June 25, [address], CBC, and CA [address] results show no new evidence of disease, we will discuss stopping her PARP. We will discuss the cancer surveillance timeline at the next visit. 07/04/2021 Stop lynparza. Ok to stop protonix in 2-3 weeks after stopping lynparza. I recommend leaving [place] for one year. Discuss in one year. Discussed no scans needed unless concerning s/s of recurrence. CA 125 prior to each office visit. 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 Discussed she may have some improvement but hard to say at this point. Recommend KN95 with omicron variant. Discussed covid testing guidelines. Follow up in 3 months 10/01/2021 Impression: History of Ovarian Cancer, most recently had completed Olaparib . CA 125 is 10, stable, but she is worried because it has increased by 1 point. Discussed the significance of small changes in CA 125 and anxiety which often accompany's this. Plan: CA 125 and clinical examination in December. Vulvar dryness and itching. Will prescribe Lotrisone cream. Said she had this in past and it helped her. She will call office if symptoms of itching, and dryness don't resolve in the next couple of weeks. 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 CA 125 is stable. Some bladder symptoms at times. Intermittent. Discussed pelvic floor PT. Will trial melatonin for insomnia and some assistance with constipation. BMD ordered for osteopenia screening. 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 No clinical evidence of disease. She has been off her PARP for approximately 9 months. Repeat CA 125 in 3 months. If CA 125 value is >15, (the roberto value,) will check CT scan as well. Reviewed signs and symptoms of recurrence and told to call with persisting concerns. Follow up in clinic in June for continued surveillance. 04/22/2022 She is feeling a bit better. I reviewed the recent labs she had. Nothing actionable. No clinical evidence of diverticulitis or UTI. She has had a flu shot. I advise getting the covid bivalent booster. CA 125 again in June a couple days before she sees me. She is in agreement with these plans. 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 Recently her CA 125 has jumped from 14 (04/13/22) to 125 (06/18/22). PLAN CT Chest & Abd/Pel to be done in [place] early next week. Contact clinic if CT is scheduled for later than Wednesday to reschedule virtual visit. Follow up Wednesday07/01/22 to review results of CT scan and discuss her care plan. 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 Would be considered [place] sensitive. Cancer appears to be involving distal ileum, and possibly sigmoid colon and right psoas. There may be sub-centimeter lesions elsewhere in the abdominal cavity. These findings were reviewed in detail with . Options for management include secondary debulking, possibly with HIPEC, followed with chemotherapy vs chemotherapy alone. To better assess whether secondary debulking would be appropriate, a pelvic MRI will be checked with focus on the possible involvement of the psoas muscle and surrounding blood vessels. If secondary debulking not advised, a CT guided biopsy of the recurrence will be considered as this sample can be sent for somatic tumor testing which can guide future treatment decisions. PLAN Review her case at the next Decontamination Technician/Onc Tumor Conference. MRI to be done in [place], [facility] for later this week. Follow up Wednesday07/08/22 to review Tumor Board discussion and MRI results. We will confirm the care plan at this time. 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 Her case was discussed in Tumor Board on 07/07/22. 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 If Bevacizumab is started, beginning with cycle number 3 of chemotherapy, consider single agent Bevacizumab following several cycles of carboplatin, Paclitaxel, and Bevacizumab Side effects of treatment plan reviewed, questions answered to patient's satisfaction. She is agreeable with this plan. Symptoms concerning for worsening disease reviewed. Instructed to contact this clinic if she has any questions. PLAN She wishes to receive her chemotherapy in [place] with Dr.Paul Eve DO. A copy of this note will be forwarded to him today. I will reach out to to fascilitate an appointment [phone] Follow up with me at the [facility] 2 weeks after her second cycle of chemotherapy, with a CT prior to that appointment. Will decide if Bevacizumab should be added at this time. 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 She is s/p cycle two of chemotherapy with Carboplatin and Paclitaxel. No unexpected toxicity. Improvement of disease burden on CT Discussed potential addition of Bevacizumab to current chemotherapy plan. Given indication of persistent tethering of cancer to right colon on CT, Bevacizumab is not iadvised at this time. PLAN Continue chemotherapy with carbo/taxol under 's supervision. Repeat CT after cycle 6, will place order for this. Follow up in this office after cycle 6, to review the CT and discuss maintenance therapy options. 08/31/22 Telephone Call with Corinne Santana RN Spoke with pt who reports that she was given chemo today at [facility] and was accidentally given michael along with her carbo/taxol which she was not supposed to receive per her OV with Eve on 08/28. Pt is still very anxious r/t the error and is calling to be certain the Rocael is aware of the situation. Pt is questioning whether she should expect her bowel to perforate due to this mistake. Explained that this is a known but relatively rare side effect. There is no certainty it will or will not happen. Reviewed S&S of acute abd that would require immediate medical attention. Ensured that pt has on-call employee relations consultant phone number. Pt states she was also given the on-call onc number at [facility]. Also explained that the med error will be reported and go through the proper channels to ensure proper review. Pt remains anxious and requests to speak directly to Orgas. Pt was offered a televisit on 09/02 at 0900 which she accepted. The appt will be scheduled. Pt is appreciative of conversation and information discussed. 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 She is s/p cycle three of chemotherapy with Carboplatin and Paclitaxel. Bevacizumab was given with cycle 3, which was not planned based on CT findings). Presently no concerning symptoms related to bevacizmab administration. Explained that bevacizumab is an approriate agent in her type of cancer, and though not planned to have been given, holding this agent prior to last cycle of chemotherapy was a judgement call. We reviewed serious but uncommon side effect of bowel perforation or peritonitis. Reviewed other side effects of bevacizumab. Reviewed alternative names of bevacizumab including the version she received, Zirabev. Addressed her anxiety surrounding the unplanned dose of bevacizumb given. PLAN Repeat CT after cycle 4 of chemotherapy (taxol and carboplatin) Will readdress potential role for bevacizumab in treatment upon review of future scans Follow up as planned in the office to discuss scans & care plan. 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 Most recent CT imaging showing stable disease burden. 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 Discussed option of continuing with current therapy with understanding that future chemotherapy will not likely result in significant reduction in tumor burden, but stable disease for some time is possible, though with high chance of worsening chemotherapy associated toxicity.. Other treatment options discussed included chemo holiday vs clinical trial vs potential surgery. PLAN Will aim to present ' case at Tumor Board at next available presentation. Follow up via telephone visit to discuss Tumor Board's recommendations & determine her care plan. Ok to go for eye exam Order placed for urine culture to be completed at [facility]. Signs and symptoms of worsening disease reviewed. Contact this office with any questions or concerns prior to that appointment. 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 Chemo toxicity reported; grade 2 neuropathy in hands, fatigue also reported. Post-treatment CT imaging showed stable disease burden, CA 125 stable. Discussed results of Decontamination Technician/Onc Tumor Board. Recommendation is continued chemotherapy with Doxil, single agent, 40 mg/m2 IV every 4 weeks. No growth factor with cycle 1, reassess need for growth factor pending marrow toxicity. Benefits, risks, side effects, and treatment schedule of Doxil discussed. Total number of cycles required cannot be determined at this time, plan for at least 6. Questions answered to patient's satisfaction. PLAN She wishes to receive her chemotherapy under the direction of ; a copy of this note will be shared with him. CT scans to be repeated following 3 treatments. Return to clinic following cycle 3 to review her imaging results and discuss her treatment. Contact this office with any questions or concerns prior to then. 03/09/2023 Recurrent fallopian tube carcinoma. Germline BRCA2 mutation. Last koyuk based regimen completed October 2022. Presently on doxil. Dose reduced to 30 mg/m2 for cycle 3 due to PPE. Following 3 cycles of treatment, disease remains stable. She is tolerateing Doxil better than carbo and taxol. Manageable PPE and mucocitis of the mouth. PLAN Repeat CT scan prior to cycle #7 at current dose of Doxil. I provided information regarding chilling of her hands the day before, of and after Doxil treatment. She is also using medicated mouthwash to prevent mouth sores. Regarding perineum advised her to apply Vaseline and may also use small amount of steroid ointment if Vaseline is not sufficient. I will see her in May to review CT scan prior to receiving cycle of treatment. 07/02/2023 Recurrent fallopian tube carcinoma. Germline BRCA2 mutation. Recent cecal volvulus. Last koyuk based regimen completed October 2022. Last chemo with doxil was several weeks ago. CBC ok for treatment. Patient scheduled for a laparotomy, removal of right colon, possible ileostomy, removal of other areas of cancer seen in the abdomen and pelvis on 07/14/2023. Consent signed in clinic today. EKG earlier today normal. Briefly reviewed pre-operative instructions and post-operative restrictions. Instructed to stop PO intake on the 23rd after midnight. Informed patient she will receive further details during pre-op visit with a nurse and by anesthesiology. Answered patient's questions. 08/13/2023 Recurrent fallopian tube cancer with recent surgery to resect a cecal volvulus associated with her cancer. Last doxil received 04/2023, her cancer is considered to have progressed on doxil and likely koy[place] refractory. Given pathology results, she will need additional chemotherapy. We will evaluate her for a clincal trial and if not eligible will consider other standard agents. Ordering FOLR1 testing on tumor; informed patient of drug used if FOLR1 positive. If FOLR1 negative, consider pembrolizumab, oral cytoxan and bevacizumab. Options: Barring participation on a clinical trial, she would like to resume chemo closer to home as she has been doing. I will review results and treatment options over video virtual visit in a couple weeks. Advised stopping Colace for a couple of days, can resume if starts experiencing constipation. Can try OTC nystatin for vaginal pruritus. 12/09/2023 Recurrent fallopian tube cancer, FOLR1 positive, s/p cycle 4 of mirvetuximab under direction of Hem/Onc Dr. Cruz. Grade 1 neuropathy, heading to grade 2. Most troublesome toxicity has been that of her eyes. Reviewed length of treatment based on toxicity to treatment and disease status. Answered patient's questions. I have advised Ms Patel discuss reducing dose to 5 mg/kg/dose and/or extending the interval between treatment with Dr. Cruz. CA 125 slightly higher than last value 3 weeks ago. No evidence of worsening disease per CT abd/pel and exam today. CT chest report not released yet, advised her to have Dr. Cruz review these results with her once posted. I recommend a repeat CT scan [address] scan. Return to see me in early April, shortly after CT. Documentation from my clinic notes of previous visit on 09/02/2023 was copied and pasted, documentation has been reviewed and edited as necessary and is current for today. ATTESTATION Scribe Attestation: By signing my name below, I, Elizabeth Corbin, attest that this documentation has been prepared under the direction and in the presence of Fang Cote MD. Electronically Signed: Chasity Stephens. December 09, 2023 10:20 AM. Provider Attestation: I, Dr. Fang Cote, personally performed the services described in this documentation. All medical record entries made by the scribmisa were at my direction and in my presence. I have reviewed the chart and discharge instructions (if applicable) and agree that the record reflects my personal performance and is accurate and complete. Electronically Signed: Fang Cote MD. December 19, 2023 10:08 PM documented in this encounter 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 Initially underwent pelvic ultrasound on 09/01/2018. Uterus appeared normal. The endometrial stripe was 2.3 mm. Right and left ovaries appeared normal. However there was a large amount of free fluid in the pelvic cul-de-sac. CT A/P 09/08/2018: Liver: No mass. Homogeneous texture. Biliary: No ductal dilatation is seen. Gallbladder is unremarkable. Spleen: Spleen is unremarkable. Pancreas: No mass or duct dilation. Adrenals: Adrenal glands are unremarkable. Kidneys: No mass, calculus or hydronephrosis is seen. GI tract: No bowel dilatation is seen. No evidence of obstruction. Lymph nodes: No evidence of adenopathy. Mesentery/Peritoneum: There is increased soft tissue density best seen in the coronal views extending from the lower abdomen into the pelvic area. This could represent peritoneal involvement with tumor. This is seen on coronal image 37 and axial images 99 through 122. It extends across the anterior aspect of the pelvic area seen on axial image 124. Vasculature: No evidence of dilatation of the abdominal aorta. CT PELVIS: Pelvis: There is a large amount of free fluid or loculated fluid in the pelvis suggesting that there could be an enhancing rim surrounding this fluid is seen on image 127 and measures 10.6 x 6.1 cm. Bones/Soft Tissues: No significant findings identified. Lower thorax: Unremarkable. CA125 was 1153 U/mL. Had employee relations consultant onc evaluation and CT chest unremarkable. Underwent exploratory laparotomy, optimal tumor bulking, total abdominal hysterectomy, bilateral salpingo-oophorectomy, resection of bladder cul-de-sac and pelvic peritoneal disease along with resection of omental caking with super colic omentectomy on 10/06/2018. Pathology: FINAL DIAGNOSIS 1. 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 2. 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 3. Uterus, cervix, bilateral ovaries and fallopian tubes, and bladder/pelvic peritoneum, hysterectomy and excision (C) Left fallopian tube - High grade serous carcinoma (see comment and synoptic report). Right fallopian tube - Positive for involvement by high grade serous carcinoma. Bilateral ovaries - Positive for involvement by high grade serous carcinoma. Uterine serosa - Positive for involvement by high grade serous carcinoma. Bladder/pelvic peritoneum - Positive for involvement by high grade serous carcinoma. Endometrium - Inactive endometrium. Myometrium - Negative for malignancy. Cervix - Negative for malignancy. SYNOPTIC REPORT OF BRAUN PATHOLOGIC FINDINGS UTERUS, CERVIX, BILATERAL TUBES AND OVARIES, BLADDER, AND PELVIC PERITONEUM: Procedure: Total hysterectomy and bilateral salpingo-oophorectomy Omentectomy Peritoneal biopsies Specimen Integrity: Left fallopian tube serosa intact Primary Tumor Site: Left fallopian tube Ovarian Surface Involvement: Present Specify laterality (if applicable): Bilateral Fallopian Tube Surface Involvement: Present Specify laterality (if applicable): Bilateral Tumor Size: Greatest dimension: 1.6 cm Histologic Type: Serous carcinoma Histologic Grade: Not applicable Two-tier grading System: High grade Implants: Not applicable/not sampled Involvement of other tissues/organs: Right ovary Left ovary Right fallopian tube Pelvic peritoneum Omentum Other organs/tissues (specify): Uterine serosa Largest extrapelvic peritoneal focus, macroscopic (greater than 2 cm) Peritoneal Ascitic Fluid, Not submitted/unknown Treatment Effect: No known presurgical therapy Regional Lymph Nodes: No nodes submitted or found Pathologic Stage Classification (pTNM, AJCC 8th ed) TNM Descriptors: Not applicable Primary Tumor (pT): pT3c: Macroscopic peritoneal metastasis beyond pelvis more than 2 cm in greatest dimension with or without metastasis to the retroperitoneal lymph nodes (includes extension to capsule of liver and spleen without parenchymal involvement of either organ) Regional Lymph Nodes (pN): pNX: Cannot be assessed Distant Metastasis (pM): Not applicable/Not confirmed pathologically in this case Previous therapy: 1) 11/11/2018 - 02/03/2019: PACLITAXEL 80 D1,8,15 CARBOPLATIN 6 D1 - Q21D s/p 4 cycles. *neutropenia/thrombocytopenia causing treatment delay. Neulasta OnPro added; switch to Q21D dosing of Taxol with cycles 5 & 6 02/23/2019 - 03/17/2019: PACLITAXEL 135 D1 CARBOPLATIN 6 D1 - Q21D s/p 2 cycles. 2) 06/30/2019 - 06/20/2021: olaparib (LYNPARZA) 150 mg tablet; 300 mg BID. CTs 06/29/2022: Mesentery/Peritoneum: * New 0.4 cm anterior mesenteric fat nodule (8:57) * Confluent infiltrative soft tissue in RIGHT false pelvis surrounding the terminal ileum and ascending colon (cecum deep in pelvis) and probably affecting the sigmoid colon; difficult to precisely measure as it envelops bowel but including bowel measures approximately 4.5 x 2.9 cm (8:101); process extends to the RIGHT psoas muscle * Several small subtle anterior mesenteric fat nodules * No free abdominal fluid MRI pelvis 07/02/2022: Similar imaging findings since CT 06/29/2022, redemonstrating pelvic peritoneal/serosal carcinomatosis involving segments of bowel predominantly in the right anterior pelvis, with confluent soft tissue encasing the proximal ascending colon and causing relative upstream dilation of the low-lying cecum suggesting developing colonic obstruction. No small bowel dilation. No pelvic lymphadenopathy. 3) Carboplatin/paclitaxel x6 cycles. Completed 11/02/2022. Stable disease. Recommended to retry carbo/paclitaxel with potential addition michael if disease clears the bowel. 4) Doxil tolerated very well. PD 05/27/2023. Current therapy: CTs 05/27/2023 demonstrated progression of disease with an increase in size of irregular soft tissue density in the right pelvis as well as increasing thickening of the wall of the cecum. Presented to the ED at [facility] about a week later. CT scan demonstrated possible cecal volvulus. She was transferred to [facility]. Managed nonsurgically with NG decompression. NG was removed on her second hospital day and her diet was advanced to clear liquids and then the following day advance to full liquids then to gastrointestinal soft diet on day 3. She was discharged home with plans for outpatient follow-up and colectomy with possible cytoreduction. Underwent open right hemicolectomy on 07/14/2023. Initially Dr. Dawson performed laparotomy and excised several lower pelvic lesions. Dr. Jes maldonado performed the right hemicolectomy. He observed kinking of the cecum, proximal ascending colon and some of the distal ileum coming together causing narrowing of the pedicle around which the colon was volvulized. Pathology: FINAL DIAGNOSIS A. 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 B. 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 C. 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 - Background small bowel with acute serositis, possibly procedure-related. - Appendix with fibrous obliteration. - Thirteen lymph nodes, negative for malignancy (0/13). D. Fascia, anterior abdominal wall, excision: - Fat necrosis with associated dystrophic calcification, negative for malignancy. OV 07/30/2023: Discharged on apixaban 2.5 mg BID for VTE prophylaxis. Had hematochezia at home. 2 RBC transfusions. Apixaban stopped. Can't get strength back. On GI soft/Low residual diet. Has an appetite. No nausea. Abdominal soreness when standing or walking. Now--about 2-3 BMs daily. Soft to loose stools. No blood. Was advised to use Colace. Stopped two days ago b/c ongoing loose stools and urgency. No episodes incontinence. Continues on SALLY inhibitor 10 mg daily. Noticed swelling of right foot last evening. Current therapy: 1) Elahere. Presents for ongoing oncologic management. Interim history: Continues to tolerate Elahere well. Mild worsening of fingertip neuropathy but still able to write well and turn pages. Vision is stable. Gets mild blurriness after use of eyedrops. Can see distance well. No cough, wheezing or shortness of breath. Appetite is normal. No abdominal bloating or pain. Bowels have been moving on a regular basis with formed stools. Occasionally looser if has dairy. PMH, medications and allergies personally reviewed by me today. Any changes documented in appropriate section. ROS: Constitutional: Denies episodes of fever and night sweats. Neuro: Denies MACHADO, vertigo, dizziness and imbalance. HEENT: No recent change in voice, vision or hearing. Resp: See above. CVS: Denies exertional chest pain, PND, orthopnea and LE edema. GI: Denies dysgeusia. Denies symptoms of stomatitis. : Denies dysuria or gross hematuria. Endo: Denies hot flashes. Denies polyuria and polydipsia. Denies heat and cold intolerance. Musculoskeletal: Denies bone, back, joint and muscular pain. Derm: Denies rash. Denies jaundice and diffuse pruritis. Heme: Denies unusual bleeding and unexplained bruising. Psych: Normal mood. PHYSICAL EXAM: Vitals: Blood pressure 95/64, pulse 83, temperature 36.9 C (98.5 F), temperature source Temporal, weight 55.1 kg (121 lb 8 oz), SpO2 97%. Well-appearing and in no acute distress. EYES: Sclerae are anicteric bilaterally. No conjunctival injection. LYMPHATIC: No palpable cervical or supraclavicular adenopathy. RESPIRATORY: Inspiratory breath sounds are of normal intensity in all bernabe. CARDIOVASCULAR: Rhythm is regular. ABDOMEN: The abdomen is nondistended. The abdomen is soft and nontender throughout. No mass or fluid wave. Extremities: No swelling of the LEs. SKIN: No jaundice or rash. LABS: Latest Ref [facility] 12/06/2023 WBC 3.70 - 11.00 k/uL 5.26 RBC 3.90 - 5.20 m/uL 5.17 Hemoglobin 11.5 - 15.5 g/dL 13.6 Hematocrit 36.0 - 46.0 % 42.5 MCV 80.0 - 100.0 fL 82.2 MCH 26.0 - 34.0 pg 26.3 MCHC 30.5 - 36.0 g/dL 32.0 RDW-CV 11.5 - 15.0 % 17.0 (H) Platelet Count 150 - 400 k/uL 129 (L) MPV 9.0 - 12.7 fL 9.1 Neut% % 62.9 Abs Neut (ANC) 1.45 - 7.50 k/uL 3.31 Lymph% % 23.2 Abs Lymph 1.00 - 4.00 k/uL 1.22 [place]% % 9.7 Abs [place] <0.87 k/uL 0.51 Eosin% % 3.2 Abs Eosin <0.46 k/uL 0.17 Baso% % 0.6 Abs Baso <0.11 k/uL 0.03 Immature Gran % % 0.4 IMMATURE GRANS (ABS) <0.10 k/uL <0.03 NRBC /100 WBC 0.0 Absolute nRBC <0.01 k/uL <0.01 DTYPE Auto Protein, Total 6.3 - 8.0 g/dL 7.4 Albumin 3.9 - 4.9 g/dL 4.2 Calcium 8.5 - 10.2 mg/dL 9.8 Bilirubin, Total 0.2 - 1.3 mg/dL 0.3 Alkaline Phosphatase 34 - 123 U/L 89 AST 13 - 35 U/L 33 ALT 7 - 38 U/L 29 Glucose 74 - 99 mg/dL 97 BUN 7 - 21 mg/dL 23 (H) Creatinine 0.58 - 0.96 mg/dL 0.80 Sodium 136 - 144 mmol/L 139 Potassium 3.7 - 5.1 mmol/L 4.3 Chloride 98 - 107 mmol/L 103 CO2 22 - 30 mmol/L 26 Anion Gap 8 - 15 mmol/L 10 eGFR >=60 mL/min/1.73m 77 ASSESSMENT/PLAN: (C56.1, C56.2) Malignant neoplasm of both ovaries (HCC) (primary encounter diagnosis) Assessment: -KPS is 60% (due to recent surgery). -BRCA2 mutation (tested 04/2019). -Baseline CA125 1153 U/mL. -Now status post right hemicolectomy with some tumor sampling/debulking. -No symptoms to suggest cardiomyopathy. -FOLR1 IHC results--100% of cells stained +2-3+4 -Tolerating Elahere very well. Subjectively, visual acuity stable. Neuropathy slightly worse but not disabling. No pulmonary symptoms. Continued therapy outweighs risks. -Reviewed CBC. Mild thrombocytopenia that is asymptomatic and allows continued therapy. No evidence of recurrent iron deficiency anemia at this time. -Blood pressure under excellent control. -CA125 declined very nicely following cycle #1. Plan:. -Okay for Elahere cycle #4 tomorrow. -Recheck CBC/CMP day of treatment. -Durezol eyedrops per Dr. Nichols's instructions. -Continue Systane moisturizing drops. -Follow-up on today's CA125 and CT results. -Dose reduction if neuropathy worsens. Portions of this documentation were copied and pasted from previous office visit notes in order to provide a cohesive continuity of the history. The note has been reviewed and edited and updated as necessary. Js Cruz DO documented in this encounter [facility] 12-06-2023 History of Presen t illness Narrative Patient is here for IVAD port flush/blood draw. IVAD is located in right upper chest. Site cleansed with Chloraprep IVAD accessed with a #20 gauge 3/4 non-coring Gripper needle Flush with 5cc's Normal Saline. Blood Return: Good. 10 cc's blood aspirated and discarded. Blood drawn for CBC, CMP, and Ca-125. Flushed with: 20 ml Normal Saline. Non-coring needle removed. Paper tape applied to puncture site. Site negative for redness, edema or tenderness. Patient tolerated procedure well. Lilia Stevens RN documented in this encounter [facility] 12-02-2023 History of Presen t illness Narrative Radiology Service Progress Note PATIENT NAME: Savana Patel DATE OF SERVICE: December 02, 2023 TIME: 9:23 AM PATIENT IDENTITY VERIFICATION COMPLETED USING TWO (2) IDENTIFIERS: Name and Date of confirmed by patient verbally. FALL SCREENING: Has the patient had 2 falls in the last year or 1 fall with injury or currently using an Ambulatory Assistive Device (Walker, Cane, Wheelchair, Crutches, etc.)? No PATIENT GENDER DATA: Female. status: : No status: NO. PATIENT RELEVANT IMPLANT DATA REVIEWED: Yes PATIENT PRESENTS WITH AN IMPLANTABLE OR ATTACHED FRETTED STRING INSTRUMENT REPAIRER: No RADIOLOGY DEPARTMENT: CT; Exam(s) Completed: Chest Abdomen Pelvis PERIPHERAL IV DATA: power port accessed by hemoc SIGNED BY: RT Laurie(R) December 02, 2023 9:23 AM documented in this encounter [facility] 11-17-2023 History of Presen t illness Narrative Pt states has blurry vision from cataract with opthalmologic exams every 2 weeks. Subjectively pt states slightly worse for about 30 minutes after she uses drops. Pt is on schedule with her eye drops (steroid and lubricating) as well as moisturizing (rewetting) drops. Denies other issues. Pt wears glasses. Lilia Stevens RN documented in this encounter 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 Initially underwent pelvic ultrasound on 09/01/2018. Uterus appeared normal. The endometrial stripe was 2.3 mm. Right and left ovaries appeared normal. However there was a large amount of free fluid in the pelvic cul-de-sac. CT A/P 09/08/2018: Liver: No mass. Homogeneous texture. Biliary: No ductal dilatation is seen. Gallbladder is unremarkable. Spleen: Spleen is unremarkable. Pancreas: No mass or duct dilation. Adrenals: Adrenal glands are unremarkable. Kidneys: No mass, calculus or hydronephrosis is seen. GI tract: No bowel dilatation is seen. No evidence of obstruction. Lymph nodes: No evidence of adenopathy. Mesentery/Peritoneum: There is increased soft tissue density best seen in the coronal views extending from the lower abdomen into the pelvic area. This could represent peritoneal involvement with tumor. This is seen on coronal image 37 and axial images 99 through 122. It extends across the anterior aspect of the pelvic area seen on axial image 124. Vasculature: No evidence of dilatation of the abdominal aorta. CT PELVIS: Pelvis: There is a large amount of free fluid or loculated fluid in the pelvis suggesting that there could be an enhancing rim surrounding this fluid is seen on image 127 and measures 10.6 x 6.1 cm. Bones/Soft Tissues: No significant findings identified. Lower thorax: Unremarkable. CA125 was 1153 U/mL. Had employee relations consultant onc evaluation and CT chest unremarkable. Underwent exploratory laparotomy, optimal tumor bulking, total abdominal hysterectomy, bilateral salpingo-oophorectomy, resection of bladder cul-de-sac and pelvic peritoneal disease along with resection of omental caking with super colic omentectomy on 10/06/2018. Pathology: FINAL DIAGNOSIS 1. 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 2. 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 3. Uterus, cervix, bilateral ovaries and fallopian tubes, and bladder/pelvic peritoneum, hysterectomy and excision (C) Left fallopian tube - High grade serous carcinoma (see comment and synoptic report). Right fallopian tube - Positive for involvement by high grade serous carcinoma. Bilateral ovaries - Positive for involvement by high grade serous carcinoma. Uterine serosa - Positive for involvement by high grade serous carcinoma. Bladder/pelvic peritoneum - Positive for involvement by high grade serous carcinoma. Endometrium - Inactive endometrium. Myometrium - Negative for malignancy. Cervix - Negative for malignancy. SYNOPTIC REPORT OF BRAUN PATHOLOGIC FINDINGS UTERUS, CERVIX, BILATERAL TUBES AND OVARIES, BLADDER, AND PELVIC PERITONEUM: Procedure: Total hysterectomy and bilateral salpingo-oophorectomy Omentectomy Peritoneal biopsies Specimen Integrity: Left fallopian tube serosa intact Primary Tumor Site: Left fallopian tube Ovarian Surface Involvement: Present Specify laterality (if applicable): Bilateral Fallopian Tube Surface Involvement: Present Specify laterality (if applicable): Bilateral Tumor Size: Greatest dimension: 1.6 cm Histologic Type: Serous carcinoma Histologic Grade: Not applicable Two-tier grading System: High grade Implants: Not applicable/not sampled Involvement of other tissues/organs: Right ovary Left ovary Right fallopian tube Pelvic peritoneum Omentum Other organs/tissues (specify): Uterine serosa Largest extrapelvic peritoneal focus, macroscopic (greater than 2 cm) Peritoneal Ascitic Fluid, Not submitted/unknown Treatment Effect: No known presurgical therapy Regional Lymph Nodes: No nodes submitted or found Pathologic Stage Classification (pTNM, AJCC 8th ed) TNM Descriptors: Not applicable Primary Tumor (pT): pT3c: Macroscopic peritoneal metastasis beyond pelvis more than 2 cm in greatest dimension with or without metastasis to the retroperitoneal lymph nodes (includes extension to capsule of liver and spleen without parenchymal involvement of either organ) Regional Lymph Nodes (pN): pNX: Cannot be assessed Distant Metastasis (pM): Not applicable/Not confirmed pathologically in this case Previous therapy: 1) 11/11/2018 - 02/03/2019: PACLITAXEL 80 D1,8,15 CARBOPLATIN 6 D1 - Q21D s/p 4 cycles. *neutropenia/thrombocytopenia causing treatment delay. Neulasta OnPro added; switch to Q21D dosing of Taxol with cycles 5 & 6 02/23/2019 - 03/17/2019: PACLITAXEL 135 D1 CARBOPLATIN 6 D1 - Q21D s/p 2 cycles. 2) 06/30/2019 - 06/20/2021: olaparib (LYNPARZA) 150 mg tablet; 300 mg BID. CTs 06/29/2022: Mesentery/Peritoneum: * New 0.4 cm anterior mesenteric fat nodule (8:57) * Confluent infiltrative soft tissue in RIGHT false pelvis surrounding the terminal ileum and ascending colon (cecum deep in pelvis) and probably affecting the sigmoid colon; difficult to precisely measure as it envelops bowel but including bowel measures approximately 4.5 x 2.9 cm (8:101); process extends to the RIGHT psoas muscle * Several small subtle anterior mesenteric fat nodules * No free abdominal fluid MRI pelvis 07/02/2022: Similar imaging findings since CT 06/29/2022, redemonstrating pelvic peritoneal/serosal carcinomatosis involving segments of bowel predominantly in the right anterior pelvis, with confluent soft tissue encasing the proximal ascending colon and causing relative upstream dilation of the low-lying cecum suggesting developing colonic obstruction. No small bowel dilation. No pelvic lymphadenopathy. 3) Carboplatin/paclitaxel x6 cycles. Completed 11/02/2022. Stable disease. Recommended to retry carbo/paclitaxel with potential addition michael if disease clears the bowel. 4) Doxil tolerated very well. PD 05/27/2023. Current therapy: CTs 05/27/2023 demonstrated progression of disease with an increase in size of irregular soft tissue density in the right pelvis as well as increasing thickening of the wall of the cecum. Presented to the ED at [facility] about a week later. CT scan demonstrated possible cecal volvulus. She was transferred to [facility]. Managed nonsurgically with NG decompression. NG was removed on her second hospital day and her diet was advanced to clear liquids and then the following day advance to full liquids then to gastrointestinal soft diet on day 3. She was discharged home with plans for outpatient follow-up and colectomy with possible cytoreduction. Underwent open right hemicolectomy on 07/14/2023. Initially Dr. Dawson performed laparotomy and excised several lower pelvic lesions. Dr. Jes maldonado performed the right hemicolectomy. He observed kinking of the cecum, proximal ascending colon and some of the distal ileum coming together causing narrowing of the pedicle around which the colon was volvulized. Pathology: FINAL DIAGNOSIS A. 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 B. 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 C. 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 - Background small bowel with acute serositis, possibly procedure-related. - Appendix with fibrous obliteration. - Thirteen lymph nodes, negative for malignancy (0/13). D. Fascia, anterior abdominal wall, excision: - Fat necrosis with associated dystrophic calcification, negative for malignancy. OV 07/30/2023: Discharged on apixaban 2.5 mg BID for VTE prophylaxis. Had hematochezia at home. 2 RBC transfusions. Apixaban stopped. Can't get strength back. On GI soft/Low residual diet. Has an appetite. No nausea. Abdominal soreness when standing or walking. Now--about 2-3 BMs daily. Soft to loose stools. No blood. Was advised to use Colace. Stopped two days ago b/c ongoing loose stools and urgency. No episodes incontinence. Continues on SALLY inhibitor 10 mg daily. Noticed swelling of right foot last evening. Current therapy: 1) Elahere. Presents for ongoing oncologic management. Interim history: Continues to tolerate Elahere symptomatically very well. Mild worsening of fingertip neuropathy but still able to write well and turn pages. But ophthalmology follow-up 10/18 she was noted to have some decrease in visual acuity. Rechecked earlier this week and was changed to Durezol drops. Subjectively she thinks vision is unchanged from second dose of Elahere. No cough, wheezing or shortness of breath. Appetite is normal. No abdominal bloating or pain. Bowels have been moving on a regular basis with formed stools. Occasionally looser if has dairy. PMH, medications and allergies personally reviewed by me today. Any changes documented in appropriate section. ROS: Constitutional: Denies episodes of fever and night sweats. Neuro: Denies MACHADO, vertigo, dizziness and imbalance. HEENT: No recent change in voice, vision or hearing. Resp: See above. CVS: Denies exertional chest pain, PND, orthopnea and LE edema. GI: Denies dysgeusia. Denies symptoms of stomatitis. : Denies dysuria or gross hematuria. Endo: Denies hot flashes. Denies polyuria and polydipsia. Denies heat and cold intolerance. Musculoskeletal: Denies bone, back, joint and muscular pain. Derm: Denies rash. Denies jaundice and diffuse pruritis. Heme: Denies unusual bleeding and unexplained bruising. Psych: Normal mood. PHYSICAL EXAM: Vitals: Blood pressure 124/69, pulse 70, temperature 36.7 C (98 F), temperature source Temporal, weight 54.9 kg (121 lb), SpO2 98%. Well-appearing and in no acute distress. EYES: Sclerae are anicteric bilaterally. No conjunctival injection. LYMPHATIC: No palpable cervical or supraclavicular adenopathy. RESPIRATORY: Inspiratory breath sounds are of normal intensity in all bernabe. CARDIOVASCULAR: Rhythm is regular. ABDOMEN: The abdomen is nondistended. Well-healed previous midline incision. The abdomen is soft and nontender throughout. No mass or fluid wave. Extremities: No swelling of the LEs. SKIN: No jaundice or rash. LABS: Latest Ref [facility] 11/12/2023 WBC 3.70 - 11.00 k/uL 5.30 RBC 3.90 - 5.20 m/uL 4.88 Hemoglobin 11.5 - 15.5 g/dL 12.9 Hematocrit 36.0 - 46.0 % 40.8 MCV 80.0 - 100.0 fL 83.6 MCH 26.0 - 34.0 pg 26.4 MCHC 30.5 - 36.0 g/dL 31.6 RDW-CV 11.5 - 15.0 % 17.0 (H) Platelet Count 150 - 400 k/uL 131 (L) MPV 9.0 - 12.7 fL 9.3 Neut% % 61.3 Abs Neut (ANC) 1.45 - 7.50 k/uL 3.25 Lymph% % 27.9 Abs Lymph 1.00 - 4.00 k/uL 1.48 [place]% % 9.1 Abs [place] <0.87 k/uL 0.48 Eosin% % 1.1 Abs Eosin <0.46 k/uL 0.06 Baso% % 0.4 Abs Baso <0.11 k/uL <0.03 Immature Gran % % 0.2 IMMATURE GRANS (ABS) <0.10 k/uL <0.03 NRBC /100 WBC 0.0 Absolute nRBC <0.01 k/uL <0.01 DTYPE Auto Protein, Total 6.3 - 8.0 g/dL 7.4 Albumin 3.9 - 4.9 g/dL 4.3 Calcium 8.5 - 10.2 mg/dL 10.3 (H) Bilirubin, Total 0.2 - 1.3 mg/dL 0.4 Alkaline Phosphatase 34 - 123 U/L 91 AST 13 - 35 U/L 33 ALT 7 - 38 U/L 32 Glucose 74 - 99 mg/dL 97 BUN 7 - 21 mg/dL 28 (H) Creatinine 0.58 - 0.96 mg/dL 0.94 Sodium 136 - 144 mmol/L 139 Potassium 3.7 - 5.1 mmol/L 4.0 Chloride 97 - 105 mmol/L 103 CO2 22 - 30 mmol/L 29 Anion Gap 9 - 18 mmol/L 7 (L) eGFR >=60 mL/min/1.73m 64 ASSESSMENT/PLAN: (C56.1, C56.2) Malignant neoplasm of both ovaries (HCC) (primary encounter diagnosis) Assessment: -KPS is 60% (due to recent surgery). -BRCA2 mutation (tested 04/2019). -Baseline CA125 1153 U/mL. -Now status post right hemicolectomy with some tumor sampling/debulking. -No symptoms to suggest cardiomyopathy. -FOLR1 IHC results--100% of cells stained +2-3+4 -Tolerating Elahere very well. Subjectively, visual acuity stable. Neuropathy slightly worse but not disabling. Continued therapy outweighs risks. -Reviewed CBC. Mild thrombocytopenia that is asymptomatic and allows continued therapy. No evidence of recurrent iron deficiency anemia at this time. -Blood pressure under excellent control. -CA125 declined very nicely following cycle #1. Plan:. -Okay for Elahere cycle #3 next Wednesday. -Recheck CBC/CMP day of treatment. -Durezol eyedrops per Dr. Nichols's instructions. -Continue Systane moisturizing drops. -Follow-up on today's CA125. -CTs following cycle #3. Portions of this documentation were copied and pasted from previous office visit notes in order to provide a cohesive continuity of the history. The note has been reviewed and edited and updated as necessary. Js Cruz DO documented in this encounter [facility] 11-12-2023 History of Presen t illness Narrative Patient is here for IVAD port flush/blood draw per [facility] protocol. IVAD is located in right upper chest. Site cleansed with Chloraprep IVAD accessed with a #20 gauge 3/4 non-coring Gripper needle Flush with 5cc's Normal Saline. Blood Return: Good. 10 cc's blood aspirated and discarded. Blood drawn for CBC and CMP. Flushed with: 20 ml Normal Saline. Non-coring needle removed. Paper tape applied to puncture site. Site negative for redness, edema or tenderness. Patient tolerated procedure well. documented in this encounter [facility] 11-01-2023 Telephone encounter Note He will order CT scans at her F/U apt on 11/11, Ill send a mycahrt response. Rut Mcintyre LPN [facility] 11-01-2023 Miscellaneous Notes He will order CT scans at her F/U apt on 11/11, Ill send a mycahrt response. Rut Mcintyre LPN Patient called stating she was to have scans after 3rd cycle of treatment and states her 3rd cycle is on the . Per last office visit notes - -CTs following cycle #3. Please enter order for CT. Patient states schedule Early AM appointment for her and advise her of date/time. She will contact Dr. Dawson's office to schedule follow up after CT is scheduled. documented in this encounter [facility] 11-01-2023 Telephone encounter Note Patient called stating she was to have scans after 3rd cycle of treatment and states her 3rd cycle is on the 29. Per last office visit notes - -CTs following cycle #3. Please enter order for CT. Patient states schedule Early AM appointment for her and advise her of date/time. She will contact Dr. Dawson's office to schedule follow up after CT is scheduled. [facility] Work Phone: 10-27-2023 Telephone encounter Note Received message from nurse that patient started eye drops as directed. Doreen Jerome RN [facility] 10-27-2023 Miscellaneous Notes Received message from nurse that patient started eye drops as directed. Doreen Jerome RN Called patient to make sure she started the prednisolone eye drops yesterday, there was no answer. A detailed message was left requesting a call back if she did not start the drops as directed by Dr. Nichols. Doreen Jerome RN documented in this encounter [facility] 10-26-2023 Nurse Note Pt confirms she took eye drops today prior to treatment [facility] 10-26-2023 Nurse Note Pt confirms she took eye drops today prior to treatment documented in this encounter [facility] 10-26-2023 Telephone encounter Note Called patient to make sure she started the prednisolone eye drops yesterday, there was no answer. A detailed message was left requesting a call back if she did not start the drops as directed by Dr. Nichols. Doreen Jerome RN [facility] 10-20-2023 Instructions Beatrice Chu LPN - 10/20/2023 9:52 AM EDT She should continue the prednisolone eyedrops 4 times a day for now but increase to 6 times a day on Wednesday and continue at 6 times a day for a week after treatment i.e. till the following Wednesday then go back to 4 times daily. documented in this encounter 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 Initially underwent pelvic ultrasound on 09/01/2018. Uterus appeared normal. The endometrial stripe was 2.3 mm. Right and left ovaries appeared normal. However there was a large amount of free fluid in the pelvic cul-de-sac. CT A/P 09/08/2018: Liver: No mass. Homogeneous texture. Biliary: No ductal dilatation is seen. Gallbladder is unremarkable. Spleen: Spleen is unremarkable. Pancreas: No mass or duct dilation. Adrenals: Adrenal glands are unremarkable. Kidneys: No mass, calculus or hydronephrosis is seen. GI tract: No bowel dilatation is seen. No evidence of obstruction. Lymph nodes: No evidence of adenopathy. Mesentery/Peritoneum: There is increased soft tissue density best seen in the coronal views extending from the lower abdomen into the pelvic area. This could represent peritoneal involvement with tumor. This is seen on coronal image 37 and axial images 99 through 122. It extends across the anterior aspect of the pelvic area seen on axial image 124. Vasculature: No evidence of dilatation of the abdominal aorta. CT PELVIS: Pelvis: There is a large amount of free fluid or loculated fluid in the pelvis suggesting that there could be an enhancing rim surrounding this fluid is seen on image 127 and measures 10.6 x 6.1 cm. Bones/Soft Tissues: No significant findings identified. Lower thorax: Unremarkable. CA125 was 1153 U/mL. Had employee relations consultant onc evaluation and CT chest unremarkable. Underwent exploratory laparotomy, optimal tumor bulking, total abdominal hysterectomy, bilateral salpingo-oophorectomy, resection of bladder cul-de-sac and pelvic peritoneal disease along with resection of omental caking with super colic omentectomy on 10/06/2018. Pathology: FINAL DIAGNOSIS 1. 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 2. 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 3. Uterus, cervix, bilateral ovaries and fallopian tubes, and bladder/pelvic peritoneum, hysterectomy and excision (C) Left fallopian tube - High grade serous carcinoma (see comment and synoptic report). Right fallopian tube - Positive for involvement by high grade serous carcinoma. Bilateral ovaries - Positive for involvement by high grade serous carcinoma. Uterine serosa - Positive for involvement by high grade serous carcinoma. Bladder/pelvic peritoneum - Positive for involvement by high grade serous carcinoma. Endometrium - Inactive endometrium. Myometrium - Negative for malignancy. Cervix - Negative for malignancy. SYNOPTIC REPORT OF BRAUN PATHOLOGIC FINDINGS UTERUS, CERVIX, BILATERAL TUBES AND OVARIES, BLADDER, AND PELVIC PERITONEUM: Procedure: Total hysterectomy and bilateral salpingo-oophorectomy Omentectomy Peritoneal biopsies Specimen Integrity: Left fallopian tube serosa intact Primary Tumor Site: Left fallopian tube Ovarian Surface Involvement: Present Specify laterality (if applicable): Bilateral Fallopian Tube Surface Involvement: Present Specify laterality (if applicable): Bilateral Tumor Size: Greatest dimension: 1.6 cm Histologic Type: Serous carcinoma Histologic Grade: Not applicable Two-tier grading System: High grade Implants: Not applicable/not sampled Involvement of other tissues/organs: Right ovary Left ovary Right fallopian tube Pelvic peritoneum Omentum Other organs/tissues (specify): Uterine serosa Largest extrapelvic peritoneal focus, macroscopic (greater than 2 cm) Peritoneal Ascitic Fluid, Not submitted/unknown Treatment Effect: No known presurgical therapy Regional Lymph Nodes: No nodes submitted or found Pathologic Stage Classification (pTNM, AJCC 8th ed) TNM Descriptors: Not applicable Primary Tumor (pT): pT3c: Macroscopic peritoneal metastasis beyond pelvis more than 2 cm in greatest dimension with or without metastasis to the retroperitoneal lymph nodes (includes extension to capsule of liver and spleen without parenchymal involvement of either organ) Regional Lymph Nodes (pN): pNX: Cannot be assessed Distant Metastasis (pM): Not applicable/Not confirmed pathologically in this case Previous therapy: 1) 11/11/2018 - 02/03/2019: PACLITAXEL 80 D1,8,15 CARBOPLATIN 6 D1 - Q21D s/p 4 cycles. *neutropenia/thrombocytopenia causing treatment delay. Neulasta OnPro added; switch to Q21D dosing of Taxol with cycles 5 & 6 02/23/2019 - 03/17/2019: PACLITAXEL 135 D1 CARBOPLATIN 6 D1 - Q21D s/p 2 cycles. 2) 06/30/2019 - 06/20/2021: olaparib (LYNPARZA) 150 mg tablet; 300 mg BID. CTs 06/29/2022: Mesentery/Peritoneum: * New 0.4 cm anterior mesenteric fat nodule (8:57) * Confluent infiltrative soft tissue in RIGHT false pelvis surrounding the terminal ileum and ascending colon (cecum deep in pelvis) and probably affecting the sigmoid colon; difficult to precisely measure as it envelops bowel but including bowel measures approximately 4.5 x 2.9 cm (8:101); process extends to the RIGHT psoas muscle * Several small subtle anterior mesenteric fat nodules * No free abdominal fluid MRI pelvis 07/02/2022: Similar imaging findings since CT 06/29/2022, redemonstrating pelvic peritoneal/serosal carcinomatosis involving segments of bowel predominantly in the right anterior pelvis, with confluent soft tissue encasing the proximal ascending colon and causing relative upstream dilation of the low-lying cecum suggesting developing colonic obstruction. No small bowel dilation. No pelvic lymphadenopathy. 3) Carboplatin/paclitaxel x6 cycles. Completed 11/02/2022. Stable disease. Recommended to retry carbo/paclitaxel with potential addition michael if disease clears the bowel. 4) Doxil tolerated very well. PD 05/27/2023. Current therapy: CTs 05/27/2023 demonstrated progression of disease with an increase in size of irregular soft tissue density in the right pelvis as well as increasing thickening of the wall of the cecum. Presented to the ED at [facility] about a week later. CT scan demonstrated possible cecal volvulus. She was transferred to [facility]. Managed nonsurgically with NG decompression. NG was removed on her second hospital day and her diet was advanced to clear liquids and then the following day advance to full liquids then to gastrointestinal soft diet on day 3. She was discharged home with plans for outpatient follow-up and colectomy with possible cytoreduction. Underwent open right hemicolectomy on 07/14/2023. Initially Dr. Dawson performed laparotomy and excised several lower pelvic lesions. Dr. Jes maldonado performed the right hemicolectomy. He observed kinking of the cecum, proximal ascending colon and some of the distal ileum coming together causing narrowing of the pedicle around which the colon was volvulized. Pathology: FINAL DIAGNOSIS A. 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 B. 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 C. 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 - Background small bowel with acute serositis, possibly procedure-related. - Appendix with fibrous obliteration. - Thirteen lymph nodes, negative for malignancy (0/13). D. Fascia, anterior abdominal wall, excision: - Fat necrosis with associated dystrophic calcification, negative for malignancy. OV 07/30/2023: Discharged on apixaban 2.5 mg BID for VTE prophylaxis. Had hematochezia at home. 2 RBC transfusions. Apixaban stopped. Can't get strength back. On GI soft/Low residual diet. Has an appetite. No nausea. Abdominal soreness when standing or walking. Now--about 2-3 BMs daily. Soft to loose stools. No blood. Was advised to use Colace. Stopped two days ago b/c ongoing loose stools and urgency. No episodes incontinence. Continues on SALLY inhibitor 10 mg daily. Noticed swelling of right foot last evening. Current therapy: 1) Nadia. Presents for ongoing oncologic management. Interim history: Tolerated first dose very well. No nausea or vomiting. No fatigue. Mild increase in fingertip numbness. Still able to write okay. Can pick up attendant small objects but needs her fingernails to turn pages of a book. Noticed some decrease in vision in both eyes. She was seen by Dr. Nichols yesterday. She was advised to resume prednisolone drops 4 times daily in each eye and increase to 6 times daily the day prior to and 4 days following chemotherapy then 4 times daily. If no improvement then she may be changed to Durezol. Has scheduled ophthalmologic follow-up in 2 weeks but knows to call sooner if she notices any further change in vision. No cough, wheezing or shortness of breath. Appetite is normal. No abdominal bloating or pain. Bowels have been moving on a regular basis with formed stools. PMH, medications and allergies personally reviewed by me today. Any changes documented in appropriate section. ROS: Constitutional: Denies episodes of fever and night sweats. Neuro: Denies MACHADO, vertigo, dizziness and imbalance. HEENT: No recent change in voice, vision or hearing. Resp: See above. CVS: Denies exertional chest pain, PND, orthopnea and LE edema. GI: Denies dysgeusia. Denies symptoms of stomatitis. : Denies dysuria or gross hematuria. Endo: Denies hot flashes. Denies polyuria and polydipsia. Denies heat and cold intolerance. Musculoskeletal: Denies bone, back, joint and muscular pain. Derm: Denies rash. Denies jaundice and diffuse pruritis. Heme: Denies unusual bleeding and unexplained bruising. Psych: Normal mood. PHYSICAL EXAM: Vitals: Blood pressure 128/71, pulse 66, temperature 36.4 C (97.6 F), temperature source Temporal, weight 54.9 kg (121 lb), SpO2 100%. Well-appearing and in no acute distress. EYES: Sclerae are anicteric bilaterally. No conjunctival injection. LYMPHATIC: No palpable cervical or supraclavicular adenopathy. RESPIRATORY: Inspiratory breath sounds are of normal intensity in all bernabe. CARDIOVASCULAR: Rhythm is regular. ABDOMEN: The abdomen is nondistended. Well-healed previous midline incision. The abdomen is soft and nontender throughout. No mass or fluid wave. Extremities: No swelling of the LEs. SKIN: No jaundice or rash. LABS: Latest Ref Rn 10/20/2023 WBC 3.70 - 11.00 k/uL 4.17 RBC 3.90 - 5.20 m/uL 4.53 Hemoglobin 11.5 - 15.5 g/dL 12.0 Hematocrit 36.0 - 46.0 % 38.6 MCV 80.0 - 100.0 fL 85.2 MCH 26.0 - 34.0 pg 26.5 MCHC 30.5 - 36.0 g/dL 31.1 RDW-CV 11.5 - 15.0 % 17.1 (H) Platelet Count 150 - 400 k/uL 131 (L) MPV 9.0 - 12.7 fL 9.7 Neut% % 59.6 Abs Neut (ANC) 1.45 - 7.50 k/uL 2.49 Lymph% % 28.8 Abs Lymph 1.00 - 4.00 k/uL 1.20 [place]% % 10.1 Abs [place] <0.87 k/uL 0.42 Eosin% % 0.5 Abs Eosin <0.46 k/uL <0.03 Baso% % 0.5 Abs Baso <0.11 k/uL <0.03 Immature Gran % % 0.5 IMMATURE GRANS (ABS) <0.10 k/uL <0.03 NRBC /100 WBC 0.0 Absolute nRBC <0.01 k/uL <0.01 DTYPE Auto ASSESSMENT/PLAN: (C56.1, C56.2) Malignant neoplasm of both ovaries (HCC) (primary encounter diagnosis) Assessment: -KPS is 60% (due to recent surgery). -BRCA2 mutation (tested 04/2019). -Baseline CA125 1153 U/mL. -Now status post right hemicolectomy with some tumor sampling/debulking. -No symptoms to suggest cardiomyopathy. -FOLR1 IHC results--100% of cells stained +2-3+4 -Tolerating Elahere very well. Did have some mild keratitis (new side effect of therapy) that is responding to increased prednisolone drops. -Mild worsening of neuropathy. But after discussion of the risks and potential benefits, she opted to proceed with treatment. -Reviewed CBC. Mild thrombocytopenia that is asymptomatic and allows continued therapy. No evidence of recurrent iron deficiency anemia at this time. -Blood pressure under excellent control. -We discussed continuing therapy but she would like to change schedule Mondays based on transportation convenience. Plan:. -Change Elahere cycle #2 to Wednesday. -Prednisolone eyedrops per Dr. Nichols's instruction. -Continue Systane moisturizing drops. -Follow-up on today's CA125. -CTs following cycle #3. Portions of this documentation were copied and pasted from previous office visit notes in order to provide a cohesive continuity of the history. The note has been reviewed and edited and updated as necessary. Js Cruz DO documented in this encounter [facility] 10-06-2023 Miscellaneous Notes TOXICITY CHECK SYMPTOM ASSESSMENT The patient is on Elahere Headache: No Visual Changes: right eye is more blurry Dizziness: No Do you have any periods of confusion? No Mood changes: No Mouth or throat pain: No Appetite: no changes in appetite, appetite good Taste changes: No Nausea: No Vomiting: No Heartburn: No. Weight gain/loss: No Episodes of palpitations/chest discomfort/pressure/pain No Shortness of breath: No Cough: No Diarrhea: no Constipation: no Bladder/Urinary Changes: None Pain: No=0 (pain 0 on a scale of 0-10). Fever: No Chills: No Cold sensitivity: No Numbness/weakness: No Edema: No Skin changes: No Itching: No Yellowing of skin or eyes: No Musculoskeletal/joint changes/issues No Bleeding issues: No Activity Level: Normal Do you need to take naps? No Does the patient need interventions or same day appointment: Patient was instructed to contact her eye doctor to discuss the increase in blurriness in right eye. Reinforced CURRENT treatment education based on current and anticipated symptoms. Discussed port/line care and patient verbalizes understanding: Yes Patient instructed to contact office or after hours Hematology/Oncology fellow for: temperature ? 100.4; questions or concerns. Patient verbalized understanding of when to seek medical attention and after hours number protocol. Doreen Jerome RN documented in this encounter [facility] 09-30-2023 Miscellaneous Notes Called and spoke with patient. Schedule is adjusted and she's is aware of date and time. Edna Armstrong Patient stated C2 was originally scheduled on 10/17 but was moved to 10/18 to keep it close to the Q21 day schedule. Patient is asking if she can move this treatment to 10/19 or another day that week? Patients is scheduled for a MOHS procedure on 10/18 and she will not be able to come to treatment on 10/18. Thank you. Doreen Jerome RN CYCLE 1/DAY 1 POST TREATMENT CALL Today's date: September 30, 2023 Treatment Regimen: Elahere C1D1 Date: 09/29/23 Called patient to follow-up on symptom management. Spoke with patient SYMPTOM ASSESSMENT Neuro: None CV/Resp: None GI/: None Integument: None Activity: Patient reported no changes in energy level, energy level good Pain: No=0 (pain 0 on a scale of 0-10). Fever: No Chills: No Reviewed eye drop calendar and instructions with . Answered his questions. Patient stated C2 was originally scheduled on 10/17 but was moved to 10/18 to keep it close to the Q21 day schedule. Patient is asking if she can move this treatment to 10/19 or back to 10/17? Patients is scheduled for a MOHS procedure on 10/18 and she will not be able to come to treatment on 10/18. Thank you. Any new referrals needed? No Reinforced CURRENT treatment education based on current and anticipated symptoms. Discussed port/line care and patient verbalizes understanding: Yes Patient instructed to contact office or after hours Hematology/Oncology fellow for: temperature ? 100.4; questions or concerns. Patient verbalized understanding of when to seek medical attention and after hours number protocol. Doreen Jerome RN documented in this encounter [facility] 09-29-2023 Miscellaneous Notes [place] Care Coordination FOLLOW-UP NOTE Patient identified by name and date of . YES Spoke to patient and spouse Summary: (Reason for follow-up) Follow up with patient/spouse chairside. Given an updated calendar with new start date and schedule for eye drops, reviewed and questions answered. Care Coordination Plan: Will follow up with phone call tomorrow and again next week. Instructed patient to call with any issues/concerns. Laura Alfonso RN September 29, 2023 documented in this encounter [facility] 09-27-2023 History of Presen t illness Narrative ONCOLOGY PATIENT EDUCATION NOTE TOPIC: Chemotherapy, Medications: Elahere Patient reviewed all Elahere material given to here. She has a calendar with eye drop schedule. She has an OV Dr. Cruz today to review and answer all of her questions, review side effects and clarify eye drop schedule. Per Dr. Cruz, patient does not need further education. Patient has had chemo education previously. This nurse will follow up with patient tomorrow at start of treatment and again later this week for update. Antonina Alfonso RN documented in this encounter 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 Initially underwent pelvic ultrasound on 09/01/2018. Uterus appeared normal. The endometrial stripe was 2.3 mm. Right and left ovaries appeared normal. However there was a large amount of free fluid in the pelvic cul-de-sac. CT A/P 09/08/2018: Liver: No mass. Homogeneous texture. Biliary: No ductal dilatation is seen. Gallbladder is unremarkable. Spleen: Spleen is unremarkable. Pancreas: No mass or duct dilation. Adrenals: Adrenal glands are unremarkable. Kidneys: No mass, calculus or hydronephrosis is seen. GI tract: No bowel dilatation is seen. No evidence of obstruction. Lymph nodes: No evidence of adenopathy. Mesentery/Peritoneum: There is increased soft tissue density best seen in the coronal views extending from the lower abdomen into the pelvic area. This could represent peritoneal involvement with tumor. This is seen on coronal image 37 and axial images 99 through 122. It extends across the anterior aspect of the pelvic area seen on axial image 124. Vasculature: No evidence of dilatation of the abdominal aorta. CT PELVIS: Pelvis: There is a large amount of free fluid or loculated fluid in the pelvis suggesting that there could be an enhancing rim surrounding this fluid is seen on image 127 and measures 10.6 x 6.1 cm. Bones/Soft Tissues: No significant findings identified. Lower thorax: Unremarkable. CA125 was 1153 U/mL. Had employee relations consultant onc evaluation and CT chest unremarkable. Underwent exploratory laparotomy, optimal tumor bulking, total abdominal hysterectomy, bilateral salpingo-oophorectomy, resection of bladder cul-de-sac and pelvic peritoneal disease along with resection of omental caking with super colic omentectomy on 10/06/2018. Pathology: FINAL DIAGNOSIS 1. 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 2. 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 3. Uterus, cervix, bilateral ovaries and fallopian tubes, and bladder/pelvic peritoneum, hysterectomy and excision (C) Left fallopian tube - High grade serous carcinoma (see comment and synoptic report). Right fallopian tube - Positive for involvement by high grade serous carcinoma. Bilateral ovaries - Positive for involvement by high grade serous carcinoma. Uterine serosa - Positive for involvement by high grade serous carcinoma. Bladder/pelvic peritoneum - Positive for involvement by high grade serous carcinoma. Endometrium - Inactive endometrium. Myometrium - Negative for malignancy. Cervix - Negative for malignancy. SYNOPTIC REPORT OF BRAUN PATHOLOGIC FINDINGS UTERUS, CERVIX, BILATERAL TUBES AND OVARIES, BLADDER, AND PELVIC PERITONEUM: Procedure: Total hysterectomy and bilateral salpingo-oophorectomy Omentectomy Peritoneal biopsies Specimen Integrity: Left fallopian tube serosa intact Primary Tumor Site: Left fallopian tube Ovarian Surface Involvement: Present Specify laterality (if applicable): Bilateral Fallopian Tube Surface Involvement: Present Specify laterality (if applicable): Bilateral Tumor Size: Greatest dimension: 1.6 cm Histologic Type: Serous carcinoma Histologic Grade: Not applicable Two-tier grading System: High grade Implants: Not applicable/not sampled Involvement of other tissues/organs: Right ovary Left ovary Right fallopian tube Pelvic peritoneum Omentum Other organs/tissues (specify): Uterine serosa Largest extrapelvic peritoneal focus, macroscopic (greater than 2 cm) Peritoneal Ascitic Fluid, Not submitted/unknown Treatment Effect: No known presurgical therapy Regional Lymph Nodes: No nodes submitted or found Pathologic Stage Classification (pTNM, AJCC 8th ed) TNM Descriptors: Not applicable Primary Tumor (pT): pT3c: Macroscopic peritoneal metastasis beyond pelvis more than 2 cm in greatest dimension with or without metastasis to the retroperitoneal lymph nodes (includes extension to capsule of liver and spleen without parenchymal involvement of either organ) Regional Lymph Nodes (pN): pNX: Cannot be assessed Distant Metastasis (pM): Not applicable/Not confirmed pathologically in this case Previous therapy: 1) 11/11/2018 - 02/03/2019: PACLITAXEL 80 D1,8,15 CARBOPLATIN 6 D1 - Q21D s/p 4 cycles. *neutropenia/thrombocytopenia causing treatment delay. Neulasta OnPro added; switch to Q21D dosing of Taxol with cycles 5 & 6 02/23/2019 - 03/17/2019: PACLITAXEL 135 D1 CARBOPLATIN 6 D1 - Q21D s/p 2 cycles. 2) 06/30/2019 - 06/20/2021: olaparib (LYNPARZA) 150 mg tablet; 300 mg BID. CTs 06/29/2022: Mesentery/Peritoneum: * New 0.4 cm anterior mesenteric fat nodule (8:57) * Confluent infiltrative soft tissue in RIGHT false pelvis surrounding the terminal ileum and ascending colon (cecum deep in pelvis) and probably affecting the sigmoid colon; difficult to precisely measure as it envelops bowel but including bowel measures approximately 4.5 x 2.9 cm (8:101); process extends to the RIGHT psoas muscle * Several small subtle anterior mesenteric fat nodules * No free abdominal fluid MRI pelvis 07/02/2022: Similar imaging findings since CT 06/29/2022, redemonstrating pelvic peritoneal/serosal carcinomatosis involving segments of bowel predominantly in the right anterior pelvis, with confluent soft tissue encasing the proximal ascending colon and causing relative upstream dilation of the low-lying cecum suggesting developing colonic obstruction. No small bowel dilation. No pelvic lymphadenopathy. 3) Carboplatin/paclitaxel x6 cycles. Completed 11/02/2022. Stable disease. Recommended to retry carbo/paclitaxel with potential addition michael if disease clears the bowel. 4) Doxil tolerated very well. PD 05/27/2023. Current therapy: CTs 05/27/2023 demonstrated progression of disease with an increase in size of irregular soft tissue density in the right pelvis as well as increasing thickening of the wall of the cecum. Presented to the ED at [facility] about a week later. CT scan demonstrated possible cecal volvulus. She was transferred to [facility]. Managed nonsurgically with NG decompression. NG was removed on her second hospital day and her diet was advanced to clear liquids and then the following day advance to full liquids then to gastrointestinal soft diet on day 3. She was discharged home with plans for outpatient follow-up and colectomy with possible cytoreduction. Underwent open right hemicolectomy on 07/14/2023. Initially Dr. Dawson performed laparotomy and excised several lower pelvic lesions. Dr. Jes maldonado performed the right hemicolectomy. He observed kinking of the cecum, proximal ascending colon and some of the distal ileum coming together causing narrowing of the pedicle around which the colon was volvulized. Pathology: FINAL DIAGNOSIS A. 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 B. 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 C. 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 - Background small bowel with acute serositis, possibly procedure-related. - Appendix with fibrous obliteration. - Thirteen lymph nodes, negative for malignancy (0/13). D. Fascia, anterior abdominal wall, excision: - Fat necrosis with associated dystrophic calcification, negative for malignancy. OV 07/30/2023: Discharged on apixaban 2.5 mg BID for VTE prophylaxis. Had hematochezia at home. 2 RBC transfusions. Apixaban stopped. Can't get strength back. On GI soft/Low residual diet. Has an appetite. No nausea. Abdominal soreness when standing or walking. Now--about 2-3 BMs daily. Soft to loose stools. No blood. Was advised to use Colace. Stopped two days ago b/c ongoing loose stools and urgency. No episodes incontinence. Continues on SALLY inhibitor 10 mg daily. Noticed swelling of right foot last evening. Presents for ongoing oncologic management. Interim history: Asked to review rationale for Elahere and CT results. Fingertip numbness stable in both hands. Now writing okay. Trouble picking up small objects and turning pages of a book. Sensory neuropathy symptoms of the feet and toes have resolved. PMH, medications and allergies personally reviewed by me today. Any changes documented in appropriate section. ROS: Constitutional: Denies episodes of fever and night sweats. Neuro: Denies MACHADO, vertigo, dizziness and imbalance. HEENT: No recent change in voice, vision or hearing. Resp: Denies cough, wheeze and hemoptysis. Denies shortness of breath at rest. Denies OLIVER. CVS: Denies exertional chest pain, PND, orthopnea and LE edema. GI: Denies dysgeusia. Denies symptoms of stomatitis. : Denies dysuria or gross hematuria. Endo: Denies hot flashes. Denies polyuria and polydipsia. Denies heat and cold intolerance. Musculoskeletal: Denies bone, back, joint and muscular pain. Derm: Denies rash. Denies jaundice and diffuse pruritis. Heme: Denies unusual bleeding and unexplained bruising. Psych: Normal mood. PHYSICAL EXAM: Vitals: Blood pressure 118/73, pulse 68, temperature 36.9 C (98.4 F), weight 55.6 kg (122 lb 8 oz), SpO2 99%. Well-appearing and in no acute distress. EYES: Sclerae are anicteric bilaterally. LYMPHATIC: No palpable cervical or supraclavicular adenopathy. RESPIRATORY: Inspiratory breath sounds are of normal intensity in all bernabe. CARDIOVASCULAR: Rhythm is regular. ABDOMEN: The abdomen is nondistended. Well-healed previous midline incision. The abdomen is soft and nontender throughout. No mass or fluid wave. Extremities: No swelling of the legs or feet. SKIN: No jaundice or rash. LABS: ASSESSMENT/PLAN: (C56.1, C56.2) Malignant neoplasm of both ovaries (HCC) (primary encounter diagnosis) Assessment: -KPS is 60% (due to recent surgery). -BRCA2 mutation (tested 04/2019). -Baseline CA125 1153 U/mL. -Now status post right hemicolectomy with some tumor sampling/debulking. -No symptoms to suggest cardiomyopathy. -Discussed with her Dr. Cote's recommendation which I agree with given her folate receptor IHC results--100% of cells stained +2-3+4 FOLR1. -Again discussed and answered her questions. -Reviewed CT results. -Reviewed schedule of eye drop administration. Plan:. -Begin Elahere tomorrow. Portions of this documentation were copied and pasted from previous office visit notes in order to provide a cohesive continuity of the history. The note has been reviewed and edited and updated as necessary. I spent a total of 20 minutes on the date of the service which included preparing to see the patient, [id number] patient care, completing clinical documentation, obtaining and/or reviewing separately obtained history, performing a medically appropriate examination, counseling and educating the patient/family/caregiver, ordering medications, tests, or procedures, communicating with other HCPs (not separately reported), and communicating results to the patient/family/caregiver. Js Cruz DO documented in this encounter [facility] 09-27-2023 Miscellaneous Notes Patient added on for OV today at 2:30. This time okay per nurse. Patient has chemo Ed at 1:30 today. Patient wondering if she could come in and have her chemo education in person and then go right to her appointment with Dr. Cruz? Edna Armstrong I will not be able to call her on Wednesday. Suggest setting up OV to discuss. Js Cruz DO [facility] Care Coordination FOLLOW-UP NOTE Patient identified by name and date of . YES Spoke to patient and spouse Summary: (Reason for follow-up) Patient is apprehensive about starting Elahere. She has concerns about what it will do to her eyes. She has received the packet of information from Doreen with the educational material and has read over it. She also is concerned about what she has read in regarding to causing issues with her lungs. She is asking if she should have had further test/scans on her lungs before starting. Allowed patient/ time to express thoughts/questions. Reviewed the 2 eye drops and calendar that was provided but they feel like they have received conflicting information. This nurse informed them that the calendar was made right from the drug manufactory guidelines and that using the eye drops as recommended is the best way to avoid eye issues. Patient/ states understanding but would like clarification from Dr. Cruz on Wednesday. Care Coordination Plan: Patient's expressed thanks for this nurse talking with them but they have more questions that I am unable to answer or that they prefer Dr. Cruz talk over with them. I will forward this to Dr. Cruz to address with patient on 09/27/23. Patient is agreeable to keeping things as scheduled. She is hoping to have her questions answered before starting treatment. Laura Alfonso RN September 23, 2023 documented in this encounter [facility] 09-24-2023 Miscellaneous Notes Treatment rescheduled to 09/27. Jayla Monroy Pt. Coming in Wednesday for treatment @ 8 am. PSS please put on schedule. Please make Note Pt. Will not start the treatment until she speaks with Dr. Cruz first. Has questions. Kristan Marina LPN Patient states she received a phone call regarding her treatment and would like to speak to someone today. She states it was Anthony. Unable to find documentation. Patient is scheduled for treatment and chemo education on Wednesday. documented in this encounter [facility] 09-22-2023 History of Presen t illness Narrative Radiology Service Progress Note PATIENT NAME: Savana Patel DATE OF SERVICE: September 22, 2023 TIME: 2:32 PM PATIENT IDENTITY VERIFICATION COMPLETED USING TWO (2) IDENTIFIERS: Name and Date of confirmed by patient verbally. FALL SCREENING: Has the patient had 2 falls in the last year or 1 fall with injury or currently using an Ambulatory Assistive Device (Walker, Cane, Wheelchair, Crutches, etc.)? No PATIENT GENDER DATA: Female. status: : No status: NO. PATIENT RELEVANT IMPLANT DATA REVIEWED: Yes PATIENT PRESENTS WITH AN IMPLANTABLE OR ATTACHED FRETTED STRING INSTRUMENT REPAIRER: No RADIOLOGY DEPARTMENT: CT; Exam(s) Completed: Chest Abdomen Pelvis PERIPHERAL IV DATA: power port accessed by hemoc SIGNED BY: RT Laurie(R) September 22, 2023 2:32 PM documented in this encounter [facility] 09-16-2023 Miscellaneous Notes Chemo Education call canceled. Patient stated her is currently in the hospital and she had to cancel her CT scans yesterday and will need to cancel her chemo edu call for tomorrow. Patient stated she will call this nurse on Wednesday with an update and to reschedule missed appointments. Doreen Jerome RN documented in this encounter [facility] 09-13-2023 Miscellaneous Notes Pt. Notified via my chart, will also be informed during infusion today. Kristan Marina LPN Stool was positive for occult blood. Since had colonoscopy in June, no need for further work up at this time. Continue IV iron. Js Cruz DO documented in this encounter [facility] 09-08-2023 Miscellaneous Notes Patient has been scheduled to start Elahere for 09/27/23 Rosa Siu Thank you for the update. Pease orders for elahere are under employee relations consultant/onc. Thank you! Doreen Jerome RN Patient called back in to let our office know that she got an appointment with for tomorrow 09/09/23 @ 10:30 am. Once beacon orders are placed we will get patient scheduled Rosa Siu Check out comments: CBC/CMP/CA 125/CT C/A/P when able. - scheudled Chemo education. -- scheduled Start Q 3 week Elahere after labs and CT's are completed. Patietn to call in when she has appointmetn with Dr. Nichols (eye appointmetn). Once eye appointment is scheduled please notify Doreen Jerome. Please schedule chemo to start once Eye appointment and CT are completed, documented in this encounter [facility] 09-08-2023 Miscellaneous Notes Patient was given a folder with chemocare information, office contact information, thermometer, and additional chemotherapy resource handouts. Patient aware this nurse will review on scheduled appointment date. Doreen Jerome RN documented in this encounter 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 Initially underwent pelvic ultrasound on 09/01/2018. Uterus appeared normal. The endometrial stripe was 2.3 mm. Right and left ovaries appeared normal. However there was a large amount of free fluid in the pelvic cul-de-sac. CT A/P 09/08/2018: Liver: No mass. Homogeneous texture. Biliary: No ductal dilatation is seen. Gallbladder is unremarkable. Spleen: Spleen is unremarkable. Pancreas: No mass or duct dilation. Adrenals: Adrenal glands are unremarkable. Kidneys: No mass, calculus or hydronephrosis is seen. GI tract: No bowel dilatation is seen. No evidence of obstruction. Lymph nodes: No evidence of adenopathy. Mesentery/Peritoneum: There is increased soft tissue density best seen in the coronal views extending from the lower abdomen into the pelvic area. This could represent peritoneal involvement with tumor. This is seen on coronal image 37 and axial images 99 through 122. It extends across the anterior aspect of the pelvic area seen on axial image 124. Vasculature: No evidence of dilatation of the abdominal aorta. CT PELVIS: Pelvis: There is a large amount of free fluid or loculated fluid in the pelvis suggesting that there could be an enhancing rim surrounding this fluid is seen on image 127 and measures 10.6 x 6.1 cm. Bones/Soft Tissues: No significant findings identified. Lower thorax: Unremarkable. CA125 was 1153 U/mL. Had employee relations consultant onc evaluation and CT chest unremarkable. Underwent exploratory laparotomy, optimal tumor bulking, total abdominal hysterectomy, bilateral salpingo-oophorectomy, resection of bladder cul-de-sac and pelvic peritoneal disease along with resection of omental caking with super colic omentectomy on 10/06/2018. Pathology: FINAL DIAGNOSIS 1. 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 2. 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 3. Uterus, cervix, bilateral ovaries and fallopian tubes, and bladder/pelvic peritoneum, hysterectomy and excision (C) Left fallopian tube - High grade serous carcinoma (see comment and synoptic report). Right fallopian tube - Positive for involvement by high grade serous carcinoma. Bilateral ovaries - Positive for involvement by high grade serous carcinoma. Uterine serosa - Positive for involvement by high grade serous carcinoma. Bladder/pelvic peritoneum - Positive for involvement by high grade serous carcinoma. Endometrium - Inactive endometrium. Myometrium - Negative for malignancy. Cervix - Negative for malignancy. SYNOPTIC REPORT OF BRAUN PATHOLOGIC FINDINGS UTERUS, CERVIX, BILATERAL TUBES AND OVARIES, BLADDER, AND PELVIC PERITONEUM: Procedure: Total hysterectomy and bilateral salpingo-oophorectomy Omentectomy Peritoneal biopsies Specimen Integrity: Left fallopian tube serosa intact Primary Tumor Site: Left fallopian tube Ovarian Surface Involvement: Present Specify laterality (if applicable): Bilateral Fallopian Tube Surface Involvement: Present Specify laterality (if applicable): Bilateral Tumor Size: Greatest dimension: 1.6 cm Histologic Type: Serous carcinoma Histologic Grade: Not applicable Two-tier grading System: High grade Implants: Not applicable/not sampled Involvement of other tissues/organs: Right ovary Left ovary Right fallopian tube Pelvic peritoneum Omentum Other organs/tissues (specify): Uterine serosa Largest extrapelvic peritoneal focus, macroscopic (greater than 2 cm) Peritoneal Ascitic Fluid, Not submitted/unknown Treatment Effect: No known presurgical therapy Regional Lymph Nodes: No nodes submitted or found Pathologic Stage Classification (pTNM, AJCC 8th ed) TNM Descriptors: Not applicable Primary Tumor (pT): pT3c: Macroscopic peritoneal metastasis beyond pelvis more than 2 cm in greatest dimension with or without metastasis to the retroperitoneal lymph nodes (includes extension to capsule of liver and spleen without parenchymal involvement of either organ) Regional Lymph Nodes (pN): pNX: Cannot be assessed Distant Metastasis (pM): Not applicable/Not confirmed pathologically in this case Previous therapy: 1) 11/11/2018 - 02/03/2019: PACLITAXEL 80 D1,8,15 CARBOPLATIN 6 D1 - Q21D s/p 4 cycles. *neutropenia/thrombocytopenia causing treatment delay. Neulasta OnPro added; switch to Q21D dosing of Taxol with cycles 5 & 6 02/23/2019 - 03/17/2019: PACLITAXEL 135 D1 CARBOPLATIN 6 D1 - Q21D s/p 2 cycles. 2) 06/30/2019 - 06/20/2021: olaparib (LYNPARZA) 150 mg tablet; 300 mg BID. CTs 06/29/2022: Mesentery/Peritoneum: * New 0.4 cm anterior mesenteric fat nodule (8:57) * Confluent infiltrative soft tissue in RIGHT false pelvis surrounding the terminal ileum and ascending colon (cecum deep in pelvis) and probably affecting the sigmoid colon; difficult to precisely measure as it envelops bowel but including bowel measures approximately 4.5 x 2.9 cm (8:101); process extends to the RIGHT psoas muscle * Several small subtle anterior mesenteric fat nodules * No free abdominal fluid MRI pelvis 07/02/2022: Similar imaging findings since CT 06/29/2022, redemonstrating pelvic peritoneal/serosal carcinomatosis involving segments of bowel predominantly in the right anterior pelvis, with confluent soft tissue encasing the proximal ascending colon and causing relative upstream dilation of the low-lying cecum suggesting developing colonic obstruction. No small bowel dilation. No pelvic lymphadenopathy. 3) Carboplatin/paclitaxel x6 cycles. Completed 11/02/2022. Stable disease. Recommended to retry carbo/paclitaxel with potential addition michael if disease clears the bowel. 4) Doxil tolerated very well. PD 05/27/2023. Current therapy: CTs 05/27/2023 demonstrated progression of disease with an increase in size of irregular soft tissue density in the right pelvis as well as increasing thickening of the wall of the cecum. Presented to the ED at [facility] about a week later. CT scan demonstrated possible cecal volvulus. She was transferred to [facility]. Managed nonsurgically with NG decompression. NG was removed on her second hospital day and her diet was advanced to clear liquids and then the following day advance to full liquids then to gastrointestinal soft diet on day 3. She was discharged home with plans for outpatient follow-up and colectomy with possible cytoreduction. Underwent open right hemicolectomy on 07/14/2023. Initially Dr. Dawson performed laparotomy and excised several lower pelvic lesions. Dr. Jes maldonado performed the right hemicolectomy. He observed kinking of the cecum, proximal ascending colon and some of the distal ileum coming together causing narrowing of the pedicle around which the colon was volvulized. Pathology: FINAL DIAGNOSIS A. 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 B. 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 C. 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 - Background small bowel with acute serositis, possibly procedure-related. - Appendix with fibrous obliteration. - Thirteen lymph nodes, negative for malignancy (0/13). D. Fascia, anterior abdominal wall, excision: - Fat necrosis with associated dystrophic calcification, negative for malignancy. OV 07/30/2023: Discharged on apixaban 2.5 mg BID for VTE prophylaxis. Had hematochezia at home. 2 RBC transfusions. Apixaban stopped. Can't get strength back. On GI soft/Low residual diet. Has an appetite. No nausea. Abdominal soreness when standing or walking. Now--about 2-3 BMs daily. Soft to loose stools. No blood. Was advised to use Colace. Stopped two days ago b/c ongoing loose stools and urgency. No episodes incontinence. Continues on SALLY inhibitor 10 mg daily. Noticed swelling of right foot last evening. Presents for ongoing oncologic management. Interim history: Is made very nice recovery from surgery. Appetite doing very well. No nausea. No abdominal pain. Bowels are working normally and regularly. Typically has a bowel movement between 7 and 730 every day. No sign of GI bleeding. Underwent workup for anemia. Iron deficiency. Scheduled to begin iron infusions. Fingertip numbness stable in both hands. Now writing okay. Trouble picking up small objects and turning pages of a book. Sensory neuropathy symptoms of the feet and toes have resolved. PMH, medications and allergies personally reviewed by me today. Any changes documented in appropriate section. ROS: Constitutional: Denies episodes of fever and night sweats. Neuro: Denies MACHADO, vertigo, dizziness and imbalance. HEENT: No recent change in voice, vision or hearing. Resp: Denies cough, wheeze and hemoptysis. Denies shortness of breath at rest. Denies OLIVER. CVS: Denies exertional chest pain, PND, orthopnea and LE edema. GI: Denies dysgeusia. Denies symptoms of stomatitis. : Denies dysuria or gross hematuria. Endo: Denies hot flashes. Denies polyuria and polydipsia. Denies heat and cold intolerance. Musculoskeletal: Denies bone, back, joint and muscular pain. Derm: Denies rash. Denies jaundice and diffuse pruritis. Heme: Denies unusual bleeding and unexplained bruising. Psych: Normal mood. PHYSICAL EXAM: Vitals: Blood pressure 109/67, pulse 70, temperature 36.9 C (98.4 F), weight 54.4 kg (120 lb), SpO2 100%. Well-appearing and in no acute distress. EYES: Sclerae are anicteric bilaterally. LYMPHATIC: No palpable cervical or supraclavicular adenopathy. RESPIRATORY: Inspiratory breath sounds are of normal intensity in all bernabe. CARDIOVASCULAR: Rhythm is regular. ABDOMEN: The abdomen is nondistended. Well-healed previous midline incision. The abdomen is soft and nontender throughout. No mass or fluid wave. Extremities: No swelling of the legs or feet. SKIN: No jaundice or rash. LABS: ASSESSMENT/PLAN: (C56.1, C56.2) Malignant neoplasm of both ovaries (HCC) (primary encounter diagnosis) Assessment: -KPS is 60% (due to recent surgery). -BRCA2 mutation (tested 04/2019). -Baseline CA125 1153 U/mL. -Now status post right hemicolectomy with some tumor sampling/debulking. -No symptoms to suggest cardiomyopathy. -Discussed with her Dr. Cote's recommendation which I agree with given her folate receptor IHC results--100% of cells stained +2-3+4 FOLR1. -Discussed drug FDA approved based on response rate and duration of response. She is understandably concerned about maintaining good quality of life so we had a discussion regarding this rationale, the logistics and potential risks (including but not limited to ocular toxicity, pneumonitis and peripheral neuropathy and the small potential for as a consequence of severe toxicity/complications of therapy), benefits and alternatives, as well as the personnel involved in the administration of mirvetuximab soravtansine. I answered her questions in detail and she verbalized understanding and agreed with the recommended therapy. Please see the electronic consent document for details of doses and schedule. Plan:. -CT chest, abdomen pelvis. -Rx steroid and moisturizing eyedrop regimen. -Baseline ophthalmologic exam. -Start after above. Portions of this documentation were copied and pasted from previous office visit notes in order to provide a cohesive continuity of the history. The note has been reviewed and edited and updated as necessary. I spent a total of 45 minutes on the date of the service which included preparing to see the patient, [id number] patient care, completing clinical documentation, obtaining and/or reviewing separately obtained history, performing a medically appropriate examination, counseling and educating the patient/family/caregiver, ordering medications, tests, or procedures, communicating with other HCPs (not separately reported), and communicating results to the patient/family/caregiver. Js Cruz DO documented in this encounter [facility] 09-07-2023 Miscellaneous Notes Received below message from Iman Fields, Admin: Reason for call: other - medication Recommendation: routed to provider Patient's preferred phone number: [phone] Patient calling regarding a medication that was to be prescribed for dryness and itching. The pharmacy has no record of any Rx [facility] in [place] Call placed to patient. She reports vaginal dryness, itching, and redness. She is not sexually active. She denies any abnormal drainage or any vaginal bleeding. She has tried Aquaphor on the area with little to no relief. Patient states she has never had a yeast infection that she is aware of. Suggested she try OTC Monistat to see if this helps with her symptoms. I informed her to use this nightly over the next week. I informed her she should feel relief in the next 3 days. If no relief, I asked her to please give the office a call back to schedule an in person pelvic exam. Patient appreciative for call. No other questions at this time. BENNETT Gonzalez documented in this encounter [facility] 09-07-2023 Miscellaneous Notes Called and spoke with patient. She accepted appt for tomorrow at 11:30. Edna Armstrong I searched her chart and found she had a separate test through [facility]. It indicated positive folate receptor IHC. Please offer her appointment Wednesday at 11:30 AM, establish complex. Js Cruz DO Per Dr. Cote's OV notes, he advised sdere. 09/02/2023 Recurrent fallopian tube cancer. Not eligible for current ongoing study trials through [facility]. Per [facility] report, cancer is FOLR1 positive, I recommend Elahere as next treatment, briefly reviewed drug mechanism and side effects. She would need to use eye drops and follow with an resaw tailer regularly to manage eye toxicity. Patient expressed concern over present eye conditions worsening on treatment, informed eye side effects are almost always reversible and there are ways to manage these. Advised patient to ask her resaw tailer if they have seen patient treated with Elahere or ADCs (antibody drug conjugates). I would advise a CT after 3 treatments. Return to see me towards the end of October 2023. Dr. Cruz- please advise when you would like to see patient to discuss/consent for elahere? Thank you. Doreen Jerome RN Patient called stating she has appts for lab,office visit and treatment scheduled for September. She doesn't believe she is to receive Doxil any longer. Please advise. documented in this encounter [facility] 09-02-2023 Miscellaneous Notes Scheduled with patient Dr. Cruz- please file orders. Patient is at the [facility] and will pick cards up there. PSS- please contact patient to schedule iron as directed. Beatrice Chu LPN Can let her know that iron levels are low. Please schedule for 5 doses of iron sucrose as soon as able. Recheck CBC/iron/reticulocyte count at the time of the fifth infusion. Needs Hemoccult testing of stool. Please pend orders. Js Cruz DO documented in this encounter [facility] 09-02-2023 History of Presen t illness Narrative TELEPHONE VISIT PROGRESS NOTE Patient has consented to this telephone encounter, not originating from a related Evaluation & Management service provided within the previous 7 days. NOTE: Cannot be used if an Evaluation & Management service or procedure is planned within the next 24 hours. Gynecologic Oncology Telephone Visit Follow up visit Date of service: 09/02/2023 Persons Present: patient and patient's spouse/significant other Chief Complaint/Reason: Savana Patel presents over telephone encounter to review genetic results and discuss treatment options. HPI: Ms. 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 Last Office Visit: 08/13/2023 ONCOLOGY HISTORY 1) 10/06/2018: Exploratory laparotomy, total abdominal hysterectomy, bilateral salpingooophorectomy, and bladder and posterior culdesac peritoneum resected en bloc, omentectomy 2) 11/11/2018 - 02/03/2019: PACLITAXEL 80 D1,8,15 CARBOPLATIN 6 D1 - Q21D s/p 4 cycles. *neutropenia/thrombocytopenia causing treatment delay. Neulasta OnPro added; switch to Q21D dosing of Taxol with cycles 5 & 6 02/23/2019 - 03/17/2019: PACLITAXEL 135 D1 CARBOPLATIN 6 D1 - Q21D s/p 2 cycles. 3) 06/30/2019 - 06/20/2021: olaparib (LYNPARZA) 150 mg tablet; 300 mg BID. 07/07/2022 POWER BARKER/ONC TUMOR BOARD Decontamination Technician/Onc Tumor Board Encounter Note Date of Tumor Board Presentation: 07/07/2022 Treating Physicians: Fang Cote MD Age: [age] year old Disease site: Ovary- High-grade serous adenocarcinoma Stage(at tumor board presentation)- Ovarian: Recurrent Care Path Discussion: No Clinical Trial Discussion: No If yes, what clinical trial should be considered? N/A Type of Tumor Board Review: Recurrence Attendance/Disciplines: POWER BARKER ONC, RAD ONC, Radiology, Pathology, and Genetics Management Options: - Recommend [place] based chemotherapy over secondary cytoreduction Citations: NCCN Ovarian Cancer Guidelines Version .2022 [facility] Carepath Guidelines: Ovarian Cancer Shanita P, Heather J, Claudia I, Angi G, Peyton A, Jonah W, Nadia S, Deandre BJ, Carmen F, Leigha F, Rufino C, L joaquim F, Viry R, Marlin E, Hyacinth JW, Cecil J, Ashish F, Laura G, Lauren GUZMAN, Torey P, Griffin P, [place] A, Rodolfo-Josefina S, Arben MR, Carson B, Denise A, Kevin A, Frank A, Parth F, brianna Lincoln A; [facility] III Investigators. Randomized Trial of Cytoreductive Surgery for Relapsed Ovarian Cancer. N Engl J [facility]. 2020May 22;385(23):5454-5716. doi: 10.[facility]6/[id number]. Erratum in: N Engl J Med. 2021Aug 07;386(7):704. PMID: 57372385. Lisa PG, Celestine M, Lisbet LM, H, Cristofer R, May CM, Glenroy M, Ryan S, Roney R. PARP inhibitors decrease response to subsequent [place]-based chemotherapy in patients with BRCA mutated ovarian cancer. [facility] [employer]. 2020Apr 21;32(10):8292-9163. doi: 10.1097/CAD.0904117018998319. PMID: 87623445. Anthony O, Sal DS, Krishnamurthy Q, Xiang A, Servando JA, Priyank V, Negin RN, Nito AK, Aguilar S, Cesar NATALIIA, Clem ED, Loi CL, Paroaamir V, Lakhman Y, Matilde K, Telles K, Den GJ, Andronel V, Carlos J, Bonnie EL, Long Effie K, Troso-Núñez T, Jihan SM, Arturo LA, Anson K, Sarah-Laurent NR, Justen C, Sunday WP, Kim J, Racheal Y, O'Becka RE. Secondary Cytoreduction and Carboplatin Hyperthermic Intraperitoneal Chemotherapy for [place]-Sensitive Recurrent Ovarian Cancer: An MS Team Ovary Phase II Study. J Clin Oncol. 2020Jan 28;39(23):3988-2505. doi: 10.1200/JCO.21.11796. Epub 2020November 08. PMID: 46180535; PMCID: [id number]. This abstract and interpretation of the conversation at tumor board has been completed by Rupa Mosquera MD. These are the general recommendations/discussion provided at tumor board conference. The definitive recommendations/discussion will be made by the primary health care team and patient after full discussion as appropriate. Treatment with Carboplatin & Paclitaxel. 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 [facility] 3049 Type of Tumor Board Review: Recurrence Attendance/Disciplines: POWER BARKER ONC, RAD ONC, Radiology, Pathology, and Genetics Management Options: - Consider treatment holiday - Consider doxil - Consider TTI-162 Citations: NCCN Ovarian Cancer Guidelines Version 2.2022 [facility] Carepath Guidelines: Ovarian Cancer Chaves RL, Marky MF, TJ, Sabraghu P, Pieter DK, Walker JL, Hyacinth BG, Fujpearl K, Jaycee KS, O'Donovan DM, Elias SA, Victoria SC, DiSilvestro P, Lashelln-Davie K, Lunsford H, Burroughs JK, Maura NM, Maira R, Angela RS. Bevacizumab and paclitaxel-carboplatin chemotherapy and secondary cytoreduction in recurrent, [place]-sensitive ovarian cancer ([employer]/Gynecologic Oncology Group study [id number]): a multicentre, open-label, randomised, phase 3 trial. Lancet Oncol. 2017 Ric;18(6):779-791. doi: 10.1016/T2536-6108(17)19335-5. Epub 2016Oct 09. PMID: 61475241; PMCID: [id number]. Arben MR, BJ, Mike J, Ansley AM, Grady S, Nallely A, Riana M, Dg JA, Paola Álvarez, Claudia I, Luis NE, Yana Manriquez, Marivel R, Lakesha RD, Golden JS, D rum A, Ivis AV, brianna Lincoln A, Chandler shivaniDunstable n A, Neville P, Ammon B, Arnol P, Miguel L, Alfa BJ, Feli J, Elvis NATALIIA, Leah S, Rina UA; ENGOT-OV16/NOVA Investigators. Niraparib Maintenance Therapy in [place]-Sensitive, Recurrent Ovarian Cancer. N Engl J Med. 2016 May 21;375(22):8509-1551. doi: 10.1056/[id number]. Epub 2015Mar 27. PMID: 39560046. Manuel Zimmerman, Carmen Gordon., Coleen Beckham., Georgia Romero., Malena Gordon., Renetta Vigil., Shane Oliva., Nelson R., Sylvia R., Nati Manriquez., Terry Moreland., Shweta Manriquez., Adilene F., Chaparrita Kolb., MichaelP lara Aguilar., Annemarie Winston., Eliot Schneider, Andrea Romero., Selvin Mayers., Nallely Moreland. Maintenance olaparib rechallenge in patients (pts) with ovarian carcinoma (OC) previously treated with a PARP inhibitor (PARPi): Phase IIIb OReO/ENGOT Ov-38 trial. Tiara. Oncol. 202;32(suppl_5):E3426-N1913. Shanita Winston, Heather Simpson, Claudia Mayers, Angi Beckham, Peyton Moreland, Jonah W, Nadia S, Deandre MORALES, Carmen Gordon, Leigha F, Rufino Manriquez, L joaquim Gordon, Viry Oneil, Marlin E, Hyacinth JW, Cecil J, Ashish F, Laura G, Lauren JM, Torey P, Elias P, Vini A, Randell S, Arben MR, Rios B, Denise Moreland, Kevin A, Frank A, Parth F, brianna Lincoln A; [employer] III Investigators. Randomized Trial of Cytoreductive Surgery for Relapsed Ovarian Cancer. N Engl J Med. 2020May 22;385(23):5476-5755. doi: 10.1056/[id number]. Erratum in: N Engl J Med. 2021Aug 07;386(1):704. PMID: 32804975. This abstract and interpretation of the conversation at tumor board has been completed by Rupa Mosquera MD. These are the general recommendations/discussion provided at tumor board conference. The definitive recommendations/discussion will be made by the primary health care team and patient after full discussion as appropriate. 02/15/2023 Doxil was decreased to 30 mg/m^2 due to PPE 03/04/2023 CT Chest IMPRESSION: No CT evidence of acute abnormality. No significant change since the comparison study. Left mastectomy and axillary lymph node dissection. CT ABD/PEL IMPRESSION: 1. Unchanged irregular soft tissue implants in the right pelvis 2. Thickening of the wall of the cecum which may be accentuated by underdistention. The presence of serosal implants cannot be excluded. 06/01/2023 CT ABD/PEL IMPRESSION: Cecal volvulus. Surgical consultation recommended. 07/14/2023 Exploratory laparotomy, tumor debulking of abdominal lesion is less than 5 cm, right ureterolysis. Co-surgeon with Venancio for right hemicolectomy and anastomosis PATHOLOGY FINAL DIAGNOSIS A. 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 B. 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 C. 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 - Background small bowel with acute serositis, possibly procedure-related. - Appendix with fibrous obliteration. - Thirteen lymph nodes, negative for malignancy (0/13). D. Fascia, anterior abdominal wall, excision: - Fat necrosis with associated dystrophic calcification, negative for malignancy. Diagnosis Comment Selected slides were reviewed by Dr. Darian Robles from the section of Gynecologic Pathology who agrees with the diagnosis of high-grade serous carcinoma. 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 Patient's laboratory accession # is [id number]. (View full doc under 05/02/19 telephone encounter) 07/14/2023 [facility] FOLR1 Positive Source Document under Scanned Documents 07/14/2023 INTERVAL HISTORY: Ms. Patel reports she is doing pretty good. Dr. Cruz has been directing her treatments. She prefers to stay in [place], [place] to continue receiving her treatments. She will be starting iron infusions next week, scheduled to receive 5x. She feels her strength has improved since treatment, able to keep up with her ADLs but feels her stamina is not what is used to be prior to treatment, gets notably more fatigued after exerting herself, inquired whether this will get better. She followed with her eye doctor last week, was informed she has a condition of her right eye, has noticed her vision is becoming blurred for long-distances, inquired whether Elahere would worsen her current eye condition. RESULTS: Data Reviewed: Most recent labs and imaging results. Most recent [facility] report CA 125 (U/mL) Date Value 08/26/2023 49 07/30/2023 36 07/02/2023 16 05/07/2023 13 04/09/2023 11 03/12/2023 11 02/12/2023 11 01/14/2023 10 12/07/2022 10 11/23/2022 11 10/30/2022 11 10/09/2022 12 09/18/2022 15 08/28/2022 30 08/04/2022 181 07/20/2022 483 06/18/2022 125 04/13/2022 14 03/23/2022 12 02/24/2022 10 01/19/2022 10 12/23/2021 10 11/24/2021 11 10/27/2021 11 09/29/2021 10 09/01/2021 9 07/07/2021 8 06/09/2021 9 05/12/2021 8 04/14/2021 8 02/19/2021 9 12/09/2020 9 10/23/2020 9 09/27/2020 8 08/23/2020 8 07/26/2020 8 06/28/2020 8 03/28/2020 8 02/01/2020 8 01/01/2020 8 10/20/2019 8 09/22/2019 7 08/25/2019 8 07/28/2019 8 07/20/2019 8 07/14/2019 9 07/07/2019 8 06/20/2019 9 03/27/2019 7 09/12/2018 1,153 See [facility] report results above, under Genetics 09/01/2023 CBC + DIFF Component Ref Range & Units 1 d ago (09/01/23) 7 d ago (08/26/23) 1 mo ago (07/30/23) 1 mo ago (07/19/23) 1 mo ago (07/19/23) 1 mo ago (07/19/23) 1 mo ago (07/18/23) WBC 3.70 - 11.00 k/uL 4.44 4.11 4.38 4.59 3.97 4.03 4.24 RBC 3.90 - 5.20 m/uL 3.09 Low 3.22 Low 3.21 Low 3.25 Low 3.29 Low 3.11 Low 2.70 Low Hemoglobin 11.5 - 15.5 g/dL 8.2 Low 8.6 Low 9.1 Low 9.5 Low 9.6 Low 8.8 Low 7.3 Low Hematocrit 36.0 - 46.0 % 26.6 Low 27.8 Low 28.3 Low 28.3 Low 28.7 Low 27.2 Low 23.3 Low MCV 80.0 - 100.0 fL 86.1 86.3 88.2 87.1 87.2 87.5 86.3 MCH 26.0 - 34.0 pg 26.5 26.7 28.3 29.2 29.2 28.3 27.0 MCHC 30.5 - 36.0 g/dL 30.8 30.9 32.2 33.6 33.4 32.4 31.3 RDW-CV 11.5 - 15.0 % 15.0 15.0 15.2 High 15.0 15.0 15.1 High 15.5 High Platelet Count 150 - 400 k/uL 170 163 233 126 Low 130 Low 118 Low 124 Low Comment: No clot detected. MPV 9.0 - 12.7 fL 10.1 10.2 9.3 9.8 10.4 10.2 10.4 Neutrophils % % 62.4 60.7 72.1 Abs Neut 1.45 - 7.50 k/uL 2.77 2.49 3.16 Lymphocytes % % 27.5 29.9 16.4 Abs Lymph 1.00 - 4.00 k/uL 1.22 1.23 0.72 Low Monocytes % % 9.0 7.8 9.8 Abs [place] <0.87 k/uL 0.40 0.32 0.43 Eosinophils % % 0.7 1.2 0.5 Abs Eosin <0.46 k/uL 0.03 0.05 <0.03 Basophils % % 0.2 0.2 0.5 Abs Baso <0.11 k/uL <0.03 <0.03 <0.03 Immature Granulocytes % % 0.2 0.2 0.7 Abs Immature Gran <0.10 k/uL <0.03 <0.03 0.03 NRBC /100 WBC 0.0 0.0 0.0 Absolute nRBC <0.01 k/uL <0.01 <0.01 <0.01 <0.01 <0.01 <0.01 <0.01 Diff Type Auto Auto Auto Assessment & Plan: 09/10/2020 - Dr. 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 Interval testing since last visit discussed, CA125 reviewed and within normal limits. Patient is up-to-date with health maintenance including mammogram, colonoscopy and advanced directives. Reviewed issues of survivorship including sexual health after cancer treatment, mental health and support systems. Importance of cancer surveillance and early detection of recurrence reinforced. 10/28/2020- Heather Lutz NP (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 Advised her value is stable. Last CT scan was in March 2020. Will order CT of the chest abdomen and pelvis for reevaluation while on PARPi therapy. Patient would like to establish with Dr. Cote, will move her appointment with me from 12/[address] Dawson on 12/[address] scans the week before. Continue monthly labs while on PARPi therapy Patient verbalized an understanding and agreed with the plan. Instructed to call if she has any questions or concerns. 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 Patient expressed concern about receiving the COVID vaccine while taking Olaparib. I advised the patient to continue with the COVID vaccine and discussed findings that supported my recommendation with her. Patient is receptive to recommendation. I answered all of the patient's and patient's 's questions and addressed their concerns. Plan to RTC in March [address] before and in June 2021. Continue with monthly CBC, and CA 125 prior to office visit with me in [place]. Patient verbalized an understanding and agreed with the plan. 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 I reviewed the most recent CT results with the patient which showed no acute pathology, no suspicious pulmonary nodules, no thoracic lymphadenopathy in the chest, and no acute pathology, and no mass or lymphadenopathy in the abdomen and pelvis. Ms. Patel received the 2nd COVID vaccine in January, and reports experiencing hot flashes since that time. I believe that this might be due to the Lynparza. Ms. Patel also complains of leg cramps that onset at night. I recommend taking multivitamins daily, as well as eating a diet rich in Potassium. Ms. Patel will continue taking Lynparza until the last day in May. Plan to RTC on June 25, [address], CBC, and CA [address] results show no new evidence of disease, we will discuss stopping her PARP. We will discuss the cancer surveillance timeline at the next visit. 07/04/2021 Stop lynparza. Ok to stop protonix in 2-3 weeks after stopping lynparza. I recommend leaving [place] for one year. Discuss in one year. Discussed no scans needed unless concerning s/s of recurrence. CA 125 prior to each office visit. 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 Discussed she may have some improvement but hard to say at this point. Recommend KN95 with omicron variant. Discussed covid testing guidelines. Follow up in 3 months 10/01/2021 Impression: History of Ovarian Cancer, most recently had completed Olaparib . CA 125 is 10, stable, but she is worried because it has increased by 1 point. Discussed the significance of small changes in CA 125 and anxiety which often accompany's this. Plan: CA 125 and clinical examination in December. Vulvar dryness and itching. Will prescribe Lotrisone cream. Said she had this in past and it helped her. She will call office if symptoms of itching, and dryness don't resolve in the next couple of weeks. 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 CA 125 is stable. Some bladder symptoms at times. Intermittent. Discussed pelvic floor PT. Will trial melatonin for insomnia and some assistance with constipation. BMD ordered for osteopenia screening. 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 No clinical evidence of disease. She has been off her PARP for approximately 9 months. Repeat CA 125 in 3 months. If CA 125 value is >15, (the roberto value,) will check CT scan as well. Reviewed signs and symptoms of recurrence and told to call with persisting concerns. Follow up in clinic in June for continued surveillance. 04/22/2022 She is feeling a bit better. I reviewed the recent labs she had. Nothing actionable. No clinical evidence of diverticulitis or UTI. She has had a flu shot. I advise getting the covid bivalent booster. CA 125 again in June a couple days before she sees me. She is in agreement with these plans. 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 Recently her CA 125 has jumped from 14 (04/13/22) to 125 (06/18/22). PLAN CT Chest & Abd/Pel to be done in [place] early next week. Contact clinic if CT is scheduled for later than Wednesday to reschedule virtual visit. Follow up Wednesday07/01/[address] to review results of CT scan and discuss her care plan. 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 Would be considered koyuk sensitive. Cancer appears to be involving distal ileum, and possibly sigmoid colon and right psoas. There may be sub-centimeter lesions elsewhere in the abdominal cavity. These findings were reviewed in detail with . Options for management include secondary debulking, possibly with HIPEC, followed with chemotherapy vs chemotherapy alone. To better assess whether secondary debulking would be appropriate, a pelvic MRI will be checked with focus on the possible involvement of the psoas muscle and surrounding blood vessels. If secondary debulking not advised, a CT guided biopsy of the recurrence will be considered as this sample can be sent for somatic tumor testing which can guide future treatment decisions. PLAN Review her case at the next Decontamination Technician/Onc Tumor Conference. MRI to be done in [place], aim for later this week. Follow up Wednesday07/08/22 to review Tumor Board discussion and MRI results. We will confirm the care plan at this time. 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 Her case was discussed in Tumor Board on 07/07/22. 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 If Bevacizumab is started, beginning with cycle number 3 of chemotherapy, consider single agent Bevacizumab following several cycles of carboplatin, Paclitaxel, and Bevacizumab Side effects of treatment plan reviewed, questions answered to patient's satisfaction. She is agreeable with this plan. Symptoms concerning for worsening disease reviewed. Instructed to contact this clinic if she has any questions. PLAN She wishes to receive her chemotherapy in [place] with Dr.Paul Eve DO. A copy of this note will be forwarded to him today. I will reach out to to fascilitate an appointment [phone] Follow up with me at the [facility] 2 weeks after her second cycle of chemotherapy, with a CT prior to that appointment. Will decide if Bevacizumab should be added at this time. 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 She is s/p cycle two of chemotherapy with Carboplatin and Paclitaxel. No unexpected toxicity. Improvement of disease burden on CT Discussed potential addition of Bevacizumab to current chemotherapy plan. Given indication of persistent tethering of cancer to right colon on CT, Bevacizumab is not iadvised at this time. PLAN Continue chemotherapy with carbo/taxol under 's supervision. Repeat CT after cycle 6, will place order for this. Follow up in this office after cycle 6, to review the CT and discuss maintenance therapy options. 08/31/22 Telephone Call with Corinne Santana RN Spoke with pt who reports that she was given chemo today at [facility] and was accidentally given michael along with her carbo/taxol which she was not supposed to receive per her OV with Eve on 08/28. Pt is still very anxious r/t the error and is calling to be certain the [facility] is aware of the situation. Pt is questioning whether she should expect her bowel to perforate due to this mistake. Explained that this is a known but relatively rare side effect. There is no certainty it will or will not happen. Reviewed S&S of acute abd that would require immediate medical attention. Ensured that pt has on-call employee relations consultant phone number. Pt states she was also given the on-call onc number at [facility]. Also explained that the med error will be reported and go through the proper channels to ensure proper review. Pt remains anxious and requests to speak directly to Rocael. Pt was offered a televisit on 09/02 at 0900 which she accepted. The appt will be scheduled. Pt is appreciative of conversation and information discussed. 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 She is s/p cycle three of chemotherapy with Carboplatin and Paclitaxel. Bevacizumab was given with cycle 3, which was not planned based on CT findings). Presently no concerning symptoms related to bevacizmab administration. Explained that bevacizumab is an approriate agent in her type of cancer, and though not planned to have been given, holding this agent prior to last cycle of chemotherapy was a judgement call. We reviewed serious but uncommon side effect of bowel perforation or peritonitis. Reviewed other side effects of bevacizumab. Reviewed alternative names of bevacizumab including the version she received, Zirabev. Addressed her anxiety surrounding the unplanned dose of bevacizumb given. PLAN Repeat CT after cycle 4 of chemotherapy (taxol and carboplatin) Will readdress potential role for bevacizumab in treatment upon review of future scans Follow up as planned in the office to discuss scans & care plan. 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 Most recent CT imaging showing stable disease burden. 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 Discussed option of continuing with current therapy with understanding that future chemotherapy will not likely result in significant reduction in tumor burden, but stable disease for some time is possible, though with high chance of worsening chemotherapy associated toxicity.. Other treatment options discussed included chemo holiday vs clinical trial vs potential surgery. PLAN Will aim to present ' case at Tumor Board at next available presentation. Follow up via telephone visit to discuss Tumor Board's recommendations & determine her care plan. Ok to go for eye exam Order placed for urine culture to be completed at [facility]. Signs and symptoms of worsening disease reviewed. Contact this office with any questions or concerns prior to that appointment. 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 Chemo toxicity reported; grade 2 neuropathy in hands, fatigue also reported. Post-treatment CT imaging showed stable disease burden, CA 125 stable. Discussed results of Decontamination Technician/Onc Tumor Board. Recommendation is continued chemotherapy with Doxil, single agent, 40 mg/m2 IV every 4 weeks. No growth factor with cycle 1, reassess need for growth factor pending marrow toxicity. Benefits, risks, side effects, and treatment schedule of Doxil discussed. Total number of cycles required cannot be determined at this time, plan for at least 6. Questions answered to patient's satisfaction. PLAN She wishes to receive her chemotherapy under the direction of ; a copy of this note will be shared with him. CT scans to be repeated following 3 treatments. Return to clinic following cycle 3 to review her imaging results and discuss her treatment. Contact this office with any questions or concerns prior to then. 03/09/2023 Recurrent fallopian tube carcinoma. Germline BRCA2 mutation. Last koyuk based regimen completed October 2022. Presently on doxil. Dose reduced to 30 mg/m2 for cycle 3 due to PPE. Following 3 cycles of treatment, disease remains stable. She is tolerateing Doxil better than carbo and taxol. Manageable PPE and mucocitis of the mouth. PLAN Repeat CT scan prior to cycle #7 at current dose of Doxil. I provided information regarding chilling of her hands the day before, of and after Doxil treatment. She is also using medicated mouthwash to prevent mouth sores. Regarding perineum advised her to apply Vaseline and may also use small amount of steroid ointment if Vaseline is not sufficient. I will see her in May to review CT scan prior to receiving cycle of treatment. 07/02/2023 Recurrent fallopian tube carcinoma. Germline BRCA2 mutation. Recent cecal volvulus. Last koyuk based regimen completed October 2022. Last chemo with doxil was several weeks ago. CBC ok for treatment. Patient scheduled for a laparotomy, removal of right colon, possible ileostomy, removal of other areas of cancer seen in the abdomen and pelvis on 07/14/2023. Consent signed in clinic today. EKG earlier today normal. Briefly reviewed pre-operative instructions and post-operative restrictions. Instructed to stop PO intake on the 23rd after midnight. Informed patient she will receive further details during pre-op visit with a nurse and by anesthesiology. Answered patient's questions. 08/13/2023 Recurrent fallopian tube cancer with recent surgery to resect a cecal volvulus associated with her cancer. Last doxil received 04/2023, her cancer is considered to have progressed on doxil and likely koyuk refractory. Given pathology results, she will need additional chemotherapy. We will evaluate her for a clincal trial and if not eligible will consider other standard agents. Ordering FOLR1 testing on tumor; informed patient of drug used if FOLR1 positive. If FOLR1 negative, consider pembrolizumab, oral cytoxan and bevacizumab. Options: Barring participation on a clinical trial, she would like to resume chemo closer to home as she has been doing. I will review results and treatment options over video virtual visit in a couple weeks. Advised stopping Colace for a couple of days, can resume if starts experiencing constipation. Can try OTC nystatin for vaginal pruritus. 09/02/2023 Recurrent fallopian tube cancer. High risk for symptomatic relapse given persistent disease at conclusion of recent surgery. Bowel function improving (diarrhea) and appetite is good. Not eligible for current ongoing study trials through [facility]. Per [employer] report, cancer is FOLR1 positive, I recommend Elahere as next treatment, briefly reviewed drug mechanism and side effects. She would need to use eye drops and follow with an resaw tailer regularly to manage eye toxicity. Patient expressed concern over present eye conditions worsening on treatment, informed eye side effects are almost always reversible and there are ways to manage these. Advised patient to ask her resaw tailer if they have seen patient treated with Elahere or ADCs (antibody drug conjugates). I would advise a CT after 3 treatments. She desires to receive her treatment with her local oncologist , Js Cruz. OK to start medication at this time. Return to see me towards the end of October 2023. Total Time Spent: 11-20 minutes Documentation from clinic notes of previous visit on 08/13/2023 was copied and pasted, documentation has been reviewed and edited as necessary and is current for today. ATTESTATION Scribe Attestation: By signing my name below, I, Elizabeth Corbin, attest that this documentation has been prepared under the direction and in the presence of Fang Cote MD. Electronically Signed: Chasity Stephens. September 02, 2023 4:36 PM. Provider Attestation: I, Dr. Fang Cote, personally performed the services described in this documentation. All medical record entries made by the scribe were at my direction and in my presence. I have reviewed the chart and discharge instructions (if applicable) and agree that the record reflects my personal performance and is accurate and complete. Electronically Signed: Fang Cote MD. September 12, 2023 11:55 AM documented in this encounter [facility] 08-31-2023 Miscellaneous Notes Pt added on as directed. Edna Armstrong Pt notified and states she can come in tomorrow 09/01/23 at 1:30 for lab work. Please schedule on the port schedule. Rut Mcintyre LPN She is more anemic than previously. I need to have that worked up further so please ask her to come in for labs as ordered under this encounter. Js Cruz DO documented in this encounter [facility] 08-28-2023 Miscellaneous Notes Patient notified of results and provider's instructions. Patient verbalizes understanding. Stacey Vegas LPN Let patient know the labs she got for me were all ok. Advise her to stop the lipitor for now. documented in this encounter [facility] 08-26-2023 Instructions Shay Cardoza MD - 08/26/2023 9:26 AM EST Consider getting the shingrix vaccine for the prevention of shingles from a local pharmacy and the RSV vaccine Consider getting Tdap for tetanus update at the [facility] Screening schedule The following prevention plan is recommended: RSV Vaccine(1 - 1-dose 60+ series) Never done Shingrix Vaccine(1 of 2) due on 11/07/2013 DTaP,Tdap,Td Vaccine(2 - Td or Tdap) due on 11/29/2020 Advance Directive Discussion due on 06/21/2023 Depression Assessment due on 06/21/2023 Covid-19 Vaccine( season) due on 07/14/2023 Mammogram Screening due on 08/29/2023 WHAT YOU CAN DO TO PREVENT FALLS Many falls can be prevented. By making some changes, you can lower your chances of falling. Four things YOU can do to prevent falls for you* and your caregiver 1. Begin a regular exercise program Exercise is one of the most important ways to lower your chances of falling. It makes you stronger and helps you feel better. Exercises that improve balance and coordination (like Altaf Chi) are the most helpful. Lack of exercise leads to weakness and increases your chances of falling. Ask your doctor or health care provider about the best type of exercise program for you. 2. Have your health care provider review your medicines Have your doctor or pharmacist review all the medicines you take, even [id number] medicines. As you get older, the way medicines work in your body can change. Some medicines, or combinations of medicines, can make you sleepy or dizzy and can cause you to fall. 3. Have your vision checked Have your eyes checked by an eye doctor at least once a year. You may be wearing the wrong glasses or have a condition like glaucoma or cataracts that limits your vision. Poor vision can increase your chances of falling. 4. Make your home safer About half of all falls happen at home. To make your home safer: Remove things you can trip over (like papers, books, clothes, and shoes) from stairs and places where you walk. Remove small throw rugs or use double-sided tape to keep the rugs from slipping. Keep items you use often in cabinets you can reach easily without using a step stool. Have grab bars put in next to your toilet and in the tub or shower. Use non-slip mats in the bathtub and on shower floors. Improve the lighting in your home. As you get older, you need brighter lights to see well. Hang light-weight curtains or shades to reduce glare. Have handrails and lights put in on all staircases. Wear shoes both inside and outside the house. Avoid going barefoot or wearing slippers. For more information, contact: Centers for Disease Control and Prevention www.cdc.gov/injury * This information may not apply if you have certain medical conditions. documented in this encounter [facility] 08-26-2023 History of Presen t illness Narrative Savana Patel is a 73 year old female here for a Medicare wellness visit. Medicare Health Risk Assessment General Health good Exercise: Minutes/Day none Exercise: Days/Week none Alcohol: Daily Use none Alcohol: Drinks/Day Alcohol: 6 or more drinks Feel off balance no Concerns: Teeth/Dentures Concerns: Sexual function Troubled by feelings none Frequency: Eating healthy diet daily ADLs requiring help none Safety precautions in home/vehicle Wears seat belts, no loose rugs, no grab bars Smoke, vape, chews tobacco never Difficulty hearing yes Difficulty seeing Wears glasses Current Providers Specialists: I have reviewed specialist-related care of the patient in the medical record. Current care team: Patient Care Team: Shay Cardoza MD as PCP - General (Family Medicine) Doreen Jerome RN as Specialty Sales Trainer (Oncology) Js Cruz DO (Hematology/Oncology) Fang Cote MD (Gynecology) Optho Medical/Family history review Reviewed and updated problem list, medical/surgical/family/social history, medications, and allergies. Opioid use review Opioid Medications (last 90 days) Some values may be hidden. Unless noted otherwise, only the newest values recorded on each date are displayed. Opioid Medications HYDROcodone-acetaminophen (NORCO) 5-325 mg per tablet Dose: 1-2 tablet EVERY 6 HOURS NEEDED Starting date: Ending date: 06/02/2023 (Discontinued) HYDROmorphone 0.2-0.5 mg injection (DILAUDID) Dose: 0.2-0.5 mg EVERY 10 MINUTES NEEDED May repeat every 10 minutes (MAX: 2 mg) If pain score remains greater than 4 after maximal dose achieved, contact [employer] president/LIP/staff for reassessment. Give 0.2 mg for mild pain (1-3) Give 0.5 mg for moderate pain (4-6) and severe pain (>/=7) Starting date: 07/14/2023 Ending date: 07/14/2023 (Discontinued) HYDROmorphone 0.5 mg injection (DILAUDID) Dose: 0.5 mg EVERY 4 HOURS NEEDED HIGH RISK MEDICATION Caution: Hydromorphone is 5 - 7 times MORE POTENT than morphine. For example: Hydromorphone 1mg IV = morphine 7mg IV Starting date: 07/14/2023 Ending date: 07/20/2023 (Discontinued) HYDROmorphone injection (DILAUDID) Dose: Starting date: 07/14/2023 Ending date: 07/14/2023 (Discontinued) oxyCODONE IR 5 mg tab(s) (ROXICODONE) Dose: 5 mg EVERY 4 HOURS NEEDED Starting date: 07/14/2023 Ending date: 07/20/2023 (Discontinued) oxyCODONE IR 5 mg tab(s) (ROXICODONE) Dose: 5 mg X (PACU ONLY) ONCE Starting date: 07/14/2023 Ending date: 07/14/2023 (Discontinued) oxyCODONE IR (ROXICODONE) 5 mg immediate release tablet Dose: 5 mg EVERY 4 HOURS NEEDED Starting date: 07/20/2023 Ending date: 07/20/2023 (Discontinued) oxyCODONE IR (ROXICODONE) 5 mg immediate release tablet Dose: 5 mg EVERY 4 HOURS NEEDED Starting date: 07/20/2023 Ending date: 07/27/2023 Depression screening Depression Screening PHQ-2 Score 08/26/2023 0 Depression screening tool completed and reviewed. Based on score and interview, patient is not at risk for depression. Screening tool discussed with patient, and I recommended no further intervention at this time. Cognitive screening Mini Cog Score: 5 Cognitive screening reviewed and no further action needed (score 3-5) Functional Observation Was the patient's Timed Up & Go test unsteady or ? 12 seconds? No Advance Care Planning Surrogate decision maker and/or advance care plan documented Measurements BP 122/64 Pulse 63 Ht 5' 4 (1.63m) Wt 120 lb (54.4kg) SpO2 99% BMI 20.59 kg/(m^2). [place] Additional screenings: No results found. Assessment/Plan Medicare annual wellness visit, subsequent (Z00.00) - Counseled on healthy diet and regular exercise - Fall avoidance information provided - Personalized prevention plan provided Chief Complaint Patient presents with: Medicare Wellness Exam HPI Savana Patel is a 73 year old female who presents here today for Chronic Medical Conditions. and Medicare Annual Visit. 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 His recovering slowly but feels she is doing better. Past medical history, appointments, medications, allergies reviewed. Previous Medical History PAST MEDICAL HISTORY Diagnosis Date Actinic keratosis 04/12/2007 Advance directive discussed with patient 08/24/2022 Discussed 08/2022: Up to date DEANDRE positive 07/25/2016 Rheum felt just Arthritis. 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) 07/13/2019 [place] ANGIOMA///NEVUS, NON-NEOPLASTIC 02/18/2007 Constipation 04/04/2015 Dysmetabolic syndrome X 12/28/2007 Essential hypertension 04/04/2015 GERD without esophagitis 07/24/2020 Hemorrhage of gastrointestinal tract, unspecified History of left mastectomy 05/05/2018 Impaired fasting glucose 11/21/2007 Internal hemorrhoids without mention of complication Leg cramps 01/08/2020 Living will on file 07/31/2021 DPA: Javier ( ) Malignant neoplasm of both ovaries (HCC) 10/26/2018 Mixed hyperlipidemia 04/04/2015 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 multiple joints 07/27/2016 Osteopenia 12/28/2012 Other acne 05/29/2008 Other seborrheic keratosis 02/18/2007 Panic attacks 07/18/2012 Primary insomnia 01/29/2022 S/P colectomy 08/06/2023 SOLAR LENGINES///DYSCHROMIA OTHER 02/18/2007 Thrombocytopenia (HCC) 01/29/2022 chronic Trigger ring finger of left hand 07/24/2020 Trigger ring finger of right hand 07/24/2020 Previous Surgical History PAST SURGICAL HISTORY Procedure Laterality Date BX BREAST PERC VACUUM/ROTN 10/26/2007 LEFT COLONOSCOPY FLX DX W/COLLJ SPEC WHEN PFRMD 07/20/2005 COLONOSCOPY FLX DX W/COLLJ SPEC WHEN PFRMD 05/01/2016 normal - 10 year follow up LAPAROSCOPIC HEMICOLECTOMY Right 06/2023 LIG/TRNSXJ FLP TUBE ABDL/VAG APPR UNI/BI Tubal ligation MAST RAD W/PECTORAL MUSCLES AXILLARY LYMPH NODES 11/2007 Left PAST SURGICAL HISTORY OF BACK SURGERY PAST SURGICAL HISTORY OF 10/06/2018 Exploratory laparotomy, total abdominal hysterectomy, bilateral salpingooophorectomy, and bladder and posterior culdesac peritoneum resected en bloc, omentectomy PLCMT LOCALZTN CLIP,PERC,DURING BREAST BX 10/26/2007 LEFT S PORT-A-CATH [id number] 11/09/2018 TONSILLECTOMY PRIMARY/SECONDARY <AGE 12 Tonsillectomy Family History FAMILY HISTORY Problem Relation Age of Onset Ovarian cancer Mother dx 50s Arthritis Father Cancer Maternal Aunt 7 aunts with breast or ovarian cancer. details unknown Patient Allergies ALLERGIES Allergen Reactions Penicillins Rash Sulfa (Sulfonamide * Unknown Current Medications Current Outpatient Medications on File Prior to Visit Medication Sig acetaminophen (TYLENOL) 500 mg tablet Take 2 tablets by mouth every 8 hours. iv contrast (will be provided with radiology test) CT ABD/PEL -Inject, intravenously, once for 1 dose.No IV access, insert saline lock prior to the beginning of sedation, infusion, injection of imaging exam. Discontinue saline lock post exam. If Pt. has a central line or IVAD, may access for administration according to line specific nursing protocol. Once exam is complete flush line and de-access according to line specific nursing protocol in the CT contrast administration guidelines link. enteric contrast (will be provided with radiology test) For CT ABD/PEL W IVCON Routine order Administer, As Directed One Time Only, via Oral, Rectal, both Oral and Rectal, Enteric Tube, Stoma or Indwelling Catheter, Enteric Contrast as designated per enteric contrast guidelines iv contrast (will be provided with radiology test) CT Chest W -Inject, intravenously, once for 1 dose.No IV access, insert saline lock prior to the beginning of sedation, infusion, injection of imaging exam. Discontinue saline lock post exam. If Pt. has a central line or IVAD, may access for administration according to line specific nursing protocol. Once exam is complete flush line and de-access according to line specific nursing protocol in the CT contrast administration guidelines link. ramipril (ALTACE) 10 mg capsule Take 1 capsule by mouth once daily. atorvastatin (LIPITOR) 10 mg tablet Take 1 tablet by mouth once daily. docusate sodium (COLACE ORAL) Take 1 tablet by mouth once daily as needed. Surgical Lubricant Jelly gel For MRI Female Pelvis, MRI department to provide. Administer intra-vaginal Surgilube immediately prior the MRI procedure (total amount to patient toleranace). triamcinolone (KENALOG) 0.1 % lotion Apply to affected area twice daily. (Patient not taking: Reported on 08/26/2023) [id number] (BMX 1:1:1) 1:1:1 liqd Take 10 mL by mouth every 4 hours as needed. (Patient not taking: Reported on 07/30/2023) Current Facility-Administered Medications on File Prior to Visit Medication perflutren lipid microspheres 1.3 mL in NaCl (PF) 0.9% 10 mL injection (DEFINITY) sodium chloride 0.9 % (flush) 10 mL (BD POSIFLUSH) perflutren lipid microspheres 1.3 mL in NaCl (PF) 0.9% 10 mL injection (DEFINITY) sodium chloride 0.9 % (flush) 10 mL (BD POSIFLUSH) Social History Social History Tobacco Use Smoking status: Never Passive exposure: Never Smokeless tobacco: Never Vaping Use Vaping Use: Never used Substance Use Topics Alcohol use: No Drug use: No Review of Symptoms REVIEW OF SYSTEMS GENERAL: No weight loss, malaise or fevers HEENT: Negative for frequent or significant headaches, No changes in hearing or vision, no nose bleeds or other nasal problems NECK: Negative for lumps, goiter, pain and significant neck swelling RESPIRATORY: Negative for cough, hemoptysis, wheezing, COPD, dyspnea or shortness of breath CARDIOVASCULAR: Negative for chest pain, leg swelling, hypertension, CHF or palpitations GI: No nausea, vomiting, or diarrhea, No heartburn or reflux symptoms, and no blood : No history of dysuria, frequency or no blood MUSCULOSKELETAL: Negative for joint pain or swelling, back pain or muscle pain SKIN: Negative for lesions, rash, and itching PSYCH: Negative for sleep disturbance, mood disorder and recent psychosocial stressors HEMATOLOGY/LYMPHOLOGY: Negative for prolonged bleeding, bruising easily or swollen nodes ENDOCRINE: Negative for cold or heat intolerance, polyuria, polydipsia and goiter NEURO: No history of headaches, syncope, paralysis, seizures or tremors EXAM: BP 122/64 Pulse 63 Ht 162.6 cm (5' 4) Wt 54.4 kg (120 lb) SpO2 99% BMI 20.60 kg/m Last 4 Encounter Wt Readings: Date: Wt: 08/26/2023 54.4 kg (120 lb) 08/13/2023 55 kg (121 lb 4.8 oz) 08/11/2023 54 kg (119 lb) 07/30/2023 55.6 kg (122 lb 8 oz) General Appearance: Well appearing, alert, in no acute distress, well-hydrated, well nourished.. Skin: Skin color, texture, turgor normal, no suspicious rashes or lesions. Head: Normocephalic, no masses, lesions, tenderness or abnormalities. Eyes: Anicteric sclera. Pupils are equally round and reactive to light. Extraocular movements are intact. . Ears: External ears, TM's normal, canals clear. Nose/Sinuses: Nares normal, septum midline, mucosa normal, no drainage or sinus tenderness. Oropharynx: Lips, mucosa, and tongue normal, teeth and gums normal, oropharynx normal. Neck: Supple, no adenopathy; thyroid symmetric, normal size, no bruits. Lungs: Lungs clear to auscultation. No wheezing, rhonchi, rales.. Heart: RRR without murmur, gallop, or rubs. No ectopy. Abdomen: Normal abdominal exam, Abdomen soft, non-tender. Bowel sounds normal. No masses, organomegaly. Extremities: No deformities, edema, skin discoloration, clubbing or cyanosis. Good capillary refill. . Musculoskeletal: Muscular strength intact, No joint swelling, deformity, or tenderness. Peripheral Pulses: Normal. Neurologic: Gait normal. Reflexes normal and symmetric. Sensation to light touch and crainal nerves 2-12 intact.. Health Maintenance List RSV Vaccine(1 - 1-dose 60+ series) Never done Shingrix Vaccine(1 of 2) due on 11/07/2013 DTaP,Tdap,Td Vaccine(2 - Td or Tdap) due on 11/29/2020 Advance Directive Discussion due on 06/21/2023 Depression Assessment due on 06/21/2023 Covid-19 Vaccine( season) due on 07/14/2023 Mammogram Screening due on 08/29/2023 Annual PCP Team Chronic Disease Visit due on 06/08/2024 BP Controlled (<130/80) due on 08/13/2024 Diabetes Screening due on 07/30/2026 Lipid Screening due on 03/04/2028 Colorectal Cancer Screening due on 07/07/2033 Bone Density Screening Completed Hepatitis C Screening Completed Pneumococcal Vaccine: 65+ Completed HPV Vaccine Aged Out Influenza Vaccine Discontinued Data reviewed Component Latest Ref Rng & Units 07/19/2023 07/30/2023 WBC 3.70 - 11.00 k/uL 4.59 4.38 RBC 3.90 - 5.20 m/uL 3.25 (L) 3.21 (L) Hemoglobin 11.5 - 15.5 g/dL 9.5 (L) 9.1 (L) Hematocrit 36.0 - 46.0 % 28.3 (L) 28.3 (L) MCV 80.0 - 100.0 fL 87.1 88.2 MCH 26.0 - 34.0 pg 29.2 28.3 MCHC 30.5 - 36.0 g/dL 33.6 32.2 RDW-CV 11.5 - 15.0 % 15.0 15.2 (H) Platelet Count 150 - 400 k/uL 126 (L) 233 MPV 9.0 - 12.7 fL 9.8 9.3 Neut% % 72.1 Abs Neut (ANC) 1.45 - 7.50 k/uL 3.16 Lymph% % 16.4 Abs Lymph 1.00 - 4.00 k/uL 0.72 (L) [place]% % 9.8 Abs [place] <0.87 k/uL 0.43 Eosin% % 0.5 Abs Eosin <0.46 k/uL <0.03 Baso% % 0.5 Abs Baso <0.11 k/uL <0.03 Immature Gran % % 0.7 IMMATURE GRANS (ABS) <0.10 k/uL 0.03 NRBC /100 WBC 0.0 Absolute nRBC <0.01 k/uL <0.01 <0.01 DTYPE Auto Protein, Total 6.3 - 8.0 g/dL 6.1 (L) 6.4 Albumin 3.9 - 4.9 g/dL 3.5 (L) 3.8 (L) Calcium 8.5 - 10.2 mg/dL 8.9 9.4 Bilirubin, Total 0.2 - 1.3 mg/dL 0.6 0.4 Alkaline Phosphatase 34 - 123 U/L 63 73 AST 13 - 35 U/L 37 (H) 17 ALT 7 - 38 U/L 36 15 Glucose 74 - 99 mg/dL 112 (H) 112 (H) BUN 7 - 21 mg/dL 9 21 Creatinine 0.58 - 0.96 mg/dL 0.81 0.90 Sodium 136 - 144 mmol/L 136 135 (L) Potassium 3.7 - 5.1 mmol/L 3.8 4.1 Chloride 97 - 105 mmol/L 103 101 CO2 22 - 30 mmol/L 24 24 Anion Gap 9 - 18 mmol/L 9 10 eGFR >=60 mL/min/1.73m 76 67 Magnesium 1.7 - 2.3 mg/dL 1.8 Phosphorus 2.7 - 4.8 mg/dL 2.7 A/P ASSESSMENT/PLAN: 1. Medicare annual wellness visit, subsequent - ICD9: V70.0, ICD10: Z00.00 (primary diagnosis) - Counseled on healthy diet and regular exercise - Calcium intake with supplements or by diet of 1000 mg/day for under 50, 2295-0280 mg/day for 50+ - Follow up for annual exam in one year - Advised on shingrix, RSV and Tdap. - patient declined COVID booster today 2. Essential hypertension - ICD9: 401.9, ICD10: I10 - Controlled - off Altace due to low BP and will keep her off. If BP gets above 135/90 at home she is to let me know. - Recommend home blood pressure monitoring, to bring results to next visit - Encouraged sodium restriction, DASH or Mediterranean diet - Recommend regular aerobic exercise Check - URINALYSIS, WITH MICROSCOPIC - LIPID PANEL, NONFASTING 3. Mixed hyperlipidemia - ICD9: 272.2, ICD10: E78.2 - await labs - Continue current medications - Counseled on healthy diet and regular exercise Check - URINALYSIS, WITH MICROSCOPIC - LIPID PANEL, NONFASTING 4. Impaired fasting glucose - ICD9: 790.21, ICD10: R73.01 Check - HGB A1C 5. GERD without esophagitis - ICD9: 530.81, ICD10: K21.9 - Managed with diet. 6. Panic attacks - ICD9: 300.01, ICD10: F41.0 - stale not needing tx. 7. Chemotherapy-induced neuropathy (HCC) - ICD9: 357.6, E933.1, ICD10: G62.0, T45.1X5A - stable no changes. 8. Primary insomnia - ICD9: 307.42, ICD10: F51.01 - stable no changes. 9. 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 Carcinomatosis (HCC) - ICD9: 199.0, ICD10: C80.0 - as per #9 11. Malignant neoplasm of both ovaries (HCC) - ICD9: 183.0, ICD10: C56.3 - as per #9 12. Malignant neoplasm of upper-outer quadrant of right breast in female, estrogen receptor positive (HCC) - ICD9: 174.4, V86.0, ICD10: C50.411, Z17.0 - as per #9 13. Anemia, unspecified type - ICD9: 285.9, ICD10: D64.9 - management per hematology 14. Carcinoma of fallopian tube, unspecified laterality (HCC) - ICD9: 183.2, ICD10: C57.00 - as per #9 15. Advance directive discussed with patient - ICD9: V65.49, ICD10: Z71.89 - up to date. F/u 6 months routine sooner if needed. I spent a total of 40 minutes on the date of the service which included preparing to see the patient, [id number] patient care, completing clinical documentation, performing a medically appropriate examination, counseling and educating the patient/family/caregiver and ordering medications, tests, or procedures. Shay Cardoza MD documented in this encounter [facility] 08-20-2023 Miscellaneous Notes Patient called stating that she received call from [facility] stating we are waiting for results from tumor board and okay to cancel lab, office visit on 08/26 and tx on 08/29. Appointments canceled. Yes, okay to cancel next week but advised her to reach out to Dr. Cote's office for the plan. Js Cruz DO Reviewed Dr. Cote's notes from 08/13/23. OV is unsigned however this is what the notes state so far. I do not see any follow-ups scheduled with Dr. Cote at this time. Caris testing pending. Next OV is with Kasi on 08/27/23. Is it okay cancel upcoming appointments with our office until we have a plan in place? 08/13/2023 Recurrent fallopian tube cancer with recent surgery to resect a cecal volvulus associated with her cancer. Last doxil received 04/2023, her cancer is considered to have progressed on doxil and now [place] refractory. Given pathology results, she will need additional chemotherapy. We will evaluate her for a clincal trial and if not eligible will consider other standard agents. Ordering FOLR1 testing on tumor; informed patient of drug used if FOLR1 positive. Options: Clinical trial (meghan vec? Transplant study? ? Pembro, oral cytoxan, bevacizumab (once fully healed from surgery). I will review results and treatment options over video virtual visit in a couple weeks. Thank you. Doreen Jerome RN Called patient to inform of [place]'s location on 2nd floor. While speaking with patient, she states Dr. Cote at [facility] had not contacted her regarding treatment. Patient is asking if treatment is still a go for patient on 08/29. She states she is on week 5 from surgery. documented in this encounter [facility] 08-13-2023 History of Presen t illness Narrative Gynecologic Oncology [facility] Post Operative visit Date of service: 08/13/2023 PROBLEM/CC: Savana Patel presents for a post op visit. HPI: Ms. 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 SURGERY & DATE: 07/14/2023 Exploratory laparotomy, tumor debulking of abdominal lesion is less than 5 cm, right ureterolysis. Co-surgeon with Venancio for right hemicolectomy and anastomosis PATHOLOGY FINAL DIAGNOSIS A. 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 B. 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 C. 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 - Background small bowel with acute serositis, possibly procedure-related. - Appendix with fibrous obliteration. - Thirteen lymph nodes, negative for malignancy (0/13). D. Fascia, anterior abdominal wall, excision: - Fat necrosis with associated dystrophic calcification, negative for malignancy. Diagnosis Comment Selected slides were reviewed by Dr. Darian Robles from the section of Gynecologic Pathology who agrees with the diagnosis of high-grade serous carcinoma. Gross Description A. SOFT TISSUE Received for frozen diagnosis in a container labeled right pelvic brim is a 1.3 x 0.8 x 0.3 cm portion of garcia-pink soft tissue. The specimen is totally submitted for frozen diagnosis in FSA1. Gross Examination performed at [facility], [address] [place] [address].[place] [address]. [facility] # [id number] [facility] 07/14/23 2:39 PM B. PERITONEUM BIOPSY Received in formalin designated right pelvic peritoneum are two garcia-castro cauterized fragments of fibromembranous tissue that measure 2.1 x 2 x 0.7 cm. The specimen is serially sectioned to reveal a garcia-white fibrous nodule that measures 0.9 x 0.9 x 0.8 cm. The specimen including the nodule is entirely submitted in two cassettes with cassettes B1 corresponding with the nodule. WE July 15, 2023 10:19 AM Gross examination performed at [facility], [address] [place] [address].[place] [address] C. COLON RESECTION Received in formalin designated colon resection is a right hemicolectomy specimen consisting of small bowel (23 cm in length and 2.4 cm in circumference), large bowel (26 cm in length and ranging from 2.5 to 6.3 cm in circumference), and appendix (4.5 cm in length and 0.6 cm in diameter). The serosal surface is pink-garcia and smooth with a portion of the small bowel mesenteric fat adhered to the ascending colon serosa. At the same site, the distal tip of the appendix is also adhered to a portion of soft tissue that measures 1.5 x 1 x 0.3 cm. The bowel is opened to reveal an area of stenosis at the ascending colon that measures 2.5 cm in length and is located 12.5 cm from the distal margin. This area of stenosis corresponds with the site of adhesion on the serosal surface. The bowel proximal to the site of stenosis is slightly dilated. The remaining large bowel mucosa is unremarkable showing normal mucosal folds with a wall thickness of 0.7 cm. The small bowel mucosa is pink-garcia and granular, showing normal mucosal folds with a wall thickness of 0.6 cm. At the site of adhesion, there is a garcia-white fibrous nodule that measures 2.1 x 1.8 x 1.6 cm. The nodule is located 0.9 cm from the mesenteric margin, 10 cm from the proximal margin, and 10 cm from the distal margin. Sectioning through the appendix reveals that it is not involved by the nodule. The appendiceal mucosa is hyperemic with a wall thickness of 0.3 cm. [employer] sections are submitted as follows: C1 proximal margin perpendicular (inked orange) and distal margin perpendicular (inked blue), C2-C3 distal tip of appendix bisected with adjacent nodule, C4-C6 nodule at site of adhesion, C7 nodule with large bowel full-thickness, C8 nodule with mesenteric margin (inked black), C9 remaining nodule, C10 remaining appendix, C11 small bowel full-thickness, C12 four intact lymph nodes, C13 four intact lymph nodes, C14 five intact lymph nodes. WE July 15, 2023 10:15 AM Gross examination performed at [facility], [address] [place] [address] D. FASCIA Received in formalin designated anterior abdominal wall is a garcia cauterized fragment of fibromembranous tissue that measures 1.1 x 1.1 x 0.6 cm. Sectioning through the tissue reveals a garcia-white to garcia-yellow fibrous nodule that measures 0.7 x 0.7 x 0.6 cm. The specimen is entirely submitted in one cassette. WE July 15, 2023 10:20 AM Gross examination performed at [facility], [address] [place] [address] Intraoperative Diagnosis A. SOFT TISSUE FSA1: Positive for malignancy. (Dr. Balderrama) CYTOLOGY NON-POWER BARKER Final result 07/14/2023 FINAL DIAGNOSIS A - PELVIC WASHING Positive for malignant cells. Adenocarcinoma, compatible with patient's known Mullerian primary; see comment ONCOLOGY HISTORY: 1) 10/06/2018: Exploratory laparotomy, total abdominal hysterectomy, bilateral salpingooophorectomy, and bladder and posterior culdesac peritoneum resected en bloc, omentectomy 2) 11/11/2018 - 02/03/2019: PACLITAXEL 80 D1,8,15 CARBOPLATIN 6 D1 - Q21D s/p 4 cycles. *neutropenia/thrombocytopenia causing treatment delay. Neulasta OnPro added; switch to Q21D dosing of Taxol with cycles 5 & 6 02/23/2019 - 03/17/2019: PACLITAXEL 135 D1 CARBOPLATIN 6 D1 - Q21D s/p 2 cycles. 3) 06/30/2019 - 06/20/2021: olaparib (LYNPARZA) 150 mg tablet; 300 mg BID. 07/07/2022 POWER BARKER/ONC TUMOR BOARD Decontamination Technician/Onc Tumor Board Encounter Note Date of Tumor Board Presentation: 07/07/2022 Treating Physicians: Fang Cote MD Age: [age] year old Disease site: Ovary- High-grade serous adenocarcinoma Stage(at tumor board presentation)- Ovarian: Recurrent Care Path Discussion: No Clinical Trial Discussion: No If yes, what clinical trial should be considered? N/A Type of Tumor Board Review: Recurrence Attendance/Disciplines: POWER BARKER ONC, RAD ONC, Radiology, Pathology, and Genetics Management Options: - Recommend [place] based chemotherapy over secondary cytoreduction Citations: NCCN Ovarian Cancer Guidelines Version .2022 [facility] Guidelines: Ovarian Cancer Shanita P, Heather J, Claudia I, Angi G, Peyton A, Jonah W, Nadia S, Deandre BJ, Andrewe F, Leigha F, Rufino C, L joaquim F, Viry R, Marlin E, Hyacinth JW, Cecil J, Ashish F, Laura G, Lauren JM, Torey P, Griffin P, Vini A, Rodolfo-Josefina S, Arben MR, Rios B, Jose Rler A, Santaballa A, Olaitan A, Parth F, brianna Lincoln A; DESKTOP III Investigators. Randomized Trial of Cytoreductive Surgery for Relapsed Ovarian Cancer. N Engl J Med. 2020May 22;385(23):4582-3535. doi: 10.1056/[id number]. Erratum in: N Engl J Med. 2021Aug 07;386(7):704. PMID: 75552078. Lisa PG, Celestine M, Lisbet LM, H, Cristofer R, May CM, Glenroy M, Ryan S, Roney R. PARP inhibitors decrease response to subsequent [place]-based chemotherapy in patients with BRCA mutated ovarian cancer. Anticancer Drugs. 2020Apr 21;32(10):4708-8795. doi: 10.1097/CAD.1856371012154683. PMID: 17674141. Anthony Apple Sal DS, Krishnamurthy Q, Xiang A, Servando JA, Priyank V, Negin RN, Nito AK, Aguilar S, Cesar NATALIIA, Clem ED, Loi CL, Ratna V, Lakrani Y, Matilde K, Telles K, Den GJ, Andronel V, Carlos J, Bonnie EL, Long Effie K, Troso-Núñez T, Jihan SM, Arturo LA, Anson K, Malini NR, Justen C, Sunday WP, Kim J, Racheal Y, OJazmyne RE. Secondary Cytoreduction and Carboplatin Hyperthermic Intraperitoneal Chemotherapy for [place]-Sensitive Recurrent Ovarian Cancer: An MS Team Ovary Phase II Study. J Clin Oncol. 2020Jan 28;39(23):0040-3370. doi: 10.1200/JCO.21.55501. Epub 2020November 08. PMID: 21842561; PMCID: [id number]. This abstract and interpretation of the conversation at tumor board has been completed by Rupa Mosquera MD. These are the general recommendations/discussion provided at tumor board conference. The definitive recommendations/discussion will be made by the primary health care team and patient after full discussion as appropriate. Treatment with Carboplatin & Paclitaxel. 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 [facility] [address] Type of Tumor Board Review: Recurrence Attendance/Disciplines: POWER BARKER ONC, RAD ONC, Radiology, Pathology, and Genetics Management Options: - Consider treatment holiday - Consider doxil - Consider TTI-162 Citations: NCCN Ovarian Cancer Guidelines Version 2.2022 [facility] Guidelines: Ovarian Cancer Anastacio RL, Marky MF, TJ, Renae P, Pieter DK, Mihir JL, Hyacinth BG, Fujpearl K, Jaycee KS, O'Donovan DM, Curt SA, Julien SC, Judith P, Sanjay K, Jonn H, Manjeet JK, Maura NM, Maira R, Angela RS. Bevacizumab and paclitaxel-carboplatin chemotherapy and secondary cytoreduction in recurrent, [place]-sensitive ovarian cancer ([employer]nec[employer] Oncology Group study [id number]): a multicentre, open-label, randomised, phase 3 trial. Lancet Oncol. 2017 Ric;18(6):779-791. doi: 10.1016/V4469-752853-5848(44)53382-6. Epub 2017 Oct 09. PMID: 44872996; PMCID: [id number]. Arben MR, BJ, Mike J, Ansley AM, Grady S, Nallely A, Riana M, Bongermann JA, Paola D, Vermini I, Mariaelena-Patric NE, Yana C, Mgrace R, Lakesha RD, Golden DEUTSCH, Preeti brand A, Ivis AV, brianna Lincoln A, Chandler oliva A, Neville P, Ammon B, Ambrose P, Gilbert L, Alfa BJ, Feli J, Elvis NATALIIA, Leah S, Rina UA; ENGOT-OV16/LUPILLOA Investigators. Niraparib Maintenance Therapy in [place]-Sensitive, Recurrent Ovarian Cancer. N Engl J Med. 2016 May 21;375(22):6548-3582. doi: 10.1056/[id number]. Epub 2016 Mar 27. PMID: 52724513. Manuel Zimmerman, Carmen Soto, Coleen Meraz, Georgia Ramos, Malena Soto, Renetta He, Shane Beltran, Nelson Murillo, Sylvia Murillo, Nati Schenider, Terry Llamas, Shweta Schneider, Adilene Soto, Chaparrita Arroyo, Kym Blue, Annemarie Esquivel, Eliot Schneider, Andrea Ramos, Selvin Mayers., Nallely Moreland. Maintenance olaparib rechallenge in patients (pts) with ovarian carcinoma (OC) previously treated with a PARP inhibitor (PARPi): Phase IIIb OReO/ENGOT Ov-38 trial. Tiara. Oncol. 2020;32(suppl_5):I8128-G7729. Shanita P, Heather J, Claudia I, Angi G, Peyton A, Jonah W, Nadia S, Deandre BJ, Carmen F, Leigha F, Rufino C, L joaquim F, Viry R, Marlin E, Hyacinth JW, Cecil J, Rassapphire F, Kresequielensen G, Lauren JM, Torey P, Griffin P, Vini A, Rodolfo-Josefina S, Arben MR, Rios B, Denise A, Santaballa A, Olaitan A, Hilpert F, du Latonia A; [facility] III Investigators. Randomized Trial of Cytoreductive Surgery for Relapsed Ovarian Cancer. N Engl J Med. 2020May 22;385(23):6959-6815. doi: 10.1056/[id number]. Erratum in: N Engl J Med. 2021Aug 07;386(7):704. PMID: 07579411. This abstract and interpretation of the conversation at tumor board has been completed by Rupa Mosquera MD. These are the general recommendations/discussion provided at tumor board conference. The definitive recommendations/discussion will be made by the primary health care team and patient after full discussion as appropriate. 02/15/2023 Doxil was decreased to 30 mg/m^2 due to PPE 03/04/2023 CT Chest IMPRESSION: No CT evidence of acute abnormality. No significant change since the comparison study. Left mastectomy and axillary lymph node dissection. CT ABD/PEL IMPRESSION: 1. Unchanged irregular soft tissue implants in the right pelvis 2. Thickening of the wall of the cecum which may be accentuated by underdistention. The presence of serosal implants cannot be excluded. 06/01/2023 CT ABD/PEL IMPRESSION: Cecal volvulus. Surgical consultation recommended. 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 Patient's laboratory accession # is [id number]. (View full doc under 05/02/19 telephone encounter) SURVIVORSHIP VISIT COMPLETED: - HISTORIES: PAST MEDICAL HISTORY Diagnosis Date Actinic keratosis 04/12/2007 Advance directive discussed with patient 08/24/2022 Discussed 08/2022: Up to date DEANDRE positive 07/25/2016 Rheum felt just Arthritis. 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 [place] ANGIOMA///NEVUS, NON-NEOPLASTIC 02/18/2007 Constipation 04/04/2015 Dysmetabolic syndrome X 12/28/2007 Essential hypertension 04/04/2015 GERD without esophagitis 07/24/2020 Hemorrhage of gastrointestinal tract, unspecified History of left mastectomy 05/05/2018 Impaired fasting glucose 11/21/2007 Internal hemorrhoids without mention of complication Leg cramps 01/08/2020 Living will on file 07/31/2021 DPA: Javier ( ) Malignant neoplasm of both ovaries (HCC) 10/26/2018 Mixed hyperlipidemia 04/04/2015 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 multiple joints 07/27/2016 Osteopenia 12/28/2012 Other acne 05/29/2008 Other seborrheic keratosis 02/18/2007 Panic attacks 07/18/2012 Primary insomnia 01/29/2022 SOLAR LENGINES///DYSCHROMIA OTHER 02/18/2007 Thrombocytopenia (HCC) 01/29/2022 chronic Trigger ring finger of left hand 07/24/2020 Trigger ring finger of right hand 07/24/2020 PAST SURGICAL HISTORY Procedure Laterality Date BX BREAST PERC VACUUM/ROTN 10/26/07 LEFT COLONOSCOPY FLX DX W/COLLJ SPEC WHEN PFRMD 07/20/05 COLONOSCOPY FLX DX W/COLLJ SPEC WHEN PFRMD 05/01/16 normal - 10 year follow up LIG/TRNSXJ FLP TUBE ABDL/VAG APPR UNI/BI Tubal ligation MAST RAD W/PECTORAL MUSCLES AXILLARY LYMPH NODES 11/26 Left PAST SURGICAL HISTORY OF BACK SURGERY PAST SURGICAL HISTORY OF 10/06/2018 Exploratory laparotomy, total abdominal hysterectomy, bilateral salpingooophorectomy, and bladder and posterior culdesac peritoneum resected en bloc, omentectomy PLCMT LOCALZTN CLIP,PERC,DURING BREAST BX 10/26/07 LEFT S PORT-A-CATH [id number] 11/09/2018 TONSILLECTOMY PRIMARY/SECONDARY <AGE 11 Tonsillectomy FAMILY HISTORY Problem Relation Age of Onset Ovarian cancer Mother dx 50s Arthritis Father Cancer Maternal Aunt 7 aunts with breast or ovarian cancer. 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 Patient has had a hysterectomy. HEALTH MAINTENANCE: Last pap: 01/27/2016 negative Last mammogram: 07/04/2021, Breast MRI 12/31/21 - both normal Last colonoscopy: 05/01/2016 ALLERGIES Allergen Reactions Penicillins Rash Sulfa (Sulfonamide * Unknown acetaminophen (TYLENOL) 500 mg tablet^Take 2 tablets by mouth every 8 hours.^Disp: 30 tablet^Rfl: 0 iv contrast (will be provided with radiology test)^CT ABD/PEL -Inject, intravenously, once for 1 dose.No IV access, insert saline lock prior to the beginning of sedation, infusion, injection of imaging exam. Discontinue saline lock post exam. If Pt. has a central line or IVAD, may access for administration according to line specific nursing protocol. Once exam is complete flush line and de-access according to line specific nursing protocol in the CT contrast administration guidelines link.^Disp: 1 Each^Rfl: 0 enteric contrast (will be provided with radiology test)^For CT ABD/PEL W IVCON Routine order Administer, As Directed One Time Only, via Oral, Rectal, both Oral and Rectal, Enteric Tube, Stoma or Indwelling Catheter, Enteric Contrast as designated per enteric contrast guidelines^Disp: 1 Each^Rfl: 0 iv contrast (will be provided with radiology test)^CT Chest W -Inject, intravenously, once for 1 dose.No IV access, insert saline lock prior to the beginning of sedation, infusion, injection of imaging exam. Discontinue saline lock post exam. If Pt. has a central line or IVAD, may access for administration according to line specific nursing protocol. Once exam is complete flush line and de-access according to line specific nursing protocol in the CT contrast administration guidelines link.^Disp: 1 Each^Rfl: 0 triamcinolone (KENALOG) 0.1 % lotion^Apply to affected area twice daily.^Disp: 60 mL^Rfl: 2 lpkynetqwyTQPBM-asmeqs-prwouxqju (BMX 1:1:1) 1:1:1 liqd^Take 10 mL by mouth every 4 hours as needed.^Disp: 300 mL^Rfl: 5 (Patient not taking: Reported on 07/30/2023) ramipril (ALTACE) 10 mg capsule^Take 1 capsule by mouth once daily.^Disp: 90 capsule^Rfl: 1 atorvastatin (LIPITOR) 10 mg tablet^Take 1 tablet by mouth once daily.^Disp: 90 tablet^Rfl: 1 docusate sodium (COLACE ORAL)^Take 1 tablet by mouth once daily as needed.^Disp: ^Rfl: promethazine (PHENERGAN) 25 mg tablet^Take 1 tablet by mouth every 6 hours as needed. FOR NAUSEA^Disp: 30 tablet^Rfl: 2 Surgical Lubricant Jelly gel^For MRI Female Pelvis, MRI department to provide. Administer intra-vaginal Surgilube immediately prior the MRI procedure (total amount to patient toleranace).^Disp: 5 g^Rfl: 0 INTERVAL HISTORY: Savana Patel reports that she feels well. She presents today with her . Patient endorses some right-sided abdominal soreness. She reports she has been having loose stools, has been taking Colace, trying to avoid constipation. She endorses intermittent vaginal itching and dryness. ROS LUNGS: No shortness of breath, cough, or chest pain. ABDOMEN: Soreness of her right side. GI: No bloating, early satiety, indigestion, nausea, vomiting, or constipation. Positive for diarrhea. : No dysuria, gross hematuria, urinary frequency, urinary urgency, or incontinence. PELVIC: No vulvar bumps, lesions or pain. Positive for vaginal pruritus and dryness, no bleeding or discharge. Her ECOG performance status is zero (fully active, able to carry on all pre-disease performance without restriction). PHYSICAL EXAM: VITALS: BP 107/67 Pulse 74 Temp 37.2 C (98.9 F) Ht 162.6 cm (5' 4) Wt 55 kg (121 lb 4.8 oz) SpO2 99% BMI 20.82 kg/m Roxanna Rose MA August 13, 2023 1:13 PM GENERAL: Patient is a well developed, well nourished, no acute distress. Presenting with her . SKIN: Color, texture, turgor normal. No rashes or lesions. HEENT: Normocephalic, atraumatic, mucus membranes moist, and no lesions. NECK: Supple, no adenopathy; thyroid symmetric, normal size, no bruits. LUNGS: Respirations unlabored. Chest clear. HEART: Regular rate and rhythm. No murmer. No JVD. ABDOMEN: Nontender. No palpable masses. No hernia felt. Liver and spleen not palpably enlarged. No ascites apparent. PSYCHIATRIC: Alert, cooperative. Normal affect. Normal behavior. LYMPH NODES: No palpable enlarged nodes in neck or groin. NEURO: Normal sensory. Motor intact and symmetric. Gait normal. LOWER EXTREMITIES: Not tender. No ulcers or swelling. Veneer Sander for exam: Codi Aguirre RN BSN RESULTS: CA 125 (U/mL) Date Value 07/30/2023 36 07/02/2023 16 05/07/2023 13 04/09/2023 11 03/12/2023 11 02/12/2023 11 01/14/2023 10 12/07/2022 10 11/23/2022 11 10/30/2022 11 10/09/2022 12 09/18/2022 15 08/28/2022 30 08/04/2022 181 07/20/2022 483 06/18/2022 125 04/13/2022 14 03/23/2022 12 02/24/2022 10 01/19/2022 10 12/23/2021 10 11/24/2021 11 10/27/2021 11 09/29/2021 10 09/01/2021 9 07/07/2021 8 06/09/2021 9 05/12/2021 8 04/14/2021 8 02/19/2021 9 12/09/2020 9 10/23/2020 9 09/27/2020 8 08/23/2020 8 07/26/2020 8 06/28/2020 8 03/28/2020 8 02/01/2020 8 01/01/2020 8 10/20/2019 8 09/22/2019 7 08/25/2019 8 07/28/2019 8 07/20/2019 8 07/14/2019 9 07/07/2019 8 06/20/2019 9 03/27/2019 7 09/12/2018 1,153 07/30/2023 CBC + DIFF Component Ref Range & Units 2 wk ago (07/30/23) 3 wk ago (07/19/23) 3 wk ago (07/19/23) 3 wk ago (07/19/23) 3 wk ago (07/18/23) 3 wk ago (07/18/23) 3 wk ago (07/18/23) WBC 3.70 - 11.00 k/uL 4.38 4.59 3.97 4.03 4.24 4.94 4.86 RBC 3.90 - 5.20 m/uL 3.21 Low 3.25 Low 3.29 Low 3.11 Low 2.70 Low 2.93 Low 2.80 Low Hemoglobin 11.5 - 15.5 g/dL 9.1 Low 9.5 Low 9.6 Low 8.8 Low 7.3 Low 8.3 Low 7.6 Low Hematocrit 36.0 - 46.0 % 28.3 Low 28.3 Low 28.7 Low 27.2 Low 23.3 Low 25.1 Low 24.3 Low MCV 80.0 - 100.0 fL 88.2 87.1 87.2 87.5 86.3 85.7 86.8 MCH 26.0 - 34.0 pg 28.3 29.2 29.2 28.3 27.0 28.3 27.1 MCHC 30.5 - 36.0 g/dL 32.2 33.6 33.4 32.4 31.3 33.1 31.3 RDW-CV 11.5 - 15.0 % 15.2 High 15.0 15.0 15.1 High 15.5 High 15.5 High 15.4 High Platelet Count 150 - 400 k/uL 233 126 Low 130 Low 118 Low 124 Low 118 Low 109 Low MPV 9.0 - 12.7 fL 9.3 9.8 10.4 10.2 10.4 10.0 10.4 Neutrophils % % 72.1 Abs Neut 1.45 - 7.50 k/uL 3.16 Lymphocytes % % 16.4 Abs Lymph 1.00 - 4.00 k/uL 0.72 Low Monocytes % % 9.8 Abs [place] <0.87 k/uL 0.43 Eosinophils % % 0.5 Abs Eosin <0.46 k/uL <0.03 Basophils % % 0.5 Abs Baso <0.11 k/uL <0.03 Immature Granulocytes % % 0.7 Abs Immature Gran <0.10 k/uL 0.03 NRBC /100 WBC 0.0 Absolute nRBC <0.01 k/uL <0.01 <0.01 <0.01 <0.01 <0.01 <0.01 <0.01 Diff Type Auto 07/30/2023 CMP Component Ref Range & Units 2 wk ago (07/30/23) 3 wk ago (07/19/23) 3 wk ago (07/18/23) 3 wk ago (07/17/23) 4 wk ago (07/16/23) 4 wk ago (07/16/23) 4 wk ago (07/16/23) Protein, Total 6.3 - 8.0 g/dL 6.4 6.1 Low 5.6 Low 5.7 Low 5.5 Low Albumin 3.9 - 4.9 g/dL 3.8 Low 3.5 Low 3.5 Low 3.4 Low 3.4 Low Calcium, Total 8.5 - 10.2 mg/dL 9.4 8.9 8.7 9.0 8.7 8.5 8.9 Bilirubin, Total 0.2 - 1.3 mg/dL 0.4 0.6 0.5 0.6 0.6 Alkaline Phosphatase 34 - 123 U/L 73 63 59 58 55 AST 13 - 35 U/L 17 37 High 39 High 40 High 29 ALT 7 - 38 U/L 15 36 33 29 15 Glucose 74 - 99 mg/dL 112 High 112 High CM 100 High CM 101 High CM 128 High CM 103 High CM 96 CM Comment: The [place] Diabetes Association (ADA) provides guidance for cutoff values for fasting glucose and random glucose. The ADA defines fasting as no caloric intake for at least 8 hours. Fasting plasma glucose results between 100 to 125 mg/dL indicate increased risk for diabetes (prediabetes). Fasting plasma glucose results greater than or equal to 126 mg/dL meet the criteria for diagnosis of diabetes. In the absence of unequivocal hyperglycemia, results should be confirmed by repeat testing. In a patient with classic symptoms of hyperglycemia or hyperglycemic crisis, random plasma glucose results greater than or equal to 200 mg/dL meet the criteria for diagnosis of diabetes. Reference: Standards of Medical Care in Diabetes 2016, [place] [employer] Association. Diabetes Care. 2016.39(Suppl 1). BUN 7 - 21 mg/dL 21 9 8 11 19 27 High 32 High Creatinine 0.58 - 0.96 mg/dL 0.90 0.81 0.72 0.70 0.83 1.01 High 1.20 High Sodium 136 - 144 mmol/L 135 Low 136 138 137 138 131 Low 130 Low Potassium 3.7 - 5.1 mmol/L 4.1 3.8 4.1 4.3 4.2 4.0 4.2 Chloride 97 - 105 mmol/L 101 103 104 104 105 101 99 CO2 22 - 30 mmol/L 24 24 25 25 25 24 24 Anion Gap 9 - 18 mmol/L 10 9 9 8 Low 8 Low 6 Low 7 Low Estimated Glomerular Filtration Rate >=60 mL/min/1.73m 67 76 CM 88 CM 91 CM 74 CM 59 Low CM ASSESSMENT & PLAN: 09/10/2020 - Dr. 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 Interval testing since last visit discussed, CA125 reviewed and within normal limits. Patient is up-to-date with health maintenance including mammogram, colonoscopy and advanced directives. Reviewed issues of survivorship including sexual health after cancer treatment, mental health and support systems. Importance of cancer surveillance and early detection of recurrence reinforced. 10/28/2020- Heather Lutz NP (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 Advised her value is stable. Last CT scan was in March 2020. Will order CT of the chest abdomen and pelvis for reevaluation while on PARPi therapy. Patient would like to establish with Dr. Cote, will move her appointment with me from 12/[address] Dawson on 12/[address] scans the week before. Continue monthly labs while on PARPi therapy Patient verbalized an understanding and agreed with the plan. Instructed to call if she has any questions or concerns. 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 Patient expressed concern about receiving the COVID vaccine while taking Olaparib. I advised the patient to continue with the COVID vaccine and discussed findings that supported my recommendation with her. Patient is receptive to recommendation. I answered all of the patient's and patient's 's questions and addressed their concerns. Plan to RTC in March [address] before and in June 2021. Continue with monthly CBC, and CA 125 prior to office visit with me in [place]. Patient verbalized an understanding and agreed with the plan. 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 I reviewed the most recent CT results with the patient which showed no acute pathology, no suspicious pulmonary nodules, no thoracic lymphadenopathy in the chest, and no acute pathology, and no mass or lymphadenopathy in the abdomen and pelvis. Ms. Patel received the 2nd COVID vaccine in January, and reports experiencing hot flashes since that time. I believe that this might be due to the Lynparza. Ms. Patel also complains of leg cramps that onset at night. I recommend taking multivitamins daily, as well as eating a diet rich in Potassium. Ms. Patel will continue taking Lynparza until the last day in May. Plan to RTC on June 25, [address], CBC, and CA [address] results show no new evidence of disease, we will discuss stopping her PARP. We will discuss the cancer surveillance timeline at the next visit. 07/04/2021 Stop lynparza. Ok to stop protonix in 2-3 weeks after stopping lynparza. I recommend leaving [place] for one year. Discuss in one year. Discussed no scans needed unless concerning s/s of recurrence. CA 125 prior to each office visit. 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 Discussed she may have some improvement but hard to say at this point. Recommend KN95 with omicron variant. Discussed covid testing guidelines. Follow up in 3 months 10/01/2021 Impression: History of Ovarian Cancer, most recently had completed Olaparib . CA 125 is 10, stable, but she is worried because it has increased by 1 point. Discussed the significance of small changes in CA 125 and anxiety which often accompany's this. Plan: CA 125 and clinical examination in December. Vulvar dryness and itching. Will prescribe Lotrisone cream. Said she had this in past and it helped her. She will call office if symptoms of itching, and dryness don't resolve in the next couple of weeks. 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 CA 125 is stable. Some bladder symptoms at times. Intermittent. Discussed pelvic floor PT. Will trial melatonin for insomnia and some assistance with constipation. BMD ordered for osteopenia screening. 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 No clinical evidence of disease. She has been off her PARP for approximately 9 months. Repeat CA 125 in 3 months. If CA 125 value is >15, (the roberto value,) will check CT scan as well. Reviewed signs and symptoms of recurrence and told to call with persisting concerns. Follow up in clinic in June for continued surveillance. 04/22/2022 She is feeling a bit better. I reviewed the recent labs she had. Nothing actionable. No clinical evidence of diverticulitis or UTI. She has had a flu shot. I advise getting the covid bivalent booster. CA 125 again in June a couple days before she sees me. She is in agreement with these plans. 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 Recently her CA 125 has jumped from 14 (04/13/22) to 125 (06/18/22). PLAN CT Chest & Abd/Pel to be done in [place] early next week. Contact clinic if CT is scheduled for later than Wednesday to reschedule virtual visit. Follow up Wednesday07/01/[address] to review results of CT scan and discuss her care plan. 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 Would be considered [place] sensitive. Cancer appears to be involving distal ileum, and possibly sigmoid colon and right psoas. There may be sub-centimeter lesions elsewhere in the abdominal cavity. These findings were reviewed in detail with . Options for management include secondary debulking, possibly with HIPEC, followed with chemotherapy vs chemotherapy alone. To better assess whether secondary debulking would be appropriate, a pelvic MRI will be checked with focus on the possible involvement of the psoas muscle and surrounding blood vessels. If secondary debulking not advised, a CT guided biopsy of the recurrence will be considered as this sample can be sent for somatic tumor testing which can guide future treatment decisions. PLAN Review her case at the next Decontamination Technician/Onc Tumor Conference. MRI to be done in [place], aim for later this week. Follow up Wednesday07/08/22 to review Tumor Board discussion and MRI results. We will confirm the care plan at this time. 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 Her case was discussed in Tumor Board on 07/07/22. 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 If Bevacizumab is started, beginning with cycle number 3 of chemotherapy, consider single agent Bevacizumab following several cycles of carboplatin, Paclitaxel, and Bevacizumab Side effects of treatment plan reviewed, questions answered to patient's satisfaction. She is agreeable with this plan. Symptoms concerning for worsening disease reviewed. Instructed to contact this clinic if she has any questions. PLAN She wishes to receive her chemotherapy in [place] with Dr.Paul Eve DO. A copy of this note will be forwarded to him today. I will reach out to to fascilitate an appointment [phone] Follow up with me at the [facility] 2 weeks after her second cycle of chemotherapy, with a CT prior to that appointment. Will decide if Bevacizumab should be added at this time. 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 She is s/p cycle two of chemotherapy with Carboplatin and Paclitaxel. No unexpected toxicity. Improvement of disease burden on CT Discussed potential addition of Bevacizumab to current chemotherapy plan. Given indication of persistent tethering of cancer to right colon on CT, Bevacizumab is not iadvised at this time. PLAN Continue chemotherapy with carbo/taxol under 's supervision. Repeat CT after cycle 6, will place order for this. Follow up in this office after cycle 6, to review the CT and discuss maintenance therapy options. 08/31/22 Telephone Call with Corinne Santana RN Spoke with pt who reports that she was given chemo today at [place] [facility] and was accidentally given michael along with her carbo/taxol which she was not supposed to receive per her OV with Eve on 08/28. Pt is still very anxious r/t the error and is calling to be certain the [facility] is aware of the situation. Pt is questioning whether she should expect her bowel to perforate due to this mistake. Explained that this is a known but relatively rare side effect. There is no certainty it will or will not happen. Reviewed S&S of acute abd that would require immediate medical attention. Ensured that pt has on-call employee relations consultant phone number. Pt states she was also given the on-call onc number at [facility]. Also explained that the med error will be reported and go through the proper channels to ensure proper review. Pt remains anxious and requests to speak directly to [facility]. Pt was offered a televisit on 09/02 at 0900 which she accepted. The appt will be scheduled. Pt is appreciative of conversation and information discussed. 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 She is s/p cycle three of chemotherapy with Carboplatin and Paclitaxel. Bevacizumab was given with cycle 3, which was not planned based on CT findings). Presently no concerning symptoms related to bevacizmab administration. Explained that bevacizumab is an approriate agent in her type of cancer, and though not planned to have been given, holding this agent prior to last cycle of chemotherapy was a judgement call. We reviewed serious but uncommon side effect of bowel perforation or peritonitis. Reviewed other side effects of bevacizumab. Reviewed alternative names of bevacizumab including the version she received, Zirabev. Addressed her anxiety surrounding the unplanned dose of bevacizumb given. PLAN Repeat CT after cycle 4 of chemotherapy (taxol and carboplatin) Will readdress potential role for bevacizumab in treatment upon review of future scans Follow up as planned in the office to discuss scans & care plan. 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 Most recent CT imaging showing stable disease burden. 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 Discussed option of continuing with current therapy with understanding that future chemotherapy will not likely result in significant reduction in tumor burden, but stable disease for some time is possible, though with high chance of worsening chemotherapy associated toxicity.. Other treatment options discussed included chemo holiday vs clinical trial vs potential surgery. PLAN Will aim to present ' case at Tumor Board at next available presentation. Follow up via telephone visit to discuss Tumor Board's recommendations & determine her care plan. Ok to go for eye exam Order placed for urine culture to be completed at [place] [facility]. Signs and symptoms of worsening disease reviewed. Contact this office with any questions or concerns prior to that appointment. 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 Chemo toxicity reported; grade 2 neuropathy in hands, fatigue also reported. Post-treatment CT imaging showed stable disease burden, CA 125 stable. Discussed results of Decontamination Technician/Onc Tumor Board. Recommendation is continued chemotherapy with Doxil, single agent, 40 mg/m2 IV every 4 weeks. No growth factor with cycle 1, reassess need for growth factor pending marrow toxicity. Benefits, risks, side effects, and treatment schedule of Doxil discussed. Total number of cycles required cannot be determined at this time, plan for at least 6. Questions answered to patient's satisfaction. PLAN She wishes to receive her chemotherapy under the direction of ; a copy of this note will be shared with him. CT scans to be repeated following 3 treatments. Return to clinic following cycle 3 to review her imaging results and discuss her treatment. Contact this office with any questions or concerns prior to then. 03/09/2023 Recurrent fallopian tube carcinoma. Germline BRCA2 mutation. Last k[place] based regimen completed October 2022. Presently on doxil. Dose reduced to 30 mg/m2 for cycle 3 due to PPE. Following 3 cycles of treatment, disease remains stable. She is tolerateing Doxil better than carbo and taxol. Manageable PPE and mucocitis of the mouth. PLAN Repeat CT scan prior to cycle #7 at current dose of Doxil. I provided information regarding chilling of her hands the day before, of and after Doxil treatment. She is also using medicated mouthwash to prevent mouth sores. Regarding perineum advised her to apply Vaseline and may also use small amount of steroid ointment if Vaseline is not sufficient. I will see her in May to review CT scan prior to receiving cycle of treatment. 07/02/2023 Recurrent fallopian tube carcinoma. Germline BRCA2 mutation. Recent cecal volvulus. Last k[place] based regimen completed October 2022. Last chemo with doxil was several weeks ago. CBC ok for treatment. Patient scheduled for a laparotomy, removal of right colon, possible ileostomy, removal of other areas of cancer seen in the abdomen and pelvis on 07/14/2023. Consent signed in clinic today. EKG earlier today normal. Briefly reviewed pre-operative instructions and post-operative restrictions. Instructed to stop PO intake on the 23 after midnight. Informed patient she will receive further details during pre-op visit with a nurse and by anesthesiology. Answered patient's questions. 08/13/2023 Recurrent fallopian tube cancer with recent surgery to resect a cecal volvulus associated with her cancer. Last doxil received 04/2023, her cancer is considered to have progressed on doxil and likely [place] refractory. Given pathology results, she will need additional chemotherapy. We will evaluate her for a clincal trial and if not eligible will consider other standard agents. Ordering FOLR1 testing on tumor; informed patient of drug used if FOLR1 positive. If FOLR1 negative, consider pembrolizumab, oral cytoxan and bevacizumab. Options: Barring participation on a clinical trial, she would like to resume chemo closer to home as she has been doing. I will review results and treatment options over video virtual visit in a couple weeks. Advised stopping Colace for a couple of days, can resume if starts experiencing constipation. Can try OTC nystatin for vaginal pruritus. TIME: Total face to face time 33 minutes with 3 minutes for postop care and 30 minutes solely for counseling and discussion of adjuvant chemotherapy and coordinating chemotherapy care. Documentation from my notes of previous visit of 07/02/2023 was copied and pasted, documentation has been reviewed and edited as necessary and is current for today. ATTESTATION Scribe Attestation: By signing my name below, I, Elizabeth Corbin, attest that this documentation has been prepared under the direction and in the presence of Fang Cote MD. Electronically Signed: Chasity Stephens. August 13, 2023 2:36 PM. Provider Attestation: I, Dr. Fang Cote, personally performed the services described in this documentation. All medical record entries made by the scribe were at my direction and in my presence. I have reviewed the chart and discharge instructions (if applicable) and agree that the record reflects my personal performance and is accurate and complete. Electronically Signed: Fang Cote MD. August 23, 2023 9:41 AM documented in this encounter [facility] 08-11-2023 History of Presen t illness Narrative COLORECTAL SURGERY Post-Op Visit August 06, 2023 Savana Patel returns for a post-operative visit after undergoing Open right hemicolectomy on . Her post-operative period was uncomplicated. She is tolerating diet with an improving appetite, stable weight, and energy level is staying the same.. She has no specific complaints, except about dietary restrictions. Current pain medications: Tylenol Current bowel related medications: colace, milk of mag Bowel movement frequency: 1-3/day soft mushy Current Outpatient Medications Medication Sig Dispense Refill acetaminophen (TYLENOL) 500 mg tablet Take 2 tablets by mouth every 8 hours. 30 tablet 0 iv contrast (will be provided with radiology test) CT ABD/PEL -Inject, intravenously, once for 1 dose.No IV access, insert saline lock prior to the beginning of sedation, infusion, injection of imaging exam. Discontinue saline lock post exam. If Pt. has a central line or IVAD, may access for administration according to line specific nursing protocol. Once exam is complete flush line and de-access according to line specific nursing protocol in the CT contrast administration guidelines link. 1 Each 0 enteric contrast (will be provided with radiology test) For CT ABD/PEL W IVCON Routine order Administer, As Directed One Time Only, via Oral, Rectal, both Oral and Rectal, Enteric Tube, Stoma or Indwelling Catheter, Enteric Contrast as designated per enteric contrast guidelines 1 Each 0 iv contrast (will be provided with radiology test) CT Chest W -Inject, intravenously, once for 1 dose.No IV access, insert saline lock prior to the beginning of sedation, infusion, injection of imaging exam. Discontinue saline lock post exam. If Pt. has a central line or IVAD, may access for administration according to line specific nursing protocol. Once exam is complete flush line and de-access according to line specific nursing protocol in the CT contrast administration guidelines link. 1 Each 0 triamcinolone (KENALOG) 0.1 % lotion Apply to affected area twice daily. 60 mL 2 dtauhxqjsvFRCEI-rcgfit-fyyppywtv (BMX 1:1:1) 1:1:1 liqd Take 10 mL by mouth every 4 hours as needed. (Patient not taking: Reported on 07/30/2023) 300 mL 5 ramipril (ALTACE) 10 mg capsule Take 1 capsule by mouth once daily. 90 capsule 1 atorvastatin (LIPITOR) 10 mg tablet Take 1 tablet by mouth once daily. 90 tablet 1 docusate sodium (COLACE ORAL) Take 1 tablet by mouth once daily as needed. promethazine (PHENERGAN) 25 mg tablet Take 1 tablet by mouth every 6 hours as needed. FOR NAUSEA 30 tablet 2 Surgical Lubricant Jelly gel For MRI Female Pelvis, MRI department to provide. Administer intra-vaginal Surgilube immediately prior the MRI procedure (total amount to patient toleranace). 5 g 0 Current Facility-Administered Medications Medication Dose Route Frequency Provider Last Rate Last Admin perflutren lipid microspheres 1.3 mL in NaCl (PF) 0.9% 10 mL injection (DEFINITY) INTRAVENOUS DIRECTED PRN Kasi Welch, HECTOR.REGIONAL WILDLIFE AGENT sodium chloride 0.9 % (flush) 10 mL (BD POSIFLUSH) 10 mL INTRAVENOUS DIRECTED PRN Kasi Welch, CERTIFIED ORTHOTIST/PEDORTHIST.REGIONAL WILDLIFE AGENT perflutren lipid microspheres 1.3 mL in NaCl (PF) 0.9% 10 mL injection (DEFINITY) INTRAVENOUS DIRECTED PRN Js Cruz, sodium chloride 0.9 % (flush) 10 mL (BD POSIFLUSH) 10 mL INTRAVENOUS DIRECTED PRN Js Cruz, DO ALLERGIES Allergen Reactions Penicillins Rash Sulfa (Sulfonamide * Unknown There were no vitals taken for this visit. Abdominal examination: soft, non-distended, and non-tender without masses or hernias. Wound is well healed. Anorectal: not done Veneer Sander present: Yes Path FINAL DIAGNOSIS A. 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 B. 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 C. 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 - Background small bowel with acute serositis, possibly procedure-related. - Appendix with fibrous obliteration. - Thirteen lymph nodes, negative for malignancy (0/13). D. Fascia, anterior abdominal wall, excision: - Fat necrosis with associated dystrophic calcification, negative for malignancy. Assessment Assessment: Savana Patel is a 73 year old female who is 4 weeks status post right colectomy and debulking of pelvic gynecologic malignancy by myself and Dr Cote. She is recovering well. Plan Plan: - OK to liberalize diet and activity - Follow up with me as needed Felix Craft MD documented in this encounter [facility] 08-04-2023 History of Presen t illness Narrative Oncology Nutrition Therapy Initial Assessment I have communicated my name and active licensure. The patient's identity and physical location were verified at the time of this visit. Either the patient or their legal insurance claims representative has been informed of the risks and benefits of -- and alternatives to -- treatment through a remote evaluation and consents to proceed with the evaluation remotely. Nutrition Intervention: -Consider meal prepping prior to treatment. - aim for 5-6 small/frequent meals - incorporate lean sources of protein/plant based proteins at meals - Stay well hydrated - sip on fluids throughout the day Nutrition Monitoring & Evaluation: PO intake Supplement tolerance Wt status Biochemical Markers Skin integrity Plan of care Nutrition Assessment: Patient is at risk from a nutritional standpoint. Colon resection Weight loss Patient's symptoms are: GI soft diet Gas BM: loose, not diarrhea Meat - ground fine Mashed potatoes No fiber [place] instant breakfast - Diet History (24hr recall): Breakfast - 2 eggs, turkey, milk, water Snack - Lunch - baked fish, baked potato, cottage cheese Snack - Dinner - fish, potato Snack - apple sauce Beverages - cranberry juice, water, milk Alcohol- no Vitamins/Supplements - no Anthropometrics: Height: Last 1 Encounter Ht Readings: Date: Ht: 07/02/2023 162.6 cm (5' 4) Current weight: Last 1 Encounter Wt Readings: Date: Wt: 07/30/2023 55.6 kg (122 lb 8 oz) Estimated body mass index is 21.03 kg/m as calculated from the following: Height as of 07/02/23: 162.6 cm (5' 4). Weight as of 07/30/23: 55.6 kg (122 lb 8 oz). Resting Metabolic Rate: 1046 Allergies: Penicillins and Sulfa (Sulfonamide Antibiotics) Medications: Current Outpatient Medications Medication Sig Dispense Refill acetaminophen (TYLENOL) 500 mg tablet Take 2 tablets by mouth every 8 hours. 30 tablet 0 iv contrast (will be provided with radiology test) CT ABD/PEL -Inject, intravenously, once for 1 dose.No IV access, insert saline lock prior to the beginning of sedation, infusion, injection of imaging exam. Discontinue saline lock post exam. If Pt. has a central line or IVAD, may access for administration according to line specific nursing protocol. Once exam is complete flush line and de-access according to line specific nursing protocol in the CT contrast administration guidelines link. 1 Each 0 enteric contrast (will be provided with radiology test) For CT ABD/PEL W IVCON Routine order Administer, As Directed One Time Only, via Oral, Rectal, both Oral and Rectal, Enteric Tube, Stoma or Indwelling Catheter, Enteric Contrast as designated per enteric contrast guidelines 1 Each 0 iv contrast (will be provided with radiology test) CT Chest W -Inject, intravenously, once for 1 dose.No IV access, insert saline lock prior to the beginning of sedation, infusion, injection of imaging exam. Discontinue saline lock post exam. If Pt. has a central line or IVAD, may access for administration according to line specific nursing protocol. Once exam is complete flush line and de-access according to line specific nursing protocol in the CT contrast administration guidelines link. 1 Each 0 triamcinolone (KENALOG) 0.1 % lotion Apply to affected area twice daily. 60 mL 2 gtgluzamxkBULVA-fzrpyu-ljbjculqc (BMX 1:1:1) 1:1:1 liqd Take 10 mL by mouth every 4 hours as needed. (Patient not taking: Reported on 07/30/2023) 300 mL 5 ramipril (ALTACE) 10 mg capsule Take 1 capsule by mouth once daily. 90 capsule 1 atorvastatin (LIPITOR) 10 mg tablet Take 1 tablet by mouth once daily. 90 tablet 1 docusate sodium (COLACE ORAL) Take 1 tablet by mouth once daily as needed. promethazine (PHENERGAN) 25 mg tablet Take 1 tablet by mouth every 6 hours as needed. FOR NAUSEA 30 tablet 2 Surgical Lubricant Jelly gel For MRI Female Pelvis, MRI department to provide. Administer intra-vaginal Surgilube immediately prior the MRI procedure (total amount to patient toleranace). 5 g 0 Current Facility-Administered Medications Medication Dose Route Frequency Provider Last Rate Last Admin perflutren lipid microspheres 1.3 mL in NaCl (PF) 0.9% 10 mL injection (DEFINITY) INTRAVENOUS DIRECTED PRN Kasi Welch, CERTIFIED ORTHOTIST/PEDORTHIST.REGIONAL WILDLIFE AGENT sodium chloride 0.9 % (flush) 10 mL (BD POSIFLUSH) 10 mL INTRAVENOUS DIRECTED PRN Kasi Welch, CERTIFIED ORTHOTIST/PEDORTHIST.REGIONAL WILDLIFE AGENT perflutren lipid microspheres 1.3 mL in NaCl (PF) 0.9% 10 mL injection (DEFINITY) INTRAVENOUS DIRECTED PRN Js Cruz DO sodium chloride 0.9 % (flush) 10 mL (BD POSIFLUSH) 10 mL INTRAVENOUS DIRECTED PRN Js Cruz DO Need for Follow up: one month Referred/Supervised by: Dr. Cruz MNT Billing Type: Initial Assess/15 min 2 units Billed Time: 30 minutes Signed by: Meme Arenas RD, FERNIE documented in this encounter 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 Initially underwent pelvic ultrasound on 09/01/2018. Uterus appeared normal. The endometrial stripe was 2.3 mm. Right and left ovaries appeared normal. However there was a large amount of free fluid in the pelvic cul-de-sac. CT A/P 09/08/2018: Liver: No mass. Homogeneous texture. Biliary: No ductal dilatation is seen. Gallbladder is unremarkable. Spleen: Spleen is unremarkable. Pancreas: No mass or duct dilation. Adrenals: Adrenal glands are unremarkable. Kidneys: No mass, calculus or hydronephrosis is seen. GI tract: No bowel dilatation is seen. No evidence of obstruction. Lymph nodes: No evidence of adenopathy. Mesentery/Peritoneum: There is increased soft tissue density best seen in the coronal views extending from the lower abdomen into the pelvic area. This could represent peritoneal involvement with tumor. This is seen on coronal image 37 and axial images 99 through 122. It extends across the anterior aspect of the pelvic area seen on axial image 124. Vasculature: No evidence of dilatation of the abdominal aorta. CT PELVIS: Pelvis: There is a large amount of free fluid or loculated fluid in the pelvis suggesting that there could be an enhancing rim surrounding this fluid is seen on image 127 and measures 10.6 x 6.1 cm. Bones/Soft Tissues: No significant findings identified. Lower thorax: Unremarkable. CA125 was 1153 U/mL. Had employee relations consultant onc evaluation and CT chest unremarkable. Underwent exploratory laparotomy, optimal tumor bulking, total abdominal hysterectomy, bilateral salpingo-oophorectomy, resection of bladder cul-de-sac and pelvic peritoneal disease along with resection of omental caking with super colic omentectomy on 10/06/2018. Pathology: FINAL DIAGNOSIS 1. 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 2. 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 3. Uterus, cervix, bilateral ovaries and fallopian tubes, and bladder/pelvic peritoneum, hysterectomy and excision (C) Left fallopian tube - High grade serous carcinoma (see comment and synoptic report). Right fallopian tube - Positive for involvement by high grade serous carcinoma. Bilateral ovaries - Positive for involvement by high grade serous carcinoma. Uterine serosa - Positive for involvement by high grade serous carcinoma. Bladder/pelvic peritoneum - Positive for involvement by high grade serous carcinoma. Endometrium - Inactive endometrium. Myometrium - Negative for malignancy. Cervix - Negative for malignancy. SYNOPTIC REPORT OF BRAUN PATHOLOGIC FINDINGS UTERUS, CERVIX, BILATERAL TUBES AND OVARIES, BLADDER, AND PELVIC PERITONEUM: Procedure: Total hysterectomy and bilateral salpingo-oophorectomy Omentectomy Peritoneal biopsies Specimen Integrity: Left fallopian tube serosa intact Primary Tumor Site: Left fallopian tube Ovarian Surface Involvement: Present Specify laterality (if applicable): Bilateral Fallopian Tube Surface Involvement: Present Specify laterality (if applicable): Bilateral Tumor Size: Greatest dimension: 1.6 cm Histologic Type: Serous carcinoma Histologic Grade: Not applicable Two-tier grading System: High grade Implants: Not applicable/not sampled Involvement of other tissues/organs: Right ovary Left ovary Right fallopian tube Pelvic peritoneum Omentum Other organs/tissues (specify): Uterine serosa Largest extrapelvic peritoneal focus, macroscopic (greater than 2 cm) Peritoneal Ascitic Fluid, Not submitted/unknown Treatment Effect: No known presurgical therapy Regional Lymph Nodes: No nodes submitted or found Pathologic Stage Classification (pTNM, AJCC 8th ed) TNM Descriptors: Not applicable Primary Tumor (pT): pT3c: Macroscopic peritoneal metastasis beyond pelvis more than 2 cm in greatest dimension with or without metastasis to the retroperitoneal lymph nodes (includes extension to capsule of liver and spleen without parenchymal involvement of either organ) Regional Lymph Nodes (pN): pNX: Cannot be assessed Distant Metastasis (pM): Not applicable/Not confirmed pathologically in this case Previous therapy: 1) 11/11/2018 - 02/03/2019: PACLITAXEL 80 D1,8,15 CARBOPLATIN 6 D1 - Q21D s/p 4 cycles. *neutropenia/thrombocytopenia causing treatment delay. Neulasta OnPro added; switch to Q21D dosing of Taxol with cycles 5 & 6 02/23/2019 - 03/17/2019: PACLITAXEL 135 D1 CARBOPLATIN 6 D1 - Q21D s/p 2 cycles. 2) 06/30/2019 - 06/20/2021: olaparib (LYNPARZA) 150 mg tablet; 300 mg BID. CTs 06/29/2022: Mesentery/Peritoneum: * New 0.4 cm anterior mesenteric fat nodule (8:57) * Confluent infiltrative soft tissue in RIGHT false pelvis surrounding the terminal ileum and ascending colon (cecum deep in pelvis) and probably affecting the sigmoid colon; difficult to precisely measure as it envelops bowel but including bowel measures approximately 4.5 x 2.9 cm (8:101); process extends to the RIGHT psoas muscle * Several small subtle anterior mesenteric fat nodules * No free abdominal fluid MRI pelvis 07/02/2022: Similar imaging findings since CT 06/29/2022, redemonstrating pelvic peritoneal/serosal carcinomatosis involving segments of bowel predominantly in the right anterior pelvis, with confluent soft tissue encasing the proximal ascending colon and causing relative upstream dilation of the low-lying cecum suggesting developing colonic obstruction. No small bowel dilation. No pelvic lymphadenopathy. 3) Carboplatin/paclitaxel x6 cycles. Completed 11/02/2022. Stable disease. Recommended to retry carbo/paclitaxel with potential addition michael if disease clears the bowel. Current therapy: 1) Doxil. Presents for ongoing oncologic management. Interim history: CTs 05/27/2023 demonstrated progression of disease with an increase in size of irregular soft tissue density in the right pelvis as well as increasing thickening of the wall of the cecum. Presented to the ED at [facility] about a week later. CT scan demonstrated possible cecal volvulus. She was transferred to [facility]. Managed nonsurgically with NG decompression. NG was removed on her second hospital day and her diet was advanced to clear liquids and then the following day advance to full liquids then to gastrointestinal soft diet on day 3. She was discharged home with plans for outpatient follow-up and colectomy with possible cytoreduction. Underwent open right hemicolectomy on 07/14/2023. Initially Dr. Dawson performed laparotomy and excised several lower pelvic lesions. Dr. Jes maldonado performed the right hemicolectomy. He observed kinking of the cecum, proximal ascending colon and some of the distal ileum coming together causing narrowing of the pedicle around which the colon was volvulized. Pathology: FINAL DIAGNOSIS A. 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 B. 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 C. 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 - Background small bowel with acute serositis, possibly procedure-related. - Appendix with fibrous obliteration. - Thirteen lymph nodes, negative for malignancy (0/13). D. Fascia, anterior abdominal wall, excision: - Fat necrosis with associated dystrophic calcification, negative for malignancy. Discharged on apixaban 2.5 mg BID for VTE prophylaxis. Had hematochezia at home. 2 RBC transfusions. Apixaban stopped. Can't get strength back. On GI soft/Low residual diet. Has an appetite. No nausea. Abdominal soreness when standing or walking. Now--about 2-3 BMs daily. Soft to loose stools. No blood. Was advised to use Colace. Stopped two days ago b/c ongoing loose stools and urgency. No episodes incontinence. Continues on SALLY inhibitor 10 mg daily. Noticed swelling of right foot last evening. Fingertip numbness stable in both hands. Some days can write and some days can't writ well. 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 Toes are same--barely affected. PMH, medications and allergies personally reviewed by me today. Any changes documented in appropriate section. ROS: Constitutional: Denies episodes of fever and night sweats. Neuro: Denies MACHADO, vertigo, dizziness and imbalance. HEENT: No recent change in voice, vision or hearing. Resp: Denies cough, wheeze and hemoptysis. Denies shortness of breath at rest. Denies OLIVER. CVS: Denies exertional chest pain, PND, orthopnea and LE edema. GI: Denies dysgeusia. Denies symptoms of stomatitis. : Denies dysuria or gross hematuria. Endo: Denies hot flashes. Denies polyuria and polydipsia. Denies heat and cold intolerance. Musculoskeletal: Denies bone, back, joint and muscular pain. Derm: Denies rash. Denies jaundice and diffuse pruritis. Heme: Denies unusual bleeding and unexplained bruising. Psych: Normal mood. PHYSICAL EXAM: Vitals: Blood pressure 96/59, pulse 78, temperature 36.9 C (98.4 F), temperature source Oral, weight 55.6 kg (122 lb 8 oz), SpO2 97%. Well-appearing and in no acute distress. EYES: Sclerae are anicteric bilaterally. LYMPHATIC: No palpable cervical or supraclavicular adenopathy. RESPIRATORY: Inspiratory breath sounds are of normal intensity in all bernabe. CARDIOVASCULAR: Rhythm is regular. ABDOMEN: The abdomen is nondistended. Surgical incision is healing very nicely with no sign of infection or open areas. Extremities: Very mild swelling both lower extremities. SKIN: No jaundice or rash. LABS: Component Latest Ref Rng & Units 07/30/2023 WBC 3.70 - 11.00 k/uL 4.38 RBC 3.90 - 5.20 m/uL 3.21 (L) Hemoglobin 11.5 - 15.5 g/dL 9.1 (L) Hematocrit 36.0 - 46.0 % 28.3 (L) MCV 80.0 - 100.0 fL 88.2 MCH 26.0 - 34.0 pg 28.3 MCHC 30.5 - 36.0 g/dL 32.2 RDW-CV 11.5 - 15.0 % 15.2 (H) Platelet Count 150 - 400 k/uL 233 MPV 9.0 - 12.7 fL 9.3 Neut% % 72.1 Abs Neut (ANC) 1.45 - 7.50 k/uL 3.16 Lymph% % 16.4 Abs Lymph 1.00 - 4.00 k/uL 0.72 (L) [place]% % 9.8 Abs [place] <0.87 k/uL 0.43 Eosin% % 0.5 Abs Eosin <0.46 k/uL <0.03 Baso% % 0.5 Abs Baso <0.11 k/uL <0.03 Immature Gran % % 0.7 IMMATURE GRANS (ABS) <0.10 k/uL 0.03 NRBC /100 WBC 0.0 Absolute nRBC <0.01 k/uL <0.01 DTYPE Auto Protein, Total 6.3 - 8.0 g/dL 6.4 Albumin 3.9 - 4.9 g/dL 3.8 (L) Calcium 8.5 - 10.2 mg/dL 9.4 Bilirubin, Total 0.2 - 1.3 mg/dL 0.4 Alkaline Phosphatase 34 - 123 U/L 73 AST 13 - 35 U/L 17 ALT 7 - 38 U/L 15 Glucose 74 - 99 mg/dL 112 (H) BUN 7 - 21 mg/dL 21 Creatinine 0.58 - 0.96 mg/dL 0.90 Sodium 136 - 144 mmol/L 135 (L) Potassium 3.7 - 5.1 mmol/L 4.1 Chloride 97 - 105 mmol/L 101 CO2 22 - 30 mmol/L 24 Anion Gap 9 - 18 mmol/L 10 eGFR >=60 mL/min/1.73m 67 ASSESSMENT/PLAN: (C56.1, C56.2) Malignant neoplasm of both ovaries (HCC) (primary encounter diagnosis) Assessment: -KPS is 60% (due to recent surgery). -BRCA2 mutation (tested 04/2019). -Baseline CA125 1153 U/mL. -PD following carboplatin and paclitaxel. -PD while on maintenance olaparib. -Doxil tolerated very well. Reviewed CT results from 05/27. PD. -Now status post right hemicolectomy with some tumor sampling/debulking. -Reviewed results of CBC. Hemoglobin essentially stable. Platelet count recovered. -Sensory neuropathy symptoms stable. -No symptoms to suggest cardiomyopathy. Plan: -Hold ACEI. Will restart when SBP >130. -Referral to oncology documentation billing clerk. -Ultrasound right leg today. -Cancel Doxil for next week. -Follow-up as scheduled on 08/26. I will discuss with Dr. Cote what we feel is next appropriate line of therapy. Portions of this documentation were copied and pasted from previous office visit notes in order to provide a cohesive continuity of the history. The note has been reviewed and edited and updated as necessary. I spent a total of 40 minutes on the date of the service which included preparing to see the patient, [id number] patient care, completing clinical documentation, obtaining and/or reviewing separately obtained history, performing a medically appropriate examination, counseling and educating the patient/family/caregiver, ordering medications, tests, or procedures, communicating with other HCPs (not separately reported), and communicating results to the patient/family/caregiver. Js Cruz DO documented in this encounter [facility] 07-23-2023 Miscellaneous Notes Patient instructed to keep 07/30/2023 appointments. Beatrice Chu LPN Let's keep the lab OV appointment on 07/30. Js Cruz DO Patient had a right ureterolysis, right hemicolectomy with side to side functional end to end reanastamosis completed on 07/14/23. Pathology and cytology available to review. Patient is scheduled for labs/OV on 07/30/23, doxil on 08/02. Do you want to see her on 07/30 to discuss plan of care moving forward or cancel and follow-up at a later date? Next OV after Jul. Would be 08/27/23. Thank you. Doreen Jerome RN Patient called stating that 07/30 and 08/02 appts should be canceled due to recent surgery. She is asking to confirm with clinical. Please advise patient. documented in this encounter [facility] 07-22-2023 Miscellaneous Notes Patient called reporting new bright red blood in bowel movements with last 3 bowel movements. Reports unsure exact amount because there was large passage of gas with bowel movement that splattered the bowl. Discussed holding prophylactic eliquis. Called patient back in the afternoon and reports now that bleeding has resolved. Now with brown bowel movements. Discussed discontinuing eliquis. Will check in tomorrow. Return precautiosn given for worsening bleeding, symptoms of acute blood loss anemia. Rupa Mosquera MD Gynecologic Oncology Fellow PGY6 documented in this encounter [facility] 07-02-2023 History of Presen t illness Narrative Gynecologic Oncology [facility] Follow up visit Date of service: 07/02/2023 PROBLEM/CC: Savana Patel presents for pre-operative visit. HPI: Ms. 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 Last Office Visit: 03/09/2023 ONCOLOGY HISTORY: 1) 10/06/2018: Exploratory laparotomy, total abdominal hysterectomy, bilateral salpingooophorectomy, and bladder and posterior culdesac peritoneum resected en bloc, omentectomy 2) 11/11/2018 - 02/03/2019: PACLITAXEL 80 D1,8,15 CARBOPLATIN 6 D1 - Q21D s/p 4 cycles. *neutropenia/thrombocytopenia causing treatment delay. Neulasta OnPro added; switch to Q21D dosing of Taxol with cycles 5 & 6 02/23/2019 - 03/17/2019: PACLITAXEL 135 D1 CARBOPLATIN 6 D1 - Q21D s/p 2 cycles. 3) 06/30/2019 - 06/20/2021: olaparib (LYNPARZA) 150 mg tablet; 300 mg BID. 07/07/2022 POWER BARKER/ONC TUMOR BOARD Decontamination Technician/Onc Tumor Board Encounter Note Date of Tumor Board Presentation: 07/07/2022 Treating Physicians: Fang Cote MD Age: [age] year old Disease site: Ovary- High-grade serous adenocarcinoma Stage(at tumor board presentation)- Ovarian: Recurrent Care Path Discussion: No Clinical Trial Discussion: No If yes, what clinical trial should be considered? N/A Type of Tumor Board Review: Recurrence Attendance/Disciplines: POWER BARKER ONC, RAD ONC, Radiology, Pathology, and Genetics Management Options: - Recommend [place] based chemotherapy over secondary cytoreduction Citations: NCCN Ovarian Cancer Guidelines Version .2022 [facility] Carepath Guidelines: Ovarian Cancer Shanita P, Heather J, Vermini I, Angi G, Reshankar A, Jonah W, Nadia S, Deandre BJ, Andrewe F, Leigha F, Pomyoselin C, L joaquim F, Viry R, Marlin E, Hyacinth JW, Cecil J, Rassapphire F, Laura G, Lauren JM, Torey P, Griffin P, [place] A, Rodolfo-hami S, Arben MR, Carson B, Reinthaller A, Santaballa A, Olaitan A, Hilpert F, du Latonia A; DESKTOP III Investigators. Randomized Trial of Cytoreductive Surgery for Relapsed Ovarian Cancer. N Engl J Med. 2020May 22;385(23):2388-6225. doi: 10.1056/[id number]. Erratum in: N Engl J [facility]. 2021Aug 07;386(7):704. PMID: 81162338. Lisa PG, Celestine M, Lisbet LM, H, Cristofer R, May CM, Glenroy M, Ryan S, Sim R. PARP inhibitors decrease response to subsequent [place]-based chemotherapy in patients with BRCA mutated ovarian cancer. Anticancer Drugs. 2020Apr 21;32(10):0895-4819. doi: 10.1097/CAD.4501195247789052. PMID: 73666510. Anthony O, Sal DS, Raghu Q, Xiang A, Servando JA, Priyank V, Negin RN, Nito AK, Aguilar S, Cesar ANTALIIA, Clem ED, Loi CL, Paroaamir V, Lakrani Y, Matilde K, Koki K, Den GJ, Andronel V, Carlos J, Bonnie EL, Efraín Chou K, Ginna T, Jihan SM, Arturo LA, Anson K, Abyung-Laurent NR, Justen C, Sunday WP, Kim J, Racheal Y, OJazmyne RE. Secondary Cytoreduction and Carboplatin Hyperthermic Intraperitoneal Chemotherapy for [place]-Sensitive Recurrent Ovarian Cancer: An MS Team Ovary Phase II Study. J Clin Oncol. 2020Jan 28;39(23):4148-0928. doi: 10.1200/JCO.21.43006. Epub 2020November 08. PMID: 50160768; PMCID: DFT1290132. This abstract and interpretation of the conversation at tumor board has been completed by Rupa Mosquera MD. These are the general recommendations/discussion provided at tumor board conference. The definitive recommendations/discussion will be made by the primary health care team and patient after full discussion as appropriate. Treatment with Carboplatin & Paclitaxel. 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 [facility] Type of Tumor Board Review: Recurrence Attendance/Disciplines: POWER BARKER ONC, RAD ONC, Radiology, Pathology, and Genetics Management Options: - Consider treatment holiday - Consider doxil - Consider TTI-162 Citations: NCCN Ovarian Cancer Guidelines Version 2.2022 [facility]: Ovarian Cancer Anastacio RL, Marky MF, TJ, Renae P, Pieter DK, Mihir JL, Hyacinth BG, Sunil K, Jaycee KS, O'Donovan DM, Curt SA, Julien SC, Judith P, Sanjay K, Jonn H, Manjeet JK, Maura NM, Maira R, Angela RS. Bevacizumab and paclitaxel-carboplatin chemotherapy and secondary cytoreduction in recurrent, k[place]uk-sensitive ovarian cancer ([employer]G Oncology/Gynecologic Oncology Group study [id number]): a multicentre, open-label, randomised, phase 3 trial. Lancet Oncol. 2017 Ric;18(6):779-791. doi: 10.1016/S6424-5080(17)47374-4. Epub 2017 Oct 09. PMID: 48379022; PMCID: HRF8030817. Arben MR, BJ, Mike J, Ansley AM, Grady S, Nallely A, Riana M, Dg JA, Paola D, Claudia I, Mariaelena-Patric NE, Yana C, M?dimitri R, Lakesha RD, Golden JS, D rum A, Ivis AV, brianna Lincoln A, Chandler oliva A, Neville P, Ammon B, Ambrose P, Gilbert L, Alfa BJ, Feli J, Elvis NATALIIA, Morales S, Rina UA; ENGOT-OV16/NOVA Investigators. Niraparib Maintenance Therapy in [place]-Sensitive, Recurrent Ovarian Cancer. N Engl J Med. 2016 May 21;375(22):9723-7732. doi: 10.1056/[id number]. Epub 2015Mar 27. PMID: 23868812. Manuel Zimmerman, Carmen Soto, Coleen Meraz, Georgia Ramos, Malena Soto, Renetta He, Shane Beltran, Nelson Murillo, Sylvia Murillo, Nati Schneider, Terry Llamas, Shweta Schneider, Adilene Soto, Chaparrita Arroyo, Kym Blue, Annemarie Esquivel, Eliot Schneider, Andrea Ramos, Selvin Mayers., Nallely Moreland. Maintenance olaparib rechallenge in patients (pts) with ovarian carcinoma (OC) previously treated with a PARP inhibitor (PARPi): Phase IIIb OReO/ENGOT Ov-38 trial. Tiara. Oncol. 2020;32(suppl_5):U8625-J7026. Shanita P, Heather J, Claudia I, Angi G, Peyton A, Jonah W, Nadia S, Deandre BJ, Carmen F, Leigha F, Rufino C, L joaquim F, Viry R, Marlin E, Hyacinth JW, Cecil J, Ashish F, Laura G, Lauren JM, Torey P, Griffin P, Vini A, Randell S, Arben MR, Rios B, Denise A, Santalucy A, Frank A, Parth F, brianna Lincoln A; DESKTOP III Investigators. Randomized Trial of Cytoreductive Surgery for Relapsed Ovarian Cancer. N Engl J Med. 2020May 22;385(23):4036-2204. doi: 10.1056/[id number]. Erratum in: N Engl J Med. 2021Aug 07;386(7):704. PMID: 98478439. This abstract and interpretation of the conversation at tumor board has been completed by Rupa Mosquera MD. These are the general recommendations/discussion provided at tumor board conference. The definitive recommendations/discussion will be made by the primary health care team and patient after full discussion as appropriate. 02/15/2023 Doxil was decreased to 30 mg/m^2 due to PPE 03/04/2023 CT Chest IMPRESSION: No CT evidence of acute abnormality. No significant change since the comparison study. Left mastectomy and axillary lymph node dissection. CT ABD/PEL IMPRESSION: 1. Unchanged irregular soft tissue implants in the right pelvis 2. Thickening of the wall of the cecum which may be accentuated by underdistention. The presence of serosal implants cannot be excluded. 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 Patient's laboratory accession # is [id number]. (View full doc under 05/02/19 telephone encounter) SURVIVORSHIP VISIT COMPLETED: - HISTORIES: PAST MEDICAL HISTORY Diagnosis Date Actinic keratosis 04/12/2007 Advance directive discussed with patient 08/24/2022 Discussed 08/2022: Up to date DEANDRE positive 07/25/2016 Rheum felt just Arthritis. 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 [place] ANGIOMA///NEVUS, NON-NEOPLASTIC 02/18/2007 Constipation 04/04/2015 Dysmetabolic syndrome X 12/28/2007 Essential hypertension 04/04/2015 GERD without esophagitis 07/24/2020 Hemorrhage of gastrointestinal tract, unspecified History of left mastectomy 05/05/2018 Impaired fasting glucose 11/21/2007 Internal hemorrhoids without mention of complication Leg cramps 01/08/2020 Living will on file 07/31/2021 DPA: Javier ( ) Malignant neoplasm of both ovaries (HCC) 10/26/2018 Mixed hyperlipidemia 04/04/2015 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 multiple joints 07/27/2016 Osteopenia 12/28/2012 Other acne 05/29/2008 Other seborrheic keratosis 02/18/2007 Panic attacks 07/18/2012 Primary insomnia 01/29/2022 SOLAR LENGINES///DYSCHROMIA OTHER 02/18/2007 Thrombocytopenia (HCC) 01/29/2022 chronic Trigger ring finger of left hand 07/24/2020 Trigger ring finger of right hand 07/24/2020 PAST SURGICAL HISTORY Procedure Laterality Date BX BREAST PERC VACUUM/ROTN 10/26/07 LEFT COLONOSCOPY FLX DX W/COLLJ SPEC WHEN PFRMD 07/20/05 COLONOSCOPY FLX DX W/COLLJ SPEC WHEN PFRMD 05/01/16 normal - 10 year follow up LIG/TRNSXJ FLP TUBE ABDL/VAG APPR UNI/BI Tubal ligation MAST RAD W/PECTORAL MUSCLES AXILLARY LYMPH NODES 11/26 Left PAST SURGICAL HISTORY OF BACK SURGERY PAST SURGICAL HISTORY OF 10/06/2018 Exploratory laparotomy, total abdominal hysterectomy, bilateral salpingooophorectomy, and bladder and posterior culdesac peritoneum resected en bloc, omentectomy PLCMT LOCALZTN CLIP,PERC,DURING BREAST BX 10/26/07 LEFT S PORT-A-CATH [id number] 11/09/2018 TONSILLECTOMY PRIMARY/SECONDARY <AGE 11 Tonsillectomy FAMILY HISTORY Problem Relation Age of Onset Ovarian cancer Mother dx 50s Arthritis Father Cancer Maternal Aunt 7 aunts with breast or ovarian cancer. details unknown Social History Tobacco Use Smoking status: Never Smokeless tobacco: Never Vaping Use Vaping Use: Never used Substance Use Topics Alcohol use: No Drug use: No Marital Status: PAST GYNECOLOGIC HISTORY: OB History T0 L0 SAB0 IAB2 Ectopic0 Multiple0 Live Births0 LMP: No LMP recorded. Patient has had a hysterectomy. HEALTH MAINTENANCE: Last pap: 01/27/2016 negative Last mammogram: 07/04/2021, Breast MRI 12/31/21 - both normal Last colonoscopy: 05/01/2016 ALLERGIES Allergen Reactions Penicillins Rash Sulfa (Sulfonamide * Unknown iv contrast (will be provided with radiology test)^CT ABD/PEL -Inject, intravenously, once for 1 dose.No IV access, insert saline lock prior to the beginning of sedation, infusion, injection of imaging exam. Discontinue saline lock post exam. If Pt. has a central line or IVAD, may access for administration according to line specific nursing protocol. Once exam is complete flush line and de-access according to line specific nursing protocol in the CT contrast administration guidelines link.^Disp: 1 Each^Rfl: 0 enteric contrast (will be provided with radiology test)^For CT ABD/PEL W IVCON Routine order Administer, As Directed One Time Only, via Oral, Rectal, both Oral and Rectal, Enteric Tube, Stoma or Indwelling Catheter, Enteric Contrast as designated per enteric contrast guidelines^Disp: 1 Each^Rfl: 0 iv contrast (will be provided with radiology test)^CT Chest W -Inject, intravenously, once for 1 dose.No IV access, insert saline lock prior to the beginning of sedation, infusion, injection of imaging exam. Discontinue saline lock post exam. If Pt. has a central line or IVAD, may access for administration according to line specific nursing protocol. Once exam is complete flush line and de-access according to line specific nursing protocol in the CT contrast administration guidelines link.^Disp: 1 Each^Rfl: 0 triamcinolone (KENALOG) 0.1 % lotion^Apply to affected area twice daily.^Disp: 60 mL^Rfl: 2 ytclfexamnRIMUX-ixcfov-drumgcrnz (BMX 1:1:1) 1:1:1 liqd^Take 10 mL by mouth every 4 hours as needed.^Disp: 300 mL^Rfl: 5 ramipril (ALTACE) 10 mg capsule^Take 1 capsule by mouth once daily.^Disp: 90 capsule^Rfl: 1 atorvastatin (LIPITOR) 10 mg tablet^Take 1 tablet by mouth once daily.^Disp: 90 tablet^Rfl: 1 docusate sodium (COLACE ORAL)^Take 1 tablet by mouth once daily as needed.^Disp: ^Rfl: promethazine (PHENERGAN) 25 mg tablet^Take 1 tablet by mouth every 6 hours as needed. FOR NAUSEA^Disp: 30 tablet^Rfl: 2 Surgical Lubricant Jelly gel^For MRI Female Pelvis, MRI department to provide. Administer intra-vaginal Surgilube immediately prior the MRI procedure (total amount to patient toleranace).^Disp: 5 g^Rfl: 0 INTERVAL HISTORY: Savana Patel reports that she feels well. She presents today with her . She reports no new sxs since last visit, she sometimes uses Colace, otherwise moving her bowels regularly. Patient's finger neuropathy continues, struggles to open bottles and turn pages. She has noticed finger and toenail darkness. She reports she is scheduled on 07/07/23 for a colonoscopy. PHYSICAL EXAM: VITALS: BP 108/54 Pulse 63 Temp 37.2 C (98.9 F) Ht 162.6 cm (5' 4) Wt 59.4 kg (130 lb 14.4 oz) SpO2 98% BMI 22.47 kg/m GENERAL: Patient is a well developed, well nourished, no acute distress. Presenting with her . SKIN: Color, texture, turgor normal. No rashes or lesions. Dark fingernails. HEENT: Normocephalic, atraumatic, mucus membranes moist, and no lesions. NECK: Supple, no adenopathy; thyroid symmetric, normal size, no bruits LUNGS: Respirations unlabored. Chest clear. HEART: Regular rate and rhythm. No murmer. No JVD. Port in place. ABDOMEN: Nontender. No palpable masses. No hernia felt. No ascites apparent. PELVIC: Deferred. PSYCHIATRIC: Alert, cooperative. Normal affect. Normal behavior. LYMPH NODES: No palpable enlarged nodes in neck. NEURO: Normal sensory. Motor intact and symmetric. Gait normal. LOWER EXTREMITIES: Not tender. No ulcers or swelling. Veneer Sander for exam: Elizabeth Corbin MS, scribe RESULTS: CA 125 (U/mL) Date Value 05/07/2023 13 04/09/2023 11 03/12/2023 11 02/12/2023 11 01/14/2023 10 12/07/2022 10 11/23/2022 11 10/30/2022 11 10/09/2022 12 09/18/2022 15 08/28/2022 30 08/04/2022 181 07/20/2022 483 06/18/2022 125 04/13/2022 14 03/23/2022 12 02/24/2022 10 01/19/2022 10 12/23/2021 10 11/24/2021 11 10/27/2021 11 09/29/2021 10 09/01/2021 9 07/07/2021 8 06/09/2021 9 05/12/2021 8 04/14/2021 8 02/19/2021 9 12/09/2020 9 10/23/2020 9 09/27/2020 8 08/23/2020 8 07/26/2020 8 06/28/2020 8 03/28/2020 8 02/01/2020 8 01/01/2020 8 10/20/2019 8 09/22/2019 7 08/25/2019 8 07/28/2019 8 07/20/2019 8 07/14/2019 9 07/07/2019 8 06/20/2019 9 03/27/2019 7 09/12/2018 1,153 05/27/2023 CT CHEST Comparison: CT chest 03/04/2023 RESULT: Limitations: None. Lines, tubes, and devices: Unchanged position of a right-sided MediPort. Lung parenchyma and airways: No consolidation. No suspicious pulmonary nodule. The central airways are patent. Pleural space: No pleural effusion. No pleural thickening. Lower neck, lymph nodes, and mediastinum: The imaged thyroid gland is normal. No lymphadenopathy in the supraclavicular, axillary, mediastinal, or hilar regions. Heart, pericardium, and thoracic vessels: The thoracic aorta and main pulmonary artery are normal in caliber. The cardiac chambers are normal in size. No coronary artery atherosclerotic calcifications are noted, although the study is not optimized for coronary assessment. No pericardial effusion or thickening. Bones and soft tissues: No destructive bone lesion. Degenerative disease of the thoracic spine. Postoperative changes from a left mastectomy and axillary lymph node dissection. Upper abdomen: CT abdomen and pelvis is dictated separately. Tunnel Heading Inspector (topogram) images: No additional findings. IMPRESSION: No suspicious pulmonary nodules. No thoracic lymphadenopathy. 06/02/2023 CT ABD/PEL COMPARISON: 06/01/2023 CT abdomen/pelvis outside study, 05/27/2023 CT abdomen/pelvis. RESULT: Liver: No mass. Biliary: No bile duct dilation. Gallbladder is unremarkable. Spleen: No mass. No splenomegaly. Pancreas: No mass or duct dilation. Adrenals: No mass. Kidneys: Subcentimeter lesions that are too small to characterize but likely benign. No calculus or hydronephrosis. GI tract: NG/OG tube terminating in the distal stomach. Gas and fluid filled dilated cecum with mild wall thickening/edema and measuring up to approximately 10 cm, improved compared to 06/01/2023. Additionally, the low-lying cecum now appears similar in configuration compared to prior CTs dating back to at least 10/01/2022, indicating interval improvement of trauma cecal volvulus seen on the CT 06/01/2023. Irregular soft tissue implant involves the ascending colon, as detailed below. Lymph nodes: No abdominal or pelvic lymphadenopathy. Mesentery/Peritoneum: Mesenteric edema. Stable irregular soft tissue density lesion in the right pelvis measuring 2.4 x 2.2 cm (3:91) involving the ascending colon, compatible with an implant. This has increased in size from 11/23/2022. Questionable implants also appear to be present in the cul-de-sac (3:121). Retroperitoneum: No mass. Vasculature: - Abdominal aorta and iliac arteries: Atherosclerotic calcifications without aneurysm. - Celiac and SMA: Patent without stenosis. - Portal venous system (SMV, splenic vein, portal vein and branches): Patent. - Hepatic veins: Patent. Pelvis: Trace pelvic ascites and questionable new implants in the cul-de-sac, as mentioned above. No focal fluid collection. Hysterectomy and bilateral salpingo-oophorectomy. Bones/Soft Tissues: Degenerative changes. Lower thorax: Bibasilar atelectasis Tunnel Heading Inspector (topogram) images: No additional findings. 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 Questionable new small implants may be present in the pelvis, which can be further investigated with MRI of the pelvis, FDG PET/CT, or reassessed on short-term follow-up imaging. 06/03/2023 CMP Component Ref Range & Units 4 wk ago (06/03/23) 4 wk ago (06/03/23) 4 wk ago (06/02/23) 1 mo ago (05/07/23) 2 mo ago (04/09/23) 3 mo ago (03/12/23) 3 mo ago (03/04/23) Protein, Total 6.3 - 8.0 g/dL 5.9 Low 6.6 7.2 6.6 7.2 7.2 Albumin 3.9 - 4.9 g/dL 3.6 Low 3.7 Low 4.4 4.3 4.3 4.1 Calcium, Total 8.5 - 10.2 mg/dL 8.8 9.4 9.5 9.7 9.3 9.5 9.3 Bilirubin, Total 0.2 - 1.3 mg/dL 0.6 0.8 0.4 0.4 0.3 0.5 Alkaline Phosphatase 34 - 123 U/L 91 110 75 70 70 74 AST 13 - 35 U/L 25 22 21 21 21 18 ALT 7 - 38 U/L 57 High 72 High 20 17 19 17 Glucose 74 - 99 mg/dL 96 67 Low CM 90 CM 97 CM 99 CM 99 CM 85 CM Comment: The [place] [employer] (ADA) provides guidance for cutoff values for fasting glucose and random glucose. The ADA defines fasting as no caloric intake for at least 8 hours. Fasting plasma glucose results between 100 to 125 mg/dL indicate increased risk for diabetes (prediabetes). Fasting plasma glucose results greater than or equal to 126 mg/dL meet the criteria for diagnosis of diabetes. In the absence of unequivocal hyperglycemia, results should be confirmed by repeat testing. In a patient with classic symptoms of hyperglycemia or hyperglycemic crisis, random plasma glucose results greater than or equal to 200 mg/dL meet the criteria for diagnosis of diabetes. Reference: Standards of Medical Care in Diabetes 2016, [place] [employer]. Diabetes Care. 2016.39(Suppl 1). BUN 7 - 21 mg/dL 19 27 High 29 High 28 High 23 High 26 High 21 Creatinine 0.58 - 0.96 mg/dL 0.72 0.94 0.90 0.83 0.79 0.78 0.76 Sodium 136 - 144 mmol/L 141 139 139 138 135 Low 139 135 Low Potassium 3.7 - 5.1 mmol/L 3.8 3.9 4.1 4.2 4.3 4.4 4.6 Chloride 97 - 105 mmol/L 107 High 104 105 102 103 103 101 CO2 22 - 30 mmol/L 24 24 26 27 23 26 23 Anion Gap 9 - 18 mmol/L 10 11 8 Low 9 9 10 11 Estimated Glomerular Filtration Rate >=60 mL/min/1.73m 88 64 CM 67 CM 74 CM 79 CM 80 CM 83 CM 06/03/2023 Magnesium Component Ref Range & Units 4 wk ago (06/03/23) 4 wk ago (06/02/23) 1 mo ago (05/07/23) 2 mo ago (04/09/23) 3 mo ago (03/12/23) 4 mo ago (02/12/23) 5 mo ago (01/14/23) Magnesium 1.7 - 2.3 mg/dL 2.0 2.1 2.1 2.1 2.1 2.2 2.0 06/04/2023 CBC Component Ref Range & Units 3 wk ago (06/04/23) 4 wk ago (06/03/23) 4 wk ago (06/03/23) 4 wk ago (06/02/23) 1 mo ago (05/10/23) 1 mo ago (05/07/23) 2 mo ago (04/09/23) WBC 3.70 - 11.00 k/uL 2.73 Low 3.05 Low 3.75 3.43 Low 4.60 2.88 Low 3.52 Low RBC 3.90 - 5.20 m/uL 3.36 Low 3.06 Low 3.62 Low 3.62 Low 3.76 Low 3.73 Low 3.68 Low Hemoglobin 11.5 - 15.5 g/dL 9.1 Low 8.5 Low 10.0 Low 9.9 Low 10.4 Low 10.3 Low 10.0 Low Hematocrit 36.0 - 46.0 % 29.4 Low 26.9 Low 31.7 Low 31.5 Low 32.5 Low 32.2 Low 31.8 Low MCV 80.0 - 100.0 fL 87.5 87.9 87.6 87.0 86.4 86.3 86.4 MCH 26.0 - 34.0 pg 27.1 27.8 27.6 27.3 27.7 27.6 27.2 MCHC 30.5 - 36.0 g/dL 31.0 31.6 31.5 31.4 32.0 32.0 31.4 RDW-CV 11.5 - 15.0 % 15.2 High 15.3 High 15.6 High 15.7 High 15.6 High 15.5 High 16.7 High Platelet Count 150 - 400 k/uL 118 Low 118 Low 127 Low 146 Low 128 Low 134 Low 140 Low MPV 9.0 - 12.7 fL 10.2 10.3 10.5 10.5 9.4 10.2 10.0 Absolute nRBC <0.01 k/uL <0.01 <0.01 <0.01 <0.01 <0.01 <0.01 <0.01 ASSESSMENT & PLAN: 09/10/2020 - Dr. 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 Interval testing since last visit discussed, CA125 reviewed and within normal limits. Patient is up-to-date with health maintenance including mammogram, colonoscopy and advanced directives. Reviewed issues of survivorship including sexual health after cancer treatment, mental health and support systems. Importance of cancer surveillance and early detection of recurrence reinforced. 10/28/2020- Heather Lutz NP (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 Advised her value is stable. Last CT scan was in March 2020. Will order CT of the chest abdomen and pelvis for reevaluation while on PARPi therapy. Patient would like to establish with Dr. Cote, will move her appointment with me from 12/[address] Dawson on 12/[address] scans the week before. Continue monthly labs while on PARPi therapy Patient verbalized an understanding and agreed with the plan. Instructed to call if she has any questions or concerns. 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 Patient expressed concern about receiving the COVID vaccine while taking Olaparib. I advised the patient to continue with the COVID vaccine and discussed findings that supported my recommendation with her. Patient is receptive to recommendation. I answered all of the patient's and patient's 's questions and addressed their concerns. Plan to RTC in March [address] before and in June 2021. Continue with monthly CBC, and CA 125 prior to office visit with me in [place]. Patient verbalized an understanding and agreed with the plan. 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 I reviewed the most recent CT results with the patient which showed no acute pathology, no suspicious pulmonary nodules, no thoracic lymphadenopathy in the chest, and no acute pathology, and no mass or lymphadenopathy in the abdomen and pelvis. Ms. Patel received the 2nd COVID vaccine in January, and reports experiencing hot flashes since that time. I believe that this might be due to the Lynparza. Ms. Patel also complains of leg cramps that onset at night. I recommend taking multivitamins daily, as well as eating a diet rich in Potassium. Ms. Patel will continue taking Lynparza until the last day in May. Plan to RTC on June 25, [address], CBC, and CA [address] results show no new evidence of disease, we will discuss stopping her PARP. We will discuss the cancer surveillance timeline at the next visit. 07/04/2021 Stop lynparza. Ok to stop protonix in 2-3 weeks after stopping lynparza. I recommend leaving port for one year. Discuss in one year. Discussed no scans needed unless concerning s/s of recurrence. CA 125 prior to each office visit. 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 Discussed she may have some improvement but hard to say at this point. Recommend KN95 with omicron variant. Discussed covid testing guidelines. Follow up in 3 months 10/01/2021 Impression: History of Ovarian Cancer, most recently had completed Olaparib . CA 125 is 10, stable, but she is worried because it has increased by 1 point. Discussed the significance of small changes in CA 125 and anxiety which often accompany's this. Plan: CA 125 and clinical examination in December. Vulvar dryness and itching. Will prescribe Lotrisone cream. Said she had this in past and it helped her. She will call office if symptoms of itching, and dryness don't resolve in the next couple of weeks. 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 CA 125 is stable. Some bladder symptoms at times. Intermittent. Discussed pelvic floor PT. Will trial melatonin for insomnia and some assistance with constipation. BMD ordered for osteopenia screening. 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 No clinical evidence of disease. She has been off her PARP for approximately 9 months. Repeat CA 125 in 3 months. If CA 125 value is >15, (the roberto value,) will check CT scan as well. Reviewed signs and symptoms of recurrence and told to call with persisting concerns. Follow up in clinic in June for continued surveillance. 04/22/2022 She is feeling a bit better. I reviewed the recent labs she had. Nothing actionable. No clinical evidence of diverticulitis or UTI. She has had a flu shot. I advise getting the covid bivalent booster. CA 125 again in June a couple days before she sees me. She is in agreement with these plans. 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 Recently her CA 125 has jumped from 14 (04/13/22) to 125 (06/18/22). PLAN CT Chest & Abd/Pel to be done in [place] early next week. Contact clinic if CT is scheduled for later than Wednesday to reschedule virtual visit. Follow up Wednesday07/01/22 to review results of CT scan and discuss her care plan. 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 Would be considered [place] sensitive. Cancer appears to be involving distal ileum, and possibly sigmoid colon and right psoas. There may be sub-centimeter lesions elsewhere in the abdominal cavity. These findings were reviewed in detail with . Options for management include secondary debulking, possibly with HIPEC, followed with chemotherapy vs chemotherapy alone. To better assess whether secondary debulking would be appropriate, a pelvic MRI will be checked with focus on the possible involvement of the psoas muscle and surrounding blood vessels. If secondary debulking not advised, a CT guided biopsy of the recurrence will be considered as this sample can be sent for somatic tumor testing which can guide future treatment decisions. PLAN Review her case at the next Decontamination Technician/Onc Tumor Conference. MRI to be done in [place], aim for later this week. Follow up Wednesday07/08/22 to review Tumor Board discussion and MRI results. We will confirm the care plan at this time. 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 Her case was discussed in Tumor Board on 07/07/22. 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 If Bevacizumab is started, beginning with cycle number 3 of chemotherapy, consider single agent Bevacizumab following several cycles of carboplatin, Paclitaxel, and Bevacizumab Side effects of treatment plan reviewed, questions answered to patient's satisfaction. She is agreeable with this plan. Symptoms concerning for worsening disease reviewed. Instructed to contact this clinic if she has any questions. PLAN She wishes to receive her chemotherapy in [place] with Dr.Paul Eve DO. A copy of this note will be forwarded to him today. I will reach out to to fascilitate an appointment [phone] Follow up with me at the [facility] 2 weeks after her second cycle of chemotherapy, with a CT prior to that appointment. Will decide if Bevacizumab should be added at this time. 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 She is s/p cycle two of chemotherapy with Carboplatin and Paclitaxel. No unexpected toxicity. Improvement of disease burden on CT Discussed potential addition of Bevacizumab to current chemotherapy plan. Given indication of persistent tethering of cancer to right colon on CT, Bevacizumab is not iadvised at this time. PLAN Continue chemotherapy with carbo/taxol under 's supervision. Repeat CT after cycle 6, will place order for this. Follow up in this office after cycle 6, to review the CT and discuss maintenance therapy options. 08/31/22 Telephone Call with Corinne Santana RN Spoke with pt who reports that she was given chemo today at [place] [facility] and was accidentally given michael along with her carbo/taxol which she was not supposed to receive per her OV with Eve on 08/28. Pt is still very anxious r/t the error and is calling to be certain the [facility] is aware of the situation. Pt is questioning whether she should expect her bowel to perforate due to this mistake. Explained that this is a known but relatively rare side effect. There is no certainty it will or will not happen. Reviewed S&S of acute abd that would require immediate medical attention. Ensured that pt has on-call employee relations consultant phone number. Pt states she was also given the on-call onc number at [facility]. Also explained that the med error will be reported and go through the proper channels to ensure proper review. Pt remains anxious and requests to speak directly to Rocael. Pt was offered a televisit on 09/02 at 0900 which she accepted. The appt will be scheduled. Pt is appreciative of conversation and information discussed. 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 She is s/p cycle three of chemotherapy with Carboplatin and Paclitaxel. Bevacizumab was given with cycle 3, which was not planned based on CT findings). Presently no concerning symptoms related to bevacizmab administration. Explained that bevacizumab is an approriate agent in her type of cancer, and though not planned to have been given, holding this agent prior to last cycle of chemotherapy was a judgement call. We reviewed serious but uncommon side effect of bowel perforation or peritonitis. Reviewed other side effects of bevacizumab. Reviewed alternative names of bevacizumab including the version she received, Zirabev. Addressed her anxiety surrounding the unplanned dose of bevacizumb given. PLAN Repeat CT after cycle 4 of chemotherapy (taxol and carboplatin) Will readdress potential role for bevacizumab in treatment upon review of future scans Follow up as planned in the office to discuss scans & care plan. 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 Most recent CT imaging showing stable disease burden. 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 Discussed option of continuing with current therapy with understanding that future chemotherapy will not likely result in significant reduction in tumor burden, but stable disease for some time is possible, though with high chance of worsening chemotherapy associated toxicity.. Other treatment options discussed included chemo holiday vs clinical trial vs potential surgery. PLAN Will aim to present ' case at Tumor Board at next available presentation. Follow up via telephone visit to discuss Tumor Board's recommendations & determine her care plan. Ok to go for eye exam Order placed for urine culture to be completed at [place] [facility]. Signs and symptoms of worsening disease reviewed. Contact this office with any questions or concerns prior to that appointment. 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 Chemo toxicity reported; grade 2 neuropathy in hands, fatigue also reported. Post-treatment CT imaging showed stable disease burden, CA 125 stable. Discussed results of Decontamination Technician/Onc Tumor Board. Recommendation is continued chemotherapy with Doxil, single agent, 40 mg/m2 IV every 4 weeks. No growth factor with cycle 1, reassess need for growth factor pending marrow toxicity. Benefits, risks, side effects, and treatment schedule of Doxil discussed. Total number of cycles required cannot be determined at this time, plan for at least 6. Questions answered to patient's satisfaction. PLAN She wishes to receive her chemotherapy under the direction of ; a copy of this note will be shared with him. CT scans to be repeated following 3 treatments. Return to clinic following cycle 3 to review her imaging results and discuss her treatment. Contact this office with any questions or concerns prior to then. 03/09/2023 Recurrent fallopian tube carcinoma. Germline BRCA2 mutation. Last [place] based regimen completed October 2022. Presently on doxil. Dose reduced to 30 mg/m2 for cycle 3 due to PPE. Following 3 cycles of treatment, disease remains stable. She is tolerateing Doxil better than carbo and taxol. Manageable PPE and mucocitis of the mouth. PLAN Repeat CT scan prior to cycle #7 at current dose of Doxil. I provided information regarding chilling of her hands the day before, of and after Doxil treatment. She is also using medicated mouthwash to prevent mouth sores. Regarding perineum advised her to apply Vaseline and may also use small amount of steroid ointment if Vaseline is not sufficient. I will see her in May to review CT scan prior to receiving cycle of treatment. 07/02/2023 Recurrent fallopian tube carcinoma. Germline BRCA2 mutation. Recent cecal volvulus. Last k[place] based regimen completed October 2022. Last chemo with doxil was several weeks ago. CBC ok for treatment. Patient scheduled for a laparotomy, removal of right colon, possible ileostomy, removal of other areas of cancer seen in the abdomen and pelvis on 07/14/2023. Consent signed in clinic today. EKG earlier today normal. Briefly reviewed pre-operative instructions and post-operative restrictions. Instructed to stop PO intake on the 23rd after midnight. Informed patient she will receive further details during pre-op visit with a nurse and by anesthesiology. Answered patient's questions. Documentation from my notes of previous visit of 03/09/2023 was copied and pasted, documentation has been reviewed and edited as necessary and is current for today. ATTESTATION Scribe Attestation: By signing my name below, I, Elizabeth Corbin, attest that this documentation has been prepared under the direction and in the presence of Fang Cote MD. Electronically Signed: Chasity Stephens. July 02, 2023 9:44 AM. Provider Attestation: I, Dr. Fang Cote, personally performed the services described in this documentation. All medical record entries made by the scribe were at my direction and in my presence. I have reviewed the chart and discharge instructions (if applicable) and agree that the record reflects my personal performance and is accurate and complete. Electronically Signed: Fang Cote MD. July 11, 2023 11:18 PM documented in this encounter [facility] 06-04-2023 Miscellaneous Notes Appointment canceled as directed Images from the original note were not included. Received a secure chat that patient will be discharged soon. Please cancel chemotherapy on 06/07. Thank you. Doreen Jerome RN documented in this encounter 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23 Discharge summary Author Cristofer Rodriguez [facility] June 01, 2023 9:15pm Note Date/Time June 01, 2023 6:11pm [facility] Medical Records Department [address] [place] [id number] Emergency Department Summary 06/01/23 MR#: [id number] Acct: [id number] Name: SAVANA PATEL Rep #:[id number] : [id number] 73 From: Cristofer Rodriguez MD PCP: Dr. Shay Cardoza MD Status:REG ER Location: ED HPI History of Present Illness Chief Complaint: General Illness Narrative Narrative: Patient presents with nausea vomiting and some epigastric discomfort. This patient does have a history of metastatic ovarian cancer. He was diagnosedand surgery done about 4 years ago. She was on chemotherapy and then maintenance therapy. When the maintenance was stopped the cancer came back about a year later. She has now been on chemotherapy again and the last was about 3 weeks ago. She has not had a history of nausea and vomiting with chemo. She was feeling well until about 11:00 this afternoon. She ate some lunch. She then vomited. Initially it was some food since then she has vomited about 4more times it has just been liquid. No blood. No diarrhea. She has some epigastric discomfort with this. She had an episode of this about a week or so ago but it was only 1 episode. Her and her also state that she occasionally gets things like this where she will get epigastric discomfort which she describes as indigestion she will vomit once and then symptoms go away. The difference is that she has vomited multiple times with this. She hasnot had any fever and that something that they check and watch for. She has no chest pain or trouble breathing. She has no urinary symptoms. No back or flankpain. No history of pancreatitis.. Patient has had total hysterectomy but has not had appendectomy or cholecystectomy by history. [facility] Medical History Breast cancer Ovarian cancer Home Medications atorvastatin 10 mg tablet 10 mg PO DAILY 06/01/23 [History Last Taken Unknown] ramipril 10 mg capsule 10 mg PO DAILY 06/01/23 [History Last Taken Unknown] Allergy/AdvReac Type Severity Reaction Status Date / Time Penicillins Allergy Mild Hives Verified 06/01/23 16:43 Sulfa (Sulfonamide Allergy Mild Hives Verified 06/01/23 16:43 Antibiotics) Family History Mother Cancer Father Rheumatoid arthritis Surgical History H/O mastectomy History of radical hysterectomy Social History household members: spouse housing: house Smoking Status: Never smoker ROS ROS ED ROS Narrative A complete review of systems was performed and is negative except as documented in the history of present illness. Some specific details below. Constitutional: No recent fevers or chills. She does not overall feel ill. EYE: No visual complaints or pain. ENT: No difficulty swallowing. No swelling. No pain. She is not having GERD symptoms. CV: No chest pain or palpitations. Respiratory: No dyspnea. No hemoptysis. No difficulty taking breaths. GI: Please see history of present illness. : No frequency dysuria or hematuria. Musculoskeletal: No recent trauma. No pains. Skin: No rash. Nondiaphoretic. Neuro: No weakness or numbness. Endocrine: No polyuria or polydipsia. EXAM Physical Exam Narrative Exam Narrative: CONSTITUTIONAL: Patient is nontoxic in appearance. The patient looks comfortable. HEENT: No notable trauma. Mucous membranes are minimally dry. No thrush. EYES: No conjunctival injection. No proptosis. No icterus. CARDIOVASCULAR: Regular rate. Regular rhythm. No notable murmur. No JVD. RESPIRATORY: No respiratory distress. Breathing is unlabored. No wheezes. No rhonchi. No rales. No pain with a deep breath. GASTROINTESTINAL: Question just mildly distended. Bowel sounds are normal. Verymild epigastric tenderness. Little bit of tenderness in the lower abdomen and possible fullness but she states it hurts a little bit more pressing in the upper abdomen. No guarding. No rebound. No palpable mass. No bruit. GENITOURINARY: No tenderness over the bladder. No CVA tenderness. MUSCULOSKELETAL: Atraumatic. No peripheral edema. No cord. No tenderness along the deep venous system. No asymmetry. NEUROLOGICAL: Patient is alert and appropriate. No focal deficit noted. SKIN: No noted rashes. No diaphoresis. PSYCHIATRIC: Patient is calm. Mood is appropriate. Const Vital Signs: 06/01/23 16:40 06/01/23 17:03 06/01/23 20:51 Temperature 97.3 F L Temperature Source Temporal Pulse Rate 58 L 75 Respiratory Rate 16 16 Respiratory Pattern Normal Blood Pressure 101/60 Blood Pressure Mean 73 Pulse Ox 100 97 Oxygen Delivery Method Room Air Room Air MDM MDM MDM Narrative Medical decision making narrative: My independent interpretation CT of her abdomen shows distended stomach and whatlooks to be volvulus. This is consistent with final read. Patient has NG placed. She is given Zosyn. Since his CBC shows mildly low white count hemoglobin but normal platelets. Electrolytes show slight high BUN and creatinine. She is given IV fluids here. Glucose is minimally up at 120. Liver function test showed just slight elevations of ALT and alkaline phosphatas. lipase is normal. Urinalysis shows no sign of infection. Our surgeon came down talk with the patient. Patient would prefer to go to [facility] where her surgeons and care have been. I was able to talkto Dr. Rivera on for colorectal surgeon who is excepted the patient. We did discuss the need to somewhat expedite this. Otherwise if we cannot get her up there soon we may have to do surgery here. I went to call them again and we hadjust gotten a bed for the patient. We are checking to see how long and transport will be. New My independent interpretation of the patient's x-ray done after NG tube shows good placement and final reading is similar. Lab Data Attestation: I reviewed the patient's lab results. Labs: Laboratory Results - last 24 hr 06/01/23 06/01/23 17:43 19:04 WBC 4.2 L RBC 3.91 L Hgb 10.6 L Hct 34.2 L MCV 87.5 MCH 27.1 MCHC 31.0 L RDW Std Deviation 49.9 H RDW Coeff of Corky 15.6 H Plt Count 150 MPV 10.2 Immature Gran % (Auto) 0.500 Neut % (Auto) 74.4 H Lymph % (Auto) 12.7 L [place] % (Auto) 12.2 H Eos % (Auto) 0.0 Baso % (Auto) 0.2 Absolute Neuts (auto) 3.1 Absolute Lymphs (auto) 0.53 L Nucleated RBC % 0 Differential Comment SEE COMMENT Diff Path Review May foll Platelet Estimate ADEQUATE RBC Morphology N CHROM Anisocytosis RARE Ovalocytes RARE Sodium 137 Potassium 4.3 Chloride 107 Carbon Dioxide 23.0 Anion Gap 7 BUN 37 H Creatinine 1.08 H Estim Creat Clear Calc 39.46 Est GFR (MDRD) Af Amer 64 Est GFR (MDRD) Non-Af 53 L BUN/Creatinine Ratio 34.3 H Glucose 120 H Calcium 9.6 Total Bilirubin 0.60 AST 33 ALT 166 H Alkaline Phosphatase 135 H Total Protein 7.9 Albumin 3.9 Globulin 4.0 Albumin/Globulin Ratio 1.0 Lipase 30 Urine Color Yellow Urine Clarity Sl. Cloudy Urine pH 5.0 Ur Specific [place] 1.020 Urine Protein 30 H Urine Glucose (UA) Normal Urine Ketones 50 H Urine Occult Blood Negative Urine Nitrite Negative Urine Bilirubin 1 H Urine Urobilinogen Normal Ur Leukocyte Esterase 25 H Urine RBC 0 SEEN Urine WBC 0-5 SEEN Ur Squamous Epith Cells 0 SEEN Urine Bacteria 0 SEEN Hyaline Casts 10-25 SEEN Urine Mucus 0 SEEN Radiography Diagnostic Testing: Clinical Impression(s) from Imaging Studies Abdomen/Pelvis CT 06/01/23 18:30 IMPRESSION: Cecal volvulus. Surgical consultation recommended. Electronically Signed: Jaime Wolfe MD at 19:13 EST , ADDENDUM: 06/01/231951 IMPRESSION: Cecal volvulus. Surgical consultation recommended. N.B. : The above Results were Read Back by Jaime Wolfe MD to Cristofer Rodriguez MD, and understanding confirmed on 06/01/2023 19:45:42 (ET). Electronically Signed: Jaime Wolfe MD at 19:13 EST , KUB X-Ray 06/01/23 20:23 IMPRESSION: Enteric tube in the stomach. Electronically Signed: Jaime Wolfe MD at 20:52 EST , Discharge Plan Triage Chief Complaint: General Illness ED Provider: Cristofer Rodriguez Dx/Rx/DC Orders Clinical Impression: Cecal volvulus, Hx of ovarian cancer, Nausea & vomiting Prescriptions: No Action ramipril 10 mg capsule 10 mg PO DAILY atorvastatin 10 mg tablet 10 mg PO DAILY Primary Care Provider: Shay Cardoza Referrals: Shay Cardoza MD [Primary Care Provider] - Disposition Disposition: Acute Care Hospital Discharge Location: [facility] What to do if you have Problems For any increased pain, shortness of breath, bleeding, nausea or vomiting, chestpain, or any unexpected problems, contact your Primary Care Provider. Call [facility] ([phone]) or report to the closest Emergency Room. Call 911 if necessary. 06/01/232114 <Electronically signed by Cristofer Rodriguez MD> Cosigner Signature (if applicable): CC: Dr. Shay Cardoza MD ~ Signed [facility] Work Phone: 1(946) 756-323612-12-2023 Consult note Author Saqib Maradiaga [facility] June 01, 2023 8:18pm Note Date/Time June 01, 2023 8:18pm [facility] Medical Records Department [address] [place] [id number] Consultation - Surgical 06/01/232013 MR#: [id number] Acct: [id number] Name: SAVANA PATEL Rep #:[id number] : 1950 73 From: Saqib smith MD PCP: Dr. Shay Cardoza MD Status:REG ER Location: ED Assessment & Plan Assessment/Plan (1) Cecal volvulus: PLAN: I saw and examined the patient. CT scan revealed a cecal volvulus. The patient has very complicated as she is currently undergoing chemotherapy for recurrent ovarian cancer. She was told she will be on chemotherapy the rest of her life. The patient does have a distended stomach on CT scan and they are placing an NG tube and starting antibiotics. I am attempting to transfer her back to [facility] where she has the rest of her care. She would be a difficult surgery especially if there were adhesions to the pelvis. I also explained that I would unlikely reconnect her as she is actively getting chemotherapy and she may require an ileostomy bag. I also explained that she would be at increased risk of wound complication and infection due to her immunosuppression. Patient is requesting transfer to [facility] and I concur. I will try to arrange for ER to ER transfer but I did explain that she would have to have surgical removal of this area. Patient understands and all questions were answered. If transfer is not able to be donein a timely fashion I would have to take her for exploratory laparotomy with right hemicolectomy here. I explained that I would likely place retention sutures and perform ileostomy due to her immunosuppression. Saqib Maradiaga MD Pager: [facility] [address] [place] [address], [address] [place] [address] Office: HPI Consult Data Date of Consult: 06/01/23 HPI Narrative HPI Narrative: SAVANA PATEL, is a 73 F who presents with right lower quadrant pain. Patient started vomiting this morning and has had several episodes of vomiting. The patient's pain is reported on the right side. The patient is currently undergoing chemotherapy for recurrent ovarian cancer. Her last treatment was 3 weeks ago. She sees her oncologist on and her surgeon on Wednesday of this week at [facility]. [facility] Medical History Breast cancer Ovarian cancer Home Medications atorvastatin 10 mg tablet 10 mg PO DAILY 06/01/23 [History Last Taken Unknown] ramipril 10 mg capsule 10 mg PO DAILY 06/01/23 [History Last Taken Unknown] Allergy/AdvReac Type Severity Reaction Status Date / Time Penicillins Allergy Mild Hives Verified 06/01/23 16:43 Sulfa (Sulfonamide Allergy Mild Hives Verified 06/01/23 16:43 Antibiotics) Family History Mother Cancer Father Rheumatoid arthritis Surgical History H/O mastectomy History of radical hysterectomy Social History household members: spouse housing: house Smoking Status: Never smoker ROS Constitutional Constitutional: Reports anorexia; Denies chills or fatigue Eyes Eyes: Denies change in vision ENT HEENT: Denies abnormal hearing Cardiovascular Cardiovascular: Denies chest pain Respiratory/Chest Respiratory/Chest: Denies cough or dyspnea Gastrointestinal Gastrointestinal: Reports abdominal pain, nausea and vomiting; Denies coffee ground emesis or rectal bleeding Genitourinary Genitourinary: Denies change in urinary stream Musculoskeletal Musculoskeletal: Denies abnormal gait Integumentary Integumentary: Denies new lesions Neurologic Neurologic: Denies abnormal gait Psychiatric Psychiatric: Denies anxiety Endocrine Endocrinology: Denies heat intolerance Physical Exam Const alert and oriented x3 HEENT normocephalic Eyes PERRL Lymph Lymphatic: no lymphadenopathy noted Resp normal respiratory effort Cardio Rate: regular rate Rhythm: regular rhythm GI soft to palpation Inspection: abdominal distention Palpation: tender RLQ and RUQ Extremity normal to inspection Lab / Micro Data 06/01/23 17:43 06/01/23 17:43 Labs: Laboratory Results - last 24 hr 06/01/23 17:43: WBC 4.2 L, RBC 3.91 L, Hgb 10.6 L, Hct 34.2 L, MCV 87.5, MCH 27.1, MCHC 31.0 L, RDW Std Deviation 49.9 H, RDW Coeff of Corky 15.6 H, Plt Count 150, MPV 10.2, Immature Gran % (Auto) 0.500, Neut % (Auto) 74.4 H, Lymph % (Auto) 12.7 L, [place] % (Auto) 12.2 H, Eos % (Auto) 0.0, Baso % (Auto) 0.2, Absolute Neuts (auto) 3.1, Absolute Lymphs (auto) 0.53 L, Nucleated RBC % 0, Differential Comment SEE COMMENT, Diff Path Review October, Platelet Estimate ADEQUATE, RBC Morphology N CHROM, Anisocytosis RARE, Ovalocytes RARE, Sodium 137, Potassium 4.3, Chloride 107, Carbon Dioxide 23.0, Anion Gap 7, BUN 37 H, Creatinine 1.08 H, Estim Creat Clear Calc 39.46, Est GFR (MDRD) Af Amer 64, Est GFR (MDRD) Non-Af 53 L, BUN/Creatinine Ratio 34.3 H, Glucose 120 H, Calcium 9.6,Total Bilirubin 0.60, AST 33, ALT 166 H, Alkaline Phosphatase 135 H, Total Protein 7.9, Albumin 3.9, Globulin 4.0, Albumin/Globulin Ratio 1.0, Lipase 30 06/01/23 19:04: Urine Color Yellow, Urine Clarity Sl. Cloudy, Urine pH 5.0, Ur Specific [place] 1.020, Urine Protein 30 H, Urine Glucose (UA) Normal, Urine Ketones 50 H, Urine Occult Blood Negative, Urine Nitrite Negative, Urine Bilirubin 1 H, Urine Urobilinogen Normal, Ur Leukocyte Esterase 25 H, Urine RBC 0 SEEN, Urine WBC 0-5 SEEN, Ur Squamous Epith Cells 0 SEEN, Urine Bacteria 0 SEEN, Hyaline Casts 10-25 SEEN, Urine Mucus 0 SEEN Imagaing Radiology Impression Abdomen/Pelvis CT 06/01/23 18:30 IMPRESSION: Cecal volvulus. Surgical consultation recommended. Electronically Signed: Jaime Wolfe MD at 19:13 EST Reading Location ID and State: [facility] / ID Tel , Service support , ADDENDUM: 06/01/231951 IMPRESSION: Cecal volvulus. Surgical consultation recommended. N.B. : The above Results were Read Back by Jaime Wolfe MD to Cristofer Rodriguez MD, and understanding confirmed on 06/01/2023 19:45:42 (ET). Electronically Signed: Jaime Wolfe MD at 19:13 EST , 06/01/232017 <Electronically signed by Saqib Maradiaga MD> Cosigner Signature (if applicable): CC: Dr. Shay Cardoza MD~ Signed [facility] Work Phone: [phone]) 905-225512-12-2023 Miscellaneous Notes* Telephone Encounter - Doreen Jerome RN - 06/01/2023 4:01 PM EST Patient called stating around 11 am she developed constant 6-7/10 dull aching pain at the top ofmy stomach, right where my bra would be. Patient thought it was indigestion but stated this feels different. Patient has had 4 episodes of emesis which the first episode contained food but the last 3 have been pure water. Patient stated she has been sweating constantly since the pain/vomiting started. stated patient looks pale and is clammy. Patients temperature is 98.1 F, BP while on the phone was 91/56 pulse 56. Patient denies fever, chills, SOB, chest pain/pressure, back pain, neck pain, arm pain, and no recent bouts of constipation. Patients last BM was this morning around 7 amand it was tiny. Patient stated it was a normal BM for her. Patient denies lower abdominal pain/bloating/distention. Patient stated she got the COVID booster on 05/19/23 and within 24 hours had fevers and shaking. A week later she had an episode of emesis and then has been fine since. Patient was advised to go to the ED for further evaluation. Patient stated understanding. Dr. Cruz notified and agreed. Doreen Jerome RN documented in this [facility]12-07-2023 History of Present illness Narrative* Rita Braden RT(R) - 05/27/2023 9:00 AM EST Radiology Service Progress Note PATIENT NAME: Savana Patel DATE OF SERVICE: May 27, 2023 TIME: 3:51 PM PATIENT IDENTITY VERIFICATION COMPLETED USING TWO (2) IDENTIFIERS: Name and Date of confirmedby patient verbally. FALL SCREENING: Has the patient had 2 falls in the last year or 1 fall with injury or currently using an Ambulatory Assistive Device (Walker, Cane, Wheelchair, Crutches, etc.)? No PATIENT GENDER DATA: Female. status: : No status: NO. PATIENT RELEVANT IMPLANT DATA REVIEWED: Yes RADIOLOGY DEPARTMENT: CT; Exam(s) Completed: Chest Abdomen Pelvis PERIPHERAL IV DATA: power port accessed by Xierkang SIGNED BY: RT Laurie(R) May 27, 2023 3:51 PM documented in this [facility]11-22-2023 History of Present illness Narrative* Js Cruz DO - 05/12/2023 6:22 AM EST No OV was made. Js Cruz DO documented in this [facility]11-21-2023 Miscellaneous Notes* Result Encounter Note - Js Cruz DO - 05/11/2023 5:14 PM EST Echocardiogram reveals normal heart pumping function. No valvular abnormalities. 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 Initially underwent pelvic ultrasound on 09/01/2018. Uterus appeared normal. The endometrial stripe was 2.3 mm. Right and left ovaries appeared normal. However there was a large amount of free fluid in the pelvic cul-de-sac. CT A/P 09/08/2018: Liver: No mass. Homogeneous texture. Biliary: No ductal dilatation is seen. Gallbladder is unremarkable. Spleen: Spleen is unremarkable. Pancreas: No mass or duct dilation. Adrenals: Adrenal glands are unremarkable. Kidneys: No mass, calculus or hydronephrosis is seen. GI tract: No bowel dilatation is seen. No evidence of obstruction. Lymph nodes: No evidence of adenopathy. Mesentery/Peritoneum: There is increased soft tissue density best seen in the coronal views extending from the lower abdomen into the pelvic area. This could represent peritoneal involvement with tumor. This is seen on coronal image 37 and axial images 99 through 122. It extends across the anterior aspect of the pelvic area seen on axial image 124. Vasculature: No evidence of dilatation of the abdominal aorta. CT PELVIS: Pelvis: There is a large amount of free fluid or loculated fluid in the pelvis suggesting that there could be an enhancing rim surrounding this fluid is seen on image 127 and measures 10.6 x 6.1 cm. Bones/Soft Tissues: No significant findings identified. Lower thorax: Unremarkable. CA125 was 1153 U/mL. Had employee relations consultant onc evaluation and CT chest unremarkable. Underwent exploratory laparotomy, optimal tumor bulking, total abdominal hysterectomy, bilateral salpingo-oophorectomy, resection of bladder cul-de-sac and pelvic peritoneal disease along with resection of omental caking with super colic omentectomy on 10/06/2018. Pathology: FINAL DIAGNOSIS 1. 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 2. 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 3. Uterus, cervix, bilateral ovaries and fallopian tubes, and bladder/pelvic peritoneum, hysterectomy and excision (C) Left fallopian tube - High grade serous carcinoma (see comment and synoptic report). Right fallopian tube - Positive for involvement by high grade serous carcinoma. Bilateral ovaries - Positive for involvement by high grade serous carcinoma. Uterine serosa - Positive for involvement by high grade serous carcinoma. Bladder/pelvic peritoneum - Positive for involvement by high grade serous carcinoma. Endometrium - Inactive endometrium. Myometrium - Negative for malignancy. Cervix - Negative for malignancy. SYNOPTIC REPORT OF BRAUN PATHOLOGIC FINDINGS UTERUS, CERVIX, BILATERAL TUBES AND OVARIES, BLADDER, AND PELVIC PERITONEUM: Procedure: Total hysterectomy and bilateral salpingo-oophorectomy Omentectomy Peritoneal biopsies Specimen Integrity: Left fallopian tube serosa intact Primary Tumor Site: Left fallopian tube Ovarian Surface Involvement: Present Specify laterality (if applicable): Bilateral Fallopian Tube Surface Involvement: Present Specify laterality (if applicable): Bilateral Tumor Size: Greatest dimension: 1.6 cm Histologic Type: Serous carcinoma Histologic Grade: Not applicable Two-tier grading System: High grade Implants: Not applicable/not sampled Involvement of other tissues/organs: Right ovary Left ovary Right fallopian tube Pelvic peritoneum Omentum Other organs/tissues (specify): Uterine serosa Largest extrapelvic peritoneal focus, macroscopic (greater than 2 cm) Peritoneal Ascitic Fluid, Not submitted/unknown Treatment Effect: No known presurgical therapy Regional Lymph Nodes: No nodes submitted or found Pathologic Stage Classification (pTNM, AJCC 8th ed) TNM Descriptors: Not applicable Primary Tumor (pT): pT3c: Macroscopic peritoneal metastasis beyond pelvis more than 2 cm in greatest dimension with or without metastasis to the retroperitoneal lymph nodes (includes extension to capsule of liver and spleen without parenchymal involvement of either organ) Regional Lymph Nodes (pN): pNX: Cannot be assessed Distant Metastasis (pM): Not applicable/Not confirmed pathologically in this case Previous therapy: 1) 11/11/2018 - 02/03/2019: PACLITAXEL 80 D1,8,15 CARBOPLATIN 6 D1 - Q21D s/p 4 cycles. *neutropenia/thrombocytopenia causing treatment delay. Neulasta OnPro added; switch to Q21D dosing of Taxol with cycles 5 & 6 02/23/2019 - 03/17/2019: PACLITAXEL 135 D1 CARBOPLATIN 6 D1 - Q21D s/p 2 cycles. 2) 06/30/2019 - 06/20/2021: olaparib (LYNPARZA) 150 mg tablet; 300 mg BID. CTs 06/29/2022: Mesentery/Peritoneum: * New 0.4 cm anterior mesenteric fat nodule (8:57) * Confluent infiltrative soft tissue in RIGHT false pelvis surrounding the terminal ileum and ascending colon (cecum deep in pelvis) and probably affecting the sigmoid colon; difficult to precisely measure as it envelops bowel but including bowel measures approximately 4.5 x 2.9 cm (8:101); process extends to the RIGHT psoas muscle * Several small subtle anterior mesenteric fat nodules * No free abdominal fluid MRI pelvis 07/02/2022: Similar imaging findings since CT 06/29/2022, redemonstrating pelvic peritoneal/serosal carcinomatosis involving segments of bowel predominantly in the right anterior pelvis, with confluent soft tissue encasing the proximal ascending colon and causing relative upstream dilation of the low-lying cecum suggesting developing colonic obstruction. No small bowel dilation. No pelvic lymphadenopathy. 3) Carboplatin/paclitaxel x6 cycles. Completed 11/02/2022. Stable disease. Recommended to retry carbo/paclitaxel with potential addition michael if disease clears the bowel. Current therapy: 1) Doxil. Presents for ongoing oncologic management. Interim history: No diarrhea this past cycle. Uses a stool softener. Constipation has been manageable. No abdominal pain, bloating or distention. Appetite remains normal. Fingertip numbness stable worse in both hands. Some days can write and some days can't writ well. 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 Toes are same--barely affected. Hands with mild symptoms HFS syndrome. Feet not affected. Has noticed some hearing loss in her left ear. No tinnitus. Occasionally wakes up in the morning and right ear feels full but after swallowing eustachian tube opens and right ear feels normal. No exertional chest pain or pressure. No palpitations or sensation of tachycardia. No lower extremity swelling or edema. PMH, medications and allergies personally reviewed by me today. Any changes documented in appropriate section. ROS: Constitutional: Denies episodes of fever and night sweats. Neuro: Denies MACHADO, vertigo, dizziness and imbalance. HEENT: No recent change in voice, vision or hearing. Resp: Denies cough, wheeze and hemoptysis. Denies shortness of breath at rest. Denies OLIVER. CVS: Denies exertional chest pain, PND, orthopnea and LE edema. GI: Denies dysgeusia. Denies symptoms of stomatitis. : Denies dysuria or gross hematuria. Endo: Denies hot flashes. Denies polyuria and polydipsia. Denies heat and cold intolerance. Musculoskeletal: Denies bone, back, joint and muscular pain. Derm: Denies rash. Denies jaundice and diffuse pruritis. Heme: Denies unusual bleeding and unexplained bruising. Psych: Normal mood. PHYSICAL EXAM: Vitals: Blood pressure 113/66, pulse 74, temperature 36.2 C (97.2 F), temperature source Temporal, weight 61 kg (134 lb 8 oz), SpO2 99 %. Well-appearing and in no acute distress. EYES: Sclerae are anicteric bilaterally. A little bit of wax in each external canal. TMs appear normal. LYMPHATIC: No palpable cervical or supraclavicular adenopathy. RESPIRATORY: Inspiratory breath sounds are of normal intensity in all bernabe. No rales, wheezes or rhonchi. CARDIOVASCULAR: Rhythm is regular. Normal intensity S1/S2. There is no murmur. ABDOMEN: The abdomen is nondistended. Soft and nontender throughout. No mass appreciated. No fluid wave. Extremities: No swelling or edema. SKIN: No jaundice or rash. Very mild erythema of the finger knuckle creases on the palmar surface of the hands. No fissuring. No peeling. 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 No focal motor weakness. LABS: ANC just under 1500. ASSESSMENT/PLAN: (C56.1, C56.2) Malignant neoplasm of both ovaries (HCC) (primary encounter diagnosis) Assessment: -KPS is 90%. -BRCA2 mutation (tested 04/2019). -Baseline CA125 1153 U/mL. -PD following carboplatin and paclitaxel. -PD while on maintenance olaparib. -Now receiving and continuing to tolerate Doxil very well. -Asymptomatic from the cancer. -Discussed and answered her questions. -Reviewed results of CBC. ANC mildly low. Mild thrombocytopenia without any bleeding issue or unexplained bruising. -Sensory neuropathy symptoms stable. -Mild reaction of the skin palmar surfaces of the hands. -New symptom of subjective hearing loss left ear--would not expect this from Doxil. -No symptoms to suggest cardiomyopathy. Plan: -Okay for cycle #6 of Doxil Wednesday if ANC recovered--CBC rechecked prior to chemotherapy. -Monitoring CA125. -Discussed and recommended RSV, Covid vaccinations. Needs updated pneumovax. -Repeat imaging including echocardiogram prior to cycle #7. -Trial of Cymbalta and keep fingers warm. -Referral to ENT for hearing evaluation. Portions of this documentation were copied and pasted from previous office visit notes in order to provide a cohesive continuity of the history. The note has been reviewed and edited and updated as necessary. I spent a total of 25 minutes on the date of the service which included preparing to see the patient, [id number] patient care, completing clinical documentation, obtaining and/or reviewing separately obtained history, performing a medically appropriate examination, counseling and educating the pat ient/family/caregiver, ordering medications, tests, or procedures, communicating with other HCPs (not separately reported), and communicating results to the patient/family/caregiver. Js Cruz DO [facility] Miscellaneous Notes* Telephone Encounter - Corinne Mantilla Ma - 04/13/2023 11:20 AM EDT Patient notified of provider recommendation. Corinne Mantilla Ma * Telephone Encounter - Shay Cardoza MD - 04/13/2023 10:47 AM EDT I can not say that having either is a contraindication of getting the vaccine on that side. Howeverif concerned I would suggest getting it in the butt. * Telephone Encounter - Jayla Carrillo RN - 04/13/2023 9:40 AM EDT Patient calls and states that she has port in right arm and had a mastectomy on left side. Patient asking which arm can she get flu shot? Please review and advise, Jayla Carrillo RN documented [facility] History of Present illness Narrative* Latoya Nathan RN - 04/12/2023 8:35 AM EDT No changes to assessment from OV 04/09/23. Latoya Nathan RN documented [facility] this 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 Initially underwent pelvic ultrasound on 09/01/2018. Uterus appeared normal. The endometrial stripe was 2.3 mm. Right and left ovaries appeared normal. However there was a large amount of free fluid in the pelvic cul-de-sac. CT A/P 09/08/2018: Liver: No mass. Homogeneous texture. Biliary: No ductal dilatation is seen. Gallbladder is unremarkable. Spleen: Spleen is unremarkable. Pancreas: No mass or duct dilation. Adrenals: Adrenal glands are unremarkable. Kidneys: No mass, calculus or hydronephrosis is seen. GI tract: No bowel dilatation is seen. No evidence of obstruction. Lymph nodes: No evidence of adenopathy. Mesentery/Peritoneum: There is increased soft tissue density best seen in the coronal views extending from the lower abdomen into the pelvic area. This could represent peritoneal involvement with tumor. This is seen on coronal image 37 and axial images 99 through 122. It extends across the anterior aspect of the pelvic area seen on axial image 124. Vasculature: No evidence of dilatation of the abdominal aorta. CT PELVIS: Pelvis: There is a large amount of free fluid or loculated fluid in the pelvis suggesting that there could be an enhancing rim surrounding this fluid is seen on image 127 and measures 10.6 x 6.1 cm. Bones/Soft Tissues: No significant findings identified. Lower thorax: Unremarkable. CA125 was 1153 U/mL. Had employee relations consultant onc evaluation and CT chest unremarkable. Underwent exploratory laparotomy, optimal tumor bulking, total abdominal hysterectomy, bilateral salpingo-oophorectomy, resection of bladder cul-de-sac and pelvic peritoneal disease along with resection of omental caking with super colic omentectomy on 10/06/2018. Pathology: FINAL DIAGNOSIS 1. 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 2. 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 3. Uterus, cervix, bilateral ovaries and fallopian tubes, and bladder/pelvic peritoneum, hysterectomy and excision (C) Left fallopian tube - High grade serous carcinoma (see comment and synoptic report). Right fallopian tube - Positive for involvement by high grade serous carcinoma. Bilateral ovaries - Positive for involvement by high grade serous carcinoma. Uterine serosa - Positive for involvement by high grade serous carcinoma. Bladder/pelvic peritoneum - Positive for involvement by high grade serous carcinoma. Endometrium - Inactive endometrium. Myometrium - Negative for malignancy. Cervix - Negative for malignancy. SYNOPTIC REPORT OF BRAUN PATHOLOGIC FINDINGS UTERUS, CERVIX, BILATERAL TUBES AND OVARIES, BLADDER, AND PELVIC PERITONEUM: Procedure: Total hysterectomy and bilateral salpingo-oophorectomy Omentectomy Peritoneal biopsies Specimen Integrity: Left fallopian tube serosa intact Primary Tumor Site: Left fallopian tube Ovarian Surface Involvement: Present Specify laterality (if applicable): Bilateral Fallopian Tube Surface Involvement: Present Specify laterality (if applicable): Bilateral Tumor Size: Greatest dimension: 1.6 cm Histologic Type: Serous carcinoma Histologic Grade: Not applicable Two-tier grading System: High grade Implants: Not applicable/not sampled Involvement of other tissues/organs: Right ovary Left ovary Right fallopian tube Pelvic peritoneum Omentum Other organs/tissues (specify): Uterine serosa Largest extrapelvic peritoneal focus, macroscopic (greater than 2 cm) Peritoneal Ascitic Fluid, Not submitted/unknown Treatment Effect: No known presurgical therapy Regional Lymph Nodes: No nodes submitted or found Pathologic Stage Classification (pTNM, AJCC 8th ed) TNM Descriptors: Not applicable Primary Tumor (pT): pT3c: Macroscopic peritoneal metastasis beyond pelvis more than 2 cm in greatest dimension with or without metastasis to the retroperitoneal lymph nodes (includes extension to capsule of liver and spleen without parenchymal involvement of either organ) Regional Lymph Nodes (pN): pNX: Cannot be assessed Distant Metastasis (pM): Not applicable/Not confirmed pathologically in this case Previous therapy: 1) 11/11/2018 - 02/03/2019: PACLITAXEL 80 D1,8,15 CARBOPLATIN 6 D1 - Q21D s/p 4 cycles. *neutropenia/thrombocytopenia causing treatment delay. Neulasta OnPro added; switch to Q21D dosing of Taxol with cycles 5 & 6 02/23/2019 - 03/17/2019: PACLITAXEL 135 D1 CARBOPLATIN 6 D1 - Q21D s/p 2 cycles. 2) 06/30/2019 - 06/20/2021: olaparib (LYNPARZA) 150 mg tablet; 300 mg BID. CTs 06/29/2022: Mesentery/Peritoneum: * New 0.4 cm anterior mesenteric fat nodule (8:57) * Confluent infiltrative soft tissue in RIGHT false pelvis surrounding the terminal ileum and ascending colon (cecum deep in pelvis) and probably affecting the sigmoid colon; difficult to precisely measure as it envelops bowel but including bowel measures approximately 4.5 x 2.9 cm (8:101); process extends to the RIGHT psoas muscle * Several small subtle anterior mesenteric fat nodules * No free abdominal fluid MRI pelvis 07/02/2022: Similar imaging findings since CT 06/29/2022, redemonstrating pelvic peritoneal/serosal carcinomatosis involving segments of bowel predominantly in the right anterior pelvis, with confluent soft tissue encasing the proximal ascending colon and causing relative upstream dilation of the low-lying cecum suggesting developing colonic obstruction. No small bowel dilation. No pelvic lymphadenopathy. 3) Carboplatin/paclitaxel x6 cycles. Completed 11/02/2022. Stable disease. Recommended to retry carbo/paclitaxel with potential addition michael if disease clears the bowel. Current therapy: 1) Doxil. Presents for ongoing oncologic management. Interim history: Tolerating well. No nausea. Bowels moving regularly. Stools formed. Good appetite. Fingertip numbness stable. Toes are same--barely affected. PMH, medications and allergies personally reviewed by me today. Any changes documented in appropriate section. ROS: Constitutional: Denies episodes of fever and night sweats. Neuro: Denies MACHADO, vertigo, dizziness and imbalance. HEENT: No recent change in voice, vision or hearing. Resp: Denies cough, wheeze and hemoptysis. Denies shortness of breath at rest. Denies OLIVER. CVS: Denies exertional chest pain, PND, orthopnea and LE edema. GI: Denies dysgeusia. Denies symptoms of stomatitis. : Denies dysuria or gross hematuria. Endo: Denies hot flashes. Denies polyuria and polydipsia. Denies heat and cold intolerance. Musculoskeletal: Denies bone, back, joint and muscular pain. Derm: Denies rash. Denies jaundice and diffuse pruritis. Heme: Denies unusual bleeding and unexplained bruising. Psych: Normal mood. PHYSICAL EXAM: Vitals: Blood pressure 103/61, pulse 65, temperature 36.1 C (97 F), weight 61 kg (134 lb 8 oz), SpO2 99 %. Well-appearing and in no acute distress. EYES: Sclerae are anicteric bilaterally. LYMPHATIC: No palpable cervical or supraclavicular adenopathy. RESPIRATORY: Inspiratory breath sounds are of normal intensity in all bernabe. No rales, wheezes or rhonchi. CARDIOVASCULAR: Rhythm is regular. Normal intensity S1/S2. There is no murmur. ABDOMEN: The abdomen is nondistended. Soft and nontender throughout. No mass appreciated. No fluid wave. Extremities: No swelling or edema. SKIN: No jaundice or rash. 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 No focal motor weakness. LABS: Component Latest Ref Rng & Units 03/12/2023 WBC 3.70 - 11.00 k/uL 4.37 RBC 3.90 - 5.20 m/uL 3.88 (L) Hemoglobin 11.5 - 15.5 g/dL 10.5 (L) Hematocrit 36.0 - 46.0 % 32.5 (L) MCV 80.0 - 100.0 fL 83.8 MCH 26.0 - 34.0 pg 27.1 MCHC 30.5 - 36.0 g/dL 32.3 RDW-CV 11.5 - 15.0 % 17.2 (H) Platelet Count 150 - 400 k/uL 154 MPV 9.0 - 12.7 fL 9.8 Neut% % 64.7 Abs Neut (ANC) 1.45 - 7.50 k/uL 2.83 Lymph% % 22.9 Abs Lymph 1.00 - 4.00 k/uL 1.00 [place]% % 10.5 Abs [place] <0.87 k/uL 0.46 Eosin% % 0.7 Abs Eosin <0.46 k/uL 0.03 Baso% % 0.7 Abs Baso <0.11 k/uL 0.03 Immature Gran % % 0.5 IMMATURE GRANS (ABS) <0.10 k/uL <0.03 NRBC /100 WBC 0.0 Absolute nRBC <0.01 k/uL <0.01 DTYPE Auto ASSESSMENT/PLAN: (C56.1, C56.2) Malignant neoplasm of both ovaries (HCC) (primary encounter diagnosis) Assessment: -KPS is 90%. -BRCA2 mutation (tested 04/2019). -Baseline CA125 1153 U/mL. -PD following carboplatin and paclitaxel. -Now receiving and continuing to tolerate Doxil very well. -Asymptomatic from the cancer. -Discussed and answered her questions. -Reviewed results of CBC. -Sensory neuropathy symptoms stable. -Reviewed CTs. SD. -Dr. Cote recommended CTs prior to cycle #7. Plan: -Okay for cycle #4 of Doxil Wednesday. -Monitoring CA125. -Repeat imaging including echocardiogram after cycle #6. Portions of this documentation were copied and pasted from previous office visit notes in order to provide a cohesive continuity of the history. The note has been reviewed and edited and updated as necessary. I spent a total of 20 minutes on the date of the service which included preparing to see the patient, [id number] patient care, completing clinical documentation, obtaining and/or reviewing separately obtained history, performing a medically appropriate examination, counseling and educating the pat ient/family/caregiver, ordering medications, tests, or procedures, communicating with other HCPs (not separately reported), and communicating results to the patient/family/caregiver. Js Cruz DO documented in this encounterSt. [facility]09-15-2023 Miscellaneous Notes* Telephone Encounter - Maggy Cottrell Ma - 03/05/2023 9:52 AM EDT [facility] [employer] [facility] sent to pt notifying her of labs below from Provider. Maggy Cottrell Ma * Telephone Encounter - Shay Cardoza MD - 03/04/2023 11:17 PM EDT Let patient know A1c is only slightly elevated at 5.7% (normal is 4.3%-5.6% and she was 5.9%) cont to work on reduced sugars in diet. Her electrolyte panel and lipid panel were ok. documented in this encounterSt. Anthony'[facility]09-14-2023 History of Present illness Narrative* Rita Braden RT(R) - 03/04/2023 9:20 AM EDT Radiology Service Progress Note PATIENT NAME: Savana Patel DATE OF SERVICE: March 04, 2023 TIME: 4:11 PM PATIENT IDENTITY VERIFICATION COMPLETED USING TWO (2) IDENTIFIERS: Name and Date of confirmedby patient verbally. FALL SCREENING: Has the patient had 2 falls in the last year or 1 fall with injury or currently using an Ambulatory Assistive Device (Walker, Cane, Wheelchair, Crutches, etc.)? No PATIENT GENDER DATA: Female. status: : No status: NO. PATIENT RELEVANT IMPLANT DATA REVIEWED: Yes RADIOLOGY DEPARTMENT: CT; Exam(s) Completed: Chest Abdomen Pelvis PERIPHERAL IV DATA: power port accessed by Xierkang SIGNED BY: RT Laurie(R) March 04, 2023 4:11 PM documented in this encounterSt. Anthony'S [facility]09-13-2023 Miscellaneous Notes* Telephone Encounter - Doreen eJrome RN - 03/03/2023 1:58 PM EDT DIARRHEA When did it start? Yesterday, looser stool. This morning it was just like water. How many stools (BM's) in the last 24 hours? 3 today, 1 loose stool yesterday AM Are stools loose or watery? watery Any blood with the stool? no Do you have any abdominal cramping? no If yes, is the cramping before or after you have a stool? no Do you have any abdominal bloating? If I do its very very little. My jeelin are still fitting 1/10 sore pain RLQ What medication have you taken? She has not tried anything. Has Pepto-bismol on hand. Discussed taking imodium instead of Pepto and discussed instructions for use. Are you taking the medication regularly? No How much liquid per day are you drinking? 2 bottles of water today- 16.9 ounces What type of liquid are you drinking? Water What have you eaten today? Yes, this AM cream of wheat, 2 pieces of toast. 12:00 pm, ham, baked potato, cottage cheese, peanuts, and chocolate chips. Are you currently receiving chemotherapy or radiation? yes When was your last treatment? Are you taking any oral chemotherapy? no Other systems? Denies fever, chills, N/V, cold/respiratory symptoms, bloating, cramping, or sick contacts. Patient was instructed to start imodium. Discussed BRAT diet, importance of hydration, and calling tomorrow to cancel/reschedule CT if the diarrhea continues overnight. Patient stated understanding. Disposition: per RNCC, patient directed to: Manage at home. Provided instructions and will call back. Doreen Jerome RN * Telephone Encounter - Corina Quiñonez - 03/03/2023 1:01 PM EDT Patient calling stating she has watery diarrhea that started this morning.Patient is scheduled for CT tomorrow>Patient asking if she should keep appointment and what can she take for this. Please advise and call patient. documented in this encounterSt. [facility]09-07-2023 Miscellaneous Notes* Telephone Encounter - Ashley Howell LPN - 02/25/2023 9:52 AM EDT Patient returned call and went over notes below from Dr Cardoza with understanding. * Telephone Encounter - Meme Moreno RN - 02/25/2023 8:49 AM EDT Called and left a voicemail for the Patient to call back and ask for a nurse to receive the providers message. Meme Moreno RN * Telephone Encounter - Shay Cardoza MD - 02/24/2023 7:46 PM EDT Let patient know I heard back from Dr. Cruz and he agrees she should get the shingrix vaccine froma local pharmacy. documented in this encounterSt. [facility]09-06-2023 History of Present illness Narrative* Shay Cardoza MD - 02/24/2023 8:40 AM EDT Chief Complaint Patient presents with: F/U 6 months HPI Savana Patel is a 72 year old female who presents here today for 6 month follow up. Office visit - 6 month follow up 02/24/2023 Patient is here for here 6 month follow up. Patient with Hx of HTN, Impaired fasting blood sugar, hyperlipidemia, ovarian Ca with mets to the omentum, YESIKA with panic attacks, anemia as well as those reviewed and addressed below and in ROS Patient currently being treated with chemo once every 3 weeks related to her ovarian cancer. Has had some side affects but over all doing ok. Patient currently sees Dr. Cruz in oncology/hematology/[facility] for this treatment of her cancer and anemia. Last medicare visit recommended Calcium intake with supplements or by diet of 1000 mg/day for under 50, 1200- 1500 mg/day for 50+ Patient also on ramipril for her essential hypertension, which has been in good control. Patient also taking atorvastatin for her mixed hyperlipidemia, which has been under good control. We had encouraged at last visit to follow low fat/cholesterol diet with increased exercise. Patient also has GERD without esophagitis but has been able to controlled with diet. Impaired fasting glucose -has been stable. Currently getting steroids with her chemo so her A1c is slightly elevated. [facility]. Last exam 12/05/2022 show no diabetic neuropathy. Patient history of Panic attacks -- stable not needing changes. Primary insomnia - ICD9: 307.42, ICD10: F51.01 - stable at this time no changes. Past medical history, appointments, medications, allergies reviewed. Previous Medical History PAST MEDICAL HISTORY Diagnosis Date Actinic keratosis 04/12/2007 Advance directive discussed with patient 08/24/2022 Discussed 08/2022: Up to date DEANDRE positive 07/25/2016 Rheum felt just Arthritis. Arthritis of knee, right 06/16/2012 BRCA2 positive 05/02/2019 [id number] ([id number]) BREAST CANCER UPPER OUTER(Left, DCIS) 11/01/2007 Diagnosed 10/2007 Carcinomatosis (HCC) 10/06/2018 Chemotherapy-induced neuropathy (HCC) 07/13/2019 [place] ANGIOMA///NEVUS, NON-NEOPLASTIC 02/18/2007 Constipation 04/04/2015 Dysmetabolic syndrome X 12/28/2007 Essential hypertension 04/04/2015 GERD without esophagitis 07/24/2020 Hemorrhage of gastrointestinal tract, unspecified History of left mastectomy 05/05/2018 Impaired fasting glucose 11/21/2007 Internal hemorrhoids without mention of complication Leg cramps 01/08/[address] 07/31/2021 DPA is Living will on file 07/31/2021 DPA: Javier ( ) Malignant neoplasm of both ovaries (HCC) 10/26/2018 Mixed hyperlipidemia 04/04/2015 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 multiple joints 07/27/2016 Osteopenia 12/28/2012 Other acne 05/29/2008 Other seborrheic keratosis 02/18/2007 Panic attacks 07/18/2012 Primary insomnia 01/29/2022 SOLAR LENGINES///DYSCHROMIA OTHER 02/18/2007 Thrombocytopenia (HCC) 01/29/2022 chronic Trigger ring finger of left hand 07/24/2020 Trigger ring finger of right hand 07/24/2020 Previous Surgical History PAST SURGICAL HISTORY Procedure Laterality Date BX BREAST PERC VACUUM/ROTN 10/26/07 LEFT COLONOSCOPY FLX DX W/COLLJ SPEC WHEN PFRMD 07/20/05 COLONOSCOPY FLX DX W/COLLJ SPEC WHEN PFRMD 05/01/16 normal - 10 year follow up LIG/TRNSXJ FLP TUBE ABDL/VAG APPR UNI/BI Tubal ligation MAST RAD W/PECTORAL MUSCLES AXILLARY LYMPH NODES 11/26 Left PAST SURGICAL HISTORY OF BACK SURGERY PAST SURGICAL HISTORY OF 10/06/2018 Exploratory laparotomy, total abdominal hysterectomy, bilateral salpingooophorectomy, and bladder and posterior culdesac peritoneum resected en bloc, omentectomy PLCMT LOCALZTN CLIP,PERC,DURING BREAST BX 10/26/07 LEFT S PORT-A-CATH [id number] 11/09/2018 TONSILLECTOMY PRIMARY/SECONDARY <AGE 12 Tonsillectomy Family History FAMILY HISTORY Problem Relation Age of Onset Ovarian cancer Mother dx 50s Arthritis Father Cancer Maternal Aunt 7 aunts with breast or ovarian cancer. details unknown Patient Allergies ALLERGIES Allergen Reactions Penicillins Rash Sulfa (Sulfonamide * Unknown Current Medications Current Outpatient Medications on File Prior to Visit Medication Sig triamcinolone (KENALOG) 0.1 % lotion Apply to affected area twice daily. tapiqyyoeaKOFHF-zdjgeo-bqnigbqdz (BMX 1:1:1) 1:1:1 liqd Take 10 mL by mouth every 4 hours as needed. ramipril (ALTACE) 10 mg capsule Take 1 capsule by mouth once daily. atorvastatin (LIPITOR) 10 mg tablet Take 1 tablet by mouth once daily. docusate sodium (COLACE ORAL) Take 1 tablet by mouth once daily. HYDROcodone-acetaminophen (NORCO) 5-325 mg per tablet Take 1-2 tablets by mouth every 6 hours as needed for pain. promethazine (PHENERGAN) 25 mg tablet Take 1 tablet by mouth every 6 hours as needed. FOR NAUSEA heparin 100 unit/mL injection NURSING USE ONLY: USE FOR IMPLANTED VASCULAR ACCESS DEVICE (IVAD) FLUSH. AMBULATORY/OUTPATIENT: PLEASE REORDER UPON HOSPITAL DISCHARGE May access implanted vascular access device (IVAD) as needed for treatment. Before de-accessing port, flush with 10-20ml normal saline and follow with 5 mL heparin (100 units/mL) (if no heparin allergy). De-access port on treatment completion. Surgical Lubricant Jelly gel For MRI Female Pelvis, MRI department to provide. Administer intra-vaginal Surgilube immediately prior the MRI procedure (total amount to patient toleranace). Current Facility-Administered Medications on File Prior to Visit Medication perflutren lipid microspheres 1.3 mL in NaCl (PF) 0.9% 10 mL injection (DEFINITY) sodium chloride 0.9 % (flush) 10 mL (BD POSIFLUSH) perflutren lipid microspheres 1.3 mL in NaCl (PF) 0.9% 10 mL injection (DEFINITY) sodium chloride 0.9 % (flush) 10 mL (BD POSIFLUSH) Social History Social History Tobacco Use Smoking status: Never Smokeless tobacco: Never Vaping Use Vaping Use: Never used Substance Use Topics Alcohol use: No Drug use: No Review of Symptoms REVIEW OF SYSTEMS GENERAL: No weight loss, malaise or fevers NECK: Negative for lumps, goiter, pain and significant neck swelling RESPIRATORY: Negative for cough, hemoptysis, wheezing, COPD, dyspnea or shortness of breath CARDIOVASCULAR: Negative for chest pain, leg swelling, hypertension, CHF or palpitations GI: No vomiting, or diarrhea and No heartburn or reflux symptoms. Taking antiemetic meds prn. PSYCH: Negative for sleep disturbance, mood disorder and recent psychosocial stressors. Some days alittle down but most of the time doing ok. ENDOCRINE: Negative for cold or heat intolerance, polyuria, polydipsia and goiter Neuro: has slight increase in the neuropathy in her fee and hands. No headache's seizures, syncope,tremors. EXAM: BP 114/64 (BP Site: Right Arm, BP Position: Sitting, BP Cuff Size: Regular Adult) Pulse 64 Resp16 Wt 59.9 kg (132 lb) BMI 22.66 kg/m Last 5 Encounter Wt Readings: Date: Wt: 02/24/2023 59.9 kg (132 lb) 02/12/2023 60.6 kg (133 lb 8 oz) 02/12/2023 60.6 kg (133 lb 8 oz) 01/14/2023 60.3 kg (133 lb) 12/11/2022 60.6 kg (133 lb 8 oz) General Appearance: Well appearing, alert, in no acute distress, well-hydrated, well nourished. andThin. Neck: Supple, no adenopathy; thyroid symmetric, normal size, no bruits. Lungs: Lungs clear to auscultation. No wheezing, rhonchi, rales.. Heart: RRR without murmur, gallop, or rubs. No ectopy. Abdomen: Normal abdominal exam, Abdomen soft, non-tender. Bowel sounds normal. No masses, organomegaly. Extremities: No deformities, edema, skin discoloration, Good capillary refill. . Peripheral Pulses: Normal. Health Maintenance List COVID-19 VACCINE(5 - Pfizer risk series) due on 08/26/2022 DTAP,TDAP,TD(2 - Td or Tdap) due on 08/25/2023 SHINGRIX VACCINE(1 of 2) due on 08/25/2023 MAMMOGRAM due on 08/29/2023 ANNUAL PCP TEAM CHRONIC DISEASE VISIT due on 11/14/2023 BP CONTROLLED (<130/80) due on 02/13/2024 DIABETES SCREEN due on 02/12/2026 COLORECTAL CANCER SCREENING due on 05/01/2026 LIPID SCREEN due on 08/04/2027 BONE DENSITY Completed ADVANCE DIRECTIVE DISCUSSION Completed DEPRESSION ASSESSMENT Completed HEPATITIS C SCREENING Completed PNEUMOCOCCAL: 65+ Completed HPV VACCINE Aged Out INFLUENZA Discontinued Data reviewed Component Latest Ref Rng & Units 01/14/2023 02/12/2023 WBC 3.70 - 11.00 k/uL 3.75 3.60 (L) RBC 3.90 - 5.20 m/uL 3.89 (L) 3.94 Hemoglobin 11.5 - 15.5 g/dL 10.4 (L) 10.5 (L) Hematocrit 36.0 - 46.0 % 33.2 (L) 32.9 (L) MCV 80.0 - 100.0 fL 85.3 83.5 MCH 26.0 - 34.0 pg 26.7 26.6 MCHC 30.5 - 36.0 g/dL 31.3 31.9 RDW-CV 11.5 - 15.0 % 15.0 16.0 (H) Platelet Count 150 - 400 k/uL 179 142 (L) MPV 9.0 - 12.7 fL 9.3 9.3 Neut% % 41.9 51.6 Abs Neut (ANC) 1.45 - 7.50 k/uL 1.57 1.86 Lymph% % 41.9 30.6 Abs Lymph 1.00 - 4.00 k/uL 1.57 1.10 [place]% % 14.9 15.8 Abs [place] <0.87 k/uL 0.56 0.57 Eosin% % 0.3 0.6 Abs Eosin <0.46 k/uL <0.03 <0.03 Baso% % 0.5 0.8 Abs Baso <0.11 k/uL <0.03 0.03 Immature Gran % % 0.5 0.6 IMMATURE GRANS (ABS) <0.10 k/uL <0.03 <0.03 NRBC /100 WBC 0.0 0.0 Absolute nRBC <0.01 k/uL <0.01 <0.01 DTYPE Auto Auto Protein, Total 6.3 - 8.0 g/dL 7.7 7.6 Albumin 3.9 - 4.9 g/dL 4.5 4.6 Calcium 8.5 - 10.2 mg/dL 9.7 10.1 Bilirubin, Total 0.2 - 1.3 mg/dL 0.3 0.4 Alkaline Phosphatase 34 - 123 U/L 77 66 AST 13 - 35 U/L 19 21 ALT 7 - 38 U/L 15 18 Glucose 74 - 99 mg/dL 115 (H) 101 (H) BUN 7 - 21 mg/dL 28 (H) 29 (H) Creatinine 0.58 - 0.96 mg/dL 0.78 0.85 Sodium 136 - 144 mmol/L 136 139 Potassium 3.7 - 5.1 mmol/L 4.5 4.4 Chloride 97 - 105 mmol/L 103 102 CO2 22 - 30 mmol/L 22 26 Anion Gap 9 - 18 mmol/L 11 11 eGFR >=60 mL/min/1.73m 80 72 Magnesium 1.7 - 2.3 mg/dL 2.0 2.2 A/P ASSESSMENT/PLAN: 1. Essential hypertension - ICD9: 401.9, ICD10: I10 (primary diagnosis) - Controlled - Continue current medications - Recommend home blood pressure monitoring, to bring results to next visit - Encouraged sodium restriction, DASH or Mediterranean diet - Recommend regular aerobic exercise 2. Mixed hyperlipidemia - ICD9: 272.2, ICD10: E78.2 Will await lab - Continue current medications - Counseled on healthy diet and regular exercise Check - LIPID PANEL, NONFASTING 3. Impaired fasting glucose - ICD9: 790.21, ICD10: R73.01 Check - HGB A1C 4. GERD without esophagitis - ICD9: 530.81, ICD10: K21.9 - controlled with diet. 5. Panic attacks - ICD9: 300.01, ICD10: F41.0 - stable and feels she does not need any medication at this time. 6. Anemia, unspecified type - ICD9: 285.9, ICD10: D64.9 - stable and management per Heme/Onc 7. Malignant neoplasm of upper-outer quadrant of right breast in female, estrogen receptor positive(HCC) - ICD9: 174.4, V86.0, ICD10: C50.411, Z17.0 - management per Heme/ONC 8. Carcinomatosis (HCC) - ICD9: 199.0, ICD10: C80.0 - management per Heme/ONC 9. 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 Discussed Tx and patient wants to hold off for now. 10. 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 Malignant neoplasm of both ovaries (HCC) - ICD9: 183.0, ICD10: C56.3 - management per Heme/ONC 12. Primary insomnia - ICD9: 307.42, ICD10: F51.01 - stable not needing meds 13. Thrombocytopenia (HCC) - ICD9: 287.5, ICD10: D69.6 - - management per Heme/ONC 14. Osteoarthritis of multiple joints, unspecified osteoarthritis type - ICD9: 715.89, ICD10: M15.9 - stable no changes needed. F/u 6 months extensive. Shay Cardoza MD documented in this encounterSt. [facility]08-17-2023 Miscellaneous Notes* Telephone Encounter - Doreen Jerome RN - 02/04/2023 3:00 PM EDT Patient informed and agreeable to instructions reviewed and will call if she has any worsening symptoms, questions, or concerns. Doreen Jerome RN * Telephone Encounter - Js Cruz DO - 02/04/2023 2:47 PM EDT Agree with management plans as recommended below. Js Cruz DO * Telephone Encounter - Doreen Jerome RN - 02/04/2023 2:03 PM EDT Spoke to patient. Neuropathy: Patient stated she has worsening neuropathy/numbness in her hands and now in her feet/toes since starting doxil. Patient stated she can pick up attendant small objects, button a button, and hold a cup. Patient takes Cymbalta as directed. Mouth sore: Patient stated she still has a sore in the inside of her lower lip and also the lower lip on the outside is now sore and dry. Patient is using BMX PRN, discussed instructions for use. Sheis also using baking soda/salt rinses which seem to help the most. Patient is watching her diet andavoiding citrus/tomato based foods. We discussed using Carmex lip balm. Patient denies sore throat,white coating on her tongue, or other new sores inside of her mouth. HFS?- Patient stated this morning patient has redness and sore hands between the thumb and indexfinger on that skin and from the pinky down to the palm of my hand. Patient denies swelling on her hands, the skin is not warm to touch, and she has no cracking of the skin or blisters. Patient also stated on her left foot on the bunion is red and on the bone outside of the foot on the right side is red. Patient denies pain or swelling on her feet, blisters or cracked skin, and skin is notwarm to touch. Patient is also afebrile and denies chills. Reviewed HFS care and advised patient to lubricate her hands multiple times daily with a heavy lotion. Patient advised that she can take vitamin B6 100 mg daily to help with healing, use a bag of frozen peas or ice pack and alternate every 15 minutes for pain relief, take tylenol PRN, and to avoid friction, submerging hands or feet in hot water, wear gloves when washing dishes, and avoid alcohol or anti-bacterial based soaps or sanitizers. Patient aware this nurse will provide Dr. Cruz with an update and will call her back with further instructions. Doreen Jerome, RN * Telephone Encounter - Lorna Felix - 02/04/2023 8:36 AM EDT Patient called stating neuropathy is worst today after treatment. She states thumb and index fingerred and sore, both hands. Both feet red and sore. Patient requesting to speak to nurse. documented in this encounterSt. Anthony'S Hospital08-08-2023 Miscellaneous Notes* Telephone Encounter - Antonina Angela - 01/26/2023 9:27 AM EDT Patient has been identified by name and date of : Yes Requested Prescriptions Pending Prescriptions Disp Refills ramipril (ALTACE) 10 mg capsule 90 capsule 1 Sig: Take 1 capsule by mouth once daily. atorvastatin (LIPITOR) 10 mg tablet 90 tablet 1 Sig: Take 1 tablet by mouth once daily. RX INSTRUCTIONS: Patient aware RX will be sent to pharmacy. No need to notify patient. Antonina Angela documented in this encounterSt. 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 Initially underwent pelvic ultrasound on 09/01/2018. Uterus appeared normal. The endometrial stripe was 2.3 mm. Right and left ovaries appeared normal. However there was a large amount of free fluid in the pelvic cul-de-sac. CT A/P 09/08/2018: Liver: No mass. Homogeneous texture. Biliary: No ductal dilatation is seen. Gallbladder is unremarkable. Spleen: Spleen is unremarkable. Pancreas: No mass or duct dilation. Adrenals: Adrenal glands are unremarkable. Kidneys: No mass, calculus or hydronephrosis is seen. GI tract: No bowel dilatation is seen. No evidence of obstruction. Lymph nodes: No evidence of adenopathy. Mesentery/Peritoneum: There is increased soft tissue density best seen in the coronal views extending from the lower abdomen into the pelvic area. This could represent peritoneal involvement with tumor. This is seen on coronal image 37 and axial images 99 through 122. It extends across the anterior aspect of the pelvic area seen on axial image 124. Vasculature: No evidence of dilatation of the abdominal aorta. CT PELVIS: Pelvis: There is a large amount of free fluid or loculated fluid in the pelvis suggesting that there could be an enhancing rim surrounding this fluid is seen on image 127 and measures 10.6 x 6.1 cm. Bones/Soft Tissues: No significant findings identified. Lower thorax: Unremarkable. CA125 was 1153 U/mL. Had employee relations consultant onc evaluation and CT chest unremarkable. Underwent exploratory laparotomy, optimal tumor bulking, total abdominal hysterectomy, bilateral salpingo-oophorectomy, resection of bladder cul-de-sac and pelvic peritoneal disease along with resection of omental caking with super colic omentectomy on 10/06/2018. Pathology: FINAL DIAGNOSIS 1. 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 2. 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 3. Uterus, cervix, bilateral ovaries and fallopian tubes, and bladder/pelvic peritoneum, hysterectomy and excision (C) Left fallopian tube - High grade serous carcinoma (see comment and synoptic report). Right fallopian tube - Positive for involvement by high grade serous carcinoma. Bilateral ovaries - Positive for involvement by high grade serous carcinoma. Uterine serosa - Positive for involvement by high grade serous carcinoma. Bladder/pelvic peritoneum - Positive for involvement by high grade serous carcinoma. Endometrium - Inactive endometrium. Myometrium - Negative for malignancy. Cervix - Negative for malignancy. SYNOPTIC REPORT OF BRAUN PATHOLOGIC FINDINGS UTERUS, CERVIX, BILATERAL TUBES AND OVARIES, BLADDER, AND PELVIC PERITONEUM: Procedure: Total hysterectomy and bilateral salpingo-oophorectomy Omentectomy Peritoneal biopsies Specimen Integrity: Left fallopian tube serosa intact Primary Tumor Site: Left fallopian tube Ovarian Surface Involvement: Present Specify laterality (if applicable): Bilateral Fallopian Tube Surface Involvement: Present Specify laterality (if applicable): Bilateral Tumor Size: Greatest dimension: 1.6 cm Histologic Type: Serous carcinoma Histologic Grade: Not applicable Two-tier grading System: High grade Implants: Not applicable/not sampled Involvement of other tissues/organs: Right ovary Left ovary Right fallopian tube Pelvic peritoneum Omentum Other organs/tissues (specify): Uterine serosa Largest extrapelvic peritoneal focus, macroscopic (greater than 2 cm) Peritoneal Ascitic Fluid, Not submitted/unknown Treatment Effect: No known presurgical therapy Regional Lymph Nodes: No nodes submitted or found Pathologic Stage Classification (pTNM, AJCC 8th ed) TNM Descriptors: Not applicable Primary Tumor (pT): pT3c: Macroscopic peritoneal metastasis beyond pelvis more than 2 cm in greatest dimension with or without metastasis to the retroperitoneal lymph nodes (includes extension to capsule of liver and spleen without parenchymal involvement of either organ) Regional Lymph Nodes (pN): pNX: Cannot be assessed Distant Metastasis (pM): Not applicable/Not confirmed pathologically in this case Previous therapy: 1) 11/11/2018 - 02/03/2019: PACLITAXEL 80 D1,8,15 CARBOPLATIN 6 D1 - Q21D s/p 4 cycles. *neutropenia/thrombocytopenia causing treatment delay. Neulasta OnPro added; switch to Q21D dosing of Taxol with cycles 5 & 6 02/23/2019 - 03/17/2019: PACLITAXEL 135 D1 CARBOPLATIN 6 D1 - Q21D s/p 2 cycles. 2) 06/30/2019 - 06/20/2021: olaparib (LYNPARZA) 150 mg tablet; 300 mg BID. CTs 06/29/2022: Mesentery/Peritoneum: * New 0.4 cm anterior mesenteric fat nodule (8:57) * Confluent infiltrative soft tissue in RIGHT false pelvis surrounding the terminal ileum and ascending colon (cecum deep in pelvis) and probably affecting the sigmoid colon; difficult to precisely measure as it envelops bowel but including bowel measures approximately 4.5 x 2.9 cm (8:101); process extends to the RIGHT psoas muscle * Several small subtle anterior mesenteric fat nodules * No free abdominal fluid MRI pelvis 07/02/2022: Similar imaging findings since CT 06/29/2022, redemonstrating pelvic peritoneal/serosal carcinomatosis involving segments of bowel predominantly in the right anterior pelvis, with confluent soft tissue encasing the proximal ascending colon and causing relative upstream dilation of the low-lying cecum suggesting developing colonic obstruction. No small bowel dilation. No pelvic lymphadenopathy. 3) Carboplatin/paclitaxel x6 cycles. Completed 11/02/2022. Stable disease. Recommended to retry carbo/paclitaxel with potential addition michael if disease clears the bowel. Current therapy: 1) Doxil. Presents for ongoing oncologic management. Interim history: Tolerated first cycle of Doxil very well overall. She had several days of fatigue/malaise but no other side effects. She does note that her fingertip numbness is slightly worse. Toes are barely affected. Appetite doing well. No nausea. No abdominal pain, bloating or distention. Regular formed stools. No black or bloody stools. PMH, medications and allergies personally reviewed by me today. Any changes documented in appropriate section. ROS: Constitutional: Denies episodes of fever and night sweats. Neuro: Denies MACHADO, vertigo, dizziness and imbalance. HEENT: No recent change in voice, vision or hearing. Resp: Denies cough, wheeze and hemoptysis. Denies shortness of breath at rest. Denies OLIVER. CVS: Denies exertional chest pain, PND, orthopnea and LE edema. GI: Denies dysgeusia. Denies symptoms of stomatitis. : Denies dysuria or gross hematuria. Endo: Denies hot flashes. Denies polyuria and polydipsia. Denies heat and cold intolerance. Musculoskeletal: Denies bone, back, joint and muscular pain. Derm: Denies rash. Denies jaundice and diffuse pruritis. Heme: Denies unusual bleeding and unexplained bruising. Psych: Normal mood. PHYSICAL EXAM: Vitals: Blood pressure 116/72, pulse 69, temperature 36.2 C (97.2 F), weight 60.3 kg (133 lb), [id number] %. Well-appearing and in no acute distress. EYES: Sclerae are anicteric bilaterally. LYMPHATIC: No palpable cervical or supraclavicular adenopathy. RESPIRATORY: Inspiratory breath sounds are of normal intensity in all bernabe. No rales, wheezes or rhonchi. CARDIOVASCULAR: Rhythm is regular. Normal intensity S1/S2. There is no murmur. ABDOMEN: The abdomen is nondistended. Soft and nontender throughout. No mass appreciated. No fluid wave. Extremities: No swelling or edema. SKIN: No jaundice or rash. 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 No focal motor weakness. LABS: Component Latest Ref Rng & Units 01/14/2023 WBC 3.70 - 11.00 k/uL 3.75 RBC 3.90 - 5.20 m/uL 3.89 (L) Hemoglobin 11.5 - 15.5 g/dL 10.4 (L) Hematocrit 36.0 - 46.0 % 33.2 (L) MCV 80.0 - 100.0 fL 85.3 MCH 26.0 - 34.0 pg 26.7 MCHC 30.5 - 36.0 g/dL 31.3 RDW-CV 11.5 - 15.0 % 15.0 Platelet Count 150 - 400 k/uL 179 MPV 9.0 - 12.7 fL 9.3 Neut% % 41.9 Abs Neut (ANC) 1.45 - 7.50 k/uL 1.57 Lymph% % 41.9 Abs Lymph 1.00 - 4.00 k/uL 1.57 [place]% % 14.9 Abs [place] <0.87 k/uL 0.56 Eosin% % 0.3 Abs Eosin <0.46 k/uL <0.03 Baso% % 0.5 Abs Baso <0.11 k/uL <0.03 Immature Gran % % 0.5 IMMATURE GRANS (ABS) <0.10 k/uL <0.03 NRBC /100 WBC 0.0 Absolute nRBC <0.01 k/uL <0.01 DTYPE Auto Magnesium 1.7 - 2.3 mg/dL 2.0 ASSESSMENT/PLAN: (C56.1, C56.2) Malignant neoplasm of both ovaries (HCC) (primary encounter diagnosis) Assessment: -KPS is 90%. -BRCA2 mutation (tested 04/2019). -Baseline CA125 1153 U/mL. -PD following carboplatin and paclitaxel. -Now receiving and tolerating Doxil very well. -Asymptomatic from the cancer. -Discussed and answered her questions. -Reviewed results of CBC and magnesium. -Sensory neuropathy symptoms could be lag effect from carboplatin. Discussed that if continues to worsen with Doxil, may have to consider changing therapy because she enjoys cooking and other activities that require fine motor control. Plan: -Okay for cycle #2 of Doxil tomorrow. -Monitoring CA125. -Repeat imaging including echocardiogram after cycle 3. Portions of this documentation were copied and pasted from previous office visit notes in order to provide a cohesive continuity of the history. The note has been reviewed and edited and updated as necessary. I spent a total of 25 minutes on the date of the service which included preparing to see the patient, [id number] patient care, completing clinical documentation, obtaining and/or reviewing separately obtained history, performing a medically appropriate examination, counseling and educating the pat ient/family/caregiver, ordering medications, tests, or procedures, communicating with other HCPs (not separately reported), and communicating results to the patient/family/caregiver. Js Cruz DO documented in this encounterSt. Anthony'S Hospital07-19-2023 Miscellaneous Notes* Telephone Encounter - Kristan Hernández LPN - 01/06/2023 2:04 PM EDT Spoke with pt. And she was informed we have people behind the scenes who take care of those issues.Pt. Voiced understanding. Kristan Hernández LPN * Telephone Encounter - Lorna Felix - 01/06/2023 1:39 PM EDT Patient called stating she received a letter from [facility] stating she filed an appeal regarding 08/10 chemo treatment. Patient is asking if this was something done by office. She states her insurance companies always pays her bills. Please advise. documented in this encounterSt. Anthony'S Hospital07-14-2023 Miscellaneous Notes* Telephone Encounter - Vane Ayala - 01/01/2023 11:05 AM EDT Just calling in to make [facility] the only pharmacy listed to prescriptions. Vane Siu documented in this encounterCleveland [id number] Miscellaneous Notes* Telephone Encounter - Danielle Amezquita - 12/21/2022 4:51 PM EDT 1st attempt: MC sent documented in this encounterSt. Anthony'S Hospital06-30-2023 Miscellaneous Notes* Telephone Encounter - Laura Alfonso RN - 12/18/2022 12:53 PM EDT CYCLE 1/DAY 1 POST TREATMENT CALL Today's date: December 18, 2022 Treatment Regimen: Doxil C1D1 Date: 12/17/22 Called patient to follow-up on symptom management. Spoke with patient, I feel pretty good today SYMPTOM ASSESSMENT Neuro: None CV/Resp: None GI/: None Integument: None Activity: Activity Level (0-100%): same as baseline Pain: No=0 (pain 0 on a scale of 0-10). Fever: No Chills: No Any new referrals needed? No Reinforced CURRENT treatment education based on current and anticipated symptoms. Discussed port/line care and patient verbalizes understanding: Not Applicable Patient instructed to contact office or after hours Hematology/Oncology fellow for: temperature ? 100.4; questions or concerns. Patient verbalized understanding of when to seek medical attention and after hours number protocol. Laura Alfonso RN documented in this encounterSt. Anthony'S Hospital06-28-2023 History of Present illness Narrative* Laura Alfonso RN - 12/16/2022 11:57 AM EDT Patient teaching was completed over the phone. Laura Alfonso RN * Laura Alfonso RN - 12/16/2022 11:56 AM EDT Sales Trainer Pre Chemo Patient identified by name and date of . YES Confirmed date and time for chemotherapy ? YES Other appointments (labs, imaging) discussed? YES Discussed where to park (inside barrel polisher), charge for parking YES Discussed where to report (building/floor) YES Any pre-medications ordered? NO Described the infusion room and what to expect. (What to wear, what to bring [iPad, books] amount of time treatment can take, meals and CC options for food) YES Note: na Discussed whether the patient can eat prior to labs and treatment. YES Who is driving you to and from treatment? Spouse Discussed why it is important to bring someone with you. Yes, Resources discussed (music therapy, Art therapy, pet therapy, etc.) NO Education on chemotherapy (drug, side effects) discussed and that the patient will be receiving a C1D1 call within 7 days of treatment. YES Other topics discussed, interventions needed: na Laura Alfonso RN * Laura Alfonso RN - 12/16/2022 11:09 AM EDT ONCOLOGY PATIENT EDUCATION NOTE TOPIC: Chemotherapy, Medications: Doxil READINESS TO LEARN: COGNITIVE ABILITY: Alert and oriented MOTIVATION TO LEARN: Interested FAMILY SUPPORT: High - Very involved in pt care INSTRUCTION PROVIDED TO: Patient INSTRUCTION PROVIDED BY: Nurse Coordinator PATIENT LEARNS BEST BY: Multiple Methods FACTORS AFFECTING LEARNING: None PHYSICAL LIMITATIONS AFFECTING LEARNING: None LEARNING RESPONSE DIAGNOSIS: Fallopian tube cancer METHOD OF INSTRUCTION: Individual instruction Written instruction - handouts Verbal instruction PATIENT/FAMILY RESPONSE: Verbalizes understanding of: CHEMOTHERAPY-Regimen, toxicity and side effects FOLLOW UP PLAN: Recommend - Recommend continued instruction and follow up as directed Contact information given. SUPPLEMENTAL MATERIAL: Written material was provided at this visit with the following information: - Chemotherapy education was provided by a pharmacist NO - Side effect management information was provided/discussed including but not limited to: anemia, arthralgia, bowel habit changes, cardiac toxicity, hair loss, hand-foot syndrome, mouth hygiene, mucositis, myalgia, nausea/vomitting, neutropenia YES - Provided important phone numbers and contacts during and after hours. YES - Provided information on symptoms that require immediate assistance. YES - Provided Chemotherapy when to call handouts YES - Preventing infection. YES - Treatment schedule and confirmation of appointment times. YES - Available support groups. YES - The importance of contraception during the course of chemotherapy NA - Neutropenic fever protocol discussed with patient, which included the importance of reporting anyfever of 100.4F (38.0C) or greater to the healthcare team as noted on the provided wallet card and/or magnet. YES Time Spent: 45 minutes REFERRAL (RECOMMENDATION): N/A Laura Alfonso RN documented in this encounterSt. Anthony'S Hospital06-23-2023 Miscellaneous Notes* Telephone Encounter - Danielle Amezquita - 12/11/2022 12:51 PM EDT Spoke with pt and scheduled as directed * Telephone Encounter - Js Cruz DO - 12/11/2022 12:42 PM EDT I can see her at 3:10 today. No labs. Brief OV to discuss/consent for Doxil. Js Cruz DO * Telephone Encounter - Jayla Monroy - 12/11/2022 9:06 AM EDT Patient called in as she had just completed an appointment with Dr. Fang Cote at [facility].Dr. Cote advised her to contact this office, advise Dr. Cruz to review Dr. Cote's notes and schedule the patient for QMO Doxil as well as a CT after the 3rd cycle. Please advise. Jayla Monroy documented in this encounterSt. Anthony'S Hospital06-23-2023 History of Present illness Narrative* Fang Cote MD - 12/11/2022 8:00 AM EDT TELEPHONE VISIT PROGRESS NOTE Patient has consented to this telephone encounter, not originating from a related Evaluation & Management service provided within the previous 7 days. NOTE: Cannot be used if an Evaluation & Management service or procedure is planned within the next 24 hours. Gynecologic Oncology Telephone Visit Follow up visit Date of service: 12/11/2022 Persons Present: patient Chief Complaint/Reason: Savana Patel to discuss Tumor Board Results HPI: Ms. 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 Last Office Visit: 11/27/2022 ONCOLOGY HISTORY 1) 10/06/2018: Exploratory laparotomy, total abdominal hysterectomy, bilateral salpingooophorectomy,and bladder and posterior culdesac peritoneum resected en bloc, omentectomy 2) 11/11/2018 - 02/03/2019: PACLITAXEL 80 D1,8,15 CARBOPLATIN 6 D1 - Q21D s/p 4 cycles. *neutropenia/thrombocytopenia causing treatment delay. Neulasta OnPro added; switch to Q21D dosing of Taxol with cycles 5 & 6 02/23/2019 - 03/17/2019: PACLITAXEL 135 D1 CARBOPLATIN 6 D1 - Q21D s/p 2 cycles. 3) 06/30/2019 - 06/20/2021: olaparib (LYNPARZA) 150 mg tablet; 300 mg BID. 07/07/2022 POWER BARKER/ONC TUMOR BOARD Decontamination Technician/Onc Tumor Board Encounter Note Date of Tumor Board Presentation: 07/07/2022 Treating Physicians: Fang Cote MD Age: [age] year old Disease site: Ovary- High-grade serous adenocarcinoma Stage(at tumor board presentation)- Ovarian: Recurrent Care Path Discussion: No Clinical Trial Discussion: No If yes, what clinical trial should be considered? N/A Type of Tumor Board Review: Recurrence Attendance/Disciplines: POWER BARKER ONC, RAD ONC, Radiology, Pathology, and Genetics Management Options: - Recommend [place] based chemotherapy over secondary cytoreduction Citations: NCCN Ovarian Cancer Guidelines Version .2022 [facility] Carepath Guidelines: Ovarian Cancer Shanita P, Heather J, Vermini I, Bob White G, Reshankar A, Jonah W, Nadia S, Pedrogaalynette BJ, Andrewe F, Guyon F, Pomyoselin C, L joaquim F, Viry R, Marlin E, Hyacinth JW, Cecil J, Ashish F, Laura G, Roni, Torey P, Griffin P, Hasnigel A, Rodolfo-Elioi S, Arben MR, Rios B, Reinthaller A, Santaballa A, Olaitan A, Hilheladio F, brianna Moreland; [facility] III Investigators. Randomized Trial of Cytoreductive Surgery for Relapsed Ovarian Cancer. N Engl J Med. 2020May 22;385(23):6454-3142. doi: 10.1056/[id number]. Erratum in: N Engl J [facility]. 2021Aug 07;386(7):704. PMID: 35903042. Lisa PG, Celestine M, Lisbet LM, H, Cristofer R, May CM, Glenroy M, Ryan S, Roney R. PARPinhibitors decrease response to subsequent [place]-based chemotherapy in patients with BRCA mutated ovarian cancer. Anticancer Drugs. 2020Apr 21;32(10):2838-8552. doi: 10.1097/CAD.8178281760622060. PMID: 29186200. Anthony O, Sal DS, Krishnamurthy Q, Xiang A, Servando JA, Priyank V, Negin RN, Nito AK, Aguilar S, Cesar NATALIIA, Clem ED, Loi CL, Paroaamir V, Lakrani Y, Matilde K, Telles K, Crenshaw GJ, Andiknoel V, Carlos J, Bonnie EL, Long Effie K, Chrissy- Wilton T, Jihan SM, Arturo LA, Anson K, Sarah-Laurent NR, Justen C, Sunday WP, Kim J, Racheal Y, O'Becka RE. Secondary Cytoreduction and Carboplatin Hyperthermic Intraperitoneal Chemotherapy for [place]-Sensitive Recurrent Ovarian Cancer: An MAKTea Ovary Phase II Study. J Clin Oncol. 2020Jan 28;39(23):3256-1494. doi: 10.1200/JCO.21.54329. Epub 2020November 08. PMID: 42218172; PMCID: [id number]. This abstract and interpretation of the conversation at tumor board has been completed by Rupa Mosquera MD. These are the general recommendations/discussion provided at tumor board conference. The definitive recommendations/discussion will be made by the primary health care team and patient after fulldiscussion as appropriate. Treatment with Carboplatin & Paclitaxel. 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 [facility] Type of Tumor Board Review: Recurrence Attendance/Disciplines: POWER BARKER ONC, RAD ONC, Radiology, Pathology, and Genetics Management Options: - Consider treatment holiday - Consider doxil - Consider TTI-162 Citations: NCCN Ovarian Cancer Guidelines Version 2.2022 [facility] Carepath Guidelines: Ovarian Cancer Anastacio RL, Marky MF, TJ, Sabraghu P, Pieter DK, Mihir JL, Hyacinth BG, Sunil K, Jaycee KS, O'Donovan DM, Elias SA, Julien SC, Veronicavescoreyo P, Israel Broderick K, Lunsford H, Manjeet JK, Maura NM, Maira R, Angela RS. Bevacizumab and paclitaxel-carboplatin chemotherapy and secondary cytoreduction in recurrent, [place]-sensitive ovarian cancer ([employer] On[employer]/Gynecologic Oncology Group study [id number]): a multicentre, open-label, randomised, phase 3 trial. Lancet Oncol. 2017 Ric;18(6):779-791.doi: 10.1016/I2606-7096(26)58413-6. Epub 2016Oct 09. PMID: 82754027; PMCID: [id number]. Arben MR, BJ, Herraji J, Ansley AM, Grady S, Nallely A, Riana M, Dg JA, Paola Álvarez, Claudia Mayers, Luis NE, Yana C, M?dimitri R, Lakesha RD, Golden JS, D rum A, Ivis AV, brianna Lincoln A, Chandler Nicole oliva A, Neville P, Ammon B, Arnol P, Miguel L, Alfa BJ, Feli J, Elvis NATALIIA, Leah S, Rina UA; ENGOT-OV16/NOVA Investigators. Niraparib Maintenance Therapy in [place]-Sensitive, Recurrent Ovarian Cancer. N Engl J Med. 2016 May 21;375(22):9231-2717. doi: 10.1056/KMCCxd8648913. Epub 2015Mar 27. PMID: 51967154. Manuel Zimmerman, Carmen Soto, Coleen Beckham., Georgia Romero., Malena Gordon., Renetta Vigil., Shane Oliva., Nelson R., Sylvia R., Nati Manriquez., Terry Moreland., Shweta Manriquez., Adilene F., Chaparrita Kolb., Kym Aguilar., Annemarie Winston.,Eliot Manriquez., Andrea Romero., Selvin Mayers., Nallely Moreland. Maintenance olaparib rechallenge in patients (pts)with ovarian carcinoma (OC) previously treated with a PARP inhibitor (PARPi): Phase IIIb OReO/ENGOTOv-38 trial. Tiara. Oncol. 2020;32(suppl_5):V5272-W5196. Shanita P, Heather Simpson, Claudia Mayers, Angi G, Peyton A, Jonah W, Nadia S, Deandre MORALES, Carmen F, Leigha F, Rufino C, L joaquim F, Viry R, Marlin E, Hyacinth JW, Cecil J, Ashish F, Laura G, Roin, Torey P, Griffin P, Hasnigel A, Randell S, Arben MR, Rios B, Denise A, Kevin A, Frank A, Parth F, brianna Lincoln A; [employer] III Investigators. Randomized Trial of Cytoreductive Surgery for Relapsed Ovarian Cancer. N Engl J Med. 2020May 22;385(90):6394-6967. doi: 10.1056/[id number]. Erratum in: N Engl J Med. 2021Aug 07;386(4):704. PMID: 92999210. This abstract and interpretation of the conversation at tumor board has been completed by Rupa Mosquera MD. These are the general recommendations/discussion provided at tumor board conference. The definitive recommendations/discussion will be made by the primary health care team and patient after fulldiscussion as appropriate. 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 This result confirms a diagnosis ofHereditary Breast and Ovarian Cancer Syndrome. Patient's laboratory accession # is [id number]. (View full doc under 05/02/19 telephone encounter) INTERVAL HISTORY: Since last visit she took Cipro for UTI; denies pain, urgency, or burning with urination. Reports continued brief soreness following urination. RESULTS: Data Reviewed: Most recent labs And tumor board results (see Onc History) CA 125 (U/mL) Date Value 12/07/2022 10 11/23/2022 11 10/30/2022 11 10/09/2022 12 09/18/2022 15 08/28/2022 30 08/04/2022 181 07/20/2022 483 06/18/2022 125 04/13/2022 14 03/23/2022 12 02/24/2022 10 01/19/2022 10 12/23/2021 10 11/24/2021 11 10/27/2021 11 09/29/2021 10 09/01/2021 9 07/07/2021 8 06/09/2021 9 05/12/2021 8 04/14/2021 8 02/19/2021 9 12/09/2020 9 10/23/2020 9 09/27/2020 8 08/23/2020 8 07/26/2020 8 06/28/2020 8 03/28/2020 8 02/01/2020 8 01/01/2020 8 10/20/2019 8 09/22/2019 7 08/25/2019 8 07/28/2019 8 07/20/2019 8 07/14/2019 9 07/07/2019 8 06/20/2019 9 03/27/2019 7 09/12/2018 1,153 12/07/22 CBC + DIFF Component Ref Range & Units 3 d ago (12/07/22) 2 wk ago (11/23/22) 3 wk ago (11/17/22) 1 mo ago (10/30/22) 2 mo ago (10/09/22) 2 mo ago (09/18/22) 3 mo ago (08/28/22) WBC 3.70 - 11.00 k/uL 6.59 7.10 11.10 High 10.41 8.33 9.60 7.97 RBC 3.90 - 5.20 m/uL 3.85 Low 3.94 3.89 Low 3.96 4.27 4.23 4.22 Hemoglobin 11.5 - 15.5 g/dL 10.5 Low 10.7 Low 10.5 Low 10.9 Low 11.6 11.5 11.5 Hematocrit 36.0 - 46.0 % 32.8 Low 33.8 Low 33.1 Low 33.5 Low 35.8 Low 35.5 Low 34.8 Low MCV 80.0 - 100.0 fL 85.2 85.8 85.1 84.6 83.8 83.9 82.5 MCH 26.0 - 34.0 pg 27.3 27.2 27.0 27.5 27.2 27.2 27.3 MCHC 30.5 - 36.0 g/dL 32.0 31.7 31.7 32.5 32.4 32.4 33.0 RDW-CV 11.5 - 15.0 % 15.2 High 15.9 High 16.0 High 17.3 High 18.0 High 17.8 High 17.1 High Platelet Count 150 - 400 k/uL 148 Low 148 Low 146 Low 132 Low 154 145 Low 138 Low MPV 9.0 - 12.7 fL 10.0 9.5 10.0 10.0 10.5 9.8 9.7 Neutrophils % % 63.7 71.5 76.5 74.9 73.0 75.7 76.8 Abs Neut 1.45 - 7.50 k/uL 4.20 5.07 8.50 High 7.80 High 6.08 7.27 6.12 Lymphocytes % % 24.9 18.0 14.0 13.6 13.9 13.8 13.8 Abs Lymph 1.00 - 4.00 k/uL 1.64 1.28 1.55 1.42 1.16 1.32 1.10 Monocytes % % 9.6 9.0 8.2 10.1 11.5 9.3 7.9 Abs [place] <0.87 k/uL 0.63 0.64 0.91 High 1.05 High 0.96 High 0.89 High 0.63 Eosinophils % % 1.2 0.8 0.5 0.4 0.7 0.4 0.5 Abs Eosin <0.46 k/uL 0.08 0.06 0.06 0.04 0.06 0.04 0.04 Basophils % % 0.3 0.4 0.3 0.6 0.5 0.4 0.4 Abs Baso <0.11 k/uL <0.03 0.03 0.03 0.06 0.04 0.04 0.03 Immature Granulocytes % % 0.3 0.3 0.5 0.4 0.4 0.4 0.6 Abs Immature Gran <0.10 k/uL <0.03 <0.03 0.05 0.04 0.03 0.04 0.05 NRBC /100 WBC 0.0 0.0 0.0 0.0 0.0 0.0 0.0 Absolute nRBC <0.01 k/uL <0.01 <0.01 <0.01 <0.01 <0.01 <0.01 <0.01 Diff Type Auto Auto Auto Auto Auto Auto Auto Resulting Agency [facility] 12/07/22 COMP METABOLIC PANEL Component Ref Range & Units 3 d ago (12/07/22) 2 wk ago (11/23/22) 1 mo ago (10/30/22) 2 mo ago (10/09/22) 2 mo ago (09/18/22) 3 mo ago (08/28/22) 4 mo ago (08/04/22) Protein, Total 6.3 - 8.0 g/dL 7.5 7.5 7.6 7.6 7.3 7.1 7.0 Albumin 3.9 - 4.9 g/dL 4.5 4.3 4.5 4.3 4.4 4.3 4.3 Calcium, Total 8.5 - 10.2 mg/dL 9.5 9.5 9.2 9.7 9.7 9.9 9.0 Bilirubin, Total 0.2 - 1.3 mg/dL 0.4 0.2 0.3 0.4 0.3 0.4 0.4 Alkaline Phosphatase 34 - 123 U/L 77 95 121 112 115 114 93 AST 13 - 35 U/L 19 18 20 20 20 18 18 ALT 7 - 38 U/L 13 14 17 20 17 15 11 Glucose 74 - 99 mg/dL 112 High 94 CM 110 High CM 100 High CM 106 High CM 106 High CM 115 High CM Comment: The [place] [employer] (ADA) provides guidance for cutoff values for fasting glucose and random glucose. The ADA defines fasting as no caloric intake for at least 8 hours. Fastingplasma glucose results between 100 to 125 mg/dL indicate increased risk for diabetes (prediabetes). Fasting plasma glucose results greater than or equal to 126 mg/dL meet the criteria for diagnosis of diabetes. In the absence of unequivocal hyperglycemia, results should be confirmed by repeat testing. In a patient with classic symptoms of hyperglycemia or hyperglycemic crisis, random plasma glucose results greater than or equal to 200 mg/dL meet the criteria for diagnosis of diabetes. Reference: Standards of Medical Care in Diabetes 2016, [place] [employer]. Diabetes Care. 2016.39(Suppl 1). BUN 7 - 21 mg/dL 28 High 23 High 33 High 25 High 21 26 High 23 High Creatinine 0.58 - 0.96 mg/dL 0.97 High 0.74 0.80 0.86 0.68 0.74 0.71 Sodium 136 - 144 mmol/L 136 137 137 141 138 139 137 Potassium 3.7 - 5.1 mmol/L 4.0 4.4 4.5 4.7 4.3 4.2 4.4 Chloride 97 - 105 mmol/L 100 105 102 103 104 104 102 CO2 22 - 30 mmol/L 26 24 26 27 26 28 24 Anion Gap 9 - 18 mmol/L 10 8 Low 9 11 8 Low 7 Low 11 Estimated Glomerular Filtration Rate >=60 mL/min/1.73m 62 86 CM 78 CM 71 CM 92 CM 86 CM 90 CM Comment: Estimated Glomerular Filtration Rate (eGFR) is calculated using the 2020 CKD-EPI creatinine equation. This equation utilizes serum creatinine, sex, and age as parameters. The creatinine assay has traceable calibration to isotope dilution-mass spectrometry. Refer to KDIGO guidelines for clinical interpretation. In patients with unstable renal function, e.g. those with acute kidney injury,the eGFR may not accurately reflect actual GFR. Resulting Agency [facility] 12/07/22 MAGNESIUM BLOOD Component Ref Range & Units 3 d ago (12/07/22) 2 wk ago (11/23/22) 1 mo ago (10/30/22) 2 mo ago (10/09/22) 2 mo ago (09/18/22) 3 mo ago (08/28/22) 4 mo ago (08/04/22) Magnesium 1.7 - 2.3 mg/dL 2.1 2.2 2.1 2.1 2.0 2.1 2.0 Resulting Agency [facility] Assessment & Plan: 09/10/2020 - Dr. 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 Interval testing since last visit discussed, CA125 reviewed and within normal limits. Patient is up-to-date with health maintenance includingmammogram, colonoscopy and advanced directives. Reviewed issues of survivorship including sexual health after cancer treatment, mental health and support systems. Importance of cancer surveillance and early detection of recurrence reinforced. 10/28/2020- Heather Lutz NP (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 Advised her value is stable. Last CT scan was in March 2020. Will order CT of the chest abdomen and pelvis for reevaluation while on PARPi therapy. Patient would like to establish with Dr. Cote, will move her appointment with me from 12/[address] Dawson on 12/[address] scans the week before. Continue monthly labs while on PARPi therapy Patient verbalized an understanding and agreed with the plan. Instructed to call if she has any questions or concerns. 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 Patient expressed concern about receiving the COVID vaccine while taking Olaparib. I advised the patient to continue with the COVID vaccine and discussed findings that supported my recommendation with her. Patient is receptive to recommendation. I answered all of the patient's and patient's 's questions and addressed their concerns. Plan to RTC in March [address] before and in June 2021. Continue with monthly CBC, and CA 125 prior to office visit with me in [place]. Patient verbalized an understanding and agreed with the plan. 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 I reviewed the most recent CT results with the patient which showed no acute pathology, no suspicious pulmonary nodules, no thoracic lymphadenopathy in the chest, and no acute pathology, and no mass or lymphadenopathy in the abdomen and pelvis. Ms. Patel received the 2nd COVID vaccine in [place], and reports experiencing hot flashes since that time. I believe that this might be due to the Lynparza. Ms. Patel also complains of leg cramps that onset at night. I recommend taking multivitamins daily, as well as eating a diet rich in Potassium. Ms. Patel will continue taking Lynparza until the last day in May. Plan to RTC on June 25, [address], CBC, and CA [address] results show no new evidence of disease, we will discuss stopping her PARP. We will discuss the cancer surveillance timeline at the next visit. 07/04/2021 Stop lynparza. Ok to stop protonix in 2-3 weeks after stopping lynparza. I recommend leaving [place] for one year. Discuss in one year. Discussed no scans needed unless concerning s/s of recurrence. CA 125 prior to each office visit. 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 Discussed she may have some improvement but hard to say at this point. Recommend KN95 with omicron variant. Discussed covid testing guidelines. Follow up in 3 months 10/01/2021 Impression: History of Ovarian Cancer, most recently had completed Olaparib . CA 125 is 10, stable, but she is worried because it has increased by 1 point. Discussed the significance of small changes in CA 125 and anxiety which often accompany's this. Plan: CA 125 and clinical examination in December. Vulvar dryness and itching. Will prescribe Lotrisone cream. Said she had this in past and it helped her. She will call office if symptoms of itching, and dryness don't resolve in the next couple of weeks. 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 CA 125 is stable. Some bladder symptoms at times. Intermittent. Discussed pelvic floor PT. Will trial melatonin for insomnia and some assistance with constipation. BMD ordered for osteopenia screening. 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 No clinical evidence of disease. She has been off her PARP for approximately 9 months. Repeat CA 125 in 3 months. If CA 125 value is >15, (the roberto value,) will check CT scan as well. Reviewed signs and symptoms of recurrence and told to call with persisting concerns. Follow up in clinic in June for continued surveillance. 04/22/2022 She is feeling a bit better. I reviewed the recent labs she had. Nothing actionable. No clinical evidence of diverticulitis or UTI. She has had a flu shot. I advise getting the covid bivalent booster. CA 125 again in June a couple days before she sees me. She is in agreement with these plans. 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 Recently her CA 125 has jumped from 14 (04/13/22) to 125 (06/18/22). PLAN CT Chest & Abd/Pel to be done in [place] early next week. Contact clinic if CT is scheduled forlater than Wednesday to reschedule virtual visit. Follow up Wednesday07/01/[address] to review results of CT scan and discuss her care plan. 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 Would be considered [place] sensitive. Cancer appears to be involving distal ileum, and possibly sigmoid colon and right psoas. There may be sub-centimeter lesions elsewhere in the abdominal cavity. These findings were reviewed in detail with . Options for management include secondary debulking, possibly with HIPEC, followed with chemotherapyvs chemotherapy alone. To better assess whether secondary debulking would be appropriate, a pelvic MRI will be checked with focus on the possible involvement of the psoas muscle and surrounding blood vessels. If secondary debulking not advised, a CT guided biopsy of the recurrence will be considered as thissample can be sent for somatic tumor testing which can guide future treatment decisions. PLAN Review her case at the next Decontamination Technician/Onc Tumor Conference. MRI to be [facility] in [facility] for later this week. Follow up Wednesday07/08/22 to review Tumor Board discussion and MRI results. We will confirm the care plan at this time. 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 Her case was discussed in Tumor Board on 07/07/22. 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 If Bevacizumab is started, beginning with cycle number 3 of chemotherapy, consider single agent Bevacizumab following several cycles of carboplatin, Paclitaxel, and Bevacizumab Side effects of treatment plan reviewed, questions answered to patient's satisfaction. She is agreeable with this plan. Symptoms concerning for worsening disease reviewed. Instructed to contact this clinic if she has any questions. PLAN She wishes to receive her chemotherapy in [place] with Dr.Paul Eve DO. A copy of this note will be forwarded to him today. I will reach out to to fascilitate an appointment [phone] Follow up with me at the [facility] 2 weeks after her second cycle of chemotherapy, with a CT prior to that appointment. Will decide if Bevacizumab should be added at this time. 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 She is s/p cycle two of chemotherapy with Carboplatin and Paclitaxel. No unexpected toxicity. Improvement of disease burden on CT Discussed potential addition of Bevacizumab to current chemotherapy plan. Given indication of persistent tethering of cancer to right colon on CT, Bevacizumab is not iadvised at this time. PLAN Continue chemotherapy with carbo/taxol under 's supervision. Repeat CT after cycle 6, will place order for this. Follow up in this office after cycle 6, to review the CT and discuss maintenance therapy options. 08/31/22 Telephone Call with Corinne Santana RN Spoke with pt who reports that she was given chemo today at [facility] and was accidentally given michael along with her carbo/taxol which she was not supposed to receive per her OV with Eve on 08/28. Pt is still very anxious r/t the error and is calling to be certain the [facility] is aware of the situation. Pt is questioning whether she should expect her bowel to perforate due to this mistake.Explained that this is a known but relatively rare side effect. There is no certainty it will or will not happen. Reviewed S&S of acute abd that would require immediate medical attention. Ensuredthat pt has on-call employee relations consultant phone number. Pt states she was also given the on-call onc number at [facility]. Also explained that the med error will be reported and go through the proper channels toensure proper review. Pt remains anxious and requests to speak directly to [facility]. Pt was offereda televisit on 09/02 at 0900 which she accepted. The appt will be scheduled. Pt is appreciative of conversation and information discussed. 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 She is s/p cycle three of chemotherapy with Carboplatin and Paclitaxel. Bevacizumab was given with cycle 3, which was not planned based on CT findings). Presently no concerning symptoms related to bevacizmab administration. Explained that bevacizumab is an approriate agent in her type of cancer, and though not planned to have been given, holding this agent prior to last cycle of chemotherapy was a judgement call. We reviewed serious but uncommon side effect of bowel perforation or peritonitis. Reviewed other side effects of bevacizumab. Reviewed alternative names of bevacizumab including the version she received, Zirabev. Addressed her anxiety surrounding the unplanned dose of bevacizumb given. PLAN Repeat CT after cycle 4 of chemotherapy (taxol and carboplatin) Will readdress potential role for bevacizumab in treatment upon review of future scans Follow up as planned in the office to discuss scans & care plan. 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 Most recent CT imaging showing stable disease burden. 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 Discussed option of continuing with current therapy with understanding that future chemotherapy will not likely result in significant reduction in tumor burden, but stable disease for some time is possible, though with high chance of worsening chemotherapy associated toxicity.. Other treatment options discussed included chemo holiday vs clinical trial vs potential surgery. PLAN Will aim to present ' case at Tumor Board at next available presentation. Follow up via telephone visit to discuss Tumor Board's recommendations & determine her care plan. Ok to go for eye exam Order placed for urine culture to be completed at [facility]. Signs and symptoms of worsening disease reviewed. Contact this office with any questions or concerns prior to that appointment. 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 Chemo toxicity reported; grade 2 neuropathy in hands, fatigue also reported. Post-treatment CT imaging showed stable disease burden, CA 125 stable. Discussed results of Decontamination Technician/Onc Tumor Board. Recommendation is continued chemotherapy with Doxil, single agent, 40 mg/m2 IV every 4 weeks. No growth factor with cycle 1, reassess need for growth factor pending marrow toxicity. Benefits, risks, side effects, and treatment schedule of Doxil discussed. Total number of cycles required cannot be determined at this time, plan for at least 6. Questions answered to patient's satisfaction. PLAN She wishes to receive her chemotherapy under the direction of ; a copy of this note will be shared with him. CT scans to be repeated following 3 treatments. Return to clinic following cycle 3 to review her imaging results and discuss her treatment. Contactthis office with any questions or concerns prior to then. Total Time Spent: 11-20 minutes Documentation from clinic notes of previous visit on 11/27/2022 was copied and pasted, documentation has been reviewed and edited as necessary and is current for today. ATTESTATION Scribe Attestation: By signing my name below, I,Jayla Bridges, attest that this documentation has been prepared under the direction and in the presence of Fang Cote MD . Electronically Signed: Chasity Singleton. December 11, 2022 8:46 AM. Provider Attestation: I, Dr. Fang Cote, personally performed the services described in this documentation. All medical record entries made by the scribe were at my direction and in my presence. I have reviewed thechart and discharge instructions (if applicable) and agree that the record reflects my personal perf ormance and is accurate and complete. Electronically Signed: Fang Cote MD. December 20, 2022 10:31 PM documented in this encounterSt. [facility] Miscellaneous Notes* Telephone Encounter - Beatrice Chu LPN - 12/10/2022 2:40 PM EDT Patient is aware that she needs to contact Dr. Cote's office for information regarding tumor board findings. Beatrice Chu LPN * Telephone Encounter - Keke Sanchez - 12/09/2022 9:44 AM EDT Spoke to pt and scheduled. She is asking if there is any update from the tumor board? Please advise * Telephone Encounter - Edna Reynolds - 12/07/2022 4:51 PM EDT OV/CBC/CMP/C125 in about 3-4 weeks. documented in this encounterSt. [facility]06-[facility]23 History of Present illness Narrative* Js Cruz DO - 12/07/2022 2:38 PM EDT pmasciDiagnosis: 1) Recurrent high grade serous carcinoma of the ovary. 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 Initially underwent pelvic ultrasound on 09/01/2018. Uterus appeared normal. The endometrial stripe was 2.3 mm. Right and left ovaries appeared normal. However there was a large amount of free fluid in the pelvic cul-de-sac. CT A/P 09/08/2018: Liver: No mass. Homogeneous texture. Biliary: No ductal dilatation is seen. Gallbladder is unremarkable. Spleen: Spleen is unremarkable. Pancreas: No mass or duct dilation. Adrenals: Adrenal glands are unremarkable. Kidneys: No mass, calculus or hydronephrosis is seen. GI tract: No bowel dilatation is seen. No evidence of obstruction. Lymph nodes: No evidence of adenopathy. Mesentery/Peritoneum: There is increased soft tissue density best seen in the coronal views extending from the lower abdomen into the pelvic area. This could represent peritoneal involvement with tumor. This is seen on coronal image 37 and axial images 99 through 122. It extends across the anterior aspect of the pelvic area seen on axial image 124. Vasculature: No evidence of dilatation of the abdominal aorta. CT PELVIS: Pelvis: There is a large amount of free fluid or loculated fluid in the pelvis suggesting that there could be an enhancing rim surrounding this fluid is seen on image 127 and measures 10.6 x 6.1 cm. Bones/Soft Tissues: No significant findings identified. Lower thorax: Unremarkable. CA125 was 1153 U/mL. Had employee relations consultant onc evaluation and CT chest unremarkable. Underwent exploratory laparotomy, optimal tumor bulking, total abdominal hysterectomy, bilateral salpingo-oophorectomy, resection of bladder cul-de-sac and pelvic peritoneal disease along with resection of omental caking with super colic omentectomy on 10/06/2018. Pathology: FINAL DIAGNOSIS 1. 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 2. 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 3. Uterus, cervix, bilateral ovaries and fallopian tubes, and bladder/pelvic peritoneum, hysterectomy and excision (C) Left fallopian tube - High grade serous carcinoma (see comment and synoptic report). Right fallopian tube - Positive for involvement by high grade serous carcinoma. Bilateral ovaries - Positive for involvement by high grade serous carcinoma. Uterine serosa - Positive for involvement by high grade serous carcinoma. Bladder/pelvic peritoneum - Positive for involvement by high grade serous carcinoma. Endometrium - Inactive endometrium. Myometrium - Negative for malignancy. Cervix - Negative for malignancy. SYNOPTIC REPORT OF BRAUN PATHOLOGIC FINDINGS UTERUS, CERVIX, BILATERAL TUBES AND OVARIES, BLADDER, AND PELVIC PERITONEUM: Procedure: Total hysterectomy and bilateral salpingo-oophorectomy Omentectomy Peritoneal biopsies Specimen Integrity: Left fallopian tube serosa intact Primary Tumor Site: Left fallopian tube Ovarian Surface Involvement: Present Specify laterality (if applicable): Bilateral Fallopian Tube Surface Involvement: Present Specify laterality (if applicable): Bilateral Tumor Size: Greatest dimension: 1.6 cm Histologic Type: Serous carcinoma Histologic Grade: Not applicable Two-tier grading System: High grade Implants: Not applicable/not sampled Involvement of other tissues/organs: Right ovary Left ovary Right fallopian tube Pelvic peritoneum Omentum Other organs/tissues (specify): Uterine serosa Largest extrapelvic peritoneal focus, macroscopic (greater than 2 cm) Peritoneal Ascitic Fluid, Not submitted/unknown Treatment Effect: No known presurgical therapy Regional Lymph Nodes: No nodes submitted or found Pathologic Stage Classification (pTNM, AJCC 8th ed) TNM Descriptors: Not applicable Primary Tumor (pT): pT3c: Macroscopic peritoneal metastasis beyond pelvis more than 2 cm in greatest dimension with or without metastasis to the retroperitoneal lymph nodes (includes extension to capsule of liver and spleen without parenchymal involvement of either organ) Regional Lymph Nodes (pN): pNX: Cannot be assessed Distant Metastasis (pM): Not applicable/Not confirmed pathologically in this case Previous therapy: 1) 11/11/2018 - 02/03/2019: PACLITAXEL 80 D1,8,15 CARBOPLATIN 6 D1 - Q21D s/p 4 cycles. *neutropenia/thrombocytopenia causing treatment delay. Neulasta OnPro added; switch to Q21D dosing of Taxol with cycles 5 & 6 02/23/2019 - 03/17/2019: PACLITAXEL 135 D1 CARBOPLATIN 6 D1 - Q21D s/p 2 cycles. 2) 06/30/2019 - 06/20/2021: olaparib (LYNPARZA) 150 mg tablet; 300 mg BID. CTs 06/29/2022: Mesentery/Peritoneum: * New 0.4 cm anterior mesenteric fat nodule (8:57) * Confluent infiltrative soft tissue in RIGHT false pelvis surrounding the terminal ileum and ascending colon (cecum deep in pelvis) and probably affecting the sigmoid colon; difficult to precisely measure as it envelops bowel but including bowel measures approximately 4.5 x 2.9 cm (8:101); process extends to the RIGHT psoas muscle * Several small subtle anterior mesenteric fat nodules * No free abdominal fluid MRI pelvis 07/02/2022: Similar imaging findings since CT 06/29/2022, redemonstrating pelvic peritoneal/serosal carcinomatosis involving segments of bowel predominantly in the right anterior pelvis, with confluent soft tissue encasing the proximal ascending colon and causing relative upstream dilation of the low-lying cecum suggesting developing colonic obstruction. No small bowel dilation. No pelvic lymphadenopathy. Recommended to retry carbo/paclitaxel with potential addition michael if disease clears the bowel. Current therapy: 1) Carboplatin/paclitaxel. Presents for ongoing oncologic management. Evaluation for cycle #6. Interim history: Review neuropathy is stable. No abdominal pain, bloating or distention. Appetite is normal. No nausea or vomiting. She has some voiding irritation at the urethra. She had a UA and culture done at [facility]. She was placed gianfranco 7-day course of Cipro. She is been having more stress incontinence and lately has been wearing depends and sometimes the depends can stay wet for several hours before she gets home to change. PMH, medications and allergies personally reviewed by me today. Any changes documented in appropriate section. ROS: Constitutional: Denies episodes of fever and night sweats. Neuro: Denies MACHADO, vertigo, dizziness and imbalance. HEENT: No recent change in voice, vision or hearing. Resp: Denies cough, wheeze and hemoptysis. Denies shortness of breath at rest. Denies OLIVER. CVS: Denies exertional chest pain, PND, orthopnea and LE edema. GI: Denies dysgeusia. Denies symptoms of stomatitis. : Denies dysuria or gross hematuria. Endo: Denies hot flashes. Denies polyuria and polydipsia. Denies heat and cold intolerance. Musculoskeletal: Denies bone, back, joint and muscular pain. Derm: Denies rash. Denies jaundice and diffuse pruritis. Heme: Denies unusual bleeding and unexplained bruising. Psych: Normal mood. PHYSICAL EXAM: Vitals: Blood pressure 118/62, pulse 70, temperature 36.2 C (97.2 F), temperature source Temporal, resp. rate 14, height 162.6 cm (5' 4), weight 60.7 kg (133 lb 12.8 oz), SpO2 97 %. Well-appearing and in no acute distress. EYES: Sclerae are anicteric bilaterally. LYMPHATIC: There is no palpable cervical or supraclavicular adenopathy. RESPIRATORY: Inspiratory breath sounds are of normal intensity in all bernabe. No rales, wheezes or rhonchi. Expiratory phase is normal. CARDIOVASCULAR: Rhythm is regular. Normal intensity S1/S2. There is no gallop or murmur. ABDOMEN: The abdomen is nondistended. Soft and nontender throughout. No mass appreciated. No fluid wave. Extremities: No swelling or edema. SKIN: No jaundice or rash. 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 No focal motor weakness. DTRs are symmetric and normal. LABS: Component Latest Ref Rng & Units 10/30/2022 Protein, Total 6.3 - 8.0 g/dL 7.6 Albumin 3.9 - 4.9 g/dL 4.5 Calcium 8.5 - 10.2 mg/dL 9.2 Bilirubin, Total 0.2 - 1.3 mg/dL 0.3 Alkaline Phosphatase 34 - 123 U/L 121 AST 13 - 35 U/L 20 ALT 7 - 38 U/L 17 Glucose 74 - 99 mg/dL 110 (H) BUN 7 - 21 mg/dL 33 (H) Creatinine 0.58 - 0.96 mg/dL 0.80 Sodium 136 - 144 mmol/L 137 Potassium 3.7 - 5.1 mmol/L 4.5 Chloride 97 - 105 mmol/L 102 CO2 22 - 30 mmol/L 26 Anion Gap 9 - 18 mmol/L 9 eGFR >=60 mL/min/1.73m 78 Magnesium 1.7 - 2.3 mg/dL 2.1 Component Latest Ref Rng & Units 12/23/2021 01/19/2022 02/24/2022 03/23/2022 04/13/2022 06/18/2022 07/20/2022 08/04/2022 08/28/2022 09/18/2022 10/09/2022 CA 125 <39 U/mL 10 10 10 12 14 125 (H) 483 (H) 181 (H) 30 15 12 ASSESSMENT/PLAN: (C56.1, C56.2) Malignant neoplasm of both ovaries (HCC) (primary encounter diagnosis) Assessment: -KPS is 90%. -BRCA2 mutation (tested 04/2019). -Baseline CA125 1153 U/mL. -Recent progressive disease. Serosal bowel involvement. Symptoms were minimal. -Again addressed goals of care. She understands the goal of therapy is increasing overall survival and palliation of symptoms. -Lower abdominal symptoms from ovarian cancer improved following 2 cycles. -CA125 now normal. -Bevacizumab was administered with cycle 3. Please see infusion encounter note. Fortunately no bowel issues as a consequence. -Reviewed CT. Stable disease. -We talked about the plan from here. Dr. Dawson is going to present her at tumor board for discussion of further chemotherapy versus maintenance therapy at this point. There is a chance they would recommend Avastin for maintenance therapy so I discussed that with her. -Likely has urethral irritation. Urine culture negative. -Answered all of her questions to her satisfaction. Plan: -Await tumor board recommendations. -Use A&D ointment. -Office visit with labs in 3 to 4 weeks. Portions of this documentation were copied and pasted from previous office visit notes in order to provide a cohesive continuity of the history. The note has been reviewed and edited and updated as necessary. I spent a total of 30 minutes on the date of the service which included preparing to see the patient, [id number] patient care, completing clinical documentation, obtaining and/or reviewing separately obtained history, performing a medically appropriate examination, counseling and educating the pat ient/family/caregiver, communicating with other HCPs (not separately reported), and communicating results to the patient/family/caregiver. Js Cruz DO documented in this encounterSt. [facility] History of Present illness Narrative* Gladis Reynoso MA - 12/07/2022 12:15 PM EDT Scan on 12/02/2022 9:24 AM by External Provider, CITLALY: Consultation - Ophthalmology Gladis Reynoso MA documented in this encounterSt. [facility] Miscellaneous Notes* Telephone Encounter - Kaley Junior APRN.CNP - 12/03/2022 4:16 PM EDT Called patient to go over the results of her Urinalysis. Patient aware her UA is suspicious for an infection and with her complaints of suprapubic tenderness, I will treat her with an antibiotic. 12/03/2022 UA Component Ref Range & Units 7:30 AM (12/03/22) Color Yellow Yellow Clarity Clear Clear Glucose, Urine Trace, Negative Negative Bilirubin, Urine Negative Negative Ketones, Urine Trace, Negative Negative Specific [place], Ur 1.005 - 1.030 1.027 Hemoglobin/Blood,Ur Negative, Trace Negative pH, Urine 5.0 - 8.0 6.0 Protein, Urine Trace, Negative Trace Urobilinogen Negative Negative Nitrites Negative Negative Leuk Esterase Negative, 25 Yury/uL 75 Yury/uL Abnormal WBC, Urine 0-5 /HPF 11-25 /HPF Abnormal RBC, Urine 0-3 /HPF 0-3 /HPF Squamous Epithelial Cells /HPF Few Comment Urine Joey Comment Informed her how to take antibiotic and to take it in its entirety. Recommended she take it with food and to use a probiotic as well. Patient made aware to notify us if symptoms persist, she develop any abdominal/flank pain, fevers or chills, etc. Patient verbalizes understanding. I let her know that I would call her if she needed a different antibiotic after her urine culture resulted. Patient appreciative for the call. BENNETT Gonzalez documented in this encounterSt. [facility]06-[facility] History of Present illness Narrative* Fang Cote MD - 11/27/2022 2:10 PM EDT Gynecologic [facility] Follow up visit Date of service: 11/27/2022 PROBLEM/CC: Savana Patel presents for follow-up & scan review. HPI: Ms. 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 Last Office Visit: 08/25/2022 Last Distance Visit: 09/02/2022 ONCOLOGY HISTORY: 1) 10/06/2018: Exploratory laparotomy, total abdominal hysterectomy, bilateral salpingooophorectomy,and bladder and posterior culdesac peritoneum resected en bloc, omentectomy 2) 11/11/2018 - 02/03/2019: PACLITAXEL 80 D1,8,15 CARBOPLATIN 6 D1 - Q21D s/p 4 cycles. *neutropenia/thrombocytopenia causing treatment delay. Neulasta OnPro added; switch to Q21D dosing of Taxol with cycles 5 & 6 02/23/2019 - 03/17/2019: PACLITAXEL 135 D1 CARBOPLATIN 6 D1 - Q21D s/p 2 cycles. 3) 06/30/2019 - 06/20/2021: olaparib (LYNPARZA) 150 mg tablet; 300 mg BID. 07/07/2022 POWER BARKER/ONC TUMOR BOARD Decontamination Technician/Onc Tumor Board Encounter Note Date of Tumor Board Presentation: 07/07/2022 Treating Physicians: Fang Cote MD Age: [age] year old Disease site: Ovary- High-grade serous adenocarcinoma Stage(at tumor board presentation)- Ovarian: Recurrent Care Path Discussion: No Clinical Trial Discussion: No If yes, what clinical trial should be considered? N/A Type of Tumor Board Review: Recurrence Attendance/Disciplines: POWER BARKER ONC, RAD ONC, Radiology, Pathology, and Genetics Management Options: - Recommend [place] based chemotherapy over secondary cytoreduction Citations: NCCN Ovarian Cancer Guidelines Version 1.2022 [facility]: Ovarian Cancer Shanita P, Heather J, Vermini I, Angi G, Reshankar A, Jonah W, Gregbenjy S, Mosgaard BJ, Selle F, Guyon F, Pomel C, L curu F, Viry R, Santos-Dea E, Hyacinth JW, Cecil J, Rassapphire F, Laura G, LaurenJM, Torey P, Griffin P, Hasenburg A, Ghaem-Maghami S, Arben MR, Rios B, Reinthaller A, Santaballa A, Olaitan A, Hilheladio F, brianna Lincoln A; [facility] III Investigators. Randomized Trial of Cytoreductive Surgery for Relapsed Ovarian Cancer. N Engl J Med. 2020May 22;385(23):8642-7504. doi: 10.1056/MSYEnz5007809. Erratum in: N Engl J Med. 2021Aug 07;386(7):704. PMID: 20098567. Lisa PG, Celestine M, Lisbet LM, H, Cristofer R, May CM, AlDiana M, Ryan S, Sim R. PARPinhibitors decrease response to subsequent [place]-based chemotherapy in patients with BRCA mutated ovarian cancer. Anticancer Drugs. 2020Apr 21;32(10):7503-5137. doi: 10.1097/CAD.4322713396980017. PMID: 73713984. Anthony O, Sal DS, Krishnamurthy Q, Xiang A, Servando JA, Priyank V, Negin RN, Nito AK, Nertone S, Cesar NATALIIA, Nj ED, Loi CL, Paroaamir V, Lakchristianoan Y, Matilde K, Telles K, Den GJ, Andronel V, Carlos J, Bonnie EL, Long Effie K, Troso- Núñez T, Jihan SM, Arturo LA, Anson K, Abu-Laurent NR, Justen C, Sunday WP, Kim J, SonReal Francis RE. Secondary Cytoreduction and Carboplatin Hyperthermic Intraperitoneal Chemotherapy for [place]-Sensitive Recurrent Ovarian Cancer: An MSKTeam Ovary Phase II Study. J Clin Oncol. 2020Jan 28;3923):9581-0149. doi: 10.1200/JCO.21.18403. Epub 2020November 08. PMID: 04039632; PMCID: [id number]. This abstract and interpretation of the conversation at tumor board has been completed by Rupa Mosquera MD. These are the general recommendations/discussion provided at tumor board conference. The definitive recommendations/discussion will be made by the primary health care team and patient after fulldiscussion as appropriate. Treatment with Carboplatin & Paclitaxel. 07/20/2022: Cycle 1 Carbo/Taxol 07/21/2022 6 mg sub-Q Filgrastim 08/10/2022: Cycle 2 Carbo/Taxol 08/11/2022 6 mg sub-Q Filgrastim 08/31/2022: Cycle 3 Carbo/Taxol + Bevacizumab 09/01/2022 6 mg sub-Q Filgrastim 09/21/2022: Cycle 4 Carbo/Taxol 09/22/2022 6 mg sub-Q Filgrastim 10/12/2022: Cycle 5 Carbo/Taxol 10/13/2022 6 mg sub-Q Filgrastim 11/02/2022: Cycle 6 Carbo/Taxol 11/03/2022 6 mg sub-Q Filgrastim GENETIC TESTIN10/2018: Consultation ordered, patient counseled on testing several times 11/22/2018 Pathology: -PD-L1: 3% tumor cells positive, PD-L1 Clone = 22C3 -Mismatch repair proteins (MLH1, PMS2, MSH2, and MSH6) are expressed in carcinoma nuclei GERMLINE 05/02/2019: BRACAnalysis with Olimpia through [employer]PRET[employer] BRCA2 c.8904del (p.[id number]) heterozygous High Cancer Risk 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 This result confirms a diagnosis ofHereditary Breast and Ovarian Cancer Syndrome. Patient's laboratory accession # is [id number]. (View full doc under 05/02/19 telephone encounter) HISTORIES: PAST MEDICAL HISTORY Diagnosis Date Actinic keratosis 04/12/2007 Advance directive discussed with patient 08/24/2022 Discussed 08/2022: Up to date DEANDRE positive 07/25/2016 Rheum felt just Arthritis. 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 [place] ANGIOMA///NEVUS, NON-NEOPLASTIC 02/18/2007 Constipation 04/04/2015 Dysmetabolic syndrome X 12/28/2007 Essential hypertension 04/04/2015 GERD without esophagitis 07/24/2020 Hemorrhage of gastrointestinal tract, unspecified History of left mastectomy 05/05/2018 Impaired fasting glucose 11/21/2007 Internal hemorrhoids without mention of complication Leg cramps 01/08/[address] 07/31/2021 DPA is Living will on file 07/31/2021 DPA: Javier ( ) Malignant neoplasm of both ovaries (HCC) 10/26/2018 Mixed hyperlipidemia 04/04/2015 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 multiple joints 07/27/2016 Osteopenia 12/28/2012 Other acne 05/29/2008 Other seborrheic keratosis 02/18/2007 Panic attacks 07/18/2012 Primary insomnia 01/29/2022 SOLAR LENGINES///DYSCHROMIA OTHER 02/18/2007 Thrombocytopenia (HCC) 01/29/2022 chronic Trigger ring finger of left hand 07/24/2020 Trigger ring finger of right hand 07/24/2020 PAST SURGICAL HISTORY Procedure Laterality Date BX BREAST PERC VACUUM/ROTN 10/26/07 LEFT COLONOSCOPY FLX DX W/COLLJ SPEC WHEN PFRMD 07/20/05 COLONOSCOPY FLX DX W/COLLJ SPEC WHEN PFRMD 05/01/16 normal - 10 year follow up LIG/TRNSXJ FLP TUBE ABDL/VAG APPR UNI/BI Tubal ligation MAST RAD W/PECTORAL MUSCLES AXILLARY LYMPH NODES 11/26 Left PAST SURGICAL HISTORY OF BACK SURGERY PAST SURGICAL HISTORY OF 10/06/2018 Exploratory laparotomy, total abdominal hysterectomy, bilateral salpingooophorectomy, and bladder and posterior culdesac peritoneum resected en bloc, omentectomy PLCMT LOCALZTN CLIP,PERC,DURING BREAST BX 10/26/07 LEFT S PORT-A-CATH [id number] 11/09/2018 TONSILLECTOMY PRIMARY/SECONDARY <AGE 11 Tonsillectomy FAMILY HISTORY Problem Relation Age of Onset Ovarian cancer Mother dx 50s Arthritis Father Cancer Maternal Aunt 7 aunts with breast or ovarian cancer. details unknown SOCIAL HISTORY: Social History Tobacco Use Smoking status: Never Smokeless tobacco: Never Vaping Use Vaping Use: Never used Substance Use Topics Alcohol use: No Drug use: No Marital Status: PAST GYNECOLOGIC HISTORY: OB History T0 L0 SAB0 IAB2 Ectopic0 Multiple0 Live Births0 LMP: No LMP recorded. Patient has had a hysterectomy. HEALTH MAINTENANCE: Last pap: 01/27/2016 negative Last mammogram: 07/04/2021, Breast MRI 12/31/21 - both normal Last colonoscopy: 05/01/2016 ALLERGIES Allergen Reactions Penicillins Rash Sulfa (Sulfonamide * Unknown MEDICATIONS celecoxib (CELEBREX) 200 mg capsule Take 1 capsule by mouth once daily. DULoxetine (CYMBALTA) 30 mg capsule TAKE 1 CAPSULE BY MOUTH ONCE DAILY (Patient not taking: Reported on 11/13/2022) docusate sodium (COLACE ORAL) Take 1 tablet by mouth once daily. HYDROcodone-acetaminophen (NORCO) 5-325 mg per tablet Take 1-2 tablets by mouth every 6 hours as needed for pain. atorvastatin (LIPITOR) 10 mg tablet Take 1 tablet by mouth once daily. ramipril (ALTACE) 10 mg capsule Take 1 capsule by mouth once daily. promethazine (PHENERGAN) 25 mg tablet Take 1 tablet by mouth every 6 hours as needed. FOR NAUSEA heparin 100 unit/mL injection NURSING USE ONLY: USE FOR IMPLANTED VASCULAR ACCESS DEVICE (IVAD) FLUSH. AMBULATORY/OUTPATIENT: PLEASE REORDER UPON HOSPITAL DISCHARGE May access implanted vascular access device (IVAD) as needed for treatment. Before de-accessing port, flush with 10-20ml normal saline and follow with 5 mL heparin (100 units/mL) (if no heparin allergy). De-access port on treatment completion. Surgical Lubricant Jelly gel For MRI Female Pelvis, MRI department to provide. Administer intra-vaginal Surgilube immediately prior the MRI procedure (total amount to patient toleranace). iv contrast (will be provided with radiology test) CT Chest ABD/PEL-Inject, intravenously, once for1 dose.No IV access, insert saline lock prior to the beginning of sedation, infusion, injection of imaging exam. Discontinue saline lock post exam. If Pt. has a central line or IVAD, may access for administration according to line specific nursing protocol. Once exam is complete flush line and de-access according to line specific nursing protocol in the CT contrast administration guidelines link. enteric contrast (will be provided with radiology test) For CT CHESTABD/PEL W IVCON Routine order Administer, As Directed One Time Only, via Oral, Rectal, both Oral and Rectal, Enteric Tube, Stoma orIndwelling Catheter, Enteric Contrast as designated per enteric contrast guidelines iv contrast (will be provided with radiology test) CT Chest ABD/PEL-Inject, intravenously, once for1 dose.No IV access, insert saline lock prior to the beginning of sedation, infusion, injection of imaging exam. Discontinue saline lock post exam. If Pt. has a central line or IVAD, may access for administration according to line specific nursing protocol. Once exam is complete flush line and de-access according to line specific nursing protocol in the CT contrast administration guidelines link. enteric contrast (will be provided with radiology test) For CT CHESTABD/PEL W IVCON Routine order Administer, As Directed One Time Only, via Oral, Rectal, both Oral and Rectal, Enteric Tube, Stoma orIndwelling Catheter, Enteric Contrast as designated per enteric contrast guidelines INTERVAL HISTORY: Savana Patel reports that she is experiencing gradually worsening fatigue associated with her chromotherapy. She presents today with her . She has completed 6 cycles of chemotherapy with 6 injections of filgrastim (GF). Last Office Visit with Dr. Js Cruz DO on 10/30/22 Notes difficulty holding urine when she is feeling gassy, reports slight leakage. Denies urine leakage worse than a few drops. also reports uncomfortable vaginal dryness and discomfort with urination. Continues to report neuropathy in fingertips, mild neuropathy in her feet. also reports recent nose bleeds. She followed up with an ENT and has been using nasal saline spray. She denies SOB at rest or on exertion. PHYSICAL EXAM: VITALS: BP 132/62 Pulse 69 Wt 59.9 kg (132 lb) SpO2 99% BMI 22.66 kg/m GENERAL: Patient is a well developed, well nourished, no acute distress. Presenting with her SKIN: Color, texture, turgor normal. No rashes or lesions. HEENT: Normocephalic, atraumatic, mucus membranes moist, and no lesions NECK: Supple, no adenopathy; thyroid symmetric, normal size, no bruits LUNGS: Respirations unlabored. Chest clear. HEART: Regular rate and rhythm. No murmer. No JVD. ABDOMEN: Nontender. No palpable masses. No hernia felt. Liver and spleen not palpably enlarged. No ascites apparent. PELVIC: Vulva normal in appearance and nontender. Vagina no lesions. No pelvic masses. Uterus and cervix surgically absent. PSYCHIATRIC: Alert, cooperative. Normal affect. Normal behavior. LYMPH NODES: No palpable enlarged nodes in neck, groin or axilla. NEURO: Normal sensory. Motor intact and symmetric. Gait normal. LOWER EXTREMITIES: Not tender. No ulcers or swelling. Deep tendon reflexes are diminished Veneer Sander for exam: Corinne Santana RN RESULTS: CA 125 (U/mL) Date Value 11/23/2022 11 10/30/2022 11 10/09/2022 12 09/18/2022 15 08/28/2022 30 08/04/2022 181 07/20/2022 483 06/18/2022 125 04/13/2022 14 03/23/2022 12 02/24/2022 10 01/19/2022 10 12/23/2021 10 11/24/2021 11 10/27/2021 11 09/29/2021 10 09/01/2021 9 07/07/2021 8 06/09/2021 9 05/12/2021 8 04/14/2021 8 02/19/2021 9 12/09/2020 9 10/23/2020 9 09/27/2020 8 08/23/2020 8 07/26/2020 8 06/28/2020 8 03/28/2020 8 02/01/2020 8 01/01/2020 8 10/20/2019 8 09/22/2019 7 08/25/2019 8 07/28/2019 8 07/20/2019 8 07/14/2019 9 07/07/2019 8 06/20/2019 9 03/27/2019 7 09/12/2018 1,153 11/23/22 CBC + DIFF Component Ref Range & Units 4 d ago (11/23/22) 10 d ago (11/17/22) 4 wk ago (10/30/22) 1 mo ago (10/09/22) 2 mo ago (09/18/22) 3 mo ago (08/28/22) 3 mo ago (08/04/22) WBC 3.70 - 11.00 k/uL 7.10 11.10 High 10.41 8.33 9.60 7.97 11.19 High RBC 3.90 - 5.20 m/uL 3.94 3.89 Low 3.96 4.27 4.23 4.22 4.32 Hemoglobin 11.5 - 15.5 g/dL 10.7 Low 10.5 Low 10.9 Low 11.6 11.5 11.5 11.4 Low Hematocrit 36.0 - 46.0 % 33.8 Low 33.1 Low 33.5 Low 35.8 Low 35.5 Low 34.8 Low 34.9 Low MCV 80.0 - 100.0 fL 85.8 85.1 84.6 83.8 83.9 82.5 80.8 MCH 26.0 - 34.0 pg 27.2 27.0 27.5 27.2 27.2 27.3 26.4 MCHC 30.5 - 36.0 g/dL 31.7 31.7 32.5 32.4 32.4 33.0 32.7 RDW-CV 11.5 - 15.0 % 15.9 High 16.0 High 17.3 High 18.0 High 17.8 High 17.1 High 15.4 High Platelet Count 150 - 400 k/uL 148 Low 146 Low 132 Low 154 145 Low 138 Low 191 MPV 9.0 - 12.7 fL 9.5 10.0 10.0 10.5 9.8 9.7 9.9 Neutrophils % % 71.5 76.5 74.9 73.0 75.7 76.8 75.4 Abs Neut 1.45 - 7.50 k/uL 5.07 8.50 High 7.80 High 6.08 7.27 6.12 8.45 High Lymphocytes % % 18.0 14.0 13.6 13.9 13.8 13.8 13.0 Abs Lymph 1.00 - 4.00 k/uL 1.28 1.55 1.42 1.16 1.32 1.10 1.45 Monocytes % % 9.0 8.2 10.1 11.5 9.3 7.9 9.7 Abs [place] <0.87 k/uL 0.64 0.91 High 1.05 High 0.96 High 0.89 High 0.63 1.08 High Eosinophils % % 0.8 0.5 0.4 0.7 0.4 0.5 0.3 Abs Eosin <0.46 k/uL 0.06 0.06 0.04 0.06 0.04 0.04 0.03 Basophils % % 0.4 0.3 0.6 0.5 0.4 0.4 0.6 Abs Baso <0.11 k/uL 0.03 0.03 0.06 0.04 0.04 0.03 0.07 Immature Granulocytes % % 0.3 0.5 0.4 0.4 0.4 0.6 1.0 Abs Immature Gran <0.10 k/uL <0.03 0.05 0.04 0.03 0.04 0.05 0.11 High NRBC /100 WBC 0.0 0.0 0.0 0.0 0.0 0.0 0.0 Absolute nRBC <0.01 k/uL <0.01 <0.01 <0.01 <0.01 <0.01 <0.01 <0.01 Diff Type Auto Auto Auto Auto Auto Auto Auto Resulting Agency 11/23/22 COMP METABOLIC PANEL Component Ref Range & Units 4 d ago (11/23/22) 4 wk ago (10/30/22) 1 mo ago (10/09/22) 2 mo ago (09/18/22) 3 mo ago (08/28/22) 3 mo ago (08/04/22) 4 mo ago (07/20/22) Protein, Total 6.3 - 8.0 g/dL 7.5 7.6 7.6 7.3 7.1 7.0 7.6 Albumin 3.9 - 4.9 g/dL 4.3 4.5 4.3 4.4 4.3 4.3 4.6 Calcium, Total 8.5 - 10.2 mg/dL 9.5 9.2 9.7 9.7 9.9 9.0 9.4 Bilirubin, Total 0.2 - 1.3 mg/dL 0.2 0.3 0.4 0.3 0.4 0.4 0.6 Alkaline Phosphatase 34 - 123 U/L 95 121 112 115 114 93 83 AST 13 - 35 U/L 18 20 20 20 18 18 22 ALT 7 - 38 U/L 14 17 20 17 15 11 14 Glucose 74 - 99 mg/dL 94 110 High CM 100 High CM 106 High CM 106 High CM 115 High CM 216 High CM Comment: The [place] [employer] (ADA) provides guidance for cutoff values for fasting glucose and random glucose. The ADA defines fasting as no caloric intake for at least 8 hours. Fastingplasma glucose results between 100 to 125 mg/dL indicate increased risk for diabetes (prediabetes). Fasting plasma glucose results greater than or equal to 126 mg/dL meet the criteria for diagnosis of diabetes. In the absence of unequivocal hyperglycemia, results should be confirmed by repeat testing. In a patient with classic symptoms of hyperglycemia or hyperglycemic crisis, random plasma glucose results greater than or equal to 200 mg/dL meet the criteria for diagnosis of diabetes. Reference: Standards of Medical Care in Diabetes 2016, [place] [employer]. Diabetes Care. 2016.39(Suppl 1). BUN 7 - 21 mg/dL 23 High 33 High 25 High 21 26 High 23 High 34 High Creatinine 0.58 - 0.96 mg/dL 0.74 0.80 0.86 0.68 0.74 0.71 0.73 Sodium 136 - 144 mmol/L 137 137 141 138 139 137 136 Potassium 3.7 - 5.1 mmol/L 4.4 4.5 4.7 4.3 4.2 4.4 4.2 Chloride 97 - 105 mmol/L 105 102 103 104 104 102 101 CO2 22 - 30 mmol/L 24 26 27 26 28 24 23 Anion Gap 9 - 18 mmol/L 8 Low 9 11 8 Low 7 Low 11 12 Estimated Glomerular Filtration Rate >=60 mL/min/1.73m 86 78 CM 71 CM 92 CM 86 CM 90 CM 87 CM Comment: Estimated Glomerular Filtration Rate (eGFR) is calculated using the 2020 CKD-EPI creatinine equation. This equation utilizes serum creatinine, sex, and age as parameters. The creatinine assay has traceable calibration to isotope dilution-mass spectrometry. Refer to KDIGO guidelines for clinical interpretation. In patients with unstable renal function, e.g. those with acute kidney injury,the eGFR may not accurately reflect actual GFR. Resulting Agency [facility] 11/23/22 MAGNESIUM BLOOD Component Ref Range & Units 4 d ago (11/23/22) 4 wk ago (10/30/22) 1 mo ago (10/09/22) 2 mo ago (09/18/22) 3 mo ago (08/28/22) 3 mo ago (08/04/22) 4 mo ago (07/20/22) Magnesium 1.7 - 2.3 mg/dL 2.2 2.1 2.1 2.0 2.1 2.0 2.2 Resulting Agency [facility] 11/23/22 CT CHEST W IVCON IMPRESSION: No developing mass or adenopathy in the chest 11/23/22 AT ABD/PEL W IVCON IMPRESSION: Stable peritoneal soft tissue in the right pelvis No new developing mass or adenopathy ASSESSMENT & PLAN: 09/10/2020 - Dr. 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 Interval testing since last visit discussed, CA125 reviewed and within normal limits. Patient is up-to-date with health maintenance includingmammogram, colonoscopy and advanced directives. Reviewed issues of survivorship including sexual health after cancer treatment, mental health and support systems. Importance of cancer surveillance and early detection of recurrence reinforced. 10/28/2020- Heather Lutz NP (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 Advised her value is stable. Last CT scan was in March 2020. Will order CT of the chest abdomen and pelvis for reevaluation while on PARPi therapy. Patient would like to establish with Dr. Cote, will move her appointment with me from 12/[address] Dawson on 12/[address] scans the week before. Continue monthly labs while on PARPi therapy Patient verbalized an understanding and agreed with the plan. Instructed to call if she has any questions or concerns. 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 Patient expressed concern about receiving the COVID vaccine while taking Olaparib. I advised the patient to continue with the COVID vaccine and discussed findings that supported my recommendation with her. Patient is receptive to recommendation. I answered all of the patient's and patient's 's questions and addressed their concerns. Plan to RTC in March [address] before and in June 2021. Continue with monthly CBC, and CA 125 prior to office visit with me in [place]. Patient verbalized an understanding and agreed with the plan. 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 I reviewed the most recent CT results with the patient which showed no acute pathology, no suspicious pulmonary nodules, no thoracic lymphadenopathy in the chest, and no acute pathology, and no mass or lymphadenopathy in the abdomen and pelvis. Ms. Patel received the 2nd COVID vaccine in January, and reports experiencing hot flashes since that time. I believe that this might be due to the Lynparza. Ms. Patel also complains of leg cramps that onset at night. I recommend taking multivitamins daily, as well as eating a diet rich in Potassium. Ms. Patel will continue taking Lynparza until the last day in May. Plan to RTC on June 25, [address], CBC, and CA [address] results show no new evidence of disease, we will discuss stopping her PARP. We will discuss the cancer surveillance timeline at the next visit. 07/04/2021 Stop lynparza. Ok to stop protonix in 2-3 weeks after stopping lynparza. I recommend leaving port for one year. Discuss in one year. Discussed no scans needed unless concerning s/s of recurrence. CA 125 prior to each office visit. 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 Discussed she may have some improvement but hard to say at this point. Recommend KN95 with omicron variant. Discussed covid testing guidelines. Follow up in 3 months 10/01/2021 Impression: History of Ovarian Cancer, most recently had completed Olaparib . CA 125 is 10, stable, but she is worried because it has increased by 1 point. Discussed the significance of small changes in CA 125 and anxiety which often accompany's this. Plan: CA 125 and clinical examination in December. Vulvar dryness and itching. Will prescribe Lotrisone cream. Said she had this in past and it helped her. She will call office if symptoms of itching, and dryness don't resolve in the next couple of weeks. 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 CA 125 is stable. Some bladder symptoms at times. Intermittent. Discussed pelvic floor PT. Will trial melatonin for insomnia and some assistance with constipation. BMD ordered for osteopenia screening. 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 No clinical evidence of disease. She has been off her PARP for approximately 9 months. Repeat CA 125 in 3 months. If CA 125 value is >15, (the roberto value,) will check CT scan as well. Reviewed signs and symptoms of recurrence and told to call with persisting concerns. Follow up in clinic in June for continued surveillance. 04/22/2022 She is feeling a bit better. I reviewed the recent labs she had. Nothing actionable. No clinical evidence of diverticulitis or UTI. She has had a flu shot. I advise getting the covid bivalent booster. CA 125 again in June a couple days before she sees me. She is in agreement with these plans. 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 Recently her CA 125 has jumped from 14 (04/13/22) to 125 (06/18/22). PLAN CT Chest & Abd/Pel to be done in [place] early next week. Contact clinic if CT is scheduled forlater than Wednesday to reschedule virtual visit. Follow up Wednesday07/01/[address] to review results of CT scan and discuss her care plan. 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 Would be considered [place] sensitive. Cancer appears to be involving distal ileum, and possibly sigmoid colon and right psoas. There may be sub-centimeter lesions elsewhere in the abdominal cavity. These findings were reviewed in detail with . Options for management include secondary debulking, possibly with HIPEC, followed with chemotherapyvs chemotherapy alone. To better assess whether secondary debulking would be appropriate, a pelvic MRI will be checked with focus on the possible involvement of the psoas muscle and surrounding blood vessels. If secondary debulking not advised, a CT guided biopsy of the recurrence will be considered as thissample can be sent for somatic tumor testing which can guide future treatment decisions. PLAN Review her case at the next Decontamination Technician/Onc Tumor Conference. MRI to be done in [place], aim for later this week. Follow up Wednesday07/08/22 to review Tumor Board discussion and MRI results. We will confirm the care plan at this time. 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 Her case was discussed in Tumor Board on 07/07/22. 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 If Bevacizumab is started, beginning with cycle number 3 of chemotherapy, consider single agent Bevacizumab following several cycles of carboplatin, Paclitaxel, and Bevacizumab Side effects of treatment plan reviewed, questions answered to patient's satisfaction. She is agreeable with this plan. Symptoms concerning for worsening disease reviewed. Instructed to contact this clinic if she has any questions. PLAN She wishes to receive her chemotherapy in [place] with Dr.Paul Eve DO. A copy of this note will be forwarded to him today. I will reach out to to fascilitate an appointment [phone] Follow up with me at the [facility] 2 weeks after her second cycle of chemotherapy, with a CT prior to that appointment. Will decide if Bevacizumab should be added at this time. 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 She is s/p cycle two of chemotherapy with Carboplatin and Paclitaxel. No unexpected toxicity. Improvement of disease burden on CT Discussed potential addition of Bevacizumab to current chemotherapy plan. Given indication of persistent tethering of cancer to right colon on CT, Bevacizumab is not iadvised at this time. PLAN Continue chemotherapy with carbo/taxol under 's supervision. Repeat CT after cycle 6, will place order for this. Follow up in this office after cycle 6, to review the CT and discuss maintenance therapy options. 08/31/22 Telephone Call with Corinne Santana RN Spoke with pt who reports that she was given chemo today at [facility] and was accidentally given michael along with her carbo/taxol which she was not supposed to receive per her OV with Eve on 08/28. Pt is still very anxious r/t the error and is calling to be certain the [facility] is aware of the situation. Pt is questioning whether she should expect her bowel to perforate due to this mistake.Explained that this is a known but relatively rare side effect. There is no certainty it will or will not happen. Reviewed S&S of acute abd that would require immediate medical attention. Ensuredthat pt has on-call employee relations consultant phone number. Pt states she was also given the on-call onc number at [facility]. Also explained that the med error will be reported and go through the proper channels toensure proper review. Pt remains anxious and requests to speak directly to [facility]. Pt was offereda televisit on 09/02 at 0900 which she accepted. The appt will be scheduled. Pt is appreciative of conversation and information discussed. 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 She is s/p cycle three of chemotherapy with Carboplatin and Paclitaxel. Bevacizumab was given with cycle 3, which was not planned based on CT findings). Presently no concerning symptoms related to bevacizmab administration. Explained that bevacizumab is an approriate agent in her type of cancer, and though not planned to have been given, holding this agent prior to last cycle of chemotherapy was a judgement call. We reviewed serious but uncommon side effect of bowel perforation or peritonitis. Reviewed other side effects of bevacizumab. Reviewed alternative names of bevacizumab including the version she received, Zirabev. Addressed her anxiety surrounding the unplanned dose of bevacizumb given. PLAN Repeat CT after cycle 4 of chemotherapy (taxol and carboplatin) Will readdress potential role for bevacizumab in treatment upon review of future scans Follow up as planned in the office to discuss scans & care plan. 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 Most recent CT imaging showing stable disease burden. 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 Discussed option of continuing with current therapy with understanding that future chemotherapy will not likely result in significant reduction in tumor burden, but stable disease for some time is possible, though with high chance of worsening chemotherapy associated toxicity.. Other treatment options discussed included chemo holiday vs clinical trial vs potential surgery. PLAN Will aim to present ' case at Tumor Board at next available presentation. Follow up via telephone visit to discuss Tumor Board's recommendations & determine her care plan. Ok to go for eye exam Order placed for urine culture to be completed at [facility]. Signs and symptoms of worsening disease reviewed. Contact this office with any questions or concerns prior to that appointment. Documentation from my notes of previous visit of 08/25/2022 was copied and pasted, documentation has been reviewed and edited as necessary and is current for today. ATTESTATION Scribe Attestation: By signing my name below, I,Jayla Bridges, attest that this documentation has been prepared under the direction and in the presence of Fang Cote MD . Electronically Signed: Chasity Singleton. November 27, 2022 3:13 PM. Provider Attestation: I, Dr. Fang Cote, personally performed the services described in this documentation. All medical record entries made by the gillianibmisa were at my direction and in my presence. I have reviewed thechart and discharge instructions (if applicable) and agree that the record reflects my personal perf ormance and is accurate and complete. Electronically Signed: Fang Cote MD. December 06, 2022 10:35 PM documented in this encounterSt. [facility] History of Present illness Narrative* Rita Braden RT(R) - 11/23/2022 10:20 AM EDT Radiology Service Progress Note PATIENT NAME: Savana Patel DATE OF SERVICE: November 23, 2022 TIME: 1:40 PM PATIENT IDENTITY VERIFICATION COMPLETED USING TWO (2) IDENTIFIERS: Name and Date of confirmedby patient verbally. FALL SCREENING: Has the patient had 2 falls in the last year or 1 fall with injury or currently using an Ambulatory Assistive Device (Walker, Cane, Wheelchair, Crutches, etc.)? No PATIENT GENDER DATA: Female. status: : No status: NO. PATIENT RELEVANT IMPLANT DATA REVIEWED: Yes RADIOLOGY DEPARTMENT: CT; Exam(s) Completed: Chest Abdomen Pelvis PERIPHERAL IV DATA: power port accessed by Xierkang SIGNED BY: RT Laurie(R) November 23, 2022 1:40 PM documented in this encounterSt. Anthony'[facility]05-30-2023 Miscellaneous Notes* Telephone Encounter - Hafsa Sharma Ma - 11/17/2022 12:42 PM EDT Patient was notified Hafsa Sharma Ma * Telephone Encounter - Shay Cardoza MD - 11/17/2022 11:18 AM EDT Let patient know CC and platelets were stable documented in this encounterSt. [facility]05-26-2023 Instructions* Patient Instructions* Shay Cardoza MD - 11/13/2022 4:34 PM EDT Get blood draw at the infusion center on Wednesday11/17/2022 at 10:45 AM Please get some generic K-Y gel and place some in each nostril three times a day using a finger. documented in this encounterSt. [facility]05-26-2023 History of Present illness Narrative* Shay Cardoza MD - 11/13/2022 4:08 PM EDT Chief Complaint Patient presents with: URI HPI Savana Patel is a 72 year old female who presents here today for Above Complaints.. Has mariaelena having nose bleeds in the morning and sometimes at night and during the day. Nose feels dryand feels scabs inside the nose. Has been having rhinorrhea. No facial pain. No fevers or chills. No ear pain. Some post nasal drainage but no sore throat. Will sometimes cough up some clear mucus. No shortness of breath, wheezing, nausea, vomiting, diarrhea, body aches or changes in taste or smell. Past medical history, appointments, medications, allergies reviewed. Previous Medical History PAST MEDICAL HISTORY Diagnosis Date Actinic keratosis 04/12/2007 Advance directive discussed with patient 08/24/2022 Discussed 08/2022: Up to date DEANDRE positive 07/25/2016 Rheum felt just Arthritis. 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 Constipation 04/04/2015 Dysmetabolic syndrome X 12/28/2007 Essential hypertension 04/04/2015 GERD without esophagitis 07/24/2020 Hemorrhage of gastrointestinal tract, unspecified History of left mastectomy 05/05/2018 Impaired fasting glucose 11/21/2007 Internal hemorrhoids without mention of complication Leg cramps 01/08/[address] 07/31/2021 DPA is Living will on file 07/31/2021 DPA: Javier ( ) Malignant neoplasm of both ovaries (HCC) 10/26/2018 Mixed hyperlipidemia 04/04/2015 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 multiple joints 07/27/2016 Osteopenia 12/28/2012 Other acne 05/29/2008 Other seborrheic keratosis 02/18/2007 Panic attacks 07/18/2012 Primary insomnia 01/29/2022 SOLAR LENGINES///DYSCHROMIA OTHER 02/18/2007 Thrombocytopenia (HCC) 01/29/2022 chronic Trigger ring finger of left hand 07/24/2020 Trigger ring finger of right hand 07/24/2020 Previous Surgical History PAST SURGICAL HISTORY Procedure Laterality Date BX BREAST PERC VACUUM/ROTN 10/26/07 LEFT COLONOSCOPY FLX DX W/COLLJ SPEC WHEN PFRMD 07/20/05 COLONOSCOPY FLX DX W/COLLJ SPEC WHEN PFRMD 05/01/16 normal - 10 year follow up LIG/TRNSXJ FLP TUBE ABDL/VAG APPR UNI/BI Tubal ligation MAST RAD W/PECTORAL MUSCLES AXILLARY LYMPH NODES 11/26 Left PAST SURGICAL HISTORY OF BACK SURGERY PAST SURGICAL HISTORY OF 10/06/2018 Exploratory laparotomy, total abdominal hysterectomy, bilateral salpingooophorectomy, and bladder and posterior culdesac peritoneum resected en bloc, omentectomy PLCMT LOCALZTN CLIP,PERC,DURING BREAST BX 10/26/07 LEFT S PORT-A-CATH [id number] 11/09/2018 TONSILLECTOMY PRIMARY/SECONDARY <AGE 12 Tonsillectomy Family History FAMILY HISTORY Problem Relation Age of Onset Ovarian cancer Mother dx 50s Arthritis Father Cancer Maternal Aunt 7 aunts with breast or ovarian cancer. details unknown Patient Allergies ALLERGIES Allergen Reactions Penicillins Rash Sulfa (Sulfonamide * Unknown Current Medications Current Outpatient Medications on File Prior to Visit Medication Sig HYDROcodone-acetaminophen (NORCO) 5-325 mg per tablet Take 1-2 tablets by mouth every 6 hours as needed for pain. atorvastatin (LIPITOR) 10 mg tablet Take 1 tablet by mouth once daily. ramipril (ALTACE) 10 mg capsule Take 1 capsule by mouth once daily. promethazine (PHENERGAN) 25 mg tablet Take 1 tablet by mouth every 6 hours as needed. FOR NAUSEA DULoxetine (CYMBALTA) 30 mg capsule TAKE 1 CAPSULE BY MOUTH ONCE DAILY (Patient not taking: Reported on 11/13/2022) docusate sodium (COLACE ORAL) Take 1 tablet by mouth once daily. heparin 100 unit/mL injection NURSING USE ONLY: USE FOR IMPLANTED VASCULAR ACCESS DEVICE (IVAD) FLUSH. AMBULATORY/OUTPATIENT: PLEASE REORDER UPON HOSPITAL DISCHARGE May access implanted vascular access device (IVAD) as needed for treatment. Before de-accessing port, flush with 10-20ml normal saline and follow with 5 mL heparin (100 units/mL) (if no heparin allergy). De-access port on treatment completion. Surgical Lubricant Jelly gel For MRI Female Pelvis, MRI department to provide. Administer intra-vaginal Surgilube immediately prior the MRI procedure (total amount to patient toleranace). iv contrast (will be provided with radiology test) CT Chest ABD/PEL-Inject, intravenously, once for1 dose.No IV access, insert saline lock prior to the beginning of sedation, infusion, injection of imaging exam. Discontinue saline lock post exam. If Pt. has a central line or IVAD, may access for administration according to line specific nursing protocol. Once exam is complete flush line and de-access according to line specific nursing protocol in the CT contrast administration guidelines link. enteric contrast (will be provided with radiology test) For CT CHESTABD/PEL W IVCON Routine order Administer, As Directed One Time Only, via Oral, Rectal, both Oral and Rectal, Enteric Tube, Stoma orIndwelling Catheter, Enteric Contrast as designated per enteric contrast guidelines iv contrast (will be provided with radiology test) CT Chest ABD/PEL-Inject, intravenously, once for1 dose.No IV access, insert saline lock prior to the beginning of sedation, infusion, injection of imaging exam. Discontinue saline lock post exam. If Pt. has a central line or IVAD, may access for administration according to line specific nursing protocol. Once exam is complete flush line and de-access according to line specific nursing protocol in the CT contrast administration guidelines link. enteric contrast (will be provided with radiology test) For CT CHESTABD/PEL W IVCON Routine order Administer, As Directed One Time Only, via Oral, Rectal, both Oral and Rectal, Enteric Tube, Stoma orIndwelling Catheter, Enteric Contrast as designated per enteric contrast guidelines No current facility-administered medications on file prior to visit. Social History Social History Tobacco Use Smoking status: Never Smokeless tobacco: Never Vaping Use Vaping Use: Never used Substance Use Topics Alcohol use: No Drug use: No Review of Symptoms REVIEW OF SYSTEMS See HPI EXAM: BP 118/64 (BP Site: Right Arm, BP Position: Sitting, BP Cuff Size: Regular Adult) Pulse 96 Temp37.5 C (99.5 F) (Tympanic) Resp 18 Wt 60.3 kg (133 lb) SpO2 97% BMI 22.83 kg/m General Appearance: Well appearing, alert, in no acute distress, well-hydrated, well nourished.. Eyes: Anicteric sclera. Pupils are equally round and reactive to light. Extraocular movements are intact. . Ears: External ears normal, canals clear. Nose/Sinuses: septum looks ok. The anterior nasal passages on both sides has multiple dried scabs. . Oropharynx: Lips, mucosa, and tongue normal, teeth and gums normal, oropharynx normal. Neck: Supple, no adenopathy; thyroid symmetric, normal size, no bruits. Lungs: Lungs clear to auscultation. No wheezing, rhonchi, rales.. Heart: RRR without murmur, gallop, or rubs. No ectopy. Health Maintenance List DTAP,TDAP,TD(2 - Td or Tdap) due on 08/25/2023 SHINGRIX VACCINE(1 of 2) due on 08/25/2023 ANNUAL PCP TEAM CHRONIC DISEASE VISIT due on 08/25/2023 MAMMOGRAM due on 08/29/2023 BP CONTROLLED (<130/80) due on 10/31/2023 DIABETES SCREEN due on 10/30/2025 COLORECTAL CANCER SCREENING due on 05/01/2026 LIPID SCREEN due on 08/04/2027 BONE DENSITY Completed ADVANCE DIRECTIVE DISCUSSION Completed DEPRESSION ASSESSMENT Completed HEPATITIS C SCREENING Completed COVID-19 VACCINE Completed PNEUMOCOCCAL: 65+ Completed INFLUENZA Discontinued Data reviewed A/P ASSESSMENT/PLAN: 1. Bleeding from the nose - ICD9: 784.7, ICD10: R04.0 (primary diagnosis) - this does not look like a sinusitis - patient to use K-Y gel in each nostril at least 3 times a day - consult to ENT - will check CBC 2. Jaw pain - ICD9: 784.92, ICD10: R68.84 - will place on Celebrex 200 mg a day for 2 weeks 3. Thrombocytopenia (HCC) - ICD9: 287.5, ICD10: D69.6 Check - CBC + DIFF on Avis since needs drawn at infusion center and no longer open today. Shay Cardoza MD documented in this encounterSt. [facility] Nurse Note* Kristan Hernández LPN - 11/03/2022 1:58 PM EDT Patient presents with: Imm/Inj Pt is identified by name and birthdate: Yes. Allergies and medications reviewed. Latex allergy? No. Does this patient have: Unplanned weight loss or gain of greater than 10 pounds, or a change of appetite over the last year? No Does the patient have any concerns about safety in the home/falls? Not at risk for falls Has the patient fallen in the past year? No Does the patient have difficulty performing or completing routine daily living activities? No Does this patient have concerns about personal safety? No Is patient having pain? Pain: No=0 (pain 0 on a scale of 0-10). Health Maintenance: Reviewed and updated. Does patient have MyChart access or Caregiver proxy: yes Pt/Caregiver willingness and readiness to learn assessed: Yes. Barriers: none Fulphilia injection administered, right arm,(only) tolerated well, no immediate adverse reactions noted. Kristan Hernández LPN documented in this encounterSt. Anthony'[facility]04-25-2023 Nurse Note* Kristan Hernández LPN - 10/13/2022 2:15 PM EDT Patient presents with: Imm/Inj Pt is identified by name and birthdate: Yes. Allergies and medications reviewed. Latex allergy? No. Does this patient have: Unplanned weight loss or gain of greater than 10 pounds, or a change of appetite over the last year? No Does the patient have any concerns about safety in the home/falls? Not at risk for falls Has the patient fallen in the past year? No Does the patient have difficulty performing or completing routine daily living activities? No Does this patient have concerns about personal safety? No Is patient having pain? Pain: No=0 (pain 0 on a scale of 0-10). Health Maintenance: Reviewed and updated. Does patient have MyChart access or Caregiver proxy: yes Pt/Caregiver willingness and readiness to learn assessed: Yes. Barriers: none Fulphilia injection administered, tolerated well, no immediate adverse reactions noted. Kristan Hernández LPN documented in this encounterSt. Anthony'[facility]04-24-2023 History of Present illness Narrative* Latoya Nathan RN - 10/12/2022 8:02 AM EDT No changes to assessment from OV 10/09/22. Latoya Nathan RN documented in this encounterSt. Anthony'S [facility]04-21-2023 History of Present illness Narrative* Js Cruz, - 10/09/2022 10:14 AM EDT Diagnosis: 1) Recurrent high grade serous carcinoma of the ovary. 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 Initially underwent pelvic ultrasound on 09/01/2018. Uterus appeared normal. The endometrial stripe was 2.3 mm. Right and left ovaries appeared normal. However there was a large amount of free fluid in the pelvic cul-de-sac. CT A/P 09/08/2018: Liver: No mass. Homogeneous texture. Biliary: No ductal dilatation is seen. Gallbladder is unremarkable. Spleen: Spleen is unremarkable. Pancreas: No mass or duct dilation. Adrenals: Adrenal glands are unremarkable. Kidneys: No mass, calculus or hydronephrosis is seen. GI tract: No bowel dilatation is seen. No evidence of obstruction. Lymph nodes: No evidence of adenopathy. Mesentery/Peritoneum: There is increased soft tissue density best seen in the coronal views extending from the lower abdomen into the pelvic area. This could represent peritoneal involvement with tumor. This is seen on coronal image 37 and axial images 99 through 122. It extends across the anterior aspect of the pelvic area seen on axial image 124. Vasculature: No evidence of dilatation of the abdominal aorta. CT PELVIS: Pelvis: There is a large amount of free fluid or loculated fluid in the pelvis suggesting that there could be an enhancing rim surrounding this fluid is seen on image 127 and measures 10.6 x 6.1 cm. Bones/Soft Tissues: No significant findings identified. Lower thorax: Unremarkable. CA125 was 1153 U/mL. Had employee relations consultant onc evaluation and CT chest unremarkable. Underwent exploratory laparotomy, optimal tumor bulking, total abdominal hysterectomy, bilateral salpingo-oophorectomy, resection of bladder cul-de-sac and pelvic peritoneal disease along with resection of omental caking with super colic omentectomy on 10/06/2018. Pathology: FINAL DIAGNOSIS 1. 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 2. 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 3. Uterus, cervix, bilateral ovaries and fallopian tubes, and bladder/pelvic peritoneum, hysterectomy and excision (C) Left fallopian tube - High grade serous carcinoma (see comment and synoptic report). Right fallopian tube - Positive for involvement by high grade serous carcinoma. Bilateral ovaries - Positive for involvement by high grade serous carcinoma. Uterine serosa - Positive for involvement by high grade serous carcinoma. Bladder/pelvic peritoneum - Positive for involvement by high grade serous carcinoma. Endometrium - Inactive endometrium. Myometrium - Negative for malignancy. Cervix - Negative for malignancy. SYNOPTIC REPORT OF BRAUN PATHOLOGIC FINDINGS UTERUS, CERVIX, BILATERAL TUBES AND OVARIES, BLADDER, AND PELVIC PERITONEUM: Procedure: Total hysterectomy and bilateral salpingo-oophorectomy Omentectomy Peritoneal biopsies Specimen Integrity: Left fallopian tube serosa intact Primary Tumor Site: Left fallopian tube Ovarian Surface Involvement: Present Specify laterality (if applicable): Bilateral Fallopian Tube Surface Involvement: Present Specify laterality (if applicable): Bilateral Tumor Size: Greatest dimension: 1.6 cm Histologic Type: Serous carcinoma Histologic Grade: Not applicable Two-tier grading System: High grade Implants: Not applicable/not sampled Involvement of other tissues/organs: Right ovary Left ovary Right fallopian tube Pelvic peritoneum Omentum Other organs/tissues (specify): Uterine serosa Largest extrapelvic peritoneal focus, macroscopic (greater than 2 cm) Peritoneal Ascitic Fluid, Not submitted/unknown Treatment Effect: No known presurgical therapy Regional Lymph Nodes: No nodes submitted or found Pathologic Stage Classification (pTNM, AJCC 8th ed) TNM Descriptors: Not applicable Primary Tumor (pT): pT3c: Macroscopic peritoneal metastasis beyond pelvis more than 2 cm in greatest dimension with or without metastasis to the retroperitoneal lymph nodes (includes extension to capsule of liver and spleen without parenchymal involvement of either organ) Regional Lymph Nodes (pN): pNX: Cannot be assessed Distant Metastasis (pM): Not applicable/Not confirmed pathologically in this case Previous therapy: 1) 11/11/2018 - 02/03/2019: PACLITAXEL 80 D1,8,15 CARBOPLATIN 6 D1 - Q21D s/p 4 cycles. *neutropenia/thrombocytopenia causing treatment delay. Neulasta OnPro added; switch to Q21D dosing of Taxol with cycles 5 & 6 02/23/2019 - 03/17/2019: PACLITAXEL 135 D1 CARBOPLATIN 6 D1 - Q21D s/p 2 cycles. 2) 06/30/2019 - 06/20/2021: olaparib (LYNPARZA) 150 mg tablet; 300 mg BID. CTs 06/29/2022: Mesentery/Peritoneum: * New 0.4 cm anterior mesenteric fat nodule (8:57) * Confluent infiltrative soft tissue in RIGHT false pelvis surrounding the terminal ileum and ascending colon (cecum deep in pelvis) and probably affecting the sigmoid colon; difficult to precisely measure as it envelops bowel but including bowel measures approximately 4.5 x 2.9 cm (8:101); process extends to the RIGHT psoas muscle * Several small subtle anterior mesenteric fat nodules * No free abdominal fluid MRI pelvis 07/02/2022: Similar imaging findings since CT 06/29/2022, redemonstrating pelvic peritoneal/serosal carcinomatosis involving segments of bowel predominantly in the right anterior pelvis, with confluent soft tissue encasing the proximal ascending colon and causing relative upstream dilation of the low-lying cecum suggesting developing colonic obstruction. No small bowel dilation. No pelvic lymphadenopathy. Recommended to retry carbo/paclitaxel with potential addition michael if disease clears the bowel. Current therapy: 1) Carboplatin/paclitaxel. Presents for ongoing oncologic management. Evaluation for cycle #4. Interim history: Still good appetite. No nausea. Constipated first few days following cycle. MOM helps. Otherwise, regular BMs with formed stools. No black or bloody stools. Subjectively can empty bladder when urinates. Occasional stress incontinence. Mild fingertip and toe numbness. Fingers a little worse--hard time turning pages. Can write and button buttons. Toes stable. More pain in knees when first walking. Lower legs aching more. No fevers. PMH, medications and allergies personally reviewed by me today. Any changes documented in appropriate section. ROS: Constitutional: Denies episodes of fever and night sweats. Neuro: Denies MACHADO, vertigo, dizziness and imbalance. HEENT: No recent change in voice, vision or hearing. Resp: Denies cough, wheeze and hemoptysis. Denies shortness of breath at rest. Denies OLIVER. CVS: Denies exertional chest pain, PND, orthopnea and LE edema. GI: Denies dysgeusia. Denies symptoms of stomatitis. Denies dysphagia and odynophagia. : Denies dysuria or gross hematuria. Endo: Denies hot flashes. Denies polyuria and polydipsia. Denies heat and cold intolerance. Musculoskeletal: Denies bone, back, joint and muscular pain. Derm: Denies rash. Denies jaundice and diffuse pruritis. Heme: Denies unusual bleeding and unexplained bruising. Psych: Normal mood. PHYSICAL EXAM: Vitals: Blood pressure 118/66, pulse 75, temperature 36.8 C (98.2 F), temperature source Temporal, weight 60.6 kg (133 lb 8 oz). Well-appearing and in no acute distress. EYES: Sclerae are anicteric bilaterally. LYMPHATIC: There is no palpable cervical, supraclavicular, axillary or inguinal adenopathy. RESPIRATORY: Inspiratory breath sounds are of normal intensity in all bernabe. No rales, wheezes or rhonchi. Expiratory phase is normal. CARDIOVASCULAR: Rhythm is regular. Normal intensity S1/S2. There is no gallop or murmur. ABDOMEN: The abdomen is nondistended. It is soft and nontender throughout. No mass appreciated. No fluid wave. Extremities: No swelling or edema. SKIN: No jaundice or rash. No petechiae. 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 No focal motor weakness. DTRs are symmetric and normal. LABS: Component Latest Ref Rng & Units 10/09/2022 WBC 3.70 - 11.00 k/uL 8.33 RBC 3.90 - 5.20 m/uL 4.27 Hemoglobin 11.5 - 15.5 g/dL 11.6 Hematocrit 36.0 - 46.0 % 35.8 (L) MCV 80.0 - 100.0 fL 83.8 MCH 26.0 - 34.0 pg 27.2 MCHC 30.5 - 36.0 g/dL 32.4 RDW-CV 11.5 - 15.0 % 18.0 (H) Platelet Count 150 - 400 k/uL 154 MPV 9.0 - 12.7 fL 10.5 Neut% % 73.0 Abs Neut (ANC) 1.45 - 7.50 k/uL 6.08 Lymph% % 13.9 Abs Lymph 1.00 - 4.00 k/uL 1.16 [place]% % 11.5 Abs [place] <0.87 k/uL 0.96 (H) Eosin% % 0.7 Abs Eosin <0.46 k/uL 0.06 Baso% % 0.5 Abs Baso <0.11 k/uL 0.04 Immature Gran % % 0.4 IMMATURE GRANS (ABS) <0.10 k/uL 0.03 NRBC /100 WBC 0.0 Absolute nRBC <0.01 k/uL <0.01 DTYPE Auto Magnesium 1.7 - 2.3 mg/dL 2.1 ASSESSMENT/PLAN: (C56.1, C56.2) Malignant neoplasm of both ovaries (HCC) (primary encounter diagnosis) Assessment: -KPS is 90%. -BRCA2 mutation (tested 04/2019) -Baseline CA125 1153 U/mL. -Recent progressive disease. Serosal bowel involvement. Symptoms were minimal. Agree with and recommended carboplatin and paclitaxel with the aim of adding bevacizumab if disease response and clears the bowel. -Again addressed goals of care. She understands the goal of therapy is increasing overall survival and palliation of symptoms. -Lower abdominal symptoms from ovarian cancer improved following 2 cycles. -CA125 now normal. -Bevacizumab was administered with cycle 3. Please see infusion encounter note. Fortunately no bowel issues as a consequence. -Personally reviewed CT images with her in comparison to June's CT. [place]. -Discussed plan to repeat CT after cycle #[address] Cote's opinion on maintenance therapy--with BRCA2 mutation, could consider PARP inhibitor as maintenance. -Discussed trial of Cymbalta. Plan: -Okay for cycle #5 carbo/Taxol Wednesday. -Hold bevacizumab. -Recommended a dose of milk of magnesia Wednesday evening and again on Wednesday if no bowel movement on Wednesday. She will continue to take Colace on a daily basis. -Monitor CA125. -CT scan following cycle #6. -Trial of Cymbalta for neuropathy. Portions of this documentation were copied and pasted from previous office visit notes in order to provide a cohesive continuity of the history. The note has been reviewed and edited and updated as necessary. I spent a total of 30 minutes on the date of the service which included preparing to see the patient, [id number] patient care, completing clinical documentation, obtaining and/or reviewing separately obtained history, performing a medically appropriate examination, counseling and educating the pat ient/family/caregiver, communicating with other HCPs (not separately reported), independently interpreting results (not separately reported), and communicating results to the patient/family/caregiver. Js Cruz DO documented in this encounterSt. [facility]04-13-2023 History of Present illness Narrative* Lilia Stevens RN - 10/01/2022 12:20 PM EDT Patient is here for IVAD port flush per [facility] protocol. IVAD is located in right upper chest. Site cleansed with Chloraprep IVAD accessed with a #20 gauge 3/4 non-coring Gripper needle Blood Return: Good Flushed with: 20 ml Normal Saline and accessed for CT scan Non-coring needle removed. Kept accessed. Port site negative for redness, edema or tenderness. Patient tolerated procedure well. documented in this encounterSt. Anthony'[facility]04-13-2023 History of Present illness Narrative* Rita Braden RT(R) - 10/01/2022 11:20 AM EDT Radiology Service Progress Note PATIENT NAME: Savana Patel DATE OF SERVICE: October 01, 2022 TIME: 12:25 PM PATIENT IDENTITY VERIFICATION COMPLETED USING TWO (2) IDENTIFIERS: Name and Date of confirmedby patient verbally. FALL SCREENING: Has the patient had 2 falls in the last year or 1 fall with injury or currently using an Ambulatory Assistive Device (Walker, Cane, Wheelchair, Crutches, etc.)? No PATIENT GENDER DATA: Female. status: : No status: NO. PATIENT RELEVANT IMPLANT DATA REVIEWED: Yes RADIOLOGY DEPARTMENT: CT; Exam(s) Completed: Chest Abdomen Pelvis PERIPHERAL IV DATA: power port accessed by Xierkang SIGNED BY: RT Laurie(R) October 01, 2022 12:25 PM documented in this encounterSt. Anthony'S Hospital04-04-2023 Nurse Note* Kristan Hernández LPN - 09/22/2022 2:00 PM EDT Patient presents with: Imm/Inj Pt is identified by name and birthdate: Yes. Allergies and medications reviewed. Latex allergy? No. Does this patient have: Unplanned weight loss or gain of greater than 10 pounds, or a change of appetite over the last year? No Does the patient have any concerns about safety in the home/falls? Not at risk for falls Has the patient fallen in the past year? No Does the patient have difficulty performing or completing routine daily living activities? No Does this patient have concerns about personal safety? No Is patient having pain? Pain: No=0 (pain 0 on a scale of 0-10). Health Maintenance: Reviewed and updated. Does patient have MyChart access or Caregiver proxy: yes Pt/Caregiver willingness and readiness to learn assessed: Yes. Barriers: none Fulphilia injection administered, right arm, tolerated well, no immediate adverse reactions noted. Kristan Hernández LPN documented in this encounterSt. Anthony'[facility]03-31-2023 History of Present illness Narrative* Lorna Diamond, RT(R) - 09/18/2022 10:40 AM EDT Radiology Service Progress Note PATIENT NAME: Savana Patel DATE OF SERVICE: September 18, 2022 TIME: 11:12 AM PATIENT IDENTITY VERIFICATION COMPLETED USING TWO (2) IDENTIFIERS: Name and Date of confirmedby patient verbally. FALL SCREENING: Has the patient had 2 falls in the last year or 1 fall with injury or currently using an Ambulatory Assistive Device (Walker, Cane, Wheelchair, Crutches, etc.)? No PATIENT GENDER DATA: Female. status: : No status: NO. PATIENT RELEVANT IMPLANT DATA REVIEWED: Not Applicable RADIOLOGY DEPARTMENT: General X-ray: Exam(s) Completed: Lower Extremity X- Ray(s): Knee, AP / LAT Bilateral PERIPHERAL IV DATA: Not applicable SIGNED BY: RT Sammi(R) September 18, 2022 11:12 AM documented in this encounterSt. 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 Initially underwent pelvic ultrasound on 09/01/2018. Uterus appeared normal. The endometrial stripe was 2.3 mm. Right and left ovaries appeared normal. However there was a large amount of free fluid in the pelvic cul-de-sac. CT A/P 09/08/2018: Liver: No mass. Homogeneous texture. Biliary: No ductal dilatation is seen. Gallbladder is unremarkable. Spleen: Spleen is unremarkable. Pancreas: No mass or duct dilation. Adrenals: Adrenal glands are unremarkable. Kidneys: No mass, calculus or hydronephrosis is seen. GI tract: No bowel dilatation is seen. No evidence of obstruction. Lymph nodes: No evidence of adenopathy. Mesentery/Peritoneum: There is increased soft tissue density best seen in the coronal views extending from the lower abdomen into the pelvic area. This could represent peritoneal involvement with tumor. This is seen on coronal image 37 and axial images 99 through 122. It extends across the anterior aspect of the pelvic area seen on axial image 124. Vasculature: No evidence of dilatation of the abdominal aorta. CT PELVIS: Pelvis: There is a large amount of free fluid or loculated fluid in the pelvis suggesting that there could be an enhancing rim surrounding this fluid is seen on image 127 and measures 10.6 x 6.1 cm. Bones/Soft Tissues: No significant findings identified. Lower thorax: Unremarkable. CA125 was 1153 U/mL. Had employee relations consultant onc evaluation and CT chest unremarkable. Underwent exploratory laparotomy, optimal tumor bulking, total abdominal hysterectomy, bilateral salpingo-oophorectomy, resection of bladder cul-de-sac and pelvic peritoneal disease along with resection of omental caking with super colic omentectomy on 10/06/2018. Pathology: FINAL DIAGNOSIS 1. 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 2. 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 3. Uterus, cervix, bilateral ovaries and fallopian tubes, and bladder/pelvic peritoneum, hysterectomy and excision (C) Left fallopian tube - High grade serous carcinoma (see comment and synoptic report). Right fallopian tube - Positive for involvement by high grade serous carcinoma. Bilateral ovaries - Positive for involvement by high grade serous carcinoma. Uterine serosa - Positive for involvement by high grade serous carcinoma. Bladder/pelvic peritoneum - Positive for involvement by high grade serous carcinoma. Endometrium - Inactive endometrium. Myometrium - Negative for malignancy. Cervix - Negative for malignancy. SYNOPTIC REPORT OF BRAUN PATHOLOGIC FINDINGS UTERUS, CERVIX, BILATERAL TUBES AND OVARIES, BLADDER, AND PELVIC PERITONEUM: Procedure: Total hysterectomy and bilateral salpingo-oophorectomy Omentectomy Peritoneal biopsies Specimen Integrity: Left fallopian tube serosa intact Primary Tumor Site: Left fallopian tube Ovarian Surface Involvement: Present Specify laterality (if applicable): Bilateral Fallopian Tube Surface Involvement: Present Specify laterality (if applicable): Bilateral Tumor Size: Greatest dimension: 1.6 cm Histologic Type: Serous carcinoma Histologic Grade: Not applicable Two-tier grading System: High grade Implants: Not applicable/not sampled Involvement of other tissues/organs: Right ovary Left ovary Right fallopian tube Pelvic peritoneum Omentum Other organs/tissues (specify): Uterine serosa Largest extrapelvic peritoneal focus, macroscopic (greater than 2 cm) Peritoneal Ascitic Fluid, Not submitted/unknown Treatment Effect: No known presurgical therapy Regional Lymph Nodes: No nodes submitted or found Pathologic Stage Classification (pTNM, AJCC 8th ed) TNM Descriptors: Not applicable Primary Tumor (pT): pT3c: Macroscopic peritoneal metastasis beyond pelvis more than 2 cm in greatest dimension with or without metastasis to the retroperitoneal lymph nodes (includes extension to capsule of liver and spleen without parenchymal involvement of either organ) Regional Lymph Nodes (pN): pNX: Cannot be assessed Distant Metastasis (pM): Not applicable/Not confirmed pathologically in this case Previous therapy: 1) 11/11/2018 - 02/03/2019: PACLITAXEL 80 D1,8,15 CARBOPLATIN 6 D1 - Q21D s/p 4 cycles. *neutropenia/thrombocytopenia causing treatment delay. Neulasta OnPro added; switch to Q21D dosing of Taxol with cycles 5 & 6 02/23/2019 - 03/17/2019: PACLITAXEL 135 D1 CARBOPLATIN 6 D1 - Q21D s/p 2 cycles. 2) 06/30/2019 - 06/20/2021: olaparib (LYNPARZA) 150 mg tablet; 300 mg BID. Presents for ongoing oncologic management. Interim history: CTs 06/29/2022: Mesentery/Peritoneum: * New 0.4 cm anterior mesenteric fat nodule (8:57) * Confluent infiltrative soft tissue in RIGHT false pelvis surrounding the terminal ileum and ascending colon (cecum deep in pelvis) and probably affecting the sigmoid colon; difficult to precisely measure as it envelops bowel but including bowel measures approximately 4.5 x 2.9 cm (8:101); process extends to the RIGHT psoas muscle * Several small subtle anterior mesenteric fat nodules * No free abdominal fluid MRI pelvis 07/02/2022: Similar imaging findings since CT 06/29/2022, redemonstrating pelvic peritoneal/serosal carcinomatosis involving segments of bowel predominantly in the right anterior pelvis, with confluent soft tissue encasing the proximal ascending colon and causing relative upstream dilation of the low-lying cecum suggesting developing colonic obstruction. No small bowel dilation. No pelvic lymphadenopathy. Recommended to retry carbo/paclitaxel with potential addition michael if disease clears the bowel. Current therapy: 1) Carboplatin/paclitaxel. Presents for ongoing oncologic management. Evaluation for cycle #4. Interim history: Personally reviewed and everything below again today with her. Good appetite. No nausea. Constipated first few days following cycle. MOM helps. Otherwise, regular BMs with formed stools. No black or bloody stools. Subjectively can empty bladder when urinates. Occasional stress incontinence. Mild fingertip and toe numbness. Fingers getting worse--not interfering with fine motor tasks--ableto button buttons. Toes stable. She has had chronic right knee pain but now is somewhat worse and she has developed left knee pain.Some swelling in the right knee. No fevers. No pain if sitting still. Hurts to for stand up and walk. PMH, medications and allergies personally reviewed by me today. Any changes documented in appropriate section. ROS: Constitutional: Denies episodes of fever and night sweats. Neuro: Denies MACHADO, vertigo, dizziness and imbalance. HEENT: No recent change in voice, vision or hearing. Resp: Denies cough, wheeze and hemoptysis. Denies shortness of breath at rest. Denies OLIVER. CVS: Denies exertional chest pain, PND, orthopnea and LE edema. GI: Denies dysgeusia. Denies symptoms of stomatitis. Denies dysphagia and odynophagia. : Denies dysuria or gross hematuria. Endo: Denies hot flashes. Denies polyuria and polydipsia. Denies heat and cold intolerance. Musculoskeletal: Denies bone, back, joint and muscular pain. Derm: Denies rash. Denies jaundice and diffuse pruritis. Heme: Denies unusual bleeding and unexplained bruising. Psych: Normal mood. PHYSICAL EXAM: Vitals: Blood pressure 132/64, pulse 70, temperature 36.9 C (98.4 F), temperature source Temporal, weight 61.7 kg (136 lb). Well-appearing and in no acute distress. EYES: Sclerae are anicteric bilaterally. LYMPHATIC: There is no palpable cervical, supraclavicular, axillary or inguinal adenopathy. RESPIRATORY: Inspiratory breath sounds are of normal intensity in all bernabe. No rales, wheezes or rhonchi. Expiratory phase is normal. CARDIOVASCULAR: Rhythm is regular. Normal intensity S1/S2. There is no gallop or murmur. ABDOMEN: The abdomen is nondistended. It is soft and nontender throughout. No mass appreciated. No fluid wave. Extremities: No swelling or edema. SKIN: No jaundice or rash. No petechiae. 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 No focal motor weakness. DTRs are symmetric and normal. MUSCULOSKELETAL: Mild effusion just off the lateral lower patellar tendon right knee. No warmth or erythema. Has good range of motion both knees. LABS: Component Latest Ref Rng & Units 06/18/2022 07/20/2022 08/04/2022 08/28/2022 09/18/2022 WBC 3.70 - 11.00 k/uL 5.40 11.19 (H) 7.97 9.60 RBC 3.90 - 5.20 m/uL 4.54 4.32 4.22 4.23 Hemoglobin 11.5 - 15.5 g/dL 12.1 11.4 (L) 11.5 11.5 Hematocrit 36.0 - 46.0 % 36.4 34.9 (L) 34.8 (L) 35.5 (L) MCV 80.0 - 100.0 fL 80.2 80.8 82.5 83.9 MCH 26.0 - 34.0 pg 26.7 26.4 27.3 27.2 MCHC 30.5 - 36.0 g/dL 33.2 32.7 33.0 32.4 RDW-CV 11.5 - 15.0 % 14.5 15.4 (H) 17.1 (H) 17.8 (H) Platelet Count 150 - 400 k/uL 148 (L) 191 138 (L) 145 (L) MPV 9.0 - 12.7 fL 9.4 9.9 9.7 9.8 Neut% % 88.3 75.4 76.8 75.7 Abs Neut (ANC) 1.45 - 7.50 k/uL 4.77 8.45 (H) 6.12 7.27 Lymph% % 11.1 13.0 13.8 13.8 Abs Lymph 1.00 - 4.00 k/uL 0.60 (L) 1.45 1.10 1.32 [place]% % 0.4 9.7 7.9 9.3 Abs [place] <0.87 k/uL <0.03 1.08 (H) 0.63 0.89 (H) Eosin% % 0.0 0.3 0.5 0.4 Abs Eosin <0.46 k/uL <0.03 0.03 0.04 0.04 Baso% % 0.0 0.6 0.4 0.4 Abs Baso <0.11 k/uL <0.03 0.07 0.03 0.04 Immature Gran % % 0.2 1.0 0.6 0.4 IMMATURE GRANS (ABS) <0.10 k/uL <0.03 0.11 (H) 0.05 0.04 NRBC /100 WBC 0.0 0.0 0.0 0.0 Absolute nRBC <0.01 k/uL <0.01 <0.01 <0.01 <0.01 DTYPE Auto Auto Auto Auto Protein, Total 6.3 - 8.0 g/dL 7.0 7.1 Albumin 3.9 - 4.9 g/dL 4.3 4.3 Calcium 8.5 - 10.2 mg/dL 9.0 9.9 Bilirubin, Total 0.2 - 1.3 mg/dL 0.4 0.4 Alkaline Phosphatase 34 - 123 U/L 93 114 AST 13 - 35 U/L 18 18 ALT 7 - 38 U/L 11 15 Glucose 74 - 99 mg/dL 115 (H) 106 (H) BUN 7 - 21 mg/dL 23 (H) 26 (H) Creatinine 0.58 - 0.96 mg/dL 0.71 0.74 Sodium 136 - 144 mmol/L 137 139 Potassium 3.7 - 5.1 mmol/L 4.4 4.2 Chloride 97 - 105 mmol/L 102 104 CO2 22 - 30 mmol/L 24 28 Anion Gap 9 - 18 mmol/L 11 7 (L) eGFR >=60 mL/min/1.73m 90 86 CA 125 <39 U/mL 125 (H) 483 (H) 181 (H) 30 Magnesium 1.7 - 2.3 mg/dL 2.0 ASSESSMENT/PLAN: (C56.1, C56.2) Malignant neoplasm of both ovaries (HCC) (primary encounter diagnosis) Assessment: -KPS is 90%. -BRCA2 mutation (tested 04/2019) -Baseline CA125 1153 U/mL. -Recent progressive disease. Serosal bowel involvement. Symptoms were minimal. Agree with and recommended carboplatin and paclitaxel with the aim of adding bevacizumab if disease response and clears the bowel. -Again addressed goals of care. She understands the goal of therapy is increasing overall survival and palliation of symptoms. -Lower abdominal symptoms from ovarian cancer improved following 2 cycles. -CA125 now normal. -Bevacizumab was administered with cycle 3. Please see infusion encounter note. Fortunately no bowel issues as a consequence. -Discussed plan to proceed with cycle #4 with carboplatin and paclitaxel. No bevacizumab. Repeat CTscans prior to cycle 5. Potentially add back bevacizumab then or at some point. Otherwise with BRCA2 mutation, could consider PARP inhibitor as maintenance. Plan: -Okay for cycle #4 carbo/Taxol Wednesday. -Hold bevacizumab. -Recommended a dose of milk of magnesia Wednesday evening and again on Wednesday if no bowel movement on Wednesday. She will continue to take Colace on a daily basis. -Monitor CA125. -CT scan following cycle #4. -Plain films of both knees. Portions of this documentation were copied and pasted from previous office visit notes in order to provide a cohesive continuity of the history. The note has been reviewed and edited and updated as necessary. I spent a total of 25 minutes on the date of the service which included preparing to see the patient, [id number] patient care, completing clinical documentation, obtaining and/or reviewing separately obtained history, performing a medically appropriate examination, counseling and educating the pat ient/family/caregiver, ordering medications, tests, or procedures, and communicating results to thepatient/family/caregiver. Js Cruz DO documented in this encounterSt. [facility]03-[facility]23 Miscellaneous Notes* Telephone Encounter - Doreen Jerome RN - 09/17/2022 4:[address] Cruz aware of knee pain complaints. Called patient to inform her of this, there was no answer,the phone rang and rang without an option to leave a VM. Per Dr. Cruz, will refer patient to PCP. Doreen Jerome RN * Telephone Encounter - Doreen Jerome RN - 09/17/2022 3:02 PM EDT Oscar Care Coordination FOLLOW-UP NOTE Patient identified by name and date of . YES Spoke to patient Summary: (Reason for follow-up) C/o Pain Concerns: (New Barriers to care) Patient stated she has also has arthritis in her right knee however the past week she has increasedpain in her right knee and new pain in her left knee. Patient rates the pain at 1-2/10, constant when walking, standing for long periods of time, or going from sitting to standing position. Patient rates the pain at a 0/10 with rest. Patient denies redness or swelling in the knees or lower extremities. Patient has not tried tylenol, heat/ice, or topical creams for pain. Patient mostly wanted to report pain so Dr. Cruz is aware in case it is caused by her treatment or if Dr. Cruz feels any additional labs need to be added on prior to tomorrow OV. Patient informed that she could take tylenol for pain but patient does not feel it is necessary to take at this time. Patient aware this nurse will call her back if there are further instructions from Dr. Cruz. Care Coordination Plan: will follow-up if there are further instructions from Dr. Cruz. Patient has OV tomorrow. Doreen Jerome RN September 17, 2022 * Telephone Encounter - Lorna Parks Pss - 09/17/2022 12:37 PM EDT Patient called stating that this week she has noticed aching in her knees and legs. She is asking if there is a lab order that can be added to tomorrow to see if she is low on something. Please advise. documented in this encounterSt. Anthony'[facility]03-[facility]-2023 Miscellaneous Notes* Telephone Encounter - Doreen Jerome RN - 09/08/2022 10:30 AM EDT TOXICITY CHECK SYMPTOM ASSESSMENT The patient is on Carboplatin/Paclitaxel/Avastin Nausea: No Vomiting: No Diarrhea: no Constipation: yes, last full BM was Wednesday. No BM Wednesday, passed small solid stool today. Patient is passing gas, denies abdominal pain, bloating, or distention. Pain: Denies pain Fever: No Chills: No Patient has concerns with constipation. Patient took MOM on Wednesday and had a large BM. Patient tookcolace this morning, only one tablet. Reviewed instructions on colace from colace package, patient informed that she can increase and take up to 3 tablets per day if needed. Patient informed she can t eugenio MOM again if needed. Patient tried metamucil and miralax and did not tolerate either. Discussedfoods that patient can eat to help with BMs. Patient stated prunes used to really work well for herand she might try today. Patient was also advised to keep a food journal log to pinpoint triggers for constipation. Patient instructed to call if she develops abdominal pain/distention, fever, chills, N/V, or is unable to have a BM after trying colace and MOM. Patient stated understanding. Patient instructed to contact office or after hours Hematology/Oncology fellow for: temperature ? 100.4; questions or concerns. Patient verbalized understanding of when to seek medical attention and after hours number protocol. Doreen Jerome RN documented in this encounterSt. Anthony'[facility]03-15-2023 History of Present illness Narrative* Fang Cote MD - 09/02/2022 1:00 PM EDT TELEPHONE VISIT PROGRESS NOTE This is a virtual visit. It required patient-provider interaction for the medical decision making as documented below. Gynecologic Oncology Virtual Visit Follow up visit Date of service: 09/02/2022 Persons Present: patient CC: Savana Patel presents to discuss recent chemo error. 08/31/22 telephone call with Corinne Santana RN Spoke with pt who reports that she was given chemo today at [facility] and was accidentally given michael along with her carbo/taxol which she was not supposed to receive per her OV with Masci on 08/28. Pt is still very anxious r/t the error and is calling to be certain the [facility] is aware of the situation. Pt is questioning whether she should expect her bowel to perforate due to this mistake.Explained that this is a known but relatively rare side effect. There is no certainty it will or will not happen. Reviewed S&S of acute abd that would require immediate medical attention. Ensuredthat pt has on-call employee relations consultant phone number. Pt states she was also given the on-call onc number at [facility]. Also explained that the med error will be reported and go through the proper channels toensure proper review. Pt remains anxious and requests to speak directly to [facility]. Pt was offereda televisit on 09/02 at 0900 which she accepted. The appt will be scheduled. Pt is appreciative of conversation and information discussed. 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 Last Office Visit: 08/25/2022 ONCOLOGY HISTORY 1) 10/06/2018: Exploratory laparotomy, total abdominal hysterectomy, bilateral salpingooophorectomy,and bladder and posterior culdesac peritoneum resected en bloc, omentectomy 2) 11/11/2018 - 02/03/2019: PACLITAXEL 80 D1,8,15 CARBOPLATIN 6 D1 - Q21D s/p 4 cycles. *neutropenia/thrombocytopenia causing treatment delay. Neulasta OnPro added; switch to Q21D dosing of Taxol with cycles 5 & 6 02/23/2019 - 03/17/2019: PACLITAXEL 135 D1 CARBOPLATIN 6 D1 - Q21D s/p 2 cycles. 3) 06/30/2019 - 06/20/2021: olaparib (LYNPARZA) 150 mg tablet; 300 mg BID. 07/07/2022 POWER BARKER/ONC TUMOR BOARD Decontamination Technician/Onc Tumor Board Encounter Note Date of Tumor Board Presentation: 07/07/2022 Treating Physicians: Fang Cote MD Age: [age] year old Disease site: Ovary- High-grade serous adenocarcinoma Stage(at tumor board presentation)- Ovarian: Recurrent Care Path Discussion: No Clinical Trial Discussion: No If yes, what clinical trial should be considered? N/A Type of Tumor Board Review: Recurrence Attendance/Disciplines: POWER BARKER ONC, RAD ONC, Radiology, Pathology, and Genetics Management Options: - Recommend [place] based chemotherapy over secondary cytoreduction Citations: NCCN Ovarian Cancer Guidelines Version .2022 [facility] Carepath Guidelines: Ovarian Cancer Shanita P, Heather J, Claudia I, Angi G, Peyton A, Jonah W, Nadia S, Deandre BJ, Carmen F, Leigha F, Rufino C, L joaquim F, Viry R, Marlin E, Hyacinth JW, Cecil Simpson, Ashish F, Laura G, WendyM, Torey P, Griffin P, [place] A, Rodolfo-Josefina S, Arben MR, Rios B, Denise A, Kevin A, Ollucian A, Parth F, brianna Lincoln A; [facility] III Investigators. Randomized Trial of Cytoreductive Surgery for Relapsed Ovarian Cancer. N Engl J Med. 2020May 22;385(23):1598-1273. doi: 10.1056/AJUCbd7502945. Erratum in: N Engl J Med. 2021Aug 07;386(7):704. PMID: 46466713. Lisa PG, Celestine M, Lisbet LM, H, Cristofer R, May CM, Glenroy M, Ryan S, Roney R. PARPinhibitors decrease response to subsequent [place]-based chemotherapy in patients with BRCA mutated ovarian cancer. Anticancer Drugs. 2020Apr 21;32(10):3703-3540. doi: 10.1097/CAD.5571495930695630. PMID: 76022187. Anthony O, Sal DS, Krishnamurthy Q, Ilyaonolester A, Servando JA, Priyank V, Negin RN, Nito AK, Juane S, Cesar NATALIIA, Clem ED, Loi CL, Paroaamir V, Lakchristianoan Y, Matilde K, Koki K, Crenshaw GJ, Andikyan V, Gonzalez J, Bonnie EL, Long Effie K, Troso- Núñez T, Jihan SM, Arturo LA, Anson K, Sarah-Laurent NR, Justen C, Sunday WP, Kim J, Racheal Y, O'Becka RE. Secondary Cytoreduction and Carboplatin Hyperthermic Intraperitoneal Chemotherapy for [place]-Sensitive Recurrent Ovarian Cancer: An [facility] Ovary Phase II Study. J Clin Oncol. 2020Jan 28;39(23):2051-9236. doi: 10.1200/JCO.21.25035. Epub 2020November 08. PMID: 58761170; PMCID: FXQ6647325. This abstract and interpretation of the conversation at tumor board has been completed by Rupa Mosquera MD. These are the general recommendations/discussion provided at tumor board conference. The definitive recommendations/discussion will be made by the primary health care team and patient after fulldiscussion as appropriate. Presently receiving treatment with Carboplatin & Paclitaxel. 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 This result confirms a diagnosis ofHereditary Breast and Ovarian Cancer Syndrome. Patient's laboratory accession # is [id number]. (View full doc under 05/02/19 telephone encounter) HISTORY REVIEWED (electronic chart updated): PAST MEDICAL HISTORY Diagnosis Date Actinic keratosis 04/12/2007 Advance directive discussed with patient 08/24/2022 Discussed 08/2022: Up to date DEANDRE positive 07/25/2016 Rheum felt just Arthritis. 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 [place] ANGIOMA///NEVUS, NON-NEOPLASTIC 02/18/2007 Constipation 04/04/2015 Dysmetabolic syndrome X 12/28/2007 Essential hypertension 04/04/2015 GERD without esophagitis 07/24/2020 Hemorrhage of gastrointestinal tract, unspecified History of left mastectomy 05/05/2018 Impaired fasting glucose 11/21/2007 Internal hemorrhoids without mention of complication Leg cramps 01/08/[address] 07/31/2021 DPA is Living will on file 07/31/2021 DPA: Javier ( ) Malignant neoplasm of both ovaries (HCC) 10/26/2018 Mixed hyperlipidemia 04/04/2015 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 Osteoarthritis of multiple joints 07/27/2016 Osteopenia 12/28/2012 Other acne 05/29/2008 Other seborrheic keratosis 02/18/2007 Panic attacks 07/18/2012 Primary insomnia 01/29/2022 SOLAR LENGINES///DYSCHROMIA OTHER 02/18/2007 Thrombocytopenia (HCC) 01/29/2022 chronic Trigger ring finger of left hand 07/24/2020 Trigger ring finger of right hand 07/24/2020 PAST SURGICAL HISTORY Procedure Laterality Date BX BREAST PERC VACUUM/ROTN 10/26/07 LEFT COLONOSCOPY FLX DX W/COLLJ SPEC WHEN PFRMD 07/20/05 COLONOSCOPY FLX DX W/COLLJ SPEC WHEN PFRMD 05/01/16 normal - 10 year follow up LIG/TRNSXJ FLP TUBE ABDL/VAG APPR UNI/BI Tubal ligation MAST RAD W/PECTORAL MUSCLES AXILLARY LYMPH NODES 11/26 Left PAST SURGICAL HISTORY OF BACK SURGERY PAST SURGICAL HISTORY OF 10/06/2018 Exploratory laparotomy, total abdominal hysterectomy, bilateral salpingooophorectomy, and bladder and posterior culdesac peritoneum resected en bloc, omentectomy PLCMT LOCALZTN CLIP,PERC,DURING BREAST BX 10/26/07 LEFT S PORT-A-CATH [id number] 11/09/2018 TONSILLECTOMY PRIMARY/SECONDARY <AGE 11 Tonsillectomy FAMILY HISTORY Problem Relation Age of Onset Ovarian cancer Mother dx 50s Arthritis Father Cancer Maternal Aunt 7 aunts with breast or ovarian cancer. details unknown Social History Tobacco Use Smoking status: Never Smokeless tobacco: Never Vaping Use Vaping Use: Never used Substance Use Topics Alcohol use: No Drug use: No Current Outpatient Medications Medication Sig Dispense Refill LORazepam (ATIVAN) 0.5 mg Take 1 tablet by mouth twice daily as needed for up to 30 days. for anxiety. 60 tablet 0 docusate sodium (COLACE ORAL) Take 1 tablet by mouth once daily. HYDROcodone-acetaminophen (NORCO) 5-325 mg per tablet Take 1-2 tablets by mouth every 6 hours as needed for pain. atorvastatin (LIPITOR) 10 mg tablet Take 1 tablet by mouth once daily. 90 tablet 1 ramipril (ALTACE) 10 mg capsule Take 1 capsule by mouth once daily. 90 capsule 1 promethazine (PHENERGAN) 25 mg tablet Take 1 tablet by mouth every 6 hours as needed. FOR NAUSEA 30tablet 2 heparin 100 unit/mL injection NURSING USE ONLY: USE FOR IMPLANTED VASCULAR ACCESS DEVICE (IVAD) FLUSH. AMBULATORY/OUTPATIENT: PLEASE REORDER UPON HOSPITAL DISCHARGE May access implanted vascular access device (IVAD) as needed for treatment. Before de-accessing port, flush with 10-20ml normal saline and follow with 5 mL heparin (100 units/mL) (if no heparin allergy). De-access port on treatment completion. 5 mL 0 Surgical Lubricant Jelly gel For MRI Female Pelvis, MRI department to provide. Administer intra-vaginal Surgilube immediately prior the MRI procedure (total amount to patient toleranace). 5 g 0 iv contrast (will be provided with radiology test) CT Chest ABD/PEL-Inject, intravenously, once for1 dose.No IV access, insert saline lock prior to the beginning of sedation, infusion, injection of imaging exam. Discontinue saline lock post exam. If Pt. has a central line or IVAD, may access for administration according to line specific nursing protocol. Once exam is complete flush line and de-access according to line specific nursing protocol in the CT contrast administration guidelines link.1 Each 0 enteric contrast (will be provided with radiology test) For CT CHESTABD/PEL W IVCON Routine order Administer, As Directed One Time Only, via Oral, Rectal, both Oral and Rectal, Enteric Tube, Stoma orIndwelling Catheter, Enteric Contrast as designated per enteric contrast guidelines 1 Each 0 iv contrast (will be provided with radiology test) CT Chest ABD/PEL-Inject, intravenously, once for1 dose.No IV access, insert saline lock prior to the beginning of sedation, infusion, injection of imaging exam. Discontinue saline lock post exam. If Pt. has a central line or IVAD, may access for administration according to line specific nursing protocol. Once exam is complete flush line and de-access according to line specific nursing protocol in the CT contrast administration guidelines link.1 Each 0 enteric contrast (will be provided with radiology test) For CT CHESTABD/PEL W IVCON Routine order Administer, As Directed One Time Only, via Oral, Rectal, both Oral and Rectal, Enteric Tube, Stoma orIndwelling Catheter, Enteric Contrast as designated per enteric contrast guidelines 1 Each 0 No current facility-administered medications for this visit. ALLERGIES Allergen Reactions Penicillins Rash Sulfa (Sulfonamide * Unknown INTERVAL HISTORY presents today via telephone to discuss a treatment error while receiving chemotherapy on Wednesday. She was given Zirabev (bevacizumab) in error in addition to her planned chemotherapy with carbo/taxol. She notes the Tuesdays following chemotherapy she experiences N/V (normally for 1 evening) but alsoreports she has not been taking her nausea pill. Notes that she feels better after emesis. notes increased flatulence recently. Otherwise, feeling OK. Notably no abdominal pain, fever, RESULTS: Data Reviewed: Most recent labs and imaging results. CA 125 (U/mL) Date Value 08/28/2022 30 08/04/2022 181 07/20/2022 483 06/18/2022 125 04/13/2022 14 03/23/2022 12 02/24/2022 10 01/19/2022 10 12/23/2021 10 11/24/2021 11 10/27/2021 11 09/29/2021 10 09/01/2021 9 07/07/2021 8 06/09/2021 9 05/12/2021 8 04/14/2021 8 02/19/2021 9 12/09/2020 9 10/23/2020 9 09/27/2020 8 08/23/2020 8 07/26/2020 8 06/28/2020 8 03/28/2020 8 02/01/2020 8 01/01/2020 8 10/20/2019 8 09/22/2019 7 08/25/2019 8 07/28/2019 8 07/20/2019 8 07/14/2019 9 07/07/2019 8 06/20/2019 9 03/27/2019 7 09/12/2018 1,153 08/21/22 CT ABD/PEL W IVCON IMPRESSION: 1. Improved peritoneal disease. 2. Persistent serosal involvement with tethering of the right colon to the psoas causing chronic partial obstruction of the cecum. 08/28/22 MAMMOGRAM IMPRESSION: BENIGN FINDING 08/28/22 CBC + DIFF Component Ref Range & Units 4 d ago 4 wk ago 1 mo ago 4 mo ago 5 mo ago 6 mo ago 7 mo ago WBC 3.70 - 11.00 k/uL 7.97 11.19 High 5.40 5.78 5.97 5.76 5.37 RBC 3.90 - 5.20 m/uL 4.22 4.32 4.54 4.47 4.56 4.53 4.51 Hemoglobin 11.5 - 15.5 g/dL 11.5 11.4 Low 12.1 12.0 12.4 12.2 12.1 Hematocrit 36.0 - 46.0 % 34.8 Low 34.9 Low 36.4 37.6 38.2 37.8 37.7 MCV 80.0 - 100.0 fL 82.5 80.8 80.2 84.1 83.8 83.4 83.6 MCH 26.0 - 34.0 pg 27.3 26.4 26.7 26.8 27.2 26.9 26.8 MCHC 30.5 - 36.0 g/dL 33.0 32.7 33.2 31.9 32.5 32.3 32.1 RDW-CV 11.5 - 15.0 % 17.1 High 15.4 High 14.5 14.7 14.5 14.9 15.1 High Platelet Count 150 - 400 k/uL 138 Low 191 148 Low 143 Low 139 Low 139 Low 137 Low MPV 9.0 - 12.7 fL 9.7 9.9 9.4 9.9 9.6 10.0 10.0 Neutrophils % % 76.8 75.4 88.3 64.2 65.7 61.9 63.5 Abs Neut 1.45 - 7.50 k/uL 6.12 8.45 High 4.77 3.71 3.92 3.56 3.41 Lymphocytes % % 13.8 13.0 11.1 24.9 23.8 26.2 25.1 Abs Lymph 1.00 - 4.00 k/uL 1.10 1.45 0.60 Low 1.44 1.42 1.51 1.35 Monocytes % % 7.9 9.7 0.4 9.7 9.2 10.2 9.7 Abs [place] <0.87 k/uL 0.63 1.08 High <0.03 0.56 0.55 0.59 0.52 Eosinophils % % 0.5 0.3 0.0 0.7 0.7 0.9 0.9 Abs Eosin <0.46 k/uL 0.04 0.03 <0.03 0.04 0.04 0.05 0.05 Basophils % % 0.4 0.6 0.0 0.3 0.3 0.3 0.6 Abs Baso <0.11 k/uL 0.03 0.07 <0.03 <0.03 <0.03 <0.03 0.03 Immature Granulocytes % % 0.6 1.0 0.2 0.2 0.3 0.5 0.2 Abs Immature Gran <0.10 k/uL 0.05 0.11 High <0.03 <0.03 <0.03 0.03 <0.03 NRBC /100 WBC 0.0 0.0 0.0 0.0 0.0 0.0 0.0 Absolute nRBC <0.01 k/uL <0.01 <0.01 <0.01 <0.01 <0.01 <0.01 <0.01 Diff Type Auto Auto Auto Auto Auto Auto Auto Resulting Agency CCWM CCWM CCWM CCWM CCWM CCWM CCWM 08/28/22 CMP Component Ref Range & Units 4 d ago (08/28/22) 4 wk ago (08/04/22) 1 mo ago (07/20/22) 2 mo ago (06/29/22) 4 mo ago (04/13/22) 7 mo ago (01/19/22) 1 yr ago (07/07/21) 1 yr ago (07/07/21) Protein, Total 6.3 - 8.0 g/dL 7.1 7.0 7.6 7.2 7.3 6.6 Test reordered by [facility]. VC, CM Albumin 3.9 - 4.9 g/dL 4.3 4.3 4.6 4.7 4.6 4.5 Test reordered by [facility]. VC, CM Calcium, Total 8.5 - 10.2 mg/dL 9.9 9.0 9.4 9.8 9.4 9.6 Test reordered by [facility]. VC, CM Bilirubin, Total 0.2 - 1.3 mg/dL 0.4 0.4 0.6 0.5 0.8 0.5 Test reordered by [facility]. VC, CM Alkaline Phosphatase 34 - 123 U/L 114 93 83 87 83 87 Test reordered by [facility]. VC, CM AST 13 - 35 U/L 18 18 22 19 20 20 Test reordered by [facility]. VC, CM ALT 7 - 38 U/L 15 11 14 14 11 14 Test reordered by [facility]. VC, CM Glucose 74 - 99 mg/dL 106 High 115 High CM 216 High CM 103 High CM 89 CM 88 CM Test reordered by [facility]. VC, CM Comment: The [place] [employer] (ADA) provides guidance for cutoff values for fasting glucose and random glucose. The ADA defines fasting as no caloric intake for at least 8 hours. Fastingplasma glucose results between 100 to 125 mg/dL indicate increased risk for diabetes (prediabetes). Fasting plasma glucose results greater than or equal to 126 mg/dL meet the criteria for diagnosis of diabetes. In the absence of unequivocal hyperglycemia, results should be confirmed by repeat testing. In a patient with classic symptoms of hyperglycemia or hyperglycemic crisis, random plasma glucose results greater than or equal to 200 mg/dL meet the criteria for diagnosis of diabetes. Reference: Standards of Medical Care in Diabetes 2016, [place] [employer]. Diabetes Care. 2016.39(Suppl 1). BUN 7 - 21 mg/dL 26 High 23 High 34 High 27 High 26 High 25 High Test reordered by [facility]. VC, CM Creatinine 0.58 - 0.96 mg/dL 0.74 0.71 0.73 0.77 0.79 0.76 0.76 Test reordered by [facility]. VC, CM Sodium 136 - 144 mmol/L 139 137 136 138 137 143 Test reordered by [facility]. VC, CM Potassium 3.7 - 5.1 mmol/L 4.2 4.4 4.2 4.2 4.3 4.4 Test reordered by [facility]. VC, CM Chloride 97 - 105 mmol/L 104 102 101 103 101 107 High Test reordered by [facility]. VC, CM CO2 22 - 30 mmol/L 28 24 23 26 24 21 Low Test reordered by [facility]. VC, CM Anion Gap 9 - 18 mmol/L 7 Low 11 12 9 12 15 Test reordered by [facility]. VC, CM Estimated Glomerular Filtration Rate >=60 mL/min/1.73m 86 90 CM 87 CM 82 CM 79 CM 83 CM Comment: Estimated Glomerular Filtration Rate (eGFR) is calculated using the 2020 CKD-EPI creatinine equation. This equation utilizes serum creatinine, sex, and age as parameters. The creatinine assay has traceable calibration to isotope dilution-mass spectrometry. Refer to KDIGO guidelines for clinical interpretation. In patients with unstable renal function, e.g. those with acute kidney injury,the eGFR may not accurately reflect actual GFR. Resulting Agency [facility] 08/28/22 MAGNESIUM BLOOD Component Ref Range & Units 4 d ago (08/28/22) 4 wk ago (08/04/22) 1 mo ago (07/20/22) 1 yr ago (07/07/21) 1 yr ago (07/07/21) 1 yr ago (11/20/20) 2 yr ago (01/01/20) Magnesium 1.7 - 2.3 mg/dL 2.1 2.0 2.2 2.3 Test reordered by [facility]. VC, CM 2.2 2.1 Resulting Agency [facility] ASSESSMENT/PLAN 09/10/2020 - Dr. 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 Interval testing since last visit discussed, CA125 reviewed and within normal limits. Patient is up-to-date with health maintenance includingmammogram, colonoscopy and advanced directives. Reviewed issues of survivorship including sexual health after cancer treatment, mental health and support systems. Importance of cancer surveillance and early detection of recurrence reinforced. 10/28/2020- Heather Lutz NP (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 Advised her value is stable. Last CT scan was in March 2020. Will order CT of the chest abdomen and pelvis for reevaluation while on PARPi therapy. Patient would like to establish with Dr. Cote, will move her appointment with me from 12/[address] Dawson on 12/[address] scans the week before. Continue monthly labs while on PARPi therapy Patient verbalized an understanding and agreed with the plan. Instructed to call if she has any questions or concerns. Heathre Lutz APRN.REGIONAL WILDLIFE AGENT 12/18/2020 70 yr old woman with stage IIIC ovarian high grade serous carcinoma s/p optimal debulking Germline BRCA-2 mutation - On PAPRi maintenance (Olaparib) - Normal Ca-125 Plan for patient to continue Olaparib regiment. 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 Patient expressed concern about receiving the COVID vaccine while taking Olaparib. I advised the patient to continue with the COVID vaccine and discussed findings that supported my recommendation with her. Patient is receptive to recommendation. I answered all of the patient's and patient's 's questions and addressed their concerns. Plan to RTC in March [address] before and in June 2021. Continue with monthly CBC, and CA 125 prior to office visit with me in [place]. Patient verbalized an understanding and agreed with the plan. 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 I reviewed the most recent CT results with the patient which showed no acute pathology, no suspicious pulmonary nodules, no thoracic lymphadenopathy in the chest, and no acute pathology, and no mass or lymphadenopathy in the abdomen and pelvis. Ms. Patel received the 2nd COVID vaccine in January, and reports experiencing hot flashes since that time. I believe that this might be due to the Lynparza. Ms. Patel also complains of leg cramps that onset at night. I recommend taking multivitamins daily, as well as eating a diet rich in Potassium. Ms. Patel will continue taking Lynparza until the last day in May. Plan to RTC on June 25, [address], CBC, and CA [address] results show no new evidence of disease, we will discuss stopping her PARP. We will discuss the cancer surveillance timeline at the next visit. 07/04/2021 Stop lynparza. Ok to stop protonix in 2-3 weeks after stopping lynparza. I recommend leaving [place] for one year. Discuss in one year. Discussed no scans needed unless concerning s/s of recurrence. CA 125 prior to each office visit. 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 Discussed she may have some improvement but hard to say at this point. Recommend KN95 with omicron variant. Discussed covid testing guidelines. Follow up in 3 months 10/01/2021 Impression: History of Ovarian Cancer, most recently had completed Olaparib . CA 125 is 10, stable, but she is worried because it has increased by 1 point. Discussed the significance of small changes in CA 125 and anxiety which often accompany's this. Plan: CA 125 and clinical examination in December. Vulvar dryness and itching. Will prescribe Lotrisone cream. Said she had this in past and it helped her. She will call office if symptoms of itching, and dryness don't resolve in the next couple of weeks. 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 CA 125 is stable. Some bladder symptoms at times. Intermittent. Discussed pelvic floor PT. Will trial melatonin for insomnia and some assistance with constipation. BMD ordered for osteopenia screening. 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 No clinical evidence of disease. She has been off her PARP for approximately 9 months. Repeat CA 125 in 3 months. If CA 125 value is >15, (the roberto value,) will check CT scan as well. Reviewed signs and symptoms of recurrence and told to call with persisting concerns. Follow up in clinic in June for continued surveillance. 04/22/2022 She is feeling a bit better. I reviewed the recent labs she had. Nothing actionable. No clinical evidence of diverticulitis or UTI. She has had a flu shot. I advise getting the covid bivalent booster. CA 125 again in June a couple days before she sees me. She is in agreement with these plans. 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 Recently her CA 125 has jumped from 14 (04/13/22) to 125 (06/18/22). PLAN CT Chest & Abd/Pel to be done in [place] early next week. Contact clinic if CT is scheduled forlater than Wednesday to reschedule virtual visit. Follow up Wednesday07/01/[address] to review results of CT scan and discuss her care plan. 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 Would be considered [place] sensitive. Cancer appears to be involving distal ileum, and possibly sigmoid colon and right psoas. There may be sub-centimeter lesions elsewhere in the abdominal cavity. These findings were reviewed in detail with . Options for management include secondary debulking, possibly with HIPEC, followed with chemotherapyvs chemotherapy alone. To better assess whether secondary debulking would be appropriate, a pelvic MRI will be checked with focus on the possible involvement of the psoas muscle and surrounding blood vessels. If secondary debulking not advised, a CT guided biopsy of the recurrence will be considered as thissample can be sent for somatic tumor testing which can guide future treatment decisions. PLAN Review her case at the next Decontamination Technician/Onc Tumor Conference. MRI to be done in [facility] for later this week. Follow up Wednesday07/08/22 to review Tumor Board discussion and MRI results. We will confirm the care plan at this time. 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 Her case was discussed in Tumor Board on 07/07/22. 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 If Bevacizumab is started, beginning with cycle number 3 of chemotherapy, consider single agent Bevacizumab following several cycles of carboplatin, Paclitaxel, and Bevacizumab Side effects of treatment plan reviewed, questions answered to patient's satisfaction. She is agreeable with this plan. Symptoms concerning for worsening disease reviewed. Instructed to contact this clinic if she has any questions. PLAN She wishes to receive her chemotherapy in [place] with Dr.Paul Eve DO. A copy of this note will be forwarded to him today. I will reach out to to fascilitate an appointment [phone] Follow up with me at the [facility] 2 weeks after her second cycle of chemotherapy, with a CT prior to that appointment. Will decide if Bevacizumab should be added at this time. 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 She is s/p cycle two of chemotherapy with Carboplatin and Paclitaxel. No unexpected toxicity. Improvement of disease burden on CT Discussed potential addition of Bevacizumab to current chemotherapy plan. Given indication of persistent tethering of cancer to right colon on CT, Bevacizumab is not iadvised at this time. PLAN Continue chemotherapy with carbo/taxol under 's supervision. Repeat CT after cycle 6, will place order for this. Follow up in this office after cycle 6, to review the CT and discuss maintenance therapy options. 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 She is s/p cycle three of chemotherapy with Carboplatin and Paclitaxel. Bevacizumab was given with cycle 3, which was not planned based on CT findings). Presently no concerning symptoms related to bevacizmab administration. Explained that bevacizumab is an approriate agent in her type of cancer, and though not planned to have been given, holding this agent prior to last cycle of chemotherapy was a judgement call. We reviewed serious but uncommon side effect of bowel perforation or peritonitis. Reviewed other side effects of bevacizumab. Reviewed alternative names of bevacizumab including the version she received, Zirabev. Addressed her anxiety surrounding the unplanned dose of bevacizumb given. PLAN Repeat CT after cycle 4 of chemotherapy (taxol and carboplatin) Will readdress potential role for bevacizumab in treatment upon review of future scans Follow up as planned in the office to discuss scans & care plan. Documentation from clinic notes of previous visit on 08/25/2022 was copied and pasted, documentation has been reviewed and edited as necessary and is current for today. Total Time Spent: 11-20 minutes 09/02/2022 ATTESTATION: By signing my name below, I, Jayla Bridges, attest that this documentation has been prepared under the direction and in the presence of Fang Cote MD. I, Fang Cote MD, agree that the above note, as documented by my scribe, accurately describes my encounter with the patient today. Electronically signed:Chasity Singleton, Fang Cote MD, Physician, September 02, 2022 1:40 PM documented in this encounterSt. [facility] Miscellaneous Notes* Telephone Encounter - Js Cruz DO - 09/01/2022 4:33 PM EDT Thank you for the update. Js Cruz DO * Telephone Encounter - Doreen Jerome RN - 09/01/2022 10:25 AM EDT CYCLE 1/DAY 1 POST TREATMENT CALL Today's date: September 01, 2022 Treatment Regimen: Avastin/Carboplatin/Taxol C1D1 Date: 08/31/2022 Called patient to follow-up on symptom management. Spoke with patient SYMPTOM ASSESSMENT Neuro: None CV/Resp: None GI/: Constipation: yes, last BM yesterday. Patient is passing gas without difficulty. Patient denies anyabdominal pain or pressure. Patient denies N/V. Integument: None Activity: Patient reported no changes in energy level, energy level fair Pain: No=0 (pain 0 on a scale of 0-10). Fever: No Chills: No Patient informed this nurse that she was not supposed to receive Avastin yesterday but did anywayand she is anxious about this. Patient had a lot of questions regarding the medications she receives in our office, why she receives the pre-med's ordered, and Avastin side effects. Patient informed of all the pre-meds she received and why she receives them. Reviewed Avastin drug information and side effects. Patient asking if she is to continue with Claritin; patient is receiving neulasta injection today and we discussed the rationale for Claritin, Claritin side effects, and patient was given the option to take or discontinue. Patient would like to avoid bone pain since she developed severe bone after first dose so she would like to continue Claritin. This nurse allowed patient time to share her concerns and provided active listening. This nurse apologized for the mistake that took place yesterday. Patient instructed to call myself or Antonina if shehas any side effect concerns or questions. Reviewed after hour number with patient. Any new referrals needed? No Reinforced CURRENT treatment education based on current and anticipated symptoms. Discussed port/line care and patient verbalizes understanding: Yes Patient instructed to contact office or after hours Hematology/Oncology fellow for: temperature ? 100.4; questions or concerns. Patient verbalized understanding of when to seek medical attention and after hours number protocol. Doreen Jerome RN documented in this encounterSt. [facility]20[facility] History of Present illness Narrative* Rut Mcintyre LPN - 09/01/2022 2:48 PM EDT Pt here for injection of Fulphilia. Given sq in right arm (always). Pt tolerated well. Rut Leary documented in this encounterSt. [facility]23 Miscellaneous Notes* Telephone Encounter - Corinne Santana RN - 08/31/2022 3:57 PM EDT Spoke with pt who reports that she was given chemo today at [facility] and was accidentally given michael along with her carbo/taxol which she was not supposed to receive per her OV with Masci on 08/28. Pt is still very anxious r/t the error and is calling to be certain the [facility] is aware of the situation. Pt is questioning whether she should expect her bowel to perforate due to this mistake.Explained that this is a known but relatively rare side effect. There is no certainty it will or will not happen. Reviewed S&S of acute abd that would require immediate medical attention. Ensuredthat pt has on-call employee relations consultant phone number. Pt states she was also given the on-call onc number at [facility]. Also explained that the med error will be reported and go through the proper channels toensure proper review. Pt remains anxious and requests to speak directly to Orgas. Pt was offereda televisit on 09/02 at 0900 which she accepted. The appt will be scheduled. Pt is appreciative of conversation and information discussed. Corinne Santana RN * Telephone Encounter - Corinne Santana RN - 08/31/2022 3:57 PM EDT ----- Message from Kaley Junior APRN.REGIONAL WILDLIFE AGENT sent at 08/31/2022 3:47 PM EDT ----- Regarding: RE: lisa Can you please call her and figure out what's going on? I saw she is being seen in [place]. Not sure if this should be forwarded to them. thanks ----- Message ----- From: Modesto Luis RN Sent: 08/31/2022 3:29 PM EDT To: Kaley Junior APRN.JOSE LUIS, Corinne Santana RN Subject: FW: lisa ----- Message ----- From: Mellissa KU Sent: 08/31/2022 2:52 PM EDT To: Decontamination Technician Onc Nursing Pool Subject: ilsa Patient states that there was an issue with which medication should have been administered today for treatment. She is requesting to speak with Dr. Torre for clarity. May reach on either home or mobile. documented in this encounterSt. [facility]03-[facility] History of Present illness Narrative* Js Cruz DO - 08/28/2022 8:46 AM EST Diagnosis: 1) Stage III high grade serous carcinoma of the ovary. HPI: The patient is a 72-year-old female with a past medical history significant for DCIS (left mastectomy), mixed hyperlipidemia, hypertension, osteoarthritis who underwent evaluation for worsening pelvic pain. Initially underwent pelvic ultrasound on 09/01/2018. Uterus appeared normal. The endometrial stripe was 2.3 mm. Right and left ovaries appeared normal. However there was a large amount of free fluid in the pelvic cul-de-sac. CT A/P 09/08/2018: Liver: No mass. Homogeneous texture. Biliary: No ductal dilatation is seen. Gallbladder is unremarkable. Spleen: Spleen is unremarkable. Pancreas: No mass or duct dilation. Adrenals: Adrenal glands are unremarkable. Kidneys: No mass, calculus or hydronephrosis is seen. GI tract: No bowel dilatation is seen. No evidence of obstruction. Lymph nodes: No evidence of adenopathy. Mesentery/Peritoneum: There is increased soft tissue density best seen in the coronal views extending from the lower abdomen into the pelvic area. This could represent peritoneal involvement with tumor. This is seen on coronal image 37 and axial images 99 through 122. It extends across the anterior aspect of the pelvic area seen on axial image 124. Vasculature: No evidence of dilatation of the abdominal aorta. CT PELVIS: Pelvis: There is a large amount of free fluid or loculated fluid in the pelvis suggesting that there could be an enhancing rim surrounding this fluid is seen on image 127 and measures 10.6 x 6.1 cm. Bones/Soft Tissues: No significant findings identified. Lower thorax: Unremarkable. CA125 was 1153 U/mL. Had employee relations consultant onc evaluation and CT chest unremarkable. Underwent exploratory laparotomy, optimal tumor bulking, total abdominal hysterectomy, bilateral salpingo-oophorectomy, resection of bladder cul-de-sac and pelvic peritoneal disease along with resection of omental caking with super colic omentectomy on 10/06/2018. Pathology: FINAL DIAGNOSIS 1. 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 2. 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 3. Uterus, cervix, bilateral ovaries and fallopian tubes, and bladder/pelvic peritoneum, hysterectomy and excision (C) Left fallopian tube - High grade serous carcinoma (see comment and synoptic report). Right fallopian tube - Positive for involvement by high grade serous carcinoma. Bilateral ovaries - Positive for involvement by high grade serous carcinoma. Uterine serosa - Positive for involvement by high grade serous carcinoma. Bladder/pelvic peritoneum - Positive for involvement by high grade serous carcinoma. Endometrium - Inactive endometrium. Myometrium - Negative for malignancy. Cervix - Negative for malignancy. SYNOPTIC REPORT OF BRAUN PATHOLOGIC FINDINGS UTERUS, CERVIX, BILATERAL TUBES AND OVARIES, BLADDER, AND PELVIC PERITONEUM: Procedure: Total hysterectomy and bilateral salpingo-oophorectomy Omentectomy Peritoneal biopsies Specimen Integrity: Left fallopian tube serosa intact Primary Tumor Site: Left fallopian tube Ovarian Surface Involvement: Present Specify laterality (if applicable): Bilateral Fallopian Tube Surface Involvement: Present Specify laterality (if applicable): Bilateral Tumor Size: Greatest dimension: 1.6 cm Histologic Type: Serous carcinoma Histologic Grade: Not applicable Two-tier grading System: High grade Implants: Not applicable/not sampled Involvement of other tissues/organs: Right ovary Left ovary Right fallopian tube Pelvic peritoneum Omentum Other organs/tissues (specify): Uterine serosa Largest extrapelvic peritoneal focus, macroscopic (greater than 2 cm) Peritoneal Ascitic Fluid, Not submitted/unknown Treatment Effect: No known presurgical therapy Regional Lymph Nodes: No nodes submitted or found Pathologic Stage Classification (pTNM, AJCC 8th ed) TNM Descriptors: Not applicable Primary Tumor (pT): pT3c: Macroscopic peritoneal metastasis beyond pelvis more than 2 cm in greatest dimension with or without metastasis to the retroperitoneal lymph nodes (includes extension to capsule of liver and spleen without parenchymal involvement of either organ) Regional Lymph Nodes (pN): pNX: Cannot be assessed Distant Metastasis (pM): Not applicable/Not confirmed pathologically in this case Previous therapy: 1) 11/11/2018 - 02/03/2019: PACLITAXEL 80 D1,8,15 CARBOPLATIN 6 D1 - Q21D s/p 4 cycles. *neutropenia/thrombocytopenia causing treatment delay. Neulasta OnPro added; switch to Q21D dosing of Taxol with cycles 5 & 6 02/23/2019 - 03/17/2019: PACLITAXEL 135 D1 CARBOPLATIN 6 D1 - Q21D s/p 2 cycles. 2) 06/30/2019 - 06/20/2021: olaparib (LYNPARZA) 150 mg tablet; 300 mg BID. Presents for ongoing oncologic management. Interim history: CTs 06/29/2022: Mesentery/Peritoneum: * New 0.4 cm anterior mesenteric fat nodule (8:57) * Confluent infiltrative soft tissue in RIGHT false pelvis surrounding the terminal ileum and ascending colon (cecum deep in pelvis) and probably affecting the sigmoid colon; difficult to precisely measure as it envelops bowel but including bowel measures approximately 4.5 x 2.9 cm (8:101); process extends to the RIGHT psoas muscle * Several small subtle anterior mesenteric fat nodules * No free abdominal fluid MRI pelvis 07/02/2022: Similar imaging findings since CT 06/29/2022, redemonstrating pelvic peritoneal/serosal carcinomatosis involving segments of bowel predominantly in the right anterior pelvis, with confluent soft tissue encasing the proximal ascending colon and causing relative upstream dilation of the low-lying cecum suggesting developing colonic obstruction. No small bowel dilation. No pelvic lymphadenopathy. Recommended to retry carbo/paclitaxel with potential addition michael if disease clears the bowel. Current therapy: 1) Carboplatin/paclitaxel. May add bevacizumab. Presents for ongoing oncologic management. Evaluation for cycle #3. Interim history: Pain from Neulasta cycle #1. Not as bad second cycle. Still has good appetite. No nausea. The previous soreness in lower abdomen after urinating or BM has improved. Just brief ache now after urinating or BM. Constipated first few days following cycle. Otherwise, regular BMs with formed stools. No black or bloody stools. Subjectively can empty bladder when urinates. Occasional stress incontinence. Mild fingertip and toe numbness. Fingers getting worse--not interfering with fine motor tasks. Toesstable. PMH, medications and allergies personally reviewed by me today. Any changes documented in appropriate section. ROS: Constitutional: Denies episodes of fever and night sweats. Neuro: Denies MACHADO, vertigo, dizziness and imbalance. HEENT: No recent change in voice, vision or hearing. Resp: Denies cough, wheeze and hemoptysis. Denies shortness of breath at rest. Denies OLIVER. CVS: Denies exertional chest pain, PND, orthopnea and LE edema. GI: Denies dysgeusia. Denies symptoms of stomatitis. Denies dysphagia and odynophagia. : Denies dysuria or gross hematuria. Endo: Denies hot flashes. Denies polyuria and polydipsia. Denies heat and cold intolerance. Musculoskeletal: Denies bone, back, joint and muscular pain. Derm: Denies rash. Denies jaundice and diffuse pruritis. Heme: Denies unusual bleeding and unexplained bruising. Psych: Normal mood. PHYSICAL EXAM: Vitals: Blood pressure 108/63, pulse 70, temperature 37.3 C (99.1 F), weight 61.2 kg (135 lb), [id number] %. Well-appearing and in no acute distress. EYES: Sclerae are anicteric bilaterally. LYMPHATIC: There is no palpable cervical, supraclavicular, axillary or inguinal adenopathy. RESPIRATORY: Inspiratory breath sounds are of normal intensity in all bernabe. No rales, wheezes or rhonchi. Expiratory phase is normal. CARDIOVASCULAR: Rhythm is regular. Normal intensity S1/S2. There is no gallop or murmur. ABDOMEN: The abdomen is nondistended. It is soft and nontender throughout. No mass appreciated. No fluid wave. Extremities: No swelling or edema. SKIN: No jaundice or rash. No petechiae. 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 No focal motor weakness. DTRs are symmetric and normal. MUSCULOSKELETAL: No muscle wasting. LABS: Component Latest Ref Rng & Units 06/18/2022 07/20/2022 08/04/2022 08/28/2022 WBC 3.70 - 11.00 k/uL 7.97 RBC 3.90 - 5.20 m/uL 4.22 Hemoglobin 11.5 - 15.5 g/dL 11.5 Hematocrit 36.0 - 46.0 % 34.8 (L) MCV 80.0 - 100.0 fL 82.5 MCH 26.0 - 34.0 pg 27.3 MCHC 30.5 - 36.0 g/dL 33.0 RDW-CV 11.5 - 15.0 % 17.1 (H) Platelet Count 150 - 400 k/uL 138 (L) MPV 9.0 - 12.7 fL 9.7 Neut% % 76.8 Abs Neut (ANC) 1.45 - 7.50 k/uL 6.12 Lymph% % 13.8 Abs Lymph 1.00 - 4.00 k/uL 1.10 [place]% % 7.9 Abs [place] <0.87 k/uL 0.63 Eosin% % 0.5 Abs Eosin <0.46 k/uL 0.04 Baso% % 0.4 Abs Baso <0.11 k/uL 0.03 Immature Gran % % 0.6 IMMATURE GRANS (ABS) <0.10 k/uL 0.05 NRBC /100 WBC 0.0 Absolute nRBC <0.01 k/uL <0.01 DTYPE Auto Protein, Total 6.3 - 8.0 g/dL 7.1 Albumin 3.9 - 4.9 g/dL 4.3 Calcium 8.5 - 10.2 mg/dL 9.9 Bilirubin, Total 0.2 - 1.3 mg/dL 0.4 Alkaline Phosphatase 34 - 123 U/L 114 AST 13 - 35 U/L 18 ALT 7 - 38 U/L 15 Glucose 74 - 99 mg/dL 106 (H) BUN 7 - 21 mg/dL 26 (H) Creatinine 0.58 - 0.96 mg/dL 0.74 Sodium 136 - 144 mmol/L 139 Potassium 3.7 - 5.1 mmol/L 4.2 Chloride 97 - 105 mmol/L 104 CO2 22 - 30 mmol/L 28 Anion Gap 9 - 18 mmol/L 7 (L) eGFR >=60 mL/min/1.73m 86 CA 125 <39 U/mL 125 (H) 483 (H) 181 (H) Magnesium 1.7 - 2.3 mg/dL 2.1 ASSESSMENT/PLAN: (C56.1, C56.2) Malignant neoplasm of both ovaries (HCC) (primary encounter diagnosis) Assessment: -KPS is 90%. -Baseline CA125 1153 U/mL. -Recent progressive disease. Serosal bowel involvement. Symptoms were minimal. Agree with and recommended carboplatin and paclitaxel with the aim of adding bevacizumab if disease response and clears the bowel. -Again addressed goals of care. She understands the goal of therapy is increasing overall survival and palliation of symptoms. -Lower abdominal symptoms from ovarian cancer improved following 2 cycles. -CA125 declining. -I personally reviewed CT images and independently verified and agreed with the radiologist's findings. Still some tethering of cecum with objective response. -Discussed potential strategy of maintenance bevacizumab if able to added to her regimen. -Reviewed mammogram results. Repeat in 1 year. Plan: -Okay for cycle #3 carbo/Taxol Wednesday. -Hold bevacizumab. -Recommended a dose of milk of magnesia Wednesday evening and again on Wednesday if no bowel movement on Wednesday. She will continue to take Colace on a daily basis. -Monitor CA125. -CT scan following cycle #4. Portions of this documentation were copied and pasted from previous office visit notes in order to provide a cohesive continuity of the history. The note has been reviewed and edited and updated as necessary. I spent a total of 30 minutes on the date of the service which included preparing to see the patient, [id number] patient care, completing clinical documentation, obtaining and/or reviewing separately obtained history, performing a medically appropriate examination, counseling and educating the pat ient/family/caregiver, ordering medications, tests, or procedures, independently interpreting results (not separately reported), and communicating results to the patient/family/caregiver. Js Cruz DO documented in this encounterSt[facility] Miscellaneous Notes* Letter - Mammography Coordinator - 08/28/2022 8:41 AM EST August 31, 2022 PID: [id number] Savana Patel [address] [place] [address] Dear Ms. Patel, We are pleased to inform you that the results of your recent breast imaging exam on 08/28/2022 are normal. Early detection of cancer is very important. We also understand recommendations regarding breast cancer screening are controversial. Please discuss with your primary care provider which strategy is best for you and whether a mammogram is right for you. Your imaging studies and report will be kept on file at [facility] as part of your permanent medical record and are available for your continuing care. Thank you for allowing us to help in meeting your health care needs. Sincerely, Dr. Jung Interpreting Radiologist [facility] (Normal over 40) documented in this encounterSt. [facility]03-10-2023 History of Present illness Narrative* Heather Joy RT(R) - 08/28/2022 7:50 AM EST Radiology Service Progress Note PATIENT NAME: Savana Patel DATE OF SERVICE: August 28, 2022 TIME: 7:44 AM PATIENT IDENTITY VERIFICATION COMPLETED USING TWO (2) IDENTIFIERS: Name and Date of confirmedby patient verbally. FALL SCREENING: Has the patient had 2 falls in the last year or 1 fall with injury or currently using an Ambulatory Assistive Device (Walker, Cane, Wheelchair, Crutches, etc.)? No PATIENT GENDER DATA: Female. status: : No status: NO. PATIENT RELEVANT IMPLANT DATA REVIEWED: Yes RADIOLOGY DEPARTMENT: Mammography PERIPHERAL IV DATA: Not applicable SIGNED BY: RT Claudia(R) August 28, 2022 7:44 AM documented in this encounterSt. [facility]03-07-2023 History of Present illness Narrative* Fang Cote MD - 08/25/2022 3:30 PM EST Gynecologic Oncology [facility] Follow up visit Date of service: 08/25/2022 PROBLEM/CC: Savana Patel presents for follow-up. HPI: Mrs. 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 Last distance visit: 07/08/2022 Last office visit: 06/26/2022 ONCOLOGY HISTORY: 1) 10/06/2018: Exploratory laparotomy, total abdominal hysterectomy, bilateral salpingooophorectomy,and bladder and posterior culdesac peritoneum resected en bloc, omentectomy 2) 11/11/2018 - 02/03/2019: PACLITAXEL 80 D1,8,15 CARBOPLATIN 6 D1 - Q21D s/p 4 cycles. *neutropenia/thrombocytopenia causing treatment delay. Neulasta OnPro added; switch to Q21D dosing of Taxol with cycles 5 & 6 02/23/2019 - 03/17/2019: PACLITAXEL 135 D1 CARBOPLATIN 6 D1 - Q21D s/p 2 cycles. 3) 06/30/2019 - 06/20/2021: olaparib (LYNPARZA) 150 mg tablet; 300 mg BID. 07/07/2022 POWER BARKER/ONC TUMOR BOARD Decontamination Technician/Onc Tumor Board Encounter Note Date of Tumor Board Presentation: 07/07/2022 Treating Physicians: Fang Cote MD Age: [age] year old Disease site: Ovary- High-grade serous adenocarcinoma Stage(at tumor board presentation)- Ovarian: Recurrent Care Path Discussion: No Clinical Trial Discussion: No If yes, what clinical trial should be considered? N/A Type of Tumor Board Review: Recurrence Attendance/Disciplines: POWER BARKER ONC, RAD ONC, Radiology, Pathology, and Genetics Management Options: - Recommend [place] based chemotherapy over secondary cytoreduction Citations: NCCN Ovarian Cancer Guidelines Version .2022 [facility] Carepath Guidelines: Ovarian Cancer Shanita P, Heather J, Claudia I, Angi G, Peyton A, Jonah W, Nadia S, Deandre BJ, Carmen F, Leigha F, Rufino C, L joaquim F, Viry R, Santos-Dea E, Hyacinth JW, Cecil J, Ashish F, Laura G, WendyM, Torey P, Griffin P, [place] A, Rodolfo-Elioi S, Arben MR, Carson B, Reinthaller A, Santaballa A, Olaitan A, Hilpert F, du Latonia A; [facility] III Investigators. Randomized Trial of Cytoreductive Surgery for Relapsed Ovarian Cancer. N Engl J Med. 2020May 22;385(23):2051-2614. doi: 10.1056/ZWHHpg2299765. Erratum in: N Engl J Med. 2021Aug 07;386(7):704. PMID: 29800137. Lisa PG, Celestine M, Lisbet LM, H, Cristofer R, May CM, Glenroy M, Ryan S, Roney R. PARPinhibitors decrease response to subsequent [place]-based chemotherapy in patients with BRCA mutated ovarian cancer. Anticancer Drugs. 2020Apr 21;32(10):9055-1988. doi: 10.1097/CAD.9230342579790851. PMID: 29809775. Anthony O, Sal DS, Krishnamurthy Q, Xiang A, Servando JA, Priyank V, Negin RN, Nito AK, Aguilar S, Cesar NATALIIA, Nj ED, Langstvivi CL, Paroder V, Lakhman Y, Soldan K, Telles K, Crenshaw GJ, Andronel V, Carlos J, Bonnie EL, Long Effie K, Troso- Núñez T, Jihan SM, Arturo LA, Anson K, [place] NR, Justen C, Sunday WP, Kim J, Racheal Y, O'Becka RE. Secondary Cytoreduction and Carboplatin Hyperthermic Intraperitoneal Chemotherapy for [place]-Sensitive Recurrent Ovarian Cancer: An MAKTea Ovary Phase II Study. J Clin Oncol. 2020Jan 28;39(23):3957-1948. doi: 10.1200/JCO.21.11397. Epub 2020November 08. PMID: 41133404; PMCID: [id number]. This abstract and interpretation of the conversation at tumor board has been completed by Rupa Mosquera MD. These are the general recommendations/discussion provided at tumor board conference. The definitive recommendations/discussion will be made by the primary health care team and patient after fulldiscussion as appropriate. Presently receiving treatment with Carboplatin & Paclitaxel. 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 This result confirms a diagnosis ofHereditary Breast and Ovarian Cancer Syndrome. Patient's laboratory accession # is [id number]. (View full doc under 05/02/19 telephone encounter) HISTORIES: PAST MEDICAL HISTORY Diagnosis Date Actinic keratosis 04/12/2007 Advance directive discussed with patient 08/24/2022 Discussed 08/2022: Up to date DEANDRE positive 07/25/2016 Rheum felt just Arthritis. 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/13/2019 [place] ANGIOMA///NEVUS, NON-NEOPLASTIC 02/18/2007 Constipation 04/04/2015 Dysmetabolic syndrome X 12/28/2007 Essential hypertension 04/04/2015 GERD without esophagitis 07/24/2020 Hemorrhage of gastrointestinal tract, unspecified History of left mastectomy 05/05/2018 Impaired fasting glucose 11/21/2007 Internal hemorrhoids without mention of complication Leg cramps 01/08/[address] 07/31/2021 DPA is Living will on file 07/31/2021 DPA: Javier ( ) Malignant neoplasm of both ovaries (HCC) 10/26/2018 Mixed hyperlipidemia 04/04/2015 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 Osteoarthritis of multiple joints 07/27/2016 Osteopenia 12/28/2012 Other acne 05/29/2008 Other seborrheic keratosis 02/18/2007 Panic attacks 07/18/2012 Primary insomnia 01/29/2022 SOLAR LENGINES///DYSCHROMIA OTHER 02/18/2007 Thrombocytopenia (HCC) 01/29/2022 chronic Trigger ring finger of left hand 07/24/2020 Trigger ring finger of right hand 07/24/2020 PAST SURGICAL HISTORY Procedure Laterality Date BX BREAST PERC VACUUM/ROTN 10/26/07 LEFT COLONOSCOPY FLX DX W/COLLJ SPEC WHEN PFRMD 07/20/05 COLONOSCOPY FLX DX W/COLLJ SPEC WHEN PFRMD 05/01/16 normal - 10 year follow up LIG/TRNSXJ FLP TUBE ABDL/VAG APPR UNI/BI Tubal ligation MAST RAD W/PECTORAL MUSCLES AXILLARY LYMPH NODES 11/26 Left PAST SURGICAL HISTORY OF BACK SURGERY PAST SURGICAL HISTORY OF 10/06/2018 Exploratory laparotomy, total abdominal hysterectomy, bilateral salpingooophorectomy, and bladder and posterior culdesac peritoneum resected en bloc, omentectomy PLCMT LOCALZTN CLIP,PERC,DURING BREAST BX 10/26/07 LEFT S PORT-A-CATH [id number] 11/09/2018 TONSILLECTOMY PRIMARY/SECONDARY <AGE 11 Tonsillectomy FAMILY HISTORY Problem Relation Age of Onset Ovarian cancer Mother dx 50s Arthritis Father Cancer Maternal Aunt 7 aunts with breast or ovarian cancer. details unknown SOCIAL HISTORY: Social History Tobacco Use Smoking status: Never Smokeless tobacco: Never Vaping Use Vaping Use: Never used Substance Use Topics Alcohol use: No Drug use: No Marital Status: PAST GYNECOLOGIC HISTORY: OB History T0 L0 SAB0 IAB2 Ectopic0 Multiple0 Live Births0 LMP: No LMP recorded. Patient has had a hysterectomy. HEALTH MAINTENANCE: Last pap: 01/27/2016 negative Last mammogram: 07/04/2021, Breast MRI 12/31/21 - both normal Last colonoscopy: 05/01/2016 ALLERGIES Allergen Reactions Penicillins Rash Sulfa (Sulfonamide * Unknown MEDICATIONS docusate sodium (COLACE ORAL) Take 1 tablet by mouth once daily. HYDROcodone-acetaminophen (NORCO) 5-325 mg per tablet Take 1-2 tablets by mouth every 6 hours as needed for pain. atorvastatin (LIPITOR) 10 mg tablet Take 1 tablet by mouth once daily. ramipril (ALTACE) 10 mg capsule Take 1 capsule by mouth once daily. promethazine (PHENERGAN) 25 mg tablet Take 1 tablet by mouth every 6 hours as needed. FOR NAUSEA dexAMETHasone (DECADRON) 4 mg tablet Take 5 tablets 12 and 6 hours prior to chemotherapy treatment. heparin 100 unit/mL injection NURSING USE ONLY: USE FOR IMPLANTED VASCULAR ACCESS DEVICE (IVAD) FLUSH. AMBULATORY/OUTPATIENT: PLEASE REORDER UPON HOSPITAL DISCHARGE May access implanted vascular access device (IVAD) as needed for treatment. Before de-accessing port, flush with 10-20ml normal saline and follow with 5 mL heparin (100 units/mL) (if no heparin allergy). De-access port on treatment completion. Surgical Lubricant Jelly gel For MRI Female Pelvis, MRI department to provide. Administer intra-vaginal Surgilube immediately prior the MRI procedure (total amount to patient toleranace). iv contrast (will be provided with radiology test) CT Chest ABD/PEL-Inject, intravenously, once for1 dose.No IV access, insert saline lock prior to the beginning of sedation, infusion, injection of imaging exam. Discontinue saline lock post exam. If Pt. has a central line or IVAD, may access for administration according to line specific nursing protocol. Once exam is complete flush line and de-access according to line specific nursing protocol in the CT contrast administration guidelines link. enteric contrast (will be provided with radiology test) For CT CHESTABD/PEL W IVCON Routine order Administer, As Directed One Time Only, via Oral, Rectal, both Oral and Rectal, Enteric Tube, Stoma orIndwelling Catheter, Enteric Contrast as designated per enteric contrast guidelines iv contrast (will be provided with radiology test) CT Chest ABD/PEL-Inject, intravenously, once for1 dose.No IV access, insert saline lock prior to the beginning of sedation, infusion, injection of imaging exam. Discontinue saline lock post exam. If Pt. has a central line or IVAD, may access for administration according to line specific nursing protocol. Once exam is complete flush line and de-access according to line specific nursing protocol in the CT contrast administration guidelines link. enteric contrast (will be provided with radiology test) For CT CHESTABD/PEL W IVCON Routine order Administer, As Directed One Time Only, via Oral, Rectal, both Oral and Rectal, Enteric Tube, Stoma orIndwelling Catheter, Enteric Contrast as designated per enteric contrast guidelines INTERVAL HISTORY: Savana Patel reports that she feels alright. She presents today with her . Following her first cycle of chemotherapy she reported intense body aches following her Filgrastim injection received the day after therapy. She took Claritin with cycle 2 and the previously noted aches/pains were improved. She notes some neuropathy in her hands. She is able to do buttons, zip her pants, and put on jewelry with some issue. Neuropathy improved with heat (warm water in the sink or heating pad). Notes mildneuropathy in her feet, but feels this is less troublesome than her hands. also notes hot flashes recently. also reports recent urine incontinence. PHYSICAL EXAM: VITALS: BP 125/75 (BP Site: Right Arm, BP Position: Sitting, BP Cuff Size: Regular Adult) Pulse 81 Temp 37.3 C (99.1 F) (Oral) Ht 162.6 cm (5' 4) Wt 61.6 kg (135 lb 12.8 oz) SpO2 97% BMI23.31 kg/m GENERAL: Patient is a well developed, well nourished, no acute distress. Presenting with her SKIN: Color, texture, turgor normal. No rashes or lesions. HEENT: Normocephalic, atraumatic, mucus membranes moist, and no lesions NECK: Supple, no adenopathy; thyroid symmetric, normal size, no bruits LUNGS: Respirations unlabored. Chest clear. HEART: Regular rate and rhythm. No murmer. No JVD. ABDOMEN: Nontender. No palpable masses. No hernia felt. Liver and spleen not palpably enlarged. No ascites apparent. PELVIC: Deferred, last done 06/26/22. PSYCHIATRIC: Alert, cooperative. Normal affect. Normal behavior. LYMPH NODES: No palpable enlarged nodes in neck, groin or axilla. NEURO: Normal sensory. Motor intact and symmetric. Gait normal. LOWER EXTREMITIES: Diminished patellar reflexes Veneer Sander for exam: Modesto Malikoski, CERTIFIED ORTHOTIST/PEDORTHIST, REGIONAL WILDLIFE AGENT RESULTS: CA 125 (U/mL) Date Value 08/04/2022 181 07/20/2022 483 06/18/2022 125 04/13/2022 14 03/23/2022 12 02/24/2022 10 01/19/2022 10 12/23/2021 10 11/24/2021 11 10/27/2021 11 09/29/2021 10 09/01/2021 9 07/07/2021 8 06/09/2021 9 05/12/2021 8 04/14/2021 8 02/19/2021 9 12/09/2020 9 10/23/2020 9 09/27/2020 8 08/23/2020 8 07/26/2020 8 06/28/2020 8 03/28/2020 8 02/01/2020 8 01/01/2020 8 10/20/2019 8 09/22/2019 7 08/25/2019 8 07/28/2019 8 07/20/2019 8 07/14/2019 9 07/07/2019 8 06/20/2019 9 03/27/2019 7 09/12/2018 1,153 08/04/22 MAGNESIUM BLOOD Component Ref Range & Units 3 wk ago (08/04/22) 1 mo ago (07/20/22) 1 yr ago (07/07/21) 1 yr ago (07/07/21) 1 yr ago (11/20/20) 2 yr ago (01/01/20) 2 yr ago (09/22/19) Magnesium 1.7 - 2.3 mg/dL 2.0 2.2 2.3 Test reordered by [facility]. VC, CM 2.2 2.1 2.2 Resulting Agency [facility] Gall[facility] 08/04/22 COMP METABOLIC PANEL Component Ref Range & Units 3 wk ago (08/04/22) 1 mo ago (07/20/22) 1 mo ago (06/29/22) 4 mo ago (04/13/22) 7 mo ago (01/19/22) 1 yr ago (07/07/21) 1 yr ago (1/17/22) Protein, Total 6.3 - 8.0 g/dL 7.0 7.6 7.2 7.3 6.6 Test reordered by [facility]. VC, CM Albumin 3.9 - 4.9 g/dL 4.3 4.6 4.7 4.6 4.5 Test reordered by [facility]. VC, CM Calcium, Total 8.5 - 10.2 mg/dL 9.0 9.4 9.8 9.4 9.6 Test reordered by [facility]. VC, CM Bilirubin, Total 0.2 - 1.3 mg/dL 0.4 0.6 0.5 0.8 0.5 Test reordered by [facility]. VC, CM Alkaline Phosphatase 34 - 123 U/L 93 83 87 83 87 Test reordered by [facility]. VC, CM AST 13 - 35 U/L 18 22 19 20 20 Test reordered by [facility]. VC, CM ALT 7 - 38 U/L 11 14 14 11 14 Test reordered by [facility]. VC, CM Glucose 74 - 99 mg/dL 115 High 216 High CM 103 High CM 89 CM 88 CM Test reordered by [facility]. VC, CM Comment: The [place] Diabetes Association (ADA) provides guidance for cutoff values for fasting glucose and random glucose. The ADA defines fasting as no caloric intake for at least 8 hours. Fastingplasma glucose results between 100 to 125 mg/dL indicate increased risk for diabetes (prediabetes). Fasting plasma glucose results greater than or equal to 126 mg/dL meet the criteria for diagnosis of diabetes. In the absence of unequivocal hyperglycemia, results should be confirmed by repeat testing. In a patient with classic symptoms of hyperglycemia or hyperglycemic crisis, random plasma glucose results greater than or equal to 200 mg/dL meet the criteria for diagnosis of diabetes. Reference: Standards of Medical Care in Diabetes 2016, [place] [employer] Association. Diabetes Care. 2016.39(Suppl 1). BUN 7 - 21 mg/dL 23 High 34 High 27 High 26 High 25 High Test reordered by [facility]. VC, CM Creatinine 0.58 - 0.96 mg/dL 0.71 0.73 0.77 0.79 0.76 0.76 Test reordered by [facility]. VC, CM Sodium 136 - 144 mmol/L 137 136 138 137 143 Test reordered by [facility]. VC, CM Potassium 3.7 - 5.1 mmol/L 4.4 4.2 4.2 4.3 4.4 Test reordered by [facility]. VC, CM Chloride 97 - 105 mmol/L 102 101 103 101 107 High Test reordered by [facility]. VC, CM CO2 22 - 30 mmol/L 24 23 26 24 21 Low Test reordered by [facility]. VC, CM Anion Gap 9 - 18 mmol/L 11 12 9 12 15 Test reordered by [facility]. VC, CM Estimated Glomerular Filtration Rate >=60 mL/min/1.73m 90 87 CM 82 CM 79 CM 83 CM Comment: Estimated Glomerular Filtration Rate (eGFR) is calculated using the 202 CKD-EPI creatinine equation. This equation utilizes serum creatinine, sex, and age as parameters. The creatinine assay has traceable calibration to isotope dilution-mass spectrometry. Refer to KDIGO guidelines for clinical interpretation. In patients with unstable renal function, e.g. those with acute kidney injury,the eGFR may not accurately reflect actual GFR. Resulting Agency [facility] 08/04/22 CBC + DIFF Component Ref Range & Units 3 wk ago 1 mo ago 4 mo ago 5 mo ago 6 mo ago 7 mo ago 8 mo ago WBC 3.70 - 11.00 k/uL 11.19 High 5.40 5.78 5.97 5.76 5.37 4.81 RBC 3.90 - 5.20 m/uL 4.32 4.54 4.47 4.56 4.53 4.51 4.35 Hemoglobin 11.5 - 15.5 g/dL 11.4 Low 12.1 12.0 12.4 12.2 12.1 11.7 Hematocrit 36.0 - 46.0 % 34.9 Low 36.4 37.6 38.2 37.8 37.7 35.5 Low MCV 80.0 - 100.0 fL 80.8 80.2 84.1 83.8 83.4 83.6 81.6 MCH 26.0 - 34.0 pg 26.4 26.7 26.8 27.2 26.9 26.8 26.9 MCHC 30.5 - 36.0 g/dL 32.7 33.2 31.9 32.5 32.3 32.1 33.0 RDW-CV 11.5 - 15.0 % 15.4 High 14.5 14.7 14.5 14.9 15.1 High 15.5 High Platelet Count 150 - 400 k/uL 191 148 Low 143 Low 139 Low 139 Low 137 Low 127 Low MPV 9.0 - 12.7 fL 9.9 9.4 9.9 9.6 10.0 10.0 9.5 Neutrophils % % 75.4 88.3 64.2 65.7 61.9 63.5 62.8 Abs Neut 1.45 - 7.50 k/uL 8.45 High 4.77 3.71 3.92 3.56 3.41 3.02 Lymphocytes % % 13.0 11.1 24.9 23.8 26.2 25.1 25.4 Abs Lymph 1.00 - 4.00 k/uL 1.45 0.60 Low 1.44 1.42 1.51 1.35 1.22 Monocytes % % 9.7 0.4 9.7 9.2 10.2 9.7 9.8 Abs [place] <0.87 k/uL 1.08 High <0.03 0.56 0.55 0.59 0.52 0.47 Eosinophils % % 0.3 0.0 0.7 0.7 0.9 0.9 1.0 Abs Eosin <0.46 k/uL 0.03 <0.03 0.04 0.04 0.05 0.05 0.05 Basophils % % 0.6 0.0 0.3 0.3 0.3 0.6 0.6 Abs Baso <0.11 k/uL 0.07 <0.03 <0.03 <0.03 <0.03 0.03 0.03 Immature Granulocytes % % 1.0 0.2 0.2 0.3 0.5 0.2 0.4 Abs Immature Gran <0.10 k/uL 0.11 High <0.03 <0.03 <0.03 0.03 <0.03 <0.03 NRBC /100 WBC 0.0 0.0 0.0 0.0 0.0 0.0 0.0 Absolute nRBC <0.01 k/uL <0.01 <0.01 <0.01 <0.01 <0.01 <0.01 <0.01 Diff Type Auto Auto Auto Auto Auto Auto Auto Resulting Agency [facility] 08/04/22 LIPID PANEL, NONFASTING Component Ref Range & Units 3 wk ago (08/04/22) 7 mo ago (01/19/22) 1 yr ago (07/07/21) 1 yr ago (11/20/20) 2 yr ago (06/28/20) 2 yr ago (01/01/20) 3 yr ago (01/06/19) Total Cholesterol, Nonfasting <200 mg/dL 140 155 CM 161 CM 132 CM 150 CM 147 CM 168 CM Comment: <200 mg/dL, Desirable 200-239 mg/dL, Borderline high >239 mg/dL, High Triglycerides, Nonfasting <150 mg/dL 95 96 CM 85 CM 92 CM 90 CM 86 CM 89 CM Comment: <150 mg/dL, Normal 150-199 mg/dL, Borderline high 200-499 mg/dL, High >499 mg/dL, Very high HDL Cholesterol, Nonfasting >39 mg/dL 29 Low 49 CM 48 CM 48 CM 53 CM 53 CM 39 Low CM Comment: 40-59 mg/dL, Acceptable >59 mg/dL, High: Negative risk factor for coronary heart disease <40 mg/dL, Low: Positive risk factor for coronary heart disease LDL Cholesterol, Nonfasting <100 mg/dL 92 87 CM 96 CM 66 CM 79 CM 77 CM 111 High CM Comment: <100 mg/dL, Optimal 100-129 mg/dL, Near optimal/above optimal 130-159 mg/dL, Borderline high 160-189 mg/dL, High >189 mg/dL, Very high Secondary prevention optimal LDL Cholesterol levels are recommended to be < 70 mg/dL Non HDL Cholesterol, Nonfasting <130 mg/dL 111 106 CM 113 CM 84 CM 97 CM 94 CM 129 CM Comment: <130 mg/dL, Optimal 130-159 mg/dL, Near optimal/above optimal 160-189 mg/dL, Borderline high 190-219 mg/dL, High >219 mg/dL, Very high Secondary prevention optimal non HDL Cholesterol levels are recommended to be <100 mg/dL VLDL Cholesterol, Nonfasting <30 mg/dL 19 19 17 18 18 17 18 Total Chol/HDL Ratio, Nonfasting <5.10 mg/dL 4.83 3.16 3.35 2.75 2.83 2.77 4.31 LDL/HDL Ratio, Nonfasting <2.54 mg/dL 3.17 High 1.78 CM 2.00 CM 1.38 CM 1.49 CM 1.45 CM 2.85 High CM Comment: Reference: 1. National Cholesterol Education Program ATP III Guideline At-A-Glance Quick Desk Reference: National Heart, Lung, and Blood [place]. National Institutes of Health. 2001: NIH Publication No. 01-3305. 2. An International Atherosclerosis Society position paper: global recommendations for the management of dyslipidemia: executive summary, Atherosclerosis. 2014: 232(2):410-413. Resulting Agency [facility] 08/04/22 HGB A1C Component Ref Range & Units 3 wk ago (08/04/22) 7 mo ago (01/19/22) 1 yr ago (07/07/21) 1 yr ago (11/20/20) 2 yr ago (06/28/20) 2 yr ago (11/17/19) 3 yr ago (06/20/19) Hemoglobin A1C 4.3 - 5.6 % 5.9 High 5.6 CM 5.5 CM 5.6 CM 5.5 CM 5.3 CM 5.7 High CM Comment: [place] [employer] guidelines indicate that patients with HgbA1c in the range 5.7-6.4% are at increased risk for development of diabetes, and intervention by lifestyle modification may be beneficial. HgbA1c greater or equal to 6.5% is considered diagnostic of diabetes. Estimated Average Glucose mg/dL 123 114 CM 111 CM 114 CM 111 CM 105 CM 117 CM Comment: eAG: (Estimated average glucose) is a calculated value from HgbA1c and is insurance claims representative of the average blood glucose level in the last 2-3 month period. Resulting Agency [facility] 08/21/2022 CT ABD/PEL W IVCON IMPRESSION: 1. Improved peritoneal disease. 2. Persistent serosal involvement with tethering of the right colon to the psoas causing chronic partial obstruction of the cecum. ASSESSMENT & PLAN: 09/10/2020 - Dr. 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 Interval testing since last visit discussed, CA125 reviewed and within normal limits. Patient is up-to-date with health maintenance includingmammogram, colonoscopy and advanced directives. Reviewed issues of survivorship including sexual health after cancer treatment, mental health and support systems. Importance of cancer surveillance and early detection of recurrence reinforced. 10/28/2020- Heather Lutz NP (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 Advised her value is stable. Last CT scan was in March 2020. Will order CT of the chest abdomen and pelvis for reevaluation while on PARPi therapy. Patient would like to establish with Dr. Cote, will move her appointment with me from 12/[address] Dawson on 12/[address] scans the week before. Continue monthly labs while on PARPi therapy Patient verbalized an understanding and agreed with the plan. Instructed to call if she has any questions or concerns. 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 Patient expressed concern about receiving the COVID vaccine while taking Olaparib. I advised the patient to continue with the COVID vaccine and discussed findings that supported my recommendation with her. Patient is receptive to recommendation. I answered all of the patient's and patient's 's questions and addressed their concerns. Plan to RTC in March [address] before and in June 2021. Continue with monthly CBC, and CA 125 prior to office visit with me in [place]. Patient verbalized an understanding and agreed with the plan. 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 I reviewed the most recent CT results with the patient which showed no acute pathology, no suspicious pulmonary nodules, no thoracic lymphadenopathy in the chest, and no acute pathology, and no mass or lymphadenopathy in the abdomen and pelvis. Ms. Patel received the 2nd COVID vaccine in January, and reports experiencing hot flashes since that time. I believe that this might be due to the Lynparza. Ms. Patel also complains of leg cramps that onset at night. I recommend taking multivitamins daily, as well as eating a diet rich in Potassium. Ms. Patel will continue taking Lynparza until the last day in May. Plan to RTC on June 25, [address], CBC, and CA [address] results show no new evidence of disease, we will discuss stopping her PARP. We will discuss the cancer surveillance timeline at the next visit. 07/04/2021 Stop lynparza. Ok to stop protonix in 2-3 weeks after stopping lynparza. I recommend leaving port for one year. Discuss in one year. Discussed no scans needed unless concerning s/s of recurrence. CA 125 prior to each office visit. 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 Discussed she may have some improvement but hard to say at this point. Recommend KN95 with omicron variant. Discussed covid testing guidelines. Follow up in 3 months 10/01/2021 Impression: History of Ovarian Cancer, most recently had completed Olaparib . CA 125 is 10, stable, but she is worried because it has increased by 1 point. Discussed the significance of small changes in CA 125 and anxiety which often accompany's this. Plan: CA 125 and clinical examination in December. Vulvar dryness and itching. Will prescribe Lotrisone cream. Said she had this in past and it helped her. She will call office if symptoms of itching, and dryness don't resolve in the next couple of weeks. 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 CA 125 is stable. Some bladder symptoms at times. Intermittent. Discussed pelvic floor PT. Will trial melatonin for insomnia and some assistance with constipation. BMD ordered for osteopenia screening. 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 No clinical evidence of disease. She has been off her PARP for approximately 9 months. Repeat CA 125 in 3 months. If CA 125 value is >15, (the roberto value,) will check CT scan as well. Reviewed signs and symptoms of recurrence and told to call with persisting concerns. Follow up in clinic in June for continued surveillance. 04/22/2022 She is feeling a bit better. I reviewed the recent labs she had. Nothing actionable. No clinical evidence of diverticulitis or UTI. She has had a flu shot. I advise getting the covid bivalent booster. CA 125 again in June a couple days before she sees me. She is in agreement with these plans. 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 Recently her CA 125 has jumped from 14 (04/13/22) to 125 (06/18/22). PLAN CT Chest & Abd/Pel to be done in [place] early next week. Contact clinic if CT is scheduled forlater than Wednesday to reschedule virtual visit. Follow up Wednesday07/01/22 to review results of CT scan and discuss her care plan. 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 Would be considered [place] sensitive. Cancer appears to be involving distal ileum, and possibly sigmoid colon and right psoas. There may be sub-centimeter lesions elsewhere in the abdominal cavity. These findings were reviewed in detail with . Options for management include secondary debulking, possibly with HIPEC, followed with chemotherapyvs chemotherapy alone. To better assess whether secondary debulking would be appropriate, a pelvic MRI will be checked with focus on the possible involvement of the psoas muscle and surrounding blood vessels. If secondary debulking not advised, a CT guided biopsy of the recurrence will be considered as thissample can be sent for somatic tumor testing which can guide future treatment decisions. PLAN Review her case at the next Decontamination Technician/Onc Tumor Conference. MRI to be done in [place], aim for later this week. Follow up Wednesday07/08/22 to review Tumor Board discussion and MRI results. We will confirm the care plan at this time. 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 Her case was discussed in Tumor Board on 07/07/22. 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 If Bevacizumab is started, beginning with cycle number 3 of chemotherapy, consider single agent Bevacizumab following several cycles of carboplatin, Paclitaxel, and Bevacizumab Side effects of treatment plan reviewed, questions answered to patient's satisfaction. She is agreeable with this plan. Symptoms concerning for worsening disease reviewed. Instructed to contact this clinic if she has any questions. PLAN She wishes to receive her chemotherapy in [place] with Dr.Paul Eve DO. A copy of this note will be forwarded to him today. I will reach out to to fascilitate an appointment [phone] Follow up with me at the [facility] 2 weeks after her second cycle of chemotherapy, with a CT prior to that appointment. Will decide if Bevacizumab should be added at this time. 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 She is s/p cycle two of chemotherapy with Carboplatin and Paclitaxel. No unexpected toxicity. Improvement of disease burden on CT Discussed potential addition of Bevacizumab to current chemotherapy plan. Given indication of persistent tethering of cancer to right colon on CT, Bevacizumab is not iadvised at this time. PLAN Continue chemotherapy with carbo/taxol under 's supervision. Repeat CT after cycle 6, will place order for this. Follow up in this office after cycle 6, to review the CT and discuss maintenance therapy options. Documentation from my notes of previous visit of 07/08/2022 was copied and pasted, documentation hasbeen reviewed and edited as necessary and is current for today. ATTESTATION: By signing my name below, I, Jayla Bridges, attest that this documentation has been prepared under the direction and in the presence of Fang Cote MD. I, Fang Cote MD, agree that the above note, as documented by my scribe, accurately describes my encounter with the patient today. Electronically signed:Chasity Singleton, Fang Cote MD, Physician, August 25, 2022 3:21 PM documented in this encounterSt. [facility]03-[facility]23 Instructions* Patient Instructions* Shay Cardoza MD - 08/24/2022 3:29 PM EST Please get labs done on or after 02/12/2023 prior to your next visit. documented in this encounterSt. [facility]03-[facility]-2023 History of Present illness Narrative* Shay Cardoza MD - 08/24/2022 2:40 PM EST Medicare Yearly Visit Medical B eligibilty date 02/19/2014 Date of last exam 07/31/2021 PAST MEDICAL HISTORY PAST MEDICAL HISTORY Diagnosis Date Actinic keratosis 04/12/2007 DEANDRE positive 07/25/2016 Rheum felt just Arthritis. 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 Osteoarthritis of multiple joints 07/27/2016 Osteopenia 12/28/2012 Other acne 05/29/2008 Other seborrheic keratosis 02/18/2007 Panic attacks 07/18/2012 SOLAR LENGINES///DYSCHROMIA OTHER 02/18/2007 PAST SURGICAL HISTORY PAST SURGICAL HISTORY Procedure Laterality Date BX BREAST PERC VACUUM/ROTN 10/26/07 LEFT COLONOSCOP W/ OR W/O BRSH SPEC 07/20/05 COLONOSCOP W/ OR W/O BRSH SPEC 05/01/16 normal - 10 year follow up LIGATE FALLOPIAN TUBE Tubal ligation MASTECTOMY, RADICAL 11/26 Left PAST SURGICAL HISTORY OF BACK SURGERY PAST SURGICAL HISTORY OF 10/06/2018 Exploratory laparotomy, total abdominal hysterectomy, bilateral salpingooophorectomy, and bladder and posterior culdesac peritoneum resected en bloc, omentectomy PLCMT LOCALZTN CLIP,PERC,DURING BREAST BX 10/26/07 LEFT REMOVAL OF TONSILS,<12 Y/O Tonsillectomy S PORT-A-CATH [id number] 11/09/2018 Penicillins; Sulfa (Sulfonamide Antibiotics) Medications reviewed: Yes FAMILY HISTORY FAMILY HISTORY Problem Relation Age of Onset Ovarian cancer Mother dx 50s Arthritis Father Cancer Maternal Aunt 7 aunts with breast or ovarian cancer. details unknown SOCIAL HISTORY: SOCIAL HISTORY Social History Tobacco Use Smoking status: Never Smoker Smokeless tobacco: Never Used Substance Use Topics Alcohol use: No Drug use: No Savana gets minimal exercise.. She watches her diet for sodium, low fat and low cholesterol generally not very much. List of current specialists seen: Oncology- [facility]ne onc/surg- Dr. Dawson End of Live Planning discussed including patients advanced directive wishes: Yes I am willing to follow Savana's advanced directives. PHQ-2 / Depression screen Depression Screening 12/30/2017 01/05/2019 01/29/2022 08/24/2022 PHQ-2 Score 0 0 0 0 Depression screening tool completed and reviewed. Based on score and interview, patient is not at risk for depression. Screening tool discussed with patient, and I recommended no further interventionat this time. Functional Ability/Safety Screen 1. Was the patient's timed Up and Go test unsteady or longer than 30 seconds? No 2. Does the patient need help with the phone, transportation, shopping,preparing meals, housework, laundry, medications or managing money? No 3. Does your home have rugs in the hallway, lack of grab bars in the bathroom (Y), lack of handrails on the stairs or have poor lighting? No Hearing Evaluation: normal PHYSICAL EXAM BP 136/70 (BP Site: Right Arm, BP Position: Sitting, BP Cuff Size: Regular Adult) Pulse 76 Resp18 Ht 162.6 cm (5' 4) Wt 60.3 kg (133 lb) BMI 22.83 kg/m Alert and oriented X 3: YES Body mass index is 22.83 kg/m . Visual acuity: sees Ophthalmology ASSESSMENT/PLAN: 72 year old female The following prevention plan was discussed during the office visit and provided to the patient: See below. Chief Complaint Patient presents with: Medicare Wellness Exam HPI Savana Patel is a 72 year old female who presents here today for extensive exam. Patient with Hx of HTN, impaired fasting blood sugar, hyperlipidemia, ovarian Ca with mets to the omentum, YESIKA with panic attacks, anemia as well as those reviewed and addressed below and in ROS Currently patient being treated with chemo once every 3 weeks related to her ovarian cancer. Has had some side affects but over all doing ok. Past medical history, appointments, medications, allergies reviewed. Previous Medical History PAST MEDICAL HISTORY Diagnosis Date Actinic keratosis 04/12/2007 DEANDRE positive 07/25/2016 Rheum felt just Arthritis. 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, NON-NEOPLASTIC 02/18/2007 Constipation 04/04/2015 Dysmetabolic syndrome X 12/28/2007 Essential hypertension 04/04/2015 GERD without esophagitis 07/24/2020 Hemorrhage of gastrointestinal tract, unspecified History of left mastectomy 05/05/2018 Impaired fasting glucose 11/21/2007 Internal hemorrhoids without mention of complication Leg cramps 01/08/[address] 07/31/2021 DPA is Living will on file 07/31/2021 DPA: Javier ( ) Malignant neoplasm of both ovaries (HCC) 10/26/2018 Mixed hyperlipidemia 04/04/2015 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 Osteoarthritis of multiple joints 07/27/2016 Osteopenia 12/28/2012 Other acne 05/29/2008 Other seborrheic keratosis 02/18/2007 Panic attacks 07/18/2012 SOLAR LENGINES///DYSCHROMIA OTHER 02/18/2007 Thrombocytopenia (HCC) 01/29/2022 chronic Trigger ring finger of left hand 07/24/2020 Trigger ring finger of right hand 07/24/2020 Previous Surgical History PAST SURGICAL HISTORY Procedure Laterality Date BX BREAST PERC VACUUM/ROTN 10/26/07 LEFT COLONOSCOPY FLX DX W/COLLJ SPEC WHEN PFRMD 07/20/05 COLONOSCOPY FLX DX W/COLLJ SPEC WHEN PFRMD 05/01/16 normal - 10 year follow up LIG/TRNSXJ FLP TUBE ABDL/VAG APPR UNI/BI Tubal ligation MAST RAD W/PECTORAL MUSCLES AXILLARY LYMPH NODES 11/26 Left PAST SURGICAL HISTORY OF BACK SURGERY PAST SURGICAL HISTORY OF 10/06/2018 Exploratory laparotomy, total abdominal hysterectomy, bilateral salpingooophorectomy, and bladder and posterior culdesac peritoneum resected en bloc, omentectomy PLCMT LOCALZTN CLIP,PERC,DURING BREAST BX 10/26/07 LEFT S PORT-A-CATH [id number] 11/09/2018 TONSILLECTOMY PRIMARY/SECONDARY <AGE 12 Tonsillectomy Family History FAMILY HISTORY Problem Relation Age of Onset Ovarian cancer Mother dx 50s Arthritis Father Cancer Maternal Aunt 7 aunts with breast or ovarian cancer. details unknown Patient Allergies ALLERGIES Allergen Reactions Penicillins Rash Sulfa (Sulfonamide * Unknown Current Medications Current Outpatient Medications on File Prior to Visit Medication Sig docusate sodium (COLACE ORAL) Take 1 tablet by mouth once daily. HYDROcodone-acetaminophen (NORCO) 5-325 mg per tablet Take 1-2 tablets by mouth every 6 hours as needed for pain. atorvastatin (LIPITOR) 10 mg tablet Take 1 tablet by mouth once daily. ramipril (ALTACE) 10 mg capsule Take 1 capsule by mouth once daily. promethazine (PHENERGAN) 25 mg tablet Take 1 tablet by mouth every 6 hours as needed. FOR NAUSEA dexAMETHasone (DECADRON) 4 mg tablet Take 5 tablets 12 and 6 hours prior to chemotherapy treatment. heparin 100 unit/mL injection NURSING USE ONLY: USE FOR IMPLANTED VASCULAR ACCESS DEVICE (IVAD) FLUSH. AMBULATORY/OUTPATIENT: PLEASE REORDER UPON HOSPITAL DISCHARGE May access implanted vascular access device (IVAD) as needed for treatment. Before de-accessing port, flush with 10-20ml normal saline and follow with 5 mL heparin (100 units/mL) (if no heparin allergy). De-access port on treatment completion. Surgical Lubricant Jelly gel For MRI Female Pelvis, MRI department to provide. Administer intra-vaginal Surgilube immediately prior the MRI procedure (total amount to patient toleranace). iv contrast (will be provided with radiology test) CT Chest ABD/PEL-Inject, intravenously, once for1 dose.No IV access, insert saline lock prior to the beginning of sedation, infusion, injection of imaging exam. Discontinue saline lock post exam. If Pt. has a central line or IVAD, may access for administration according to line specific nursing protocol. Once exam is complete flush line and de-access according to line specific nursing protocol in the CT contrast administration guidelines link. enteric contrast (will be provided with radiology test) For CT CHESTABD/PEL W IVCON Routine order Administer, As Directed One Time Only, via Oral, Rectal, both Oral and Rectal, Enteric Tube, Stoma orIndwelling Catheter, Enteric Contrast as designated per enteric contrast guidelines iv contrast (will be provided with radiology test) CT Chest ABD/PEL-Inject, intravenously, once for1 dose.No IV access, insert saline lock prior to the beginning of sedation, infusion, injection of imaging exam. Discontinue saline lock post exam. If Pt. has a central line or IVAD, may access for administration according to line specific nursing protocol. Once exam is complete flush line and de-access according to line specific nursing protocol in the CT contrast administration guidelines link. enteric contrast (will be provided with radiology test) For CT CHESTABD/PEL W IVCON Routine order Administer, As Directed One Time Only, via Oral, Rectal, both Oral and Rectal, Enteric Tube, Stoma orIndwelling Catheter, Enteric Contrast as designated per enteric contrast guidelines No current facility-administered medications on file prior to visit. Social History Social History Tobacco Use Smoking status: Never Smokeless tobacco: Never Vaping Use Vaping Use: Never used Substance Use Topics Alcohol use: No Drug use: No Review of Symptoms REVIEW OF SYSTEMS GENERAL: No weight loss, malaise or fevers HEENT: Negative for frequent or significant headaches, No changes in hearing no nose bleeds or other nasal problems. Vision slightly worse. NECK: Negative for lumps, goiter, pain and significant neck swelling RESPIRATORY: Negative for cough, hemoptysis, wheezing, COPD, dyspnea or shortness of breath CARDIOVASCULAR: Negative for chest pain, leg swelling, hypertension, CHF or palpitations GI: No nausea, vomiting, or diarrhea and No heartburn or reflux symptoms. No blood. Some constipation with the chemo : No history of dysuria, blood MUSCULOSKELETAL: has pains after the chemo SKIN: Negative for lesions, rash, and itching PSYCH: Negative for sleep disturbance, mood disorder and recent psychosocial stressors HEMATOLOGY/LYMPHOLOGY: Negative for prolonged bleeding, bruising easily or swollen nodes ENDOCRINE: Negative for cold or heat intolerance, polyuria, polydipsia and goiter NEURO: No history of headaches, syncope, paralysis, seizures or tremors EXAM: BP 136/70 (BP Site: Right Arm, BP Position: Sitting, BP Cuff Size: Regular Adult) Pulse 76 Resp18 Ht 162.6 cm (5' 4) Wt 60.3 kg (133 lb) BMI 22.83 kg/m Last 5 Encounter Wt Readings: Date: Wt: 08/24/2022 60.3 kg (133 lb) 08/11/2022 62.1 kg (137 lb) 08/04/2022 60.8 kg (134 lb) 08/04/2022 60.8 kg (134 lb) 07/20/2022 61.9 kg (136 lb 8 oz) General Appearance: Well appearing, alert, in no acute distress, well-hydrated, well nourished.. Skin: Skin color, texture, turgor normal, no suspicious rashes or lesions. Head: Normocephalic, no masses, lesions, tenderness or abnormalities. Eyes: Anicteric sclera. Pupils are equally round and reactive to light. Extraocular movements are intact. . Ears: External ears, TM's normal, canals clear. Neck: Supple, no adenopathy; thyroid symmetric, normal size, no bruits. Lungs: Lungs clear to auscultation. No wheezing, rhonchi, rales.. Heart: RRR without murmur, gallop, or rubs. No ectopy. Abdomen: Normal abdominal exam, Abdomen soft, non-tender. Bowel sounds normal. No masses, organomegaly. Extremities: No deformities, edema, skin discoloration, Good capillary refill. . Musculoskeletal: Muscular strength intact, No joint swelling, deformity, or tenderness. Peripheral Pulses: Normal. Neurologic: Gait normal. Reflexes normal and symmetric. Sensation to light touch intact.. Health Maintenance List SHINGRIX VACCINE(1 of 2) due on 11/07/2013 DTAP,TDAP,TD(2 - Td or Tdap) due on 11/29/2020 ADVANCE DIRECTIVE DISCUSSION Never done DEPRESSION ASSESSMENT Never done MAMMOGRAM due on 07/04/2022 ANNUAL PCP TEAM CHRONIC DISEASE VISIT due on 01/29/2023 BP CONTROLLED (<130/80) due on 08/04/2023 DIABETES SCREEN due on 08/04/2025 COLORECTAL CANCER SCREENING due on 05/01/2026 LIPID SCREEN due on 08/04/2027 BONE DENSITY Completed HEPATITIS C SCREENING Completed COVID-19 VACCINE Completed PNEUMOCOCCAL: 65+ Completed INFLUENZA Discontinued Data reviewed Component Latest Ref Rng & Units 01/19/2022 07/20/2022 08/04/2022 WBC 3.70 - 11.00 k/uL 5.37 11.19 (H) RBC 3.90 - 5.20 m/uL 4.51 4.32 Hemoglobin 11.5 - 15.5 g/dL 12.1 11.4 (L) Hematocrit 36.0 - 46.0 % 37.7 34.9 (L) MCV 80.0 - 100.0 fL 83.6 80.8 MCH 26.0 - 34.0 pg 26.8 26.4 MCHC 30.5 - 36.0 g/dL 32.1 32.7 RDW-CV 11.5 - 15.0 % 15.1 (H) 15.4 (H) Platelet Count 150 - 400 k/uL 137 (L) 191 MPV 9.0 - 12.7 fL 10.0 9.9 Neut% % 63.5 75.4 Abs Neut (ANC) 1.45 - 7.50 k/uL 3.41 8.45 (H) Lymph% % 25.1 13.0 Abs Lymph 1.00 - 4.00 k/uL 1.35 1.45 [place]% % 9.7 9.7 Abs [place] <0.87 k/uL 0.52 1.08 (H) Eosin% % 0.9 0.3 Abs Eosin <0.46 k/uL 0.05 0.03 Baso% % 0.6 0.6 Abs Baso <0.11 k/uL 0.03 0.07 Immature Gran % % 0.2 1.0 IMMATURE GRANS (ABS) <0.10 k/uL <0.03 0.11 (H) NRBC /100 WBC 0.0 0.0 Absolute nRBC <0.01 k/uL <0.01 <0.01 DTYPE Auto Auto Protein, Total 6.3 - 8.0 g/dL 7.3 7.0 Albumin 3.9 - 4.9 g/dL 4.6 4.3 Calcium 8.5 - 10.2 mg/dL 9.4 9.0 Bilirubin, Total 0.2 - 1.3 mg/dL 0.8 0.4 Alkaline Phosphatase 34 - 123 U/L 83 93 AST 13 - 35 U/L 20 18 ALT 7 - 38 U/L 11 11 Glucose 74 - 99 mg/dL 89 115 (H) BUN 7 - 21 mg/dL 26 (H) 23 (H) Creatinine 0.58 - 0.96 mg/dL 0.76 0.71 Sodium 136 - 144 mmol/L 137 137 Potassium 3.7 - 5.1 mmol/L 4.3 4.4 Chloride 97 - 105 mmol/L 101 102 CO2 22 - 30 mmol/L 24 24 Anion Gap 9 - 18 mmol/L 12 11 eGFR >=60 mL/min/1.73m 83 90 Total Cholesterol, Nonfasting <200 mg/dL 155 140 Triglycerides, Nonfasting <150 mg/dL 96 95 HDL Cholesterol, Nonfasting >39 mg/dL 49 29 (L) LDL Cholesterol, Nonfasting <100 mg/dL 87 92 Non HDL Cholesterol, Nonfasting <130 mg/dL 106 111 VLDL Cholesterol, Nonfasting <30 mg/dL 19 19 Total Chol/HDL Ratio, Nonfasting <5.10 mg/dL 3.16 4.83 LDL/HDL Ratio, Nonfasting <2.54 mg/dL 1.78 3.17 (H) Hemoglobin A1C 4.3 - 5.6 % 5.6 5.9 (H) Estimated Average Glucose mg/dL 114 123 Magnesium 1.7 - 2.3 mg/dL 2.2 2.0 A/P ASSESSMENT/PLAN: 1. Medicare annual wellness visit, subsequent - ICD9: V70.0, ICD10: Z00.00 (primary diagnosis) - Counseled on healthy diet and regular exercise - Calcium intake with supplements or by diet of 1000 mg/day for under 50, 1200- 1500 mg/day for 50+ - Follow up for annual exam in one year 2. Essential hypertension - ICD9: 401.9, ICD10: I10 - good control - Continue current medication(s) - Recommended regular aerobic exercise. - Recommend home blood pressure monitoring, to bring results in on next visit - Goal of BP <130/80 3. Mixed hyperlipidemia - ICD9: 272.2, ICD10: E78.2 - good control - Encouraged following a low fat, low cholesterol diet. - Discussed the benefits of regular aerobic exercise and weight loss. - Encouraged following a low carbohydrate, healthy oil intake diet. - Continue current therapy. 4. GERD without esophagitis - ICD9: 530.81, ICD10: K21.9 - controlled with diet. 5. Impaired fasting glucose - ICD9: 790.21, ICD10: R73.01 - stable. Currently getting steroids with her chemo so her A1c is slightly elevated. 6. Panic attacks - ICD9: 300.01, ICD10: F41.0 - stable not needing changes. 7. Malignant neoplasm of upper-outer quadrant of right breast in female, estrogen receptor positive(HCC) - ICD9: 174.4, V86.0, ICD10: C50.411, Z17.0 - management per [facility] and Heme/Onc 8. Malignant neoplasm of both ovaries (HCC) - ICD9: 183.0, ICD10: C56.3 - management per [facility] and Heme/Onc 9. Carcinomatosis (HCC) - ICD9: 199.0, ICD10: C80.0 - management per [facility] and Heme/Onc 10. Omental metastasis (HCC) - ICD9: 197.6, ICD10: C78.6 - management per [facility] and Heme/Onc 11. Anemia, unspecified type - ICD9: 285.9, ICD10: D64.9 - management per hematology 12. Chemotherapy-induced neuropathy (HCC) - ICD9: 357.6, E933.1, ICD10: G62.0, T45.1X5A - stable 13. Thrombocytopenia (HCC) - ICD9: 287.5, ICD10: D69.6 - as per #11 14. Primary insomnia - ICD9: 307.42, ICD10: F51.01 - stable at this time no changes. 15. Advance directive discussed with patient - ICD9: V65.49, ICD10: Z71.89 - up to date. F/u 6 months routine check CMP, Lipid and A1c prior I spent a total of 40 minutes on the date of the service which included preparing to see the patient, [id number] patient care, completing clinical documentation, performing a medically appropriate examination, counseling and educating the patient/family/caregiver and ordering medications, tests, or procedures. Shay Cardoza MD documented in this encounterSt. [facility]03-03-[facility]23 History of Present illness Narrative* Rita Braden RT(R) - 08/21/2022 9:20 AM EST Radiology Service Progress Note PATIENT NAME: Savana Patel DATE OF SERVICE: August 21, 2022 TIME: 9:52 AM PATIENT IDENTITY VERIFICATION COMPLETED USING TWO (2) IDENTIFIERS: Name and Date of confirmedby patient verbally. FALL SCREENING: Has the patient had 2 falls in the last year or 1 fall with injury or currently using an Ambulatory Assistive Device (Walker, Cane, Wheelchair, Crutches, etc.)? No PATIENT GENDER DATA: Female. status: : No status: NO. PATIENT RELEVANT IMPLANT DATA REVIEWED: Yes RADIOLOGY DEPARTMENT: CT; Exam(s) Completed: Abdomen/Pelvis PERIPHERAL IV DATA: power port accessed by Xierkang SIGNED BY: RT Laurie(R) August 21, 2022 9:52 AM documented in this encounterSt. Anthony'S Hospital02-28-2023 Miscellaneous Notes* Telephone Encounter - Laura Alfonso RN - 08/18/2022 2:12 PM EST Patient calls and has rescheduled appointment with Dr. Cote for 08/25/22. Patient denies any other issues or concerns. Antonina Alfonso RN * Telephone Encounter - Laura Alfonso RN - 08/14/2022 9:59 AM EST Call to patient, states that she started with belching on Wednesday and not getting better. Denies nausea, able to eat and nothing makes it better or worse. Denies any pain or discomfort related to this. No issues with bowels and last BM yesterday. Advised to try taking phenergan and let us know ifnot helping. Also states prior to her Fulphila shot, she took Claritin the day before, the day of and the day after. She did not take yesterday as she thought she was not having any pain. States last pm, she started with some twitching, sharp pain in her legs that only last 20 minutes. Today, her legs feel weak, and her knees hurt. Instructed patient to take Claritin today and if pain not improved to try her pain medication (Bristol). Patient denies any other issues. Agreeable with above plan. Aware that I will update Dr. Cruz and call back if any further instructions. Also, verified that patient has follow up VV with Dr. Cote on 09/02/[address] and plan of whether to add in Avastin to treatments. Patient states she wants to call them on 08/17/22and ask this visit should be prior to C3? She will call and let us know if appointment has been moved up. Antonina Alfonso RN * Telephone Encounter - Peyton Orellana RN - 08/14/2022 8:38 AM EST Patient calling for advise from Dr. Cruz's office. Pt reports she started chemo on 08/10/22. Pt states she has been belching frequently. This is new for her. Asking if she should take her phenergan for this or other advise? Denies any nausea. Reports she has no pain but her knees and joints are aching. States she was told this may happen asside effect of chemo. She is asking if she should take the Bristol for this or try something else first? States she does not want to take medicine if she does not have to. Asking how long to expect her joints to ache after starting chemo? Please advise patient at home or cell number. Thank you. documented in this encounterSt. Anthony'S Hospital02-21-2023 Nurse Note* Kristannito Hernández LPN - 08/11/2022 3:10 PM EST Patient presents with: Imm/Inj Pt is identified by name and birthdate: Yes. Allergies and medications reviewed. Latex allergy? No. Does this patient have: Unplanned weight loss or gain of greater than 10 pounds, or a change of appetite over the last year? No Does the patient have any concerns about safety in the home/falls? Not at risk for falls Has the patient fallen in the past year? No Does the patient have difficulty performing or completing routine daily living activities? No Does this patient have concerns about personal safety? No Is patient having pain? Pain: No=0 (pain 0 on a scale of 0-10). Health Maintenance: Reviewed and updated. Does patient have MyChart access or Caregiver proxy: yes Pt/Caregiver willingness and readiness to learn assessed: Yes. Barriers: none Fulphilia injection administered,right arm, only, tolerated well, no immediate adverse reactions noted. Kristan Hernández LPN documented in this encounterSt. Anthony'S Hospital02-15-2023 Miscellaneous Notes* Telephone Encounter - Beatrice Chu LPN - 08/05/2022 12:58 PM EST Patient denies reaction to first dose of Taxol and understands that she will receive IV dexamethasone on the day of treatment. Beatrice Chu LPN * Telephone Encounter - Js Cruz DO - 08/05/2022 12:10 PM EST If she did not have an infusion reaction to the first dose of Taxol, then she does not need to takethe dexamethasone the day prior to cycle 2. She will get an IV dose of dexamethasone at the time oftreatment. Js Cruz DO * Telephone Encounter - Rut Mcintyre LPN - 08/05/2022 11:25 AM EST Pt gets carbo, paclitaxel every 21 days. Needs dex for each tx. I added this to the Sig on her Rx to reflect this. Can we send new Rx with new SIG so she can get filled? Rut Mcintyre LPN * Telephone Encounter - Lorna Kasey Pss - 08/05/2022 10:26 AM EST Patient called stating she called pharmacy for dexamethasone and they informed her she cannot refill until 08/18. Patient states she needs to have medication for 08/10 appointment. Please call patient and advise. documented in this encounterSt. Anthony'S Hospital02-14-2023 History of Present illness Narrative* Kasi Welch APRN.REGIONAL WILDLIFE AGENT - 08/04/2022 9:38 AM EST Chief Complaint Patient presents with: Established Patient HPI: Savana Patel is a 72 year old female who presents here today for evaluation for treatment on Wednesday. Per Dr. Cruz's previous note: H/o DCIS (left mastectomy), mixed hyperlipidemia, hypertension, osteoarthritis who underwent evaluation for worsening pelvic pain. Initially underwent pelvic ultrasound on 09/01/2018. Uterus appeared normal. The endometrial stripe was 2.3 mm. Right and left ovaries appeared normal. However there was a large amount of free fluid in the pelvic cul-de-sac. CT A/P 09/08/2018: Liver: No mass. Homogeneous texture. Biliary: No ductal dilatation is seen. Gallbladder is unremarkable. Spleen: Spleen is unremarkable. Pancreas: No mass or duct dilation. Adrenals: Adrenal glands are unremarkable. Kidneys: No mass, calculus or hydronephrosis is seen. GI tract: No bowel dilatation is seen. No evidence of obstruction. Lymph nodes: No evidence of adenopathy. Mesentery/Peritoneum: There is increased soft tissue density best seen in the coronal views extending from the lower abdomen into the pelvic area. This could represent peritoneal involvement with tumor. This is seen on coronal image 37 and axial images 99 through 122. It extends across the anterior aspect of the pelvic area seen on axial image 124. Vasculature: No evidence of dilatation of the abdominal aorta. CT PELVIS: Pelvis: There is a large amount of free fluid or loculated fluid in the pelvis suggesting that there could be an enhancing rim surrounding this fluid is seen on image 127 and measures 10.6 x 6.1 cm. Bones/Soft Tissues: No significant findings identified. Lower thorax: Unremarkable. CA125 was 1153 U/mL. Had employee relations consultant onc evaluation and CT chest unremarkable. Underwent exploratory laparotomy, optimal tumor bulking, total abdominal hysterectomy, bilateral salpingo-oophorectomy, resection of bladder cul-de-sac and pelvic peritoneal disease along with resection of omental caking with super colic omentectomy on 10/06/2018. Pathology: FINAL DIAGNOSIS 1. 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 2. 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 3. Uterus, cervix, bilateral ovaries and fallopian tubes, and bladder/pelvic peritoneum, hysterectomy and excision (C) Left fallopian tube - High grade serous carcinoma (see comment and synoptic report). Right fallopian tube - Positive for involvement by high grade serous carcinoma. Bilateral ovaries - Positive for involvement by high grade serous carcinoma. Uterine serosa - Positive for involvement by high grade serous carcinoma. Bladder/pelvic peritoneum - Positive for involvement by high grade serous carcinoma. Endometrium - Inactive endometrium. Myometrium - Negative for malignancy. Cervix - Negative for malignancy. SYNOPTIC REPORT OF BRAUN PATHOLOGIC FINDINGS UTERUS, CERVIX, BILATERAL TUBES AND OVARIES, BLADDER, AND PELVIC PERITONEUM: Procedure: Total hysterectomy and bilateral salpingo-oophorectomy Omentectomy Peritoneal biopsies Specimen Integrity: Left fallopian tube serosa intact Primary Tumor Site: Left fallopian tube Ovarian Surface Involvement: Present Specify laterality (if applicable): Bilateral Fallopian Tube Surface Involvement: Present Specify laterality (if applicable): Bilateral Tumor Size: Greatest dimension: 1.6 cm Histologic Type: Serous carcinoma Histologic Grade: Not applicable Two-tier grading System: High grade Implants: Not applicable/not sampled Involvement of other tissues/organs: Right ovary Left ovary Right fallopian tube Pelvic peritoneum Omentum Other organs/tissues (specify): Uterine serosa Largest extrapelvic peritoneal focus, macroscopic (greater than 2 cm) Peritoneal Ascitic Fluid, Not submitted/unknown Treatment Effect: No known presurgical therapy Regional Lymph Nodes: No nodes submitted or found Pathologic Stage Classification (pTNM, AJCC 8th ed) TNM Descriptors: Not applicable Primary Tumor (pT): pT3c: Macroscopic peritoneal metastasis beyond pelvis more than 2 cm in greatest dimension with or without metastasis to the retroperitoneal lymph nodes (includes extension to capsule of liver and spleen without parenchymal involvement of either organ) Regional Lymph Nodes (pN): pNX: Cannot be assessed Distant Metastasis (pM): Not applicable/Not confirmed pathologically in this case Previous therapy: 1) 11/11/2018 - 02/03/2019: PACLITAXEL 80 D1,8,15 CARBOPLATIN 6 D1 - Q21D s/p 4 cycles. *neutropenia/thrombocytopenia causing treatment delay. Neulasta OnPro added; switch to Q21D dosing of Taxol with cycles 5 & 6 02/23/2019 - 03/17/2019: PACLITAXEL 135 D1 CARBOPLATIN 6 D1 - Q21D s/p 2 cycles. 2) 06/30/2019 - 06/20/2021: olaparib (LYNPARZA) 150 mg tablet; 300 mg BID. Presents for ongoing oncologic management. Interim history: CTs 06/29/2022: Mesentery/Peritoneum: * New 0.4 cm anterior mesenteric fat nodule (8:57) * Confluent infiltrative soft tissue in RIGHT false pelvis surrounding the terminal ileum and ascending colon (cecum deep in pelvis) and probably affecting the sigmoid colon; difficult to precisely measure as it envelops bowel but including bowel measures approximately 4.5 x 2.9 cm (8:101); process extends to the RIGHT psoas muscle * Several small subtle anterior mesenteric fat nodules * No free abdominal fluid MRI pelvis 07/02/2022: Similar imaging findings since CT 06/29/2022, redemonstrating pelvic peritoneal/serosal carcinomatosis involving segments of bowel predominantly in the right anterior pelvis, with confluent soft tissue encasing the proximal ascending colon and causing relative upstream dilation of the low-lying cecum suggesting developing colonic obstruction. No small bowel dilation. No pelvic lymphadenopathy. Recommended to retry carbo/paclitaxel with potential addition michael if disease clears the bowel. Pt. here today with family member. No new concerns today. Appetite:Good. Wt. down 2# since last visit. Energy level:After chemo I'm a little down. Denies fevers. Mouth:denies sores Resp:denies cough or sob Cardiac:denies chest pain/palpitations GI:denies abd pain, occ. 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 Past medical history, appointments, medications, allergies reviewed. No changes. EXAM: BP 101/62 Pulse 70 Temp 36.7 C (98.1 F) (Temporal) Wt 60.8 kg (134 lb) SpO2 98% BMI 22.88kg/m APPEARANCE Well appearing, alert, in no acute distress, well-hydrated, well nourished. HEART RRR with normal S1 and S2, no murmurs LUNG clear to auscultation LYMPH NODES No cervical lymphadenopathy, No supraclavicular lymphadenopathy, and No axillary lymphadenopathy. ABDOMEN bowel sounds normoactive, soft, non-tender EXTREMITIES No edema NEURO Awake, alert and oriented x 3, Normal gait, and No involuntary motions. SKIN Skin color, texture, turgor normal, no suspicious rashes or lesions LABS: Component Latest Ref Rng & Units 03/23/2022 04/13/2022 07/20/2022 08/04/2022 WBC 3.70 - 11.00 k/uL 5.97 5.78 5.40 11.19 (H) RBC 3.90 - 5.20 m/uL 4.56 4.47 4.54 4.32 Hemoglobin 11.5 - 15.5 g/dL 12.4 12.0 12.1 11.4 (L) Hematocrit 36.0 - 46.0 % 38.2 37.6 36.4 34.9 (L) MCV 80.0 - 100.0 fL 83.8 84.1 80.2 80.8 MCH 26.0 - 34.0 pg 27.2 26.8 26.7 26.4 MCHC 30.5 - 36.0 g/dL 32.5 31.9 33.2 32.7 RDW-CV 11.5 - 15.0 % 14.5 14.7 14.5 15.4 (H) Platelet Count 150 - 400 k/uL 139 (L) 143 (L) 148 (L) 191 MPV 9.0 - 12.7 fL 9.6 9.9 9.4 9.9 Neut% % 65.7 64.2 88.3 75.4 Abs Neut (ANC) 1.45 - 7.50 k/uL 3.92 3.71 4.77 8.45 (H) Lymph% % 23.8 24.9 11.1 13.0 Abs Lymph 1.00 - 4.00 k/uL 1.42 1.44 0.60 (L) 1.45 [place]% % 9.2 9.7 0.4 9.7 Abs [place] <0.87 k/uL 0.55 0.56 <0.03 1.08 (H) Eosin% % 0.7 0.7 0.0 0.3 Abs Eosin <0.46 k/uL 0.04 0.04 <0.03 0.03 Baso% % 0.3 0.3 0.0 0.6 Abs Baso <0.11 k/uL <0.03 <0.03 <0.03 0.07 Immature Gran % % 0.3 0.2 0.2 1.0 IMMATURE GRANS (ABS) <0.10 k/uL <0.03 <0.03 <0.03 0.11 (H) NRBC /100 WBC 0.0 0.0 0.0 0.0 Absolute nRBC <0.01 k/uL <0.01 <0.01 <0.01 <0.01 DTYPE Auto Auto Auto Auto CMP/Mag/CA125: Pending ASSESSMENT/PLAN: 1. 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 - Reviewed CBC with pt. - CMP/Mag/CA125 pending. - CT abd/pelvis prior to cycle #3-then follow up with Dr. Cote (needs appt. prior to cycle #3). - May be able to add Avastin cycle #3. - Proceed as scheduled on Wednesday for #2 carbo/taxol pending all labs. - Follow up as scheduled otherwise. - Pt. aware to call office with any questions/concerns. The patient indicates understanding of these issues and agrees with the plan. All documentation from previous visit of 07/10/22-Dr. Cruz was copied and pasted, documentation hasbeen reviewed and edited as necessary for today's visit. Kasi Welch APRN.REGIONAL WILDLIFE AGENT documented in this encounterSt. Anthony'S [facility]02-14-2023 History of Present illness Narrative* Carolyne Sung RN - 08/04/2022 7:46 AM EST Patient is here for IVAD port flush/blood draw per [facility] protocol. IVAD is located in right upper chest. Site cleansed with Chloraprep IVAD accessed with a #20 gauge 3/4 non-coring Gripper needle Flush with 5cc's Normal Saline. Blood Return: Good. 10 cc's blood aspirated and discarded. Blood drawn for CBC and CMP. Flushed with: 20 ml Normal Saline and 5 ml Heparin Lock Flush. Non-coring needle removed. Paper tape applied to puncture site. Site negative for redness, edema or tenderness. Patient tolerated procedure well. documented in this encounterSt. Anthony'S Hospital02-07-2023 Miscellaneous Notes* Telephone Encounter - Rut Mcintyre LPN - 07/28/2022 2:52 PM EST Advised bread without seeds for now. He states she was having some GI issues and has spoken at length with Antonina Alfonso RN over the last couple days. Notes reviewed. Suggested a bland diet, no bread with seeds in for now. Discussed overuse of GI meds for diarrhea and constipation. Spouse states shehad bone pain after her neulasta injection. Recommended Claritin the day before, day of and day after injection and see if this helps alleviate the bone pain associated with neulasta. Rut Mcintyre LPN * Telephone Encounter - September Sara - 07/28/2022 2:18 PM EST Patient spouse called in to the office stating that patient is not supposed to eat seeds and is wondering if patient can have a soft rye bread that contains wheat and flax seeds. documented in this encounterSt. Anthony'S Hospital02-07-2023 Miscellaneous Notes* Telephone Encounter - Laura Alfonso RN - 07/28/2022 10:11 AM EST TOXICITY CHECK SYMPTOM ASSESSMENT The patient is on Taxol/Carbo Headache: No Visual Changes: No Dizziness: No Do you have any periods of confusion? No Mood changes: No Mouth or throat pain: No Appetite: no changes in appetite, appetite good Taste changes: No Nausea: No Vomiting: No Heartburn: No. Weight gain/loss: Unable to assess Episodes of palpitations/chest discomfort/pressure/pain No Shortness of breath: No Cough: No Diarrhea: yes, States she has been ok until this am. States she started Senekot on 07/24/22 and takes2 each pm. States she has been only having small BM's over the weekend and yesterday. So last pm,she did not take Senekot but took 30ml of MOM. This am she has had loose stool that is now watery. 4-5 episodes total so far but seems better at time of phone call. States her rectal area is very sore. Advised to not take a stool softener today. Next time she needs a dose of MOM to use only 15ml. Patient does not want to try Miralax as she states it upset her stomach and would throw it up. Patient wanting to know what to do for swollen and irritated rectal area She is asking if ok to soak in warm water and advised ok. Patient to call if no relief or diarrhea continues throughout the day. Constipation: no Bladder/Urinary Changes: None Pain: No=0 (pain 0 on a scale of 0-10). States she used Vicoden once on 07/23/22 and no further pain or need for pain medication since 07/24/22 Fever: No Chills: No Cold sensitivity: No Numbness/weakness: No Edema: No Skin changes: No Itching: No Yellowing of skin or eyes: No Musculoskeletal/joint changes/issues No Bleeding issues: No Activity Level (0-100%): same as baseline Do you need to take naps? No Does the patient need interventions or same day appointment:No Reinforced CURRENT treatment education based on current and anticipated symptoms. Discussed port/line care and patient verbalizes understanding: Not Applicable Patient instructed to contact office or after hours Hematology/Oncology fellow for: temperature ? 100.4; questions or concerns. Patient verbalized understanding of when to seek medical attention and after hours number protocol. Laura Alfonso RN documented in this encounterSt. Anthony'S [facility]02-02-2023 Miscellaneous Notes* Telephone Encounter - Kristan Hernández LPN - 07/23/2022 4:41 PM EST [facility] Medication is on back order.Pretty levy. Pt. Would like sent to [facility]. Kristan Hernández LPN * Telephone Encounter - Beatrice Chu LPN - 07/23/2022 2:42 PM EST Please send electronically. First attempt printed Rx. Beatrice Chu LPN documented in this encounterSt. Anthony'S Hospital02-02-2023 Miscellaneous Notes* Telephone Encounter - Laura Alfonso RN - 07/23/2022 2:45 PM EST Call to patient and aware of below note. Rx to [facility] in [place]. Clarified stool softener to use with Dr. Cruz. Patient to use Senokot instead of Ducolax. Questions answered. Antonina Alfonso RN * Telephone Encounter - Js Cruz DO - 07/23/2022 12:13 PM EST Recommended trial of Vicodin for pain. One to 2 tablets every 6 hours. Do not take Tylenol along with it. May exacerbate her constipation so I recommend Dulcolax 1 tablet twice a day as needed for constipation in addition to milk of magnesia. Js Cruz DO * Telephone Encounter - Laura Alfonso, RN - 07/23/2022 9:40 AM EST Spoke with patient. Started Taxol/Carbo 07/20 and Fulphila on 07/21/22. Denies fever/chills. Emesis x1 on , resolved without medication. Achy, constant pain in bilateral hand/fingers, worse on the right. Sometimes sharp, shooting. Rates4-5/10. Not effecting ADL's. Started on Wednesday. Tried Tylenol last pm but did not help. States Tylenol never helps my pain. States she had some neuropathy in fingers previous treatment. Denies anypain in feet. Patient aware that the Taxol could be causing the increase in symptoms, pain. States she sleeps on her right side with her right arm under her pillow and has been noticing when she wakes up that her right hand/arm is red. This resolves after she gets up and moves around. Denies pain/swelling/heat in the arm. States she did not notice this prior to start of chemo. Headache, just above the eyes rates 2-3/10. just enough to know it's there Started Wednesday. Tylenol not helping. States she is prone to headaches with dry air from heat Feels weak/tired, shaista shaky when she gets up and moves around. Denies lightheadedness/dizziness. Fluid intake: 16.9oz water x5 and glass of milk in the am Eating small frequent meals and tolerating. Complains of lot of burping Feels bloated/full. Last good BM was prior to start chemo. Has had small BM's daily but feels she needs to go more. States Miralax does not work for her but has MOM atthe house. Instructed to use per bottle instruction, start Colace daily and then use MOM as needed and not daily. Patient denies other issues. She is aware that I will discuss with Dr. Cruz and call back with further instructions. Antonina Alfonso RN * Telephone Encounter - Patsy Smart - 07/23/2022 8:44 AM EST Patient is requesting to be contacted in order to discuss symptoms from her chemotherapy. She is experiencing body aches, primarily on the right side of her body. She is concerned that this is stemming from her port as well. documented in this encounterSt. Anthony'S Hospital01-31-2023 History of Present illness Narrative* Rut Mcintyre LPN - 07/21/2022 2:38 PM EST Pt here for injection of Fulphilia. Given sq in right arm. Pt tolerated well. Pt observed for 15 minutes since this is her first injection of Fulphilia. No reaction noted. Pt leaves with . Rut Mcintyre LPN documented in this encounterSt. Anthony'S Hospital01-31-2023 Miscellaneous Notes* Telephone Encounter - Laura Alfonso RN - 07/21/2022 11:08 AM EST CYCLE 1/DAY 1 POST TREATMENT CALL Today's date: July 21, 2022 Treatment Regimen: Taxol/Carbo C1D1 Date: 07/20/22 Called patient to follow-up on symptom management. Spoke with patient, states she is doing ok. cheeks are mary and feel exhausted but denies any issues. She is concerned about her elevated blood sugar yesterday. She had breakfast that consisted of bagel and an egg. Also made aware that the decadron taken at home 6 and12 hours prior to labs would increase blood sugar. Patient has labs on 08/04/22 and plans to fast 10-12 hours prior for a true blood glucose reading. She also has labs for Dr. Cardoza also which includes a Hgb A1C. SYMPTOM ASSESSMENT Neuro: None CV/Resp: None GI/: None Integument: None Activity: Activity Level (0-100%): decreased Pain: No=0 (pain 0 on a scale of 0-10). Fever: No Chills: No Any new referrals needed? No Reinforced CURRENT treatment education based on current and anticipated symptoms. Discussed port/line care and patient verbalizes understanding: Not Applicable Patient instructed to contact office or after hours Hematology/Oncology fellow for: temperature ? 100.4; questions or concerns. Patient verbalized understanding of when to seek medical attention and after hours number protocol. Laura Alfonso RN documented in this encounterSt. Anthony'S Hospital01-25-2023 Miscellaneous Notes* Telephone Encounter - Laura Alfonso RN - 07/15/2022 2:11 PM EST Patient aware Antonina Alfonso RN * Telephone Encounter - Js Cruz DO - 07/15/2022 1:57 PM EST The following approved medication requests have been transmitted electronically. Requested Prescriptions Signed Prescriptions Disp Refills promethazine (PHENERGAN) 25 mg tablet 30 tablet 2 Sig: Take 1 tablet by mouth every 6 hours as needed. FOR NAUSEA Authorizing Provider: JS CRUZ DO * Telephone Encounter - Laura Alfonso RN - 07/15/2022 1:20 PM EST Chemotherapy teaching completed today. Patient will have Aloxi as premedication. Promethazine Rx attached. Please review and sign. Antonina Alfonso RN documented in this encounterSt. Anthony'S Hospital01-25-2023 History of Present illness Narrative* Laura Alfonso RN - 07/15/2022 11:33 AM EST Patient teaching was completed over the phone. Patient expressed wanting to discuss Avastin at a later time. Laura Alfonso RN * Laura Alfonso RN - 07/15/2022 10:34 AM EST ONCOLOGY PATIENT EDUCATION NOTE TOPIC: Chemotherapy, Medications: Taxol/Carboplatin READINESS TO LEARN: COGNITIVE ABILITY: Alert and oriented MOTIVATION TO LEARN: Interested FAMILY SUPPORT: Unable to assess - Family not present INSTRUCTION PROVIDED TO: Patient INSTRUCTION PROVIDED BY: Nurse Coordinator PATIENT LEARNS BEST BY: Multiple Methods FACTORS AFFECTING LEARNING: None PHYSICAL LIMITATIONS AFFECTING LEARNING: None LEARNING RESPONSE DIAGNOSIS: Fallopian Tube cancer METHOD OF INSTRUCTION: Individual instruction Written instruction - handouts Verbal instruction PATIENT/FAMILY RESPONSE: Verbalizes understanding of: CHEMOTHERAPY-Regimen, toxicity and side effects FOLLOW UP PLAN: Recommend - Recommend continued instruction and follow up as directed Contact information given. SUPPLEMENTAL MATERIAL: Written material was provided at this visit with the following information: - Chemotherapy education was provided by a pharmacist NO - Side effect management information was provided/discussed including but not limited to: abdominaldiscomfort, anemia, appetite changes, arthralgia, bowel habit changes, electrolyte disturbances, fatigue, hair loss, hearing impairment, infection, kidney toxicity, mouth hygiene, mucositis, myalgia,nausea/vomitting, neutropenia, peripheral edema, peripheral neuropathy, rash, shortness of breath, skin changes, taste changes, thrombocytopenia, vision disorder/distrubance YES - Provided important phone numbers and contacts during and after hours. YES - Provided information on symptoms that require immediate assistance. YES - Provided Chemotherapy when to call handouts YES - Preventing infection. YES - Treatment schedule and confirmation of appointment times. YES - Available support groups. YES - The importance of contraception during the course of chemotherapy NA - Neutropenic fever protocol discussed with patient, which included the importance of reporting anyfever of 100.4F (38.0C) or greater to the healthcare team as noted on the provided wallet card and/or magnet. YES Time Spent: 60 minutes REFERRAL (RECOMMENDATION): N/A Laura Alfonso RN documented in this encounterSt. Anthony'S Hospital01-20-2023 Miscellaneous Notes* Telephone Encounter - Laura Alfonso RN - 07/10/2022 11:06 AM EST Met with patient and introduced myself. Patient was given a folder with [facility]ocare information on Taxol/Carbo and Avastin. Patient aware this nurse will review on scheduled appointment date. Antonina Alfonso RN documented in this encounterSt. 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 HPI: The patient is a 68-year-old female with a past medical history significant for DCIS (left mastectomy), mixed hyperlipidemia, hypertension, osteoarthritis who underwent evaluation for worsening pelvic pain. Initially underwent pelvic ultrasound on 09/01/2018. Uterus appeared normal. The endometrial stripe was 2.3 mm. Right and left ovaries appeared normal. However there was a large amount of free fluid in the pelvic cul-de-sac. CT A/P 09/08/2018: Liver: No mass. Homogeneous texture. Biliary: No ductal dilatation is seen. Gallbladder is unremarkable. Spleen: Spleen is unremarkable. Pancreas: No mass or duct dilation. Adrenals: Adrenal glands are unremarkable. Kidneys: No mass, calculus or hydronephrosis is seen. GI tract: No bowel dilatation is seen. No evidence of obstruction. Lymph nodes: No evidence of adenopathy. Mesentery/Peritoneum: There is increased soft tissue density best seen in the coronal views extending from the lower abdomen into the pelvic area. This could represent peritoneal involvement with tumor. This is seen on coronal image 37 and axial images 99 through 122. It extends across the anterior aspect of the pelvic area seen on axial image 124. Vasculature: No evidence of dilatation of the abdominal aorta. CT PELVIS: Pelvis: There is a large amount of free fluid or loculated fluid in the pelvis suggesting that there could be an enhancing rim surrounding this fluid is seen on image 127 and measures 10.6 x 6.1 cm. Bones/Soft Tissues: No significant findings identified. Lower thorax: Unremarkable. CA125 was 1153 U/mL. Had employee relations consultant onc evaluation and CT chest unremarkable. Underwent exploratory laparotomy, optimal tumor bulking, total abdominal hysterectomy, bilateral salpingo-oophorectomy, resection of bladder cul-de-sac and pelvic peritoneal disease along with resection of omental caking with super colic omentectomy on 10/06/2018. Pathology: FINAL DIAGNOSIS 1. 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 2. 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 3. Uterus, cervix, bilateral ovaries and fallopian tubes, and bladder/pelvic peritoneum, hysterectomy and excision (C) Left fallopian tube - High grade serous carcinoma (see comment and synoptic report). Right fallopian tube - Positive for involvement by high grade serous carcinoma. Bilateral ovaries - Positive for involvement by high grade serous carcinoma. Uterine serosa - Positive for involvement by high grade serous carcinoma. Bladder/pelvic peritoneum - Positive for involvement by high grade serous carcinoma. Endometrium - Inactive endometrium. Myometrium - Negative for malignancy. Cervix - Negative for malignancy. SYNOPTIC REPORT OF BRAUN PATHOLOGIC FINDINGS UTERUS, CERVIX, BILATERAL TUBES AND OVARIES, BLADDER, AND PELVIC PERITONEUM: Procedure: Total hysterectomy and bilateral salpingo-oophorectomy Omentectomy Peritoneal biopsies Specimen Integrity: Left fallopian tube serosa intact Primary Tumor Site: Left fallopian tube Ovarian Surface Involvement: Present Specify laterality (if applicable): Bilateral Fallopian Tube Surface Involvement: Present Specify laterality (if applicable): Bilateral Tumor Size: Greatest dimension: 1.6 cm Histologic Type: Serous carcinoma Histologic Grade: Not applicable Two-tier grading System: High grade Implants: Not applicable/not sampled Involvement of other tissues/organs: Right ovary Left ovary Right fallopian tube Pelvic peritoneum Omentum Other organs/tissues (specify): Uterine serosa Largest extrapelvic peritoneal focus, macroscopic (greater than 2 cm) Peritoneal Ascitic Fluid, Not submitted/unknown Treatment Effect: No known presurgical therapy Regional Lymph Nodes: No nodes submitted or found Pathologic Stage Classification (pTNM, AJCC 8th ed) TNM Descriptors: Not applicable Primary Tumor (pT): pT3c: Macroscopic peritoneal metastasis beyond pelvis more than 2 cm in greatest dimension with or without metastasis to the retroperitoneal lymph nodes (includes extension to capsule of liver and spleen without parenchymal involvement of either organ) Regional Lymph Nodes (pN): pNX: Cannot be assessed Distant Metastasis (pM): Not applicable/Not confirmed pathologically in this case Previous therapy: 1) 11/11/2018 - 02/03/2019: PACLITAXEL 80 D1,8,15 CARBOPLATIN 6 D1 - Q21D s/p 4 cycles. *neutropenia/thrombocytopenia causing treatment delay. Neulasta OnPro added; switch to Q21D dosing of Taxol with cycles 5 & 6 02/23/2019 - 03/17/2019: PACLITAXEL 135 D1 CARBOPLATIN 6 D1 - Q21D s/p 2 cycles. 2) 06/30/2019 - 06/20/2021: olaparib (LYNPARZA) 150 mg tablet; 300 mg BID. Presents for ongoing oncologic management. Interim history: CTs 06/29/2022: Mesentery/Peritoneum: * New 0.4 cm anterior mesenteric fat nodule (8:57) * Confluent infiltrative soft tissue in RIGHT false pelvis surrounding the terminal ileum and ascending colon (cecum deep in pelvis) and probably affecting the sigmoid colon; difficult to precisely measure as it envelops bowel but including bowel measures approximately 4.5 x 2.9 cm (8:101); process extends to the RIGHT psoas muscle * Several small subtle anterior mesenteric fat nodules * No free abdominal fluid MRI pelvis 07/02/2022: Similar imaging findings since CT 06/29/2022, redemonstrating pelvic peritoneal/serosal carcinomatosis involving segments of bowel predominantly in the right anterior pelvis, with confluent soft tissue encasing the proximal ascending colon and causing relative upstream dilation of the low-lying cecum suggesting developing colonic obstruction. No small bowel dilation. No pelvic lymphadenopathy. Recommended to retry carbo/paclitaxel with potential addition michael if disease clears the bowel. Good appetite. No nausea. Sore in lower abdomen after urinating or BM. No pain otherwise. Regular BMs with formed stools. No black or bloody stools. Subjectively can empty bladder when urinates. Occasional stress incontinence. Mild fingertip and toe numbness. Fingers worse than toes. PMH, medications and allergies personally reviewed by me today. Any changes documented in appropriate section. ROS: Constitutional: Denies episodes of fever and night sweats. Neuro: Denies MACHADO, vertigo, dizziness and imbalance. Denies symptoms of neuropathy. HEENT: No recent change in voice, vision or hearing. Resp: Denies cough, wheeze and hemoptysis. Denies shortness of breath at rest. Denies OLIVER. CVS: Denies exertional chest pain, PND, orthopnea and LE edema. GI: Denies dysgeusia. Denies symptoms of stomatitis. Denies dysphagia and odynophagia. : Denies dysuria or gross hematuria. Endo: Denies hot flashes. Denies polyuria and polydipsia. Denies heat and cold intolerance. Musculoskeletal: Denies bone, back, joint and muscular pain. Derm: Denies rash. Denies jaundice and diffuse pruritis. Heme: Denies unusual bleeding and unexplained bruising. Psych: Normal mood. PHYSICAL EXAM: Vitals: Blood pressure 122/66, pulse (!) 56, temperature 36.4 C (97.5 F), height 163 cm (5' 4.17),weight 61.9 kg (136 lb 8 oz). Well-appearing and in no acute distress. EYES: Sclerae are anicteric bilaterally. LYMPHATIC: There is no palpable cervical, supraclavicular, axillary or inguinal adenopathy. RESPIRATORY: Inspiratory breath sounds are of normal intensity in all bernabe. No rales, wheezes or rhonchi. Expiratory phase is normal. CARDIOVASCULAR: Rhythm is regular. Normal intensity S1/S2. There is no gallop or murmur. ABDOMEN: The abdomen is nondistended. Midline incision appears well-healed. Steri-Strips are still in place. No evidence of infection. Extremities: No swelling or edema. SKIN: No jaundice or rash. No petechiae. 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 No focal motor weakness. DTRs are symmetric and normal. MUSCULOSKELETAL: No muscle wasting. ASSESSMENT/PLAN: (C56.1, C56.2) Malignant neoplasm of both ovaries (HCC) (primary encounter diagnosis) Assessment: -KPS is 90%. -Baseline CA125 1153 U/mL. -Reviewed imaging in detail. Progressive disease. Serosal bowel involvement. Symptoms minimal. Agree with and recommended carboplatin and paclitaxel with the aim of adding bevacizumab if disease response and clears the bowel. She understands the goal of therapy is increasing overall survival and palliation of symptoms. -I discussed the rationale, logistics, potential risks (including but not limited to alopecia, neuropathy, cytopenias, infections and the small potential for as a consequence of complications of therapy), benefits and alternatives, as well as the personnel involved in the administration of pac litaxel, carboplatin and bevacizumab.. I answered her questions in detail and she verbalized understanding and agreed with the recommended therapy. Please see the electronic consent document for details of doses and schedule. Plan: -Rx for dexamethasone prep sent. She had significant infusion reaction with her very first cycle ofTaxol in 2019. -Port draw for vit D today. -Mammogram when able. -Chemotherapy teaching. -Begin carbo/Taxol next week. -CT scan following cycle #2. -May be able to add Avastin cycle #3. -CBC/CMP/Mg/CA125/Straight back cycle #1. -OV/CBC/CMP/Mg/CA125 cycle #2. or Kasi. Portions of this documentation were copied and pasted from previous office visit notes in order to provide a cohesive continuity of the history. The note has been reviewed and edited and updated as necessary. I spent 40 minutes in the visit, with more than 50% of the total [id number] time of the visit in reviewing test results, plan of care and coordination of care Js Cruz DO documented in this encounterSt. Anthony'S Hospital01-20-2023 Nurse Note* Kristan Hernández LPN - 07/10/2022 10:11 AM EST Est. Pt, discuss recent CT and MRI's ? Reoccurrence Kristan Hernández LPN documented in this encounterSt. Anthony'S Hospital01-18-2023 History of Present illness Narrative* Fang Cote MD - 07/08/2022 8:00 AM EST TELEPHONE VISIT PROGRESS NOTE Patient has consented to this telephone encounter, not originating from a related Evaluation & Management service provided within the previous 7 days. Persons Present: Mrs.Linda Patel & Mr.Larry Patel Chief Complaint/Reason: Here via telephone encounter to review MRI & Tumor Conference results. HPI: Ms. 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 ONCOLOGY HISTORY 1) 10/06/2018: Exploratory laparotomy, total abdominal hysterectomy, bilateral salpingooophorectomy,and bladder and posterior culdesac peritoneum resected en bloc, omentectomy 2) 11/11/2018 - 02/03/2019: PACLITAXEL 80 D1,8,15 CARBOPLATIN 6 D1 - Q21D s/p 4 cycles. *neutropenia/thrombocytopenia causing treatment delay. Neulasta OnPro added; switch to Q21D dosing of Taxol with cycles 5 & 6 02/23/2019 - 03/17/2019: PACLITAXEL 135 D1 CARBOPLATIN 6 D1 - Q21D s/p 2 cycles. 3) 06/30/2019 - 06/20/2021: olaparib (LYNPARZA) 150 mg tablet; 300 mg BID. 07/07/2022 POWER BARKER/ONC TUMOR BOARD Decontamination Technician/Onc Tumor Board Encounter Note Date of Tumor Board Presentation: 07/07/2022 Treating Physicians: Fang Cote MD Age: [age] year old Disease site: Ovary- High-grade serous adenocarcinoma Stage(at tumor board presentation)- Ovarian: Recurrent Care Path Discussion: No Clinical Trial Discussion: No If yes, what clinical trial should be considered? N/A Type of Tumor Board Review: Recurrence Attendance/Disciplines: POWER BARKER ONC, RAD ONC, Radiology, Pathology, and Genetics Management Options: - Recommend [place] based chemotherapy over secondary cytoreduction Citations: NCCN Ovarian Cancer Guidelines Version .2022 [facility] Carepath Guidelines: Ovarian Cancer Shanita P, Heather J, Claudia I, Angi G, Reshankar A, Jonah W, Nadia S, Pedrogaalynette BJ, Selle F, Guyon F, Pomel C, L samu F, Viry R, Marlin E, Hyacinth JW, Cecil J, Ashish F, Laura G, Roni, Torey P, Griffin P, Vini A, Randell S, Arben MR, Rios B, Reintbelkisler A, Santanikkia A, Olaitan A, Parth F, brianna Lincoln A; DESKTOP III Investigators. Randomized Trial of Cytoreductive Surgery for Relapsed Ovarian Cancer. N Engl J Med. 2020May 22;385(23):2777-2667. doi: 10.1056/KFFUfc2208141. Erratum in: N Engl J Med. 2021Aug 07;386(7):704. PMID: 79353478. Lisa BRAR, Celestine M, Lisbet LM, H, Cristofer R, May CM, Glenroy M, Ryan S, Roney R. PARPinhibitors decrease response to subsequent [place]-based chemotherapy in patients with BRCA mutated ovarian cancer. Anticancer Drugs. 2020Apr 21;32(10):7713-5769. doi: 10.1097/CAD.[id number]. PMID: 09980010. Anthony O, Sal DS, Raghu Q, Xiang A, Servando JA, Priyank V, Negin RN, Nito AK, Aguilar S, Cesar NATALIIA, Clem ED, Langphani CL, Paroaamir V, Lakrani Y, Matilde K, Koki K, Den GJ, Andronel V, Carlos J, Bonnie EL, Long Effie K, Chrissy- Núñez T, Jihan SM, Arturo LA, Anson K, u-Laurent NR, Justen C, Sunday WP, Kim J, Racheal Y, O'Becka RE. Secondary Cytoreduction and Carboplatin Hyperthermic Intraperitoneal Chemotherapy for [place]-Sensitive Recurrent Ovarian Cancer: An MSKTeam Ovary Phase II Study. J Clin Oncol. 2020Jan 28;39(23):4437-8881. doi: 10.1200/JCO.21.46532. Epub 2020November 08. PMID: 36771653; PMCID: [id number]. This abstract and interpretation of the conversation at tumor board has been completed by Rupa Mosquera MD. These are the general recommendations/discussion provided at tumor board conference. The definitive recommendations/discussion will be made by the primary health care team and patient after fulldiscussion as appropriate. GENETIC TESTIN10/2018: Consultation ordered, patient counseled on testing several times 11/22/2018 Pathology: -PD-L1: 3% tumor cells positive, PD-L1 Clone = 22C3 -Mismatch repair proteins (MLH1, PMS2, MSH2, and MSH6) are expressed in carcinoma nuclei 04/2019: BRACAnalysis with [employer] through [employer] was positive for a deleterious mutation, c.[id number] ([id number]), in BRCA2. 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 Data Reviewed: Most recent imaging and tumor board results RESULTS: CA 125 (U/mL) Date Value 06/18/2022 125 04/13/2022 14 03/23/2022 12 02/24/2022 10 01/19/2022 10 12/23/2021 10 11/24/2021 11 10/27/2021 11 09/29/2021 10 09/01/2021 9 07/07/2021 8 06/09/2021 9 05/12/2021 8 04/14/2021 8 02/19/2021 9 12/09/2020 9 10/23/2020 9 09/27/2020 8 08/23/2020 8 07/26/2020 8 06/28/2020 8 03/28/2020 8 02/01/2020 8 01/01/2020 8 10/20/2019 8 09/22/2019 7 08/25/2019 8 07/28/2019 8 07/20/2019 8 07/14/2019 9 07/07/2019 8 06/20/2019 9 03/27/2019 7 09/12/2018 1,153 - Tumor Board Discussion (See Onc History) 07/02/22 MRI PELVIS IMPRESSION: Similar imaging findings since CT 06/29/2022, redemonstrating pelvic peritoneal/serosal carcinomatosis involving segments of bowel predominantly in the right anterior pelvis, with confluent soft tissue encasing the proximal ascending colon and causing relative upstream dilation of the low-lying cecumsuggesting developing colonic obstruction. No small bowel dilation. No pelvic lymphadenopathy. Interval History: Neuropathy in fingers noted with initial chemotherapy treatment, she did not feel it to be overly troublesome. She did have fluctuation in her blood counts with initial chemotherapy. Assessment & Plan: 09/10/2020 - Dr. 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 Interval testing since last visit discussed, CA125 reviewed and within normal limits. Patient is up-to-date with health maintenance includingmammogram, colonoscopy and advanced directives. Reviewed issues of survivorship including sexual health after cancer treatment, mental health and support systems. Importance of cancer surveillance and early detection of recurrence reinforced. 10/28/2020- Heather Lutz NP (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 Advised her value is stable. Last CT scan was in March 2020. Will order CT of the chest abdomen and pelvis for reevaluation while on PARPi therapy. Patient would like to establish with Dr. Cote, will move her appointment with me from 12/[address] Dawson on 12/[address] scans the week before. Continue monthly labs while on PARPi therapy Patient verbalized an understanding and agreed with the plan. Instructed to call if she has any questions or concerns. 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 Patient expressed concern about receiving the COVID vaccine while taking Olaparib. I advised the patient to continue with the COVID vaccine and discussed findings that supported my recommendation with her. Patient is receptive to recommendation. I answered all of the patient's and patient's 's questions and addressed their concerns. Plan to RTC in March [address] before and in June 2021. Continue with monthly CBC, and CA 125 prior to office visit with me in [place]. Patient verbalized an understanding and agreed with the plan. 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 I reviewed the most recent CT results with the patient which showed no acute pathology, no suspicious pulmonary nodules, no thoracic lymphadenopathy in the chest, and no acute pathology, and no mass or lymphadenopathy in the abdomen and pelvis. Ms. Patel received the 2nd COVID vaccine in January, and reports experiencing hot flashes since that time. I believe that this might be due to the Lynparza. Ms. Patel also complains of leg cramps that onset at night. I recommend taking multivitamins daily, as well as eating a diet rich in Potassium. Ms. Patel will continue taking Lynparza until the last day in May. Plan to RTC on June 25, [address], CBC, and CA [address] results show no new evidence of disease, we will discuss stopping her PARP. We will discuss the cancer surveillance timeline at the next visit. 07/04/2021 Stop lynparza. Ok to stop protonix in 2-3 weeks after stopping lynparza. I recommend leaving port for one year. Discuss in one year. Discussed no scans needed unless concerning s/s of recurrence. CA 125 prior to each office visit. 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 Discussed she may have some improvement but hard to say at this point. Recommend KN95 with omicron variant. Discussed covid testing guidelines. Follow up in 3 months 10/01/2021 Impression: History of Ovarian Cancer, most recently had completed Olaparib . CA 125 is 10, stable, but she is worried because it has increased by 1 point. Discussed the significance of small changes in CA 125 and anxiety which often accompany's this. Plan: CA 125 and clinical examination in December. Vulvar dryness and itching. Will prescribe Lotrisone cream. Said she had this in past and it helped her. She will call office if symptoms of itching, and dryness don't resolve in the next couple of weeks. 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 CA 125 is stable. Some bladder symptoms at times. Intermittent. Discussed pelvic floor PT. Will trial melatonin for insomnia and some assistance with constipation. BMD ordered for osteopenia screening. 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 No clinical evidence of disease. She has been off her PARP for approximately 9 months. Repeat CA 125 in 3 months. If CA 125 value is >15, (the roberto value,) will check CT scan as well. Reviewed signs and symptoms of recurrence and told to call with persisting concerns. Follow up in clinic in June for continued surveillance. 04/22/2022 She is feeling a bit better. I reviewed the recent labs she had. Nothing actionable. No clinical evidence of diverticulitis or UTI. She has had a flu shot. I advise getting the covid bivalent booster. CA 125 again in June a couple days before she sees me. She is in agreement with these plans. 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 Recently her CA 125 has jumped from 14 (04/13/22) to 125 (06/18/22). PLAN CT Chest & Abd/Pel to be done in [place] early next week. Contact clinic if CT is scheduled forlater than Wednesday to reschedule virtual visit. Follow up Wednesday07/01/22 to review results of CT scan and discuss her care plan. 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 Would be considered [place] sensitive. Cancer appears to be involving distal ileum, and possibly sigmoid colon and right psoas. There may be sub-centimeter lesions elsewhere in the abdominal cavity. These findings were reviewed in detail with . Options for management include secondary debulking, possibly with HIPEC, followed with chemotherapyvs chemotherapy alone. To better assess whether secondary debulking would be appropriate, a pelvic MRI will be checked with focus on the possible involvement of the psoas muscle and surrounding blood vessels. If secondary debulking not advised, a CT guided biopsy of the recurrence will be considered as thissample can be sent for somatic tumor testing which can guide future treatment decisions. PLAN Review her case at the next Decontamination Technician/Onc Tumor Conference. MRI to be done in [place], aim for later this week. Follow up Wednesday07/08/22 to review Tumor Board discussion and MRI results. We will confirm the care plan at this time. 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 Her case was discussed in Tumor Board on 07/07/22. 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 If Bevacizumab is started, beginning with cycle number 3 of chemotherapy, consider single agent Bevacizumab following several cycles of carboplatin, Paclitaxel, and Bevacizumab Side effects of treatment plan reviewed, questions answered to patient's satisfaction. She is agreeable with this plan. Symptoms concerning for worsening disease reviewed. Instructed to contact this clinic if she has any questions. PLAN She wishes to receive her chemotherapy in [place] with Dr.Paul Eve DO. A copy of this note will be forwarded to him today. I will reach out to to fascilitate an appointment [phone] Follow up with me at the [facility] 2 weeks after her second cycle of chemotherapy, with a CT prior to that appointment. Will decide if Bevacizumab should be added at this time. Total Time Spent: 21-30 minutes ATTESTATION: By signing my name below, I, Jayla Bridges, attest that this documentation has been prepared under the direction and in the presence of Fang Cote MD. I, Fang Cote MD, agree that the above note, as documented by my scribe, accurately describes my encounter with the patient today. Electronically signed:Chasity Singleton, Fang Cote MD, Physician, July 0838:38 AM documented in this encounterSt. [facility]01-12-2023 History of Present illness Narrative* Cindy Mayers RN - 07/02/2022 3:50 PM EST Radiology Service Progress Note DATE OF SERVICE: July 02, 2022 TIME: 3:40 PM PATIENT WEIGHT: 134LBS PATIENT IDENTITY VERIFICATION COMPLETED USING TWO (2) STANDARD IDENTIFIERS: Name and Date of confirmed by patient verbally and Name and Date of confirmed by identification band. FALL SCREENING: Has the patient had 2 falls in the last year or 1 fall with injury or currently using an Ambulatory Assistive Device (Walker, Cane, Wheelchair, Crutches, etc.)? No PATIENT GENDER DATA: Female. status: : No status: NO. ALLERGIES: Reviewed and unchanged CONTRAST ALLERGY: No EXAM: MRI - CONTRAST TYPE: GROUP II IV SITE: Ambulatory: A power injectable Mediport was accessed in the Right chest with a 1 inch 20 gauge needle. Blood Return, Flushed easily with normal saline, Good Blood Return Post Injection, Flushed with 20 cc saline followed by Heparin 500 units/5 cc, and No Complications and A Saline lock wasinserted per protocol IV SITE APPEARANCE: Clean,Dry and Intact SIGNATURE: Cindy Mayers RN PATIENT NAME: Savana Patel DATE: July 02, 2022 TIME: 3:40 PM * RT Arnel(R) - 07/02/2022 3:50 PM EST Radiology Service Progress Note PATIENT NAME: Savana Patel DATE OF SERVICE: July 02, 2022 TIME: 4:36 PM PATIENT IDENTITY VERIFICATION COMPLETED USING TWO (2) IDENTIFIERS: Name and Date of confirmedby patient verbally and Name and Date of confirmed by identification band. FALL SCREENING: Has the patient had 2 falls in the last year or 1 fall with injury or currently using an Ambulatory Assistive Device (Walker, Cane, Wheelchair, Crutches, etc.)? No PATIENT GENDER DATA: Female. status: : No status: NO. PATIENT RELEVANT IMPLANT DATA REVIEWED: Yes RADIOLOGY DEPARTMENT: MR; Exam(s) Completed: Body: Female Pelvis PERIPHERAL IV DATA: Left port to be deaccessed by mri nurse SIGNED BY: RT Arnel(R) July 02, 2022 4:36 PM documented in this encounterSt. Anthony'[facility]01-11-2023 Miscellaneous Notes* Telephone Encounter - Kaley Junior APRN.CNP - 07/01/2022 1:32 PM EST Called patient to inform her MRI pelvis scheduled for tomorrow 07/02/22 at 3:50 PM in the [facility]. Patient informed she must arrive 30 min prior to test. No food/drink restrictions prior to scan. Patient made aware of location and directions to the building. All other questions answered. Kaley Junior APRN-JOSE LUIS documented in this encounterSt. Anthony'S Hospital01-11-2023 History of Present illness Narrative* Tosha Weinstein LPN - 07/01/2022 12:24 PM EST Patient presents for COVID vaccine. Denies any problems at this time. Tolerated injection well. Tosha Weinstein LPN documented in this encounterSt. Anthony'S Hospital01-11-2023 History of Present illness Narrative* Fang Cote MD - 07/01/2022 8:00 AM EST TELEPHONE VISIT PROGRESS NOTE Patient has consented to this telephone encounter, not originating from a related Evaluation & Management service provided within the previous 7 days. NOTE: Cannot be used if an Evaluation & Management service or procedure is planned within the next 24 hours. Persons Present: patient & her Chief Complaint/Reason: Telephone visit to review recent CT and discuss care plan. HPI: Ms. 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 RESULTS: 06/29/22 CT CHEST W IVCON IMPRESSION: No new metastatic disease in the thorax. 06/29/22 CT ABD/PEL W IVCON IMPRESSION: NEW PERITONEAL DISEASE. COMPARISON: 04/21/2022 RESULT: Liver: No mass. Biliary: No bile duct dilation. Spleen: No mass. No splenomegaly. Pancreas: No mass or duct dilation. Adrenals: No mass. Kidneys: Subcentimeter lesions that are too small to characterize but likely benign. GI tract: No dilation or wall thickening. Lymph nodes: No abdominal or pelvic lymphadenopathy. Mesentery/Peritoneum: * New 0.4 cm anterior mesenteric fat nodule (8:57) * Confluent infiltrative soft tissue in RIGHT false pelvis surrounding the terminal ileum and ascending colon (cecum deep in pelvis) and probably affecting the sigmoid colon; difficult to precisely measure as it envelops bowel but including bowel measures approximately 4.5 x 2.9 cm (8:101); processextends to the RIGHT psoas muscle * Several small subtle anterior mesenteric fat nodules * No free abdominal fluid Retroperitoneum: No mass. Vasculature: - Abdominal aorta and iliac arteries: Atherosclerotic calcifications without aneurysm. - Celiac and SMA: Patent without stenosis. - Portal venous system (SMV, splenic vein, portal vein and branches): Patent. - Hepatic veins: Patent. Pelvis: New trace free pelvic fluid; see above concerning mass Bones/Soft Tissues: No neoplastic bone disease Lower thorax: A chest CT performed will be reported separately. Tunnel Heading Inspector (topogram) images: No additional findings. 06/29/22 CREATININE Component Ref Range & Units 1 d ago (06/29/22) 2 mo ago (04/13/22) 5 mo ago (01/19/22) 11 mo ago (07/07/21) 11 mo ago (07/07/21) 1 yr ago (06/09/21) 1 yr ago (03/17/21) Creatinine 0.58 - 0.96 mg/dL 0.77 0.79 0.76 0.76 Test reordered by [facility]. VC, CM 0.90 0.90 Estimated Glomerular Filtration Rate >=60 mL/min/1.73m 82 79 CM 83 CM Comment: Estimated Glomerular Filtration Rate (eGFR) is calculated using the 2020 CKD-EPI creatinine equation. This equation utilizes serum creatinine, sex, and age as parameters. The creatinine assay has traceable calibration to isotope dilution-mass spectrometry. Refer to KDIGO guidelines for clinical interpretation. In patients with unstable renal function, e.g. those with acute kidney injury,the eGFR may not accurately reflect actual GFR. Resulting Agency [facility] CA 125 (U/mL) Date Value 06/18/2022 125 04/13/2022 14 03/23/2022 12 02/24/2022 10 01/19/2022 10 12/23/2021 10 11/24/2021 11 10/27/2021 11 09/29/2021 10 09/01/2021 9 07/07/2021 8 06/09/2021 9 05/12/2021 8 04/14/2021 8 02/19/2021 9 12/09/2020 9 10/23/2020 9 09/27/2020 8 08/23/2020 8 07/26/2020 8 06/28/2020 8 03/28/2020 8 02/01/2020 8 01/01/2020 8 10/20/2019 8 09/22/2019 7 08/25/2019 8 07/28/2019 8 07/20/2019 8 07/14/2019 9 07/07/2019 8 06/20/2019 9 03/27/2019 7 09/12/2018 1,153 ONCOLOGY HISTORY 1) 10/06/2018: Exploratory laparotomy, total abdominal hysterectomy, bilateral salpingooophorectomy,and bladder and posterior culdesac peritoneum resected en bloc, omentectomy 2) 11/11/2018 - 02/03/2019: PACLITAXEL 80 D1,8,15 CARBOPLATIN 6 D1 - Q21D s/p 4 cycles. *neutropenia/thrombocytopenia causing treatment delay. Neulasta OnPro added; switch to Q21D dosing of Taxol with cycles 5 & 6 02/23/2019 - 03/17/2019: PACLITAXEL 135 D1 CARBOPLATIN 6 D1 - Q21D s/p 2 cycles. 3) 06/30/2019 - 06/20/2021: olaparib (LYNPARZA) 150 mg tablet; 300 mg BID. GENETIC TESTIN10/2018: Consultation ordered, patient counseled on testing several times 11/22/2018 Pathology: -PD-L1: 3% tumor cells positive, PD-L1 Clone = 22C3 -Mismatch repair proteins (MLH1, PMS2, MSH2, and MSH6) are expressed in carcinoma nuclei 04/2019: BRACAnalysis with [employer] through [employer] was positive for a deleterious mutation, c.[id number] ([id number]), in BRCA2. 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 Data Reviewed: Most recent labs and imaging results. INTERVAL HISTORY -Here today to review recent CT scans -For breast cancer treatment included a one sided mastectomy, one breast remains. -Denies any problems with bowels or urination. - No history of CARIS/somatic tumor testing. November 2018 pathology showed 3% PD-L1 positive and MMR expression. -She plans to get her COVID booster later this week Assessment & Plan: 09/10/2020 - Dr. 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 Interval testing since last visit discussed, CA125 reviewed and within normal limits. Patient is up-to-date with health maintenance includingmammogram, colonoscopy and advanced directives. Reviewed issues of survivorship including sexual health after cancer treatment, mental health and support systems. Importance of cancer surveillance and early detection of recurrence reinforced. 10/28/2020- Heather Lutz NP (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 Advised her value is stable. Last CT scan was in March 2020. Will order CT of the chest abdomen and pelvis for reevaluation while on PARPi therapy. Patient would like to establish with Dr. Cote, will move her appointment with me from 12/[address] Dawson on 12/[address] scans the week before. Continue monthly labs while on PARPi therapy Patient verbalized an understanding and agreed with the plan. Instructed to call if she has any questions or concerns. 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 Patient expressed concern about receiving the COVID vaccine while taking Olaparib. I advised the patient to continue with the COVID vaccine and discussed findings that supported my recommendation with her. Patient is receptive to recommendation. I answered all of the patient's and patient's 's questions and addressed their concerns. Plan to RTC in March [address] before and in June 2021. Continue with monthly CBC, and CA 125 prior to office visit with me in [place]. Patient verbalized an understanding and agreed with the plan. 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 I reviewed the most recent CT results with the patient which showed no acute pathology, no suspicious pulmonary nodules, no thoracic lymphadenopathy in the chest, and no acute pathology, and no mass or lymphadenopathy in the abdomen and pelvis. Ms. Patel received the 2nd COVID vaccine in January, and reports experiencing hot flashes since that time. I believe that this might be due to the Lynparza. Ms. Patel also complains of leg cramps that onset at night. I recommend taking multivitamins daily, as well as eating a diet rich in Potassium. Ms. Patel will continue taking Lynparza until the last day in May. Plan to RTC on June 25, [address], CBC, and CA [address] results show no new evidence of disease, we will discuss stopping her PARP. We will discuss the cancer surveillance timeline at the next visit. 07/04/2021 Stop lynparza. Ok to stop protonix in 2-3 weeks after stopping lynparza. I recommend leaving port for one year. Discuss in one year. Discussed no scans needed unless concerning s/s of recurrence. CA 125 prior to each office visit. 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 Discussed she may have some improvement but hard to say at this point. Recommend KN95 with omicron variant. Discussed covid testing guidelines. Follow up in 3 months 10/01/2021 Impression: History of Ovarian Cancer, most recently had completed Olaparib . CA 125 is 10, stable, but she is worried because it has increased by 1 point. Discussed the significance of small changes in CA 125 and anxiety which often accompany's this. Plan: CA 125 and clinical examination in December. Vulvar dryness and itching. Will prescribe Lotrisone cream. Said she had this in past and it helped her. She will call office if symptoms of itching, and dryness don't resolve in the next couple of weeks. 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 CA 125 is stable. Some bladder symptoms at times. Intermittent. Discussed pelvic floor PT. Will trial melatonin for insomnia and some assistance with constipation. BMD ordered for osteopenia screening. 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 No clinical evidence of disease. She has been off her PARP for approximately 9 months. Repeat CA 125 in 3 months. If CA 125 value is >15, (the roberto value,) will check CT scan as well. Reviewed signs and symptoms of recurrence and told to call with persisting concerns. Follow up in clinic in June for continued surveillance. 04/22/2022 She is feeling a bit better. I reviewed the recent labs she had. Nothing actionable. No clinical evidence of diverticulitis or UTI. She has had a flu shot. I advise getting the covid bivalent booster. CA 125 again in June a couple days before she sees me. She is in agreement with these plans. 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 Recently her CA 125 has jumped from 14 (04/13/22) to 125 (06/18/22). PLAN CT Chest & Abd/Pel to be done in [place] early next week. Contact clinic if CT is scheduled forlater than Wednesday to reschedule virtual visit. Follow up Wednesday07/01/22 to review results of CT scan and discuss her care plan. 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 Would be considered [place] sensitive. Cancer appears to be involving distal ileum, and possibly sigmoid colon and right psoas. There may be sub-centimeter lesions elsewhere in the abdominal cavity. These findings were reviewed in detail with . Options for management include secondary debulking, possibly with HIPEC, followed with chemotherapyvs chemotherapy alone. To better assess whether secondary debulking would be appropriate, a pelvic MRI will be checked with focus on the possible involvement of the psoas muscle and surrounding blood vessels. If secondary debulking not advised, a CT guided biopsy of the recurrence will be considered as thissample can be sent for somatic tumor testing which can guide future treatment decisions. PLAN Review her case at the next Decontamination Technician/Onc Tumor Conference. MRI to be done in [facility] for later this week. Follow up Wednesday07/08/22 to review Tumor Board discussion and MRI results. We will confirm the care plan at this time. Total Time Spent: 41-50 minutes ATTESTATION: By signing my name below, I, Jayla Bridges, attest that this documentation has been prepared under the direction and in the presence of Fang Cote MD. I, Fang Cote MD, agree that the above note, as documented by my scribe, accurately describes my encounter with the patient today. Electronically signed:Chasity Singleton, Fang Cote MD, Physician, July 0139:07 AM documented in this encounterSt. Anthony'S Hospital01-10-2023 Miscellaneous Notes* Telephone Encounter - Corinne Santana RN - 06/30/2022 9:41 AM EST Call placed to pt. No answer. Detailed VM left explaining that I had verified with Sandi thatthere is no reason to delay getting the 4th COVID booster at this time and we encourage her to go ahead and do so. Asked that she call the office back with any other questions or concerns. Corinne Santana RN * Telephone Encounter - Corinne Santana RN - 06/30/2022 9:38 AM EST ----- Message from Kaley Junior APRN.CNP sent at 06/30/2022 9:16 AM EST ----- Regarding: RE: Rocael She can get the booster. There is no contraindication right now. Especially since her treatment hasn't been decided. Thanks! ----- Message ----- From: Corinne Santana RN Sent: 06/30/2022 9:04 AM EST To: Kaley Junior APRN.CNP Subject: FW: Rocael I don't know any reason she shouldn't get the booster. Even if he does surgery I wouldn't think it would be an issue. Correct? ----- Message ----- From: Iman Ku Sent: 06/30/2022 8:51 AM EST To: Corinne Santana RN Subject: Rocael Patient calling Wanted to know if she can get the 4th covid booster? Wanted to if there would be any side effects that could prevent her if Dr. Cote wanted to do surgery since her cancer is back. Ph. [phone] documented in this encounterSt. Anthony'S Hospital01-09-2023 Miscellaneous Notes* Telephone Encounter - Kaley Junior APRN.CNP - 06/29/2022 2:59 PM EST Called patient to go over her results of her CT scans. 06/29/2022 CT Chest IMPRESSION: No new metastatic disease in the thorax. 06/29/2022 CT Abd/Pel IMPRESSION: NEW PERITONEAL DISEASE. Patient made aware that I had spoken to Dr. Cote about these results and plan was made to discuss patient at our Tumor Board conference next week to determine best recommendations for treatment moving forward. Orders placed. Patient verbalizes understanding. Patient aware she is set up for a telephone visit with Dr. Cote on Saturday 07/01 to go over scan results in more detail. Kaley Junior APRN-JOSE LUIS documented in this encounterSt. Anthony'S Hospital01-09-2023 History of Present illness Narrative* Rita Braden RT(R) - 06/29/2022 11:00 AM EST Radiology Service Progress Note PATIENT NAME: Savana Patel DATE OF SERVICE: June 29, 2022 TIME: 2:12 PM PATIENT IDENTITY VERIFICATION COMPLETED USING TWO (2) IDENTIFIERS: Name and Date of confirmedby patient verbally. FALL SCREENING: Has the patient had 2 falls in the last year or 1 fall with injury or currently using an Ambulatory Assistive Device (Walker, Cane, Wheelchair, Crutches, etc.)? No PATIENT GENDER DATA: Female. status: : No status: NO. PATIENT RELEVANT IMPLANT DATA REVIEWED: Yes RADIOLOGY DEPARTMENT: CT; Exam(s) Completed: Chest Abdomen Pelvis PERIPHERAL IV DATA: power port accessed by Xierkang SIGNED BY: RT Laurie(R) June 29, 2022 2:12 PM documented in this encounterSt. Anthony'S Hospital01-06-2023 History of Present illness Narrative* Fang Cote MD - 06/26/2022 10:50 AM EST [facility] Follow up visit Date of service: 06/26/2022 PROBLEM/CC: Savana Patel presents following CA 125 elevation and persistent suprapubic pain with urge/stress incontinence since the end of March. HPI: Ms. 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 Last Distance Health: 04/22/2022 Last Office Visit: 03/25/2022 ONCOLOGY HISTORY: 1) 10/06/2018: Exploratory laparotomy, total abdominal hysterectomy, bilateral salpingooophorectomy,and bladder and posterior culdesac peritoneum resected en bloc, omentectomy 2) 11/11/2018 - 02/03/2019: PACLITAXEL 80 D1,8,15 CARBOPLATIN 6 D1 - Q21D s/p 4 cycles. *neutropenia/thrombocytopenia causing treatment delay. Neulasta OnPro added; switch to Q21D dosing of Taxol with cycles 5 & 6 02/23/2019 - 03/17/2019: PACLITAXEL 135 D1 CARBOPLATIN 6 D1 - Q21D s/p 2 cycles. 3) 06/30/2019 - 06/20/2021: olaparib (LYNPARZA) 150 mg tablet; 300 mg BID. GENETIC TESTIN10/2018: Consultation ordered, patient counseled on testing several times 04/2019: BRACAnalysis with [employer] through [employer] was positive for a deleterious mutation, c.8904del (p.[id number]), in BRCA2. 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 HISTORIES: PAST MEDICAL HISTORY Diagnosis Date Actinic keratosis 04/12/2007 DEANDRE positive 07/25/2016 Rheum felt just Arthritis. 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 Constipation 04/04/2015 Dysmetabolic syndrome X 12/28/2007 Essential hypertension 04/04/2015 GERD without esophagitis 07/24/2020 Hemorrhage of gastrointestinal tract, unspecified History of left mastectomy 05/05/2018 Impaired fasting glucose 11/21/2007 Internal hemorrhoids without mention of complication Leg cramps 01/08/[address] 07/31/2021 DPA is Living will on file 07/31/2021 DPA: Javier ( ) Malignant neoplasm of both ovaries (HCC) 10/26/2018 Mixed hyperlipidemia 04/04/2015 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 Osteoarthritis of multiple joints 07/27/2016 Osteopenia 12/28/2012 Other acne 05/29/2008 Other seborrheic keratosis 02/18/2007 Panic attacks 07/18/2012 SOLAR LENGINES///DYSCHROMIA OTHER 02/18/2007 Thrombocytopenia (HCC) 01/29/2022 chronic Trigger ring finger of left hand 07/24/2020 Trigger ring finger of right hand 07/24/2020 PAST SURGICAL HISTORY Procedure Laterality Date BX BREAST PERC VACUUM/ROTN 10/26/07 LEFT COLONOSCOPY FLX DX W/COLLJ SPEC WHEN PFRMD 07/20/05 COLONOSCOPY FLX DX W/COLLJ SPEC WHEN PFRMD 05/01/16 normal - 10 year follow up LIG/TRNSXJ FLP TUBE ABDL/VAG APPR UNI/BI Tubal ligation MAST RAD W/PECTORAL MUSCLES AXILLARY LYMPH NODES 11/26 Left PAST SURGICAL HISTORY OF BACK SURGERY PAST SURGICAL HISTORY OF 10/06/2018 Exploratory laparotomy, total abdominal hysterectomy, bilateral salpingooophorectomy, and bladder and posterior culdesac peritoneum resected en bloc, omentectomy PLCMT LOCALZTN CLIP,PERC,DURING BREAST BX 10/26/07 LEFT S PORT-A-CATH [id number] 11/09/2018 TONSILLECTOMY PRIMARY/SECONDARY <AGE 11 Tonsillectomy FAMILY HISTORY Problem Relation Age of Onset Ovarian cancer Mother dx 50s Arthritis Father Cancer Maternal Aunt 7 aunts with breast or ovarian cancer. details unknown SOCIAL HISTORY: Social History Tobacco Use Smoking status: Never Smokeless tobacco: Never Vaping Use Vaping Use: Never used Substance Use Topics Alcohol use: No Drug use: No Marital Status: PAST GYNECOLOGIC HISTORY: OB History T0 L0 SAB0 IAB2 Ectopic0 Multiple0 Live Births0 LMP: No LMP recorded. Patient has had a hysterectomy. HEALTH MAINTENANCE: Last pap: 01/27/2016 negative Last mammogram: 07/04/2021, Breast MRI 12/31/21 - both normal Last colonoscopy: 05/01/2016 ALLERGIES Allergen Reactions Penicillins Rash Sulfa (Sulfonamide * Unknown MEDICATIONS iv contrast (will be provided with radiology test) CT Chest ABD/PEL-Inject, intravenously, once for1 dose.No IV access, insert saline lock prior to the beginning of sedation, infusion, injection of imaging exam. Discontinue saline lock post exam. If Pt. has a central line or IVAD, may access for administration according to line specific nursing protocol. Once exam is complete flush line and de-access according to line specific nursing protocol in the CT contrast administration guidelines link. enteric contrast (will be provided with radiology test) For CT CHESTABD/PEL W IVCON Routine order Administer, As Directed One Time Only, via Oral, Rectal, both Oral and Rectal, Enteric Tube, Stoma orIndwelling Catheter, Enteric Contrast as designated per enteric contrast guidelines atorvastatin (LIPITOR) 10 mg tablet Take 1 tablet by mouth once daily. ramipril (ALTACE) 10 mg capsule Take 1 capsule by mouth once daily. INTERVAL HISTORY: Savana Patel reports today with her . Recently she reports an aching sensation in her abdomen which she recalls experiencing prior to her initial cancer diagnosis in 2019. She stopped use ofLynparza after two years on June 30, 2021. Notes feeling of tiredness recently. Recently her CA 125 has jumped from 14 (04/13/22) to 125 (06/18/22). ROS GENERAL: + Tiredness. Flu infection at the end of March. No recent COVID infection or vaccination. LUNGS: No shortness of breath, cough, or chest pain. ABDOMEN: + abdominal pain. No nausea, vomiting, diarrhea, or constipation. GI: No bloating, early satiety, indigestion, or increased flatulence. No N/V. : + Occasional incontinence, noted when she is experiencing increased flatulence. No dysuria, gross hematuria. PELVIS: No vulvar bumps, lesions, pruritis, or pain. No vaginal bleeding or discharge. EXTREMITIES: Since chemotherapy she has noticed slight tingling in her fingers. Reports swelling offeet and ankles since improved. Remainder of ROS reviewed and was negative. PHYSICAL EXAM: VITALS: BP 116/66 Pulse 70 Temp 36.6 C (97.8 F) (Temporal) Wt 60.8 kg (134 lb) SpO2 98% BMI 22.30 kg/m GENERAL: Patient is a well developed, well nourished, no acute distress. Presenting with her SKIN: Color, texture, turgor normal. No rashes or lesions. HEENT: Normocephalic, atraumatic, mucus membranes moist, and no lesions NECK: Supple, no adenopathy; thyroid symmetric, normal size, no bruits LUNGS: Respirations unlabored. Chest clear. HEART: Regular rate and rhythm. No murmer. No JVD. ABDOMEN: Nontender. No palpable masses. No fluid wave. PELVIC: Vulva normal in appearance and nontender. Vagina no lesions. No pelvic masses. Uterus and cervix surgically absent. Rectal exam normal, no blood in stool. PSYCHIATRIC: Alert, cooperative. Normal affect. Normal behavior. LYMPH NODES: No palpable enlarged nodes in neck, groin or axilla. NEURO: Normal sensory. Motor intact and symmetric. Gait normal. LOWER EXTREMITIES: Not tender. No ulcers or swelling. Deep tendon reflexes are present Veneer Sander for exam: Dr.Sabrina Iraida Hair MD RESULTS: CA 125 (U/mL) Date Value 06/18/2022 125 04/13/2022 14 03/23/2022 12 02/24/2022 10 01/19/2022 10 12/23/2021 10 11/24/2021 11 10/27/2021 11 09/29/2021 10 09/01/2021 9 07/07/2021 8 06/09/2021 9 05/12/2021 8 04/14/2021 8 02/19/2021 9 12/09/2020 9 10/23/2020 9 09/27/2020 8 08/23/2020 8 07/26/2020 8 06/28/2020 8 03/28/2020 8 02/01/2020 8 01/01/2020 8 10/20/2019 8 09/22/2019 7 08/25/2019 8 07/28/2019 8 07/20/2019 8 07/14/2019 9 07/07/2019 8 06/20/2019 9 03/27/2019 7 09/12/2018 1,153 ASSESSMENT & PLAN: 09/10/2020 - Dr. 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 Interval testing since last visit discussed, CA125 reviewed and within normal limits. Patient is up-to-date with health maintenance includingmammogram, colonoscopy and advanced directives. Reviewed issues of survivorship including sexual health after cancer treatment, mental health and support systems. Importance of cancer surveillance and early detection of recurrence reinforced. 10/28/2020- Heather Lutz NP (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 Advised her value is stable. Last CT scan was in March 2020. Will order CT of the chest abdomen and pelvis for reevaluation while on PARPi therapy. Patient would like to establish with Dr. Cote, will move her appointment with me from 12/[address] Dawson on 12/[address] scans the week before. Continue monthly labs while on PARPi therapy Patient verbalized an understanding and agreed with the plan. Instructed to call if she has any questions or concerns. 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 Patient expressed concern about receiving the COVID vaccine while taking Olaparib. I advised the patient to continue with the COVID vaccine and discussed findings that supported my recommendation with her. Patient is receptive to recommendation. I answered all of the patient's and patient's 's questions and addressed their concerns. Plan to RTC in March [address] before and in June 2021. Continue with monthly CBC, and CA 125 prior to office visit with me in [place]. Patient verbalized an understanding and agreed with the plan. 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 I reviewed the most recent CT results with the patient which showed no acute pathology, no suspicious pulmonary nodules, no thoracic lymphadenopathy in the chest, and no acute pathology, and no mass or lymphadenopathy in the abdomen and pelvis. Ms. Patel received the 2nd COVID vaccine in January, and reports experiencing hot flashes since that time. I believe that this might be due to the Lynparza. Ms. Patel also complains of leg cramps that onset at night. I recommend taking multivitamins daily, as well as eating a diet rich in Potassium. Ms. Patel will continue taking Lynparza until the last day in May. Plan to RTC on June 25, [address], CBC, and CA [address] results show no new evidence of disease, we will discuss stopping her PARP. We will discuss the cancer surveillance timeline at the next visit. 07/04/2021 Stop lynparza. Ok to stop protonix in 2-3 weeks after stopping lynparza. I recommend leaving port for one year. Discuss in one year. Discussed no scans needed unless concerning s/s of recurrence. CA 125 prior to each office visit. 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 Discussed she may have some improvement but hard to say at this point. Recommend KN95 with omicron variant. Discussed covid testing guidelines. Follow up in 3 months 10/01/2021 Impression: History of Ovarian Cancer, most recently had completed Olaparib . CA 125 is 10, stable, but she is worried because it has increased by 1 point. Discussed the significance of small changes in CA 125 and anxiety which often accompany's this. Plan: CA 125 and clinical examination in December. Vulvar dryness and itching. Will prescribe Lotrisone cream. Said she had this in past and it helped her. She will call office if symptoms of itching, and dryness don't resolve in the next couple of weeks. 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 CA 125 is stable. Some bladder symptoms at times. Intermittent. Discussed pelvic floor PT. Will trial melatonin for insomnia and some assistance with constipation. BMD ordered for osteopenia screening. 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 No clinical evidence of disease. She has been off her PARP for approximately 9 months. Repeat CA 125 in 3 months. If CA 125 value is >15, (the roberto value,) will check CT scan as well. Reviewed signs and symptoms of recurrence and told to call with persisting concerns. Follow up in clinic in June for continued surveillance. 04/22/2022 She is feeling a bit better. I reviewed the recent labs she had. Nothing actionable. No clinical evidence of diverticulitis or UTI. She has had a flu shot. I advise getting the covid bivalent booster. CA 125 again in June a couple days before she sees me. She is in agreement with these plans. 06/26/2022 ASSESSMENT Stage IIIC ovarian high grade serous carcinoma, BRCA 2 positive. Recently her CA 125 has jumped from 14 (04/13/22) to 125 (06/18/22). Ill defined lower abd discomfort. Nothing abnormal on clinical exam. PLAN CT Chest & Abd/Pel to be done in [place] early next week. Contact clinic if CT is scheduled forlater than Wednesday to reschedule virtual visit. Follow up Wednesday07/01/[address] to review results of CT scan and discuss her care plan. Documentation from my notes of previous visit of 04/22/2022 was copied and pasted, documentation hasbeen reviewed and edited as necessary and is current for today. ATTESTATION: By signing my name below, I, Jayla Bridges, attest that this documentation has been prepared under the direction and in the presence of Fang Cote MD. I, Fang Cote MD, agree that the above note, as documented by my scribe, accurately describes my encounter with the patient today. Electronically signed:Chasity Singleton, Fang Cote MD, Physician, June 26, 2022 12:09 PM documented in this encounterSt. Anthony'S Hospital01-03-2023 Miscellaneous Notes* Telephone Encounter - Kaley Junior APRN.CNP - 06/23/2022 9:13 AM EST Called patient to go over results of CA 125. 0 Result Notes Component Ref Range & Units 5 d ago (06/18/22) 2 mo ago (04/13/22) 3 mo ago (03/23/22) 3 mo ago (02/24/22) 5 mo ago (01/19/22) 6 mo ago (12/23/21) 7 mo ago (11/24/21) CA 125 <39 U/mL 125 High 14 CM 12 CM 10 CM 10 CM 10 CM 11 CM Per patient, she has not had any new or worsening symptoms. At the end of March, she had been complaining of suprapubic and lower abdominal pain. She was also experiencing urge/stress incontinence that seemed to correlate. Labs (CBC, CMP) at that time were unremarkable. CA [address] Obt[address] a [address] A/P which did not show any signs of metastatic disease. Patient states that currently her pain has not worsened. She does not have any other new symptoms. Denies recent fever, viral illness, or recent Covid/flu vaccine which may explain elevation in CA 125. Explained to patient that we will plan to see her in the office on Wednesday and do a pelvic exam. With this new elevation, we may decide to obtain another CT Abd/pelvis seeing as her suprapubic pain isstill present. Patient verbalizes understanding and appreciative of call. Kaley Junior APRN-JOSE LUIS documented in this encounterSt. Anthony'S Hospital11-02-2022 History of Present illness Narrative* Fang Cote MD - 04/22/2022 11:04 AM EDT [facility] Follow up visit Date of service: 04/22/2022 PROBLEM/CC: Savana Patel is contacted via telehealth to review results of recent CT scan HPI: Ms. 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 Last seen: 03/25/2022 Telehealth visit 2 weeks ago with COMPENSATION EXPERT regarding new suprapubic pain. CA 125 was 14; rising over the last few months. Recommendation was for CT scan, done 04/21/2002, showing no sign of cancer in abdomen or pelvis. ONCOLOGY HISTORY: 1) 10/06/2018: Exploratory laparotomy, total abdominal hysterectomy, bilateral salpingooophorectomy,and bladder and posterior culdesac peritoneum resected en bloc, omentectomy 2) 11/11/2018 - 02/03/2019: PACLITAXEL 80 D1,8,15 CARBOPLATIN 6 D1 - Q21D s/p 4 cycles. *neutropenia/thrombocytopenia causing treatment delay. Neulasta OnPro added; switch to Q21D dosing of Taxol with cycles 5 & 6 02/23/2019 - 03/17/2019: PACLITAXEL 135 D1 CARBOPLATIN 6 D1 - Q21D s/p 2 cycles. 3) 06/30/2019 - 06/20/2022: olaparib (LYNPARZA) 150 mg tablet; 300 mg BID. GENETIC TESTIN10/2018: Consultation ordered, patient counseled on testing several times 04/2019: BRACAnalysis with [employer] through [employer] was positive for a deleterious mutation, c.8904del (p.[id number]), in BRCA2. 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 HISTORIES: PAST MEDICAL HISTORY Diagnosis Date Actinic keratosis 04/12/2007 DEANDRE positive 07/25/2016 Rheum felt just Arthritis. 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, NON-NEOPLASTIC 02/18/2007 Constipation 04/04/2015 Dysmetabolic syndrome X 12/28/2007 Essential hypertension 04/04/2015 GERD without esophagitis 07/24/2020 Hemorrhage of gastrointestinal tract, unspecified History of left mastectomy 05/05/2018 Impaired fasting glucose 11/21/2007 Internal hemorrhoids without mention of complication Leg cramps 01/08/[address] 07/31/2021 DPA is Living will on file 07/31/2021 DPA: Javier ( ) Malignant neoplasm of both ovaries (HCC) 10/26/2018 Mixed hyperlipidemia 04/04/2015 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 Osteoarthritis of multiple joints 07/27/2016 Osteopenia 12/28/2012 Other acne 05/29/2008 Other seborrheic keratosis 02/18/2007 Panic attacks 07/18/2012 SOLAR LENGINES///DYSCHROMIA OTHER 02/18/2007 Thrombocytopenia (HCC) 01/29/2022 chronic Trigger ring finger of left hand 07/24/2020 Trigger ring finger of right hand 07/24/2020 PAST SURGICAL HISTORY Procedure Laterality Date BX BREAST PERC VACUUM/ROTN 10/26/07 LEFT COLONOSCOPY FLX DX W/COLLJ SPEC WHEN PFRMD 07/20/05 COLONOSCOPY FLX DX W/COLLJ SPEC WHEN PFRMD 05/01/16 normal - 10 year follow up LIG/TRNSXJ FLP TUBE ABDL/VAG APPR UNI/BI Tubal ligation MAST RAD W/PECTORAL MUSCLES AXILLARY LYMPH NODES 11/26 Left PAST SURGICAL HISTORY OF BACK SURGERY PAST SURGICAL HISTORY OF 10/06/2018 Exploratory laparotomy, total abdominal hysterectomy, bilateral salpingooophorectomy, and bladder and posterior culdesac peritoneum resected en bloc, omentectomy PLCMT LOCALZTN CLIP,PERC,DURING BREAST BX 10/26/07 LEFT S PORT-A-CATH [id number] 11/09/2018 TONSILLECTOMY PRIMARY/SECONDARY <AGE 11 Tonsillectomy FAMILY HISTORY Problem Relation Age of Onset Ovarian cancer Mother dx 50s Arthritis Father Cancer Maternal Aunt 7 aunts with breast or ovarian cancer. details unknown SOCIAL HISTORY: Social History Tobacco Use Smoking status: Never Smokeless tobacco: Never Vaping Use Vaping Use: Never used Substance Use Topics Alcohol use: No Drug use: No Marital Status: PAST GYNECOLOGIC HISTORY: OB History T0 L0 SAB0 IAB2 Ectopic0 Multiple0 Live Births0 LMP: No LMP recorded. Patient has had a hysterectomy. HEALTH MAINTENANCE: Last pap: 01/27/2016 negative Last mammogram: 07/04/2021, Breast MRI 12/31/21 - both normal Last colonoscopy: 05/01/2016 ALLERGIES Allergen Reactions Penicillins Rash Sulfa (Sulfonamide * Unknown MEDICATIONS atorvastatin (LIPITOR) 10 mg tablet Take 1 tablet by mouth once daily. ramipril (ALTACE) 10 mg capsule Take 1 capsule by mouth once daily. INTERVAL HISTORY: Since last visit in March, has had some suprapubic discomfort. Some cramping. Refer to COMPENSATION EXPERT note of 04/09/2022 for details. PHYSICAL EXAM: Telehealth RESULTS: CA 125 (U/mL) Date Value 04/13/2022 03/23/2022 14 12 02/24/2022 10 01/19/2022 10 12/23/2021 10 11/24/2021 11 10/27/2021 11 09/29/2021 10 09/01/2021 9 07/07/2021 8 06/09/2021 9 05/12/2021 8 04/14/2021 8 02/19/2021 9 12/09/2020 9 10/23/2020 9 09/27/2020 8 08/23/2020 8 07/26/2020 8 06/28/2020 8 03/28/2020 8 02/01/2020 8 01/01/2020 8 10/20/2019 8 09/22/2019 7 08/25/2019 8 07/28/2019 8 07/20/2019 8 07/14/2019 9 07/07/2019 8 06/20/2019 9 03/27/2019 7 09/12/[address] 04/21/2022 IMPRESSION: No metastasis in the abdomen or pelvis. Security Ambassador: SUMMER Transcribe Date/Time: Apr 21 2022 4:14P Dictated by : TYLER FIGUEROA JR, MD This examination was interpreted and the report reviewed and electronically signed by: TYLER FIGUEROA JR, MD on Apr 21 2022 4:30PM EST Results-Findings * * *Final Report* * * DATE OF EXAM: Apr 21 2022 11:13AM [facility] 0530 - CT ABD/PEL W IVCON / PROCEDURE REASON: multiple diagnoses * * * * Physician Interpretation * * * * EXAMINATION: CT ABDOMEN AND PELVIS WITH IV CONTRAST CLINICAL HISTORY: Ovarian carcinoma TECHNIQUE: CT of the abdomen and pelvis was performed using standard technique, scanning from just above the dome of the diaphragm to the symphysis pubis. MQ: CTAP_3 Contrast: Central IV: 100 ml of Omnipaque 350 Oral: 50 ml of Omni 240 10-25ml diluted with water CT Radiation dose: Integrated Dose-length product (DLP) for this visit = 264 mGy*cm. CT Dose Reduction Employed: Automated exposure control(AEC) and iterative recon COMPARISON: 06/09/2021 RESULT: Liver: No mass. Biliary: No bile duct dilation. No calcified gallstones. Spleen: No mass. No splenomegaly. Pancreas: No mass or duct dilation. Adrenals: No mass. Kidneys: Subcentimeter low-attenuation lesions are too small to characterize but likely benign. No hydronephrosis. GI tract: No dilation or wall thickening. Lymph nodes: No abdominal or pelvic lymphadenopathy. Mesentery/Peritoneum: No ascites or mass. Retroperitoneum: No mass. Vasculature: - Abdominal aorta and iliac arteries: Atherosclerotic calcifications without aneurysm. - Celiac and SMA: Patent without stenosis. - Portal venous system (SMV, splenic vein, portal vein and branches): Patent. - Hepatic veins: Patent. Pelvis: No mass, ascites or fluid collection. Hysterectomy. Bones/Soft Tissues: No acute findings. Minimal degenerative change of the lower lumbar spine. Lower thorax: Unremarkable. Tunnel Heading Inspector (topogram) images: No additional findings. ASSESSMENT & PLAN: 09/10/2020 - Dr. 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 Interval testing since last visit discussed, CA125 reviewed and within normal limits. Patient is up-to-date with health maintenance includingmammogram, colonoscopy and advanced directives. Reviewed issues of survivorship including sexual health after cancer treatment, mental health and support systems. Importance of cancer surveillance and early detection of recurrence reinforced. 10/28/2020- Heather Lutz NP (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 Advised her value is stable. Last CT scan was in March 2020. Will order CT of the chest abdomen and pelvis for reevaluation while on PARPi therapy. Patient would like to establish with Dr. Cote, will move her appointment with me from 12/[address] Dawson on 12/[address] scans the week before. Continue monthly labs while on PARPi therapy Patient verbalized an understanding and agreed with the plan. Instructed to call if she has any questions or concerns. 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 Patient expressed concern about receiving the COVID vaccine while taking Olaparib. I advised the patient to continue with the COVID vaccine and discussed findings that supported my recommendation with her. Patient is receptive to recommendation. I answered all of the patient's and patient's 's questions and addressed their concerns. Plan to RTC in March [address] before and in June 2021. Continue with monthly CBC, and CA 125 prior to office visit with me in [place]. Patient verbalized an understanding and agreed with the plan. 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 I reviewed the most recent CT results with the patient which showed no acute pathology, no suspicious pulmonary nodules, no thoracic lymphadenopathy in the chest, and no acute pathology, and no mass or lymphadenopathy in the abdomen and pelvis. Ms. Patel received the 2nd COVID vaccine in January, and reports experiencing hot flashes since that time. I believe that this might be due to the Lynparza. Ms. Patel also complains of leg cramps that onset at night. I recommend taking multivitamins daily, as well as eating a diet rich in Potassium. Ms. Patel will continue taking Lynparza until the last day in May. Plan to RTC on June 25, [address], CBC, and CA [address] results show no new evidence of disease, we will discuss stopping her PARP. We will discuss the cancer surveillance timeline at the next visit. 07/04/2021 Stop lynparza. Ok to stop protonix in 2-3 weeks after stopping lynparza. I recommend leaving port for one year. Discuss in one year. Discussed no scans needed unless concerning s/s of recurrence. CA 125 prior to each office visit. 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 Discussed she may have some improvement but hard to say at this point. Recommend KN95 with omicron variant. Discussed covid testing guidelines. Follow up in 3 months 10/01/2021 Impression: History of Ovarian Cancer, most recently had completed Olaparib . CA 125 is 10, stable, but she is worried because it has increased by 1 point. Discussed the significance of small changes in CA 125 and anxiety which often accompany's this. Plan: CA 125 and clinical examination in December. Vulvar dryness and itching. Will prescribe Lotrisone cream. Said she had this in past and it helped her. She will call office if symptoms of itching, and dryness don't resolve in the next couple of weeks. 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 CA 125 is stable. Some bladder symptoms at times. Intermittent. Discussed pelvic floor PT. Will trial melatonin for insomnia and some assistance with constipation. BMD ordered for osteopenia screening. 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 No clinical evidence of disease. She has been off her PARP for approximately 9 months. Repeat CA 125 in 3 months. If CA 125 value is >15, (the roberto value,) will check CT scan as well. Reviewed signs and symptoms of recurrence and told to call with persisting concerns. Follow up in clinic in June for continued surveillance. 04/22/2022 She is feeling a bit better. I reviewed the recent labs she had. Nothing actionable. No clinical evidence of diverticulitis or UTI. She has had a flu shot. I advise getting the covid bivalent booster. CA 125 again in June a couple days before she sees me. She is in agreement with these plans. Time spent reviewing recent CT and lab results, and discussing results and answering questions today was 22 minutes. This is a virtual visit. It required patient-provider interaction for the medical decision making as documented above. SIGNATURE: Fang Cote MD PATIENT NAME: Savana Patel DATE: April 22, 2022 TIME: 11:34 AM documented in this encounterSt. [facility] History of Present illness Narrative* Rita Braden RT(R) - 04/21/2022 10:20 AM EDT Radiology Service Progress Note PATIENT NAME: Savana Patel DATE OF SERVICE: April 21, 2022 TIME: 1:43 PM PATIENT IDENTITY VERIFICATION COMPLETED USING TWO (2) IDENTIFIERS: Name and Date of confirmedby patient verbally. FALL SCREENING: Has the patient had 2 falls in the last year or 1 fall with injury or currently using an Ambulatory Assistive Device (Walker, Cane, Wheelchair, Crutches, etc.)? No PATIENT GENDER DATA: Female. status: : No status: NO. PATIENT RELEVANT IMPLANT DATA REVIEWED: Yes RADIOLOGY DEPARTMENT: CT; Exam(s) Completed: Abdomen/Pelvis PERIPHERAL IV DATA: power port accessed by Xierkang SIGNED BY: RT Laurie(R) April 21, 2022 1:43 PM documented in this encounterSt. Anthony'[facility]10-26-2022 History of Present illness Narrative* Kaley Junior APRN.CNP - 04/15/2022 4:34 PM EDT Called patient to discuss CA 125 result = 14 (roberto value=7). Spoke with Dr. Cote regarding result and patient's new symptoms of suprapubic pain. Plan to order CT scan abdomen/pelvis. Orders placed. Patient made aware of plan. Will schedule follow up with Dr. Cote after CT scans are scheduled. BENNETT Gonzalez documented in this encounterSt. Anthony'[facility]10-24-2022 Miscellaneous Notes* Telephone Encounter - Gladis Reynoso MA - 04/13/2022 12:21 PM EDT Patient contacted and voiced understanding with PCP recommendations. Patient indicated that port has been in over 3 years. Gladis Reynoso MA * Telephone Encounter - Shay Cardoza MD - 04/13/2022 11:55 AM EDT Advise patient that if she had the port in place when she got the COVID series the either arm is okto do the flu vaccine. If not then advise getting it on the left upper arm. * Telephone Encounter - Iraida Toribio RN - 04/13/2022 8:52 AM EDT Patient reports she had breast/ovarian CA and received chemo. Has a port in right upper arm (just above the breast), and a left mastectomy. Is scheduled for her first flu shot ever, on 04-15. Asking where should she receive the flu shot? Reports she received the covid vaccines in her upper arms. Both arms were very sore after the covid vaccines for a couple days, but no swelling. Please advise and phone patient with reply. documented in this encounterSt. [facility]10-20-2022 Miscellaneous Notes* Telephone Encounter - Patsy Smart - 04/09/2022 10:54 AM EDT Patient is scheduled for blood draw on 04/13/22. CBC/CMP orders are still pending. Please notify the patient once orders are signed. documented in this encounterSt. Anthony'[facility]10-20-2022 History of Present illness Narrative* Kaley Junior APRN.JOSE LUIS - 04/09/2022 9:00 AM EDT TELEVISIT PROGRESS NOTE This is a telephone encounter initiated for an established patient, parent or guardian not originating from a related Evaluation & Management service provided within the previous 7 days nor leading to an Evaluation & Management service or procedure within the next 24 hours or soonest available appointment. Patient name and birthday verified: Yes Location of patient: home Persons Present: patient Gynecologic Oncology [facility] visit Date of service: 04/09/2022 PROBLEM/CC: Savana Patel presents for new complaints of suprapubic pain HPI: Ms. 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 Last seen: 03/25/2022 ONCOLOGY HISTORY: 1) 10/06/2018: Exploratory laparotomy, total abdominal hysterectomy, bilateral salpingooophorectomy,and bladder and posterior culdesac peritoneum resected en bloc, omentectomy 2) 11/11/2018 - 02/03/2019: PACLITAXEL 80 D1,8,15 CARBOPLATIN 6 D1 - Q21D s/p 4 cycles. *neutropenia/thrombocytopenia causing treatment delay. Neulasta OnPro added; switch to Q21D dosing of Taxol with cycles 5 & 6 02/23/2019 - 03/17/2019: PACLITAXEL 135 D1 CARBOPLATIN 6 D1 - Q21D s/p 2 cycles. 3) 06/30/2019 - 06/20/2022: olaparib (LYNPARZA) 150 mg tablet; 300 mg BID. GENETIC TESTIN10/2018: Consultation ordered, patient counseled on testing several times 04/2019: BRACAnalysis with [employer] through [employer] was positive for a deleterious mutation, [id number] (p.[id number]*7), in BRCA2. 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 HISTORIES: PAST MEDICAL HISTORY Diagnosis Date Actinic keratosis 04/12/2007 DEANDRE positive 07/25/2016 Rheum felt just Arthritis. 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, NON-NEOPLASTIC 02/18/2007 Constipation 04/04/2015 Dysmetabolic syndrome X 12/28/2007 Essential hypertension 04/04/2015 GERD without esophagitis 07/24/2020 Hemorrhage of gastrointestinal tract, unspecified History of left mastectomy 05/05/2018 Impaired fasting glucose 11/21/2007 Internal hemorrhoids without mention of complication Leg cramps 01/08/[address] 07/31/2021 DPA is Living will on file 07/31/2021 DPA: Javier ( ) Malignant neoplasm of both ovaries (HCC) 10/26/2018 Mixed hyperlipidemia 04/04/2015 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 Osteoarthritis of multiple joints 07/27/2016 Osteopenia 12/28/2012 Other acne 05/29/2008 Other seborrheic keratosis 02/18/2007 Panic attacks 07/18/2012 SOLAR LENGINES///DYSCHROMIA OTHER 02/18/2007 Thrombocytopenia (HCC) 01/29/2022 chronic Trigger ring finger of left hand 07/24/2020 Trigger ring finger of right hand 07/24/2020 PAST SURGICAL HISTORY Procedure Laterality Date BX BREAST PERC VACUUM/ROTN 10/26/07 LEFT COLONOSCOPY FLX DX W/COLLJ SPEC WHEN PFRMD 07/20/05 COLONOSCOPY FLX DX W/COLLJ SPEC WHEN PFRMD 05/01/16 normal - 10 year follow up LIG/TRNSXJ FLP TUBE ABDL/VAG APPR UNI/BI Tubal ligation MAST RAD W/PECTORAL MUSCLES AXILLARY LYMPH NODES 11/26 Left PAST SURGICAL HISTORY OF BACK SURGERY PAST SURGICAL HISTORY OF 10/06/2018 Exploratory laparotomy, total abdominal hysterectomy, bilateral salpingooophorectomy, and bladder and posterior culdesac peritoneum resected en bloc, omentectomy PLCMT LOCALZTN CLIP,PERC,DURING BREAST BX 10/26/07 LEFT S PORT-A-CATH [id number] 11/09/2018 TONSILLECTOMY PRIMARY/SECONDARY <AGE 11 Tonsillectomy FAMILY HISTORY Problem Relation Age of Onset Ovarian cancer Mother dx 50s Arthritis Father Cancer Maternal Aunt 7 aunts with breast or ovarian cancer. details unknown SOCIAL HISTORY: Social History Tobacco Use Smoking status: Never Smokeless tobacco: Never Vaping Use Vaping Use: Never used Substance Use Topics Alcohol use: No Drug use: No Marital Status: PAST GYNECOLOGIC HISTORY: OB History T0 L0 SAB0 IAB2 Ectopic0 Multiple0 Live Births0 LMP: No LMP recorded. Patient has had a hysterectomy. HEALTH MAINTENANCE: Last pap: 01/27/2016 negative Last mammogram: 07/04/2021, Breast MRI 12/31/21 - both normal Last colonoscopy: 05/01/2016 ALLERGIES Allergen Reactions Penicillins Rash Sulfa (Sulfonamide * Unknown MEDICATIONS atorvastatin (LIPITOR) 10 mg tablet Take 1 tablet by mouth once daily. ramipril (ALTACE) 10 mg capsule Take 1 capsule by mouth once daily. INTERVAL HISTORY: Patient states she is having muscle soreness, pain above pubic bone, and cramping. She is concernedbecause when she felt like this a few years ago, she kept dismissing the symptoms and she was eventually diagnosed with cancer. Wants to make sure that her cancer is not coming back. Pain has been present for 3 weeks now. States that it is located above her pubic bone. Sometimes it starts on the right side of abdomen and other times it can radiate to the left side of abdomen. Pain seems to occur randomly. She describes it as sharp. Nothing seems to aggravate it. She says sometimes when she sitsdown initially she may feel pressure and then it subsides after a few minutes. Nothing makes it better. No treatments tried. Pain can last anywhere from a few minutes to several hours. Patient statesthe last time she experienced the pain was on 04/02/22. She has not had the pain for the last few days. She has been trying to keep a notebook to write down when she experiences the pain to see if itcorrelates with anything. Patient has also been having more flatulence. Denies any change in diet. States her is a meat and potatoes yosi so they usually eat that with a vegetable every night. No changes in her bowelhabits. Has always had some mild constipation. She has a little bit of pressure when she first starts to go but then does not have any pain. She has a bowel movement every morning. Patient has been experiencing some urinary leakage with sneezing and sometimes when climbing stairs. This is new for her over the last few weeks. Complains of some bladder pressure when she first starts urinating that then subsides. She denies dysuria, hematuria, or urinary frequency. Early in the morning, she doesn't always make it to the bathroom and has some urinary leakage then. States she stops drinking fluids at 7:30 pm and goes to bed at 8:30 pm. After she urinates, she feels that she empties her bladder completely. Does not need to urinate for a few hours after she goes. Has not started any new medications. Urge/stress Stop drinking at 6:30/7. PHYSICAL EXAM: Deferred due to telephone visit. RESULTS: CA 125 (U/mL) Date Value 03/23/2022 12 02/24/2022 10 01/19/2022 10 12/23/2021 10 11/24/2021 11 10/27/2021 11 09/29/2021 10 09/01/2021 9 07/07/2021 8 06/09/2021 9 05/12/2021 8 04/14/2021 8 02/19/2021 9 12/09/2020 9 10/23/2020 9 09/27/2020 8 08/23/2020 8 07/26/2020 8 06/28/2020 8 03/28/2020 8 02/01/2020 8 01/01/2020 8 10/20/2019 8 09/22/2019 7 08/25/2019 8 07/28/2019 8 07/20/2019 8 07/14/2019 9 07/07/2019 8 06/20/2019 9 03/27/2019 7 09/12/2018 1,153 01/19/22 HGB A1C Component Ref Range & Units 2 mo ago (01/19/22) 8 mo ago (07/07/21) 1 yr ago (11/20/20) 1 yr ago (06/28/20) 2 yr ago (11/17/19) 2 yr ago (06/20/19) 3 yr ago (01/06/19) Hemoglobin A1C 4.3 - 5.6 % 5.6 5.5 CM 5.6 CM 5.5 CM 5.3 CM 5.7 High CM 5.8 High CM Comment: [place] Diabetes Association guidelines indicate that patients with HgbA1c in the range 5.7-6.4% are at increased risk for development of diabetes, and intervention by lifestyle modification may be beneficial. HgbA1c greater or equal to 6.5% is considered diagnostic of diabetes. Estimated Average Glucose mg/dL 114 111 CM 114 CM 111 CM 105 CM 117 CM 120 CM Comment: eAG: (Estimated average glucose) is a calculated value from HgbA1c and is insurance claims representative of the average blood glucose level in the last 2-3 month period. 01/19/22 COMP METABOLIC PANEL Component Ref Range & Units 2 mo ago (01/19/22) 8 mo ago (07/07/21) 8 mo ago (07/07/21) 9 mo ago (06/09/21) 1 yr ago (03/17/21) 1 yr ago (11/20/20) 1 yr ago (10/23/20) Protein, Total 6.3 - 8.0 g/dL 7.3 6.6 Test reordered by [facility]. VC, CM 6.9 6.8 Albumin 3.9 - 4.9 g/dL 4.6 4.5 Test reordered by [facility]. VC, CM 4.5 4.5 Calcium, Total 8.5 - 10.2 mg/dL 9.4 9.6 Test reordered by [facility]. VC, CM 9.7 9.3 Bilirubin, Total 0.2 - 1.3 mg/dL 0.8 0.5 Test reordered by [facility]. VC, CM 0.6 0.6 Alkaline Phosphatase 34 - 123 U/L 83 87 Test reordered by [facility]. VC, CM 81 87 AST 13 - 35 U/L 20 20 Test reordered by [facility]. VC, CM 22 21 ALT 7 - 38 U/L 11 14 Test reordered by [facility]. VC, CM 12 11 Glucose 74 - 99 mg/dL 89 88 CM Test reordered by [facility]. VC, CM 93 CM 101 High CM Comment: The [place] Diabetes Association (ADA) provides guidance for cutoff values for fasting glucose and random glucose. The ADA defines fasting as no caloric intake for at least 8 hours. Fastingplasma glucose results between 100 to 125 mg/dL indicate increased risk for diabetes (prediabetes). Fasting plasma glucose results greater than or equal to 126 mg/dL meet the criteria for diagnosis of diabetes. In the absence of unequivocal hyperglycemia, results should be confirmed by repeat testing. In a patient with classic symptoms of hyperglycemia or hyperglycemic crisis, random plasma glucose results greater than or equal to 200 mg/dL meet the criteria for diagnosis of diabetes. Reference: Standards of Medical Care in Diabetes 2016, [place] [employer] Association. Diabetes Care. 2016.39(Suppl 1). BUN 7 - 21 mg/dL 26 High 25 High Test reordered by [facility]. VC, CM 22 High 25 High Creatinine 0.58 - 0.96 mg/dL 0.76 0.76 Test reordered by [facility]. VC, CM 0.90 0.90 0.87 0.86 Sodium 136 - 144 mmol/L 137 143 Test reordered by [facility]. VC, CM 136 134 Low Potassium 3.7 - 5.1 mmol/L 4.3 4.4 Test reordered by [facility]. VC, CM 4.4 4.5 Chloride 97 - 105 mmol/L 101 107 High Test reordered by [facility]. VC, CM 102 99 CO2 22 - 30 mmol/L 24 21 Low Test reordered by [facility]. VC, CM 27 25 Anion Gap 9 - 18 mmol/L 12 15 Test reordered by [facility]. VC, CM 7 Low 10 Estimated Glomerular Filtration Rate >=60 mL/min/1.73m 83 Comment: Estimated Glomerular Filtration Rate (eGFR) is calculated using the 2020 CKD-EPI creatinine equation. This equation utilizes serum creatinine, sex, and age as parameters. The creatinine assay has traceable calibration to isotope dilution-mass spectrometry. Refer to KDIGO guidelines for clinical interpretation. In patients with unstable renal function, e.g. those with acute kidney injury,the eGFR may not accurately reflect actual GFR. Resulting Agency [facility] 01/19/22 LIPID PANEL, NONFASTING Component Ref Range & Units 2 mo ago (01/19/22) 8 mo ago (07/07/21) 1 yr ago (11/20/20) 1 yr ago (06/28/20) 2 yr ago (01/01/20) 3 yr ago (01/06/19) 3 yr ago (12/29/18) Total Cholesterol, Nonfasting <200 mg/dL 155 161 CM 132 CM 150 CM 147 CM 168 CM 177 CM Comment: <200 mg/dL, Desirable 200-239 mg/dL, Borderline high >239 mg/dL, High Triglycerides, Nonfasting <150 mg/dL 96 85 CM 92 CM 90 CM 86 CM 89 CM 112 CM Comment: <150 mg/dL, Normal 150-199 mg/dL, Borderline high 200-499 mg/dL, High >499 mg/dL, Very high HDL Cholesterol, Nonfasting >39 mg/dL 49 48 CM 48 CM 53 CM 53 CM 39 Low CM 39 Low CM Comment: 40-59 mg/dL, Acceptable >59 mg/dL, High: Negative risk factor for coronary heart disease <40 mg/dL, Low: Positive risk factor for coronary heart disease LDL Cholesterol, Nonfasting <100 mg/dL 87 96 CM 66 CM 79 CM 77 CM 111 High CM 116 High CM Comment: <100 mg/dL, Optimal 100-129 mg/dL, Near optimal/above optimal 130-159 mg/dL, Borderline high 160-189 mg/dL, High >189 mg/dL, Very high Secondary prevention optimal LDL Cholesterol levels are recommended to be < 70 mg/dL Non HDL Cholesterol, Nonfasting <130 mg/dL 106 113 CM 84 CM 97 CM 94 CM 129 CM 138 High CM Comment: <130 mg/dL, Optimal 130-159 mg/dL, Near optimal/above optimal 160-189 mg/dL, Borderline high 190-219 mg/dL, High >219 mg/dL, Very high Secondary prevention optimal non HDL Cholesterol levels are recommended to be <100 mg/dL VLDL Cholesterol, Nonfasting <30 mg/dL 19 17 18 18 17 18 22 Total Chol/HDL Ratio, Nonfasting <5.10 mg/dL 3.16 3.35 2.75 2.83 2.77 4.31 4.54 LDL/HDL Ratio, Nonfasting <2.54 mg/dL 1.78 2.00 CM 1.38 CM 1.49 CM 1.45 CM 2.85 High CM 2.97 High CM Comment: Reference: 1. National Cholesterol Education Program ATP III Guideline At-A-Glance Quick Desk Reference: National Heart, Lung, and Blood [place]. National Institutes of Health. 2001: NIH Publication No. 01-3305. 2. An International Atherosclerosis Society position paper: global recommendations for the management of dyslipidemia: executive summary, Atherosclerosis. 2014: 232(2):410-413. Resulting Agency [facility] 03/23/22 CBC + DIFF Component Ref Range & Units 1 d ago (03/23/22) 4 wk ago (02/24/22) 2 mo ago (01/19/22) 3 mo ago (12/23/21) 4 mo ago (11/24/21) 4 mo ago (10/27/21) 5 mo ago (09/29/21) WBC 3.70 - 11.00 k/uL 5.97 5.76 5.37 4.81 4.87 5.66 5.31 RBC 3.90 - 5.20 m/uL 4.56 4.53 4.51 4.35 4.51 4.62 4.30 Hemoglobin 11.5 - 15.5 g/dL 12.4 12.2 12.1 11.7 12.0 12.4 12.1 Hematocrit 36.0 - 46.0 % 38.2 37.8 37.7 35.5 Low 37.3 39.0 37.7 MCV 80.0 - 100.0 fL 83.8 83.4 83.6 81.6 82.7 84.4 87.7 MCH 26.0 - 34.0 pg 27.2 26.9 26.8 26.9 26.6 26.8 28.1 MCHC 30.5 - 36.0 g/dL 32.5 32.3 32.1 33.0 32.2 31.8 32.1 RDW-CV 11.5 - 15.0 % 14.5 14.9 15.1 High 15.5 High 15.7 High 14.9 14.2 Platelet Count 150 - 400 k/uL 139 Low 139 Low 137 Low 127 Low 132 Low 139 Low 129 Low CM MPV 9.0 - 12.7 fL 9.6 10.0 10.0 9.5 9.9 9.8 9.9 Neut% % 65.7 61.9 63.5 62.8 58.5 57.9 62.1 Abs Neut 1.45 - 7.50 k/uL 3.92 3.56 3.41 3.02 2.85 3.28 3.30 Lymph% % 23.8 26.2 25.1 25.4 30.2 29.5 27.1 Abs Lymph 1.00 - 4.00 k/uL 1.42 1.51 1.35 1.22 1.47 1.67 1.44 [place]% % 9.2 10.2 9.7 9.8 9.9 11.0 9.4 Abs [place] <0.87 k/uL 0.55 0.59 0.52 0.47 0.48 0.62 0.50 Eosin% % 0.7 0.9 0.9 1.0 1.0 0.7 0.6 Abs Eosin <0.46 k/uL 0.04 0.05 0.05 0.05 0.05 0.04 0.03 Baso% % 0.3 0.3 0.6 0.6 0.2 0.5 0.4 Abs Baso <0.11 k/uL <0.03 <0.03 0.03 0.03 <0.03 0.03 <0.03 Immature Gran % % 0.3 0.5 0.2 0.4 0.2 0.4 0.4 Abs Immature Gran <0.10 k/uL <0.03 0.03 <0.03 <0.03 <0.03 <0.03 <0.03 NRBC /100 WBC 0.0 0.0 0.0 0.0 0.0 0.0 0.0 Absolute nRBC <0.01 k/uL <0.01 <0.01 <0.01 <0.01 <0.01 <0.01 <0.01 Diff Type Auto Auto Auto Auto Auto Auto Auto Resulting Agency [facility] ASSESSMENT & PLAN: 09/10/2020 - Dr. 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 Interval testing since last visit discussed, CA125 reviewed and within normal limits. Patient is up-to-date with health maintenance includingmammogram, colonoscopy and advanced directives. Reviewed issues of survivorship including sexual health after cancer treatment, mental health and support systems. Importance of cancer surveillance and early detection of recurrence reinforced. 10/28/2020- Heather Lutz NP (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 Advised her value is stable. Last CT scan was in March 2020. Will order CT of the chest abdomen and pelvis for reevaluation while on PARPi therapy. Patient would like to establish with Dr. Cote, will move her appointment with me from 12/[address] Dawson on 12/[address] scans the week before. Continue monthly labs while on PARPi therapy Patient verbalized an understanding and agreed with the plan. Instructed to call if she has any questions or concerns. 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 Patient expressed concern about receiving the COVID vaccine while taking Olaparib. I advised the patient to continue with the COVID vaccine and discussed findings that supported my recommendation with her. Patient is receptive to recommendation. I answered all of the patient's and patient's 's questions and addressed their concerns. Plan to RTC in March [address] before and in June 2021. Continue with monthly CBC, and CA 125 prior to office visit with me in [place]. Patient verbalized an understanding and agreed with the plan. 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 I reviewed the most recent CT results with the patient which showed no acute pathology, no suspicious pulmonary nodules, no thoracic lymphadenopathy in the chest, and no acute pathology, and no mass or lymphadenopathy in the abdomen and pelvis. Ms. Patel received the 2nd COVID vaccine in January, and reports experiencing hot flashes since that time. I believe that this might be due to the Lynparza. Ms. Patel also complains of leg cramps that onset at night. I recommend taking multivitamins daily, as well as eating a diet rich in Potassium. Ms. Patel will continue taking Lynparza until the last day in May. Plan to RTC on June 25, [address], CBC, and CA [address] results show no new evidence of disease, we will discuss stopping her PARP. We will discuss the cancer surveillance timeline at the next visit. 07/04/2021 Stop lynparza. Ok to stop protonix in 2-3 weeks after stopping lynparza. I recommend leaving port for one year. Discuss in one year. Discussed no scans needed unless concerning s/s of recurrence. CA 125 prior to each office visit. 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 Discussed she may have some improvement but hard to say at this point. Recommend KN95 with omicron variant. Discussed covid testing guidelines. Follow up in 3 months 10/01/2021 Impression: History of Ovarian Cancer, most recently had completed Olaparib . CA 125 is 10, stable, but she is worried because it has increased by 1 point. Discussed the significance of small changes in CA 125 and anxiety which often accompany's this. Plan: CA 125 and clinical examination in December. Vulvar dryness and itching. Will prescribe Lotrisone cream. Said she had this in past and it helped her. She will call office if symptoms of itching, and dryness don't resolve in the next couple of weeks. 12/31/21 Karishma Franz, CERTIFIED ORTHOTIST/PEDORTHIST.REGIONAL WILDLIFE AGENT Doing well. CA 125 is stable. Some bladder symptoms at times. Intermittent. Discussed pelvic floor PT. Will trial melatonin for insomnia and some assistance with constipation. BMD ordered for osteopenia screening. 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 No clinical evidence of disease. She has been off her PARP for approximately 9 months. Repeat CA 125 in 3 months. If CA 125 value is >15, (the roberto value,) will check CT scan as well. Reviewed signs and symptoms of recurrence and told to call with persisting concerns. Follow up in clinic in June for continued surveillance. 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 Does not sound suspicious of cancer asit is not constant, occurs randomly, and has not worsened over the last 3 weeks. -Normal Ca-125 03/23/2022 = 12. -Office visit 03/25/[address] Cote, patient had a normal pelvic exam without evidence of disease. -Patient also experiencing urinary leakage. UA already ordered and appears normal. Will wait to seewhat urine culture shows. -Will order CBC, CMP, CA 125 2. Urge/Stress Incontinence -Mixed urge and stress incontinence. Discussed stopping fluid intake at 6:30 pm to give 2 more hours without fluids before going to bed to see if that helps with urge in the morning. -Discussed pelvic floor PT. If this does not help, we could always try medication or refer patient to Uro/Decontamination Technician although symptoms are not too bothersome yet. Patient would like to hold off at this timeto make sure this is not cancer reoccurrence. Patient instructed to make us aware if pain becomes persistent or worsens. Will follow up with urine culture and labs. Patient instructed to RTC in June with CA 125 prior and will call sooner withany questions/concerns. Patient made aware based off of labs I may order additional imaging but I would let her know once I have received all results. Patient verbalizes understanding and is in agreement with plan. BENNETT Gonzalez Medical Decision Making: Problems: Moderate: 2+ stable chronic illnesses Data: Unique test result(s) reviewed: 1 Unique test(s) ordered: 1 Medical Decision Making Level: 3 - Low Documentation from Fang Cote MD's notes of previous visit of 03/25/2022 was copied and pasted, documentation has been reviewed and edited as necessary and is current for today. documented in this encounterSt. [facility] Miscellaneous Notes* Telephone Encounter - Corinne Santana RN - 04/08/2022 2:46 PM EDT Spoke with Sandi r/t pt's ongoing symptoms and UA results. Sandi states that she is reassured that exam by Rocael on 03/25 was normal. Would like to wait on results on urine cult to finalize. Offers pt VV tomorrow at 0900 to discuss further is pt wishes. Above information was discussed with pt. Pt would like to speak with COMPENSATION EXPERT r/t symptoms. Appt was made. Corinne Santana RN * Telephone Encounter - Corinne Santana RN - 04/08/2022 12:25 PM EDT Spoke with pt. Pt was given phone number to [facility] to reschedule port draw lab. Pt also wishes to move 06/26 appt to later in the day. Appt time moved to 1110. Pt inquiring about results of UA/cult. Informed that UA is WNL. Cult is still pending. Pt stated she is still having suprapubic pain and pressure/pain when she urinates. Informed that I will pass along these symptoms to COMPENSATION EXPERT for possible televisit today, and/or OV before end of week. Pt is in agreement with this plan. Corinne Santana RN * Telephone Encounter - Corinne Santana RN - 04/08/2022 12:24 PM EDT ----- Message from Mellissa KU sent at 04/08/2022 10:29 AM EDT ----- Regarding: rocael Patient has questions regarding her port draw dates, would like to know if these can be changed. [phone] documented in this encounterSt. [facility]10-[facility]22 Miscellaneous Notes* Telephone Encounter - Corinne Santana RN - 04/06/2022 10:41 AM EDT Spoke with pt regarding c/o symptoms listed below. Pt is fearful this may be symptoms of a recurrence of her cancer. Discussed r/o other causes first. Emotional support offered. Pt further describes symptoms as suprapubic soreness and mild pain, that has developed over the last few days. Pt also reports urinary urgency each morning and cannot make it to the bathroom without urinary leakage almost daily. This is a new symptom within the last week. Pt denies dysuria, or foul odor with urination. Pt is afebrile. Pt is not taking any OTC pain meds for discomfort. Explained I will ask for UA/cult orders to be placed. Pt states she will go to [place] lab tomorrow. Corinne Santana RN * Telephone Encounter - Corinne Santana RN - 04/06/2022 10:41 AM EDT ----- Message from Iman Ku sent at 04/06/2022 9:36 AM EDT ----- Regarding: Rocael Patient calling Feeling pressure when sitting near her rectum for a few seconds up to a minute and then it goes away Having issues with not being able to hold her bladder throughout the night, will sometimes leak on the way to the bathroom Has a question about her port draw appointments not being scheduled Ph. [phone] documented in this encounterSt. [facility]10-[facility] History of Present illness Narrative* Fang Cote MD - 03/25/2022 10:50 AM EDT [facility] Follow up visit Date of service: 03/25/2022 PROBLEM/CC: Savana Patel presents for follow-up of ovarian cancer. HPI: Ms. 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 *neutropenia/thrombocytopenia causing treatment delay. Neulasta OnPro added; switch to Q21D dosing of Taxol with cycles 5 & 6 02/23/2019 - 03/17/2019: PACLITAXEL 135 D1 CARBOPLATIN 6 D1 - Q21D s/p 2 cycles. 3) 06/30/2019 - 06/20/2022: olaparib (LYNPARZA) 150 mg tablet; 300 mg BID. GENETIC TESTIN10/2018: Consultation ordered, patient counseled on testing several times 04/2019: BRACAnalysis with [employer] through [employer] was positive for a deleterious mutation, [id number] ([id number]), in BRCA2. 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 HISTORIES: PAST MEDICAL HISTORY Diagnosis Date Actinic keratosis 04/12/2007 DEANDRE positive 07/25/2016 Rheum felt just Arthritis. 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///NEVUS, NON-NEOPLASTIC 02/18/2007 Constipation 04/04/2015 Dysmetabolic syndrome X 12/28/2007 Essential hypertension 04/04/2015 GERD without esophagitis 07/24/2020 Hemorrhage of gastrointestinal tract, unspecified History of left mastectomy 05/05/2018 Impaired fasting glucose 11/21/2007 Internal hemorrhoids without mention of complication Leg cramps 01/08/[address] 07/31/2021 DPA is Living will on file 07/31/2021 DPA: Javier ( ) Malignant neoplasm of both ovaries (HCC) 10/26/2018 Mixed hyperlipidemia 04/04/2015 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 Osteoarthritis of multiple joints 07/27/2016 Osteopenia 12/28/2012 Other acne 05/29/2008 Other seborrheic keratosis 02/18/2007 Panic attacks 07/18/2012 SOLAR LENGINES///DYSCHROMIA OTHER 02/18/2007 Thrombocytopenia (HCC) 01/29/2022 chronic Trigger ring finger of left hand 07/24/2020 Trigger ring finger of right hand 07/24/2020 PAST SURGICAL HISTORY Procedure Laterality Date BX BREAST PERC VACUUM/ROTN 10/26/07 LEFT COLONOSCOPY FLX DX W/COLLJ SPEC WHEN PFRMD 07/20/05 COLONOSCOPY FLX DX W/COLLJ SPEC WHEN PFRMD 05/01/16 normal - 10 year follow up LIG/TRNSXJ FLP TUBE ABDL/VAG APPR UNI/BI Tubal ligation MAST RAD W/PECTORAL MUSCLES AXILLARY LYMPH NODES 11/26 Left PAST SURGICAL HISTORY OF BACK SURGERY PAST SURGICAL HISTORY OF 10/06/2018 Exploratory laparotomy, total abdominal hysterectomy, bilateral salpingooophorectomy, and bladder and posterior culdesac peritoneum resected en bloc, omentectomy PLCMT LOCALZTN CLIP,PERC,DURING BREAST BX 10/26/07 LEFT S PORT-A-CATH [id number] 11/09/2018 TONSILLECTOMY PRIMARY/SECONDARY <AGE 11 Tonsillectomy FAMILY HISTORY Problem Relation Age of Onset Ovarian cancer Mother dx 50s Arthritis Father Cancer Maternal Aunt 7 aunts with breast or ovarian cancer. details unknown SOCIAL HISTORY: Social History Tobacco Use Smoking status: Never Smokeless tobacco: Never Vaping Use Vaping Use: Never used Substance Use Topics Alcohol use: No Drug use: No Marital Status: PAST GYNECOLOGIC HISTORY: OB History T0 L0 SAB0 IAB2 Ectopic0 Multiple0 Live Births0 LMP: No LMP recorded. Patient has had a hysterectomy. HEALTH MAINTENANCE: Last pap: 01/27/2016 negative Last mammogram: 07/04/2021, Breast MRI 12/31/21 - both normal Last colonoscopy: 05/01/2016 ALLERGIES Allergen Reactions Penicillins Rash Sulfa (Sulfonamide * Unknown MEDICATIONS atorvastatin (LIPITOR) 10 mg tablet Take 1 tablet by mouth once daily. ramipril (ALTACE) 10 mg capsule Take 1 capsule by mouth once daily. INTERVAL HISTORY: Savana Patel appears today for continued surveillance, she reports that she feels well. She presents today with her . She has not had any treatment for cancer since May 2021. She has been feeling good. She reports increased flatulence and notes some muscle soreness from time to time. She reports intermittent urinary urgency accompanied by occasional leakage. No change in diet. She is not in any pain today. Notes some stable neuropathy in hands and feet, otherwise no lingering side effects from cancer treatment. She is still able to button and zip her clothes. Port should be left in until at least next Spring, as long as it is comfortable there is no urgencyto have it removed. had an MRI of her breast on 12/31/21 and it was normal. Discussed COVID Booster & Flu Vaccine. Neither Savana nor Javier Patel have had COVID, they are cautious. She reports they double mask and avoid crowds. She has never had a flu shot, encouraged toget one this year. PHYSICAL EXAM: VITALS: BP 121/64 Pulse 64 Temp 36.3 C (97.4 F) (Temporal) Wt 60.3 kg (133 lb) SpO2 98% BMI 22.13 kg/m GENERAL: Patient is a well developed, well nourished, no acute distress. Presenting with her SKIN: Color, texture, turgor normal. No rashes or lesions. NECK: Supple, no adenopathy; thyroid symmetric, normal size, no bruits LUNGS: Respirations unlabored. Chest clear. HEART: Regular rate and rhythm. No murmer. No JVD. ABDOMEN: Nontender. No palpable masses. No incisional hernia felt. Liver and spleen not palpably enlarged. No ascites apparent. PELVIC: Vulva normal in appearance and nontender. Vagina no lesions. No pelvic masses. Cervix and uterus surgically absent. Bladder non tender. Rectal exam normal, no apparent blood in stool. PSYCHIATRIC: Alert, cooperative. Normal affect. Normal behavior. LYMPH NODES: No palpable enlarged nodes in neck, groin or axilla. NEURO: Normal sensory. Motor intact and symmetric. Gait normal. LOWER EXTREMITIES: Not tender. No ulcers or swelling. Deep tendon reflexes are present PORT: Mediport on right remains in place Veneer Sander for exam: Chidi Junior APRN.REGIONAL WILDLIFE AGENT RESULTS: CA 125 (U/mL) Date Value 03/23/2022 12 02/24/2022 10 01/19/2022 10 12/23/2021 10 11/24/2021 11 10/27/2021 11 09/29/2021 10 09/01/2021 9 07/07/2021 8 06/09/2021 9 05/12/2021 8 04/14/2021 8 02/19/2021 9 12/09/2020 9 10/23/2020 9 09/27/2020 8 08/23/2020 8 07/26/2020 8 06/28/2020 8 03/28/2020 8 02/01/2020 8 01/01/2020 8 10/20/2019 8 09/22/2019 7 08/25/2019 8 07/28/2019 8 07/20/2019 8 07/14/2019 9 07/07/2019 8 06/20/2019 9 03/27/2019 7 09/12/2018 1,153 01/19/22 HGB A1C Component Ref Range & Units 2 mo ago (01/19/22) 8 mo ago (07/07/21) 1 yr ago (11/20/20) 1 yr ago (06/28/20) 2 yr ago (11/17/19) 2 yr ago (06/20/19) 3 yr ago (01/06/19) Hemoglobin A1C 4.3 - 5.6 % 5.6 5.5 CM 5.6 CM 5.5 CM 5.3 CM 5.7 High CM 5.8 High CM Comment: [place] [employer] guidelines indicate that patients with HgbA1c in the range 5.7-6.4% are at increased risk for development of diabetes, and intervention by lifestyle modification may be beneficial. HgbA1c greater or equal to 6.5% is considered diagnostic of diabetes. Estimated Average Glucose mg/dL 114 111 CM 114 CM 111 CM 105 CM 117 CM 120 CM Comment: eAG: (Estimated average glucose) is a calculated value from HgbA1c and is insurance claims representative of the average blood glucose level in the last 2-3 month period. 01/19/22 COMP METABOLIC PANEL Component Ref Range & Units 2 mo ago (01/19/22) 8 mo ago (07/07/21) 8 mo ago (07/07/21) 9 mo ago (06/09/21) 1 yr ago (03/17/21) 1 yr ago (11/20/20) 1 yr ago (10/23/20) Protein, Total 6.3 - 8.0 g/dL 7.3 6.6 Test reordered by [facility]. VC, CM 6.9 6.8 Albumin 3.9 - 4.9 g/dL 4.6 4.5 Test reordered by [facility]. VC, CM 4.5 4.5 Calcium, Total 8.5 - 10.2 mg/dL 9.4 9.6 Test reordered by [facility]. VC, CM 9.7 9.3 Bilirubin, Total 0.2 - 1.3 mg/dL 0.8 0.5 Test reordered by [facility]. VC, CM 0.6 0.6 Alkaline Phosphatase 34 - 123 U/L 83 87 Test reordered by [facility]. VC, CM 81 87 AST 13 - 35 U/L 20 20 Test reordered by [facility]. VC, CM 22 21 ALT 7 - 38 U/L 11 14 Test reordered by [facility]. VC, CM 12 11 Glucose 74 - 99 mg/dL 89 88 CM Test reordered by [facility]. VC, CM 93 CM 101 High CM Comment: The [place] Diabetes Association (ADA) provides guidance for cutoff values for fasting glucose and random glucose. The ADA defines fasting as no caloric intake for at least 8 hours. Fastingplasma glucose results between 100 to 125 mg/dL indicate increased risk for diabetes (prediabetes). Fasting plasma glucose results greater than or equal to 126 mg/dL meet the criteria for diagnosis of diabetes. In the absence of unequivocal hyperglycemia, results should be confirmed by repeat testing. In a patient with classic symptoms of hyperglycemia or hyperglycemic crisis, random plasma glucose results greater than or equal to 200 mg/dL meet the criteria for diagnosis of diabetes. Reference: Standards of Medical Care in Diabetes 2016, [place] [employer] Association. Diabetes Care. 2016.39(Suppl 1). BUN 7 - 21 mg/dL 26 High 25 High Test reordered by [facility]. VC, CM 22 High 25 High Creatinine 0.58 - 0.96 mg/dL 0.76 0.76 Test reordered by [facility]. VC, CM 0.90 0.90 0.87 0.86 Sodium 136 - 144 mmol/L 137 143 Test reordered by [facility]. VC, CM 136 134 Low Potassium 3.7 - 5.1 mmol/L 4.3 4.4 Test reordered by [facility]. VC, CM 4.4 4.5 Chloride 97 - 105 mmol/L 101 107 High Test reordered by [facility]. VC, CM 102 99 CO2 22 - 30 mmol/L 24 21 Low Test reordered by [facility]. VC, CM 27 25 Anion Gap 9 - 18 mmol/L 12 15 Test reordered by [facility]. VC, CM 7 Low 10 Estimated Glomerular Filtration Rate >=60 mL/min/1.73m 83 Comment: Estimated Glomerular Filtration Rate (eGFR) is calculated using the 2020 CKD-EPI creatinine equation. This equation utilizes serum creatinine, sex, and age as parameters. The creatinine assay has traceable calibration to isotope dilution-mass spectrometry. Refer to KDIGO guidelines for clinical interpretation. In patients with unstable renal function, e.g. those with acute kidney injury,the eGFR may not accurately reflect actual GFR. Resulting Agency [facility] 01/19/22 LIPID PANEL, NONFASTING Component Ref Range & Units 2 mo ago (01/19/22) 8 mo ago (07/07/21) 1 yr ago (11/20/20) 1 yr ago (06/28/20) 2 yr ago (01/01/20) 3 yr ago (01/06/19) 3 yr ago (12/29/18) Total Cholesterol, Nonfasting <200 mg/dL 155 161 CM 132 CM 150 CM 147 CM 168 CM 177 CM Comment: <200 mg/dL, Desirable 200-239 mg/dL, Borderline high >239 mg/dL, High Triglycerides, Nonfasting <150 mg/dL 96 85 CM 92 CM 90 CM 86 CM 89 CM 112 CM Comment: <150 mg/dL, Normal 150-199 mg/dL, Borderline high 200-499 mg/dL, High >499 mg/dL, Very high HDL Cholesterol, Nonfasting >39 mg/dL 49 48 CM 48 CM 53 CM 53 CM 39 Low CM 39 Low CM Comment: 40-59 mg/dL, Acceptable >59 mg/dL, High: Negative risk factor for coronary heart disease <40 mg/dL, Low: Positive risk factor for coronary heart disease LDL Cholesterol, Nonfasting <100 mg/dL 87 96 CM 66 CM 79 CM 77 CM 111 High CM 116 High CM Comment: <100 mg/dL, Optimal 100-129 mg/dL, Near optimal/above optimal 130-159 mg/dL, Borderline high 160-189 mg/dL, High >189 mg/dL, Very high Secondary prevention optimal LDL Cholesterol levels are recommended to be < 70 mg/dL Non HDL Cholesterol, Nonfasting <130 mg/dL 106 113 CM 84 CM 97 CM 94 CM 129 CM 138 High CM Comment: <130 mg/dL, Optimal 130-159 mg/dL, Near optimal/above optimal 160-189 mg/dL, Borderline high 190-219 mg/dL, High >219 mg/dL, Very high Secondary prevention optimal non HDL Cholesterol levels are recommended to be <100 mg/dL VLDL Cholesterol, Nonfasting <30 mg/dL 19 17 18 18 17 18 22 Total Chol/HDL Ratio, Nonfasting <5.10 mg/dL 3.16 3.35 2.75 2.83 2.77 4.31 4.54 LDL/HDL Ratio, Nonfasting <2.54 mg/dL 1.78 2.00 CM 1.38 CM 1.49 CM 1.45 CM 2.85 High CM 2.97 High CM Comment: Reference: 1. National Cholesterol Education Program ATP III Guideline At-A-Glance Quick Desk Reference: National Heart, Lung, and Blood [place]. National Institutes of Health. 2001: NIH Publication No. 01-3305. 2. An International Atherosclerosis Society position paper: global recommendations for the management of dyslipidemia: executive summary, Atherosclerosis. 2014: 232(2):410-413. Resulting Agency [facility] [employer] [facility] [employer] [facility] 03/23/22 CBC + DIFF Component Ref Range & Units 1 d ago (03/23/22) 4 wk ago (02/24/22) 2 mo ago (01/19/22) 3 mo ago (12/23/21) 4 mo ago (11/24/21) 4 mo ago (10/27/21) 5 mo ago (09/29/21) WBC 3.70 - 11.00 k/uL 5.97 5.76 5.37 4.81 4.87 5.66 5.31 RBC 3.90 - 5.20 m/uL 4.56 4.53 4.51 4.35 4.51 4.62 4.30 Hemoglobin 11.5 - 15.5 g/dL 12.4 12.2 12.1 11.7 12.0 12.4 12.1 Hematocrit 36.0 - 46.0 % 38.2 37.8 37.7 35.5 Low 37.3 39.0 37.7 MCV 80.0 - 100.0 fL 83.8 83.4 83.6 81.6 82.7 84.4 87.7 MCH 26.0 - 34.0 pg 27.2 26.9 26.8 26.9 26.6 26.8 28.1 MCHC 30.5 - 36.0 g/dL 32.5 32.3 32.1 33.0 32.2 31.8 32.1 RDW-CV 11.5 - 15.0 % 14.5 14.9 15.1 High 15.5 High 15.7 High 14.9 14.2 Platelet Count 150 - 400 k/uL 139 Low 139 Low 137 Low 127 Low 132 Low 139 Low 129 Low CM MPV 9.0 - 12.7 fL 9.6 10.0 10.0 9.5 9.9 9.8 9.9 Neut% % 65.7 61.9 63.5 62.8 58.5 57.9 62.1 Abs Neut 1.45 - 7.50 k/uL 3.92 3.56 3.41 3.02 2.85 3.28 3.30 Lymph% % 23.8 26.2 25.1 25.4 30.2 29.5 27.1 Abs Lymph 1.00 - 4.00 k/uL 1.42 1.51 1.35 1.22 1.47 1.67 1.44 [place]% % 9.2 10.2 9.7 9.8 9.9 11.0 9.4 Abs [place] <0.87 k/uL 0.55 0.59 0.52 0.47 0.48 0.62 0.50 Eosin% % 0.7 0.9 0.9 1.0 1.0 0.7 0.6 Abs Eosin <0.46 k/uL 0.04 0.05 0.05 0.05 0.05 0.04 0.03 Baso% % 0.3 0.3 0.6 0.6 0.2 0.5 0.4 Abs Baso <0.11 k/uL <0.03 <0.03 0.03 0.03 <0.03 0.03 <0.03 Immature Gran % % 0.3 0.5 0.2 0.4 0.2 0.4 0.4 Abs Immature Gran <0.10 k/uL <0.03 0.03 <0.03 <0.03 <0.03 <0.03 <0.03 NRBC /100 WBC 0.0 0.0 0.0 0.0 0.0 0.0 0.0 Absolute nRBC <0.01 k/uL <0.01 <0.01 <0.01 <0.01 <0.01 <0.01 <0.01 Diff Type Auto Auto Auto Auto Auto Auto Auto Resulting Agency [facility] ASSESSMENT & PLAN: 09/10/2020 - Dr. 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 Interval testing since last visit discussed, CA125 reviewed and within normal limits. Patient is up-to-date with health maintenance includingmammogram, colonoscopy and advanced directives. Reviewed issues of survivorship including sexual health after cancer treatment, mental health and support systems. Importance of cancer surveillance and early detection of recurrence reinforced. 10/28/2020- Heather Lutz NP (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 Advised her value is stable. Last CT scan was in March 2020. Will order CT of the chest abdomen and pelvis for reevaluation while on PARPi therapy. Patient would like to establish with Dr. Cote, will move her appointment with me from 12/[address] Dawson on 12/[address] scans the week before. Continue monthly labs while on PARPi therapy Patient verbalized an understanding and agreed with the plan. Instructed to call if she has any questions or concerns. 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 Patient expressed concern about receiving the COVID vaccine while taking Olaparib. I advised the patient to continue with the COVID vaccine and discussed findings that supported my recommendation with her. Patient is receptive to recommendation. I answered all of the patient's and patient's 's questions and addressed their concerns. Plan to RTC in March [address] before and in June 2021. Continue with monthly CBC, and CA 125 prior to office visit with me in [place]. Patient verbalized an understanding and agreed with the plan. 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 I reviewed the most recent CT results with the patient which showed no acute pathology, no suspicious pulmonary nodules, no thoracic lymphadenopathy in the chest, and no acute pathology, and no mass or lymphadenopathy in the abdomen and pelvis. Ms. Patel received the 2nd COVID vaccine in January, and reports experiencing hot flashes since that time. I believe that this might be due to the Lynparza. Ms. Patel also complains of leg cramps that onset at night. I recommend taking multivitamins daily, as well as eating a diet rich in Potassium. Ms. Patel will continue taking Lynparza until the last day in May. Plan to RTC on June 25, [address], CBC, and CA [address] results show no new evidence of disease, we will discuss stopping her PARP. We will discuss the cancer surveillance timeline at the next visit. 07/04/2021 Stop lynparza. Ok to stop protonix in 2-3 weeks after stopping lynparza. I recommend leaving port for one year. Discuss in one year. Discussed no scans needed unless concerning s/s of recurrence. CA 125 prior to each office visit. 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 Discussed she may have some improvement but hard to say at this point. Recommend KN95 with omicron variant. Discussed covid testing guidelines. Follow up in 3 months 10/01/2021 Impression: History of Ovarian Cancer, most recently had completed Olaparib . CA 125 is 10, stable, but she is worried because it has increased by 1 point. Discussed the significance of small changes in CA 125 and anxiety which often accompany's this. Plan: CA 125 and clinical examination in December. Vulvar dryness and itching. Will prescribe Lotrisone cream. Said she had this in past and it helped her. She will call office if symptoms of itching, and dryness don't resolve in the next couple of weeks. 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 CA 125 is stable. Some bladder symptoms at times. Intermittent. Discussed pelvic floor PT. Will trial melatonin for insomnia and some assistance with constipation. BMD ordered for osteopenia screening. 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 No clinical evidence of disease. She has been off her PARP for approximately 9 months. Repeat CA 125 in 3 months. If CA 125 value is >15, (the roberto value,) will check CT scan as well. Reviewed signs and symptoms of recurrence and told to call with persisting concerns. Follow up in clinic in June for continued surveillance. Documentation from my notes of previous visit of 12/31/2021 was copied and pasted, documentation hasbeen reviewed and edited as necessary and is current for today. ATTESTATION: By signing my name below, I, Jayla Bridges, attest that this documentation has been prepared under the direction and in the presence of Fang Cote MD. I, Fang Cote MD, agree that the above note, as documented by my scribe, accurately describes my encounter with the patient today. Electronically signed:Chasity Singleton, Fang Cote MD, Physician, March 25, 2022 11:11 AM documented in this encounterSt. [facility] History of Past illness Narrative* Problem Noted Date Diagnosed Date Resolved Date Thrombocytopenia 01/29/2022 07/30/2023 Overview: chronic Last Assessment & Plan: Assessment: chronic, most recent CBC 06/07/2023: Plt 118 Well adult exam 12/13/2015 07/13/2019 Overview: last done: 07/07/2018 Abnormal mammogram, unspecified 10/25/2007 09/18/2014 documented as of this encounter (statuses as of 07/30/2023) [facility] History of Past illness Narrative* Problem Noted Date Diagnosed Date Resolved Date Thrombocytopenia 01/29/2022 07/30/2023 Overview: chronic Last Assessment & Plan: Assessment: chronic, most recent CBC 06/07/2023: Plt 118 Well adult exam 12/13/2015 07/13/2019 Overview: last done: 07/07/2018 Abnormal mammogram, unspecified 10/25/2007 09/18/2014 documented as of this encounter (statuses as of 07/30/2023) [facility] History of Past illness Narrative* Problem Noted Date Diagnosed Date Resolved Date Thrombocytopenia 01/29/2022 07/30/2023 Overview: chronic Last Assessment & Plan: Assessment: chronic, most recent CBC 06/07/2023: Plt 118 Well adult exam 12/13/2015 07/13/2019 Overview: last done: 07/07/2018 Abnormal mammogram, unspecified 10/25/2007 09/18/2014 documented as of this encounter (statuses as of 08/11/2023) [address]11-2022 History of Past illness Narrative* Problem Noted Date Diagnosed Date Resolved Date Thrombocytopenia 01/29/2022 07/30/2023 Overview: chronic Last Assessment & Plan: Assessment: chronic, most recent CBC 06/07/2023: Plt 118 Well adult exam 12/13/2015 07/13/2019 Overview: last done: 07/07/2018 Abnormal mammogram, unspecified 10/25/2007 09/18/2014 documented as of this encounter (statuses as of 08/13/2023) [facility] History of Past illness Narrative* Problem Noted Date Diagnosed Date Resolved Date Thrombocytopenia 01/29/2022 07/30/2023 Overview: chronic Last Assessment & Plan: Assessment: chronic, most recent CBC 06/07/2023: Plt 118 Well adult exam 12/13/2015 07/13/2019 Overview: last done: 07/07/2018 Abnormal mammogram, unspecified 10/25/2007 09/18/2014 documented as of this encounter (statuses as of 08/20/2023) [facility] History of Past illness Narrative* Problem Noted Date Diagnosed Date Resolved Date Thrombocytopenia 01/29/2022 07/30/2023 Overview: chronic Last Assessment & Plan: Assessment: chronic, most recent CBC 06/07/2023: Plt 118 Well adult exam 12/13/2015 07/13/2019 Overview: last done: 07/07/2018 Abnormal mammogram, unspecified 10/25/2007 09/18/2014 documented as of this encounter (statuses as of 08/23/2023) [facility] Instructions* Patient Instructions* Shay Cardoza MD - 01/29/2022 9:43 AM EDT Please get labs and urine test done on or after 07/17/2022 prior to your next visit. documented in this encounterSt. Anthony'[facility]08-11-2022 History of Present illness Narrative* Shay Cardoza MD - 01/29/2022 8:40 AM EDT Chief Complaint Patient presents with: F/U 6 months: HPI Savana Patel is a 71 year old female who presents here today for 6 month follow up. Patient with Hx of HTN, impaired fasting blood sugar, hyperlipidemia, ovarian Ca with mets to the omentum, YESIKA with panic attacks, anemia as well as those reviewed and addressed below and in ROS F/u with oncology has been doing ok. Has a precancerous lesion on her nose that Derm is addressing. Patient has been doing well no issues. Past medical history, appointments, medications, allergies reviewed. Previous Medical History PAST MEDICAL HISTORY Diagnosis Date Actinic keratosis 04/12/2007 DEANDRE positive 07/25/2016 Rheum felt just Arthritis. Arthritis of knee, right 06/16/2012 BRCA2 positive 05/02/2019 [id number] ([id number]) BREAST CANCER UPPER OUTER(Left, DCIS) 11/01/2007 Diagnosed 10/2007 Carcinomatosis (HCC) 10/06/2018 Chemotherapy-induced neuropathy (HCC) 07/13/2019 [place] ANGIOMA///NEVUS, NON-NEOPLASTIC 02/18/2007 Constipation 04/04/2015 Dysmetabolic syndrome X 12/28/2007 Essential hypertension 04/04/2015 GERD without esophagitis 07/24/2020 Hemorrhage of gastrointestinal tract, unspecified History of left mastectomy 05/05/2018 Impaired fasting glucose 11/21/2007 Internal hemorrhoids without mention of complication Leg cramps 01/08/[address] 07/31/2021 DPA is Malignant neoplasm of both ovaries (HCC) 10/26/2018 Mixed hyperlipidemia 04/04/2015 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 Osteoarthritis of multiple joints 07/27/2016 Osteopenia 12/28/2012 Other acne 05/29/2008 Other seborrheic keratosis 02/18/2007 Panic attacks 07/18/2012 SOLAR LENGINES///DYSCHROMIA OTHER 02/18/2007 Trigger ring finger of left hand 07/24/2020 Trigger ring finger of right hand 07/24/2020 Previous Surgical History PAST SURGICAL HISTORY Procedure Laterality Date BX BREAST PERC VACUUM/ROTN 10/26/07 LEFT COLONOSCOPY FLX DX W/COLLJ SPEC WHEN PFRMD 07/20/05 COLONOSCOPY FLX DX W/COLLJ SPEC WHEN PFRMD 05/01/16 normal - 10 year follow up LIG/TRNSXJ FLP TUBE ABDL/VAG APPR UNI/BI Tubal ligation MAST RAD W/PECTORAL MUSCLES AXILLARY LYMPH NODES 11/26 Left PAST SURGICAL HISTORY OF BACK SURGERY PAST SURGICAL HISTORY OF 10/06/2018 Exploratory laparotomy, total abdominal hysterectomy, bilateral salpingooophorectomy, and bladder and posterior culdesac peritoneum resected en bloc, omentectomy PLCVT LOCALZTN CLIP,PERC,DURING BREAST BX 10/26/07 LEFT S PORT-A-CATH [id number] 11/09/2018 TONSILLECTOMY PRIMARY/SECONDARY <AGE 12 Tonsillectomy Family History FAMILY HISTORY Problem Relation Age of Onset Ovarian cancer Mother dx 50s Arthritis Father Cancer Maternal Aunt 7 aunts with breast or ovarian cancer. details unknown Patient Allergies ALLERGIES Allergen Reactions Penicillins Rash Sulfa (Sulfonamide * Unknown Current Medications Current Outpatient Medications on File Prior to Visit Medication Sig atorvastatin (LIPITOR) 10 mg tablet Take 1 tablet by mouth once daily. ramipril (ALTACE) 10 mg capsule Take 1 capsule by mouth once daily. iv contrast (will be provided with radiology test) CT Chest ABD/PEL-Inject, intravenously, once for1 dose.No IV access, insert saline lock prior to the beginning of sedation, infusion, injection of imaging exam. Discontinue saline lock post exam. If Pt. has a central line or IVAD, may access for administration according to line specific nursing protocol. Once exam is complete flush line and de-access according to line specific nursing protocol in the CT contrast administration guidelines link. enteric contrast (will be provided with radiology test) For CT CHESTABD/PEL W IVCON Routine order Administer, As Directed One Time Only, via Oral, Rectal, both Oral and Rectal, Enteric Tube, Stoma orIndwelling Catheter, Enteric Contrast as designated per enteric contrast guidelines iv contrast (will be provided with radiology test) CT Chest ABD/PEL-Inject, intravenously, once for1 dose.No IV access, insert saline lock prior to the beginning of sedation, infusion, injection of imaging exam. Discontinue saline lock post exam. If Pt. has a central line or IVAD, may access for administration according to line specific nursing protocol. Once exam is complete flush line and de-access according to line specific nursing protocol in the CT contrast administration guidelines link. enteric contrast (will be provided with radiology test) For CT CHESTABD/PEL W IVCON Routine order Administer, As Directed One Time Only, via Oral, Rectal, both Oral and Rectal, Enteric Tube, Stoma orIndwelling Catheter, Enteric Contrast as designated per enteric contrast guidelines heparin 100 unit/mL injection NURSING USE ONLY: USE FOR IMPLANTED VASCULAR ACCESS DEVICE (IVAD) FLUSH. AMBULATORY/OUTPATIENT: PLEASE REORDER UPON HOSPITAL DISCHARGE May access implanted vascular access device (IVAD) as needed for treatment. Before de-accessing port, flush with 10-20ml normal saline and follow with 5 mL heparin (100 units/mL) (if no heparin allergy). De-access port on treatment completion. No current facility-administered medications on file prior to visit. Social History Social History Tobacco Use Smoking status: Never Smokeless tobacco: Never Vaping Use Vaping Use: Never used Substance Use Topics Alcohol use: No Drug use: No Review of Symptoms REVIEW OF SYSTEMS GENERAL: No weight loss, malaise or fevers NECK: Negative for lumps, goiter, pain and significant neck swelling RESPIRATORY: Negative for cough, hemoptysis, wheezing, COPD, dyspnea or shortness of breath CARDIOVASCULAR: Negative for chest pain, leg swelling, hypertension, CHF or palpitations GI: No nausea, vomiting, or diarrhea and No heartburn or reflux symptoms : No history of dysuria, no blood PSYCH: Negative for mood disorder and recent psychosocial stressors. Some nights not able to fall asleep. Has been going on for several years but is sporadic. Has not tried anything on her own yet. ENDOCRINE: Negative for cold or heat intolerance, polyuria, polydipsia and goiter. Having hot flashes and seem to be more often. Maybe twice a day. NEURO: No history of headaches, syncope, paralysis, seizures or tremors EXAM: BP 116/70 (BP Site: Left Arm, BP Position: Sitting, BP Cuff Size: Regular Adult) Pulse 60 Resp 16 Wt 60.3 kg (133 lb) BMI 22.13 kg/m Last 5 Encounter Wt Readings: Date: Wt: 01/29/2022 60.3 kg (133 lb) 12/31/2021 61.2 kg (135 lb) 10/01/2021 61.7 kg (136 lb) 07/31/2021 61.7 kg (136 lb) 07/04/2021 62.4 kg (137 lb 9.6 oz) General Appearance: Well appearing, alert, in no acute distress, well-hydrated, well nourished.. Neck: Supple, no adenopathy; thyroid symmetric, normal size, no bruits. Lungs: Lungs clear to auscultation. No wheezing, rhonchi, rales.. Heart: RRR without murmur, gallop, or rubs. No ectopy. Abdomen: Normal abdominal exam, Abdomen soft, non-tender. Bowel sounds normal. No masses, organomegaly. Extremities: No deformities, edema, skin discoloration, . Musculoskeletal: Muscular strength intact, No joint swelling, deformity, or tenderness. Peripheral Pulses: Normal. Neurologic: Gait normal. Sensation to light touch intact.. Health Maintenance List DTAP,TDAP,TD(2 - Td or Tdap) due on 11/29/2020 ADVANCE DIRECTIVE DISCUSSION Never done COVID-19 VACCINE(4 - Booster for Pfizer series) due on 11/12/2021 SHINGRIX VACCINE(2 of 3) due on 07/31/2022 MAMMOGRAM due on 07/04/2022 ANNUAL PCP TEAM CHRONIC DISEASE VISIT due on 07/31/2022 BP CONTROLLED (<130/80) due on 12/31/2022 DIABETES SCREEN due on 01/19/2025 COLORECTAL CANCER SCREENING due on 05/01/2026 LIPID SCREEN due on 01/19/2027 BONE DENSITY Completed HEPATITIS C SCREENING Completed PNEUMOCOCCAL: 65+ Completed INFLUENZA Discontinued DEPRESSION SCREENING Discontinued Data reviewed Component Latest Ref Rng & Units 07/07/2021 01/19/2022 Protein, Total 6.3 - 8.0 g/dL 6.6 7.3 Albumin 3.9 - 4.9 g/dL 4.5 4.6 Calcium 8.5 - 10.2 mg/dL 9.6 9.4 Bilirubin, Total 0.2 - 1.3 mg/dL 0.5 0.8 Alkaline Phosphatase 34 - 123 U/L 87 83 AST 13 - 35 U/L 20 20 Glucose 74 - 99 mg/dL 88 89 BUN 7 - 21 mg/dL 25 (H) 26 (H) Creatinine 0.58 - 0.96 mg/dL 0.76 0.76 Sodium 136 - 144 mmol/L 143 137 Potassium 3.7 - 5.1 mmol/L 4.4 4.3 Chloride 97 - 105 mmol/L 107 (H) 101 CO2 22 - 30 mmol/L 21 (L) 24 Anion Gap 9 - 18 mmol/L 15 12 ALT 7 - 38 U/L 14 11 eGFR- >60 eGFR-All Other Races . >60 eGFR >=60 mL/min/1.73m 83 Total Cholesterol, Nonfasting <200 mg/dL 161 155 Triglycerides, Nonfasting <150 mg/dL 85 96 HDL Cholesterol, Nonfasting >39 mg/dL 48 49 LDL Cholesterol, Nonfasting <100 mg/dL 96 87 Non HDL Cholesterol, Nonfasting <130 mg/dL 113 106 VLDL Cholesterol, Nonfasting <30 mg/dL 17 19 Total Chol/HDL Ratio, Nonfasting <5.10 mg/dL 3.35 3.16 LDL/HDL Ratio, Nonfasting <2.54 mg/dL 2.00 1.78 Hemoglobin A1C 4.3 - 5.6 % 5.5 5.6 Estimated Average Glucose mg/dL 111 114 A/P ASSESSMENT/PLAN: 1. Essential hypertension - ICD9: 401.9, ICD10: I10 (primary diagnosis) - good control - Continue current medication(s) - Recommended regular aerobic exercise. - Recommend home blood pressure monitoring, to bring results in on next visit - Goal of BP <130/80 2. Mixed hyperlipidemia - ICD9: 272.2, ICD10: E78.2 - good control - Continue current medication. - Encouraged following a low fat, low cholesterol diet. - Discussed the benefits of regular aerobic exercise and weight loss. - Encouraged following a low carbohydrate, healthy oil intake diet. - Continue current therapy. 3. Impaired fasting glucose - ICD9: 790.21, ICD10: R73.01 Cont control with life style changes. 4. GERD without esophagitis - ICD9: 530.81, ICD10: K21.9 - controlled withdiet 5. Panic attacks - ICD9: 300.01, ICD10: F41.0 - stable 6. Living will in place - ICD9: V49.89, ICD10: Z78.9 In chart 7. Anemia, unspecified type - ICD9: 285.9, ICD10: D64.9 - recent labs have been normal. 8. Malignant neoplasm of upper-outer quadrant of right breast in female, estrogen receptor positive(HCC) - ICD9: 174.4, V86.0, ICD10: C50.411, Z17.0 - seeing oncology 9. Carcinomatosis (HCC) - ICD9: 199.0, ICD10: C80.0 - as per #8 10. Chemotherapy-induced neuropathy (HCC) - ICD9: 357.6, E933.1, ICD10: G62.0, T45.1X5A - stable 11. Malignant neoplasm of both ovaries (HCC) - ICD9: 183.0, ICD10: C56.3 - as per #8 12. Omental metastasis (HCC) - ICD9: 197.6, ICD10: C78.6 - as per #8 13. Thrombocytopenia (HCC) - ICD9: 287.5, ICD10: D69.6 - chronic and stable. 14. Primary insomnia - ICD9: 307.42, ICD10: F51.01 - discussed options and patient will consider trying melatonin. 15. Hot flashes - ICD9: 782.62, ICD10: R23.2 - discussed SSRI's or trial of Black Cohosh. Patient will trial the latter. Requested Prescriptions Signed Prescriptions Disp Refills atorvastatin (LIPITOR) 10 mg tablet 90 tablet 1 Sig: Take 1 tablet by mouth once daily. ramipril (ALTACE) 10 mg capsule 90 capsule 1 Sig: Take 1 capsule by mouth once daily. F/u 6 months extensive check CMP, Lipid UA, A1c Shay Cardoza MD documented in this encounterSt. [facility]07-13-2022 Instructions* Patient Instructions* Karishma Franz APRN.[facility] - 12/31/2021 11:27 AM EDT BONE MINERAL DENSITY PATIENT INSTRUCTIONS Bone mineral density testing measures the amount of calcium in certain parts of your bones. This information determines how strong your bones are. The test is used to detect osteoporosis, a disease in which the bone's mineral content and density are low, increasing a person's risk of fractures. Thelumbar spine (lower back) and the hip are the skeletal sites usually examined. For the test, remember that: 1. You cannot take this test if you are . 2. Eat a normal diet on the day of the test. 3. Take your medications as you normally would. 4. DO NOT take calcium supplements (such as Tums) for 24 hours before the test. 5. On the day of the test, leave valuables (jewelry or credit cards) at home. 6. The test should be performed prior to oral, rectal or IV contrast studies, or at least 7 days after any of these studies. For the test, you may be asked to wear a hospital gown. You will lie on your back, on a padded table, in a comfortable position. Generally, you can resume your usual activities immediately. documented in this encounterSt. Anthony'[facility]07-13-2022 History of Present illness Narrative* Karishma Franz APRN.CNP - 12/31/2021 10:50 AM EDT [facility] Follow up visit Date of service: 12/31/2021 PROBLEM/CC: Savana Patel presents for follow-up of ovarian cancer. HPI: Ms. 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 Last office visit: 10/01/2021 ONCOLOGY HISTORY: 1) 10/06/2018: Exploratory laparotomy, total abdominal hysterectomy, bilateral salpingooophorectomy,and bladder and posterior culdesac peritoneum resected en bloc, omentectomy 2) 11/11/2018 - 02/03/2019: PACLITAXEL 80 D1,8,15 CARBOPLATIN 6 D1 - Q21D s/p 4 cycles. *neutropenia/thrombocytopenia causing treatment delay. Neulasta OnPro added; switch to Q21D dosing of Taxol with cycles 5 & 6 02/23/2019 - 03/17/2019: PACLITAXEL 135 D1 CARBOPLATIN 6 D1 - Q21D s/p 2 cycles. 3) 06/30/2019 - 06/20/2022: olaparib (LYNPARZA) 150 mg tablet; 300 mg BID. GENETIC TESTIN10/2018: Consultation ordered, patient counseled on testing several times 04/2019: BRACAnalysis with [employer] through [employer] was positive for a deleterious mutation, c.8904del (p.[id number]), in BRCA2. 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 HISTORIES: PAST MEDICAL HISTORY Diagnosis Date Actinic keratosis 04/12/2007 DEANDRE positive 07/25/2016 Rheum felt just Arthritis. Arthritis of knee, right 06/16/2012 BRCA2 positive 05/02/2019 c.8904del (p.[id number]) BREAST CANCER UPPER OUTER(Left, DCIS) 11/01/2007 Diagnosed 10/2007 Carcinomatosis (HCC) 10/06/2018 Chemotherapy-induced neuropathy (HCC) 07/13/2019 B[place] ANGIOMA///NEVUS, NON-NEOPLASTIC 02/18/2007 Constipation 04/04/2015 Dysmetabolic syndrome X 12/28/2007 Essential hypertension 04/04/2015 GERD without esophagitis 07/24/2020 Hemorrhage of gastrointestinal tract, unspecified History of left mastectomy 05/05/2018 Impaired fasting glucose 11/21/2007 Internal hemorrhoids without mention of complication Leg cramps 01/08/[address] 07/31/2021 DPA is Malignant neoplasm of both ovaries (HCC) 10/26/2018 Mixed hyperlipidemia 04/04/2015 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 Osteoarthritis of multiple joints 07/27/2016 Osteopenia 12/28/2012 Other acne 05/29/2008 Other seborrheic keratosis 02/18/2007 Panic attacks 07/18/2012 SOLAR LENGINES///DYSCHROMIA OTHER 02/18/2007 Trigger ring finger of left hand 07/24/2020 Trigger ring finger of right hand 07/24/2020 PAST SURGICAL HISTORY Procedure Laterality Date BX BREAST PERC VACUUM/ROTN 10/26/07 LEFT COLONOSCOPY FLX DX W/COLLJ SPEC WHEN PFRMD 07/20/05 COLONOSCOPY FLX DX W/COLLJ SPEC WHEN PFRMD 05/01/16 normal - 10 year follow up LIG/TRNSXJ FLP TUBE ABDL/VAG APPR UNI/BI Tubal ligation MAST RAD W/PECTORAL MUSCLES AXILLARY LYMPH NODES 11/26 Left PAST SURGICAL HISTORY OF BACK SURGERY PAST SURGICAL HISTORY OF 10/06/2018 Exploratory laparotomy, total abdominal hysterectomy, bilateral salpingooophorectomy, and bladder and posterior culdesac peritoneum resected en bloc, omentectomy PLCMT LOCALZTN CLIP,PERC,DURING BREAST BX 10/26/07 LEFT S PORT-A-CATH [id number] 11/09/2018 TONSILLECTOMY PRIMARY/SECONDARY <AGE 11 Tonsillectomy FAMILY HISTORY Problem Relation Age of Onset Ovarian cancer Mother dx 50s Arthritis Father Cancer Maternal Aunt 7 aunts with breast or ovarian cancer. details unknown SOCIAL HISTORY: Social History Tobacco Use Smoking status: Never Smoker Smokeless tobacco: Never Used Vaping Use Vaping Use: Never used Substance Use Topics Alcohol use: No Drug use: No Marital Status: PAST GYNECOLOGIC HISTORY: OB History T0 L0 SAB0 IAB2 Ectopic0 Multiple0 Live Births0 LMP: No LMP recorded. Patient has had a hysterectomy. HEALTH MAINTENANCE: Last pap: 01/27/2016 negative Last mammogram: 07/04/2021 Last colonoscopy: 05/01/2016 ALLERGIES Allergen Reactions Penicillins Rash Sulfa (Sulfonamide * Unknown ramipril (ALTACE) 10 mg capsule Take 1 capsule by mouth once daily. atorvastatin (LIPITOR) 10 mg tablet Take 1 tablet by mouth once daily. iv contrast (will be provided with radiology test) CT Chest ABD/PEL-Inject, intravenously, once for1 dose.No IV access, insert saline lock prior to the beginning of sedation, infusion, injection of imaging exam. Discontinue saline lock post exam. If Pt. has a central line or IVAD, may access for administration according to line specific nursing protocol. Once exam is complete flush line and de-access according to line specific nursing protocol in the CT contrast administration guidelines link. enteric contrast (will be provided with radiology test) For CT CHESTABD/PEL W IVCON Routine order Administer, As Directed One Time Only, via Oral, Rectal, both Oral and Rectal, Enteric Tube, Stoma orIndwelling Catheter, Enteric Contrast as designated per enteric contrast guidelines iv contrast (will be provided with radiology test) CT Chest ABD/PEL-Inject, intravenously, once for1 dose.No IV access, insert saline lock prior to the beginning of sedation, infusion, injection of imaging exam. Discontinue saline lock post exam. If Pt. has a central line or IVAD, may access for administration according to line specific nursing protocol. Once exam is complete flush line and de-access according to line specific nursing protocol in the CT contrast administration guidelines link. enteric contrast (will be provided with radiology test) For CT CHESTABD/PEL W IVCON Routine order Administer, As Directed One Time Only, via Oral, Rectal, both Oral and Rectal, Enteric Tube, Stoma orIndwelling Catheter, Enteric Contrast as designated per enteric contrast guidelines heparin 100 unit/mL injection NURSING USE ONLY: USE FOR IMPLANTED VASCULAR ACCESS DEVICE (IVAD) FLUSH. AMBULATORY/OUTPATIENT: PLEASE REORDER UPON HOSPITAL DISCHARGE May access implanted vascular access device (IVAD) as needed for treatment. Before de-accessing port, flush with 10-20ml normal saline and follow with 5 mL heparin (100 units/mL) (if no heparin allergy). De-access port on treatment completion. SUBJECTIVE/INTERVAL HISTORY: Savana Patel reports that she feels well. No nausea or vomiting. No shortness of breath, cough, or chest pain. No abdominal pain, nausea, vomiting, diarrhea, or constipation. +Some insomnia. No dysuria, gross hematuria, urinary frequency, urinary urgency. Reports someurinary incontinence with coughing or with a full bladder overnight. She denies having pain . No neuropathy. No swelling in extremities. No rashes, skin lesions, blisters or mouth sores. No headachesor vision changes. No tinnitus or changes in hearing. No fevers or chills. Her ECOG performance status is zero (fully active, able to carry on all pre-disease performance without restriction). OBJECTIVE: VITALS: BP 109/54 Pulse 58 Temp (Src) 97.1 (Temporal) Wt 135 lb (61.2kg) SpO2 100% GENERAL: alert, oriented, pleasant and cooperative. HEENT: Normocephalic, atraumatic, mucus membranes moist and no lesions. NECK: Supple HEART: Regular rate and rhythm, no murmurs. LUNGS: Clear to auscultation bilaterally. Good air exchange. ABDOMEN: Abdomen soft, non-tender, no hepatosplenomegaly. PELVIC: external genitalia are normal and without lesions, uterus and cervix are surgically absent and bimanual exam negative LOWER EXTREMITIES: No pitting edema, no palpable cords and no skin changes RESULTS: CT 06/09/[address] evidence of metastatic disease to the chest, abdomen or pelvis. 07/04/2021 MAMMOGRAM IMPRESSION: BENIGN FINDING There is no mammographic evidence of malignancy. A 1 year screening mammogram is recommended. Kristan gordon/sima:07/04/2021 17:20:43 Wood Type Finisher(s): RT Benigno(R)(M), [facility] letter sent: Normal over 40 Mammogram BI-RADS: 2 Benign finding RESULT: TECHNIQUE: The study was acquired using full field digital technology and interpreted from soft copy. Digital Breast Tomosynthesis (DBT) images were obtained and used to assist in the interpretation of this examination. Current study was also evaluated with a Computer Aided Detection (CAD). Comparison is made to exams dated: 06/27/2020 mammogram, 04/20/2019 mammogram, 02/03/2018 mammogram - [facility], and 01/26/2017 mammogram - [facility]. There are scattered fibroglandular elements in right breast. Prior left mastectomy. Right chest wall port partially obscures the right axilla. No significant masses, calcifications, or other findings are seen in the breast. There has been no significant interval change CA 125 (U/mL) Date Value 12/23/2021 10 11/24/2021 11 10/27/2021 11 09/29/2021 10 09/01/2021 9 07/07/2021 8 06/09/2021 9 05/12/2021 8 04/14/2021 8 02/19/2021 9 12/09/2020 9 10/23/2020 9 09/27/2020 8 08/23/2020 8 07/26/2020 8 06/28/2020 8 03/28/2020 8 02/01/2020 8 01/01/2020 8 10/20/2019 8 09/22/2019 7 08/25/2019 8 07/28/2019 8 07/20/2019 8 07/14/2019 9 07/07/2019 8 06/20/2019 9 03/27/2019 7 09/12/2018 1,153 ASSESSMENT & PLAN: 09/10/2020 - Dr. 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 Interval testing since last visit discussed, CA125 reviewed and within normal limits. Patient is up-to-date with health maintenance includingmammogram, colonoscopy and advanced directives. Reviewed issues of survivorship including sexual health after cancer treatment, mental health and support systems. Importance of cancer surveillance and early detection of recurrence reinforced. 10/28/2020- Heather Lutz NP (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 Advised her value is stable. Last CT scan was in March 2020. Will order CT of the chest abdomen and pelvis for reevaluation while on PARPi therapy. Patient would like to establish with Dr. Cote, will move her appointment with me from 12/[address] Dawson on 12/[address] scans the week before. Continue monthly labs while on PARPi therapy Patient verbalized an understanding and agreed with the plan. Instructed to call if she has any questions or concerns. 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 Patient expressed concern about receiving the COVID vaccine while taking Olaparib. I advised the patient to continue with the COVID vaccine and discussed findings that supported my recommendation with her. Patient is receptive to recommendation. I answered all of the patient's and patient's 's questions and addressed their concerns. Plan to RTC in March [address] before and in June 2021. Continue with monthly CBC, and CA 125 prior to office visit with me in [place]. Patient verbalized an understanding and agreed with the plan. 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 I reviewed the most recent CT results with the patient which showed no acute pathology, no suspicious pulmonary nodules, no thoracic lymphadenopathy in the chest, and no acute pathology, and no mass or lymphadenopathy in the abdomen and pelvis. Ms. Patel received the 2nd COVID vaccine in January, and reports experiencing hot flashes since that time. I believe that this might be due to the Lynparza. Ms. Patel also complains of leg cramps that onset at night. I recommend taking multivitamins daily, as well as eating a diet rich in Potassium. Ms. Ptael will continue taking Lynparza until the last day in May. Plan to RTC on June 25, [address], CBC, and CA [address] results show no new evidence of disease, we will discuss stopping her PARP. We will discuss the cancer surveillance timeline at the next visit. 07/04/2021 Stop lynparza. Ok to stop protonix in 2-3 weeks after stopping lynparza. I recommend leaving port for one year. Discuss in one year. Discussed no scans needed unless concerning s/s of recurrence. CA 125 prior to each office visit. 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 Discussed she may have some improvement but hard to say at this point. Recommend KN95 with omicron variant. Discussed covid testing guidelines. Follow up in 3 months 10/01/2021 Impression: History of Ovarian Cancer, most recently had completed Olaparib . CA 125 is 10, stable, but she is worried because it has increased by 1 point. Discussed the significance of small changes in CA 125 and anxiety which often accompany's this. Plan: CA 125 and clinical examination in December. Vulvar dryness and itching. Will prescribe Lotrisone cream. Said she had this in past and it helped her. She will call office if symptoms of itching, and dryness don't resolve in the next couple of weeks. 12/31/21 Doing well. CA 125 is stable. Some bladder symptoms at times. Intermittent. Discussed pelvic floor PT. Will trial melatonin for insomnia and some assistance with constipation. BMD ordered for osteopenia screening. Karishma Franz APRN.CNP The previous note from Dr. Cote on 10/01/2021 was copied forward and the necessary changes were made above. Karishma Franz APRN.CNP Medical Decision Making: Problems: Moderate: 2+ stable chronic illnesses Data: Unique test result(s) reviewed: 1 Assessment requiring an independent historian(s) Risk: Low: Low risk from testing/treatment Medical Decision Making Level: 3 - Low documented in this encounterSt. [facility] History of Present illness Narrative* RT Anni(R) - 12/31/2021 8:40 AM EDT Radiology Service Progress Note PATIENT NAME: Savana Patel DATE OF SERVICE: December 31, 2021 TIME: 8:38 AM PATIENT IDENTITY VERIFICATION COMPLETED USING TWO (2) IDENTIFIERS: Name and Date of confirmedby patient verbally. FALL SCREENING: Has the patient had 2 falls in the last year or 1 fall with injury or currently using an Ambulatory Assistive Device (Walker, Cane, Wheelchair, Crutches, etc.)? No PATIENT GENDER DATA: Female. status: : No status: NO. PATIENT RELEVANT IMPLANT DATA REVIEWED: Yes POWER PORT RADIOLOGY DEPARTMENT: MR; Exam(s) Completed: Chest: Breast PERIPHERAL IV DATA: Site assessment: Clean,Dry and Intact, Site disposition Discontinued NURSE TO DE ACCESS PT'S PORT SIGNED BY: RT Anni(R) December 31, 2021 8:38 AM documented in this encounterSt. [facility]05-23-[facility]22 Miscellaneous Notes* Telephone Encounter - Gladis Reynoso MA - 11/10/2021 5:31 PM EDT Patient notified and voiced understanding. Gladis Reynoso MA * Telephone Encounter - Shay Cardoza MD - 11/10/2021 4:48 PM EDT I would advise patient to only test if symptomatic. At this time if positive she would not qualify for any Therapies since she would be past the allotted time frame if we take date of exposure as dayone since she has no symptoms to go by. * Telephone Encounter - Peyton Orellana RN - 11/10/2021 1:26 PM EDT Patient reports she was exposed to a person who was covid positive on 11/02/21 (9 days ago). She reports she has no symptoms as of this time. She is fully vaccinated. CDC guidelines were reviewed for vaccinated person. Patient asking if she should get tested due to being immunocompromised, even though it has been 9 days since exposure and she is not having any symptoms? Please advise. Thank you. Peyton Orellana RN documented in this encounterSt. [facility]05-09-[facility] History of Present illness Narrative* Carolyne Sung RN - 10/27/2021 7:24 AM EDT Patient is here for IVAD port flush/blood draw per [facility] [place] protocol. IVAD is located in right upper chest. Site cleansed with Chloraprep IVAD accessed with a #20 gauge 3/4 non-coring Gripper needle Flush with 5cc's Normal Saline. Blood Return: Good. 10 cc's blood aspirated and discarded. Blood drawn for CBC, CMP and Gold top. Flushed with: 20 ml Normal Saline and 5 ml Heparin Lock Flush. Non-coring needle removed. Paper tape applied to puncture site. Site negative for redness, edema or tenderness. Patient tolerated procedure well. documented in this encounterSt. [facility]04-13-[facility]22 History of Present illness Narrative* Fang Cote MD - 10/01/2021 11:10 AM EDT [facility] Follow up visit Date of service: 10/01/2021 PROBLEM/CC: Savana Patel presents for follow-up of ovarian cancer. HPI: Ms. 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 Last office visit: 07/04/2021 ONCOLOGY HISTORY: 1) 10/06/2018: Exploratory laparotomy, total abdominal hysterectomy, bilateral salpingooophorectomy,and bladder and posterior culdesac peritoneum resected en bloc, omentectomy 2) 11/11/2018 - 02/03/2019: PACLITAXEL 80 D1,8,15 CARBOPLATIN 6 D1 - Q21D s/p 4 cycles. *neutropenia/thrombocytopenia causing treatment delay. Neulasta OnPro added; switch to Q21D dosing of Taxol with cycles 5 & 6 02/23/2019 - 03/17/2019: PACLITAXEL 135 D1 CARBOPLATIN 6 D1 - Q21D s/p 2 cycles. 3) 06/30/2019 - Present: olaparib (LYNPARZA) 150 mg tablet; 300 mg BID. GENETIC TESTIN10/2018: Consultation ordered, patient counseled on testing several times 04/2019: BRACAnalysis with [employer] through [employer] was positive for a deleterious mutation, [id number] ([id number]), in BRCA2. 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 HISTORIES: PAST MEDICAL HISTORY Diagnosis Date Actinic keratosis 04/12/2007 DEANDRE positive 07/25/2016 Rheum felt just Arthritis. Arthritis of knee, right 06/16/2012 BRCA2 positive 05/02/2019 c.8904del ([id number]) BREAST CANCER UPPER OUTER(Left, DCIS) 11/01/2007 Diagnosed 10/2007 Carcinomatosis (HCC) 10/06/2018 Chemotherapy-induced neuropathy (HCC) 07/13/2019 [place]ON ANGIOMA///NEVUS, NON-NEOPLASTIC 02/18/2007 Constipation 04/04/2015 Dysmetabolic syndrome X 12/28/2007 Essential hypertension 04/04/2015 GERD without esophagitis 07/24/2020 Hemorrhage of gastrointestinal tract, unspecified History of left mastectomy 05/05/2018 Impaired fasting glucose 11/21/2007 Internal hemorrhoids without mention of complication Leg cramps 01/08/[address] 07/31/2021 DPA is Malignant neoplasm of both ovaries (HCC) 10/26/2018 Mixed hyperlipidemia 04/04/2015 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 Osteoarthritis of multiple joints 07/27/2016 Osteopenia 12/28/2012 Other acne 05/29/2008 Other seborrheic keratosis 02/18/2007 Panic attacks 07/18/2012 SOLAR LENGINES///DYSCHROMIA OTHER 02/18/2007 Trigger ring finger of left hand 07/24/2020 Trigger ring finger of right hand 07/24/2020 PAST SURGICAL HISTORY Procedure Laterality Date BX BREAST PERC VACUUM/ROTN 10/26/07 LEFT COLONOSCOPY FLX DX W/COLLJ SPEC WHEN PFRMD 07/20/05 COLONOSCOPY FLX DX W/COLLJ SPEC WHEN PFRMD 05/01/16 normal - 10 year follow up LIG/TRNSXJ FLP TUBE ABDL/VAG APPR UNI/BI Tubal ligation MAST RAD W/PECTORAL MUSCLES AXILLARY LYMPH NODES 11/26 Left PAST SURGICAL HISTORY OF BACK SURGERY PAST SURGICAL HISTORY OF 10/06/2018 Exploratory laparotomy, total abdominal hysterectomy, bilateral salpingooophorectomy, and bladder and posterior culdesac peritoneum resected en bloc, omentectomy PLCMT LOCALZTN CLIP,PERC,DURING BREAST BX 10/26/07 LEFT S PORT-A-CATH [id number] 11/09/2018 TONSILLECTOMY PRIMARY/SECONDARY <AGE 11 Tonsillectomy FAMILY HISTORY Problem Relation Age of Onset Ovarian cancer Mother dx 50s Arthritis Father Cancer Maternal Aunt 7 aunts with breast or ovarian cancer. details unknown SOCIAL HISTORY: Social History Tobacco Use Smoking status: Never Smoker Smokeless tobacco: Never Used Vaping Use Vaping Use: Never used Substance Use Topics Alcohol use: No Drug use: No Marital Status: PAST GYNECOLOGIC HISTORY: OB History T0 L0 SAB0 IAB2 Ectopic0 Multiple0 Live Births0 LMP: No LMP recorded. Patient has had a hysterectomy. HEALTH MAINTENANCE: Last pap: 01/27/2016 negative Last mammogram: 07/04/2021 Last colonoscopy: 05/01/2016 ALLERGIES Allergen Reactions Penicillins Rash Sulfa (Sulfonamide * Unknown clotrimazole-betamethasone (LOTRISONE) cream Apply 1 application to affected area once daily. Applyto affected area once daily. After about a week, please decrease use to 2-3 times/week and then eventually once a week. ramipril (ALTACE) 10 mg capsule Take 1 capsule by mouth once daily. atorvastatin (LIPITOR) 10 mg tablet Take 1 tablet by mouth once daily. iv contrast (will be provided with radiology test) CT Chest ABD/PEL-Inject, intravenously, once for1 dose.No IV access, insert saline lock prior to the beginning of sedation, infusion, injection of imaging exam. Discontinue saline lock post exam. If Pt. has a central line or IVAD, may access for administration according to line specific nursing protocol. Once exam is complete flush line and de-access according to line specific nursing protocol in the CT contrast administration guidelines link. enteric contrast (will be provided with radiology test) For CT CHESTABD/PEL W IVCON Routine order Administer, As Directed One Time Only, via Oral, Rectal, both Oral and Rectal, Enteric Tube, Stoma orIndwelling Catheter, Enteric Contrast as designated per enteric contrast guidelines iv contrast (will be provided with radiology test) CT Chest ABD/PEL-Inject, intravenously, once for1 dose.No IV access, insert saline lock prior to the beginning of sedation, infusion, injection of imaging exam. Discontinue saline lock post exam. If Pt. has a central line or IVAD, may access for administration according to line specific nursing protocol. Once exam is complete flush line and de-access according to line specific nursing protocol in the CT contrast administration guidelines link. enteric contrast (will be provided with radiology test) For CT CHESTABD/PEL W IVCON Routine order Administer, As Directed One Time Only, via Oral, Rectal, both Oral and Rectal, Enteric Tube, Stoma orIndwelling Catheter, Enteric Contrast as designated per enteric contrast guidelines heparin 100 unit/mL injection NURSING USE ONLY: USE FOR IMPLANTED VASCULAR ACCESS DEVICE (IVAD) FLUSH. AMBULATORY/OUTPATIENT: PLEASE REORDER UPON HOSPITAL DISCHARGE May access implanted vascular access device (IVAD) as needed for treatment. Before de-accessing port, flush with 10-20ml normal saline and follow with 5 mL heparin (100 units/mL) (if no heparin allergy). De-access port on treatment completion. INTERVAL HISTORY: She stopped her Lynparza in June. Since she has been feeling more energetic and sleeping well. Denies any pain. Complains of dryness in the vulva, which she states she has experienced in the past. She was prescribed a steroid creme in which she said worked. No vulvar bleeding. Denies any bowel issues. PHYSICAL EXAM: 10/01/2021 VITALS: BP 115/54 Pulse (!) 59 Temp 36 C (96.8 F) (Temporal) Ht 5' 5 (1.651 m) Wt 136 lb (61.7 kg) SpO2 99% BMI 22.63 kg/m GENERAL: Appears well. SKIN: No rashes or bruising. LUNGS: Clear. HEART: Normal. ABDOMEN: Soft. Non-tender. No hernia. No ascites suspected. No masses felt. PELVIC: Vulva shows mild symetric erythema without ulcerations, cracks, or mandel's. Anal area normal. LYMPH NODES: No enlarged lymph nodes in neck or groin area. LOWER EXTREMITIES: Legs without swelling or edema. Reflexes present. Veneer Sander for exam: [place] RESULTS: CT 06/09/[address] evidence of metastatic disease to the chest, abdomen or pelvis. 07/04/2021 MAMMOGRAM IMPRESSION: BENIGN FINDING There is no mammographic evidence of malignancy. A 1 year screening mammogram is recommended. Kristan gordon/sima:07/04/2021 17:20:43 Wood Type Finisher(s): RT Benigno(R)(M), [facility] letter sent: Normal over 40 Mammogram BI-RADS: 2 Benign finding RESULT: TECHNIQUE: The study was acquired using full field digital technology and interpreted from soft copy. Digital Breast Tomosynthesis (DBT) images were obtained and used to assist in the interpretation of this examination. Current study was also evaluated with a Computer Aided Detection (CAD). Comparison is made to exams dated: 06/27/2020 mammogram, 04/20/2019 mammogram, 02/03/2018 mammogram - [facility], and 01/26/2017 mammogram - [facility]. There are scattered fibroglandular elements in right breast. Prior left mastectomy. Right chest wall port partially obscures the right axilla. No significant masses, calcifications, or other findings are seen in the breast. There has been no significant interval change CA 125 (U/mL) Date Value 09/29/2021 10 09/01/2021 9 07/07/2021 8 06/09/2021 9 05/12/2021 8 04/14/2021 8 02/19/2021 9 12/09/2020 9 10/23/2020 9 09/27/2020 8 08/23/2020 8 07/26/2020 8 06/28/2020 8 03/28/2020 8 02/01/2020 8 01/01/2020 8 10/20/2019 8 09/22/2019 7 08/25/2019 8 07/28/2019 8 07/20/2019 8 07/14/2019 9 07/07/2019 8 06/20/2019 9 03/27/2019 7 09/12/2018 1,153 ASSESSMENT & PLAN: 09/10/2020 - Dr. 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 Interval testing since last visit discussed, CA125 reviewed and within normal limits. Patient is up-to-date with health maintenance includingmammogram, colonoscopy and advanced directives. Reviewed issues of survivorship including sexual health after cancer treatment, mental health and support systems. Importance of cancer surveillance and early detection of recurrence reinforced. 10/28/2020- Heather Lutz NP (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 Advised her value is stable. Last CT scan was in March 2020. Will order CT of the chest abdomen and pelvis for reevaluation while on PARPi therapy. Patient would like to establish with Dr. Cote, will move her appointment with me from 12/[address] Dawson on 12/[address] scans the week before. Continue monthly labs while on PARPi therapy Patient verbalized an understanding and agreed with the plan. Instructed to call if she has any questions or concerns. 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 Patient expressed concern about receiving the COVID vaccine while taking Olaparib. I advised the patient to continue with the COVID vaccine and discussed findings that supported my recommendation with her. Patient is receptive to recommendation. I answered all of the patient's and patient's 's questions and addressed their concerns. Plan to RTC in March [address] before and in June 2021. Continue with monthly CBC, and CA 125 prior to office visit with me in [place]. Patient verbalized an understanding and agreed with the plan. 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 I reviewed the most recent CT results with the patient which showed no acute pathology, no suspicious pulmonary nodules, no thoracic lymphadenopathy in the chest, and no acute pathology, and no mass or lymphadenopathy in the abdomen and pelvis. Ms. Patel received the 2nd COVID vaccine in January, and reports experiencing hot flashes since that time. I believe that this might be due to the Lynparza. Ms. Patel also complains of leg cramps that onset at night. I recommend taking multivitamins daily, as well as eating a diet rich in Potassium. Ms. Patel will continue taking Lynparza until the last day in May. Plan to RTC on June 25, [address], CBC, and CA [address] results show no new evidence of disease, we will discuss stopping her PARP. We will discuss the cancer surveillance timeline at the next visit. 07/04/2021 Stop lynparza. Ok to stop protonix in 2-3 weeks after stopping lynparza. I recommend leaving port for one year. Discuss in one year. Discussed no scans needed unless concerning s/s of recurrence. CA 125 prior to each office visit. 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 Discussed she may have some improvement but hard to say at this point. Recommend KN95 with omicron variant. Discussed covid testing guidelines. Follow up in 3 months 10/01/2021 Impression: History of Ovarian Cancer, most recently had completed Olaparib . CA 125 is 10, stable, but she is worried because it has increased by 1 point. Discussed the significance of small changes in CA 125 and anxiety which often accompany's this. Plan: CA 125 and clinical examination in December. Vulvar dryness and itching. Will prescribe Lotrisone cream. Said she had this in past and it helped her. She will call office if symptoms of itching, and dryness don't resolve in the next couple of weeks. Documentation from my notes of previous visit of Visit date not found was copied and pasted, documentation has been reviewed and edited as necessary and is current for today. .ATTESTATION: By signing my name below, I, Annamarie Hays, attest that this documentation has been prepared under the direction and in the presence of Fang Cote MD. Electronically signed:Annamarie Chasity Hays, October 01, 2021 8:54 PM I agree with the Chief Complaint, ROS, and Past Histories independently gathered by the clinical technical support intern and the remaining scribed note accurately describes my personal service to the patient. [facility] of Past illness Narrative* Problem Noted Date Resolved Date Well adult exam 12/13/2015 07/13/2019 Overview: last done: 07/07/2018 Abnormal mammogram, unspecified 10/25/2007 09/18/2014 documented as of this encounter (statuses as of 09/26/2021) [address]24-2016 History of Past illness Narrative* Problem Noted Date Resolved Date Well adult exam 12/13/2015 07/13/2019 Overview: last done: 07/07/2018 Abnormal mammogram, unspecified 10/25/2007 09/18/2014 documented as of this encounter (statuses as of 09/29/2021) [address]24-2016 History of Past illness Narrative* Problem Noted Date Resolved Date Well adult exam 12/13/2015 07/13/2019 Overview: last done: 07/07/2018 Abnormal mammogram, unspecified 10/25/2007 09/18/2014 documented as of this encounter (statuses as of 10/09/2021) [address]24-2016 History of Past illness Narrative* Problem Noted Date Resolved Date Well adult exam 12/13/2015 07/13/2019 Overview: last done: 07/07/2018 Abnormal mammogram, unspecified 10/25/2007 09/18/2014 documented as of this encounter (statuses as of 10/27/2021) [address]24-2016 History of Past illness Narrative* Problem Noted Date Resolved Date Well adult exam 12/13/2015 07/13/2019 Overview: last done: 07/07/2018 Abnormal mammogram, unspecified 10/25/2007 09/18/2014 documented as of this encounter (statuses as of 11/10/2021) [address]24-2016 History of Past illness Narrative* Problem Noted Date Resolved Date Well adult exam 12/13/2015 07/13/2019 Overview: last done: 07/07/2018 Abnormal mammogram, unspecified 10/25/2007 09/18/2014 documented as of this encounter (statuses as of 11/24/2021) [address]24-2016 History of Past illness Narrative* Problem Noted Date Resolved Date Well adult exam 12/13/2015 07/13/2019 Overview: last done: 07/07/2018 Abnormal mammogram, unspecified 10/25/2007 09/18/2014 documented as of this encounter (statuses as of 12/31/2021) [address]24-2016 History of Past illness Narrative* Problem Noted Date Resolved Date Well adult exam 12/13/2015 07/13/2019 Overview: last done: 07/07/2018 Abnormal mammogram, unspecified 10/25/2007 09/18/2014 documented as of this encounter (statuses as of 01/01/2022) [address]24-2016 History of Past illness Narrative* Problem Noted Date Resolved Date Well adult exam 12/13/2015 07/13/2019 Overview: last done: 07/07/2018 Abnormal mammogram, unspecified 10/25/2007 09/18/2014 documented as of this encounter (statuses as of 01/19/2022) [address]24-2016 History of Past illness Narrative* Problem Noted Date Resolved Date Well adult exam 12/13/2015 07/13/2019 Overview: last done: 07/07/2018 Abnormal mammogram, unspecified 10/25/2007 09/18/2014 documented as of this encounter (statuses as of 01/29/2022) [address]24-2016 History of Past illness Narrative* Problem Noted Date Resolved Date Well adult exam 12/13/2015 07/13/2019 Overview: last done: 07/07/2018 Abnormal mammogram, unspecified 10/25/2007 09/18/2014 documented as of this encounter (statuses as of 02/24/2022) [address]24-2016 History of Past illness Narrative* Problem Noted Date Resolved Date Well adult exam 12/13/2015 07/13/2019 Overview: last done: 07/07/2018 Abnormal mammogram, unspecified 10/25/2007 09/18/2014 documented as of this encounter (statuses as of 03/23/2022) [address]24-2016 History of Past illness Narrative* Problem Noted Date Resolved Date Well adult exam 12/13/2015 07/13/2019 Overview: last done: 07/07/2018 Abnormal mammogram, unspecified 10/25/2007 09/18/2014 documented as of this encounter (statuses as of 03/30/2022) [address]24-2016 History of Past illness Narrative* Problem Noted Date Resolved Date Well adult exam 12/13/2015 07/13/2019 Overview: last done: 07/07/2018 Abnormal mammogram, unspecified 10/25/2007 09/18/2014 documented as of this encounter (statuses as of 04/06/2022) [address]24-2016 History of Past illness Narrative* Problem Noted Date Resolved Date Well adult exam 12/13/2015 07/13/2019 Overview: last done: 07/07/2018 Abnormal mammogram, unspecified 10/25/2007 09/18/2014 documented as of this encounter (statuses as of 04/08/2022) [address]24-2016 History of Past illness Narrative* Problem Noted Date Resolved Date Well adult exam 12/13/2015 07/13/2019 Overview: last done: 07/07/2018 Abnormal mammogram, unspecified 10/25/2007 09/18/2014 documented as of this encounter (statuses as of 04/09/2022) [facility] Narrative* Problem Noted Date Resolved Date Well adult exam 12/13/2015 07/13/2019 Overview: last done: 07/07/2018 Abnormal mammogram, unspecified 10/25/2007 09/18/2014 documented as of this encounter (statuses as of 04/13/2022) [facility] of Past illness Narrative* Problem Noted Date Resolved Date Well adult exam 12/13/2015 07/13/2019 Overview: last done: 07/07/2018 Abnormal mammogram, unspecified 10/25/2007 09/18/2014 documented as of this encounter (statuses as of 04/15/2022) [address]24-2016 History of Past illness Narrative* Problem Noted Date Resolved Date Well adult exam 12/13/2015 07/13/2019 Overview: last done: 07/07/2018 Abnormal mammogram, unspecified 10/25/2007 09/18/2014 documented as of this encounter (statuses as of 04/15/2022) [address]24-2016 History of Past illness Narrative* Problem Noted Date Resolved Date Well adult exam 12/13/2015 07/13/2019 Overview: last done: 07/07/2018 Abnormal mammogram, unspecified 10/25/2007 09/18/2014 documented as of this encounter (statuses as of 04/21/2022) [address]24-2016 History of Past illness Narrative* Problem Noted Date Resolved Date Well adult exam 12/13/2015 07/13/2019 Overview: last done: 07/07/2018 Abnormal mammogram, unspecified 10/25/2007 09/18/2014 documented as of this encounter (statuses as of 04/22/2022) [facility] Narrative* Problem Noted Date Resolved Date Well adult exam 12/13/2015 07/13/2019 Overview: last done: 07/07/2018 Abnormal mammogram, unspecified 10/25/2007 09/18/2014 documented as of this encounter (statuses as of 05/25/2022) [facility] Past illness Narrative* Problem Noted Date Resolved Date Well adult exam 12/13/2015 07/13/2019 Overview: last done: 07/07/2018 Abnormal mammogram, unspecified 10/25/2007 09/18/2014 documented as of this encounter (statuses as of 06/02/2022) [facility] Past illness Narrative* Problem Noted Date Resolved Date Well adult exam 12/13/2015 07/13/2019 Overview: last done: 07/07/2018 Abnormal mammogram, unspecified 10/25/2007 09/18/2014 documented as of this encounter (statuses as of 06/25/2022) [address]24-2016 History of Past illness Narrative* Problem Noted Date Resolved Date Well adult exam 12/13/2015 07/13/2019 Overview: last done: 07/07/2018 Abnormal mammogram, unspecified 10/25/2007 09/18/2014 documented as of this encounter (statuses as of 06/30/2022) [address]24-2016 History of Past illness Narrative* Problem Noted Date Resolved Date Well adult exam 12/13/2015 07/13/2019 Overview: last done: 07/07/2018 Abnormal mammogram, unspecified 10/25/2007 09/18/2014 documented as of this encounter (statuses as of 06/30/2022) [facility] Past illness Narrative* Problem Noted Date Resolved Date Well adult exam 12/13/2015 07/13/2019 Overview: last done: 07/07/2018 Abnormal mammogram, unspecified 10/25/2007 09/18/2014 documented as of this encounter (statuses as of 07/01/2022) [address]24-2016 History of Past illness Narrative* Problem Noted Date Resolved Date Well adult exam 12/13/2015 07/13/2019 Overview: last done: 07/07/2018 Abnormal mammogram, unspecified 10/25/2007 09/18/2014 documented as of this encounter (statuses as of 07/01/2022) [address]24-2016 History of Past illness Narrative* Problem Noted Date Resolved Date Well adult exam 12/13/2015 07/13/2019 Overview: last done: 07/07/2018 Abnormal mammogram, unspecified 10/25/2007 09/18/2014 documented as of this encounter (statuses as of 07/01/2022) [address]24-2016 History of Past illness Narrative* Problem Noted Date Resolved Date Well adult exam 12/13/2015 07/13/2019 Overview: last done: 07/07/2018 Abnormal mammogram, unspecified 10/25/2007 09/18/2014 documented as of this encounter (statuses as of 07/01/2022) [address]24-2016 History of Past illness Narrative* Problem Noted Date Resolved Date Well adult exam 12/13/2015 07/13/2019 Overview: last done: 07/07/2018 Abnormal mammogram, unspecified 10/25/2007 09/18/2014 documented as of this encounter (statuses as of 07/02/2022) [address]24-2016 History of Past illness Narrative* Problem Noted Date Resolved Date Well adult exam 12/13/2015 07/13/2019 Overview: last done: 07/07/2018 Abnormal mammogram, unspecified 10/25/2007 09/18/2014 documented as of this encounter (statuses as of 07/03/2022) [address]24-2016 History of Past illness Narrative* Problem Noted Date Resolved Date Well adult exam 12/13/2015 07/13/2019 Overview: last done: 07/07/2018 Abnormal mammogram, unspecified 10/25/2007 09/18/2014 documented as of this encounter (statuses as of 07/08/2022) [address]24-2016 History of Past illness Narrative* Problem Noted Date Resolved Date Well adult exam 12/13/2015 07/13/2019 Overview: last done: 07/07/2018 Abnormal mammogram, unspecified 10/25/2007 09/18/2014 documented as of this encounter (statuses as of 07/10/2022) [address]24-2016 History of Past illness Narrative* Problem Noted Date Resolved Date Well adult exam 12/13/2015 07/13/2019 Overview: last done: 07/07/2018 Abnormal mammogram, unspecified 10/25/2007 09/18/2014 documented as of this encounter (statuses as of 07/10/2022) [address]24-2016 History of Past illness Narrative* Problem Noted Date Resolved Date Well adult exam 12/13/2015 07/13/2019 Overview: last done: 07/07/2018 Abnormal mammogram, unspecified 10/25/2007 09/18/2014 documented as of this encounter (statuses as of 07/15/2022) [address]24-2016 History of Past illness Narrative* Problem Noted Date Resolved Date Well adult exam 12/13/2015 07/13/2019 Overview: last done: 07/07/2018 Abnormal mammogram, unspecified 10/25/2007 09/18/2014 documented as of this encounter (statuses as of 07/15/2022) [address]24-2016 History of Past illness Narrative* Problem Noted Date Resolved Date Well adult exam 12/13/2015 07/13/2019 Overview: last done: 07/07/2018 Abnormal mammogram, unspecified 10/25/2007 09/18/2014 documented as of this encounter (statuses as of 07/20/2022) [address]24-2016 History of Past illness Narrative* Problem Noted Date Resolved Date Well adult exam 12/13/2015 07/13/2019 Overview: last done: 07/07/2018 Abnormal mammogram, unspecified 10/25/2007 09/18/2014 documented as of this encounter (statuses as of 07/21/2022) [address]24-2016 History of Past illness Narrative* Problem Noted Date Resolved Date Well adult exam 12/13/2015 07/13/2019 Overview: last done: 07/07/2018 Abnormal mammogram, unspecified 10/25/2007 09/18/2014 documented as of this encounter (statuses as of 07/21/2022) [address]24-2016 History of Past illness Narrative* Problem Noted Date Resolved Date Well adult exam 12/13/2015 07/13/2019 Overview: last done: 07/07/2018 Abnormal mammogram, unspecified 10/25/2007 09/18/2014 documented as of this encounter (statuses as of 07/24/2022) [address]24-2016 History of Past illness Narrative* Problem Noted Date Resolved Date Well adult exam 12/13/2015 07/13/2019 Overview: last done: 07/07/2018 Abnormal mammogram, unspecified 10/25/2007 09/18/2014 documented as of this encounter (statuses as of 07/24/2022) [address]24-2016 History of Past illness Narrative* Problem Noted Date Resolved Date Well adult exam 12/13/2015 07/13/2019 Overview: last done: 07/07/2018 Abnormal mammogram, unspecified 10/25/2007 09/18/2014 documented as of this encounter (statuses as of 07/28/2022) [address]24-2016 History of Past illness Narrative* Problem Noted Date Resolved Date Well adult exam 12/13/2015 07/13/2019 Overview: last done: 07/07/2018 Abnormal mammogram, unspecified 10/25/2007 09/18/2014 documented as of this encounter (statuses as of 07/29/2022) [address]24-2016 History of Past illness Narrative* Problem Noted Date Resolved Date Well adult exam 12/13/2015 07/13/2019 Overview: last done: 07/07/2018 Abnormal mammogram, unspecified 10/25/2007 09/18/2014 documented as of this encounter (statuses as of 08/04/2022) [facility] Narrative* Problem Noted Date Resolved Date Well adult exam 12/13/2015 07/13/2019 Overview: last done: 07/07/2018 Abnormal mammogram, unspecified 10/25/2007 09/18/2014 documented as of this encounter (statuses as of 08/05/2022) [address]24-2016 History of Past illness Narrative* Problem Noted Date Resolved Date Well adult exam 12/13/2015 07/13/2019 Overview: last done: 07/07/2018 Abnormal mammogram, unspecified 10/25/2007 09/18/2014 documented as of this encounter (statuses as of 08/06/2022) [address]24-2016 History of Past illness Narrative* Problem Noted Date Resolved Date Well adult exam 12/13/2015 07/13/2019 Overview: last done: 07/07/2018 Abnormal mammogram, unspecified 10/25/2007 09/18/2014 documented as of this encounter (statuses as of 08/10/2022) [address]24-2016 History of Past illness Narrative* Problem Noted Date Resolved Date Well adult exam 12/13/2015 07/13/2019 Overview: last done: 07/07/2018 Abnormal mammogram, unspecified 10/25/2007 09/18/2014 documented as of this encounter (statuses as of 08/11/2022) [facility] Narrative* Problem Noted Date Resolved Date Well adult exam 12/13/2015 07/13/2019 Overview: last done: 07/07/2018 Abnormal mammogram, unspecified 10/25/2007 09/18/2014 documented as of this encounter (statuses as of 08/18/2022) [address]24-2016 History of Past illness Narrative* Problem Noted Date Resolved Date Well adult exam 12/13/2015 07/13/2019 Overview: last done: 07/07/2018 Abnormal mammogram, unspecified 10/25/2007 09/18/2014 documented as of this encounter (statuses as of 08/21/2022) [address]24-2016 History of Past illness Narrative* Problem Noted Date Resolved Date Well adult exam 12/13/2015 07/13/2019 Overview: last done: 07/07/2018 Abnormal mammogram, unspecified 10/25/2007 09/18/2014 documented as of this encounter (statuses as of 08/25/2022) [address]24-2016 History of Past illness Narrative* Problem Noted Date Resolved Date Well adult exam 12/13/2015 07/13/2019 Overview: last done: 07/07/2018 Abnormal mammogram, unspecified 10/25/2007 09/18/2014 documented as of this encounter (statuses as of 08/28/2022) [address]24-2016 History of Past illness Narrative* Problem Noted Date Resolved Date Well adult exam 12/13/2015 07/13/2019 Overview: last done: 07/07/2018 Abnormal mammogram, unspecified 10/25/2007 09/18/2014 documented as of this encounter (statuses as of 08/31/2022) [address]24-2016 History of Past illness Narrative* Problem Noted Date Resolved Date Well adult exam 12/13/2015 07/13/2019 Overview: last done: 07/07/2018 Abnormal mammogram, unspecified 10/25/2007 09/18/2014 documented as of this encounter (statuses as of 08/31/2022) [address]24-2016 History of Past illness Narrative* Problem Noted Date Resolved Date Well adult exam 12/13/2015 07/13/2019 Overview: last done: 07/07/2018 Abnormal mammogram, unspecified 10/25/2007 09/18/2014 documented as of this encounter (statuses as of 09/01/2022) [place] [address]24-2016 History of Past illness Narrative* Problem Noted Date Resolved Date Well adult exam 12/13/2015 07/13/2019 Overview: last done: 07/07/2018 Abnormal mammogram, unspecified 10/25/2007 09/18/2014 documented as of this encounter (statuses as of 09/01/2022) [address]24-2016 History of Past illness Narrative* Problem Noted Date Resolved Date Well adult exam 12/13/2015 07/13/2019 Overview: last done: 07/07/2018 Abnormal mammogram, unspecified 10/25/2007 09/18/2014 documented as of this encounter (statuses as of 09/01/2022) [address]24-2016 History of Past illness Narrative* Problem Noted Date Resolved Date Well adult exam 12/13/2015 07/13/2019 Overview: last done: 07/07/2018 Abnormal mammogram, unspecified 10/25/2007 09/18/2014 documented as of this encounter (statuses as of 09/02/2022) [address]24-2016 History of Past illness Narrative* Problem Noted Date Resolved Date Well adult exam 12/13/2015 07/13/2019 Overview: last done: 07/07/2018 Abnormal mammogram, unspecified 10/25/2007 09/18/2014 documented as of this encounter (statuses as of 09/08/2022) [address]24-2016 History of Past illness Narrative* Problem Noted Date Resolved Date Well adult exam 12/13/2015 07/13/2019 Overview: last done: 07/07/2018 Abnormal mammogram, unspecified 10/25/2007 09/18/2014 documented as of this encounter (statuses as of 09/14/2022) [address]24-2016 History of Past illness Narrative* Problem Noted Date Resolved Date Well adult exam 12/13/2015 07/13/2019 Overview: last done: 07/07/2018 Abnormal mammogram, unspecified 10/25/2007 09/18/2014 documented as of this encounter (statuses as of 09/18/2022) [address]24-2016 History of Past illness Narrative* Problem Noted Date Resolved Date Well adult exam 12/13/2015 07/13/2019 Overview: last done: 07/07/2018 Abnormal mammogram, unspecified 10/25/2007 09/18/2014 documented as of this encounter (statuses as of 09/18/2022) [address]24-2016 History of Past illness Narrative* Problem Noted Date Resolved Date Well adult exam 12/13/2015 07/13/2019 Overview: last done: 07/07/2018 Abnormal mammogram, unspecified 10/25/2007 09/18/2014 documented as of this encounter (statuses as of 09/22/2022) [address]24-2016 History of Past illness Narrative* Problem Noted Date Resolved Date Well adult exam 12/13/2015 07/13/2019 Overview: last done: 07/07/2018 Abnormal mammogram, unspecified 10/25/2007 09/18/2014 documented as of this encounter (statuses as of 10/02/2022) [address]24-2016 History of Past illness Narrative* Problem Noted Date Resolved Date Well adult exam 12/13/2015 07/13/2019 Overview: last done: 07/07/2018 Abnormal mammogram, unspecified 10/25/2007 09/18/2014 documented as of this encounter (statuses as of 10/09/2022) [address]24-2016 History of Past illness Narrative* Problem Noted Date Resolved Date Well adult exam 12/13/2015 07/13/2019 Overview: last done: 07/07/2018 Abnormal mammogram, unspecified 10/25/2007 09/18/2014 documented as of this encounter (statuses as of 10/09/2022) [facility] Narrative* Problem Noted Date Resolved Date Well adult exam 12/13/2015 07/13/2019 Overview: last done: 07/07/2018 Abnormal mammogram, unspecified 10/25/2007 09/18/2014 documented as of this encounter (statuses as of 10/12/2022) [facility] Past illness Narrative* Problem Noted Date Resolved Date Well adult exam 12/13/2015 07/13/2019 Overview: last done: 07/07/2018 Abnormal mammogram, unspecified 10/25/2007 09/18/2014 documented as of this encounter (statuses as of 10/14/2022) [address]24[address]2016 History of Past illness Narrative* Problem Noted Date Resolved Date Well adult exam 12/13/2015 07/13/2019 Overview: last done: 07/07/2018 Abnormal mammogram, unspecified 10/25/2007 09/18/2014 documented as of this encounter (statuses as of 10/30/2022) [address]24[address]2016 History of Past illness Narrative* Problem Noted Date Resolved Date Well adult exam 12/13/2015 07/13/2019 Overview: last done: 07/07/2018 Abnormal mammogram, unspecified 10/25/2007 09/18/2014 documented as of this encounter (statuses as of 11/02/2022) [address]24[address]2016 History of Past illness Narrative* Problem Noted Date Resolved Date Well adult exam 12/13/2015 07/13/2019 Overview: last done: 07/07/2018 Abnormal mammogram, unspecified 10/25/2007 09/18/2014 documented as of this encounter (statuses as of 11/03/2022) [address]24-2016 History of Past illness Narrative* Problem Noted Date Resolved Date Well adult exam 12/13/2015 07/13/2019 Overview: last done: 07/07/2018 Abnormal mammogram, unspecified 10/25/2007 09/18/2014 documented as of this encounter (statuses as of 11/16/2022) [address]24-2016 History of Past illness Narrative* Problem Noted Date Resolved Date Well adult exam 12/13/2015 07/13/2019 Overview: last done: 07/07/2018 Abnormal mammogram, unspecified 10/25/2007 09/18/2014 documented as of this encounter (statuses as of 11/17/2022) [address]24-2016 History of Past illness Narrative* Problem Noted Date Resolved Date Well adult exam 12/13/2015 07/13/2019 Overview: last done: 07/07/2018 Abnormal mammogram, unspecified 10/25/2007 09/18/2014 documented as of this encounter (statuses as of 11/17/2022) [address]24-2016 History of Past illness Narrative* Problem Noted Date Resolved Date Well adult exam 12/13/2015 07/13/2019 Overview: last done: 07/07/2018 Abnormal mammogram, unspecified 10/25/2007 09/18/2014 documented as of this encounter (statuses as of 11/20/2022) [address]24-2016 History of Past illness Narrative* Problem Noted Date Resolved Date Well adult exam 12/13/2015 07/13/2019 Overview: last done: 07/07/2018 Abnormal mammogram, unspecified 10/25/2007 09/18/2014 documented as of this encounter (statuses as of 11/23/2022) [address]24-2016 History of Past illness Narrative* Problem Noted Date Resolved Date Well adult exam 12/13/2015 07/13/2019 Overview: last done: 07/07/2018 Abnormal mammogram, unspecified 10/25/2007 09/18/2014 documented as of this encounter (statuses as of 12/04/2022) [address]24-2016 History of Past illness Narrative* Problem Noted Date Resolved Date Well adult exam 12/13/2015 07/13/2019 Overview: last done: 07/07/2018 Abnormal mammogram, unspecified 10/25/2007 09/18/2014 documented as of this encounter (statuses as of 12/04/2022) [address]24-2016 History of Past illness Narrative* Problem Noted Date Resolved Date Well adult exam 12/13/2015 07/13/2019 Overview: last done: 07/07/2018 Abnormal mammogram, unspecified 10/25/2007 09/18/2014 documented as of this encounter (statuses as of 12/07/2022) [address]24-2016 History of Past illness Narrative* Problem Noted Date Resolved Date Well adult exam 12/13/2015 07/13/2019 Overview: last done: 07/07/2018 Abnormal mammogram, unspecified 10/25/2007 09/18/2014 documented as of this encounter (statuses as of 12/07/2022) [address]24-2016 History of Past illness Narrative* Problem Noted Date Resolved Date Well adult exam 12/13/2015 07/13/2019 Overview: last done: 07/07/2018 Abnormal mammogram, unspecified 10/25/2007 09/18/2014 documented as of this encounter (statuses as of 12/08/2022) [address]24-2016 History of Past illness Narrative* Problem Noted Date Resolved Date Well adult exam 12/13/2015 07/13/2019 Overview: last done: 07/07/2018 Abnormal mammogram, unspecified 10/25/2007 09/18/2014 documented as of this encounter (statuses as of 12/10/2022) [address]24-2016 History of Past illness Narrative* Problem Noted Date Resolved Date Well adult exam 12/13/2015 07/13/2019 Overview: last done: 07/07/2018 Abnormal mammogram, unspecified 10/25/2007 09/18/2014 documented as of this encounter (statuses as of 12/11/2022) [address]24-2016 History of Past illness Narrative* Problem Noted Date Resolved Date Well adult exam 12/13/2015 07/13/2019 Overview: last done: 07/07/2018 Abnormal mammogram, unspecified 10/25/2007 09/18/2014 documented as of this encounter (statuses as of 12/16/2022) [address]24-2016 History of Past illness Narrative* Problem Noted Date Resolved Date Well adult exam 12/13/2015 07/13/2019 Overview: last done: 07/07/2018 Abnormal mammogram, unspecified 10/25/2007 09/18/2014 documented as of this encounter (statuses as of 12/17/2022) [address]24-2016 History of Past illness Narrative* Problem Noted Date Resolved Date Well adult exam 12/13/2015 07/13/2019 Overview: last done: 07/07/2018 Abnormal mammogram, unspecified 10/25/2007 09/18/2014 documented as of this encounter (statuses as of 12/18/2022) [address]24-2016 History of Past illness Narrative* Problem Noted Date Resolved Date Well adult exam 12/13/2015 07/13/2019 Overview: last done: 07/07/2018 Abnormal mammogram, unspecified 10/25/2007 09/18/2014 documented as of this encounter (statuses as of 12/21/2022) [address]24-2016 History of Past illness Narrative* Problem Noted Date Resolved Date Well adult exam 12/13/2015 07/13/2019 Overview: last done: 07/07/2018 Abnormal mammogram, unspecified 10/25/2007 09/18/2014 documented as of this encounter (statuses as of 12/25/2022) [address]24-2016 History of Past illness Narrative* Problem Noted Date Diagnosed Date Resolved Date Well adult exam 12/13/2015 07/13/2019 Overview: last done: 07/07/2018 Abnormal mammogram, unspecified 10/25/2007 09/18/2014 documented as of this encounter (statuses as of 01/01/2023) [address]24-2016 History of Past illness Narrative* Problem Noted Date Diagnosed Date Resolved Date Well adult exam 12/13/2015 07/13/2019 Overview: last done: 07/07/2018 Abnormal mammogram, unspecified 10/25/2007 09/18/2014 documented as of this encounter (statuses as of 01/06/2023) [place] [id number] History of Past illness Narrative* Problem Noted Date Diagnosed Date Resolved Date Well adult exam 12/13/2015 07/13/2019 Overview: last done: 07/07/2018 Abnormal mammogram, unspecified 10/25/2007 09/18/2014 documented as of this encounter (statuses as of 01/14/2023) [facility]-24-2016 History of Past illness Narrative* Problem Noted Date Diagnosed Date Resolved Date Well adult exam 12/13/2015 07/13/2019 Overview: last done: 07/07/2018 Abnormal mammogram, unspecified 10/25/2007 09/18/2014 documented as of this encounter (statuses as of 01/14/2023) [address]24-2016 History of Past illness Narrative* Problem Noted Date Diagnosed Date Resolved Date Well adult exam 12/13/2015 07/13/2019 Overview: last done: 07/07/2018 Abnormal mammogram, unspecified 10/25/2007 09/18/2014 documented as of this encounter (statuses as of 01/15/2023) [address]24-2016 History of Past illness Narrative* Problem Noted Date Diagnosed Date Resolved Date Well adult exam 12/13/2015 07/13/2019 Overview: last done: 07/07/2018 Abnormal mammogram, unspecified 10/25/2007 09/18/2014 documented as of this encounter (statuses as of 01/26/2023) [address]24[address]2016 History of Past illness Narrative* Problem Noted Date Diagnosed Date Resolved Date Well adult exam 12/13/2015 07/13/2019 Overview: last done: 07/07/2018 Abnormal mammogram, unspecified 10/25/2007 09/18/2014 documented as of this encounter (statuses as of 02/05/2023) [place] [id number] History of Past illness Narrative* Problem Noted Date Diagnosed Date Resolved Date Well adult exam 12/13/2015 07/13/2019 Overview: last done: 07/07/2018 Abnormal mammogram, unspecified 10/25/2007 09/18/2014 documented as of this encounter (statuses as of 02/12/2023) [address]24[address]2016 History of Past illness Narrative* Problem Noted Date Diagnosed Date Resolved Date Well adult exam 12/13/2015 07/13/2019 Overview: last done: 07/07/2018 Abnormal mammogram, unspecified 10/25/2007 09/18/2014 documented as of this encounter (statuses as of 02/15/2023) [address]24-2016 History of Past illness Narrative* Problem Noted Date Diagnosed Date Resolved Date Well adult exam 12/13/2015 07/13/2019 Overview: last done: 07/07/2018 Abnormal mammogram, unspecified 10/25/2007 09/18/2014 documented as of this encounter (statuses as of 02/25/2023) [address]24-2016 History of Past illness Narrative* Problem Noted Date Diagnosed Date Resolved Date Well adult exam 12/13/2015 07/13/2019 Overview: last done: 07/07/2018 Abnormal mammogram, unspecified 10/25/2007 09/18/2014 documented as of this encounter (statuses as of 02/25/2023) [address]24-2016 History of Past illness Narrative* Problem Noted Date Diagnosed Date Resolved Date Well adult exam 12/13/2015 07/13/2019 Overview: last done: 07/07/2018 Abnormal mammogram, unspecified 10/25/2007 09/18/2014 documented as of this encounter (statuses as of 03/03/2023) [address]24-2016 History of Past illness Narrative* Problem Noted Date Diagnosed Date Resolved Date Well adult exam 12/13/2015 07/13/2019 Overview: last done: 07/07/2018 Abnormal mammogram, unspecified 10/25/2007 09/18/2014 documented as of this encounter (statuses as of 03/04/2023) [facility]06-24-2016 History of Past illness Narrative* Problem Noted Date Diagnosed Date Resolved Date Well adult exam 12/13/2015 07/13/2019 Overview: last done: 07/07/2018 Abnormal mammogram, unspecified 10/25/2007 09/18/2014 documented as of this encounter (statuses as of 03/05/2023) [facility]24-2016 History of Past illness Narrative* Problem Noted Date Diagnosed Date Resolved Date Well adult exam 12/13/2015 07/13/2019 Overview: last done: 07/07/2018 Abnormal mammogram, unspecified 10/25/2007 09/18/2014 documented as of this encounter (statuses as of 03/12/2023) [address]24[address]2016 History of Past illness Narrative* Problem Noted Date Diagnosed Date Resolved Date Well adult exam 12/13/2015 07/13/2019 Overview: last done: 07/07/2018 Abnormal mammogram, unspecified 10/25/2007 09/18/2014 documented as of this encounter (statuses as of 03/12/2023) [facility]24-2016 History of Past illness Narrative* Problem Noted Date Diagnosed Date Resolved Date Well adult exam 12/13/2015 07/13/2019 Overview: last done: 07/07/2018 Abnormal mammogram, unspecified 10/25/2007 09/18/2014 documented as of this encounter (statuses as of 04/09/2023) [facility]24-2016 History of Past illness Narrative* Problem Noted Date Diagnosed Date Resolved Date Well adult exam 12/13/2015 07/13/2019 Overview: last done: 07/07/2018 Abnormal mammogram, unspecified 10/25/2007 09/18/2014 documented as of this encounter (statuses as of 04/12/2023) [facility]24-2016 History of Past illness Narrative* Problem Noted Date Diagnosed Date Resolved Date Well adult exam 12/13/2015 07/13/2019 Overview: last done: 07/07/2018 Abnormal mammogram, unspecified 10/25/2007 09/18/2014 documented as of this encounter (statuses as of 04/13/2023) [address]24[address]2016 History of Past illness Narrative* Problem Noted Date Diagnosed Date Resolved Date Well adult exam 12/13/2015 07/13/2019 Overview: last done: 07/07/2018 Abnormal mammogram, unspecified 10/25/2007 09/18/2014 documented as of this encounter (statuses as of 04/23/2023) [address]24[address]2016 History of Past illness Narrative* Problem Noted Date Diagnosed Date Resolved Date Well adult exam 12/13/2015 07/13/2019 Overview: last done: 07/07/2018 Abnormal mammogram, unspecified 10/25/2007 09/18/2014 documented as of this encounter (statuses as of 04/23/2023) [address]24[address]2016 History of Past illness Narrative* Problem Noted Date Diagnosed Date Resolved Date Well adult exam 12/13/2015 07/13/2019 Overview: last done: 07/07/2018 Abnormal mammogram, unspecified 10/25/2007 09/18/2014 documented as of this encounter (statuses as of 04/23/2023) [facility]24-2016 History of Past illness Narrative* Problem Noted Date Diagnosed Date Resolved Date Well adult exam 12/13/2015 07/13/2019 Overview: last done: 07/07/2018 Abnormal mammogram, unspecified 10/25/2007 09/18/2014 documented as of this encounter (statuses as of 04/23/2023) [address]24-2016 History of Past illness Narrative* Problem Noted Date Diagnosed Date Resolved Date Well adult exam 12/13/2015 07/13/2019 Overview: last done: 07/07/2018 Abnormal mammogram, unspecified 10/25/2007 09/18/2014 documented as of this encounter (statuses as of 04/23/2023) [address]24[address]2016 History of Past illness Narrative* Problem Noted Date Diagnosed Date Resolved Date Well adult exam 12/13/2015 07/13/2019 Overview: last done: 07/07/2018 Abnormal mammogram, unspecified 10/25/2007 09/18/2014 documented as of this encounter (statuses as of 04/23/2023) [address]24[address]2016 History of Past illness Narrative* Problem Noted Date Diagnosed Date Resolved Date Well adult exam 12/13/2015 07/13/2019 Overview: last done: 07/07/2018 Abnormal mammogram, unspecified 10/25/2007 09/18/2014 documented as of this encounter (statuses as of 04/23/2023) [address]24[address]2016 History of Past illness Narrative* Problem Noted Date Diagnosed Date Resolved Date Well adult exam 12/13/2015 07/13/2019 Overview: last done: 07/07/2018 Abnormal mammogram, unspecified 10/25/2007 09/18/2014 documented as of this encounter (statuses as of 04/23/2023) [address]24[address]2016 History of Past illness Narrative* Problem Noted Date Diagnosed Date Resolved Date Well adult exam 12/13/2015 07/13/2019 Overview: last done: 07/07/2018 Abnormal mammogram, unspecified 10/25/2007 09/18/2014 documented as of this encounter (statuses as of 04/23/2023) [address]24[address]2016 History of Past illness Narrative* Problem Noted Date Diagnosed Date Resolved Date Well adult exam 12/13/2015 07/13/2019 Overview: last done: 07/07/2018 Abnormal mammogram, unspecified 10/25/2007 09/18/2014 documented as of this encounter (statuses as of 04/23/2023) [facility]24-2016 History of Past illness Narrative* Problem Noted Date Diagnosed Date Resolved Date Well adult exam 12/13/2015 07/13/2019 Overview: last done: 07/07/2018 Abnormal mammogram, unspecified 10/25/2007 09/18/2014 documented as of this encounter (statuses as of 05/07/2023) [facility]24-2016 History of Past illness Narrative* Problem Noted Date Diagnosed Date Resolved Date Well adult exam 12/13/2015 07/13/2019 Overview: last done: 07/07/2018 Abnormal mammogram, unspecified 10/25/2007 09/18/2014 documented as of this encounter (statuses as of 05/07/2023) [facility]24-[facility] History of Past illness Narrative* Problem Noted Date Diagnosed Date Resolved Date Well adult exam 12/13/2015 07/13/2019 Overview: last done: 07/07/2018 Abnormal mammogram, unspecified 10/25/2007 09/18/2014 documented as of this encounter (statuses as of 05/10/2023) [address]24[address]2016 History of Past illness Narrative* Problem Noted Date Diagnosed Date Resolved Date Well adult exam 12/13/2015 07/13/2019 Overview: last done: 07/07/2018 Abnormal mammogram, unspecified 10/25/2007 09/18/2014 documented as of this encounter (statuses as of 05/12/2023) [place] [id number] History of Past illness Narrative* Problem Noted Date Diagnosed Date Resolved Date Well adult exam 12/13/2015 07/13/2019 Overview: last done: 07/07/2018 Abnormal mammogram, unspecified 10/25/2007 09/18/2014 documented as of this encounter (statuses as of 05/19/2023) [address]24[address]2016 History of Past illness Narrative* Problem Noted Date Diagnosed Date Resolved Date Well adult exam 12/13/2015 07/13/2019 Overview: last done: 07/07/2018 Abnormal mammogram, unspecified 10/25/2007 09/18/2014 documented as of this encounter (statuses as of 05/27/2023) [address]24[address] History of Past illness Narrative* Problem Noted Date Diagnosed Date Resolved Date Well adult exam 12/13/2015 07/13/2019 Overview: last done: 07/07/2018 Abnormal mammogram, unspecified 10/25/2007 09/18/2014 documented as of this encounter (statuses as of 05/28/2023) [address]24[address] History of Past illness Narrative* Problem Noted Date Diagnosed Date Resolved Date Well adult exam 12/13/2015 07/13/2019 Overview: last done: 07/07/2018 Abnormal mammogram, unspecified 10/25/2007 09/18/2014 documented as of this encounter (statuses as of 06/02/2023) [address]24[address]2016 History of Past illness Narrative* Problem Noted Date Diagnosed Date Resolved Date Well adult exam 12/13/2015 07/13/2019 Overview: last done: 07/07/2018 Abnormal mammogram, unspecified 10/25/2007 09/18/2014 documented as of this encounter (statuses as of 06/05/2023) [address]24[address]2016 History of Past illness Narrative* Problem Noted Date Diagnosed Date Resolved Date Well adult exam 12/13/2015 07/13/2019 Overview: last done: 07/07/2018 Abnormal mammogram, unspecified 10/25/2007 09/18/2014 documented as of this encounter (statuses as of 07/12/2023) [address]24[address]2016 History of Past illness Narrative* Problem Noted Date Diagnosed Date Resolved Date Well adult exam 12/13/2015 07/13/2019 Overview: last done: 07/07/2018 Abnormal mammogram, unspecified 10/25/2007 09/18/2014 documented as of this encounter (statuses as of 07/23/2023) [address]24[address]2016 History of Past illness Narrative* Problem Noted Date Diagnosed Date Resolved Date Well adult exam 12/13/2015 07/13/2019 Overview: last done: 07/07/2018 Abnormal mammogram, unspecified 10/25/2007 09/18/2014 documented as of this encounter (statuses as of 07/23/2023) [facility]24-2016 History of Past illness Narrative* Problem Noted Date Diagnosed Date Resolved Date Well adult exam 12/13/2015 07/13/2019 Overview: last done: 07/07/2018 Abnormal mammogram, unspecified 10/25/2007 09/18/2014 documented as of this encounter (statuses as of 07/29/2023) [facility] Malignant neoplasm of both ovaries (HCC) Malignant neoplasm of ovary [facility] Diagnosis Malignant neoplasm of both ovaries (HCC)- Primary Malignant neoplasm of ovary Vulvar itching Pruritus of genital organs Encounter for follow-up surveillance of cancer of female genital tract organ [facility] Diagnosis Malignant neoplasm of both ovaries (HCC)- Primary Malignant neoplasm of ovary [facility] Diagnosis Malignant neoplasm of both ovaries (HCC) Malignant neoplasm of ovary [facility] Diagnosis History of ovarian cancer- Primary Personal history of malignant neoplasm of ovary Osteopenia, unspecified location Unspecified menopausal and perimenopausal disorder Encounter for screening for osteoporosis Special screening for osteoporosis 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 Diagnosis Malignant neoplasm of both ovaries (HCC)- Primary Malignant neoplasm of ovary Essential hypertension Unspecified essential hypertension Mixed hyperlipidemia Impaired fasting glucose [facility] this 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 Thrombocytopenia (HCC) Thrombocytopenia, unspecified Primary insomnia Persistent disorder of initiating or maintaining sleep Hot flashes Symptomatic menopausal or female climacteric states [facility] Malignant neoplasm of both ovaries (HCC)- Primary Malignant neoplasm of ovary [facility] Diagnosis Malignant neoplasm of both ovaries (HCC) Malignant neoplasm of ovary [facility] Diagnosis Malignant neoplasm of both ovaries (HCC)- Primary Malignant neoplasm of ovary Encounter for follow-up surveillance of cancer of female genital tract organ [facility] Diagnosis Sensation of pressure in bladder area- Primary Other specified disorders of bladder Urge incontinence of urine Urge incontinence [facility] Diagnosis Malignant neoplasm of both ovaries (HCC)- Primary Malignant neoplasm of ovary Urge incontinence of urine Urge incontinence Suprapubic pain, acute Abdominal pain, other specified site [facility] Diagnosis Suprapubic pain, acute Abdominal pain, other specified site Malignant neoplasm of both ovaries (HCC) Malignant neoplasm of ovary [facility] Diagnosis Malignant neoplasm of both ovaries (HCC)- Primary Malignant neoplasm of ovary Suprapubic pain, acute Abdominal pain, other specified site [facility] Diagnosis Malignant neoplasm of upper-outer quadrant of right breast in female, estrogen receptor positive (HCC)- Primary [facility] Diagnosis Encounter for follow-up surveillance of cancer of female genital tract organ- Primary BRCA2 gene mutation positive Fallopian tube carcinoma, left (HCC) Suprapubic pain, acute Abdominal pain, other specified site [facility] Diagnosis Malignant neoplasm of upper-outer quadrant of right breast in female, estrogen receptor positive (HCC)- Primary [facility] Diagnosis Fallopian tube carcinoma, left (HCC)- Primary [facility] Diagnosis Fallopian tube carcinoma, left (HCC)- Primary Suprapubic pain, acute Abdominal pain, other specified site [facility] Diagnosis Fallopian tube carcinoma, left (HCC)- Primary Suprapubic pain, acute Abdominal pain, other specified site [facility] Diagnosis Need for vaccination- Primary Need for prophylactic vaccination and inoculation against unspecified single disease [facility] Diagnosis Fallopian tube carcinoma, left (HCC)- Primary [facility] Diagnosis Fallopian tube carcinoma, left (HCC)- Primary BRCA2 gene mutation positive Neoplasm of fallopian tube Neoplasm of unspecified nature of other genitourinary organs Abdominal pain, suprapubic Abdominal pain, other specified site [facility] Diagnosis Fallopian tube carcinoma, left (HCC)- Primary BRCA2 gene mutation positive Encounter for follow-up surveillance of cancer of female genital tract organ Thrombocytopenia (HCC) Thrombocytopenia, unspecified Chemotherapy-induced neuropathy (HCC) Polyneuropathy due to drugs [facility] Diagnosis Fallopian tube carcinoma, left (HCC) [facility] Diagnosis Fallopian tube carcinoma, left (HCC)- Primary BRCA2 gene mutation positive [facility] Diagnosis Vitamin D deficiency- Primary Unspecified vitamin D deficiency Encounter for screening mammogram for malignant neoplasm of breast Other screening mammogram [facility] Diagnosis Encounter for education- Primary Counseling NOS Fallopian tube carcinoma, left (HCC) [facility] Diagnosis Malignant neoplasm of both ovaries (HCC)- Primary Malignant neoplasm of ovary 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 Carcinomatosis (HCC) Disseminated malignant neoplasm [facility] Diagnosis Malignant neoplasm of both ovaries (HCC)- Primary Malignant neoplasm of ovary 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 Carcinomatosis (HCC) Disseminated malignant neoplasm [facility] Diagnosis Carcinomatosis (HCC) Disseminated malignant neoplasm Malignant neoplasm of both ovaries (HCC) Malignant neoplasm of ovary [facility] Carcinomatosis (HCC)- Primary Disseminated malignant neoplasm Malignant neoplasm of both ovaries (HCC) Malignant neoplasm of ovary [facility] Diagnosis Malignant neoplasm of both ovaries (HCC)- Primary Malignant neoplasm of ovary Essential hypertension Unspecified essential hypertension Mixed hyperlipidemia Impaired fasting glucose [facility] Diagnosis Malignant neoplasm of both ovaries (HCC)- Primary Malignant neoplasm of ovary 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 [facility] Diagnosis Malignant neoplasm of both ovaries (HCC)- Primary Malignant neoplasm of ovary 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 Carcinomatosis (HCC) Disseminated malignant neoplasm [facility] Diagnosis Malignant neoplasm of both ovaries (HCC)- Primary Malignant neoplasm of ovary [facility] Diagnosis Medicare annual wellness visit, subsequent- Primary Routine general medical examination at a health care facility Essential hypertension Unspecified essential hypertension Mixed hyperlipidemia GERD without esophagitis Esophageal reflux Impaired fasting glucose Panic attacks Panic disorder without agoraphobia Malignant neoplasm of upper-outer quadrant of right breast in female, estrogen receptor positive (HCC) Malignant neoplasm of both ovaries (HCC) Malignant neoplasm of ovary Carcinomatosis (HCC) 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 Anemia, unspecified type Chemotherapy-induced neuropathy (HCC) Polyneuropathy due to drugs Thrombocytopenia (HCC) Thrombocytopenia, unspecified Primary insomnia Persistent disorder of initiating or maintaining sleep Advance directive discussed with patient Other specified counseling [facility] Diagnosis Malignant neoplasm of both ovaries (HCC) Malignant neoplasm of ovary [facility] Diagnosis Malignant neoplasm of both ovaries (HCC)- Primary Malignant neoplasm of ovary [facility] Diagnosis Fallopian tube carcinoma, left (HCC)- Primary BRCA2 gene mutation positive Encounter for follow-up surveillance of cancer of female genital tract organ Chemotherapy-induced neuropathy (HCC) Polyneuropathy due to drugs Urge incontinence of urine Urge incontinence [facility] Diagnosis Malignant neoplasm of both ovaries (HCC)- Primary Malignant neoplasm of ovary 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 Carcinomatosis (HCC) Disseminated malignant neoplasm [facility] Diagnosis Fallopian tube carcinoma, left (HCC)- Primary BRCA2 gene mutation positive Chemotherapy-induced neuropathy (HCC) Polyneuropathy due to drugs [facility] Diagnosis Malignant neoplasm of both ovaries (HCC)- Primary Malignant neoplasm of ovary Acute pain of both knees [facility] Diagnosis Malignant neoplasm of both ovaries (HCC)- Primary Malignant neoplasm of ovary 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 [facility] Diagnosis Malignant neoplasm of both ovaries (HCC)- Primary Malignant neoplasm of ovary [facility] Diagnosis Malignant neoplasm of both ovaries (HCC) Malignant neoplasm of ovary [facility] Diagnosis Malignant neoplasm of both ovaries (HCC)- Primary Malignant neoplasm of ovary Carcinomatosis (HCC) 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 [facility] Diagnosis Malignant neoplasm of both ovaries (HCC)- Primary Malignant neoplasm of ovary 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 [facility] Diagnosis Malignant neoplasm of both ovaries (HCC)- Primary Malignant neoplasm of ovary 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 [facility] Diagnosis Malignant neoplasm of both ovaries (HCC)- Primary Malignant neoplasm of ovary Impaired fasting glucose Essential hypertension Unspecified essential hypertension Mixed hyperlipidemia [facility] Diagnosis Malignant neoplasm of both ovaries (HCC)- Primary Malignant neoplasm of ovary 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 [facility] Diagnosis Bleeding from the nose- Primary Epistaxis Jaw pain Thrombocytopenia (HCC) Thrombocytopenia, unspecified [facility] Diagnosis Bleeding from the nose Epistaxis Thrombocytopenia (HCC) Thrombocytopenia, unspecified [facility] Diagnosis Malignant neoplasm of both ovaries (HCC)- Primary Malignant neoplasm of ovary Carcinomatosis (HCC) Disseminated malignant neoplasm [facility] Diagnosis Malignant neoplasm of both ovaries (HCC)- Primary Malignant neoplasm of ovary Carcinomatosis (HCC) Disseminated malignant neoplasm [facility] Diagnosis Suprapubic pain, acute- Primary Abdominal pain, other specified site Abnormal finding on urinalysis Other nonspecific finding on examination of urine [facility] Diagnosis Suprapubic pain, acute- Primary Abdominal pain, other specified site [facility] Diagnosis Fallopian tube carcinoma, 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 BRCA2 gene mutation positive Chemotherapy-induced fatigue Urge incontinence of urine Urge incontinence [facility] Diagnosis Malignant neoplasm of both ovaries (HCC)- Primary Malignant neoplasm of ovary 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 [facility] Diagnosis Encounter for education- Primary Counseling NOS [facility] Diagnosis Malignant neoplasm of prostate (HCC)- Primary Malignant neoplasm of prostate Malignant neoplasm of both ovaries (HCC) Malignant neoplasm of ovary 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 [facility] Diagnosis Neoplasm of fallopian tube- Primary Neoplasm of unspecified nature of other genitourinary organs BRCA2 gene mutation positive Chemotherapy-induced neuropathy (HCC) Polyneuropathy due to drugs Chemotherapy-induced fatigue [facility] Diagnosis Malignant neoplasm of prostate (HCC)- Primary Malignant neoplasm of prostate Malignant neoplasm of both ovaries (HCC) Malignant neoplasm of ovary [facility] Diagnosis Malignant neoplasm of both ovaries (HCC)- Primary Malignant neoplasm of ovary Carcinomatosis (HCC) 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 [facility] Diagnosis Malignant neoplasm of both ovaries (HCC)- Primary Malignant neoplasm of ovary 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 [facility] Diagnosis Malignant neoplasm of both ovaries (HCC) Malignant neoplasm of ovary [facility] Diagnosis Malignant neoplasm of both ovaries (HCC)- Primary Malignant neoplasm of ovary 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 [facility] Diagnosis Essential hypertension- Primary Unspecified essential hypertension Mixed hyperlipidemia Impaired fasting glucose GERD without esophagitis Esophageal reflux Panic attacks Panic disorder without agoraphobia Anemia, unspecified type Malignant neoplasm of upper-outer quadrant of right breast in female, estrogen receptor positive (HCC) Carcinomatosis (HCC) 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) Malignant neoplasm of ovary Primary insomnia Persistent disorder of initiating or maintaining sleep Thrombocytopenia (HCC) Thrombocytopenia, unspecified Osteoarthritis of multiple joints, unspecified osteoarthritis type [facility] Diagnosis Essential hypertension Unspecified essential hypertension Mixed hyperlipidemia Impaired fasting glucose [facility] Diagnosis Malignant neoplasm of both ovaries (HCC) Malignant neoplasm of ovary [facility] Diagnosis Malignant neoplasm of both ovaries (HCC)- Primary Malignant neoplasm of ovary 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 [facility] Diagnosis Malignant neoplasm of both ovaries (HCC) Malignant neoplasm of ovary [facility] Diagnosis Malignant neoplasm of both ovaries (HCC)- Primary Malignant neoplasm of ovary 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 [facility] Diagnosis Malignant neoplasm of both ovaries (HCC) Malignant neoplasm of ovary Carcinomatosis (HCC) Disseminated malignant neoplasm Neoplasm of lung Neoplasm of unspecified nature of respiratory system [facility] Diagnosis Malignant neoplasm of both ovaries (HCC) Malignant neoplasm of ovary 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 [facility] Diagnosis Malignant neoplasm of both ovaries (HCC) Malignant neoplasm of ovary Carcinomatosis (HCC) Disseminated malignant neoplasm [facility] Diagnosis Fallopian tube carcinoma, left (HCC) Neoplasm of fallopian tube Neoplasm of unspecified nature of other genitourinary organs [facility] Diagnosis Malignant neoplasm of both ovaries (HCC) Malignant neoplasm of ovary [facility] Diagnosis Encounter for screening mammogram for malignant neoplasm of breast Other screening mammogram [facility] Diagnosis Acute pain of both knees [facility] Diagnosis Malignant neoplasm of both ovaries (HCC) Malignant neoplasm of ovary Suprapubic pain, acute Abdominal pain, other specified site [facility] Diagnosis Malignant neoplasm of both ovaries (HCC)- Primary Malignant neoplasm of ovary [facility] Diagnosis Malignant neoplasm of both ovaries (HCC)- Primary Malignant neoplasm of ovary 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) Encounter for monitoring cardiotoxic drug therapy Encounter for therapeutic drug monitoring Thrombocytopenia (HCC) Thrombocytopenia, unspecified Carcinomatosis (HCC) 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) documented [facility] noteNo assessment information availableWGu[facility] Work Phone: Evaluation note* Diagnosis 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)- Primary Malignant neoplasm of fallopian tube BRCA2 gene mutation positive Chemotherapy-induced fatigue Cecal volvulus (HCC) Volvulus Neoplasm of fallopian tube Neoplasm of unspecified nature of other genitourinary organs Cecal volvulus (HCC) Volvulus Preop examination Preoperative examination, unspecified [facility] Diagnosis Malignant neoplasm of both ovaries (HCC)- Primary Malignant neoplasm of ovary 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 [facility] Diagnosis Malignant neoplasm of both ovaries (HCC) Malignant neoplasm of ovary 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 [facility] Diagnosis Malignant neoplasm of both ovaries (HCC)- Primary Malignant neoplasm of ovary Leg swelling Swelling of limb Hypotension due to drugs Other iatrogenic hypotension [facility] Diagnosis Cecal volvulus (HCC)- Primary Volvulus Encounter for postoperative care- Primary Other specified aftercare following surgery 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) Malignant neoplasm of fallopian tube BRCA2 gene mutation positive Cecal volvulus (HCC) Volvulus [facility] Diagnosis Dysmetabolic syndrome X- Primary Dysmetabolic Syndrome X [facility] Diagnosis 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)- Primary Malignant neoplasm of fallopian tube BRCA2 gene mutation positive 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 Encounter for postoperative care Other specified aftercare following surgery [facility] Diagnosis Malignant neoplasm of both ovaries (HCC)- Primary Malignant neoplasm of ovary 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 Impaired fasting glucose Essential hypertension Unspecified essential hypertension Mixed hyperlipidemia [facility]* Diagnosis Medicare annual wellness visit, subsequent- Primary Routine general medical examination at a health care facility Essential hypertension Unspecified essential hypertension Mixed hyperlipidemia Impaired fasting glucose GERD without esophagitis Esophageal reflux Panic attacks Panic disorder without agoraphobia Chemotherapy-induced neuropathy (HCC) Polyneuropathy due to drugs Primary insomnia Persistent disorder of initiating or maintaining sleep 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 Malignant neoplasm of both ovaries (HCC) Malignant neoplasm of ovary Malignant neoplasm of upper-outer quadrant of right breast in female, estrogen receptor positive (HCC) Anemia, unspecified type Carcinoma of fallopian tube, unspecified laterality (HCC) Advance directive discussed with patient Other specified counseling [facility] Diagnosis Anemia, unspecified type- Primary [facility] Diagnosis Anemia, unspecified type 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)- Primary Malignant neoplasm of fallopian tube BRCA2 gene mutation positive [facility] Diagnosis Iron deficiency anemia due to chronic blood loss Iron deficiency anemia secondary to blood loss (chronic) Iron malabsorption Other specified intestinal malabsorption [facility] Diagnosis Vaginal itching- Primary Pruritus of genital organs [facility] Diagnosis Malignant neoplasm of both ovaries (HCC)- Primary Malignant neoplasm of ovary Carcinomatosis (HCC) Disseminated malignant neoplasm Iron deficiency anemia due to chronic blood loss Iron deficiency anemia secondary to blood loss (chronic) [facility] Diagnosis Iron deficiency anemia due to chronic blood loss- Primary Iron deficiency anemia secondary to blood loss (chronic) Iron malabsorption Other specified intestinal malabsorption [facility] Diagnosis 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)- Primary Malignant neoplasm of fallopian tube Anxiety associated with cancer diagnosis (HCC) BRCA2 gene mutation positive Chemotherapy-induced fatigue [facility] Diagnosis Iron deficiency anemia due to chronic blood loss- Primary Iron deficiency anemia secondary to blood loss (chronic) Iron malabsorption Other specified intestinal malabsorption [facility] Diagnosis Iron deficiency anemia due to chronic blood loss- Primary Iron deficiency anemia secondary to blood loss (chronic) Iron malabsorption Other specified intestinal malabsorption [facility] Diagnosis Iron deficiency anemia due to chronic blood loss- Primary Iron deficiency anemia secondary to blood loss (chronic) 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) [facility] Diagnosis Malignant neoplasm of both ovaries (HCC)- Primary Malignant neoplasm of ovary Iron deficiency anemia due to chronic blood loss Iron deficiency anemia secondary to blood loss (chronic) Iron malabsorption Other specified intestinal malabsorption [facility] Diagnosis Malignant neoplasm of both ovaries (HCC) Malignant neoplasm of ovary Carcinomatosis (HCC) Disseminated malignant neoplasm [facility] Diagnosis Iron deficiency anemia due to chronic blood loss- Primary Iron deficiency anemia secondary to blood loss (chronic) Iron malabsorption Other specified intestinal malabsorption Malignant neoplasm of both ovaries (HCC) Malignant neoplasm of ovary 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 [facility] Diagnosis Malignant neoplasm of both ovaries (HCC)- Primary Malignant neoplasm of ovary [facility] Diagnosis Encounter for education- Primary Counseling NOS Malignant neoplasm of both ovaries (HCC) Malignant neoplasm of ovary [facility] Diagnosis Malignant neoplasm of both ovaries (HCC)- Primary Malignant neoplasm of ovary 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 [facility] Diagnosis Malignant neoplasm of both ovaries (HCC) Malignant neoplasm of ovary 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 [facility] Diagnosis Malignant neoplasm of both ovaries (HCC)- Primary Malignant neoplasm of ovary Carcinomatosis (HCC) Disseminated malignant neoplasm Iron deficiency anemia due to chronic blood loss Iron deficiency anemia secondary to blood loss (chronic) Essential hypertension Unspecified essential hypertension Thrombocytopenia (HCC) Thrombocytopenia, unspecified Chemotherapy-induced neuropathy (HCC) Polyneuropathy due to drugs Keratitis Unspecified keratitis [facility] Diagnosis Carcinomatosis (HCC)- Primary Disseminated malignant neoplasm Malignant neoplasm of both ovaries (HCC) Malignant neoplasm of ovary 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) [facility] Diagnosis Malignant neoplasm of both ovaries (HCC)- Primary Malignant neoplasm of ovary 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 [facility] Diagnosis Malignant neoplasm of both ovaries (HCC)- Primary Malignant neoplasm of ovary 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 [facility] Diagnosis Carcinomatosis (HCC)- Primary Disseminated malignant neoplasm Malignant neoplasm of both ovaries (HCC) Malignant neoplasm of ovary 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) [facility] Diagnosis Malignant neoplasm of both ovaries (HCC)- Primary Malignant neoplasm of ovary [facility] Diagnosis Malignant neoplasm of both ovaries (HCC) Malignant neoplasm of ovary 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 [facility] Diagnosis Malignant neoplasm of both ovaries (HCC) Malignant neoplasm of ovary 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 documented in this encounter [facility] Malignant neoplasm of both ovaries (HCC)- Primary Malignant neoplasm of ovary 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 Iron deficiency anemia due to chronic blood loss Iron deficiency anemia secondary to blood loss (chronic) Essential hypertension Unspecified essential hypertension Thrombocytopenia (HCC) Thrombocytopenia, unspecified Chemotherapy-induced neuropathy (HCC) Polyneuropathy due to drugs Keratitis Unspecified keratitis [facility] Diagnosis Carcinomatosis (HCC)- Primary Disseminated malignant neoplasm Malignant neoplasm of both ovaries (HCC) Malignant neoplasm of ovary 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) [facility] Diagnosis BRCA2 gene mutation positive- Primary Chemotherapy-induced neuropathy (HCC) Polyneuropathy due to drugs Chemotherapy-induced fatigue Neoplasm of fallopian tube Neoplasm of unspecified nature of other genitourinary organs [facility] Diagnosis Pneumonitis- Primary Pneumonia, organism unspecified Carcinoma of fallopian tube, 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) Pneumonitis Pneumonia, organism unspecified Carcinoma of fallopian tube, 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) [facility] Diagnosis Pneumonitis Pneumonia, organism unspecified Carcinoma of fallopian tube, 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) [facility] Diagnosis Malignant neoplasm of both ovaries (HCC) Malignant neoplasm of ovary 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 [facility] Diagnosis Malignant neoplasm of both ovaries (HCC)- Primary Malignant neoplasm of ovary 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 Pneumonitis Pneumonia, organism unspecified [facility] Diagnosis Malignant neoplasm of both ovaries (HCC)- Primary Malignant neoplasm of ovary [facility] Diagnosis Malignant neoplasm of both ovaries (HCC)- Primary Malignant neoplasm of ovary 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 Essential hypertension Unspecified essential hypertension Carcinomatosis (HCC) Disseminated malignant neoplasm Keratitis Unspecified keratitis [facility] Diagnosis Malignant neoplasm of both ovaries (HCC) Malignant neoplasm of ovary 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 Diagnosis Pre-operative examination- Primary Preoperative examination, unspecified Malignant neoplasm of both ovaries (HCC) Malignant neoplasm of ovary Essential hypertension Unspecified essential hypertension Mixed hyperlipidemia Anemia, unspecified type Malignant neoplasm of upper-outer quadrant of left female breast, unspecified estrogen receptor status (HCC) Osteoarthritis of multiple joints, unspecified osteoarthritis type Constipation, unspecified constipation type Pre-op evaluation- Primary Preoperative examination, unspecified Essential hypertension Unspecified essential hypertension Mixed hyperlipidemia Malignant neoplasm of both ovaries (HCC) Malignant neoplasm of ovary Anemia, unspecified type Thrombocytopenia (HCC) Thrombocytopenia, unspecified GERD without esophagitis Esophageal reflux Carcinomatosis (HCC)- Primary Disseminated malignant neoplasm Malignant neoplasm of both ovaries (HCC) Malignant neoplasm of ovary 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) [facility] Pre-operative examination- Primary Preoperative examination, unspecified Malignant neoplasm of both ovaries (HCC) Malignant neoplasm of ovary Essential hypertension Unspecified essential hypertension Mixed hyperlipidemia Anemia, unspecified type Malignant neoplasm of upper-outer quadrant of left female breast, unspecified estrogen receptor status (HCC) Osteoarthritis of multiple joints, unspecified osteoarthritis type Constipation, unspecified constipation type Pre-op evaluation- Primary Preoperative examination, unspecified Essential hypertension Unspecified essential hypertension Mixed hyperlipidemia Malignant neoplasm of both ovaries (HCC) Malignant neoplasm of ovary Anemia, unspecified type Thrombocytopenia (HCC) Thrombocytopenia, unspecified GERD without esophagitis Esophageal reflux Malignant neoplasm of both ovaries (HCC) Malignant neoplasm of ovary 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 Pre-operative examination- Primary Preoperative examination, unspecified Malignant neoplasm of both ovaries (HCC) Malignant neoplasm of ovary Essential hypertension Unspecified essential hypertension Mixed hyperlipidemia Anemia, unspecified type Malignant neoplasm of upper-outer quadrant of left female breast, unspecified estrogen receptor status (HCC) Osteoarthritis of multiple joints, unspecified osteoarthritis type Constipation, unspecified constipation type Pre-op evaluation- Primary Preoperative examination, unspecified Essential hypertension Unspecified essential hypertension Mixed hyperlipidemia Malignant neoplasm of both ovaries (HCC) Malignant neoplasm of ovary Anemia, unspecified type Thrombocytopenia (HCC) Thrombocytopenia, unspecified GERD without esophagitis Esophageal reflux 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 Malignant neoplasm of both ovaries (HCC) Malignant neoplasm of ovary Chemotherapy-induced neuropathy (HCC) Polyneuropathy due to drugs [facility] Diagnosis Pre-operative examination- Primary Preoperative examination, unspecified Malignant neoplasm of both ovaries (HCC) Malignant neoplasm of ovary Essential hypertension Unspecified essential hypertension Mixed hyperlipidemia Anemia, unspecified type Malignant neoplasm of upper-outer quadrant of left female breast, unspecified estrogen receptor status (HCC) Osteoarthritis of multiple joints, unspecified osteoarthritis type Constipation, unspecified constipation type Pre-op evaluation- Primary Preoperative examination, unspecified Essential hypertension Unspecified essential hypertension Mixed hyperlipidemia Malignant neoplasm of both ovaries (HCC) Malignant neoplasm of ovary Anemia, unspecified type Thrombocytopenia (HCC) Thrombocytopenia, unspecified GERD without esophagitis Esophageal reflux Essential hypertension- Primary Unspecified essential hypertension Mixed hyperlipidemia Impaired fasting glucose GERD without esophagitis Esophageal reflux Panic attacks Panic disorder without agoraphobia documented in this encounter [facility] [place] note* Diagnosis Pre-operative examination- Primary Preoperative examination, unspecified Malignant neoplasm of both ovaries (HCC) Malignant neoplasm of ovary Essential hypertension Unspecified essential hypertension Mixed hyperlipidemia Anemia, unspecified type Malignant neoplasm of upper-outer quadrant of left female breast, unspecified estrogen receptor status (HCC) Osteoarthritis of multiple joints, unspecified osteoarthritis type Constipation, unspecified constipation type Pre-op evaluation- Primary Preoperative examination, unspecified Essential hypertension Unspecified essential hypertension Mixed hyperlipidemia Malignant neoplasm of both ovaries (HCC) Malignant neoplasm of ovary Anemia, unspecified type Thrombocytopenia (HCC) Thrombocytopenia, unspecified GERD without esophagitis Esophageal reflux Malignant neoplasm of both ovaries (HCC)- Primary Malignant neoplasm of ovary 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 documented in this encounter [facility] [place] note* Diagnosis Pre-operative examination- Primary Preoperative examination, unspecified Malignant neoplasm of both ovaries (HCC) Malignant neoplasm of ovary Essential hypertension Unspecified essential hypertension Mixed hyperlipidemia Anemia, unspecified type Malignant neoplasm of upper-outer quadrant of left female breast, unspecified estrogen receptor status (HCC) Osteoarthritis of multiple joints, unspecified osteoarthritis type Constipation, unspecified constipation type Pre-op evaluation- Primary Preoperative examination, unspecified Essential hypertension Unspecified essential hypertension Mixed hyperlipidemia Malignant neoplasm of both ovaries (HCC) Malignant neoplasm of ovary Anemia, unspecified type Thrombocytopenia (HCC) Thrombocytopenia, unspecified GERD without esophagitis Esophageal reflux Carcinomatosis (HCC)- Primary Disseminated malignant neoplasm Malignant neoplasm of both ovaries (HCC) Malignant neoplasm of ovary 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 Diagnosis Pre-operative examination- Primary Preoperative examination, unspecified Malignant neoplasm of both ovaries (HCC) Malignant neoplasm of ovary Essential hypertension Unspecified essential hypertension Mixed hyperlipidemia Anemia, unspecified type Malignant neoplasm of upper-outer quadrant of left female breast, unspecified estrogen receptor status (HCC) Osteoarthritis of multiple joints, unspecified osteoarthritis type Constipation, unspecified constipation type Pre-op evaluation- Primary Preoperative examination, unspecified Essential hypertension Unspecified essential hypertension Mixed hyperlipidemia Malignant neoplasm of both ovaries (HCC) Malignant neoplasm of ovary Anemia, unspecified type Thrombocytopenia (HCC) Thrombocytopenia, unspecified GERD without esophagitis Esophageal reflux Carcinomatosis (HCC)- Primary Disseminated malignant neoplasm Malignant neoplasm of both ovaries (HCC) Malignant neoplasm of ovary 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 Diagnosis Pre-operative examination- Primary Preoperative examination, unspecified Malignant neoplasm of both ovaries (HCC) Malignant neoplasm of ovary Essential hypertension Unspecified essential hypertension Mixed hyperlipidemia Anemia, unspecified type Malignant neoplasm of upper-outer quadrant of left female breast, unspecified estrogen receptor status (HCC) Osteoarthritis of multiple joints, unspecified osteoarthritis type Constipation, unspecified constipation type Pre-op evaluation- Primary Preoperative examination, unspecified Essential hypertension Unspecified essential hypertension Mixed hyperlipidemia Malignant neoplasm of both ovaries (HCC) Malignant neoplasm of ovary Anemia, unspecified type Thrombocytopenia (HCC) Thrombocytopenia, unspecified GERD without esophagitis Esophageal reflux Malignant neoplasm of both ovaries (HCC)- Primary Malignant neoplasm of ovary [facility] Diagnosis Pre-operative examination- Primary Preoperative examination, unspecified Malignant neoplasm of both ovaries (HCC) Malignant neoplasm of ovary Essential hypertension Unspecified essential hypertension Mixed hyperlipidemia Anemia, unspecified type Malignant neoplasm of upper-outer quadrant of left female breast, unspecified estrogen receptor status (HCC) Osteoarthritis of multiple joints, unspecified osteoarthritis type Constipation, unspecified constipation type Pre-op evaluation- Primary Preoperative examination, unspecified Essential hypertension Unspecified essential hypertension Mixed hyperlipidemia Malignant neoplasm of both ovaries (HCC) Malignant neoplasm of ovary Anemia, unspecified type Thrombocytopenia (HCC) Thrombocytopenia, unspecified GERD without esophagitis Esophageal reflux 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) Malignant neoplasm of ovary [facility] Diagnosis Pre-operative examination- Primary Preoperative examination, unspecified Malignant neoplasm of both ovaries (HCC) Malignant neoplasm of ovary Essential hypertension Unspecified essential hypertension Mixed hyperlipidemia Anemia, unspecified type Malignant neoplasm of upper-outer quadrant of left female breast, unspecified estrogen receptor status (HCC) Osteoarthritis of multiple joints, unspecified osteoarthritis type Constipation, unspecified constipation type Pre-op evaluation- Primary Preoperative examination, unspecified Essential hypertension Unspecified essential hypertension Mixed hyperlipidemia Malignant neoplasm of both ovaries (HCC) Malignant neoplasm of ovary Anemia, unspecified type Thrombocytopenia (HCC) Thrombocytopenia, unspecified GERD without esophagitis Esophageal reflux 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 Malignant neoplasm of both ovaries (HCC) Malignant neoplasm of ovary Carcinomatosis (HCC) Disseminated malignant neoplasm documented in this encounter [facility] [place] note* Diagnosis Pre-operative examination- Primary Preoperative examination, unspecified Malignant neoplasm of both ovaries (HCC) Malignant neoplasm of ovary Essential hypertension Unspecified essential hypertension Mixed hyperlipidemia Anemia, unspecified type Malignant neoplasm of upper-outer quadrant of left female breast, unspecified estrogen receptor status (HCC) Osteoarthritis of multiple joints, unspecified osteoarthritis type Constipation, unspecified constipation type Pre-op evaluation- Primary Preoperative examination, unspecified Essential hypertension Unspecified essential hypertension Mixed hyperlipidemia Malignant neoplasm of both ovaries (HCC) Malignant neoplasm of ovary Anemia, unspecified type Thrombocytopenia (HCC) Thrombocytopenia, unspecified GERD without esophagitis Esophageal reflux Carcinomatosis (HCC)- Primary Disseminated 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) Malignant neoplasm of ovary documented in this encounter [facility] [place] note* Diagnosis Pre-operative examination- Primary Preoperative examination, unspecified Malignant neoplasm of both ovaries (HCC) Malignant neoplasm of ovary Essential hypertension Unspecified essential hypertension Mixed hyperlipidemia Anemia, unspecified type Malignant neoplasm of upper-outer quadrant of left female breast, unspecified estrogen receptor status (HCC) Osteoarthritis of multiple joints, unspecified osteoarthritis type Constipation, unspecified constipation type Pre-op evaluation- Primary Preoperative examination, unspecified Essential hypertension Unspecified essential hypertension Mixed hyperlipidemia Malignant neoplasm of both ovaries (HCC) Malignant neoplasm of ovary Anemia, unspecified type Thrombocytopenia (HCC) Thrombocytopenia, unspecified GERD without esophagitis Esophageal reflux Malignant neoplasm of both ovaries (HCC)- Primary Malignant neoplasm of ovary Carcinomatosis (HCC) 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 Diagnosis Pre-operative examination- Primary Preoperative examination, unspecified Malignant neoplasm of both ovaries (HCC) Malignant neoplasm of ovary Essential hypertension Unspecified essential hypertension Mixed hyperlipidemia Anemia, unspecified type Malignant neoplasm of upper-outer quadrant of left female breast, unspecified estrogen receptor status (HCC) Osteoarthritis of multiple joints, unspecified osteoarthritis type Constipation, unspecified constipation type Pre-op evaluation- Primary Preoperative examination, unspecified Essential hypertension Unspecified essential hypertension Mixed hyperlipidemia Malignant neoplasm of both ovaries (HCC) Malignant neoplasm of ovary Anemia, unspecified type Thrombocytopenia (HCC) Thrombocytopenia, unspecified GERD without esophagitis Esophageal reflux Malignant neoplasm of both ovaries (HCC)- Primary Malignant neoplasm of ovary 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 documented in this encounter [facility] [place] note* Diagnosis Pre-operative examination- Primary Preoperative examination, unspecified Malignant neoplasm of both ovaries (HCC) Malignant neoplasm of ovary Essential hypertension Unspecified essential hypertension Mixed hyperlipidemia Anemia, unspecified type Malignant neoplasm of upper-outer quadrant of left female breast, unspecified estrogen receptor status (HCC) Osteoarthritis of multiple joints, unspecified osteoarthritis type Constipation, unspecified constipation type Pre-op evaluation- Primary Preoperative examination, unspecified Essential hypertension Unspecified essential hypertension Mixed hyperlipidemia Malignant neoplasm of both ovaries (HCC) Malignant neoplasm of ovary Anemia, unspecified type Thrombocytopenia (HCC) Thrombocytopenia, unspecified GERD without esophagitis Esophageal reflux Carcinomatosis (HCC)- Primary Disseminated malignant neoplasm Malignant neoplasm of both ovaries (HCC) Malignant neoplasm of ovary 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) documented in this encounter [facility] [place] note* Diagnosis Pre-operative examination- Primary Preoperative examination, unspecified Malignant neoplasm of both ovaries (HCC) Malignant neoplasm of ovary Essential hypertension Unspecified essential hypertension Mixed hyperlipidemia Anemia, unspecified type Malignant neoplasm of upper-outer quadrant of left female breast, unspecified estrogen receptor status (HCC) Osteoarthritis of multiple joints, unspecified osteoarthritis type Constipation, unspecified constipation type Pre-op evaluation- Primary Preoperative examination, unspecified Essential hypertension Unspecified essential hypertension Mixed hyperlipidemia Malignant neoplasm of both ovaries (HCC) Malignant neoplasm of ovary Anemia, unspecified type Thrombocytopenia (HCC) Thrombocytopenia, unspecified GERD without esophagitis Esophageal reflux Carcinomatosis (HCC)- Primary Disseminated malignant neoplasm Malignant neoplasm of both ovaries (HCC) Malignant neoplasm of ovary 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 Diagnosis Pre-operative examination- Primary Preoperative examination, unspecified Malignant neoplasm of both ovaries (HCC) Malignant neoplasm of ovary Essential hypertension Unspecified essential hypertension Mixed hyperlipidemia Anemia, unspecified type Malignant neoplasm of upper-outer quadrant of left female breast, unspecified estrogen receptor status (HCC) Osteoarthritis of multiple joints, unspecified osteoarthritis type Constipation, unspecified constipation type Pre-op evaluation- Primary Preoperative examination, unspecified Essential hypertension Unspecified essential hypertension Mixed hyperlipidemia Malignant neoplasm of both ovaries (HCC) Malignant neoplasm of ovary Anemia, unspecified type Thrombocytopenia (HCC) Thrombocytopenia, unspecified GERD without esophagitis Esophageal reflux Malignant neoplasm of both ovaries (HCC) Malignant neoplasm of ovary 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 [facility] Diagnosis Pre-operative examination- Primary Preoperative examination, unspecified Malignant neoplasm of both ovaries (HCC) Malignant neoplasm of ovary Essential hypertension Unspecified essential hypertension Mixed hyperlipidemia Anemia, unspecified type Malignant neoplasm of upper-outer quadrant of left female breast, unspecified estrogen receptor status (HCC) Osteoarthritis of multiple joints, unspecified osteoarthritis type Constipation, unspecified constipation type Pre-op evaluation- Primary Preoperative examination, unspecified Essential hypertension Unspecified essential hypertension Mixed hyperlipidemia Malignant neoplasm of both ovaries (HCC) Malignant neoplasm of ovary Anemia, unspecified type Thrombocytopenia (HCC) Thrombocytopenia, unspecified GERD without esophagitis Esophageal reflux Malignant neoplasm of both ovaries (HCC) Malignant neoplasm of ovary 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 Diagnosis Pre-operative examination- Primary Preoperative examination, unspecified Malignant neoplasm of both ovaries (HCC) Malignant neoplasm of ovary Essential hypertension Unspecified essential hypertension Mixed hyperlipidemia Anemia, unspecified type Malignant neoplasm of upper-outer quadrant of left female breast, unspecified estrogen receptor status (HCC) Osteoarthritis of multiple joints, unspecified osteoarthritis type Constipation, unspecified constipation type Pre-op evaluation- Primary Preoperative examination, unspecified Essential hypertension Unspecified essential hypertension Mixed hyperlipidemia Malignant neoplasm of both ovaries (HCC) Malignant neoplasm of ovary Anemia, unspecified type Thrombocytopenia (HCC) Thrombocytopenia, unspecified GERD without esophagitis Esophageal reflux Malignant neoplasm of both ovaries (HCC)- Primary Malignant neoplasm of ovary Carcinomatosis (HCC) Disseminated malignant neoplasm [facility] Diagnosis Pre-operative examination- Primary Preoperative examination, unspecified Malignant neoplasm of both ovaries (HCC) Malignant neoplasm of ovary Essential hypertension Unspecified essential hypertension Mixed hyperlipidemia Anemia, unspecified type Malignant neoplasm of upper-outer quadrant of left female breast, unspecified estrogen receptor status (HCC) Osteoarthritis of multiple joints, unspecified osteoarthritis type Constipation, unspecified constipation type Pre-op evaluation- Primary Preoperative examination, unspecified Essential hypertension Unspecified essential hypertension Mixed hyperlipidemia Malignant neoplasm of both ovaries (HCC) Malignant neoplasm of ovary Anemia, unspecified type Thrombocytopenia (HCC) Thrombocytopenia, unspecified GERD without esophagitis Esophageal reflux BRCA2 gene mutation positive- Primary Neoplasm of fallopian tube Neoplasm of unspecified nature of other genitourinary organs Chemotherapy-induced neuropathy (HCC) Polyneuropathy due to drugs [facility] [facility] Diagnosis Pre-operative examination- Primary Preoperative examination, unspecified Malignant neoplasm of both ovaries (HCC) Malignant neoplasm of ovary Essential hypertension Unspecified essential hypertension Mixed hyperlipidemia Anemia, unspecified type Malignant neoplasm of upper-outer quadrant of left female breast, unspecified estrogen receptor status (HCC) Osteoarthritis of multiple joints, unspecified osteoarthritis type Constipation, unspecified constipation type Pre-op evaluation- Primary Preoperative examination, unspecified Essential hypertension Unspecified essential hypertension Mixed hyperlipidemia Malignant neoplasm of both ovaries (HCC) Malignant neoplasm of ovary Anemia, unspecified type Thrombocytopenia (HCC) Thrombocytopenia, unspecified GERD without esophagitis Esophageal reflux Carcinomatosis (HCC)- Primary Disseminated malignant neoplasm Malignant neoplasm of both ovaries (HCC) Malignant neoplasm of ovary 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) [facility] Diagnosis Pre-operative examination- Primary Preoperative examination, unspecified Malignant neoplasm of both ovaries (HCC) Malignant neoplasm of ovary Essential hypertension Unspecified essential hypertension Mixed hyperlipidemia Anemia, unspecified type Malignant neoplasm of upper-outer quadrant of left female breast, unspecified estrogen receptor status (HCC) Osteoarthritis of multiple joints, unspecified osteoarthritis type Constipation, unspecified constipation type Pre-op evaluation- Primary Preoperative examination, unspecified Essential hypertension Unspecified essential hypertension Mixed hyperlipidemia Malignant neoplasm of both ovaries (HCC) Malignant neoplasm of ovary Anemia, unspecified type Thrombocytopenia (HCC) Thrombocytopenia, unspecified GERD without esophagitis Esophageal reflux Malignant neoplasm of both ovaries (HCC) Malignant neoplasm of ovary 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 Diagnosis Pre-operative examination- Primary Preoperative examination, unspecified Malignant neoplasm of both ovaries (HCC) Malignant neoplasm of ovary Essential hypertension Unspecified essential hypertension Mixed hyperlipidemia Anemia, unspecified type Malignant neoplasm of upper-outer quadrant of left female breast, unspecified estrogen receptor status (HCC) Osteoarthritis of multiple joints, unspecified osteoarthritis type Constipation, unspecified constipation type Pre-op evaluation- Primary Preoperative examination, unspecified Essential hypertension Unspecified essential hypertension Mixed hyperlipidemia Malignant neoplasm of both ovaries (HCC) Malignant neoplasm of ovary Anemia, unspecified type Thrombocytopenia (HCC) Thrombocytopenia, unspecified GERD without esophagitis Esophageal reflux Carcinomatosis (HCC)- Primary Disseminated 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) Malignant neoplasm of ovary documented in this encounter [facility] [place] note* Diagnosis Pre-operative examination- Primary Preoperative examination, unspecified Malignant neoplasm of both ovaries (HCC) Malignant neoplasm of ovary Essential hypertension Unspecified essential hypertension Mixed hyperlipidemia Anemia, unspecified type Malignant neoplasm of upper-outer quadrant of left female breast, unspecified estrogen receptor status (HCC) Osteoarthritis of multiple joints, unspecified osteoarthritis type Constipation, unspecified constipation type Pre-op evaluation- Primary Preoperative examination, unspecified Essential hypertension Unspecified essential hypertension Mixed hyperlipidemia Malignant neoplasm of both ovaries (HCC) Malignant neoplasm of ovary Anemia, unspecified type Thrombocytopenia (HCC) Thrombocytopenia, unspecified GERD without esophagitis Esophageal reflux Malignant neoplasm of both ovaries (HCC)- Primary Malignant neoplasm of ovary Carcinomatosis (HCC) Disseminated malignant neoplasm [facility]* Diagnosis Pre-operative examination- Primary Preoperative examination, unspecified Malignant neoplasm of both ovaries (HCC) Malignant neoplasm of ovary Essential hypertension Unspecified essential hypertension Mixed hyperlipidemia Anemia, unspecified type Malignant neoplasm of upper-outer quadrant of left female breast, unspecified estrogen receptor status (HCC) Osteoarthritis of multiple joints, unspecified osteoarthritis type Constipation, unspecified constipation type Pre-op evaluation- Primary Preoperative examination, unspecified Essential hypertension Unspecified essential hypertension Mixed hyperlipidemia Malignant neoplasm of both ovaries (HCC) Malignant neoplasm of ovary Anemia, unspecified type Thrombocytopenia (HCC) Thrombocytopenia, unspecified GERD without esophagitis Esophageal reflux Carcinomatosis (HCC)- Primary Disseminated malignant neoplasm [facility]* Diagnosis Pre-operative examination- Primary Preoperative examination, unspecified Malignant neoplasm of both ovaries (HCC) Malignant neoplasm of ovary Essential hypertension Unspecified essential hypertension Mixed hyperlipidemia Anemia, unspecified type Malignant neoplasm of upper-outer quadrant of left female breast, unspecified estrogen receptor status (HCC) Osteoarthritis of multiple joints, unspecified osteoarthritis type Constipation, unspecified constipation type Pre-op evaluation- Primary Preoperative examination, unspecified Essential hypertension Unspecified essential hypertension Mixed hyperlipidemia Malignant neoplasm of both ovaries (HCC) Malignant neoplasm of ovary Anemia, unspecified type Thrombocytopenia (HCC) Thrombocytopenia, unspecified GERD without esophagitis Esophageal reflux Malignant neoplasm of both ovaries (HCC) Malignant neoplasm of ovary Carcinomatosis (HCC) Disseminated malignant neoplasm documented in this encounter [facility] [place] note* Diagnosis Pre-operative examination- Primary Preoperative examination, unspecified Malignant neoplasm of both ovaries (HCC) Malignant neoplasm of ovary Essential hypertension Unspecified essential hypertension Mixed hyperlipidemia Anemia, unspecified type Malignant neoplasm of upper-outer quadrant of left female breast, unspecified estrogen receptor status (HCC) Osteoarthritis of multiple joints, unspecified osteoarthritis type Constipation, unspecified constipation type Pre-op evaluation- Primary Preoperative examination, unspecified Essential hypertension Unspecified essential hypertension Mixed hyperlipidemia Malignant neoplasm of both ovaries (HCC) Malignant neoplasm of ovary Anemia, unspecified type Thrombocytopenia (HCC) Thrombocytopenia, unspecified GERD without esophagitis Esophageal reflux Carcinomatosis (HCC)- Primary Disseminated malignant neoplasm Malignant neoplasm of both ovaries (HCC) Malignant neoplasm of ovary 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) documented in this encounter [facility] [place] note* Diagnosis Pre-operative examination- Primary Preoperative examination, unspecified Malignant neoplasm of both ovaries (HCC) Malignant neoplasm of ovary Essential hypertension Unspecified essential hypertension Mixed hyperlipidemia Anemia, unspecified type Malignant neoplasm of upper-outer quadrant of left female breast, unspecified estrogen receptor status (HCC) Osteoarthritis of multiple joints, unspecified osteoarthritis type Constipation, unspecified constipation type Pre-op evaluation- Primary Preoperative examination, unspecified Essential hypertension Unspecified essential hypertension Mixed hyperlipidemia Malignant neoplasm of both ovaries (HCC) Malignant neoplasm of ovary Anemia, unspecified type Thrombocytopenia (HCC) Thrombocytopenia, unspecified GERD without esophagitis Esophageal reflux Neoplasm of fallopian tube- Primary Neoplasm of unspecified nature of other genitourinary organs Malignant ascites [facility]* Diagnosis Pre-operative examination- Primary Preoperative examination, unspecified Malignant neoplasm of both ovaries (HCC) Malignant neoplasm of ovary Essential hypertension Unspecified essential hypertension Mixed hyperlipidemia Anemia, unspecified type Malignant neoplasm of upper-outer quadrant of left female breast, unspecified estrogen receptor status (HCC) Osteoarthritis of multiple joints, unspecified osteoarthritis type Constipation, unspecified constipation type Pre-op evaluation- Primary Preoperative examination, unspecified Essential hypertension Unspecified essential hypertension Mixed hyperlipidemia Malignant neoplasm of both ovaries (HCC) Malignant neoplasm of ovary Anemia, unspecified type Thrombocytopenia (HCC) Thrombocytopenia, unspecified GERD without esophagitis Esophageal reflux Malignant ascites Malignant ascites documented [facility]* Diagnosis Pre-operative examination- Primary Preoperative examination, unspecified Malignant neoplasm of both ovaries (HCC) Malignant neoplasm of ovary Essential hypertension Unspecified essential hypertension Mixed hyperlipidemia Anemia, unspecified type Malignant neoplasm of upper-outer quadrant of left female breast, unspecified estrogen receptor status (HCC) Osteoarthritis of multiple joints, unspecified osteoarthritis type Constipation, unspecified constipation type Pre-op evaluation- Primary Preoperative examination, unspecified Essential hypertension Unspecified essential hypertension Mixed hyperlipidemia Malignant neoplasm of both ovaries (HCC) Malignant neoplasm of ovary Anemia, unspecified type Thrombocytopenia (HCC) Thrombocytopenia, unspecified GERD without esophagitis Esophageal reflux Carcinoma of fallopian tube, 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 Diagnosis Pre-operative examination- Primary Preoperative examination, unspecified Malignant neoplasm of both ovaries (HCC) Malignant neoplasm of ovary Essential hypertension Unspecified essential hypertension Mixed hyperlipidemia Anemia, unspecified type Malignant neoplasm of upper-outer quadrant of left female breast, unspecified estrogen receptor status (HCC) Osteoarthritis of multiple joints, unspecified osteoarthritis type Constipation, unspecified constipation type Pre-op evaluation- Primary Preoperative examination, unspecified Essential hypertension Unspecified essential hypertension Mixed hyperlipidemia Malignant neoplasm of both ovaries (HCC) Malignant neoplasm of ovary Anemia, unspecified type Thrombocytopenia (HCC) Thrombocytopenia, unspecified GERD without esophagitis Esophageal reflux Malignant neoplasm of both ovaries (HCC) Malignant neoplasm of ovary 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 Diagnosis Pre-operative examination- Primary Preoperative examination, unspecified Malignant neoplasm of both ovaries (HCC) Malignant neoplasm of ovary Essential hypertension Unspecified essential hypertension Mixed hyperlipidemia Anemia, unspecified type Malignant neoplasm of upper-outer quadrant of left female breast, unspecified estrogen receptor status (HCC) Osteoarthritis of multiple joints, unspecified osteoarthritis type Constipation, unspecified constipation type Pre-op evaluation- Primary Preoperative examination, unspecified Essential hypertension Unspecified essential hypertension Mixed hyperlipidemia Malignant neoplasm of both ovaries (HCC) Malignant neoplasm of ovary Anemia, unspecified type Thrombocytopenia (HCC) Thrombocytopenia, unspecified GERD without esophagitis Esophageal reflux Malignant neoplasm of both ovaries (HCC)- Primary Malignant neoplasm of ovary 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 Other ascites Malignant ascites Malignant ascites [facility]* Diagnosis Pre-operative examination- Primary Preoperative examination, unspecified Malignant neoplasm of both ovaries (HCC) Malignant neoplasm of ovary Essential hypertension Unspecified essential hypertension Mixed hyperlipidemia Anemia, unspecified type Malignant neoplasm of upper-outer quadrant of left female breast, unspecified estrogen receptor status (HCC) Osteoarthritis of multiple joints, unspecified osteoarthritis type Constipation, unspecified constipation type Pre-op evaluation- Primary Preoperative examination, unspecified Essential hypertension Unspecified essential hypertension Mixed hyperlipidemia Malignant neoplasm of both ovaries (HCC) Malignant neoplasm of ovary Anemia, unspecified type Thrombocytopenia (HCC) Thrombocytopenia, unspecified GERD without esophagitis Esophageal reflux Carcinomatosis (HCC)- Primary Disseminated 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 Diagnosis Pre-operative examination- Primary Preoperative examination, unspecified Malignant neoplasm of both ovaries (HCC) Malignant neoplasm of ovary Essential hypertension Unspecified essential hypertension Mixed hyperlipidemia Anemia, unspecified type Malignant neoplasm of upper-outer quadrant of left female breast, unspecified estrogen receptor status (HCC) Osteoarthritis of multiple joints, unspecified osteoarthritis type Constipation, unspecified constipation type Pre-op evaluation- Primary Preoperative examination, unspecified Essential hypertension Unspecified essential hypertension Mixed hyperlipidemia Malignant neoplasm of both ovaries (HCC) Malignant neoplasm of ovary Anemia, unspecified type Thrombocytopenia (HCC) Thrombocytopenia, unspecified GERD without esophagitis Esophageal reflux Malignant ascites- Primary Malignant neoplasm of both ovaries (HCC) Malignant neoplasm of ovary Chemotherapy-induced neuropathy (HCC) Polyneuropathy due to drugs Early satiety Malignant ascites documented [facility]* Diagnosis Pre-operative examination- Primary Preoperative examination, unspecified Malignant neoplasm of both ovaries (HCC) Malignant neoplasm of ovary Essential hypertension Unspecified essential hypertension Mixed hyperlipidemia Anemia, unspecified type Malignant neoplasm of upper-outer quadrant of left female breast, unspecified estrogen receptor status (HCC) Osteoarthritis of multiple joints, unspecified osteoarthritis type Constipation, unspecified constipation type Pre-op evaluation- Primary Preoperative examination, unspecified Essential hypertension Unspecified essential hypertension Mixed hyperlipidemia Malignant neoplasm of both ovaries (HCC) Malignant neoplasm of ovary Anemia, unspecified type Thrombocytopenia (HCC) Thrombocytopenia, unspecified GERD without esophagitis Esophageal reflux Carcinomatosis (HCC)- Primary Disseminated malignant neoplasm Malignant neoplasm of both ovaries (HCC) Malignant neoplasm of ovary 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 documented in this encounter [facility] [place] note* Diagnosis Pre-operative examination- Primary Preoperative examination, unspecified Malignant neoplasm of both ovaries (HCC) Malignant neoplasm of ovary Essential hypertension Unspecified essential hypertension Mixed hyperlipidemia Anemia, unspecified type Malignant neoplasm of upper-outer quadrant of left female breast, unspecified estrogen receptor status (HCC) Osteoarthritis of multiple joints, unspecified osteoarthritis type Constipation, unspecified constipation type Pre-op evaluation- Primary Preoperative examination, unspecified Essential hypertension Unspecified essential hypertension Mixed hyperlipidemia Malignant neoplasm of both ovaries (HCC) Malignant neoplasm of ovary Anemia, unspecified type Thrombocytopenia (HCC) Thrombocytopenia, unspecified GERD without esophagitis Esophageal reflux Encounter for immunotherapy- Primary Malignant neoplasm of both ovaries (HCC) Malignant neoplasm of ovary Malignant neoplasm of both ovaries (HCC) Malignant neoplasm of ovary 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) documented in this encounter [facility] [place] note* Diagnosis Pre-operative examination- Primary Preoperative examination, unspecified Malignant neoplasm of both ovaries (HCC) Malignant neoplasm of ovary Essential hypertension Unspecified essential hypertension Mixed hyperlipidemia Anemia, unspecified type Malignant neoplasm of upper-outer quadrant of left female breast, unspecified estrogen receptor status (HCC) Osteoarthritis of multiple joints, unspecified osteoarthritis type Constipation, unspecified constipation type Pre-op evaluation- Primary Preoperative examination, unspecified Essential hypertension Unspecified essential hypertension Mixed hyperlipidemia Malignant neoplasm of both ovaries (HCC) Malignant neoplasm of ovary Anemia, unspecified type Thrombocytopenia (HCC) Thrombocytopenia, unspecified GERD without esophagitis Esophageal reflux Malignant neoplasm of both ovaries (HCC) Malignant neoplasm of ovary 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) Malignant neoplasm of ovary 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) documented in this encounter [facility] [place] note* Diagnosis Pre-operative examination- Primary Preoperative examination, unspecified Malignant neoplasm of both ovaries (HCC) Malignant neoplasm of ovary Essential hypertension Unspecified essential hypertension Mixed hyperlipidemia Anemia, unspecified type Malignant neoplasm of upper-outer quadrant of left female breast, unspecified estrogen receptor status (HCC) Osteoarthritis of multiple joints, unspecified osteoarthritis type Constipation, unspecified constipation type Pre-op evaluation- Primary Preoperative examination, unspecified Essential hypertension Unspecified essential hypertension Mixed hyperlipidemia Malignant neoplasm of both ovaries (HCC) Malignant neoplasm of ovary Anemia, unspecified type Thrombocytopenia (HCC) Thrombocytopenia, unspecified GERD without esophagitis Esophageal reflux Rectal bleeding- Primary Hemorrhage of rectum and anus Hemorrhoids, unspecified hemorrhoid type Dysphagia, unspecified type S/P colectomy- Primary Other postprocedural status Iron deficiency anemia due to chronic blood loss Iron deficiency anemia secondary to blood loss (chronic) Malignant neoplasm of both ovaries (HCC) Malignant neoplasm of ovary 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) documented in this encounter [facility] [place] note* Diagnosis Pre-operative examination- Primary Preoperative examination, unspecified Malignant neoplasm of both ovaries (HCC) Malignant neoplasm of ovary Essential hypertension Unspecified essential hypertension Mixed hyperlipidemia Anemia, unspecified type Malignant neoplasm of upper-outer quadrant of left female breast, unspecified estrogen receptor status (HCC) Osteoarthritis of multiple joints, unspecified osteoarthritis type Constipation, unspecified constipation type Pre-op evaluation- Primary Preoperative examination, unspecified Essential hypertension Unspecified essential hypertension Mixed hyperlipidemia Malignant neoplasm of both ovaries (HCC) Malignant neoplasm of ovary Anemia, unspecified type Thrombocytopenia (HCC) Thrombocytopenia, unspecified GERD without esophagitis Esophageal reflux Malignant neoplasm of both ovaries (HCC)- Primary Malignant neoplasm of ovary 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) Malignant neoplasm of ovary 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) S/P colectomy- Primary Other postprocedural status Iron deficiency anemia due to chronic blood loss Iron deficiency anemia secondary to blood loss (chronic) Hemorrhoids, unspecified hemorrhoid type Rectal bleeding Hemorrhage of rectum and anus Dysphagia, unspecified type Malignant neoplasm of both ovaries (HCC) Malignant neoplasm of ovary 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) [facility]* Diagnosis Pre-operative examination- Primary Preoperative examination, unspecified Malignant neoplasm of both ovaries (HCC) Malignant neoplasm of ovary Essential hypertension Unspecified essential hypertension Mixed hyperlipidemia Anemia, unspecified type Malignant neoplasm of upper-outer quadrant of left female breast, unspecified estrogen receptor status (HCC) Osteoarthritis of multiple joints, unspecified osteoarthritis type Constipation, unspecified constipation type Pre-op evaluation- Primary Preoperative examination, unspecified Essential hypertension Unspecified essential hypertension Mixed hyperlipidemia Malignant neoplasm of both ovaries (HCC) Malignant neoplasm of ovary Anemia, unspecified type Thrombocytopenia (HCC) Thrombocytopenia, unspecified GERD without esophagitis Esophageal reflux S/P colectomy- Primary Other postprocedural status Iron deficiency anemia due to chronic blood loss Iron deficiency anemia secondary to blood loss (chronic) Hemorrhoids, unspecified hemorrhoid type Rectal bleeding Hemorrhage of rectum and anus Dysphagia, unspecified type Malignant neoplasm of both ovaries (HCC) Malignant neoplasm of ovary 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) [facility]* Diagnosis Pre-operative examination- Primary Preoperative examination, unspecified Malignant neoplasm of both ovaries (HCC) Malignant neoplasm of ovary Essential hypertension Unspecified essential hypertension Mixed hyperlipidemia Anemia, unspecified type Malignant neoplasm of upper-outer quadrant of left female breast, unspecified estrogen receptor status (HCC) Osteoarthritis of multiple joints, unspecified osteoarthritis type Constipation, unspecified constipation type Pre-op evaluation- Primary Preoperative examination, unspecified Essential hypertension Unspecified essential hypertension Mixed hyperlipidemia Malignant neoplasm of both ovaries (HCC) Malignant neoplasm of ovary Anemia, unspecified type Thrombocytopenia (HCC) Thrombocytopenia, unspecified GERD without esophagitis Esophageal reflux Malignant neoplasm of both ovaries (HCC) Malignant neoplasm of ovary 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 Malignant neoplasm of both ovaries (HCC) Malignant neoplasm of ovary 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) [facility]* Diagnosis Pre-operative examination- Primary Preoperative examination, unspecified Malignant neoplasm of both ovaries (HCC) Malignant neoplasm of ovary Essential hypertension Unspecified essential hypertension Mixed hyperlipidemia Anemia, unspecified type Malignant neoplasm of upper-outer quadrant of left female breast, unspecified estrogen receptor status (HCC) Osteoarthritis of multiple joints, unspecified osteoarthritis type Constipation, unspecified constipation type Pre-op evaluation- Primary Preoperative examination, unspecified Essential hypertension Unspecified essential hypertension Mixed hyperlipidemia Malignant neoplasm of both ovaries (HCC) Malignant neoplasm of ovary Anemia, unspecified type Thrombocytopenia (HCC) Thrombocytopenia, unspecified GERD without esophagitis Esophageal reflux Malignant neoplasm of both ovaries (HCC)- Primary Malignant neoplasm of ovary 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 Diagnosis Pre-operative examination- Primary Preoperative examination, unspecified Malignant neoplasm of both ovaries (HCC) Malignant neoplasm of ovary Essential hypertension Unspecified essential hypertension Mixed hyperlipidemia Anemia, unspecified type Malignant neoplasm of upper-outer quadrant of left female breast, unspecified estrogen receptor status (HCC) Osteoarthritis of multiple joints, unspecified osteoarthritis type Constipation, unspecified constipation type Pre-op evaluation- Primary Preoperative examination, unspecified Essential hypertension Unspecified essential hypertension Mixed hyperlipidemia Malignant neoplasm of both ovaries (HCC) Malignant neoplasm of ovary Anemia, unspecified type Thrombocytopenia (HCC) Thrombocytopenia, unspecified GERD without esophagitis Esophageal reflux Fallopian tube carcinoma, left (HCC)- Primary Malignant neoplasm of both ovaries (HCC) Malignant neoplasm of ovary 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) [facility] Diagnosis Pre-operative examination- Primary Preoperative examination, unspecified Malignant neoplasm of both ovaries (HCC) Malignant neoplasm of ovary Essential hypertension Unspecified essential hypertension Mixed hyperlipidemia Anemia, unspecified type Malignant neoplasm of upper-outer quadrant of left female breast, unspecified estrogen receptor status (HCC) Osteoarthritis of multiple joints, unspecified osteoarthritis type Constipation, unspecified constipation type Pre-op evaluation- Primary Preoperative examination, unspecified Essential hypertension Unspecified essential hypertension Mixed hyperlipidemia Malignant neoplasm of both ovaries (HCC) Malignant neoplasm of ovary Anemia, unspecified type Thrombocytopenia (HCC) Thrombocytopenia, unspecified GERD without esophagitis Esophageal reflux Carcinomatosis (HCC)- Primary Disseminated 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) Malignant neoplasm of ovary Malignant neoplasm of both ovaries (HCC) Malignant neoplasm of ovary 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) [facility] Diagnosis Pre-operative examination- Primary Preoperative examination, unspecified Malignant neoplasm of both ovaries (HCC) Malignant neoplasm of ovary Essential hypertension Unspecified essential hypertension Mixed hyperlipidemia Anemia, unspecified type Malignant neoplasm of upper-outer quadrant of left female breast, unspecified estrogen receptor status (HCC) Osteoarthritis of multiple joints, unspecified osteoarthritis type Constipation, unspecified constipation type Pre-op evaluation- Primary Preoperative examination, unspecified Essential hypertension Unspecified essential hypertension Mixed hyperlipidemia Malignant neoplasm of both ovaries (HCC) Malignant neoplasm of ovary Anemia, unspecified type Thrombocytopenia (HCC) Thrombocytopenia, unspecified GERD without esophagitis Esophageal reflux Rectal bleeding- Primary Hemorrhage of rectum and anus Dysphagia, unspecified type documented in this encounter [facility] [place] note* Diagnosis Pre-operative examination- Primary Preoperative examination, unspecified Malignant neoplasm of both ovaries (HCC) Malignant neoplasm of ovary Essential hypertension Unspecified essential hypertension Mixed hyperlipidemia Anemia, unspecified type Malignant neoplasm of upper-outer quadrant of left female breast, unspecified estrogen receptor status (HCC) Osteoarthritis of multiple joints, unspecified osteoarthritis type Constipation, unspecified constipation type Pre-op evaluation- Primary Preoperative examination, unspecified Essential hypertension Unspecified essential hypertension Mixed hyperlipidemia Malignant neoplasm of both ovaries (HCC) Malignant neoplasm of ovary Anemia, unspecified type Thrombocytopenia (HCC) Thrombocytopenia, unspecified GERD without esophagitis Esophageal reflux Carcinomatosis (HCC)- Primary Disseminated malignant neoplasm Malignant neoplasm of both ovaries (HCC) Malignant neoplasm of ovary 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) documented in this encounter [facility] [place] note* Diagnosis Pre-operative examination- Primary Preoperative examination, unspecified Malignant neoplasm of both ovaries (HCC) Malignant neoplasm of ovary Essential hypertension Unspecified essential hypertension Mixed hyperlipidemia Anemia, unspecified type Malignant neoplasm of upper-outer quadrant of left female breast, unspecified estrogen receptor status (HCC) Osteoarthritis of multiple joints, unspecified osteoarthritis type Constipation, unspecified constipation type Pre-op evaluation- Primary Preoperative examination, unspecified Essential hypertension Unspecified essential hypertension Mixed hyperlipidemia Malignant neoplasm of both ovaries (HCC) Malignant neoplasm of ovary Anemia, unspecified type Thrombocytopenia (HCC) Thrombocytopenia, unspecified GERD without esophagitis Esophageal reflux 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 Diagnosis Pre-operative examination- Primary Preoperative examination, unspecified Malignant neoplasm of both ovaries (HCC) Malignant neoplasm of ovary Essential hypertension Unspecified essential hypertension Mixed hyperlipidemia Anemia, unspecified type Malignant neoplasm of upper-outer quadrant of left female breast, unspecified estrogen receptor status (HCC) Osteoarthritis of multiple joints, unspecified osteoarthritis type Constipation, unspecified constipation type Pre-op evaluation- Primary Preoperative examination, unspecified Essential hypertension Unspecified essential hypertension Mixed hyperlipidemia Malignant neoplasm of both ovaries (HCC) Malignant neoplasm of ovary Anemia, unspecified type Thrombocytopenia (HCC) Thrombocytopenia, unspecified GERD without esophagitis Esophageal reflux Malignant neoplasm of both ovaries (HCC)- Primary Malignant neoplasm of ovary 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) Malignant neoplasm of ovary 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) Malignant neoplasm of ovary 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) documented in this encounter [facility] [place] note* Diagnosis Pre-operative examination- Primary Preoperative examination, unspecified Malignant neoplasm of both ovaries (HCC) Malignant neoplasm of ovary Essential hypertension Unspecified essential hypertension Mixed hyperlipidemia Anemia, unspecified type Malignant neoplasm of upper-outer quadrant of left female breast, unspecified estrogen receptor status (HCC) Osteoarthritis of multiple joints, unspecified osteoarthritis type Constipation, unspecified constipation type Pre-op evaluation- Primary Preoperative examination, unspecified Essential hypertension Unspecified essential hypertension Mixed hyperlipidemia Malignant neoplasm of both ovaries (HCC) Malignant neoplasm of ovary Anemia, unspecified type Thrombocytopenia (HCC) Thrombocytopenia, unspecified GERD without esophagitis Esophageal reflux Malignant neoplasm of both ovaries (HCC) Malignant neoplasm of ovary 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 Diagnosis Pre-operative examination- Primary Preoperative examination, unspecified Malignant neoplasm of both ovaries (HCC) Malignant neoplasm of ovary Essential hypertension Unspecified essential hypertension Mixed hyperlipidemia Anemia, unspecified type Malignant neoplasm of upper-outer quadrant of left female breast, unspecified estrogen receptor status (HCC) Osteoarthritis of multiple joints, unspecified osteoarthritis type Constipation, unspecified constipation type Pre-op evaluation- Primary Preoperative examination, unspecified Essential hypertension Unspecified essential hypertension Mixed hyperlipidemia Malignant neoplasm of both ovaries (HCC) Malignant neoplasm of ovary Anemia, unspecified type Thrombocytopenia (HCC) Thrombocytopenia, unspecified GERD without esophagitis Esophageal reflux 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) Malignant neoplasm of ovary Malignant neoplasm of both ovaries (HCC) Malignant neoplasm of ovary 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) Malignant neoplasm of ovary 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) documented in this encounter [facility] [place] note* Diagnosis Pre-operative examination- Primary Preoperative examination, unspecified Malignant neoplasm of both ovaries (HCC) Malignant neoplasm of ovary Essential hypertension Unspecified essential hypertension Mixed hyperlipidemia Anemia, unspecified type Malignant neoplasm of upper-outer quadrant of left female breast, unspecified estrogen receptor status (HCC) Osteoarthritis of multiple joints, unspecified osteoarthritis type Constipation, unspecified constipation type Pre-op evaluation- Primary Preoperative examination, unspecified Essential hypertension Unspecified essential hypertension Mixed hyperlipidemia Malignant neoplasm of both ovaries (HCC) Malignant neoplasm of ovary Anemia, unspecified type Thrombocytopenia (HCC) Thrombocytopenia, unspecified GERD without esophagitis Esophageal reflux Medicare annual wellness visit, subsequent- Primary Routine general medical examination at a health care facility Essential hypertension Unspecified essential hypertension Mixed hyperlipidemia Impaired fasting glucose GERD without esophagitis Esophageal reflux Iron deficiency anemia due to chronic blood loss Iron deficiency anemia secondary to blood loss (chronic) Iron malabsorption Other specified intestinal malabsorption Panic attacks Panic disorder without agoraphobia Anemia, unspecified type Malignant neoplasm of upper-outer quadrant of right breast in female, estrogen receptor positive (HCC) Carcinoma of fallopian tube, unspecified laterality (HCC) Carcinomatosis (HCC) 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 Diagnosis Pre-operative examination- Primary Preoperative examination, unspecified Malignant neoplasm of both ovaries (HCC) Malignant neoplasm of ovary Essential hypertension Unspecified essential hypertension Mixed hyperlipidemia Anemia, unspecified type Malignant neoplasm of upper-outer quadrant of left female breast, unspecified estrogen receptor status (HCC) Osteoarthritis of multiple joints, unspecified osteoarthritis type Constipation, unspecified constipation type Pre-op evaluation- Primary Preoperative examination, unspecified Essential hypertension Unspecified essential hypertension Mixed hyperlipidemia Malignant neoplasm of both ovaries (HCC) Malignant neoplasm of ovary Anemia, unspecified type Thrombocytopenia (HCC) Thrombocytopenia, unspecified GERD without esophagitis Esophageal reflux Malignant neoplasm of both ovaries (HCC) Malignant neoplasm of ovary 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 Diagnosis Pre-operative examination- Primary Preoperative examination, unspecified Malignant neoplasm of both ovaries (HCC) Malignant neoplasm of ovary Essential hypertension Unspecified essential hypertension Mixed hyperlipidemia Anemia, unspecified type Malignant neoplasm of upper-outer quadrant of left female breast, unspecified estrogen receptor status (HCC) Osteoarthritis of multiple joints, unspecified osteoarthritis type Constipation, unspecified constipation type Pre-op evaluation- Primary Preoperative examination, unspecified Essential hypertension Unspecified essential hypertension Mixed hyperlipidemia Malignant neoplasm of both ovaries (HCC) Malignant neoplasm of ovary Anemia, unspecified type Thrombocytopenia (HCC) Thrombocytopenia, unspecified GERD without esophagitis Esophageal reflux Malignant neoplasm of both ovaries (HCC)- Primary Malignant neoplasm of ovary 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 Diagnosis Pre-operative examination- Primary Preoperative examination, unspecified Malignant neoplasm of both ovaries (HCC) Malignant neoplasm of ovary Essential hypertension Unspecified essential hypertension Mixed hyperlipidemia Anemia, unspecified type Malignant neoplasm of upper-outer quadrant of left female breast, unspecified estrogen receptor status (HCC) Osteoarthritis of multiple joints, unspecified osteoarthritis type Constipation, unspecified constipation type Pre-op evaluation- Primary Preoperative examination, unspecified Essential hypertension Unspecified essential hypertension Mixed hyperlipidemia Malignant neoplasm of both ovaries (HCC) Malignant neoplasm of ovary Anemia, unspecified type Thrombocytopenia (HCC) Thrombocytopenia, unspecified GERD without esophagitis Esophageal reflux Microcytic anemia- Primary Iron deficiency anemia, unspecified Malignant neoplasm of both ovaries (HCC) Malignant neoplasm of ovary 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) documented in this encounter [facility] [place] note* Diagnosis Pre-operative examination- Primary Preoperative examination, unspecified Malignant neoplasm of both ovaries (HCC) Malignant neoplasm of ovary Essential hypertension Unspecified essential hypertension Mixed hyperlipidemia Anemia, unspecified type Malignant neoplasm of upper-outer quadrant of left female breast, unspecified estrogen receptor status (HCC) Osteoarthritis of multiple joints, unspecified osteoarthritis type Constipation, unspecified constipation type Pre-op evaluation- Primary Preoperative examination, unspecified Essential hypertension Unspecified essential hypertension Mixed hyperlipidemia Malignant neoplasm of both ovaries (HCC) Malignant neoplasm of ovary Anemia, unspecified type Thrombocytopenia Thrombocytopenia, unspecified GERD without esophagitis Esophageal reflux Malignant neoplasm of both ovaries (HCC) Malignant neoplasm of ovary 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 Microcytic anemia Iron deficiency anemia, unspecified Malignant neoplasm of both ovaries (HCC) Malignant neoplasm of ovary 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) documented in this encounter [facility] [place] note* Diagnosis Pre-operative examination- Primary Preoperative examination, unspecified Malignant neoplasm of both ovaries (HCC) Malignant neoplasm of ovary Essential hypertension Unspecified essential hypertension Mixed hyperlipidemia Anemia, unspecified type Malignant neoplasm of upper-outer quadrant of left female breast, unspecified estrogen receptor status (HCC) Osteoarthritis of multiple joints, unspecified osteoarthritis type Constipation, unspecified constipation type Pre-op evaluation- Primary Preoperative examination, unspecified Essential hypertension Unspecified essential hypertension Mixed hyperlipidemia Malignant neoplasm of both ovaries (HCC) Malignant neoplasm of ovary Anemia, unspecified type Thrombocytopenia Thrombocytopenia, unspecified GERD without esophagitis Esophageal reflux Malignant ascites (HCC)- Primary Malignant ascites Chemotherapy-induced neuropathy (HCC) Polyneuropathy due to drugs BRCA2 gene mutation positive Chemotherapy-induced fatigue 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) Malignant neoplasm of fallopian tube Malignant neoplasm of both ovaries (HCC) Malignant neoplasm of ovary 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 Diagnosis Pre-operative examination- Primary Preoperative examination, unspecified Malignant neoplasm of both ovaries (HCC) Malignant neoplasm of ovary Essential hypertension Unspecified essential hypertension Mixed hyperlipidemia Anemia, unspecified type Malignant neoplasm of upper-outer quadrant of left female breast, unspecified estrogen receptor status (HCC) Osteoarthritis of multiple joints, unspecified osteoarthritis type Constipation, unspecified constipation type Pre-op evaluation- Primary Preoperative examination, unspecified Essential hypertension Unspecified essential hypertension Mixed hyperlipidemia Malignant neoplasm of both ovaries (HCC) Malignant neoplasm of ovary Anemia, unspecified type Thrombocytopenia Thrombocytopenia, unspecified GERD without esophagitis Esophageal reflux Malignant neoplasm of both ovaries (HCC)- Primary Malignant neoplasm of ovary 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 Essential hypertension Unspecified essential hypertension Mixed hyperlipidemia Chemotherapy-induced neuropathy (HCC) Polyneuropathy due to drugs Malignant neoplasm of both ovaries (HCC) Malignant neoplasm of ovary 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) [facility]* Diagnosis Pre-operative examination- Primary Preoperative examination, unspecified Malignant neoplasm of both ovaries (HCC) Malignant neoplasm of ovary Essential hypertension Unspecified essential hypertension Mixed hyperlipidemia Anemia, unspecified type Malignant neoplasm of upper-outer quadrant of left female breast, unspecified estrogen receptor status (HCC) Osteoarthritis of multiple joints, unspecified osteoarthritis type Constipation, unspecified constipation type Pre-op evaluation- Primary Preoperative examination, unspecified Essential hypertension Unspecified essential hypertension Mixed hyperlipidemia Malignant neoplasm of both ovaries (HCC) Malignant neoplasm of ovary Anemia, unspecified type Thrombocytopenia Thrombocytopenia, unspecified GERD without esophagitis Esophageal reflux Malignant neoplasm of both ovaries (HCC) Malignant neoplasm of ovary 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 Diagnosis Pre-operative examination- Primary Preoperative examination, unspecified Malignant neoplasm of both ovaries (HCC) Malignant neoplasm of ovary Essential hypertension Unspecified essential hypertension Mixed hyperlipidemia Anemia, unspecified type Malignant neoplasm of upper-outer quadrant of left female breast, unspecified estrogen receptor status (HCC) Osteoarthritis of multiple joints, unspecified osteoarthritis type Constipation, unspecified constipation type Pre-op evaluation- Primary Preoperative examination, unspecified Essential hypertension Unspecified essential hypertension Mixed hyperlipidemia Malignant neoplasm of both ovaries (HCC) Malignant neoplasm of ovary Anemia, unspecified type Thrombocytopenia Thrombocytopenia, unspecified GERD without esophagitis Esophageal reflux Iron deficiency anemia due to chronic blood loss- Primary Iron deficiency anemia secondary to blood loss (chronic) Malignant neoplasm of both ovaries (HCC) Malignant neoplasm of ovary 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) [facility]* Diagnosis Pre-operative examination- Primary Preoperative examination, unspecified Malignant neoplasm of both ovaries (HCC) Malignant neoplasm of ovary Essential hypertension Unspecified essential hypertension Mixed hyperlipidemia Anemia, unspecified type Malignant neoplasm of upper-outer quadrant of left female breast, unspecified estrogen receptor status (HCC) Osteoarthritis of multiple joints, unspecified osteoarthritis type Constipation, unspecified constipation type Pre-op evaluation- Primary Preoperative examination, unspecified Essential hypertension Unspecified essential hypertension Mixed hyperlipidemia Malignant neoplasm of both ovaries (HCC) Malignant neoplasm of ovary Anemia, unspecified type Thrombocytopenia Thrombocytopenia, unspecified GERD without esophagitis Esophageal reflux Small bowel obstruction (HCC)- Primary Unspecified intestinal obstruction Leukopenia, unspecified type Thrombocytopenia Thrombocytopenia, unspecified SBO (small bowel obstruction) (HCC) Unspecified intestinal obstruction Malignant ascites (HCC) Malignant ascites Fallopian tube carcinoma, 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, left (HCC) SBO (small bowel obstruction) (HCC) Unspecified intestinal obstruction Nausea & vomiting Nausea with vomiting Hydronephrosis Severe protein-calorie malnutrition (HCC) Other severe protein-calorie malnutrition Malignant ascites (HCC) Malignant ascites Malignant neoplasm of both ovaries (HCC) Malignant neoplasm of ovary 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 Diagnosis Pre-operative examination- Primary Preoperative examination, unspecified Malignant neoplasm of both ovaries (HCC) Malignant neoplasm of ovary Essential hypertension Unspecified essential hypertension Mixed hyperlipidemia Anemia, unspecified type Malignant neoplasm of upper-outer quadrant of left female breast, unspecified estrogen receptor status (HCC) Osteoarthritis of multiple joints, unspecified osteoarthritis type Constipation, unspecified constipation type Pre-op evaluation- Primary Preoperative examination, unspecified Essential hypertension Unspecified essential hypertension Mixed hyperlipidemia Malignant neoplasm of both ovaries (HCC) Malignant neoplasm of ovary Anemia, unspecified type Thrombocytopenia Thrombocytopenia, unspecified GERD without esophagitis Esophageal reflux Small bowel obstruction (HCC)- Primary Unspecified intestinal obstruction Leukopenia, unspecified type Thrombocytopenia Thrombocytopenia, unspecified SBO (small bowel obstruction) (HCC) Unspecified intestinal obstruction Malignant ascites (HCC) Malignant ascites Fallopian tube carcinoma, 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, left (HCC) SBO (small bowel obstruction) (HCC) Unspecified intestinal obstruction Nausea & vomiting Nausea with vomiting Hydronephrosis Severe protein-calorie malnutrition (HCC) Other severe protein-calorie malnutrition Malignant ascites (HCC) Malignant ascites Bilateral lower extremity edema Edema 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) Malignant neoplasm of fallopian tube Malignant neoplasm of both ovaries (HCC) Malignant neoplasm of ovary 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 Diagnosis Pre-operative examination- Primary Preoperative examination, unspecified Malignant neoplasm of both ovaries (HCC) Malignant neoplasm of ovary Essential hypertension Unspecified essential hypertension Mixed hyperlipidemia Anemia, unspecified type Malignant neoplasm of upper-outer quadrant of left female breast, unspecified estrogen receptor status (HCC) Osteoarthritis of multiple joints, unspecified osteoarthritis type Constipation, unspecified constipation type Pre-op evaluation- Primary Preoperative examination, unspecified Essential hypertension Unspecified essential hypertension Mixed hyperlipidemia Malignant neoplasm of both ovaries (HCC) Malignant neoplasm of ovary Anemia, unspecified type Thrombocytopenia Thrombocytopenia, unspecified GERD without esophagitis Esophageal reflux Small bowel obstruction (HCC)- Primary Unspecified intestinal obstruction Leukopenia, unspecified type Thrombocytopenia Thrombocytopenia, unspecified SBO (small bowel obstruction) (HCC) Unspecified intestinal obstruction Malignant ascites (HCC) Malignant ascites Fallopian tube carcinoma, 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, left (HCC) SBO (small bowel obstruction) (HCC) Unspecified intestinal obstruction Nausea & vomiting Nausea with vomiting Hydronephrosis Severe protein-calorie malnutrition (HCC) Other severe protein-calorie malnutrition Malignant ascites (HCC) Malignant ascites Malignant neoplasm of both ovaries (HCC)- Primary Malignant neoplasm of ovary 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 Diagnosis Pre-operative examination- Primary Preoperative examination, unspecified Malignant neoplasm of both ovaries (HCC) Malignant neoplasm of ovary Essential hypertension Unspecified essential hypertension Mixed hyperlipidemia Anemia, unspecified type Malignant neoplasm of upper-outer quadrant of left female breast, unspecified estrogen receptor status (HCC) Osteoarthritis of multiple joints, unspecified osteoarthritis type Constipation, unspecified constipation type Pre-op evaluation- Primary Preoperative examination, unspecified Essential hypertension Unspecified essential hypertension Mixed hyperlipidemia Malignant neoplasm of both ovaries (HCC) Malignant neoplasm of ovary Anemia, unspecified type Thrombocytopenia Thrombocytopenia, unspecified GERD without esophagitis Esophageal reflux Small bowel obstruction (HCC)- Primary Unspecified intestinal obstruction Leukopenia, unspecified type Thrombocytopenia Thrombocytopenia, unspecified SBO (small bowel obstruction) (HCC) Unspecified intestinal obstruction Malignant ascites (HCC) Malignant ascites Fallopian tube carcinoma, 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, left (HCC) SBO (small bowel obstruction) (HCC) Unspecified intestinal obstruction Nausea & vomiting Nausea with vomiting Hydronephrosis Severe protein-calorie malnutrition (HCC) Other severe protein-calorie malnutrition Malignant ascites (HCC) Malignant ascites Malignant neoplasm of both ovaries (HCC) Malignant neoplasm of ovary 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 Malignant ascites (HCC) Malignant ascites Microcytic anemia Iron deficiency anemia, unspecified Malignant neoplasm of both ovaries (HCC) Malignant neoplasm of ovary 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) documented in this encounter [facility] [place] note* Diagnosis Pre-operative examination- Primary Preoperative examination, unspecified Malignant neoplasm of both ovaries (HCC) Malignant neoplasm of ovary Essential hypertension Unspecified essential hypertension Mixed hyperlipidemia Anemia, unspecified type Malignant neoplasm of upper-outer quadrant of left female breast, unspecified estrogen receptor status (HCC) Osteoarthritis of multiple joints, unspecified osteoarthritis type Constipation, unspecified constipation type Pre-op evaluation- Primary Preoperative examination, unspecified Essential hypertension Unspecified essential hypertension Mixed hyperlipidemia Malignant neoplasm of both ovaries (HCC) Malignant neoplasm of ovary Anemia, unspecified type Thrombocytopenia Thrombocytopenia, unspecified GERD without esophagitis Esophageal reflux Small bowel obstruction (HCC)- Primary Unspecified intestinal obstruction Leukopenia, unspecified type Thrombocytopenia Thrombocytopenia, unspecified SBO (small bowel obstruction) (HCC) Unspecified intestinal obstruction Malignant ascites (HCC) Malignant ascites Fallopian tube carcinoma, 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, left (HCC) SBO (small bowel obstruction) (HCC) Unspecified intestinal obstruction Nausea & vomiting Nausea with vomiting Hydronephrosis Severe protein-calorie malnutrition (HCC) Other severe protein-calorie malnutrition Malignant ascites (HCC) Malignant ascites Malignant neoplasm of both ovaries (HCC)- Primary Malignant neoplasm of ovary Carcinomatosis (HCC) Disseminated malignant neoplasm Malignant ascites (HCC) Malignant ascites Anemia, unspecified type Malignant neoplasm of both ovaries (HCC) Malignant neoplasm of ovary 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) documented in this encounter [facility] [place] note* Diagnosis Pre-operative examination- Primary Preoperative examination, unspecified Malignant neoplasm of both ovaries (HCC) Malignant neoplasm of ovary Essential hypertension Unspecified essential hypertension Mixed hyperlipidemia Anemia, unspecified type Malignant neoplasm of upper-outer quadrant of left female breast, unspecified estrogen receptor status (HCC) Osteoarthritis of multiple joints, unspecified osteoarthritis type Constipation, unspecified constipation type Pre-op evaluation- Primary Preoperative examination, unspecified Essential hypertension Unspecified essential hypertension Mixed hyperlipidemia Malignant neoplasm of both ovaries (HCC) Malignant neoplasm of ovary Anemia, unspecified type Thrombocytopenia Thrombocytopenia, unspecified GERD without esophagitis Esophageal reflux Small bowel obstruction (HCC)- Primary Unspecified intestinal obstruction Leukopenia, unspecified type Thrombocytopenia Thrombocytopenia, unspecified SBO (small bowel obstruction) (HCC) Unspecified intestinal obstruction Malignant ascites (HCC) Malignant ascites Fallopian tube carcinoma, 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, left (HCC) SBO (small bowel obstruction) (HCC) Unspecified intestinal obstruction Nausea & vomiting Nausea with vomiting Hydronephrosis Severe protein-calorie malnutrition (HCC) Other severe protein-calorie malnutrition Malignant ascites (HCC) Malignant ascites Iron deficiency anemia due to chronic blood loss- Primary Iron deficiency anemia secondary to blood loss (chronic) Iron malabsorption (HCC) Other specified intestinal malabsorption [facility] Diagnosis Pre-operative examination- Primary Preoperative examination, unspecified Malignant neoplasm of both ovaries (HCC) Malignant neoplasm of ovary Essential hypertension Unspecified essential hypertension Mixed hyperlipidemia Anemia, unspecified type Malignant neoplasm of upper-outer quadrant of left female breast, unspecified estrogen receptor status (HCC) Osteoarthritis of multiple joints, unspecified osteoarthritis type Constipation, unspecified constipation type Pre-op evaluation- Primary Preoperative examination, unspecified Essential hypertension Unspecified essential hypertension Mixed hyperlipidemia Malignant neoplasm of both ovaries (HCC) Malignant neoplasm of ovary Anemia, unspecified type Thrombocytopenia Thrombocytopenia, unspecified GERD without esophagitis Esophageal reflux Small bowel obstruction (HCC)- Primary Unspecified intestinal obstruction Leukopenia, unspecified type Thrombocytopenia Thrombocytopenia, unspecified SBO (small bowel obstruction) (HCC) Unspecified intestinal obstruction Malignant ascites (HCC) Malignant ascites Fallopian tube carcinoma, 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, left (HCC) SBO (small bowel obstruction) (HCC) Unspecified intestinal obstruction Nausea & vomiting Nausea with vomiting Hydronephrosis Severe protein-calorie malnutrition (HCC) Other severe protein-calorie malnutrition Malignant ascites (HCC) Malignant ascites Iron deficiency anemia due to chronic blood loss- Primary Iron deficiency anemia secondary to blood loss (chronic) Iron malabsorption (HCC) Other specified intestinal malabsorption Malignant neoplasm of both ovaries (HCC) Malignant neoplasm of ovary 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 Diagnosis Pre-operative examination- Primary Preoperative examination, unspecified Malignant neoplasm of both ovaries (HCC) Malignant neoplasm of ovary Essential hypertension Unspecified essential hypertension Mixed hyperlipidemia Anemia, unspecified type Malignant neoplasm of upper-outer quadrant of left female breast, unspecified estrogen receptor status (HCC) Osteoarthritis of multiple joints, unspecified osteoarthritis type Constipation, unspecified constipation type Pre-op evaluation- Primary Preoperative examination, unspecified Essential hypertension Unspecified essential hypertension Mixed hyperlipidemia Malignant neoplasm of both ovaries (HCC) Malignant neoplasm of ovary Anemia, unspecified type Thrombocytopenia Thrombocytopenia, unspecified GERD without esophagitis Esophageal reflux Small bowel obstruction (HCC)- Primary Unspecified intestinal obstruction Leukopenia, unspecified type Thrombocytopenia Thrombocytopenia, unspecified SBO (small bowel obstruction) (HCC) Unspecified intestinal obstruction Malignant ascites (HCC) Malignant ascites Fallopian tube carcinoma, 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, left (HCC) SBO (small bowel obstruction) (HCC) Unspecified intestinal obstruction Nausea & vomiting Nausea with vomiting Hydronephrosis Severe protein-calorie malnutrition (HCC) Other severe protein-calorie malnutrition Malignant ascites (HCC) Malignant ascites Malignant neoplasm of both ovaries (HCC) Malignant neoplasm of ovary 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 Anemia, unspecified type [facility] Diagnosis Pre-operative examination- Primary Preoperative examination, unspecified Malignant neoplasm of both ovaries (HCC) Malignant neoplasm of ovary Essential hypertension Unspecified essential hypertension Mixed hyperlipidemia Anemia, unspecified type Malignant neoplasm of upper-outer quadrant of left female breast, unspecified estrogen receptor status (HCC) Osteoarthritis of multiple joints, unspecified osteoarthritis type Constipation, unspecified constipation type Pre-op evaluation- Primary Preoperative examination, unspecified Essential hypertension Unspecified essential hypertension Mixed hyperlipidemia Malignant neoplasm of both ovaries (HCC) Malignant neoplasm of ovary Anemia, unspecified type Thrombocytopenia Thrombocytopenia, unspecified GERD without esophagitis Esophageal reflux Small bowel obstruction (HCC)- Primary Unspecified intestinal obstruction Leukopenia, unspecified type Thrombocytopenia Thrombocytopenia, unspecified SBO (small bowel obstruction) (HCC) Unspecified intestinal obstruction Malignant ascites (HCC) Malignant ascites Fallopian tube carcinoma, 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, left (HCC) SBO (small bowel obstruction) (HCC) Unspecified intestinal obstruction Nausea & vomiting Nausea with vomiting Hydronephrosis Severe protein-calorie malnutrition (HCC) Other severe protein-calorie malnutrition Malignant ascites (HCC) Malignant ascites Iron deficiency anemia due to chronic blood loss- Primary Iron deficiency anemia secondary to blood loss (chronic) Iron malabsorption (HCC) Other specified intestinal malabsorption documented in this encounter [facility] [place] note* Diagnosis Pre-operative examination- Primary Preoperative examination, unspecified Malignant neoplasm of both ovaries (HCC) Malignant neoplasm of ovary Essential hypertension Unspecified essential hypertension Mixed hyperlipidemia Anemia, unspecified type Malignant neoplasm of upper-outer quadrant of left female breast, unspecified estrogen receptor status (HCC) Osteoarthritis of multiple joints, unspecified osteoarthritis type Constipation, unspecified constipation type Pre-op evaluation- Primary Preoperative examination, unspecified Essential hypertension Unspecified essential hypertension Mixed hyperlipidemia Malignant neoplasm of both ovaries (HCC) Malignant neoplasm of ovary Anemia, unspecified type Thrombocytopenia Thrombocytopenia, unspecified GERD without esophagitis Esophageal reflux Small bowel obstruction (HCC)- Primary Unspecified intestinal obstruction Leukopenia, unspecified type Thrombocytopenia Thrombocytopenia, unspecified SBO (small bowel obstruction) (HCC) Unspecified intestinal obstruction Malignant ascites (HCC) Malignant ascites Fallopian tube carcinoma, 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, left (HCC) SBO (small bowel obstruction) (HCC) Unspecified intestinal obstruction Nausea & vomiting Nausea with vomiting Hydronephrosis Severe protein-calorie malnutrition (HCC) Other severe protein-calorie malnutrition Malignant ascites (HCC) Malignant ascites Malignant neoplasm of both ovaries (HCC) Malignant neoplasm of ovary 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 Anemia, unspecified type documented in this encounter [facility] [place] note* Diagnosis Pre-operative examination- Primary Preoperative examination, unspecified Malignant neoplasm of both ovaries (HCC) Malignant neoplasm of ovary Essential hypertension Unspecified essential hypertension Mixed hyperlipidemia Anemia, unspecified type Malignant neoplasm of upper-outer quadrant of left female breast, unspecified estrogen receptor status (HCC) Osteoarthritis of multiple joints, unspecified osteoarthritis type Constipation, unspecified constipation type Pre-op evaluation- Primary Preoperative examination, unspecified Essential hypertension Unspecified essential hypertension Mixed hyperlipidemia Malignant neoplasm of both ovaries (HCC) Malignant neoplasm of ovary Anemia, unspecified type Thrombocytopenia Thrombocytopenia, unspecified GERD without esophagitis Esophageal reflux Small bowel obstruction (HCC)- Primary Unspecified intestinal obstruction Leukopenia, unspecified type Thrombocytopenia Thrombocytopenia, unspecified SBO (small bowel obstruction) (HCC) Unspecified intestinal obstruction Malignant ascites (HCC) Malignant ascites Fallopian tube carcinoma, 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, left (HCC) SBO (small bowel obstruction) (HCC) Unspecified intestinal obstruction Nausea & vomiting Nausea with vomiting Hydronephrosis Severe protein-calorie malnutrition (HCC) Other severe protein-calorie malnutrition Malignant ascites (HCC) Malignant ascites Malignant neoplasm of both ovaries (HCC) Malignant neoplasm of ovary Carcinomatosis (HCC) 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) Anemia, unspecified type documented in this encounter [facility] [place] note* Diagnosis Pre-operative examination- Primary Preoperative examination, unspecified Malignant neoplasm of both ovaries (HCC) Malignant neoplasm of ovary Essential hypertension Unspecified essential hypertension Mixed hyperlipidemia Anemia, unspecified type Malignant neoplasm of upper-outer quadrant of left female breast, unspecified estrogen receptor status (HCC) Osteoarthritis of multiple joints, unspecified osteoarthritis type Constipation, unspecified constipation type Pre-op evaluation- Primary Preoperative examination, unspecified Essential hypertension Unspecified essential hypertension Mixed hyperlipidemia Malignant neoplasm of both ovaries (HCC) Malignant neoplasm of ovary Anemia, unspecified type Thrombocytopenia Thrombocytopenia, unspecified GERD without esophagitis Esophageal reflux Small bowel obstruction (HCC)- Primary Unspecified intestinal obstruction Leukopenia, unspecified type Thrombocytopenia Thrombocytopenia, unspecified SBO (small bowel obstruction) (HCC) Unspecified intestinal obstruction Malignant ascites (HCC) Malignant ascites Fallopian tube carcinoma, 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, left (HCC) SBO (small bowel obstruction) (HCC) Unspecified intestinal obstruction Nausea & vomiting Nausea with vomiting Hydronephrosis Severe protein-calorie malnutrition (HCC) Other severe protein-calorie malnutrition Malignant ascites (HCC) Malignant ascites Malignant neoplasm of both ovaries (HCC)- Primary Malignant neoplasm of ovary 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 Malignant ascites (HCC) Malignant ascites Anemia, unspecified type documented in this encounter [facility] [place] note* Diagnosis Pre-operative examination- Primary Preoperative examination, unspecified Malignant neoplasm of both ovaries (HCC) Malignant neoplasm of ovary Essential hypertension Unspecified essential hypertension Mixed hyperlipidemia Anemia, unspecified type Malignant neoplasm of upper-outer quadrant of left female breast, unspecified estrogen receptor status (HCC) Osteoarthritis of multiple joints, unspecified osteoarthritis type Constipation, unspecified constipation type Pre-op evaluation- Primary Preoperative examination, unspecified Essential hypertension Unspecified essential hypertension Mixed hyperlipidemia Malignant neoplasm of both ovaries (HCC) Malignant neoplasm of ovary Anemia, unspecified type Thrombocytopenia Thrombocytopenia, unspecified GERD without esophagitis Esophageal reflux Small bowel obstruction (HCC)- Primary Unspecified intestinal obstruction Leukopenia, unspecified type Thrombocytopenia Thrombocytopenia, unspecified SBO (small bowel obstruction) (HCC) Unspecified intestinal obstruction Malignant ascites (HCC) Malignant ascites Fallopian tube carcinoma, 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, left (HCC) SBO (small bowel obstruction) (HCC) Unspecified intestinal obstruction Nausea & vomiting Nausea with vomiting Hydronephrosis Severe protein-calorie malnutrition (HCC) Other severe protein-calorie malnutrition Malignant ascites (HCC) Malignant ascites Malignant neoplasm of both ovaries (HCC)- Primary Malignant neoplasm of ovary 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* Diagnosis Pre-operative examination- Primary Preoperative examination, unspecified Malignant neoplasm of both ovaries (HCC) Malignant neoplasm of ovary Essential hypertension Unspecified essential hypertension Mixed hyperlipidemia Anemia, unspecified type Malignant neoplasm of upper-outer quadrant of left female breast, unspecified estrogen receptor status (HCC) Osteoarthritis of multiple joints, unspecified osteoarthritis type Constipation, unspecified constipation type Pre-op evaluation- Primary Preoperative examination, unspecified Essential hypertension Unspecified essential hypertension Mixed hyperlipidemia Malignant neoplasm of both ovaries (HCC) Malignant neoplasm of ovary Anemia, unspecified type Thrombocytopenia Thrombocytopenia, unspecified GERD without esophagitis Esophageal reflux Small bowel obstruction (HCC)- Primary Unspecified intestinal obstruction Leukopenia, unspecified type Thrombocytopenia Thrombocytopenia, unspecified SBO (small bowel obstruction) (HCC) Unspecified intestinal obstruction Malignant ascites (HCC) Malignant ascites Fallopian tube carcinoma, 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, left (HCC) SBO (small bowel obstruction) (HCC) Unspecified intestinal obstruction Nausea & vomiting Nausea with vomiting Hydronephrosis Severe protein-calorie malnutrition (HCC) Other severe protein-calorie malnutrition Malignant ascites (HCC) Malignant ascites Malignant neoplasm of both ovaries (HCC)- Primary Malignant neoplasm of ovary 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 Diagnosis Pre-operative examination- Primary Preoperative examination, unspecified Malignant neoplasm of both ovaries (HCC) Malignant neoplasm of ovary Essential hypertension Unspecified essential hypertension Mixed hyperlipidemia Anemia, unspecified type Malignant neoplasm of upper-outer quadrant of left female breast, unspecified estrogen receptor status (HCC) Osteoarthritis of multiple joints, unspecified osteoarthritis type Constipation, unspecified constipation type Pre-op evaluation- Primary Preoperative examination, unspecified Essential hypertension Unspecified essential hypertension Mixed hyperlipidemia Malignant neoplasm of both ovaries (HCC) Malignant neoplasm of ovary Anemia, unspecified type Thrombocytopenia Thrombocytopenia, unspecified GERD without esophagitis Esophageal reflux Small bowel obstruction (HCC)- Primary Unspecified intestinal obstruction Leukopenia, unspecified type Thrombocytopenia Thrombocytopenia, unspecified SBO (small bowel obstruction) (HCC) Unspecified intestinal obstruction Malignant ascites (HCC) Malignant ascites Fallopian tube carcinoma, 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 Diagnosis Pre-operative examination- Primary Preoperative examination, unspecified Malignant neoplasm of both ovaries (HCC) Malignant neoplasm of ovary Essential hypertension Unspecified essential hypertension Mixed hyperlipidemia Anemia, unspecified type Malignant neoplasm of upper-outer quadrant of left female breast, unspecified estrogen receptor status (HCC) Osteoarthritis of multiple joints, unspecified osteoarthritis type Constipation, unspecified constipation type Pre-op evaluation- Primary Preoperative examination, unspecified Essential hypertension Unspecified essential hypertension Mixed hyperlipidemia Malignant neoplasm of both ovaries (HCC) Malignant neoplasm of ovary Anemia, unspecified type Thrombocytopenia Thrombocytopenia, unspecified GERD without esophagitis Esophageal reflux Small bowel obstruction (HCC)- Primary Unspecified intestinal obstruction Leukopenia, unspecified type Thrombocytopenia Thrombocytopenia, unspecified SBO (small bowel obstruction) (HCC) Unspecified intestinal obstruction Malignant ascites (HCC) Malignant ascites Fallopian tube carcinoma, 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, left (HCC) SBO (small bowel obstruction) (HCC) Unspecified intestinal obstruction Nausea & vomiting Nausea with vomiting Hydronephrosis Severe protein-calorie malnutrition (HCC) Other severe protein-calorie malnutrition Malignant ascites (HCC) Malignant ascites Malignant neoplasm of both ovaries (HCC) Malignant neoplasm of ovary 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 Anemia, unspecified type documented in this encounter [facility] [place] note* Diagnosis Pre-operative examination- Primary Preoperative examination, unspecified Malignant neoplasm of both ovaries (HCC) Malignant neoplasm of ovary Essential hypertension Unspecified essential hypertension Mixed hyperlipidemia Anemia, unspecified type Malignant neoplasm of upper-outer quadrant of left female breast, unspecified estrogen receptor status (HCC) Osteoarthritis of multiple joints, unspecified osteoarthritis type Constipation, unspecified constipation type Pre-op evaluation- Primary Preoperative examination, unspecified Essential hypertension Unspecified essential hypertension Mixed hyperlipidemia Malignant neoplasm of both ovaries (HCC) Malignant neoplasm of ovary Anemia, unspecified type Thrombocytopenia Thrombocytopenia, unspecified GERD without esophagitis Esophageal reflux Small bowel obstruction (HCC)- Primary Unspecified intestinal obstruction Leukopenia, unspecified type Thrombocytopenia Thrombocytopenia, unspecified SBO (small bowel obstruction) (HCC) Unspecified intestinal obstruction Malignant ascites (HCC) Malignant ascites Fallopian tube carcinoma, 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, left (HCC) SBO (small bowel obstruction) (HCC) Unspecified intestinal obstruction Nausea & vomiting Nausea with vomiting Hydronephrosis Severe protein-calorie malnutrition (HCC) Other severe protein-calorie malnutrition Malignant ascites (HCC) Malignant ascites Malignant neoplasm of both ovaries (HCC) Malignant neoplasm of ovary 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 Anemia, unspecified type documented in this encounter [facility] [place] note* Diagnosis Pre-operative examination- Primary Preoperative examination, unspecified Malignant neoplasm of both ovaries (HCC) Malignant neoplasm of ovary Essential hypertension Unspecified essential hypertension Mixed hyperlipidemia Anemia, unspecified type Malignant neoplasm of upper-outer quadrant of left female breast, unspecified estrogen receptor status (HCC) Osteoarthritis of multiple joints, unspecified osteoarthritis type Constipation, unspecified constipation type Pre-op evaluation- Primary Preoperative examination, unspecified Essential hypertension Unspecified essential hypertension Mixed hyperlipidemia Malignant neoplasm of both ovaries (HCC) Malignant neoplasm of ovary Anemia, unspecified type Thrombocytopenia Thrombocytopenia, unspecified GERD without esophagitis Esophageal reflux Small bowel obstruction (HCC)- Primary Unspecified intestinal obstruction Leukopenia, unspecified type Thrombocytopenia Thrombocytopenia, unspecified SBO (small bowel obstruction) (HCC) Unspecified intestinal obstruction Malignant ascites (HCC) Malignant ascites Fallopian tube carcinoma, 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, left (HCC) SBO (small bowel obstruction) (HCC) Unspecified intestinal obstruction Nausea & vomiting Nausea with vomiting Hydronephrosis Severe protein-calorie malnutrition (HCC) Other severe protein-calorie malnutrition Malignant ascites (HCC) Malignant ascites Malignant neoplasm of both ovaries (HCC)- Primary Malignant neoplasm of ovary 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 Anemia, unspecified type documented in this encounter [facility] [place] note* Diagnosis Pre-operative examination- Primary Preoperative examination, unspecified Malignant neoplasm of both ovaries (HCC) Malignant neoplasm of ovary Essential hypertension Unspecified essential hypertension Mixed hyperlipidemia Anemia, unspecified type Malignant neoplasm of upper-outer quadrant of left female breast, unspecified estrogen receptor status (HCC) Osteoarthritis of multiple joints, unspecified osteoarthritis type Constipation, unspecified constipation type Pre-op evaluation- Primary Preoperative examination, unspecified Essential hypertension Unspecified essential hypertension Mixed hyperlipidemia Malignant neoplasm of both ovaries (HCC) Malignant neoplasm of ovary Anemia, unspecified type Thrombocytopenia Thrombocytopenia, unspecified GERD without esophagitis Esophageal reflux Small bowel obstruction (HCC)- Primary Unspecified intestinal obstruction Leukopenia, unspecified type Thrombocytopenia Thrombocytopenia, unspecified SBO (small bowel obstruction) (HCC) Unspecified intestinal obstruction Malignant ascites (HCC) Malignant ascites Fallopian tube carcinoma, 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, left (HCC) SBO (small bowel obstruction) (HCC) Unspecified intestinal obstruction Nausea & vomiting Nausea with vomiting Hydronephrosis Severe protein-calorie malnutrition (HCC) Other severe protein-calorie malnutrition Malignant ascites (HCC) Malignant ascites Malignant neoplasm of both ovaries (HCC)- Primary Malignant neoplasm of ovary 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 Anemia, unspecified type documented in this encounter [facility] [place] note* Diagnosis Pre-operative examination- Primary Preoperative examination, unspecified Malignant neoplasm of both ovaries (HCC) Malignant neoplasm of ovary Essential hypertension Unspecified essential hypertension Mixed hyperlipidemia Anemia, unspecified type Malignant neoplasm of upper-outer quadrant of left female breast, unspecified estrogen receptor status (HCC) Osteoarthritis of multiple joints, unspecified osteoarthritis type Constipation, unspecified constipation type Pre-op evaluation- Primary Preoperative examination, unspecified Essential hypertension Unspecified essential hypertension Mixed hyperlipidemia Malignant neoplasm of both ovaries (HCC) Malignant neoplasm of ovary Anemia, unspecified type Thrombocytopenia Thrombocytopenia, unspecified GERD without esophagitis Esophageal reflux Small bowel obstruction (HCC)- Primary Unspecified intestinal obstruction Leukopenia, unspecified type Thrombocytopenia Thrombocytopenia, unspecified SBO (small bowel obstruction) (HCC) Unspecified intestinal obstruction Malignant ascites (HCC) Malignant ascites Fallopian tube carcinoma, 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, left (HCC) SBO (small bowel obstruction) (HCC) Unspecified intestinal obstruction Nausea & vomiting Nausea with vomiting Hydronephrosis Severe protein-calorie malnutrition (HCC) Other severe protein-calorie malnutrition Malignant ascites (HCC) Malignant ascites Malignant neoplasm of both ovaries (HCC) Malignant neoplasm of ovary 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 Anemia, unspecified type documented in this encounter [facility] [place] note* Diagnosis Pre-operative examination- Primary Preoperative examination, unspecified Malignant neoplasm of both ovaries (HCC) Malignant neoplasm of ovary Essential hypertension Unspecified essential hypertension Mixed hyperlipidemia Anemia, unspecified type Malignant neoplasm of upper-outer quadrant of left female breast, unspecified estrogen receptor status (HCC) Osteoarthritis of multiple joints, unspecified osteoarthritis type Constipation, unspecified constipation type Pre-op evaluation- Primary Preoperative examination, unspecified Essential hypertension Unspecified essential hypertension Mixed hyperlipidemia Malignant neoplasm of both ovaries (HCC) Malignant neoplasm of ovary Anemia, unspecified type Thrombocytopenia Thrombocytopenia, unspecified GERD without esophagitis Esophageal reflux Small bowel obstruction (HCC)- Primary Unspecified intestinal obstruction Leukopenia, unspecified type Thrombocytopenia Thrombocytopenia, unspecified SBO (small bowel obstruction) (HCC) Unspecified intestinal obstruction Malignant ascites (HCC) Malignant ascites Fallopian tube carcinoma, 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, left (HCC) SBO (small bowel obstruction) (HCC) Unspecified intestinal obstruction Nausea & vomiting Nausea with vomiting Hydronephrosis Severe protein-calorie malnutrition (HCC) Other severe protein-calorie malnutrition Malignant ascites (HCC) Malignant ascites Malignant neoplasm of both ovaries (HCC) Malignant neoplasm of ovary Carcinomatosis (HCC) 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) Anemia, unspecified type documented in this encounter [facility] [place] note* Diagnosis Pre-operative examination- Primary Preoperative examination, unspecified Malignant neoplasm of both ovaries (HCC) Malignant neoplasm of ovary Essential hypertension Unspecified essential hypertension Mixed hyperlipidemia Anemia, unspecified type Malignant neoplasm of upper-outer quadrant of left female breast, unspecified estrogen receptor status (HCC) Osteoarthritis of multiple joints, unspecified osteoarthritis type Constipation, unspecified constipation type Pre-op evaluation- Primary Preoperative examination, unspecified Essential hypertension Unspecified essential hypertension Mixed hyperlipidemia Malignant neoplasm of both ovaries (HCC) Malignant neoplasm of ovary Anemia, unspecified type Thrombocytopenia Thrombocytopenia, unspecified GERD without esophagitis Esophageal reflux Small bowel obstruction (HCC)- Primary Unspecified intestinal obstruction Leukopenia, unspecified type Thrombocytopenia Thrombocytopenia, unspecified SBO (small bowel obstruction) (HCC) Unspecified intestinal obstruction Malignant ascites (HCC) Malignant ascites Fallopian tube carcinoma, 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, left (HCC) SBO (small bowel obstruction) (HCC) Unspecified intestinal obstruction Nausea & vomiting Nausea with vomiting Hydronephrosis Severe protein-calorie malnutrition (HCC) Other severe protein-calorie malnutrition Malignant ascites (HCC) Malignant ascites Malignant neoplasm of both ovaries (HCC)- Primary Malignant neoplasm of ovary documented in this encounter [facility] [place] note* Diagnosis Pre-operative examination- Primary Preoperative examination, unspecified Malignant neoplasm of both ovaries (HCC) Malignant neoplasm of ovary Essential hypertension Unspecified essential hypertension Mixed hyperlipidemia Anemia, unspecified type Malignant neoplasm of upper-outer quadrant of left female breast, unspecified estrogen receptor status (HCC) Osteoarthritis of multiple joints, unspecified osteoarthritis type Constipation, unspecified constipation type Pre-op evaluation- Primary Preoperative examination, unspecified Essential hypertension Unspecified essential hypertension Mixed hyperlipidemia Malignant neoplasm of both ovaries (HCC) Malignant neoplasm of ovary Anemia, unspecified type Thrombocytopenia Thrombocytopenia, unspecified GERD without esophagitis Esophageal reflux Small bowel obstruction (HCC)- Primary Unspecified intestinal obstruction Leukopenia, unspecified type Thrombocytopenia Thrombocytopenia, unspecified SBO (small bowel obstruction) (HCC) Unspecified intestinal obstruction Malignant ascites (HCC) Malignant ascites Fallopian tube carcinoma, 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, left (HCC) SBO (small bowel obstruction) (HCC) Unspecified intestinal obstruction Nausea & vomiting Nausea with vomiting Hydronephrosis Severe protein-calorie malnutrition (HCC) Other severe protein-calorie malnutrition Malignant ascites (HCC) Malignant ascites Malignant neoplasm of both ovaries (HCC) Malignant neoplasm of ovary 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 Malignant ascites (HCC) Malignant ascites documented [facility] (narrative)* Diagnostic Procedure Only (Routine) - Authorized Specialty Diagnoses / Procedures Referred By Contac t Referred To Contact [facility] Diagnoses Encounter for screening mammogram for malignant neoplasm of breast Procedures YAYO SCREENING W SERAFIN SCREENING DIGITAL BREAST TOMOSYNTHESIS BI SCREENING MAMMOGRAPHY BI 2-VIEW BREAST INC CAD [employer] mayers, DO [address] [place] [address] [facility] [address] [place] [address] Referral ID Status Reason Start Date Expiration Date Visits Requested Visits Authorized [id number] Authorized Auto-Generat ed Referral 07/10/2022 08/09/2023 1 1 [facility] for referral (narrative)* Diagnostic Procedure Only (Routine) - Closed Specialty Diagnoses / Procedures Referred By Contac t Referred To Contact [facility] Diagnoses Encounter for screening mammogram for malignant neoplasm of breast Procedures YAYO SCREENING W SERAFIN SCREENING DIGITAL BREAST TOMOSYNTHESIS BI SCREENING MAMMOGRAPHY BI 2-VIEW BREAST INC CAD Js Cruz, DO [address] [place] [address] [facility] [address] [place] [address] Referral ID Status Reason Start Date Expiration Date V isits Requested Visits Authorized [id number] Closed Auto-Generate d Referral 07/10/2022 08/09/2023 1 1 [facility] for referral (narrative)* Diagnostic Procedure Only (Routine) - Closed Specialty Diagnoses / Procedures Referred By Contac t Referred To Contact XR IMAGING Diagnoses Acute pain of both knees Procedures XR KNEE LIMITED 2V AP/LAT LEFT RADIOLOGIC EXAMINATION KNEE 1/2 VIEWS Js Cruz DO [address] [facility] [place] [address] [place] [address] Referral ID Status Reason Start Date Expiration Date V isits Requested Visits Authorized [id number] Closed Auto-Generate d Referral 09/18/2022 10/18/2023 1 1 * Diagnostic Procedure Only (Routine) - Closed Specialty Diagnoses / Procedures Referred By Contac t Referred To Contact XR IMAGING Diagnoses Acute pain of both knees Procedures XR KNEE LIMITED 2V AP/LAT RIGHT RADIOLOGIC EXAMINATION KNEE 1/2 VIEWS sJ Cruz DO [address] [facility] [place] [address] [place] [address] Referral ID Status Reason Start Date Expiration Date V isits Requested Visits Authorized [id number] Closed Auto-Generate d Referral 09/18/2022 10/18/2023 1 1 [facility] (narrative)* Outpatient Procedure (Routine) - Authorized Specialty Diagnoses / Procedures Referred By Contac t Referred To [facility] Diagnoses Malignant neoplasm of both ovaries (HCC) Encounter for monitoring cardiotoxic drug therapy Procedures ECHO ECHO TTHRC R-T 2D W/WOM-MODE COMPL SPEC&COLR D Js Cruz DO [address] [place] [address] [facility] [address] [place] [address] Referral ID Status Reason Start Date Expiration Date Visits Requested Visits Authorized [id number] Authorized Auto-Generat ed Referral 3 05/06/2024 1 1 * MRI/CT (Routine) - Authorized Specialty Diagnoses / Procedures Referred By Contac t Referred To Contact CT IMAGING Diagnoses 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) Procedures CT CHEST W IVCON DIAGNOSTIC COMPUTED TOMOGRAPHY THORAX W/CONTRAST Js Cruz DO [address] [facility] [address] [place] [address] Referral ID Status Reason Start Date Expiration Date Visits Requested Visits Authorized [id number] Authorized Auto-Generat ed Referral 3 06/05/2024 1 1 * MRI/CT (Routine) - Authorized Specialty Diagnoses / Procedures Referred By Contac t Referred To Contact CT IMAGING Diagnoses 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 Referral ID Status Reason Start Date Expiration Date Visits Requested Visits Authorized [id number] Authorized Auto-Generat ed Referral 3 06/05/2024 1 1 [facility] for referral (narrative)* Outpatient Procedure (Urgent) - Closed Specialty Diagnoses / Procedures [facility] Diagnoses Leg swelling Malignant neoplasm of both ovaries (HCC) Procedures US LEG VEIN DVT UNL VAS LAB DUP-SCAN XTR VEINS UNILATERAL/LIMITED STUDY Js Cruz DO [address] [place] [address] [facility] [address] [place] [address] Referral ID Status Reason Start Date Expiration Date V isits Requested Visits Authorized [id number] Closed Auto-Generate d Referral 07/30/2023 07/29/2024 1 1 [facility] for referral (narrative)* Outpatient Procedure (Routine) - New Request Specialty Diagnoses / Procedures Referred By Adele perdue Referred To Contact [facility] Diagnoses Malignant ascites Procedures ABDOM PARACENTESIS DX/THER W IMAGING GUIDANCE ABDOM PARACENTESIS DX/THER W IMAGING GUIDANCE Karishma Franz APRN.CNP [address] [place] [address] [facility] [address] [place] [id number] Referral ID Status Reason Start Date Expiration Date Visits Requested Visits Authorized [id number] New Request Auto-Generat ed Referral 06/28/2024 06/28/2025 1 1 [facility]No reason for [facility]: Reason for visit Narrative* Diagnostic Procedure Only (Routine) - Closed Specialty Diagnoses / Procedures Referred By Adele perdue Referred To Contact [facility] Diagnoses Encounter for screening mammogram for malignant neoplasm of breast Procedures YAYO SCREENING W SERAFIN SCREENING DIGITAL BREAST TOMOSYNTHESIS BI SCREENING MAMMOGRAPHY BI 2-VIEW BREAST INC CAD Js Cruz, DO [address] [place] [address] [facility] [address] [place] [address] Referral ID Status Reason Start Date Expiration Date V isits Requested Visits Authorized [id number] Closed Auto-Generate d Referral 07/10/2022 08/09/2023 1 1 [facility] Narrative* Diagnostic Procedure Only (Routine) - Closed Specialty Diagnoses / Procedures Referred By Adele t Referred To Contact XR IMAGING Diagnoses Acute pain of both knees Procedures XR KNEE LIMITED 2V AP/LAT LEFT RADIOLOGIC EXAMINATION KNEE 1/2 VIEWS Js Cruz, DO [address] [place] [address] [place] [address] Referral ID Status Reason Start Date Expiration Date V isits Requested Visits Authorized [id number] Closed Auto-Generate d Referral 09/18/2022 10/18/2023 1 1 [facility] Narrative* Outpatient Procedure (Routine) - Closed Specialty Diagnoses / Procedures Referred By Adele perdue Referred To Contact [facility] [place] Diagnoses Malignant neoplasm of both ovaries (HCC) Encounter for monitoring cardiotoxic drug therapy Procedures ECHO ECHO TTHRC R-T 2D W/WOM-MODE COMPL SPEC&COLR D Js Cruz, DO [address] [place] [address] [facility] [place] [address] [place] [address] Referral ID Status Reason Start Date Expiration Date V isits Requested Visits Authorized [id number] Closed Auto-Generate d Referral 05/07/2023 05/06/2024 1 1 [facility] Narrative* MRI/CT (Routine) - Authorized Specialty Diagnoses / Procedures Referred By Adele perdue Referred To Contact CT IMAGING Diagnoses 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 Referral ID Status Reason Start Date Expiration Date Visits Requested Visits Authorized [id number] Authorized Auto-Generat ed Referral 07/26/2024 08/25/2025 24 24 [facility] Narrative* Outpatient Procedure (Routine) - Closed Specialty Diagnoses / Procedures Referred By Adele perdue Referred To Contact [facility] Diagnoses Hemorrhoids, unspecified hemorrhoid type Rectal bleeding Dysphagia, unspecified type Procedures COLONOSCOPY DIAGNOSTIC COLONOSCOPY FLX DX W/COLLJ SPEC WHEN Wu Estrada MD [address] [place] [address] Phone: tel: fax: [facility] [address] [place] [address] Referral ID Status Reason Start Date Expiration Date V isits Requested Visits Authorized [id number] Closed Auto-Generate d Referral 07/26/2024 07/26/2025 1 1 [facility] Narrative* MRI/CT (Urgent) - Closed Specialty Diagnoses / Procedures Referred By Contac t Referred To Contact CT IMAGING Diagnoses 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) Procedures CT CHEST W IVCON DIAGNOSTIC COMPUTED TOMOGRAPHY THORAX W/CONTRAST Js Cruz, [address] [place] [address] Phone: tel: fax: [place] [address] Referral ID Status Reason Start Date Expiration Date V isits Requested Visits Authorized [id number] Closed Auto-Generate d Referral 08/28/2024 09/27/2025 1 1 [facility] Narrative* MRI/CT (Routine) - Closed Specialty Diagnoses / Procedures Referred By Contkenneth t Referred To Contact CT IMAGING Diagnoses 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 Summary Purpose Family History No Family History Records Found Relationship Condition Age at Onset Recorded Date/T chalo mother Malignant neoplasm Unknown father Rheumatoid arthritis Unknown Advance Directives No Advanced Directives Records FoundDocuments on File Type Date Recorded Patient Pss Delivery Professional Expl anation Advance Directive(s) 12/20/2023 10:24 AM Date Activated Date Inactivated Comments 06/03/2023 9:14 AM 06/04/2023 10:21 PM Question Answer Comments Full Code Order Discussed With: Patient Documents on File Type Date Recorded Patient Pss Delivery Professional Expl anation Advance Directive(s) 10/04/2018 1:01 PM Date Activated Date Inactivated Comments 06/03/2023 9:14 AM 06/04/2023 10:21 PM Question Answer Comments Full Code Order Discussed With: Patient Latest Code Status on File Code Status Date Activated Date Inactivated Comments Full Code 06/03/2023 9:14 AM 06/04/2023 10:21 PM Question Answer Comments Full Code Order Discussed With: Patient Documents on File Type Date Recorded Patient Pss Delivery Professional Expl anation Advance Directive(s) 11/09/2018 10:47 AM Advance Directive(s) 11/03/2018 2:31 PM Advance Directive(s) 10/04/2018 12:56 PM Advance Directive(s) 10/04/2018 1:01 PM Advance Directive(s) 09/30/2018 9:49 AM Advance Directive(s) 09/16/2018 12:08 PM Advance Directive(s) 05/01/2016 10:18 AM Advance Directive(s) 07/22/2011 12:00 AM Documents on File Type Date Recorded Patient Pss Delivery Professional Expl anation Advance Directive(s) 11/09/2018 10:47 AM Advance Directive(s) 11/03/2018 2:31 PM Advance Directive(s) 10/04/2018 12:56 PM Advance Directive(s) 10/04/2018 1:01 PM Advance Directive(s) 09/30/2018 9:49 AM Advance Directive(s) 09/16/2018 12:08 PM Advance Directive(s) 05/01/2016 10:18 AM Advance Directive(s) 07/22/2011 12:00 AM Documents on File Type Date Recorded Patient Pss Delivery Professional Expl anation Advance Directive(s) 10/04/2018 1:01 PM Advance Directive(s) 07/22/2011 Documents on File Type Date Recorded Patient Pss Delivery Professional Expl anation Advance Directive(s) 10/04/2018 1:01 PM Advance Directive(s) 07/22/2011 Advance Directive Response Recorded Date/ Time Name of Medical Power of Fruit Press Operator Javier June 01, 2023 5:03pm Living Will Yes June 01, 2 023 5:03pm Power of Fruit Press Operator Yes June 01, 2023 5:03pm Documents on File Type Date Recorded Patient Pss Delivery Professional Expl anation Advance Directive(s) 10/04/2018 1:01 PM Latest Code Status on File Code Status Date Activated Date Inactivated Comments Full Code 06/03/2023 9:14 AM 06/04/2023 10:21 PM Question Answer Comments Full Code Order Discussed With: Patient Documents on File Type Date Recorded Patient Pss Delivery Professional Expl anation Advance Directive(s) 12/20/2023 10:24 AM Date Activated Date Inactivated Comments 08/14/2024 1:28 AM 08/14/2024 6:09 PM Question Answer Comments DNR Order Discussed With: Patient Date Activated Date Inactivated Comments 06/03/2023 9:14 AM 06/04/2023 10:21 PM Question Answer Comments Full Code Order Discussed With: Patient Date Activated Date Inactivated Comments 08/25/2024 8:39 AM 08/25/2024 12:11 PM Question Answer Comments Order Discussed With: Patient Date Activated Date Inactivated Comments 08/14/2024 1:28 AM 08/14/2024 6:09 PM Question Answer Comments DNR Order Discussed With: Patient Date Activated Date Inactivated Comments 06/03/2023 9:14 AM 06/04/2023 10:21 PM Question Answer Comments Full Code Order Discussed With: Patient Date Activated Date Inactivated Comments 08/25/2024 8:39 AM 08/25/2024 12:11 PM Question Answer Comments Order Discussed With: Patient Date Activated Date Inactivated Comments 08/14/2024 1:28 AM 08/14/2024 6:09 PM Question Answer Comments DNR Order Discussed With: Patient Date Activated Date Inactivated Comments 06/03/2023 9:14 AM 06/04/2023 10:21 PM Question Answer Comments Full Code Order Discussed With: Patient Date Activated Date Inactivated Comments 10/09/2024 10:39 AM Date Activated Date Inactivated Comments 08/25/2024 8:39 AM 08/25/2024 12:11 PM Question Answer Comments Order Discussed With: Patient Date Activated Date Inactivated Comments 08/14/2024 1:28 AM 08/14/2024 6:09 PM Question Answer Comments DNR Order Discussed With: Patient Date Activated Date Inactivated Comments 06/03/2023 9:14 AM 06/04/2023 10:21 PM Question Answer Comments Full Code Order Discussed With: Patient Date Activated Date Inactivated Comments 10/09/2024 10:39 AM 10/14/2024 5:47 PM Date Activated Date Inactivated Comments 10/09/2024 10:39 AM 10/14/2024 5:47 PM Question Answer Comments DNR Order Discussed With: Patient Date Activated Date Inactivated Comments 08/25/2024 8:39 AM 08/25/2024 12:11 PM Question Answer Comments Order Discussed With: Patient Date Activated Date Inactivated Comments 08/14/2024 1:28 AM 08/14/2024 6:09 PM Question Answer Comments DNR Order Discussed With: Patient Date Activated Date Inactivated Comments 06/03/2023 9:14 AM 06/04/2023 10:21 PM Question Answer Comments Full Code Order Discussed With: Patient Reason for Referral Specialty Diagnoses / Procedures Referred By Adele t Referred To Contact MR IMAGING Diagnoses Fibrocystic change of breast, right BRCA2 gene mutation positive in female Personal history of breast cancer Family history of breast cancer Procedures MRI BREAST WO/W IVCON BILAT MRI BREAST WITHOUT&WITH CONTRAST W/CAD BILATERAL Jose Costello PA-C [address] [place] [address] Mr Imaging Referral ID Status Reason Start Date Expiration Date V isits Requested Visits Authorized [id number] Closed Auto-Generate d Referral 07/04/2021 08/03/2022 1 1 Specialty Diagnoses / Procedures Referred By Adele Referred To Contact CT IMAGING Diagnoses Malignant neoplasm of both ovaries (HCC) Suprapubic pain, acute Procedures CT ABD/PEL W IVCON CT ABD & PELVIS W/CONTRAST Kaley Junior APRN.REGIONAL WILDLIFE AGENT [address] [place] [address] Ct Imaging Referral ID Status Reason Start Date Expiration Date Visits Requested Visits Authorized [id number] Pending Review Auto-Generat ed Referral 05/15/2023 1 1 Specialty Diagnoses / Procedures Referred By Adele Referred To Contact CT IMAGING Diagnoses Fallopian tube carcinoma, left (HCC) Neoplasm of fallopian tube Procedures CT CHEST W IVCON DIAGNOSTIC COMPUTED TOMOGRAPHY THORAX W/CONTRAST [place] [address] [address] [place] [id number] Imaging Referral ID Status Reason Start Date Expiration Date V isits Requested Visits Authorized [id number] Closed Auto-Generate d Referral 07/09/2022 07/25/2023 1 1 Specialty Diagnoses / [facility] To Contact CT IMAGING Diagnoses Fallopian tube carcinoma, left (HCC) Neoplasm of fallopian tube Procedures CT ABD/PEL W IVCON CT ABD & PELVIS W/CONTRAST [place] [address] [address] [place] [id number] Imaging Referral ID Status Reason Start Date Expiration Date V isits Requested Visits Authorized [id number] Closed Auto-Generate d Referral 07/09/2022 07/25/2023 1 1 Specialty Diagnoses / Procedures Referred By Contac t Referred To Contact MR IMAGING Diagnoses Fallopian tube carcinoma, left (HCC) Procedures MRI FEMALE PELVIS WO/W IVCON MRI PELVIS W/O & W/CONTRAST MATERIAL Fang Cote MD [address] [place] [address] Mr Imaging Referral ID Status Reason Start Date Expiration Date Visits Requested Visits Authorized [id number] Authorized Auto-Generat ed Referral 07/02/2022 07/31/2023 1 1 Referral ID Status Reason Start Date Expiration Date V isits Requested Visits Authorized [id number] Closed Auto-Generate d Referral 07/02/2022 07/31/2023 1 1 Specialty Diagnoses / Procedures Referred By Contac t Referred To Contact CT IMAGING Diagnoses 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 (HCC) Procedures CT ABD/PEL W IVCON CT ABD & PELVIS W/CONTRAST Kasi Welch APRN.REGIONAL WILDLIFE AGENT [address] [place] [address] Ct Imaging Referral ID Status Reason Start Date Expiration Date Visits Requested Visits Authorized [id number] Authorized Auto-Generat ed Referral 08/04/2022 09/03/2023 1 1 Specialty Diagnoses / Procedures Referred By Contac t Referred To Contact CT IMAGING Diagnoses Malignant neoplasm of both ovaries (HCC) Procedures CT CHEST W IVCON DIAGNOSTIC COMPUTED TOMOGRAPHY THORAX W/CONTRAST Js Cruz, DO [address] [facility] [place] [address] Ct Imaging Referral ID Status Reason Start Date Expiration Date Visits Requested Visits Authorized [id number] Authorized Auto-Generat ed Referral 09/18/2022 10/18/2023 1 1 Specialty Diagnoses / Procedures Referred By Contac t Referred To Contact CT IMAGING Diagnoses Malignant neoplasm of both ovaries (HCC) Procedures CT ABD/PEL W IVCON CT ABD & PELVIS W/CONTRAST Js Cruz, DO [address] [facility] [place] [address] Ct Imaging Referral ID Status Reason Start Date Expiration Date Visits Requested Visits Authorized [id number] Authorized Auto-Generat ed Referral 09/18/2022 10/18/2023 1 1 Specialty Diagnoses / Procedures Referred By Contac t Referred To Contact XR IMAGING Diagnoses Acute pain of both knees Procedures XR KNEE LIMITED 2V AP/LAT LEFT RADIOLOGIC EXAMINATION KNEE 1/2 VIEWS Js Cruz, DO [address] [place] [address] Xr Imaging Referral ID Status Reason Start Date Expiration Date V isits Requested Visits Authorized [id number] Closed Auto-Generate d Referral 09/18/2022 10/18/2023 1 1 Specialty Diagnoses / Procedures Referred By Contac t Referred To Contact XR IMAGING Diagnoses Acute pain of both knees Procedures XR KNEE LIMITED 2V AP/LAT RIGHT RADIOLOGIC EXAMINATION KNEE 1/2 VIEWS Js Cruz, DO [address] [facility] [place] [address] Xr Imaging Referral ID Status Reason Start Date Expiration Date V isits Requested Visits Authorized [id number] Closed Auto-Generate d Referral 09/18/2022 10/18/2023 1 1 Specialty Diagnoses / Procedures Referred By Contac t Referred To Contact Ent - Otolaryngology Diagnoses Bleeding from the nose Procedures CONSULT TO ENT OFFICE/OUTPATIENT [facility] 60-74 MINUTES Shay Cardoza MD [address] [place] [address] Referral ID Status Reason Start Date Expiration Date Visits Requested Visits Authorized [id number] Authorized PCP Requested Referral 11/13/2022 11/13/2023 1 1 Specialty Diagnoses / Procedures Referred By Contac t Referred To Contact CT IMAGING Diagnoses 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 of lung Procedures CT CHEST W IVCON DIAGNOSTIC COMPUTED TOMOGRAPHY THORAX W/CONTRAST Kasi Welch APRN.REGIONAL WILDLIFE AGENT [address] [place] [address] [place] [address] Referral ID Status Reason Start Date Expiration Date V isits Requested Visits Authorized [id number] Closed Auto-Generate d Referral 02/12/2023 03/13/2024 1 1 Specialty Diagnoses / Procedures Referred By Contac t Referred To Contact CT IMAGING Diagnoses 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 of lung Procedures CT ABD/PEL W IVCON CT ABD & PELVIS W/CONTRAST Kasi Welch, CERTIFIED ORTHOTIST/PEDORTHIST.REGIONAL WILDLIFE AGENT [address] [place] [address] [place] [address] Referral ID Status Reason Start Date Expiration Date V isits Requested Visits Authorized [id number] Closed Auto-Generate d Referral 02/12/2023 03/13/2024 1 1 Specialty Diagnoses / Procedures Referred By Contac t Referred To Contact CT IMAGING Diagnoses 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 Procedures CT ABD/PEL W IVCON CT ABD & PELVIS W/CONTRAST Kasi Welch, CERTIFIED ORTHOTIST/PEDORTHIST.REGIONAL WILDLIFE AGENT [address] [place] [address] [place] [address] Referral ID Status Reason Start Date Expiration Date V isits Requested Visits Authorized [id number] Closed Auto-Generate d Referral 08/04/2022 09/03/2023 1 1 Specialty Diagnoses / Procedures Referred By Contac t Referred To Contact CT IMAGING Diagnoses Malignant neoplasm of both ovaries (HCC) Carcinomatosis (HCC) Procedures CT CHEST W IVCON DIAGNOSTIC COMPUTED TOMOGRAPHY THORAX W/CONTRAST Masci Js A, DO [address] [place] [address] [place] [address] Referral ID Status Reason Start Date Expiration Date V isits Requested Visits Authorized [id number] Closed Auto-Generate d Referral 10/30/2022 11/29/2023 1 1 Specialty Diagnoses / Procedures Referred By Contac t Referred To Contact CT IMAGING Diagnoses Malignant neoplasm of both ovaries (HCC) Carcinomatosis (HCC) Procedures CT ABD/PEL W IVCON CT ABD & PELVIS W/CONTRAST Masci Js A, DO [address] [place] [address] [place] [address] Referral ID Status Reason Start Date Expiration Date V isits Requested Visits Authorized [id number] Closed Auto-Generate d Referral 10/30/2022 11/29/2023 1 1 Specialty Diagnoses / Procedures Referred By Contac t Referred To Contact CT IMAGING Diagnoses Fallopian tube carcinoma, left (HCC) Neoplasm of fallopian tube Procedures CT CHEST W IVCON DIAGNOSTIC COMPUTED TOMOGRAPHY THORAX W/CONTRAST [place] [address] [address] [place] [address] [place] [address] Specialty Diagnoses / Procedures Referred By Contac t Referred To Contact CT IMAGING Diagnoses Fallopian tube carcinoma, left (HCC) Neoplasm of fallopian tube Procedures CT ABD/PEL W IVCON CT ABD & PELVIS W/CONTRAST De[place]amination [place] [address] [address] [place] [address] [place] [address] Specialty Diagnoses / Procedures Referred By Contac t Referred To Contact CT IMAGING Diagnoses Malignant neoplasm of both ovaries (HCC) Procedures CT CHEST W IVCON DIAGNOSTIC COMPUTED TOMOGRAPHY THORAX W/CONTRAST Js Cruz, DO [address] [place] [address] [place] [address] Referral ID Status Reason Start Date Expiration Date V isits Requested Visits Authorized [id number] Closed Auto-Generate d Referral 09/18/2022 10/18/2023 1 1 Specialty Diagnoses / Procedures Referred By Contac t Referred To Contact CT IMAGING Diagnoses Malignant neoplasm of both ovaries (HCC) Procedures CT ABD/PEL W IVCON CT ABD & PELVIS W/CONTRAST Js Cruz, DO [address] [place] [address] [place] [address] Referral ID Status Reason Start Date Expiration Date V isits Requested Visits Authorized [id number] Closed Auto-Generate d Referral 09/18/2022 10/18/2023 1 1 Specialty Diagnoses / Procedures Referred By Contac t Referred To Contact CT IMAGING Diagnoses Malignant neoplasm of both ovaries (HCC) Suprapubic pain, acute Procedures CT ABD/PEL W IVCON CT ABD & PELVIS W/CONTRAST Lambhoward, Kaley, CERTIFIED ORTHOTIST/PEDORTHIST.REGIONAL WILDLIFE AGENT [address] [place] [address] [place] [address] Referral ID Status Reason Start Date Expiration Date V isits Requested Visits Authorized [id number] Closed Auto-Generate d Referral 04/15/2022 05/15/2023 1 1 Referral ID Status Reason Start Date Expiration Date Visits Requested Visits Authorized [id number] Authorized Auto-Generat ed Referral 09/08/2023 10/07/2024 1 1 Referral ID Status Reason Start Date Expiration Date Visits Requested Visits Authorized [id number] Authorized Auto-Generat ed Referral 09/08/2023 10/07/2024 1 1 Specialty Diagnoses / Procedures Referred By Contac t Referred To Contact CT IMAGING Diagnoses 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) Procedures CT CHEST WO IVCON DIAGNOSTIC COMPUTED TOMOGRAPHY THORAX W/O CNTRST Eve Js A, DO [address] [place] [address] [place] [address] Referral ID Status Reason Start Date Expiration Date V isits Requested Visits Authorized [id number] Closed Auto-Generate d Referral 12/10/2023 01/08/2025 1 1 Specialty Diagnoses / Procedures Referred By Contac t Referred To Contact CT IMAGING Diagnoses 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) Procedures CT ABD/PEL W IVCON CT ABD & PELVIS W/CONTRAST Masci, Js A, DO [address] [place] [address] [place] [address] Referral ID Status Reason Start Date Expiration Date Visits Requested Visits Authorized [id number] Authorized Auto-Generat ed Referral 02/29/2024 03/30/2025 1 1 Specialty Diagnoses / Procedures Referred By Contac t Referred To Contact CT IMAGING Diagnoses Malignant neoplasm of both ovaries (HCC) Carcinomatosis (HCC) Procedures CT CHEST W IVCON DIAGNOSTIC COMPUTED TOMOGRAPHY THORAX W/CONTRAST Kasi Welch, HECTOR.REGIONAL WILDLIFE AGENT [address] [place] [address] [place] [address] Referral ID Status Reason Start Date Expiration Date Visits Requested Visits Authorized [id number] Authorized Auto-Generat ed Referral 07/07/2025 1 1 Specialty Diagnoses / Procedures Referred By Contac t Referred To Contact CT IMAGING Diagnoses Malignant neoplasm of both ovaries (HCC) Carcinomatosis (HCC) Procedures CT ABD/PEL W IVCON CT ABD & PELVIS W/CONTRAST Kasi Welch APRN.REGIONAL WILDLIFE AGENT [address] [place] [address] [place] [address] Referral ID Status Reason Start Date Expiration Date Visits Requested Visits Authorized [id number] Authorized Auto-Generat ed Referral 07/07/2025 1 1 Medications Administered Section Inactive Administered Medications - up to 3 most recent administrations Medication Order MAR Action Action Date Dose Rate Site CARBOplatin 443 mg in NaCl 0.9% 319.3 mL (PARAPLATIN) 443 mg (Target AUC = 5), INTRAVENOUS, Administer over 30 Minutes, ONCE, 1 dose, On Wed07/20/22 at 0800, Approx Total Volume exp 0915 07/21/22 (room temp) Hazardous Chemotherapy Drug: Use appropriate PPE. Antineoplastic Irritant. New Bag/Syringe/Bottle 07/20/2022 11:42 AM EST 443 mg dexAMETHasone 10 mg/NS 50 mL (PYXIS) 10 mg ivpb (DECADRON) 10 mg, INTRAVENOUS, ONCE, 1 dose, On Wed07/20/22 at 0800, Refrigerate. New Bag/Syringe/Bottle 07/20/2022 8:11 AM EST 10 mg diphenhydrAMINE 25 mg injection (BENADRYL) 25 mg, INTRAVENOUS, ONCE, 1 dose, On Wed07/20/22 at 0800, Give prior to chemotherapy. Given 07/20/2022 8:11 AM EST 25 mg famotidine 20 mg injection (PEPCID) 20 mg, INTRAVENOUS, ONCE, 1 dose, On Wed07/20/22 at 0800, Give prior to chemotherapy. REFRIGERATE Given 07/20/2022 8:11 AM EST 20 mg PACLitaxel 292.26 mg in NaCl 0.9% 588.71 mL (TAXOL) 292.26 mg (rounded from 292.25 mg = 175 mg/m2 1.67 m2 Treatment Plan BSA from Recorded weight), INTRAVENOUS, Administer over 3 Hours, ONCE, 1 dose, On Wed07/20/22 at 0800, exp 1600 07/21/22 (room temp) Hazardous Chemotherapy Drug: Use appropriate PPE. Antineoplastic Irritant with Vesicant Potential. Administer with non-DEHP 0.2 micron filter and tubing. New Bag/Syringe/Bottle 07/20/2022 8:42 AM EST 292.26 mg palonosetron 0.25 mg injection (ALOXI) 0.25 mg, INTRAVENOUS, ONCE, 1 dose, On Wed07/20/22 at 0800, Flush IV line with NS prior to and following administration. Given 07/20/2022 8:11 AM EST 0.25 mg Inactive Administered Medications - up to 3 most recent administrations Medication Order MAR Action Action Date Dose Rate Site pegfilgrastim-jmdb 6 mg injection (FULPHILA) 6 mg, SUBCUTANEOUS, ONCE, 1 dose, On Wed07/21/22 at 1430, Refrigerate - Protect From Light - Do Not Shake - Allow prefilled syringe to reach room temperature for at least 30 minutes prior to injection. Given 07/21/2022 2:33 PM EST 6 mg Arm, Right Inactive Administered Medications - up to 3 most recent administrations Medication Order MAR Action Action Date Dose Rate Site CARBOplatin 470 mg in NaCl 0.9% 322 mL (PARAPLATIN) 470 mg (Target AUC = 5), INTRAVENOUS, Administer over 30 Minutes, ONCE, 1 dose, On Wed08/10/22 at 1000, Approx Total Volume EXP: 08/11/22 1000 Hazardous Chemotherapy Drug: Use appropriate PPE. Antineoplastic Irritant. New Bag/Syringe/Bottle 08/10/2022 2:08 PM EST 470 mg dexAMETHasone 10 mg/NS 50 mL (PYXIS) 10 mg ivpb (DECADRON) 10 mg, INTRAVENOUS, ONCE, 1 dose, On Wed08/10/22 at 1000, Refrigerate. New Bag/Syringe/Bottle 08/10/2022 10:11 AM EST 10 mg diphenhydrAMINE 25 mg injection (BENADRYL) 25 mg, INTRAVENOUS, ONCE, 1 dose, On Wed08/10/22 at 1000, Give prior to chemotherapy. Given 08/10/2022 10:04 AM EST 25 mg famotidine 20 mg injection (PEPCID) 20 mg, INTRAVENOUS, ONCE, 1 dose, On Wed08/10/22 at 1000, Give prior to chemotherapy. REFRIGERATE Given 08/10/2022 10:06 AM EST 20 mg PACLitaxel 292.26 mg in NaCl 0.9% 588.71 mL (TAXOL) 292.26 mg (rounded from 292.25 mg = 175 mg/m2 1.67 m2 Treatment Plan BSA from Recorded weight), INTRAVENOUS, Administer over 3 Hours, ONCE, 1 dose, On Wed08/10/22 at 1000, Approx Total Volume Exp: 08/11/22 1600 Hazardous Chemotherapy Drug: Use appropriate PPE. Antineoplastic Irritant with Vesicant Potential. Administer with non-DEHP 0.2 micron filter and tubing. New Bag/Syringe/Bottle 08/10/2022 10:54 AM EST 292.26 mg palonosetron 0.25 mg injection (ALOXI) 0.25 mg, INTRAVENOUS, ONCE, 1 dose, On Wed08/10/22 at 1000, Flush IV line with NS prior to and following administration. Given 08/10/2022 10:08 AM EST 0.25 mg Inactive Administered Medications - up to 3 most recent administrations Medication Order MAR Action Action Date Dose Rate Site pegfilgrastim-jmdb 6 mg injection (FULPHILA) 6 mg, SUBCUTANEOUS, ONCE, 1 dose, On Wed08/11/22 at 1530, Refrigerate - Protect From Light - Do Not Shake - Allow prefilled syringe to reach room temperature for at least 30 minutes prior to injection. Given 08/11/2022 3:18 PM EST 6 mg Arm, Right Inactive Administered Medications - up to 3 most recent administrations Medication Order MAR Action Action Date Dose Rate Site bevacizumab-bvzr 900 mg in NaCl 0.9% 146 mL (ZIRABEV) 900 mg (rounded from 928.5 mg = 15 mg/kg/dose 61.9 kg Treatment plan Recorded weight), INTRAVENOUS, Administer over 30 Minutes, ONCE, 1 dose, On Wed08/31/22 at 0800, exp immediate use (room temp) - Do Not Shake Refrigerate - EXP: (8 HR) New Bag/Syringe/Bottle 08/31/2022 8:19 AM EDT 900 mg CARBOplatin 456 mg in NaCl 0.9% 320.6 mL (PARAPLATIN) 456 mg (Target AUC = 5), INTRAVENOUS, Administer over 30 Minutes, ONCE, 1 dose, On Wed08/31/22 at 0800, exp 0909/01/22 (room temp) Hazardous Chemotherapy Drug: Use appropriate PPE. Antineoplastic Irritant. New Bag/Syringe/Bottle 08/31/2022 12:01 PM EDT 456 mg dexAMETHasone 10 mg/NS 50 mL (PYXIS) 10 mg ivpb (DECADRON) 10 mg, INTRAVENOUS, ONCE, 1 dose, On Wed08/31/22 at 0800, Refrigerate. New Bag/Syringe/Bottle 08/31/2022 7:58 AM EDT 10 mg diphenhydrAMINE 25 mg injection (BENADRYL) 25 mg, INTRAVENOUS, ONCE, 1 dose, On Wed08/31/22 at 0800, Give prior to chemotherapy. Given 08/31/2022 7:58 AM EDT 25 mg famotidine 20 mg injection (PEPCID) 20 mg, INTRAVENOUS, ONCE, 1 dose, On Wed08/31/22 at 0800, Give prior to chemotherapy. REFRIGERATE Given 08/31/2022 7:59 AM EDT 20 mg PACLitaxel 292.26 mg in NaCl 0.9% 588.71 mL (TAXOL) 292.26 mg (rounded from 292.25 mg = 175 mg/m2 1.67 m2 Treatment Plan BSA from Recorded weight), INTRAVENOUS, Administer over 3 Hours, ONCE, 1 dose, On Wed08/31/22 at 0800, exp 09/06/22 (refrigerated) Hazardous Chemotherapy Drug: Use appropriate PPE. Antineoplastic Irritant with Vesicant Potential. Administer with non-DEHP 0.2 micron filter and tubing. New Bag/Syringe/Bottle 08/31/2022 8:55 AM EDT 292.26 mg palonosetron 0.25 mg injection (ALOXI) 0.25 mg, INTRAVENOUS, ONCE, 1 dose, On Wed08/31/22 at 0800, Flush IV line with NS prior to and following administration. Given 08/31/2022 7:59 AM EDT 0.25 mg Inactive Administered Medications - up to 3 most recent administrations Medication Order MAR Action Action Date Dose Rate Site pegfilgrastim-jmdb 6 mg injection (FULPHILA) 6 mg, SUBCUTANEOUS, ONCE, 1 dose, On Wed09/01/22 at 1500, Refrigerate - Protect From Light - Do Not Shake - Allow prefilled syringe to reach room temperature for at least 30 minutes prior to injection. Given 09/01/2022 2:39 PM EDT 6 mg Arm, Right Inactive Administered Medications - up to 3 most recent administrations Medication Order MAR Action Action Date Dose Rate Site pegfilgrastim-jmdb 6 mg injection (FULPHILA) 6 mg, SUBCUTANEOUS, ONCE, 1 dose, On Wed09/22/22 at 1400, Refrigerate - Protect From Light - Do Not Shake - Allow prefilled syringe to reach room temperature for at least 30 minutes prior to injection. Given 09/22/2022 2:02 PM EDT 6 mg Arm, Right Inactive Administered Medications - up to 3 most recent administrations Medication Order MAR Action Action Date Dose Rate Site CARBOplatin 409.5 mg in NaCl 0.9% 315.95 mL (PARAPLATIN) 409.5 mg (Target AUC = 5), INTRAVENOUS, Administer over 30 Minutes, ONCE, 1 dose, On Wed10/12/22 at 0830, exp 0900 10/13/22 (room temp) Hazardous Chemotherapy Drug: Use appropriate PPE. Antineoplastic Irritant. New Bag/Syringe/Bottle 10/12/2022 11:36 AM EDT 409.5 mg dexAMETHasone sodium phosphate 4 mg injection (DECADRON) 4 mg, INTRAVENOUS, ONCE, 1 dose, On Wed10/12/22 at 0830 Given 10/12/2022 8:23 AM EDT 4 mg diphenhydrAMINE 25 mg injection (BENADRYL) 25 mg, INTRAVENOUS, ONCE, 1 dose, On Wed10/12/22 at 0830, Give prior to chemotherapy. Given 10/12/2022 8:14 AM EDT 25 mg famotidine 20 mg injection (PEPCID) 20 mg, INTRAVENOUS, ONCE, 1 dose, On Wed10/12/22 at 0830, Give prior to chemotherapy. REFRIGERATE Given 10/12/2022 8:17 AM EDT 20 mg PACLitaxel 292.26 mg in NaCl 0.9% 588.71 mL (TAXOL) 292.26 mg (rounded from 292.25 mg = 175 mg/m2 1.67 m2 Treatment Plan BSA from Recorded weight), INTRAVENOUS, Administer over 3 Hours, ONCE, 1 dose, On Wed10/12/22 at 0830, exp 1700 (room temp) Hazardous Chemotherapy Drug: Use appropriate PPE. Antineoplastic Irritant with Vesicant Potential. Administer with non-DEHP 0.2 micron filter and tubing. New Bag/Syringe/Bottle 10/12/2022 8:33 AM EDT 292.26 mg palonosetron 0.25 mg injection (ALOXI) 0.25 mg, INTRAVENOUS, ONCE, 1 dose, On Wed10/12/22 at 0830, Flush IV line with NS prior to and following administration. Given 10/12/2022 8:19 AM EDT 0.25 mg Inactive Administered Medications - up to 3 most recent administrations Medication Order MAR Action Action Date Dose Rate Site pegfilgrastim-jmdb 6 mg injection (FULPHILA) 6 mg, SUBCUTANEOUS, ONCE, 1 dose, On Wed10/13/22 at 1430, Refrigerate - Protect From Light - Do Not Shake - Allow prefilled syringe to reach room temperature for at least 30 minutes prior to injection. Given 10/13/2022 2:17 PM EDT 6 mg Arm, Right Inactive Administered Medications - up to 3 most recent administrations Medication Order MAR Action Action Date Dose Rate Site CARBOplatin 389 mg in NaCl 0.9% 313.9 mL (PARAPLATIN) 389 mg (Target AUC = 5), INTRAVENOUS, Administer over 30 Minutes, ONCE, 1 dose, On Wed11/02/22 at 0800, exp 0800 11/03/22 (room temp) Hazardous Chemotherapy Drug: Use appropriate PPE. Antineoplastic Irritant. New Bag/Syringe/Bottle 11/02/2022 11:13 AM EDT 389 mg dexAMETHasone sodium phosphate 4 mg injection (DECADRON) 4 mg, INTRAVENOUS, ONCE, 1 dose, On Wed11/02/22 at 0800 Given 11/02/2022 7:56 AM EDT 4 mg diphenhydrAMINE 25 mg injection (BENADRYL) 25 mg, INTRAVENOUS, ONCE, 1 dose, On Wed11/02/22 at 0800, Give prior to chemotherapy. Given 11/02/2022 8:00 AM EDT 50 mg famotidine 20 mg injection (PEPCID) 20 mg, INTRAVENOUS, ONCE, 1 dose, On Wed11/02/22 at 0800, Give prior to chemotherapy. REFRIGERATE Given 11/02/2022 7:58 AM EDT 20 mg PACLitaxel 292.26 mg in NaCl 0.9% 588.71 mL (TAXOL) 292.26 mg (rounded from 292.25 mg = 175 mg/m2 1.67 m2 Treatment Plan BSA from Recorded weight), INTRAVENOUS, Administer over 3 Hours, ONCE, 1 dose, On Wed11/02/22 at 0800, exp 1400 11/03/22 (room temp) Hazardous Chemotherapy Drug: Use appropriate PPE. Antineoplastic Irritant with Vesicant Potential. Administer with non-DEHP 0.2 micron filter and tubing. New Bag/Syringe/Bottle 11/02/2022 8:09 AM EDT 292.26 mg palonosetron 0.25 mg injection (ALOXI) 0.25 mg, INTRAVENOUS, ONCE, 1 dose, On Wed11/02/22 at 0800, Flush IV line with NS prior to and following administration. Given 11/02/2022 7:54 AM EDT 0.25 mg Inactive Administered Medications - up to 3 most recent administrations Medication Order MAR Action Action Date Dose Rate Site pegfilgrastim-jmdb 6 mg injection (FULPHILA) 6 mg, SUBCUTANEOUS, ONCE, 1 dose, On Wed11/03/22 at 1400, Refrigerate - Protect From Light - Do Not Shake - Allow prefilled syringe to reach room temperature for at least 30 minutes prior to injection. Given 11/03/2022 1:58 PM EDT 6 mg Arm, Right Inactive Administered Medications - up to 3 most recent administrations Medication Order MAR Action Action Date Dose Rate Site dexAMETHasone 10 mg/NS 50 mL (PYXIS) 10 mg ivpb (DECADRON) 10 mg, INTRAVENOUS, ONCE, 1 dose, On Tiffany 12/17/22 at 0830, Give 30 minutes prior to chemotherapy. Refrigerate. New Bag/Syringe/Bottle 12/17/2022 8:20 AM EDT 10 mg diphenhydrAMINE 50 mg injection (BENADRYL) 50 mg, INTRAVENOUS, ONCE, 1 dose, On Tiffany 12/17/22 at 0830, Give 30 minutes prior to chemotherapy. Given 12/17/2022 8:20 AM EDT 50 mg DOXOrubicin LIPOSOMAL 66 mg in D5W 308 mL (DOXIL, LIPODOX) 66 mg (40 mg/m2 1.65 m2 Treatment Plan BSA from Recorded weight), INTRAVENOUS, Administer over 1 Hours, ONCE, 1 dose, On Wed12/17/22 at 0830, Approx Total Volume - IMMEDIATE USE at room temp DO NOT SHAKE BAG Hazardous Chemotherapy Drug: Use appropriate PPE. Antineoplastic Irritant. Flush line with D5W before and after administration. New Bag/Syringe/Bottle 12/17/2022 8:55 AM EDT 66 mg Inactive Administered Medications - up to 3 most recent administrations Medication Order MAR Action Action Date Dose Rate Site DOXOrubicin LIPOSOMAL 66 mg in D5W 308 mL (DOXIL, LIPODOX) 66 mg (40 mg/m2 1.65 m2 Treatment Plan BSA from Recorded weight), INTRAVENOUS, Administer over 1 Hours, ONCE, 1 dose, On Wed01/15/23 at 1300, DO NOT SHAKE BAG exp 1330 01/15/23 (room temp) Hazardous Chemotherapy Drug: Use appropriate PPE. Antineoplastic Irritant. Flush line with D5W before and after administration. New Bag/Syringe/Bottle 01/15/2023 1:31 PM EDT 66 mg ondansetron (PF) 8 mg injection (ZOFRAN) 8 mg, INTRAVENOUS, ONCE, 1 dose, On Wed01/15/23 at 1300 Given 01/15/2023 1:11 PM EDT 8 mg Inactive Administered Medications - up to 3 most recent administrations Medication Order MAR Action Action Date Dose Rate Site DOXOrubicin LIPOSOMAL 49.5 mg in D5W 299.75 mL (DOXIL, LIPODOX) 49.5 mg (30 mg/m2 1.65 m2 Treatment Plan BSA from Recorded weight), INTRAVENOUS, Administer over 1 Hours, ONCE, 1 dose, On Wed02/15/23 at 0900, DO NOT SHAKE BAG exp 89902/16/23 (room temp) Hazardous Chemotherapy Drug: Use appropriate PPE. Antineoplastic Irritant. Flush line with D5W before and after administration. New Bag/Syringe/Bottle 02/15/2023 9:07 AM EDT 49.5 mg ondansetron (PF) 8 mg injection (ZOFRAN) 8 mg, INTRAVENOUS, ONCE, 1 dose, On Wed02/15/23 at 0900 Given 02/15/2023 8:49 AM EDT 8 mg Inactive Administered Medications - up to 3 most recent administrations Medication Order MAR Action Action Date Dose Rate Site DOXOrubicin LIPOSOMAL 49.5 mg in D5W 299.75 mL (DOXIL, LIPODOX) 49.5 mg (30 mg/m2 1.65 m2 Treatment Plan BSA from Recorded weight), INTRAVENOUS, Administer over 1 Hours, ONCE, 1 dose, On Wed04/12/23 at 0900, DO NOT SHAKE BAG exp 89904/13/23 (room temp) Hazardous Chemotherapy Drug: Use appropriate PPE. Antineoplastic Irritant. Flush line with D5W before and after administration. New Bag/Syringe/Bottle 04/12/2023 9:24 AM EDT 49.5 mg ondansetron (PF) 8 mg injection (ZOFRAN) 8 mg, INTRAVENOUS, ONCE, 1 dose, On Wed04/12/23 at 0900 Given 04/12/2023 8:52 AM EDT 8 mg Inactive Administered Medications - up to 3 most recent administrations Medication Order MAR Action Action Date Dose Rate Site DOXOrubicin LIPOSOMAL 49.5 mg in D5W 299.75 mL (DOXIL, LIPODOX) 49.5 mg (30 mg/m2 1.65 m2 Treatment Plan BSA from Recorded weight), INTRAVENOUS, Administer over 1 Hours, ONCE, 1 dose, On Wed05/10/23 at 0930, DO NOT SHAKE BAG Approx Total Volume - IMMEDIATE USE at room temp Hazardous Chemotherapy Drug: Use appropriate PPE. Antineoplastic Irritant. Flush line with D5W before and after administration. New Bag/Syringe/Bottle 05/10/2023 10:06 AM EST 49.5 mg ondansetron (PF) 8 mg injection (ZOFRAN) 8 mg, INTRAVENOUS, ONCE, 1 dose, On Wed05/10/23 at 0930 Given 05/10/2023 9:35 AM EST 8 mg Chief Complaint and Reason for Visit Chief Complaint GENERAL ILLNESS GENERAL ILLNESS Chief Complaint Admit Date 1 UNIT [facility] November 03, 2024 9:17a m Chief Complaint Admit Date 1 UNIT [facility] November 03, 2024 9:17a m 1 UNIT [facility] November 27, 2024 1:10p m Chief Complaint Admit Date 1 UNIT PR[facility] November 03, 2024 9:17a m 1 UNIT [facility] November 28, 2024 11:0 3am Additional Source Comments INFORMATION SOURCE (unrecogn ized section and content) DATE CREATED AUTHOR 01/12/2020 [facility] DATE CREATED AUTHOR AUTHOR'S ORGANIZ ATION 10/06/2024 [facility] DATE CREATED AUTHOR AUTHOR'S ORGANIZ ATION 11/01/2024 [facility] DATE CREATED AUTHOR AUTHOR'S ORGANIZ ATION 12/06/2024 [facility] DATE CREATED AUTHOR AUTHOR'S ORGANIZ ATION 01/04/2025 [facility] Source Comments (unrecognize d section and content) In the event this informatio n is protected by the Federal Confidentiality of Alcohol and Drug Abuse Patient Records regulations: The Federal rules restrict any use of the information to criminally investigate or prosecute any alcohol or drug abuse patient.[facility] the event this information is protected by the Federal Confidentiality of Alcohol and Drug Abuse Patient Records regulations: The Federal rules restrict any use of the information to criminally investigate or prosecute any alcohol or drug abuse patient.[facility] HospitalIn the event this information is protected by the Federal Confidentiality of Alcohol and Drug Abuse Patient Records regulations: The Federal rules restrict any use of the information to criminally investigate or prosecute any alcohol or drug abuse patient.[facility] HospitalIn the event this information is protected by the Federal Confidentiality of Alcohol and Drug Abuse Patient Records regulations: The Federal rules restrict any use of the information to criminally investigate or prosecute any alcohol or drug abuse patient.[facility] HospitalIn the event this information is protected by the Federal Confidentiality of Alcohol and Drug Abuse Patient Records regulations: The Federal rules restrict any use of the information to criminally investigate or prosecute any alcohol or drug abuse patient.[facility] HospitalIn the event this information is protected by the Federal Confidentiality of Alcohol and Drug Abuse Patient Records regulations: The Federal rules restrict any use of the information to criminally investigate or prosecute any alcohol or drug abuse patient.[facility] HospitalIn the event this information is protected by the Federal Confidentiality of Alcohol and Drug Abuse Patient Records regulations: The Federal rules restrict any use of the information to criminally investigate or prosecute any alcohol or drug abuse patient.[facility] HospitalIn the event this information is protected by the Federal Confidentiality of Alcohol and Drug Abuse Patient Records regulations: The Federal rules restrict any use of the information to criminally investigate or prosecute any alcohol or drug abuse patient.[facility] HospitalIn the event this information is protected by the Federal Confidentiality of Alcohol and Drug Abuse Patient Records regulations: The Federal rules restrict any use of the information to criminally investigate or prosecute any alcohol or drug abuse patient.[facility] HospitalIn the event this information is protected by the Federal Confidentiality of Alcohol and Drug Abuse Patient Records regulations: The Federal rules restrict any use of the information to criminally investigate or prosecute any alcohol or drug abuse patient.[facility] HospitalIn the event this information is protected by the Federal Confidentiality of Alcohol and Drug Abuse Patient Records regulations: The Federal rules restrict any use of the information to criminally investigate or prosecute any alcohol or drug abuse patient.[facility] HospitalIn the event this information is protected by the Federal Confidentiality of Alcohol and Drug Abuse Patient Records regulations: The Federal rules restrict any use of the information to criminally investigate or prosecute any alcohol or drug abuse patient.[facility] HospitalIn the event this information is protected by the Federal Confidentiality of Alcohol and Drug Abuse Patient Records regulations: The Federal rules restrict any use of the information to criminally investigate or prosecute any alcohol or drug abuse patient.[facility] HospitalIn the event this information is protected by the Federal Confidentiality of Alcohol and Drug Abuse Patient Records regulations: The Federal rules restrict any use of the information to criminally investigate or prosecute any alcohol or drug abuse patient.[facility] HospitalIn the event this information is protected by the Federal Confidentiality of Alcohol and Drug Abuse Patient Records regulations: The Federal rules restrict any use of the information to criminally investigate or prosecute any alcohol or drug abuse patient.[facility] HospitalIn the event this information is protected by the Federal Confidentiality of Alcohol and Drug Abuse Patient Records regulations: The Federal rules restrict any use of the information to criminally investigate or prosecute any alcohol or drug abuse patient.[facility] HospitalIn the event this information is protected by the Federal Confidentiality of Alcohol and Drug Abuse Patient Records regulations: The Federal rules restrict any use of the information to criminally investigate or prosecute any alcohol or drug abuse patient.[facility] HospitalIn the event this information is protected by the Federal Confidentiality of Alcohol and Drug Abuse Patient Records regulations: The Federal rules restrict any use of the information to criminally investigate or prosecute any alcohol or drug abuse patient.[facility] HospitalIn the event this information is protected by the Federal Confidentiality of Alcohol and Drug Abuse Patient Records regulations: The Federal rules restrict any use of the information to criminally investigate or prosecute any alcohol or drug abuse patient.[facility] HospitalIn the event this information is protected by the Federal Confidentiality of Alcohol and Drug Abuse Patient Records regulations: The Federal rules restrict any use of the information to criminally investigate or prosecute any alcohol or drug abuse patient.[facility] HospitalIn the event this information is protected by the Federal Confidentiality of Alcohol and Drug Abuse Patient Records regulations: The Federal rules restrict any use of the information to criminally investigate or prosecute any alcohol or drug abuse patient.[facility] HospitalIn the event this information is protected by the Federal Confidentiality of Alcohol and Drug Abuse Patient Records regulations: The Federal rules restrict any use of the information to criminally investigate or prosecute any alcohol or drug abuse patient.[facility] HospitalIn the event this information is protected by the Federal Confidentiality of Alcohol and Drug Abuse Patient Records regulations: The Federal rules restrict any use of the information to criminally investigate or prosecute any alcohol or drug abuse patient.[facility] HospitalIn the event this information is protected by the Federal Confidentiality of Alcohol and Drug Abuse Patient Records regulations: The Federal rules restrict any use of the information to criminally investigate or prosecute any alcohol or drug abuse patient.[facility] HospitalIn the event this information is protected by the Federal Confidentiality of Alcohol and Drug Abuse Patient Records regulations: The Federal rules restrict any use of the information to criminally investigate or prosecute any alcohol or drug abuse patient.[facility] HospitalIn the event this information is protected by the Federal Confidentiality of Alcohol and Drug Abuse Patient Records regulations: The Federal rules restrict any use of the information to criminally investigate or prosecute any alcohol or drug abuse patient.[facility] HospitalIn the event this information is protected by the Federal Confidentiality of Alcohol and Drug Abuse Patient Records regulations: The Federal rules restrict any use of the information to criminally investigate or prosecute any alcohol or drug abuse patient.[facility] HospitalIn the event this information is protected by the Federal Confidentiality of Alcohol and Drug Abuse Patient Records regulations: The Federal rules restrict any use of the information to criminally investigate or prosecute any alcohol or drug abuse patient.[facility] HospitalIn the event this information is protected by the Federal Confidentiality of Alcohol and Drug Abuse Patient Records regulations: The Federal rules restrict any use of the information to criminally investigate or prosecute any alcohol or drug abuse patient.[facility] HospitalIn the event this information is protected by the Federal Confidentiality of Alcohol and Drug Abuse Patient Records regulations: The Federal rules restrict any use of the information to criminally investigate or prosecute any alcohol or drug abuse patient.[facility] HospitalIn the event this information is protected by the Federal Confidentiality of Alcohol and Drug Abuse Patient Records regulations: The Federal rules restrict any use of the information to criminally investigate or prosecute any alcohol or drug abuse patient.[facility] HospitalIn the event this information is protected by the Federal Confidentiality of Alcohol and Drug Abuse Patient Records regulations: The Federal rules restrict any use of the information to criminally investigate or prosecute any alcohol or drug abuse patient.[facility] HospitalIn the event this information is protected by the Federal Confidentiality of Alcohol and Drug Abuse Patient Records regulations: The Federal rules restrict any use of the information to criminally investigate or prosecute any alcohol or drug abuse patient.[facility] HospitalIn the event this information is protected by the Federal Confidentiality of Alcohol and Drug Abuse Patient Records regulations: The Federal rules restrict any use of the information to criminally investigate or prosecute any alcohol or drug abuse patient.[facility] HospitalIn the event this information is protected by the Federal Confidentiality of Alcohol and Drug Abuse Patient Records regulations: The Federal rules restrict any use of the information to criminally investigate or prosecute any alcohol or drug abuse patient.[facility] HospitalIn the event this information is protected by the Federal Confidentiality of Alcohol and Drug Abuse Patient Records regulations: The Federal rules restrict any use of the information to criminally investigate or prosecute any alcohol or drug abuse patient.[facility] HospitalIn the event this information is protected by the Federal Confidentiality of Alcohol and Drug Abuse Patient Records regulations: The Federal rules restrict any use of the information to criminally investigate or prosecute any alcohol or drug abuse patient.[facility] HospitalIn the event this information is protected by the Federal Confidentiality of Alcohol and Drug Abuse Patient Records regulations: The Federal rules restrict any use of the information to criminally investigate or prosecute any alcohol or drug abuse patient.[facility] HospitalIn the event this information is protected by the Federal Confidentiality of Alcohol and Drug Abuse Patient Records regulations: The Federal rules restrict any use of the information to criminally investigate or prosecute any alcohol or drug abuse patient.[facility] HospitalIn the event this information is protected by the Federal Confidentiality of Alcohol and Drug Abuse Patient Records regulations: The Federal rules restrict any use of the information to criminally investigate or prosecute any alcohol or drug abuse patient.[facility] HospitalIn the event this information is protected by the Federal Confidentiality of Alcohol and Drug Abuse Patient Records regulations: The Federal rules restrict any use of the information to criminally investigate or prosecute any alcohol or drug abuse patient.[facility] HospitalIn the event this information is protected by the Federal Confidentiality of Alcohol and Drug Abuse Patient Records regulations: The Federal rules restrict any use of the information to criminally investigate or prosecute any alcohol or drug abuse patient.[facility] HospitalIn the event this information is protected by the Federal Confidentiality of Alcohol and Drug Abuse Patient Records regulations: The Federal rules restrict any use of the information to criminally investigate or prosecute any alcohol or drug abuse patient.[facility] HospitalIn the event this information is protected by the Federal Confidentiality of Alcohol and Drug Abuse Patient Records regulations: The Federal rules restrict any use of the information to criminally investigate or prosecute any alcohol or drug abuse patient.[facility] HospitalIn the event this information is protected by the Federal Confidentiality of Alcohol and Drug Abuse Patient Records regulations: The Federal rules restrict any use of the information to criminally investigate or prosecute any alcohol or drug abuse patient.[facility] HospitalIn the event this information is protected by the Federal Confidentiality of Alcohol and Drug Abuse Patient Records regulations: The Federal rules restrict any use of the information to criminally investigate or prosecute any alcohol or drug abuse patient.[facility] HospitalIn the event this information is protected by the Federal Confidentiality of Alcohol and Drug Abuse Patient Records regulations: The Federal rules restrict any use of the information to criminally investigate or prosecute any alcohol or drug abuse patient.[facility] HospitalIn the event this information is protected by the Federal Confidentiality of Alcohol and Drug Abuse Patient Records regulations: The Federal rules restrict any use of the information to criminally investigate or prosecute any alcohol or drug abuse patient.[facility] HospitalIn the event this information is protected by the Federal Confidentiality of Alcohol and Drug Abuse Patient Records regulations: The Federal rules restrict any use of the information to criminally investigate or prosecute any alcohol or drug abuse patient.[facility] HospitalIn the event this information is protected by the Federal Confidentiality of Alcohol and Drug Abuse Patient Records regulations: The Federal rules restrict any use of the information to criminally investigate or prosecute any alcohol or drug abuse patient.[facility] HospitalIn the event this information is protected by the Federal Confidentiality of Alcohol and Drug Abuse Patient Records regulations: The Federal rules restrict any use of the information to criminally investigate or prosecute any alcohol or drug abuse patient.[facility] HospitalIn the event this information is protected by the Federal Confidentiality of Alcohol and Drug Abuse Patient Records regulations: The Federal rules restrict any use of the information to criminally investigate or prosecute any alcohol or drug abuse patient.[facility] HospitalIn the event this information is protected by the Federal Confidentiality of Alcohol and Drug Abuse Patient Records regulations: The Federal rules restrict any use of the information to criminally investigate or prosecute any alcohol or drug abuse patient.[facility] HospitalIn the event this information is protected by the Federal Confidentiality of Alcohol and Drug Abuse Patient Records regulations: The Federal rules restrict any use of the information to criminally investigate or prosecute any alcohol or drug abuse patient.[facility] HospitalIn the event this information is protected by the Federal Confidentiality of Alcohol and Drug Abuse Patient Records regulations: The Federal rules restrict any use of the information to criminally investigate or prosecute any alcohol or drug abuse patient.[facility] HospitalIn the event this information is protected by the Federal Confidentiality of Alcohol and Drug Abuse Patient Records regulations: The Federal rules restrict any use of the information to criminally investigate or prosecute any alcohol or drug abuse patient.[facility] HospitalIn the event this information is protected by the Federal Confidentiality of Alcohol and Drug Abuse Patient Records regulations: The Federal rules restrict any use of the information to criminally investigate or prosecute any alcohol or drug abuse patient.[facility] HospitalIn the event this information is protected by the Federal Confidentiality of Alcohol and Drug Abuse Patient Records regulations: The Federal rules restrict any use of the information to criminally investigate or prosecute any alcohol or drug abuse patient.[facility] HospitalIn the event this information is protected by the Federal Confidentiality of Alcohol and Drug Abuse Patient Records regulations: The Federal rules restrict any use of the information to criminally investigate or prosecute any alcohol or drug abuse patient.[facility] HospitalIn the event this information is protected by the Federal Confidentiality of Alcohol and Drug Abuse Patient Records regulations: The Federal rules restrict any use of the information to criminally investigate or prosecute any alcohol or drug abuse patient.[facility] HospitalIn the event this information is protected by the Federal Confidentiality of Alcohol and Drug Abuse Patient Records regulations: The Federal rules restrict any use of the information to criminally investigate or prosecute any alcohol or drug abuse patient.[facility] HospitalIn the event this information is protected by the Federal Confidentiality of Alcohol and Drug Abuse Patient Records regulations: The Federal rules restrict any use of the information to criminally investigate or prosecute any alcohol or drug abuse patient.[facility] HospitalIn the event this information is protected by the Federal Confidentiality of Alcohol and Drug Abuse Patient Records regulations: The Federal rules restrict any use of the information to criminally investigate or prosecute any alcohol or drug abuse patient.[facility] HospitalIn the event this information is protected by the Federal Confidentiality of Alcohol and Drug Abuse Patient Records regulations: The Federal rules restrict any use of the information to criminally investigate or prosecute any alcohol or drug abuse patient.[facility] HospitalIn the event this information is protected by the Federal Confidentiality of Alcohol and Drug Abuse Patient Records regulations: The Federal rules restrict any use of the information to criminally investigate or prosecute any alcohol or drug abuse patient.[facility] HospitalIn the event this information is protected by the Federal Confidentiality of Alcohol and Drug Abuse Patient Records regulations: The Federal rules restrict any use of the information to criminally investigate or prosecute any alcohol or drug abuse patient.[facility] HospitalIn the event this information is protected by the Federal Confidentiality of Alcohol and Drug Abuse Patient Records regulations: The Federal rules restrict any use of the information to criminally investigate or prosecute any alcohol or drug abuse patient.[facility] HospitalIn the event this information is protected by the Federal Confidentiality of Alcohol and Drug Abuse Patient Records regulations: The Federal rules restrict any use of the information to criminally investigate or prosecute any alcohol or drug abuse patient.[facility] HospitalIn the event this information is protected by the Federal Confidentiality of Alcohol and Drug Abuse Patient Records regulations: The Federal rules restrict any use of the information to criminally investigate or prosecute any alcohol or drug abuse patient.[facility] HospitalIn the event this information is protected by the Federal Confidentiality of Alcohol and Drug Abuse Patient Records regulations: The Federal rules restrict any use of the information to criminally investigate or prosecute any alcohol or drug abuse patient.[facility] HospitalIn the event this information is protected by the Federal Confidentiality of Alcohol and Drug Abuse Patient Records regulations: The Federal rules restrict any use of the information to criminally investigate or prosecute any alcohol or drug abuse patient.[facility] HospitalIn the event this information is protected by the Federal Confidentiality of Alcohol and Drug Abuse Patient Records regulations: The Federal rules restrict any use of the information to criminally investigate or prosecute any alcohol or drug abuse patient.[facility] HospitalIn the event this information is protected by the Federal Confidentiality of Alcohol and Drug Abuse Patient Records regulations: The Federal rules restrict any use of the information to criminally investigate or prosecute any alcohol or drug abuse patient.[facility] HospitalIn the event this information is protected by the Federal Confidentiality of Alcohol and Drug Abuse Patient Records regulations: The Federal rules restrict any use of the information to criminally investigate or prosecute any alcohol or drug abuse patient.[facility] HospitalIn the event this information is protected by the Federal Confidentiality of Alcohol and Drug Abuse Patient Records regulations: The Federal rules restrict any use of the information to criminally investigate or prosecute any alcohol or drug abuse patient.[facility] HospitalIn the event this information is protected by the Federal Confidentiality of Alcohol and Drug Abuse Patient Records regulations: The Federal rules restrict any use of the information to criminally investigate or prosecute any alcohol or drug abuse patient.[facility] HospitalIn the event this information is protected by the Federal Confidentiality of Alcohol and Drug Abuse Patient Records regulations: The Federal rules restrict any use of the information to criminally investigate or prosecute any alcohol or drug abuse patient.[facility] HospitalIn the event this information is protected by the Federal Confidentiality of Alcohol and Drug Abuse Patient Records regulations: The Federal rules restrict any use of the information to criminally investigate or prosecute any alcohol or drug abuse patient.[facility] HospitalIn the event this information is protected by the Federal Confidentiality of Alcohol and Drug Abuse Patient Records regulations: The Federal rules restrict any use of the information to criminally investigate or prosecute any alcohol or drug abuse patient.[facility] HospitalIn the event this information is protected by the Federal Confidentiality of Alcohol and Drug Abuse Patient Records regulations: The Federal rules restrict any use of the information to criminally investigate or prosecute any alcohol or drug abuse patient.[facility] HospitalIn the event this information is protected by the Federal Confidentiality of Alcohol and Drug Abuse Patient Records regulations: The Federal rules restrict any use of the information to criminally investigate or prosecute any alcohol or drug abuse patient.[facility] HospitalIn the event this information is protected by the Federal Confidentiality of Alcohol and Drug Abuse Patient Records regulations: The Federal rules restrict any use of the information to criminally investigate or prosecute any alcohol or drug abuse patient.[facility] HospitalIn the event this information is protected by the Federal Confidentiality of Alcohol and Drug Abuse Patient Records regulations: The Federal rules restrict any use of the information to criminally investigate or prosecute any alcohol or drug abuse patient.[facility] HospitalIn the event this information is protected by the Federal Confidentiality of Alcohol and Drug Abuse Patient Records regulations: The Federal rules restrict any use of the information to criminally investigate or prosecute any alcohol or drug abuse patient.[facility] HospitalIn the event this information is protected by the Federal Confidentiality of Alcohol and Drug Abuse Patient Records regulations: The Federal rules restrict any use of the information to criminally investigate or prosecute any alcohol or drug abuse patient.[facility] HospitalIn the event this information is protected by the Federal Confidentiality of Alcohol and Drug Abuse Patient Records regulations: The Federal rules restrict any use of the information to criminally investigate or prosecute any alcohol or drug abuse patient.[facility] HospitalIn the event this information is protected by the Federal Confidentiality of Alcohol and Drug Abuse Patient Records regulations: The Federal rules restrict any use of the information to criminally investigate or prosecute any alcohol or drug abuse patient.[facility] HospitalIn the event this information is protected by the Federal Confidentiality of Alcohol and Drug Abuse Patient Records regulations: The Federal rules restrict any use of the information to criminally investigate or prosecute any alcohol or drug abuse patient.[facility] HospitalIn the event this information is protected by the Federal Confidentiality of Alcohol and Drug Abuse Patient Records regulations: The Federal rules restrict any use of the information to criminally investigate or prosecute any alcohol or drug abuse patient.[facility] HospitalIn the event this information is protected by the Federal Confidentiality of Alcohol and Drug Abuse Patient Records regulations: The Federal rules restrict any use of the information to criminally investigate or prosecute any alcohol or drug abuse patient.[facility] HospitalIn the event this information is protected by the Federal Confidentiality of Alcohol and Drug Abuse Patient Records regulations: The Federal rules restrict any use of the information to criminally investigate or prosecute any alcohol or drug abuse patient.[facility] HospitalIn the event this information is protected by the Federal Confidentiality of Alcohol and Drug Abuse Patient Records regulations: The Federal rules restrict any use of the information to criminally investigate or prosecute any alcohol or drug abuse patient.[facility] HospitalIn the event this information is protected by the Federal Confidentiality of Alcohol and Drug Abuse Patient Records regulations: The Federal rules restrict any use of the information to criminally investigate or prosecute any alcohol or drug abuse patient.[facility] HospitalIn the event this information is protected by the Federal Confidentiality of Alcohol and Drug Abuse Patient Records regulations: The Federal rules restrict any use of the information to criminally investigate or prosecute any alcohol or drug abuse patient.[facility] HospitalIn the event this information is protected by the Federal Confidentiality of Alcohol and Drug Abuse Patient Records regulations: The Federal rules restrict any use of the information to criminally investigate or prosecute any alcohol or drug abuse patient.[facility] HospitalIn the event this information is protected by the Federal Confidentiality of Alcohol and Drug Abuse Patient Records regulations: The Federal rules restrict any use of the information to criminally investigate or prosecute any alcohol or drug abuse patient.[facility] HospitalIn the event this information is protected by the Federal Confidentiality of Alcohol and Drug Abuse Patient Records regulations: The Federal rules restrict any use of the information to criminally investigate or prosecute any alcohol or drug abuse patient.[facility] HospitalIn the event this information is protected by the Federal Confidentiality of Alcohol and Drug Abuse Patient Records regulations: The Federal rules restrict any use of the information to criminally investigate or prosecute any alcohol or drug abuse patient.[facility] HospitalIn the event this information is protected by the Federal Confidentiality of Alcohol and Drug Abuse Patient Records regulations: The Federal rules restrict any use of the information to criminally investigate or prosecute any alcohol or drug abuse patient.[facility] HospitalIn the event this information is protected by the Federal Confidentiality of Alcohol and Drug Abuse Patient Records regulations: The Federal rules restrict any use of the information to criminally investigate or prosecute any alcohol or drug abuse patient.[facility] HospitalIn the event this information is protected by the Federal Confidentiality of Alcohol and Drug Abuse Patient Records regulations: The Federal rules restrict any use of the information to criminally investigate or prosecute any alcohol or drug abuse patient.[facility] HospitalIn the event this information is protected by the Federal Confidentiality of Alcohol and Drug Abuse Patient Records regulations: The Federal rules restrict any use of the information to criminally investigate or prosecute any alcohol or drug abuse patient.[facility] HospitalIn the event this information is protected by the Federal Confidentiality of Alcohol and Drug Abuse Patient Records regulations: The Federal rules restrict any use of the information to criminally investigate or prosecute any alcohol or drug abuse patient.[facility] HospitalIn the event this information is protected by the Federal Confidentiality of Alcohol and Drug Abuse Patient Records regulations: The Federal rules restrict any use of the information to criminally investigate or prosecute any alcohol or drug abuse patient.[facility] HospitalIn the event this information is protected by the Federal Confidentiality of Alcohol and Drug Abuse Patient Records regulations: The Federal rules restrict any use of the information to criminally investigate or prosecute any alcohol or drug abuse patient.[facility] HospitalIn the event this information is protected by the Federal Confidentiality of Alcohol and Drug Abuse Patient Records regulations: The Federal rules restrict any use of the information to criminally investigate or prosecute any alcohol or drug abuse patient.[facility] HospitalIn the event this information is protected by the Federal Confidentiality of Alcohol and Drug Abuse Patient Records regulations: The Federal rules restrict any use of the information to criminally investigate or prosecute any alcohol or drug abuse patient.[facility] HospitalIn the event this information is protected by the Federal Confidentiality of Alcohol and Drug Abuse Patient Records regulations: The Federal rules restrict any use of the information to criminally investigate or prosecute any alcohol or drug abuse patient.[facility] HospitalIn the event this information is protected by the Federal Confidentiality of Alcohol and Drug Abuse Patient Records regulations: The Federal rules restrict any use of the information to criminally investigate or prosecute any alcohol or drug abuse patient.[facility] HospitalIn the event this information is protected by the Federal Confidentiality of Alcohol and Drug Abuse Patient Records regulations: The Federal rules restrict any use of the information to criminally investigate or prosecute any alcohol or drug abuse patient.[facility] HospitalIn the event this information is protected by the Federal Confidentiality of Alcohol and Drug Abuse Patient Records regulations: The Federal rules restrict any use of the information to criminally investigate or prosecute any alcohol or drug abuse patient.[facility] HospitalIn the event this information is protected by the Federal Confidentiality of Alcohol and Drug Abuse Patient Records regulations: The Federal rules restrict any use of the information to criminally investigate or prosecute any alcohol or drug abuse patient.[facility] HospitalIn the event this information is protected by the Federal Confidentiality of Alcohol and Drug Abuse Patient Records regulations: The Federal rules restrict any use of the information to criminally investigate or prosecute any alcohol or drug abuse patient.[facility] HospitalIn the event this information is protected by the Federal Confidentiality of Alcohol and Drug Abuse Patient Records regulations: The Federal rules restrict any use of the information to criminally investigate or prosecute any alcohol or drug abuse patient.[facility] HospitalIn the event this information is protected by the Federal Confidentiality of Alcohol and Drug Abuse Patient Records regulations: The Federal rules restrict any use of the information to criminally investigate or prosecute any alcohol or drug abuse patient.[facility] HospitalIn the event this information is protected by the Federal Confidentiality of Alcohol and Drug Abuse Patient Records regulations: The Federal rules restrict any use of the information to criminally investigate or prosecute any alcohol or drug abuse patient.[facility] HospitalIn the event this information is protected by the Federal Confidentiality of Alcohol and Drug Abuse Patient Records regulations: The Federal rules restrict any use of the information to criminally investigate or prosecute any alcohol or drug abuse patient.[facility] HospitalIn the event this information is protected by the Federal Confidentiality of Alcohol and Drug Abuse Patient Records regulations: The Federal rules restrict any use of the information to criminally investigate or prosecute any alcohol or drug abuse patient.[facility] HospitalIn the event this information is protected by the Federal Confidentiality of Alcohol and Drug Abuse Patient Records regulations: The Federal rules restrict any use of the information to criminally investigate or prosecute any alcohol or drug abuse patient.[facility] HospitalIn the event this information is protected by the Federal Confidentiality of Alcohol and Drug Abuse Patient Records regulations: The Federal rules restrict any use of the information to criminally investigate or prosecute any alcohol or drug abuse patient.[facility] HospitalIn the event this information is protected by the Federal Confidentiality of Alcohol and Drug Abuse Patient Records regulations: The Federal rules restrict any use of the information to criminally investigate or prosecute any alcohol or drug abuse patient.[facility] HospitalIn the event this information is protected by the Federal Confidentiality of Alcohol and Drug Abuse Patient Records regulations: The Federal rules restrict any use of the information to criminally investigate or prosecute any alcohol or drug abuse patient.[facility] HospitalIn the event this information is protected by the Federal Confidentiality of Alcohol and Drug Abuse Patient Records regulations: The Federal rules restrict any use of the information to criminally investigate or prosecute any alcohol or drug abuse patient.[facility] HospitalIn the event this information is protected by the Federal Confidentiality of Alcohol and Drug Abuse Patient Records regulations: The Federal rules restrict any use of the information to criminally investigate or prosecute any alcohol or drug abuse patient.[facility] HospitalIn the event this information is protected by the Federal Confidentiality of Alcohol and Drug Abuse Patient Records regulations: The Federal rules restrict any use of the information to criminally investigate or prosecute any alcohol or drug abuse patient.[facility] HospitalIn the event this information is protected by the Federal Confidentiality of Alcohol and Drug Abuse Patient Records regulations: The Federal rules restrict any use of the information to criminally investigate or prosecute any alcohol or drug abuse patient.[facility] HospitalIn the event this information is protected by the Federal Confidentiality of Alcohol and Drug Abuse Patient Records regulations: The Federal rules restrict any use of the information to criminally investigate or prosecute any alcohol or drug abuse patient.[facility] HospitalIn the event this information is protected by the Federal Confidentiality of Alcohol and Drug Abuse Patient Records regulations: The Federal rules restrict any use of the information to criminally investigate or prosecute any alcohol or drug abuse patient.[facility] HospitalIn the event this information is protected by the Federal Confidentiality of Alcohol and Drug Abuse Patient Records regulations: The Federal rules restrict any use of the information to criminally investigate or prosecute any alcohol or drug abuse patient.[facility] HospitalIn the event this information is protected by the Federal Confidentiality of Alcohol and Drug Abuse Patient Records regulations: The Federal rules restrict any use of the information to criminally investigate or prosecute any alcohol or drug abuse patient.[facility] HospitalIn the event this information is protected by the Federal Confidentiality of Alcohol and Drug Abuse Patient Records regulations: The Federal rules restrict any use of the information to criminally investigate or prosecute any alcohol or drug abuse patient.[facility] HospitalIn the event this information is protected by the Federal Confidentiality of Alcohol and Drug Abuse Patient Records regulations: The Federal rules restrict any use of the information to criminally investigate or prosecute any alcohol or drug abuse patient.[facility] HospitalIn the event this information is protected by the Federal Confidentiality of Alcohol and Drug Abuse Patient Records regulations: The Federal rules restrict any use of the information to criminally investigate or prosecute any alcohol or drug abuse patient.[facility] HospitalIn the event this information is protected by the Federal Confidentiality of Alcohol and Drug Abuse Patient Records regulations: The Federal rules restrict any use of the information to criminally investigate or prosecute any alcohol or drug abuse patient.[facility] HospitalIn the event this information is protected by the Federal Confidentiality of Alcohol and Drug Abuse Patient Records regulations: The Federal rules restrict any use of the information to criminally investigate or prosecute any alcohol or drug abuse patient.[facility] HospitalIn the event this information is protected by the Federal Confidentiality of Alcohol and Drug Abuse Patient Records regulations: The Federal rules restrict any use of the information to criminally investigate or prosecute any alcohol or drug abuse patient.[facility] HospitalIn the event this information is protected by the Federal Confidentiality of Alcohol and Drug Abuse Patient Records regulations: The Federal rules restrict any use of the information to criminally investigate or prosecute any alcohol or drug abuse patient.[facility] HospitalIn the event this information is protected by the Federal Confidentiality of Alcohol and Drug Abuse Patient Records regulations: The Federal rules restrict any use of the information to criminally investigate or prosecute any alcohol or drug abuse patient.[facility] HospitalIn the event this information is protected by the Federal Confidentiality of Alcohol and Drug Abuse Patient Records regulations: The Federal rules restrict any use of the information to criminally investigate or prosecute any alcohol or drug abuse patient.[facility] HospitalIn the event this information is protected by the Federal Confidentiality of Alcohol and Drug Abuse Patient Records regulations: The Federal rules restrict any use of the information to criminally investigate or prosecute any alcohol or drug abuse patient.[facility] HospitalIn the event this information is protected by the Federal Confidentiality of Alcohol and Drug Abuse Patient Records regulations: The Federal rules restrict any use of the information to criminally investigate or prosecute any alcohol or drug abuse patient.[facility] HospitalIn the event this information is protected by the Federal Confidentiality of Alcohol and Drug Abuse Patient Records regulations: The Federal rules restrict any use of the information to criminally investigate or prosecute any alcohol or drug abuse patient.[facility] HospitalIn the event this information is protected by the Federal Confidentiality of Alcohol and Drug Abuse Patient Records regulations: The Federal rules restrict any use of the information to criminally investigate or prosecute any alcohol or drug abuse patient.[facility] HospitalIn the event this information is protected by the Federal Confidentiality of Alcohol and Drug Abuse Patient Records regulations: The Federal rules restrict any use of the information to criminally investigate or prosecute any alcohol or drug abuse patient.[facility] HospitalIn the event this information is protected by the Federal Confidentiality of Alcohol and Drug Abuse Patient Records regulations: The Federal rules restrict any use of the information to criminally investigate or prosecute any alcohol or drug abuse patient.[facility] HospitalIn the event this information is protected by the Federal Confidentiality of Alcohol and Drug Abuse Patient Records regulations: The Federal rules restrict any use of the information to criminally investigate or prosecute any alcohol or drug abuse patient.[facility] HospitalIn the event this information is protected by the Federal Confidentiality of Alcohol and Drug Abuse Patient Records regulations: The Federal rules restrict any use of the information to criminally investigate or prosecute any alcohol or drug abuse patient.[facility] HospitalIn the event this information is protected by the Federal Confidentiality of Alcohol and Drug Abuse Patient Records regulations: The Federal rules restrict any use of the information to criminally investigate or prosecute any alcohol or drug abuse patient.[facility] HospitalIn the event this information is protected by the Federal Confidentiality of Alcohol and Drug Abuse Patient Records regulations: The Federal rules restrict any use of the information to criminally investigate or prosecute any alcohol or drug abuse patient.[facility] HospitalIn the event this information is protected by the Federal Confidentiality of Alcohol and Drug Abuse Patient Records regulations: The Federal rules restrict any use of the information to criminally investigate or prosecute any alcohol or drug abuse patient.[facility] HospitalIn the event this information is protected by the Federal Confidentiality of Alcohol and Drug Abuse Patient Records regulations: The Federal rules restrict any use of the information to criminally investigate or prosecute any alcohol or drug abuse patient.[facility] HospitalIn the event this information is protected by the Federal Confidentiality of Alcohol and Drug Abuse Patient Records regulations: The Federal rules restrict any use of the information to criminally investigate or prosecute any alcohol or drug abuse patient.[facility] HospitalIn the event this information is protected by the Federal Confidentiality of Alcohol and Drug Abuse Patient Records regulations: The Federal rules restrict any use of the information to criminally investigate or prosecute any alcohol or drug abuse patient.[facility] HospitalIn the event this information is protected by the Federal Confidentiality of Alcohol and Drug Abuse Patient Records regulations: The Federal rules restrict any use of the information to criminally investigate or prosecute any alcohol or drug abuse patient.[facility] HospitalIn the event this information is protected by the Federal Confidentiality of Alcohol and Drug Abuse Patient Records regulations: The Federal rules restrict any use of the information to criminally investigate or prosecute any alcohol or drug abuse patient.[facility] HospitalIn the event this information is protected by the Federal Confidentiality of Alcohol and Drug Abuse Patient Records regulations: The Federal rules restrict any use of the information to criminally investigate or prosecute any alcohol or drug abuse patient.[facility] HospitalIn the event this information is protected by the Federal Confidentiality of Alcohol and Drug Abuse Patient Records regulations: The Federal rules restrict any use of the information to criminally investigate or prosecute any alcohol or drug abuse patient.[facility] HospitalIn the event this information is protected by the Federal Confidentiality of Alcohol and Drug Abuse Patient Records regulations: The Federal rules restrict any use of the information to criminally investigate or prosecute any alcohol or drug abuse patient.[facility] HospitalIn the event this information is protected by the Federal Confidentiality of Alcohol and Drug Abuse Patient Records regulations: The Federal rules restrict any use of the information to criminally investigate or prosecute any alcohol or drug abuse patient.[facility] HospitalIn the event this information is protected by the Federal Confidentiality of Alcohol and Drug Abuse Patient Records regulations: The Federal rules restrict any use of the information to criminally investigate or prosecute any alcohol or drug abuse patient.[facility] HospitalIn the event this information is protected by the Federal Confidentiality of Alcohol and Drug Abuse Patient Records regulations: The Federal rules restrict any use of the information to criminally investigate or prosecute any alcohol or drug abuse patient.[facility] HospitalIn the event this information is protected by the Federal Confidentiality of Alcohol and Drug Abuse Patient Records regulations: The Federal rules restrict any use of the information to criminally investigate or prosecute any alcohol or drug abuse patient.[facility] HospitalIn the event this information is protected by the Federal Confidentiality of Alcohol and Drug Abuse Patient Records regulations: The Federal rules restrict any use of the information to criminally investigate or prosecute any alcohol or drug abuse patient.[facility] HospitalIn the event this information is protected by the Federal Confidentiality of Alcohol and Drug Abuse Patient Records regulations: The Federal rules restrict any use of the information to criminally investigate or prosecute any alcohol or drug abuse patient.[facility] HospitalIn the event this information is protected by the Federal Confidentiality of Alcohol and Drug Abuse Patient Records regulations: The Federal rules restrict any use of the information to criminally investigate or prosecute any alcohol or drug abuse patient.[facility] HospitalIn the event this information is protected by the Federal Confidentiality of Alcohol and Drug Abuse Patient Records regulations: The Federal rules restrict any use of the information to criminally investigate or prosecute any alcohol or drug abuse patient.[facility] HospitalIn the event this information is protected by the Federal Confidentiality of Alcohol and Drug Abuse Patient Records regulations: The Federal rules restrict any use of the information to criminally investigate or prosecute any alcohol or drug abuse patient.[facility] HospitalIn the event this information is protected by the Federal Confidentiality of Alcohol and Drug Abuse Patient Records regulations: The Federal rules restrict any use of the information to criminally investigate or prosecute any alcohol or drug abuse patient.[facility] HospitalIn the event this information is protected by the Federal Confidentiality of Alcohol and Drug Abuse Patient Records regulations: The Federal rules restrict any use of the information to criminally investigate or prosecute any alcohol or drug abuse patient.[facility] HospitalIn the event this information is protected by the Federal Confidentiality of Alcohol and Drug Abuse Patient Records regulations: The Federal rules restrict any use of the information to criminally investigate or prosecute any alcohol or drug abuse patient.[facility] HospitalIn the event this information is protected by the Federal Confidentiality of Alcohol and Drug Abuse Patient Records regulations: The Federal rules restrict any use of the information to criminally investigate or prosecute any alcohol or drug abuse patient.[facility] HospitalIn the event this information is protected by the Federal Confidentiality of Alcohol and Drug Abuse Patient Records regulations: The Federal rules restrict any use of the information to criminally investigate or prosecute any alcohol or drug abuse patient.[facility] HospitalIn the event this information is protected by the Federal Confidentiality of Alcohol and Drug Abuse Patient Records regulations: The Federal rules restrict any use of the information to criminally investigate or prosecute any alcohol or drug abuse patient.[facility] HospitalIn the event this information is protected by the Federal Confidentiality of Alcohol and Drug Abuse Patient Records regulations: The Federal rules restrict any use of the information to criminally investigate or prosecute any alcohol or drug abuse patient.[facility] HospitalIn the event this information is protected by the Federal Confidentiality of Alcohol and Drug Abuse Patient Records regulations: The Federal rules restrict any use of the information to criminally investigate or prosecute any alcohol or drug abuse patient.[facility] HospitalIn the event this information is protected by the Federal Confidentiality of Alcohol and Drug Abuse Patient Records regulations: The Federal rules restrict any use of the information to criminally investigate or prosecute any alcohol or drug abuse patient.[facility] HospitalIn the event this information is protected by the Federal Confidentiality of Alcohol and Drug Abuse Patient Records regulations: The Federal rules restrict any use of the information to criminally investigate or prosecute any alcohol or drug abuse patient.[facility] HospitalIn the event this information is protected by the Federal Confidentiality of Alcohol and Drug Abuse Patient Records regulations: The Federal rules restrict any use of the information to criminally investigate or prosecute any alcohol or drug abuse patient.[facility] HospitalIn the event this information is protected by the Federal Confidentiality of Alcohol and Drug Abuse Patient Records regulations: The Federal rules restrict any use of the information to criminally investigate or prosecute any alcohol or drug abuse patient.[facility] HospitalIn the event this information is protected by the Federal Confidentiality of Alcohol and Drug Abuse Patient Records regulations: The Federal rules restrict any use of the information to criminally investigate or prosecute any alcohol or drug abuse patient.[facility] HospitalIn the event this information is protected by the Federal Confidentiality of Alcohol and Drug Abuse Patient Records regulations: The Federal rules restrict any use of the information to criminally investigate or prosecute any alcohol or drug abuse patient.[facility] HospitalIn the event this information is protected by the Federal Confidentiality of Alcohol and Drug Abuse Patient Records regulations: The Federal rules restrict any use of the information to criminally investigate or prosecute any alcohol or drug abuse patient.[facility] HospitalIn the event this information is protected by the Federal Confidentiality of Alcohol and Drug Abuse Patient Records regulations: The Federal rules restrict any use of the information to criminally investigate or prosecute any alcohol or drug abuse patient.[facility] HospitalIn the event this information is protected by the Federal Confidentiality of Alcohol and Drug Abuse Patient Records regulations: The Federal rules restrict any use of the information to criminally investigate or prosecute any alcohol or drug abuse patient.[facility] HospitalIn the event this information is protected by the Federal Confidentiality of Alcohol and Drug Abuse Patient Records regulations: The Federal rules restrict any use of the information to criminally investigate or prosecute any alcohol or drug abuse patient.[facility] HospitalIn the event this information is protected by the Federal Confidentiality of Alcohol and Drug Abuse Patient Records regulations: The Federal rules restrict any use of the information to criminally investigate or prosecute any alcohol or drug abuse patient.[facility] HospitalIn the event this information is protected by the Federal Confidentiality of Alcohol and Drug Abuse Patient Records regulations: The Federal rules restrict any use of the information to criminally investigate or prosecute any alcohol or drug abuse patient.[facility] HospitalIn the event this information is protected by the Federal Confidentiality of Alcohol and Drug Abuse Patient Records regulations: The Federal rules restrict any use of the information to criminally investigate or prosecute any alcohol or drug abuse patient.[facility] HospitalIn the event this information is protected by the Federal Confidentiality of Alcohol and Drug Abuse Patient Records regulations: The Federal rules restrict any use of the information to criminally investigate or prosecute any alcohol or drug abuse patient.[facility] HospitalIn the event this information is protected by the Federal Confidentiality of Alcohol and Drug Abuse Patient Records regulations: The Federal rules restrict any use of the information to criminally investigate or prosecute any alcohol or drug abuse patient.[facility] HospitalIn the event this information is protected by the Federal Confidentiality of Alcohol and Drug Abuse Patient Records regulations: The Federal rules restrict any use of the information to criminally investigate or prosecute any alcohol or drug abuse patient.[facility] HospitalIn the event this information is protected by the Federal Confidentiality of Alcohol and Drug Abuse Patient Records regulations: The Federal rules restrict any use of the information to criminally investigate or prosecute any alcohol or drug abuse patient.[facility] HospitalIn the event this information is protected by the Federal Confidentiality of Alcohol and Drug Abuse Patient Records regulations: The Federal rules restrict any use of the information to criminally investigate or prosecute any alcohol or drug abuse patient.[facility] HospitalIn the event this information is protected by the Federal Confidentiality of Alcohol and Drug Abuse Patient Records regulations: The Federal rules restrict any use of the information to criminally investigate or prosecute any alcohol or drug abuse patient.[facility] HospitalIn the event this information is protected by the Federal Confidentiality of Alcohol and Drug Abuse Patient Records regulations: The Federal rules restrict any use of the information to criminally investigate or prosecute any alcohol or drug abuse patient.[facility] HospitalIn the event this information is protected by the Federal Confidentiality of Alcohol and Drug Abuse Patient Records regulations: The Federal rules restrict any use of the information to criminally investigate or prosecute any alcohol or drug abuse patient.[facility] HospitalIn the event this information is protected by the Federal Confidentiality of Alcohol and Drug Abuse Patient Records regulations: The Federal rules restrict any use of the information to criminally investigate or prosecute any alcohol or drug abuse patient.[facility] HospitalIn the event this information is protected by the Federal Confidentiality of Alcohol and Drug Abuse Patient Records regulations: The Federal rules restrict any use of the information to criminally investigate or prosecute any alcohol or drug abuse patient.[facility] HospitalIn the event this information is protected by the Federal Confidentiality of Alcohol and Drug Abuse Patient Records regulations: The Federal rules restrict any use of the information to criminally investigate or prosecute any alcohol or drug abuse patient.[facility] HospitalIn the event this information is protected by the Federal Confidentiality of Alcohol and Drug Abuse Patient Records regulations: The Federal rules restrict any use of the information to criminally investigate or prosecute any alcohol or drug abuse patient.[facility] HospitalIn the event this information is protected by the Federal Confidentiality of Alcohol and Drug Abuse Patient Records regulations: The Federal rules restrict any use of the information to criminally investigate or prosecute any alcohol or drug abuse patient.[facility] HospitalIn the event this information is protected by the Federal Confidentiality of Alcohol and Drug Abuse Patient Records regulations: The Federal rules restrict any use of the information to criminally investigate or prosecute any alcohol or drug abuse patient.[facility] HospitalIn the event this information is protected by the Federal Confidentiality of Alcohol and Drug Abuse Patient Records regulations: The Federal rules restrict any use of the information to criminally investigate or prosecute any alcohol or drug abuse patient.[facility] HospitalIn the event this information is protected by the Federal Confidentiality of Alcohol and Drug Abuse Patient Records regulations: The Federal rules restrict any use of the information to criminally investigate or prosecute any alcohol or drug abuse patient.[facility] HospitalIn the event this information is protected by the Federal Confidentiality of Alcohol and Drug Abuse Patient Records regulations: The Federal rules restrict any use of the information to criminally investigate or prosecute any alcohol or drug abuse patient.[facility] HospitalIn the event this information is protected by the Federal Confidentiality of Alcohol and Drug Abuse Patient Records regulations: The Federal rules restrict any use of the information to criminally investigate or prosecute any alcohol or drug abuse patient.[facility] HospitalIn the event this information is protected by the Federal Confidentiality of Alcohol and Drug Abuse Patient Records regulations: The Federal rules restrict any use of the information to criminally investigate or prosecute any alcohol or drug abuse patient.[facility] HospitalIn the event this information is protected by the Federal Confidentiality of Alcohol and Drug Abuse Patient Records regulations: The Federal rules restrict any use of the information to criminally investigate or prosecute any alcohol or drug abuse patient.[facility] HospitalIn the event this information is protected by the Federal Confidentiality of Alcohol and Drug Abuse Patient Records regulations: The Federal rules restrict any use of the information to criminally investigate or prosecute any alcohol or drug abuse patient.[facility] HospitalIn the event this information is protected by the Federal Confidentiality of Alcohol and Drug Abuse Patient Records regulations: The Federal rules restrict any use of the information to criminally investigate or prosecute any alcohol or drug abuse patient.[facility] HospitalIn the event this information is protected by the Federal Confidentiality of Alcohol and Drug Abuse Patient Records regulations: The Federal rules restrict any use of the information to criminally investigate or prosecute any alcohol or drug abuse patient.[facility] HospitalIn the event this information is protected by the Federal Confidentiality of Alcohol and Drug Abuse Patient Records regulations: The Federal rules restrict any use of the information to criminally investigate or prosecute any alcohol or drug abuse patient.[facility] HospitalIn the event this information is protected by the Federal Confidentiality of Alcohol and Drug Abuse Patient Records regulations: The Federal rules restrict any use of the information to criminally investigate or prosecute any alcohol or drug abuse patient.[facility] HospitalIn the event this information is protected by the Federal Confidentiality of Alcohol and Drug Abuse Patient Records regulations: The Federal rules restrict any use of the information to criminally investigate or prosecute any alcohol or drug abuse patient.[facility] HospitalIn the event this information is protected by the Federal Confidentiality of Alcohol and Drug Abuse Patient Records regulations: The Federal rules restrict any use of the information to criminally investigate or prosecute any alcohol or drug abuse patient.[facility] HospitalIn the event this information is protected by the Federal Confidentiality of Alcohol and Drug Abuse Patient Records regulations: The Federal rules restrict any use of the information to criminally investigate or prosecute any alcohol or drug abuse patient.[facility] HospitalIn the event this information is protected by the Federal Confidentiality of Alcohol and Drug Abuse Patient Records regulations: The Federal rules restrict any use of the information to criminally investigate or prosecute any alcohol or drug abuse patient.[facility] HospitalIn the event this information is protected by the Federal Confidentiality of Alcohol and Drug Abuse Patient Records regulations: The Federal rules restrict any use of the information to criminally investigate or prosecute any alcohol or drug abuse patient.[facility] HospitalIn the event this information is protected by the Federal Confidentiality of Alcohol and Drug Abuse Patient Records regulations: The Federal rules restrict any use of the information to criminally investigate or prosecute any alcohol or drug abuse patient.[facility] HospitalIn the event this information is protected by the Federal Confidentiality of Alcohol and Drug Abuse Patient Records regulations: The Federal rules restrict any use of the information to criminally investigate or prosecute any alcohol or drug abuse patient.[facility] HospitalIn the event this information is protected by the Federal Confidentiality of Alcohol and Drug Abuse Patient Records regulations: The Federal rules restrict any use of the information to criminally investigate or prosecute any alcohol or drug abuse patient.[facility] HospitalIn the event this information is protected by the Federal Confidentiality of Alcohol and Drug Abuse Patient Records regulations: The Federal rules restrict any use of the information to criminally investigate or prosecute any alcohol or drug abuse patient.[facility] HospitalIn the event this information is protected by the Federal Confidentiality of Alcohol and Drug Abuse Patient Records regulations: The Federal rules restrict any use of the information to criminally investigate or prosecute any alcohol or drug abuse patient.[facility] HospitalIn the event this information is protected by the Federal Confidentiality of Alcohol and Drug Abuse Patient Records regulations: The Federal rules restrict any use of the information to criminally investigate or prosecute any alcohol or drug abuse patient.[facility] HospitalIn the event this information is protected by the Federal Confidentiality of Alcohol and Drug Abuse Patient Records regulations: The Federal rules restrict any use of the information to criminally investigate or prosecute any alcohol or drug abuse patient.[facility] HospitalIn the event this information is protected by the Federal Confidentiality of Alcohol and Drug Abuse Patient Records regulations: The Federal rules restrict any use of the information to criminally investigate or prosecute any alcohol or drug abuse patient.[facility] HospitalIn the event this information is protected by the Federal Confidentiality of Alcohol and Drug Abuse Patient Records regulations: The Federal rules restrict any use of the information to criminally investigate or prosecute any alcohol or drug abuse patient.[facility] HospitalIn the event this information is protected by the Federal Confidentiality of Alcohol and Drug Abuse Patient Records regulations: The Federal rules restrict any use of the information to criminally investigate or prosecute any alcohol or drug abuse patient.[facility] HospitalIn the event this information is protected by the Federal Confidentiality of Alcohol and Drug Abuse Patient Records regulations: The Federal rules restrict any use of the information to criminally investigate or prosecute any alcohol or drug abuse patient.[facility] HospitalIn the event this information is protected by the Federal Confidentiality of Alcohol and Drug Abuse Patient Records regulations: The Federal rules restrict any use of the information to criminally investigate or prosecute any alcohol or drug abuse patient.[facility] HospitalIn the event this information is protected by the Federal Confidentiality of Alcohol and Drug Abuse Patient Records regulations: The Federal rules restrict any use of the information to criminally investigate or prosecute any alcohol or drug abuse patient.[facility] HospitalIn the event this information is protected by the Federal Confidentiality of Alcohol and Drug Abuse Patient Records regulations: The Federal rules restrict any use of the information to criminally investigate or prosecute any alcohol or drug abuse patient.[facility] HospitalIn the event this information is protected by the Federal Confidentiality of Alcohol and Drug Abuse Patient Records regulations: The Federal rules restrict any use of the information to criminally investigate or prosecute any alcohol or drug abuse patient.[facility] HospitalIn the event this information is protected by the Federal Confidentiality of Alcohol and Drug Abuse Patient Records regulations: The Federal rules restrict any use of the information to criminally investigate or prosecute any alcohol or drug abuse patient.[facility] HospitalIn the event this information is protected by the Federal Confidentiality of Alcohol and Drug Abuse Patient Records regulations: The Federal rules restrict any use of the information to criminally investigate or prosecute any alcohol or drug abuse patient.[facility] HospitalIn the event this information is protected by the Federal Confidentiality of Alcohol and Drug Abuse Patient Records regulations: The Federal rules restrict any use of the information to criminally investigate or prosecute any alcohol or drug abuse patient.[facility] HospitalIn the event this information is protected by the Federal Confidentiality of Alcohol and Drug Abuse Patient Records regulations: The Federal rules restrict any use of the information to criminally investigate or prosecute any alcohol or drug abuse patient.[facility] HospitalIn the event this information is protected by the Federal Confidentiality of Alcohol and Drug Abuse Patient Records regulations: The Federal rules restrict any use of the information to criminally investigate or prosecute any alcohol or drug abuse patient.[facility] HospitalIn the event this information is protected by the Federal Confidentiality of Alcohol and Drug Abuse Patient Records regulations: The Federal rules restrict any use of the information to criminally investigate or prosecute any alcohol or drug abuse patient.[facility] HospitalIn the event this information is protected by the Federal Confidentiality of Alcohol and Drug Abuse Patient Records regulations: The Federal rules restrict any use of the information to criminally investigate or prosecute any alcohol or drug abuse patient.[facility] HospitalIn the event this information is protected by the Federal Confidentiality of Alcohol and Drug Abuse Patient Records regulations: The Federal rules restrict any use of the information to criminally investigate or prosecute any alcohol or drug abuse patient.[facility] HospitalIn the event this information is protected by the Federal Confidentiality of Alcohol and Drug Abuse Patient Records regulations: The Federal rules restrict any use of the information to criminally investigate or prosecute any alcohol or drug abuse patient.[facility] HospitalIn the event this information is protected by the Federal Confidentiality of Alcohol and Drug Abuse Patient Records regulations: The Federal rules restrict any use of the information to criminally investigate or prosecute any alcohol or drug abuse patient.[facility] HospitalIn the event this information is protected by the Federal Confidentiality of Alcohol and Drug Abuse Patient Records regulations: The Federal rules restrict any use of the information to criminally investigate or prosecute any alcohol or drug abuse patient.[facility] HospitalIn the event this information is protected by the Federal Confidentiality of Alcohol and Drug Abuse Patient Records regulations: The Federal rules restrict any use of the information to criminally investigate or prosecute any alcohol or drug abuse patient.[facility] HospitalIn the event this information is protected by the Federal Confidentiality of Alcohol and Drug Abuse Patient Records regulations: The Federal rules restrict any use of the information to criminally investigate or prosecute any alcohol or drug abuse patient.[facility] HospitalIn the event this information is protected by the Federal Confidentiality of Alcohol and Drug Abuse Patient Records regulations: The Federal rules restrict any use of the information to criminally investigate or prosecute any alcohol or drug abuse patient.[facility] HospitalIn the event this information is protected by the Federal Confidentiality of Alcohol and Drug Abuse Patient Records regulations: The Federal rules restrict any use of the information to criminally investigate or prosecute any alcohol or drug abuse patient.[facility] HospitalIn the event this information is protected by the Federal Confidentiality of Alcohol and Drug Abuse Patient Records regulations: The Federal rules restrict any use of the information to criminally investigate or prosecute any alcohol or drug abuse patient.[facility] HospitalIn the event this information is protected by the Federal Confidentiality of Alcohol and Drug Abuse Patient Records regulations: The Federal rules restrict any use of the information to criminally investigate or prosecute any alcohol or drug abuse patient.[facility] HospitalIn the event this information is protected by the Federal Confidentiality of Alcohol and Drug Abuse Patient Records regulations: The Federal rules restrict any use of the information to criminally investigate or prosecute any alcohol or drug abuse patient.[facility] HospitalIn the event this information is protected by the Federal Confidentiality of Alcohol and Drug Abuse Patient Records regulations: The Federal rules restrict any use of the information to criminally investigate or prosecute any alcohol or drug abuse patient.[facility] HospitalIn the event this information is protected by the Federal Confidentiality of Alcohol and Drug Abuse Patient Records regulations: The Federal rules restrict any use of the information to criminally investigate or prosecute any alcohol or drug abuse patient.[facility] HospitalIn the event this information is protected by the Federal Confidentiality of Alcohol and Drug Abuse Patient Records regulations: The Federal rules restrict any use of the information to criminally investigate or prosecute any alcohol or drug abuse patient.[facility] HospitalIn the event this information is protected by the Federal Confidentiality of Alcohol and Drug Abuse Patient Records regulations: The Federal rules restrict any use of the information to criminally investigate or prosecute any alcohol or drug abuse patient.[facility] HospitalIn the event this information is protected by the Federal Confidentiality of Alcohol and Drug Abuse Patient Records regulations: The Federal rules restrict any use of the information to criminally investigate or prosecute any alcohol or drug abuse patient.[facility] HospitalIn the event this information is protected by the Federal Confidentiality of Alcohol and Drug Abuse Patient Records regulations: The Federal rules restrict any use of the information to criminally investigate or prosecute any alcohol or drug abuse patient.[facility] HospitalIn the event this information is protected by the Federal Confidentiality of Alcohol and Drug Abuse Patient Records regulations: The Federal rules restrict any use of the information to criminally investigate or prosecute any alcohol or drug abuse patient.[facility] HospitalIn the event this information is protected by the Federal Confidentiality of Alcohol and Drug Abuse Patient Records regulations: The Federal rules restrict any use of the information to criminally investigate or prosecute any alcohol or drug abuse patient.[facility] HospitalIn the event this information is protected by the Federal Confidentiality of Alcohol and Drug Abuse Patient Records regulations: The Federal rules restrict any use of the information to criminally investigate or prosecute any alcohol or drug abuse patient.[facility] HospitalIn the event this information is protected by the Federal Confidentiality of Alcohol and Drug Abuse Patient Records regulations: The Federal rules restrict any use of the information to criminally investigate or prosecute any alcohol or drug abuse patient.[facility] HospitalIn the event this information is protected by the Federal Confidentiality of Alcohol and Drug Abuse Patient Records regulations: The Federal rules restrict any use of the information to criminally investigate or prosecute any alcohol or drug abuse patient.[facility] HospitalIn the event this information is protected by the Federal Confidentiality of Alcohol and Drug Abuse Patient Records regulations: The Federal rules restrict any use of the information to criminally investigate or prosecute any alcohol or drug abuse patient.[facility] HospitalIn the event this information is protected by the Federal Confidentiality of Alcohol and Drug Abuse Patient Records regulations: The Federal rules restrict any use of the information to criminally investigate or prosecute any alcohol or drug abuse patient.[facility] HospitalIn the event this information is protected by the Federal Confidentiality of Alcohol and Drug Abuse Patient Records regulations: The Federal rules restrict any use of the information to criminally investigate or prosecute any alcohol or drug abuse patient.[facility] HospitalIn the event this information is protected by the Federal Confidentiality of Alcohol and Drug Abuse Patient Records regulations: The Federal rules restrict any use of the information to criminally investigate or prosecute any alcohol or drug abuse patient.[facility] HospitalIn the event this information is protected by the Federal Confidentiality of Alcohol and Drug Abuse Patient Records regulations: The Federal rules restrict any use of the information to criminally investigate or prosecute any alcohol or drug abuse patient.[facility] HospitalIn the event this information is protected by the Federal Confidentiality of Alcohol and Drug Abuse Patient Records regulations: The Federal rules restrict any use of the information to criminally investigate or prosecute any alcohol or drug abuse patient.[facility] HospitalIn the event this information is protected by the Federal Confidentiality of Alcohol and Drug Abuse Patient Records regulations: The Federal rules restrict any use of the information to criminally investigate or prosecute any alcohol or drug abuse patient.[facility] HospitalIn the event this information is protected by the Federal Confidentiality of Alcohol and Drug Abuse Patient Records regulations: The Federal rules restrict any use of the information to criminally investigate or prosecute any alcohol or drug abuse patient.[facility] HospitalIn the event this information is protected by the Federal Confidentiality of Alcohol and Drug Abuse Patient Records regulations: The Federal rules restrict any use of the information to criminally investigate or prosecute any alcohol or drug abuse patient.[facility] HospitalIn the event this information is protected by the Federal Confidentiality of Alcohol and Drug Abuse Patient Records regulations: The Federal rules restrict any use of the information to criminally investigate or prosecute any alcohol or drug abuse patient.[facility] HospitalIn the event this information is protected by the Federal Confidentiality of Alcohol and Drug Abuse Patient Records regulations: The Federal rules restrict any use of the information to criminally investigate or prosecute any alcohol or drug abuse patient.[facility] HospitalIn the event this information is protected by the Federal Confidentiality of Alcohol and Drug Abuse Patient Records regulations: The Federal rules restrict any use of the information to criminally investigate or prosecute any alcohol or drug abuse patient.[facility] HospitalIn the event this information is protected by the Federal Confidentiality of Alcohol and Drug Abuse Patient Records regulations: The Federal rules restrict any use of the information to criminally investigate or prosecute any alcohol or drug abuse patient.[facility] HospitalIn the event this information is protected by the Federal Confidentiality of Alcohol and Drug Abuse Patient Records regulations: The Federal rules restrict any use of the information to criminally investigate or prosecute any alcohol or drug abuse patient.[facility] HospitalIn the event this information is protected by the Federal Confidentiality of Alcohol and Drug Abuse Patient Records regulations: The Federal rules restrict any use of the information to criminally investigate or prosecute any alcohol or drug abuse patient.[facility] HospitalIn the event this information is protected by the Federal Confidentiality of Alcohol and Drug Abuse Patient Records regulations: The Federal rules restrict any use of the information to criminally investigate or prosecute any alcohol or drug abuse patient.[facility] HospitalIn the event this information is protected by the Federal Confidentiality of Alcohol and Drug Abuse Patient Records regulations: The Federal rules restrict any use of the information to criminally investigate or prosecute any alcohol or drug abuse patient.[facility] HospitalIn the event this information is protected by the Federal Confidentiality of Alcohol and Drug Abuse Patient Records regulations: The Federal rules restrict any use of the information to criminally investigate or prosecute any alcohol or drug abuse patient.[facility] HospitalIn the event this information is protected by the Federal Confidentiality of Alcohol and Drug Abuse Patient Records regulations: The Federal rules restrict any use of the information to criminally investigate or prosecute any alcohol or drug abuse patient.[facility] HospitalIn the event this information is protected by the Federal Confidentiality of Alcohol and Drug Abuse Patient Records regulations: The Federal rules restrict any use of the information to criminally investigate or prosecute any alcohol or drug abuse patient.[facility] HospitalIn the event this information is protected by the Federal Confidentiality of Alcohol and Drug Abuse Patient Records regulations: The Federal rules restrict any use of the information to criminally investigate or prosecute any alcohol or drug abuse patient.[facility] HospitalIn the event this information is protected by the Federal Confidentiality of Alcohol and Drug Abuse Patient Records regulations: The Federal rules restrict any use of the information to criminally investigate or prosecute any alcohol or drug abuse patient.[facility] HospitalIn the event this information is protected by the Federal Confidentiality of Alcohol and Drug Abuse Patient Records regulations: The Federal rules restrict any use of the information to criminally investigate or prosecute any alcohol or drug abuse patient.[facility] HospitalIn the event this information is protected by the Federal Confidentiality of Alcohol and Drug Abuse Patient Records regulations: The Federal rules restrict any use of the information to criminally investigate or prosecute any alcohol or drug abuse patient.[facility] HospitalIn the event this information is protected by the Federal Confidentiality of Alcohol and Drug Abuse Patient Records regulations: The Federal rules restrict any use of the information to criminally investigate or prosecute any alcohol or drug abuse patient.[facility] HospitalIn the event this information is protected by the Federal Confidentiality of Alcohol and Drug Abuse Patient Records regulations: The Federal rules restrict any use of the information to criminally investigate or prosecute any alcohol or drug abuse patient.[facility] HospitalIn the event this information is protected by the Federal Confidentiality of Alcohol and Drug Abuse Patient Records regulations: The Federal rules restrict any use of the information to criminally investigate or prosecute any alcohol or drug abuse patient.[facility] HospitalIn the event this information is protected by the Federal Confidentiality of Alcohol and Drug Abuse Patient Records regulations: The Federal rules restrict any use of the information to criminally investigate or prosecute any alcohol or drug abuse patient.[facility] HospitalIn the event this information is protected by the Federal Confidentiality of Alcohol and Drug Abuse Patient Records regulations: The Federal rules restrict any use of the information to criminally investigate or prosecute any alcohol or drug abuse patient.[facility] HospitalIn the event this information is protected by the Federal Confidentiality of Alcohol and Drug Abuse Patient Records regulations: The Federal rules restrict any use of the information to criminally investigate or prosecute any alcohol or drug abuse patient.[facility] HospitalIn the event this information is protected by the Federal Confidentiality of Alcohol and Drug Abuse Patient Records regulations: The Federal rules restrict any use of the information to criminally investigate or prosecute any alcohol or drug abuse patient.[facility] HospitalIn the event this information is protected by the Federal Confidentiality of Alcohol and Drug Abuse Patient Records regulations: The Federal rules restrict any use of the information to criminally investigate or prosecute any alcohol or drug abuse patient.[facility] HospitalIn the event this information is protected by the Federal Confidentiality of Alcohol and Drug Abuse Patient Records regulations: The Federal rules restrict any use of the information to criminally investigate or prosecute any alcohol or drug abuse patient.[facility] HospitalIn the event this information is protected by the Federal Confidentiality of Alcohol and Drug Abuse Patient Records regulations: The Federal rules restrict any use of the information to criminally investigate or prosecute any alcohol or drug abuse patient.[facility] HospitalIn the event this information is protected by the Federal Confidentiality of Alcohol and Drug Abuse Patient Records regulations: The Federal rules restrict any use of the information to criminally investigate or prosecute any alcohol or drug abuse patient.[facility] HospitalIn the event this information is protected by the Federal Confidentiality of Alcohol and Drug Abuse Patient Records regulations: The Federal rules restrict any use of the information to criminally investigate or prosecute any alcohol or drug abuse patient.[facility] HospitalIn the event this information is protected by the Federal Confidentiality of Alcohol and Drug Abuse Patient Records regulations: The Federal rules restrict any use of the information to criminally investigate or prosecute any alcohol or drug abuse patient.[facility] HospitalIn the event this information is protected by the Federal Confidentiality of Alcohol and Drug Abuse Patient Records regulations: The Federal rules restrict any use of the information to criminally investigate or prosecute any alcohol or drug abuse patient.[facility] HospitalIn the event this information is protected by the Federal Confidentiality of Alcohol and Drug Abuse Patient Records regulations: The Federal rules restrict any use of the information to criminally investigate or prosecute any alcohol or drug abuse patient.[facility] HospitalIn the event this information is protected by the Federal Confidentiality of Alcohol and Drug Abuse Patient Records regulations: The Federal rules restrict any use of the information to criminally investigate or prosecute any alcohol or drug abuse patient.[facility] HospitalIn the event this information is protected by the Federal Confidentiality of Alcohol and Drug Abuse Patient Records regulations: The Federal rules restrict any use of the information to criminally investigate or prosecute any alcohol or drug abuse patient.[facility] HospitalIn the event this information is protected by the Federal Confidentiality of Alcohol and Drug Abuse Patient Records regulations: The Federal rules restrict any use of the information to criminally investigate or prosecute any alcohol or drug abuse patient.[facility] HospitalIn the event this information is protected by the Federal Confidentiality of Alcohol and Drug Abuse Patient Records regulations: The Federal rules restrict any use of the information to criminally investigate or prosecute any alcohol or drug abuse patient.[facility] HospitalIn the event this information is protected by the Federal Confidentiality of Alcohol and Drug Abuse Patient Records regulations: The Federal rules restrict any use of the information to criminally investigate or prosecute any alcohol or drug abuse patient.[facility] HospitalIn the event this information is protected by the Federal Confidentiality of Alcohol and Drug Abuse Patient Records regulations: The Federal rules restrict any use of the information to criminally investigate or prosecute any alcohol or drug abuse patient.[facility] HospitalIn the event this information is protected by the Federal Confidentiality of Alcohol and Drug Abuse Patient Records regulations: The Federal rules restrict any use of the information to criminally investigate or prosecute any alcohol or drug abuse patient.[facility] HospitalIn the event this information is protected by the Federal Confidentiality of Alcohol and Drug Abuse Patient Records regulations: The Federal rules restrict any use of the information to criminally investigate or prosecute any alcohol or drug abuse patient.[facility] HospitalIn the event this information is protected by the Federal Confidentiality of Alcohol and Drug Abuse Patient Records regulations: The Federal rules restrict any use of the information to criminally investigate or prosecute any alcohol or drug abuse patient.[facility] HospitalIn the event this information is protected by the Federal Confidentiality of Alcohol and Drug Abuse Patient Records regulations: The Federal rules restrict any use of the information to criminally investigate or prosecute any alcohol or drug abuse patient.[facility] HospitalIn the event this information is protected by the Federal Confidentiality of Alcohol and Drug Abuse Patient Records regulations: The Federal rules restrict any use of the information to criminally investigate or prosecute any alcohol or drug abuse patient.[facility] HospitalIn the event this information is protected by the Federal Confidentiality of Alcohol and Drug Abuse Patient Records regulations: The Federal rules restrict any use of the information to criminally investigate or prosecute any alcohol or drug abuse patient.[facility] HospitalIn the event this information is protected by the Federal Confidentiality of Alcohol and Drug Abuse Patient Records regulations: The Federal rules restrict any use of the information to criminally investigate or prosecute any alcohol or drug abuse patient.[facility] HospitalIn the event this information is protected by the Federal Confidentiality of Alcohol and Drug Abuse Patient Records regulations: The Federal rules restrict any use of the information to criminally investigate or prosecute any alcohol or drug abuse patient.[facility] HospitalIn the event this information is protected by the Federal Confidentiality of Alcohol and Drug Abuse Patient Records regulations: The Federal rules restrict any use of the information to criminally investigate or prosecute any alcohol or drug abuse patient.[facility] HospitalIn the event this information is protected by the Federal Confidentiality of Alcohol and Drug Abuse Patient Records regulations: The Federal rules restrict any use of the information to criminally investigate or prosecute any alcohol or drug abuse patient.[facility] HospitalIn the event this information is protected by the Federal Confidentiality of Alcohol and Drug Abuse Patient Records regulations: The Federal rules restrict any use of the information to criminally investigate or prosecute any alcohol or drug abuse patient.[facility] HospitalIn the event this information is protected by the Federal Confidentiality of Alcohol and Drug Abuse Patient Records regulations: The Federal rules restrict any use of the information to criminally investigate or prosecute any alcohol or drug abuse patient.[facility] HospitalIn the event this information is protected by the Federal Confidentiality of Alcohol and Drug Abuse Patient Records regulations: The Federal rules restrict any use of the information to criminally investigate or prosecute any alcohol or drug abuse patient.[facility] HospitalIn the event this information is protected by the Federal Confidentiality of Alcohol and Drug Abuse Patient Records regulations: The Federal rules restrict any use of the information to criminally investigate or prosecute any alcohol or drug abuse patient.[facility] HospitalIn the event this information is protected by the Federal Confidentiality of Alcohol and Drug Abuse Patient Records regulations: The Federal rules restrict any use of the information to criminally investigate or prosecute any alcohol or drug abuse patient.[facility] HospitalIn the event this information is protected by the Federal Confidentiality of Alcohol and Drug Abuse Patient Records regulations: The Federal rules restrict any use of the information to criminally investigate or prosecute any alcohol or drug abuse patient.[facility] HospitalIn the event this information is protected by the Federal Confidentiality of Alcohol and Drug Abuse Patient Records regulations: The Federal rules restrict any use of the information to criminally investigate or prosecute any alcohol or drug abuse patient.[facility] HospitalIn the event this information is protected by the Federal Confidentiality of Alcohol and Drug Abuse Patient Records regulations: The Federal rules restrict any use of the information to criminally investigate or prosecute any alcohol or drug abuse patient.[facility] HospitalIn the event this information is protected by the Federal Confidentiality of Alcohol and Drug Abuse Patient Records regulations: The Federal rules restrict any use of the information to criminally investigate or prosecute any alcohol or drug abuse patient.[facility] HospitalIn the event this information is protected by the Federal Confidentiality of Alcohol and Drug Abuse Patient Records regulations: The Federal rules restrict any use of the information to criminally investigate or prosecute any alcohol or drug abuse patient.[facility] HospitalIn the event this information is protected by the Federal Confidentiality of Alcohol and Drug Abuse Patient Records regulations: The Federal rules restrict any use of the information to criminally investigate or prosecute any alcohol or drug abuse patient.[facility] HospitalIn the event this information is protected by the Federal Confidentiality of Alcohol and Drug Abuse Patient Records regulations: The Federal rules restrict any use of the information to criminally investigate or prosecute any alcohol or drug abuse patient.[facility] HospitalIn the event this information is protected by the Federal Confidentiality of Alcohol and Drug Abuse Patient Records regulations: The Federal rules restrict any use of the information to criminally investigate or prosecute any alcohol or drug abuse patient.[facility] HospitalIn the event this information is protected by the Federal Confidentiality of Alcohol and Drug Abuse Patient Records regulations: The Federal rules restrict any use of the information to criminally investigate or prosecute any alcohol or drug abuse patient.[facility] HospitalIn the event this information is protected by the Federal Confidentiality of Alcohol and Drug Abuse Patient Records regulations: The Federal rules restrict any use of the information to criminally investigate or prosecute any alcohol or drug abuse patient.[facility] HospitalIn the event this information is protected by the Federal Confidentiality of Alcohol and Drug Abuse Patient Records regulations: The Federal rules restrict any use of the information to criminally investigate or prosecute any alcohol or drug abuse patient.[facility] HospitalIn the event this information is protected by the Federal Confidentiality of Alcohol and Drug Abuse Patient Records regulations: The Federal rules restrict any use of the information to criminally investigate or prosecute any alcohol or drug abuse patient.[facility] HospitalIn the event this information is protected by the Federal Confidentiality of Alcohol and Drug Abuse Patient Records regulations: The Federal rules restrict any use of the information to criminally investigate or prosecute any alcohol or drug abuse patient.[facility] HospitalIn the event this information is protected by the Federal Confidentiality of Alcohol and Drug Abuse Patient Records regulations: The Federal rules restrict any use of the information to criminally investigate or prosecute any alcohol or drug abuse patient.[facility] HospitalIn the event this information is protected by the Federal Confidentiality of Alcohol and Drug Abuse Patient Records regulations: The Federal rules restrict any use of the information to criminally investigate or prosecute any alcohol or drug abuse patient.[facility] HospitalIn the event this information is protected by the Federal Confidentiality of Alcohol and Drug Abuse Patient Records regulations: The Federal rules restrict any use of the information to criminally investigate or prosecute any alcohol or drug abuse patient.[facility] HospitalIn the event this information is protected by the Federal Confidentiality of Alcohol and Drug Abuse Patient Records regulations: The Federal rules restrict any use of the information to criminally investigate or prosecute any alcohol or drug abuse patient.[facility] HospitalIn the event this information is protected by the Federal Confidentiality of Alcohol and Drug Abuse Patient Records regulations: The Federal rules restrict any use of the information to criminally investigate or prosecute any alcohol or drug abuse patient.[facility] HospitalIn the event this information is protected by the Federal Confidentiality of Alcohol and Drug Abuse Patient Records regulations: The Federal rules restrict any use of the information to criminally investigate or prosecute any alcohol or drug abuse patient.[facility] HospitalIn the event this information is protected by the Federal Confidentiality of Alcohol and Drug Abuse Patient Records regulations: The Federal rules restrict any use of the information to criminally investigate or prosecute any alcohol or drug abuse patient.[facility] HospitalIn the event this information is protected by the Federal Confidentiality of Alcohol and Drug Abuse Patient Records regulations: The Federal rules restrict any use of the information to criminally investigate or prosecute any alcohol or drug abuse patient.[facility] HospitalIn the event this information is protected by the Federal Confidentiality of Alcohol and Drug Abuse Patient Records regulations: The Federal rules restrict any use of the information to criminally investigate or prosecute any alcohol or drug abuse patient.[facility] HospitalIn the event this information is protected by the Federal Confidentiality of Alcohol and Drug Abuse Patient Records regulations: The Federal rules restrict any use of the information to criminally investigate or prosecute any alcohol or drug abuse patient.[facility] HospitalIn the event this information is protected by the Federal Confidentiality of Alcohol and Drug Abuse Patient Records regulations: The Federal rules restrict any use of the information to criminally investigate or prosecute any alcohol or drug abuse patient.[facility] HospitalIn the event this information is protected by the Federal Confidentiality of Alcohol and Drug Abuse Patient Records regulations: The Federal rules restrict any use of the information to criminally investigate or prosecute any alcohol or drug abuse patient.[facility] HospitalIn the event this information is protected by the Federal Confidentiality of Alcohol and Drug Abuse Patient Records regulations: The Federal rules restrict any use of the information to criminally investigate or prosecute any alcohol or drug abuse patient.[facility] HospitalIn the event this information is protected by the Federal Confidentiality of Alcohol and Drug Abuse Patient Records regulations: The Federal rules restrict any use of the information to criminally investigate or prosecute any alcohol or drug abuse patient.[facility] HospitalIn the event this information is protected by the Federal Confidentiality of Alcohol and Drug Abuse Patient Records regulations: The Federal rules restrict any use of the information to criminally investigate or prosecute any alcohol or drug abuse patient.[facility] HospitalIn the event this information is protected by the Federal Confidentiality of Alcohol and Drug Abuse Patient Records regulations: The Federal rules restrict any use of the information to criminally investigate or prosecute any alcohol or drug abuse patient.[facility] HospitalIn the event this information is protected by the Federal Confidentiality of Alcohol and Drug Abuse Patient Records regulations: The Federal rules restrict any use of the information to criminally investigate or prosecute any alcohol or drug abuse patient.[facility] HospitalIn the event this information is protected by the Federal Confidentiality of Alcohol and Drug Abuse Patient Records regulations: The Federal rules restrict any use of the information to criminally investigate or prosecute any alcohol or drug abuse patient.[facility] HospitalIn the event this information is protected by the Federal Confidentiality of Alcohol and Drug Abuse Patient Records regulations: The Federal rules restrict any use of the information to criminally investigate or prosecute any alcohol or drug abuse patient.[facility] HospitalIn the event this information is protected by the Federal Confidentiality of Alcohol and Drug Abuse Patient Records regulations: The Federal rules restrict any use of the information to criminally investigate or prosecute any alcohol or drug abuse patient.[facility] Care Teams (unrecognized sec tion and content) Larriman Relationship Specialty Start Date End Date Shay Cardoza MD [address] [place] [address] PCP - General Family Practice 09/24/14 Doreen Jerome RN Specialty Sales Trainer Oncology 02/09/19 Larriman Relationship Specialty Start Date End Date Shay Cardoza MD [address] [place] [address] PCP - General Family Practice 09/24/14 Doreen Jerome RN Specialty Sales Trainer Oncology 02/09/19 Larriman Relationship Specialty Start Date End Date Shay Cardoza MD [address] [facility] [place] [address] PCP - General Family Practice 09/24/14 Doreen Jerome RN Specialty Sales Trainer Oncology 02/09/19 Larriman Relationship Specialty Start Date End Date Shay Cardoza MD [address] [facility] [place] [address] PCP - General Family Practice 09/24/14 Doreen Jerome RN Specialty Sales Trainer Oncology 02/09/19 Larriman Relationship Specialty [place] [address] [place] [address] [place] [address] PCP - General Family Practice 09/24/14 Doreen Jerome RN Specialty Sales Trainer Oncology 02/09/19 Larriman Relationship Specialty Start Date End Date Shay Cardoza MD [address] [facility] [place] [address] PCP - General Family Practice 09/24/14 Doreen Jerome RN Specialty Sales Trainer Oncology 02/09/19 Larriman Relationship Specialty Start Date End Date Shay Cardoza MD [address] [facility] [place] [address] PCP - General Family Practice 09/24/14 Doreen Jerome RN Specialty Sales Trainer Oncology 02/09/19 Larriman Relationship Specialty Start Date End Date Shay Cardoza MD [address] [facility] [place] [address] PCP - General Family Practice 09/24/14 Doreen Jerome RN Specialty Sales Trainer Oncology 02/09/19 Larriman Relationship Specialty Start Date End Date Shay Cardoza MD [address] [facility] [place] [address] PCP - General Family Practice 09/24/14 Doreen Jerome RN Specialty Sales Trainer Oncology 02/09/19 Larriman Relationship Specialty Start Date End Date Shay Cardoza MD [address] [facility] [place] [address] PCP - General Family Practice 09/24/14 Doreen Jerome RN Specialty Sales Trainer Oncology 02/09/19 Larriman Relationship Specialty Start Date End Date Shay Cardoza MD [address] [facility] [place] [address] PCP - General Family Medicine 09/24/14 Doreen Jerome RN Specialty Sales Trainer Oncology 02/09/19 Larriman Relationship Specialty Start Date End Date Shay Cardoza MD [address] [facility] [place] [address] PCP - General Family Medicine 09/24/14 Doreen Jerome RN Specialty Sales Trainer Oncology 02/09/19 Larriman Relationship Specialty Start Date End Date Shay Cardoza MD [address] [place] [address] PCP - General Family Medicine 09/24/14 Doreen Jerome RN Specialty Sales Trainer Oncology 02/09/19 Larriman Relationship Specialty Start Date End Date Shay Cardoza MD [address] [facility] [place] [address] PCP - General Family Medicine 09/24/14 Doreen Jerome RN Specialty Sales Trainer Oncology 02/09/19 Larriman Relationship Specialty Start Date End Date Shay Cardoza MD [address] [facility] [place] [address] PCP - General Family Medicine 09/24/14 Doreen Jerome RN Specialty Sales Trainer Oncology 02/09/19 Larriman Relationship Specialty Start Date End Date Shay Cardoza MD [address] [facility] [place] [address] PCP - General Family Medicine 09/24/14 Doreen Jerome RN Specialty Sales Trainer Oncology 02/09/19 Larriman Relationship Specialty [place] [address] [place] [address], [place] [address] PCP - General Family Medicine 09/24/14 Doreen Jerome RN Specialty Sales Trainer Oncology 02/09/19 Larriman Relationship Specialty Start Date End Date Shay Cardoza MD [address] [place] [address], [place] [address] PCP - General Family Medicine 09/24/14 Doreen Jerome RN Specialty Sales Trainer Oncology 02/09/19 Larriman Relationship Specialty Start Date End Date Shay Cardoza MD [address] [place] [address] PCP - General Family Medicine 09/24/14 Doreen Jerome RN Specialty Sales Trainer Oncology 02/09/19 Larriman Relationship Specialty Start Date End Date Shay Cardoza MD [address] [place] [address], [place] [address] PCP - General Family Medicine 09/24/14 Doreen Jerome RN Specialty Sales Trainer Oncology 02/09/19 Larriman Relationship Specialty Start Date End Date Shay Cardoza MD [address] [place] [address] [place] [address] PCP - General Family Medicine 09/24/14 Doreen Jerome RN Specialty Sales Trainer Oncology 02/09/19 Larriman Relationship Specialty Start Date End Date Shay Cardoza MD [facility] [place] [address] PCP - General Family Medicine 09/24/14 Doreen Jerome RN Specialty Sales Trainer Oncology 02/09/19 Larriman Relationship Specialty Start Date End Date Shay Cardoza MD [address] [facility] [place] [address] PCP - General Family Medicine 09/24/14 Doreen Jerome RN Specialty Sales Trainer Oncology 02/09/19 Larriman Relationship Specialty Start Date End Date Shay Cardoza MD [address] [facility] [place] [address] PCP - General Family Medicine 09/24/14 Doreen Jerome RN Specialty Sales Trainer Oncology 02/09/19 Larriman Relationship Specialty Start Date End Date Shay Cardoza MD [address] [place] [address] PCP - General Family Medicine 09/24/14 Doreen Jerome RN Specialty Sales Trainer Oncology 02/09/19 Larriman Relationship Specialty Start Date End Date Shay Cardoza MD [address] [place] [address] PCP - General Family Medicine 09/24/14 Doreen Jerome RN Specialty Sales Trainer Oncology 02/09/19 Larriman Relationship Specialty Start Date End Date Shay Cardoza MD [address] [place] [address] PCP - General Family Medicine 09/24/14 Doreen Jerome RN Specialty Sales Trainer Oncology 02/09/19 Larriman Relationship Specialty Start Date End Date Shay Cardoza MD [address] [facility] [place] [address] PCP - General Family Medicine 09/24/14 Doreen Jerome RN Specialty Sales Trainer Oncology 02/09/19 Laura Alfonso, [facility] [place] [address] Specialty Sales Trainer Hematology/Oncology 07/15/22 Larriman Relationship Specialty Start Date End Date Shay Cardoza MD [address] [place] [address] PCP - General Family Medicine 09/24/14 Doreen Jerome RN Specialty Sales Trainer Oncology 02/09/19 Laura Alfonso, SHEILA [address] [place] [address] Specialty Sales Trainer Hematology/Oncology 07/15/22 Larriman Relationship Specialty Start Date End Date Shay Cardoza MD [address] [place] [address] PCP - General Family Medicine 09/24/14 Doreen Jerome RN Specialty Sales Trainer Oncology 02/09/19 Laura Alfonso, SHEILA [address] [place] [address] Specialty Sales Trainer Hematology/Oncology 07/15/22 Larriman Relationship Specialty Start Date End Date Shay Cardoza MD [address] [place] [address] PCP - General Family Medicine 09/24/14 Doreen Jerome RN Specialty Sales Trainer Oncology 02/09/19 Laura Alfonso, SHEILA [address] [place] [address] Specialty Sales Trainer Hematology/Oncology 07/15/22 Larriman Relationship Specialty Start Date End Date Shay Cardoza MD [address] [place] [address] PCP - General Family Medicine 09/24/14 Doreen Jerome RN Specialty Sales Trainer Oncology 02/09/19 Laura Alfonso, SHEILA [address] [place] [address] Specialty Sales Trainer Hematology/Oncology 07/15/22 Larriman Relationship Specialty Start Date End Date Shay Cardoza MD [address] [place] [address] PCP - General Family Medicine 09/24/14 Doreen Jerome RN Specialty Sales Trainer Oncology 02/09/19 Laura Alfonso, SHEILA [address] [place] [address] Specialty Sales Trainer Hematology/Oncology 07/15/22 Larriman Relationship Specialty Start Date End Date Shay Cardoza MD [address] [place] [address] PCP - General Family Medicine 09/24/14 Doreen Jerome RN Specialty Sales Trainer Oncology 02/09/19 Laura Alfonso, SHEILA [address] [place] [address] Specialty Sales Trainer Hematology/Oncology 07/15/22 Larriman Relationship Specialty Start Date End Date Shay Cardoza MD [address] [place] [address] PCP - General Family Medicine 09/24/14 Doreen Jerome RN Specialty Sales Trainer Oncology 02/09/19 Laura Alfonso, SHEILA [address] [place] [address] Specialty Sales Trainer Hematology/Oncology 07/15/22 Larriman Relationship Specialty Start Date End Date Shay Cardoza MD [address] [place] [address] PCP - General Family Medicine 09/24/14 Doreen Jerome RN Specialty Sales Trainer Oncology 02/09/19 Laura Alfonso, SHEILA [address] [place] [address] Specialty Sales Trainer Hematology/Oncology 07/15/22 Larriman Relationship Specialty Start Date End Date Shay Cardoza MD [address] [place] [address] PCP - General Family Medicine 09/24/14 Doreen Jerome RN Specialty Sales Trainer Oncology 02/09/19 Laura Alfonso, SHEILA [address] [place] [address] Specialty Sales Trainer Hematology/Oncology 07/15/22 Larriman Relationship Specialty Start Date End Date Shay Cardoza MD [address] [place] [address] PCP - General Family Medicine 09/24/14 Doreen Jerome RN Specialty Sales Trainer Oncology 02/09/19 Laura Alfonso, SHEILA [address] [place] [address] Specialty Sales Trainer Hematology/Oncology 07/15/22 Larriman Relationship Specialty Start Date End Date Shay Cardoza MD [address] [place] [address] PCP - General Family Medicine 09/24/14 Doreen Jerome RN Specialty Sales Trainer Oncology 02/09/19 Laura Alfonso, SHEILA [address] [place] [address] Specialty Sales Trainer Hematology/Oncology 07/15/22 Larriman Relationship Specialty Start Date End Date Shay Cardoza MD [address] [place] [address] PCP - General Family Medicine 09/24/14 Doreen Jerome RN Specialty Sales Trainer Oncology 02/09/19 Laura Alfonso, SHEILA [address] [place] [address] Specialty Sales Trainer Hematology/Oncology 07/15/22 Larriman Relationship Specialty Start Date End Date Shay Cardoza MD [address] [place] [address] PCP - General Family Medicine 09/24/14 Doreen Jerome RN Specialty Sales Trainer Oncology 02/09/19 Laura Alfonso, SHEILA [address] [facility] [place] [address] Specialty Sales Trainer Hematology/Oncology 07/15/22 Js Cruz, [address] [facility] [place] [address] Hematology/Oncology 08/28/22 Fang Cote MD [address] [place] [address] Gynecology 08/28/22 Larriman Relationship Specialty Start Date End Date Shay Cardoza MD [address] [place] [address] PCP - General Family Medicine 09/24/14 Doreen Jerome RN Specialty Sales Trainer Oncology 02/09/19 Laura Alfonso RN [address] [place] [facility] [place] [address] Specialty Sales Trainer Hematology/Oncology 07/15/22 Js Cruz, [address] [facility] [place] [address] Hematology/Oncology 08/28/22 Fang Cote MD [address] [facility] [address] [place] [address] Gynecology 08/28/22 Larriman Relationship Specialty Start Date End Date Shay Cardoza MD [address] [place] [address] PCP - General Family Medicine 09/24/14 Doreen Jerome RN Specialty Sales Trainer Oncology 02/09/19 Laura Alfonso RN [address] [place] [address] Specialty Sales Trainer Hematology/Oncology 07/15/22 Js Cruz DO [address] [place] [address] Hematology/Oncology 08/28/22 Fang Cote MD [address] [facility] [address] [place] [address] Gynecology 08/28/22 Larriman Relationship Specialty Start Date End Date Shay Cardoza MD [address] [facility] [place] [address] PCP - General Family Medicine 09/24/14 Doreen Jerome RN Specialty Sales Trainer Oncology 02/09/19 Laura Alfonso RN [address] [place] [address] Specialty Sales Trainer Hematology/Oncology 07/15/22 sJ Cruz DO [address] [facility] [place] [address] Hematology/Oncology 08/28/22 Fang Cote MD [address] [place] [address] Gynecology 08/28/22 Larriman Relationship Specialty Start Date End Date Shay Cardoza MD [address] [facility] [place] [address] PCP - General Family Medicine 09/24/14 Doreen Jerome RN Specialty Sales Trainer Oncology 02/09/19 Laura Alfonso, SHEILA [address] [place] [address] Specialty Sales Trainer Hematology/Oncology 07/15/22 Js Cruz DO [address] [place] [facility] [place] [address] Hematology/Oncology 08/28/22 Fang Cote MD [address] [facility] [address] [place] [address] Gynecology 08/28/22 Larriman Relationship Specialty Start Date End Date Shay Cardoza MD [address] [facility] [place] [address] PCP - General Family Medicine 09/24/14 Doreen Jerome RN Specialty Sales Trainer Oncology 02/09/19 Laura Alfonso, SHEILA [address] [place] [place] [address] Specialty Sales Trainer Hematology/Oncology 07/15/22 Js Cruz DO [address] [place] [place] [address] Hematology/Oncology 08/28/22 Fang Cote MD [address] [facility] [address] [place] [address] Gynecology 08/28/22 Larriman Relationship Specialty Start Date End Date Shay Cardoza MD [address] [facility] [place] [address] PCP - General Family Medicine 09/24/14 Doreen Jerome RN Specialty Sales Trainer Oncology 02/09/19 Laura Alfonso, SHEILA [address] [place] [place] [address] Specialty Sales Trainer Hematology/Oncology 07/15/22 Js Cruz DO [address] [place] [facility] [place] [address] Hematology/Oncology 08/28/22 Fang Cote MD [address] [facility] [address] [place] [address] Gynecology 08/28/22 Larriman Relationship Specialty Start Date End Date Shay Cardoza MD [address] [place] [address] PCP - General Family Medicine 09/24/14 Doreen Jerome RN Specialty Sales Trainer Oncology 02/09/19 Laura Alfonso, SHEILA [address] [place] [address] Specialty Sales Trainer Hematology/Oncology 07/15/22 Js Cruz DO [address] [place] [address] Hematology/Oncology 08/28/22 Fang Cote MD [address] [address] Gynecology 08/28/22 Larriman Relationship Specialty Start Date End Date Shay Cardoza MD [address] [place] [address] PCP - General Family Medicine 09/24/14 Doreen Jerome RN Specialty Sales Trainer Oncology 02/09/19 Laura Alfonso, SHEILA [address] [place] [address] Specialty Sales Trainer Hematology/Oncology 07/15/22 Js Cruz DO [address] [place] [address] Hematology/Oncology 08/28/22 Fang Cote MD [address] [address] Gynecology 08/28/22 Larriman Relationship Specialty Start Date End Date Shay Cardoza MD [address] [place] [address] PCP - General Family Medicine 09/24/14 Doreen Jerome RN Specialty Sales Trainer Oncology 02/09/19 Laura Alfonso, SHEILA [address] [place] [address] Specialty Sales Trainer Hematology/Oncology 07/15/22 Js Cruz DO [address] [place] [address] Hematology/Oncology 08/28/22 Fang Cote MD [address] [facility] [address] [place] [address] Gynecology 08/28/22 Larriman Relationship Specialty Start Date End Date Shay Cardoza MD [address] [place] [address] PCP - General Family Medicine 09/24/14 Doreen Jerome RN Specialty Sales Trainer Oncology 02/09/19 Laura Alfonso RN [address] [place] [address] Specialty Sales Trainer Hematology/Oncology 07/15/22 Js Cruz DO [address] [place] [address] Hematology/Oncology 08/28/22 Fang Cote MD [address] [facility] [address] [place] [address] Gynecology 08/28/22 Larriman Relationship Specialty Start Date End Date Shay Cardoza MD [address] [place] [address] PCP - General Family Medicine 09/24/14 Doreen Jerome RN Specialty Sales Trainer Oncology 02/09/19 Laura Alfonso RN [address] [place] [address] Specialty Sales Trainer Hematology/Oncology 07/15/22 Js Cruz DO [address] [place] [address] Hematology/Oncology 08/28/22 Fang Cote MD [address] [facility] [address] [place] [address] Gynecology 08/28/22 Larriman Relationship Specialty Start Date End Date Shay Cardoza MD [address] [facility] [place] [address] PCP - General Family Medicine 09/24/14 Doreen Jerome RN Specialty Sales Trainer Oncology 02/09/19 Laura Alfonso RN [address] [place] [address] Specialty Sales Trainer Hematology/Oncology 07/15/22 Js Cruz DO [address] [place] [address] Hematology/Oncology 08/28/22 Fang Cote MD [address] [facility] [address] [place] [address] Gynecology 08/28/22 Larriman Relationship Specialty Start Date End Date Shay Cardoza MD [address] [facility] [place] [address] PCP - General Family Medicine 09/24/14 Doreen Jerome RN Specialty Sales Trainer Oncology 02/09/19 Laura Alfonso RN [address] [place] [address] Specialty Sales Trainer Hematology/Oncology 07/15/22 Masci, Js A, DO [address] [place] [address] Hematology/Oncology 08/28/22 Fang Cote MD [address] [facility] [address] [place] [address] Gynecology 08/28/22 Larriman Relationship Specialty Start Date End Date Shay Cardoza MD [address] [facility] [place] [address] PCP - General Family Medicine 09/24/14 Doreen Jerome RN Specialty Sales Trainer Oncology 02/09/19 Laura Alfonso, SHEILA [address] [place] [address] Specialty Sales Trainer Hematology/Oncology 07/15/22 Js Cruz DO [address] [place] [address] Hematology/Oncology 08/28/22 Fang Cote MD [address] [facility] [address] [place] [address] Gynecology 08/28/22 Larriman Relationship Specialty Start Date End Date Shay Cardoza MD [address] [facility] [place] [address] PCP - General Family Medicine 09/24/14 Doreen Jerome RN Specialty Sales Trainer Oncology 02/09/19 Laura Alfonso RN [address] [place] [address] Specialty Sales Trainer Hematology/Oncology 07/15/22 Js Cruz, [address] [place] [address] Hematology/Oncology 08/28/22 Fang Cote MD [address] [facility] [address] [place] [address] Gynecology 08/28/22 Larriman Relationship Specialty Start Date End Date Shay Cardoza MD [address] [facility] [place] [address] PCP - General Family Medicine 09/24/14 Doreen Jerome RN Specialty Sales Trainer Oncology 02/09/19 Laura Alfonso, SHEILA [address] [place] [address] Specialty Sales Trainer Hematology/Oncology 07/15/22 Js Cruz DO [address] [facility] [address] Hematology/Oncology 08/28/22 Fang Cote MD [address] [facility] [address] [place] [address] Gynecology 08/28/22 Larriman Relationship Specialty Start Date End Date Shay Cardoza MD [address] [place] [address] PCP - General Family Medicine 09/24/14 Doreen Jerome RN Specialty Sales Trainer Oncology 02/09/19 Laura Alfonso RN [address] [place] [address] Specialty Sales Trainer Hematology/Oncology 07/15/22 Js Cruz DO [address] [facility] [address] Hematology/Oncology 08/28/22 Fang Cote MD [address] [facility] [address] [place] [address] Gynecology 08/28/22 Larriman Relationship Specialty Start Date End Date Shay Cardoza MD [address] [place] [address] PCP - General Family Medicine 09/24/14 Doreen Jerome RN Specialty Sales Trainer Oncology 02/09/19 Laura Alfonso, SHEILA [address] [place] [address] Specialty Sales Trainer Hematology/Oncology 07/15/22 Js Cruz DO [address] [place] [address] Hematology/Oncology 08/28/22 Fang Cote MD [address] [facility] [address] [place] [address] Gynecology 08/28/22 Larriman Relationship Specialty Start Date End Date Shay Cardoza MD [address] [place] [address] PCP - General Family Medicine 09/24/14 Doreen Jerome RN Specialty Sales Trainer Oncology 02/09/19 Laura Alfonso RN [address] [place] [address] Specialty Sales Trainer Hematology/Oncology 07/15/22 Js Cruz DO [address] [place] [address] Hematology/Oncology 08/28/22 Fang Cote MD [address] [facility] [address] [place] [address] Gynecology 08/28/22 Larriman Relationship Specialty Start Date End Date Shay Cardoza MD [address] [place] [address] PCP - General Family Medicine 09/24/14 Doreen Jerome RN Specialty Sales Trainer Oncology 02/09/19 Laura Alfonso RN [address] [place] [address] Specialty Sales Trainer Hematology/Oncology 07/15/22 Js Cruz DO [address] [place] [address] Hematology/Oncology 08/28/22 Fang Cote MD [address] [facility] [address] [place] [address] Gynecology 08/28/22 Larriman Relationship Specialty Start Date End Date Shay Cardoza MD [address] [facility] [place] [address] PCP - General Family Medicine 09/24/14 Doreen Jerome RN Specialty Sales Trainer Oncology 02/09/19 Laura Alfonso RN [address] [place] [address] Specialty Sales Trainer Hematology/Oncology 07/15/22 Js Cruz DO [address] [place] [address] Hematology/Oncology 08/28/22 Fang Cote MD [address] [facility] [address] [place] [address] Gynecology 08/28/22 Larriman Relationship Specialty Start Date End Date Shay Cardoza MD [address] [facility] [place] [address] PCP - General Family Medicine 09/24/14 Doreen Jerome RN Specialty Sales Trainer Oncology 02/09/19 Js rCuz DO [address] [place] [address] Hematology/Oncology 08/28/22 Fang Cote MD [address] [facility] [address] [place], [place] [address] Gynecology 08/28/22 Larriman Relationship Specialty Start Date End Date Shay Cardoza MD [address] [place] [address] PCP - General Family Medicine 09/24/14 Doreen Jerome RN Specialty Sales Trainer Oncology 02/09/19 Js Cruz DO [address] [place] [address] Hematology/Oncology 08/28/22 Fang Cote MD [address] [address] Gynecology 08/28/22 Larriman Relationship Specialty Start Date End Date Shay Cardoza MD [address] [place] [address] PCP - General Family Medicine 09/24/14 Doreen Jerome RN Specialty Sales Trainer Oncology 02/09/19 Js Cruz DO [address] [place] [address] Hematology/Oncology 08/28/22 Fang Cote MD [address] [facility] [address] [place], [place] [address] Gynecology 08/28/22 Larriman Relationship Specialty Start Date End Date Shay Cardoza MD [address] [place] [address] PCP - General Family Medicine 09/24/14 Doreen Jerome RN Specialty Sales Trainer Oncology 02/09/19 Js Cruz DO [address] [place] [address] Hematology/Oncology 08/28/22 Fang Cote MD [address] [facility] [address] [place] [address] Gynecology 08/28/22 Larriman Relationship Specialty Start Date End Date Shay Cardoza MD [address] [place] [address] PCP - General Family Medicine 09/24/14 Doreen Jerome RN Specialty Sales Trainer Oncology 02/09/19 Js Cruz DO [address] [place] [address] Hematology/Oncology 08/28/22 Fang Cote MD [address] [address] Gynecology 08/28/22 Larriman Relationship Specialty Start Date End Date Shay Cardoza MD [address] [place] [address] PCP - General Family Medicine 09/24/14 Doreen Jerome RN Specialty Sales Trainer Oncology 02/09/19 Js Cruz DO [address] [place] [address] Hematology/Oncology 08/28/22 Fang Cote MD [address] [facility] [address] [place] [address] Gynecology 08/28/22 Larriman Relationship Specialty Start Date End Date Shay Cardoza MD [address] [place] [address] PCP - General Family Medicine 09/24/14 Doreen Jerome RN Specialty Sales Trainer Oncology 02/09/19 Js Cruz DO [address] [place] [address] Hematology/Oncology 08/28/22 Fang Cote MD [address] [facility] [address] [place] [address] Gynecology 08/28/22 Larriman Relationship Specialty Start Date End Date Shay Cardoza MD [address] [place] [address] PCP - General Family Medicine 09/24/14 Doreen Jerome RN Specialty Sales Trainer Oncology 02/09/19 Js Cruz DO [address] [place] [address] Hematology/Oncology 08/28/22 Fang Cote MD [address] [facility] [address] [place] [address] Gynecology 08/28/22 Larriman Relationship Specialty Start Date End Date Shay Cardoza MD [address] [place] [address] PCP - General Family Medicine 09/24/14 Doreen Jerome RN Specialty Sales Trainer Oncology 02/09/19 Js Cruz DO [address] [place] [address] Hematology/Oncology 08/28/22 Fang Cote MD [address] [facility] [address] [place] [address] Gynecology 08/28/22 Larriman Relationship Specialty Start Date End Date Shay Cardoza MD [address] [place] [address] PCP - General Family Medicine 09/24/14 Doreen Jerome RN Specialty Sales Trainer Oncology 02/09/19 Js Cruz DO [address] [place] [address] Hematology/Oncology 08/28/22 Fang Cote MD [address] [facility] [address] [place] [address] Gynecology 08/28/22 Larriman Relationship Specialty Start Date End Date Shay Cardoza MD [address] [place] [address] PCP - General Family Medicine 09/24/14 Doreen Jerome RN Specialty Sales Trainer Oncology 02/09/19 Js Cruz DO [address] [place] [address] Hematology/Oncology 08/28/22 Fang Cote MD [address] [facility] [address] [place] [address] Gynecology 08/28/22 Larriman Relationship Specialty Start Date End Date Shay Cardoza MD [address] [place] [address] PCP - General Family Medicine 09/24/14 Doreen Jerome RN Specialty Sales Trainer Oncology 02/09/19 Js Cruz DO [address] [place] [address] Hematology/Oncology 08/28/22 Fang Cote MD [address] [facility] [address] [place] [address] Gynecology 08/28/22 Larriman Relationship Specialty Start Date End Date Shay Cardoza MD [address] [place] [address] PCP - General Family Medicine 09/24/14 Doreen Jerome RN Specialty Sales Trainer Oncology 02/09/19 Js Cruz DO [address] [place] [address] Hematology/Oncology 08/28/22 Fang Cote MD [address] [facility] [address] [place] [address] Gynecology 08/28/22 Larriman Relationship Specialty Start Date End Date Shay Cardoza MD [address] [place] [address] PCP - General Family Medicine 09/24/14 Doreen Jerome RN Specialty Sales Trainer Oncology 02/09/19 Js Cruz DO [address] [place] [address] Hematology/Oncology 08/28/22 Fang Cote MD [address] [facility] [address] [place], [place] [address] Gynecology 08/28/22 Larriman Relationship Specialty Start Date End Date Shay Cardoza MD [address] [place] [address] PCP - General Family Medicine 09/24/14 Doreen Jerome RN Specialty Sales Trainer Oncology 02/09/19 Js Cruz DO [address] [place] [address] Hematology/Oncology 08/28/22 Fang Cote MD [address] [address] Gynecology 08/28/22 Larriman Relationship Specialty Start Date End Date Shay Cardoza MD [address] [place] [address] PCP - General Family Medicine 09/24/14 Doreen Jerome RN Specialty Sales Trainer Oncology 02/09/19 Js Cruz DO [address] [place] [address] Hematology/Oncology 08/28/22 Fang Cote MD [address] [facility] [address] [place], [place] [address] Gynecology 08/28/22 Larriman Relationship Specialty Start Date End Date Shay Cardoza MD [address] [place] [address] PCP - General Family Medicine 09/24/14 Doreen Jerome RN Specialty Sales Trainer Oncology 02/09/19 Js Cruz DO [address] [place], [place] [address] [phone] Hematology/Oncology 08/28/22 Fang Cote MD [address] [facility] [address] [place] [address] Gynecology 08/28/22 Larriman Relationship Specialty Start Date End Date Shay Cardoza MD [address] [place] [address] PCP - General Family Medicine 09/24/14 Doreen Jerome RN Specialty Sales Trainer Oncology 02/09/19 Laura Alfonso RN [address] [place] [address] Specialty Sales Trainer Hematology/Oncology 07/15/22 12/28/22 Js Cruz DO [address] [place] [address] Hematology/Oncology 08/28/22 Fang Cote MD [address] [facility] [address] [place] [address] Gynecology 08/28/22 Larriman Relationship Specialty Start Date End Date Shay Cardoza MD [address] [place] [address] PCP - General Family Medicine 09/24/14 Doreen Jerome RN Specialty Sales Trainer Oncology 02/09/19 Larriman Relationship Specialty Start Date End Date Shay Cardoza MD [address] [place] [address] PCP - General Family Medicine 09/24/14 Doreen Jerome RN Specialty Sales Trainer Oncology 02/09/19 Laura Alfonso, SHEILA [address] [place] [address] Specialty Sales Trainer Hematology/Oncology 07/15/22 12/28/22 Larriman Relationship Specialty Start Date End Date Shay Cardoza MD [address] [place] [address] PCP - General Family Medicine 09/24/14 Doreen Jerome RN Specialty Sales Trainer Oncology 02/09/19 Laura Alfonso, RN [address] [place] [address] Specialty Sales Trainer Hematology/Oncology 07/15/22 12/28/22 Js Cruz DO [address] [place] [address] Hematology/Oncology 08/28/22 Fang Cote MD [address] [place] [address] Gynecology 08/28/22 Larriman Relationship Specialty Start Date End Date Shay Cardoza MD [address] [place] [address] PCP - General Family Medicine 09/24/14 Doreen Jerome RN Specialty Sales Trainer Oncology 02/09/19 Larriman Relationship Specialty Start Date End Date Shay Cardoza MD [address] [place] [address] PCP - General Family Medicine 09/24/14 Doreen Jerome RN Specialty Sales Trainer Oncology 02/09/19 Larriman Relationship Specialty Start Date End Date Shay Cardoza MD [address] [place] [address] PCP - General Family Medicine 09/24/14 Doreen Jerome RN Specialty Sales Trainer Oncology 02/09/19 Laura Alfonso, SHEILA [address] [place] [address] Specialty Sales Trainer Hematology/Oncology 07/15/22 12/28/22 Js Cruz DO [address] [place] [address] Hematology/Oncology 08/28/22 Fang Cote MD [address] [facility] [address] [place] [address] Gynecology 08/28/22 Larriman Relationship Specialty Start Date End Date Shay Cardoza MD [address] [place] [address] PCP - General Family Medicine 09/24/14 Doreen Jerome RN Specialty Sales Trainer Oncology 02/09/19 Js Cruz DO [address] [place] [address] Hematology/Oncology 08/28/22 Fang Cote MD [address] [facility] [address] [place] [address] Gynecology 08/28/22 Larriman Relationship Specialty Start Date End Date Shay Cardoza MD [address] [place] [address] PCP - General Family Medicine 09/24/14 Doreen Jerome RN Specialty Sales Trainer Oncology 02/09/19 Laura Alfonso, SHEILA [address] [place] [address] Specialty Sales Trainer Hematology/Oncology 07/15/22 12/28/22 Js Cruz DO [address] [place] [address] Hematology/Oncology 08/28/22 Fang Cote MD [address] [facility] [address] [place] [address] Gynecology 08/28/22 Larriman Relationship Specialty Start Date End Date Shay Cardoza MD [address] [place] [address] PCP - General Family Medicine 09/24/14 Doreen Jerome RN Specialty Sales Trainer Oncology 02/09/19 Laura Alfonso, SHEILA [address] [place] [address] Specialty Sales Trainer Hematology/Oncology 07/15/22 12/28/22 Js Cruz DO [address] [place] [address] Hematology/Oncology 08/28/22 Fang Cote MD [address] [facility] [address] [place] [address] Gynecology 08/28/22 Larriman Relationship Specialty Start Date End Date Shay Cardoza MD [address] [place] [address] PCP - General Family Medicine 09/24/14 Doreen Jerome RN Specialty Sales Trainer Oncology 02/09/19 Larriman Relationship Specialty Start Date End Date Shay Cardoza MD [address] [place] [address] PCP - General Family Medicine 09/24/14 Doreen Jerome RN Specialty Sales Trainer Oncology 02/09/19 Js Cruz DO [address] [place] [address] Hematology/Oncology 08/28/22 Fang Cote MD [address] [facility] [address] [place] [address] Gynecology 08/28/22 Larriman Relationship Specialty Start Date End Date Shay Cardoza MD [address] [place] [address] PCP - General Family Medicine 09/24/14 Doreen Jerome RN Specialty Sales Trainer Oncology 02/09/19 Js Cruz DO [address] [place] [address] Hematology/Oncology 08/28/22 Fang Cote MD [address] [facility] [address] [place] [address] Gynecology 08/28/22 Larriman Relationship Specialty Start Date End Date Shay Cardoza MD [address] [place] [address] PCP - General Family Medicine 09/24/14 Doreen Jerome RN Specialty Sales Trainer Oncology 02/09/19 Js Cruz DO [address] [place] [address] Hematology/Oncology 08/28/22 Fang Cote MD [address] [facility] [address] [place] [address] Gynecology 08/28/22 Larriman Relationship Specialty Start Date End Date Shay Cardoza MD [address] [place] [address] PCP - General Family Medicine 09/24/14 Doreen Jerome RN Specialty Sales Trainer Oncology 02/09/19 Js Cruz DO [address] [place] [address] Hematology/Oncology 08/28/22 Fang Cote MD [address] [facility] [address] [place] [address] Gynecology 08/28/22 Larriman Relationship Specialty Start Date End Date Shay Cardoza MD [address] [place] [address] PCP - General Family Medicine 09/24/14 Doreen Jerome RN Specialty Sales Trainer Oncology 02/09/19 Js Cruz DO [address] [place] [address] Hematology/Oncology 08/28/22 Fang Cote MD [address] [facility] [address] [place] [address] Gynecology 08/28/22 Larriman Relationship Specialty Start Date End Date Shay Cardoza MD [address] [place] [address] PCP - General Family Medicine 09/24/14 Doreen Jerome RN Specialty Sales Trainer Oncology 02/09/19 Js Cruz DO [address] [place] [address] Hematology/Oncology 08/28/22 Fang Cote MD [address] [facility] [address] [place], [place] [id number] Gynecology 08/28/22 Larriman Relationship Specialty Start Date End Date Shay Cardoza MD [address] [place] [address] PCP - General Family Medicine 09/24/14 Doreen Jerome RN Specialty Sales Trainer Oncology 02/09/19 Js Cruz DO [address] [place] [address] Hematology/Oncology 08/28/22 Fang Cote MD [address] [facility] [address] [place] [address] Gynecology 08/28/22 Team Status: Active Member Role Status Dates Dr. Vladimir Crenshaw MD Family Provider Active Dr. Shay Cardoza MD Primary Care Provider Active Team Status: Active Member Role Status Dates Dr. Shay Cardoza MD Primary Care Provider Active Dr. Cristofer Rodriguez MD Emergency Provider Active Dr. Saqib Maradiaga MD Attending Provider Active Team Status: Inactive Member Role Status Dates Dr. Shay Cardoza MD Primary Care Provider Active Dr. Cristofer Rodriguez MD Emergency Provider Active Larriman Relationship Specialty Start Date End Date Shay Cardoza MD [address] [place] [address] PCP - General Family Medicine 09/24/14 Doreen Jerome RN Specialty Sales Trainer Oncology 02/09/19 Js Cruz DO [address] [place] [address] Hematology/Oncology 08/28/22 Fang Cote MD [address] [facility] [address] [place] [address] Gynecology 08/28/22 Larriman Relationship Specialty Start Date End Date Shay Cardoza MD [address] [place] [address] PCP - General Family Medicine 09/24/14 Doreen Jerome RN Specialty Sales Trainer Oncology 02/09/19 Js Cruz DO [address] [place] [address] Hematology/Oncology 08/28/22 Fang Cote MD [address] [facility] [address] [place] [address] Gynecology 08/28/22 Larriman Relationship Specialty Start Date End Date Shay Cardoza MD [address] [place] [address] PCP - General Family Medicine 09/24/14 Doreen Jerome RN Specialty Sales Trainer Oncology 02/09/19 Js Cruz DO [address] [place] [address] Hematology/Oncology 08/28/22 Fang Cote MD [address] [facility] [address] [place], [place] [id number] Gynecology 08/28/22 Larriman Relationship Specialty Start Date End Date Shay Cardoza MD [address] [place] [address] PCP - General Family Medicine 09/24/14 Doreen Jerome RN Specialty Sales Trainer Oncology 02/09/19 Js Cruz DO [address] [place] [address] Hematology/Oncology 08/28/22 Fang Cote MD [address] [facility] [address] [place] [address] Gynecology 08/28/22 Larriman Relationship Specialty Start Date End Date Shay Cardoza MD [address] [place] [address] PCP - General Family Medicine 09/24/14 Doreen Jerome RN Specialty Sales Trainer Oncology 02/09/19 Js Cruz DO [address] [place] [address] Hematology/Oncology 08/28/22 Fang Cote MD [address] [facility] [address] [place], [place] [id number] Gynecology 08/28/22 Larriman Relationship Specialty Start Date End Date Shay Cardoza MD [address] [place] [address] PCP - General Family Medicine 09/24/14 Doreen Jerome RN Specialty Sales Trainer Oncology 02/09/19 Js Cruz DO [address] [place] [address] Hematology/Oncology 08/28/22 Fang Cote MD [address] [facility] [address] [place] [address] Gynecology 08/28/22 Larriman Relationship Specialty Start Date End Date Shay Cardoza MD [address] [place] [address] PCP - General Family Medicine 09/24/14 Doreen Jerome RN Specialty Sales Trainer Oncology 02/09/19 Js Cruz DO [address] [place] [address] Hematology/Oncology 08/28/22 Fang Cote MD [address] [facility] [address] [place] [address] Gynecology 08/28/22 Larriman Relationship Specialty Start Date End Date Shay Cardoza MD [address] [place] [address] PCP - General Family Medicine 09/24/14 Doreen Jerome RN Specialty Sales Trainer Oncology 02/09/19 Js Cruz DO [address] [place] [address] Hematology/Oncology 08/28/22 Fang Cote MD [address] [facility] [address] [place] [address] Gynecology 08/28/22 Larriman Relationship Specialty Start Date End Date Shay Cardoza MD [address] [place] [address] PCP - General Family Medicine 09/24/14 Doreen Jerome RN Specialty Sales Trainer Oncology 02/09/19 Js Cruz DO [address] [place] [address] Hematology/Oncology 08/28/22 Fang Cote MD [address] [address] Gynecology 08/28/22 Larriman Relationship Specialty Start Date End Date Shay Cardoza MD [address] [place] [address] PCP - General Family Medicine 09/24/14 Doreen Jerome RN Specialty Sales Trainer Oncology 02/09/19 Js Cruz DO [address] [place] [address] Hematology/Oncology 08/28/22 Fang [facility]ote MD [address] [facility] [address] [place] [address] Gynecology 08/28/22 Larriman Relationship Specialty Start Date End Date Shay Cardoza MD [address] [place] [address] PCP - General Family Medicine 09/24/14 Doreen Jerome RN Specialty Sales Trainer Oncology 02/09/19 Js Cruz DO [address] [place] [address] Hematology/Oncology 08/28/22 Fang Cote MD [address] [facility] [address] [place] [address] Gynecology 08/28/22 Larriman Relationship Specialty Start Date End Date Shay Cardoza MD [address] [place] [address] PCP - General Family Medicine 09/24/14 Doreen Jerome RN Specialty Sales Trainer Oncology 02/09/19 Js Cruz DO [address] [place] [address] Hematology/Oncology 08/28/22 Fang Cote MD [address] [address] Gynecology 08/28/22 Larriman Relationship Specialty Start Date End Date Shay Cardoza MD [address] [place] [address] PCP - General Family Medicine 09/24/14 Doreen Jerome RN Specialty Sales Trainer Oncology 02/09/19 Js Cruz DO [address] [place] [address] Hematology/Oncology 08/28/22 Fang Cote MD [address] [facility] [address] [place] [address] Gynecology 08/28/22 Larriman Relationship Specialty Start Date End Date Shay Cardoza MD [address] [place] [address] PCP - General Family Medicine 09/24/14 Doreen Jerome RN Specialty Sales Trainer Oncology 02/09/19 Js Cruz DO [address] [place] [address] Hematology/Oncology 08/28/22 Fang Cote MD [address] [facility] [address] [place] [address] Gynecology 08/28/22 Larriman Relationship Specialty Start Date End Date Shay Cardoza MD [address] [place] [address] PCP - General Family Medicine 09/24/14 Doreen Jerome RN Specialty Sales Trainer Oncology 02/09/19 Js Cruz DO [address] [place] [address] Hematology/Oncology 08/28/22 Fang Cote MD [address] [facility] [address] [place] [address] Gynecology 08/28/22 Larriman Relationship Specialty Start Date End Date Shay Cardoza MD [address] [place] [address] PCP - General Family Medicine 09/24/14 Doreen Jerome RN Specialty Sales Trainer Oncology 02/09/19 Js Cruz DO [address] [place] [address] Hematology/Oncology 08/28/22 Fang Cote MD [address] [facility] [address] [place] [address] Gynecology 08/28/22 Larriman Relationship Specialty Start Date End Date Shay Cardoza MD [address] [place] [address] PCP - General Family Medicine 09/24/14 Doreen Jerome RN Specialty Sales Trainer Oncology 02/09/19 Js Cruz DO [address] [place] [address] Hematology/Oncology 08/28/22 Fang Cote MD [address] [facility] [address] [place] [address] Gynecology 08/28/22 Larriman Relationship Specialty Start Date End Date Shay Cardoza MD [address] [place] [address] PCP - General Family Medicine 09/24/14 Doreen Jerome RN Specialty Sales Trainer Oncology 02/09/19 Js Cruz DO [address] [place] [address] Hematology/Oncology 08/28/22 Fang Cote MD [address] [facility] [address] [place] [address] Gynecology 08/28/22 Larriman Relationship Specialty Start Date End Date Shay Cardoza MD [address] [place] [address] PCP - General Family Medicine 09/24/14 Doreen Jerome RN Specialty Sales Trainer Oncology 02/09/19 Js Cruz DO [address] [place] [address] Hematology/Oncology 08/28/22 Fang Cote MD [address] [facility] [address] [place] [address] Gynecology 08/28/22 Larriman Relationship Specialty Start Date End Date Shay Cardoza MD [address] [place] [address] PCP - General Family Medicine 09/24/14 Doreen Jerome RN Specialty Sales Trainer Oncology 02/09/19 Js Cruz DO [address] [place] [address] Hematology/Oncology 08/28/22 Fang Cote MD [address] [facility] [address] [place] [address] Gynecology 08/28/22 Larriman Relationship Specialty Start Date End Date Shay Cardoza MD [address] [place] [address] PCP - General Family Medicine 09/24/14 Doreen Jerome RN Specialty Sales Trainer Oncology 02/09/19 Js Cruz DO [address] [place] [address] Hematology/Oncology 08/28/22 Fang Cote MD [address] [facility] [address] [place] [address] Gynecology 08/28/22 Champ Nichols [address] [place] [address] Ophthalmology 10/20/23 Larriman Relationship Specialty Start Date End Date Shay Cardoza MD [address] [place], [place] 8432[address] PCP - General Family Medicine 09/24/14 Doreen Jerome RN Specialty Sales Trainer Oncology 02/09/19 Js Cruz DO [address] [place], [place] [address] Hematology/Oncology 08/28/22 Fang Cote MD [address] [facility] [address] [place], [place] [id number] Gynecology 08/28/22 Champ Nichols [address] [place] [address] Ophthalmology 10/20/23 Larriman Relationship Specialty Start Date End Date Shay Cardoza MD [address] [place], [place] 410[address] PCP - General Family Medicine 09/24/14 Doreen Jerome RN Specialty Sales Trainer Oncology 02/09/19 Js Cruz DO [address] [place] [address] Hematology/Oncology 08/28/22 Fang Cote MD [address] [facility] [address] [place] [address] Gynecology 08/28/22 Champ Nichols [address] [place], [place] [address] Ophthalmology 10/20/23 Larriman Relationship Specialty Start Date End Date Shay Cardoza MD [address] [place], [place] 912361 PCP - General Family Medicine 09/24/14 Doreen Jerome RN Specialty Sales Trainer Oncology 02/09/19 Js Cruz DO [address] [place], [place] 8840[address] Hematology/Oncology 08/28/22 Fang Cote MD [address] [facility] [address] [place] [address] Gynecology 08/28/22 Champ Nichols [address] [place] [address] Ophthalmology 10/20/23 Larriman Relationship Specialty Start Date End Date Shay Cardoza MD [address] [place], [place] 533901 PCP - General Family Medicine 09/24/14 Doreen Jerome RN Specialty Sales Trainer Oncology 02/09/19 Js Cruz DO [address] [place] [address] Hematology/Oncology 08/28/22 Fang Cote MD [address] [facility] [address] [place] [address] Gynecology 08/28/22 Champ Nichols [address] [place] [address] Ophthalmology 10/20/23 Larriman Relationship Specialty Start Date End Date Shay Cardoza MD [address] [place] [address] PCP - General Family Medicine 09/24/14 Doreen Jerome RN Specialty Sales Trainer Oncology 02/09/19 Js Cruz DO [address] [place] [address] Hematology/Oncology 08/28/22 Fang Cote MD [address] [facility] [address] [place] [address] Gynecology 08/28/22 Champ Nichols [address] [place] [address] Ophthalmology 10/20/23 Larriman Relationship Specialty Start Date End Date Shay Cardoza MD [address] [place] [address] PCP - General Family Medicine 09/24/14 Doreen Jerome RN Specialty Sales Trainer Oncology 02/09/19 Js Cruz DO [address] [place] [address] Hematology/Oncology 08/28/22 Fang Cote MD [address] [facility] [address] [place] [address] Gynecology 08/28/22 Champ Nichols [address] [place] [address] Ophthalmology 10/20/23 Larriman Relationship Specialty Start Date End Date Shay Cardoza MD [address] [place] [address] PCP - General Family Medicine 09/24/14 Doreen Jerome RN Specialty Sales Trainer Oncology 02/09/19 Js Cruz DO [address] [place] [address] Hematology/Oncology 08/28/22 Fang Cote MD [address] [facility] [address] [place] [address] Gynecology 08/28/22 Champ Nichols [address] [place] [address] Ophthalmology 10/20/23 Larriman Relationship Specialty Start Date End Date Shay Cardoza MD [address] [place], [place] 269121 PCP - General Family Medicine 09/24/14 Doreen Jerome RN Specialty Sales Trainer Oncology 02/09/19 Js Cruz DO [address] [place] [address] Hematology/Oncology 08/28/22 Fang Cote MD [address] [facility] [address] [place] [address] Gynecology 08/28/22 Champ Nichols [address] [place] [address] Ophthalmology 10/20/23 Larriman Relationship Specialty Start Date End Date Shay Cardoza MD [address] [place], [place] 951741 PCP - General Family Medicine 09/24/14 Doreen Jerome RN Specialty Sales Trainer Oncology 02/09/19 Js Cruz DO [address] [place] [address] Hematology/Oncology 08/28/22 Fang Cote MD [address] [facility] [address] [place], [place] [address] Gynecology 08/28/22 Champ Nichols [address] [place] [address] Ophthalmology 10/20/23 Larriman Relationship Specialty Start Date End Date Shay Cardoza MD [address] [place], [place] 586321 PCP - General Family Medicine 09/24/14 Doreen Jerome RN Specialty Sales Trainer Oncology 02/09/19 Js Cruz DO [address] [place] [address] Hematology/Oncology 08/28/22 Fang Cote MD [address] [facility] [address] [place], [place] [address] Gynecology 08/28/22 Champ Nichols [address] [place] [address] Ophthalmology 10/20/23 Larriman Relationship Specialty Start Date End Date Shay Cardoza MD [address] [place] [address] PCP - General Family Medicine 09/24/14 Doreen Jerome RN Specialty Sales Trainer Oncology 02/09/19 Js Cruz DO [address] [place] [address] Hematology/Oncology 08/28/22 Fang Cote MD [address] [facility] [address] [place] [address] Gynecology 08/28/22 Champ Nichols [address] [place] [address] Ophthalmology 10/20/23 Larriman Relationship Specialty Start Date End Date Shay Cardoza MD [address] [place] [address] PCP - General Family Medicine 09/24/14 Doreen Jerome RN Specialty Sales Trainer Oncology 02/09/19 Js Cruz DO [address] [place] [address] Hematology/Oncology 08/28/22 Fang Cote MD [address] [facility] [address] [place] [address] Gynecology 08/28/22 Champ Nichols [address] [place] [address] Ophthalmology 10/20/23 Larriman Relationship Specialty Start Date End Date Shay Cardoza MD [address] [place] [address] PCP - General Family Medicine 09/24/14 Doreen Jerome RN Specialty Sales Trainer Oncology 02/09/19 Js Cruz DO [address] [place] [address] Hematology/Oncology 08/28/22 Fang Cote MD [address] [facility] [address] [place] [address] Gynecology 08/28/22 Champ Nichols [address] [place] [address] Ophthalmology 10/20/23 Larriman Relationship Specialty Start Date End Date Shay Cardoza MD [address] [place] [address] PCP - General Family Medicine 09/24/14 Doreen Jerome RN Specialty Sales Trainer Oncology 02/09/19 Js Cruz DO [address] [place] [address] Hematology/Oncology 08/28/22 Fang Cote MD [address] [facility] [address] [place] [address] Gynecology 08/28/22 Champ Nichols [address] [place] [address] Ophthalmology 10/20/23 Larriman Relationship Specialty Start Date End Date Shay Cardoza MD [address] [place] [address] PCP - General Family Medicine 09/24/14 Doreen Jerome RN Specialty Sales Trainer Oncology 02/09/19 Js Cruz DO [address] [place] [address] Hematology/Oncology 08/28/22 Fang Cote MD [address] [facility] [address] [place] [address] Gynecology 08/28/22 Champ Nichols [address] [place] [address] Ophthalmology 10/20/23 Larriman Relationship Specialty Start Date End Date Shay Cardoza MD [address] [place] [address] PCP - General Family Medicine 09/24/14 Doreen Jerome RN Specialty Sales Trainer Oncology 02/09/19 Js Cruz DO [address] [place] [address] Hematology/Oncology 08/28/22 Fang Cote MD [address] [facility] [address] [place] [address] Gynecology 08/28/22 Champ Nichols [address] [place] [address] Ophthalmology 10/20/23 Larriman Relationship Specialty Start Date End Date Shay Cardoza MD [address] [place] [address] PCP - General Family Medicine 09/24/14 Doreen Jerome RN Specialty Sales Trainer Oncology 02/09/19 Js Cruz DO [address] [place] [address] Hematology/Oncology 08/28/22 Fang Cote MD [address] [facility] [address] [place] [address] Gynecology 08/28/22 Champ Nichols [facility] [place] [address] Ophthalmology 10/20/23 Larriman Relationship Specialty Start Date End Date Shay Cardoza MD [address] [place] [address] PCP - General Family Medicine 09/24/14 Doreen Jerome RN Specialty Sales Trainer Oncology 02/09/19 Js Cruz DO [address] [place] [address] Hematology/Oncology 08/28/22 Fang Cote MD [address] [facility] [address] [place] [address] Gynecology 08/28/22 Champ Nichols [address] [place] [address] Ophthalmology 10/20/23 Larriman Relationship Specialty Start Date End Date Shay Cardoza MD [address] [place] [address] PCP - General Family Medicine 09/24/14 Doreen Jerome RN Specialty Sales Trainer Oncology 02/09/19 Js Cruz DO [address] [place] [address] Hematology/Oncology 08/28/22 Fang Cote MD [address] [facility] [address] [place] [address] Gynecology 08/28/22 Champ Nihcols [facility] [place] [address] Ophthalmology 10/20/23 Larriman Relationship Specialty Start Date End Date Shay Cardoza MD [address] [place] [address] PCP - General Family Medicine 09/24/14 Doreen Jerome RN Specialty Sales Trainer Oncology 02/09/19 Js Cruz DO [address] [place] [address] Hematology/Oncology 08/28/22 Fang Cote MD [address] [facility] [address] [place] [address] Gynecology 08/28/22 Champ Nichols [address] [place] [address] Ophthalmology 10/20/23 Larriman Relationship Specialty Start Date End Date Shay Cardoza MD [address] [place], [place] 24364[address] [phone] PCP - General Family Medicine 09/24/14 Doreen Jerome RN Specialty Sales Trainer Oncology 02/09/19 Js Cruz DO [address] [place] [address] Hematology/Oncology 08/28/22 Fang Cote MD [address] [facility] [address] [place] [address] Gynecology 08/28/22 Champ Nichols [address] [place] [address] Ophthalmology 10/20/23 Larriman Relationship Specialty Start Date End Date Shay Cardoza MD [address] [place] [address] PCP - General Family Medicine 09/24/14 Doreen Jerome RN Specialty Sales Trainer Oncology 02/09/19 Js Cruz DO [address] [place] [address] Hematology/Oncology 08/28/22 Fang Cote MD [address] [facility] [address] [place] [address] Gynecology 08/28/22 Champ Nichols [address] [place], [place] [address] Ophthalmology 10/20/23 Larriman Relationship Specialty Start Date End Date Shay Cardoza MD [address] [place], [place] 4767[address] PCP - General Family Medicine 09/24/14 Doreen Jerome RN Specialty Sales Trainer Oncology 02/09/19 Js Cruz DO [address] [place] [address] Hematology/Oncology 08/28/22 Fang Cote MD [address] [facility] [address] [place] [address] Gynecology 08/28/22 Champ Nichols [address] [place], [place] 73[address]41 Ophthalmology 10/20/23 Larriman Relationship Specialty Start Date End Date Shay Cardoza MD [address] [place], [place] 230409 [phone] PCP - General Family Medicine 09/24/14 Doreen Jerome RN Specialty Sales Trainer Oncology 02/09/19 Js Cruz DO [address] [place] [address] Hematology/Oncology 08/28/22 Fang Cote MD [address] [facility] [address] [place] [address] Gynecology 08/28/22 Champ Nichols [address] [place] [address] Ophthalmology 10/20/23 Larriman Relationship Specialty Start Date End Date Shay Cardoza MD [address] [place] [address] PCP - General Family Medicine 09/24/14 Doreen Jerome RN Specialty Sales Trainer Oncology 02/09/19 Js Cruz DO [address] [place] [address] Hematology/Oncology 08/28/22 Fang Cote MD [address] [facility] [address] [place] [address] Gynecology 08/28/22 Champ Nichols [address] [place] [address] Ophthalmology 10/20/23 Larriman Relationship Specialty Start Date End Date Shay Cardoza MD [address] [place] [address] PCP - General Family Medicine 09/24/14 Doreen Jerome RN Specialty Sales Trainer Oncology 02/09/19 Js Cruz DO [address] [place] [address] Hematology/Oncology 08/28/22 Fang Cote MD [address] [facility] [address] [place] [address] Gynecology 08/28/22 Champ Nichols [address] [place] [address] Ophthalmology 10/20/23 Larriman Relationship Specialty Start Date End Date Shay Cardoza MD [address] [place], [place] [address]87[address] PCP - General Family Medicine 09/24/14 Doreen Jerome RN Specialty Sales Trainer Oncology 02/09/19 Js Cruz DO [address] [place] [address] Hematology/Oncology 08/28/22 Fang Cote MD [address] [facility] [address] [place] [address] Gynecology 08/28/22 Champ Nichols [address] [place] [address] Ophthalmology 10/20/23 Larriman Relationship Specialty Start Date End Date Shay Cardoza MD [address] [place] [address] PCP - General Family Medicine 09/24/14 Doreen Jerome RN Specialty Sales Trainer Oncology 02/09/19 Js Cruz DO [address] [place] [address] Hematology/Oncology 08/28/22 Fang Cote MD [address] [facility] [address] [place] [address] Gynecology 08/28/22 Champ Nichols [address] [place] [address] Ophthalmology 10/20/23 Larriman Relationship Specialty Start Date End Date Shay Cardoza MD [address] [place] [address] PCP - General Family Medicine 09/24/14 Doreen Jerome RN Specialty Sales Trainer Oncology 02/09/19 Js Cruz DO [address] [place] [address] Hematology/Oncology 08/28/22 Fang Cote MD [address] [facility] [address] [place] [address] Gynecology 08/28/22 Champ Nichols [address] [place] [address] Ophthalmology 10/20/23 Larriman Relationship Specialty Start Date End Date Shay Cardoza MD [address] [place] [address] PCP - General Family Medicine 09/24/14 Doreen Jerome RN Specialty Sales Trainer Oncology 02/09/19 Js Cruz DO [address] [place] [address] Hematology/Oncology 08/28/22 Fang Cote MD [address] [facility] [address] [place] [address] Gynecology 08/28/22 Champ Nichols [address] [place] [address] Ophthalmology 10/20/23 Larriman Relationship Specialty Start Date End Date Shay Cardoza MD [address] [place] [address] PCP - General Family Medicine 09/24/14 Doreen Jerome RN Specialty Sales Trainer Oncology 02/09/19 Js Cruz DO [address] [place] [address] Hematology/Oncology 08/28/22 Fang Cote MD [address] [facility] [address] [place], [place] [id number] Gynecology 08/28/22 Champ Nichols [address] [place] [address] Ophthalmology 10/20/23 Larriman Relationship Specialty Start Date End Date Shay Cardoza MD [address] [place] [address] PCP - General Family Medicine 09/24/14 Doreen Jerome RN Specialty Sales Trainer Oncology 02/09/19 Js Cruz DO [address] [place] [address] Hematology/Oncology 08/28/22 Fang Cote MD [address] [address] Gynecology 08/28/22 Champ Nichols [address] [place] [address] Ophthalmology 10/20/23 Larriman Relationship Specialty Start Date End Date Shay Cardoza MD [address] [place] [address] PCP - General Family Medicine 09/24/14 Doreen Jerome RN Specialty Sales Trainer Oncology 02/09/19 Js Cruz DO [address] [place] [address] Hematology/Oncology 08/28/22 Fang Cote MD [address] [facility] [address] [place] [address] Gynecology 08/28/22 Champ Nichols [address] [place] [address] Ophthalmology 10/20/23 Larriman Relationship Specialty Start Date End Date Shay Cardoza MD [address] [place] [address] PCP - General Family Medicine 09/24/14 Doreen Jerome RN Specialty Sales Trainer Oncology 02/09/19 Js Cruz DO [address] [place] [address] Hematology/Oncology 08/28/22 Fang Cote MD [address] [facility] [address] [place] [address] Gynecology 08/28/22 Champ Nichols [address] [place] [address] Ophthalmology 10/20/23 Larriman Relationship Specialty Start Date End Date Shay Cardoza MD [address] [place] [address] PCP - General Family Medicine 09/24/14 Doreen Jerome RN Specialty Sales Trainer Oncology 02/09/19 Js Cruz DO [address] [place] [address] Hematology/Oncology 08/28/22 Fang Cote MD [address] [facility] [address] [place] [address] Gynecology 08/28/22 Champ Nichols [address] [place] [address] Ophthalmology 10/20/23 Larriman Relationship Specialty Start Date End Date Shay Cardoza MD [address] [place] [address] PCP - General Family Medicine 09/24/14 Doreen Jerome RN Specialty Sales Trainer Oncology 02/09/19 Js Cruz DO [address] [place] [address] Hematology/Oncology 08/28/22 Fang Cote MD [address] [facility] [address] [place] [address] Gynecology 08/28/22 Champ Nichols [address] [place] [address] Ophthalmology 10/20/23 Larriman Relationship Specialty Start Date End Date Shay Cardoza MD [address] [place] [address] PCP - General Family Medicine 09/24/14 Doreen Jerome RN Specialty Sales Trainer Oncology 02/09/19 Js Cruz DO [address] [place] [address] Hematology/Oncology 08/28/22 Fang Cote MD [address] [facility] [address] [place] [address] Gynecology 08/28/22 Champ Nichols [address] [place] [address] Ophthalmology 10/20/23 Vesna Decker, RN Specialty Sales Trainer Decontamination Technician Oncology 05/17/24 Larriman Relationship Specialty Start Date End Date Shay Cardoza MD [address] [place], [place] 809[address] PCP - General Family Medicine 09/24/14 Doreen Jerome RN Specialty Sales Trainer Oncology 02/09/19 Js Cruz DO [address] [place] [address] Hematology/Oncology 08/28/22 Fang Cote MD [address] [facility] [address] [place] [address] Gynecology 08/28/22 Champ Nichols [address] [place] [address] Ophthalmology 10/20/23 Vesna Decker, RN Specialty Sales Trainer Decontamination Technician Oncology 05/17/24 Karishma Ravi APRN.[employer] [address] [place], [place] 4038[address] [phone] [employer] Family Medicine 05/27/24 Bianca Duncan PA-C [address] [place] [address] [employer] Spring Assembler Family Medicine 05/27/24 Larriman Relationship Specialty Start Date End Date Shay Cardoza MD [address] [place], [place] 243861 PCP - General Family Medicine 09/24/14 Doreen Jerome, RN Specialty Sales Trainer Oncology 02/09/19 Js Cruz DO [address] [place] [address] Hematology/Oncology 08/28/22 Fang Cote MD [address] [place] [id number] Gynecology 08/28/22 Champ Nichols [address] [place] [address] Ophthalmology 10/20/23 Vesna Decker RN Specialty Sales Trainer Decontamination Technician Oncology 05/17/24 Karishma Ravi APRN.[facility] [address] [place], [place] [phone] Cushion Spring Assembler Family Medicine 05/27/24 Bianca Duncan PA-C [address] [place], [place] 168091 C[employer]ion Spring Assembler Family Medicine 05/27/24 Larriman Relationship Specialty Start Date End Date Shay Cardoza MD [address] [place], [place] 310571 PCP - General Family Medicine 09/24/14 Doreen Jerome, RN Specialty Sales Trainer Oncology 02/09/19 Js Cruz DO [address] [place] [address] Hematology/Oncology 08/28/22 Fang Cote MD [address] [facility] [address] [place] [address] Gynecology 08/28/22 Champ Nichols [address] [place], [place] [address] Ophthalmology 10/20/23 Vesna Decker, RN Specialty Sales Trainer Decontamination Technician Oncology 05/17/24 Karishma Ravi APRN.[facility] [address] [place], [place] [phone] [facility] 05/27/24 Bianca Duncan PA-C [address] [place], [place] [phone] [facility] 05/27/24 Larriman Relationship Specialty Start Date End Date Shay Cardoza MD [address] [place], [place] [id number] PCP - General Family Medicine 09/24/14 Doreen Jerome RN Specialty Sales Trainer Oncology 02/09/19 Js Cruz DO [address] [place], [place] [id number] Hematology/Oncology 08/28/22 Fang Cote MD [address] [facility] [address] [place] [address] Gynecology 08/28/22 Champ Nichols [address] [place] [address] Ophthalmology 10/20/23 Vesna Decker, RN Specialty Sales Trainer Decontamination Technician Oncology 05/17/24 Karishma Ravi APRN.[employer] [address] [place], [place] [phone] [facility] 05/27/24 Bianac Duncan PA-C [address] [place], [place] [phone] [facility] [facility] 05[facility]24 Larriman Relationship Specialty Start Date End Date Shay Cardoza MD [address] [place], [place] [id number] PCP - General Family Medicine 09/24/14 Doreen Jerome RN Specialty Sales Trainer Oncology 02/09/19 Js Cruz DO [address] [place], [place] [id number] Hematology/Oncology 08/28/22 Fang Cote MD [address] [id number] Gynecology 08/28/22 Champ Nichols [address] [place] [address] Ophthalmology 10/20/23 Vesna Decker, RN Specialty Sales Trainer Decontamination Technician Oncology 05/17/24 Karishma Ravi APRN.REGIONAL WILDLIFE AGENT [address] [place], [place] [phone] [facility] Family [facility] 05/27/24 Bianca Duncan PA-C [address] [place], [place] [phone] Cushion Spring Assembler Family Medicine 05/27/24 Larriman Relationship Specialty Start Date End Date Shay Cardoza MD [address] [place], [place] 868751 PCP - General Family Medicine 09/24/14 Doreen Jerome, RN Specialty Sales Trainer Oncology 02/09/19 Js Cruz DO [address] [place] [address] Hematology/Oncology 08/28/22 Fang Cote MD [address] [id number] Gynecology 08/28/22 Champ Nichols [address] [place] [address] Ophthalmology 10/20/23 Vesna Decker RN Specialty Sales Trainer Decontamination Technician Oncology 05/17/24 Karishma Ravi APRN.[facility] [address] [place], [place] [phone] [facility] 05/27/24 Bianca Duncan PA-C [address] [place], [place] [id number] [facility] 05/27/24 Larriman Relationship Specialty Start Date End Date Shay Cardoza MD [address] [place], [place] [id number] PCP - General Family Medicine 09/24/14 Doreen Jerome, RN Specialty Sales Trainer Oncology 02/09/19 Js Cruz DO [address] [place], [place] [id number] Hematology/Oncology 08/28/22 Fang Cote MD [address] [facility] [address] [place] [address] Gynecology 08/28/22 Champ Nichols [address] [place] [address] Ophthalmology 10/20/23 Vesna Decker RN Specialty Sales Trainer Decontamination Technician Oncology 05/17/24 Karishma Ravi APRN.[facility] [address] [place], [place] [phone] Cushion Spring Assembler Family Medicine 05/27/24 Bianca Duncan PA-C [address] [place], [place] [phone] Cushion Spring Assembler Family Medicine 05/27/24 Larriman Relationship Specialty Start Date End Date Shay Cardoza MD [address] [place], [place] [id number] PCP - General Family Medicine 09/24/14 Doreen Jerome RN Specialty Sales Trainer Oncology 02/09/19 Js Cruz DO [address] [place] [address] Hematology/Oncology 08/28/22 Fang Cote MD [address] [facility] [address] [place] [address] Gynecology 08/28/22 Champ Nichols [address] [place] [address] Ophthalmology 10/20/23 Vesna Decker, RN Specialty Sales Trainer Decontamination Technician Oncology 05/17/24 Karishma Ravi APRN.REGIONAL WILDLIFE AGENT [address] [place], [place] [id number] Cushion Spring Assembler [facility] 05/27/24 Bianca Duncan PA-C [address] [place] [address] [phone] [facility] 05/27/24 Larriman Relationship Specialty Start Date End Date Shay Cardoza MD [facility]0 [place], [place] [id number] PCP - General Family Medicine 09/24/14 Doreen Jerome RN Specialty Sales Trainer Oncology 02/09/19 Js Cruz DO [address] [place] [address] Hematology/Oncology 08/28/22 Fang Cote MD [address] [place] [address] Gynecology 08/28/22 Champ Nichols [facility]9 [place] [address] Ophthalmology 10/20/23 Vesna Decker, RN Specialty Sales Trainer Decontamination Technician Oncology 05/17/24 Karishma Ravi APRN.REGIONAL WILDLIFE AGENT [address] [place] [address] [phone] [facility] 05/27/24 Bianca Duncan PA-C [facility] [place], [place] [phone] Cushion Spring Assembler Family Medicine 05/27/24 Larriman Relationship Specialty Start Date End Date Shay Cardoza MD [facility] [place], [place] [id number] PCP - General Family Medicine 09/24/14 Doreen Jerome, RN Specialty Sales Trainer Oncology 02/09/19 Js Cruz DO [address] [place] [address] Hematology/Oncology 08/28/22 Fang Cote MD [address] [place] [address] Gynecology 08/28/22 Champ Nichols [address] [place] [address] Ophthalmology 10/20/23 Vesna Decker RN Specialty Sales Trainer Decontamination Technician Oncology 05/17/24 Karishma Ravi APRN.[facility] [address] [place] [address] [phone] Cushion Spring Assembler Family [facility] 05/27/24 Bianca Duncan PA-C [facility] [place], [place] 937451 Cushion Spring Assembler Family [facility] 05/27/24 Larriman Relationship Specialty Start Date End Date Shay Cardoza MD [facility] [place], [place] [phone] PCP - General Family Medicine 09/24/14 Doreen Jerome, RN Specialty Sales Trainer Oncology 02/09/19 Js Cruz DO [address] [place] [address] Hematology/Oncology 08/28/22 Fang Cote MD [address] [facility] 160 [place] [address] Gynecology 08/28/22 Champ Nichols [address] [place], [place] 317621 Ophthalmology 10/20/23 Vesna Decker RN Specialty Sales Trainer Decontamination Technician Oncology 05/17/24 Karishma Ravi APRN.[facility] [address] [place], [place] [phone] Cushion Spring Assembler Family Medicine 05/27/24 Bianca Duncan PA-C [address] [place] [address] Cushion Spring Assembler Family Medicine 05/27/24 Larriman Relationship Specialty Start Date End Date Shay Cardoza MD [address] [place] [address] PCP - General Family Medicine 09/24/14 Doreen Jerome RN Specialty Sales Trainer Oncology 02/09/19 Js Cruz DO [address] [place], [place] [phone] Hematology/Oncology 08/28/22 Fang Cote MD [address] [facility] [address] [place] [address] Gynecology 08/28/22 Champ Nichols [address] [place] [address] Ophthalmology 10/20/23 Vesna Decker, RN Specialty Sales Trainer Decontamination Technician Oncology 05/17/24 Karishma Ravi APRN.REGIONAL WILDLIFE AGENT [address] [place], [place] 013631 Cushion Spring Assembler Family Medicine 05/27/24 Bianca Duncan PA-C [address] [place], [place] 380721 Cushion Spring Assembler Family [facility] 05/27/24 Larriman Relationship Specialty Start Date End Date Shay Cardoza MD [address] [place], [place] [phone] PCP - General Family Medicine 09/24/14 Doreen Jerome RN Specialty Sales Trainer Oncology 02/09/19 Js Cruz DO [address] [place] [address] Hematology/Oncology 08/28/22 Fang Cote MD [address] [place] [address] Gynecology 08/28/22 Champ Nichols [facility]9 [place] [address] Ophthalmology 10/20/23 Vesna Decker, RN Specialty Sales Trainer Decontamination Technician Oncology 05/17/24 Karishma Ravi APRN.REGIONAL WILDLIFE AGENT [address] [place], [place] [phone] Cushion Spring Assembler Family [facility] 05/27/24 Bianca Duncan PA-C [address] [place] [address] Cushion Spring Assembler Family Medicine 05/27/24 Larriman Relationship Specialty Start Date End Date Shay Cardoza MD [address] [place] [address] PCP - General Family Medicine 09/24/14 Doreen Jerome RN Specialty Sales Trainer Oncology 02/09/19 Js Cruz DO [address] [place] [address] Hematology/Oncology 08/28/22 Fang Cote MD [address] [place] [address] Gynecology 08/28/22 Champ Nichols [address] [place] [address] Ophthalmology 10/20/23 Vesna Decker, RN Specialty Sales Trainer Decontamination Technician Oncology 05/17/24 Karishma Ravi APRN.[facility] [address] [place], [place] [phone] Cushion Spring Assembler Family Medicine 05/27/24 Bianca Duncan PA-C [address] [place], [place] 496111 Cushion Spring Assembler Family Medicine 05/27/24 Larriman Relationship Specialty Start Date End Date Shay Cardoza MD [address] [place] [address] PCP - General Family Medicine 09/24/14 Doreen Jerome RN Specialty Sales Trainer Oncology 02/09/19 Js Cruz DO [address] [place] [address] Hematology/Oncology 08/28/22 Fang Cote MD [address] [facility] [address] [place] [address] Gynecology 08/28/22 Champ Nichols [address] [place] [address] Ophthalmology 10/20/23 Vesna Decker RN Specialty Sales Trainer Decontamination Technician Oncology 05/17/24 Karishma Ravi APRN.[facility] [address] [place], [place] 428441 Cushion Spring Assembler Family Medicine 05/27/24 Bianca Duncan PA-C [address] [place] [address] Cushion Spring Assembler Family Medicine 05/27/24 Larriman Relationship Specialty Start Date End Date Shay Cardoza MD [address] [place] [address] PCP - General Family Medicine 09/24/14 Doreen Jerome RN Specialty Sales Trainer Oncology 02/09/19 Js Cruz DO [address] [place] [address] Hematology/Oncology 08/28/22 Fang Cote MD [address] [address] Gynecology 08/28/22 Champ Nichols [address] [place] [address] Ophthalmology 10/20/23 Vesna Decker, RN Specialty Sales Trainer Decontamination Technician Oncology 05/17/24 Karishma Ravi APRN.REGIONAL WILDLIFE AGENT [address] [place] [phone] Cushion Spring Assembler Family Medicine 05/27/24 Bianca Duncan PA-C [address] [place] [address] 315321 Cushion Spring Assembler Family Medicine 05/27/24 Larriman Relationship Specialty Start Date End Date Shay Cardoza MD [address] [place] [address] [phone] PCP - General Family Medicine 09/24/14 Doreen Jerome RN Specialty Sales Trainer Oncology 02/09/19 Js Cruz DO [address] [place] [address] Hematology/Oncology 08/28/22 Fang Cote MD [address] [place] [address] Gynecology 08/28/22 Champ Nichols [address] [place] [address] Ophthalmology 10/20/23 Vesna Decker, RN Specialty Sales Trainer Decontamination Technician Oncology 05/17/24 Karishma Ravi APRN.REGIONAL WILDLIFE AGENT [address] [place] [address] [phone] Cushion Spring Assembler Family Medicine 05/27/24 Bianca Duncan PA-C [address] [place] [address] Cushion Spring Assembler Family Medicine 05/27/24 Larriman Relationship Specialty Start Date End Date Shay Cardoza MD [address] [place] [address] PCP - General Family Medicine 09/24/14 Doreen Jerome RN Specialty Sales Trainer Oncology 02/09/19 Js Cruz DO [address] [place], [place] 763101 Hematology/Oncology 08/28/22 Fang Cote MD [address] [place] [address] [phone] Gynecology 08/28/22 Champ Nichols [facility]9 [place] [address] Ophthalmology 10/20/23 Vesna Decker, RN Specialty Sales Trainer Decontamination Technician Oncology 05/17/24 Karishma Ravi APRN.[facility] [address] [place], [place] 385641 Cushion Spring Assembler Family Medicine 05/27/24 Bianca Duncan PA-C [address] [place], [place] 376751 Cushion Spring Assembler Family Medicine 05/27/24 Larriman Relationship Specialty Start Date End Date Shay Cardoza MD [address] [place] [address] PCP - General Family Medicine 09/24/14 Doreen Jerome, RN Specialty Sales Trainer Oncology 02/09/19 Js Cruz DO [address] [place] [address] Hematology/Oncology 08/28/22 Fang Cote MD [address] [facility] [address] [place] [address] Gynecology 08/28/22 Champ Nichols [facility]9 [place] [address] Ophthalmology 10/20/23 Vesna Decker, RN Specialty Sales Trainer Decontamination Technician Oncology 05/17/24 Karishma Ravi APRN.[facility] [address] [place], [place] 946061 Cushion Spring Assembler Family Medicine 05/27/24 Bianca Duncan PA-C [address] [place] [address] Cushion Spring Assembler Family Medicine 05/27/24 Larriman Relationship Specialty Start Date End Date Shay Cardoza MD [address] [place] [address] PCP - General Family Medicine 09/24/14 Doreen Jerome RN Specialty Sales Trainer Oncology 02/09/19 Js Cruz DO [address] [place] [address] Hematology/Oncology 08/28/22 Fang Cote MD [address] [facility] 160 [place] [address] Gynecology 08/28/22 Champ Nichols [address] [place] [address] Ophthalmology 10/20/23 Vesna Decker, RN Specialty Sales Trainer Decontamination Technician Oncology 05/17/24 Karishma Ravi APRN.REGIONAL WILDLIFE AGENT [address] [place], [place] [phone] Cushion Spring Assembler Family Medicine 05/27/24 Bianca Duncan PA-C [address] [place], [place] [phone] [facility] 05/27/24 Larriman Relationship Specialty Start Date End Date Shay Cardoza MD [address] [place], [place] [id number] PCP - General Family Medicine 09/24/14 Doreen Jerome RN Specialty Sales Trainer Oncology 02/09/19 Js Cruz DO [address] [place], [place] [phone] Hematology/Oncology 08/28/22 Fang Cote MD [address] [address] Gynecology 08/28/22 Champ Nichols [address] [place] [address] Ophthalmology 10/20/23 Vesna Decker, RN Specialty Sales Trainer Decontamination Technician Oncology 05/17/24 Karishma Ravi APRN.REGIONAL WILDLIFE AGENT [address] [place], [place] [phone] Cushion Spring Assembler Family Medicine 05/27/24 Bianca Duncan PA-C [address] [place], [place] 074141 Cushion Spring Assembler Family [facility] 05/27/24 Larriman Relationship Specialty Start Date End Date Shay Cardoza MD [address] [place], [place] 780131 PCP - General Family Medicine 09/24/14 Doreen Jerome, RN Specialty Sales Trainer Oncology 02/09/19 Js Cruz DO [address] [place], [place] [id number] Hematology/Oncology 08/28/22 Fang Cote MD [address] [place] [address] [phone] Gynecology 08/28/22 Champ Nichols [address] [place] [address] Ophthalmology 10/20/23 Vesna Decker, RN Specialty Sales Trainer Decontamination Technician Oncology 05/17/24 Karishma Ravi APRN.[facility] [address] [place], [place] 338641 Cushion Spring Assembler [facility] 05/27/24 Bianca Duncan PA-C [address] [place], [place] 048301 Cushion Spring Assembler [facility] 05/27/24 Larriman Relationship Specialty Start Date End Date Shay Cardoza MD [address] [place] [address] PCP - General Family Medicine 09/24/14 Doreen Jerome, RN Specialty Sales Trainer Oncology 02/09/19 Js Cruz DO [address] [place] [address] Hematology/Oncology 08/28/22 Fang Cote MD [address] [facility] [address] [place] [address] Gynecology 08/28/22 Champ Nichols [address] [place] [address] Ophthalmology 10/20/23 Vesna Decker RN Specialty Sales Trainer Decontamination Technician Oncology 05/17/24 Karishma Ravi APRN.[facility] [address] [place] [address] Cushion Spring Assembler Family Medicine 05/27/24 Bianca Duncan PA-C [address] [place] [address] [facility] Family [facility] 05/27/24 Prachi Cline, SHEILA [address] [place], [place] [id number] Primary Care Synthetic Plasterer 08/15/24 Larriman Relationship Specialty Start Date End Date Shay Cardoza MD [address] [place] [address] PCP - General Family Medicine 09/24/14 Doreen Jerome RN Specialty Sales Trainer Oncology 02/09/19 Js Cruz DO [address] [place] [address] Hematology/Oncology 08/28/22 Fang Cote MD [address] [facility] [address] [place] [address] Gynecology 08/28/22 Champ Nichols [address] [place] [address] Ophthalmology 10/20/23 Vesna Decker RN Specialty Sales Trainer Decontamination Technician Oncology 05/17/24 Karishma Ravi, HECTOR.REGIONAL WILDLIFE AGENT [address] [place], [place] 354071 Cushion Spring Assembler Family Medicine 05/27/24 Bianca Duncan PA-C [address] [place] [address] 113961 Cushion Spring Assembler Family Medicine 05/27/24 Prachi Cline, SHEILA [address] [place], [place] 0759131 Primary Care Synthetic Plasterer 08/15/24 Larriman Relationship Specialty Start Date End Date Shay Cardoza MD [address] [place] [address] [id number] PCP - General Family Medicine 09/24/14 Doreen Jerome RN Specialty Sales Trainer Oncology 02/09/19 Js Cruz DO [address] [place] [address] Hematology/Oncology 08/28/22 Fang Cote MD [address] [facility] [address] [place] [address] Gynecology 08/28/22 Champ Nichols [address] [place] [address] Ophthalmology 10/20/23 Vesna Decker, RN Specialty Sales Trainer Decontamination Technician Oncology 05/17/24 Karishma Ravi APRN.REGIONAL WILDLIFE AGENT [address] [place], [place] 595691 [facility] 05/27/24 Bianca Duncan PA-C [address] [place], [place] 099391 [facility] 05/27/24 Prachi Cline, SHEILA [address] [place], [place] 2076131 Primary Care Synthetic Plasterer 08/15/24 Larriman Relationship Specialty Start Date End Date Shay Cardoza MD [address] [place], [place] [phone] PCP - General Family Medicine 09/24/14 Doreen Jerome RN Specialty Sales Trainer Oncology 02/09/19 Js Cruz DO [address] [place] [address] Hematology/Oncology 08/28/22 Fang Cote MD [address] [address] Gynecology 08/28/22 Champ Nichols [facility]9 [place] [address] Ophthalmology 10/20/23 Vesna Decker, RN Specialty Sales Trainer Decontamination Technician Oncology 05/17/24 Karishma Ravi APRN.REGIONAL WILDLIFE AGENT [address] [place] [address] [phone] [facility] Medicine 05/27/24 Bianca Duncan PA-C [address] [place], [place] 113031 Cushion Spring Assembler Family Medicine 05/27/24 Prachi Cline RN [address] [place], [place] 6604131 Primary Care Synthetic Plasterer 08/15/24 Larriman Relationship Specialty Start Date End Date Shay Cardoza MD [address] [place] [address] PCP - General Family Medicine 09/24/14 Doreen Jerome RN Specialty Sales Trainer Oncology 02/09/19 Js Cruz DO [address] [place], [place] 339191 Hematology/Oncology 08/28/22 Fang Cote MD [address] [place] [address] Gynecology 08/28/22 Champ Nichols [address] [place] [address] Ophthalmology 10/20/23 Vesna Decker RN Specialty Sales Trainer Decontamination Technician Oncology 05/17/24 Karishma Ravi APRN.[employer]ION[employer] WILDLIFE AGENT [address] [place] [address] Cushion Spring Assembler Family Medicine 05/27/24 Bianca Duncan PA-C [address] [place] [address] Cushion Spring Assembler Family Medicine 05/27/24 Prachi Cline RN [address] [place] [address] Primary Care Synthetic Plasterer 08/15/24 Larriman Relationship Specialty Start Date End Date Shay Cardoza MD [address] [place] [address] PCP - General Family Medicine 09/24/14 Doreen Jerome RN Specialty Sales Trainer Oncology 02/09/19 Js Cruz DO [address] [place] [address] Hematology/Oncology 08/28/22 Fang Cote MD [address] [place] [address] Gynecology 08/28/22 Champ Nichols [facility]9 [place] [address] Ophthalmology 10/20/23 Vesna Decker RN Specialty Sales Trainer Decontamination Technician Oncology 05/17/24 Karishma Ravi APRN.[facility] [address] [place] [address] Cushion Spring Assembler Family Medicine 05/27/24 Bianca Duncan PA-C [address] [place] [address] Cushion Spring Assembler Family Medicine 05/27/24 Prachi Cline, SHEILA [address] [place] [address] Primary Care Synthetic Plasterer 08/15/24 Larriman Relationship Specialty Start Date End Date Shay Cardoza MD [address] [place] [address] PCP - General Family Medicine 09/24/14 Doup, Doreen, RN Specialty Sales Trainer Oncology 02/09/19 Js Cruz DO [address] [place] [address] Hematology/Oncology 08/28/22 Fang Cote MD [address] [facility] [address] [place] [address] Gynecology 08/28/22 Champ Nichols [address] [place] [address] Ophthalmology 10/20/23 Vesna Decker RN Specialty Sales Trainer Decontamination Technician Oncology 05/17/24 Karishma Ravi APRN.[facility] [address] [place] [address] Cushion Spring Assembler Family Medicine 05/27/24 Bianca Duncan PA-C [address] [place] [address] Cushion Spring Assembler Family Medicine 05/27/24 Prachi Cline, SHEILA [address] [place], [place] 6666031 Primary Care Synthetic Plasterer 08/15/24 Larriman Relationship Specialty Start Date End Date Shay Cardoza MD [address] [place] [address] PCP - General Family Medicine 09/24/14 Doreen Jerome RN Specialty Sales Trainer Oncology 02/09/19 Js Cruz DO [address] [place] [address] Hematology/Oncology 08/28/22 Fang Cote MD [address] [facility] [address] [place] [address] Gynecology 08/28/22 Champ Nichols [address] [place], [place] 845751 Ophthalmology 10/20/23 Vesna Decker RN Specialty Sales Trainer Decontamination Technician Oncology 05/17/24 Karishma Ravi APRN.[employer] WILDLIFE AGENT [address] [place], [place] 611671 Cushion Spring Assembler Family Medicine 05/27/24 Bianca Duncan PA-C [address] [place] [address] 075091 Cushion Spring Assembler Family Medicine 05/27/24 Prachi Cline RN [address] [place] [address] Primary Care Synthetic Plasterer 08/15/24 Larriman Relationship Specialty Start Date End Date Shay Cardoza MD [address] [place] [address] [phone] PCP - General Family Medicine 09/24/14 Doreen Jerome RN Specialty Sales Trainer Oncology 02/09/19 Js Cruz DO [address] [place], [place] [phone] Hematology/Oncology 08/28/22 Fang Cote MD [address] [facility] [address] [place] [address] Gynecology 08/28/22 Champ Nichols [address] [place], [place] [phone] Ophthalmology 10/20/23 Vesna Decker RN Specialty Sales Trainer Decontamination Technician Oncology 05/17/24 Karishma Ravi APRN.REGIONAL WILDLIFE AGENT [address] [place], [place] 130571 [facility] 05/27/24 Bianca Duncan PA-C [address] [place], [place] [phone] [facility] 05/27/24 Prachi Cline, SHEILA [address] [place], [place] 1008731 Primary Care Synthetic Plasterer 08/15/24 Larriman Relationship Specialty Start Date End Date Shay Cardoza MD [address] [place], [place] [id number] PCP - General Family Medicine 09/24/14 Doreen Jerome RN Specialty Sales Trainer Oncology 02/09/19 Js Cruz DO [address] [place], [place] [phone] Hematology/Oncology 08/28/22 Fang Cote MD [address] [address] Gynecology 08/28/22 Champ Nichols [address] [place] [address] Ophthalmology 10/20/23 Vesna Decker, RN Specialty Sales Trainer Decontamination Technician Oncology 05/17/24 Karishma Ravi APRN.[employer]ION[employer] WILDLIFE AGENT [address] [place], [place] [phone] [facility] 05/27/24 Bianca Duncan PA-C [address] [place], [place] 806561 Cushion Spring Assembler Family Medicine 05/27/24 Prachi Cline RN [address] [place] [address] Primary Care Synthetic Plasterer 08/15/24 Larriman Relationship Specialty Start Date End Date Shay Cardoza MD [address] [place] [address] PCP - General Family Medicine 09/24/14 Doreen Jerome RN Specialty Sales Trainer Oncology 02/09/19 Js Cruz DO [address] [place] [address] Hematology/Oncology 08/28/22 Fang Cote MD [address] [place] [address] Gynecology 08/28/22 Champ Nichols [address] [place] [address] Ophthalmology 10/20/23 Vesna Decker RN Specialty Sales Trainer Decontamination Technician Oncology 05/17/24 Karishma Ravi APRN.[employer]ILDL[employer] AG[employer] [address] [place], [place] 415631 Cushion Spring Assembler Family [facility] 05/27/24 Bianca Duncan PA-C [address] [place] [address] Cushion Spring Assembler Family Medicine 05/27/24 Prachi Cline RN [address] [place] [address] Primary Care Synthetic Plasterer 08/15/24 09/07/24 Larriman Relationship Specialty Start Date End Date Shay Cardoza MD [address] [place], [place] 934131 PCP - General Family Medicine 09/24/14 Doreen Jerome, SHEILA Specialty Sales Trainer Oncology 02/09/19 Js Cruz DO [address] [place] [address] Hematology/Oncology 08/28/22 Fang Cote MD [address] [place] [address] Gynecology 08/28/22 Champ Nichols [facility]9 [place] [address] Ophthalmology 10/20/23 Vesna Decker RN Specialty Sales Trainer Decontamination Technician Oncology 05/17/24 Karishma Ravi APRN.[facility] [address] [place] [address] [phone] Cushion Spring Assembler Family Medicine 05/27/24 Bianca Duncan PA-C [address] [place] [address] Cushion Spring Assembler Family Medicine 05/27/24 Prachi Cline, SHEILA [address] [place] [address] Primary Care Synthetic Plasterer 08/15/24 09/07/24 Larriman Relationship Specialty Start Date End Date Shay Cardoza MD [address] [place] [address] PCP - General Family Medicine 09/24/14 Doup, Doreen, RN Specialty Sales Trainer Oncology 02/09/19 Js Cruz DO [address] [place] [address] Hematology/Oncology 08/28/22 Fang Cote MD [address] [facility] [address] [place] [address] Gynecology 08/28/22 Champ Nichols [address] [place] [address] Ophthalmology 10/20/23 Vesna Decker RN Specialty Sales Trainer Decontamination Technician Oncology 05/17/24 Karishma Ravi APRN.[facility] [address] [place], [place] [phone] Cushion Spring Assembler Family Medicine 05/27/24 Bianca Duncan PA-C [address] [place], [place] 943271 [facility] Family Medicine 05/27/24 Larriman Relationship Specialty Start Date End Date Shay Cardoza MD [address] [place] [address] PCP - General Family Medicine 09/24/14 Doreen Jerome RN Specialty Sales Trainer Oncology 02/09/19 Js Cruz DO [address] [place] [address] Hematology/Oncology 08/28/22 Fang Cote MD [address] [facility] [address] [place] [address] Gynecology 08/28/22 Champ Nichols [address] [place], [place] 619241 Ophthalmology 10/20/23 Vesna Decker, RN Specialty Sales Trainer Decontamination Technician Oncology 05/17/24 Karishma Ravi APRN.[employer]ILDLIFE AG[employer] [address] [place], [place] [phone] [facility] 05/27/24 Bianca Duncan PA-C [address] [place], [place] [id number] [facility] 05/27/24 Larriman Relationship Specialty Start Date End Date Shay Cardoza MD [address] [place], [place] [id number] PCP - General Family Medicine 09/24/14 Doreen Jerome RN Specialty Sales Trainer Oncology 02/09/19 Js Cruz DO [address] [place], [place] [id number] Hematology/Oncology 08/28/22 Fang Cote MD [address] [phone] Gynecology 08/28/22 Champ Nichols [address] [place], [place] 520991 Ophthalmology 10/20/23 Vesna Decker, RN Specialty Sales Trainer Decontamination Technician Oncology 05/17/24 Karishma Ravi APRN.REGIONAL WILDLIFE AGENT [address] [place], [place] [phone] [facility] 05/27/24 Bianca Duncan PA-C [address] [place], [place] 328341 [facility] Spring As[facility]er Family [facility] 05/27/24 Prachi Cline, SHEILA [address] [place], [place] [id number] Primary Care Synthetic Plasterer 08/15/24 09/07/24 Larriman Relationship Specialty Start Date End Date Shay Cardoza MD [address] [place], [place] 808771 PCP - General Family Medicine 09/24/14 Doreen Jerome RN Specialty Sales Trainer Oncology 02/09/19 Js Cruz DO [address] [place], [place] [id number] Hematology/Oncology 08/28/22 Fang Cote MD [address] [address] Attending Gynecology 08/28/22 Champ Nichols [address] [place] [address] Ophthalmology 10/20/23 Vesna Decker, RN Specialty Sales Trainer Decontamination Technician Oncology 05/17/24 Karishma Ravi APRN.REGIONAL WILDLIFE AGENT [address] [place], [place] 898391 [facility] 05/27/24 Bianca Duncan PA-C [address] [place] [address] [facility] Spring As[facility]er Family [facility] 05/27/24 Larriman Relationship Specialty Start Date End Date Shay Cardoza MD [address] [place], [place] 211601 PCP - General Family Medicine 09/24/14 Doreen Jerome RN Specialty Sales Trainer Oncology 02/09/19 Js Cruz DO [address] [place], [place] [id number] Hematology/Oncology 08/28/22 Fang Cote MD [address] [place] [address] [phone] Attending Gynecology 08/28/22 Champ Nichols [address] [place] [address] Ophthalmology 10/20/23 Vesna Decker RN Specialty Sales Trainer Decontamination Technician Oncology 05/17/24 Karishma Ravi APRN.[facility] [address] [place], [place] [phone] Cushion Spring Assembler Family [facility] 05/27/24 Bianca Duncan PA-C [address] [place], [place] [id number] Cushion Spring Assembler Family [facility] 05/27/24 Larriman Relationship Specialty Start Date End Date Shay Cardoza MD [address] [place], [place] [id number] PCP - General Family Medicine 09/24/14 Doreen Jerome, RN Specialty Sales Trainer Oncology 02/09/19 Js Cruz DO [address] [place], [place] [id number] Hematology/Oncology 08/28/22 Fang Cote MD [address] [place] [address] Attending Gynecology 08/28/22 Champ Nichols [address] [place], [place] 522231 Ophthalmology 10/20/23 Vesna Decker, RN Specialty Sales Trainer Decontamination Technician Oncology 05/17/24 Karishma Ravi APRN.[facility] [address] [place], [place] [phone] [facility] 05/27/24 Bianca Duncan PA-C [address] [place], [place] [phone] [facility] 05/27/24 Larriman Relationship Specialty Start Date End Date Shay Cardoza MD [address] [place], [place] [phone] PCP - General Family Medicine 09/24/14 Doreen Jerome RN Specialty Sales Trainer Oncology 02/09/19 Js Cruz DO [address] [place], [place] [id number] Hematology/Oncology 08/28/22 Fang Cote MD [address] [facility] [address] [place] [address] Attending Gynecology 08/28/22 Champ Nichols [address] [place] [address] Ophthalmology 10/20/23 Vesna Decker, RN Specialty Sales Trainer Decontamination Technician Oncology 05/17/24 Karishma Ravi APRN.REGIONAL WILDLIFE AGENT [address] [place], [place] 978981 [facility] 05/27/24 Bianca Duncan PA-C [address] [place], [place] [phone] [facility] 05/27/24 Larriman Relationship Specialty Start Date End Date Shay Cardoaz MD [address] [place], [place] [id number] PCP - General Family Medicine 09/24/14 Doreen Jerome RN Specialty Sales Trainer Oncology 02/09/19 Js Cruz DO [address] [place], [place] [id number] Hematology/Oncology 08/28/22 Fang Cote MD [address] [place] [address] [phone] Attending Gynecology 08/28/22 Champ Nichols [address] [place] [address] Ophthalmology 10/20/23 Vesna Decker, RN Specialty Sales Trainer Decontamination Technician Oncology 05/17/24 Karishma Ravi APRN.REGIONAL WILDLIFE AGENT [address] [place], [place] [phone] [facility] 05/27/24 Bianca Duncan PA-C [address] [place], [place] [phone] [facility] 05/27/24 Marian Akbar, SHEILA [address] [place] [address] Primary Care Synthetic Plasterer 10/16/24 Larriman Relationship Specialty Start Date End Date Shay Cardoza MD [address] [place] [address] PCP - General Family Medicine 09/24/14 Doreen Jerome RN Specialty Sales Trainer Oncology 02/09/19 Js Cruz DO [address] [place], [place] 003731 Hematology/Oncology 08/28/22 Fang Cote MD [address] [place] [address] [phone] Attending Gynecology 08/28/22 Champ Nichols [facility] [place] [address] Ophthalmology 10/20/23 Vesna Decker RN Specialty Sales Trainer Decontamination Technician Oncology 05/17/24 Karishma Ravi APRN.[facility] [address] [place] [address] [facility] 05/27/24 Bianca Duncan PA-C [address] [place] [address] [facility] 05/27/24 Marian Akbar, SHEILA [address] [place] [address] Primary Care Synthetic Plasterer 10/16/24 Larriman Relationship Specialty Start Date End Date Shay Cardoza MD [address] [place] [address] PCP - General Family Medicine 09/24/14 Doreen Jerome, RN Specialty Sales Trainer Oncology 02/09/19 Js Cruz DO [address] [place], [place] 359361 Hematology/Oncology 08/28/22 Fang Cote MD [address] [place] [address] Attending Gynecology 08/28/22 Champ Nichols [facility] [place] [address] Ophthalmology 10/20/23 Vesna Decker RN Specialty Sales Trainer Decontamination Technician Oncology 05/17/24 Karishma Ravi, HECTOR.[facility] [address] [place], [place] 247951 [facility] 05/27/24 Bianca Duncan PA-C [address] [place] [address] [facility] 05/27/24 Marian Akbar, RN [address] [place] [address] Primary Care Synthetic Plasterer 10/16/24 Larriman Relationship Specialty Start Date End Date Shay Cardoza MD [address] [place] [address] PCP - General Family Medicine 09/24/14 Doreen Jerome, RN Specialty Sales Trainer Oncology 02/09/19 Js Cruz DO [address] [place] [address] Hematology/Oncology 08/28/22 Fang Cote MD [address] [facility] 160 [place] [address] Attending Gynecology 08/28/22 Champ Nichols [address] [place] [address] Ophthalmology 10/20/23 Vesna Decker RN Specialty Sales Trainer Decontamination Technician Oncology 05/17/24 Karishma Ravi APRN.REGIONAL WILDLIFE AGENT [address] [place], [place] [phone] C[facility] Spring As[facility]er [facility] 05/27/24 Bianca Duncan PA-C [address] [place], [place] 002051 [facility] 05/27/24 Marian Akbar, SHEILA [address] [place], [place] [phone] Primary Care Synthetic Plasterer 10/16/24 Larriman Relationship Specialty Start Date End Date Shay Cardoza MD [address] [place], [place] 387221 PCP - General Family Medicine 09/24/14 Doreen Jerome RN Specialty Sales Trainer Oncology 02/09/19 Js Cruz DO [address] [place] [address] Hematology/Oncology 08/28/22 Fang Cote MD [address] [facility] 160 [place] [address] Attending Gynecology 08/28/22 Champ Nichols [address] [place] [address] Ophthalmology 10/20/23 Vesna Decker, RN Specialty Sales Trainer Decontamination Technician Oncology 05/17/24 Karishma Ravi APRN.REGIONAL WILDLIFE AGENT [address] [place] [address] [phone] [facility] 05/27/24 Bianca Duncan PA-C [address] [place] [address] 600161 [facility] 05/27/24 Marian Akbar RN [address] [place] [address] [id number] Primary Care Synthetic Plasterer 10/16/24 Larriman Relationship Specialty Start Date End Date Shay Cardoza MD [address] [place] [address] [id number] PCP - General Family Medicine 09/24/14 Doreen Jerome RN Specialty Sales Trainer Oncology 02/09/19 Js Cruz DO [address] [place], [place] [phone] Hematology/Oncology 08/28/22 Fang Cote MD [address] [place] [address] [phone] Attending Gynecology 08/28/22 Champ Nichols [address] [place], [place] [phone] Ophthalmology 10/20/23 Vesna Decker RN Specialty Sales Trainer Decontamination Technician Oncology 05/17/24 Karishma Ravi APRN.REGIONAL WILDLIFE AGENT [address] [place] [address] [phone] Cushion Spring Assembler [facility] 05/27/24 Bianca Duncan PA-C [address] [place], [place] 517070 [phone] [facility] 05/27/24 Marian Akbar, SHEILA [address] [place] [address] Primary Care Synthetic Plasterer 10/16/24 Larriman Relationship Specialty Start Date End Date Shay Cardoza MD [address] [place], [place] 977051 PCP - General Family Medicine 09/24/14 Doreen Jerome RN Specialty Sales Trainer Oncology 02/09/19 Js Cruz DO [address] [place] [address] Hematology/Oncology 08/28/22 Fang Cote MD [address] [address] Attending Gynecology 08/28/22 Champ Nichols [address] [place] [address] Ophthalmology 10/20/23 Vesna Decker RN Specialty Sales Trainer Decontamination Technician Oncology 05/17/24 Karishma Ravi APRN.REGIONAL WILDLIFE AGENT [address] [place], [place] [id number] [facility] 05/27/24 Bianca Duncan PA-C [address] [place] [address] [facility] 05/27/24 Marian Akbar, SHEILA [address] [place] [address] Primary Care Synthetic Plasterer 10/16/24 Larriman Relationship Specialty Start Date End Date Shay Cardoza MD [address] [place] [address] PCP - General Family Medicine 09/24/14 Doreen Jerome RN Specialty Sales Trainer Oncology 02/09/19 Js Cruz DO [address] [place] [address] Hematology/Oncology 08/28/22 Fang Cote MD [address] [phone] Attending Gynecology 08/28/22 Champ Nichols [address] [place] [address] Ophthalmology 10/20/23 Vesna Decker RN Specialty Sales Trainer Decontamination Technician Oncology 05/17/24 Karishma Ravi APRN.[facility] [address] [place] [address] [facility] 05/27/24 Bianca Duncan PA-C [address] [place] [address] [facility] 05/27/24 Marian Akbar RN [address] [place] [address] Primary Care Synthetic Plasterer 10/16/24 Larriman Relationship Specialty Start Date End Date Shay Cardoza MD [address] [place] [address] PCP - General Family Medicine 09/24/14 Doreen Jerome RN Specialty Sales Trainer Oncology 02/09/19 Js Cruz DO [address] [place] [address] Hematology/Oncology 08/28/22 Fang Cote MD [address] [place] [address] Attending Gynecology 08/28/22 Champ Nichols [address] [place] [address] Ophthalmology 10/20/23 Vesna Decker RN Specialty Sales Trainer Decontamination Technician Oncology 05/17/24 Karishma Ravi, HECTOR.[facility] [address] [place] [address] Cushion Spring Assembler Family [facility] 05/27/24 Bianca Duncan PA-C [address] [place] [address] Cushion Spring Assembler Family [facility] 05/27/24 Marian Akbar, SHEILA [address] [place] [address] Primary Care Synthetic Plasterer 10/16/24 Larriman Relationship Specialty Start Date End Date Shay Cardoza MD [address] [place] [address] PCP - General Family Medicine 09/24/14 Doreen Jerome, RN Specialty Sales Trainer Oncology 02/09/19 Js Cruz DO [address] [facility] [place] [address] Hematology/Oncology 08/28/22 Fang Cote MD [address] [facility] [address] [place] [address] Attending Gynecology 08/28/22 Champ Nichols [address] [place] [address] Ophthalmology 10/20/23 Vesna Decker RN Specialty Sales Trainer Decontamination Technician Oncology 05/17/24 Karishma Ravi APRN.[employer]ION[employer] WILDLIFE AGENT [address] [place], [place] 961061 [facility] 05/27/24 Bianca Duncan PA-C [address] [place], [place] 288881 [facility] 05/27/24 Marian Akbar, SHEILA [address] [place], [place] [phone] Primary Care Synthetic Plasterer 10/16/24 Larriman Relationship Specialty Start Date End Date Shay Cardoza MD [address] [place], [place] 518281 PCP - General Family Medicine 09/24/14 Doreen Jerome RN Specialty Sales Trainer Oncology 02/09/19 Js Cruz DO [address] [place], [place] 947561 Hematology/Oncology 08/28/22 Fang Cote MD [address] [facility] 160 [place] [address] Attending Gynecology 08/28/22 Champ Nichols [address] [place] [address] Ophthalmology 10/20/23 Vesna Decker, RN Specialty Sales Trainer Decontamination Technician Oncology 05/17/24 Karishma Ravi APRN.REGIONAL WILDLIFE AGENT [address] [place] [address] [phone] Cushion Spring Assembler Family [facility] 05/27/24 Bianca Duncan PA-C [address] [place], [place] 833341 Cushion Spring Assembler Family [facility] 05/27/24 Marian Akbar, SHEILA [address] [place] [address] Primary Care Synthetic Plasterer 10/16/24 Larriman Relationship Specialty [place] [address] [place] [address] [id number] PCP - General Family Medicine 09/24/14 Doreen Jerome RN Specialty Sales Trainer Oncology 02/09/19 Js Cruz DO [address] [place], [place] [phone] Hematology/Oncology 08/28/22 Fang Cote MD [address] [phone] Attending Gynecology 08/28/22 Champ Nichols [address] [place] [address] Ophthalmology 10/20/23 Vesna Decker, RN Specialty Sales Trainer Decontamination Technician Oncology 05/17/24 Karishma Ravi APRN.REGIONAL WILDLIFE AGENT [address] [place] [address] [phone] Cushion Spring Assembler Family [facility] 05/27/24 Bianca Duncan PA-C [address] [place], [place] 551251 Cushion Spring Assembler [facility] 05/27/24 Marian Akbar, RN [address] [place] [address] Primary Care Synthetic Plasterer 10/16/24 Larriman Relationship Specialty Start Date End Date Shay Cardoza MD [address] [place] [address] PCP - General Family Medicine 09/24/14 Doreen Jerome RN Specialty Sales Trainer Oncology 02/09/19 Js Cruz DO [address] [place], [place] [phone] Hematology/Oncology 08/28/22 Fang Cote MD [address] [address] Attending Gynecology 08/28/22 Champ Nichols [address] [place] [address] Ophthalmology 10/20/23 Vesna Decker RN Specialty Sales Trainer Decontamination Technician Oncology 05/17/24 Karishma Ravi APRN.REGIONAL WILDLIFE AGENT [address] [place] [address] [facility] 05/27/24 Bianca Duncan PA-C [address] [place] [address] [facility] 05/27/24 Marian Akbar, SHEILA [address] [place] [address] Primary Care Synthetic Plasterer 10/16/24 Team Status: Active Member Role Status Dates Dr. Shay Cardoza MD Primary Care Provider Active Team Status: Inactive Member Role Status Dates Dr. Shay Cardoza MD Primary Care Provider Active Start: November 03, 2024 End: November 03, 2024 Dr. Js Cruz DO Attending Provider Active art: November 03, 2024 End: November 03, 2024 Dr. Js Cruz DO Referring Provider Active St art: November 03, 2024 End: November 03, 2024 Larriman Relationship Specialty Start Date End Date Shay Cardoza MD [address] [place], [place] [id number] PCP - General Family Medicine 09/24/14 Doreen Jerome RN Specialty Sales Trainer Oncology 02/09/19 Js Cruz DO [address] [place], [place] [id number] Hematology/Oncology 08/28/22 Fang Cote MD 224 [facility] [address] [place], [place] [phone] Attending Gynecology 08/28/22 Champ Nichols [address] [place] [address] Ophthalmology 10/20/23 Vesna Decker RN Specialty Sales Trainer Decontamination Technician Oncology 05/17/24 Bianca Duncan PA-C [address] [place], [place] [id number] [facility] 05/27/24 Marian Akbar, SHEILA [address] [place] [address] Primary Care Synthetic Plasterer 10/16/24 Larriman Relationship Specialty Start Date End Date Shay Cardoza MD [address] [place] [address] PCP - General Family Medicine 09/24/14 Doreen Jerome RN Specialty Sales Trainer Oncology 02/09/19 Js Cruz DO [address] [place] [address] Hematology/Oncology 08/28/22 Fang Cote MD [address] [address] Attending Gynecology 08/28/22 Champ Nichols [address] [place] [address] Ophthalmology 10/20/23 Vesna Decker RN Specialty Sales Trainer Decontamination Technician Oncology 05/17/24 Bianca Duncan PA-C [address] [place] [address] C[facility] 05/27/24 Marian Akbar, SHEILA [address] [place] [phone] Primary Care Synthetic Plasterer 10/16/24 11/14/24 Larriman Relationship Specialty Start Date End Date Shay Cardoza MD [address] [place] [address] PCP - General Family Medicine 09/24/14 Doreen Jerome RN Specialty Sales Trainer Oncology 02/09/19 Js Cruz DO [address] [place] [address] Hematology/Oncology 08/28/22 Fang Cote MD [address] [facility] 160 [place] [address] Attending Gynecology 08/28/22 Champ Nichols [address] [place], [place] 838651 Ophthalmology 10/20/23 Vesna Decker, RN Specialty Sales Trainer Decontamination Technician Oncology 05/17/24 Bianca Duncan PA-C [address] [place], [place] 377921 [facility] 05/27/24 Larriman Relationship Specialty Start Date End Date Shay Cardoza MD [address] [place] [address] PCP - General Family Medicine 09/24/14 Doreen Jerome RN Specialty Sales Trainer Oncology 02/09/19 Js Cruz DO [address] [place] [address] Hematology/Oncology 08/28/22 Fang Cote MD [address] [facility] [address] [place] [address] Attending Gynecology 08/28/22 Champ Nichols [address] [place] [address] Ophthalmology 10/20/23 Vesna Decker, RN Specialty Sales Trainer Decontamination Technician Oncology 05/17/24 Bianca Duncan PA-C [address] [place] [address] [facility] 05/27/24 Larriman Relationship Specialty Start Date End Date Shay Cardoza MD [address] [place] [address] PCP - General Family Medicine 09/24/14 Doreen Jerome RN Specialty Sales Trainer Oncology 02/09/19 Js Cruz DO [address] [place] [address] Hematology/Oncology 08/28/22 Fang Cote MD [address] [address] [place], [place] [phone] Attending Gynecology 08/28/22 Champ Nichols [address] [place] [address] Ophthalmology 10/20/23 Vesna Decker RN Specialty Sales Trainer Decontamination Technician Oncology 05/17/24 Bianca Duncan PA-C [address] [place] [address] [facility] 05/27/24 Larriman Relationship Specialty Start Date End Date Shay Cardoza MD [address] [place] [address] PCP - General Family Medicine 09/24/14 Doreen Jerome RN Specialty Sales Trainer Oncology 02/09/19 Js Cruz DO [address] [place] [address] Hematology/Oncology 08/28/22 Fang Cote MD [address] [facility] [address] [place], [place] [phone] Attending Gynecology 08/28/22 Champ Nichols [address] [place] [address] Ophthalmology 10/20/23 Vesna Decker RN Specialty Sales Trainer Decontamination Technician Oncology 05/17/24 Karishma Ravi APRN.[employer]IONAL WILDLIFE AGENT [address] [place], [place] 078421 Cushion Spring Assembler Family [facility] 05/27/24 11/05/24 Bianca Duncan PA-C [address] [place] [address] Cushion Spring Assembler Family [facility] 05/27/24 11/19/24 Prachi Cline, SHEILA [address] [place], [place] [id number] Primary Care Synthetic Plasterer 08/15/24 09/07/24 Marian Akbar, SHEILA [address] [place], [place] 0749331 Primary Care Synthetic Plasterer 10/16/24 11/14/24 Karishma Ravi, HECTOR.[employer]DLIFE AGENT [address] [place], [place] [phone] C[facility] 11/20/24 Bianca Duncan PA-C [address] [place], [place] 197461 [facility] 11/20/24 Larriman Relationship Specialty Start Date End Date Shay Cardoza MD [address] [place], [place] [phone] PCP - General Family Medicine 09/24/14 Doreen Jerome RN Specialty Sales Trainer Oncology 02/09/19 Js Cruz DO [address] [place] [address] Hematology/Oncology 08/28/22 Fang Cote MD [address] [facility] [address] [place] [address] Attending Gynecology 08/28/22 Champ Nichols [address] [place] [address] Ophthalmology 10/20/23 Vesna Decker, RN Specialty Sales Trainer Decontamination Technician Oncology 05/17/24 Karishma Ravi APRN.[employer]ION[employer] WILDLIFE AGENT [address] [place], [place] 532681 C[facility] 11/20/24 Bianca Duncan PA-C [address] [place] [address] [facility] 11/20/24 Larriman Relationship Specialty Start Date End Date Shay Cardoza MD [address] [place] [address] PCP - General Family Medicine 09/24/14 Doreen Jerome RN Specialty Sales Trainer Oncology 02/09/19 Js Cruz DO [address] [place] [address] Hematology/Oncology 08/28/22 Fang Cote MD [address] [facility] [address] [place] [address] Attending Gynecology 08/28/22 Champ Nichols [facility] [place], [place] 647901 Ophthalmology 10/20/23 Vesna Decker, RN Specialty Sales Trainer Decontamination Technician Oncology 05/17/24 Karishma Ravi APRN.REGIONAL WILDLIFE AGENT [facility]0 [place], [place] 063261 Cushion Spring Assembler Family Medicine 11/20/24 Bianca Duncan PA-C [address] [place] [address] 811711 Cushion Spring Assembler Family Medicine 11/20/24 Larriman Relationship Specialty Start Date End Date Shay Cardoza MD [address] [place] [address] [id number] PCP - General Family Medicine 09/24/14 Doreen Jerome RN Specialty Sales Trainer Oncology 02/09/19 Js Cruz DO [address] [place] [address] Hematology/Oncology 08/28/22 Fang Cote MD [address] [place] [address] Attending Gynecology 08/28/22 Champ Nichols [facility] [place], [place] [phone] Ophthalmology 10/20/23 Vesna Decker, RN Specialty Sales Trainer Decontamination Technician Oncology 05/17/24 Karishma Ravi APRN.REGIONAL WILDLIFE AGENT [address] [place] [address] [phone] Cushion Spring Assembler Family Medicine 11/20/24 Bianca Duncan PA-C [address] [place], [place] 804571 Cushion [facility] 11/20/24 Larriman Relationship Specialty Start Date End Date Shay Cardoza MD [address] [place], [place] 877591 PCP - General Family Medicine 09/24/14 Doreen Jerome, RN Specialty Sales Trainer Oncology 02/09/19 Js Cruz DO [address] [place], [place] [phone] Hematology/Oncology 08/28/22 Fang Cote MD [address] [facility] [address] [place], [place] [phone] Attending Gynecology 08/28/22 Champ Nichols [facility]9 [place] [address] Ophthalmology 10/20/23 Vesna Decker, RN Specialty Sales Trainer Decontamination Technician Oncology 05/17/24 Karishma Ravi APRN.[facility] [address] [place], [place] [phone] Cushion Spring Assembler Family Medicine 11/20/24 Bianca Duncan PA-C [address] [place], [place] 257401 Cushion Spring Assembler [facility] 11/20/24 Team Status: Inactive Member Role Status Dates Dr. Shay Cardoza MD Primary Care Provider Active Start: November 27, 2024 End: November 27, 2024 Dr. Js Cruz DO Attending Provider Active St art: November 27, 2024 End: November 27, 2024 Dr. Js Cruz DO Referring Provider Active St art: November 27, 2024 End: November 27, 2024 Team Status: Inactive Member Role Status Dates Dr. Shay Cardoza MD Primary Care Provider Active Start: November 28, 2024 End: November 28, 2024 Dr. Js Cruz DO Attending Provider Active art: November 28, 2024 End: November 28, 2024 Dr. Js Cruz DO Referring Provider Active art: November 28, 2024 End: November 28, 2024 Larriman Relationship Specialty Start Date End Date Shay Cardoza MD [address] [place], [place] 675891 PCP - General Family Medicine 09/24/14 Doreen Jerome RN Specialty Sales Trainer Oncology 02/09/19 Js Cruz DO [address] [place], [place] [phone] Hematology/Oncology 08/28/22 Fang Cote MD 224 [facility] [address] [place] [address] Attending Gynecology 08/28/22 Champ Nichols [facility]9 [place] [address] Ophthalmology 10/20/23 Vesna Decker RN Specialty Sales Trainer Decontamination Technician Oncology 05/17/24 Karishma Ravi APRN.[employer] [address] [place], [place] [phone] Cushion Spring Assembler Family Medicine 11/20/24 Bianca Duncan PA-C [address] [place] [address] Cushion Spring Assembler Family Medicine 11/20/24 Larriman Relationship Specialty [place] [address] [place] [address] PCP - General Family Medicine 09/24/14 Doreen Jerome, RN Specialty Sales Trainer Oncology 02/09/19 Js Cruz DO [address] [place] [address] Hematology/Oncology 08/28/22 Fang Cote MD [address] [facility] [address] [place] [address] Attending Gynecology 08/28/22 Champ Nichols [address] [place] [address] Ophthalmology 10/20/23 Vesna Decker RN Specialty Sales Trainer Decontamination Technician Oncology 05/17/24 Karishma Ravi APRN.[facility] [facility] [address] [place] [address] Cushion Spring Assembler Family Medicine 11/20/24 Bianca Duncan PA-C [address] [place] [address] [employer]ion Spring Assembler Family Medicine 11/20/24 Larriman Relationship Specialty Start Date End Date Shay Cardoza MD [address] [place] [address] PCP - General Family Medicine 09/24/14 Doreen Jerome, RN Specialty Sales Trainer Oncology 02/09/19 Js Cruz DO [address] [place] [address] Hematology/Oncology 08/28/22 Fang Cote MD [address] [facility] [address] [place] [address] Attending Gynecology 08/28/22 Champ Nichols [address] [place] [address] Ophthalmology 10/20/23 Vesna Decker, RN Specialty Sales Trainer Decontamination Technician Oncology 05/17/24 Karishma Ravi APRN.REGIONAL WILDLIFE AGENT [address] [place] [address] Cushion Spring Assembler Family Medicine 11/20/24 Bianca Duncan PA-C [address] [place] [address] Cushion Spring Assembler Family Medicine 11/20/24 Larriman Relationship Specialty Start Date End Date Shay Cardoza MD [address] [place] [address] PCP - General Family Medicine 09/24/14 Doreen Jerome RN Specialty Sales Trainer Oncology 02/09/19 Js Cruz DO [address] [place] [address] Hematology/Oncology 08/28/22 Fang Cote MD [address] [facility] [address] [place] [address] Attending Gynecology 08/28/22 Champ Nichols [address] [place] [address] Ophthalmology 10/20/23 Vesna Decker, RN Specialty Sales Trainer Decontamination Technician Oncology 05/17/24 Karishma Ravi APRN.REGIONAL WILDLIFE AGENT [address] [place], [place] [address] Cushion Spring Assembler Family Medicine 11/20/24 Bianca Duncan PA-C [address] [place] [address] Cushion Spring Assembler Family Medicine 11/20/24 Larriman Relationship Specialty Start Date End Date Shay Cardoza MD [address] [place], [place] [id number] PCP - General Family Medicine 09/24/14 Doreen Jerome RN Specialty Sales Trainer Oncology 02/09/19 Js Cruz DO [address] [place], [place] [id number] Hematology/Oncology 08/28/22 Fang Cote MD [address] [address] Attending Gynecology 08/28/22 Champ Nichols [address] [place] [address] Ophthalmology 10/20/23 Vesna Decker RN Specialty Sales Trainer Decontamination Technician Oncology 05/17/24 Karishma Ravi, HECTOR.REGIONAL WILDLIFE AGENT [address] [place], [place] [address] Cushion Spring Assembler Family Medicine 11/20/24 Bianca Duncan PA-C [address] [place] [address] Cushion Spring Assembler Family Medicine 11/20/24 Larriman Relationship Specialty Start Date End Date Shay Cardoza MD [address] [place], [place] [id number] PCP - General Family Medicine 09/24/14 Doreen Jerome, RN Specialty Sales Trainer Oncology 02/09/19 Js Cruz DO [address] [place] [address] Hematology/Oncology 08/28/22 Fang Cote MD [address] [address] Attending Gynecology 08/28/22 Champ Nichols [address] [place] [address] Ophthalmology 10/20/23 Vesna Decker RN Specialty Sales Trainer Decontamination Technician Oncology 05/17/24 Karishma Ravi APRN.[facility] [address] [place], [place] [address]131 Cushion Spring Assembler Family Medicine 11/20/24 Bianca Duncan PA-C [address] [place] [address] Cushion Spring Assembler Family Medicine 11/20/24 Larriman Relationship Specialty Start Date End Date Shay Cardoza MD [address] [place] [address] PCP - General Family Medicine 09/24/14 Doreen Jerome RN Specialty Sales Trainer Oncology 02/09/19 Js Cruz DO [address] [place] [address] Hematology/Oncology 08/28/22 Fang Cote MD [address] [id number] Attending Gynecology 08/28/22 Magdalena Miamimarcio Davalos [address] [place] [address] Ophthalmology 10/20/23 Vesna Decker RN Specialty Sales Trainer Decontamination Technician Oncology 05/17/24 Karishma Ravi APRN.REGIONAL WILDLIFE AGENT [address] [place] [id number] Cushion Spring Assembler Family [facility] 05/27/24 11/05/24 Bianca Duncan PA-C [address] [place] [address] Cushion Spring Assembler Family Medicine 05/27/24 11/19/24 Marian Akbar, SHEILA [address] [place] [address] Primary Care Synthetic Plasterer 10/16/24 11/14/24 Karishma Ravi, HECTOR.REGIONAL WILDLIFE AGENT [address] [place] [phone] Family Medicine 11/20/24 Bianca Duncan PA-C [address] [place] [address] [facility] 11/20/24 Larriman Relationship Specialty Start Date End Date Shay Cardoza MD [address] [place] [address] PCP - General Family Medicine 09/24/14 Doreen Jerome RN Specialty Sales Trainer Oncology 02/09/19 Js Cruz DO [address] [place] [address] Hematology/Oncology 08/28/22 Fang Cote MD [address] [facility] [address] [place] [address] Attending Gynecology 08/28/22 Champ Nichols [address] [place] [address] Ophthalmology 10/20/23 Vesna Decker, RN Specialty Sales Trainer Decontamination Technician Oncology 05/17/24 Karishma Ravi APRN.[facility] [address] [place], [place] [address] Cushion Spring Assembler Family Medicine 11/20/24 Bianca Duncan PA-C [address] [place] [address] Cushion Spring Assembler Family Medicine 11/20/24 Larriman Relationship Specialty Start Date End Date Shay Cardoza MD [address] [place] [address] PCP - General Family Medicine 09/24/14 Doreen Jerome RN Specialty Sales Trainer Oncology 02/09/19 Js Cruz DO [address] [place] [address] Hematology/Oncology 08/28/22 Fang Cote MD [address] [facility] [address] [place] [address] Attending Gynecology 08/28/22 Champ Nichols [address] [place] [address] Ophthalmology 10/20/23 Vesna Decker, RN Specialty Sales Trainer Decontamination Technician Oncology 05/17/24 Karishma Ravi APRN.REGIONAL WILDLIFE AGENT [address] [place], [place] [id number] Cushion Spring Assembler Family Medicine 11/20/24 Bianca Duncan PA-C [address] [place], [place] [id number] Cushion Spring Assembler [facility] Medicine 11/20/24 Reason for Visit (unrecogniz ed section and content) Reason Comments Chemotherapy Treatment Specialty Diagnoses / Procedures Referred By [facility] Referred To Contact Diagnoses 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 Js Cruz, DO [address] [place] [address] [facility] [address] [place] [address] Referral ID Status Reason Start Date Expiration Date V isits Requested Visits Authorized [id number] Authorized 07/10/2022 10/08/2022 99 99 Reason Comments Imm/Inj Specialty Diagnoses / Procedures Referred By [facility] Referred To Contact Diagnoses 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) Js Cruz, DO [address] [place] [address] [facility] [address] [place] [address] Reason Comments Port Flush Reason Comments Follow Up Reason Comments Blood Draw (CVAD) Reason Comments Patient Question Reason Comments Radiology MRI Specialty Diagnoses / Procedures Referred By [facility] Referred To Contact MR IMAGING Diagnoses Fibrocystic change of breast, right BRCA2 gene mutation positive in female Personal history of breast cancer Family history of breast cancer Procedures MRI BREAST WO/W IVCON BILAT MRI BREAST WITHOUT&WITH CONTRAST W/CAD BILATERAL Jose Costello PA-C [address] [place] [address] Mr Imaging Referral ID Status Reason Start Date Expiration Date V isits Requested Visits Authorized [id number] Closed Auto-Generate d Referral 07/04/2021 08/03/2022 1 1 Reason Comments F/U 6 months Reason Comments Returning Patient's Call Reason Comments Vaccine question Reason Comments Cancer Results - Ct Reason Comments Lab Orders Reason Comments Results Reason Comments Sales Trainer - Other Reason Comments Follow Up Reason Comments Cancer Specialty Diagnoses / Procedures [facility] Ref[facility] To Contact MR IMAGING Diagnoses Fallopian tube carcinoma, left (HCC) Procedures MRI FEMALE PELVIS WO/W IVCON MRI PELVIS W/O & W/CONTRAST MATERIAL Fang Cote MD [address] [place] [address] Mr Imaging Referral ID Status Reason Start Date Expiration Date V isits Requested Visits Authorized [id number] Closed Auto-Generate d Referral 07/02/2022 07/31/2023 1 1 Reason Comments Cancer Reason Comments Care Coordination Change in Treatment Reason Comments Established Patient Reason Comments Medication Request Antiemetic Reason Comments Care Coordination CYCLE 1/DAY 1 POST T REATMENT CALL Reason Onset Date Comments Refill Request 07/23/2022 Reason Comments Patient Update Hand/finger pain Patient Question Symptoms Reason Comments Care Coordination Toxicity Check Reason Comments Medication Problem Reason Comments Patient Question Patient Update Reason Comments CVAD Access Reason Comments Medicare Wellness Exam Reason Comments Established Patient Reason Comments Sales Trainer - Other C1D1 Post Treat ment Call (Avastin) Reason Comments Sales Trainer - Other Follow-up Reason Comments Cancer Chemotherapy Follow-up Reason Comments Patient Question Orders Reason Comments Established Patient Reason Comments URI Reason Comments Chemotherapy Follow-up Reason Comments Consult Opthalmology Reason Comments AVS 12/07/2022 Reason Comments Clinical Update Specialty Diagnoses / Procedures [facility] Referred To Contact Diagnoses 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) Js Cruz, [address] [place] [address] [facility] [address] [place] [address] Referral ID Status Reason Start Date Expiration Date V isits Requested Visits Authorized [id number] Authorized 12/11/2022 03/11/2023 99 99 Reason Comments Appointment Rescheduled Reason Comments Question Specialty Diagnoses / Procedures Referred By [facility] Referred To Contact Diagnoses 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) Js Cruz, DO [address] [address] [facility] [address] [place] [address] Reason Onset Date Comments Refill Request 01/26/2023 Reason Comments F/U 6 months Reason Comments Patient Update Reason Comments Radiology CT Specialty Diagnoses / Procedures Referred By [facility] t Referred To Contact CT IMAGING Diagnoses 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 of lung Procedures CT CHEST W IVCON DIAGNOSTIC COMPUTED TOMOGRAPHY THORAX W/CONTRAST Kasi Welch APRN.REGIONAL WILDLIFE AGENT [address] [place] [address] [place] [address] Referral ID Status Reason Start Date Expiration Date V isits Requested Visits Authorized [id number] Closed Auto-Generate d Referral 02/12/2023 03/13/2024 1 1 Specialty Diagnoses / Procedures Referred By [facility] Referred To Contact CT IMAGING Diagnoses Malignant neoplasm of both ovaries (HCC) Procedures CT CHEST W IVCON DIAGNOSTIC COMPUTED TOMOGRAPHY THORAX W/CONTRAST Js Cruz, DO [address] [place] [address] [place] [address] Referral ID Status Reason Start Date Expiration Date V isits Requested Visits Authorized [id number] Closed Auto-Generate d Referral 09/18/2022 10/18/2023 1 1 Specialty Diagnoses / Procedures Referred By [facility] t Referred To Contact CT IMAGING Diagnoses Fallopian tube carcinoma, left (HCC) Neoplasm of fallopian tube Procedures CT CHEST W IVCON DIAGNOSTIC COMPUTED TOMOGRAPHY THORAX W/CONTRAST Decontamination [place] [address] [address] [place] [address] [address] Imaging [place] [address] Referral ID Status Reason Start Date Expiration Date V isits Requested Visits Authorized [id number] Closed Auto-Generate d Referral 07/09/2022 07/25/2023 [address] Specialty Diagnoses / Procedures Referred By [facility] t Referred To Contact CT IMAGING Diagnoses 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 Procedures CT ABD/PEL W IVCON CT ABD & PELVIS W/CONTRAST Kasi Welch, CERTIFIED ORTHOTIST/PEDORTHIST.REGIONAL WILDLIFE AGENT [address] [place] [address] Ct Imaging [place] [address] Referral ID Status Reason Start Date Expiration Date V isits Requested Visits Authorized [id number] Closed Auto-Generate d Referral 08/04/2022 09/03/2023 1 1 Specialty Diagnoses / Procedures Referred By [facility] t Referred To Contact CT IMAGING Diagnoses Malignant neoplasm of both ovaries (HCC) Carcinomatosis (HCC) Procedures CT CHEST W IVCON DIAGNOSTIC COMPUTED TOMOGRAPHY THORAX W/CONTRAST Js Cruz, DO [address] [place] [address] Ct Imaging [place] [address] Referral ID Status Reason Start Date Expiration Date V isits Requested Visits Authorized [id number] Closed Auto-Generate d Referral 10/30/2022 11/29/2023 1 1 Specialty Diagnoses / Procedures Referred By [facility] t Referred To Contact CT IMAGING Diagnoses Malignant neoplasm of both ovaries (HCC) Suprapubic pain, acute Procedures CT ABD/PEL W IVCON CT ABD & PELVIS W/CONTRAST Kaley Junior, CERTIFIED ORTHOTIST/PEDORTHIST.REGIONAL WILDLIFE AGENT [address] [place] [address] Ct Imaging [place] [address] Referral ID Status Reason Start Date Expiration Date V isits Requested Visits Authorized [id number] Closed Auto-Generate d Referral 04/15/2022 05/15/2023 1 1 Reason Comments Established Patient Reason Comments Radiology CT Specialty Diagnoses / Procedures Referred By [facility] t Referred To Contact CT IMAGING Diagnoses 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) Procedures CT CHEST W IVCON DIAGNOSTIC COMPUTED TOMOGRAPHY THORAX W/CONTRAST Js Cruz, DO [address] [place] [address] [place] [address] Referral ID Status Reason Start Date Expiration Date V isits Requested Visits Authorized [id number] Closed Auto-Generate d Referral 05/07/2023 06/05/2024 1 1 Reason Comments Sales Trainer - Other Treatment Plann ing Reason Comments pre op Reason Comments Appointment Reason Comments Post Op Reason Comments Nutrition Telephone Reason Comments Post-Op Visit Reason Comments Results Follow Up Reason Comments Patient Question Returning Patient's Call Reason Comments Sales Trainer - Other Change in treat ment Reason Comments AVS 09/08/23, chemo start Reason Comments Established Patient Reason Comments Non-Chemotherapy Treatment Specialty Diagnoses / Procedures [facility]erred To Contact Diagnoses Iron deficiency anemia due to chronic blood loss Iron malabsorption Js Cruz, DO [address] [place] [address] [facility] [address] [place] [address] Referral ID Status Reason Start Date Expiration Date V NanoTunets Requested Visits Authorized [id number] Authorized 09/02/2023 12/01/2023 99 99 Reason Comments Port Flush Access for CT Referral ID Status Reason Start Date Expiration Date V isits Requested Visits Authorized [id number] Closed Auto-Generate d Referral 09/08/2023 10/07/2024 1 1 Specialty Diagnoses / Procedures [facility] Ref[facility] To Contact CT IMAGING Diagnoses Malignant neoplasm of both ovaries (HCC) Carcinomatosis (HCC) Procedures CT CHEST W IVCON DIAGNOSTIC COMPUTED TOMOGRAPHY THORAX W/CONTRAST Js Cruz, DO [address] [address] [place] [address] Reason Comments Care Coordination Questions Reason Comments Appointment Chemo education Reason Comments Care Coordination Follow Up Note Referral ID Status Reason Start Date Expiration Date V isits Requested Visits Authorized [id number] Authorized 09/08/2023 12/07/2023 99 99 Reason Comments Sales Trainer - Other C1D1 Post Treat ment Call ([facility]) Reason Comments Sales Trainer - Other Toxicity Check Reason Comments Orders Specialty Diagnoses / Procedures [facility] Ref[facility] To Contact CT IMAGING Diagnoses 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) Procedures CT ABD/PEL W IVCON CT ABD & PELVIS W/CONTRAST Js Cruz, DO [address] [place] [address] [place] [address] Referral ID Status Reason Start Date Expiration Date V isits Requested Visits Authorized [id number] Closed Auto-Generate d Referral 11/12/2023 12/11/2024 1 1 Specialty Diagnoses / Procedures [facility] Ref[facility] To Contact CT IMAGING Diagnoses 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) Procedures CT ABD/PEL W IVCON CT ABD & PELVIS W/CONTRAST Js Cruz, DO [address] [place] [address] [place] [address] Reason Comments Results Specialty Diagnoses / Procedures Referred By [facility] t Referred To Contact CT IMAGING Diagnoses Pneumonitis Carcinoma of fallopian tube, 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) Procedures CT CHEST WO IVCON DIAGNOSTIC COMPUTED TOMOGRAPHY THORAX W/O CNTRST Js Cruz, DO [address] [place] [address] [place] [address] Referral ID Status Reason Start Date Expiration Date V isits Requested Visits Authorized [id number] Closed Auto-Generate d Referral 12/10/2023 01/08/2025 1 1 Reason Comments Outside Diabetic Eye Exam Referral ID Status Reason Start Date Expiration Date V isits Requested Visits Authorized [id number] Closed Auto-Generate d Referral 01/17/2024 02/15/2025 1 1 Specialty Diagnoses / Procedures Referred By [facility] t Referred To Contact Diagnoses 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) Js Cruz, DO [address] [place] [address] [facility] [address] [place] [address] Referral ID Status Reason Start Date Expiration Date V isits Requested Visits Authorized [id number] Authorized 01/28/2024 04/27/2024 99 99 Reason Comments Sales Trainer - Other C1D1 Post Treat ment Call (Avastin/Topotecan) Reason Comments Medication Question Specialty Diagnoses / Procedures [facility] Referred To Contact Diagnoses 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) Procedures TOPOTECAN INJECTION Js Cruz, DO [address] [facility] [place] [address] [facility] [address] [place] [address] Specialty Diagnoses / Procedures [facility] Referred To Contact CT IMAGING Diagnoses 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) Procedures CT CHEST W IVCON DIAGNOSTIC COMPUTED TOMOGRAPHY THORAX W/CONTRAST Js Cruz, DO [address] [place] [address] [place] [address] Referral ID Status Reason Start Date Expiration Date V isits Requested Visits Authorized [id number] Closed Auto-Generate d Referral 02/29/2024 03/30/2025 1 1 Specialty Diagnoses / Procedures Referred By [facility] t Referred To Contact CT IMAGING Diagnoses 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) Procedures CT CHEST W IVCON DIAGNOSTIC COMPUTED TOMOGRAPHY THORAX W/CONTRAST Js Cruz, DO [address] [place] [address] [place] [address] Reason Comments Sales Trainer - Other Schedule Specialty Diagnoses / Procedures Referred By [facility] t Referred To Contact CT IMAGING Diagnoses Malignant neoplasm of both ovaries (HCC) Carcinomatosis (HCC) Procedures CT CHEST W IVCON DIAGNOSTIC COMPUTED TOMOGRAPHY THORAX W/CONTRAST Kasi Welch, CERTIFIED ORTHOTIST/PEDORTHIST.REGIONAL WILDLIFE AGENT [address] [place] [address] [place] [address] Referral ID Status Reason Start Date Expiration Date V isits Requested Visits Authorized [id number] Closed Auto-Generate d Referral 06/07/2024 07/07/2025 1 1 Specialty Diagnoses / Procedures Referred By [facility] t Referred To Contact CT IMAGING Diagnoses Malignant neoplasm of both ovaries (HCC) Carcinomatosis (HCC) Procedures CT CHEST W IVCON DIAGNOSTIC COMPUTED TOMOGRAPHY THORAX W/CONTRAST Kasi Welch, HECTOR.REGIONAL WILDLIFE AGENT [address] [place] [address] 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) Procedures CT CHEST W IVCON DIAGNOSTIC COMPUTED TOMOGRAPHY THORAX W/CONTRAST Js Cruz, [address] [place] [address] Phone: tel: fax: [place] [phone] Referral ID Status Reason Start Date Expiration Date Visits Requested Visits Authorized [id number] Authorized Auto-Generat ed Referral 07/26/2024 08/25/2025 24 24 Reason Comments Consult Specialty Diagnoses / Procedures Referred By [facility] Referred To Contact General Surgery Diagnoses Hemorrhoids, unspecified hemorrhoid type Procedures CONSULT TO GENERAL SURGERY OFFICE/OUTPATIENT [facility] 60 MINUTES Js Cruz DO [address] [place] [address] Phone: tel: fax: Referral ID Status Reason Start Date Expiration Date V isits Requested Visits Authorized [id number] Closed PCP Requested Referral 07/09/2024 07/07/2025 1 1 Reason Comments Information Reason Comments Appointment Reason Comments avs 2/11 Reason Comments Sales Trainer - Other Chemotherapy Ed ucation Reason Onset Date Comments SPP Oral Oncology/hematology - Treatment Referra l 08/02/2024 Lynparza 150 mg Insurance Authorization 08/02/2024 KENIA reyez Specialty Diagnoses / Procedures Referred By [facility] Referred To Contact Diagnoses 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) Js Cruz, DO [address] [facility] [place] [address] Phone: tel: fax: Js Cruz, DO [address] [place] [address] Phone: tel: fax: Referral ID Status Reason Start Date Expiration Date V isits Requested Visits Authorized [id number] Authorized 08/03/2024 11/01/2024 99 99 Reason Comments Sales Trainer - Other C1D1 Post Treat ment Call (shirley) Reason Comments Gastroesophageal Reflux Reason Onset Date Comments Transition Of Care 08/15/2024 TCM Initial O utreach Reason Comments Sales Trainer - Other Hospital Discha rge Reason Comments Lynparza Patient Assistance Reason Onset Date Comments Transition Of Care 08/24/2024 TCM follow up Reason Comments Sales Trainer - Other Oral Anti-Cance r Agents Specialty Diagnoses / Procedures Referred By [facility] Referred To Contact CT IMAGING Diagnoses 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) Procedures CT CHEST W IVCON DIAGNOSTIC COMPUTED TOMOGRAPHY THORAX W/CONTRAST Js Cruz, DO [address] [place] [address] Phone: tel: fax: [place] [address] Referral ID Status Reason Start Date Expiration Date V isits Requested Visits Authorized [id number] Closed Auto-Generate d Referral 08/28/2024 09/27/2025 1 1 Reason Onset Date Comments Transition Of Care 08/31/2024 TCM follow up Reason Comments Sales Trainer - Other Received lynpar za Reason Comments Appointment Sales Trainer - Other Reason Comments Sales Trainer - Other Symptoms Reason Comments Sales Trainer - Other Oral Anti-Cance r Agents Follow-up Reason Comments Information Patient Update Reason Onset Date Comments Transition Of Care 10/06/2024 Hospital reac h in call Reason Comments Appointment Hospital Admission Reason Onset Date Comments Automobile Mechanic Motor- Other 10/16/2024 Chart Review Reason Comments Radiology US Specialty Diagnoses / Procedures Referred By [facility] t Referred To Contact US IMAGING Diagnoses Bilateral lower extremity edema 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) Procedures US DVT LOWER BILATERAL DUP-SCAN XTR VEINS COMPLETE BILATERAL STUDY Modesto Laird, CERTIFIED ORTHOTIST/PEDORTHIST.REGIONAL WILDLIFE AGENT [address] [place] [address] Phone: tel: fax: [place] [address] Referral ID Status Reason Start Date Expiration Date V isits Requested Visits Authorized [id number] Closed Auto-Generate d Referral 10/20/2024 11/19/2025 1 1 Specialty Diagnoses / Procedures Referred By [facility] t Referred To Contact Diagnoses Iron deficiency anemia due to chronic blood loss Iron malabsorption (HCC) Js Cruz, DO [address] 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) Malignant ascites (HCC) Procedures CT ABD/PEL W IVCON CT ABD & PELVIS W/CONTRAST Js Cruz, DO [address] [facility] [place] [address] Phone: tel: fax: [place] [phone] Referral ID Status Reason Start Date Expiration Date V isits Requested Visits Authorized [id number] Closed Auto-Generate d Referral 11/23/2024 12/23/2025 1 1 Goals (unrecognized section and content) Goals may be documented in a n alternate sectionGoals may be documented in an alternate sectionGoals may be documented in an alternate sectionGoals may be documented in an alternate section Inactive Administered Medications - up to 3 most recent administrations Administered Medications (un recognized section and content) Medication Order MAR Action Action Date Dose Rate Site iron sucrose iv piggyback 200 mg in NaCl 0.9% 100 mL (VENOFER) 200 mg, INTRAVENOUS, at 400 mL/hr, Administer over 15 Minutes, ONCE, 1 dose, On Wed09/10/23 at 1330, Please conduct a 30 minute post dose observation. Refrigerate New Bag/Syringe/Bottle 09/10/2023 1:13 PM EDT 200 mg 400 mL/hr Inactive Administered Medications - up to 3 most recent administrations Medication Order MAR Action Action Date Dose Rate Site iron sucrose iv piggyback 200 mg in NaCl 0.9% 100 mL (VENOFER) 200 mg, INTRAVENOUS, at 400 mL/hr, Administer over 15 Minutes, ONCE, 1 dose, On Wed09/13/23 at 0900, Please conduct a 30 minute post dose observation. Refrigerate New Bag/Syringe/Bottle 09/13/2023 9:05 AM EDT 200 mg 400 mL/hr Inactive Administered Medications - up to 3 most recent administrations Medication Order MAR Action Action Date Dose Rate Site iron sucrose iv piggyback 200 mg in NaCl 0.9% 100 mL (VENOFER) 200 mg, INTRAVENOUS, at 400 mL/hr, Administer over 15 Minutes, ONCE, 1 dose, On Wed09/21/23 at 1330, Please conduct a 30 minute post dose observation. Refrigerate New Bag/Syringe/Bottle 09/21/2023 1:25 PM EDT 200 mg 400 mL/hr Inactive Administered Medications - up to 3 most recent administrations Medication Order MAR Action Action Date Dose Rate Site iron sucrose iv piggyback 200 mg in NaCl 0.9% 100 mL (VENOFER) 200 mg, INTRAVENOUS, at 400 mL/hr, Administer over 15 Minutes, ONCE, 1 dose, On Wed09/23/23 at 1000, Please conduct a 30 minute post dose observation. Refrigerate New Bag/Syringe/Bottle 09/23/2023 9:50 AM EDT 200 mg 400 mL/hr Inactive Administered Medications - up to 3 most recent administrations Medication Order MAR Action Action Date Dose Rate Site acetaminophen 650 mg tab(s) (TYLENOL) 650 mg, ORAL, ONCE, 1 dose, On Wed09/29/23 at 0900, If ordered PRN for pain, patient/guardian may elect to receive this medication for higher pain levels INSTEAD of the opioid, if preferred: N/A Given 09/29/2023 9:15 AM EDT 650 mg dexAMETHasone 10 mg in NaCl 0.9% 50 mL (DECADRON) 10 mg, INTRAVENOUS, ONCE, 1 dose, On Wed09/29/23 at 0900, Refrigerate. New Bag/Syringe/Bottle 09/29/2023 9:07 AM EDT 10 mg diphenhydrAMINE 50 mg injection (BENADRYL) 50 mg, INTRAVENOUS, ONCE, 1 dose, On Wed09/29/23 at 0900 Given 09/29/2023 9:06 AM EDT 50 mg mirvetuximab soravtansine-gynx 326.4 mg in D5W 315 mL (ELAHERE) 326.4 mg (6 mg/kg/dose 54.4 kg Treatment plan adjusted weight), INTRAVENOUS, ONCE, 1 dose, On Wed09/29/23 at 0900, TOTAL VOLUME = 315 ML - exp 1700 09/29/23 (room temp) rate per protocol Hazardous Chemotherapy Drug: Use appropriate PPE. Antineoplastic Irritant. Administer with 0.2 micron filter. Total Volume. Rate/Dose Change 09/29/2023 10:45 AM EDT 290 mL/hr Rate/Dose Change 09/29/2023 10:13 AM EDT 174 mL /hr New Bag/Syringe/Bottle 09/29/2023 9:40 AM EDT 326.4 mg 5 8 mL/hr palonosetron 0.25 mg injection (ALOXI) 0.25 mg, INTRAVENOUS, ONCE, 1 dose, On Wed09/29/23 at 0900, Flush IV line with NS prior to and following administration. Given 09/29/2023 9:06 AM EDT 0.25 mg FOR RECORDS PERTAINING TO PATIENTS WHO ARE OR HAVE BEEN ENROLLED IN A CHEMICAL DEPENDENCY/SUBSTANCEABUSE PROGRAM, SOME INFORMATION MAY BE OMITTED. This clinical summary was aggregated from multiple sources. Caution should be exercised in using it in the provision of clinical care. This summary normalizes information from multiple sources, and as a consequence, information in this document may materially change the coding, format and clinical context of patient data. In addition, data may be omitted in some cases. CLINICAL DECISIONS SHOULD BE BASED ON THE PRIMARY CLINICAL RECORDS. [facility]. provides no warranty or guarantee of the accuracy or completeness of information in this document.
[2025-01-07 16:06] LABS: AST(SGOT) 34 U/L (<=31); Alanine Aminotransfer ALT/SGPT 36 U/L (<=34); Albumin, Serum 4.0 g/dL (3.4-4.8); Alkaline Phosphatase 119 U/L (35-104); Anion Gap 11 (5-15); BUN 22 mg/dL (4-19); BUN/Creat Ratio 31.2 RATIO (10-20); Calcium,Total 9.4 mg/dL (7.6-11.0); Carbon Dioxide 23.4 mmol/L (21.0-32.0); Chloride 104 mmol/L (98-108); Estimated Creatinine Clearance 47.77 ml/min (50-250); Globulin 3.2 g/dL (2.2-4.2); Glucose 120 mg/dL (70-99); Lipase 23 U/L (13-75); Potassium 3.9 mmol/L (3.3-5.1); Troponin T High Sensitivity 12 ng/L (<=14)
[2025-01-07 16:43] LABS: Red Blood Cells-Urine 0 SEEN /hpf (0-5)
[2025-01-07 16:57] LABS: Color, Urine Yellow (Yellow); Glucose, Dipstick Normal (Normal); Ketone-Dipstick Negative (Negative); Leukocyte Esterase-Dipstick Negative /ul (Negative); Nitrite-Dipstick Negative (Negative); Occult Blood-Urine Negative /ul (Negative); Protein-Dipstick 15 mg/dl (Negative); Specific Gravity, Urine 1.010 (1.002-1.030); Urine Bilirubin Dipstick Negative (Negative)
[2025-01-07 17:11] VITALS: BP 143/66; PULSE 65; RESP 14; O2SAT 99
[2025-01-07 17:25] LABS: Mucous, Urine 1+ /hpf (<or=2+)
[2025-01-07 17:28] LABS: Squamous Epithelial Cells - UA 0-5 SEEN /hpf (5-10)
--- NOTE | 2025-01-07 17:45 | RAD_ITS ---
PROCEDURE: ABDOMEN SINGLE VIEW (PORTABLE) 01/07/2025 REASON FOR EXAM: NG INSERTION TECHNIQUE: ABDOMEN SINGLE VIEW (PORTABLE) COMPARISON: 06/01/2023 FINDINGS: Bowel gas: Nonspecific, limited view Calcifications: None appreciated Bones: Unremarkable Other: Tip of NG tube is in the stomach directed near the greater curvature. Side port is in the mid stomach. RAD/Abdomen Single View (Portable) IMPRESSION: NG tube in good position. Reading [facility]
--- NOTE | 2025-01-07 18:01 | PCA ---
CALLED [facility]. PATIENT ACCEPTED AT 2295 JUST WAITING FOR A BED
[2025-01-07] MEDS: Oxymetazoline 0.05% 1 SPRAY SPRAY.BTL 2 SPRAY NASAL (18:08)
[2025-01-07 19:00] VITALS: BP 151/71; PULSE 67; RESP 16; O2SAT 100
[2025-01-07 20:27] VITALS: BP 161/64; PULSE 70; RESP 18; TEMP 37.2; O2SAT 100
[2025-01-07 21:00] VITALS: BP 158/95; PULSE 65; RESP 16; O2SAT 100
[2025-01-07 23:00] VITALS: BP 168/66; PULSE 75; RESP 18; O2SAT 100
== END 2025-01-07 23:36 | disposition other institution (70) ==
PROVIDERS: Emergency Provider Emergency Medicine; PCP Family Medicine; Referring Provider Emergency Medicine; Visit Provider Emergency Medicine
DX: K56.609 Unspecified intestinal obstruction, unspecified as to partial versus complete obstruction (principal); C18.9 Malignant neoplasm of colon, unspecified; Z85.3 Personal history of malignant neoplasm of breast; Z85.43 Personal history of malignant neoplasm of ovary; Z87.19 Personal history of other diseases of the digestive system; Z90.49 Acquired absence of other specified parts of digestive tract; Z79.899 Other long term (current) drug therapy; Z90.710 Acquired absence of both cervix and uterus
CPT/HCPCS: 36591; 74018; 74177; 80053; 81001; 83605; 83690; 84484; 85025; 93005; 96361; 96374; 96376; 99285; Q9967; A4216; J2405